=== PATIENT | female | born 1955 | race Caucasian/White ===

== ENCOUNTER → 2016-08-28 | Outpatient (CLI) | payer MEDICARE, OTHER ==
[2016-08-28 12:39] VITALS: BP 205/85; PULSE 109; RESP 16; TEMP 98.3
--- NOTE | 2016-08-28 12:48 | P.PN ---
Subjective This is follow-up visit for this patient with a history of severe and chronic low back pain secondary to lumbar degenerative disc disease, lumbar facet arthropathy, right sacroiliitis, failed back surgery syndrome and lumbar area, we have done interventional pain management injection, right sacroiliac joint steroid injection and diagnostic medial branch block, both procedure did not help the pain, and is currently on pain medications 1- misconduct and 30 mg every 8 hours 2- Neurontin 300 mg 3 times a day 3voltalance pham Patient reported that she had side effects from the Neurontin which is causing severe diarrhea every time she takes, , denies excessive drowsiness or sleepiness, denies suicidal ideation, and reports that the current pain medication is NOT helping To control the pain and improve activity of daily living Physical Examinations : 1-Constitutiona : Cooperative , not in acute distress . 2-HEENT : nech ; supple , no Lymphadenopathy , no Thyromegaly , normal thyroid size . eyes : no ptosis , no icterus, no photophobia . ENT : normal of hearing , normal oropharynx , no Thrush . 3- Respiratory : Chest clear to auscultations Bilaterally , no wheezing , no Rhonchi . 4- Cardiovascular : regular rate and rhythem , S1 , S2 , no S3 , no S4. 5- Gastrointestinal : abdomen soft no tenderness , bowel sounds positive all four quadrents , no organomegally . 6- Genitourinary : Defferred . 7- neurologic : Cranial nerve II to XII intact , no focal neurological deffecit . 8-psychatric : alert , oriented X 3 , appropriate affect , intact judgment and insight . 9-Lymphatic : no Lymphadenopathy . 10- musculoskeltal : exams of the cervical spine = motor strength normal bilateral upper extremities facet loading test cervical area positive. exams of the Lumber spine = motor strength lower extremities ,thigh and legs .5/5 deep tendon reflexes : normal Knee Jerk , normal ankle Jerk . lumber facet Loading Test positive strait leg raising test positive at 30 degree , RT ,LT , Fabere test positive RT and positive LT . Range of motion: Range of motion in flexion of the lumbar spine 30 degrees Range of motion range of motion of extension of the lumbar spine 10 Sever tenderness over the Sacroiliac joint on the Right , Assessment and plan = - Chronic low back pain secondary to lumbar degenerative disc disease , lumbar spondylosis with facet arthropathy without myelopathy , right sacroiliitis and failed back surgery syndrome and lumbar area, she had no benefit from the diagnostic medial branch block lumbar area and she had no benefit from the right sacroiliac joint steroid injection, she had side effects from the Neurontin which is causing diarrhea -chronic and current use of high-risk medication (Opioids). The patient was counseled about risk of opioid use, psychological risk associated with opioids and was orally counseled to not overuse , abuse , divert ,or sell dictations to take medications as prescribed only , and to restore medication in safe location , and patient counseled against driving while using narcotic medications, and also not to use alcohol or any illicit recreational drugs the patient's verbalized understanding that the lack of compliance will result in failure to renew narcotic prescription and possible discharge from the clinic - diagnoses, prognosis, and treatment options including but not limited to physical therapy, surgical interventions, interventional therapies and medication management including narcotics and adjuvant medication were discussed with the patient and all questions answered to the patient's satisfaction. -medication refile =1- MS Contin 30 mg every 8 hours dispense 90 with 1 refill 2-discontinue Neurontin 3-start patient on Lyrica 50 mg every 8 hours dispense 90 with 1 refill, 4-refill Voltaren gel Objective - Vital Signs Vital signs: Vital Signs Temp 98.3 F 08/28/16 12:30 Pulse 109 H 08/28/16 12:30 Resp 16 08/28/16 12:30 BP 205/85 08/28/16 12:30 Pulse Ox 96 08/28/16 12:30 Intake & Output 08/27/16 08/28/16 08/28/16 18:59 06:59 18:59 Weight 118.841 kg
== END | disposition home or self-care (01) ==
LOC: PNWHC3 11:52
PROVIDERS: ATTEND Specialist
DX: M51.36 Other intervertebral disc degeneration, lumbar region (principal); M47.816 Spondylosis without myelopathy or radiculopathy, lumbar region; M46.96 Unspecified inflammatory spondylopathy, lumbar region; M46.1 Sacroiliitis, not elsewhere classified; M96.1 Postlaminectomy syndrome, not elsewhere classified; Z79.891 Long term (current) use of opiate analgesic; K52.1 Toxic gastroenteritis and colitis; T42.6X5A Adverse effect of other antiepileptic and sedative-hypnotic drugs, initial encounter
CPT/HCPCS: 99211

== ENCOUNTER → 2016-10-04 | Outpatient (CLI) | payer MEDICARE, OTHER ==
--- NOTE | 2016-10-04 17:04 | MR ---
EXAMINATION TYPE: MR cervical spine wo con DATE OF EXAM ORDERED: 10/04/2016 1:38 PM HISTORY: M50.20 HNP. TECHNOLOGIST HISTORY AT TIME OF EXAM: Neck, and Rt. Shoulder pain COMPARISON: None. TECHNIQUE: Multiplanar, multiecho imaging of the cervical spine was obtained without contrast on a 1 .5 john magnet. FINDINGS: This examination is compromised by patient motion artifact. Prevertebral soft tissues are normal. There is a mild retrolisthesis of C5 on C6. Vertebral body height and alignment otherwise maintained. There are normal atlantoaxial relationships. There is normal craniocervical junction. Cord signal is normal. At C2-C3, no definite abnormality is seen. At C3-C4, there is bilateral intervertebral foraminal narrowing. There is a mild, diffuse disc displa cement. There is uncovertebral joint disease. The facets are unremarkable. At C4-C5, there is right-sided intervertebral foraminal narrowing due to uncovertebral joint disease. There is a diffuse disc displacement. The facets are unremarkable. At C5-C6, there is disc space loss and hypertrophic spondylosis. There is a mixed spondylitic bar pre sent posteriorly deforming the thecal sac with cord contact but without compression. There is severe intervertebral foraminal narrowing, greater on the right than the left. There is uncovertebral joint disease. The facets are unremarkable. At C6-C7, there is disc space loss. There is hypertrophic spondylosis. There is fatty endplate change . There is bilateral intervertebral foraminal narrowing. There is a mixed spondylitic bar present pos teriorly with cord contact but without compression. There is uncovertebral joint disease. The facets are unremarkable. At C7-T1, no definite abnormality is seen. IMPRESSION: 1. DIFFUSE DEGENERATIVE DISC DISEASE. 2. HYPERTROPHIC SPONDYLOSIS C5-6 AND C6-7. 3. MIXED SPONDYLITIC BAR IS PRESENT AT C5-6 AND C6-7 WITH CORD CONTACT WITHOUT COMPRESSION. 4. MULTILEVEL INTERVERTEBRAL FORAMINAL NARROWING.
== END | disposition home or self-care (01) ==
LOC: RADMRIMAIN 12:11
PROVIDERS: ATTEND Orthopaedic Surgery
DX: M99.71 Connective tissue and disc stenosis of intervertebral foramina of cervical region (principal); M50.30 Other cervical disc degeneration, unspecified cervical region; M47.812 Spondylosis without myelopathy or radiculopathy, cervical region
CPT/HCPCS: 36415; 72141; 80053; 80061; 82043

== ENCOUNTER → 2016-10-04 | Outpatient (CLI) | payer MEDICARE, OTHER ==
[2016-10-04 14:46] LABS: ALT 95 U/L (9-52); AST 47 U/L (14-36); Alkaline Phosphatase 195 U/L (38-126); Anion Gap 10 mmol/L; Blood Urea Nitrogen 19 mg/dL (7-17); Calcium 9.1 mg/dL (8.4-10.2); Carbon Dioxide 28 mmol/L (22-30); Chloride 97 mmol/L (98-107); Cholesterol 201 mg/dL (<200); Glucose 165 mg/dL (74-99); HDL Cholesterol 63 mg/dL (40-60); Non-African American GFR(MDRD) >60 (>60 ml/min/1.73 sqM); Potassium 5.1 mmol/L (3.5-5.1); Sodium 135 mmol/L (137-145); Total Bilirubin 0.5 mg/dL (0.2-1.3); Total Protein 7.2 g/dL (6.3-8.2); Triglycerides 150 mg/dL (<150)
== END | disposition home or self-care (01) ==
LOC: LABWHC1 13:57
PROVIDERS: ATTEND Internal Medicine Endocrinology, Diabetes & Metabolism
DX: E11.65 Type 2 diabetes mellitus with hyperglycemia (principal)
CPT/HCPCS: 36415; 80053; 80061; 82043

== ENCOUNTER → 2016-10-23 | Outpatient (CLI) | payer MEDICARE, OTHER ==
[2016-10-23 13:46] VITALS: BP 193/90; PULSE 78; RESP 20
--- NOTE | 2016-10-23 14:14 | P.PN ---
Progress Note - Text Patient returns for followup for chronic neck and back pain with radiation to right arm and left leg. Patient recently underwent MRI cervical spine, results of which are below. Patient continues on MSContin medications for pain with good relief. Patient denies adverse drug effects from medications. Today, pt denies new-onset weakness, bowel/bladder incontinence, or any other signs or symptoms of cauda equina syndrome. There are no signs of acute intoxication, and no indications of medication diversion or overuse. In addition to above, 13-point review of systems is also negative for chest pain , shortness of breath, changes in vision, changes in hearing, new onset weakness , abdominal pain, diarrhea, extreme fatigue, malaise, fever, skin changes, homicidal or suicidal ideation, or bowel or bladder incontinence. Vital Signs: Reviewed in EMR Gen: WDWN, AAOx3, NAD HEENT: NCAT, EOMI, hearing grossly normal Pulm: resp unlabored Abd: soft, NT, ND Neck: supple, trachea midline ROM in flexion cervical spine: reduced ROM in extension cervical spine: reduced Cervical paravertebral tenderness: + Cervical Facet tenderness: + R side Spurling's: + RUE Upper extremity: decreased major gifts director strength due to pain Neuro: CN II-XII grossly intact, muscle strength lower extremities PRESERVED Imaging: MRI cervical spine demonstrates bilateral intervertebral foraminal narrowing at the C3-C4 level with a mild diffuse disc displacement there is uncovertebral joint disease. At the C4-C5 level there is right-sided intervertebral foraminal narrowing due to onto uncovertebral joint disease there is a diffuse disc displacement. At the C5-C6 level there is disc space loss and hypertrophic spondylosis is a mixed spondylitic bar present posteriorly deforming the thecal sac with cord contact without compression Assessment: 1. lumbar spondylosis without myelopathy 2. cervical spondylosis without myelopathy 3. lumbar PLPS 4. morbid obesity Plan: 1. Explanation: Opioid and psychological risk scores were reviewed. Diagnoses , prognoses, and multiple treatment options including but not limited to physical therapy, interventional therapies, adjuvant medical therapies, narcotic medication therapies, and surgery were discussed with the patient and all questions were answered to the patient's satisfaction. 2. Opioid agreement: Patient has previously signed narcotic agreement, and was orally counseled to not overuse, abuse, divert, or cell medications, and to take them as prescribed by only 1 healthcare provider. The patient was also counseled to store opioid medications in a safe and preferably locked location. Patient was also counseled against driving or operating heavy equipment while using narcotic medications and also to not use alcohol or any illicit or recreational drugs. The patient verbalized understanding that lack of compliance with any of the above and likely result in failure to renew narcotic prescriptions, possible discharge from the clinic, and possible legal ramifications thereafter if indicated. 3. Counseling: The patient was counseled extensively on BODY MASS INDEX, EXERCISE. Specifically, the patient was instructed regarding the importance of weight control and exercise in the context of both chronic pain and overall health. 4. Procedures: R cervical MBB 5. Consultations: None 6. Investigations: None 7. Medications: MSContin 30 mg q8h #90 with one refill; added Zanaflex 8 mg # 90 with two refills 8. Disposition: f/u for procedure as scheduled PQRS measures: 1-Patient's medications are documented in the chart. 2-Tobacco use is negative 3-Patient has had a pneumococcal vaccine. 4-Advanced care planning discussed, patient unable to give. 5-Opioid contract signed with the patient. 6-Pain positive, follow-up visit or procedure scheduled 7-Patient's blood pressure measured and documented, and patient will follow up with the primary care due to hypertension. 8-Patient's weight was measured, and body mass index ABOVE the normal limits, and counseling was done. Patient instructed to follow up with PCP. 9-Patient WAS NOT identified as an unhealthy alcohol user.
== END | disposition home or self-care (01) ==
LOC: PNWHC3 13:20
PROVIDERS: ATTEND Anesthesiology
DX: G89.29 Other chronic pain (principal); M47.816 Spondylosis without myelopathy or radiculopathy, lumbar region; M47.812 Spondylosis without myelopathy or radiculopathy, cervical region; E66.01 Morbid (severe) obesity due to excess calories; M96.1 Postlaminectomy syndrome, not elsewhere classified; Z71.3 Dietary counseling and surveillance; Z79.891 Long term (current) use of opiate analgesic
CPT/HCPCS: 80307 ×2; G0463; 80346; 80364; 99211

== ENCOUNTER 2016-10-25 12:01 | Day surgery (SDC) | payer MEDICARE, OTHER ==
[~2016-10-25 12:01] MED LIST: LACTATED RINGERS 1,000 ML IV SCH
[2016-10-25] MEDS ORDERED: LIDOCAINE 1% 20 ML VIAL (10MG/ML) FOR IV START INTRADERMA ONE (13:22)
[2016-10-25 13:26] VITALS: RESP 20; TEMP 98
[2016-10-25 13:28] LABS: Glucose,Whole Blood 151 mg/dL (75-99)
[2016-10-25] MEDS ORDERED: fentaNYL (PF) 50 MCG/ML 2 ML AMP ONE (13:39)
[2016-10-25] MEDS ORDERED: MIDAZOLAM 2 MG/2 ML VIAL ONE (13:39)
[2016-10-25] MEDS ORDERED: DEXAMETHASONE SOD PHOS (MDV) 100 MG/10 ML VIAL ONE (13:39)
[2016-10-25] MEDS ORDERED: BUPIVACAINE (PF) 0.25% 30 ML VIAL ONE (13:39)
--- NOTE | 2016-10-25 14:12 | P.PCN ---
Date of Procedure: 10/25/16 Surgeon: Fredi Oh Pathology: none sent Condition: stable Disposition: PACU Description of Procedure: PREOPERATIVE DIAGNOSIS: Cervical spondylosis without myelopathy, cervicogenic headache. POSTOPERATIVE DIAGNOSIS: same PROCEDURES: Diagnostic right C3, C4, C5 medial branch with fluoroscopic guidance ANESTHESIA: Local with 1% lidocaine; conscious sedation EBL: Minimal PROCEDURE INDICATION: This is a patient with neck pain and headaches secondary to cervical arthropathy unresponsive to more conservative treatments. No use of blood thinners. PROCEDURE DESCRIPTION / TECHNIQUE: The patient was seen and identified in the preoperative area. Risks, benefits, complications, and alternatives were discussed with the patient (including but not limited to incomplete pain relief , bleeding, infection, nerve damage, and allergies to medications), the patient agreed to proceed with the procedure and signed the consent after all questions were answered. IV was started. Vital signs remained stable throughout the procedure. Patient was taken to the OR and time out was completed. The patient was placed in the prone position on the procedure table. A pillow was placed under the patients chest to increase the cervical interlaminar space. The cervical area was prepped and draped in the usual sterile fashion. Critical pause was taken. Vital signs were closely monitored during the procedure. Conscious sedation was used during the procedure to decrease patients anxiety. Using cross-table lateral fluoroscopy, the centroid of the trapezoid of right C3 , was identified, marked, and localized with 1% lidocaine. Subsequently, a 25 G spinal needle was advanced guided by fluoroscopy to the centroid of the trapezoid of C3. Needle tip position was confirmed at the centroid of the trapezoids of C3 with anteroposterior fluoroscopy. Subsequently, 1 ml of a combination of 10 mg Decadron and 6 ml of preservative-free Bupivacaine 0.5% was injected after negative aspiration for blood and CSF. Needle was then removed intact the same procedure was repeated at the right C4 and C5 levels. COMPLICATIONS: No acute complications. COMMENTS: DISPOSITION / PLANS: The patient was placed in a supine position and transferred to the recovery area in a stable condition for observation and was discharged from the recovery room after meeting discharge criteria. Home discharge instructions given to the patient by the staff. The patient was reexamined prior to discharge. The patient will schedule a follow up cervical MBB in 3-4 weeks. Of note, patient's BP was extremely elevated today (>220 systolic) even before start of procedure. I told patient that she will need to have this SBP < 180 or DBP < 120 in order for us to repeat the MBB.
[2016-10-25] MEDS ORDERED: KETOROLAC 30 MG/ML 1 ML VIAL IVP STA (14:14)
[2016-10-25] MEDS ORDERED: IV FLUID CONTINUATION 1,000 ML IV ONE (14:17)
[2016-10-25 14:31] LABS: Glucose,Whole Blood 177 mg/dL (75-99)
[2016-10-25 15:05] VITALS: BP 172/90; PULSE 80
--- NOTE | 2016-10-25 15:26 | FL ---
Fluoroscopy INDICATION: Pain FINDINGS: Fluoroscopy time: 29 seconds. Images obtained: 3. IMPRESSIONS: 1. Documentation of fluoroscopy.
== END 2016-10-25 15:27 | disposition home or self-care (01) ==
LOC: ORPAIN 12:01
PROVIDERS: ATTEND Anesthesiology
DX: G89.29 Other chronic pain (principal); M47.812 Spondylosis without myelopathy or radiculopathy, cervical region; M46.92 Unspecified inflammatory spondylopathy, cervical region; Z79.891 Long term (current) use of opiate analgesic
CPT/HCPCS: 64490; 64491; 64492; 99152; J2250; J3010; J1885; J1100

== ENCOUNTER 2016-12-18 06:20 | Inpatient (IN) | payer MEDICARE, OTHER ==
[2016-12-18] MEDS ORDERED: ONDANSETRON 4 MG/2 ML VIAL IVP STA ×2 (06:23→09:05)
[2016-12-18] MEDS ORDERED: SODIUM CHLORIDE 0.9% 1,000 ML IV STA ×2 (06:23)
[2016-12-18] MEDS ORDERED: MORPHINE SULFATE 4 MG/ML SYRINGE IVP STA ×2 (06:51→11:51)
[2016-12-18 06:53] LABS: Basophils # (A) 0.1 k/uL (0-0.2); Basophils % (A) 1 %; CH 28.2; CHCM 34.5; Eosinophils # (A) 0.1 k/uL (0-0.7); Eosinophils % (A) 1 %; HCT 47.2 % (34.0-46.0); HDW 2.88; HGB 16.2 gm/dL (11.4-16.0); Luc % (Auto) 1; Lymphocytes # (A) 1.7 k/uL (1.0-4.8); Lymphocytes % (A) 13 %; MCH 28.2 pg (25.0-35.0); MCHC 34.3 g/dL (31.0-37.0); Mean Platelet Volume 7.8; Monocytes # (A) 0.5 k/uL (0-1.0); Monocytes % (A) 4 %; Neutrophils # (A) 11.2 k/uL (1.3-7.7); Neutrophils % (A) 81 %; RBC 5.75 m/uL (3.80-5.40); RDW 13.5 % (11.5-15.5); WBC 13.7 k/uL (3.8-10.6); WBC (Perox) 13.43
[2016-12-18 06:54] LABS: Luc # (Auto) 0.19
--- NOTE | 2016-12-18 06:56 | ED ---
ENT HPI - General Source: patient, EMS, RN notes reviewed Mode of arrival: EMS Limitations: no limitations - History of Present Illness MD complaint: sore throat, other <Dany Torre - Last Filed: 12/18/16 06:56> <José Miguel Coker - Last Filed: 12/18/16 11:46> - General Chief complaint: ENT Stated complaint: Vomiting Blood Time Seen by Provider: 12/18/16 06:20 - History of Present Illness Initial comments: This is a 61-year-old female with a history of having anterior cervical fusion on the left side done 6 days ago who states she had the onset last night around 9 PM of multiple episodes of nausea and vomiting. She came in by EMS due to a sore throat and the feeling that there is a foreign body in his throat also she threw up some blood. She states that the feeling of a foreign body in her throat and the sore throat started after the multiple episodes of nausea vomiting. She denies any fever chills or sweats no abdominal pain. She does have chronic pain in her back which she states it escalated because of nausea vomiting. She has no focal weakness no cough or phlegm production. No reported dysuria. No diarrhea or constipation. (Dany Torre) - Related Data Home Medications Medication Instructions Recorded Confirmed Butalb/Acetaminophen/Caffeine 1 tab PO BID PRN 04/11/14 12/18/16 [Fioricet 50-325-40 mg Tablet] INSULIN LISPRO (humaLOG) [humaLOG See Protocol SQ AC-TID PRN 04/14/14 12/18/16 (formulary)] Budesonide-Formot 160-4.5 Mcg 2 puff INHALATION BID PRN 10/25/15 12/18/16 [Symbicort 160-4.5 Mcg Inhaler] Lisinopril [Zestril] 40 mg PO DAILY 04/04/16 12/18/16 Diazepam [Valium] 10 mg PO BID PRN 05/02/16 12/18/16 Insulin Glargine [Lantus] 20 unit SQ HS 05/02/16 12/18/16 Hydrocodone/Acetaminophen [[place] 1 tab PO DAILY PRN 12/18/16 12/18/16 10-325] tiZANidine [Zanaflex] 4 mg PO BID PRN 12/18/16 12/18/16 Previous Rx's Medication Instructions Recorded Morphine Sulfate [Ms Contin] 30 mg PO Q8HR #90 tab 10/23/16 Allergies Allergy/AdvReac Type Severity Reaction Status Date / Time ibuprofen [From Motrin] AdvReac Abdominal Verified 12/18/16 07:27 Pain and vomiting Review of Systems ROS Other: All systems not noted in ROS Statement are negative. <NichoDany - Last Filed: 12/18/16 06:56> ROS Other: All systems not noted in ROS Statement are negative. <José Miguel Coker - Last Filed: 12/18/16 11:46> ROS Statement: Those systems with pertinent positive or pertinent negative responses have been documented in the HPI. Past Medical History Past Medical History: Asthma, COPD, Diabetes Mellitus, GERD/Reflux, Hyperlipidemia, Hypertension Additional Past Medical History / Comment(s): Chronic back pain, MIGRAINE HEADACHES History of Any Multi-Drug Resistant Organisms: MRSA Date of last positivie culture/infection: 2011 MDRO Source:: UNK Past Surgical History: Appendectomy, Back Surgery, Cholecystectomy, Orthopedic Surgery Additional Past Surgical History / Comment(s): Fusion and kane down back. Left shoulder replacement, right knee replacement, plate in right wrist, left thumb joint repair, right carpal tunnel repair, right shoulder scope, Past Anesthesia/Blood Transfusion Reactions: No Reported Reaction Past Psychological History: Bipolar Smoking Status: Former smoker Past Alcohol Use History: None Reported Additional Past Alcohol Use History / Comment(s): SMOKED 1PPD . STARTED SMOKING AGE 17 AND QUIT 1981. SMOKED FOR APPROX 10 YEARS. Past Drug Use History: None Reported - Past Family History Brother(s) Family Medical History: Cancer Father Family Medical History: Cancer Additional Family Medical History / Comment(s): throat, colon, liver, and brain cancer. Mother Family Medical History: Myocardial Infarction ([place]) Additional Family Medical History / Comment(s): at 54 of [place]. <NichoDany - Last Filed: 12/18/16 06:56> General Exam Limitations: no limitations General appearance: alert, anxious, in distress ENT exam: Present: mucous membranes dry, other (There is posterior pharyngeal erythema with some edema seen with erythema to the uvula) Neck exam: Present: other (There is a healing surgical incision in the left anterior neck laterally consistent with an anterior approach to his cervical fusion) Cardiovascular Exam: Present: normal rhythm, tachycardia GI/Abdominal exam: Present: soft, other (Obese abdomen) Rectal exam: Present: deferred Neurological exam: Present: alert, oriented X3, CN II-XII intact. Absent: motor sensory deficit Psychiatric exam: Present: anxious Skin exam: Present: warm, dry, intact, normal color, other (Surgical changes as noted above no evidence of any infection or discharge or dehiscence). Absent: rash <Dany Torre - Last Filed: 12/18/16 06:56> <José Miguel Coker - Last Filed: 12/18/16 11:46> - General Exam Comments Initial Comments: Is a well-developed obese female who is awake alert oriented 3 (Dany Torre) Course <Dany Torre - Last Filed: 12/18/16 06:56> <José Miguel Coker - Last Filed: 12/18/16 11:46> Vital Signs 12/18/16 12/18/16 12/18/16 06:21 09:17 09:48 Temperature 97.7 F Pulse Rate 116 H 108 H 105 H Respiratory 20 18 20 Rate Blood Pressure 200/116 158/76 138/69 O2 Sat by Pulse 96 92 L 92 L Oximetry 12/18/16 12/18/16 12/18/16 10:16 10:46 11:09 Temperature 97.5 F L Pulse Rate 104 H 100 101 H Respiratory 18 Rate Blood Pressure 135/63 139/71 151/65 O2 Sat by Pulse 92 L 93 L 92 L Oximetry - Reevaluation(s) Reevaluation #1: 12/18/16 06:56 The patient's care will be endorsed to Dr. Massey at our shift change. He will make the final disposition (Dany Torre) Medical Decision Making - Lab Data Result diagrams: 12/18/16 06:40 <Dany Torre - Last Filed: 12/18/16 06:56> - Lab Data Result diagrams: 12/18/16 06:40 12/18/16 06:40 <José Miguel Coker - Last Filed: 12/18/16 11:46> - Medical Decision Making I spoke with the radiologist he did not believe this mass in the hypopharynx was at all related to surgery. (José Miguel Coker) - Lab Data Lab Results 12/18/16 12/18/16 12/18/16 Range/Units 06:40 06:40 06:40 WBC 13.7 H (3.8-10.6) k/uL RBC 5.75 H (3.80-5.40) m/uL Hgb 16.2 H (11.4-16.0) gm/dL Hct 47.2 H (34.0-46.0) % MCV 82.0 (80.0-100.0) fL MCH 28.2 (25.0-35.0) pg MCHC 34.3 (31.0-37.0) g/dL RDW 13.5 (11.5-15.5) % Plt Count 222 (150-450) k/uL Neutrophils % 81 % Lymphocytes % 13 % Monocytes % 4 % Eosinophils % 1 % Basophils % 1 % Neutrophils # 11.2 H (1.3-7.7) k/uL Lymphocytes # 1.7 (1.0-4.8) k/uL Monocytes # 0.5 (0-1.0) k/uL Eosinophils # 0.1 (0-0.7) k/uL Basophils # 0.1 (0-0.2) k/uL PT 10.6 (9.0-12.0) sec INR 1.1 (<1.1) APTT 22.5 (22.0-30.0) sec Sodium 139 (137-145) mmol/L Potassium 4.5 (3.5-5.1) mmol/L Chloride 96 L (98-107) mmol/L Carbon Dioxide 29 (22-30) mmol/L Anion Gap 14 mmol/L BUN 14 (7-17) mg/dL Creatinine 0.94 (0.52-1.04) mg/dL Est GFR (MDRD) Af Amer >60 (>60 ml/min/1.73 sqM) Est GFR (MDRD) Non-Af >60 (>60 ml/min/1.73 sqM) Glucose 298 H (74-99) mg/dL Calcium 9.6 (8.4-10.2) mg/dL Total Bilirubin 0.7 (0.2-1.3) mg/dL AST 22 (14-36) U/L ALT 42 (9-52) U/L Alkaline Phosphatase 215 H (38-126) U/L Total Protein 7.4 (6.3-8.2) g/dL Albumin 4.2 (3.5-5.0) g/dL Amylase 98 (30-110) U/L Lipase 89 (23-300) U/L Urine Color Urine Appearance (Clear) Urine pH (5.0-8.0) Ur Specific [place] (1.001-1.035) Urine Protein (Negative) Urine Glucose (UA) (Negative) Urine Ketones (Negative) Urine Blood (Negative) Urine Nitrite (Negative) Urine Bilirubin (Negative) Urine Urobilinogen (<2.0) mg/dL Ur Leukocyte Esterase (Negative) Urine RBC (0-5) /hpf Urine WBC (0-5) /hpf Ur Squamous Epith Cells (0-4) /hpf Urine Mucus (None) /hpf 12/18/16 Range/Units 07:20 WBC (3.8-10.6) k/uL RBC (3.80-5.40) m/uL Hgb (11.4-16.0) gm/dL Hct (34.0-46.0) % MCV (80.0-100.0) fL MCH (25.0-35.0) pg MCHC (31.0-37.0) g/dL RDW (11.5-15.5) % Plt Count (150-450) k/uL Neutrophils % % Lymphocytes % % Monocytes % % Eosinophils % % Basophils % % Neutrophils # (1.3-7.7) k/uL Lymphocytes # (1.0-4.8) k/uL Monocytes # (0-1.0) k/uL Eosinophils # (0-0.7) k/uL Basophils # (0-0.2) k/uL PT (9.0-12.0) sec INR (<1.1) APTT (22.0-30.0) sec Sodium (137-145) mmol/L Potassium (3.5-5.1) mmol/L Chloride (98-107) mmol/L Carbon Dioxide (22-30) mmol/L Anion Gap mmol/L BUN (7-17) mg/dL Creatinine (0.52-1.04) mg/dL Est GFR (MDRD) Af Amer (>60 ml/min/1.73 sqM) Est GFR (MDRD) Non-Af (>60 ml/min/1.73 sqM) Glucose (74-99) mg/dL Calcium (8.4-10.2) mg/dL Total Bilirubin (0.2-1.3) mg/dL AST (14-36) U/L ALT (9-52) U/L Alkaline Phosphatase (38-126) U/L Total Protein (6.3-8.2) g/dL Albumin (3.5-5.0) g/dL Amylase (30-110) U/L Lipase (23-300) U/L Urine Color Yellow Urine Appearance Clear (Clear) Urine pH 6.5 (5.0-8.0) Ur Specific [place] 1.019 (1.001-1.035) Urine Protein 1+ H (Negative) Urine Glucose (UA) Trace H (Negative) Urine Ketones 1+ H (Negative) Urine Blood Negative (Negative) Urine Nitrite Negative (Negative) Urine Bilirubin Negative (Negative) Urine Urobilinogen 2.0 (<2.0) mg/dL Ur Leukocyte Esterase Negative (Negative) Urine RBC <1 (0-5) /hpf Urine WBC 2 (0-5) /hpf Ur Squamous Epith Cells 5 H (0-4) /hpf Urine Mucus Rare H (None) /hpf Disposition <Dany Torre - Last Filed: 12/18/16 06:56> Time of Disposition: 11:44 <José Miguel Coker - Last Filed: 12/18/16 11:46> Clinical Impression: Mass of hypopharynx, Nausea & vomiting Disposition: ADMITTED IP TO THIS HOSP Referrals: Scarlet Dior MD [Primary Care Provider] - 1-2 days
[2016-12-18 07:03] LABS: INR 1.1 (<1.1); Prothrombin Time 10.6 sec (9.0-12.0)
[2016-12-18 07:05] LABS: ALT 42 U/L (9-52); AST 22 U/L (14-36); Alkaline Phosphatase 215 U/L (38-126); Amylase 98 U/L (30-110); Anion Gap 14 mmol/L; Blood Urea Nitrogen 14 mg/dL (7-17); Calcium 9.6 mg/dL (8.4-10.2); Carbon Dioxide 29 mmol/L (22-30); Chloride 96 mmol/L (98-107); Glucose 298 mg/dL (74-99); Non-African American GFR(MDRD) >60 (>60 ml/min/1.73 sqM); Potassium 4.5 mmol/L (3.5-5.1); Sodium 139 mmol/L (137-145); Total Bilirubin 0.7 mg/dL (0.2-1.3); Total Protein 7.4 g/dL (6.3-8.2)
[2016-12-18 07:11] LABS: Partial Thromboplastin Time 22.5 sec (22.0-30.0)
--- NOTE | 2016-12-18 07:30 | XR ---
EXAMINATION TYPE: XR chest 2V DATE OF EXAM: 12/18/2016 7:10 AM COMPARISON: Prior chest x-ray September 05, 2015. HISTORY: Vomiting and pain. TECHNIQUE: Frontal and lateral views of the chest are obtained. FINDINGS: Diminished inspiration is seen. There is no focal air space opacity, pleural effusion, or p neumothorax seen. The cardiac silhouette size is upper limits of normal. Anterior fusion plate lower cervical spine is partially imaged new from prior. Metallic hardware left shoulder level is partiall y imaged. IMPRESSION: Poor inspiration without suspicious acute pulmonary process.
--- NOTE | 2016-12-18 07:32 | XR ---
EXAMINATION TYPE: XR KUB DATE OF EXAM: 12/18/2016 7:10 AM CLINICAL HISTORY: Pain and vomiting. TECHNIQUE: 2 supine KUB images of the abdomen are obtained COMPARISON: CT abdomen and pelvis April 04, 2016 FINDINGS: Gas is seen in nondistended stomach. Scattered gas is seen in non-distended small bowel lo ops. Gas and fecal material is seen in non-distended colon. Cholecystectomy clips are redemonstrated . Surgical changes lumbosacral junction are again seen. Spurring upper lumbar spine is redemonstrated . IMPRESSION: Overall nonobstructive bowel gas pattern.
--- NOTE | 2016-12-18 07:34 | XR ---
EXAMINATION TYPE: XR soft tissue neck DATE OF EXAM: 12/18/2016 7:10 AM COMPARISON: NONE HISTORY: Recent neck surgery with dysphagia. TECHNIQUE: 2 views of soft tissue neck are acquired. FINDINGS: There is anterior fusion plate C5-C7 levels with high dense disc material. There is abnorm al prevertebral soft tissue swelling at 27 mm, nonspecific finding could reflect edema related to rec ent surgery. Region of epiglottis and vallecula appears within normal limits. No suspicious narrowing of subglottic airway is seen on frontal view. IMPRESSION: Abnormal soft tissue swelling mid to lower cervical levels noted, nonspecific finding af ter recent surgery. Airway appears patent.
[2016-12-18 07:58] LABS: Appearance,Urine Clear (Clear); Bilirubin,Urine Negative (Negative); Glucose,Urine (UA) Trace (Negative); Ketones,Urine 1+ (Negative); Leukocyte Esterase,Urine Negative (Negative); Mucus,Urine Rare /hpf; Nitrite,Urine Negative (Negative); PH, Urine 6.5 (5.0-8.0); Particle Count 4315; Protein,Urine 1+ (Negative); RBC,Urine <1 /hpf (0-5); Specific Gravity,Urine 1.019 (1.001-1.035); Squamous Epithelial Cell,Urine 5 /hpf (0-4); UA Billing (MACRO vs. MICRO) MICRO; WBC,Urine 2 /hpf (0-5)
[2016-12-18] MEDS ORDERED: RX INFO: IV CONTRAST WAS GIVEN 1 EACH MISC MISCELLANE PRN (09:02)
[2016-12-18] MEDS ORDERED: LORazepam 2 MG/ML SYRINGE IV STA (09:05)
[2016-12-18] MEDS ORDERED: HYDROmorphone 1 MG/ML 1 ML SYRINGE IVP STA (09:05)
--- NOTE | 2016-12-18 10:51 | CT ---
EXAMINATION TYPE: CT neck chest w con DATE OF EXAM: 12/18/2016 10:03 AM COMPARISON: Correlation CT cervical spine 05/14/2014 HISTORY: [id number] female with pain and hemoptysis TECHNIQUE: Contiguous axial scanning of the neck and chest performed with IV Contrast, patient inject ed with 100 ml mL of Omnipaque 300. Coronal/sagittal reconstructions reconstructions performed. CT DLP: 1710.10 mGycm Automated exposure control for dose reduction was used. FINDINGS: NECK: Visualized intracranial structures, orbits and globes and mastoid air cells appear clear. There is a polyp or mucosal retention cyst within the right maxillary sinus. Some layering secretions within the posterior nasopharynx. Otherwise, the nasopharynx appears clear. The oropharynx appears clear. However, there is irregular and heterogeneously enhancing soft tissue measuring 2.0 x 1.4 cm in the h ypopharynx extending along the right aryepiglottic fold and mucosal space, effacing the right pirifor m sinus. This extends to the level of the false vocal folds. The vocal fold themselves appear symmetr ic. The tracheal column is clear.. The epiglottis is within normal limits. There is hardware artifact from C5 through C7 ACDF. Thyroid gland, submandibular glands, and parotid glands appear satisfactory. Scattered small cervical lymph nodes are present on both sides of the neck. No enlarged lymph nodes a re identified. CHEST: The heart is normal size without pericardial effusion. Aorta shows conventional arterial vessel branc olvin anatomy and normal caliber. No thoracic lymphadenopathy by CT size criteria. Evaluation of the lungs shows dependent areas of atelectasis. No consolidation or pleural effus ion. There is mild diffuse bronchial wall thickening noted. Visualized upper abdomen show small hiatal hernia and low attenuation of the hepatic parenchyma sugge sting fatty infiltration. There are cholecystectomy clips. Bones: Endplate spondylosis throughout the spine. ACF hardware. Left shoulder replacement. IMPRESSION: 1. A 2 CM IRREGULAR MASS IN THE RIGHT HYPOPHARYNX JUST ABOVE THE LARYNX. SUSPICIOUS FOR CARCINOMA. NO SUSPICIOUS LYMPHADENOPATHY SEEN. 2. MILD DIFFUSE BRONCHIAL WALL THICKENING COULD REPRESENT BRONCHITIS OR CHRONIC ASTHMA. 3. SMALL HIATAL HERNIA AND HEPATIC STEATOSIS.
[2016-12-18] MEDS ORDERED: SODIUM CHLORIDE 0.9% 1,000 ML IV ONE (11:44)
[2016-12-18] MEDS ORDERED: ONDANSETRON 4 MG/2 ML VIAL IVP PRN (11:49)
[2016-12-18] MEDS ORDERED: MORPHINE SULFATE 4 MG/ML SYRINGE IVP PRN (11:51)
[2016-12-18 15:12] VITALS: BMI 42.3
[2016-12-18] MEDS: MORPHINE SULFATE 2 MG/ML SYRINGE IVP PRN ×2 (15:18→20:01)
--- NOTE | 2016-12-18 15:25 | P.GSCN ---
History of Present Illness Consult date: 12/18/16 Reason for Consult: Swelling in throat Requesting physician: Santhosh Nguyen History of present illness: This is a 61-year-old white female who underwent a left cervical disc surgery 6 days ago. She did well after surgery but this last evening started having some vomiting around 7:30 PM. She developed nausea and vomiting and continued to vomit intermittently until 5 in the morning. She was brought to the emergency room at 5 in the morning where she was admitted. She didn't notice a speckling of some blood after the vomiting. Prior to this episode she had no dysphasia. She did have a mild sore throat. Her voice is minimally hoarse. I've been asked to consult regarding her persistent swelling found on CAT scan to rule out malignancy. She denies otherwise any symptoms of dysphagia hemoptysis etc. other than during the episode of severe nausea and vomiting. She has no foreign body sensation in the throat she does not aspirate. She doesn't need to reflux disease. Her cervical disc surgery was done at [facility] 6 days ago. She is been somewhat noncompliant wearing her cervical collar. She is still having some pain between her shoulder blades she states. She does have a history of smoking but quit over 31 years ago. Denies any significant alcohol consumption recently. Review of Systems - Constitutional Denies anorexia - EENT Eyes: denies blurred vision, denies bulging eye, denies discharge, denies pain Ears: bilateral: decreased hearing, deny: ear discharge, earache Ears, nose, mouth and throat: Reports ant. neck pain, Denies bleeding gums, Denies dental pain, Denies nasal congestion, Denies neck fullness/pressure, Denies swelling in mouth - Cardiovascular Denies chest pain, Denies claudication - Respiratory Reports congestion, Denies cough, Denies cough with sputum - Gastrointestinal Denies belching, Denies bloating, Denies BRBPR - Genitourinary Genitourinary: Denies flank pain, Denies hematuria, Denies kidney stones Menstruation: Reports as per HPI - Musculoskeletal Reports neck stiffness - Integumentary Denies acne, Denies boils - Neurological Denies aphasia, Denies ataxia Past Medical History Past Medical History: Asthma, COPD, Diabetes Mellitus, GERD/Reflux, Hyperlipidemia, Hypertension Additional Past Medical History / Comment(s): Chronic back pain, MIGRAINE HEADACHES History of Any Multi-Drug Resistant Organisms: MRSA Year Discovered:: 2011 MDRO Source:: UNK Past Surgical History: Appendectomy, Back Surgery, Cholecystectomy, Orthopedic Surgery Additional Past Surgical History / Comment(s): Fusion and kane down back. Left shoulder replacement, right knee replacement, plate in right wrist, left thumb joint repair, right carpal tunnel repair, right shoulder scope, cervical fusion Past Anesthesia/Blood Transfusion Reactions: No Reported Reaction Past Psychological History: Bipolar Smoking Status: Former smoker Past Alcohol Use History: None Reported Additional Past Alcohol Use History / Comment(s): SMOKED 1PPD . STARTED SMOKING AGE 17 AND QUIT 1981. SMOKED FOR APPROX 10 YEARS. Past Drug Use History: None Reported - Past Family History Brother(s) Family Medical History: Cancer, Myocardial Infarction ([place]) Father Family Medical History: Cancer Additional Family Medical History / Comment(s): throat, colon, liver, and brain cancer. Mother Family Medical History: Myocardial Infarction ([place]) Additional Family Medical History / Comment(s): at 54 of [place]. Medications and Allergies Home Medications Medication Instructions Recorded Confirmed Type Butalb/Acetaminophen/Caffeine 1 tab PO BID PRN 04/11/14 12/18/16 History [Fioricet 50-325-40 mg Tablet] INSULIN LISPRO (humaLOG) [humaLOG See Protocol SQ AC-TID PRN 04/14/14 12/18/16 History (formulary)] Budesonide-Formot 160-4.5 Mcg 2 puff INHALATION BID PRN 10/25/15 12/18/16 History [Symbicort 160-4.5 Mcg Inhaler] Lisinopril [Zestril] 40 mg PO DAILY 04/04/16 12/18/16 History Diazepam [Valium] 10 mg PO BID PRN 05/02/16 12/18/16 History Insulin Glargine [Lantus] 20 unit SQ HS 05/02/16 12/18/16 History Hydrocodone/Acetaminophen [[place] 1 tab PO DAILY PRN 12/18/16 12/18/16 History 10-325] tiZANidine [Zanaflex] 4 mg PO BID PRN 12/18/16 12/18/16 History Allergies Allergy/AdvReac Type Severity Reaction Status Date / Time ibuprofen [From Motrin] AdvReac Abdominal Verified 12/18/16 07:27 Pain and vomiting Surgical - Exam Osteopathic Statement: *. No significant issues noted on an osteopathic structural exam other than those noted in the History and Physical/Consult. Vital Signs Temp Pulse Resp BP Pulse Ox 97.7 F 116 H 20 200/116 96 12/18/16 06:21 12/18/16 06:21 12/18/16 06:21 12/18/16 06:21 12/18/16 06:21 - General well developed, well nourished, obese - Eyes PERRL, normal ocular movement - ENT normal pinna, normal nares - Neck no masses, no bruits - Respiratory normal expansion, normal respiratory effort - Cardiovascular Abnormal Heart Sounds: no systolic murmur, no diastolic murmur - Abdomen Abdomen: non tender, bowel sounds Hernia: no inguinal - Integumentary no rash, no growths - Neurologic normal coordination, normal sensation - Musculoskeletal normal gait - Psychiatric oriented to time, oriented to person, oriented to place, speech is normal Results - Labs 12/18/16 06:40 12/18/16 06:40 Assessment and Plan (1) Acute laryngitis Status: Acute (2) Acute arytenoiditis Narrative/Plan: This patient's significant swelling seen on CAT scan appears to be secondary to her acute arytenoiditis. I do not see any signs of any tumors or masses at this point. The interarytenoid edema was likely is from the intubation and surgery but reflux is strongly suspect. I'm recommending that we utilized full reflux precautions along with omeprazole twice a day. The drainage from her sinuses discolored antibiotics are appropriate. I'll be seeing the patient the office if not improved or it at every 6 month interval. Status: Acute
--- NOTE | 2016-12-18 15:31 | P.OP ---
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 I'm recommending a trial of omeprazole and a recheck in 2-3 weeks. She is to rest with her head elevated. No crunchy foods. No hot foods. I've given her my card and she is to follow- up in my office in 2 weeks after discharge so I can reevaluate her larynx. Operative Findings: Significant interarytenoid edema Description of Procedure: This patient was placed in the upright position and then the NF type GP nasopharyngoscope was inserted into the patient's nose on the left. There is a large scar band on the right and there is evidence of a septal perforation. Septal perforation is relatively large and the septal Band adhesions and synechiae is problematic for airway issues. I did talk to her about the septal perforation and the scar band on the right side of her nose. She tells me that she's had nasal surgery many years in the past in [place]. As we passed by this perforation and right septal band noticing a right septal deviation. The patient had her nasopharynx oropharynx and hypopharynx thoroughly evaluated. There was no pathology of the nasopharynx or oropharynx. There was some interarytenoid pachydermia secondary to reflux disease. There was a small area of the uvula that had a compression necrosis type of injury. There is no signs of any tumors or masses or other pathology.
[2016-12-18 17:04] LABS: Glucose,Whole Blood 281 mg/dL (75-99)
[2016-12-18] MEDS ORDERED: SYMBICORT 160-4.5 MCG INHALER INHALATION PRN (17:09)
[2016-12-18] MEDS: MORPHINE SULFATE ER 30 MG TABLET PO SCH ×2 (17:30→23:51)
[2016-12-18] MEDS: PANTOPRAZOLE 40 MG TABLET PO SCH (17:31)
[2016-12-18] MEDS: INSULIN LISPRO (humaLOG) 300 UNIT/3 ML VIAL SQ SCH ×2 (17:32→21:10)
[2016-12-18] MEDS: DIAZEPAM 5 MG TAB PO PRN ×2 (20:01→23:51)
[2016-12-18 20:16] LABS: Glucose,Whole Blood 276 mg/dL (75-99)
[2016-12-18] MEDS ORDERED: INSULIN GLARGINE 100 UNIT/ML 10 ML VIAL SQ SCH (21:00)
[2016-12-19] MEDS: MORPHINE SULFATE 2 MG/ML SYRINGE IVP PRN ×2 (05:00→11:37)
[2016-12-19 07:28] LABS: Glucose,Whole Blood 205 mg/dL (75-99)
[2016-12-19] MEDS: INSULIN LISPRO (humaLOG) 300 UNIT/3 ML VIAL SQ SCH ×2 (07:49→13:41)
[2016-12-19] MEDS: PANTOPRAZOLE 40 MG TABLET PO SCH (07:51)
[2016-12-19] MEDS: MORPHINE SULFATE ER 30 MG TABLET PO SCH (07:51)
[2016-12-19 08:08] VITALS: BP 159/93; PULSE 86; RESP 18; TEMP 97.9
--- NOTE | 2016-12-19 08:47 | HP ---
DATE OF ADMISSION: 12/18/2016 CHIEF COMPLAINT: Swelling in the throat with hemoptysis. HISTORY OF PRESENT ILLNESS: This is another admission for this 61-year-old white female. She just recently underwent a cervical spine procedure about a week ago . She has had a sore throat ever since and she came in with ( ) she started to cough, spitting up blood. She has never had any history of problems with throat, larynx, esophagus, mouth, etc. REVIEW OF SYSTEMS: She has had no other complaints or problems. She denies any headaches, neurologic problems, chest pain, shortness of breath, heart disease, murmurs, rheumatic fever, orthopnea, heart failure, abdominal pain, food intolerance, indigestion, ulcer disease, esophagitis, hiatal hernia, abdominal pain, jaundice, hepatitis, melena, hematochezia, etc. She has had no urinary complaints and she has had no diabetes. Family history, personal and social histories are unremarkable. She has had 5 pregnancies and 5 children. She does not smoke or drink. She is not allergic to any medication. Her medications include: 1. Valium. 2. Lisinopril. 3. Zanaflex. 4. [place]. 5. Morphine. 6. Fiorinal. Most of her pain problems are related to her back. PHYSICAL EXAMINATION: VITAL SIGNS: Blood pressure 146/72 with a pulse of 87, respirations of 20, and she is afebrile. GENERAL: She appeared to be obese and in no acute distress. SKIN: Skin color is normal. Skin is warm and dry. Lymph nodes not enlarged. Head, ears, eyes, nose, mouth, and throat were normal. NECK: Neck veins not distended. Thyroid is not enlarged. CHEST: Clear. Breath sounds are heard bilaterally. There are no other neck masses. Thyroid is not enlarged. CARDIAC: Normal and demonstrates sinus rhythm with no murmurs or extra sounds. ABDOMEN: Protuberant and soft, nontender and there are no masses. EXTREMITIES: Normal. NEUROLOGICAL: She is intact. IMPRESSION: 1. Throat swelling with blood spitting. 2. Recent cervical spine fusion. 3. History of chronic low back pain. 4. Hypertension. 5. Obesity. PLAN: 1. Bed rest. 2. IV fluids. 3. N.p.o. 4. ENT consult.
[2016-12-19] MEDS ORDERED: LISINOPRIL 20 MG TAB PO SCH (09:00)
[2016-12-19 13:42] LABS: Glucose,Whole Blood 327 mg/dL (75-99)
--- NOTE | 2016-12-19 13:47 | P.DS ---
Providers Date of admission: 12/18/16 11:44 Expected date of discharge: 12/19/16 Attending physician: Santhosh Nguyen Primary care physician: [facility] Course: A 61-year-old female presented on the day of admission to the emergency room with a chief complaint of feeling like she had a sore throat coughing up blood. Patient recently underwent a cervical spine procedure about a week ago she was admitted to the services of the attending. A consultation was requested by ears nose and throat. Patient was found to have persistent swelling on the CAT scan. Does have a history of smoking but quit over 31 years ago. Patient cervical disc surgery was done at [facility] about [address] Adams did see patient on consultation. Recommendations were to utilize full reflex precautions using Prilosec twice a day .Flexible nasopharyngeal laryngoscopy was done on December 18 Interarytenoid edema. Patient tolerated the procedure and was felt to be appropriate to be discharged home. 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 Johanna Meléndez nurse practitioner acting as a scribe for dr nguyen Plan - Discharge Summary New Discharge Prescriptions: Pantoprazole [Protonix] 40 mg PO AC-BID #60 tablet.dr Discharge Medication List Butalb/Acetaminophen/Caffeine [Fioricet 50-325-40 mg Tablet] 1 tab PO BID PRN [History] INSULIN LISPRO (humaLOG) [humaLOG (formulary)] See Protocol SQ AC-TID PRN [History] Budesonide-Formot 160-4.5 Mcg [Symbicort 160-4.5 Mcg Inhaler] 2 puff INHALATION BID PRN 10/25/15 [History] Lisinopril [Zestril] 40 mg PO DAILY 04/04/16 [History] Diazepam [Valium] 10 mg PO BID PRN 05/02/16 [History] Insulin Glargine [Lantus] 20 unit SQ HS 05/02/16 [History] Morphine Sulfate [Ms Contin] 30 mg PO Q8HR #90 tab 10/23/16 [Rx] Hydrocodone/Acetaminophen [[place] 10-325] 1 tab PO DAILY PRN 12/18/16 [History] tiZANidine [Zanaflex] 4 mg PO BID PRN 12/18/16 [History] Pantoprazole [Protonix] 40 mg PO AC-BID #60 tablet. 12/19/16 [Rx] Follow up Appointment(s)/Referral(s): Scarlet Dior MD [Primary Care Provider] - 1-2 days John Adams DO [Doctor of Osteopathic Medicine] - 2 Weeks Activity/Diet/Wound Care/Special Instructions: No hot foods, no crunchy foods, keep head elevated when resting. Discharge Disposition: HOME SELF-CARE
--- NOTE | 2016-12-19 16:02 | PN ---
DATE OF SERVICE: 12/19/2016 CHIEF COMPLAINT: Blood spitting. HISTORY OF PRESENT ILLNESS: This lady is doing well and she has had no further problems. She has not coughed up any more blood. Since this is only due to irritation of the throat, she will be able go home today. PHYSICAL EXAMINATION: CHEST: Clear. CARDIAC: Normal. ABDOMEN: Soft, nontender. IMPRESSION: 1. Blood spitting. 2. Obesity. 3. Hypertension. 4. Status post cervical spine fusion. PLAN: Probably home today. This will be arranged by the nurse practitioner.
== END 2016-12-19 15:30 | disposition home or self-care (01) | DRG 155 ==
LOC: EC 06:20 → SUPCPDRO 06:20 → 5MS5E 11:44
PROVIDERS: ADMIT Family Medicine; ATTEND Family Medicine
PROC: 0CJS8ZZ Inspection of Larynx, Via Natural or Artificial Opening Endoscopic (ICD-10-PCS; principal; 2016-12-18)
DX: J39.2 Other diseases of pharynx (principal); F11.20 Opioid dependence, uncomplicated; I10 Essential (primary) hypertension; E11.9 Type 2 diabetes mellitus without complications; E66.9 Obesity, unspecified; E78.5 Hyperlipidemia, unspecified; G89.29 Other chronic pain; J04.0 Acute laryngitis; J44.9 Chronic obstructive pulmonary disease, unspecified; K21.9 Gastro-esophageal reflux disease without esophagitis; Z79.4 Long term (current) use of insulin; Z79.899 Other long term (current) drug therapy; Z80.8 Family history of malignant neoplasm of other organs or systems; Z82.49 Family history of ischemic heart disease and other diseases of the circulatory system; Z87.891 Personal history of nicotine dependence; Z91.19 Patient's noncompliance with other medical treatment and regimen; Z98.1 Arthrodesis status
CPT/HCPCS: 36415; 70360; 70491; 71020; 71260; 74000; 80053; 81001; 82150; 83036; 83690; 85025; 85610; 85730; 96361; 96374; 96375; 96376; 99285

== ENCOUNTER → 2017-01-29 | Outpatient (CLI) | payer MEDICARE, OTHER ==
[2017-01-29 11:38] VITALS: BP 174/98; PULSE 93; RESP 18; TEMP 97.8
--- NOTE | 2017-01-29 11:55 | P.PN ---
Progress Note - Text Patient returns for followup for chronic neck and back pain with radiation to right arm and left leg, now s/p laminectomy and fusion of the C-spine in November 2016 with improvement in her pain. Patient continues on MSContin and Zanaflex medications for pain with good relief and does not wish to have any more procedures. Patient denies adverse drug effects from medications. Today, pt denies new-onset weakness, bowel/bladder incontinence, or any other signs or symptoms of cauda equina syndrome. There are no signs of acute intoxication, and no indications of medication diversion or overuse. In addition to above, 13-point review of systems is also negative for chest pain , shortness of breath, changes in vision, changes in hearing, new onset weakness , abdominal pain, diarrhea, extreme fatigue, malaise, fever, skin changes, homicidal or suicidal ideation, or bowel or bladder incontinence. Vital Signs: Reviewed in EMR Gen: WDWN, AAOx3, NAD HEENT: NCAT, EOMI, hearing grossly normal Pulm: resp unlabored Abd: soft, NT, ND Neck: supple, trachea midline ROM in flexion cervical spine: reduced ROM in extension cervical spine: reduced Cervical paravertebral tenderness: + Cervical Facet tenderness: + R side Spurling's: + RUE Upper extremity: decreased solvent recoverer strength due to pain Neuro: CN II-XII grossly intact, muscle strength lower extremities PRESERVED Assessment: 1. lumbar spondylosis without myelopathy 2. cervical PLPS 3. lumbar PLPS 4. morbid obesity Plan: 1. Explanation: Opioid and psychological risk scores were reviewed. Diagnoses , prognoses, and multiple treatment options including but not limited to physical therapy, interventional therapies, adjuvant medical therapies, narcotic medication therapies, and surgery were discussed with the patient and all questions were answered to the patient's satisfaction. 2. Opioid agreement: Patient has previously signed narcotic agreement, and was orally counseled to not overuse, abuse, divert, or cell medications, and to take them as prescribed by only 1 healthcare provider. The patient was also counseled to store opioid medications in a safe and preferably locked location. Patient was also counseled against driving or operating heavy equipment while using narcotic medications and also to not use alcohol or any illicit or recreational drugs. The patient verbalized understanding that lack of compliance with any of the above and likely result in failure to renew narcotic prescriptions, possible discharge from the clinic, and possible legal ramifications thereafter if indicated. 3. Counseling: The patient was counseled extensively on BODY MASS INDEX, EXERCISE. Specifically, the patient was instructed regarding the importance of weight control and exercise in the context of both chronic pain and overall health. 4. Procedures: none, patient refuses 5. Consultations: None 6. Investigations: None 7. Medications: MSContin 30 mg q8h #90 with one refill; Zanaflex 4 mg #180 ( two pills three times per day) with two refills 8. Disposition: f/u for re-eval 8 weeks PQRS measures: 1-Patient's medications are documented in the chart. 2-Tobacco use is negative 3-Patient has had a pneumococcal vaccine. 4-Advanced care planning discussed, patient unable to give. 5-Opioid contract signed with the patient. 6-Pain positive, follow-up visit or procedure scheduled 7-Patient's blood pressure measured and documented, and patient will follow up with the primary care due to hypertension. 8-Patient's weight was measured, and body mass index ABOVE the normal limits, and counseling was done. Patient instructed to follow up with PCP. 9-Patient WAS NOT identified as an unhealthy alcohol user.
== END ==
LOC: PNWHC3 11:24
PROVIDERS: ATTEND Anesthesiology
DX: M47.816 Spondylosis without myelopathy or radiculopathy, lumbar region (principal); E66.01 Morbid (severe) obesity due to excess calories; G97.1 Other reaction to spinal and lumbar puncture; G89.29 Other chronic pain; Z79.891 Long term (current) use of opiate analgesic
CPT/HCPCS: 99211

== ENCOUNTER → 2017-02-13 | Outpatient (CLI) | payer MEDICARE, OTHER ==
[2017-02-13 14:04] LABS: EKG EKG PERFORMED
[2017-02-13 14:25] LABS: Blood Urea Nitrogen 23 mg/dL (7-17); Non-African American GFR(MDRD) 55 (>60 ml/min/1.73 sqM); Potassium 4.9 mmol/L (3.5-5.1)
== END | disposition home or self-care (01) ==
LOC: LABPAT 13:18
PROVIDERS: ATTEND Anesthesiology
DX: Z01.810 Encounter for preprocedural cardiovascular examination (principal); Z01.812 Encounter for preprocedural laboratory examination; J39.2 Other diseases of pharynx
CPT/HCPCS: 36415; 82565; 84132; 84520; 93005

== ENCOUNTER 2017-02-14 06:01 | Day surgery (SDC) | payer MEDICARE, OTHER ==
[2017-02-12 10:56] VITALS: BMI 49.4
[~2017-02-14 06:01] MED LIST changes: +ACETAMINOPHEN TAB 500 MG TAB PO ONE; +DEXAMETHASONE SOD PHOSPHATE 10 MG/ML 1 ML VIAL IV ONE; +HYDROmorphone 1 MG/ML 1 ML SYRINGE IVP PRN; +ONDANSETRON 4 MG/2 ML VIAL IVP ONE; +Pre Op ABX Message 1 EACH MISC MISCELLANE ONE
[2017-02-14] MEDS ORDERED: ceFAZolin 2 GM in SODIUM CHLORIDE 0.9% 100 ML IVPB STA (06:09)
[2017-02-14] MEDS: OXYMETAZOLINE 0.05% NASL SPRAY 15 ML NASAL ONE ×2 (06:20→06:30)
[2017-02-14] MEDS ORDERED: OXYMETAZOLINE 0.05% NASL SPRAY 15 ML NASAL ONE (06:25)
[2017-02-14] MEDS ORDERED: LIDOCAINE 1% 20 ML VIAL (10MG/ML) FOR IV START SQ ONE (06:36)
[2017-02-14 06:40] LABS: Glucose,Whole Blood 152 mg/dL (75-99)
[2017-02-14] MEDS ORDERED: PROPOFOL 10 MG/ML 20 ML VIAL IV ONE (07:25)
[2017-02-14] MEDS ORDERED: MIDAZOLAM 2 MG/2 ML VIAL ONE (07:25)
[2017-02-14] MEDS ORDERED: LIDOCAINE 1% INJ 10MG/ML (20 ML MDV) ONE (07:25)
[2017-02-14] MEDS ORDERED: fentaNYL (PF) 50 MCG/ML 2 ML AMP ONE (07:25)
[2017-02-14] MEDS ORDERED: SUCCINYLCHOLINE CHLORIDE VIAL 200 MG/10 ML VIAL IV ONE (07:25)
[2017-02-14] MEDS ORDERED: DEXAMETHASONE SOD PHOS (MDV) 100 MG/10 ML VIAL ONE (07:25)
[2017-02-14] MEDS ORDERED: OXYMETAZOLINE 0.05% NASL SPRAY 15 ML ONE (08:20)
[2017-02-14 08:26] VITALS: TEMP 98.2
--- NOTE | 2017-02-14 08:27 | P.OP ---
Date of Procedure: 02/14/17 Preoperative Diagnosis: Hypopharyngeal mass, cough, dysphagia, nasopharyngeal mass Postoperative Diagnosis: Same Procedure(s) Performed: Triple endoscopy and biopsy, endoscopic nasopharyngeal biopsy Implants: Anesthesia: REBECCA Surgeon: John Adams Estimated Blood Loss (ml): 5 Pathology: other (Right hypopharynx and nasopharynx) Condition: stable Disposition: PACU Indications for Procedure: This patient is a 61-year-old white female who was found have a hypopharyngeal mass on CAT scan. She does have a [id number] history of smoking but quit in 1979. She also had a nasopharyngeal irregularity. Biopsy was recommended. She also complains of some cough and dysphagia. Reflux is problematic for her. Operative Findings: Patient was found to have gastroesophageal reflux disease. A hypopharyngeal enlargement was noted at the level of just above the false cord on the right and a nasopharyngeal lymphoid aggregate that was unusual was also noted. There is evidence of chronic bronchitis with a large amount of secretions from the lungs. Description of Procedure: This patient was taken to the operative room and placed in the supine position. A general inhalation anesthetic was administered to the patient by mask and subsequently intubated with a cuffed endotracheal tube by the department of anesthesia with a functioning IV line in place. The patient was monitored throughout the entire case by the department of anesthesia. Patient is edentulous but a gum guard was placed and a Jako laryngoscope was placed into the patient's mouth with care to avoid any trauma to the lips teeth gums and tongue. Mouth was opened tongue was depressed and the entire Nicola and hypopharynx was evaluated including the base of tongue vallecula epiglottis True and False cords lateral pharynx posterior pharynx post cricoid space subglottic region etc. etc. There was a unusual thickening of the right false cord region and hypopharynx which was biopsied. No other abnormalities were noted. Instrumentation was removed and a bronchoscope was then inserted and all 12 segments of the lungs were evaluated. There was clear evidence of a large amount of white secretions from the lungs evidence of chronic bronchitis there is no evidence of any bronchial lesions. Instrumentation was removed and the esophagoscope was inserted into the right piriform sinus and we went from the upper all the way to the lower esophageal sphincter evaluating the esophagus. The esophagus was evaluated from the upper esophageal sphincter to the lower esophageal sphincter. There is clear evidence of reflux disease but there is no evidence of any other abnormalities. After complete examination of the esophagus from the upper to the lower esophageal sphincter was performed, all instrumentation was removed.
[2017-02-14 08:41] LABS: Glucose,Whole Blood 180 mg/dL (75-99)
[2017-02-14] MEDS ORDERED: HYDROcodone/APAP 5-325MG 1 EACH TAB PO ONE (09:05)
[2017-02-14 09:25] VITALS: RESP 16
[2017-02-14 09:31] VITALS: BP 178/96; PULSE 71
== END 2017-02-14 09:46 | disposition home or self-care (01) ==
LOC: OR 06:01
PROVIDERS: ATTEND Otolaryngology
DX: R13.10 Dysphagia, unspecified (principal); J02.9 Acute pharyngitis, unspecified; J31.2 Chronic pharyngitis; E11.9 Type 2 diabetes mellitus without complications; K21.9 Gastro-esophageal reflux disease without esophagitis; R05 Cough; I10 Essential (primary) hypertension; E78.5 Hyperlipidemia, unspecified; J45.909 Unspecified asthma, uncomplicated; J44.9 Chronic obstructive pulmonary disease, unspecified; G43.909 Migraine, unspecified, not intractable, without status migrainosus; Z87.891 Personal history of nicotine dependence; Z88.6 Allergy status to analgesic agent; Z79.899 Other long term (current) drug therapy; Z79.891 Long term (current) use of opiate analgesic; Z79.51 Long term (current) use of inhaled steroids; Z79.4 Long term (current) use of insulin
CPT/HCPCS: 31622; 31535; 43197; 88305; 83735; 88312; J2250; J0330; J1100 ×2; J0690; J2405; J2001; J3010; J2704

== ENCOUNTER → 2017-04-10 | Outpatient (CLI) | payer MEDICARE, OTHER ==
[2017-04-10 13:26] VITALS: PULSE 69; RESP 16; TEMP 98.3
[2017-04-10 13:31] VITALS: BP 231/102
--- NOTE | 2017-04-10 21:28 | P.CONS ---
History of Present Illness - Reason for Consult Consult date: 04/10/17 - History of Present Illness Follow-up visit for this patient with chronic history of severe low back pain and neck pain, cervical spondylosis and lumbar spondylosis and sacroiliitis, back surgery syndrome and lumbar area, and had diagnostic medial branch block cervical area, and lumbar area and she had no benefit from it, if she continued to use 30 mg every 8 hours, Zanaflex 4 mg 2 tablets every 8 hours , has any side effects from the medication she denies any excessive drowsiness or sleepiness and she reported that, current pain medication helping her to control her pain and she denies side effects from it, Past Medical History Past Medical History: Asthma, COPD, Diabetes Mellitus, GERD/Reflux, Hyperlipidemia, Hypertension, Skin Disorder Additional Past Medical History / Comment(s): Chronic back pain, MIGRAINE HEADACHES. NASOPHARYNGEAL MASS. History of Any Multi-Drug Resistant Organisms: MRSA Year Discovered:: 2011 MDRO Source:: UNK Past Surgical History: Appendectomy, Back Surgery, Cholecystectomy, Orthopedic Surgery Additional Past Surgical History / Comment(s): Fusion and kane down back. Left Shoulder Replacement, Right knee replacement, plate in right wrist, left thumb joint repair, Right carpal tunnel repair, Right shoulder scope, Cervical fusion. LARYNGOSCOPY Past Anesthesia/Blood Transfusion Reactions: No Reported Reaction Past Psychological History: Bipolar Smoking Status: Former smoker Past Alcohol Use History: None Reported Additional Past Alcohol Use History / Comment(s): SMOKED 1PPD . STARTED SMOKING AGE 17 AND QUIT 1981. SMOKED FOR APPROX 10 YEARS. Past Drug Use History: None Reported - Past Family History Brother(s) Family Medical History: Cancer, Myocardial Infarction (NM) Father Family Medical History: Cancer Additional Family Medical History / Comment(s): throat, colon, liver, and brain cancer. Mother Family Medical History: Myocardial Infarction (NM) Additional Family Medical History / Comment(s): at 54 of [place]. Medications and Allergies Home Medications Medication Instructions Recorded Confirmed Type Butalb/Acetaminophen/Caffeine 1 tab PO BID PRN 04/11/14 04/10/17 History [Fioricet 50-325-40 mg Tablet] INSULIN LISPRO (humaLOG) [humaLOG See Protocol SQ AC-TID PRN 04/14/14 04/10/17 History (formulary)] Budesonide-Formot 160-4.5 Mcg 2 puff INHALATION BID PRN 10/25/15 04/10/17 History [Symbicort 160-4.5 Mcg Inhaler] Lisinopril [Zestril] 40 mg PO DAILY 04/04/16 04/10/17 History Diazepam [Valium] 10 mg PO BID PRN 05/02/16 04/10/17 History Insulin Glargine [Lantus] 20 unit SQ HS 05/02/16 04/10/17 History Allergies Allergy/AdvReac Type Severity Reaction Status Date / Time ibuprofen [From Motrin] AdvReac Abdominal Verified 04/10/17 13:09 Pain and vomiting Physical Exam Vitals: Vital Signs Temp Pulse Resp BP Pulse Ox 04/10/17 13:12 98.3 F 69 16 231/102 94 L Intake and Output 04/10/17 04/10/17 04/10/17 06:59 14:59 22:59 Other: Weight 95.254 kg Patient Weight 04/11/17 06:59 Weight 95.254 kg Physical Examinations : 1-Constitutiona : Cooperative , not in acute distress . 2-HEENT : nech ; supple , no Lymphadenopathy , normal thyroid size . eyes : no ptosis , no icterus, no photophobia . ENT : normal of hearing , normal oropharynx , no Thrush . 3- Respiratory : Chest clear to auscultations Bilaterally , no wheezing , no Rhonchi . 4- Cardiovascular : regular rate and rhythem , S1 , S2 , no S3 , no S4. 5- Gastrointestinal : abdomen soft no tenderness , bowel sounds positive all four quadrents , no organomegally . 6- Genitourinary : Defferred . 7- neurologic : Cranial nerve II to XII intact , no focal neurological deffecit . 8-psychatric : alert , oriented X 3 , appropriate affect , intact judgment and insight . 9-Lymphatic : no Lymphadenopathy . 10- musculoskeltal : cervical spine = motor stregnth in the deltoid and biceps, motor stregnth biceps and the wrist extensors (C6) . motor stregnth in the triceps muscle . deep tendon reflexes normal at the biceps , l normal at Brachioradialis normal at the triceps positive cervical facet loading test . , Lumber spine = normal moter stegnth lower extremities ,thigh and legs .5/5 deep tendon reflexes : normal Knee Jerk , normal ankle Jerk . positive lumber facet Loading Test strait leg raising test positive at 30 degree , RT ,LT , Fabere test positive RT and positive LT . Sever tenderness over the Sacroiliac joint on the Right , and Left side Assessment and Plan Plan: Assessment and plan= chronic low back pain secondary to lumbar degenerative disc disease , lumbar spondylosis with lumbar facet arthropathy , failed back surgery syndrome and lumbar area, and sacroiliitis Neck pain secondary to cervical spondylosis. Patient failed interventional pain management chronic and current use of high-risk medication (opioids) Patient denies any side effects of the current pain medication and the current treatment/medication ML and the patient to do activity of daily living , Diagnoses, prognosis, treatment options, including but not limited to physical therapy, medication management, interventional therapies, and surgery, were discussed with the patient All the questions answered Patient signed the narcotic agreement, and he was orally counseled, not to overuse, not to abuse, not to Divert , not tp sell pain medication, and to take it as prescribed only, Patient was counseled not to drive or operate heavy equipment while using narcotic medication, and advised not to use alcohol or any Illicit drugs while using the narcotis, the patient's verbalized understanding that lack of compliance with any of the above instructions and will likely to cause discharge from the pain service, not to renew his narcotic prescriptions Medication managements= patient will be given prescription refills for 1-MS Contin 30 mg every 8 hours dispense 90 with 1 refills 2-Zanaflex 4 mg 2 tablet every 8 hours with one refile Interventional pain management= Refferal = blood pressure significantly elevated with systolic blood pressure more than 200 and after blood pressure more than 100 checked several times, Advised the patient to go to the emergency room, he went her blood and I explained to her. Urgency or the situation that her blood pressure considered hypertension emergency and she has to see her primary care or go to the emergency room, spent to her the risk of stroke, congestive heart failure and kidney failure as a complication of severe hypertension, she understood Follow-up= 2 months , Time with Patient: Less than 30
== END ==
LOC: PNWHC3 12:10
PROVIDERS: ATTEND Specialist
DX: M51.36 Other intervertebral disc degeneration, lumbar region (principal); M47.816 Spondylosis without myelopathy or radiculopathy, lumbar region; M46.86 Other specified inflammatory spondylopathies, lumbar region; M46.1 Sacroiliitis, not elsewhere classified; M47.812 Spondylosis without myelopathy or radiculopathy, cervical region; Z79.891 Long term (current) use of opiate analgesic; Z79.899 Other long term (current) drug therapy; Z87.891 Personal history of nicotine dependence; Z79.4 Long term (current) use of insulin
CPT/HCPCS: 99211

== ENCOUNTER → 2017-06-05 | Outpatient (CLI) | payer MEDICARE, OTHER ==
[2017-06-05 14:07] VITALS: RESP 16; TEMP 98.2
[2017-06-05 14:12] VITALS: BP 246/112; PULSE 72
--- NOTE | 2017-06-05 14:43 | P.PN ---
Subjective Progress Note Date: 06/05/17 This is follow-up visit for this patient with a history of severe and chronic neck pain ,and low back pain secondary to lumbar degenerative disc disease, lumbar facet arthropathy, and cervical spondylosis , failed back surgery syndrome ,, we did interventional pain management injection,, diagnostic medial branch block cervical area and lumbar area , patient had no benefit from the diagnostic medial branch block , currently she is complaining of severe low back pain mainly on the right side and radiated to the right buttock area patient currently on 1-MS Contin 30 mg every 8 hours 2-Zanaflex 4 mg 2 tablets every 8 hours Patient denies any side effects of the medication, denies excessive drowsiness or sleepiness, denies suicidal ideation, and reports that the current pain medication is NOT helping To control the pain and improve activity of daily living . Patient denies any motor or sensory deficit, denies change in bowel movement or urination, patient denies any fever or night sweats and patient here for follow-up visit and medication refill , patient reported that the pain interfering with her quality of life and intensity of the pain is 8/10 increased to 10 over 10 with any activity Objective - Exam Physical Examinations : 1-Constitutiona : Cooperative , not in acute distress . 2-HEENT : nech ; supple , no Lymphadenopathy , normal thyroid size . eyes : no ptosis , no icterus, no photophobia . ENT : normal of hearing , normal oropharynx , no Thrush . 3- Respiratory : Chest clear to auscultations Bilaterally , no wheezing , no Rhonchi . 4- Cardiovascular : regular rate and rhythem , S1 , S2 , no S3 , no S4. 5- Gastrointestinal : abdomen soft no tenderness , bowel sounds positive all four quadrents , no organomegally . 6- Genitourinary : Defferred . 7- neurologic : Cranial nerve II to XII intact , no focal neurological deffecit . 8-psychatric : alert , oriented X 3 , appropriate affect , intact judgment and insight . 9-Lymphatic : no Lymphadenopathy . 10- musculoskeltal : , Lumber spine = normal moter stegnth lower extremities ,thigh and legs .5/5 deep tendon reflexes : normal Knee Jerk , normal ankle Jerk . positive lumber facet Loading Test strait leg raising test positive at 30 degree , RT ,LT , Fabere test positive RT and positive LT . Sever tenderness over the Sacroiliac joint on the Right side Assessment and Plan Plan: Assessment and plan= chronic low back pain secondary to lumbar degenerative disc disease , lumbar spondylosis with lumbar facet arthropathy , failed back surgery syndrome and lumbar area , Right sacroiliitis Patient had no benefit from diagnostic medial branch block lumbar area , currently patient having clinical symptoms or severe sacroiliitis on the right side chronic and current use of high-risk medication (opioids) Patient denies any side effects of the current pain medication and the current treatment/medication ML and the patient to do activity of daily living , Diagnoses, prognosis, treatment options, including but not limited to physical therapy, medication management, interventional therapies, and surgery, were discussed with the patient All the questions answered Patient signed the narcotic agreement, and he was orally counseled, not to overuse, not to abuse, not to Divert , not tp sell pain medication, and to take it as prescribed only, Patient was counseled not to drive or operate heavy equipment while using narcotic medication, and advised not to use alcohol or any Illicit drugs while using the narcotis, the patient's verbalized understanding that lack of compliance with any of the above instructions and will likely to cause discharge from the pain service, not to renew his narcotic prescriptions Medication managements= patient will be given prescription refills for 1-morphine sulfate extended release 30 mg every 8 hours dispense 90 with 1 refill 2-Zanaflex 4 mg 2 tablets every 8 hours dispense 180 with 1 refill , patient could benefit from Voltaren gel 2 g to be applied to the right buttock area 3 times a day Interventional pain management= right sacroiliac joint steroid injections Refferal =none Follow-up= 2 months Next visit we'll do urine tox screen Examination of the vital signs today showed patient had a blood pressure was 246 /112, I explained to the patient that this is extremely dangerous and very high blood pressure she has to go to the emergency room, for treatment of her high blood pressure she reported that she already saw her primary care the last couple of days and has been working on her blood pressure,, patient reported that she will see her primary care today ,
== END ==
LOC: PNWHC3 12:56
PROVIDERS: ATTEND Specialist
DX: M51.36 Other intervertebral disc degeneration, lumbar region (principal); M47.816 Spondylosis without myelopathy or radiculopathy, lumbar region; M46.86 Other specified inflammatory spondylopathies, lumbar region; Z79.891 Long term (current) use of opiate analgesic; Z79.899 Other long term (current) drug therapy
CPT/HCPCS: 99211

== ENCOUNTER 2017-07-04 08:37 | Day surgery (SDC) | payer MEDICARE, OTHER ==
[2017-07-01 16:56] VITALS: BMI 36.6
[~2017-07-04 08:37] MED LIST changes: -ACETAMINOPHEN TAB 500 MG TAB PO ONE; -DEXAMETHASONE SOD PHOSPHATE 10 MG/ML 1 ML VIAL IV ONE; -HYDROmorphone 1 MG/ML 1 ML SYRINGE IVP PRN; -ONDANSETRON 4 MG/2 ML VIAL IVP ONE; -Pre Op ABX Message 1 EACH MISC MISCELLANE ONE
[2017-07-04 09:16] VITALS: RESP 16; TEMP 98.4
[2017-07-04] MEDS ORDERED: LIDOCAINE 1% 20 ML VIAL (10MG/ML) FOR IV START INTRADERMA ONE (09:30)
[2017-07-04 09:31] LABS: Glucose,Whole Blood 141 mg/dL (75-99)
--- NOTE | 2017-07-04 10:00 | P.PCN ---
Date of Procedure: 07/04/17 Procedure(s) Performed: Preoperative diagnoses= 1-Right sacroiliitis. 2-lumbar spondylosis with facet arthropathy without myelopathy 3-. failed Back surgery syndrome lumbar area Postoperative diagnoses= same as preoperative diagnosis. Procedure= Right sacroiliac joint steroid injection under fluoroscopic guidance. Anesthesia= conscious sedation with Versed 2 mg and fentanyl 100 micrograms and local infiltration with lidocaine 1% 4 ml Estimated blood loss=minimal. Procedure indication= the patient had a history of severe chronic low back pain , diagnosed with sacroiliitis and lumbar sacral facet arthropathy unresponsive to conservative treatment. Procedure description= the patient was seen and identified in the preoperative holding area, risks and benefits and alternative of the procedure and possible complications discussed with the patient, and he agreed with the preceding, patient signed the consent, an IV was started, and vital signs were monitored and were stable throughout the procedure, patient was placed in the prone position or table and the lumbosacral area was prepped and draped with a sterile fashion, vital signs were closely monitored during the procedure, the fluoroscopy camera was placed in the contralateral oblique view on the right sacroiliac joint and the lower part of the joint was identified, local infiltration of the skin and subcutaneous tissue with lidocaine 1% 2 mL then a 22-gauge Quincke-type spinal needle advanced slowly under fluoroscopy and placed in the posterior and inferior border of the right sacroiliac joint, placement confirmed with AP and lateral view, and after appropriate needle placement confirmed and after negative aspiration for heme and CSF and there was no paresthesia during the injection, 4 ml of Marcaine 0.5% and 40 mg of Kenalog injected after negative aspiration, the needle removed intact Patient tolerated the procedure well without any complication, The patient returned to supine position after the back was cleaned and a Band- Aid applied, the patient transported to recovery room in stable condition and he was monitored for 30 minutes before he was discharged home and then patient was reexamined before going home and patient was discharged in stable condition and patient will follow up with the pain clinic in a few weeks
[2017-07-04] MEDS ORDERED: IV FLUID CONTINUATION 1,000 ML IV ONE (10:05)
[2017-07-04 10:24] VITALS: BP 168/72; PULSE 81
--- NOTE | 2017-07-04 10:29 | FL ---
Fluoroscopy INDICATION: Pain FINDINGS: Fluoroscopy time: 7 seconds. Images obtained: 1. IMPRESSIONS: 1. Documentation of fluoroscopy.
== END 2017-07-04 10:34 | disposition home or self-care (01) ==
LOC: ORPAIN 08:37
PROVIDERS: ATTEND Specialist
DX: M46.1 Sacroiliitis, not elsewhere classified (principal); M47.816 Spondylosis without myelopathy or radiculopathy, lumbar region; M46.96 Unspecified inflammatory spondylopathy, lumbar region; M96.1 Postlaminectomy syndrome, not elsewhere classified; I10 Essential (primary) hypertension; J44.9 Chronic obstructive pulmonary disease, unspecified; E11.9 Type 2 diabetes mellitus without complications; E66.01 Morbid (severe) obesity due to excess calories; Z68.36 Body mass index [BMI] 36.0-36.9, adult; Z88.6 Allergy status to analgesic agent
CPT/HCPCS: J2250; J3301; J3010; G0260; 27096

== ENCOUNTER 2017-08-21 07:20 | Day surgery (SDC) | payer MEDICARE, OTHER ==
[2017-08-15 10:57] VITALS: BMI 36.6
[2017-08-21] MEDS ORDERED: LACTATED RINGERS 1,000 ML IV ONE (07:42)
[2017-08-21] MEDS ORDERED: LIDOCAINE 1% 20 ML VIAL (10MG/ML) FOR IV START INTRADERMA ONE (07:43)
[2017-08-21 07:50] LABS: Glucose,Whole Blood 146 mg/dL (75-99)
[2017-08-21] MEDS ORDERED: LACTATED RINGERS 1,000 ML IV SCH (08:15)
[2017-08-21] MEDS ORDERED: IV FLUID CONTINUATION 1,000 ML IV ONE (08:25)
[2017-08-21 08:38] LABS: Glucose,Whole Blood 133 mg/dL (75-99)
--- NOTE | 2017-08-21 09:11 | FL ---
Fluoroscopy INDICATION: Pain FINDINGS: Fluoroscopy time: 6 seconds. Images obtained: 2. IMPRESSIONS: 1. Documentation of fluoroscopy.
--- NOTE | 2017-08-21 10:20 | P.PCN ---
Date of Procedure: 08/21/17 Surgeon: Fredi Oh Pathology: none sent Condition: stable Disposition: PACU Description of Procedure: PREOPERATIVE DIAGNOSIS: 1-Bilateral sacroiliitis. 2 Lumbar DDD POSTOPERATIVE DIAGNOSIS:. 1-Bilateral sacroiliitis. 2 Lumbar DDD PROCEDURES: Right Sacroiliac joint steroid injection with fluoroscopic guidance ANESTHESIA: Local with 1% lidocaine; conscious sedation EBL: Minimal. PROCEDURE INDICATIONS: This patient with a history of low back pain secondary to sacroiliitis and lumbar DDD unresponsive to conservative management. No use of blood thinners. PROCEDURE DESCRIPTION: The patient was seen and identified in the preoperative area. Risks, benefits, complications, and alternatives were discussed with the patient (including but not limited to incomplete pain relief, bleeding, infection, nerve damage, and allergies to medications), the patient agreed to proceed with the procedure and signed the consent after all questions were answered. Patient was taken to the OR and time out was completed to verify proper patient , position, laterality of pain, and allergies. Pt was placed in the prone position and a pillow was placed under the abdomen to reduce lumbar lordosis. The lumbosacral area was prepped and draped in the usual sterile fashion. Critical pause was taken. Vital signs were closely monitored during the procedure. The fluoroscopic camera was placed in contralateral oblique view and right sacroiliiac joint lower pole was identified. After local infiltration with 1% lidocaine 2 ml, Subsequently, a 22-gauge 3.5 inch spinal needle was introduced into the posteroinferior aspect of the right sacroiliac joint under direct fluoroscopic visualization. Subsequently, all 4 ml of solution containing total 3 mL of 0.5% preservative-free bupivicaine mixed with 40 mg of Kenalog was injected after negative aspiration for CSF, blood, and air and negative for paresthesia. The entire procedure was repeated on the left side as above. Needle was withdrawn intact. Skin was cleansed, and bandages were applied. COMPLICATIONS: None. COMMENTS: DISPOSITION / PLANS: The patient was placed in a supine position and transferred to the recovery area in a stable condition for observation and was discharged from the recovery room after meeting discharge criteria. Home discharge instructions given to the patient by the staff. The patient was reexamined prior to discharge and had some weakness in her RLE, but was able to carry weight. The patient will schedule a follow up in clinic in 4-6 weeks.
[2017-08-21 23:20] VITALS: BP 162/79; PULSE 99; RESP 16; TEMP 97.9
== END 2017-08-21 09:35 | disposition home or self-care (01) ==
LOC: ORPAIN 07:20
PROVIDERS: ATTEND Anesthesiology
DX: G89.29 Other chronic pain (principal); M46.1 Sacroiliitis, not elsewhere classified; M51.36 Other intervertebral disc degeneration, lumbar region; M47.816 Spondylosis without myelopathy or radiculopathy, lumbar region; M96.1 Postlaminectomy syndrome, not elsewhere classified; J44.9 Chronic obstructive pulmonary disease, unspecified; E11.9 Type 2 diabetes mellitus without complications; E66.01 Morbid (severe) obesity due to excess calories; Z68.36 Body mass index [BMI] 36.0-36.9, adult; Z88.6 Allergy status to analgesic agent; Z98.1 Arthrodesis status
CPT/HCPCS: J2250; J3301; Q9965; J3010; G0260; 27096; 99152

== ENCOUNTER → 2017-09-17 | Outpatient (CLI) | payer MEDICARE, OTHER ==
[2017-09-17 12:29] VITALS: RESP 18; TEMP 98
[2017-09-17 12:34] VITALS: BP 190/111; PULSE 77
--- NOTE | 2017-09-17 12:59 | P.PN ---
Progress Note - Text Progress Note Date: 09/17/17 Patient returns for followup for chronic neck and back pain with radiation to right arm and left leg, now s/p laminectomy and fusion of the C-spine in November 2016 with improvement in her pain. Patient continues on MSContin three times daily but has not been able to get Zanaflex due to insurance issues; patient is requesting Flexeril today. Patient is tearful because she had a in the family recently. Patient has undergone repeat spinal fusion in her neck and her narcotic dose has tripled since she began coming to our clinic in early 2015 , and her pain is still 10/10 today, although she did have a fall last month. Patient denies adverse drug effects from medications. Today, pt denies new- onset weakness, bowel/bladder incontinence, or any other signs or symptoms of cauda equina syndrome. There are no signs of acute intoxication, and no indications of medication diversion or overuse. In addition to above, 13-point review of systems is also negative for chest pain , shortness of breath, changes in vision, changes in hearing, new onset weakness , abdominal pain, diarrhea, extreme fatigue, malaise, fever, skin changes, homicidal or suicidal ideation, or bowel or bladder incontinence. Vital Signs: Reviewed in EMR Gen: WDWN, AAOx3, NAD HEENT: NCAT, EOMI, hearing grossly normal Pulm: resp unlabored Abd: soft, NT, ND, obese Neck: supple, trachea midline ROM in flexion lumbar spine: reduced ROM in extension lumbar spine: reduced Lumbar paravertebral tenderness: + Lumbar facet tenderness: bilateral Neuro: CN II-XII grossly intact, muscle strength lower extremities PRESERVED Assessment: 1. lumbar spondylosis without myelopathy 2. cervical PLPS 3. lumbar PLPS 4. morbid obesity Plan: 1. Explanation: Opioid and psychological risk scores were reviewed. Diagnoses , prognoses, and multiple treatment options including but not limited to physical therapy, interventional therapies, adjuvant medical therapies, narcotic medication therapies, and surgery were discussed with the patient and all questions were answered to the patient's satisfaction. 2. Opioid agreement: Patient has previously signed narcotic agreement, and was orally counseled to not overuse, abuse, divert, or cell medications, and to take them as prescribed by only 1 healthcare provider. The patient was also counseled to store opioid medications in a safe and preferably locked location. Patient was also counseled against driving or operating heavy equipment while using narcotic medications and also to not use alcohol or any illicit or recreational drugs. The patient verbalized understanding that lack of compliance with any of the above and likely result in failure to renew narcotic prescriptions, possible discharge from the clinic, and possible legal ramifications thereafter if indicated. 3. Counseling: The patient was counseled extensively on high BP, BODY MASS INDEX, EXERCISE. Specifically, the patient was instructed regarding the importance of BP control, weight control and exercise in the context of both chronic pain and overall health. 4. Procedures: as scheduled 5. Consultations: physical therapy 6. Investigations: MRI L-spine not done because patient had recent in the family 7. Medications: MSContin 30 mg q12h #60 with one refill; MSContin 15 mg to be used in afternoon #30 with one refill 8. Disposition: f/u for re-eval 8 weeks; will evaluate MRI at next visit PQRS measures: 1-Patient's medications are documented in the chart. 2-Tobacco use is negative 3-Patient has had a pneumococcal vaccine. 4-Advanced care planning discussed, patient unable to give. 5-Opioid contract signed with the patient. 6-Pain positive, follow-up visit or procedure scheduled 7-Patient's blood pressure measured and documented, and patient will follow up with the primary care due to hypertension. 8-Patient's weight was measured, and body mass index ABOVE the normal limits, and counseling was done. Patient instructed to follow up with PCP or go to ER if symptomatic. 9-Patient WAS NOT identified as an unhealthy alcohol user.
== END | disposition home or self-care (01) ==
LOC: PNWHC3 12:03
PROVIDERS: ATTEND Anesthesiology
DX: G89.29 Other chronic pain (principal); M54.2 Cervicalgia; M54.9 Dorsalgia, unspecified; M47.816 Spondylosis without myelopathy or radiculopathy, lumbar region; M96.1 Postlaminectomy syndrome, not elsewhere classified; E66.01 Morbid (severe) obesity due to excess calories; Z98.1 Arthrodesis status; Z79.891 Long term (current) use of opiate analgesic; Z79.899 Other long term (current) drug therapy
CPT/HCPCS: 80307; G0480 ×3; G0463; 80346; 80356; 80364; 99211

== ENCOUNTER → 2017-11-12 | Outpatient (CLI) | payer MEDICARE, OTHER ==
[2017-11-12 12:08] VITALS: BP 174/106; RESP 18
--- NOTE | 2017-11-12 12:43 | P.PN ---
Progress Note - Text Progress Note Date: 11/12/17 Patient returns for followup for chronic neck and back pain with radiation to right arm and left leg, now s/p laminectomy and fusion of the C-spine in November 2016 with improvement in her pain. Patient continues on MSContin three times daily (30 q12 and 15 mg in afternoon). Patient is complaining of severe knee pain today. Patient's pain is still 10/10 today despite reduction in opioids, although she did have a fall last month. Patient denies adverse drug effects from medications. Today, pt denies new-onset weakness, bowel/bladder incontinence, or any other signs or symptoms of cauda equina syndrome. There are no signs of acute intoxication, and no indications of medication diversion or overuse. In addition to above, 13-point review of systems is also negative for chest pain , shortness of breath, changes in vision, changes in hearing, new onset weakness , abdominal pain, diarrhea, extreme fatigue, malaise, fever, skin changes, homicidal or suicidal ideation, or bowel or bladder incontinence. Vital Signs: Reviewed in EMR Gen: WDWN, AAOx3, NAD HEENT: NCAT, EOMI, hearing grossly normal Pulm: resp unlabored Abd: soft, NT, ND, obese Neck: supple, trachea midline ROM in flexion lumbar spine: reduced ROM in extension lumbar spine: reduced Lumbar paravertebral tenderness: + Lumbar facet tenderness: bilateral Neuro: CN II-XII grossly intact, muscle strength lower extremities PRESERVED Assessment: 1. lumbar spondylosis without myelopathy 2. cervical PLPS 3. lumbar PLPS 4. morbid obesity Plan: 1. Explanation: Opioid and psychological risk scores were reviewed. Diagnoses , prognoses, and multiple treatment options including but not limited to physical therapy, interventional therapies, adjuvant medical therapies, narcotic medication therapies, and surgery were discussed with the patient and all questions were answered to the patient's satisfaction. 2. Opioid agreement: Patient has previously signed narcotic agreement, and was orally counseled to not overuse, abuse, divert, or cell medications, and to take them as prescribed by only 1 healthcare provider. The patient was also counseled to store opioid medications in a safe and preferably locked location. Patient was also counseled against driving or operating heavy equipment while using narcotic medications and also to not use alcohol or any illicit or recreational drugs. The patient verbalized understanding that lack of compliance with any of the above and likely result in failure to renew narcotic prescriptions, possible discharge from the clinic, and possible legal ramifications thereafter if indicated. 3. Counseling: The patient was counseled extensively on high BP, BODY MASS INDEX, EXERCISE. Specifically, the patient was instructed regarding the importance of BP control, weight control and exercise in the context of both chronic pain and overall health. 4. Procedures: left knee injection with fluoro vs. ultrasound 5. Consultations: none 6. Investigations: none 7. Medications: MSContin 30 mg q12h #60 with one refill; Flexeril with three refills (discontinue MSContin 15 mg) 8. Disposition: f/u for re-eval 8 weeks and for procedure as scheduled PQRS measures: 1-Patient's medications are documented in the chart. 2-Tobacco use is negative 3-Patient has had a pneumococcal vaccine. 4-Advanced care planning discussed, patient unable to give. 5-Opioid contract signed with the patient. 6-Pain positive, follow-up visit or procedure scheduled 7-Patient's blood pressure measured and documented, and patient will follow up with the primary care due to hypertension. 8-Patient's weight was measured, and body mass index ABOVE the normal limits, and counseling was done. Patient instructed to follow up with PCP or go to ER if symptomatic. 9-Patient WAS NOT identified as an unhealthy alcohol user.
== END | disposition home or self-care (01) ==
LOC: PNWHC3 11:30
PROVIDERS: ATTEND Anesthesiology
DX: M47.816 Spondylosis without myelopathy or radiculopathy, lumbar region (principal); M96.1 Postlaminectomy syndrome, not elsewhere classified; E66.01 Morbid (severe) obesity due to excess calories; Z79.891 Long term (current) use of opiate analgesic
CPT/HCPCS: 99211

== ENCOUNTER → 2017-11-13 | Day surgery (SDC) | payer MEDICARE, OTHER ==
[~2017-11-13] MED LIST changes: +IV FLUID CONTINUATION 1,000 ML IV ONE; +LIDOCAINE 1% 20 ML VIAL (10MG/ML) FOR IV START INTRADERMA ONE; +fentaNYL (PF) 50 MCG/ML 2 ML AMP IV ONE
[2017-11-13 08:03] VITALS: TEMP 98.5
--- NOTE | 2017-11-13 09:04 | P.PCN ---
Date of Procedure: 11/13/17 Procedure(s) Performed: Preoperative diagnoses= 1-left knee arthralgia Postoperative diagnoses= same as preoperative diagnosis. Procedure= left knee joint steroid injection under fluoroscopic guidance. Anesthesia= moderate sedation with Versed 2 mg and fentanyl 100 micrograms and local infiltration with lidocaine 1% 2 ml Estimated blood loss=minimal. Procedure indication= the patient had a history of severe chronic low back pain , diagnosed with sacroiliitis and lumbar sacral facet arthropathy unresponsive to conservative treatment. Procedure description= the patient was seen and identified in the preoperative holding area, risks and benefits and alternative of the procedure and possible complications discussed with the patient, and he agreed with the preceding, patient signed the consent, an IV was started, and vital signs were monitored and were stable throughout the procedure, patient was placed in the supine position or table and the left knee area was prepped and draped with a sterile fashion, vital signs were closely monitored during the procedure, the fluoroscopy camera was placed in the contralateral oblique view on the left joint and the lower part of the joint was identified, local infiltration of the skin and subcutaneous tissue with lidocaine 1% 2 mL then a 22-gauge Quincke- type spinal needle advanced slowly under fluoroscopy and placed in the lateral aspect of the left knee joint, placement confirmed with AP and lateral view, and with injections of isovue 200 ,2 ml , and after appropriate needle placement confirmed and after negative aspiration for heme and CSF and there was no paresthesia during the injection, 4 ml of Marcaine 0.5% and 40 mg of Kenalog injected after negative aspiration, the needle removed, Patient tolerated the procedure well without any complication, The patient returned to supine position after the back was cleaned and a Band- Aid applied, the patient transported to recovery room in stable condition and he was monitored for 30 minutes before he was discharged home and then patient was reexamined before going home and patient was discharged in stable condition and patient will follow up with the pain clinic in a few weeks
--- NOTE | 2017-11-13 09:17 | FL ---
EXAMINATION TYPE: FL guided pain mgmt statistic DATE OF EXAM: 11/13/2017 HISTORY: Pain 5sec fluoro time,1 image scanned
[2017-11-13 09:20] VITALS: RESP 16
[2017-11-13 09:53] VITALS: BP 171/84; PULSE 84
[2017-11-13 10:10] LABS: Glucose,Whole Blood 129 mg/dL (75-99)
== END | disposition home or self-care (01) ==
LOC: ORPAIN 07:38
PROVIDERS: ATTEND Specialist
DX: G89.29 Other chronic pain (principal); M25.562 Pain in left knee; M46.1 Sacroiliitis, not elsewhere classified; M47.816 Spondylosis without myelopathy or radiculopathy, lumbar region; M96.1 Postlaminectomy syndrome, not elsewhere classified; E66.01 Morbid (severe) obesity due to excess calories; Z68.41 Body mass index [BMI] 40.0-44.9, adult; Z79.891 Long term (current) use of opiate analgesic
CPT/HCPCS: 20610; J2250; J3301; J3010; Q9966

== ENCOUNTER 2017-12-12 08:48 | Day surgery (SDC) | payer MEDICARE, OTHER ==
[2017-12-10 09:58] VITALS: BMI 44.3
[2017-12-12] MEDS ORDERED: LACTATED RINGERS 1,000 ML IV SCH (09:00)
[2017-12-12 09:21] VITALS: TEMP 98.3
[2017-12-12] MEDS ORDERED: LIDOCAINE 1% 20 ML VIAL (10MG/ML) FOR IV START INTRADERMA ONE (09:39)
[2017-12-12 09:40] LABS: Glucose,Whole Blood 201 mg/dL (75-99)
--- NOTE | 2017-12-12 10:51 | P.PCN ---
Date of Procedure: 12/12/17 Preoperative Diagnosis: Left knee osteoarthritis Postoperative Diagnosis: Same as above Anesthesia: local, other (Moderate sedation with IV fentanyl and Versed) Surgeon: Bart Sharp Disposition: PACU Description of Procedure: The patient was seen in the preop holding area consent was obtained then she was brought into the procedure room and placed in the supine position. Skin was prepped with DuraPrep on the left knee and draped in a sterile manner. Then I used ultrasound guidance to target the suprapatellar space with 22-gauge 3-1/2 inch spinal needle after localizing the skin with lidocaine 1%. Then I injected 40 mg of Kenalog +4 MLS of Marcaine 0.5%. The patient has poorly controlled hypertension and we had to give 5 mg of IV hydralazine during the procedure. The patient will be seen in a few weeks for follow-up.
[2017-12-12] MEDS ORDERED: LABETALOL 5 MG/ML VIAL MDV IVP STA (10:54)
[2017-12-12] MEDS ORDERED: IV FLUID CONTINUATION 1,000 ML IV ONE (10:57)
[2017-12-12] MEDS: fentaNYL (PF) 50 MCG/ML 20 ML VIAL IVP PRN ×2 (11:02→11:10)
[2017-12-12] MEDS ORDERED: LABETALOL 5 MG/ML VIAL MDV IVP ONE (11:10)
[2017-12-12 11:24] VITALS: BP 149/84; PULSE 110; RESP 18
== END 2017-12-12 11:34 | disposition home or self-care (01) ==
LOC: ORPAIN 08:48
PROVIDERS: ATTEND Anesthesiology
DX: M17.12 Unilateral primary osteoarthritis, left knee (principal); I10 Essential (primary) hypertension; E11.9 Type 2 diabetes mellitus without complications; E66.01 Morbid (severe) obesity due to excess calories; Z68.41 Body mass index [BMI] 40.0-44.9, adult; Z88.6 Allergy status to analgesic agent
CPT/HCPCS: 20611; J2250; J3301; J3010 ×2; 99152

== ENCOUNTER → 2018-01-14 | Outpatient (CLI) | payer MEDICARE, OTHER ==
[2018-01-14 14:15] VITALS: BP 182/92; PULSE 87; RESP 20
--- NOTE | 2018-01-14 14:50 | P.PAINPG ---
Subjective Progress Note Date: 01/14/18 Principal diagnosis: Back pain, leg pain 62-year-old woman with a history of chronic low back pain as well as right leg pain and numbness. She has had this since her first back operation. She is undergone interventional treatments which really haven't afforded her much benefit. She is opiate dependent at this time. She is currently prescribed morphine, Flexeril. She also was prescribed Valium twice daily from her primary care physician. She takes his for leg cramps. She denies bowel or bladder dysfunction. Objective - Vital Signs Vital signs: Vital Signs Temp Pulse 87 01/14/18 14:09 Resp 20 01/14/18 14:09 BP 182/92 01/14/18 14:09 Pulse Ox 97 01/14/18 14:09 Intake & Output 01/13/18 01/14/18 01/14/18 18:59 06:59 18:59 Weight 108.862 kg - Exam General: The patient is alert and oriented. Patient is not sedateded Patient is a question appropriately. Cardiac: Heart is regular in rate and rhythm Respiratory: Clear to auscultation. No audible wheezes. Abdomen: Soft nontender nondistended. Lower extremities: Strength is normal bilaterally. Sensation is normal bilaterally. Reflexes are preserved and symmetric bilaterally. Straight leg raise is negative on the left, positive on the right. Assessment and Plan Assessment: Plan of Care 1. Medications: We'll refill the patient's morphine and Flexeril today. I have counseled her at length about the risks of taking benzodiazepines and opiates. She will discuss this with her primary care physician and find an alternative medication to take to help with her leg cramps. She has signed the [place] start talking form today. I have advised her that she has 2 months to decrease off of her benzodiazepines. If she is unable to accomplish this we will no longer be able to prescribe opioids for her. A urine drug screen was obtained in January of this year and revealed expected results. I have reviewed the patient's MAPS report and it reveals expected results. Patient has signed an opiate agreement as well as opiate consent for treatment in our clinic. They understand the risks and benefits of opiate medications. They are aware of the potential for addiction. 2. Interventions: No interventions are indicated at this time. 3. Referrals: I strongly encouraged the patient to find a food service specialist to work on weight loss. I believe this will help reduce her medications, decrease her pain and improve her quality of life. 4. Testing: None 5. Psychological: Denies significant depression or anxiety. (1) Lumbar radiculopathy Current Visit: Yes Status: Acute Code(s): M54.16 - RADICULOPATHY, LUMBAR REGION SNOMED Code(s): 939421879 PQRS Measure Charge Sheet Measure #130: Documentation of Current Meds in Medical Chart: Patient's medications documented in chart Measure #226: Tobacco Use: Screen & Cessation Intervention: Pt not a tobacco user Measure #111: Pneumonia Vaccination: Pneumococcal vaccine NOT administered or previously given Measure #47: Advance Care Plan: Advance care planning discussed & documented, pt chose/unable to give Measure #412: Opioid Treatment Agreement: Documented signed opioid trtmnt agreemnt min once during opioid trtmnt Measure #408: Opioid Therapy Follow-up Evaluation: Patient had f/u eval minimum every 3 months during opioid therapy Measure #317: Preventitive Care & Scrn High Bld Press & F/U: Pre-hypertensive or hypertensive BP documented, pt will f/u with PCP Measure #128: Body Mass Index (BMI) Screening & Follow-up: BMI documented ABOVE normal parameters - f/u documented Measure #131: Pain Assessment & Follow-up: Pain positive & plan documented Measure #431: Unhealthy Alcohol Use Preventative Care & Scrn: Patient not identified as an unhealthy alcohol user PQRS Narrative: Smoking Status Former smoker Do You Want the Pneumonia Vaccine Up to Date Vaccine AT THIS TIME? Narcotic Agreement Date Signed 09/08/15 Blood Pressure 182/92 Pain Intensity [Right Lower 8 Back] Scale Used Numeric (1 - 10) Hx Alcohol Use (MH) No Home Medications: Ambulatory Orders Butalb/Acetaminophen/Caffeine [Fioricet 50-325-40 mg Tablet] 1 tab PO BID PRN INSULIN LISPRO (humaLOG) [humaLOG] See Protocol SQ AC-TID PRN 04/14/14 Budesonide-Formot 160-4.5 Mcg [Symbicort 160-4.5 Mcg Inhaler] 2 puff INHALATION BID PRN 10/25/15 Lisinopril [Zestril] 40 mg PO HS 04/04/16 Diazepam [Valium] 10 mg PO BID PRN 05/02/16 Insulin Glargine [Lantus] 20 unit SQ HS 05/02/16 Pantoprazole [Protonix] 40 mg PO AC-BID #60 tablet. 12/19/16 Lisinopril-Hctz 20-12.5 mg [Zestoretic 20-12.5] 1 tab PO DAILY 06/05/17 Cyclobenzaprine [Flexeril] 10 mg PO BID #60 tab 11/12/17 Morphine Sulfate ER [Ms Contin] 30 mg PO Q12HR #60 tab 11/12/17 Controlled Substance Measures - Controlled Substance Measures Is patient prescribed a controlled substance at discharge?: Yes When asked, does pt state using other controlled substances?: Yes If prescribed controlled substance>3 days was MAPS reviewed?: Yes If Rx opioid, was Start Talking consent form obtained?: Yes If opioid is for acute pain is fill amount 7 days or less?: Yes Was information provided regarding opioid addiction?: Yes
== END | disposition home or self-care (01) ==
LOC: PNWHC3 13:58
PROVIDERS: ATTEND Pain Medicine Pain Medicine
DX: G89.29 Other chronic pain (principal); M54.16 Radiculopathy, lumbar region; Z79.899 Other long term (current) drug therapy; Z79.4 Long term (current) use of insulin; Z87.891 Personal history of nicotine dependence
CPT/HCPCS: 99211

== ENCOUNTER → 2018-02-11 | Outpatient (CLI) | payer MEDICARE, OTHER ==
[2018-02-11 12:54] VITALS: BP 144/95; PULSE 90; RESP 18
--- NOTE | 2018-02-11 13:32 | P.PAINPG ---
Subjective Progress Note Date: 02/11/18 This is follow-up visit for this patient with a history of severe and chronic low back pain secondary to lumbar failed back surgery syndrome, lumbar facet arthropathy, And left knee pain diagnosed with left knee osteoarthritis , and right sacroiliitis We have done an interventional pain procedure diagnostic medial branch block lumbar area she had no benefit from it, and recently we did left knee steroid injections 2 she reported that the injection helped her left knee significantly , currently she is complaining of severe left shoulder pain increases with any shoulder movement The patient currently on MS Contin 30 mg twice a day and Flexeril 10 mg twice a day Patient denies any side effect of the medication , patient denies any excessive drowsiness or sleepiness, patient denies any suicidal ideation, Patient reported that the current medication is helping to control the pain and improve the activity of daily livings, Patient denies any motor or sensory deficit, denies any change in the bowel movement or urination, patient denies any fever or night sweats. Patient here today for follow-up visit and medication refill Objective - Vital Signs Vital signs: Vital Signs Temp Pulse 90 02/11/18 12:47 Resp 18 02/11/18 12:47 BP 144/95 02/11/18 12:47 Pulse Ox 96 02/11/18 12:47 Intake & Output 02/10/18 02/11/18 02/11/18 18:59 06:59 18:59 Weight 109.769 kg - Exam Physical Examinations : 1-Constitutiona : Cooperative , not in acute distress . 2-HEENT : nech ; supple , no Lymphadenopathy , normal thyroid size . eyes : no ptosis , no icterus , no photophobia . ENT : normal of hearing , normal oropharynx , no Thrush . 3- Respiratory : Chest clear to auscultations Bilaterally , no wheezing , no Rhonchi . 4- Cardiovascular : regular rate and rhythem , S1 , S2 , no S3 , no S4. 5- Gastrointestinal : abdomen soft no tenderness , bowel sounds , no organomegally . 6- Genitourinary : Defferred . 7- neurologic : Cranial nerve II to XII intact , no focal neurological deffecit . 8-psychatric : alert , oriented X 3 , appropriate affect , intact judgment and insight . 9-Lymphatic : no Lymphadenopathy . 10- musculoskeltal : cervical spine = motor stregnth in the deltoid and biceps, motor stregnth biceps and the wrist extensors (C6) . motor stregnth in the triceps muscle . deep tendon reflexes normal at the biceps Right , Left normal at the brachioradia Right , Left Normal at the triceps Right ,Left Limited ability to abduct and adduct left shoulder secondary to pain , Lumber spine = normal moter stegnth lower extremities ,thigh and legs .5/5 deep tendon reflexes : normal Knee Jerk , normal ankle Jerk . lumber facet Loading Test positive strait leg raising test positive at 30 degree Right , positve at 30 degree Left Fabere test positive Right and positive Left Assessment and Plan Plan: Assessment and plan= chronic low back pain secondary to lumbar degenerative disc disease , lumbar spondylosis with lumbar facet arthropathy . Failed back surgery syndrome and lumbar area Left knee osteoarthritis status post left knee steroid injections 2 and the pain improved Left shoulder pain , patient had left shoulder replacement done a few years ago by Dr. Cullen chronic and current use of high-risk medication (opioids) Patient denies any side effects of the current pain medication and the current treatment/medication helping the patient to do activity of daily living , Diagnoses, prognosis, treatment options, including but not limited to physical therapy, medication management, interventional therapies, and surgery, were discussed with the patient All the questions answered The narcotic consent was signed and patient agreed and understood the side effects and complications of opioid treatment. Patient signed the narcotic agreement, and was orally counseled, not to overuse, not to abuse, not to Divert , not tp sell pain medication, and to take it as prescribed only, Patient was counseled not to drive or operate heavy equipment while using narcotic medication, and advised not to use alcohol or any Illicit drugs while using the narcotis, the patient's verbalized understanding that lack of compliance with any of the above instructions, will likely to cause discharge from, the pain service, not to renew his narcotic prescriptions Medication managements= patient will be given prescription refills for MS Contin 30 mg every 12 hours dispense 60 with 1 refill and Flexeril 10 mg twice a day dispense 60 with 1 refill and patient was benefit from Celebrex 100 mg twice a day She will follow-up with Dr. Cullen orthopedic surgeon for evaluation regarding her left shoulder pain , Time with Patient: Less than 30 PQRS Measure Charge Sheet Measure #130: Documentation of Current Meds in Medical Chart: Patient's medications documented in chart Measure #226: Tobacco Use: Screen & Cessation Intervention: Pt not a tobacco user Measure #111: Pneumonia Vaccination: Pneumococcal vaccine NOT administered or previously given Measure #47: Advance Care Plan: Advance care planning discussed & documented, plan or surrogate given Measure #412: Opioid Treatment Agreement: Documented signed opioid trtmnt agreemnt min once during opioid trtmnt Measure #408: Opioid Therapy Follow-up Evaluation: Patient had f/u eval minimum every 3 months during opioid therapy Measure #317: Preventitive Care & Scrn High Bld Press & F/U: Pre-hypertensive or hypertensive BP documented, pt will f/u with PCP Measure #128: Body Mass Index (BMI) Screening & Follow-up: BMI documented ABOVE normal parameters - f/u documented Measure #131: Pain Assessment & Follow-up: Pain positive & plan documented, Follow-up scheduled Measure #431: Unhealthy Alcohol Use Preventative Care & Scrn: Patient not identified as an unhealthy alcohol user PQRS Narrative: Smoking Status Former smoker Do You Want the Pneumonia No Vaccine AT THIS TIME? Narcotic Agreement Date Signed 02/11/18 Blood Pressure 144/95 Pain Intensity [Left Upper 9 Back] Hx Alcohol Use (MH) No Home Medications: Ambulatory Orders Butalb/Acetaminophen/Caffeine [Fioricet 50-325-40 mg Tablet] 1 tab PO BID PRN INSULIN LISPRO (humaLOG) [humaLOG] See Protocol SQ AC-TID PRN 04/14/14 Budesonide-Formot 160-4.5 Mcg [Symbicort 160-4.5 Mcg Inhaler] 2 puff INHALATION BID PRN 10/25/15 Lisinopril [Zestril] 40 mg PO HS 04/04/16 Insulin Glargine [Lantus] 20 unit SQ HS 05/02/16 Pantoprazole [Protonix] 40 mg PO AC-BID #60 tablet. 12/19/16 Lisinopril-Hctz 20-12.5 mg [Zestoretic 20-12.5] 1 tab PO DAILY 06/05/17 Celecoxib [CeleBREX] 100 mg PO BID PRN #60 cap 02/11/18 Cyclobenzaprine [Flexeril] 10 mg PO BID #60 tab 02/11/18 Morphine Sulfate ER [Ms Contin] 30 mg PO Q12HR #60 tab 02/11/18 Morphine Sulfate ER [Ms Contin] 30 mg PO Q12HR 30 Days #60 tab 02/11/18 Controlled Substance Measures - Controlled Substance Measures Is patient prescribed a controlled substance at discharge?: Yes When asked, does pt state using other controlled substances?: Yes If prescribed controlled substance>3 days was MAPS reviewed?: Yes If Rx opioid, was Start Talking consent form obtained?: Yes If opioid is for acute pain is fill amount 7 days or less?: No Was information provided regarding opioid addiction?: Yes
== END | disposition home or self-care (01) ==
LOC: PNWHC3 11:59
PROVIDERS: ATTEND Specialist
DX: G89.29 Other chronic pain (principal); M51.36 Other intervertebral disc degeneration, lumbar region; M47.816 Spondylosis without myelopathy or radiculopathy, lumbar region; M46.96 Unspecified inflammatory spondylopathy, lumbar region; M96.1 Postlaminectomy syndrome, not elsewhere classified; M17.12 Unilateral primary osteoarthritis, left knee; Z87.891 Personal history of nicotine dependence; Z79.84 Long term (current) use of oral hypoglycemic drugs; Z79.899 Other long term (current) drug therapy; Z79.891 Long term (current) use of opiate analgesic; Z79.4 Long term (current) use of insulin
CPT/HCPCS: 99211

== ENCOUNTER 2018-04-02 22:47 | Emergency (ER) | payer MEDICARE, OTHER ==
[2018-04-02] MEDS ORDERED: MORPHINE SULFATE 4 MG/ML SYRINGE IM STA (23:34)
[2018-04-02] MEDS ORDERED: ORPHENADRINE 30 MG/ML 2 ML VIAL IM STA (23:35)
--- NOTE | 2018-04-03 00:22 | XR ---
EXAMINATION TYPE: XR Hip RT and AP Pelvis DATE OF EXAM: 04/03/2018 COMPARISON: NONE HISTORY: Right hip pain TECHNIQUE: A single AP view of the pelvis is obtained. Two views of the right hip are obtained. FINDINGS: The pelvic ring is intact. Proximal right femur and hip joint appear intact. There are rods and screws fusing the posterior lower lumbar spine. IMPRESSION: No acute abnormality of pelvis and right hip. No fracture.
--- NOTE | 2018-04-03 00:31 | XR ---
EXAMINATION TYPE: XR lumbar spine 2 or 3V DATE OF EXAM: 04/03/2018 COMPARISON: 07/27/2017 HISTORY: Back pain TECHNIQUE: 3 views FINDINGS: There is a slight levoscoliosis. There is laminectomy at L5. There is posterior fusion surg ambrose at L5-S1. Sacroiliac joints are intact. There are clips from cholecystectomy. There is no anali leda fracture. IMPRESSION: Previous surgery. No fracture. Spondylotic changes. No change compared to old exam.
--- NOTE | 2018-04-03 00:42 | ED ---
General Adult HPI - General Chief complaint: Back Pain/Injury Stated complaint: low back pain Time Seen by Provider: 04/02/18 23:22 Source: patient, RN notes reviewed Mode of arrival: ambulatory Limitations: no limitations - History of Present Illness Initial comments: 62-year-old female presents to the emergency determine for a chief complaint of right-sided back pain 2 days. Patient states she does have chronic back pain but this is somewhat worse than normal. Patient denies injury. Patient states it is all on the right side and denies any lumbar spine pain. Patient states the pain does radiate to the front of her hip as well. Patient states the pain is worse with movement as well as lying down. Patient denies any fevers or chills at home. Patient denies any saddle anesthesia. Patient denies any bladder or bowel changes. Patient denies any shooting pain down the leg. Patient has chronic numbness in the right lower extremity and states this is unchanged. Patient states she is able to ambulate but it is painful. Patient sees pain management for chronic back pain and currently takes morphine.Patient has no other complaints at this time including shortness of breath, chest pain, abdominal pain, nausea or vomiting, headache, or visual changes. - Related Data Home Medications Medication Instructions Recorded Confirmed Butalb/Acetaminophen/Caffeine 1 tab PO BID PRN 04/11/14 02/11/18 [Fioricet 50-325-40 mg Tablet] INSULIN LISPRO (humaLOG) [humaLOG] See Protocol SQ AC-TID PRN 04/14/14 02/11/18 Budesonide-Formot 160-4.5 Mcg 2 puff INHALATION BID PRN 10/25/15 02/11/18 [Symbicort 160-4.5 Mcg Inhaler] Lisinopril [Zestril] 40 mg PO HS 04/04/16 02/11/18 Insulin Glargine [Lantus] 20 unit SQ HS 05/02/16 02/11/18 Lisinopril-Hctz 20-12.5 mg 1 tab PO DAILY 06/05/17 02/11/18 [Zestoretic 20-12.5] Previous Rx's Medication Instructions Recorded Pantoprazole [Protonix] 40 mg PO AC-BID #60 tablet. 12/19/16 Celecoxib [CeleBREX] 100 mg PO BID PRN #60 cap 02/11/18 Cyclobenzaprine [Flexeril] 10 mg PO BID #60 tab 02/11/18 Morphine Sulfate ER [Ms Contin] 30 mg PO Q12HR #60 tab 02/11/18 Morphine Sulfate ER [Ms Contin] 30 mg PO Q12HR 30 Days #60 tab 02/11/18 Allergies Allergy/AdvReac Type Severity Reaction Status Date / Time ibuprofen [From Motrin] AdvReac Abdominal Verified 04/02/18 23:02 Pain and vomiting Review of Systems ROS Statement: Those systems with pertinent positive or pertinent negative responses have been documented in the HPI. ROS Other: All systems not noted in ROS Statement are negative. Past Medical History Past Medical History: Asthma, COPD, Diabetes Mellitus, GERD/Reflux, Hyperlipidemia, Hypertension, Skin Disorder Additional Past Medical History / Comment(s): Chronic back pain, MIGRAINE HEADACHES. History of Any Multi-Drug Resistant Organisms: MRSA Date of last positivie culture/infection: 2011 MDRO Source:: UNK Past Surgical History: Appendectomy, Back Surgery, Cholecystectomy, Orthopedic Surgery Additional Past Surgical History / Comment(s): Fusion and kane down back. Left Shoulder Replacement, Right knee replacement, plate in right wrist, left thumb joint repair, Right carpal tunnel repair, Right shoulder scope, Cervical fusion. LARYNGOSCOPY. November 2016 Cervical Plate Past Anesthesia/Blood Transfusion Reactions: No Reported Reaction Past Psychological History: Bipolar Smoking Status: Former smoker Past Alcohol Use History: None Reported Past Drug Use History: None Reported - Past Family History Brother(s) Family Medical History: Cancer, Myocardial Infarction ([place]) Father Family Medical History: Cancer Additional Family Medical History / Comment(s): throat, colon, liver, and brain cancer. Mother Family Medical History: Myocardial Infarction ([place]) Additional Family Medical History / Comment(s): at 54 of [place]. General Exam Limitations: no limitations General appearance: alert, in no apparent distress Head exam: Present: atraumatic, normocephalic, normal inspection Eye exam: Present: normal appearance, PERRL, EOMI. Absent: scleral icterus, conjunctival injection, periorbital swelling, periorbital tenderness ENT exam: Present: normal exam, mucous membranes moist Neck exam: Present: normal inspection, full ROM. Absent: tenderness, meningismus, lymphadenopathy Respiratory exam: Present: normal lung sounds bilaterally. Absent: respiratory distress, wheezes, rales, rhonchi, stridor Cardiovascular Exam: Present: regular rate, normal rhythm, normal heart sounds. Absent: systolic murmur, diastolic murmur, rubs, gallop, clicks Extremities exam: Present: full ROM (Full range of motion of the right foot and ankle.), normal capillary refill (Pedal pulse 2+ in the right lower extremity capillary refill less than 2 seconds), other (Sensation intact in the right lower extremity) Back exam: Present: full ROM (Patient is able to stand and ambulate. She has about 45 flexion of the lumbar spine.), paraspinal tenderness (She does have right lower back tenderness around the SI joint. No tenderness to thoracic or lumbar spines.). Absent: CVA tenderness (R), CVA tenderness (L), vertebral tenderness Neurological exam: Present: alert, oriented X3, CN II-XII intact, other (GCS) Psychiatric exam: Present: normal affect, normal mood Course Vital Signs 04/02/18 22:59 Temperature 98.2 F Pulse Rate 94 Respiratory 28 H Rate Blood Pressure 164/111 O2 Sat by Pulse 98 Oximetry Medical Decision Making - Medical Decision Making 71-year-old female presents to the emergency department for chief clean of acute on chronic back pain. Patient states pain is on the right side of the back. Denies bladder or bowel changes saddle anesthesia or radiating pain down the leg. No fevers or chills. Sensation intact in the right lower extremities. Neurovascular intact. Patient does have some limited range of motion of the lumbar spine to about 45 flexion. Patient is able to ambulate as demonstrated in the emergency department. XR lumbar spine xr shows Previous surgery. No fracture. Spondylotic changes. No change compared to old exam. XR of the right hip and pelvis shows no acute abnormality. Patient was given 8 mg of morphine here in the emergency department. This helped somewhat. Patient states she will follow up with pain management tomorrow. She will return if she has any worsening symptoms, saddle anesthesia, or bladder or bowel changes. Disposition Clinical Impression: Right-sided back pain Disposition: HOME SELF-CARE Condition: Good Instructions: Chronic Back Pain (ED) Additional Instructions: Please continue to take morphine at home. Please follow-up with pain management tomorrow. Return to the emergency department if you have any worsening symptoms or difficulty urinating. Is patient prescribed a controlled substance at d/c from ED?: No Referrals: Scarlet Dior MD [Primary Care Provider] - 1-2 days Time of Disposition: 01:29
[2018-04-03] MEDS ORDERED: MORPHINE SULFATE 4 MG/ML SYRINGE IM STA (00:51)
[2018-04-03 01:47] VITALS: BP 160/82; PULSE 91; RESP 18; TEMP 98.6
== END 2018-04-03 01:47 | disposition home or self-care (01) ==
LOC: EC 22:47
DX: M54.5 Low back pain (principal); J44.9 Chronic obstructive pulmonary disease, unspecified; E11.9 Type 2 diabetes mellitus without complications; I10 Essential (primary) hypertension; Z86.14 Personal history of Methicillin resistant Staphylococcus aureus infection; Z87.891 Personal history of nicotine dependence; Z79.4 Long term (current) use of insulin; Z79.899 Other long term (current) drug therapy; Z88.6 Allergy status to analgesic agent; Z98.890 Other specified postprocedural states
CPT/HCPCS: 72100; 73502; 99283; 96372 ×3; J2270 ×2; J2360

== ENCOUNTER 2018-05-08 19:46 | Emergency (ER) | payer MEDICARE, OTHER ==
[2018-05-08 20:14] VITALS: BP 218/107; PULSE 97; RESP 22; TEMP 98.9
[2018-05-08] MEDS ORDERED: CEPHALEXIN 500 MG CAP PO STA (20:43)
--- NOTE | 2018-05-08 20:54 | ED ---
Wound/Laceration HPI - General Chief Complaint: Wound/Laceration Stated Complaint: open wound on foot/diabetic Time Seen by Provider: 05/08/18 20:33 Source: patient, RN notes reviewed Mode of arrival: ambulatory Limitations: no limitations - History of Present Illness Initial Comments: This is a 62-year-old female with history of diabetic neuropathy who presents to the emergency department with chief complaint of foot wounds. Patient states that she baseline does not have feeling in her toes. Patient states her noticed a couple of wounds to the tops of her toes. Told patient to come to the emergency department for evaluation so she would not lose her toes. Patient denies any pain. She denies any specific injuries. She denies fevers or chills, chest pain or shortness of breath, abdominal pain, nausea or vomiting. - Related Data Home Medications Medication Instructions Recorded Confirmed Butalb/Acetaminophen/Caffeine 1 tab PO BID PRN 04/11/14 05/08/18 [Fioricet 50-325-40 mg Tablet] INSULIN LISPRO (humaLOG) [humaLOG] See Protocol SQ AC-TID PRN 04/14/14 05/08/18 Budesonide-Formot 160-4.5 Mcg 2 puff INHALATION RT-BID PRN 10/25/15 05/08/18 [Symbicort 160-4.5 Mcg Inhaler] Lisinopril [Zestril] 40 mg PO HS 04/04/16 05/08/18 Insulin Glargine [Lantus] 20 unit SQ HS 05/02/16 05/08/18 Lisinopril-Hctz 20-12.5 mg 1 tab PO DAILY 06/05/17 05/08/18 [Zestoretic 20-12.5] Previous Rx's Medication Instructions Recorded Pantoprazole [Protonix] 40 mg PO AC-BID #60 tablet. 12/19/16 Celecoxib [CeleBREX] 100 mg PO BID PRN #60 cap 02/11/18 Cyclobenzaprine [Flexeril] 10 mg PO BID #60 tab 02/11/18 Morphine Sulfate ER [Ms Contin] 30 mg PO Q12HR #60 tab 02/11/18 Cephalexin [Keflex] 500 mg PO Q12HR #20 cap 05/08/18 Allergies Allergy/AdvReac Type Severity Reaction Status Date / Time ibuprofen [From Motrin] AdvReac Abdominal Verified 05/08/18 20:29 Pain and vomiting Review of Systems ROS Statement: Those systems with pertinent positive or pertinent negative responses have been documented in the HPI. ROS Other: All systems not noted in ROS Statement are negative. Past Medical History Past Medical History: Asthma, COPD, Diabetes Mellitus, GERD/Reflux, Hyperlipidemia, Hypertension, Skin Disorder Additional Past Medical History / Comment(s): Chronic back pain, MIGRAINE HEADACHES. History of Any Multi-Drug Resistant Organisms: MRSA Date of last positivie culture/infection: 2011 MDRO Source:: UNK Past Surgical History: Appendectomy, Back Surgery, Cholecystectomy, Orthopedic Surgery Additional Past Surgical History / Comment(s): Fusion and kane down back. Left Shoulder Replacement, Right knee replacement, plate in right wrist, left thumb joint repair, Right carpal tunnel repair, Right shoulder scope, Cervical fusion. LARYNGOSCOPY. November 2016 Cervical Plate Past Anesthesia/Blood Transfusion Reactions: No Reported Reaction Past Psychological History: Bipolar Smoking Status: Former smoker Past Alcohol Use History: None Reported Past Drug Use History: None Reported - Past Family History Brother(s) Family Medical History: Cancer, Myocardial Infarction ([place]) Father Family Medical History: Cancer Additional Family Medical History / Comment(s): throat, colon, liver, and brain cancer. Mother Family Medical History: Myocardial Infarction ([place]) Additional Family Medical History / Comment(s): at 54 of [place]. General Exam - General Exam Comments Initial Comments: General: Awake and alert, well-developed; in no apparent distress. HEENT: Head atraumatic, normocephalic. Pupils are equal, round and reactive to light. Extraocular movements intact. Oropharynx moist without erythema or exudate. Neck: Supple. Normal ROM. Cardiovascular: Regular rate and rhythm. No murmurs, rubs or gallops. Chest symmetrical. Pedal pulses are 2+ equal and palpable bilaterally. Respiratory: Lungs clear to auscultation bilaterally. No wheezes, rales or rhonchi. Normal respiratory effort with no use of accessory muscles. Musculoskeletal: Normal ROM bilateral upper and lower extremities. Ambulating normally. Skin: Erythematous superficial abrasion to the right third toe. Small clear fluid-filled blister dorsal fourth toe. Neurological: Alert and oriented x3. CN II-XII grossly intact. Speech is fluent and answers are appropriate. No focal neuro deficits. Psychiatric: Normal mood and affect. No overt signs of depression or anxiety noted. Limitations: no limitations Course Vital Signs 05/08/18 20:09 Temperature 98.9 F Pulse Rate 97 Respiratory 22 Rate Blood Pressure 218/107 O2 Sat by Pulse 98 Oximetry Medical Decision Making - Medical Decision Making This is a 62-year-old female with history of diabetic neuropathy who presents to the emergency department with chief complaint of foot wounds. Patient is a superficial abrasion to the third toe on her right foot and a blister to the fourth toe on her right foot. Denies any fevers. Patient will be started on a course of Keflex. She is to follow-up with her primary care provider. She is in agreement adn voices understanding. She is in no acute distress and will be discharged home at this time. All questions answered. Disposition Clinical Impression: Foot abrasion, non-infected Disposition: HOME SELF-CARE Condition: Good Instructions: Abrasion (ED), Acute Wounds (ED) Additional Instructions: Please take medications as prescribed. Please follow up with primary care provider within 1-2 days. Return to emergency department if symptoms should worsen or any concerns arise. Prescriptions: Cephalexin [Keflex] 500 mg PO Q12HR #20 cap Is patient prescribed a controlled substance at d/c from ED?: No Referrals: Scarlet Dior MD [Primary Care Provider] - 1-2 days Time of Disposition: 20:55
== END 2018-05-08 21:02 | disposition home or self-care (01) ==
LOC: EC 19:46
DX: S90.414A Abrasion, right lesser toe(s), initial encounter (principal); S90.424A Blister (nonthermal), right lesser toe(s), initial encounter; J44.9 Chronic obstructive pulmonary disease, unspecified; I10 Essential (primary) hypertension; E11.40 Type 2 diabetes mellitus with diabetic neuropathy, unspecified; Z87.891 Personal history of nicotine dependence; Z88.6 Allergy status to analgesic agent; Z79.4 Long term (current) use of insulin; Z79.899 Other long term (current) drug therapy; Z86.14 Personal history of Methicillin resistant Staphylococcus aureus infection; X58.XXXA Exposure to other specified factors, initial encounter
CPT/HCPCS: 99282

== ENCOUNTER → 2018-05-22 | Outpatient (CLI) | payer MEDICARE, OTHER ==
[2018-05-22 11:35] VITALS: BP 158/94; PULSE 93; RESP 16
--- NOTE | 2018-05-22 11:57 | P.PN ---
Subjective Progress Note Date: 05/22/18 Principal diagnosis: Failed back surgery syndrome This is a 62-year-old lady with history of lower back pain due to failed back surgery syndrome, morbid obesity, lumbar spondylosis without myelopathy. The patient uses MS Contin 30 mg twice a day and lately she was diagnosed with kidney stones on the right side and she has new right flank pain. Today, pt denies new-onset weakness, bowel/bladder incontinence, or any other signs or symptoms of cauda equina syndrome. There are no signs of acute intoxication, and no indications of medication diversion or overuse. In addition to above, 13-point review of systems is also negative for chest pain , shortness of breath, changes in vision, changes in hearing, new onset weakness , abdominal pain, diarrhea, extreme fatigue, malaise, fever, skin changes, homicidal or suicidal ideation, or bowel or bladder incontinence. Vital Signs: Reviewed in EMR Gen: AAOx3, NAD HEENT: PERRLA,hearing grossly normal Pulm: resp unlabored,CTA Heart:S1,S2, No Mur Neck: supple, trachea midline Neuro exam of the lower extremities: No changes from baseline with symmetrical muscle strength Straight leg raising test: Alonzo's test: Range of motion of the lumbar spine: Facet loading test: Tenderness in the paravertebral musculature: Positive bilaterally Right flank percussionwas painful Neuro: CN II-XII grossly intact, Imaging: Reviewed in EMR/chart Assessment: Failed back surgery syndrome Morbid obesity Lumbar spondylosis without myelopathy New Right kidney stones. patient is scheduled to see a urologist by the end of the month Plan: 1. Explanation: Opioid and psychological risk scores were reviewed. Diagnoses , prognoses, and multiple treatment options including but not limited to physical therapy, interventional therapies, adjuvant medical therapies, narcotic medication therapies, and surgery were discussed with the patient and all questions were answered to the patient's satisfaction. 2. Opioid agreement: Signed with the patient and the patient is warned not to use opioids while driving or before driving and not to combine opioids with benzodiazepines or alcohol. 3. Counseling: The patient was counseled extensively on SMOKING CESSATION, BODY MASS INDEX, EXERCISE. Specifically, the patient was instructed regarding the importance of smoking cessation, obesity, and exercise in the context of both chronic pain and overall health. 4. Procedures: None at this point 5. Consultations: None 6. Investigations: None 7. Medications: MS Contin 30 mg twice a day, Flexeril 10 mg twice a day, I will add [place] 5 mg once a day until the patient sees her urologist for the new kidney stones I will give her only 25 pills with no refills. 8. Disposition: Return to clinic in 2 months 9. Maps were reviewed and were appropriate. Objective - Vital Signs Vital signs: Vital Signs Temp Pulse 93 05/22/18 11:27 Resp 16 05/22/18 11:27 BP 158/94 05/22/18 11:27 Pulse Ox 96 05/22/18 11:27 Intake & Output 05/21/18 05/22/18 05/22/18 18:59 06:59 18:59 Weight 109.769 kg
== END ==
LOC: PNWHC3 11:22
PROVIDERS: ATTEND Anesthesiology
DX: M96.1 Postlaminectomy syndrome, not elsewhere classified (principal); E66.01 Morbid (severe) obesity due to excess calories; M47.816 Spondylosis without myelopathy or radiculopathy, lumbar region; Z79.899 Other long term (current) drug therapy; Z79.891 Long term (current) use of opiate analgesic
CPT/HCPCS: 80307; G0482; G0463; 99211

== ENCOUNTER → 2018-06-17 | Outpatient (CLI) | payer MEDICARE, OTHER ==
--- NOTE | 2018-06-17 14:49 | CT ---
EXAMINATION TYPE: CT abdomen pelvis wo con DATE OF EXAM: 06/17/2018 COMPARISON: 04/04/2016 HISTORY: Right kidney stone CT DLP: 1266.80 mGycm Examination of the solid and hollow viscera is limited given the lack of contrast. FINDINGS: LUNG BASES: No evidence for nodule. No evidence for infiltrate. LIVER/GB: Gallbladder surgically absent. No space-occupying hepatic lesion. PANCREAS: No pancreatic mass identified. No inflammatory process seen. SPLEEN: No evidence for splenomegaly. No intrasplenic lesions seen. ADRENALS: No adrenal nodules identified. No evidence for thickening. KIDNEYS: No evidence for renal mass. No nephrolithiasis. No hydronephrosis. BOWEL: Appendix has a normal appearance. No evidence of bowel obstruction. No inflammatory process. Lymph nodes: No evidence for adenopathy greater than 1 cm. Abdominal aorta: Atheromatous changes seen. No evidence for aneurysm. Genital organs: No significant abnormality. Other: Postoperative changes of the lumbar laminectomy. Degenerative changes noted. IMPRESSION: NO EVIDENCE FOR NEPHROLITHIASIS OR HYDRONEPHROSIS.
== END | disposition home or self-care (01) ==
LOC: RADCTMAIN 14:16
PROVIDERS: ATTEND Urology
DX: N20.0 Calculus of kidney (principal); Z88.6 Allergy status to analgesic agent
CPT/HCPCS: 74176

== ENCOUNTER 2018-07-31 09:39 | Day surgery (SDC) | payer MEDICARE, OTHER ==
[2018-07-30 10:08] VITALS: BMI 41.1
[~2018-07-31 09:39] MED LIST changes: -IV FLUID CONTINUATION 1,000 ML IV ONE; -LACTATED RINGERS 1,000 ML IV SCH; -LIDOCAINE 1% 20 ML VIAL (10MG/ML) FOR IV START INTRADERMA ONE; +SODIUM CHLORIDE 0.9% 500 ML 500 ML IV SCH; -fentaNYL (PF) 50 MCG/ML 2 ML AMP IV ONE
[2018-07-31 11:35] LABS: Glucose,Whole Blood 143 mg/dL (75-99)
[2018-07-31 11:38] VITALS: RESP 16; TEMP 979
[2018-07-31] MEDS ORDERED: LACTATED RINGERS 1,000 ML IV ONE (11:39)
--- NOTE | 2018-07-31 11:57 | P.PCN ---
Date of Procedure: 07/31/18 Procedure(s) Performed: Procedure= Right cluneal nerve steroid injection under fluoroscopy guidance Preoperative diagnosis= 1-right cluneal neuralgia 2-lumbar spondylosis with facet arthropathy Postoperative diagnosis= same as preop diagnoses Complication = none Condition= stable Anesthesia= moderate sedation with intravenous Versed 2 mg , and fentanyl 100 micrograms and local infiltration with lidocaine 1% 5 mL Indication for the procedure= patient complaining of low back pain , diagnosed with right cluneal neuralgia she is here to have right cluneal nerve block Description of the procedure= procedure risk and benefits discussed with the patient, including but not limited, risk of infection and bleeding, and ALLERGIC reaction to the medication and not complete pain relief and patient agreed with the preceding patient taken to the operating room, placed in prone position or standard monitors applied to the patient then after induction of anesthesia back prepped with chlorhexidine 3 times , Then under strict sterile technique, first I did the right sacroiliac joint the which was identified under fluoroscopy guidance been local infiltration of the skin and subcu interstitial with lidocaine 1% then 22-gauge [place]ke Needle advanced slowly under fluoroscopy and placed in the right cluneal nerve area needle placement confirmed with AP and oblique and lateral view and after appropriate needle placement confirmed and after negative aspiration, or heme , then Ropivacaine 0.5% 5mL, and 40 mg of Depo-Medrol , mixed together and injected after negative aspiration patient tolerated the procedure well without complication
--- NOTE | 2018-07-31 12:05 | FL ---
Fluoroscopy INDICATION: Pain FINDINGS: Fluoroscopy time: 23 seconds. Images obtained: 2. IMPRESSIONS: 1. Documentation of fluoroscopy.
[2018-07-31] MEDS ORDERED: IV FLUID CONTINUATION 1,000 ML IV ONE ×2 (12:16)
[2018-07-31 12:20] VITALS: BP 153/88; PULSE 75
== END 2018-07-31 12:38 | disposition home or self-care (01) ==
LOC: ORPAIN 09:39
PROVIDERS: ATTEND Specialist
DX: G58.8 Other specified mononeuropathies (principal); M47.816 Spondylosis without myelopathy or radiculopathy, lumbar region
CPT/HCPCS: 64450; J2250; J1030; J3010

== ENCOUNTER → 2018-09-11 | Outpatient (CLI) | payer MEDICARE, OTHER ==
[2018-09-11 12:23] VITALS: BP 165/92; PULSE 78; RESP 16
--- NOTE | 2018-09-11 13:13 | P.PN ---
Subjective Progress Note Date: 09/11/18 This is follow-up visit for this patient with a history of severe and chronic low back pain secondary to lumbar failed back surgery syndrome, lumbar facet arthropathy, And left knee pain diagnosed with left knee osteoarthritis , and right sacroiliitis We have an interventional pain procedure diagnostic medial branch block lumbar area she had no benefit from it, and we have done a right sacroiliac joint steroid injection she had minimal benefit from it ,and we did left knee steroid injections 2 she reported that the injection helped her left knee pain significantly , Patient continued to have severe low back pain mainly on the right side above the buttock area. And she is diagnosed with right cluneal nerve neuralgia Recently we have none right standard cluneal nerve block she reports she had no benefit from the The patient currently on MS Contin 30 mg twice a day ,and Flexeril 10 mg twice a day Patient denies any side effect of the medication , patient denies any excessive drowsiness or sleepiness, patient denies any suicidal ideation, Patient reported that the current medication is helping to control the pain and improve the activity of daily livings, Patient denies any motor or sensory deficit, denies any change in the bowel movement or urination, patient denies any fever or night sweats. Patient here today for follow-up visit and medication refill Physical Examinations : 1-Constitutiona : Cooperative , not in acute distress . 2-HEENT : nech ; supple , no Lymphadenopathy , normal thyroid size . eyes : no ptosis , no icterus , no photophobia . ENT : normal of hearing , normal oropharynx , no Thrush . 3- Respiratory : Chest clear to auscultations Bilaterally , no wheezing , no Rhonchi . 4- Cardiovascular : regular rate and rhythem , S1 , S2 , no S3 , no S4. 5- Gastrointestinal : abdomen soft no tenderness , bowel sounds , no organomegally . 6- Genitourinary : Defferred . 7- neurologic : Cranial nerve II to XII intact , no focal neurological deffecit . 8-psychatric : alert , oriented X 3 , appropriate affect , intact judgment and insight . 9-Lymphatic : no Lymphadenopathy . 10- musculoskeltal : cervical spine = motor stregnth in the deltoid and biceps, motor stregnth biceps and the wrist extensors (C6) . motor stregnth in the triceps muscle . deep tendon reflexes normal at the biceps Right , Left normal at the brachioradia Right , Left Normal at the triceps Right ,Left Limited ability to abduct and adduct left shoulder secondary to pain , Lumber spine = normal moter stegnth lower extremities ,thigh and legs .5/5 deep tendon reflexes : normal Knee Jerk , normal ankle Jerk . lumber facet Loading Test positive strait leg raising test positive at 30 degree Right , positve at 30 degree Left Fabere test positive Right and positive Left Severe tenderness over the right sacroiliac joint. Severe tenderness over the right-sided iliac crest area Assessment and plan= chronic low back pain secondary to lumbar degenerative disc disease , lumbar spondylosis with lumbar facet arthropathy . Failed back surgery syndrome and lumbar area She had no benefit from diagnostic medial branch block lumbar area Left knee osteoarthritis status post left knee steroid injections 2 and the pain improved Right sacroiliitis, patient had no benefit after the right sacroiliac joint steroid injection. Right side cluneal nerve neuralgia , patient had no benefit from the right side cluneal nerve block chronic and current use of high-risk medication (opioids) Patient denies any side effects of the current pain medication and the current treatment/medication helping the patient to do activity of daily living , Diagnoses, prognosis, treatment options, including but not limited to physical therapy, medication management, interventional therapies, and surgery, were discussed with the patient All the questions answered The narcotic consent was signed and patient agreed and understood the side effects and complications of opioid treatment. Patient signed the narcotic agreement, and was orally counseled, not to overuse, not to abuse, not to Divert , not tp sell pain medication, and to take it as prescribed only, Patient was counseled not to drive or operate heavy equipment while using narcotic medication, and advised not to use alcohol or any Illicit drugs while using the narcotis. understanding that lack of compliance with any of the above instructions, will likely to cause discharge from, the pain service, not to renew his narcotic prescriptions Medication managements= patient will be given prescription refills for MS Contin 30 mg every 12 hours dispense 60 with 1 refill and Flexeril 10 mg twice a day dispense 60 with 1 refill Interventions= none . MAPS reviewed and it was appropriate. Urine drug screen reviewed from previous visit and it showed that patient had high level of morphine, and negative for hydromorphone , ( metabolites of morphine ), which is a very and usually will resolve for this reason we will repeat the urine drug screen, and if we get similar result and have to discuss this result with the labs . , PQRS Measure Charge Sheet Measure #130: Documentation of Current Meds in Medical Chart: Patient's medications documented in chart Measure #226: Tobacco Use: Screen & Cessation Intervention: Pt not a tobacco user Measure #111: Pneumonia Vaccination: Pneumococcal vaccine administered or previously given Measure #47: Advance Care Plan: Advance care planning discussed & documented, plan or surrogate given Measure #412: Opioid Treatment Agreement: Documented signed opioid trtmnt agreemnt min once during opioid trtmnt Measure #408: Opioid Therapy Follow-up Evaluation: Patient had f/u eval minimum every 3 months during opioid therapy Measure #317: Preventitive Care & Scrn High Bld Press & F/U: Pre-hypertensive or hypertensive BP documented, pt will f/u with PCP Measure #128: Body Mass Index (BMI) Screening & Follow-up: BMI documented ABOVE normal parameters - f/u documented Measure #131: Pain Assessment & Follow-up: Pain positive & plan documented, Follow-up scheduled Measure #431: Unhealthy Alcohol Use Preventative Care & Scrn: Patient not identified as an unhealthy alcohol user PQRS Narrative: - Controlled Substance Measures Is patient prescribed a controlled substance at discharge?: Yes When asked, does pt state using other controlled substances?: no If prescribed controlled substance>3 days was MAPS reviewed?: Yes If Rx opioid, was Start Talking consent form obtained?: Yes If opioid is for acute pain is fill amount 7 days or less?: No Was information provided regarding opioid addiction?: Yes Objective - Vital Signs Vital signs: Vital Signs Temp Pulse 78 09/11/18 12:12 Resp 16 09/11/18 12:12 BP 165/92 09/11/18 12:12 Pulse Ox 95 09/11/18 12:12 Intake & Output 09/10/18 09/11/18 09/11/18 18:59 06:59 18:59 Weight 95.254 kg
== END ==
LOC: PNWHC3 11:13
PROVIDERS: ATTEND Specialist
DX: G89.29 Other chronic pain (principal); M51.36 Other intervertebral disc degeneration, lumbar region; M47.816 Spondylosis without myelopathy or radiculopathy, lumbar region; M46.96 Unspecified inflammatory spondylopathy, lumbar region; M96.1 Postlaminectomy syndrome, not elsewhere classified; Z79.891 Long term (current) use of opiate analgesic; Z79.899 Other long term (current) drug therapy
CPT/HCPCS: 80307; G0482; G0463; 99211

== ENCOUNTER → 2018-09-24 | Outpatient (CLI) | payer MEDICARE, OTHER ==
--- NOTE | 2018-09-25 08:21 | MR ---
EXAMINATION TYPE: MR lumbar spine wo/w con DATE OF EXAM: 09/24/2018 COMPARISON: CT abdomen and pelvis June 17, 2018. Prior MRI lumbar spine February 10, 2013. Most recent lumbar spine x-ray April 03, 2018. HISTORY: Low back pain, Prev. Surgery 2005, Gadavist 10ml TECHNIQUE: Multiplanar, multisequence images of the lumbar spine is performed without and with IV contrast, util izing 10 mL intravenous Gadavist FINDINGS: Sagittal images of the lumbar spine show vertebral body heights to remain satisfactory. Los s of normal lumbar lordosis is redemonstrated. Artifact from posterior fusion hardware L5-S1 levels i s again seen. There are bilateral laminectomy defects and spinous process resection at L5 level. Ther e is multilevel disc desiccation with moderate multilevel disc space narrowing and vacuum disc phenom enon. Few small posterior disc herniations are seen in the upper to mid lumbar spine on sagittal imag es effacing anterior thecal sac. The conus medullaris is normal in position and signal ending at T12- L1 disc space level. There are heterogeneous predominantly Modic type II endplate changes with mild t o moderate multilevel anterior spurring throughout the lumbar spine. No suspicious postcontrast enhan cement is seen. Axial images at the T12-L1 level shows mild/moderate broad disc bulge mildly effacing anterior thecal sac with mild facet degenerative changes seen bilaterally. Bilateral neural foramina are patent. Axial images at the L1-L2 level show mild/moderate broad disc bulge effacing anterior thecal sac. The re is mild to moderate facet degenerative changes seen bilaterally. Bilateral neural foramina show mi ld right-sided anterior inferior neural foraminal narrowing. Axial images at L2-L3 level show moderate broad disc bulge with right lateral disc protrusion compone nt. There is mild to moderate facet degenerative changes seen bilaterally. There is effacement of the anterior thecal sac. Left-sided neural foramen is patent. Right-sided neural foramina shows mild to moderate anterior inferior neural foraminal narrowing. Axial images at the L3-L4 level show mild/moderate broad disc bulge mildly effacing anterior thecal s ac with mild facet degenerative changes bilaterally. There is mild left greater than right bilateral anterior inferior neural foraminal narrowing at this level identified. Axial images at the L4-L5 level show artifact from posterior fusion hardware. There is mild/moderate facet degenerative changes bilaterally. There is mild to moderate broad disc bulge minimally effacing anterior thecal sac. There is mild left and moderate to advanced right-sided neural foraminal narrow ing. Encroachment on right L4 nerve is difficult to exclude. Axial images at L5-S1 level show bilateral laminectomy defects and spinous process resection. Artifac t from artificial disc material is also present. Spinal canal is grossly preserved. Left-sided neural foramina is felt patent. Right-sided neural foramina is felt patent seen best on sagittal images. No suspicious incidental retroperitoneal findings are seen. IMPRESSION: Redemonstration of postsurgical change L5-S1 level with stable and satisfactory alignment . Successful posterior decompression noted. Multilevel degenerative changes throughout the lumbar spi ne as detailed above with progression from 2013 MRI noted.
== END | disposition home or self-care (01) ==
LOC: RADMRIMAIN 14:21
PROVIDERS: ATTEND Nurse Practitioner Family
DX: M47.816 Spondylosis without myelopathy or radiculopathy, lumbar region (principal); M54.41 Lumbago with sciatica, right side; E11.65 Type 2 diabetes mellitus with hyperglycemia; Z98.1 Arthrodesis status; Z98.890 Other specified postprocedural states
CPT/HCPCS: 82565; 72158; 36415; A9585

== ENCOUNTER → 2018-11-06 | Outpatient (CLI) | payer MEDICARE, OTHER ==
[2018-11-06 13:24] VITALS: BP 179/101; PULSE 86; RESP 16
--- NOTE | 2018-11-06 14:39 | P.PAINPG ---
Subjective Progress Note Date: 11/06/18 Principal diagnosis: Lumbar spondylosis, lumbar spinal stenosis, lumbar radiculopathy This a pleasant 63-year-old woman with a history of low back pain who is maintained on morphine therapy. She presents today for medication management. She reports that the medications do help control her pain and she is interested in continuing with these. She is aware of the risks and benefits of the medicine. She reports that she does get medications locked away as she has 4 young grandchildren who staff at her house. She is currently suffering from upper respiratory tract infection and attributes this to these children. She denies any bowel or bladder dysfunction. She denies any new neurologic symptoms. Objective - Vital Signs Vital signs: Vital Signs Temp Pulse 86 11/06/18 13:17 Resp 16 11/06/18 13:17 BP 179/101 11/06/18 13:17 Pulse Ox 98 11/06/18 13:17 Intake & Output 11/05/18 11/06/18 11/06/18 18:59 06:59 18:59 Weight 99.79 kg - Exam General: The patient is alert and oriented. Patient is not sedated Patient answers all question appropriately. Cardiac: Heart is regular in rate and rhythm Respiratory: Clear to auscultation. No audible wheezes. She does have some coughing and nasal drainage consistent with her diagnosis of upper respiratory tract infection Abdomen: Soft nontender nondistended. Musculoskeletal: Strength is normal bilaterally. Sensation is normal bilaterally. Straight leg raise is negative bilaterally. Tender to palpation over the lumbar facet joints. Neurological: Reflexes are preserved and symmetric bilaterally. Assessment and Plan (1) Lumbar spinal stenosis Narrative/Plan: I will refill the patient's medications today. I reviewed her urine drug screen. He is positive for morphine. This is consistent with her maps report and her prescription history. Her urine drug screen is negative for hydromorphone however this is a minor metabolite of morphine and not always present. There are no other indications of apparent behavior therefore I do not think the absence of this metabolite is indication of any aberrant behavior. She also is positive for barbiturates however she does take Fioricet which can test positive for this medication. She does not take this medicine every day and therefore she was negative for this on her last urine drug screen. She will follow-up in 2 months. Current Visit: Yes Status: Acute Code(s): M48.061 - SPINAL STENOSIS, LUMBAR REGION WITHOUT NEUROGENIC JUAN A SNOMED Code(s): 05801133 (2) Lumbar spondylosis Current Visit: Yes Status: Acute Code(s): M47.816 - SPONDYLOSIS W/O MYELOPATHY OR RADICULOPATHY, LUMBAR REGION SNOMED Code(s): 653882808 PQRS Measure Charge Sheet Measure #130: Documentation of Current Meds in Medical Chart: Patient's medications documented in chart Measure #226: Tobacco Use: Screen & Cessation Intervention: Pt not a tobacco user Measure #111: Pneumonia Vaccination: Pneumococcal vaccine administered or previously received Measure #47: Advance Care Plan: Advance care planning discussed & documented, plan or surrogate given Measure #412: Opioid Treatment Agreement: Documented signed opioid trtmnt agreemnt min once during opioid trtmnt Measure #408: Opioid Therapy Follow-up Evaluation: Patient had f/u eval minimum every 3 months during opioid therapy Measure #317: Preventitive Care & Scrn High Bld Press & F/U: Pre-hypertensive or hypertensive BP documented, pt will f/u with PCP Measure #128: Body Mass Index (BMI) Screening & Follow-up: BMI documented ABOVE normal parameters - f/u documented Measure #131: Pain Assessment & Follow-up: Pain positive & plan documented Measure #431: Unhealthy Alcohol Use Preventative Care & Scrn: Patient not identified as an unhealthy alcohol user PQRS Narrative: Smoking Status Former smoker Do You Want the Pneumonia No Vaccine AT THIS TIME? Narcotic Agreement Date Signed 02/11/18 Blood Pressure 179/101 Pain Intensity [Bilateral 10 Lower Back] Scale Used Numeric (1 - 10) Hx Alcohol Use (MH) No Home Medications: Ambulatory Orders Butalb/Acetaminophen/Caffeine [Fioricet 50-325-40 mg Tablet] 1 tab PO BID PRN 04/11/14 INSULIN LISPRO (humaLOG) [humaLOG] See Protocol SQ AC-TID PRN 04/14/14 Budesonide-Formot 160-4.5 Mcg [Symbicort 160-4.5 Mcg Inhaler] 2 puff INHALATION RT-BID PRN 10/25/15 Lisinopril [Zestril] 40 mg PO HS 04/04/16 Insulin Glargine [Lantus] 60 unit SQ HS 05/02/16 Pantoprazole [Protonix] 40 mg PO AC-BID #60 tablet. 12/19/16 Lisinopril-Hctz 20-12.5 mg [Zestoretic 20-12.5] 1 tab PO DAILY 06/05/17 Celecoxib [CeleBREX] 100 mg PO BID PRN #60 cap 02/11/18 Cyclobenzaprine [Flexeril] 10 mg PO BID #60 tab 09/11/18 Morphine Sulfate ER [Ms Contin] 30 mg PO Q12H 30 Days #60 tab 09/11/18 Controlled Substance Measures - Controlled Substance Measures Is patient prescribed a controlled substance at discharge?: Yes When asked, does pt state using other controlled substances?: No If prescribed controlled substance>3 days was MAPS reviewed?: Yes
== END ==
LOC: PNWHC3 12:34
PROVIDERS: ATTEND Pain Medicine Pain Medicine
DX: M48.061 Spinal stenosis, lumbar region without neurogenic claudication (principal); M47.26 Other spondylosis with radiculopathy, lumbar region; J06.9 Acute upper respiratory infection, unspecified; Z79.891 Long term (current) use of opiate analgesic; Z87.891 Personal history of nicotine dependence; Z79.1 Long term (current) use of non-steroidal anti-inflammatories (NSAID); Z79.899 Other long term (current) drug therapy
CPT/HCPCS: 99211

== ENCOUNTER 2018-11-19 06:45 | Day surgery (SDC) | payer MEDICARE, OTHER ==
[2018-11-12 13:05] VITALS: BMI 40.2
[2018-11-19] MEDS ORDERED: LIDOCAINE 1% 20 ML VIAL (10MG/ML) FOR IV START INTRADERMA ONE (07:20)
[2018-11-19] MEDS ORDERED: LACTATED RINGERS 1,000 ML IV ONE (07:20)
[2018-11-19 07:39] VITALS: TEMP 97.9
[2018-11-19 07:40] VITALS: RESP 18
[2018-11-19 07:57] LABS: Glucose,Whole Blood 143 mg/dL (75-99)
[2018-11-19] MEDS ORDERED: IV FLUID CONTINUATION 600 ML IV ONE (08:11)
[2018-11-19 08:30] VITALS: BP 166/84; PULSE 89
--- NOTE | 2018-11-19 08:47 | P.PCN ---
Date of Procedure: 11/19/18 Operative Findings: PREOPERATIVE DIAGNOSIS: 1-lumbar radiculopathy POSTOPERATIVE DIAGNOSIS: Lumbar radiculopathy PROCEDURE 1. Lumbar epidural steroid injection under fluoroscopic guidance at the L 3/4 level. 2. Lumbar epidurogram. ANESTHESIA: Local with 1% lidocaine 5 ml EBL: Minimal PROCEDURE INDICATION: The patient with low back pain and radiculitis symptoms unresponsive to conservative treatment. Fluoroscopy was used to optimize visualization of the needle placement and to maximize safety. PROCEDURE DESCRIPTION / TECHNIQUE: The patient was seen and identified in the preoperative area. Risks, benefits, complications including but not limited to infections ,bleeding ,allergic reaction to the medications ,nerve damage and incomplete pain relief , as well as alternatives to the procedure were discussed with the patient. The patient agreed to proceed with the procedure and signed the consent. IV was started, and vital signs were stable. Patient was taken to the OR and time out was completed. The patient was placed in the prone position on procedure table and a pillow was placed under the abdomen to reduce lumbar lordosis. The lumbosacral area was prepped and draped in the usual sterile fashion. Vitals were closely monitored during the procedure. Using anterior-posterior fluoroscopy, the L L 3/4 interlaminar space was identified and the skin over this site was marked and then infiltrated with 1% lidocaine subcutaneously. Subsequently, a 20-gauge Tuohy epidural needle was inserted and advanced toward the epidural space using the ``Loss of resistance technique and guided by AP and lateral fluoroscopy. The correct needle position in the epidural space was verified with the injection of 1 mL of the water soluble contrast dye Omnipaque 180 contrast and observing an excellent epidurogram with the epidural spread of the dye, after negative aspiration for blood and CSF and in the absence of paresthesias. Again after negative aspiration, a 4 ml mixture containing 40 mg of Kenalog and 3 ml of preservative free Normal Saline was injected and a washout of epidurogram was seen. Needle was withdrawn intact, skin was cleansed, and bandages were applied. COMPLICATIONS: None DISPOSITION / PLANS: The patient was placed in a supine position and transferred to the recovery area in a stable condition for observation. There was no evidence of lower extremity motor or sensory deficit after the procedure. Patient was discharged from the recovery room after meeting discharge criteria. Home discharge instructions were given to the patient by the staff. The patient was reexamined prior to discharge. The patient will schedule a follow up in the clinic in 2-4 weeks.
--- NOTE | 2018-11-19 08:48 | FL ---
Fluoroscopy INDICATION: Pain FINDINGS: Fluoroscopy time: 4 seconds. Images obtained: 1. IMPRESSIONS: 1. Documentation of fluoroscopy.
== END 2018-11-19 08:43 | disposition home or self-care (01) ==
LOC: ORPAIN 06:45
PROVIDERS: ATTEND Hospitalist
DX: M54.16 Radiculopathy, lumbar region (principal); E11.9 Type 2 diabetes mellitus without complications
CPT/HCPCS: 62323; J3301; Q9966

== ENCOUNTER → 2018-12-31 | Outpatient (CLI) | payer MEDICARE, OTHER ==
[2018-12-31 12:36] VITALS: BP 166/81; PULSE 91; RESP 16
--- NOTE | 2019-01-01 06:01 | P.PN ---
Subjective Progress Note Date: 12/31/18 This is follow-up visit for this 63 years old Female with a history of severe and chronic low back pain , is diagnosed with lumbar radiculopathy, lumbar facet arthropathy , previously we have done lumbar epidural steroid injection and she'll get good pain relief The patient currently on MS Contin 30 mg twice a day ,and Flexeril 10 mg twice a day Patient denies any side effect of the medication , patient denies any excessive drowsiness or sleepiness, patient denies any suicidal ideation, Patient reported that the current medication is helping to control the pain and improve the activity of daily livings, Patient denies any motor or sensory deficit, denies any change in the bowel movement or urination, patient denies any fever or night sweats. Patient here today for follow-up visit and medication refill Physical Examinations : 1-Constitutiona : Cooperative , not in acute distress . 2-HEENT : nech ; supple , no Lymphadenopathy , normal thyroid size . eyes : no ptosis , no icterus, no photophobia . ENT : normal of hearing , normal oropharynx , no Thrush . 3- Respiratory : Chest clear to auscultations Bilaterally , no wheezing , no Rhonchi . 4- Cardiovascular : regular rate and rhythem , S1 , S2 , no S3 , no S4. 5- Gastrointestinal : abdomen soft no tenderness , bowel sounds , no organomegally . 6- Genitourinary : Defferred . 7- neurologic : Cranial nerve II to XII intact , no focal neurological deffecit . 8-psychatric : alert , oriented X 3 , appropriate affect , intact judgment and insight . 9-Lymphatic : no Lymphadenopathy . 10- musculoskeltal : , Lumber spine = normal moter stegnth lower extremities ,thigh and legs .5/5 deep tendon reflexes : normal Knee Jerk , normal ankle Jerk . lumber facet Loading Test positive strait leg raising test positive at 30 degree Right , positve at 30 degree Left Fabere test positive Right and positive Left Severe tenderness over the sacroiliac joint Assessment and plan= Lumbar Radiculopathy , lumbar spondylosis with lumbar facet arthropathy . chronic and current use of high-risk medication (opioids) Patient denies any side effects of the current pain medication and the current treatment/medication helping the patient to do activity of daily living , Diagnoses, prognosis, treatment options, including but not limited to physical therapy, medication management, interventional therapies, and surgery, were discussed with the patient All the questions answered The narcotic consent was signed and patient agreed and understood the side effects and complications of opioid treatment. Patient signed the narcotic agreement, and was orally counseled, not to overuse, not to abuse, not to Divert , not tp sell pain medication, and to take it as prescribed only, Patient was counseled not to drive or operate heavy equipment while using narcotic medication, and advised not to use alcohol or any Illicit drugs while using the narcotis. understanding that lack of compliance with any of the above instructions, will likely to cause discharge from, the pain service, not to renew his narcotic prescriptions Medication managements= patient will be given prescription refills for MS Contin 30 mg every 12 hours dispense 60 with 1 refill and Flexeril 10 mg twice a day dispense 60 with 1 refill Interventions= none . MAPS reviewed and it was appropriate. Patient could benefit from repeat lumbar epidural steroid injections at L4-L5 or L5-S1 , PQRS Measure Charge Sheet Measure #130: Documentation of Current Meds in Medical Chart: Patient's medications documented in chart Measure #226: Tobacco Use: Screen & Cessation Intervention: Pt not a tobacco user Measure #111: Pneumonia Vaccination: Pneumococcal vaccine administered or previously given Measure #47: Advance Care Plan: Advance care planning discussed & documented, plan or surrogate given Measure #412: Opioid Treatment Agreement: Documented signed opioid trtmnt agreemnt min once during opioid trtmnt Measure #408: Opioid Therapy Follow-up Evaluation: Patient had f/u eval minimum every 3 months during opioid therapy Measure #317: Preventitive Care & Scrn High Bld Press & F/U: Pre-hypertensive or hypertensive BP documented, pt will f/u with PCP Measure #128: Body Mass Index (BMI) Screening & Follow-up: BMI documented ABOVE normal parameters - f/u documented Measure #131: Pain Assessment & Follow-up: Pain positive & plan documented, Follow-up scheduled Measure #431: Unhealthy Alcohol Use Preventative Care & Scrn: Patient not identified as an unhealthy alcohol user PQRS Narrative: - Controlled Substance Measures Is patient prescribed a controlled substance at discharge?: Yes When asked, does pt state using other controlled substances?: no If prescribed controlled substance>3 days was MAPS reviewed?: Yes If Rx opioid, was Start Talking consent form obtained?: Yes If opioid is for acute pain is fill amount 7 days or less?: No Was information provided regarding opioid addiction?: Yes Objective - Vital Signs Vital signs: Vital Signs Temp Pulse 91 12/31/18 12:32 Resp 16 12/31/18 12:32 BP 166/81 12/31/18 12:32 Pulse Ox 94 L 12/31/18 12:32 Intake & Output 12/31/18 12/31/18 01/01/19 06:59 18:59 06:59 Weight 102.058 kg
== END | disposition home or self-care (01) ==
LOC: PNWHC3 12:11
PROVIDERS: ATTEND Specialist
DX: G89.29 Other chronic pain (principal); M47.26 Other spondylosis with radiculopathy, lumbar region; M46.86 Other specified inflammatory spondylopathies, lumbar region; F11.20 Opioid dependence, uncomplicated
CPT/HCPCS: 99211

== ENCOUNTER 2019-01-06 06:33 | Day surgery (SDC) | payer MEDICARE, OTHER ==
[2019-01-02 13:15] VITALS: BMI 40.2
[2019-01-06 07:16] VITALS: RESP 16; TEMP 98.6
[2019-01-06 07:32] LABS: Glucose,Whole Blood 134 mg/dL (75-99)
--- NOTE | 2019-01-06 07:36 | P.PCN ---
Date of Procedure: 01/06/19 Anest[place]: [facility] [place] of Procedure: PREOPERATIVE DIAGNOSIS: lumbar radiculopathy POSTOPERATIVE DIAGNOSIS: Lumbar radiculopathy PROCEDURE 1. Lumbar epidural steroid injection under fluoroscopic guidance at the L4 5 lev el. 2. Lumbar epidurogram. ANESTHESIA: Local with 1% lidocaine 5 ml EBL: Minimal PROCEDURE INDICATION: The patient with low back pain and radiculitis symptoms unresponsive to conservative treatment. Fluoroscopy was used to optimize visualization of the needle placement and to maximize safety. PROCEDURE DESCRIPTION / TECHNIQUE: The patient was seen and identified in the preoperative area. Risks, benefits, complications including but not limited to infections ,bleeding ,allergic reaction to the medications, nerve damage and incomplete pain relief , as well as alternatives to the procedure were discussed with the patient. The patient agreed to proceed with the procedure and signed the consent. IV was started, and vital signs were stable. Patient was taken to the OR and time out was completed. The patient was placed in the prone position on procedure table and a pillow was placed under the abdomen to reduce lumbar lordosis. The lumbosacral area was prepped and draped in the usual sterile fashion. Vitals were closely monitored during the procedure. Using anterior-posterior fluoroscopy, the L 4/5 interlaminar space was identif ied and the skin over this site was marked and then infiltrated with 1% lidocaine subcutaneously. Subsequently, a 20-gauge Tuohy epidural needle was inserted and advanced toward the epidural space using the Loss of resistance technique and guided by AP and lateral fluoroscopy. The correct needle position in the epidural space was verified with the injection of 1 mL of the water soluble contrast dye Omnipaque 180 contrast and observing an excellent epidurogram with the epidural spread of the dye, after negative aspiration for blood and CSF and in the absence of paresthesias. Again after negative aspiration, a 3 ml mixture containing 40mg of depomedrol and 2 ml of preservative free Normal Saline was injected and a washout of epidurogram was seen. Needle was withdrawn intact, skin was cleansed, and bandages were applied. COMPLICATIONS: None DISPOSITION / PLANS: The patient was placed in a supine position and transferred to the recovery area in a stable condition for observation. There was no evidence of lower extremity motor or sensory deficit after the procedure. Patient was discharged from the recovery room after meeting discharge criteria. Home discharge instructions were given to the patient by the staff. The patient was reexamined prior to discharge. The patient will follow up as directed.
[2019-01-06 08:18] VITALS: BP 190/99; PULSE 95
--- NOTE | 2019-01-06 08:43 | FL ---
EXAMINATION TYPE: FL guided pain mgmt statistic DATE OF EXAM: 01/06/2019 HISTORY: Flouroscopy time 2 seconds of fluoroscopy provided. IMPRESSION: 1. Fluoroscopy time.
== END 2019-01-06 08:36 | disposition home or self-care (01) ==
LOC: ORPAIN 06:33
PROVIDERS: ATTEND Hospitalist
DX: G89.29 Other chronic pain (principal); M47.26 Other spondylosis with radiculopathy, lumbar region; E11.9 Type 2 diabetes mellitus without complications; Z79.891 Long term (current) use of opiate analgesic; Z79.899 Other long term (current) drug therapy
CPT/HCPCS: 62323; J1030; Q9966

== ENCOUNTER 2019-01-12 12:30 | Emergency (ER) | payer MEDICARE, OTHER ==
[2019-01-12 12:41] VITALS: RESP 18
[2019-01-12] MEDS ORDERED: DIAZEPAM 5 MG/ML 2 ML INJ IM ONE (13:48)
[2019-01-12] MEDS ORDERED: DEXAMETHASONE SOD PHOSPHATE 10 MG/ML 1 ML VIAL IM STA (13:48)
[2019-01-12] MEDS ORDERED: HYDROmorphone 1 MG/ML 1 ML SYRINGE IM STA (13:48)
--- NOTE | 2019-01-12 13:52 | ED ---
General Adult HPI - General Chief complaint: Back Pain/Injury Stated complaint: Back pain Time Seen by Provider: 01/12/19 13:39 Source: patient, RN notes reviewed, old records reviewed Mode of arrival: wheelchair Limitations: no limitations - History of Present Illness Initial comments: 63-year-old female presenting with right lower back pain. Pain is been present for the past one week. She has chronic back pain but states that this pain is been more severe for the past one week. She denies fever or chills. She reports lower extremity numbness which is unchanged from baseline. She's had previous lumbar laminectomy. She follows with pain management. She is currently on Flexeril and oral morphine at home. She states these of only been helping a little. Denies any trauma but states she had worsening pain with movement which began at the onset of her symptoms. She denies abdominal pain. Denies nausea vomiting. Denies dysuria or hematuria. Denies loss of bowel or bladder function - Related Data Home Medications Medication Instructions Recorded Confirmed Butalb/Acetaminophen/Caffeine 1 tab PO BID PRN 04/11/14 01/12/19 [Fioricet 50-325-40 mg Tablet] INSULIN LISPRO (humaLOG) [humaLOG] See Protocol SQ AC-TID PRN 04/14/14 01/12/19 Budesonide-Formot 160-4.5 Mcg 2 puff INHALATION RT-BID PRN 10/25/15 01/12/19 [Symbicort 160-4.5 Mcg Inhaler] Lisinopril [Zestril] 40 mg PO HS 04/04/16 01/12/19 Insulin Glargine [Lantus] 60 unit SQ HS 05/02/16 01/12/19 Lisinopril-Hctz 20-12.5 mg 1 tab PO DAILY 06/05/17 01/12/19 [Zestoretic 20-12.5] Previous Rx's Medication Instructions Recorded Pantoprazole [Protonix] 40 mg PO AC-BID #60 tablet. 12/19/16 Celecoxib [CeleBREX] 100 mg PO BID PRN #60 cap 02/11/18 Cyclobenzaprine [Flexeril] 10 mg PO BID #60 tab 09/11/18 Morphine Sulfate ER [Ms Contin] 30 mg PO Q12H 30 Days #60 tab 09/11/18 Diazepam [Valium] 10 mg PO HS PRN 3 Days #3 tab 01/12/19 Allergies Allergy/AdvReac Type Severity Reaction Status Date / Time ibuprofen [From Motrin] AdvReac Abdominal Verified 01/12/19 13:48 Pain and vomiting Review of Systems ROS Statement: Those systems with pertinent positive or pertinent negative responses have been documented in the HPI. ROS Other: All systems not noted in ROS Statement are negative. Past Medical History Past Medical History: Asthma, COPD, Diabetes Mellitus, GERD/Reflux, Hyperlipidemia, Hypertension, Skin Disorder Additional Past Medical History / Comment(s): Chronic back pain, MIGRAINE HEADACHES. hx kidney stone History of Any Multi-Drug Resistant Organisms: MRSA Date of last positivie culture/infection: 2011 MDRO Source:: UNK Past Surgical History: Appendectomy, Back Surgery, Cholecystectomy, Joint Replacement, Orthopedic Surgery Additional Past Surgical History / Comment(s): Fusion and kane down back. Left Shoulder Replacement, Right knee replacement, plate in right wrist, left thumb joint repair, Right carpal tunnel repair, Right shoulder scope, Cervical fusion. LARYNGOSCOPY. November 2016 Cervical Plate Past Anesthesia/Blood Transfusion Reactions: No Reported Reaction Past Psychological History: Bipolar Smoking Status: Former smoker Past Alcohol Use History: None Reported Past Drug Use History: None Reported - Past Family History Brother(s) Family Medical History: Cancer, Myocardial Infarction ([place]) Father Family Medical History: Cancer Additional Family Medical History / Comment(s): throat, colon, liver, and brain cancer. Mother Family Medical History: Myocardial Infarction ([place]) Additional Family Medical History / Comment(s): at 54 of [place]. General Exam Limitations: no limitations General appearance: alert, in no apparent distress Head exam: Present: atraumatic, normocephalic Eye exam: Present: normal appearance, PERRL Neck exam: Present: normal inspection. Absent: tenderness, meningismus Respiratory exam: Present: normal lung sounds bilaterally. Absent: respiratory distress, wheezes Cardiovascular Exam: Present: regular rate, normal rhythm GI/Abdominal exam: Present: soft. Absent: distended, tenderness, guarding, rebound Extremities exam: Present: normal inspection, normal capillary refill, other (Distal pulses intact). Absent: pedal edema Back exam: Present: normal inspection, tenderness, paraspinal tenderness, vertebral tenderness (Lumbar) Neurological exam: Present: alert, oriented X3, CN II-XII intact. Absent: motor sensory deficit Psychiatric exam: Present: normal affect, normal mood Skin exam: Present: warm, dry, intact. Absent: cyanosis, diaphoretic Course Vital Signs 01/12/19 12:39 Temperature 98.2 F Pulse Rate 90 Respiratory 18 Rate Blood Pressure 186/100 O2 Sat by Pulse 99 Oximetry Medical Decision Making - Medical Decision Making 63-year-old female with acute on chronic back pain. CT performed, negative for any acute fracture subluxation. Chronic changes with spinal stenosis. Patient given pain control emergency department, does feel somewhat better. Will be prescribed Valium and Motrin. She is currently on morphine. She will follow-up with her pain management doctor. Disposition Clinical Impression: Lumbar spinal stenosis, Chronic, continuous use of opioids, Sacroiliac joint dysfunction of right side Disposition: HOME SELF-CARE Instructions (If sedation given, give patient instructions): Acute Low Back Pain (ED) Prescriptions: Diazepam [Valium] 10 mg PO HS PRN 3 Days #3 tab PRN Reason: Spasms Is patient prescribed a controlled substance at d/c from ED?: No Referrals: Scarlet Dior MD [Primary Care Provider] - 1-2 days
--- NOTE | 2019-01-12 14:40 | CT ---
EXAMINATION TYPE: CT lumbar spine wo con DATE OF EXAM: 01/12/2019 COMPARISON: Prior CT dated 05/14/2014 HISTORY: Low back pain after twisting injury. CT DLP: 1528.4 mGycm Automated exposure control for dose reduction was used. An unenhanced CT of the lumbar spine was performed. Bone and soft tissue window settings are submitt ed as well as coronal and sagittal reconstructions. FINDINGS: There is no significant interval change. Postop changes are noted status post fusion L5-S1 as on prio r exam, there is multilevel spondylosis. Loss of disc height at the intervertebral levels with associ ated vacuum phenomenon present at L4-5, L3-4, L2-3, L1-2, T11-12. Laminectomies are present at L5. L1-L2: Posterior extension endplate disc complex causes mild anterior mass effect on the thecal sac. Circumferential extension endplate disc complex encroaches somewhat on the foramen on the right. No s ignificant stenosis. L2-L3: Circumferential posterior disc bulge causes anterior mass effect on the thecal sac. No signifi cant spinal stenosis. Circumferential extension endplate disc complex results in some foraminal encro achment greater on the right L3-L4: There is some spinal stenosis due to posterior broad-based disc bulge combined with facet arth ropathy and hypertrophic changes of the ligamentum flavum, moderate spinal stenosis. Some left-sided foraminal encroachment due to circumferential extension of endplate disc complex L4-L5: There is a mild to moderate spinal stenosis. Posterior broad-based disc bulge causes anterior mass effect on the thecal sac. Facet arthropathy with hypertrophy of ligamentum flavum causes some po sterior lateral mass effect on the thecal sac. L5-S1: There is some artifact present. No evident spinal stenosis. Suspect some foraminal encroachmen t on the left as on prior exam IMPRESSION: No paraspinal masses are identified. Degenerative disc disease, multilevel facet arthropathy, foramin al encroachment similar to prior exam. There is spinal stenosis suspected greatest at L3-4, L4-5. No acute fracture or subluxation. There is a mild spinal curvature.
[2019-01-12 16:02] VITALS: BP 171/85; PULSE 92
[2019-01-12 16:06] LABS: Appearance,Urine Clear (Clear); Bilirubin,Urine Negative (Negative); Blood,Urine Negative (Negative); Color,Urine Yellow; Glucose,Urine (UA) Negative (Negative); Ketones,Urine Negative (Negative); Leukocyte Esterase,Urine Negative (Negative); Nitrite,Urine Negative (Negative); Protein,Urine Negative (Negative); Specific Gravity,Urine 1.026 (1.001-1.035); Urobilinogen,Urine <2.0 mg/dL (<2.0)
[2019-01-12 16:27] VITALS: TEMP 97.9
== END 2019-01-12 16:26 | disposition home or self-care (01) ==
LOC: EC 12:30
DX: M48.061 Spinal stenosis, lumbar region without neurogenic claudication (principal); F11.90 Opioid use, unspecified, uncomplicated; M53.3 Sacrococcygeal disorders, not elsewhere classified; J44.9 Chronic obstructive pulmonary disease, unspecified; E11.9 Type 2 diabetes mellitus without complications; I10 Essential (primary) hypertension; Z86.14 Personal history of Methicillin resistant Staphylococcus aureus infection; Z87.891 Personal history of nicotine dependence; Z79.4 Long term (current) use of insulin; Z79.899 Other long term (current) drug therapy; Z88.6 Allergy status to analgesic agent; Z96.651 Presence of right artificial knee joint; Z96.612 Presence of left artificial shoulder joint
CPT/HCPCS: 81003; 72131; 99284; 96372 ×3; J1100; J3360; J1170

== ENCOUNTER 2019-01-24 17:44 | Emergency (ER) | payer MEDICARE, OTHER ==
[2019-01-24 17:49] VITALS: RESP 18
[2019-01-24] MEDS ORDERED: MORPHINE SULFATE 4 MG/ML SYRINGE IM STA (18:09)
--- NOTE | 2019-01-24 18:29 | XR ---
EXAMINATION TYPE: XR lumbar spine 2 or 3V DATE OF EXAM: 01/24/2019 COMPARISON: 04/03/2018 HISTORY: Back pain TECHNIQUE: 3 views FINDINGS: There are rods and screws fusing posteriorly the lumbar spine at L5-S1. There is narrowing of L5-S1 disc space. Vertebra have normal alignment. There is spurring of the endplates throughout th e lumbar spine. There is no compression fracture. There is laminectomy of L5. IMPRESSION: Previous surgery. Spondylotic changes. No fracture. No change compared to old exam.
--- NOTE | 2019-01-24 18:37 | ED ---
General Adult HPI - General Chief complaint: Back Pain/Injury Stated complaint: Back pain Time Seen by Provider: 01/24/19 18:00 Source: patient, RN notes reviewed, old records reviewed Mode of arrival: wheelchair Limitations: no limitations - History of Present Illness Initial comments: 63-year-old female patient past history of COPD, type 2 diabetes, hypertension, chronic lumbar back pain presents ED with acute exacerbation of chronic lumbar back pain. Patient reports that her pain is located in her right paralumbar region. Patient states that this has been worsening for approximately 2 months. Patient does have point scheduled with orthopedic surgeon in approximately 2 weeks. Patient states that she is primarily present to ED today for symptom control. States that the pain is located in her right paralumbar region with radiating down her posterior right leg. Patient also reports mild muscle spasms in her right paralumbar region. Denies any new or concerning symptoms. Patient states that she did have a minor fall yesterday. Patient states that while she was walking she slipped and fell on her gluteal region. Patient denies any co mplaints after fall. Denies any worsening pain, denies a loss of bowel or bladder control, saddle anesthesia, paresthesias, lower extremity weakness. Patient denies any trauma to head or neck. Systemic: Pt denies fatigue, fever/chills, rash. Pt denies weakness, night sweats, weight loss. Neuro: Pt denies headache, visual disturbances, syncope or pre-syncope. HEENT: Pt denies ocular discharge or irritation, otalgia, rhinorrhea, pharyngitis or notable lymphadenopathy. Cardiopulmonary: Pt denies chest pain, SOB, heart palpitations, dyspnea on exertion. Abdominal/GI: Pt denies abdominal pain, n/v/d. : Pt denies dysuria, burning w/ urination, frequency/urgency. Denies new onset urinary or bowel incontinence. MSK: Pt denies loss of strength or function in extremities. Neuro: Pt denies new onset weakness, paresthesias. - Related Data Home Medications Medication Instructions Recorded Confirmed Butalb/Acetaminophen/Caffeine 1 tab PO BID PRN 04/11/14 01/12/19 [Fioricet 50-325-40 mg Tablet] INSULIN LISPRO (humaLOG) [humaLOG] See Protocol SQ AC-TID PRN 04/14/14 01/12/19 Budesonide-Formot 160-4.5 Mcg 2 puff INHALATION RT-BID PRN 10/25/15 01/12/19 [Symbicort 160-4.5 Mcg Inhaler] Lisinopril [Zestril] 40 mg PO HS 04/04/16 01/12/19 Insulin Glargine [Lantus] 60 unit SQ HS 05/02/16 01/12/19 Lisinopril-Hctz 20-12.5 mg 1 tab PO DAILY 06/05/17 01/12/19 [Zestoretic 20-12.5] Previous Rx's Medication Instructions Recorded Pantoprazole [Protonix] 40 mg PO AC-BID #60 tablet. 12/19/16 Celecoxib [CeleBREX] 100 mg PO BID PRN #60 cap 02/11/18 Cyclobenzaprine [Flexeril] 10 mg PO BID #60 tab 09/11/18 Morphine Sulfate ER [Ms Contin] 30 mg PO Q12H 30 Days #60 tab 09/11/18 Diazepam [Valium] 10 mg PO HS PRN 3 Days #3 tab 01/12/19 Cyclobenzaprine [Flexeril] 1 - 2 tab PO TID #20 tablet 01/24/19 predniSONE 50 mg PO DAILY #4 tab 01/24/19 Allergies Allergy/AdvReac Type Severity Reaction Status Date / Time ibuprofen [From Motrin] AdvReac Abdominal Verified 01/24/19 17:49 Pain and vomiting Review of Systems ROS Statement: Those systems with pertinent positive or pertinent negative responses have been documented in the HPI. ROS Other: All systems not noted in ROS Statement are negative. Past Medical History Past Medical History: Asthma, COPD, Diabetes Mellitus, GERD/Reflux, Hyperlipidemia, Hypertension, Skin Disorder Additional Past Medical History / Comment(s): Chronic back pain, MIGRAINE HEADACHES. hx kidney stone History of Any Multi-Drug Resistant Organisms: MRSA Date of last positivie culture/infection: 2011 MDRO Source:: UNK Past Surgical History: Appendectomy, Back Surgery, Cholecystectomy, Joint Replacement, Orthopedic Surgery Additional Past Surgical History / Comment(s): Fusion and kane down back. Left Shoulder Replacement, Right knee replacement, plate in right wrist, left thumb joint repair, Right carpal tunnel repair, Right shoulder scope, Cervical fusion. LARYNGOSCOPY. November 2016 Cervical Plate Past Anesthesia/Blood Transfusion Reactions: No Reported Reaction Past Psychological History: Bipolar Smoking Status: Former smoker Past Alcohol Use History: None Reported Past Drug Use History: None Reported - Past Family History Brother(s) Family Medical History: Cancer, Myocardial Infarction ([place]) Father Family Medical History: Cancer Additional Family Medical History / Comment(s): throat, colon, liver, and brain cancer. Mother Family Medical History: Myocardial Infarction ([place]) Additional Family Medical History / Comment(s): at 54 of [place]. General Exam - General Exam Comments Initial Comments: Constitutional: NAD, AOX3, Pt has pleasant affect. HEENT: NC/AT, trachea midline, neck supple, no lymphadenopathy. Posterior pharynx non erythematous, without exudates. External ears appear normal, without discharge. Mucous membranes moist. Eyes PERRLA, EOM intact. There is no scleral icterus. No pallor noted. Cardiopulmonary: RRR, no murmurs, rubs or gallops, no JVD noted. Lungs CTAB in anterior and posterior mayes. No peripheral edema. Abdominal exam: Abdomen soft and non-distended. Abdomen non-tender to palpation in all 4 quadrants. Bowel sounds active in LLQ. No hepatosplenomegaly. No ecchymosis Neuro: CN II-XII grossly intact. No nuchal rigidity. No raccon eyes, no patterson sign, no hemotympanum. No cervical spinal tenderness. MSK: Right straight leg raise positive, straight leg raise negative. No tenderness to palpation midline cervical thoracic lumbar region. It paralumbar region mildly tender to palpation. Distal pulses intact and equal.No posterior calf tenderness bilaterally, homans sign negative bilaterally. Posterior tibialis and radial pulse +2 bilaterally. Sensation intact in upper and lower extremities. Full active ROM in upper and lower extremities, 5/5 stregnth. Limitations: no limitations Course Vital Signs 01/24/19 01/24/19 17:47 19:04 Temperature 98.8 F 97.8 F Pulse Rate 94 68 Respiratory 18 18 Rate Blood Pressure 171/82 162/84 O2 Sat by Pulse 97 99 Oximetry Medical Decision Making - Medical Decision Making 63-year-old female patient past history of COPD, type 2 diabetes, hypertension, chronic lumbar back pain presents ED with acute exacerbation of chronic lumbar back pain. Patient reports that her pain is located in her right paralumbar region. Patient states that this has been worsening for approximately 2 months. Patient does have point scheduled with orthopedic surgeon in approximately 2 weeks. Patient states that she is primarily present to ED today for symptom control. States that the pain is located in her right paralumbar region with radiating down her posterior right leg. Patient also reports mild muscle spasms in her right paralumbar region. Denies any new or concerning symptoms. Patient states that she did have a minor fall yesterday. Patient states that while she was walking she slipped and fell on her gluteal region. Patient denies any complaints after fall. Denies any worsening pain, denies a loss of bowel or bladder control, saddle anesthesia, paresthesias, lower extremity weakness. Patient denies any trauma to head or neck.. Pt VSS afebrle. PHysical exam displayed: Right straight leg raise positive, straight leg raise negative. No tenderness to palpation midline cervical thoracic lumbar region. It paralumbar region mildly tender to palpation. Distal pulses intact and equal.No posterior calf tenderness bilaterally, homans sign negative bilaterally. Posterior tibialis and radial pulse +2 bilaterally. Sensation intact in upper and lower extremities. Full active ROM in upper and lower extremities, 5/5 stregnth. Plain film lumbar spine displayed previous surgery, spinally changes, no fracture, no change compared to old exam. Patient feeling improved after pain medication. Patient was discharged with 4 days of steroids and muscle relaxers. Patient to follow up with primary care provider as well as orthopedic consult in 1-2 days. Patient return to ER if condition worsens. Case discussed with Dr. Torre. Disposition Clinical Impression: Lumbar back pain Disposition: HOME SELF-CARE Condition: Stable Instructions (If sedation given, give patient instructions): Acute Low Back Pain (ED) Additional Instructions: Patient to adhere to previously discussed treatment plan and will take medication(s) as directed. Patient to follow up with PCP in 1-2 days. Patient to return to ED if symptoms do not improve. Take prednisone as directed. Use muscle relaxer as needed for spasms. Follow up with orthopedic consult and primary care provider in 1-2 days. Return to ER condition worsens. Prescriptions: Cyclobenzaprine [Flexeril] 1 - 2 tab PO TID #20 tablet predniSONE 50 mg PO DAILY #4 tab Is patient prescribed a controlled substance at d/c from ED?: No Referrals: Scarlet Dior MD [Primary Care Provider] - 1-2 days Quinton Prieto DO [Doctor of Osteopathic Medicine] - 1-2 days
[2019-01-24 19:05] VITALS: BP 162/84; PULSE 68; TEMP 97.8
== END 2019-01-24 19:06 | disposition home or self-care (01) ==
LOC: EC 17:44
DX: M54.5 Low back pain (principal); J44.9 Chronic obstructive pulmonary disease, unspecified; E11.9 Type 2 diabetes mellitus without complications; I10 Essential (primary) hypertension; Z86.14 Personal history of Methicillin resistant Staphylococcus aureus infection; Z98.890 Other specified postprocedural states; Z96.612 Presence of left artificial shoulder joint; Z96.651 Presence of right artificial knee joint; Z87.891 Personal history of nicotine dependence; Z79.4 Long term (current) use of insulin; Z79.899 Other long term (current) drug therapy; Z88.6 Allergy status to analgesic agent; W19.XXXA Unspecified fall, initial encounter; Y93.01 Activity, walking, marching and hiking
CPT/HCPCS: 99284; 96372; 72100; J2270

== ENCOUNTER 2019-02-15 03:03 | Emergency (ER) | payer MEDICARE, OTHER ==
[2019-02-15] MEDS ORDERED: HYDROcodone/APAP 5-325MG 1 EACH TAB PO STA (03:46)
[2019-02-15] MEDS ORDERED: ONDANSETRON ODT 4 MG TAB PO STA (03:46)
[2019-02-15] MEDS ORDERED: HYDROmorphone 1 MG/ML 1 ML SYRINGE IM STA ×2 (03:51→06:49)
--- NOTE | 2019-02-15 05:10 | CT ---
INDICATION: Abdominal pain TECHNIQUE: CT acquisition is performed through the abdomen and pelvis. Coronal and sagittal reformatted images are provided. No IV contrast is administered. DOSE INFORMATION: DLP 1415.9 mGy-cm. This CT exam was performed using one or more of the following dose reduction techniques: automated exposure control, adjustment of the mA and/or kV according to patient size, and/or use of iterative reconstruction technique. COMPARISON: CT abdomen and pelvis 06/17/18. FINDINGS: The lung bases are clear. The liver is enlarged with low parenchymal density, compatible with steatosis. The gallbladder surgically absent. The spleen, pancreas, and adrenal glands are unremarkable. Both kidneys are similar in size and contour. There is no hydronephrosis or perinephric stranding. There are no radiopaque urinary stones. The urinary bladder and uterus are unremarkable. Mild aortoiliac atherosclerosis is not associated with aneurysm. There is no adenopathy. The appendix is not visualized. There are no obstructive or inflammatory changes of the bowel. There is scattered colonic diverticula without evidence of acute diverticulitis. There has been posterior decompression, posterior hardware fixation, and interbody fusion at L5-S1. There are no acute osseous findings. IMPRESSION: No evidence of acute or inflammatory process.
[2019-02-15 06:26] LABS: Appearance,Urine Clear (Clear); Bilirubin,Urine Negative (Negative); Blood,Urine Negative (Negative); Color,Urine Yellow; Glucose,Urine (UA) Negative (Negative); Ketones,Urine Negative (Negative); Leukocyte Esterase,Urine Negative (Negative); Nitrite,Urine Negative (Negative); Protein,Urine Negative (Negative); Specific Gravity,Urine 1.018 (1.001-1.035); Urobilinogen,Urine <2.0 mg/dL (<2.0)
--- NOTE | 2019-02-15 06:58 | ED ---
Back Pain HPI - General Chief Complaint: Back Pain/Injury Stated Complaint: Back Pain Time Seen by Provider: 02/15/19 03:45 Source: patient Limitations: no limitations - History of Present Illness Complaint: back pain -: days(s) Similar Symptoms Previously: Yes Place: home Radiation: none Severity: severe Quality: aching Consistency: constant Improves With: none Worsens With: movement Associated Symptoms: denies other symptoms - Related Data Home Medications Medication Instructions Recorded Confirmed Butalb/Acetaminophen/Caffeine 1 tab PO BID PRN 04/11/14 01/12/19 [Fioricet 50-325-40 mg Tablet] INSULIN LISPRO (humaLOG) [humaLOG] See Protocol SQ AC-TID PRN 04/14/14 01/12/19 Budesonide-Formot 160-4.5 Mcg 2 puff INHALATION RT-BID PRN 10/25/15 01/12/19 [Symbicort 160-4.5 Mcg Inhaler] Lisinopril [Zestril] 40 mg PO HS 04/04/16 01/12/19 Insulin Glargine [Lantus] 60 unit SQ HS 05/02/16 01/12/19 Lisinopril-Hctz 20-12.5 mg 1 tab PO DAILY 06/05/17 01/12/19 [Zestoretic 20-12.5] Previous Rx's Medication Instructions Recorded Pantoprazole [Protonix] 40 mg PO AC-BID #60 tablet. 12/19/16 Celecoxib [CeleBREX] 100 mg PO BID PRN #60 cap 02/11/18 Cyclobenzaprine [Flexeril] 10 mg PO BID #60 tab 09/11/18 Morphine Sulfate ER [Ms Contin] 30 mg PO Q12H 30 Days #60 tab 09/11/18 Diazepam [Valium] 10 mg PO HS PRN 3 Days #3 tab 01/12/19 Cyclobenzaprine [Flexeril] 1 - 2 tab PO TID #20 tablet 01/24/19 predniSONE 50 mg PO DAILY #4 tab 01/24/19 Allergies Allergy/AdvReac Type Severity Reaction Status Date / Time ibuprofen [From Motrin] AdvReac Abdominal Verified 02/15/19 03:09 Pain and vomiting Review of Systems ROS Statement: Those systems with pertinent positive or pertinent negative responses have been documented in the HPI. ROS Other: All systems not noted in ROS Statement are negative. Constitutional: Denies: fever, chills, weakness Respiratory: Denies: cough, dyspnea Cardiovascular: Denies: chest pain, palpitations, edema Gastrointestinal: Denies: abdominal pain, nausea, vomiting Genitourinary: Denies: dysuria, hematuria Musculoskeletal: Reports: as per HPI, back pain Skin: Denies: rash Neurological: Denies: headache, weakness, numbness Past Medical History Past Medical History: Asthma, COPD, Diabetes Mellitus, GERD/Reflux, Hyperlipidemia, Hypertension, Skin Disorder Additional Past Medical History / Comment(s): Chronic back pain, MIGRAINE HEADACHES. hx kidney stone, History of Any Multi-Drug Resistant Organisms: MRSA Date of last positivie culture/infection: 2011, MDRO Source:: UNK Past Surgical History: Appendectomy, Back Surgery, Cholecystectomy, Joint Replacement, Orthopedic Surgery Additional Past Surgical History / Comment(s): Fusion and kane down back. Left Shoulder Replacement, Right knee replacement, plate in right wrist, left thumb joint repair, Right carpal tunnel repair, Right shoulder scope, Cervical fusion. LARYNGOSCOPY. November 2016 Cervical Plate Past Anesthesia/Blood Transfusion Reactions: No Reported Reaction Past Psychological History: Bipolar Smoking Status: Former smoker Past Alcohol Use History: None Reported Past Drug Use History: None Reported - Past Family History Brother(s) Family Medical History: Cancer, Myocardial Infarction ([place]) Father Family Medical History: Cancer Additional Family Medical History / Comment(s): throat, colon, liver, and brain cancer. Mother Family Medical History: Myocardial Infarction ([place]) Additional Family Medical History / Comment(s): at 54 [place]. General Exam Limitations: no limitations General appearance: alert, in no apparent distress Head exam: Present: atraumatic, normocephalic Eye exam: Present: normal appearance. Absent: scleral icterus, conjunctival injection ENT exam: Present: normal oropharynx Neck exam: Present: normal inspection, full ROM Respiratory exam: Present: normal lung sounds bilaterally. Absent: respiratory distress, wheezes, rales, rhonchi, stridor Cardiovascular Exam: Present: regular rate, normal rhythm, normal heart sounds. Absent: systolic murmur, diastolic murmur, rubs, gallop GI/Abdominal exam: Present: soft. Absent: tenderness, guarding, rebound, rigid, mass, pulsatile mass, hernia Extremities exam: Present: normal inspection, normal capillary refill. Absent: pedal edema, calf tenderness Back exam: Present: normal inspection, paraspinal tenderness. Absent: CVA tenderness (R), CVA tenderness (L) Neurological exam: Present: alert, reflexes normal. Absent: motor sensory deficit Skin exam: Present: warm, dry, intact, normal color. Absent: rash Course Vital Signs 02/15/19 02/15/19 02/15/19 03:07 03:31 05:34 Temperature 98.7 F 98.3 F Pulse Rate 101 H 110 H Respiratory 19 22 Rate Blood Pressure 218/106 240/120 157/97 O2 Sat by Pulse 99 100 Oximetry 02/15/19 07:11 Temperature 98.1 F Pulse Rate 101 H Respiratory 18 Rate Blood Pressure 176/101 O2 Sat by Pulse 93 L Oximetry Medical Decision Making - Medical Decision Making Patient's 63-year-old woman with right lower back pain. She has had good relief with medication. We discussed appropriate further care and follow-up. - Lab Data Lab Results 02/15/19 Range/Units 06:00 Urine Color Yellow Urine Appearance Clear (Clear) Urine pH 5.0 (5.0-8.0) Ur Specific [place] 1.018 (1.001-1.035) Urine Protein Negative (Negative) Urine Glucose (UA) Negative (Negative) Urine Ketones Negative (Negative) Urine Blood Negative (Negative) Urine Nitrite Negative (Negative) Urine Bilirubin Negative (Negative) Urine Urobilinogen <2.0 (<2.0) mg/dL Ur Leukocyte Esterase Negative (Negative) Disposition Clinical Impression: Lumbar back pain Disposition: HOME SELF-CARE Condition: Fair Instructions (If sedation given, give patient instructions): Acute Low Back Pain (ED) Is patient prescribed a controlled substance at d/c from ED?: No Referrals: Scarlet Dior MD [Primary Care Provider] - 1-2 days
[2019-02-15 07:12] VITALS: BP 176/101; PULSE 101; RESP 18; TEMP 98.1
== END 2019-02-15 07:11 | disposition home or self-care (01) ==
LOC: EC 03:03
DX: M54.5 Low back pain (principal); J44.9 Chronic obstructive pulmonary disease, unspecified; E11.9 Type 2 diabetes mellitus without complications; I10 Essential (primary) hypertension; Z87.891 Personal history of nicotine dependence; Z79.4 Long term (current) use of insulin; Z79.899 Other long term (current) drug therapy; Z88.6 Allergy status to analgesic agent; Z86.14 Personal history of Methicillin resistant Staphylococcus aureus infection; Z96.651 Presence of right artificial knee joint; Z96.612 Presence of left artificial shoulder joint
CPT/HCPCS: 81003; 74176; 99284; 96372 ×2; J1170

== ENCOUNTER → 2019-02-25 | Outpatient (CLI) | payer MEDICARE, OTHER ==
[2019-02-25 12:59] VITALS: BP 154/98; PULSE 100; RESP 20
--- NOTE | 2019-02-25 15:07 | P.PAINPG ---
Subjective Progress Note Date: 02/25/19 This is follow-up visit for this 63 years old Female with a history of severe and chronic low back pain , is diagnosed with lumbar radiculopathy, lumbar facet arthropathy , previously we have done lumbar epidural steroid injection and has obtained good pain relief in the past. Today however, she has a new complaint of right low back pain radiating to the right buttocks which began about 5 weeks ago, for which she was evaluated in an emergency room. She underwent a lumbar spine CT at that time which did not show an acute process. Pain is rated as 10 out of 10, she is unable to function with this pain. The patient currently on MS Contin 30 mg twice a day ,and Flexeril 10 mg twice a day Patient denies any side effect of the medication , patient denies any excessive drowsiness or sleepiness, patient denies any suicidal ideation, Patient reported that the current medication is helping to control the pain and improve the activity of daily livings, except it is not controlling her current new pain complaint. Patient denies any motor or sensory deficit, denies any change in the bowel movement or urination, patient denies any fever or night sweats. Physical Examinations : GENERAL: Well appearing, in no acute distress, obese PSYCH: Mood and affect is appropriate. Awake, alert, and oriented SKIN: Skin color, texture, turgor normal, no rashes or lesions HEENT: Normocephalic, atraumatic. EOM intact CV: No pedal edema RESP: Respirations are unlabored, no audible wheezing GI: Abdomen obese MUSCULOSKELETAL: Bilateral upper and lower extremity strength is normal and symmetric. No atrophy or tone abnormalities are noted. Lumbar spine: Straight leg raising in the sitting position is negative for radicular pain. No pain to palpation over the lumbar spine and paraspinous muscles. Negative for pain with facet loading and back extension/rotation. Buttocks: Pain to palpation over the right PSIS, Tiny test positive on right, sacral thrust positive for pain reproduction on right side. Extremities: Peripheral joint ROM is full and pain free without obvious instability or laxity in all four extremities. No edema or skin discolorations noted. Gait: Gait is slow, antalgic NEUR: Bilateral patellar reflexes absent. Loss of sensation is noted to light touch in entire right lower extremity. No clonus Imaging: lumbar spine CT showed degenerative disc disease, multilevel facet arthropathy, foraminal's encroachment similar to prior exams. There is spinal stenosis greatest at L3-4, L4-5. No acute fracture or subluxation. Assessment and plan= Lumbar Radiculopathy , lumbar spondylosis with lumbar facet arthropathy and right sacroiliitis. chronic and current use of high-risk medication (opioids) Patient denies any side effects of the current pain medication and the current treatment/medication helping the patient to do activity of daily living , Diagnoses, prognosis, treatment options, including but not limited to physical therapy, medication management, interventional therapies, and surgery, were discussed with the patient All the questions answered Patient was counseled on importance of diet, exercise and weight loss Allsop The narcotic consent was signed and patient agreed and understood the side effects and complications of opioid treatment. Patient signed the narcotic agreement, and was orally counseled, not to overuse, not to abuse, not to Divert , not tp sell pain medication, and to take it as prescribed only, Patient was counseled not to drive or operate heavy equipment while using narcotic medication, and advised not to use alcohol or any Illicit drugs while using the narcotis. understanding that lack of compliance with any of the above instructions, will likely to cause discharge from, the pain service, not to renew her narcotic prescriptions Medication managements= patient will be given prescription refills for MS Contin 30 mg every 12 hours dispense 60 with 2 refill and Flexeril 10 mg twice a day dispense 60 with 2 refill Interventions= will schedule right SI joint injection MAPS reviewed and it was appropriate. , Objective - Vital Signs Vital signs: Vital Signs Temp Pulse 100 02/25/19 12:54 Resp 20 02/25/19 12:54 BP 154/98 02/25/19 12:54 Pulse Ox 96 02/25/19 12:54 Intake & Output 02/24/19 02/25/19 02/25/19 18:59 06:59 18:59 Weight 109.769 kg PQRS Measure Charge Sheet Measure #130: Documentation of Current Meds in Medical Chart: Patient's me dications documented in chart Measure #226: Tobacco Use: Screen & Cessation Intervention: Pt not a tobacco user Measure #111: Pneumonia Vaccination: Pneumococcal vaccine administered or previously received Measure #47: Advance Care Plan: Advance care planning discussed & documented, pt chose/unable to give Measure #408: Opioid Therapy Follow-up Evaluation: Patient had f/u eval minimum every 3 months during opioid therapy Measure #317: Preventitive Care & Scrn High Bld Press & F/U: Pre-hypertensive or hypertensive BP documented, pt will f/u with PCP Measure #128: Body Mass Index (BMI) Screening & Follow-up: BMI documented ABOVE normal parameters - f/u documented Measure #131: Pain Assessment & Follow-up: Pain positive & plan documented, Follow-up scheduled Measure #431: Unhealthy Alcohol Use Preventative Care & Scrn: Patient not identified as an unhealthy alcohol user PQRS Narrative: Smoking Status Former smoker Narcotic Agreement Date Signed 02/11/18 Blood Pressure 154/98 Pain Intensity [Lower Back] 10 Scale Used Numeric (1 - 10) Hx Alcohol Use (MH) No Home Medications: Ambulatory Orders Butalb/Acetaminophen/Caffeine [Fioricet 50-325-40 mg Tablet] 1 tab PO BID PRN 04/11/14 INSULIN LISPRO (humaLOG) [humaLOG] See Protocol SQ AC-TID PRN 04/14/14 Budesonide-Formot 160-4.5 Mcg [Symbicort 160-4.5 Mcg Inhaler] 2 puff INHALATION RT-BID PRN 10/25/15 Lisinopril [Zestril] 40 mg PO HS 04/04/16 Insulin Glargine [Lantus] 60 unit SQ HS 05/02/16 Pantoprazole [Protonix] 40 mg PO AC-BID #60 tablet. 12/19/16 Lisinopril-Hctz 20-12.5 mg [Zestoretic 20-12.5] 1 tab PO DAILY 06/05/17 Celecoxib [CeleBREX] 100 mg PO BID PRN #60 cap 02/11/18 Diazepam [Valium] 10 mg PO HS PRN 3 Days #3 tab 01/12/19 Cyclobenzaprine [Flexeril] 1 - 2 tab PO TID #20 tablet 01/24/19 Cyclobenzaprine [Flexeril] 10 mg PO BID #60 tab 02/25/19 Morphine Sulfate ER [Ms Contin] 30 mg PO Q12H 30 Days #60 tab 02/25/19 Morphine Sulfate ER [Ms Contin] 30 mg PO Q12H 30 Days #60 tab 02/25/19 Morphine Sulfate ER [Ms Contin] 30 mg PO Q12HR 30 Days #60 tab 02/25/19 Controlled Substance Measures - Controlled Substance Measures Is patient prescribed a controlled substance at discharge?: Yes When asked, does pt state using other controlled substances?: No If prescribed controlled substance>3 days was MAPS reviewed?: Yes If Rx opioid, was Start Talking consent form obtained?: Yes If opioid is for acute pain is fill amount 7 days or less?: No Was information provided regarding opioid addiction?: Yes
== END | disposition home or self-care (01) ==
LOC: PNWHC3 12:27
PROVIDERS: ATTEND Anesthesiology
DX: M47.26 Other spondylosis with radiculopathy, lumbar region (principal); M46.96 Unspecified inflammatory spondylopathy, lumbar region; M46.1 Sacroiliitis, not elsewhere classified; Z87.891 Personal history of nicotine dependence; Z79.891 Long term (current) use of opiate analgesic; Z79.899 Other long term (current) drug therapy; Z79.4 Long term (current) use of insulin
CPT/HCPCS: 99211

== ENCOUNTER → 2019-02-25 | Outpatient (CLI) | payer MEDICARE, OTHER ==
[2019-02-25 19:08] LABS: African American GFR (CKD) 62.3 (60.0-200.0); Albumin/Globulin Ratio 1.9 (1.60-3.17); Anion Gap 7.3 mmol/L (4.00-12.00); BUN/Creat Ratio 22.73 Ratio (12.00-20.00); Calcium 9.2 mg/dL (8.7-10.3); Carbon Dioxide 26.7 mmol/L (21.6-31.8); Globulin 2.1 g/dL (1.6-3.3); LDL Cholesterol,Calculated 103.8 mg/dL (0.0-131.0); Potassium 4.9 mmol/L (3.5-5.5); Total Bilirubin 0.2 mg/dL (0.2-1.2); Total Protein 6.1 g/dL (6.2-8.2); VLDL Calculation 46.2 mg/dL (5.00-40.00)
[2019-02-25 22:17] LABS: Hemoglobin A1C 7.3 % (4.0-6.0)
== END | disposition home or self-care (01) ==
LOC: LABWHC1 11:59
PROVIDERS: ATTEND Internal Medicine Endocrinology, Diabetes & Metabolism
DX: E11.65 Type 2 diabetes mellitus with hyperglycemia (principal)
CPT/HCPCS: 36415; 80053; 80061; 82043; 82570; 83036; 84443

== ENCOUNTER → 2019-05-14 | Outpatient (CLI) | payer MEDICARE, OTHER ==
[2019-05-14 13:59] VITALS: RESP 16
[2019-05-14 15:11] VITALS: BP 166/99; PULSE 84
--- NOTE | 2019-05-14 15:36 | P.PAINPG ---
Subjective Progress Note Date: 05/14/19 This is a 63-year-old female with severe low back pain, status post spinal fusion surgery. She has had lumbar epidurals with good relief in the past. Since her last visit she did have a SI joint fusion done at outside institution, and is having some postoperative pain however she is now 23 days after surgery. She did receive some opiates from the surgical team. She does state that the surgery may have helped her SI joint pain. Today she is asking for us to have prescribed the morphine 30 minutes 3 times a day in addition to the [place] for breakthrough pain. However this request was denied. He denies any side effects from the medications, she has urine drug screen from earlier this year which was congruent. Objective - Vital Signs Vital signs: Vital Signs Temp Pulse 84 05/14/19 15:09 Resp 16 05/14/19 15:09 BP 166/99 05/14/19 15:09 Pulse Ox 96 05/14/19 15:09 Intake & Output 05/13/19 05/14/19 05/14/19 18:59 06:59 18:59 Weight 99.79 kg - Exam Vital Signs: Reviewed in EMR GENERAL: Well appearing, obese in no acute distress, PSYCH: Mood and affect is appropriate. Awake, alert, and oriented SKIN: Skin color, texture, turgor normal, no rashes or lesions HEENT: Normocephalic, atraumatic. EOM intact CV: No pedal edema RESP: Respirations are unlabored, no audible wheezing GI: Abdomen non-distended MUSCULOSKELETAL: Bilateral upper and lower extremity strength is normal and symmetric. No atrophy or tone abnormalities are noted. Lumbar spine: She does have tenderness to palpation in the lumbar paraspinals, and limited motion of her low back Buttocks: Positive pain to palpation over PSIS Extremities: Peripheral joint ROM is full and pain free without obvious instability or laxity in all four extremities. No edema or skin discolorations noted. Gait: Gait is anantalgic NEUR: No loss of sensation is noted. Cranial nerves are grossly intact. Assessment and Plan Assessment: Assessment: 1. Lumbar spondylosis 2. SI joint dysfunction status post surgery 3. Chronic opiate use 4. Morbid obesity Plan: 1. Explanation: Opioid and psychological risk scores were reviewed. Diagnoses, prognoses, and multiple treatment options including but not limited to physical therapy, interventional therapies, adjuvant medical therapies, narcotic medication therapies, and surgery were discussed with the patient and all questions were answered to the patient's satisfaction. 2. Opioid agreement: In place 3. Counseling: The patient was counseled extensively on BODY MASS INDEX, EXERCISE. Specifically, the patient was instructed regarding the importance of weight control, and exercise in the context of both chronic pain and overall health. 4. Procedures: At this time she recently had surgery earlier this month 5. Consultations: None 6. Investigations: Reviewed 7. Medications: She was looking for a increase in her opiate dosing, however I do not agree with this. She was told that if she obtains prescriptions from other clinics she will be discharged from the clinic. I did refill her morphine 30 twice a day that we have previously written for, and her Flexeril. Given that she has had surgery, would consider dose reductions in the future 8. Disposition: 8 weeks for medication check , PQRS Measure Charge Sheet Measure #226: Tobacco Use: Screen & Cessation Intervention: Pt not a tobacco user Measure #111: Pneumonia Vaccination: Pneumococcal vaccine administered or previously received Measure #47: Advance Care Plan: Advance care planning discussed & documented, pt chose/unable to give Measure #131: Pain Assessment & Follow-up: Pain positive & plan documented, Follow-up scheduled Measure #431: Unhealthy Alcohol Use Preventative Care & Scrn: Patient not identified as an unhealthy alcohol user PQRS Narrative: Smoking Status Former smoker Narcotic Agreement Date Signed 02/11/18 Blood Pressure 166/99 Pain Intensity [Lower Back] 7 Scale Used Numeric (1 - 10) Hx Alcohol Use (MH) No Home Medications: Ambulatory Orders Butalb/Acetaminophen/Caffeine [Fioricet 50-325-40 mg Tablet] 1 tab PO BID PRN 04/11/14 INSULIN LISPRO (humaLOG) [humaLOG] See Protocol SQ AC-TID PRN 04/14/14 Budesonide-Formot 160-4.5 Mcg [Symbicort 160-4.5 Mcg Inhaler] 2 puff INHALATION RT-BID PRN 10/25/15 Lisinopril [Zestril] 40 mg PO HS 04/04/16 Insulin Glargine [Lantus] 80 unit SQ HS 05/02/16 Pantoprazole [Protonix] 40 mg PO AC-BID #60 tablet. 12/19/16 Cyclobenzaprine [Flexeril] 10 mg PO BID #60 tab 02/25/19 Morphine Sulfate ER [Ms Contin] 30 mg PO Q12HR 30 Days #60 tab 02/25/19 HYDROcodone/APAP 5-325MG [[place] 5-325] 1 tab PO Q6HR PRN 05/13/19 Controlled Substance Measures - Controlled Substance Measures Is patient prescribed a controlled substance at discharge?: Yes When asked, does pt state using other controlled substances?: No If prescribed controlled substance>3 days was MAPS reviewed?: Yes If Rx opioid, was Start Talking consent form obtained?: Yes
== END | disposition home or self-care (01) ==
LOC: PNWHC3 12:45
PROVIDERS: ATTEND Student in an Organized Health Care Education/Training Program
DX: M47.816 Spondylosis without myelopathy or radiculopathy, lumbar region (principal); M53.3 Sacrococcygeal disorders, not elsewhere classified; F11.90 Opioid use, unspecified, uncomplicated; E66.01 Morbid (severe) obesity due to excess calories; G89.18 Other acute postprocedural pain; Z68.41 Body mass index [BMI] 40.0-44.9, adult; Z87.891 Personal history of nicotine dependence; Z98.1 Arthrodesis status; Z79.4 Long term (current) use of insulin; Z79.899 Other long term (current) drug therapy
CPT/HCPCS: 99211

== ENCOUNTER → 2019-07-09 | Outpatient (CLI) | payer MEDICARE, OTHER ==
[2019-07-09 12:42] VITALS: BP 189/78; PULSE 86; RESP 18
--- NOTE | 2019-07-09 13:01 | P.PAINPG ---
Subjective Progress Note Date: 07/09/19 This is Follow up visit for this 63-year-old female with severe low back pain, status post Right SI joint fusion done at outside [facility] , patient also she had lumbar fusion surgery done a few years ago she continued to have severe low back pain, and she continued to use MS Contin 30 mg twice a day and Flexeril 10 mg twice a day she denies any side effects of the medication, she denies any excessive drowsiness or sleepiness and she put the current medication is helping her to improve her pain and improve quality of life, she denies any swingset the radiation she denies any motor or sensory deficits she denies any fever or night sweats, intensity of the pain 6/10 increased to 10 over 10 with any activity Objective - Vital Signs Vital signs: Vital Signs Temp Pulse 86 07/09/19 12:20 Resp 18 07/09/19 12:20 BP 189/78 07/09/19 12:20 Pulse Ox 98 07/09/19 12:20 Intake & Output 07/08/19 07/09/19 07/09/19 18:59 06:59 18:59 Weight 114.305 kg - Exam Physical Examinations : -Constitutiona : Cooperative , not in acute distress . -HEENT : nech : supple , no Lymphadenopathy , normal thyroid size . : eyes : no ptosis , no icterus, no photophobia . - neurologic : Cranial nerve II to XII intact , no focal neurological deffecit . -psychatric : alert , oriented X 3 , appropriate affect , intact judgment and insight . -Lymphatic : no Lymphadenopathy . - musculoskeltal : Lumber spine moter stegnth lower extremities ,thigh and legs 5/5 Right side , 5/5 Left side deep tendon reflexes : normal Knee Jerk , normal ankle Jerk lumber facet Loading Test =positive Right , Range of motion of the lumbar spine Flexion 30 degrees, extension 10 degrees strait leg raising test = positive at 30 degree on the right side Fabere test= positive Right , and positive LT . Sever tenderness over the Sacroiliac joint on the Right , and negative on Left sides Gaenslen test= positive right ,and negative left . Seated flexion test= positive right ,and negative Left . 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 and lumbar , sacroiliitis status post right side sacroiliac joint effusion chronic and current use of high-risk medication (opioids) Patient denies any side effects of the current pain medication and the current treatment/medication helping the patient to do activity of daily living , Diagnoses, prognosis, treatment options, including but not limited to physical therapy, medication management, interventional therapies, and surgery, were discussed with the patient All the questions answered The narcotic consent was signed and patient agreed and understood the side effects and complications of opioid treatment. Patient signed the narcotic agreement, and was orally counseled, not to overuse, not to abuse, not to Divert , not tp sell pain medication, and to take it as prescribed only, Patient was counseled not to drive or operate heavy equipment while using narcotic medication, and advised not to use alcohol or any Illicit drugs while using the narcotis. understanding that lack of compliance with any of the above instructions, will likely to cause discharge from, the pain service, not to renew his narcotic prescriptions MAPS Reviwed and it was apropriate . Medication managements= patient will be given prescription refills for MS Contin 30 mg twice a day dispense 60 with 1 refill and Flexeril 10 mg twice a day dispense 60 with 1 refill She will follow up in the pain clinic in 2 months note= blood pressure is significantly elevated I explained to the patient that she has to follow-up with her primary care JACOB to manage her blood pressure and she reported that she had Her primary care yesterday and she will call and she will follow up with the primary care JACOB , Time with Patient: Less than 30 PQRS Measure Charge Sheet Measure #130: Documentation of Current Meds in Medical Chart: Patient's medications documented in chart Measure #226: Tobacco Use: Screen & Cessation Intervention: Pt not a tobacco user Measure #111: Pneumonia Vaccination: Pneumococcal vaccine administered or previously received Measure #47: Advance Care Plan: Advance care planning discussed & documented, pt chose/unable to give Measure #412: Opioid Treatment Agreement: Documented signed opioid trtmnt agr eemnt min once during opioid trtmnt Measure #408: Opioid Therapy Follow-up Evaluation: Patient had f/u eval minimum every 3 months during opioid therapy Measure #317: Preventitive Care & Scrn High Bld Press & F/U: Pre-hypertensive or hypertensive BP documented, pt will f/u with PCP Measure #128: Body Mass Index (BMI) Screening & Follow-up: BMI documented ABOVE normal parameters - f/u documented Measure #131: Pain Assessment & Follow-up: Pain positive & plan documented, Follow-up scheduled Measure #431: Unhealthy Alcohol Use Preventative Care & Scrn: Patient not identified as an unhealthy alcohol user PQRS Narrative: Smoking Status Former smoker Narcotic Agreement Date Signed 05/14/19 Blood Pressure 189/78 Pain Intensity [Right Lower 10 Back] Scale Used Numeric (1 - 10) Hx Alcohol Use (MH) No Home Medications: Ambulatory Orders Butalb/Acetaminophen/Caffeine [Fioricet 50-325-40 mg Tablet] 1 tab PO BID PRN 04/11/14 INSULIN LISPRO (humaLOG) [humaLOG] See Protocol SQ AC-TID PRN 04/14/14 Budesonide-Formot 160-4.5 Mcg [Symbicort 160-4.5 Mcg Inhaler] 2 puff INHALATION RT-BID PRN 10/25/15 Lisinopril [Zestril] 40 mg PO HS 04/04/16 Insulin Glargine [Lantus] 80 unit SQ HS 05/02/16 Pantoprazole [Protonix] 40 mg PO AC-BID #60 tablet. 12/19/16 Cyclobenzaprine [Flexeril] 10 mg PO BID #60 tab 07/09/19 Morphine Sulfate ER [Ms Contin] 30 mg PO Q12H 30 Days #60 tab 07/09/19 Morphine Sulfate ER [Ms Contin] 30 mg PO Q12HR 30 Days #60 tab 07/09/19 Controlled Substance Measures - Controlled Substance Measures Is patient prescribed a controlled substance at discharge?: Yes When asked, does pt state using other controlled substances?: No If prescribed controlled substance>3 days was MAPS reviewed?: Yes If Rx opioid, was Start Talking consent form obtained?: Yes If opioid is for acute pain is fill amount 7 days or less?: No Was information provided regarding opioid addiction?: Yes
== END | disposition home or self-care (01) ==
LOC: PNWHC3 11:41
PROVIDERS: ATTEND Specialist
DX: G89.29 Other chronic pain (principal); M96.1 Postlaminectomy syndrome, not elsewhere classified; M46.1 Sacroiliitis, not elsewhere classified; Z98.890 Other specified postprocedural states; Z87.891 Personal history of nicotine dependence; Z79.4 Long term (current) use of insulin; Z79.51 Long term (current) use of inhaled steroids; Z79.891 Long term (current) use of opiate analgesic; Z79.899 Other long term (current) drug therapy
CPT/HCPCS: 99211

== ENCOUNTER 2019-08-13 11:33 | Emergency (ER) | payer MEDICARE, OTHER ==
[2019-08-13 12:09] VITALS: BP 216/106; PULSE 82; RESP 19; TEMP 98.4
--- NOTE | 2019-08-13 13:07 | XR ---
Right hand HISTORY: Proximal thumb pain, history of trauma 3 views of the right hand Postop changes are noted to the diaphyseal aspect of the right ulna. Some remodeling present at the r adiocarpal joint. There is some sclerosis, marginal spurring at the carpometacarpal joint of the firs t digit, metacarpophalangeal and interphalangeal joints of the first digit, distal interphalangeal amarilys int of the second digit. Bone mineralization and alignment are maintained. Lateral view not optimally positioned. Question soft tissue swelling. IMPRESSION: Osteoarthritis in postop changes.
[2019-08-13] MEDS ORDERED: HYDROcodone/APAP 5-325MG 1 EACH TAB PO STA (13:09)
[2019-08-13] MEDS ORDERED: traMADol 50 MG STARTER PACK 3 TAB BTL PO STA (13:20)
--- NOTE | 2019-08-13 13:20 | ED ---
General Adult HPI - General Chief complaint: Extremity Injury, Upper Stated complaint: Thumb Injury Time Seen by Provider: 08/13/19 12:58 Source: patient Mode of arrival: ambulatory Limitations: no limitations - History of Present Illness Initial comments: Dictation was produced using [employer] dictation software. please excuse any grammatical, word or spelling errors. Chief Complaint: 63-year-old female presents with right hand pain. History of Present Illness: 63-year-old female she presents today with right hand.. She struck her hand while playing with her grandson. She reports hitting the lateral part of her right hand on the wall. States that since that she's been having pain. Patient localizes the pain to just over the right metacarpal. Patient states is tender to touch. The ROS documented in this emergency department record has been reviewed and confirmed by me. Those systems with pertinent positive or negative responses have been documented in the HPI. All other systems are other negative and/or noncontributory. PHYSICAL EXAM: General Impression: Alert and oriented x3, not in acute distress HEENT: Normocephalic atraumatic, extra-ocular movements intact, pupils equal and reactive to light bilaterally, mucous membranes moist. Cardiovascular: Heart regular rate and rhythm, S1&S2 audible, no murmurs, rubs or gallops Chest: Lungs clear to auscultation bilaterally, no rhonchi, no wheeze, no rales Abdomen: Bowel sounds present, abdomen soft, non-tender, non-distended, no organomegaly Musculoskeletal: Pulses present and equal in all extremities, no peripheral edema Right hand: No pain of the scaphoid tubercle, no pain at the base of the thumb with axial loading, no snuffbox tenderness or tenderness to palpation over the right MCP Motor: no focal deficits noted Neurological: CN II-XII grossly intact, no focal motor or sensory deficits noted Skin: Intact with no visualized rashes Psych: Normal affect and mood ED course: 63-year-old female presents with ankle presentation consistent with hand contusion. On arrival are within acceptable limits. Patient given by mouth analgesia. X-rays are unremarkable. No concerns for scaphoid injury given mechanism of injury and physical examination. Patient placed in Nilo wrap for comfort. Patient given starter pack tramadol. She is advised to ice the area. Patient clear for discharge. - Related Data Home Medications Medication Instructions Recorded Confirmed Butalb/Acetaminophen/Caffeine 1 tab PO BID PRN 04/11/14 07/09/19 [Fioricet 50-325-40 mg Tablet] INSULIN LISPRO (humaLOG) [humaLOG] See Protocol SQ AC-TID PRN 04/14/14 07/09/19 Budesonide-Formot 160-4.5 Mcg 2 puff INHALATION RT-BID PRN 10/25/15 07/09/19 [Symbicort 160-4.5 Mcg Inhaler] Lisinopril [Zestril] 40 mg PO HS 04/04/16 07/09/19 Insulin Glargine [Lantus] 80 unit SQ HS 05/02/16 07/09/19 Previous Rx's Medication Instructions Recorded Pantoprazole [Protonix] 40 mg PO AC-BID #60 tablet. 12/19/16 Cyclobenzaprine [Flexeril] 10 mg PO BID #60 tab 07/09/19 Morphine Sulfate ER [Ms Contin] 30 mg PO Q12H 30 Days #60 tab 07/09/19 Morphine Sulfate ER [Ms Contin] 30 mg PO Q12HR 30 Days #60 tab 07/09/19 Allergies Allergy/AdvReac Type Severity Reaction Status Date / Time ibuprofen [From Motrin] AdvReac Abdominal Verified 07/09/19 12:20 Pain and vomiting Review of Systems ROS Statement: Those systems with pertinent positive or pertinent negative responses have been documented in the HPI. ROS Other: All systems not noted in ROS Statement are negative. Past Medical History Past Medical History: Asthma, COPD, Diabetes Mellitus, GERD/Reflux, Hyperlipidemia, Hypertension Additional Past Medical History / Comment(s): Chronic back pain, MIGRAINE HEADACHES. hx kidney stone, patient had back surgerysept 2018 at [facility] History of Any Multi-Drug Resistant Organisms: MRSA Date of last positivie culture/infection: 2011, MDRO Source:: UNK Past Surgical History: Appendectomy, Back Surgery, Cholecystectomy, Joint Replacement, Orthopedic Surgery Additional Past Surgical History / Comment(s): Fusion and kane down back. Left Shoulder Replacement, Right knee replacement, plate in right wrist, left thumb joint repair, Right carpal tunnel repair, Right shoulder scope, Cervical fusion. LARYNGOSCOPY. November 2016 Cervical Plate, Lower Back surgery 04/21/19 at [facility]. Past Anesthesia/Blood Transfusion Reactions: No Reported Reaction Past Psychological History: Bipolar Smoking Status: Former smoker Past Alcohol Use History: None Reported Past Drug Use History: None Reported - Past Family History Brother(s) Family Medical History: Cancer, Myocardial Infarction ([place]) Father Family Medical History: Cancer Additional Family Medical History / Comment(s): throat, colon, liver, and brain cancer. Mother Family Medical History: Myocardial Infarction ([place]) Additional Family Medical History / Comment(s): at 54 of [place]. General Exam Limitations: no limitations Course Vital Signs 08/13/19 12:06 Temperature 98.4 F Pulse Rate 82 Respiratory 19 Rate Blood Pressure 216/106 O2 Sat by Pulse 97 Oximetry Disposition Clinical Impression: Hand contusion Disposition: HOME SELF-CARE Condition: Good Instructions (If sedation given, give patient instructions): Tramadol (By mouth) Is patient prescribed a controlled substance at d/c from ED?: No Referrals: Scarlet Dior MD [Primary Care Provider] - 1-2 days Time of Disposition: 13:20
== END 2019-08-13 13:38 | disposition home or self-care (01) ==
LOC: EC 11:33
DX: S60.221A Contusion of right hand, initial encounter (principal); J44.9 Chronic obstructive pulmonary disease, unspecified; E11.9 Type 2 diabetes mellitus without complications; I10 Essential (primary) hypertension; Z79.4 Long term (current) use of insulin; Z79.899 Other long term (current) drug therapy; Z88.6 Allergy status to analgesic agent; Z87.891 Personal history of nicotine dependence; Z96.651 Presence of right artificial knee joint; Z96.612 Presence of left artificial shoulder joint; Z98.1 Arthrodesis status; W22.01XA Walked into wall, initial encounter
CPT/HCPCS: 99283

== ENCOUNTER → 2019-09-03 | Outpatient (CLI) | payer MEDICARE, OTHER ==
[2019-09-03 12:02] VITALS: BP 197/105; PULSE 81; RESP 18
--- NOTE | 2019-09-03 12:54 | P.PAINPG ---
Subjective Progress Note Date: 09/03/19 This is follow-up visit for this 63 year old Female with a history of severe and chronic low back pain , is diagnosed with lumbar radiculopathy, lumbar facet arthropathy, right SI joint dysfunction. She has had right SI joint fusion done in April 2019. Her current pain is located in the right side of her low back rated as 9/10, with chronic numbness and tingling to right foot since her first back surgery in 1998. Pain has been present for more than 20 years. Pain is worse with bending, lifting, positioning and better with medications and TENS unit. The patient currently on MS Contin 30 mg twice a day ,and Flexeril 10 mg twice a day Patient denies any side effect of the medication , patient denies any excessive drowsiness or sleepiness, patient denies any suicidal ideation, Patient reported that the current medication is helping to control the pain and improve the activity of daily living Review of systems is negative for chest pain, shortness of breath, new onset weakness, numbness/tingling, abdominal pain, malaise, fever, night sweats, chills, homicidal or suicidal ideation, or bowel or bladder incontinence. Physical Examinations : Vitals: Reviewed in EMR, of note patient's blood pressure is high GENERAL: Well appearing, in no acute distress, morbidly obese PSYCH: Mood and affect is appropriate. Awake, alert, and oriented SKIN: Skin color, texture, turgor normal, no rashes or lesions HEENT: Normocephalic, atraumatic. EOM intact CV: No pedal edema RESP: Respirations are unlabored, no audible wheezing GI: Abdomen obese MUSCULOSKELETAL: Bilateral lower extremity strength is normal and symmetric. No atrophy or tone abnormalities are noted. Lumbar spine: Straight leg raising in the sitting position is negative for radicular pain. No pain to palpation over the lumbar spine and paraspinous muscles. Buttocks: Pain to palpation over the right PSIS, SI joint fusion scars are visible and well-healed Extremities: Peripheral joint ROM is full and pain free without obvious instability or laxity in all four extremities. No edema or skin discolorations noted. Gait: Gait is slow, antalgic NEUR: Bilateral patellar reflexes absent. Loss of sensation is noted to light touch in right lateral thigh and lateral calf. No clonus Imaging: lumbar spine CT showed degenerative disc disease, multilevel facet arthropathy, foraminal's encroachment similar to prior exams. There is spinal stenosis greatest at L3-4, L4-5. No acute fracture or subluxation. Assessment and plan= Lumbar Radiculopathy , lumbar spondylosis with lumbar facet arthropathy and right sacroiliitis status post right SI joint fusion. Failed back surgery syndrome. chronic and current use of high-risk medication (opioids) Patient denies any side effects of the current pain medication and the current treatment/medication helping the patient to do activity of daily living , Diagnoses, prognosis, treatment options, including but not limited to physical therapy, medication management, interventional therapies, and surgery, were discussed with the patient All the questions answered Patient was counseled on importance of diet, exercise and weight loss. The narcotic consent has been signed and patient agreed and understood the side effects and complications of opioid treatment Patient was counseled not to drive or operate heavy equipment while using narcotic medication, and advised not to use alcohol or any Illicit drugs while using the narcotics. understanding that lack of compliance with any of the above instructions, will likely to cause discharge from, the pain service, not to renew her narcotic prescriptions Medication managements= patient will be given prescription refills for MS Contin 30 mg every 12 hours dispense 60 with 2 refill and Flexeril 10 mg twice a day dispense 60 with 2 refill Interventions= none at this time MAPS reviewed and it was appropriate. Urine drug screen sent today Of note, her blood pressure was high today in clinic, she was instructed to follow up with her primary care physician regarding this. Follow-up: In 2 months for medication management PQRS Measure Charge Sheet Measure #130: Documentation of Current Meds in Medical Chart: Patient's medications documented in chart Measure #226: Tobacco Use: Screen & Cessation Intervention: Pt not a tobacco use r Measure #111: Pneumonia Vaccination: Pneumococcal vaccine administered or previously received Measure #47: Advance Care Plan: Advance care planning discussed & documented, pt chose/unable to give Measure #408: Opioid Therapy Follow-up Evaluation: Patient had f/u eval minimum every 3 months during opioid therapy Measure #317: Preventitive Care & Scrn High Bld Press & F/U: Pre-hypertensive or hypertensive BP documented, pt will f/u with PCP Measure #128: Body Mass Index (BMI) Screening & Follow-up: BMI documented ABOVE normal parameters - f/u documented Measure #131: Pain Assessment & Follow-up: Pain positive & plan documented, Follow-up scheduled Measure #431: Unhealthy Alcohol Use Preventative Care & Scrn: Patient not identified as an unhealthy alcohol user Objective - Vital Signs Vital signs: Intake & Output 09/02/19 09/03/19 09/03/19 18:59 06:59 18:59 Weight 106.594 kg PQRS Measure Charge Sheet PQRS Narrative: Smoking Status Former smoker Narcotic Agreement Date Signed 05/14/19 Scale Used Numeric (1 - 10) Hx Alcohol Use (MH) No Home Medications: Ambulatory Orders Butalb/Acetaminophen/Caffeine [Fioricet 50-325-40 mg Tablet] 1 tab PO BID PRN 04/11/14 INSULIN LISPRO (humaLOG) [humaLOG] See Protocol SQ AC-TID PRN 04/14/14 Budesonide-Formot 160-4.5 Mcg [Symbicort 160-4.5 Mcg Inhaler] 2 puff INHALATION RT-BID PRN 10/25/15 Lisinopril [Zestril] 40 mg PO HS 04/04/16 Insulin Glargine [Lantus] 80 unit SQ HS 05/02/16 Pantoprazole [Protonix] 40 mg PO AC-BID #60 tablet. 12/19/16 Cyclobenzaprine [Flexeril] 10 mg PO BID #60 tab 07/09/19 Morphine Sulfate ER [Ms Contin] 30 mg PO Q12HR 30 Days #60 tab 07/09/19 Controlled Substance Measures - Controlled Substance Measures Is patient prescribed a controlled substance at discharge?: Yes When asked, does pt state using other controlled substances?: No If prescribed controlled substance>3 days was MAPS reviewed?: Yes If Rx opioid, was Start Talking consent form obtained?: Yes If opioid is for acute pain is fill amount 7 days or less?: No Was information provided regarding opioid addiction?: Yes
== END | disposition home or self-care (01) ==
LOC: PNWHC3 11:37
PROVIDERS: ATTEND Anesthesiology
DX: M47.26 Other spondylosis with radiculopathy, lumbar region (principal); M46.96 Unspecified inflammatory spondylopathy, lumbar region; M46.1 Sacroiliitis, not elsewhere classified; M96.1 Postlaminectomy syndrome, not elsewhere classified; Z98.1 Arthrodesis status; Z79.891 Long term (current) use of opiate analgesic; Z87.891 Personal history of nicotine dependence; Z79.4 Long term (current) use of insulin; Z79.51 Long term (current) use of inhaled steroids; Z79.899 Other long term (current) drug therapy
CPT/HCPCS: 80307; G0482; G0463; 99211

== ENCOUNTER → 2019-10-29 | Outpatient (CLI) | payer MEDICARE, OTHER ==
[2019-10-29 12:47] VITALS: BP 177/94; PULSE 89; RESP 16
--- NOTE | 2019-10-29 19:11 | P.PAINPG ---
Subjective Progress Note Date: 10/29/19 This is Follow up visit for this 64-year-old female with severe low back pain, status post bilateral SI joint fusion done at outside [facility] , patient also she had lumbar fusion surgery done a few years ago she continued to have severe low back pain, and she continued to use MS Contin 30 mg twice a day and Flexeril 10 mg twice a day she denies any side effects of the medication, she denies any excessive drowsiness or sleepiness and she put the current medication is helping her to improve her pain and improve quality of life, she denies any suicidal the ideations ,she denies any motor or sensory deficits she denies any fever or night sweats, intensity of the pain 4/10 with the pain me dications ,increased to 8/ 10 with any activity Objective - Vital Signs Vital signs: Vital Signs Temp Pulse 89 10/29/19 12:41 Resp 16 10/29/19 12:41 BP 177/94 10/29/19 12:41 Pulse Ox Intake & Output 10/29/19 10/29/19 10/30/19 06:59 18:59 06:59 Weight 117.934 kg - Exam Physical Examinations : -Constitutiona : Cooperative , not in acute distress . -HEENT : nech : supple , no Lymphadenopathy , normal thyroid size . : eyes : no ptosis , no icterus, no photophobia . - neurologic : Cranial nerve II to XII intact , no focal neurological deffecit . -psychatric : alert , oriented X 3 , appropriate affect , intact judgment and insight . -Lymphatic : no Lymphadenopathy . - musculoskeltal : Lumber spine moter stegnth lower extremities ,thigh and legs 5/5 Right side , 5/5 Left side deep tendon reflexes : normal Knee Jerk , normal ankle Jerk lumber facet Loading Test =positive Right , positive Left . Sever tenderness over the Sacroiliac joint on the Right , and Left sides Gaenslen test= positive right ,and positive left . Seated flexion test= positive right ,and positive Left Imaging: lumbar spine CT showed degenerative disc disease, multilevel facet arthropathy, foraminal's encroachment similar to prior exams. There is spinal stenosis greatest at L3-4, L4-5. No acute fracture or subluxation. Assessment and Plan Plan: Assessment and plan= Lumbar Radiculopathy , lumbar spondylosis with lumbar facet arthropathy and right sacroiliitis status post right SI joint fusion. Failed back surgery syndrome. chronic and current use of high-risk medication (opioids) Patient denies any side effects of the current pain medication and the current treatment/medication helping the patient to do activity of daily living , Diagnoses, prognosis, treatment options, including but not limited to physical therapy, medication management, interventional therapies, and surgery, were discussed with the patient All the questions answered Patient was counseled on importance of diet, exercise and weight loss. The narcotic consent has been signed and patient agreed and understood the side effects and complications of opioid treatment Patient was counseled not to drive or operate heavy equipment while using narcotic medication, and advised not to use alcohol or any Illicit drugs while using the narcotics. understanding that lack of compliance with any of the above instructions, will likely to cause discharge from, the pain service, not to renew her narcotic prescriptions Medication managements= patient will be given prescription refills for MS Contin 30 mg every 12 hours dispense 60 with 2 refill and Flexeril 10 mg daily a day dispense 30 with 2 refill (Decreased Flexeril to 10 mg daily when necessary, as patient had less frequent muscle spasms ) Interventions= none at this time MAPS reviewed and it was appropriate. . Follow-up: In 2 months for medication management Time with Patient: Less than 30 PQRS Measure Charge Sheet Measure #130: Documentation of Current Meds in Medical Chart: Patient's medications documented in chart Measure #226: Tobacco Use: Screen & Cessation Intervention: Pt not a tobacco user Measure #111: Pneumonia Vaccination: Pneumococcal vaccine NOT administered or previously given Measure #47: Advance Care Plan: Advance care planning discussed & documented, pt chose/unable to give Measure #412: Opioid Treatment Agreement: Documented signed opioid trtmnt agreemnt min once during opioid trtmnt Measure #408: Opioid Therapy Follow-up Evaluation: Patient had f/u eval minimum every 3 months during opioid therapy Measure #317: Preventitive Care & Scrn High Bld Press & F/U: Pre-hypertensive or hypertensive BP documented, pt will f/u with PCP Measure #128: Body Mass Index (BMI) Screening & Follow-up: BMI documented ABOVE normal parameters - f/u documented Measure #131: Pain Assessment & Follow-up: Pain positive & plan documented, Follow-up scheduled Measure #431: Unhealthy Alcohol Use Preventative Care & Scrn: Patient not identified as an unhealthy alcohol user PQRS Narrative: Smoking Status Former smoker Narcotic Agreement Date Signed 05/14/19 Blood Pressure 177/94 Pain Intensity [Bilateral 9 Lower Back] Scale Used Numeric (1 - 10) Hx Alcohol Use (MH) No Home Medications: Ambulatory Orders Butalb/Acetaminophen/Caffeine [Fioricet 50-325-40 mg Tablet] 1 tab PO BID PRN 04/11/14 INSULIN LISPRO (humaLOG) [humaLOG] See Protocol SQ AC-TID PRN 04/14/14 Budesonide-Formot 160-4.5 Mcg [Symbicort 160-4.5 Mcg Inhaler] 2 puff INHALATION RT-BID PRN 10/25/15 Lisinopril [Zestril] 40 mg PO HS 04/04/16 Insulin Glargine [Lantus] 80 unit SQ HS 05/02/16 Pantoprazole [Protonix] 40 mg PO AC-BID #60 tablet. 12/19/16 Cyclobenzaprine [Flexeril] 10 mg PO BID #60 tab 07/09/19 Morphine Sulfate ER [Ms Contin] 30 mg PO Q12HR 30 Days #60 tab 07/09/19 Controlled Substance Measures - Controlled Substance Measures Is patient prescribed a controlled substance at discharge?: Yes
== END | disposition home or self-care (01) ==
LOC: PNWHC3 11:41
PROVIDERS: ATTEND Specialist
DX: M47.26 Other spondylosis with radiculopathy, lumbar region (principal); M46.1 Sacroiliitis, not elsewhere classified; M96.1 Postlaminectomy syndrome, not elsewhere classified; Z87.891 Personal history of nicotine dependence; Z79.899 Other long term (current) drug therapy
CPT/HCPCS: 99211

== ENCOUNTER → 2020-01-04 | Outpatient (CLI) | payer MEDICARE, OTHER ==
--- NOTE | 2020-01-04 13:42 | P.PAINPG ---
Subjective Progress Note Date: 01/04/20 THIS ENCOUNTER WAS PERFORMED A TELEMEDICINE VISIT VIA TWO-WAY AUDIO TO MINIMIZE RISK AND TRANSMISSION OF COVID-19. This is a follow up visit for this 64-year-old female with severe low back pain, status post bilateral SI joint fusion done at outside [facility] , patient also she had lumbar fusion surgery done a few years ago she continued to have severe low back pain, and she continued to use MS Contin 30 mg twice a day and Flexeril 10 mg once a day she denies any side effects of the medication, she denies any excessive drowsiness or sleepiness and she states that the current medication is helping her to improve her pain and improve quality of life, she denies any suicidal the ideation ,she denies any motor or sensory deficits she denies any fever or night sweats, intensity of the pain 7/10 with the pain medications ,increased to 9/ 10 with weather change. Pain located in right low back, described as sharp, stabbing, worse with walking, twisting, standing; better with medications, TENS unit. Patient is walking for exercise. Review of systems is negative for chest pain, shortness of breath, new onset weakness, numbness/tingling, abdominal pain, malaise, fever, night sweats, chills, homicidal or suicidal ideation, or bowel or bladder incontinence. Objective Physical exam unable to be performed due to audio only tele-visit Imaging: lumbar spine CT showed degenerative disc disease, multilevel facet arthropathy, foraminal's encroachment similar to prior exams. There is spinal stenosis greatest at L3-4, L4-5. No acute fracture or subluxation. Assessment and Plan Assessment and plan= Lumbar Radiculopathy , lumbar spondylosis with lumbar facet arthropathy and right sacroiliitis status post right SI joint fusion. Failed back surgery syndrome. chronic and current use of high-risk medication (opioids) Patient denies any side effects of the current pain medication and the current treatment/medication helping the patient to do activity of daily living , The narcotic consent has been signed and is on file Medication management= patient will be given prescription refills for MS Contin 30 mg every 12 hours dispense 60 with 1 refill and Flexeril 10 mg daily a day dispense 30 with 1 refill. Patient was instructed to take Tylenol upto 3 grams per day. Interventions= none at this time MAPS reviewed and it was appropriate. . Follow-up: In 2 months for medication management PQRS Measure Charge Sheet PQRS Narrative: Smoking Status Former smoker Narcotic Agreement Date Signed 05/14/19 Pain Intensity [Lower Back] 10 Scale Used Numeric (1 - 10) Hx Alcohol Use (MH) No Home Medications: Ambulatory Orders Butalb/Acetaminophen/Caffeine [Fioricet 50-325-40 mg Tablet] 1 tab PO BID PRN 04/11/14 INSULIN LISPRO (humaLOG) [humaLOG] See Protocol SQ AC-TID PRN 04/14/14 Budesonide-Formot 160-4.5 Mcg [Symbicort 160-4.5 Mcg Inhaler] 2 puff INHALATION RT-BID PRN 10/25/15 Lisinopril [Zestril] 40 mg PO HS 04/04/16 Insulin Glargine [Lantus] 80 unit SQ HS 05/02/16 Pantoprazole [Protonix] 40 mg PO AC-BID #60 tablet. 12/19/16 Cyclobenzaprine [Flexeril] 10 mg PO BID #60 tab 07/09/19 Morphine Sulfate ER [Ms Contin] 30 mg PO Q12HR 30 Days #60 tab 07/09/19 Controlled Substance Measures - Controlled Substance Measures Is patient prescribed a controlled substance at discharge?: Yes When asked, does pt state using other controlled substances?: No If prescribed controlled substance>3 days was MAPS reviewed?: Yes If Rx opioid, was Start Talking consent form obtained?: Yes If opioid is for acute pain is fill amount 7 days or less?: No Was information provided regarding opioid addiction?: Yes
== END ==
LOC: PNWHC3 07:45
PROVIDERS: ATTEND Anesthesiology
DX: Z53.9 Procedure and treatment not carried out, unspecified reason (principal)

== ENCOUNTER → 2020-02-24 | Outpatient (CLI) | payer MEDICARE, OTHER ==
--- NOTE | 2020-02-25 12:18 | P.PAINPG ---
Subjective Progress Note Date: 02/24/20 This is Follow up visit for this 64-year-old female with severe low back pain, status post bilateral SI joint fusion done at outside [facility] , patient also she had lumbar fusion surgery done a few years ago she continued to have severe low back pain, and she continued to use MS Contin 30 mg twice a day and Flexeril 10 mg twice a day she denies any side effects of the medication, she denies any excessive drowsiness or sleepiness and she put the current medication is helping her to improve her pain and improve quality of life, she denies any suicidal the ideations ,she denies any motor or sensory deficits she denies any fever or night sweats, intensity of the pain 4/10 with the pain me dications ,increased to 8/ 10 with any activity Objective - Vital Signs Vital signs: Vital Signs Temp Pulse 99 02/24/20 14:35 Resp 16 02/24/20 14:35 BP 164/98 02/24/20 14:35 Pulse Ox 95 02/24/20 14:35 - Exam -Constitutiona : Cooperative , not in acute distress . -HEENT : nech : supple , no Lymphadenopathy , normal thyroid size . : eyes : no ptosis , no icterus, no photophobia . - neurologic : Cranial nerve II to XII intact , no focal neurological deffecit . -psychatric : alert , oriented X 3 , appropriate affect , intact judgment and insight . -Lymphatic : no Lymphadenopathy . - musculoskeltal : Lumber spine moter stegnth lower extremities ,thigh and legs 5/5 Right side , 5/5 Left side deep tendon reflexes : normal Knee Jerk , normal ankle Jerk lumber facet Loading Test =positive Right , positive Left . Sever tenderness over the Sacroiliac joint on the Right , Gaenslen test= positive right . Seated flexion test= positive right , Assessment and Plan Plan: right sacroiliitis status post right SI joint fusion. Failed back surgery syndrome. chronic and current use of high-risk medication (opioids) Patient denies any side effects of the current pain medication and the current treatment/medication helping the patient to do activity of daily living , Diagnoses, prognosis, treatment options, including but not limited to physical therapy, medication management, interventional therapies, and surgery, were discussed with the patient All the questions answered Patient was counseled on importance of diet, exercise and weight loss. The narcotic consent has been signed and patient agreed and understood the side effects and complications of opioid treatment Patient was counseled not to drive or operate heavy equipment while using narcotic medication, and advised not to use alcohol or any Illicit drugs while using the narcotics. understanding that lack of compliance with any of the above instructions, will likely to cause discharge from, the pain service, not to renew her narcotic prescriptions Medication managements= patient will be given prescription refills for MS Contin 30 mg every 12 hours dispense 60 with 1 refill MAPS reviewed and it was appropriate. . Urine drug screen ordered today Follow-up: In 2 months for medication management Interventions= patient could benefit from right-sided sacroiliac joint steroid injections under fluoroscopy guidance Time with Patient: Less than 30 PQRS Measure Charge Sheet Measure #130: Documentation of Current Meds in Medical Chart: Patient's medications documented in chart Measure #226: Tobacco Use: Screen & Cessation Intervention: Pt not a tobacco user Measure #111: Pneumonia Vaccination: Pneumococcal vaccine administered or previously received Measure #47: Advance Care Plan: Advance care planning discussed & documented, pt chose/unable to give Measure #412: Opioid Treatment Agreement: Documented signed opioid trtmnt agreemnt min once during opioid trtmnt Measure #408: Opioid Therapy Follow-up Evaluation: Patient had f/u eval minimum every 3 months during opioid therapy Measure #317: Preventitive Care & Scrn High Bld Press & F/U: Pre-hypertensive or hypertensive BP documented, pt will f/u with PCP Measure #128: Body Mass Index (BMI) Screening & Follow-up: BMI documented ABOVE normal parameters - f/u documented Measure #131: Pain Assessment & Follow-up: Pain positive & plan documented, Follow-up scheduled Measure #431: Unhealthy Alcohol Use Preventative Care & Scrn: Patient not identified as an unhealthy alcohol user PQRS Narrative: Smoking Status Former smoker Narcotic Agreement Date Signed 02/24/20 Blood Pressure 164/98 Pain Intensity [Right Lower 9 Back] Scale Used Numeric (1 - 10) Hx Alcohol Use (MH) No Home Medications: Ambulatory Orders Butalb/Acetaminophen/Caffeine [Fioricet 50-325-40 mg Tablet] 1 tab PO BID PRN 04/11/14 INSULIN LISPRO (humaLOG) [humaLOG] See Protocol SQ AC-TID PRN 04/14/14 Budesonide-Formot 160-4.5 Mcg [Symbicort 160-4.5 Mcg Inhaler] 2 puff INHALATION RT-BID PRN 10/25/15 Lisinopril [Zestril] 40 mg PO HS 04/04/16 Insulin Glargine [Lantus] 80 unit SQ HS 05/02/16 Pantoprazole [Protonix] 40 mg PO AC-BID #60 tablet. 12/19/16 Cyclobenzaprine [Flexeril] 10 mg PO BID #60 tab 01/04/20 Morphine Sulfate ER [Ms Contin] 30 mg PO Q12HR 30 Days #60 tab 02/09/20 Acetaminophen [Tylenol Extra Strength] 1,000 mg PO Q2H PRN 02/23/20 Lidocaine 5% Patch [Lidoderm 5% Patch] 1 patch TOPICAL DAILY 02/24/20 Controlled Substance Measures - Controlled Substance Measures Is patient prescribed a controlled substance at discharge?: Yes When asked, does pt state using other controlled substances?: No If prescribed controlled substance>3 days was MAPS reviewed?: Yes If Rx opioid, was Start Talking consent form obtained?: Yes If opioid is for acute pain is fill amount 7 days or less?: No Was information provided regarding opioid addiction?: Yes
[2020-02-26 09:30] VITALS: BP 164/98; PULSE 99; RESP 16
== END | disposition home or self-care (01) ==
LOC: PNWHC3 12:52
PROVIDERS: ATTEND Specialist
DX: M96.1 Postlaminectomy syndrome, not elsewhere classified (principal); M46.1 Sacroiliitis, not elsewhere classified; Z98.1 Arthrodesis status; F11.90 Opioid use, unspecified, uncomplicated; Z87.891 Personal history of nicotine dependence; Z79.899 Other long term (current) drug therapy; Z79.4 Long term (current) use of insulin; Z79.51 Long term (current) use of inhaled steroids
CPT/HCPCS: 80307; G0482; G0463; 99211

== ENCOUNTER → 2020-03-15 | Day surgery (SDC) | payer MEDICARE, OTHER ==
[2020-03-11 12:15] VITALS: BMI 36.6
[~2020-03-15] MED LIST changes: +LACTATED RINGERS 1,000 ML IV SCH; +LIDOCAINE 1% (10MG/ML) FOR IV START INTRADERMA ONE; -SODIUM CHLORIDE 0.9% 500 ML 500 ML IV SCH
[2020-03-15 06:35] VITALS: BP 248/190; PULSE 91; RESP 16; TEMP 96.4
[2020-03-15 06:39] LABS: Glucose,Whole Blood 230 mg/dL (75-99)
--- NOTE | 2020-03-15 07:30 | P.PN ---
Progress Note - Text Progress Note Date: 03/15/20 Patient was scheduled to undergo right SI joint injection, however in preop, her blood sugar was 2 30 mg/dL and blood pressure was 220/98 mmHg. I cancelled her procedure today. I will make arrangements for her to see her primary care physician today. She is already scheduled to see her picc nurse next week. We will plan on rescheduling her procedure once her blood pressure and blood sugar are better controlled.
[2020-03-15 07:46] LABS: Albumin 3.9 g/dL (3.5-5.0); Calcium 9.3 mg/dL (8.4-10.2); Potassium 4.3 mmol/L (3.5-5.1); Total Bilirubin 0.5 mg/dL (0.2-1.3)
[2020-03-15 14:31] LABS: Urine Creatinine 138.4 mg/dL
[2020-03-15 15:22] LABS: Hemoglobin A1C 9.1 % (4.0-6.0)
== END ==
LOC: ORPAIN 06:15
PROVIDERS: ATTEND Anesthesiology
DX: M46.1 Sacroiliitis, not elsewhere classified (principal); Z53.09 Procedure and treatment not carried out because of other contraindication; R03.0 Elevated blood-pressure reading, without diagnosis of hypertension
CPT/HCPCS: 80053; 80061; 82043; 82570; 83036; 84443

== ENCOUNTER → 2020-04-20 | Outpatient (CLI) | payer MEDICARE, OTHER ==
[2020-04-20 14:05] VITALS: BP 157/85; PULSE 91; RESP 18; TEMP 98.2
--- NOTE | 2020-04-21 14:50 | P.PN ---
Subjective Progress Note Date: 04/20/20 This is Follow up visit for this 64-year-old female with severe low back pain, status post bilateral SI joint fusion done at outside [facility] , patient also she had lumbar fusion surgery done a few years ago she continued to have severe low back pain, and she continued to use MS Contin 30 mg twice a day and Flexeril 10 mg twice a day she denies any side effects of the medication, she denies any excessive drowsiness or sleepiness and she put the current medication is helping her to improve her pain and improve quality of life, she denies any suicidal the ideations ,she denies any motor or sensory deficits she denies any fever or night sweats, intensity of the pain 4/10 with the pain medications ,increased to 8/ 10 with any activity Physical examination -Constitutiona : Cooperative , not in acute distress . -HEENT : nech : supple , no Lymphadenopathy , normal thyroid size . : eyes : no ptosis , no icterus, no photophobia . - neurologic : Cranial nerve II to XII intact , no focal neurological deffecit . -psychatric : alert , oriented X 3 , appropriate affect , intact judgment and insight . -Lymphatic : no Lymphadenopathy . - musculoskeltal : Lumber spine moter stegnth lower extremities ,thigh and legs 5/5 Right side , 5/5 Left side deep tendon reflexes : normal Knee Jerk , normal ankle Jerk lumber facet Loading Test =positive Right , positive Left . Sever tenderness over the Sacroiliac joint on the Right , Gaenslen test= positive right . Seated flexion test= positive right , Assessment and plan= right sacroiliitis status post right SI joint fusion. Failed back surgery syndrome. chronic and current use of high-risk medication (opioids) Patient denies any side effects of the current pain medication and the current treatment/medication helping the patient to do activity of daily living , Diagnoses, prognosis, treatment options, including but not limited to physical therapy, medication management, interventional therapies, and surgery, were discussed with the patient All the questions answered Patient was counseled on importance of diet, exercise and weight loss. The narcotic consent has been signed and patient agreed and understood the side effects and complications of opioid treatment Patient was counseled not to drive or operate heavy equipment while using narcotic medication, and advised not to use alcohol or any Illicit drugs while using the narcotics. understanding that lack of compliance with any of the above instructions, will likely to cause discharge from, the pain service, not to renew her narcotic prescriptions Medication managements= patient will be given prescription refills for MS Contin 30 mg every 12 hours dispense 60 with 1 refill MAPS reviewed and it was appropriate. . Follow-up: In 2 months for medication management Time with Patient: Less than 30 PQRS Measure Charge Sheet Measure #130: Documentation of Current Meds in Medical Chart: Patient's medications documented in chart Measure #226: Tobacco Use: Screen & Cessation Intervention: Pt not a tobacco user Measure #111: Pneumonia Vaccination: Pneumococcal vaccine administered or previously received Measure #47: Advance Care Plan: Advance care planning discussed & documented, pt chose/unable to give Measure #412: Opioid Treatment Agreement: Documented signed opioid trtmnt agreemnt min once during opioid trtmnt Measure #408: Opioid Therapy Follow-up Evaluation: Patient had f/u eval minimum every 3 months during opioid therapy Measure #317: Preventitive Care & Scrn High Bld Press & F/U: Pre-hypertensive or hypertensive BP documented, pt will f/u with PCP Measure #128: Body Mass Index (BMI) Screening & Follow-up: BMI documented ABOVE normal parameters - f/u documented Measure #131: Pain Assessment & Follow-up: Pain positive & plan documented, Follow-up scheduled Measure #431: Unhealthy Alcohol Use Preventative Care & Scrn: Patient not identified as an unhealthy alcohol user PQRS Narrative: - Controlled Substance Measures Is patient prescribed a controlled substance at discharge?: Yes When asked, does pt state using other controlled substances?: No If prescribed controlled substance>3 days was MAPS reviewed?: Yes If Rx opioid, was Start Talking consent form obtained?: Yes If opioid is for acute pain is fill amount 7 days or less?: No Was information provided regarding opioid addiction?: Yes Objective - Vital Signs Vital signs: Vital Signs Temp 98.2 F 04/20/20 13:50 Pulse 91 04/20/20 13:50 Resp 18 04/20/20 13:50 BP 157/85 04/20/20 13:50 Pulse Ox 96 04/20/20 13:50
== END | disposition home or self-care (01) ==
LOC: PNWHC3 13:10
PROVIDERS: ATTEND Specialist
DX: M46.1 Sacroiliitis, not elsewhere classified (principal); Z98.1 Arthrodesis status
CPT/HCPCS: 99211

== ENCOUNTER 2020-05-26 23:46 | Emergency (ER) | payer MEDICARE, OTHER ==
[2020-05-26 23:55] VITALS: BP 198/116; PULSE 96; RESP 20; TEMP 98.1
[2020-05-27] MEDS ORDERED: ACET/COD 300 MG/30 MG STARTER PACK 6 TAB BTL PO STA (00:08)
[2020-05-27] MEDS ORDERED: AMOXIC-POT CLAV 875MG STARTER PACK 2 TAB BTL PO STA (00:09)
--- NOTE | 2020-05-27 00:14 | ED ---
ENT HPI - General Chief complaint: ENT Stated complaint: ENT Time Seen by Provider: 05/26/20 23:57 Source: patient Mode of arrival: wheelchair Limitations: no limitations - History of Present Illness Initial comments: 64yo female with hx of DM and HTN presenting to the ER today for cc of right ear pain, patient states this morning ear pain started--increasing all day. Patient states its stabbing pain, no drainage, denies swelling of external ear or redness. Patient denies experiencing before. Patient denies fevers, chset pain, sob, nausea, vomiting, neck stiffness or pain. Patient has no additional complaints. UPon arrival patient holding ear. - Related Data Home Medications Medication Instructions Recorded Confirmed Butalb/Acetaminophen/Caffeine 1 tab PO BID PRN 04/11/14 04/20/20 [Fioricet 50-325-40 mg Tablet] INSULIN LISPRO (humaLOG) [humaLOG] See Protocol SQ AC-TID PRN 04/14/14 04/20/20 Budesonide-Formot 160-4.5 Mcg 2 puff INHALATION RT-BID PRN 10/25/15 04/20/20 [Symbicort 160-4.5 Mcg Inhaler] lisinopriL [Zestril] 40 mg PO HS 04/04/16 04/20/20 Insulin Glargine [Lantus] 80 unit SQ HS 05/02/16 04/20/20 Acetaminophen [Tylenol Extra 1,000 mg PO Q2H PRN 02/23/20 04/20/20 Strength] Previous Rx's Medication Instructions Recorded Pantoprazole [Protonix] 40 mg PO AC-BID #60 tablet. 12/19/16 Cyclobenzaprine [Flexeril] 10 mg PO BID #60 tab 04/20/20 Morphine Sulfate ER [Ms Contin] 30 mg PO Q12H 30 Days #60 tab 04/20/20 Morphine Sulfate ER [Ms Contin] 30 mg PO Q12HR 30 Days #60 tab 04/20/20 Amoxicillin/Potassium Clav 1 tab PO Q12HR 7 Days #14 tab 05/27/20 [Augmentin 875-125 Tablet] Ofloxacin 0.3% Otic Soln [Floxin 10 drops RIGHT EAR BID 7 Days #3 ml 05/27/20 0.3% Otic Soln] Allergies Allergy/AdvReac Type Severity Reaction Status Date / Time ibuprofen [From Motrin] AdvReac Abdominal Verified 05/26/20 23:55 Pain and vomiting Review of Systems ROS Statement: Those systems with pertinent positive or pertinent negative responses have been documented in the HPI. ROS Other: All systems not noted in ROS Statement are negative. Past Medical History Past Medical History: Asthma, COPD, Diabetes Mellitus, GERD/Reflux, Hyperlipidemia, Hypertension, Musculoskeletal Disorder Additional Past Medical History / Comment(s): Chronic back pain, MIGRAINE HEADACHES. hx kidney stone, patient had back surgery 04/21/2019 at [facility]. Ongoing back pain, NT Rt lower leg. History of Any Multi-Drug Resistant Organisms: MRSA Date of last positivie culture/infection: 2011, MDRO Source:: UNK Past Surgical History: Appendectomy, Back Surgery, Cholecystectomy, Joint Replacement, Orthopedic Surgery Additional Past Surgical History / Comment(s): Fusion and kane down back. Left Shoulder Replacement, Right knee replacement, plate in right wrist, left thumb joint repair, Right carpal tunnel repair, Right shoulder scope, Cervical fusion. LARYNGOSCOPY. November 2016 Cervical Plate, Lower Back surgery 04/21/19 at [facility]. PAIN CLINIC PROCEDURES Past Anesthesia/Blood Transfusion Reactions: No Reported Reaction Past Psychological History: Bipolar Smoking Status: Former smoker Past Alcohol Use History: None Reported Past Drug Use History: None Reported - Past Family History Brother(s) Family Medical History: Cancer, Myocardial Infarction ([place]) Father Family Medical History: Cancer Additional Family Medical History / Comment(s): throat, colon, liver, and brain cancer. Mother Family Medical History: Myocardial Infarction ([place]) Additional Family Medical History / Comment(s): at 54 of [place]. General Exam - General Exam Comments Initial Comments: General: The patient is awake and alert Eye: Pupils are equal, round and reactive to light, extra-ocular movements are intact. No nystagmus. There is normal conjunctiva bilaterally. No signs of icterus. Ears, nose, mouth and throat: There are moist mucous membranes and no oral lesions. TM erythematous with effusion, no perforation or drainage. There is some very mild redness of distal EAC. No swelling of EAC. There is no pain to palpation of tragus or pulling of auricle. No mastoid tenderness. Neck: The neck is supple, there is no tenderness or JVD. No nuchal rigidity Cardiovascular: There is a regular rate and rhythm. No murmur, rub or gallop is appreciated. Respiratory: Lungs are clear to auscultation, respirations are non-labored, breath sounds are equal. No wheezes, stridor, rales, or rhonchi. Musculoskeletal: Normal ROM, no tenderness. Strength 5/5. Sensation intact. Radial pulses equal bilaterally 2+. Neurological: A&O x 3. CN II-XII intact grossly, There are no obvious motor or sensory deficits. Coordination appears grossly intact. Speech is normal. Skin: Skin is warm and dry and no rashes or lesions are noted. Psychiatric: Cooperative, tearful Limitations: no limitations Course Vital Signs 05/26/20 23:51 Temperature 98.1 F Pulse Rate 96 Respiratory 20 Rate Blood Pressure 198/116 O2 Sat by Pulse 96 Oximetry Medical Decision Making - Medical Decision Making PE concerning for otitis media, no mastoiditis. Patient EAC is mildly erythematous near TM. Will add ofloxacin but have less suspicion for an externa. Patient is to f/u with pcp in 2 days immediately return for worsening pain. pat ient agreeable to care plan and discharge. Disposition Clinical Impression: Otitis media, Right ear pain Disposition: HOME SELF-CARE Condition: Good Instructions (If sedation given, give patient instructions): Ear Infection (ED) Additional Instructions: Please use medication as discussed. Please follow-up with family doctor in the next 2 days, return for increasing pain or fevers/ear swelling externally or drainage. Please return to emergency room if the symptoms increase or worsen or for any other concerns. Prescriptions: Amoxicillin/Potassium Clav [Augmentin 875-125 Tablet] 1 tab PO Q12HR 7 Days #14 tab Ofloxacin 0.3% Otic Soln [Floxin 0.3% Otic Soln] 10 drops RIGHT EAR BID 7 Days #3 ml Is patient prescribed a controlled substance at d/c from ED?: No Referrals: Scarlet Dior MD [Primary Care Provider] - 1-2 days Time of Disposition: 00:14
[2020-05-27] MEDS ORDERED: OFLOXACIN 0.3% OPHTH DROPS 5 ML BOTTLE RIGHT EAR SCH (00:15)
== END 2020-05-27 00:35 | disposition home or self-care (01) ==
LOC: EC 23:46
DX: H65.91 Unspecified nonsuppurative otitis media, right ear (principal); I10 Essential (primary) hypertension; J44.9 Chronic obstructive pulmonary disease, unspecified; E11.9 Type 2 diabetes mellitus without complications; G89.29 Other chronic pain; M54.9 Dorsalgia, unspecified; Z79.4 Long term (current) use of insulin; Z79.899 Other long term (current) drug therapy; Z88.6 Allergy status to analgesic agent; Z96.612 Presence of left artificial shoulder joint; Z96.651 Presence of right artificial knee joint; Z87.891 Personal history of nicotine dependence; Z87.442 Personal history of urinary calculi
CPT/HCPCS: 99282

== ENCOUNTER → 2020-06-15 | Outpatient (CLI) | payer MEDICARE, OTHER ==
[2020-06-15 12:15] LABS: Basophils # (A) 0.1 k/uL (0-0.2); Basophils % (A) 1 %; Eosinophils # (A) 0.2 k/uL (0-0.7); Eosinophils % (A) 3 %; HCT 46.1 % (34.0-46.0); HGB 15.1 gm/dL (11.4-16.0); Lymphocytes # (A) 1.7 k/uL (1.0-4.8); Lymphocytes % (A) 26 %; MCH 28.3 pg (25.0-35.0); MCHC 32.8 g/dL (31.0-37.0); MCV 86.4 fL (80.0-100.0); Mean Platelet Volume 8.1; Monocytes # (A) 0.3 k/uL (0-1.0); Monocytes % (A) 5 %; Neutrophils % (A) 63 %; Platelet Count 180 k/uL (150-450); RBC 5.34 m/uL (3.80-5.40); RDW 13.5 % (11.5-15.5); WBC 6.3 k/uL (3.8-10.6)
[2020-06-15 20:35] LABS: African American GFR (CKD) 61.9 (60.0-200.0); Albumin 4.1 g/dL (3.80-4.90); Albumin/Globulin Ratio 1.41 (1.60-3.17); BUN/Creat Ratio 14.55 Ratio (12.00-20.00); Calcium 9.4 mg/dL (8.7-10.3); Chol/HDL Ratio 4.95; Globulin 2.9 g/dL (1.6-3.3); LDL Cholesterol,Calculated 123.4 mg/dL (0.0-131.0); Non-African American GFR(CKD) 53.4 (60.0-200.0); Potassium 4.8 mmol/L (3.5-5.5); Total Bilirubin 0.3 mg/dL (0.2-1.2); VLDL Calculation 46.6 mg/dL (5.00-40.00)
[2020-06-15 21:06] LABS: Hemoglobin A1C 9.3 % (4.0-6.0)
[2020-06-15 21:25] LABS: Urine Creatinine 122.1 mg/dL
== END | disposition home or self-care (01) ==
LOC: LABWHC1 11:33
PROVIDERS: ATTEND Internal Medicine Endocrinology, Diabetes & Metabolism
DX: J44.9 Chronic obstructive pulmonary disease, unspecified (principal); I10 Essential (primary) hypertension; E11.65 Type 2 diabetes mellitus with hyperglycemia
CPT/HCPCS: 36415; 80053; 80061; 82043; 82306; 82570; 83036; 84436; 84443; 85025

== ENCOUNTER → 2020-06-15 | Outpatient (CLI) | payer MEDICARE, OTHER ==
[2020-06-15 11:01] VITALS: BP 172/99; PULSE 93; RESP 20; TEMP 98.4
--- NOTE | 2020-06-15 12:02 | P.PAINPG ---
Subjective Progress Note Date: 06/15/20 That is a 64-year-old female presents today for follow-up medication refill secondary to her chronic back pain. She reports she's doing OK. She has had injections in the past was to offer benefit. She has high blood pressure and diabetes sugars have been out of control so she is having difficulty getting injections. She reports that the pain medication does help. She denies any side effects. She denies any new symptoms today. Her VAS is 6 out of 10. Blood pressures are today she is frustrated with the way that the hospital handles COVID precautions. She does not like to walk very far. Objective - Vital Signs Vital signs: Vital Signs Temp 98.4 F 06/15/20 10:56 Pulse 93 06/15/20 10:56 Resp 20 06/15/20 10:56 BP 172/99 06/15/20 10:56 Pulse Ox 97 06/15/20 10:56 - Exam General: Awake and alert oriented 3 no distress, obese Respiratory exam: No audible wheezing no accessory muscle usage Cardiovascular exam: regular rate, palpable bilateral pulses, no lower extremity edema Abdominal exam: No distention nontender to palpation Cervical spine: Normal alignment, Spurling's negative, facet loading negative, Splash Line Operator strength is 5/5, peng negative Lumbar spine: Loss of lumbar lordosis, normal alignment, tender to palpation over bilateral paraspinal muscles, facet loading is positive bilaterally. Straight leg raise is negative. Limited range of motion due to pain with flexion, extension and side bending. Sacroiliac joints: Nontender to palpation, ELIZA is negative, Gaenselon negative Neuro exam: Normal sensation in bilateral upper extremities, deep tendon reflexes are 2+ bilateral upper extremities. Normal sensation in bilateral lower extremities. Deep tendon reflexes are 2+ in lower extremities Psych exam: Cooperative, appropriate mood Assessment and Plan Assessment: #1 lumbar spondylosis without myelopathy #2 sacroiliitis #3 lumbar radiculopathy #4 obesity #5 chronic opioid dependence Plan: We'll continue the current medications after checking her maps and urine drug screens. Continue to monitor the patient closely. We discussed diet and e xercise as a means of improving overall health. PQRS Measure Charge Sheet Measure #130: Documentation of Current Meds in Medical Chart: Patient's medications documented in chart Measure #226: Tobacco Use: Screen & Cessation Intervention: Pt screened for tobacco use AND intervention given Measure #111: Pneumonia Vaccination: Pneumococcal vaccine administered or previously received Measure #47: Advance Care Plan: Advance care planning discussed & documented, plan or surrogate given Measure #412: Opioid Treatment Agreement: Documented signed opioid trtmnt agreemnt min once during opioid trtmnt Measure #408: Opioid Therapy Follow-up Evaluation: Patient had f/u eval minimum every 3 months during opioid therapy Measure #317: Preventitive Care & Scrn High Bld Press & F/U: Pre-hypertensive or hypertensive BP documented, pt will f/u with PCP Measure #128: Body Mass Index (BMI) Screening & Follow-up: BMI documented ABOVE normal parameters - f/u documented Measure #131: Pain Assessment & Follow-up: Pain positive & plan documented Measure #431: Unhealthy Alcohol Use Preventative Care & Scrn: Patient not identified as an unhealthy alcohol user PQRS Narrative: Smoking Status Former smoker Narcotic Agreement Date Signed 02/24/20 Blood Pressure 172/99 Pain Intensity [Right Back] 9 Scale Used Numeric (1 - 10) Hx Alcohol Use (MH) No Home Medications: Ambulatory Orders Butalb/Acetaminophen/Caffeine [Fioricet 50-325-40 mg Tablet] 1 tab PO BID PRN 04/11/14 INSULIN LISPRO (humaLOG) [humaLOG] See Protocol SQ AC-TID PRN 04/14/14 Budesonide-Formot 160-4.5 Mcg [Symbicort 160-4.5 Mcg Inhaler] 2 puff INHALATION RT-BID PRN 10/25/15 lisinopriL [Zestril] 40 mg PO HS 04/04/16 Insulin Glargine [Lantus] 80 unit SQ HS 05/02/16 Pantoprazole [Protonix] 40 mg PO AC-BID #60 tablet. 12/19/16 Acetaminophen [Tylenol Extra Strength] 1,000 mg PO Q2H PRN 02/23/20 Cyclobenzaprine [Flexeril] 10 mg PO BID #60 tab 06/15/20 Morphine Sulfate ER [Ms Contin] 30 mg PO BID 30 Days #60 tab 06/15/20 Morphine Sulfate ER [Ms Contin] 30 mg PO Q12H 30 Days #60 tab 06/15/20 Controlled Substance Measures - Controlled Substance Measures Is patient prescribed a controlled substance at discharge?: Yes When asked, does pt state using other controlled substances?: No If prescribed controlled substance>3 days was MAPS reviewed?: Yes If Rx opioid, was Start Talking consent form obtained?: Yes If opioid is for acute pain is fill amount 7 days or less?: No Was information provided regarding opioid addiction?: Yes
== END | disposition home or self-care (01) ==
LOC: PNWHC3 10:34
PROVIDERS: ATTEND Hospitalist
DX: M47.26 Other spondylosis with radiculopathy, lumbar region (principal); F11.20 Opioid dependence, uncomplicated; Z79.899 Other long term (current) drug therapy; Z79.4 Long term (current) use of insulin
CPT/HCPCS: 99211

== ENCOUNTER → 2020-08-10 | Outpatient (CLI) | payer MEDICARE, OTHER ==
[2020-08-10 08:18] VITALS: BP 179/103; PULSE 74; RESP 18; TEMP 98.1
--- NOTE | 2020-08-11 16:43 | P.PN ---
Subjective Progress Note Date: 08/10/20 This is Follow up visit for this 64-year-old female with severe low back pain, status post bilateral SI joint fusion done at outside [facility] , patient also she had lumbar fusion surgery done a few years ago, she continued to have severe low back pain, and she continued to use MS Contin 30 mg twice a day and Flexeril 10 mg twice a day she denies any side effects of the medication, she denies any excessive drowsiness or sleepiness and she put the current medication is helping her to improve her pain and improve quality of life, she denies any suicidal the ideations ,she denies any motor or sensory deficits she denies any fever or night sweats, intensity of the pain 4/10 with the pain medications ,increased to 8/ 10 with any activity Objective - Vital Signs Vital signs: Vital Signs Temp 98.1 F 08/10/20 08:10 Pulse 74 08/10/20 08:10 Resp 18 08/10/20 08:10 BP 179/103 08/10/20 08:10 Pulse Ox 95 08/10/20 08:10 Intake & Output 08/09/20 08/10/20 08/10/20 18:59 06:59 18:59 Weight 102.058 kg - Exam -Constitutiona : Cooperative , not in acute distress . -HEENT : nech : supple , no Lymphadenopathy , normal thyroid size . : eyes : no ptosis , no icterus, no photophobia . - neurologic : Cranial nerve II to XII intact , no focal neurological deffecit . -psychatric : alert , oriented X 3 , appropriate affect , intact judgment and insight . -Lymphatic : no Lymphadenopathy . - musculoskeltal : Lumber spine moter stegnth lower extremities ,thigh and legs 5/5 Right side , 5/5 Left side deep tendon reflexes : normal Knee Jerk , normal ankle Jerk lumber facet Loading Test =positive Right , positive Left . Sever tenderness over the Sacroiliac joint on the Right , Gaenslen test= positive bilaterally. Seated flexion test= positive bilateral , Assessment and Plan Plan: Assessment and plan= I last sacroiliitis status post right SI joint fusion. Failed back surgery syndrome lumbar area. chronic and current use of high-risk medication (opioids) Patient denies any side effects of the current pain medication and the current treatment/medication helping the patient to do activity of daily living , Diagnoses, prognosis, treatment options, including but not limited to physical therapy, medication management, interventional therapies, and surgery, were discussed with the patient All the questions answered Patient was counseled on importance of diet, exercise and weight loss. The narcotic consent has been signed and patient agreed and understood the side effects and complications of opioid treatment Patient was counseled not to drive or operate heavy equipment while using narcotic medication, and advised not to use alcohol or any Illicit drugs while using the narcotics. understanding that lack of compliance with any of the above instructions, will likely to cause discharge from, the pain service, not to renew her narcotic prescriptions Medication managements= patient will be given prescription refills for MS Contin 30 mg every 12 hours dispense 60 with 1 refill, Flexeril 10 mg bid dispense 60 with 1 refill MAPS reviewed and it was appropriate. . Follow-up: In 2 months for medication management Urine drug screen done in February 2020 Time with Patient: Less than 30 PQRS Measure Charge Sheet Measure #130: Documentation of Current Meds in Medical Chart: Patient's medications documented in chart Measure #226: Tobacco Use: Screen & Cessation Intervention: Pt not a tobacco user Measure #111: Pneumonia Vaccination: Pneumococcal vaccine administered or previously received Measure #47: Advance Care Plan: Advance care planning discussed & documented, pt chose/unable to give Measure #412: Opioid Treatment Agreement: Documented signed opioid trtmnt agreemnt min once during opioid trtmnt Measure #408: Opioid Therapy Follow-up Evaluation: Patient had f/u eval minimum every 3 months during opioid therapy Measure #317: Preventitive Care & Scrn High Bld Press & F/U: Pre-hypertensive or hypertensive BP documented, pt will f/u with PCP Measure #128: Body Mass Index (BMI) Screening & Follow-up: BMI documented ABOVE normal parameters - f/u documented Measure #131: Pain Assessment & Follow-up: Pain positive & plan documented, Follow-up scheduled Measure #431: Unhealthy Alcohol Use Preventative Care & Scrn: Patient not identified as an unhealthy alcohol user PQRS Narrative: Time with Patient: Less than 30
== END | disposition home or self-care (01) ==
LOC: PNWHC3 07:19
PROVIDERS: ATTEND Specialist
DX: M96.1 Postlaminectomy syndrome, not elsewhere classified (principal); Z98.1 Arthrodesis status; Z79.891 Long term (current) use of opiate analgesic; Z79.899 Other long term (current) drug therapy
CPT/HCPCS: 99211

== ENCOUNTER → 2020-10-05 | Outpatient (CLI) | payer MEDICARE, OTHER ==
[2020-10-05 08:14] VITALS: BP 205/116; PULSE 87; RESP 18; TEMP 98.2
--- NOTE | 2020-10-05 08:38 | P.PN ---
Subjective Progress Note Date: 10/05/20 This is Follow up visit for this 65-year-old female with severe low back pain, status post bilateral SI joint fusion done at outside [facility] , patient also she had lumbar fusion surgery done a few years ago, she continued to have severe low back pain, and she continued to use MS Contin 30 mg twice a day and Flexeril 10 mg twice a day she denies any side effects of the medication, she denies any excessive drowsiness or sleepiness and she put the current medication is helping her to improve her pain and improve quality of life, she denies any suicidal the ideations ,she denies any motor or sensory deficits she denies any fever or night sweats, intensity of the pain 4/10 with the pain medications ,increased to 8/ 10 with any activity, she is here today for medication refill During the evaluation showed the patient had significantly elevated blood pressure is 205/160 - Exam -Constitutiona : Cooperative , not in acute distress . -HEENT : nech : supple , no Lymphadenopathy , normal thyroid size . : eyes : no ptosis , no icterus, no photophobia . - neurologic : Cranial nerve II to XII intact , no focal neurological deffecit . -psychatric : alert , oriented X 3 , appropriate affect , intact judgment and insight . -Lymphatic : no Lymphadenopathy . - musculoskeltal : Lumber spine moter stegnth lower extremities ,thigh and legs 5/5 Right side , 5/5 Left side deep tendon reflexes : normal Knee Jerk , normal ankle Jerk lumber facet Loading Test =positive Right , positive Left . Sever tenderness over the Sacroiliac joint on the Right , Gaenslen test= positive bilaterally. Seated flexion test= positive bilateral , Assessment and plan= sacroiliitis status post right SI joint fusion. Failed back surgery syndrome lumbar area. Hypertension emergency patient discussed with the patient the need to see her primary care today JACOB and she has to treat her blood pressure immediately Patient will see her primary care today after she leaves the offic (also di scussed the importance of eating the blood pressure with her and he is aware that she needs to go to Her primary care today ) chronic and current use of high-risk medication (opioids) Patient denies any side effects of the current pain medication and the current treatment/medication helping the patient to do activity of daily living , Diagnoses, prognosis, treatment options, including but not limited to physical therapy, medication management, interventional therapies, and surgery, were discussed with the patient All the questions answered Patient was counseled on importance of diet, exercise and weight loss. The narcotic consent has been signed and patient agreed and understood the side effects and complications of opioid treatment Patient was counseled not to drive or operate heavy equipment while using narcotic medication, and advised not to use alcohol or any Illicit drugs while using the narcotics. understanding that lack of compliance with any of the above instructions, will likely to cause discharge from, the pain service, not to renew her narcotic prescriptions Medication managements= patient will be given prescription refills for MS Contin 30 mg every 12 hours dispense 60 with 1 refill, Flexeril 10 mg bid dispense 60 with 1 refill MAPS reviewed and it was appropriate. . Follow-up: In 2 months for medication management Urine drug screen will be done next visit Time with Patient: Less than 30 PQRS Measure Charge Sheet Measure #130: Documentation of Current Meds in Medical Chart: Patient's medications documented in chart Measure #226: Tobacco Use: Screen & Cessation Intervention: Pt not a tobacco user Measure #111: Pneumonia Vaccination: Pneumococcal vaccine administered or previously received Measure #47: Advance Care Plan: Advance care planning discussed & documented, pt chose/unable to give Measure #412: Opioid Treatment Agreement: Documented signed opioid trtmnt agreemnt min once during opioid trtmnt Measure #408: Opioid Therapy Follow-up Evaluation: Patient had f/u eval minimum every 3 months during opioid therapy Measure #317: Preventitive Care & Scrn High Bld Press & F/U: Pre-hypertensive or hypertensive BP documented, pt will f/u with PCP Measure #128: Body Mass Index (BMI) Screening & Follow-up: BMI documented ABOVE normal parameters - f/u documented Measure #131: Pain Assessment & Follow-up: Pain positive & plan documented, Follow-up scheduled Measure #431: Unhealthy Alcohol Use Preventative Care & Scrn: Patient not identified as an unhealthy alcohol user PQRS Narrative: Time with Patient: Less than 30 Objective - Vital Signs Vital signs: Vital Signs Temp 98.2 F 10/05/20 07:51 Pulse 87 10/05/20 07:51 Resp 18 10/05/20 07:51 BP 205/116 10/05/20 07:51 Pulse Ox 98 10/05/20 07:51
== END | disposition home or self-care (01) ==
LOC: PNWHC3 07:41
PROVIDERS: ATTEND Specialist
DX: M46.1 Sacroiliitis, not elsewhere classified (principal); M96.1 Postlaminectomy syndrome, not elsewhere classified; Z79.899 Other long term (current) drug therapy
CPT/HCPCS: 99211

== ENCOUNTER → 2020-10-05 | Outpatient (CLI) | payer MEDICARE, OTHER ==
[2020-10-05 20:01] LABS: African American GFR (CKD) 42.2 (60.0-200.0); Albumin 4.3 g/dL (3.80-4.90); Albumin/Globulin Ratio 1.65 (1.60-3.17); Anion Gap 8.9 mmol/L (4.00-12.00); Calcium 9.1 mg/dL (8.7-10.3); Carbon Dioxide 26.1 mmol/L (21.6-31.8); Chol/HDL Ratio 3.91; Globulin 2.6 g/dL (1.6-3.3); LDL Cholesterol,Calculated 117.8 mg/dL (0.0-131.0); Non-African American GFR(CKD) 36.4 (60.0-200.0); Potassium 5.7 mmol/L (3.5-5.5); Total Bilirubin 0.2 mg/dL (0.3-1.2); Total Protein 6.9 g/dL (6.2-8.2); VLDL Calculation 36.2 mg/dL (5.00-40.00)
[2020-10-05 22:14] LABS: Hemoglobin A1C 8.9 % (4.0-6.0)
== END | disposition home or self-care (01) ==
LOC: LABWHC1 08:45
PROVIDERS: ATTEND Internal Medicine Endocrinology, Diabetes & Metabolism
DX: E11.65 Type 2 diabetes mellitus with hyperglycemia (principal)
CPT/HCPCS: 36415; 80053; 80061; 83036; 84443

== ENCOUNTER → 2020-11-30 | Outpatient (CLI) | payer MEDICARE, OTHER ==
[2020-11-30 08:12] VITALS: BP 206/105; PULSE 81; RESP 18; TEMP 98.3
--- NOTE | 2020-11-30 08:15 | P.PN ---
Subjective Progress Note Date: 11/30/20 This is Follow up visit for this 65-year-old female with severe low back pain, status post bilateral sacroiliac joint fusion, done at [facility] , patient also she had lumbar fusion surgery done a few years ago, she continued to have severe low back pain, and she continued to use MS Contin 30 mg twice a day and Flexeril 10 mg twice a day ,she denies any side effects of the medication, she denies any excessive drowsiness or sleepiness ,and she reportes that the current medication is helping her to improve her pain and improve quality of life, she denies any suicidal the ideations ,she denies any motor or sensory deficits ,she denies any fever or night sweats, intensity of the pain 4/10 with the pain medications ,increased to 8/ 10 with any activity, she is here today for medication refill During the evaluation showed the patient had significantly elevated blood pressure is 205/105 (she reported that she is using her blood pressure medication as prescribed by her primary care, and she will see her primary care JACOB ) - Exam -Constitutiona : Cooperative , not in acute distress . -HEENT : nech : supple , no Lymphadenopathy , normal thyroid size . : eyes : no ptosis , no icterus, no photophobia . - neurologic : Cranial nerve II to XII intact , no focal neurological deffecit . -psychatric : alert , oriented X 3 , appropriate affect , intact judgment and insight . -Lymphatic : no Lymphadenopathy . - musculoskeltal : Lumber spine moter stegnth lower extremities ,thigh and legs 5/5 Right side , 5/5 Left side deep tendon reflexes : normal Knee Jerk , normal ankle Jerk lumber facet Loading Test =positive Right , positive Left . Sever tenderness over the Sacroiliac joint on the Right , Gaenslen test= positive bilaterally. Seated flexion test= positive bilateral , Assessment and plan= sacroiliitis status post right SI joint fusion. Failed back surgery syndrome lumbar area. Hypertension emergency patient discussed with the patient the need to see her primary care today JACOB and she has to treat her blood pressure immediately Patient will see her primary care today after she leaves the offic (also discussed the importance of eating the blood pressure with her and he is aware that she needs to go to Her primary care today ) chronic and current use of high-risk medication (opioids) Patient denies any side effects of the current pain medication and the current treatment/medication helping the patient to do activity of daily living , Diagnoses, prognosis, treatment options, including but not limited to physical therapy, medication management, interventional therapies, and surgery, were discussed with the patient All the questions answered Patient was counseled on importance of diet, exercise and weight loss. The narcotic consent has been signed and patient agreed and understood the side effects and complications of opioid treatment Patient was counseled not to drive or operate heavy equipment while using narcotic medication, and advised not to use alcohol or any Illicit drugs while using the narcotics. understanding that lack of compliance with any of the above instructions, will likely to cause discharge from, the pain service, not to renew her narcotic prescriptions Medication managements= patient will be given prescription refills for MS Contin 30 mg every 12 hours dispense 60 with 1 refill, Flexeril 10 mg bid dispense 60 with 1 refill MAPS reviewed and it was appropriate. . Follow-up: In 2 months for medication management Urine drug screen done today Time with Patient: Less than 30 PQRS Measure Charge Sheet Measure #130: Documentation of Current Meds in Medical Chart: Patient's medications documented in chart Measure #226: Tobacco Use: Screen & Cessation Intervention: Pt not a tobacco user Measure #111: Pneumonia Vaccination: Pneumococcal vaccine administered or previously received Measure #47: Advance Care Plan: Advance care planning discussed & documented, pt chose/unable to give Measure #412: Opioid Treatment Agreement: Documented signed opioid trtmnt agreemnt min once during opioid trtmnt Measure #408: Opioid Therapy Follow-up Evaluation: Patient had f/u eval minimum every 3 months during opioid therapy Measure #317: Preventitive Care & Scrn High Bld Press & F/U: Pre-hypertensive or hypertensive BP documented, pt will f/u with PCP Measure #128: Body Mass Index (BMI) Screening & Follow-up: BMI documented ABOVE normal parameters - f/u documented Measure #131: Pain Assessment & Follow-up: Pain positive & plan documented, Follow-up scheduled Measure #431: Unhealthy Alcohol Use Preventative Care & Scrn: Patient not identified as an unhealthy alcohol user PQRS Narrative:
== END ==
LOC: PNWHC3 07:15
PROVIDERS: ATTEND Specialist
DX: M96.1 Postlaminectomy syndrome, not elsewhere classified (principal); M46.1 Sacroiliitis, not elsewhere classified; Z79.891 Long term (current) use of opiate analgesic; I16.1 Hypertensive emergency
CPT/HCPCS: 80307; G0482; G0463; 99212

== ENCOUNTER → 2021-01-25 | Outpatient (CLI) | payer MEDICARE, OTHER ==
[2021-01-25 08:13] VITALS: BP 191/77; PULSE 73; RESP 18; TEMP 98
--- NOTE | 2021-01-25 08:23 | P.PN ---
Subjective Progress Note Date: 01/25/21 This is Follow up visit for this 65-year-old female with severe low back pain, status post bilateral sacroiliac joint fusion, done at [facility] , patient also she had lumbar fusion surgery done a few years ago, she continued to have severe low back pain, and she continued to use MS Contin 30 mg twice a day and Flexeril 10 mg twice a day ,she denies any side effects of the medication, she denies any excessive drowsiness or sleepiness ,and she reportes that the current medication is helping her to improve her pain and improve quality of life, she denies any suicidal the ideations ,she denies any motor or sensory deficits ,she denies any fever or night sweats, intensity of the pain 4/10 with the pain medications ,increased to 8/ 10 with any activity, she is here today for medication refill, patient complaining of increased muscle spasm in the lumbar area itches increased usually at nighttime During the evaluation showed the patient had significantly elevated blood pressure is 190/77 (she reported that she is using her blood pressure medication as prescribed by her primary care, and she will see her primary care JACOB ) - Exam -Constitutiona : Cooperative , not in acute distress . -HEENT : nech : supple , no Lymphadenopathy , normal thyroid size . : eyes : no ptosis , no icterus, no photophobia . - neurologic : Cranial nerve II to XII intact , no focal neurological deffecit . -psychatric : alert , oriented X 3 , appropriate affect , intact judgment and insight . -Lymphatic : no Lymphadenopathy . - musculoskeltal : Lumber spine moter stegnth lower extremities ,thigh and legs 5/5 Right side , 5/5 Left side deep tendon reflexes : normal Knee Jerk , normal ankle Jerk lumber facet Loading Test =positive Right , positive Left . Sever tenderness over the Sacroiliac joint on the Right , Gaenslen test= positive bilaterally. Seated flexion test= positive bilateral , Assessment and plan= sacroiliitis status post right SI joint fusion. Failed back surgery syndrome lumbar area. Hypertension emergency patient discussed with the patient the need to see her primary care today JACOB and she has to treat her blood pressure immediately Patient will see her primary care today after she leaves the offic (also discussed the importance of eating the blood pressure with her and he is aware that she needs to go to Her primary care today ) chronic and current use of high-risk medication (opioids) Patient denies any side effects of the current pain medication and the current treatment/medication helping the patient to do activity of daily living , Diagnoses, prognosis, treatment options, including but not limited to physical therapy, medication management, interventional therapies, and surgery, were discussed with the patient All the questions answered Patient was counseled on importance of diet, exercise and weight loss. The narcotic consent has been signed and patient agreed and understood the side effects and complications of opioid treatment Patient was counseled not to drive or operate heavy equipment while using narcotic medication, and advised not to use alcohol or any Illicit drugs while using the narcotics. understanding that lack of compliance with any of the above instructions, will likely to cause discharge from, the pain service, not to renew her narcotic prescriptions Medication managements= patient will be given prescription refills for MS Contin 30 mg every 12 hours dispense 60 with 1 refill, Flexeril 10 mg bid dispense 90 with 1 refill (Flexeril 1 tablet every morning and 2 tablets daily at bedtime ) MAPS reviewed and it was appropriate. . Follow-up: In 2 months for medication management Urine drug screen reviewed and it was op Patient instructed to go and see her primary care regarding her hypertension Time with Patient: Less than 30 PQRS Measure Charge Sheet Measure #130: Documentation of Current Meds in Medical Chart: Patient's medications documented in chart Measure #226: Tobacco Use: Screen & Cessation Intervention: Pt not a tobacco user Measure #111: Pneumonia Vaccination: Pneumococcal vaccine administered or previously received Measure #47: Advance Care Plan: Advance care planning discussed & documented, pt chose/unable to give Measure #412: Opioid Treatment Agreement: Documented signed opioid trtmnt agreemnt min once during opioid trtmnt Measure #408: Opioid Therapy Follow-up Evaluation: Patient had f/u eval minimum every 3 months during opioid therapy Measure #317: Preventitive Care & Scrn High Bld Press & F/U: Pre-hypertensive or hypertensive BP documented, pt will f/u with PCP Measure #128: Body Mass Index (BMI) Screening & Follow-up: BMI documented ABOVE normal parameters - f/u documented Measure #131: Pain Assessment & Follow-up: Pain positive & plan documented, Follow-up scheduled Measure #431: Unhealthy Alcohol Use Preventative Care & Scrn: Patient not identified as an unhealthy alcohol user PQRS Narrative: Objective - Vital Signs Vital signs: Vital Signs Temp 98.0 F 01/25/21 08:08 Pulse 73 01/25/21 08:08 Resp 18 01/25/21 08:08 BP 191/77 01/25/21 08:08 Pulse Ox 95 01/25/21 08:08
== END ==
LOC: PNWHC3 07:19
PROVIDERS: ATTEND Specialist
DX: M46.1 Sacroiliitis, not elsewhere classified (principal); M96.1 Postlaminectomy syndrome, not elsewhere classified; Z79.891 Long term (current) use of opiate analgesic; I10 Essential (primary) hypertension; Z88.6 Allergy status to analgesic agent; Z87.891 Personal history of nicotine dependence
CPT/HCPCS: 99211

== ENCOUNTER 2021-03-21 15:32 | Emergency (ER) | payer MEDICARE, OTHER ==
[2021-03-21 16:04] VITALS: RESP 18
[2021-03-21] MEDS ORDERED: HYDROcodone/APAP 5-325MG 1 EACH TAB PO STA (16:14)
--- NOTE | 2021-03-21 16:17 | ED ---
Neck Injury/Pain HPI - General Chief Complaint: Neck Pain/Injury Stated Complaint: shoulder/neck pain Time Seen by Provider: 03/21/21 16:05 Mode of arrival: wheelchair Limitations: no limitations - History of Present Illness Initial Comments: 65-year-old female with history of chronic back pain, cervical fusion about 1 decade ago is presenting to the emergency department with a chief complaint of neck pain. Patient reports this started about 3 days ago after she woke up in the morning. States the pain is mostly located in the right side of the neck and is radiating down the trapezius to the right shoulder and a little bit down the arm. States she is feeling paresthesias in her right extremity but denies any associated weakness of the hand. Denies complete numbness. Denies any changes in the skin or temperature of the arm. Denies any trauma to the neck. Denies any neck stiffness fevers or chills. States she has not seen a processing specialist in quite sometime. - Related Data Home Medications Medication Instructions Recorded Confirmed Butalb/Acetaminophen/Caffeine 1 tab PO BID PRN 04/11/14 03/20/21 [Fioricet 50-325-40 mg Tablet] INSULIN LISPRO (humaLOG) [humaLOG] See Protocol SQ AC-TID PRN 04/14/14 03/20/21 Budesonide-Formot 160-4.5 Mcg 2 puff INHALATION RT-BID PRN 10/25/15 03/20/21 [Symbicort 160-4.5 Mcg Inhaler] lisinopriL [Zestril] 40 mg PO HS 04/04/16 03/20/21 Insulin Glargine [Lantus] 80 unit SQ HS 05/02/16 03/20/21 Acetaminophen [Tylenol Extra 1,000 mg PO DIRECTED PRN 02/23/20 03/20/21 Strength] Previous Rx's Medication Instructions Recorded Pantoprazole [Protonix] 40 mg PO AC-BID #60 tablet. 12/19/16 Cyclobenzaprine [Flexeril] 10 mg PO TID #90 tab 01/25/21 Morphine Sulfate ER [Ms Contin] 30 mg PO Q12HR 30 Days #60 tab 01/25/21 Allergies Allergy/AdvReac Type Severity Reaction Status Date / Time gabapentin AdvReac Confusion Verified 03/21/21 16:04 ibuprofen [From Motrin] AdvReac Abdominal Verified 03/21/21 16:04 Pain and vomiting pregabalin [From Lyrica] AdvReac Confusion Verified 03/21/21 16:04 Review of Systems ROS Statement: Those systems with pertinent positive or pertinent negative responses have been documented in the HPI. ROS Other: All systems not noted in ROS Statement are negative. Past Medical History Past Medical History: Asthma, COPD, Diabetes Mellitus, GERD/Reflux, Hyperlipidemia, Hypertension, Musculoskeletal Disorder Additional Past Medical History / Comment(s): Migraine headaches. hx kidney stone, Chronic back pain, NT BLE. History of Any Multi-Drug Resistant Organisms: MRSA Date of last positivie culture/infection: 2011 MDRO Source:: UNK Past Surgical History: Appendectomy, Back Surgery, Cholecystectomy, Joint Replacement, Orthopedic Surgery Additional Past Surgical History / Comment(s): Fusion w/ kane; also back surgery 04/21/2019. Left Shoulder Replacement, Right knee replacement, plate in right wrist, left thumb joint repair, Right CTR, Right shoulder arthroscopy. micheal cataracts, LARYNGOSCOPY, November 2016 Cervical Plate, PAIN CLINIC PROCEDURES Past Anesthesia/Blood Transfusion Reactions: No Reported Reaction Past Psychological History: No Psychological Hx Reported Smoking Status: Former smoker - Past Family History Brother(s) Family Medical History: Cancer, Myocardial Infarction ([place]) Father Family Medical History: Cancer Additional Family Medical History / Comment(s): throat, colon, liver, and brain cancer. Mother Family Medical History: Myocardial Infarction ([place]) Additional Family Medical History / Comment(s): at 54 of [place]. General Exam Limitations: no limitations General appearance: alert, in no apparent distress, obese Head exam: Present: atraumatic, normocephalic, normal inspection Eye exam: Present: normal appearance, PERRL, EOMI Pupils: Present: normal accommodation ENT exam: Present: normal exam, normal oropharynx, mucous membranes moist Neck exam: Present: normal inspection, full ROM (Slight limited range of motion with interpretation). Absent: tenderness (Right paraspinal cervical tenderness. Tenderness along the right trapezius to the right shoulder), lymphadenopathy Respiratory exam: Present: normal lung sounds bilaterally. Absent: respiratory distress, wheezes, rales, rhonchi, stridor Cardiovascular Exam: Present: regular rate, normal rhythm, normal heart sounds Extremities exam: Present: normal inspection, tenderness (Tenderness along the right trapezius), normal capillary refill, other (Sensation intact in the right upper extremity. Palpable ulnar and radial pulse of the laterally.). Absent: full ROM (Laboratory range of motion and right shoulder due to pain), pedal edema, joint swelling, calf tenderness Back exam: Present: normal inspection, full ROM. Absent: tenderness Neurological exam: Present: alert, oriented X3 Psychiatric exam: Present: normal affect, normal mood Skin exam: Present: warm, dry, intact, normal color Course Vital Signs 03/21/21 15:59 Temperature 98 F Pulse Rate 75 Respiratory 18 Rate Blood Pressure 159/87 O2 Sat by Pulse 98 Oximetry Medical Decision Making - Medical Decision Making 65-year-old female with history of chronic back pain, cervical fusion about 1 decade ago is presenting to the emergency department with a chief complaint of neck pain. On physical examination, right paraspinal cervical tenderness also extends to the trapezius area and the right shoulder. She is otherwise neurovascularly intact in her right upper extremity. CT of the cervical spine reveals chronic changes but nothing acute. No concern for meningitis at this time. She has no neck stiffness and is still able to rotate the neck in all directions. Patient was given analgesia. Patient likely experienced a cervical radiculopathy. No other focal neural deficits. She will follow-up with a spine surgeon. Return parameters were thoroughly discussed patient was ascending agreeable. Case discussed with Dr. Fay. Disposition Clinical Impression: Cervical radiculopathy Disposition: HOME SELF-CARE Condition: Stable Instructions (If sedation given, give patient instructions): Cervical Sprain (ED) Additional Instructions: Follow with an engagement specialist. Return to emergency department if symptoms worsen. Is patient prescribed a controlled substance at d/c from ED?: No Referrals: Scarlet Dior MD [Primary Care Provider] - 1-2 days Abel Rodriguez DO [Doctor of Osteopathic Medicine] - 1-2 days Time of Disposition: 17:47
[2021-03-21] MEDS ORDERED: HYDROmorphone 1 MG/ML 1 ML SYRINGE IM STA (17:27)
--- NOTE | 2021-03-21 17:31 | CT ---
EXAMINATION TYPE: CT cervical spine wo con DATE OF EXAM: 03/21/2021 COMPARISON: December 18, 2016 HISTORY: Right sided neck and shoulder pain x [address] DLP: 954.3 mGycm Automated exposure control for dose reduction was used. Images obtained from the skull base to T1 vertebra with no contrast. The cervical vertebra have normal alignment. There is anterior fusion surgery from C5 to C7. The post erior elements are intact. There is multilevel hypertrophic facet arthropathy. Prevertebral soft tiss ues appear intact. There is no compression fracture. IMPRESSION: Multilevel anterior fusion surgery. No fracture seen. Mild facet arthropathy. No adverse change salas red to old exam.
[2021-03-21 18:28] VITALS: BP 185/98; PULSE 84; TEMP 98.3
[2021-03-21] MEDS ORDERED: ACET/COD 300 MG/30 MG STARTER PACK 6 TAB BTL PO STA (18:47)
== END 2021-03-21 18:51 | disposition home or self-care (01) ==
LOC: EC 15:32
DX: M54.12 Radiculopathy, cervical region (principal); J45.909 Unspecified asthma, uncomplicated; E11.9 Type 2 diabetes mellitus without complications; K21.9 Gastro-esophageal reflux disease without esophagitis; E78.5 Hyperlipidemia, unspecified; I10 Essential (primary) hypertension; Z87.442 Personal history of urinary calculi; Z90.49 Acquired absence of other specified parts of digestive tract; Z90.89 Acquired absence of other organs; Z87.891 Personal history of nicotine dependence
CPT/HCPCS: 72125; 99284; 96372; J1170

== ENCOUNTER → 2021-03-22 | Outpatient (CLI) | payer MEDICARE, OTHER ==
[2021-03-22 07:55] VITALS: BP 193/101; PULSE 84; RESP 18
--- NOTE | 2021-03-22 08:01 | P.PAINPG ---
Subjective Progress Note Date: 03/22/21 This is Follow up visit for this 65-year-old female with severe low back pain, status post bilateral sacroiliac joint fusion, done at [facility] , patient also she had lumbar fusion surgery done a few years ago, she continued to have severe low back pain, and she continued to use MS Contin 30 mg twice a day and Flexeril 10 mg twice a day. Most recently she reported to the ER with Significant right shoulder and neck pain. She also feels numbness and tingling in her right hand. It is significant and she is quite tearful. Currently greater than [address] spine did not show anything new or emergent. - Exam -Constitutiona : Cooperative , not in acute distress . -HEENT : nech : supple , no Lymphadenopathy , normal thyroid size . : eyes : no ptosis , no icterus, no aashish tophobia . - neurologic : Cranial nerve II to XII intact , no focal neurological deffecit . -psychatric : alert , oriented X 3 , appropriate affect , intact judgment and insight . -Lymphatic : no Lymphadenopathy . - musculoskeltal : Lumber spine moter stegnth lower extremities ,thigh and legs 5/5 Right side , 5/5 Left side deep tendon reflexes : normal Knee Jerk , normal ankle Jerk lumber facet Loading Test =positive Right , positive Left . Sever tenderness over the Sacroiliac joint on the Right , Gaenslen test= positive bilaterally. Seated flexion test= positive bilateral , Cervical spine: Significant tenderness over C6-C7 on right side with radiation into the hand, decreased strength in right upper extremity, tough to evaluate as patient has arm stuck in flexion at 90 degrees due to the pain. NO peng sign. Assessment and plan= sacroiliitis status post right SI joint fusion. Failed back surgery syndrome lumbar area. Hypertension emergency patient discussed with the patient the need to see her primary care today JACOB and she has to treat her blood pressure immediately Patient will see her primary care today after she leaves the offic (also discussed the importance of eating the blood pressure with her and he is aware that she needs to go to Her primary care today ) chronic and current use of high-risk medication (opioids) Patient denies any side effects of the current pain medication and the current treatment/medication helping the patient to do activity of daily living , Diagnoses, prognosis, treatment options, including but not limited to physical therapy, medication management, interventional therapies, and surgery, were discussed with the patient All the questions answered Patient was counseled on importance of diet, exercise and weight loss. The narcotic consent has been signed and patient agreed and understood the side effects and complications of opioid treatment Patient was counseled not to drive or operate heavy equipment while using narcotic medication, and advised not to use alcohol or any Illicit drugs while using the narcotics. understanding that lack of compliance with any of the above instructions, will likely to cause discharge from, the pain service, not to renew her narcotic prescriptions Medication managements= patient will be given prescription refills for MS Contin 30 mg every 12 hours dispense 60 with 1 refill, Flexeril 10 mg bid dispense 90 with 1 refill (Flexeril 1 tablet every morning and 2 tablets daily at bedtime ). I also added MS IR 15 mg QD prn due to her new pain, said this will be a short term prescription and only for her new pain.. Also gave referral to Dr Abbott as patient has hx of cervical fusion and she'd like a surgeon to evaluate. Schedule for R cervical paraspinal, rhomboid, lat dorsi TP injections. Advised patient to go to the ER if her pain is so significant to the point where she is unable to function. MAPS reviewed and it was appropriate. . Follow-up: In 2 months for medication management I have spent 34 minutes on review of the records, review of the imaging available, [id number] interaction with the patient, medication management, follow-up care coordination and record creation. Objective - Vital Signs Vital signs: Intake & Output 03/20/21 03/21/21 03/21/21 18:59 06:59 18:59 Weight 99.79 kg PQRS Measure Charge Sheet PQRS Narrative: Smoking Status Former smoker Narcotic Agreement Date Signed 02/24/20 Pain Intensity [Lower Back] 7 Hx Alcohol Use (MH) No Home Medications: Ambulatory Orders Butalb/Acetaminophen/Caffeine [Fioricet 50-325-40 mg Tablet] 1 tab PO BID PRN 04/11/14 INSULIN LISPRO (humaLOG) [humaLOG] See Protocol SQ AC-TID PRN 04/14/14 Budesonide-Formot 160-4.5 Mcg [Symbicort 160-4.5 Mcg Inhaler] 2 puff INHALATION RT-BID PRN 10/25/15 lisinopriL [Zestril] 40 mg PO HS 04/04/16 Insulin Glargine [Lantus] 80 unit SQ HS 05/02/16 Pantoprazole [Protonix] 40 mg PO AC-BID #60 tablet. 12/19/16 Acetaminophen [Tylenol Extra Strength] 1,000 mg PO DIRECTED PRN 02/23/20 Cyclobenzaprine [Flexeril] 10 mg PO TID #90 tab 03/22/21 Morphine Sulfate ER [Ms Contin] 30 mg PO Q12HR 30 Days #60 tab 03/22/21 Morphine Sulfate ER [Ms Contin] 30 mg PO Q12HR 30 Days #60 tab 03/22/21 Morphine Sulfate Ir [MSIR] 15 mg PO DAILY PRN 30 Days #30 tab 03/22/21 Controlled Substance Measures - Controlled Substance Measures Is patient prescribed a controlled substance at discharge?: Yes When asked, does pt state using other controlled substances?: No If prescribed controlled substance>3 days was MAPS reviewed?: Yes If Rx opioid, was Start Talking consent form obtained?: Yes If opioid is for acute pain is fill amount 7 days or less?: No Was information provided regarding opioid addiction?: No
== END ==
LOC: PNWHC3 07:30
PROVIDERS: ATTEND Anesthesiology
DX: M46.1 Sacroiliitis, not elsewhere classified (principal); M96.1 Postlaminectomy syndrome, not elsewhere classified; I16.1 Hypertensive emergency; Z79.891 Long term (current) use of opiate analgesic; F17.200 Nicotine dependence, unspecified, uncomplicated; Z88.6 Allergy status to analgesic agent; Z88.8 Allergy status to other drugs, medicaments and biological substances
CPT/HCPCS: 99211

== ENCOUNTER → 2021-05-17 | Outpatient (CLI) | payer MEDICARE, OTHER ==
[2021-05-17 07:50] VITALS: BP 190/119; PULSE 85; RESP 20; TEMP 97.9
--- NOTE | 2021-05-17 16:16 | P.PAINPG ---
Subjective Progress Note Date: 05/17/21 Principal diagnosis: neck pain, and lumbar back pain Ms. Valentino is a 65 -year-old pleasant female came to the [facility] pain clinic for follow-up visit for prescription refill. patient had a history of SI joint fusion, and lumbar back surgery. Patient has ongoing pain for many years. current pain medications helping her to tolerable level of pain so that she can able to perform her activities of daily living. She was given Klonopin by her primary care physician for the procedure 1 time. In November 2020. Since then she had no benzodiazepines as per patient. Patient describes pain is aching, throbbing, constant type of pain. Pain is radiating to lower extremity. Patient rated pain levels are 7-8out of 10 in severity. With the help of medications pain levels are5-out of 10 in severity. Activities making pain worse. Medications, resting helping in relieving patient's pain. Patient pain some days better than others. Overall activities decreased secondary to pain. Because of the pain sometimes patient is feeling lack of sleep, interest, and energy. Denied any bowel or bladder problems at this time. denied any side effects with the medications. Patient denied any suicidal ideas/homicidal ideas at this time. Patient denied any red flag symptoms related to pain. Objective - Vital Signs Vital signs: Vital Signs Temp 97.9 F 05/17/21 07:43 Pulse 85 05/17/21 07:43 Resp 20 05/17/21 07:43 BP 190/119 05/17/21 07:43 Pulse Ox 98 05/17/21 07:43 - Exam General: Well-developed, well-nourished, no acute distress HEENT: Normocephalic, and atraumatic Neck: Supple, no neck swelling Psychiatric: Appropriate mood, and affect PROCESS COACH: No focal neurological deficits Musculoskeletal: Upper extremity: Normal strength, and range of motion. Sensation grossly intact Lower extremity: Normal strength, and decreased range of motion secondary to pain Lumbar spine: Paravertebral tenderness: positive, healed lumbar scar Lumbar facet load test : positive Sacroiliac joint tenderness: Positive Cervical spine: Paravertebral tenderness: Positive Cervical spine facet nigel: Positive Cervical spine Spurling test: not done secondary to pain Assessment and Plan Assessment: lumbar postlaminectomy syndrome Lumbar spondylosis without myelopathy Cervical spondylosis without myelopathy Myofascial pain syndrome, and chronic pain syndrome Opiate dependent Plan: 1 Opioid, and psychological risk tools, and scores were reviewed. Diagnoses, prognosis, and multiple treatment options including but not limited to physical therapy, interventional therapy, adjunct medication therapy, narcotic medication, and surgical options were discussed with the patient. And all questions were answered to the patient's satisfaction. #2 Opioid agreement: Patient was thoroughly discussed regarding the medication side effects, complications associated with narcotic use. Patient recommended do not drive while on narcotic medications, any other sedative medications, and illicit drugs including marijuana. Patient clearly understood. #3 Patient was counseled on importance of regular exercise. Including renny chi, aerobic exercises as tolerated. Which helps for chronic pain, and overall well- being. Patient also counseled regarding importance of weight control rolling chronic pain, and overall other health issues. By altering diet habits, minimizing sugar intake, and processed foods helps in minimizing Inflammation. Also discussed with the patient regarding intermittent fasting. #4 consultation: neurosurgeon #5 investigations: MAPS , urine drug test- reviewed #6 interventional procedures:refused #7 medications #1MS Contin 30 mg by mouth every 12 hours dispense 60 with no refill #2 morphine sulfate immediate release 15 mg by mouth daily as needed dispense 15 with no refill #3 naloxone 4 mg intranasal for respiratory depression as needed dispense #2. Discussed with the patient how to use by family member if needed. #4 discontinue Flexeril not noticed any benefit Medication side effects, complications, long-term consequences discussed with the patient. Patient recommended to contact the pain clinic if noticed any issues with given medications. #8 morphine milligrams equivalents dose ( MME) per day: 67.5 #9 TENS unit's, and percussion massage device #10 disposition scheduled to follow up with pain clinic in 4 weeks duration Time with Patient: Greater than 30 PQRS Measure Charge Sheet Measure #130: Documentation of Current Meds in Medical Chart: Patient's medications documented in chart Measure #226: Tobacco Use: Screen & Cessation Intervention: Pt not a tobacco user Measure #111: Pneumonia Vaccination: Pneumococcal vaccine NOT administered or previously given Measure #47: Advance Care Plan: Advance care planning discussed & documented, plan or surrogate given Measure #412: Opioid Treatment Agreement: Documented signed opioid trtmnt agreemnt min once during opioid trtmnt Measure #408: Opioid Therapy Follow-up Evaluation: Patient had f/u eval minimum every 3 months during opioid therapy Measure #317: Preventitive Care & Scrn High Bld Press & F/U: Pre-hypertensive or hypertensive BP documented, pt will f/u with PCP Measure #128: Body Mass Index (BMI) Screening & Follow-up: BMI documented ABOVE normal parameters - f/u documented Measure #131: Pain Assessment & Follow-up: Pain positive & plan documented Measure #431: Unhealthy Alcohol Use Preventative Care & Scrn: Patient not identified as an unhealthy alcohol user Mode of Arrival: Ambulatory - Pain Location Lower Back Pharmacological Interventions: Medication, PRN Medication PQRS Narrative: Smoking Status Former smoker Narcotic Agreement Date Signed 02/24/20 Blood Pressure 190/119 Pain Intensity [Lower Back] 6 Scale Used Numeric (1 - 10) Hx Alcohol Use (MH) No Home Medications: Ambulatory Orders Butalb/Acetaminophen/Caffeine [Fioricet 50-325-40 mg Tablet] 1 tab PO BID PRN 04/11/14 INSULIN LISPRO (humaLOG) [humaLOG] See Protocol SQ AC-TID PRN 04/14/14 Budesonide-Formot 160-4.5 Mcg [Symbicort 160-4.5 Mcg Inhaler] 2 puff INHALATION RT-BID PRN 10/25/15 lisinopriL [Zestril] 40 mg PO HS 04/04/16 Insulin Glargine [Lantus Vial] 80 unit SQ HS 05/02/16 Pantoprazole [Protonix] 40 mg PO AC-BID #60 tablet. 12/19/16 Acetaminophen [Tylenol Extra Strength] 1,000 mg PO Q8H PRN 02/23/20 Cyclobenzaprine [Flexeril] 10 mg PO TID #90 tab 03/22/21 Morphine Sulfate ER [Ms Contin] 30 mg PO Q12HR 30 Days #60 tab 05/05/21 Controlled Substance Measures - Controlled Substance Measures Is patient prescribed a controlled substance at discharge?: Yes When asked, does pt state using other controlled substances?: Yes If prescribed controlled substance>3 days was MAPS reviewed?: Yes If Rx opioid, was Start Talking consent form obtained?: Yes If opioid is for acute pain is fill amount 7 days or less?: No Was information provided regarding opioid addiction?: Yes
== END ==
LOC: PNWHC3 07:27
DX: M96.1 Postlaminectomy syndrome, not elsewhere classified (principal); M47.816 Spondylosis without myelopathy or radiculopathy, lumbar region; M47.812 Spondylosis without myelopathy or radiculopathy, cervical region; M79.18 Myalgia, other site; G89.4 Chronic pain syndrome; F11.20 Opioid dependence, uncomplicated; Z87.891 Personal history of nicotine dependence; Z88.6 Allergy status to analgesic agent; Z88.8 Allergy status to other drugs, medicaments and biological substances
CPT/HCPCS: 99212

== ENCOUNTER → 2021-06-14 | Outpatient (CLI) | payer MEDICARE, OTHER ==
[2021-06-14 08:00] VITALS: BP 192/105; PULSE 76; RESP 18; TEMP 98.1
--- NOTE | 2021-06-14 15:03 | P.PN ---
Subjective Progress Note Date: 06/14/21 Steffanie is a 65-year-old female presenting to clinic today for follow-up for medication refill. She is currently prescribed MS Contin extended release 30 mg every 12 hours. Last visit she was also given morphine sulfate 15 mg 1 tab every 2 days as needed for breakthrough pain. At this visit she reports that her MS Contin is doing well but she still having issues with break through pain didn't really care for the morphine. We discussed a Ten Sleep 10 mg once a day for breakthrough pain she was agreeable with that. She reports her pain increases with driving and changes in the weather. Her pain is reduced with her medications and rest. She rates her low back pain as of 8 out of 10 at its worse with her medications to 5 or 6. She reports no adverse effects or complications with her medications. Her medications allow her to continue with her daily activities with reduction in pain. She reports no bowel or bladder dysfunction, saddle anesthesia, or any other red flag symptoms. Objective - Vital Signs Vital signs: Vital Signs Temp 98.1 F 06/14/21 07:53 Pulse 76 06/14/21 07:53 Resp 18 06/14/21 07:53 BP 192/105 06/14/21 07:53 Pulse Ox 96 06/14/21 07:53 Intake & Output 06/13/21 06/14/21 06/14/21 18:59 06:59 18:59 Weight 108.862 kg - Exam Physical Examinations : -Constitutiona : Cooperative , not in acute distress . -HEENT : nech : supple , no Lymphadenopathy , normal thyroid size . : eyes : no ptosis , no icterus, no photophobia . - neurologic : Cranial nerve II to XII intact , no focal neurological deffecit . -psychatric : alert , oriented X 3 , appropriate affect , intact judgment and insight . -Lymphatic : no Lymphadenopathy . - musculoskeltal : Lumber spine moter stegnth lower extremities ,thigh and legs 5/5 Right side , 5/5 Left side deep tendon reflexes : normal Knee Jerk , normal ankle Jerk lumber facet Loading Test =positive Right , positive Left Range of motion of the lumbar spine Flexion 30 degrees, extension 10 degrees strait leg raising test = positive at degree Fabere test= positive Right , and positive LT . Sever tenderness over the Sacroiliac joint on the Right , and Left sides Gaenslen test= positive right ,and positive left . Seated flexion test= positive right ,and positive Left . Distraction test= positive bilaterally Sacroiliac compression test= positive bilaterally Assessment and Plan Assessment: Assessment: lumbar postlaminectomy syndrome Lumbar spondylosis without myelopathy Cervical spondylosis without myelopathy Myofascial pain syndrome, and chronic pain syndrome Opiate dependent Plan: 1 Opioid, and psychological risk tools, and scores were reviewed. Diagnoses, prognosis, and multiple treatment options including but not limited to physical therapy, interventional therapy, adjunct medication therapy, narcotic medicatio n, and surgical options were discussed with the patient. And all questions were answered to the patient's satisfaction. #2 Opioid agreement: Patient was thoroughly discussed regarding the medication side effects, complications associated with narcotic use. Patient recommended do not drive while on narcotic medications, any other sedative medications, and illicit drugs including marijuana. Patient clearly understood. #3 Patient was counseled on importance of regular exercise. Including renny chi, aerobic exercises as tolerated. Which helps for chronic pain, and overall well- being. Patient also counseled regarding importance of weight control rolling chronic pain, and overall other health issues. By altering diet habits, minimizing sugar intake, and processed foods helps in minimizing Inflammation. Also discussed with the patient regarding intermittent fasting. #4 consultation: neurosurgeon #5 investigations: MAPS , urine drug test- reviewed #6 interventional procedures:refused #7 medications #1MS Contin 30 mg by mouth every 12 hours dispense 60 with no refill #2 morphine sulfate immediate release 15 mg by mouth daily as needed dispense 15 with no refill #3 naloxone 4 mg intranasal for respiratory depression as needed dispense #2. Discussed with the patient how to use by family member if needed. #4 discontinue Flexeril not noticed any benefit Medication side effects, complications, long-term consequences discussed with the patient. Patient recommended to contact the pain clinic if noticed any issues with given medications. #8 morphine milligrams equivalents dose ( MME) per day: 67.5 #9 TENS unit's, and percussion massage device #10 disposition scheduled to follow up with pain clinic in 8 weeks duration - PQRS measures = - Patient's medications are documented in the chart. -Tobacco use is negative -Patient's has not received pneumococcal vaccine. -Advanced care planning discussed, patient not eligible. -Opiate contract signed. -Pain positive and follow-up visit/procedure is scheduled. -Patient's blood pressure measured and documented in the record ,and patient will follow up with the primary care. -Patient's weight was measured and body mass index [ ] above the,within the normal limits and counseling was done. and patient instructed to follow-up with the primary care physician. -Patient was not identified as an unhealthy alcohol user Time with Patient: Less than 30
== END ==
LOC: PNWHC3 07:31
PROVIDERS: ATTEND Student in an Organized Health Care Education/Training Program
DX: M47.816 Spondylosis without myelopathy or radiculopathy, lumbar region (principal); M47.812 Spondylosis without myelopathy or radiculopathy, cervical region; M96.1 Postlaminectomy syndrome, not elsewhere classified; M79.18 Myalgia, other site; G89.4 Chronic pain syndrome; F11.20 Opioid dependence, uncomplicated; Z88.6 Allergy status to analgesic agent; Z88.8 Allergy status to other drugs, medicaments and biological substances; Z87.891 Personal history of nicotine dependence
CPT/HCPCS: 99211

== ENCOUNTER → 2021-08-09 | Outpatient (CLI) | payer MEDICARE, OTHER ==
--- NOTE | 2021-08-09 08:57 | P.PN ---
Subjective Progress Note Date: 08/09/21 This is Follow up visit for this 65-year-old female with severe low back pain, status post bilateral sacroiliac joint fusion, done at [facility] , patient also she had lumbar fusion surgery done a few years ago, she continued to have severe low back pain, and she continued to use MS Contin 30 mg twice a day and Flexeril 10 mg twice a day ,she denies any side effects of the medication, she denies any excessive drowsiness or sleepiness ,and she reportes that the current medication is helping her to improve her pain and improve quality of life, she denies any suicidal the ideations ,she denies any motor or sensory deficits ,she denies any fever or night sweats, intensity of the pain 4/10 with the pain medications ,increased to 8/ 10 with any activity, she is here today for medication refill, patient complaining of increased muscle spasm in the lumbar area itches increased usually at nighttime During the evaluation showed the patient had significantly elevated blood pressure is 190/77 (she reported that she is using her blood pressure medication as prescribed by her primary care, and she will see her primary care JACOB ) - Exam -Constitutiona : Cooperative , not in acute distress . -HEENT : nech : supple , no Lymphadenopathy , normal thyroid size . : eyes : no ptosis , no icterus, no photophobia . - neurologic : Cranial nerve II to XII intact , no focal neurological deffecit . -psychatric : alert , oriented X 3 , appropriate affect , intact judgment and insight . -Lymphatic : no Lymphadenopathy . - musculoskeltal : Lumber spine moter stegnth lower extremities ,thigh and legs 5/5 Right side , 5/5 Left side deep tendon reflexes : normal Knee Jerk , normal ankle Jerk lumber facet Loading Test =positive Right , positive Left . Sever tenderness over the Sacroiliac joint on the Right , Gaenslen test= positive bilaterally. Seated flexion test= positive bilateral , Assessment and plan= sacroiliitis status post right SI joint fusion. Failed back surgery syndrome lumbar area. Hypertension emergency patient discussed with the patient the need to see her primary care today JACOB and she has to treat her blood pressure immediately Patient will see her primary care today after she leaves the offic (also discussed the importance of eating the blood pressure with her and he is aware that she needs to go to Her primary care today ) chronic and current use of high-risk medication (opioids) Patient denies any side effects of the current pain medication and the current treatment/medication helping the patient to do activity of daily living , Diagnoses, prognosis, treatment options, including but not limited to physical therapy, medication management, interventional therapies, and surgery, were discussed with the patient All the questions answered Patient was counseled on importance of diet, exercise and weight loss. The narcotic consent has been signed and patient agreed and understood the side effects and complications of opioid treatment Patient was counseled not to drive or operate heavy equipment while using narcotic medication, and advised not to use alcohol or any Illicit drugs while using the narcotics. understanding that lack of compliance with any of the above instructions, will likely to cause discharge from, the pain service, not to renew her narcotic prescriptions Medication managements= patient will be given prescription refills for MS Contin 30 mg every 12 hours dispense 60 with 1 refill, and [place] 10/325 daily when necessary dispense 30 with one refill MAPS reviewed and it was appropriate. . Follow-up: In 2 months for medication management Patient instructed to go and see her primary care regarding her hypertension Time with Patient: Less than 30 PQRS Measure Charge Sheet Measure #130: Documentation of Current Meds in Medical Chart: Patient's medications documented in chart Measure #226: Tobacco Use: Screen & Cessation Intervention: Pt not a tobacco user Measure #111: Pneumonia Vaccination: Pneumococcal vaccine administered or previously received Measure #47: Advance Care Plan: Advance care planning discussed & documented, pt chose/unable to give Measure #412: Opioid Treatment Agreement: Documented signed opioid trtmnt agreemnt min once during opioid trtmnt Measure #408: Opioid Therapy Follow-up Evaluation: Patient had f/u eval minimum every 3 months during opioid therapy Measure #317: Preventitive Care & Scrn High Bld Press & F/U: Pre-hypertensive or hypertensive BP documented, pt will f/u with PCP Measure #128: Body Mass Index (BMI) Screening & Follow-up: BMI documented ABOVE normal parameters - f/u documented Measure #131: Pain Assessment & Follow-up: Pain positive & plan documented, Follow-up scheduled Measure #431: Unhealthy Alcohol Use Preventative Care & Scrn: Patient not identified as an unhealthy alcohol user Patient did hypertensive for long time and she is on antihypertensive medication patient instructed that her blood pressure is significantly high (Pretension emergency and she has to follow with her primary care to manage her blood pressure appropriately
[2021-08-09 09:07] VITALS: BP 241/115; PULSE 90; RESP 18; TEMP 98.1
== END ==
LOC: PNWHC3 08:30
PROVIDERS: ATTEND Specialist
DX: M46.1 Sacroiliitis, not elsewhere classified (principal); M96.1 Postlaminectomy syndrome, not elsewhere classified; I10 Essential (primary) hypertension; Z79.891 Long term (current) use of opiate analgesic; Z98.1 Arthrodesis status; Z88.6 Allergy status to analgesic agent; Z87.891 Personal history of nicotine dependence
CPT/HCPCS: 99211

== ENCOUNTER → 2021-11-29 | Outpatient (CLI) | payer MEDICARE, OTHER ==
--- NOTE | 2021-11-29 10:38 | P.PN ---
Subjective Progress Note Date: 11/29/21 Principal diagnosis: A 66 yr old female with a history of severe and chronic low back pain secondary to lumbar degenerative disc diseases and lumbar spondylosis with facet arthropathy presents today for medication refills. Pain level is 9 out of 10 in intensity, constant, achy, sore, sharp in the right aspect of her lumbar spine which shooting pain down the right lower extremity greater than left. Pain is provoked by cold weather, ice, climbing stairs and walking. Pain is alleviated with medications, topical patches which burned her skin, physical therapy integrated with massage one year ago which was ineffective, home stretching regimen, sitting in a reclined position and rest. Patient is currently on Morphine Sulfate and [place]. Patient denies any side effects of the medication(s), denies excessive drowsiness or sleepiness, denies suicidal ideation and reports that the current pain medication is helping to control the pain and improve activities of daily living. Patient denies any motor or sensory deficits. Patient denies any fever or night sweats, denies any change in the bowel movements or urination. Physical Examination: -Constitutional: Cooperative. Not in acute distress . -HEENT: Neck is supple. No lymphadenopathy. No thyromegaly. Normal thyroid size. Eyes: No ptosis , no icterus, no photophobia. ENT: No auditory deficits. Normal oropharynx. No Thrush. - Respiratory: Chest clear to auscultations bilaterally. No wheezing. No rhonchi. - Cardiovascular: Regular rate and rhythm. S1 / S2 , no S3 , no S4. - Gastrointestinal: Abdomen soft no tenderness. Bowel sounds positive in all four quadrants. No organomegaly. - Genitourinary: Deferred. - Neurologic: Cranial nerve II to XII intact. No focal neurological deficits. - Psychatric: Alert & oriented x 3. Matching mood & appropriate affect. Judgment and insight intact. - Lymphatic: No Lymphadenopathy. - Musculoskeletal: Cervical spine: Muscle bulk/ tone/ strength in the bilateral upper extremities normal. Facet loading test cervical area positive. Lumbar spine: Motor bulk/ tone/ strength lower extremities , thigh and legs : 5/5 Deep tendon reflexes : Normal Knee Jerk. Normal Ankle Jerk . Vertebral body tenderness to palpation over L4, L5 Lumbar Facet Loading Test positive Straight Leg Raise: positive at 30 degrees right side/ left side Gaenslen's Test positive Sacral spine : Severe tenderness over the Sacroiliac joint: right side / left side Range of motion: Flexion of the lumbar spine <60 degrees Range of motion: Extension of the lumbar spine <20 degrees Gaenslen's Test positive Tiny test: positive right side / left side Assessment and plan: Chronic low back pain secondary to lumbar degenerative disc disease , lumbar spondylosis with facet arthropathy without myelopathy Chronic and current use of high-risk medication (Opioids). The patient was counseled about risk of opioid use, psychological risk associated with opioids and was orally counseled to not overuse , divert or sell medications. Pt is to store medication in a safe location. The patient is counseled against driving while using narcotic medications and also not to use alcohol or any illicit recreational drugs. Patient verbalized understanding that the lack of compliance will result in failure to renew narcotic prescription(s) as well as possible discharge from the clinic Diagnoses, prognosis and treatment options including but not limited to physical therapy, surgical interventions, interventional therapies and medication management including narcotics and adjuvant medication were discussed. All patient questions answered MAPS reviewed and it was appropriate. Urine for UDS collected today, 11/29/21. Prescription refill for [place] w 1 refill, MS w 1 refill. I have spent 31 minutes on patient care today. Dr Dougherty was available by phone for the evaluation of this patient. The time was used to review the medical records including relevant urine studies and Prescription history (MAPs), review of the available imaging, evaluation and examination of the patient, coordination of care with the medical staff and if applicable referring physicians, as well as creation of the medical record PQRS Measure Charge Sheet PQRS Narrative: Smoking Status Former smoker Narcotic Agreement Date Signed 05/17/21 Hx Alcohol Use (MH) No Home Medications: Ambulatory Orders Butalb/Acetaminophen/Caffeine [Fioricet 50-325-40 mg Tablet] 1 tab PO TID PRN 04/11/14 INSULIN LISPRO (humaLOG) [humaLOG] See Protocol SQ AC-TID PRN 04/14/14 Budesonide-Formot 160-4.5 Mcg [Symbicort 160-4.5 Mcg Inhaler] 2 puff INHALATION RT-BID PRN 10/25/15 lisinopriL [Zestril] 40 mg PO HS 04/04/16 Insulin Glargine [Lantus Vial] 80 unit SQ HS 05/02/16 Pantoprazole [Protonix] 40 mg PO AC-BID #60 tablet. 12/19/16 HYDROcodone/APAP 10-325MG [[place] 10-325] 1 tab PO Q12HR PRN 30 Days #60 tab 11/29/21 HYDROcodone/APAP 10-325MG [[place] 10-325] 1 tab PO Q12HR PRN 30 Days #60 tab 11/29/21 Morphine Sulfate ER [Ms Contin] 30 mg PO Q12H 30 Days #60 tab 11/29/21 Morphine Sulfate ER [Ms Contin] 30 mg PO Q12HR 30 Days #60 tab 11/29/21
[2021-11-29 10:43] VITALS: BP 194/110; PULSE 74; RESP 16; TEMP 98.4
== END ==
LOC: PNWHC3 09:40
PROVIDERS: ATTEND Specialist
DX: M51.36 Other intervertebral disc degeneration, lumbar region (principal); M47.816 Spondylosis without myelopathy or radiculopathy, lumbar region; G89.29 Other chronic pain; Z79.891 Long term (current) use of opiate analgesic; Z87.891 Personal history of nicotine dependence; Z88.6 Allergy status to analgesic agent; Z88.8 Allergy status to other drugs, medicaments and biological substances
CPT/HCPCS: 80307; G0482; G0463; 99212

== ENCOUNTER → 2021-12-27 | Outpatient (CLI) | payer MEDICARE, OTHER ==
--- NOTE | 2021-12-28 09:45 | MM ---
Reason for exam: clinical finding. Last mammogram was performed 5 years and 7 months ago. History: Patient is postmenopausal. Family history of breast cancer in aunt at age 57. Indicated problem(s): lump or thickening in the right breast. Physical Findings: A clinical breast exam by your physician is recommended on an annual basis and results should be correlated with mammographic findings. MG 3D Diag Mammo W/Cad JULIET Bilateral CC and MLO view(s) were taken. Prior study comparison: May 30, 2016, bilateral MG 3d work up w/cad JULIET. May 16, 2016, bilateral MG 3d screening mammo w/cad. The breast tissue is heterogeneously dense. This may lower the sensitivity of mammography. Spiculated mass 12 o'clock right breast measuring 2.4 x 2.0cm, 3.6cm from nipple. Results were given to the patient verbally at the time of the exam. ASSESSMENT: Highly suggestive of malignancy, BI-RAD 5 RECOMMENDATION: Ultrasound and ultrasound core biopsy of the right breast. Manage patient on a clinical basis. Called Dr. Dior's office with mammographic findings and has scheduled an appointment for the patient for 12/29/21 at 4:[address] Salgado. Biopsy scheduled for 01/02/22 at 12:45. PRELIMINARY REPORT CALLED AND FAXED TO DR. SALGADO ON 12/28/21.
--- NOTE | 2021-12-28 09:47 | USB ---
Reason for exam: additional evaluation requested from abnormal screening. History: Patient is postmenopausal. Family history of breast cancer in aunt at age 57. Physical Findings: A clinical breast exam by your physician is recommended on an annual basis and results should be correlated with mammographic findings. US Breast Limited RT Technologist: Sonal Mohamud Right limited breast ultrasound including focal area of concern, retroareolar and axilla demonstrates a 2.0 x 2.4 x 2.0cm irregular, spiculated, solid, vascular lesion at 3 o'clock, 3cm from nipple, biopsy recommended and a lymph node at the axilla, cortex 4.5mm, biopsy recommended. Results were given to the patient verbally at the time of the exam. ASSESSMENT: Highly suggestive of malignancy, BI-RAD 5 RECOMMENDATION: Ultrasound core biopsy of the right breast. (x 2) Manage patient on a clinical basis. Called Dr. Dior's office with mammographic findings and has scheduled an appointment for the patient for 12/29/21 at 4:[address] Salgado. Biopsy scheduled for 01/02/22 at 12:45. PRELIMINARY REPORT CALLED AND FAXED TO DR. SALGADO ON 12/28/21.
== END | disposition home or self-care (01) ==
LOC: RADMAMWWP 07:46
PROVIDERS: ATTEND Family Medicine
DX: N64.89 Other specified disorders of breast (principal); Z78.0 Asymptomatic menopausal state; Z80.3 Family history of malignant neoplasm of breast
CPT/HCPCS: 77066; 76642; G0279; 77062

== ENCOUNTER → 2021-12-29 | Outpatient (CLI) | payer MEDICARE, OTHER ==
[2021-12-29 15:49] VITALS: BP 235/103; PULSE 83; RESP 18; TEMP 98
--- NOTE | 2021-12-29 16:07 | P.GSHP ---
History of Present Illness H&P Date: 12/29/21 Chief Complaint: abnormal right breast mammogram and ultrasound Steffanie is a 66 year old white female seen in consultation for Dr. Yoli Dior regarding an abnormality in her right breast. She had a bilateral mammogram on 12-27-21 which showed a lesion at the 12 oclock position. She had an ultrasound which confirmed this it was 2.4 cm in size. The patient noted a mass in her right breast several weeks ago which led to the mammogram and the ultrasound. The spot has not changed in size and it is not painful. He has never had any surgery on her breast. She is not complaining of any trauma or infection in the breast. Caffeine:none nictoine: none; stopped 40 years ago chocolate: occasional Family history: father: colon, throat lung, and spread to his brain Hormonal history: Menarche: 10 , breast fed: no, age at first : 19 menopause: D&C at 43 and no period since BCP: none hormones: none Surgical history: right knee right wrist 2 left shoulder apppy gallbladder 4 surgeries on her back SSI screws placed left hand Medical History: back pain diabetes asthma HTN anxiety/depression Social History: nicotine: none alcohol: none drugs: none - Constitutional Constitutional: Denies chills, Denies fever - EENT Eyes: denies blurred vision, denies pain Ears: deny: decreased hearing, tinnitus Ears, nose, mouth and throat: Reports headache, Denies sore throat - Breasts Breasts: bilateral: as per HPI - Cardiovascular Cardiovascular: Denies chest pain, Denies shortness of breath - Respiratory Respiratory: Denies cough, Denies 7 - Gastrointestinal Gastrointestinal: Denies abdominal pain, Denies diarrhea, Denies nausea, Denies vomiting - Genitourinary (Female) Genitourinary: Denies dysuria, Denies hematuria - Menstruation Menstruation: Reports postmenopausal - Musculoskeletal Musculoskeletal: Reports as per HPI - Integumentary Integumentary: Denies pruritus, Denies rash - Neurological Neurological: Reports numbness, Reports weakness - Psychiatric Psychiatric: Denies anxiety, Denies depression - Endocrine Endocrine: Denies fatigue, Denies weight change - Hematologic/Lymphatic Comment: none - Allergic/Immunologic Allergic/Immunologic: Reports as per HPI Past Medical History Past Medical History: Asthma, COPD, Diabetes Mellitus, GERD/Reflux, Hyperlipidemia, Hypertension, Musculoskeletal Disorder Additional Past Medical History / Comment(s): Migraine headaches. Hx kidney stone. Chronic back pain, numbness and tingling bilateral lower extremities. History of Any Multi-Drug Resistant Organisms: MRSA Date of last positivie culture/infection: 2011 MDRO Source:: UNK Past Surgical History: Appendectomy, Back Surgery, Cholecystectomy, Joint Replacement, Orthopedic Surgery Additional Past Surgical History / Comment(s): Fusion w/ kane also back surgery 04/21/2019. Left Shoulder Replacement, Right knee replacement, plate in right wrist, left thumb joint repair, Right CTR, Right shoulder arthroscopy. micheal cataracts, LARYNGOSCOPY, November 2016 Cervical Plate, PAIN CLINIC PROCEDURES. Past Anesthesia/Blood Transfusion Reactions: No Reported Reaction Past Psychological History: No Psychological Hx Reported Smoking Status: Former smoker Past Alcohol Use History: None Reported Additional Past Alcohol Use History / Comment(s): SMOKED 1PPD, STARTED SMOKING AGE 17, AND QUIT IN 1981. Past Drug Use History: None Reported - Past Family History Brother(s) Family Medical History: Cancer, Myocardial Infarction ([place]) Father Family Medical History: Cancer Additional Family Medical History / Comment(s): throat, colon, liver, and brain cancer. Mother Family Medical History: Myocardial Infarction ([place]) Additional Family Medical History / Comment(s): at 54 of [place]. Medications and Allergies Home Medications Medication Instructions Recorded Confirmed Type Butalb/Acetaminophen/Caffeine 1 tab PO TID PRN 04/11/14 12/29/21 History [Fioricet 50-325-40 mg Tablet] INSULIN LISPRO (humaLOG) [humaLOG] See Protocol SQ AC-TID PRN 04/14/14 12/29/21 History Budesonide-Formot 160-4.5 Mcg 2 puff INHALATION RT-BID PRN 10/25/15 12/29/21 History [Symbicort 160-4.5 Mcg Inhaler] lisinopriL [Zestril] 40 mg PO HS 04/04/16 12/29/21 History Insulin Glargine [Lantus Vial] 80 unit SQ HS 05/02/16 12/29/21 History Pantoprazole [Protonix] 40 mg PO AC-BID #60 tablet. 12/19/16 12/29/21 Rx HYDROcodone/APAP 10-325MG [[place] 1 tab PO Q12HR PRN 30 Days #60 tab 11/29/21 12/29/21 Rx 10-325] Morphine Sulfate ER [Ms Contin] 30 mg PO Q12HR 30 Days #60 tab 11/29/21 12/29/21 Rx Allergies Allergy/AdvReac Type Severity Reaction Status Date / Time gabapentin AdvReac Confusion Verified 12/29/21 15:42 ibuprofen [From Motrin] AdvReac Abdominal Verified 12/29/21 15:42 Pain and vomiting pregabalin [From Lyrica] AdvReac Confusion Verified 12/29/21 15:42 Surgical - Exam Vital Signs Temp Pulse Resp BP Pulse Ox 98.0 F 83 18 235/103 93 L 12/29/21 15:46 12/29/21 15:46 12/29/21 15:46 12/29/21 15:46 12/29/21 15:46 BMI: 43 - General no distress - Eyes normal ocular movement - Neck trachea midline - Respiratory normal respiratory effort, clear to auscultation - Cardiovascular Heart Sounds: normal: S1, S2 - Abdomen Abdomen: soft - Integumentary normal turgor - Neurologic no disoriented, no combative - Musculoskeletal normal gait - Psychiatric oriented to time, oriented to person, oriented to place, speech is normal, memory intact Breast Exam: ? size inspection: Bilateral grade 3 ptosis Palpation: Right breast: Multiple positional exam approximately 2-1/2 cm mass at the 12 o'clock position with nipple inversion, no other dominant masses or nodules of concern Right axilla: No adenopathy of concern Left breast: Multiple positional exam fibrocystic changes no dominant masses or nodules of concern Left axilla: No adenopathy of concern This Fungal infection under both breasts and both axillas Results Mammogram and ultrasound personally reviewed Assessment and Plan Assessment: Impression: back pain diabetes asthma HTN anxiety/depression Abnormal right breast mammogram and ultrasound Mass right breast Fibrocystic breast changes Probable fungal infection under both breasts and axilla Plan: Right breast ultrasound-guided core biopsy Nystatin 2 areas of fungal infection under breast and axilla was Follow-up after ultrasound-guided core biopsy Cc: Dr. Chanda Dior
== END ==
LOC: WWCWWP 15:04
PROVIDERS: ATTEND Surgery
DX: R92.8 Other abnormal and inconclusive findings on diagnostic imaging of breast (principal); N60.11 Diffuse cystic mastopathy of right breast; I10 Essential (primary) hypertension; F41.9 Anxiety disorder, unspecified; F32.A Depression, unspecified; E11.9 Type 2 diabetes mellitus without complications; N63.15 Unspecified lump in the right breast, overlapping quadrants; M54.50 Low back pain, unspecified; J44.9 Chronic obstructive pulmonary disease, unspecified; E78.5 Hyperlipidemia, unspecified; Z87.891 Personal history of nicotine dependence; Z79.4 Long term (current) use of insulin; K21.9 Gastro-esophageal reflux disease without esophagitis; Z88.6 Allergy status to analgesic agent; Z88.8 Allergy status to other drugs, medicaments and biological substances

== ENCOUNTER → 2022-01-22 | Outpatient (CLI) | payer MEDICARE, OTHER ==
[2022-01-22 08:21] VITALS: BP 180/111; PULSE 86; RESP 18; TEMP 98.1
--- NOTE | 2022-01-22 09:00 | P.PN ---
Subjective Progress Note Date: 01/22/22 Principal diagnosis: Invasive ductal carcinoma right breast Steffanie is a 66-year-old white female status post ultrasound-guided core biopsy of the left breast and a lymph node in the left axilla on 01-02-22. Pathology revealed invasive ductal carcinoma and microscopic disease in the lymph node. The lesion is ER/VA positive and HER-2 negative. It is grade 2. The patient tolerated the procedure without difficulty. Objective - Vital Signs Vital signs: Vital Signs Temp 98.1 F 01/22/22 08:18 Pulse 86 01/22/22 08:18 Resp 18 01/22/22 08:18 BP 180/111 01/22/22 08:18 Pulse Ox FiO2 Intake & Output 01/21/22 01/22/22 01/22/22 18:59 06:59 18:59 Weight 109.769 kg - Constitutional General appearance: Present: cooperative - EENT Eyes: Present: EOMI ENT: Present: hearing grossly normal - Neck Neck: Present: normal ROM - Respiratory Respiratory: bilateral: CTA - Cardiovascular Heart sounds: normal: S1, S2 - Integumentary Integumentary: Present: normal turgor - Musculoskeletal Musculoskeletal: Present: gait normal - Psychiatric Psychiatric: Present: A&O x's 3, appropriate affect, intact judgment & insight - Additional findings Additional findings: Biopsy site right breast clean and dry Bra size 38 B/C Assessment and Plan Assessment: Impression: Stage Ib/IIA invasive ductal carcinoma right breast Plan: Presentation of case at tumor board Possible neoadjuvant therapy Patient to follow up after tumor board I have discussed with the patient the stage of her tumor, as well as treatment options. At this time her case is going to be presented at tumor board and final recommendation will follow. The patient would prefer to have a mastectomy if she could avoid radiation therapy as [place]. She understands that if the axillary nodes are well she still may be recommended to have radiation therapy. She will be seen again after follow-up with medical oncology and presentation at tumor board. Time spent approximately 45 minutes. Cc: Dr. Chanda Taylor
== END ==
LOC: WWCWWP 07:51
PROVIDERS: ATTEND Surgery
DX: C50.911 Malignant neoplasm of unspecified site of right female breast (principal); Z17.0 Estrogen receptor positive status [ER+]; Z88.6 Allergy status to analgesic agent; Z88.8 Allergy status to other drugs, medicaments and biological substances; Z87.891 Personal history of nicotine dependence

== ENCOUNTER → 2022-01-24 | Outpatient (CLI) | payer MEDICARE, OTHER ==
--- NOTE | 2022-01-24 11:02 | P.PAINPG ---
PQRS Measure Charge Sheet Comment: A 66 yr old female with a history of severe and chronic low back pain secondary to lumbar degenerative disc diseases and lumbar spondylosis with facet arthropathy presents today for medication refills. Pain level is currently at 7 out of 10 in intensity, sharp, stinging in the right lower aspect of her lumbar spine. She has been having this pain for the last 20 years. Pain is provoked with bending. Pain is alleviated with medications, injections (left knee injection), heat, physical therapy years ago, chiropractic treatments which were discontinued due to no improvement, reclining and rest. Interventional pain procedures completed include L knee intraarticular injection Patient is currently on [place] , [place] ER 30mg BID Patient denies any side effects of the medication(s), denies excessive drowsiness or sleepiness, denies suicidal ideation and reports that the current pain medication is helping to control the pain and improve activities of daily living. Patient denies any motor or sensory deficits. Patient denies any fever or night sweats, denies any change in the bowel movements or urination. Physical Examination: -Constitutional: Cooperative. Not in acute distress . -HEENT: Neck is supple. No lymphadenopathy. No thyromegaly. Normal thyroid size. Eyes: No ptosis , no icterus, no photophobia. ENT: No auditory deficits. Normal oropharynx. No Thrush. - Respiratory: Chest clear to auscultations bilaterally. No wheezing. No r honchi. - Cardiovascular: Regular rate and rhythm. S1 / S2 , no S3 , no S4. - Gastrointestinal: Abdomen soft no tenderness. Bowel sounds positive in all four quadrants. No organomegaly. - Genitourinary: Deferred. - Neurologic: Cranial nerve II to XII intact. No focal neurological deficits. - Psychatric: Alert & oriented x 3. Matching mood & appropriate affect. Judgment and insight intact. - Lymphatic: No Lymphadenopathy. - Musculoskeletal: Cervical spine: Muscle bulk/ tone/ strength in the bilateral upper extremities normal Vertebral body tenderness to palpation over Facet loading test positive Thoracic spine Muscle bulk / tone/ strength in the bilateral paraspinal muscles normal Vertebral body tender to palpation over Facet loading test positive Lumbar spine: Motor bulk/ tone/ strength lower extremities , thigh and legs : 5/5 Deep tendon reflexes : Normal Knee Jerk. Normal Ankle Jerk . Vertebral body tenderness to palpation over L3, L4, L5 Lumbar Facet Loading Test positive Straight Leg Raise: positive at 30 degrees right side/ left side Gaenslen's Test positive Sacral spine : Severe tenderness over the Sacroiliac joint: right side / left side Range of motion: Flexion of the lumbar spine <60 degrees Range of motion: Extension of the lumbar spine <20 degrees Gaenslen's Test positive Alonzo's Test positive Tiny test: positive right side / left side Thigh Thrust Test Sacral Thrust Test Assessment and plan: Chronic low back pain secondary to lumbar degenerative disc disease , lumbar spondylosis with facet arthropathy without myelopathy Chronic and current use of high-risk medication (Opioids). The patient was counseled about risk of opioid use, psychological risk associated with opioids and was orally counseled to not overuse , divert or sell medications. Pt is to store medication in a safe location. The patient is counseled against driving while using narcotic medications and also not to use alcohol or any illicit recreational drugs. Patient verbalized understanding that the lack of compliance will result in failure to renew narcotic prescription(s) as well as possible discharge from the clinic Diagnoses, prognosis and treatment options including but not limited to physical therapy, surgical interventions, interventional therapies and medication management including narcotics and adjuvant medication were discussed. All patient questions answered MAPS reviewed and it was appropriate. UDS from reviewed and consistent. Prescription refill for [place] 10/325mg #60, [place] ER 30mg #60 w 1 refill I have spent 31 minutes on patient care today. Dr Dougherty was available by phone for the evaluation of this patient. The time was used to review the medical records including relevant urine studies and Prescription history (MAPs), review of the available imaging, evaluation and examination of the patient, coordination of care with the medical staff and if applicable referring physicians, as well as creation of the medical record PQRS Narrative: Smoking Status Former smoker Narcotic Agreement Date Signed 05/17/21 Hx Alcohol Use (MH) No Home Medications: Ambulatory Orders Butalb/Acetaminophen/Caffeine [Fioricet 50-325-40 mg Tablet] 1 tab PO TID PRN 04/11/14 INSULIN LISPRO (humaLOG) [humaLOG] See Protocol SQ AC-TID PRN 04/14/14 Budesonide-Formot 160-4.5 Mcg [Symbicort 160-4.5 Mcg Inhaler] 2 puff INHALATION RT-BID PRN 10/25/15 lisinopriL [Zestril] 40 mg PO HS 04/04/16 Insulin Glargine [Lantus Vial] 80 unit SQ HS 05/02/16 Pantoprazole [Protonix] 40 mg PO AC-BID #60 tablet. 12/19/16 HYDROcodone/APAP 10-325MG [[place] 10-325] 1 tab PO Q12HR PRN 30 Days #60 tab 01/24/22 HYDROcodone/APAP 10-325MG [[place] 10-325] 1 tab PO Q12HR PRN 30 Days #60 tab 01/24/22 Morphine Sulfate ER [Ms Contin] 30 mg PO Q12H 30 Days #60 tab 01/24/22 Morphine Sulfate ER [Ms Contin] 30 mg PO Q12HR 30 Days #60 tab 01/24/22 Controlled Substance Measures - Controlled Substance Measures Is patient prescribed a controlled substance at discharge?: Yes When asked, does pt state using other controlled substances?: Yes If prescribed controlled substance>3 days was MAPS reviewed?: Yes If Rx opioid, was Start Talking consent form obtained?: Yes If opioid is for acute pain is fill amount 7 days or less?: Yes Was information provided regarding opioid addiction?: Yes
[2022-01-24 12:00] VITALS: BP 200/114; PULSE 79; RESP 18; TEMP 97.8
== END ==
LOC: PNWHC3 09:06
PROVIDERS: ATTEND Specialist
DX: M51.36 Other intervertebral disc degeneration, lumbar region (principal); M47.816 Spondylosis without myelopathy or radiculopathy, lumbar region; G89.29 Other chronic pain; Z79.891 Long term (current) use of opiate analgesic; Z87.891 Personal history of nicotine dependence; Z88.6 Allergy status to analgesic agent; Z88.8 Allergy status to other drugs, medicaments and biological substances
CPT/HCPCS: 99211

== ENCOUNTER 2022-02-06 06:48 | Observation (INO) | payer MEDICARE, OTHER ==
--- NOTE | 2022-02-01 13:46 | P.PN ---
Subjective Progress Note Date: 02/01/22 Principal diagnosis: stage IA right breast cancer Steffanie is a 66 year old white female seen in consultation for Dr. Yoli Dior regarding an abnormality in her right breast. She had a bilateral mammogram on 12-27-21 which showed a lesion at the 12 oclock position. She had an ultrasound which confirmed this it was 2.4 cm in size. The patient noted a mass in her right breast several weeks ago which led to the mammogram and the ultrasound. The spot has not changed in size and it is not painful. He has never had any surgery on her breast. She is not complaining of any trauma or infection in the breast. The patient underwent an ultrasound-guided [place] [address]. Pathology revealed an invasive moderately differentiated ductal carcinoma grade 2 ER/LA positive HER-2/omid negative of the right breast. The lymph node revealed micro-mid metastatic disease. [place] [id number]. Recommendations from tumor board were proceeding to surgery, patient to have needle local positive lymph node as well as sentinel node biopsy. Caffeine:none nicotine: none; stopped 40 years ago chocolate: occasional Family history: father: colon, throat lung, and spread to his brain Hormonal history: Menarche: 10 , breast fed: no, age at first : 19 menopause: D&C at 43 and no period since BCP: none hormones: none Surgical history: right knee right wrist 2 left shoulder apppy gallbladder 4 surgeries on her back SSI screws placed left hand Medical History: back pain diabetes asthma HTN anxiety/depression Social History: nicotine: none alcohol: none drugs: none - Constitutional Constitutional: Denies chills, Denies fever - EENT Eyes: denies blurred vision, denies pain Ears: deny: decreased hearing, tinnitus Ears, nose, mouth and throat: Reports headache, Denies sore throat - Breasts Breasts: bilateral: as per HPI - Cardiovascular Cardiovascular: Denies chest pain, Denies shortness of breath - Respiratory Respiratory: Denies cough - Gastrointestinal Gastrointestinal: Denies abdominal pain, Denies diarrhea, Denies nausea, Denies vomiting - Genitourinary (Female) Genitourinary: Denies dysuria, Denies hematuria - Menstruation Menstruation: Reports postmenopausal - Musculoskeletal Musculoskeletal: Reports as per HPI - Integumentary Integumentary: Denies pruritus, Denies rash - Neurological Neurological: Reports numbness, Reports weakness - Psychiatric Psychiatric: Denies anxiety, Denies depression - Endocrine Endocrine: Denies fatigue, Denies weight change - Hematologic/Lymphatic Comment: none - Allergic/Immunologic Allergic/Immunologic: Reports as per HPI Past Medical History Past Medical History: Asthma, COPD, Diabetes Mellitus, GERD/Reflux, Hyperlipidemia, Hypertension, Musculoskeletal Disorder Additional Past Medical History / Comment(s): Migraine headaches. Hx kidney stone. Chronic back pain, numbness and tingling bilateral lower extremities. History of Any Multi-Drug Resistant Organisms: MRSA Date of last positivie culture/infection: 2011 MDRO Source:: UNK Past Surgical History: Appendectomy, Back Surgery, Cholecystectomy, Joint Replacement, Orthopedic Surgery Additional Past Surgical History / Comment(s): Fusion w/ kane also back surgery 04/21/2019. Left Shoulder Replacement, Right knee replacement, plate in right wrist, left thumb joint repair, Right CTR, Right shoulder arthroscopy. micheal cataracts, LARYNGOSCOPY, November 2016 Cervical Plate, PAIN CLINIC PROCEDURES. Past Anesthesia/Blood Transfusion Reactions: No Reported Reaction Past Psychological History: No Psychological Hx Reported Smoking Status: Former smoker Past Alcohol Use History: None Reported Additional Past Alcohol Use History / Comment(s): SMOKED 1PPD, STARTED SMOKING AGE 17, AND QUIT IN 1981. Past Drug Use History: None Reported Objective - Exam BMI: 43 - Constitutional General appearance: Present: cooperative - EENT Eyes: Present: EOMI ENT: Present: hearing grossly normal - Neck Neck: Present: normal ROM - Respiratory Respiratory: bilateral: CTA - Cardiovascular Heart sounds: normal: S1, S2 - Musculoskeletal Musculoskeletal: Present: gait normal - Psychiatric Psychiatric: Present: A&O x's 3, appropriate affect, intact judgment & insight - Additional findings Additional findings: Breast examination: Inspection: Bilateral grade 3 ptosis Palpation: Right breast: Multi-positional exam approximately 2-1/2 cm mass at 12 o'clock position with nipple inversion no other dominant masses or nodules of concern Right axilla: No adenopathy of concern Left breast: Multi-positional exam fibrocystic changes no dominant masses or notches of concern Left axilla no adenopathy of concern Assessment and Plan Assessment: Impression: Stage IB/IIA invasive ductal right breast cancer Plan: Right mastectomy, needle localization of positive preoperative lymph node, sentinel node injection, sentinel node biopsy, possible axillary node dissection Risks and benefits of surgical procedure were discussed with the patient. Options of lumpectomy versus mastectomy were discussed with the patient. The patient was given the option of seeing a plastic surgeon for immediate reconstruction. The patient did not want to have a lumpectomy nor did she want reconstruction. Risks include but are not limited to bleeding, infection, reaction to the anesthetic. Secondary surgery in the axilla risk include but are not limited to bleeding, infection, reaction to the anesthetic, additionally swelling of the arm. And decreased sensation to the upper arm. Additionally there is the possibility of injury to the thoracodorsal and long thoracic nerves. The patient understands and wishes to proceed with the surgery. CC: Dr. Chanda Dior
[2022-02-02 14:38] VITALS: BMI 44.2
[~2022-02-06 06:48] MED LIST changes: +DEXAMETHASONE SOD PHOSPHATE 4 MG/ML 1 ML VIAL IV ONE; +HEPARIN SODIUM,PORCINE/PF 5,000 UNIT/0.5 ML SYRINGE SQ PRN; -LIDOCAINE 1% (10MG/ML) FOR IV START INTRADERMA ONE; +LIDOCAINE 1% (10MG/ML) FOR IV START INTRADERMA PRN; +ONDANSETRON 4 MG/2 ML VIAL IVP ONE; +Pre Op ABX Message 1 EACH MISC MISCELLANE ONE
[2022-02-06] MEDS ORDERED: METOCLOPRAMIDE 5 MG/ML 2 ML VIAL IVP PRN (07:00)
[2022-02-06] MEDS ORDERED: ALPRAZolam 0.5 MG TAB ONE (07:24)
[2022-02-06] MEDS ORDERED: ALPRAZolam 0.5 MG TAB PO ONE (07:24)
[2022-02-06 07:28] LABS: Glucose,Whole Blood 172 mg/dL (70-110)
[2022-02-06 07:36] LABS: Basophils # (A) 0.1 k/uL (0-0.2); Basophils % (A) 1 %; Eosinophils # (A) 0.3 k/uL (0-0.7); Eosinophils % (A) 4 %; HCT 40.2 % (34.0-46.0); Lymphocytes % (A) 32 %; MCH 27.9 pg (25.0-35.0); MCHC 32.4 g/dL (31.0-37.0); MCV 85.9 fL (80.0-100.0); Mean Platelet Volume 8.1; Monocytes # (A) 0.3 k/uL (0-1.0); Monocytes % (A) 6 %; Neutrophils # (A) 3.4 k/uL (1.3-7.7); Neutrophils % (A) 55 %; Platelet Count 140 k/uL (150-450); RBC 4.68 m/uL (3.80-5.40); RDW 13.7 % (11.5-15.5); WBC 6.2 k/uL (3.8-10.6)
[2022-02-06] MEDS ORDERED: LIDOCAINE 1% INJ 10MG/ML (20 ML MDV) SQ ONE (08:26)
--- NOTE | 2022-02-06 08:35 | P.NAPBC ---
NAPBC Queries - NAPBC Queries Was patient's case review presented at [facility] tumor board? If no, comment.: Yes Was patient's pathology reviewed at [facility]? If no, comment.: Yes Was breast conservation surgery offered? If no, comment.: Yes Was sentinel node biopsy offered? If no, comment.: Yes Was diagnosis confirmed by percutaneous core biopsy? If no, comment.: Yes Is patient mastectomy patient?: Yes Was a preop referral to reconstructive surgeon offered?: Yes Clinical Stage: stage IA [id number]-
--- NOTE | 2022-02-06 10:33 | NM ---
EXAMINATION TYPE: NM sentinel node injection DATE OF EXAM: 02/06/2022 COMPARISON: NONE HISTORY: Breast cancer TECHNIQUE AND FINDINGS: The procedure of sentinel lymph node injection was explained to the patient. The benefits, alternatives, and risks were discussed. An informed consent was then obtained. Overlying skin is cleaned with sterile alcohol. Following this, 519 uCi [id number] Tilmanocept was inject ed in the upper outer aspect of the right nipple intradermally. The patient tolerated the procedure well without any immediate complication. The patient was kept in the radiology department for short stay after the procedure and then taken to surgery for surgical p rocedure what is presumed intraoperative gamma probe will be used for sentinel lymph node detection. IMPRESSION: Right breast radiotracer injection for sentinel node localization as above.
[2022-02-06] MEDS ORDERED: LIDOCAINE 2% INJ 20 MG/ML (2 ML VIAL) ONE (11:37)
[2022-02-06] MEDS ORDERED: MIDAZOLAM 2 MG/2 ML VIAL ONE (11:37)
[2022-02-06] MEDS ORDERED: PROPOFOL 10 MG/ML 20 ML VIAL IV ONE (11:37)
[2022-02-06] MEDS ORDERED: LIDOCAINE 4% LTA KIT (4 ML) TOPICAL ONE (11:37)
[2022-02-06] MEDS ORDERED: ROCURONIUM 10 MG/ML (5 ML VIAL) IV ONE (11:37)
[2022-02-06] MEDS ORDERED: KETAMINE 10 MG/ML 20 ML VIAL ONE (11:37)
[2022-02-06] MEDS ORDERED: fentaNYL (PF) 50 MCG/ML 2 ML AMP ONE (11:37)
[2022-02-06] MEDS ORDERED: SUCCINYLCHOLINE CHLORIDE 100 MG/5 ML SYR IV ONE (11:37)
[2022-02-06] MEDS ORDERED: LABETALOL 5 MG/ML VIAL MDV ONE (11:37)
[2022-02-06] MEDS ORDERED: SODIUM CHLORIDE 0.9% 50 ML with ceFAZolin 2,000 MG IV ONE ×2 (11:42)
[2022-02-06] MEDS ORDERED: METHYLENE BLUE 10 MG/ML (10 ML VIAL) INJ ONE (12:34)
[2022-02-06] MEDS ORDERED: LACTATED RINGERS 1,000 ML IV ONE (13:55)
[2022-02-06] MEDS ORDERED: ONDANSETRON 4 MG/2 ML VIAL IVP PRN (14:07)
[2022-02-06] MEDS ORDERED: NALOXONE 0.4 MG/ML 1 ML VIAL IV PRN (14:07)
--- NOTE | 2022-02-06 14:07 | P.OP ---
Date of Procedure: 02/06/22 Preoperative Diagnosis: Right breast invasive ductal carcinoma with microscopic disease in a lymph node which was biopsied Postoperative Diagnosis: Same Procedure(s) Performed: Right mastectomy, right methylene blue injection for sentinel node, right sent inel node biopsy Anesthesia: REBECCA Surgeon: Stacie Salgado Estimated Blood Loss (ml): 30 IV fluids (ml): 700 Pathology: other (Breast tissue, axillary lymph node) Condition: stable Disposition: same day Indications for Procedure: Right breast invasive ductal carcinoma Operative Findings: tumor Inferior 6 o'clock position right breast Description of Procedure: The patient is a 66-year-old white female diagnosed with a right breast invasive ductal carcinoma. She had a lymph node biopsy which revealed microscopic disease. After discussion at tumor board recommendation was for surgery prior to any neoadjuvant treatment. The patient wished mastectomy to be performed. The patient was initially taken to the radiology suite for loc alization of the lymph node which had been biopsied was performed. Additionally radioactive tracer was placed. The patient was then brought to the operative suite. Following induction of anesthesia the [place] counter was used to interrogate the axilla. Minimal radioactivity was identified and therefore 10 mL of water strength methylene blue was injected in the periareolar region and the breast was massaged. Following this the patient was prepped and draped in a sterile fashion. Superior and inferior skin flaps were developed. These were developed down to the chest wall being careful to maintain hemostasis using the electrocautery device as well as the Harmonic scalpel. The breast was then dissected from medial to lateral off the chest wall. Any vessels were identified and cauterize d using the Harmonic scalpel. This was dissected to the region of the axilla. In the axilla several vessels were identified which were clamped and suture ligated. The breast was removed from the chest wall. Using the Cate counter interrogation was performed of the axilla and the lymph node which had been localized was the radioactive lymph node. 10 second count was 1252, 10 second count of the background axilla was 37. The lymph node was sent to radiology and the clip was present in the node. Thus it was determined that the lymph node which was biopsied because the sentinel node. No other blue or radioactive lymph nodes were identified. The wound was well irrigated. A #10 GALLITO drain was placed. The subcutaneous tissues were closed using 3-0 Vicryl suture. This is followed by closure of the skin with 4-0 Monocryl. Lucrecia were placed. The drain was secured using a nylon suture. All instrument and sponge counts were correct at the end of the case. The patient tolerated the procedure in stable condition.
[2022-02-06] MEDS ORDERED: DEXTROSE 5%-0.45% NACL 1,000 ML IV SCH (14:15)
[2022-02-06] MEDS: HYDROmorphone 0.5 MG/0.5 ML SYRINGE IVP PRN ×4 (14:39→15:06)
[2022-02-06] MEDS: fentaNYL (PF) 50 MCG/ML 2 ML AMP IV ONE ×2 (15:24→15:34)
[2022-02-06] MEDS ORDERED: HYDROmorphone 0.5 MG/0.5 ML SYRINGE IVP ONE ×2 (15:50→16:35)
[2022-02-06] MEDS: HYDROmorphone 1 MG/ML 1 ML SYRINGE IVP PRN ×2 (18:15→21:26)
[2022-02-06] MEDS: HEPARIN SODIUM,PORCINE/PF 5,000 UNIT/0.5 ML SYRINGE SQ SCH ×2 (19:34→23:46)
[2022-02-06] MEDS: HYDROcodone/APAP 5-325MG 1 EACH TAB PO PRN ×2 (19:41→23:45)
[2022-02-06] MEDS ORDERED: lisinopriL 20 MG TAB PO SCH (21:15)
[2022-02-06] MEDS ORDERED: INSULIN DETEMIR (LEVEMIR) 100 UNIT/ML SYR SQ SCH (21:30)
[2022-02-06 21:40] LABS: Glucose,Whole Blood 311 mg/dL (70-110)
[2022-02-07] MEDS: HYDROmorphone 1 MG/ML 1 ML SYRINGE IVP PRN ×2 (01:33→09:05)
[2022-02-07] MEDS: HYDROcodone/APAP 5-325MG 1 EACH TAB PO PRN ×2 (04:26→08:13)
[2022-02-07 07:42] LABS: Glucose,Whole Blood 149 mg/dL (70-110)
[2022-02-07] MEDS: HEPARIN SODIUM,PORCINE/PF 5,000 UNIT/0.5 ML SYRINGE SQ SCH (08:03)
[2022-02-07 08:14] LABS: Basophils # (A) 0.1 k/uL (0-0.2); Basophils % (A) 1 %; Eosinophils # (A) 0.3 k/uL (0-0.7); Eosinophils % (A) 3 %; HCT 40.6 % (34.0-46.0); HGB 12.9 gm/dL (11.4-16.0); Lymphocytes # (A) 2.4 k/uL (1.0-4.8); Lymphocytes % (A) 28 %; MCHC 31.8 g/dL (31.0-37.0); MCV 88.1 fL (80.0-100.0); Mean Platelet Volume 8.7; Monocytes # (A) 0.4 k/uL (0-1.0); Monocytes % (A) 4 %; Neutrophils # (A) 5.5 k/uL (1.3-7.7); Neutrophils % (A) 63 %; Platelet Count 149 k/uL (150-450); RBC 4.61 m/uL (3.80-5.40); WBC 8.8 k/uL (3.8-10.6)
[2022-02-07] MEDS: INSULIN ASPART (NovoLOG) 100 UNIT/ML VIAL SQ SCH ×2 (08:24→11:23)
[2022-02-07 09:26] VITALS: BP 164/70; PULSE 74; RESP 18; TEMP 97.8
--- NOTE | 2022-02-07 10:42 | P.PN ---
Subjective Progress Note Date: 02/07/22 Principal diagnosis: Postop day #1 right mastectomy with sentinel node biopsy Steffanie is a 66-year-old white female postop day #1 right mastectomy with sentinel node biopsy. She is doing well at this time. Hemoglobin 12.9, white count 8.8. GALLITO output 40 mL serosanguineous. She did have some pain which is controlled at this time. Objective - Vital Signs Vital signs: Vital Signs Temp 97.8 F 02/07/22 09:00 Pulse 74 02/07/22 09:00 Resp 18 02/07/22 09:00 BP 164/70 02/07/22 09:00 Pulse Ox 97 02/07/22 04:30 FiO2 Intake & Output 02/06/22 02/07/22 02/07/22 18:59 06:59 18:59 Intake Total 1150 Output Total 30 40 Balance 1120 -40 Weight 122.8 kg Intake: IV 1150 Output: Drainage 40 Right Chest 40 Estimated Blood Loss 30 Other: # Voids 0 - Constitutional General appearance: Present: cooperative - EENT Eyes: Present: EOMI ENT: Present: hearing grossly normal - Neck Neck: Present: normal ROM - Respiratory Respiratory: bilateral: CTA - Cardiovascular Heart sounds: normal: S1, S2 - Integumentary Integumentary Comment(s): Incision clean and dry right chest wall - Psychiatric Psychiatric: Present: A&O x's 3, appropriate affect, intact judgment & insight - Labs CBC & Chem 7: 02/07/22 07:55 Labs: Abnormal Lab Results - Last 24 Hours (Table) 02/06/22 02/07/22 02/07/22 Range/Units 21:38 07:41 07:55 Plt Count 149 L (150-450) k/uL POC Glucose (mg/dL) 311 H 149 H (70-110) mg/dL Assessment and Plan Assessment: Impression: Stage IB/IIA invasive ductal right breast cancer/ postop day #1 right mastectomy and sentinel node biopsy Plan: Teach patient drain care Discharge home if okay with medicine Follow-up Dr. Pillai 1 week Drain and record GALLITO output twice a day and as needed
--- NOTE | 2022-02-07 10:44 | P.DS ---
Providers Date of admission: 02/07/22 03:26 Attending physician: Stacie Salgado Consults: 02/06/22 14:11 Consult Physician Routine Consulting Provider: Curly Mcgrath Consult Reason/Comments: medical managment Do you want consulting provider notified?: Yes Primary care physician: [facility] Course: Patient underwent a right breast mastectomy and sentinel node biopsy on 02-06-22. She is postoperative day #1. She is doing well at this time. She initially had some difficulty with pain management but this seems to have been resolved. At home she takes morphine twice a day for back pain, and she will use this instead of any prescription for muscle pain medicine at home. Plan - Discharge Summary Discharge Rx Participant: Yes New Discharge Prescriptions: No Action Butalb/Acetaminophen/Caffeine [Fioricet 50-325-40 mg Tablet] 1 tab PO TID PRN PRN Reason: Headache INSULIN LISPRO (humaLOG) [humaLOG] See Protocol SQ AC-TID PRN PRN Reason: Blood Sugar - High Budesonide-Formot 160-4.5 Mcg [Symbicort 160-4.5 Mcg Inhaler] 2 puff INHALATION RT-BID PRN PRN Reason: Shortness Of Breath lisinopriL [Zestril] 40 mg PO HS Insulin Glargine [Lantus Vial] 80 unit SQ HS Pantoprazole [Protonix] 40 mg PO AC-BID #60 tablet. Morphine Sulfate ER [Ms Contin] 30 mg PO Q12H 30 Days #60 tab HYDROcodone/APAP 10-325MG [[place] 10-325] 1 tab PO Q12HR PRN 30 Days #60 tab PRN Reason: Pain Discharge Medication List Butalb/Acetaminophen/Caffeine [Fioricet 50-325-40 mg Tablet] 1 tab PO TID PRN 04/11/14 [History] INSULIN LISPRO (humaLOG) [humaLOG] See Protocol SQ AC-TID PRN 04/14/14 [History] Budesonide-Formot 160-4.5 Mcg [Symbicort 160-4.5 Mcg Inhaler] 2 puff INHALATION RT-BID PRN 10/25/15 [History] lisinopriL [Zestril] 40 mg PO HS 04/04/16 [History] Insulin Glargine [Lantus Vial] 80 unit SQ HS 05/02/16 [History] Pantoprazole [Protonix] 40 mg PO AC-BID #60 tablet. 12/19/16 [Rx] HYDROcodone/APAP 10-325MG [[place] 10-325] 1 tab PO Q12HR PRN 30 Days #60 tab 01/24/22 [Rx] Morphine Sulfate ER [Ms Contin] 30 mg PO Q12H 30 Days #60 tab 01/24/22 [Rx] Follow up Appointment(s)/Referral(s): Stacie Salgado MD [STAFF PHYSICIAN] - 02/16/22 8:20 am Activity/Diet/Wound Care/Special Instructions: Teach patient drain care, drainage and recorded twice a day and this needed May shower after 48 hours Keep chest wrap on at all times unless showering Use incentive spirometer every hour while awake Discharge Disposition: HOME SELF-CARE
[2022-02-07 11:17] LABS: Glucose,Whole Blood 242 mg/dL (70-110)
--- NOTE | 2022-02-07 17:48 | P.CONS ---
History of Present Illness - Reason for Consult Consult date: 02/07/22 Medical management Requesting physician: Stacie Salgado - Chief Complaint Right mastectomy - History of Present Illness This is a pleasant 66-year-old patient was chronic stable medical conditions include COPD, diabetes, GERD, hypertension, hyperlipidemia, kidney stones, chronic low back pain, numbness and tingling bilateral lower extremities, chronic pain. Patient underwent right mastectomy with sentinel node biopsy yesterday. Has a drain in place. Chest for dressing. Pain at the operative site. No nausea vomiting. Did ambulate to the bathroom. Oral intake fair. Review of systems: GEN.: Tired EYES: None HEENT: None NECK: None RESPIRATORY: None CARDIOVASCULAR: None GASTROINTESTINAL: None GENITOURINARY: None MUSCULOSKELETAL: Some joint pains LYMPHATICS: None HEMATOLOGICAL: None PSYCHIATRY: None NEUROLOGICAL: Some neuropathy Past medical history to include: COPD, diabetes, GERD, hypertension, hyperlipidemia, kidney stones, chronic back pain, numbness and tingling in the both lower extremity, right breast cancer Social history: Patient smoked a pack a day from 82 and stopped in 1981. No alcohol. . Family history: Cancer of the throat: Liver and brain. Physical examination: VITAL SIGNS: 97.8, 74, 18, 164.70, 97% room air GENERAL: BMI 49.5, sitting it is a bit elevated, bit tired. CHEST wall: Dressing across the chest with GALLITO drain EYES: Pupils equal. Conjunctiva normal. HEENT: External appearance of nose and ears normal, oral cavity grossly normal. NECK: JVD not raised; masses not palpable. HEART: Heart sounds distant; no edema. LUNGS: Respiratory rate normal; distant breath sounds. ABDOMEN: Soft, nontender, liver spleen not palpable, no masses palpable. PSYCH: Alert and oriented x3; mood and affect normal. MUSCULOSKELETAL:No Clubbing/cyanosis;muscles-grossly intact NEUROLOGICAL: Cranial nerves grossly intact; no facial asymmetry, power and sensation grossly intact. LYMPHATICS: No lymph nodes palpable in the axilla and neck INVESTIGATIONS, reviewed in the clinical context: White count 8.8 hemoglobin 12.9 platelets 149 Accu-Cheks noted Assessment and plan: -Right mastectomy with sentinel biopsy. Pain control. Dressing. Drain in place. Follow with Dr. Omalley fall -Morbid obesity BMI 49.5. Weight loss measures -Diabetes mellitus type 2 Insulin Lantus 80 units subcu daily at bedtime. Sliding scale insulin -COPD in a previous smoker Symbicort 160/4.52 puffs twice a day -Chronic pain syndrome MS Contin 30 mg every 12 [place] 10 one tablet every 12 when necessary -GERD Protonix 40 mg twice a day -Essential hypertension Zestril 40 mg daily at bedtime Home medications resumed. Diabetic diet with following Accu-Chek. Wound care per Dr. Lyssa patel. Patient to follow-up with her family doctor point discharge. Care was discussed questions answered. Thank you Past Medical History Past Medical History: Asthma, Cancer, COPD, Diabetes Mellitus, GERD/Reflux, Hyperlipidemia, Hypertension, Musculoskeletal Disorder Additional Past Medical History / Comment(s): Migraine headaches. Hx kidney stone. Chronic back pain, numbness and tingling bilateral lower extremities. RECENT RT BREAST CANCER DX History of Any Multi-Drug Resistant Organisms: MRSA Year Discovered:: 2011 MDRO Source:: UNK Past Surgical History: Appendectomy, Back Surgery, Breast Surgery, Cholecystectomy, Joint Replacement, Orthopedic Surgery Additional Past Surgical History / Comment(s): Fusion w/ kane also back surgery 04/21/2019. Left Shoulder Replacement, Right knee replacement, plate in right wrist, left thumb joint repair, Right CTR, Right shoulder arthroscopy. micheal cataracts, LARYNGOSCOPY, November 2016 Cervical Plate, PAIN CLINIC PROCEDURES, right masectomy Past Anesthesia/Blood Transfusion Reactions: No Reported Reaction Past Psychological History: No Psychological Hx Reported Smoking Status: Former smoker Past Alcohol Use History: None Reported Additional Past Alcohol Use History / Comment(s): SMOKED 1PPD, STARTED SMOKING AGE 17, AND QUIT IN 1981. Past Drug Use History: None Reported - Past Family History Brother(s) Family Medical History: Cancer, Myocardial Infarction ([place]) Father Family Medical History: Cancer Additional Family Medical History / Comment(s): throat, colon, liver, and brain cancer. Mother Family Medical History: Myocardial Infarction ([place]) Additional Family Medical History / Comment(s): at 54 of [place]. Medications and Allergies Home Medications Medication Instructions Recorded Confirmed Type Butalb/Acetaminophen/Caffeine 1 tab PO TID PRN 04/11/14 02/02/22 History [Fioricet 50-325-40 mg Tablet] INSULIN LISPRO (humaLOG) [humaLOG] See Protocol SQ AC-TID PRN 04/14/14 02/02/22 History Budesonide-Formot 160-4.5 Mcg 2 puff INHALATION RT-BID PRN 10/25/15 02/02/22 History [Symbicort 160-4.5 Mcg Inhaler] lisinopriL [Zestril] 40 mg PO HS 04/04/16 02/02/22 History Insulin Glargine [Lantus Vial] 80 unit SQ HS 05/02/16 02/02/22 History Pantoprazole [Protonix] 40 mg PO AC-BID #60 tablet. 12/19/16 02/02/22 Rx HYDROcodone/APAP 10-325MG [[place] 1 tab PO Q12HR PRN 30 Days #60 tab 01/24/22 02/02/22 Rx 10-325] Morphine Sulfate ER [Ms Contin] 30 mg PO Q12H 30 Days #60 tab 01/24/22 02/02/22 Rx Allergies Allergy/AdvReac Type Severity Reaction Status Date / Time gabapentin AdvReac Confusion Verified 02/06/22 07:13 ibuprofen [From Motrin] AdvReac Abdominal Verified 02/06/22 07:13 Pain and vomiting pregabalin [From Lyrica] AdvReac Confusion Verified 02/06/22 07:13 Physical Exam Vitals: Vital Signs Temp Pulse Pulse Resp BP Pulse Ox 02/07/22 09:00 97.8 F 74 18 164/70 02/07/22 05:03 171/72 02/07/22 04:30 98.0 F 72 19 193/81 97 02/06/22 23:51 97.8 F 80 18 156/65 96 02/06/22 20:00 98.2 F 83 18 175/71 96 02/06/22 18:39 98.2 F 79 17 157/72 96 02/06/22 17:15 77 16 160/77 96 02/06/22 16:55 76 16 163/72 97 02/06/22 16:30 80 17 200/88 97 02/06/22 16:15 66 16 162/68 98 02/06/22 15:45 82 16 165/70 97 02/06/22 15:30 70 16 175/75 97 02/06/22 15:15 78 18 168/72 96 02/06/22 15:00 71 18 166/71 96 02/06/22 14:45 72 18 166/71 98 02/06/22 14:30 69 18 171/74 98 02/06/22 14:22 97.1 F L 69 18 188/86 98 Intake and Output 02/06/22 02/07/22 02/07/22 22:59 06:59 14:59 Intake Total 100 Output Total 40 Balance 60 Intake: IV 100 Output: Drainage 40 Right Chest 40 Other: # Voids 3 0 Weight 122.8 kg Results CBC & Chem 7: 02/07/22 07:55 Labs: Abnormal Lab Results - Last 24 Hours (Table) 02/06/22 02/07/22 02/07/22 Range/Units 21:38 07:41 07:55 Plt Count 149 L (150-450) k/uL POC Glucose (mg/dL) 311 H 149 H (70-110) mg/dL
== END 2022-02-07 11:37 | disposition home or self-care (01) ==
LOC: OR 06:48 → 4FBP 14:22 → OR 02-07 03:26
PROVIDERS: ADMIT Surgery; ATTEND Surgery
DX: C50.211 Malignant neoplasm of upper-inner quadrant of right female breast (principal); J44.9 Chronic obstructive pulmonary disease, unspecified; E11.9 Type 2 diabetes mellitus without complications; K21.9 Gastro-esophageal reflux disease without esophagitis; I10 Essential (primary) hypertension; E78.5 Hyperlipidemia, unspecified; Z87.442 Personal history of urinary calculi; Z68.42 Body mass index [BMI] 45.0-49.9, adult; R20.0 Anesthesia of skin; R20.2 Paresthesia of skin; Z87.891 Personal history of nicotine dependence; Z80.0 Family history of malignant neoplasm of digestive organs; Z80.8 Family history of malignant neoplasm of other organs or systems; Z90.49 Acquired absence of other specified parts of digestive tract; Z98.890 Other specified postprocedural states; F41.9 Anxiety disorder, unspecified; F32.A Depression, unspecified; G43.909 Migraine, unspecified, not intractable, without status migrainosus; Z86.14 Personal history of Methicillin resistant Staphylococcus aureus infection; Z96.612 Presence of left artificial shoulder joint; Z96.651 Presence of right artificial knee joint; Z98.42 Cataract extraction status, left eye; Z98.41 Cataract extraction status, right eye; Z79.4 Long term (current) use of insulin; Z79.891 Long term (current) use of opiate analgesic; Z17.0 Estrogen receptor positive status [ER+]; Z79.51 Long term (current) use of inhaled steroids; Z79.899 Other long term (current) drug therapy; Z88.8 Allergy status to other drugs, medicaments and biological substances; Z91.041 Radiographic dye allergy status; E66.01 Morbid (severe) obesity due to excess calories; G89.4 Chronic pain syndrome; Z82.49 Family history of ischemic heart disease and other diseases of the circulatory system
CPT/HCPCS: 85025 ×2; 83036; 76098; 19285; 38792; 19303; 38525; G0378; A9520; J2250; J1100; J2405; J0690; J2001 ×2; Q9968; J3010; J1170 ×3; J0330; J2704; J1644 ×2

== ENCOUNTER → 2022-02-16 | Outpatient (CLI) | payer MEDICARE, OTHER ==
[2022-02-16 09:42] VITALS: BP 194/117; PULSE 91; RESP 18; TEMP 98.1
--- NOTE | 2022-02-16 09:55 | P.PN ---
Progress Note - Text Progress Note Date: 02/16/22 Steffanie is a 66 year old white female seen in consultation for Dr. Yoli Dior regarding an abnormality in her right breast. She had a bilateral mammogram on 12-27-21 which showed a lesion at the 12 oclock position. She had an ultrasound which confirmed this it was 2.4 cm in size. The patient noted a mass in her right breast several weeks ago which led to the mammogram and the ultrasound. The spot had not changed in size and it was not painful. She has never had any surgery on her breast. She was not complaining of any trauma or infection in the breast. She had a core biopsy positive for invasive ductal cancer. On 02-06-22 she underwent a right mastectomy and SNB. Pathology revealed invasive ductal carcinoma grade 2 with focal high-grade DCIS. The nipple was involved by high-grade DCIS and focal features suggestive of a focus of Paget's disease. All margins were negative for in situ or invasive cancer. The sentinel node which had been previously sampled to show micrometastatic disease. No additional lymph nodes were identified at surgery of suspicion were removed. The patient was seen by Dr. Yancey preprocedure and will have hormone therapy. They will make a decision regarding radiation therapy. Physical Exam: Lungs clear Heart regular rate and rhythm Incision clean and dry GALLITO output minimal last 2 days/ serous in nature Impression: Patient doing well postoperative. Follow-up with medical oncology Follow-up with radiation oncology Plan: Removed GALLITO drain Remove oriana follow up in 4 months Follow up sooner if any questions or concerns We note the patient has a positive micrometastatic deposit in her lymph node and she is following with medical and radiation oncology at this time, we have not recommended further surgical intervention at this time Dr. Yoli Dior
== END ==
LOC: WWCWWP 08:17
PROVIDERS: ATTEND Surgery
DX: C50.211 Malignant neoplasm of upper-inner quadrant of right female breast (principal); Z90.11 Acquired absence of right breast and nipple; Z88.6 Allergy status to analgesic agent; Z88.8 Allergy status to other drugs, medicaments and biological substances; Z87.891 Personal history of nicotine dependence

== ENCOUNTER → 2022-03-01 | Outpatient (CLI) | payer MEDICARE, OTHER ==
[2022-03-01 10:17] VITALS: BP 209/114; PULSE 88; RESP 20; TEMP 97.9
--- NOTE | 2022-03-01 10:33 | P.PN ---
Progress Note - Text Progress Note Date: 03/01/22 Steffanie is a 66 year old white female status post right mastectomy and SNB on 02-06-22. Her pathology showed a micrometastatic deposit in the node. Invasive ductal carcinoma 3 by 3 cm in size, DCIS, and LCIS. all margins negative. She did develop a seroma postprocedure. Otherwise she is doing well. Examination: Lungs: Clear Heart: Regular rate and rhythm Incision: Clean and dry, seroma present Aspiration of seroma: Area of concern was prepped using alcohol. Foreign 20 mL of fluid were removed. The fluid was serosanguineous in nature. The seroma resolved. An 18-gauge needle on a 60 mL syringe was used to aspirate the seroma. Patient is going to follow up with medical oncology today. She will most likely not require any radiation therapy at this time. She will follow up here in 2 weeks to reevaluate the seroma. CC: Dr. Russell
== END ==
LOC: WWCWWP 09:28
PROVIDERS: ATTEND Surgery
DX: C50.211 Malignant neoplasm of upper-inner quadrant of right female breast (principal); L76.34 Postprocedural seroma of skin and subcutaneous tissue following other procedure; Z90.11 Acquired absence of right breast and nipple; Z88.6 Allergy status to analgesic agent; Z88.8 Allergy status to other drugs, medicaments and biological substances; Z87.891 Personal history of nicotine dependence

== ENCOUNTER → 2022-03-15 | Outpatient (CLI) | payer MEDICARE, OTHER ==
[2022-03-15 16:11] VITALS: BP 207/117; PULSE 84; RESP 18; TEMP 98
--- NOTE | 2022-03-15 16:23 | P.PN ---
Progress Note - Text Progress Note Date: 03/15/22 Steffanie is a 66 year old white female status post right mastectomy and SNB on 02-06-22. Her pathology showed a micrometastatic deposit in the node. Invasive ductal carcinoma 3 by 3 cm in size, DCIS, and LCIS. all margins negative. She did develop a seroma postprocedure. Otherwise she is doing well. Examination: Lungs: Clear Heart: Regular rate and rhythm Incision: Clean and dry, seroma present Aspiration of seroma: Area of concern was prepped using alcohol. 90 mL of fluid were removed. The fluid was serosanguineous in nature. The seroma resolved. An 18-gauge needle on a 60 mL syringe was used to aspirate the seroma. Patient is going to follow up with medical oncology today. She was seen by radiation oncology and they are going to give her radiation therapy. She is not recommended to have any chemotherapy. She follows with medical oncology after this. She will follow up here in 2 weeks to reevaluate the seroma. note from radiation oncology 03-01-22 patient will have radiation therapy starting next week follow up in three weeks CC: Dr. Russell
== END ==
LOC: WWCWWP 15:56
PROVIDERS: ATTEND Surgery
DX: L76.34 Postprocedural seroma of skin and subcutaneous tissue following other procedure (principal); C50.211 Malignant neoplasm of upper-inner quadrant of right female breast; Z90.11 Acquired absence of right breast and nipple; Z88.6 Allergy status to analgesic agent; Z88.8 Allergy status to other drugs, medicaments and biological substances; Z87.891 Personal history of nicotine dependence

== ENCOUNTER → 2022-03-21 | Outpatient (CLI) | payer MEDICARE, OTHER ==
[2022-03-21 10:36] VITALS: BP 223/104; PULSE 76; RESP 18; TEMP 98.1
--- NOTE | 2022-03-21 13:34 | P.PAINPG ---
PQRS Measure Charge Sheet Comment: A 66 yr old female with a history of severe and chronic low back pain secondary to lumbar degenerative disc diseases and lumbar spondylosis with facet arthropathy presents today for medication refills. Pain level is 6/10 in intensity, constant, sharp/ stabbing in character, . Pain is dull/ achy/ sharp/ shooting towards . Pain is provoked by bending/ standing for periods of 10 min or more, or lifting. Pain is alleviated with PT in 2020 for 3 weeks, she "thinks" massage was integrated with PT, heat, medications, [place] patches, repositioning and rest. 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 Patient is currently on MS 30mg #60, [place] 10/325mg #60 Patient denies any side effects of the medication(s), denies excessive drowsiness or sleepiness, denies suicidal ideation and reports that the current pain medication is helping to control the pain and improve activities of daily living. Patient denies any motor or sensory deficits. Patient denies any fever or night sweats, denies any change in the bowel movements or urination. Physical Examination: -Constitutional: Cooperative. Not in acute distress . - Neurologic: Cranial nerve II to XII intact. No focal neurological deficits. - Psychatric: Alert & oriented x 3. Matching mood & appropriate affect. Judgment and insight intact. - Musculoskeletal: Cervical spine: Muscle bulk/ tone/ strength in the bilateral upper extremities normal Vertebral body tenderness to palpation over Spurling test positive Distraction test positive Facet loading test positive Thoracic spine Muscle bulk / tone/ strength in the bilateral paraspinal muscles normal Vertebral body tender to palpation over Facet loading test positive Lumbar spine: Motor bulk/ tone/ strength lower extremities , thigh and legs : 5/5 Deep tendon reflexes : Normal Knee Jerk. Normal Ankle Jerk . Vertebral body tenderness to palpation over L3, L4, L5 Lumbar Facet Loading Test positive Straight Leg Raise: positive at 30 degrees right side/ left side Gaenslen's Test positive Sacral spine : Severe tenderness over the Sacroiliac joint: right side / left side Range of motion: Flexion of the lumbar spine <60 degrees Range of motion: Extension of the lumbar spine <20 degrees Gaenslen's Test positive Alonzo's Test positive Tiny test: positive right side / left side Thigh Thrust Test Sacral Thrust Test Assessment and plan: Chronic low back pain secondary to lumbar degenerative disc disease , lumbar spondylosis with facet arthropathy without myelopathy Chronic and current use of high-risk medication (Opioids). The patient was counseled about risk of opioid use, psychological risk associated with opioids and was orally counseled to not overuse , divert or sell medications. Pt is to store medication in a safe location. The patient is counseled against driving while using narcotic medications and also not to use alcohol or any illicit recreational drugs. Patient verbalized understanding that the lack of compliance will result in failure to renew narcotic prescription(s) as well as possible discharge from the clinic Diagnoses, prognosis and treatment options including but not limited to physical therapy, surgical interventions, interventional therapies and medication management including narcotics and adjuvant medication were discussed. All patient questions answered MAPS reviewed and it was appropriate. Prescription refill for Morphine Sulfate 30mg #60, [place] 10/325mg #60 w 1 refill I have spent less than 30 minutes on patient care today. Dr Dougherty was available by phone for the evaluation of this patient. The time was used to review the medical records including relevant urine studies and Prescription history (MAPs), review of the available imaging, evaluation and examination of the patient, coordination of care with the medical staff and if applicable referring physicians, as well as creation of the medical record PQRS Narrative: Smoking Status Former smoker Narcotic Agreement Date Signed 05/17/21 Hx Alcohol Use (MH) No Home Medications: Ambulatory Orders Butalb/Acetaminophen/Caffeine [Fioricet 50-325-40 mg Tablet] 1 tab PO TID PRN 04/11/14 INSULIN LISPRO (humaLOG) [humaLOG] See Protocol SQ AC-TID PRN 04/14/14 Budesonide-Formot 160-4.5 Mcg [Symbicort 160-4.5 Mcg Inhaler] 2 puff INHALATION RT-BID PRN 10/25/15 lisinopriL [Zestril] 40 mg PO HS 04/04/16 Insulin Glargine [Lantus Vial] 80 unit SQ HS 05/02/16 Pantoprazole [Protonix] 40 mg PO AC-BID #60 tablet. 12/19/16 HYDROcodone/APAP 10-325MG [[place] 10-325] 1 tab PO Q12HR PRN 30 Days #60 tab 03/21/22 HYDROcodone/APAP 10-325MG [[place] 10-325] 1 tab PO Q12HR PRN 30 Days #60 tab 03/21/22 Morphine Sulfate ER [Ms Contin] 30 mg PO Q12H 30 Days #60 tab 03/21/22 Morphine Sulfate ER [Ms Contin] 30 mg PO Q12H 30 Days #60 tab 03/21/22 Controlled Substance Measures - Controlled Substance Measures Is patient prescribed a controlled substance at discharge?: Yes When asked, does pt state using other controlled substances?: No If prescribed controlled substance>3 days was MAPS reviewed?: Yes If Rx opioid, was Start Talking consent form obtained?: Yes Was information provided regarding opioid addiction?: Yes
== END ==
LOC: PNWHC3 09:09
PROVIDERS: ATTEND Specialist
DX: M51.36 Other intervertebral disc degeneration, lumbar region (principal); M47.816 Spondylosis without myelopathy or radiculopathy, lumbar region; G89.29 Other chronic pain; Z79.891 Long term (current) use of opiate analgesic; Z87.891 Personal history of nicotine dependence; Z88.6 Allergy status to analgesic agent; Z88.8 Allergy status to other drugs, medicaments and biological substances
CPT/HCPCS: 99211

== ENCOUNTER → 2022-05-16 | Outpatient (CLI) | payer MEDICARE, OTHER ==
[2022-05-16 10:30] VITALS: BP 205/95; PULSE 81; RESP 18; TEMP 98.2
--- NOTE | 2022-05-16 14:53 | P.PAINPG ---
PQRS Measure Charge Sheet Comment: A 66 yr old female with a history of severe and chronic low back pain secondary to lumbar degenerative disc diseases and lumbar spondylosis with facet arthropathy without myelopathy presents today for medication refills. Pain level is currently at 8/10 in intensity, constant, localized in R lower back, sharp in character w shooting tingling towards RLE. Pain is provoked by activity, lifting/ bending. Pain is alleviated with PT years ago, massages by , heat, repositioning and rest. Pt has elevated BP readings greater than 180 systolic and 95 diastolic w 3 readings on alternating extremities. Pt states she took her BP meds this morning. Urged pt to follow w ER to manage BP. Dangers of elevated BP discussed and pt acknowledged understanding. Interventional pain procedures completed include FOZIA L4-5 in 2019 Patient is currently on [place], Morphine Patient denies any side effects of the medication(s), denies excessive drowsiness or sleepiness, denies suicidal ideation and reports that the current pain medication is helping to control the pain and improve activities of daily living. Patient denies any motor or sensory deficits. Patient denies any fever or night sweats, denies any change in the bowel movements or urination. Physical Examination: -Constitutional: Cooperative. Not in acute distress . - Neurologic: Cranial nerve II to XII intact. No focal neurological deficits. - Psychatric: Alert & oriented x 3. Matching mood & appropriate affect. Judgment and insight intact. - Musculoskeletal: Cervical spine: Muscle bulk/ tone/ strength in the bilateral upper extremities normal Vertebral body tenderness to palpation over Spurling test positive Distraction test positive Facet loading test positive Thoracic spine Muscle bulk / tone/ strength in the bilateral paraspinal muscles normal Vertebral body tender to palpation over Facet loading test positive Lumbar spine: Motor bulk/ tone/ strength lower extremities , thigh and legs : 5/5 Deep tendon reflexes : Normal Knee Jerk. Normal Ankle Jerk . Vertebral body tenderness to palpation over L4 Lumbar Facet Loading Test positive Straight Leg Raise: positive at 30 degrees right side/ left side Gaenslen's Test positive Sacral spine : Severe tenderness over the Sacroiliac joint: right side / left side Range of motion: Flexion of the lumbar spine <60 degrees Range of motion: Extension of the lumbar spine <20 degrees Gaenslen's Test positive Alonzo's Test positive Tiny test: positive right side / left side Thigh Thrust Test Sacral Thrust Test Assessment and plan: Chronic low back pain secondary to lumbar degenerative disc disease , lumbar spondylosis with facet arthropathy without myelopathy Recommendation of FOZIA L4-L5. May need a series of injections, up to 3 within a 6 mo period, for optimal pain relief. Risks, benefits of procedure discussed and pt verbalized understanding. Denies anticoagulant use and admits to medical history of diabetes. Protocol for discontinuation/ continuation of medications erika procedure discussed. Pt agreed to go to ER to follow up with physicians for hypertensive urgency. She also stated she has a follow up appt setup w her PCP "in a few days." Chronic and current use of high-risk medication (Opioids). The patient was counseled about risk of opioid use, psychological risk associated with opioids and was orally counseled to not overuse , divert or sell medications. Pt is to store medication in a safe location. The patient is counseled against driving while using narcotic medications and also not to use alcohol or any illicit recreational drugs. Patient verbalized understanding that the lack of compliance will result in failure to renew narcotic prescription(s) as well as possible discharge from the clinic Diagnoses, prognosis and treatment options including but not limited to physical therapy, surgical interventions, interventional therapies and medication management including narcotics and adjuvant medication were discussed. All patient questions answered MAPS reviewed and it was appropriate. Prescription refill for [place] 10/325mg #60, MS ER 30mg #60 w 1 RF I have spent less than 30 minutes on patient care today. Dr Dougherty was availab le by phone for the evaluation of this patient. The time was used to review the medical records including relevant urine studies and Prescription history (MAPs), review of the available imaging, evaluation and examination of the patient, coordination of care with the medical staff and if applicable referring physicians, as well as creation of the medical record - Pain Location Right Lower Back Non-Pharmacological Interventions: Heat, Inactivity, Massage, Position/Reposition, Sitting Pharmacological Interventions: Scheduled Medication PQRS Narrative: Smoking Status Former smoker Narcotic Agreement Date Signed 05/17/21 Hx Alcohol Use (MH) No Home Medications: Ambulatory Orders Butalb/Acetaminophen/Caffeine [Fioricet 50-325-40 mg Tablet] 1 tab PO TID PRN 04/11/14 INSULIN LISPRO (humaLOG) [humaLOG] See Protocol SQ AC-TID PRN 08/27/14 Budesonide-Formot 160-4.5 Mcg [Symbicort 160-4.5 Mcg Inhaler] 2 puff INHALATION RT-BID PRN 10/25/15 lisinopriL [Zestril] 40 mg PO HS 04/04/16 Insulin Glargine [Lantus Vial] 80 unit SQ HS 05/02/16 Pantoprazole [Protonix] 40 mg PO AC-BID #60 tablet. 12/19/16 HYDROcodone/APAP 10-325MG [[place] 10-325] 1 tab PO Q12HR PRN 30 Days #60 tab 05/16/22 HYDROcodone/APAP 10-325MG [[place] 10-325] 1 tab PO Q12HR PRN 30 Days #60 tab 05/16/22 Morphine Sulfate ER [Ms Contin] 30 mg PO Q12H 30 Days #60 tab 05/16/22 Morphine Sulfate ER [Ms Contin] 30 mg PO Q12H 30 Days #60 tab 05/16/22 Controlled Substance Measures - Controlled Substance Measures Is patient prescribed a controlled substance at discharge?: Yes When asked, does pt state using other controlled substances?: No If prescribed controlled substance>3 days was MAPS reviewed?: Yes If Rx opioid, was Start Talking consent form obtained?: Yes Was information provided regarding opioid addiction?: Yes
== END ==
LOC: PNWHC3 09:31
PROVIDERS: ATTEND Specialist
DX: M51.36 Other intervertebral disc degeneration, lumbar region (principal); M54.50 Low back pain, unspecified; G89.29 Other chronic pain; M47.816 Spondylosis without myelopathy or radiculopathy, lumbar region; E11.9 Type 2 diabetes mellitus without complications; Z87.891 Personal history of nicotine dependence; Z79.4 Long term (current) use of insulin
CPT/HCPCS: 99211

== ENCOUNTER → 2022-07-11 | Outpatient (CLI) | payer MEDICARE, OTHER ==
[2022-07-11 10:16] VITALS: BP 187/90; PULSE 77; RESP 18; TEMP 98.1
--- NOTE | 2022-07-11 12:40 | P.PN ---
Subjective Progress Note Date: 07/11/22 this is follow up visit for this 66 yr old female with a history of severe and chronic low back pain, secondary to lumbar degenerative disc diseases, and lumbar spondylosis with facet arthropathy without myelopathy, presents today for medication refills. Pain level is currently at 8/10 in intensity, constant, localized in R lower back, sharp in character w shooting tingling towards the Right buttock. Pain is provoked by activity, lifting/ bending. Pain is alleviated with PT years ago, massages by , heat, repositioning and rest. Pt has elevated BP readings greater than 180 systolic and 95 diastolic w 3 readings on alternating extremities. Pt states that she is following up with her primary care physician regarding her blood pressure issue. Dangers of elevated BP discussed and pt acknowledged understanding. Interventional pain procedures completed include FOZIA L4-5 in 2019 Patient is currently on [place], Morphine Patient denies any side effects of the medication(s), denies excessive drowsiness or sleepiness, denies suicidal ideation and reports that the current pain medication is helping to control the pain and improve activities of daily living. Patient denies any motor or sensory deficits. Patient denies any fever or night sweats, denies any change in the bowel movements or urination. Physical Examination: -Constitutional: Cooperative. Not in acute distress . - Neurologic: Cranial nerve II to XII intact. No focal neurological deficits. - Psychatric: Alert & oriented x 3. Matching mood & appropriate affect. Judgment and insight intact. - Musculoskeletal: Cervical spine: Muscle bulk/ tone/ strength in the bilateral upper extremities normal Vertebral body tenderness to palpation over Spurling test positive Distraction test positive Facet loading test positive Thoracic spine Muscle bulk / tone/ strength in the bilateral paraspinal muscles normal Vertebral body tender to palpation over Facet loading test positive Lumbar spine: Motor bulk/ tone/ strength lower extremities , thigh and legs : 5/5 Deep tendon reflexes : Normal Knee Jerk. Normal Ankle Jerk . Vertebral body tenderness to palpation over L4 Lumbar Facet Loading Test positive Straight Leg Raise: positive at 30 degrees right side/ left side Gaenslen's Test positive Sacral spine : Severe tenderness over the Sacroiliac joint: right side / left side Range of motion: Flexion of the lumbar spine <60 degrees Range of motion: Extension of the lumbar spine <20 degrees Gaenslen's Test positive Alonzo's Test positive . Tiny test: positive right side / left side Thigh Thrust Test Sacral Thrust Test Assessment and plan: Chronic low back pain secondary to lumbar degenerative disc disease , lumbar spondylosis with facet arthropathy without myelopathy Right sacroiliitis she could Benefit from a right sacroiliac joint steroid injection with fluoroscopy guidance. Pt agreed to go to ER to follow up with physicians for hypertensive urgency. She also stated she has a follow up appt setup w her PCP "in a few days." Chronic and current use of high-risk medication (Opioids). The patient was counseled about risk of opioid use, psychological risk associated with opioids and was orally counseled to not overuse , divert or sell medications. Pt is to store medication in a safe location. The patient is counseled against driving while using narcotic medications and also not to use alcohol or any illicit recreational drugs. Patient verbalized understanding that the lack of compliance will result in failure to renew narcotic prescription(s) as well as possible discharge from the clinic Diagnoses, prognosis and treatment options including but not limited to physical therapy, surgical interventions, interventional therapies and medication management including narcotics and adjuvant medication were d iscussed. All patient questions answered MAPS reviewed and it was appropriate. Urine drug screen checked and it was appropriate Prescription refill for [place] 10/325mg #60, MS ER 30mg #60 w 1 RF Section given prescription for Narcan - Pain Location Right Lower Back Non-Pharmacological Interventions: Heat, Inactivity, Massage, Position/Reposition, Sitting Pharmacological Interventions: Scheduled Medication PQRS Narrative: Smoking Status Former smoker Narcotic Agreement Date Signed 05/17/21 Hx Alcohol Use (MH) No Home Medications: Ambulatory Orders Butalb/Acetaminophen/Caffeine [Fioricet 50-325-40 mg Tablet] 1 tab PO TID PRN 04/11/14 INSULIN LISPRO (humaLOG) [humaLOG] See Protocol SQ AC-TID PRN 04/14/14 Budesonide-Formot 160-4.5 Mcg [Symbicort 160-4.5 Mcg Inhaler] 2 puff INHALATION RT-BID PRN 10/25/15 lisinopriL [Zestril] 40 mg PO HS 04/04/16 Insulin Glargine [Lantus Vial] 80 unit SQ HS 05/02/16 Pantoprazole [Protonix] 40 mg PO AC-BID #60 tablet. 12/19/16 HYDROcodone/APAP 10-325MG [[place] 10-325] 1 tab PO Q12HR PRN 30 Days #60 tab 05/16/22 HYDROcodone/APAP 10-325MG [[place] 10-325] 1 tab PO Q12HR PRN 30 Days #60 tab 05/16/22 Morphine Sulfate ER [Ms Contin] 30 mg PO Q12H 30 Days #60 tab 05/16/22 Morphine Sulfate ER [Ms Contin] 30 mg PO Q12H 30 Days #60 tab 05/16/22 Controlled Substance Measures - Controlled Substance Measures Is patient prescribed a controlled substance at discharge?: Yes When asked, does pt state using other controlled substances?: No If prescribed controlled substance>3 days was MAPS reviewed?: Yes If Rx opioid, was Start Talking consent form obtained?: Yes Was information provided regarding opioid addiction?: Yes Objective - Vital Signs Vital signs: Vital Signs Temp 98.1 F 07/11/22 09:27 Pulse 77 07/11/22 09:27 Resp 18 07/11/22 09:27 BP 187/90 07/11/22 09:27 Pulse Ox 98 07/11/22 09:27 FiO2 Intake & Output 07/10/22 07/11/22 07/11/22 18:59 06:59 18:59 Weight 108.862 kg
== END | disposition home or self-care (01) ==
LOC: PNWHC3 08:58
PROVIDERS: ATTEND Specialist
DX: M51.36 Other intervertebral disc degeneration, lumbar region (principal); M46.96 Unspecified inflammatory spondylopathy, lumbar region; M47.896 Other spondylosis, lumbar region
CPT/HCPCS: 80307; G0482; G0463; 99212

== ENCOUNTER → 2022-09-05 | Outpatient (CLI) | payer MEDICARE, OTHER ==
[2022-09-05 13:13] VITALS: BP 177/85; PULSE 86; RESP 18; TEMP 98.3
--- NOTE | 2022-09-05 15:08 | P.PAINPG ---
PQRS Measure Charge Sheet Comment: A 67 yr old female with a history of severe and chronic low back pain secondary to lumbar DDD and spondylosis with facet arthropathy without myelopathy presents today for medication refills. Pain level is provoked at 8 /10 in intensity, constant, localized in the lumbar spine, sharp, stabbing in character w shooting towards the R hip. Pain is provoked by ice. Pain is alleviated with heat, medications, repositioning and rest. Chiropractors refused treatment due to hardware placement. Interventional pain procedures completed include R SI injection (2019), LESI (2019) Patient is currently on [place], MS IR Patient denies any side effects of the medication(s), denies excessive drowsiness or sleepiness, denies suicidal ideation and reports that the current pain medication is helping to control the pain and improve activities of daily living. Patient denies any motor or sensory deficits. Patient denies any fever or night sweats, denies any change in the bowel movements or urination. Physical Examination: -Constitutional: Cooperative. Not in acute distress . - Neurologic: Cranial nerve II to XII intact. No focal neurological deficits. - Psychatric: Alert & oriented x 3. Matching mood & appropriate affect. Judgment and insight intact. - Musculoskeletal: Cervical spine: Muscle bulk/ tone/ strength in the bilateral upper extremities normal Vertebral body tenderness to palpation over Spurling test positive Distraction test positive Facet loading test positive Thoracic spine Muscle bulk / tone/ strength in the bilateral paraspinal muscles normal Vertebral body tender to palpation over Facet loading test positive Lumbar spine: Motor bulk/ tone/ strength lower extremities , thigh and legs : 5/5 Deep tendon reflexes : Normal Knee Jerk. Normal Ankle Jerk . Vertebral body tenderness to palpation over Lumbar Facet Loading Test positive Straight Leg Raise: positive at 30 degrees right side/ left side Gaenslen's Test positive Sacral spine : Severe tenderness over the Sacroiliac joint: right side / left side Range of motion: Flexion of the lumbar spine <60 degrees Range of motion: Extension of the lumbar spine <20 degrees Gaenslen's Test positive R Tiny test: positive right side / left side R mild Thigh Thrust Test R Sacral Thrust Test Assessment and plan: Chronic low back pain secondary to lumbar degenerative disc disease, spondylosis with facet arthropathy without myelopathy Recommendation of R SI injection. May need a series, up to every 3 mo, for optimal pain relief. Risks, benefits of procedure discussed and pt verbalized understanding. Denies anticoagulant use or medical history of diabetes. Chronic and current use of high-risk medication (Opioids). The patient was counseled about risk of opioid use, psychological risk associated with opioids and was orally counseled to not overuse , divert or sell medications. Pt is to store medication in a safe location. The patient is counseled against driving while using narcotic medications and also not to use alcohol or any illicit recreational drugs. Patient verbalized understanding that the lack of compliance will result in failure to renew narcotic prescription(s) as well as possible discharge from the clinic Diagnoses, prognosis and treatment options including but not limited to physical therapy, surgical interventions, interventional therapies and medication management including narcotics and adjuvant medication were discussed. All patient questions answered UDS from 07/11/22 reviewed and consistent. MAPS reviewed and it was appropriate. Prescription refill for [place] 10/325mg #60, MS ER 30mg #60 w 1 RF. I have spent less than 30 minutes on patient care today. Dr Dougherty was available by phone for the evaluation of this patient. The time was used to review the medical records including relevant urine studies and Prescription history (MAPs), review of the available imaging, evaluation and examination of the patient, coordination of care with the medical staff and if applicable referring physicians, as well as creation of the medical record PQRS Narrative: Smoking Status Former smoker Narcotic Agreement Date Signed 05/17/21 Hx Alcohol Use (MH) No Home Medications: Ambulatory Orders Butalb/Acetaminophen/Caffeine [Fioricet 50-325-40 mg Tablet] 1 tab PO TID PRN 04/11/14 INSULIN LISPRO (humaLOG) [humaLOG] See Protocol SQ AC-TID PRN 04/14/14 Budesonide-Formot 160-4.5 Mcg [Symbicort 160-4.5 Mcg Inhaler] 2 puff INHALATION RT-BID PRN 10/25/15 lisinopriL [Zestril] 40 mg PO HS 04/04/16 Insulin Glargine [Lantus Vial] 80 unit SQ HS 05/02/16 Pantoprazole [Protonix] 40 mg PO AC-BID #60 tablet. 12/19/16 Naloxone HCl [Narcan] 4 mg NASAL ONCE PRN #2 each 07/11/22 HYDROcodone/APAP 10-325MG [[place] 10-325] 1 tab PO Q12HR PRN 30 Days #60 tab 09/05/22 HYDROcodone/APAP 10-325MG [[place] 10-325] 1 tab PO Q12HR PRN 30 Days #60 tab 09/05/22 Morphine Sulfate ER [Ms Contin] 30 mg PO Q12H 30 Days #60 tab 09/05/22 Morphine Sulfate ER [Ms Contin] 30 mg PO Q12H 30 Days #60 tab 09/05/22 Controlled Substance Measures - Controlled Substance Measures Is patient prescribed a controlled substance at discharge?: Yes When asked, does pt state using other controlled substances?: No If prescribed controlled substance>3 days was MAPS reviewed?: Yes If Rx opioid, was Start Talking consent form obtained?: Yes Was information provided regarding opioid addiction?: Yes
== END ==
LOC: PNWHC3 10:16
PROVIDERS: ATTEND Specialist
DX: M47.816 Spondylosis without myelopathy or radiculopathy, lumbar region (principal); M51.36 Other intervertebral disc degeneration, lumbar region; Z79.891 Long term (current) use of opiate analgesic; Z88.8 Allergy status to other drugs, medicaments and biological substances; Z88.6 Allergy status to analgesic agent; Z87.891 Personal history of nicotine dependence
CPT/HCPCS: 99211

== ENCOUNTER → 2022-10-31 | Outpatient (CLI) | payer MEDICARE, OTHER ==
[2022-10-31 11:19] VITALS: BP 206/109; PULSE 84; RESP 18; TEMP 97.8
--- NOTE | 2022-10-31 15:11 | P.PAINPG ---
PQRS Measure Charge Sheet Comment: A 67 yr old female with a history of severe and chronic LBP secondary to lumbar DDD and spondylosis with facet arthropathy without myelopathy presents today for medication refills. Pain level is provoked at 7 /10 in intensity, constant, localized in the R lumbar spine, sharp in character w/o shooting pain. Pain is provoked by bending, lifting, sitting for periods of 15 min or more. Pain is alleviated with medications, injections, PT years ago, heat, repositioning and rest. Interventional pain procedures completed include R SI injection Patient is currently on [place] ER 30mg #60, [place] 10/325mg #60 Patient denies any side effects of the medication(s), denies excessive drowsiness or sleepiness, denies suicidal ideation and reports that the current pain medication is helping to control the pain and improve activities of daily living. Patient denies any motor or sensory deficits. Patient denies any fever or night sweats, denies any change in the bowel movements or urination. Physical Examination: -Constitutional: Cooperative. Not in acute distress . - Neurologic: Cranial nerve II to XII intact. No focal neurological deficits. - Psychatric: Alert & oriented x 3. Matching mood & appropriate affect. Judgment and insight intact. - Musculoskeletal: Cervical spine: Muscle bulk/ tone/ strength in the bilateral upper extremities normal Vertebral body tenderness to palpation over Spurling test positive Distraction test positive Facet loading test positive TTP Thoracic spine Muscle bulk / tone/ strength in the bilateral paraspinal muscles normal Vertebral body tender to palpation over Facet loading test positive TTP Lumbar spine: Motor bulk/ tone/ strength lower extremities , thigh and legs : 5/5 Deep tendon reflexes : Normal Knee Jerk. Normal Ankle Jerk . Vertebral body tenderness to palpation over Lumbar Facet Loading Test positive Straight Leg Raise: positive at 30 degrees right side/ left side Gaenslen's Test positive Sacral spine : Severe tenderness over the Sacroiliac joint: right side / left side Range of motion: Flexion of the lumbar spine <60 degrees Range of motion: Extension of the lumbar spine <20 degrees Gaenslen's Test positive right side / left side Tiny test: positive right side / left side Thigh Thrust Test positive right side / left side Sacral Thrust Test positive right side / left side Assessment and plan: Chronic LBP secondary to lumbar DDD, spondylosis with facet arthropathy without myelopathy Recommendation of R SI injection. May need a series of injections for optimal pain relief. Risks, benefits of procedure discussed and pt verbalized understanding. Admits to anticoagulant use or medical history of diabetes. Protocol for discontinuation/ continuation of medications erika procedure discussed. All questions answered. Chronic and current use of high-risk medication (Opioids). The patient was counseled about risk of opioid use, psychological risk associated with opioids and was orally counseled to not overuse , divert or sell medications. Pt is to store medication in a safe location. The patient is counseled against driving while using narcotic medications and also not to use alcohol or any illicit recreational drugs. Patient verbalized understanding that the lack of compliance will result in failure to renew narcotic prescription(s) as well as possible discharge from the clinic Diagnoses, prognosis and treatment options including but not limited to physical therapy, surgical interventions, interventional therapies and medication management including narcotics and adjuvant medication were discussed. All patient questions answered MAPS reviewed and it was appropriate. UDS from Jun 2022 reviewed and consistent. Prescription refill for MS ER 30mg #60, [place] 10/325mg #60 w 1 RF I have spent less than 30 minutes on patient care today. Dr Dougherty was available by phone for the evaluation of this patient. The time was used to review the medical records including relevant urine studies and Prescription history (MAPs), review of the available imaging, evaluation and examination of the patient, coordination of care with the medical staff and if applicable referring physicians, as well as creation of the medical record PQRS Narrative: Smoking Status Former smoker Narcotic Agreement Date Signed 07/11/22 Hx Alcohol Use (MH) No Home Medications: Ambulatory Orders Butalb/Acetaminophen/Caffeine [Fioricet 50-325-40 mg Tablet] 1 tab PO TID PRN 04/11/14 INSULIN LISPRO (humaLOG) [humaLOG] See Protocol SQ AC-TID PRN 04/14/14 Budesonide-Formot 160-4.5 Mcg [Symbicort 160-4.5 Mcg Inhaler] 2 puff INHALATION RT-BID PRN 10/25/15 lisinopriL [Zestril] 40 mg PO HS 04/04/16 Insulin Glargine [Lantus Vial] 80 unit SQ HS 05/02/16 Pantoprazole [Protonix] 40 mg PO AC-BID #60 tablet. 12/19/16 Naloxone HCl [Narcan] 4 mg NASAL ONCE PRN #2 each 07/11/22 HYDROcodone/APAP 10-325MG [[place] 10-325] 1 tab PO Q12HR PRN 30 Days #60 tab 10/31/22 HYDROcodone/APAP 10-325MG [[place] 10-325] 1 tab PO Q12HR PRN 30 Days #60 tab 10/31/22 Morphine Sulfate ER [Ms Contin] 30 mg PO Q12H 30 Days #60 tab 10/31/22 Morphine Sulfate ER [Ms Contin] 30 mg PO Q12H 30 Days #60 tab 10/31/22 Controlled Substance Measures - Controlled Substance Measures Is patient prescribed a controlled substance at discharge?: Yes
== END ==
LOC: PNWHC3 10:08
PROVIDERS: ATTEND Specialist
DX: M51.36 Other intervertebral disc degeneration, lumbar region (principal); M47.816 Spondylosis without myelopathy or radiculopathy, lumbar region; G89.29 Other chronic pain; Z79.891 Long term (current) use of opiate analgesic; Z88.6 Allergy status to analgesic agent; Z88.8 Allergy status to other drugs, medicaments and biological substances; Z87.891 Personal history of nicotine dependence
CPT/HCPCS: 99211

== ENCOUNTER → 2022-12-26 | Outpatient (CLI) | payer MEDICARE, OTHER ==
[2022-12-26 12:12] VITALS: BP 181/97; PULSE 79; RESP 18; TEMP 98
--- NOTE | 2022-12-26 14:31 | P.PAINPG ---
PQRS Measure Charge Sheet Comment: A 67 yr old female with a history of severe and chronic LBP secondary to lumbar DDD and spondylosis with facet arthropathy without myelopathy presents today for medication refills. Pain level is provoked at 9 /10 in intensity, constant, localized in the R lumbar spine, sharp in character w shooting to hips, buttocks and LEs. Pain is provoked by bending, lifting, standing for periods of 15 min or more. Pain is alleviated with medications, injections, PT years ago, heat, repositioning and rest. Interventional pain procedures completed include R SI injection Patient is currently on MS ER 30mg #60, [place] 10/325mg #60 Patient denies any side effects of the medication(s), denies excessive drowsiness or sleepiness, denies suicidal ideation and reports that the current pain medication is helping to control the pain and improve activities of daily living. Patient denies any motor or sensory deficits. Patient denies any fever or night sweats, denies any change in the bowel movements or urination. Physical Examination: -Constitutional: Cooperative. Not in acute distress . - Neurologic: Cranial nerve II to XII intact. No focal neurological deficits. - Psychatric: Alert & oriented x 3. Matching mood & appropriate affect. Judgment and insight intact. - Musculoskeletal: Cervical spine: Muscle bulk/ tone/ strength in the bilateral upper extremities normal Vertebral body tenderness to palpation over Spurling test positive Distraction test positive Facet loading test positive TTP Thoracic spine Muscle bulk / tone/ strength in the bilateral paraspinal muscles normal Vertebral body tender to palpation over Facet loading test positive TTP Lumbar spine: Motor bulk/ tone/ strength lower extremities , thigh and legs : 5/5 Deep tendon reflexes : Normal Knee Jerk. Normal Ankle Jerk . Vertebral body tenderness to palpation over Lumbar Facet Loading Test positive Straight Leg Raise: positive at 30 degrees right side/ left side Gaenslen's Test positive Sacral spine : Severe tenderness over the Sacroiliac joint: right side / left side Range of motion: Flexion of the lumbar spine <60 degrees Range of motion: Extension of the lumbar spine <20 degrees Gaenslen's Test positive right side / left side Tiny test: positive right side / left side Thigh Thrust Test positive right side / left side Sacral Thrust Test positive right side / left side Assessment and plan: Chronic LBP secondary to lumbar DDD, spondylosis with facet arthropathy without myelopathy Chronic and current use of high-risk medication (Opioids). The patient was counseled about risk of opioid use, psychological risk associated with opioids and was orally counseled to not overuse , divert or sell medications. Pt is to store medication in a safe location. The patient is counseled against driving while using narcotic medications and also not to use alcohol or any illicit recreational drugs. Patient verbalized understanding that the lack of compliance will result in failure to renew narcotic prescription(s) as well as possible discharge from the clinic Diagnoses, prognosis and treatment options including but not limited to physical therapy, surgical interventions, interventional therapies and medication management including narcotics and adjuvant medication were discussed. All patient questions answered MAPS reviewed and it was appropriate. UDS from Jun 2022 reviewed and consistent. UDS collected today 12/26/22. Prescription refill for MS ER 30mg #60, [place] 10/325mg #60 w 1 RF I have spent less than 30 minutes on patient care today. Dr Dougherty was available by phone for the evaluation of this patient. The time was used to review the medical records including relevant urine studies and Prescription history (MAPs), review of the available imaging, evaluation and examination of the patient, coordination of care with the medical staff and if applicable referring physicians, as well as creation of the medical record PQRS Narrative: Smoking Status Former smoker Narcotic Agreement Date Signed 07/11/22 Hx Alcohol Use (MH) No Home Medications: Ambulatory Orders Butalb/Acetaminophen/Caffeine [Fioricet 50-325-40 mg Tablet] 1 tab PO TID PRN 04/11/14 INSULIN LISPRO (humaLOG) [humaLOG] See Protocol SQ AC-TID PRN 04/14/14 Budesonide-Formot 160-4.5 Mcg [Symbicort 160-4.5 Mcg Inhaler] 2 puff INHALATION RT-BID PRN 10/25/15 lisinopriL [Zestril] 40 mg PO HS 04/04/16 Insulin Glargine [Lantus Vial] 80 unit SQ HS 05/02/16 Pantoprazole [Protonix] 40 mg PO AC-BID #60 tablet. 12/19/16 Naloxone HCl [Narcan] 4 mg NASAL ONCE PRN #2 each 07/11/22 HYDROcodone/APAP 10-325MG [[place] 10-325] 1 tab PO Q12HR PRN 30 Days #60 tab HYDROcodone/APAP 10-325MG [[place] 10-325] 1 tab PO Q12HR PRN 30 Days #60 tab 10/31/22 Morphine Sulfate ER [Ms Contin] 30 mg PO Q12H 30 Days #60 tab 10/31/22 Morphine Sulfate ER [Ms Contin] 30 mg PO Q12H 30 Days #60 tab 10/31/22 Controlled Substance Measures - Controlled Substance Measures Is patient prescribed a controlled substance at discharge?: Yes When asked, does pt state using other controlled substances?: No If prescribed controlled substance>3 days was MAPS reviewed?: Yes
== END ==
LOC: PNWHC3 09:51
PROVIDERS: ATTEND Specialist
DX: M47.816 Spondylosis without myelopathy or radiculopathy, lumbar region (principal); M51.36 Other intervertebral disc degeneration, lumbar region; Z88.8 Allergy status to other drugs, medicaments and biological substances; Z88.1 Allergy status to other antibiotic agents; Z87.891 Personal history of nicotine dependence
CPT/HCPCS: 80307; G0482; G0463; 99212

== ENCOUNTER → 2022-12-26 | Outpatient (CLI) | payer MEDICARE, OTHER ==
--- NOTE | 2022-12-26 11:33 | MM ---
Reason for Exam: Additional evaluation requested from prior study. Last screening mammogram was performed 12 month(s) ago. Patient History: Menarche at age 11. First Full-Term at age 18. Postmenopausal. Breast cancer, right, age 66. 02/06/2022, Mastectomy on the Right side. 02/06/2022, Malignant US breast localization RT on the right side. 01/02/2022, Malignant US biopsy breast VAD RT on the right side. 01/02/2022, Malignant US biopsy breast add'l VAD RT on the right side. Maternal aunt had breast cancer, age 57. Prior Study Comparison: 05/16/2016 Bilateral Screening Mammogram, [facility]. 05/30/2016 Bilateral Diagnostic Mammogram, [facility]. 12/27/2021 Bilateral Diagnostic Mammogram, [facility]. 01/02/2022 Right MG diagnostic mammo RT wo CAD, [facility]. Tissue Density: Left: The breast tissue is heterogeneously dense. This may lower the sensitivity of mammography. Findings: Analyzed By CAD. Stable benign-appearing round calcifications within left breast. No new suspicious mass within the left breast. No suspicious group of microcalcifications within the left breast. Overall Assessment: Benign, BI-RAD 2 Management: Diagnostic Mammogram of the left breast in 1 year. A clinical breast exam by your physician is recommended on an annual basis and results should be correlated with mammographic findings. This exam should not preclude additional follow-up of suspicious palpable abnormalities. Results were given to the patient verbally at the time of exam. Electronically signed and approved by: Godfrey Gutierrez D.O.
--- NOTE | 2022-12-26 12:15 | XR ---
EXAMINATION TYPE: XR spine complete AP and Lat DATE OF EXAM: 12/26/2022 COMPARISON: 12/18/2016 HISTORY: Pain TECHNIQUE: 2 views cervical, thoracic, and lumbar spine FINDINGS: Anterior cervical fusion is evident at C5-C7. This was present previously. The prevertebral space appears normal. Posterior spinal lamellar line is intact. Vertebral body alignment appears nor mal. Thoracic spine: Spondylosis is present. There is diffuse degenerative disc changes through the dressi ng spine. Lumbar spine: There are 5 lumbar-type vertebral bodies. There is fixation L5-S1 through the right sac roiliac joint. Degenerative disc changes are present within the lumbar spine. Some retrolisthesis of L3 on L4 is present. Spondylosis is present. IMPRESSION: 1. Stable anterior cervical fusion 2. Thoracic and lumbar spondylosis. 3. Retrolisthesis of L3 posterior on L4. 5. Degenerative disc changes throughout the axial skeleton
== END | disposition home or self-care (01) ==
LOC: RADMAMWWP 10:54
PROVIDERS: ATTEND Radiology Radiation Oncology
DX: C77.3 Secondary and unspecified malignant neoplasm of axilla and upper limb lymph nodes (principal); C50.211 Malignant neoplasm of upper-inner quadrant of right female breast; M54.12 Radiculopathy, cervical region; M47.815 Spondylosis without myelopathy or radiculopathy, thoracolumbar region; M43.16 Spondylolisthesis, lumbar region; Z78.0 Asymptomatic menopausal state; Z79.811 Long term (current) use of aromatase inhibitors; Z80.3 Family history of malignant neoplasm of breast
CPT/HCPCS: 72082; 77065; G0279; 77061

== ENCOUNTER → 2023-01-01 | Outpatient (CLI) | payer MEDICARE, OTHER ==
--- NOTE | 2023-01-02 09:04 | CT ---
EXAMINATION TYPE: CT brain wo/w con DATE OF EXAM: 01/01/2023 COMPARISON: 05/14/2014 HISTORY: HEADACHES CT DLP: 1991.0 mGycm Automated exposure control for dose reduction was used. CONTRAST: CT scan of the head is performed without and with IV Contrast, patient injected with 100 mL of Isovue 300. FINDINGS: There is no abnormal enhancing mass or midline shift identified. The ventricles and sulci are consis tent with mild degenerative change. No acute hemorrhage. The globes are intact and changes of chronic sinusitis noted. Craniocervical junction maintained. Salima la turcica has a normal appearance. Calvarium intact. Nasal septal deviation. IMPRESSION: Mild degenerative change with no enhancing mass or mass effect.
== END | disposition home or self-care (01) ==
LOC: RADCTMAIN 13:50
PROVIDERS: ATTEND Family Medicine
DX: G93.89 Other specified disorders of brain (principal); R51.9 Headache, unspecified
CPT/HCPCS: 82565; 84520; 70470; 36415; Q9967

== ENCOUNTER → 2023-02-20 | Outpatient (CLI) | payer MEDICARE, OTHER ==
[2023-02-20 11:59] VITALS: BP 161/88; PULSE 83; RESP 18; TEMP 98.1
--- NOTE | 2023-02-20 14:32 | P.PAINPG ---
PQRS Measure Charge Sheet Comment: A 67 yr old female with a history of severe and chronic LBP secondary to lumbar DDD and spondylosis with facet arthropathy without myelopathy presents today for medication refills. Pain level is provoked at 8 /10 in intensity, constant, localized in the R lumbar spine, sharp in character w shooting to hips, buttocks and LEs. Pain is provoked by bending, lifting, standing for periods of 15 min or more. Pain is alleviated with medications, injections, PT years ago, heat, repositioning and rest. Interventional pain procedures completed include R SI injection Patient is currently on MS ER 30mg #60, [place] 10/325mg #60 Patient denies any side effects of the medication(s), denies excessive drowsiness or sleepiness, denies suicidal ideation and reports that the current pain medication is helping to control the pain and improve activities of daily living. Patient denies any motor or sensory deficits. Patient denies any fever or night sweats, denies any change in the bowel movements or urination. Physical Examination: -Constitutional: Cooperative. Not in acute distress . - Neurologic: Cranial nerve II to XII intact. No focal neurological deficits. - Psychatric: Alert & oriented x 3. Matching mood & appropriate affect. Judgment and insight intact. - Musculoskeletal: Cervical spine: Muscle bulk/ tone/ strength in the bilateral upper extremities normal Vertebral body tenderness to palpation over Spurling test positive Distraction test positive Facet loading test positive TTP Thoracic spine Muscle bulk / tone/ strength in the bilateral paraspinal muscles normal Vertebral body tender to palpation over Facet loading test positive TTP Lumbar spine: Motor bulk/ tone/ strength lower extremities , thigh and legs : 5/5 Deep tendon reflexes : Normal Knee Jerk. Normal Ankle Jerk . Vertebral body tenderness to palpation over Lumbar Facet Loading Test positive Straight Leg Raise: positive at 30 degrees right side/ left side Gaenslen's Test positive Sacral spine : Severe tenderness over the Sacroiliac joint: right side / left side Range of motion: Flexion of the lumbar spine <60 degrees Range of motion: Extension of the lumbar spine <20 degrees Gaenslen's Test positive right side / left side Tiny test: positive right side / left side Thigh Thrust Test positive right side / left side Sacral Thrust Test positive right side / left side Assessment and plan: Chronic LBP secondary to lumbar DDD, spondylosis with facet arthropathy without myelopathy Chronic and current use of high-risk medication (Opioids). The patient was counseled about risk of opioid use, psychological risk associated with opioids and was orally counseled to not overuse , divert or sell medications. Pt is to store medication in a safe location. The patient is counseled against driving while using narcotic medications and also not to use alcohol or any illicit recreational drugs. Patient verbalized understanding that the lack of compliance will result in failure to renew narcotic prescription(s) as well as possible discharge from the clinic Diagnoses, prognosis and treatment options including but not limited to physical therapy, surgical interventions, interventional therapies and medication management including narcotics and adjuvant medication were discussed. All patient questions answered MAPS reviewed and it was appropriate. UDS from 12/26/22 reviewed and inconsistent (Negative [place]). Recheck UDS today 02/20/23. Prescription refill for MS ER 30mg #60, [place] 10/325mg #60 w 1 RF I have spent less than 30 minutes on patient care today. Dr Dougherty was available by phone for the evaluation of this patient. The time was used to review the medical records including relevant urine studies and Prescription history (MAPs), review of the available imaging, evaluation and examination of the patient, coordination of care with the medical staff and if applicable referring physicians, as well as creation of the medical record PQRS Narrative: Smoking Status Former smoker Narcotic Agreement Date Signed 07/11/22 Hx Alcohol Use (MH) No Home Medications: Ambulatory Orders Butalb/Acetaminophen/Caffeine [Fioricet 50-325-40 mg Tablet] 1 tab PO TID PRN 04/11/14 INSULIN LISPRO (humaLOG) [humaLOG] See Protocol SQ AC-TID PRN 04/14/14 Budesonide-Formot 160-4.5 Mcg [Symbicort 160-4.5 Mcg Inhaler] 2 puff INHALATION RT-BID PRN 10/25/15 lisinopriL [Zestril] 40 mg PO HS 04/04/16 Insulin Glargine [Lantus Vial] 80 unit SQ HS 05/02/16 Pantoprazole [Protonix] 40 mg PO AC-BID #60 tablet. 12/19/16 Naloxone HCl [Narcan] 4 mg NASAL ONCE PRN #2 each 07/11/22 HYDROcodone/APAP 10-325MG [[place] 10-325] 1 tab PO BID PRN 30 Days #60 tab 02/20/23 HYDROcodone/APAP 10-325MG [[place] 10-325] 1 tab PO BID PRN 30 Days #60 tab 02/20/23 HYDROcodone/APAP 10-325MG [[place] 10-325] 1 tab PO Q12HR PRN 30 Days #60 tab 02/20/23 HYDROcodone/APAP 10-325MG [[place] 10-325] 1 tab PO Q12HR PRN 30 Days #60 tab 02/20/23 Morphine Sulfate ER [Ms Contin] 30 mg PO BID 30 Days #60 tab 02/20/23 Morphine Sulfate ER [Ms Contin] 30 mg PO Q12H 30 Days #60 tab 02/20/23 Morphine Sulfate ER [Ms Contin] 30 mg PO Q12H 30 Days #60 tab 02/20/23 Morphine Sulfate ER [Ms Contin] 30 mg PO Q12HR 30 Days #60 tab 02/20/23 Controlled Substance Measures - Controlled Substance Measures Is patient prescribed a controlled substance at discharge?: Yes
== END ==
LOC: PNWHC3 10:13
PROVIDERS: ATTEND Specialist
DX: M51.36 Other intervertebral disc degeneration, lumbar region (principal); M47.816 Spondylosis without myelopathy or radiculopathy, lumbar region; G89.29 Other chronic pain; Z79.891 Long term (current) use of opiate analgesic; M53.3 Sacrococcygeal disorders, not elsewhere classified; Z88.6 Allergy status to analgesic agent; Z88.8 Allergy status to other drugs, medicaments and biological substances; Z87.891 Personal history of nicotine dependence
CPT/HCPCS: 99212

== ENCOUNTER → 2023-02-25 | Outpatient (CLI) | payer MEDICARE, OTHER ==
--- NOTE | 2023-02-25 14:56 | BD ---
EXAMINATION TYPE: Axial Bone Density DATE OF EXAM: 02/25/2023 CLINICAL HISTORY: 67 years old Female. ICD-10 CODE: C50.811 BREAST CA Height: 62in Weight: 260lb FRAX RISK QUESTIONS: History of Fracture in Adulthood: yes Secondary Osteoporosis: 3. Menopause before 45: unknown RISK FACTORS HISTORY OF: Surgery to Spine/Hip(right/left)/Wrist (right/left): yes, lumbar and cervical surgery, rt wrist surge ry When: 2000 Active: yes Postmenopausal woman: yes Take estrogen and/or progesterone medications: hormone keyon How long: about 1 year Poor Health: fair MEDICATIONS: Additional Medications: diabetic meds, bp meds, cholesterol med, morphine, vitamin d Additional History: Br Ca 2021, Rt wrist fx, cervical and lumbar surgery EXAM MEASUREMENTS: Bone mineral densitometry was performed using the Pidefarma System. Bone mineral density about the R hip (g/cm2): 1.107 Bone mineral density about the L hip (g/cm2): 1.150 T Score values are as follows: -----R Neck: -0.7 -----L Neck: -0.2 -----R Total: 0.8 -----L Total: 1.1 Z Score values are as follows: -----R Neck: 0.1 -----L Neck: 0.6 -----R Total: 1.2 -----L Total: 1.6 First dexa at [facility] FRAX%s: The graph provided illustrates a 10.6% chance for a major osteoporotic fx and a 0.6% chance f or the hips probability for fx in 10 years time. IMPRESSION: Normal (Values between +1 and -1 indicate normal bone mass). Consider repeating this study in 5 year s or sooner if there is some new clinical indication. NOTE: T-SCORE=SD OF THE YOUNG ADULT MEAN.
== END | disposition home or self-care (01) ==
LOC: RADBDWWP 12:28
PROVIDERS: ATTEND Internal Medicine Hematology & Oncology
DX: C50.811 Malignant neoplasm of overlapping sites of right female breast (principal); Z71.3 Dietary counseling and surveillance; E11.9 Type 2 diabetes mellitus without complications; Z78.0 Asymptomatic menopausal state
CPT/HCPCS: 77080

== ENCOUNTER → 2023-04-17 | Outpatient (CLI) | payer MEDICARE, OTHER ==
[2023-04-17 12:13] VITALS: BP 190/82; PULSE 75; RESP 16; TEMP 97.8
== END ==
LOC: PNWHC3 10:27
PROVIDERS: ATTEND Specialist
DX: M54.50 Low back pain, unspecified (principal); M51.36 Other intervertebral disc degeneration, lumbar region; Z88.8 Allergy status to other drugs, medicaments and biological substances; Z87.891 Personal history of nicotine dependence
CPT/HCPCS: 99211

== ENCOUNTER → 2023-06-12 | Outpatient (CLI) | payer MEDICARE, OTHER ==
[2023-06-12 13:30] VITALS: BP 215/109; PULSE 80; RESP 16; TEMP 98.1
--- NOTE | 2023-06-12 16:01 | P.PAINPG ---
PQRS Measure Charge Sheet Comment: A 67 yr old female with a history of severe and chronic LBP secondary to lumbar DDD and spondylosis with facet arthropathy without myelopathy presents today for medication refills. Pain level is provoked at 7 /10 in intensity, constant, localized in the R lumbar spine, sharp in character w shooting to the buttocks and RLE. Pain is provoked by bending, lifting, standing for periods of 15 min or more. Pain is alleviated with medications, injections, PT years ago, heat, repositioning and rest. She admits she is no longer taking [place]. Interventional pain procedures completed include R SI injection Patient is currently on MS ER 30mg #60, [place] 10/325mg #60, [place]yl Patient denies any side effects of the medication(s), denies excessive drowsiness or sleepiness, denies suicidal ideation and reports that the current pain medication is helping to control the pain and improve activities of daily living. Patient denies any motor or sensory deficits. Patient denies any fever or night sweats, denies any change in the bowel movements or urination. Physical Examination: -Constitutional: Cooperative. Not in acute distress . - Neurologic: Cranial nerve II to XII intact. No focal neurological deficits. - Psychatric: Alert & oriented x 3. Matching mood & appropriate affect. Judgment and insight intact. - Musculoskeletal: Cervical spine: Muscle bulk/ tone/ strength in the bilateral upper extremities normal Vertebral body tenderness to palpation over Spurling test positive Distraction test positive Facet loading test positive TTP Thoracic spine Muscle bulk / tone/ strength in the bilateral paraspinal muscles normal Vertebral body tender to palpation over Facet loading test positive TTP Lumbar spine: Motor bulk/ tone/ strength lower extremities , thigh and legs : 5/5 Deep tendon reflexes : Normal Knee Jerk. Normal Ankle Jerk . Vertebral body tenderness to palpation over Lumbar Facet Loading Test positive Straight Leg Raise: positive at 30 degrees right side/ left side Gaenslen's Test positive Sacral spine : Severe tenderness over the Sacroiliac joint: right side / left side Range of motion: Flexion of the lumbar spine <60 degrees Range of motion: Extension of the lumbar spine <20 degrees Gaenslen's Test positive right side / left side Tiny test: positive right side / left side Thigh Thrust Test positive right side / left side Sacral Thrust Test positive right side / left side Assessment and plan: Chronic LBP secondary to lumbar DDD, spondylosis with facet arthropathy w ithout myelopathy Chronic and current use of high-risk medication (Opioids). The patient was counseled about risk of opioid use, psychological risk associated with opioids and was orally counseled to not overuse , divert or sell medications. Pt is to store medication in a safe location. The patient is counseled against driving while using narcotic medications and also not to use alcohol or any illicit recreational drugs. Patient verbalized understanding that the lack of compliance will result in failure to renew narcotic prescription(s) as well as possible discharge from the clinic Diagnoses, prognosis and treatment options including but not limited to physical therapy, surgical interventions, interventional therapies and me dication management including narcotics and adjuvant medication were discussed. All patient questions answered MAPS reviewed and it was appropriate. UDS from December 2022 and Feb 2023 also negative for [place], +Morphine metabolites. Will recheck at next visit Prescription refill for MS ER 30mg #60 w 1 RF. Discontinue [place] 10/325mg #60 I have spent less than 30 minutes on patient care today. Dr Dougherty was available by phone for the evaluation of this patient. The time was used to review the medical records including relevant urine studies and Prescription history (MAPs), review of the available imaging, evaluation and examination of the patient, coordination of care with the medical staff and if applicable referring physicians, as well as creation of the medical record PQRS Narrative: Smoking Status Former smoker Narcotic Agreement Date Signed 07/11/22 Hx Alcohol Use (MH) No Home Medications: Ambulatory Orders Butalb/Acetaminophen/Caffeine [Fioricet 50-325-40 mg Tablet] 1 tab PO TID PRN 04/11/14 INSULIN LISPRO (humaLOG) [humaLOG] See Protocol SQ AC-TID PRN 04/14/14 Budesonide-Formot 160-4.5 Mcg [Symbicort 160-4.5 Mcg Inhaler] 2 puff INHALATION RT-BID PRN 10/25/15 lisinopriL [Zestril] 40 mg PO HS 04/04/16 Insulin Glargine [Lantus Vial] 80 unit SQ HS 05/02/16 Pantoprazole [Protonix] 40 mg PO AC-BID #60 tablet. 12/19/16 Naloxone HCl [Narcan] 4 mg NASAL ONCE PRN #2 each 07/11/22 HYDROcodone/APAP 10-325MG [[place] 10-325] 1 tab PO BID PRN 30 Days #60 tab 02/20/23 HYDROcodone/APAP 10-325MG [[place] 10-325] 1 tab PO BID PRN 30 Days #60 tab 02/20/23 Morphine Sulfate ER [Ms Contin] 30 mg PO BID 30 Days #60 tab 02/20/23 Morphine Sulfate ER [Ms Contin] 30 mg PO Q12HR 30 Days #60 tab 02/20/23 HYDROcodone/APAP 10-325MG [[place] 10-325] 1 tab PO BID PRN 30 Days #60 tab 03/04/23 Morphine Sulfate ER [Ms Contin] 30 mg PO Q12H 30 Days #60 tab 06/12/23 Morphine Sulfate ER [Ms Contin] 30 mg PO Q12H 30 Days #60 tab 06/12/23 Controlled Substance Measures - Controlled Substance Measures Is patient prescribed a controlled substance at discharge?: Yes When asked, does pt state using other controlled substances?: No If prescribed controlled substance>3 days was MAPS reviewed?: Yes If Rx opioid, was Start Talking consent form obtained?: Yes Was information provided regarding opioid addiction?: Yes
== END ==
LOC: PNWHC3 10:15
PROVIDERS: ATTEND Specialist
DX: M51.36 Other intervertebral disc degeneration, lumbar region (principal); M47.816 Spondylosis without myelopathy or radiculopathy, lumbar region; G89.29 Other chronic pain; Z87.891 Personal history of nicotine dependence; Z79.891 Long term (current) use of opiate analgesic; Z88.8 Allergy status to other drugs, medicaments and biological substances; Z88.6 Allergy status to analgesic agent
CPT/HCPCS: 99211

== ENCOUNTER → 2023-08-07 | Outpatient (CLI) | payer MEDICARE, OTHER ==
[2023-08-07 10:46] VITALS: BP 227/78; PULSE 82; RESP 16; TEMP 97.6
--- NOTE | 2023-08-07 14:10 | P.PAINPG ---
PQRS Measure Charge Sheet Comment: A 67 yr old female with a history of severe and chronic LBP secondary to lumbar DDD and spondylosis with facet arthropathy without myelopathy presents today for medication refills. Pain level is provoked at 7 /10 in intensity, constant, localized in the R lumbar spine, predominantly axial, sharp in character w occasional shooting to the buttocks and RLE. Pain is provoked by bending, lifting, standing for periods of 15 min or more. Pain is alleviated with medications, injections, PT years ago, heat, repositioning and rest. Pt has a BP of 227/108 Pt states it always runs high. She denies BELLO, vision changes, GONSALO or chest tightness. Discussed dangers of elevated BP and urged pt to go to ER for Hypertensive Urgency. Pt acknowledged understanding. Offered for pt to have wheelchair and be transported down but pt refused. She is here w her who is driving. Interventional pain procedures completed include R SI injection Patient is currently on MS ER 30mg #60, [place] 10/325mg #60, Tyl Patient denies any side effects of the medication(s), denies excessive drowsiness or sleepiness, denies suicidal ideation and reports that the current pain medication is helping to control the pain and improve activities of daily living. Patient denies any motor or sensory deficits. Patient denies any fever or night sweats, denies any change in the bowel movements or urination. Physical Examination: -Constitutional: Cooperative. Not in acute distress . - Neurologic: Cranial nerve II to XII intact. No focal neurological deficits. - Psychatric: Alert & oriented x 3. Matching mood & appropriate affect. Judgment and insight intact. - Musculoskeletal: Cervical spine: Muscle bulk/ tone/ strength in the bilateral upper extremities normal Vertebral body tenderness to palpation over Spurling test positive Distraction test positive Facet loading test positive TTP Thoracic spine Muscle bulk / tone/ strength in the bilateral paraspinal muscles normal Vertebral body tender to palpation over Facet loading test positive TTP Lumbar spine: Motor bulk/ tone/ strength lower extremities , thigh and legs : 5/5 Deep tendon reflexes : Normal Knee Jerk. Normal Ankle Jerk . Vertebral body tenderness to palpation over Lumbar Facet Loading Test positive Straight Leg Raise: positive at 30 degrees right side/ left side Gaenslen's Test positive Sacral spine : Severe tenderness over the Sacroiliac joint: right side / left side Range of motion: Flexion of the lumbar spine <60 degrees Range of motion: Extension of the lumbar spine <20 degrees Gaenslen's Test positive right side / left side Tiny test: positive right side / left side Thigh Thrust Test positive right side / left side Sacral Thrust Test positive right side / left side Assessment and plan: Chronic LBP secondary to lumbar DDD, spondylosis with facet arthropathy without myelopathy Pt aware of dangers of elevated BP and acknowledges she will go to ER on her own without ambulatory assistance. Chronic and current use of high-risk medication (Opioids). The patient was counseled about risk of opioid use, psychological risk associated with opioids and was orally counseled to not overuse , divert or sell medications. Pt is to store medication in a safe location. The patient is counseled against driving while using narcotic medications and also not to use alcohol or any illicit recreational drugs. Patient verbalized understanding that the lack of compliance will result in failure to renew narcotic prescription(s) as well as possible discharge from the clinic Diagnoses, prognosis and treatment options including but not limited to physical therapy, surgical interventions, interventional therapies and medication management including narcotics and adjuvant medication were discussed. All patient questions answered MAPS reviewed and it was appropriate. Prescription refill for MS ER 30mg #60 w 1 RF. I have spent less than 30 minutes on patient care today. Dr Dougherty was available by phone for the evaluation of this patient. The time was used to review the medical records including relevant urine studies and Prescription history (MAPs), review of the available imaging, evaluation and examination of the patient, coordination of care with the medical staff and if applicable referring physicians, as well as creation of the medical record PQRS Narrative: Smoking Status Former smoker Narcotic Agreement Date Signed 06/12/23 Hx Alcohol Use (MH) No Home Medications: Ambulatory Orders Butalb/Acetaminophen/Caffeine [Fioricet 50-325-40 mg Tablet] 1 tab PO TID PRN 04/11/14 INSULIN LISPRO (humaLOG) [humaLOG] See Protocol SQ AC-TID PRN 04/14/14 Budesonide-Formot 160-4.5 Mcg [Symbicort 160-4.5 Mcg Inhaler] 2 puff INHALATION RT-BID PRN 10/25/15 lisinopriL [Zestril] 40 mg PO HS 04/04/16 Insulin Glargine [Lantus Vial] 80 unit SQ HS 05/02/16 Pantoprazole [Protonix] 40 mg PO AC-BID #60 tablet. 12/19/16 Naloxone HCl [Narcan] 4 mg NASAL ONCE PRN #2 each 07/11/22 Morphine Sulfate ER [Ms Contin] 30 mg PO Q12H 30 Days #60 tab 06/12/23 Morphine Sulfate ER [Ms Contin] 30 mg PO Q12H 30 Days #60 tab 06/12/23 Morphine Sulfate ER [Ms Contin] 30 mg PO BID 30 Days #60 tab 08/07/23 Morphine Sulfate ER [Ms Contin] 30 mg PO Q12HR 30 Days #60 tab 08/07/23 Controlled Substance Measures - Controlled Substance Measures Is patient prescribed a controlled substance at discharge?: Yes When asked, does pt state using other controlled substances?: No If prescribed controlled substance>3 days was MAPS reviewed?: Yes
== END ==
LOC: PNWHC3 10:19
PROVIDERS: ATTEND Specialist
DX: M51.36 Other intervertebral disc degeneration, lumbar region (principal); M47.816 Spondylosis without myelopathy or radiculopathy, lumbar region; G89.29 Other chronic pain; Z79.891 Long term (current) use of opiate analgesic; Z87.891 Personal history of nicotine dependence; Z88.8 Allergy status to other drugs, medicaments and biological substances; Z88.6 Allergy status to analgesic agent
CPT/HCPCS: 99211

== ENCOUNTER → 2023-10-02 | Outpatient (CLI) | payer MEDICARE, OTHER ==
[2023-10-03 07:12] LABS: Serum Amphetamine Negative; Serum Barbiturates Negative; Serum Benzodiazepine Negative; Serum Cocaine Negative; Serum Methadone Negative; Serum Opiates Positive; Serum Phencyclidine Negative; Serum Propoxyphene Negative; Serum THC (Cannabis) Negative
== END | disposition home or self-care (01) ==
LOC: LABWHC1 11:44
PROVIDERS: ATTEND Physician Assistant Medical
DX: Z02.83 Encounter for blood-alcohol and blood-drug test (principal)
CPT/HCPCS: 36415; 80307

== ENCOUNTER → 2023-10-02 | Outpatient (CLI) | payer MEDICARE, OTHER ==
[2023-10-02 11:44] VITALS: BP 137/72; PULSE 99; RESP 15; TEMP 98.5
--- NOTE | 2023-10-02 14:29 | P.PAINPG ---
Objective - Vital Signs Vital signs: Intake & Output 10/01/23 10/02/23 10/02/23 18:59 06:59 18:59 Weight 130.635 kg PQRS Measure Charge Sheet Comment: A 68 yr old female with a history of severe and chronic LBP secondary to lumbar DDD and spondylosis with facet arthropathy without myelopathy presents today for medication refills. Pain level is provoked at 7 /10 in intensity, constant, localized in the R lumbar spine, predominantly axial, throbbing in character w occasional shooting to the R buttocks. Pain is provoked by bending, lifting, standing for periods of 15 min or more. Pain is alleviated with medications, injections, PT years ago, heat, repositioning and rest. Interventional pain procedures completed include R SI injection Patient is currently on MS ER 30mg #60, [place] 10/325mg #60, Tyl Patient denies any side effects of the medication(s), denies excessive drowsiness or sleepiness, denies suicidal ideation and reports that the current pain medication is helping to control the pain and improve activities of daily living. Patient denies any motor or sensory deficits. Patient denies any fever or night sweats, denies any change in the bowel movements or urination. Physical Examination: -Constitutional: Cooperative. Not in acute distress . - Neurologic: Cranial nerve II to XII intact. No focal neurological deficits. - Psychatric: Alert & oriented x 3. Matching mood & appropriate affect. Judgment and insight intact. - Musculoskeletal: Cervical spine: Muscle bulk/ tone/ strength in the bilateral upper extremities normal Vertebral body tenderness to palpation over Spurling test positive Distraction test positive Facet loading test positive TTP Thoracic spine Muscle bulk / tone/ strength in the bilateral paraspinal muscles normal Vertebral body tender to palpation over Facet loading test positive TTP Lumbar spine: Motor bulk/ tone/ strength lower extremities , thigh and legs : 5/5 Deep tendon reflexes : Normal Knee Jerk. Normal Ankle Jerk . Vertebral body tenderness to palpation over Lumbar Facet Loading Test positive Straight Leg Raise: positive at 30 degrees right side/ left side Gaenslen's Test positive Sacral spine : Severe tenderness over the Sacroiliac joint: right side / left side Range of motion: Flexion of the lumbar spine <60 degrees Range of motion: Extension of the lumbar spine <20 degrees Gaenslen's Test positive right side / left side Tiny test: positive right side / left side Thigh Thrust Test positive right side / left side Sacral Thrust Test positive right side / left side Assessment and plan: Chronic LBP secondary to lumbar DDD, spondylosis with facet arthropathy without myelopathy Chronic and current use of high-risk medication (Opioids). The patient was counseled about risk of opioid use, psychological risk associated with opioids and was orally counseled to not overuse , divert or sell medications. Pt is to store medication in a safe location. The patient is counseled against driving while using narcotic medications and also not to use alcohol or any illicit recreational drugs. Patient verbalized understanding that the lack of compliance will result in failure to renew narcotic prescription(s) as well as possible discharge from the clinic Diagnoses, prognosis and treatment options including but not limited to physical therapy, surgical interventions, interventional therapies and medication management including narcotics and adjuvant medication were discussed. All patient questions answered MAPS reviewed and it was appropriate. Prescription refill for MS ER 30mg #60 w 1 RF. I have spent less than 30 minutes on patient care today. Dr Dougherty was available by phone for the evaluation of this patient. The time was used to review the medical records including relevant urine studies and Prescription history (MAPs), review of the available imaging, evaluation and examination of the patient, coordination of care with the medical staff and if applicable referring physicians, as well as creation of the medical record PQRS Narrative: Smoking Status Former smoker Narcotic Agreement Date Signed 06/12/23 Hx Alcohol Use (MH) No Home Medications: Ambulatory Orders Butalb/Acetaminophen/Caffeine [Fioricet 50-325-40 mg Tablet] 1 tab PO TID PRN 04/11/14 INSULIN LISPRO (humaLOG) [humaLOG] See Protocol SQ AC-TID PRN 04/14/14 Budesonide-Formot 160-4.5 Mcg [Symbicort 160-4.5 Mcg Inhaler] 2 puff INHALATION RT-BID PRN 10/25/15 lisinopriL [Zestril] 40 mg PO HS 04/04/16 Insulin Glargine [Lantus Vial] 80 unit SQ HS 05/02/16 Pantoprazole [Protonix] 40 mg PO AC-BID #60 tablet. 12/19/16 Naloxone HCl [Narcan] 4 mg NASAL ONCE PRN #2 each 07/11/22 Morphine Sulfate ER [Ms Contin] 30 mg PO Q12H 30 Days #60 tab 10/02/23 Morphine Sulfate ER [Ms Contin] 30 mg PO Q12H 30 Days #60 tab 10/02/23 Controlled Substance Measures - Controlled Substance Measures Is patient prescribed a controlled substance at discharge?: Yes When asked, does pt state using other controlled substances?: No If prescribed controlled substance>3 days was MAPS reviewed?: Yes
== END ==
LOC: PNWHC3 10:28
PROVIDERS: ATTEND Specialist
DX: M51.36 Other intervertebral disc degeneration, lumbar region (principal); M47.816 Spondylosis without myelopathy or radiculopathy, lumbar region; G89.29 Other chronic pain; Z79.891 Long term (current) use of opiate analgesic; Z87.891 Personal history of nicotine dependence; Z88.6 Allergy status to analgesic agent; Z88.8 Allergy status to other drugs, medicaments and biological substances
CPT/HCPCS: 99211

== ENCOUNTER → 2023-11-27 | Outpatient (CLI) | payer MEDICARE, OTHER ==
[2023-11-27 10:54] VITALS: BP 141/88; PULSE 115; RESP 16; TEMP 97.1
--- NOTE | 2023-11-27 13:48 | P.PAINPG ---
PQRS Measure Charge Sheet Comment: A 68 yr old female with a history of severe and chronic LBP secondary to lumbar DDD and spondylosis with facet arthropathy without myelopathy presents today for medication refills. Pain level is provoked at 8 /10 in intensity, constant, localized in the R lumbar spine, predominantly axial, sharp in character w occasional shooting to the RLE. Pain is provoked by bending, lifting, standing for periods of 15 min or more. Pain is alleviated with medications, injections, PT years ago, heat, repositioning and rest. Interventional pain procedures completed include R SI injection Patient is currently on MS ER 30mg #60, [place] 10/325mg #60, Tyl Patient denies any side effects of the medication(s), denies excessive drowsiness or sleepiness, denies suicidal ideation and reports that the current pain medication is helping to control the pain and improve activities of daily living. Patient denies any motor or sensory deficits. Patient denies any fever or night sweats, denies any change in the bowel movements or urination. Physical Examination: -Constitutional: Cooperative. Not in acute distress . - Neurologic: Cranial nerve II to XII intact. No focal neurological deficits. - Psychatric: Alert & oriented x 3. Matching mood & appropriate affect. Judgment and insight intact. - Musculoskeletal: Cervical spine: Muscle bulk/ tone/ strength in the bilateral upper extremities normal Vertebral body tenderness to palpation over Spurling test positive Distraction test positive Facet loading test positive TTP Thoracic spine Muscle bulk / tone/ strength in the bilateral paraspinal muscles normal Vertebral body tender to palpation over Facet loading test positive TTP Lumbar spine: Motor bulk/ tone/ strength lower extremities , thigh and legs : 5/5 Deep tendon reflexes : Normal Knee Jerk. Normal Ankle Jerk . Vertebral body tenderness to palpation over Lumbar Facet Loading Test positive Straight Leg Raise: positive at 30 degrees right side/ left side Gaenslen's Test positive Sacral spine : Severe tenderness over the Sacroiliac joint: right side / left side Range of motion: Flexion of the lumbar spine <60 degrees Range of motion: Extension of the lumbar spine <20 degrees Gaenslen's Test positive right side / left side Tiny test: positive right side / left side Thigh Thrust Test positive right side / left side Sacral Thrust Test positive right side / left side Assessment and plan: Chronic LBP secondary to lumbar DDD, spondylosis with facet arthropathy without myelopathy Chronic and current use of high-risk medication (Opioids). The patient was counseled about risk of opioid use, psychological risk associated with opioids and was orally counseled to not overuse , divert or sell medications. Pt is to store medication in a safe location. The patient is counseled against driving while using narcotic medications and also not to use alcohol or any illicit recreational drugs. Patient verbalized understanding that the lack of compliance will result in failure to renew narcotic prescription(s) as well as possible discharge from the clinic Diagnoses, prognosis and treatment options including but not limited to physical therapy, surgical interventions, interventional therapies and medication management including narcotics and adjuvant medication were discussed. All patient questions answered MAPS reviewed and it was appropriate. Blood tox screen from 10/02/23 reviewed and +Opiates (MS ER) Prescription refill for MS ER 30mg #60 w 1 RF. I have spent less than 30 minutes on patient care today. Dr Dougherty was available by phone for the evaluation of this patient. The time was used to review the medical records including relevant urine studies and Prescription history (MAPs), review of the available imaging, evaluation and examination of the patient, coordination of care with the medical staff and if applicable referring physicians, as well as creation of the medical record PQRS Narrative: Smoking Status Former smoker Narcotic Agreement Date Signed 06/12/23 Hx Alcohol Use (MH) No Home Medications: Ambulatory Orders Butalb/Acetaminophen/Caffeine [Fioricet 50-325-40 mg Tablet] 1 tab PO TID PRN 04/11/14 INSULIN LISPRO (humaLOG) [humaLOG] See Protocol SQ AC-TID PRN 04/14/14 Budesonide-Formot 160-4.5 Mcg [Symbicort 160-4.5 Mcg Inhaler] 2 puff INHALATION RT-BID PRN 10/25/15 lisinopriL [Zestril] 40 mg PO HS 04/04/16 Insulin Glargine [Lantus Vial] 80 unit SQ HS 05/02/16 Pantoprazole [Protonix] 40 mg PO AC-BID #60 tablet. 12/19/16 Naloxone HCl [Narcan] 4 mg NASAL ONCE PRN #2 each 07/11/22 Morphine Sulfate ER [Ms Contin] 30 mg PO Q12H 30 Days #60 tab 11/27/23 Morphine Sulfate ER [Ms Contin] 30 mg PO Q12H 30 Days #60 tab 11/27/23 Controlled Substance Measures - Controlled Substance Measures Is patient prescribed a controlled substance at discharge?: Yes When asked, does pt state using other controlled substances?: Yes If prescribed controlled substance>3 days was MAPS reviewed?: Yes
== END ==
LOC: PNWHC3 10:25
PROVIDERS: ATTEND Specialist
DX: M41.9 Scoliosis, unspecified (principal); Z88.1 Allergy status to other antibiotic agents; Z88.8 Allergy status to other drugs, medicaments and biological substances; Z87.891 Personal history of nicotine dependence
CPT/HCPCS: 99211

== ENCOUNTER → 2024-01-22 | Outpatient (CLI) | payer MEDICARE, OTHER ==
[2024-01-22 11:59] VITALS: BP 165/85; PULSE 54; RESP 16
--- NOTE | 2024-01-22 15:18 | P.PAINPG ---
PQRS Measure Charge Sheet Comment: A 68 yr old female with a history of severe and chronic LBP secondary to lumbar DDD and spondylosis with facet arthropathy without myelopathy presents today for medication refills. Pain level is provoked at 7 /10 in intensity, constant, localized in the R lower lumbar spine, predominantly axial, sharp in character w occasional shooting to the back of the R knee. Pain is provoked by bending, lifting, standing for periods of 15 min or more. Pain is alleviated with medications, injections, PT years ago, heat, repositioning and rest. 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 She will follow up w her orthopedic surgeon. Interventional pain procedures completed include R SI injection Patient is currently on MS ER 30mg #60, [place] 10/325mg #60, Tyl Patient denies any side effects of the medication(s), denies excessive drowsiness or sleepiness, denies suicidal ideation and reports that the current pain medication is helping to control the pain and improve activities of daily living. Patient denies any motor or sensory deficits. Patient denies any fever or night sweats, denies any change in the bowel movements or urination. Physical Examination: -Constitutional: Cooperative. Not in acute distress . - Neurologic: Cranial nerve II to XII intact. No focal neurological deficits. - Psychatric: Alert & oriented x 3. Matching mood & appropriate affect. Judgment and insight intact. - Musculoskeletal: Cervical spine: Muscle bulk/ tone/ strength in the bilateral upper extremities normal Vertebral body tenderness to palpation over Spurling test positive Distraction test positive Facet loading test positive TTP Thoracic spine Muscle bulk / tone/ strength in the bilateral paraspinal muscles normal Vertebral body tender to palpation over Facet loading test positive TTP Lumbar spine: Motor bulk/ tone/ strength lower extremities , thigh and legs : 5/5 Deep tendon reflexes : Normal Knee Jerk. Normal Ankle Jerk . Vertebral body tenderness to palpation over Lumbar Facet Loading Test positive Straight Leg Raise: positive at 30 degrees right side/ left side Gaenslen's Test positive Sacral spine : Severe tenderness over the Sacroiliac joint: right side / left side Range of motion: Flexion of the lumbar spine <60 degrees Range of motion: Extension of the lumbar spine <20 degrees Gaenslen's Test positive right side / left side Tiny test: positive right side / left side Thigh Thrust Test positive right side / left side Sacral Thrust Test positive right side / left side Assessment and plan: Chronic LBP secondary to lumbar DDD, spondylosis with facet arthropathy without myelopathy Chronic and current use of high-risk medication (Opioids). The patient was counseled about risk of opioid use, psychological risk associated with opioids and was orally counseled to not overuse , divert or sell medications. Pt is to store medication in a safe location. The patient is counseled against driving while using narcotic medications and also not to use alcohol or any illicit recreational drugs. Patient verbalized understanding that the lack of compliance will result in failure to renew narcotic prescription(s) as well as possible discharge from the clinic Diagnoses, prognosis and treatment options including but not limited to physical therapy, surgical interventions, interventional therapies and medication management including narcotics and adjuvant medication were discussed. All patient questions answered MAPS reviewed and it was appropriate. Blood tox screen from 10/02/23 reviewed and +Opiates (MS ER) Prescription refill for MS ER 30mg #60 w 1 RF. I have spent less than 30 minutes on patient care today. Dr Dougherty was available by phone for the evaluation of this patient. The time was used to review the medical records including relevant urine studies and Prescription history (MAPs), review of the available imaging, evaluation and examination of the patient, coordination of care with the medical staff and if applicable referring physicians, as well as creation of the medical record PQRS Narrative: Smoking Status Former smoker Narcotic Agreement Date Signed 06/12/23 Hx Alcohol Use (MH) No Home Medications: Ambulatory Orders Butalb/Acetaminophen/Caffeine [Fioricet 50-325-40 mg Tablet] 1 tab PO TID PRN 04/11/14 INSULIN LISPRO (humaLOG) [humaLOG] See Protocol SQ AC-TID PRN 04/14/14 Budesonide-Formot 160-4.5 Mcg [Symbicort 160-4.5 Mcg Inhaler] 2 puff INHALATION RT-BID PRN 10/25/15 lisinopriL [Zestril] 40 mg PO HS 04/04/16 Insulin Glargine [Lantus Vial] 80 unit SQ HS 05/02/16 Pantoprazole [Protonix] 40 mg PO AC-BID #60 tablet. 12/19/16 Naloxone HCl [Narcan] 4 mg NASAL ONCE PRN #2 each 07/11/22 Morphine Sulfate ER [Ms Contin] 30 mg PO Q12H 30 Days #60 tab 01/22/24 Morphine Sulfate ER [Ms Contin] 30 mg PO Q12H 30 Days #60 tab 01/22/24 Controlled Substance Measures - Controlled Substance Measures Is patient prescribed a controlled substance at discharge?: Yes When asked, does pt state using other controlled substances?: Yes If prescribed controlled substance>3 days was MAPS reviewed?: Yes
== END ==
LOC: PNWHC3 10:37
PROVIDERS: ATTEND Specialist
DX: M51.36 Other intervertebral disc degeneration, lumbar region (principal); M47.816 Spondylosis without myelopathy or radiculopathy, lumbar region; Z79.891 Long term (current) use of opiate analgesic; Z87.891 Personal history of nicotine dependence; Z88.8 Allergy status to other drugs, medicaments and biological substances; Z88.6 Allergy status to analgesic agent
CPT/HCPCS: 99211

== ENCOUNTER 2024-03-09 11:55 | Observation (INO) | payer MEDICARE, OTHER ==
--- NOTE | 2024-03-09 12:34 | ED ---
Lower Extremity Injury HPI - General Chief Complaint: Extremity Injury, Lower Stated Complaint: R knee pain Time Seen by Provider: 03/09/24 12:33 Source: patient, RN notes reviewed Mode of arrival: wheelchair Limitations: physical limitation - History of Present Illness Initial Comments: 68-year-old female presenting to the ER with a chief complaint of right knee pain. Patient has a total right knee arthroplasty around 20 years ago by a physician who is now retired. She states for approximately 2-3 weeks she has been experiencing extreme pain in her right knee. She denies any injuries or traumas. She states she typically takes morphine for chronic back pain and morphine has not been touching her pain. She states it is extremely painful to bear weight or ambulate. She states she has been having falls due to the pain. She denies any injuries with those falls. She denies any fevers, chills, history of gout. No other complaints. - Related Data Home Medications Medication Instructions Recorded Confirmed Butalb/Acetaminophen/Caffeine 1 tab PO BID PRN 04/11/14 03/09/24 [Fioricet 50-325-40 mg Tablet] lisinopriL [Zestril] 40 mg PO DAILY 04/04/16 03/09/24 Albuterol Sulfate [Albuterol 2 puff PO RT-Q6H PRN 03/09/24 03/09/24 Sulfate Hfa] Atorvastatin [Lipitor] 10 mg PO DAILY 03/09/24 03/09/24 Insulin Glargine,Hum.rec.anlog 80 units SQ HS 03/09/24 03/09/24 [Lantus Solostar Pen] Insulin Lispro [humaLOG Kwikpen] See Protocol SQ AC-TID 03/09/24 03/09/24 Omeprazole [PriLOSEC] 20 mg PO DAILY 03/09/24 03/09/24 hydroCHLOROthiazide [Hydrodiuril] 25 mg PO DAILY 03/09/24 03/09/24 Previous Rx's Medication Instructions Recorded Morphine Sulfate ER [Ms Contin] 30 mg PO Q12H 30 Days #60 tab 01/22/24 Allergies Allergy/AdvReac Type Severity Reaction Status Date / Time gabapentin AdvReac Confusion Verified 03/09/24 15:39 ibuprofen [From Motrin] AdvReac Abdominal Verified 03/09/24 15:39 Pain and vomiting pregabalin [From Lyrica] AdvReac Confusion Verified 03/09/24 15:39 Review of Systems ROS Statement: Those systems with pertinent positive or pertinent negative responses have been documented in the HPI. ROS Other: All systems not noted in ROS Statement are negative. Past Medical History Past Medical History: Asthma, Cancer, COPD, Diabetes Mellitus, GERD/Reflux, Hyperlipidemia, Hypertension, Musculoskeletal Disorder Additional Past Medical History / Comment(s): Migraine headaches. Hx kidney stone. Chronic back pain, numbness and tingling bilateral lower extremities. RECENT RT BREAST CANCER DX History of Any Multi-Drug Resistant Organisms: MRSA Date of last positivie culture/infection: 2011 MDRO Source:: UNK Past Surgical History: Appendectomy, Back Surgery, Breast Surgery, Cholecystectomy, Joint Replacement, Orthopedic Surgery Additional Past Surgical History / Comment(s): Fusion w/ kane also back surgery 04/21/2019. Left Shoulder Replacement, Right knee replacement, plate in right wrist, left thumb joint repair, Right CTR, Right shoulder arthroscopy. micheal cataracts, LARYNGOSCOPY, November 2016 Cervical Plate, PAIN CLINIC PROCEDURES, right masectomy Past Anesthesia/Blood Transfusion Reactions: No Reported Reaction Past Psychological History: No Psychological Hx Reported Smoking Status: Former smoker Past Alcohol Use History: None Reported Past Drug Use History: None Reported - Past Family History Brother(s) Family Medical History: Cancer, Myocardial Infarction ([place]) Father Family Medical History: Cancer Additional Family Medical History / Comment(s): throat, colon, liver, and brain cancer. Mother Family Medical History: Myocardial Infarction ([place]) Additional Family Medical History / Comment(s): at 54 of [place]. General Exam Limitations: physical limitation General appearance: alert, in no apparent distress Respiratory exam: Present: normal lung sounds bilaterally. Absent: respiratory distress, wheezes, rales, rhonchi, stridor Cardiovascular Exam: Present: regular rate, normal rhythm, normal heart sounds. Absent: systolic murmur, diastolic murmur, rubs, gallop, clicks Extremities exam: Present: other (Right knee with a vertical well-healed surgical incision. Knee is warm to touch and has erythema. Patient has limited range of motion due to pain. 2+ right dorsalis pedis pulse. Sensation intact. No drainageOr wounds) Skin exam: Present: warm, dry, intact, normal color. Absent: rash Course Vital Signs 03/09/24 03/09/24 12:05 14:02 Temperature 98.1 F 98.1 F Pulse Rate 94 84 Respiratory 18 20 Rate Blood Pressure 147/76 137/84 O2 Sat by Pulse 97 97 Oximetry - Reevaluation(s) Reevaluation #1: 03/09/24 15:42 Case discussed with [facility], , accepts admission. Medical Decision Making - Medical Decision Making Was pt. sent in by a medical professional or institution (, PA, METAL LOADER, urgent care, hospital, or care home...) When possible be specific @ -[No] Did you speak to anyone other than the patient for history (EMS, parent, family, police, friend...)? What history was obtained from this source @ -[No] Did you review nursing and triage notes (agree or disagree)? Why? @ -[I reviewed and agree with nursing and triage notes] Were old charts reviewed (outside hosp., previous admission, EMS record, old EKG, old radiological studies, urgent care reports/EKG's, care home records)? Report findings @ -[No old charts were reviewed] Differential Diagnosis (chest pain, altered mental status, abdominal pain women, abdominal pain men, vaginal bleeding, weakness, fever, dyspnea, syncope, headache, dizziness, GI bleed, back pain, seizure, CVA, palpatations, mental health, musculoskeletal)? @ -[Differential Musculoskeletal: Muscular strain, contusion, ligament sprain, fracture, arthritis, septic arthritis, bursitis, cellulitis, muscle spasm, nerve compression, DVT, arterial occlusion, herpes zoster, electrolyte abnormality, tumor.... This is not meant to be in all inclusive list EKG interpreted by me (3pts min.). @ -None X-rays interpreted by me (1pt min.). @ -Right knee x-ray interpreted by me remarkable for region of sclerotic and lucent appearance of indeterminate age in the distal femoral metaphysis at its attachment to the femoral component of the knee arthroplasty. CT interpreted by me (1pt min.). @ -[None done] U/S interpreted by me (1pt. min.). @ -[None done] What testing was considered but not performed or refused? (CT, X-rays, U/S, labs)? Why? @ -[None] What meds were considered but not given or refused? Why? @ -[None] Did you discuss the management of the patient with other professionals (professionals i.e. Dr., PA, METAL LOADER, lab, RT, psych nurse, case management social worker, lead software development engineer, teacher, physics technical officer, returned case inspector)? Give summary @ -[Yes, case discussed with [facility], Dr. Jean, who accepts admission. ] Was smoking cessation discussed for >3mins.? @ -[No] Was critical care preformed (if so, how long)? @ -[No] Were there social determinants of health that impacted care today? How? (Homelessness, low income, unemployed, alcoholism, drug addiction, transportation, low edu. Level, literacy, decrease access to med. care, senior care, rehab)? @ -[No] Was there de-escalation of care discussed even if they declined (Discuss DNR or withdrawal of care, Hospice)? DNR status @ -[No] What co-morbidities impacted this encounter? (DM, HTN, Smoking, COPD, CAD, Cancer, CVA, ARF, Chemo, Hep., AIDS, mental health diagnosis, sleep apnea, morbid obesity)? @ -Hypertension, diabetes, obese Was patient admitted / discharged? Hospital course, mention meds given and route, prescriptions, significant lab abnormalities, going to OR and other pertinent info. @ -Admitted. 68-year-old female presenting to the ER with a chief complaint of right knee pain. Patient underwent a right knee arthroplasty about 20 years ago. History and physical exam completed. Vitals stable. Patient is tearful upon exam due to pain. No signs of acute respiratory distress. Right lower extremity neurovascularly intact. There is a well-healed vertical surgical incision.Through is mild surrounding erythema and warmth to touch. Patient is limited range of motion due to pain. Due to physical exam finding the patient is will be obtained to rule out infection or gout.Laboratory studies remarkable for with blood cell count 7.3, lactic 2.1, CRP 1.3. Right knee x-ray showing a foci of sclerotic and lucid appearance of the indeterminate clinical significance in the distal femoral metaphysis that is attached at the femoral component of the knee arthroplasty. Patient received IV fluids and 2 mg of IV Dilaudid with no improvement of pain. Upon reevaluation, patient resting comfortably in exam room in no signs of acute distress. Admission considered due to intractable pain. I discussed this case with [facility], Dr. Jean, who accepts admission. Ortho on consult. Patient agreeable for admission. Patient in stable condition for further care and treatment. Case discussed with the attending, Dr. Torre. Undiagnosed new problem with uncertain prognosis? @ -[No] Drug Therapy requiring intensive monitoring for toxicity (Heparin, Nitro, Insulin, Cardizem)? @ -[No] Were any procedures done? @ -[No] Diagnosis/symptom? @ -Intractable pain/knee pain Acute, or Chronic, or Acute on Chronic? @ -Acute Uncomplicated (without systemic symptoms) or Complicated (systemic symptoms)? @ -Uncomplicated Side effects of treatment? @ -[No] Exacerbation, Progression, or Severe Exacerbation? @ -[No] Poses a threat to life or bodily function? How? (Chest pain, USA, PA, pneumonia, PE, COPD, DKA, ARF, appy, cholecystitis, CVA, Diverticulitis, Homicidal, Suicidal, threat to staff... and all critical care pts) @ -No - Lab Data Result diagrams: 03/09/24 12:45 03/09/24 12:45 Lab Results 03/09/24 03/09/24 03/09/24 Range/Units 12:45 12:45 12:45 WBC 7.3 (3.8-10.6) k/uL RBC 5.13 (3.80-5.40) m/uL Hgb 14.2 (11.4-16.0) gm/dL Hct 42.3 (34.0-46.0) % MCV 82.4 (80.0-100.0) fL MCH 27.6 (25.0-35.0) pg MCHC 33.5 (31.0-37.0) g/dL RDW 13.7 (11.5-15.5) % Plt Count 228 (150-450) k/uL MPV 7.9 Neutrophils % 71 % Lymphocytes % 21 % Monocytes % 4 % Eosinophils % 2 % Basophils % 1 % Neutrophils # 5.2 (1.3-7.7) k/uL Lymphocytes # 1.5 (1.0-4.8) k/uL Monocytes # 0.3 (0-1.0) k/uL Eosinophils # 0.2 (0-0.7) k/uL Basophils # 0.0 (0-0.2) k/uL Sodium 132 L (137-145) mmol/L Potassium 5.1 (3.5-5.1) mmol/L Chloride 101 (98-107) mmol/L Carbon Dioxide 22 (22-30) mmol/L Anion Gap 9 mmol/L BUN 28 H (7-17) mg/dL Creatinine 0.92 (0.52-1.04) mg/dL Est GFR (CKD-EPI)AfAm 75 (>60 ml/min/1.73 sqM) Est GFR (CKD-EPI)NonAf 65 (>60 ml/min/1.73 sqM) Glucose 304 H (74-99) mg/dL Lactic Ac Sepsis Rflx Plasma Lactic Acid Vernon 2.1 H* (0.7-2.0) mmol/L Uric Acid 6.2 (3.7-7.4) mg/dL Calcium 9.4 (8.4-10.2) mg/dL Total Bilirubin 0.8 (0.2-1.3) mg/dL AST 42 H (14-36) U/L ALT 34 (4-34) U/L Alkaline Phosphatase 483 H (38-126) U/L C-Reactive Protein 1.3 H (<1.0) mg/dL Total Protein 7.3 (6.3-8.2) g/dL Albumin 4.0 (3.5-5.0) g/dL 03/09/24 Range/Units 13:11 WBC (3.8-10.6) k/uL RBC (3.80-5.40) m/uL Hgb (11.4-16.0) gm/dL Hct (34.0-46.0) % MCV (80.0-100.0) fL MCH (25.0-35.0) pg MCHC (31.0-37.0) g/dL RDW (11.5-15.5) % Plt Count (150-450) k/uL MPV Neutrophils % % Lymphocytes % % Monocytes % % Eosinophils % % Basophils % % Neutrophils # (1.3-7.7) k/uL Lymphocytes # (1.0-4.8) k/uL Monocytes # (0-1.0) k/uL Eosinophils # (0-0.7) k/uL Basophils # (0-0.2) k/uL Sodium (137-145) mmol/L Potassium (3.5-5.1) mmol/L Chloride (98-107) mmol/L Carbon Dioxide (22-30) mmol/L Anion Gap mmol/L BUN (7-17) mg/dL Creatinine (0.52-1.04) mg/dL Est GFR (CKD-EPI)AfAm (>60 ml/min/1.73 sqM) Est GFR (CKD-EPI)NonAf (>60 ml/min/1.73 sqM) Glucose (74-99) mg/dL Lactic Ac Sepsis Rflx Y Plasma Lactic Acid Vernon (0.7-2.0) mmol/L Uric Acid (3.7-7.4) mg/dL Calcium (8.4-10.2) mg/dL Total Bilirubin (0.2-1.3) mg/dL AST (14-36) U/L ALT (4-34) U/L Alkaline Phosphatase (38-126) U/L C-Reactive Protein (<1.0) mg/dL Total Protein (6.3-8.2) g/dL Albumin (3.5-5.0) g/dL - Radiology Data Radiology results: report reviewed, image reviewed Disposition Clinical Impression: Intractable pain, Knee pain Disposition: ADMITTED IP TO THIS [facility] Condition: Stable Referrals: Scarlet Dior MD [Primary Care Provider] - 1-2 days Time of Disposition: 15:43
[2024-03-09] MEDS: HYDROmorphone 1 MG/ML 1 ML SYRINGE IVP STA ×2 (12:47→14:01)
[2024-03-09 12:56] LABS: Basophils % (A) 1 %; Eosinophils # (A) 0.2 k/uL (0-0.7); Eosinophils % (A) 2 %; HCT 42.3 % (34.0-46.0); HGB 14.2 gm/dL (11.4-16.0); Lymphocytes # (A) 1.5 k/uL (1.0-4.8); Lymphocytes % (A) 21 %; MCH 27.6 pg (25.0-35.0); MCHC 33.5 g/dL (31.0-37.0); MCV 82.4 fL (80.0-100.0); Mean Platelet Volume 7.9; Monocytes # (A) 0.3 k/uL (0-1.0); Monocytes % (A) 4 %; Neutrophils # (A) 5.2 k/uL (1.3-7.7); Neutrophils % (A) 71 %; Platelet Count 228 k/uL (150-450); RBC 5.13 m/uL (3.80-5.40); RDW 13.7 % (11.5-15.5); WBC 7.3 k/uL (3.8-10.6)
[2024-03-09 13:05] LABS: ALT 34 U/L (4-34); African American GFR (CKD) 75 (>60 ml/min/1.73 sqM); Anion Gap 9 mmol/L; Blood Urea Nitrogen 28 mg/dL (7-17); Calcium 9.4 mg/dL (8.4-10.2); Carbon Dioxide 22 mmol/L (22-30); Chloride 101 mmol/L (98-107); Glucose 304 mg/dL (74-99); Non-African American GFR(CKD) 65 (>60 ml/min/1.73 sqM); Sodium 132 mmol/L (137-145); Total Bilirubin 0.8 mg/dL (0.2-1.3); Total Protein 7.3 g/dL (6.3-8.2); Uric Acid 6.2 mg/dL (3.7-7.4)
[2024-03-09 13:07] LABS: AST 42 U/L (14-36); Alkaline Phosphatase 483 U/L (38-126); Potassium 5.1 mmol/L (3.5-5.1)
[2024-03-09] MEDS: SODIUM CHLORIDE 0.9% 1,000 ML IV STA (13:23)
[2024-03-09 13:41] LABS: C Reactive Protein 1.3 mg/dL (<1.0)
--- NOTE | 2024-03-09 14:22 | XR ---
EXAMINATION TYPE: XR knee complete RT DATE OF EXAM: 03/09/2024 1:21 PM CLINICAL INDICATION:Female, 68 years old with history of pain and warmth; PHH COMPARISON: None. TECHNIQUE: XR knee complete RT; examined in Frontal, tunnel, lateral and oblique projections. FINDINGS: On the lateral view at the distal femoral metaphysis at the attachment site of the femora l component of the knee arthroplasty - there are foci of sclerotic and lucent appearance of indeterm inate clinical significance. No fracture or dislocation,, soft tissue swelling, or joint effusion is noted. : The hardware is in tact and well-positioned. The articulation is normally aligned. IMPRESSION: 1. Foci of sclerotic and lucent appearance of indeterminate clinical significance in the distal femor al metaphysis at its attachment to the femoral component of the knee arthroplasty
[2024-03-09] MEDS ORDERED: ONDANSETRON 4 MG/2 ML VIAL IVP PRN (15:26)
[2024-03-09] MEDS ORDERED: NALOXONE 0.4 MG/ML 1 ML VIAL IV PRN (15:26)
[2024-03-09] MEDS: HYDROmorphone 1 MG/ML 1 ML SYRINGE IVP PRN (16:04)
[2024-03-09] MEDS ORDERED: BUTALB/APAP/CAFF 50-325-40MG TAB PO PRN (20:45)
[2024-03-09] MEDS ORDERED: ALBUTEROL HFA INHALER INHALATION PRN (20:45)
[2024-03-09] MEDS ORDERED: ACETAMINOPHEN TAB 325 MG TAB PO PRN (20:46)
[2024-03-09] MEDS ORDERED: DEXTROSE 50% SYRINGE 50 ML IVP PRN ×2 (20:47)
[2024-03-09 20:50] LABS: Glucose,Whole Blood 271 mg/dL (70-110)
[2024-03-09] MEDS: MORPHINE SULFATE 2 MG/ML SYRINGE IVP PRN (21:05)
[2024-03-09] MEDS: INSULIN ASPART (NovoLOG) 100 UNIT/ML VIAL SQ SCH (21:06)
[2024-03-09] MEDS: INSULIN DETEMIR (LEVEMIR) 100 UNIT/ML SYR SQ SCH (21:28)
[2024-03-09] MEDS: SODIUM CHLORIDE 0.9% 1,000 ML IV SCH (21:42)
[2024-03-10 05:46] LABS: Glucose,Whole Blood 200 mg/dL (70-110)
--- NOTE | 2024-03-10 08:36 | P.CNOR ---
History of Present Illness - [facility] Consult date: 03/10/24 Consult reason: joint pain (Right knee pain) History of present illness: The patient is a 68 y/o female with a past medical history including diabetes, COPD, hypertension, breast cancer, and GERD, who presented to the ER at [facility] for complaints of severe knee pain. She had a previous right total knee arthroplasty almost 20 years ago by a local surgeon that has retired, she is unable to give the name of the physician. No previous issues with the knee until the last 2 weeks when she started having pain without a fall or injury. She denies fever, chills or feeling ill. She was seen in the ER at [place] and given pain medication and sent home. The patient normally takes morphine twice daily at home for low back pain but that is not touching the knee pain now. Orthopedics was consulted for further evaluation and care for the right knee. Review of Systems Constitutional: Denies chills, Denies fatigue, Denies fever Cardiovascular: Denies chest pain, Denies shortness of breath Respiratory: Denies cough Gastrointestinal: Denies diarrhea, Denies nausea, Denies vomiting Musculoskeletal: right: knee pain, knee stiffness, knee swelling Past Medical History Past Medical History: Asthma, Cancer, COPD, Diabetes Mellitus, GERD/Reflux, Hyperlipidemia, Hypertension, Musculoskeletal Disorder Additional Past Medical History / Comment(s): Migraine headaches. Hx kidney stone. Chronic back pain, numbness and tingling bilateral lower extremities. Right Breast cancer History of Any Multi-Drug Resistant Organisms: None Reported, MRSA Year Discovered:: 2011 MDRO Source:: UNK Past Surgical History: Appendectomy, Back Surgery, Breast Surgery, Cholecystectomy, Joint Replacement, Orthopedic Surgery Additional Past Surgical History / Comment(s): Fusion w/ kane also back surgery 04/21/2019. Left Shoulder Replacement, Right knee replacement, plate in right wrist, left thumb joint repair, Right CTR, Right shoulder arthroscopy. micheal cataracts, LARYNGOSCOPY, November 2016 Cervical Plate, PAIN CLINIC PROCEDURES, right masectomy Past Anesthesia/Blood Transfusion Reactions: No Reported Reaction Past Psychological History: No Psychological Hx Reported Smoking Status: Former smoker Past Alcohol Use History: None Reported Additional Past Alcohol Use History / Comment(s): SMOKED 1PPD, STARTED SMOKING AGE 17, AND QUIT IN 1981. Past Drug Use History: None Reported - Past Family History Brother(s) Family Medical History: Cancer, Myocardial Infarction ([place]) Father Family Medical History: Cancer Additional Family Medical History / Comment(s): throat, colon, liver, and brain cancer. Mother Family Medical History: Myocardial Infarction ([place]) Additional Family Medical History / Comment(s): at 54 of [place]. Medications and Allergies Home Medications Medication Instructions Recorded Confirmed Type Butalb/Acetaminophen/Caffeine 1 tab PO BID PRN 04/11/14 03/09/24 History [Fioricet 50-325-40 mg Tablet] lisinopriL [Zestril] 40 mg PO DAILY 04/04/16 03/09/24 History Morphine Sulfate ER [Ms Contin] 30 mg PO Q12H 30 Days #60 tab 01/22/24 03/09/24 Rx Albuterol Sulfate [Albuterol 2 puff PO RT-Q6H PRN 03/09/24 03/09/24 History Sulfate Hfa] Atorvastatin [Lipitor] 10 mg PO DAILY 03/09/24 03/09/24 History Insulin Glargine,Hum.rec.anlog 80 units SQ HS 03/09/24 03/09/24 History [Lantus Solostar Pen] Insulin Lispro [humaLOG Kwikpen] See Protocol SQ AC-TID 03/09/24 03/09/24 History Omeprazole [PriLOSEC] 20 mg PO DAILY 03/09/24 03/09/24 History hydroCHLOROthiazide [Hydrodiuril] 25 mg PO DAILY 03/09/24 03/09/24 History Allergies Allergy/AdvReac Type Severity Reaction Status Date / Time gabapentin AdvReac Confusion Verified 03/09/24 15:39 ibuprofen [From Motrin] AdvReac Abdominal Verified 03/09/24 15:39 Pain and vomiting pregabalin [From Lyrica] AdvReac Confusion Verified 03/09/24 15:39 Physical Examination The patient is a 68 y/o female in no acute distress. She is alert and oriented x3. Exam of the right knee reveales a well-healed incision to the anterior knee. There is a moderate effusion and slight warmth to touch but no erythema. She has pain with active and passive range of motion. On palpation, there is pain to the medial femoral condyle area. Calf is soft and nontender. Neurological and circulatory status is intact. Results X-ray of the right knee reveals no acute fracture but possible lucency to the femoral component. - Labs Labs: Abnormal Lab Results - Last 24 Hours (Table) 03/09/24 03/09/24 03/09/24 Range/Units 12:45 12:45 20:47 Sodium 132 L (137-145) mmol/L BUN 28 H (7-17) mg/dL Glucose 304 H (74-99) mg/dL POC Glucose (mg/dL) 271 H (70-110) mg/dL Plasma Lactic Acid Vernon 2.1 H* (0.7-2.0) mmol/L AST 42 H (14-36) U/L Alkaline Phosphatase 483 H (38-126) U/L C-Reactive Protein 1.3 H (<1.0) mg/dL 03/10/24 Range/Units 05:45 Sodium (137-145) mmol/L BUN (7-17) mg/dL Glucose (74-99) mg/dL POC Glucose (mg/dL) 200 H (70-110) mg/dL Plasma Lactic Acid Vernon (0.7-2.0) mmol/L AST (14-36) U/L Alkaline Phosphatase (38-126) U/L C-Reactive Protein (<1.0) mg/dL H & H 03/09/24 Range/Units 12:45 Hgb 14.2 (11.4-16.0) gm/dL Hct 42.3 (34.0-46.0) % Result Diagrams: 03/09/24 12:45 03/10/24 04:08 Assessment and Plan (1) History of right knee joint replacement Current Visit: Yes Status: Acute Code(s): Z96.651 - PRESENCE OF RIGHT ARTIFICIAL KNEE JOINT SNOMED Code(s): 990363175 (2) Knee pain Current Visit: Yes Status: Acute Code(s): M25.569 - PAIN IN UNSPECIFIED KNEE SNOMED Code(s): 9715333009 Plan: The clinical and x-ray findings were discussed with the patient. The case was discussed with Dr. Keene and Dr. Saucedo. Dr. Saucedo recommends aspiration of the knee to rule out infection due to the atraumatic knee pain. CRP was slightly elevated, D-dimer and ESR were ordered as well. Recommendations pending aspiration and further imaging of the right knee. Pain control per internal medicine or pain management if needed.
[2024-03-10 08:51] LABS: BUN/Creat Ratio 23.45 Ratio (12.00-20.00); Blood Urea Nitrogen 25.8 mg/dL (9.0-27.0); Calcium 8.6 mg/dL (8.7-10.3); Carbon Dioxide 24.4 mmol/L (21.6-31.8); Chloride 99 mmol/L (96-109); Glucose 204 mg/dL (70-110); Potassium 4.6 mmol/L (3.5-5.5); Sodium 133 mmol/L (135-145)
--- NOTE | 2024-03-10 10:20 | P.PN ---
Progress Note - Text I agree with prior consultation note by Amanda Miller NP. I also saw and examined the patient is morning. Briefly the patient is a very pleasant 68-year-old female with multiple medical problems including a BMI 43.9, poorly controlled diabetes with an elevated hemoglobin A1c of 11 and chronic pain and morphine. She had a right total knee replacement done close to 20 years ago. She is unaware of any perioperative complications particularly infection or drainage. She was doing relatively well until 2 weeks ago when she developed s evere atraumatic right knee pain. She ultimately presented to the emergency department. His morning at the time of my evaluation she is in moderate distress secondary to pain in her knee. She has a well-healed incision. There is a moderate effusion and slight warmth to touch but no erythema. She has pain with any attempts at passive range of motion. On review of her workup she has an elevated CRP and her hemoglobin A1c is 11.1. Her x-rays show a cementless right total knee replacement with possible loosening of the femoral implant but no obvious fractures. Her knee was aspirated this morning and 10 mL's of bloody fluid was aspirated. There was no obvious purulence. This was put into tubes and sent for a cell count with differential, cultures, and crystal analysis to rule out erika prosthetic joint infection or gout as the source of her pain. Based on the aspirate it does not appear to be infected (no purulence and blood) but rather supports aseptic loosening or fracture. In addition to evaluation of the synovial fluid I would also like to obtain a computed tomography scan of the knee without contrast to rule out occult periprosthetic fracture and a triple phase bone scan to rule out loosening of the implant. If the patient's knee is infected based on MSIS criteria she will need a 2-stage revision with removal of her existing knee replacement and placement of an antibiotic articulating spacer. If the knee is not infected she is a poor candidate for elective revision at this time and would need glycemic control and medical optimization prior to revision surgery. If the knee is not infected and the imaging supports loosening or fracture I recommend protected weightbearing with a brace and crutches or a walker and discharge to follow-up with me in the office. If the knee is infected we will plan on placement of antibiotic spacer at this hospitalization. I will defer pain control to the primary service given the patient's multiple medical issues and history of chronic pain on a morphine. Further recommendations are pending results of the knee aspiration and imaging. PROCEDURE: Verbal consent for right knee aspiration was obtained. The skin over the superolateral patella was prepped with ChloraPrep. Using sterile technique an 18-gauge needle was inserted into the suprapatellar pouch and 10 mL's of bloody fluid was aspirated. The needle was withdrawn and a Band-Aid was applied. The fluid was then transferred to a red and green top Vacutainer tube. The patient tolerated this well.
[2024-03-10] MEDS: ATORVASTATIN 10 MG TAB PO SCH (10:44)
[2024-03-10] MEDS: PANTOPRAZOLE 40 MG TABLET PO SCH (10:44)
[2024-03-10] MEDS: lisinopriL 20 MG TAB PO SCH (10:44)
[2024-03-10 11:11] LABS: Glucose,Whole Blood 219 mg/dL (70-110)
--- NOTE | 2024-03-10 12:23 | CT ---
EXAMINATION TYPE: CT knee RT wo con CT DLP: 286.6 mGycm, Automated exposure control for dose reduction was used. DATE OF EXAM: 03/10/2024 12:02 PM COMPARISON: Right knee radiographs 03/09/2024 CLINICAL INDICATION:Female, 68 years old with history of rule out occult periprosthetic fracture; PHH , Severe knee pain TECHNIQUE: Axial images were obtained of the right knee without the use of IV contrast. Additional c oronal and sagittal reformatted images and soft tissue and bone window were obtained for review. 3-D reconstruction was created on a separate workstation. FINDINGS: Postsurgical changes from total right knee arthroplasty. This creates streak artifact which significantly limits evaluation. Hardware appears intact with appropriate alignment. No periprosthet ic lucency identified to suggest loosening. There is sclerosis involving the distal femoral diaphysis and proximal tibial diaphysis of unknown significance. No gross evidence of acute fracture. No dislo cation. No significant soft tissue swelling or joint effusion is identified. No focal muscular atroph y or edema is identified. IMPRESSION: Post surgical changes right total knee arthroplasty. Hardware appears intact with appropriate alignme nt. Surrounding streak artifact from prosthesis limits evaluation. No gross evidence of acute fractur e.
--- NOTE | 2024-03-10 12:35 | P.HPIM ---
History of Present Illness H&P Date: 03/10/24 History of present illness; patient 68-year-old lady with past medical history significant for diabetes mellitus, hyperlipidemia, hypertension who the ER because of right knee pain. Patient stated that she has a history of right knee arthroplasty about 20 years ago. Patient was all right 2 weeks ago and started noticing that she was having increasing pain in her right knee. Pain was brought about by exertion and was relieved by pain. Patient with a hard time ambulating. Patient unable to bear weight on her right knee. Because of this knee pain, patient had come to the ER Initial lab work done in the ER showed WBC 7.3, hemoglobin 14.2, platelet count 228, sodium 132, potassium 5.1, BUN 28, creatinine 0.92, glucose 304, lactate 2.1, uric acid 6.2: Calcium 9.4, AST 42, alk phos 483, CRP 1.3 X-ray of the knee done showed foci of sclerotic and lucent appearance of intermediate clinical significance in the distal femoral metaphysis at its attachment to the femoral component of the knee arthroplasty Patient admitted to internal medicine service REVIEW OF SYSTEMS: CONSTITUTIONAL: No fever, no malaise, no fatigue. HEENT: No recent visual problems or hearing problems. Denied any sore throat. CARDIOVASCULAR: No chest pain, orthopnea, PND, no palpitations, no syncope. PULMONARY: No shortness of breath, no cough, no hemoptysis. GASTROINTESTINAL: No diarrhea, no nausea, no vomiting, no abdominal pain. NEUROLOGICAL: No headaches, no weakness, no numbness. HEMATOLOGICAL: Denies any bleeding or petechiae. GENITOURINARY: Denies any burning micturition, frequency, or urgency. MUSCULOSKELETAL/RHEUMATOLOGICAL: As mentioned above ENDOCRINE: Denies any polyuria or polydipsia. The rest of the 14-point review of systems is negative. PHYSICAL EXAMINATION: GENERAL: The patient is alert and oriented x3, not in any acute distress. Well developed, well nourished. HEENT: Pupils are round and equally reacting to light. EOMI. No scleral icterus. No conjunctival pallor. Normocephalic, atraumatic. No pharyngeal erythema. No thyromegaly. CARDIOVASCULAR: S1 and S2 present. No murmurs, rubs, or gallops. PULMONARY: Chest is clear to auscultation, no wheezing or crackles. ABDOMEN: Soft, nontender, nondistended, normoactive bowel sounds. No palpable organomegaly. MUSCULOSKELETAL: No joint swelling or deformity. EXTREMITIES: No cyanosis, clubbing, or pedal edema. NEUROLOGICAL: Gross neurological examination did not reveal any focal deficits. SKIN: No rashes. Assessment and plan Right knee pain Diabetes mellitus hypertension hyperlipidemia Monitor vital signs Monitor CBC Monitor CMP Ordered IV pain medication order CT scan of the right knee Ordered CRP and ESR Consulted PT and OT Consulted orthopedics Labs and medication were reviewed.. Continue same treatment. Continue with symptomatic treatment. Resume home medication. Monitor labs and vitals. DVT and GI prophylaxis. Further recommendations as per clinical course of the patient Dictation was produced using [employer] dictation software. please excuse any grammatical, word or spelling errors. Past Medical History Past Medical History: Asthma, Cancer, COPD, Diabetes Mellitus, GERD/Reflux, Hyperlipidemia, Hypertension, Musculoskeletal Disorder Additional Past Medical History / Comment(s): Migraine headaches. Hx kidney stone. Chronic back pain, numbness and tingling bilateral lower extremities. Right Breast cancer History of Any Multi-Drug Resistant Organisms: None Reported, MRSA Date of last positivie culture/infection: 2011 MDRO Source:: UNK Past Surgical History: Appendectomy, Back Surgery, Breast Surgery, Cholecystect connor, Joint Replacement, Orthopedic Surgery Additional Past Surgical History / Comment(s): Fusion w/ kane also back surgery 04/21/2019. Left Shoulder Replacement, Right knee replacement, plate in right wrist, left thumb joint repair, Right CTR, Right shoulder arthroscopy. micheal c ataracts, LARYNGOSCOPY, November 2016 Cervical Plate, PAIN CLINIC PROCEDURES, right masectomy Past Anesthesia/Blood Transfusion Reactions: No Reported Reaction Past Psychological History: No Psychological Hx Reported Smoking Status: Former smoker Past Alcohol Use History: None Reported Additional Past Alcohol Use History / Comment(s): SMOKED 1PPD, STARTED SMOKING AGE 17, AND QUIT IN 1981. Past Drug Use History: None Reported - Past Family History Brother(s) Family Medical History: Cancer, Myocardial Infarction ([place]) Father Family Medical History: Cancer Additional Family Medical History / Comment(s): throat, colon, liver, and brain cancer. Mother Family Medical History: Myocardial Infarction ([place]) Additional Family Medical History / Comment(s): at 54 of [place]. Medications and Allergies Home Medications Medication Instructions Recorded Confirmed Type Butalb/Acetaminophen/Caffeine 1 tab PO BID PRN 04/11/14 03/09/24 History [Fioricet 50-325-40 mg Tablet] lisinopriL [Zestril] 40 mg PO DAILY 04/04/16 03/09/24 History Morphine Sulfate ER [Ms Contin] 30 mg PO Q12H 30 Days #60 tab 01/22/24 03/09/24 Rx Albuterol Sulfate [Albuterol 2 puff PO RT-Q6H PRN 03/09/24 03/09/24 History Sulfate Hfa] Atorvastatin [Lipitor] 10 mg PO DAILY 03/09/24 03/09/24 History Insulin Glargine,Hum.rec.anlog 80 units SQ HS 03/09/24 03/09/24 History [Lantus Solostar Pen] Insulin Lispro [humaLOG Kwikpen] See Protocol SQ AC-TID 03/09/24 03/09/24 History Omeprazole [PriLOSEC] 20 mg PO DAILY 03/09/24 03/09/24 History hydroCHLOROthiazide [Hydrodiuril] 25 mg PO DAILY 03/09/24 03/09/24 History Allergies Allergy/AdvReac Type Severity Reaction Status Date / Time gabapentin AdvReac Confusion Verified 03/09/24 15:39 ibuprofen [From Motrin] AdvReac Abdominal Verified 03/09/24 15:39 Pain and vomiting pregabalin [From Lyrica] AdvReac Confusion Verified 03/09/24 15:39 Physical Exam Vitals: Vital Signs Temp Pulse Pulse Resp BP BP BP 03/10/24 07:52 67 16 03/10/24 07:29 98.1 F 67 16 103/58 03/10/24 00:56 98 F 77 17 113/63 03/09/24 19:48 97.7 F 83 20 137/82 03/09/24 18:48 97.7 F 83 17 170/80 03/09/24 16:00 85 16 144/83 03/09/24 14:02 98.1 F 84 20 137/84 03/09/24 12:05 98.1 F 94 18 147/76 Pulse Ox 03/10/24 07:52 03/10/24 07:29 97 03/10/24 00:56 99 03/09/24 19:48 96 03/09/24 18:48 95 03/09/24 16:00 98 03/09/24 14:02 97 03/09/24 12:05 97 Intake and Output 03/09/24 03/10/24 03/10/24 22:59 06:59 14:59 Other: # Voids 1 7 Weight 108.862 kg Results CBC & Chem 7: 03/09/24 12:45 03/10/24 04:08 Labs: Abnormal Lab Results - Last 24 Hours (Table) 03/09/24 03/09/24 03/09/24 Range/Units 12:45 12:45 20:47 Sodium 132 L (137-145) mmol/L BUN 28 H (7-17) mg/dL Est GFR (CKD-EPI) (>=60) BUN/Creatinine Ratio (12.00-20.00) Ratio Glucose 304 H (74-99) mg/dL POC Glucose (mg/dL) 271 H (70-110) mg/dL Hemoglobin A1c (<=6.0) % Plasma Lactic Acid Vernon 2.1 H* (0.7-2.0) mmol/L Calcium (8.7-10.3) mg/dL AST 42 H (14-36) U/L Alkaline Phosphatase 483 H (38-126) U/L C-Reactive Protein 1.3 H (<1.0) mg/dL 03/10/24 03/10/24 03/10/24 Range/Units 04:08 04:08 05:45 Sodium 133 L (137-145) mmol/L BUN (7-17) mg/dL Est GFR (CKD-EPI) 55 L (>=60) BUN/Creatinine Ratio 23.45 H (12.00-20.00) Ratio Glucose 204 H (74-99) mg/dL POC Glucose (mg/dL) 200 H (70-110) mg/dL Hemoglobin A1c 11.1 H (<=6.0) % Plasma Lactic Acid Vernon (0.7-2.0) mmol/L Calcium 8.6 L (8.7-10.3) mg/dL AST (14-36) U/L Alkaline Phosphatase (38-126) U/L C-Reactive Protein (<1.0) mg/dL Thrombosis Risk Factor Assmnt - Choose All That Apply Any of the Below Risk Factors Present?: Yes Each Factor Represents 1 point: Obesity (BMI >25) Each Risk Factor Represents 2 Points: Age 61-74 years Thrombosis Risk Factor Assessment Total Risk Factor Score: 3 Thrombosis Risk Factor Assessment Level: Moderate Risk
[2024-03-10 15:08] LABS: Appearance,BF Bloody; Nucleated Cells, Body Fluid 60 /uL; RBC, Body Fluid 883000 /uL
[2024-03-10 15:15] LABS: Mononuclear WBC,Body Fluid 72 %; Polynuclear WBC,Body Fluid 28 %; Total Cells Counted,Body Fluid 100
[2024-03-10 16:29] LABS: Glucose,Whole Blood 333 mg/dL (70-110)
[2024-03-10 20:36] LABS: Glucose,Whole Blood 249 mg/dL (70-110)
[2024-03-10 21:36] LABS: Synovial Fld Crystals None Seen (None Seen)
--- NOTE | 2024-03-10 22:13 | P.CONS ---
History of Present Illness - Reason for Consult Consult date: 03/10/24 Right knee pain questionably infection Requesting physician: Barrett Jean - Chief Complaint Right knee pain x 2 weeks - History of Present Illness Patient is a 68-year-old female with a past medical history significant for diabetes mellitus reflux hypertension hyperlipidemia COPD cancer asthma presenting to the hospital for evaluation of right knee pain patient did have history of right knee replacement 20 years ago about 2 weeks ago patient noticed to having some aching to the right knee area without any history of any trauma or fall that has progressed to get worse to the point that she was unable to put any weight on it with the excruciating pain almost 10 out of 10 without any radiation patient has significant swelling or redness however did have warmt h to the medial aspect of the knee area with the symptoms the patient has been evaluated on presentation to the hospital patient was afebrile and no fever have been recorded subsequently patient was not tachycardic hypotensive or hypoxic patient did have a white count of 7.3 creatinine has been normal AST mildly elevated patient did have a x-ray of the knee foci of sclerotic and lucent appearance of indeterminate clinical significance in the distal femoral metaphysis patient also have a knee CT postsurgical changes right total knee arthroplasty hardware appears intact with appropriate alignment no gross evidence of any fracture patient did have aspiration of the knee completed by orthopedics infectious was consulted concerning for possible infection/septic arthritis Review of Systems Positive point and negatives has been mentioned in the HPI, complete review of systems was performed and all other systems are negative Past Medical History Past Medical History: Asthma, Cancer, COPD, Diabetes Mellitus, GERD/Reflux, Hyp erlipidemia, Hypertension, Musculoskeletal Disorder Additional Past Medical History / Comment(s): Migraine headaches. Hx kidney stone. Chronic back pain, numbness and tingling bilateral lower extremities. Right Breast cancer History of Any Multi-Drug Resistant Organisms: None Reported, MRSA Year Discovered:: 2011 MDRO Source:: UNK Past Surgical History: Appendectomy, Back Surgery, Breast Surgery, Cholecystectomy, Joint Replacement, Orthopedic Surgery Additional Past Surgical History / Comment(s): Fusion w/ kane also back surgery 04/21/2019. Left Shoulder Replacement, Right knee replacement, plate in right wrist, left thumb joint repair, Right CTR, Right shoulder arthroscopy. micheal cataracts, LARYNGOSCOPY, November 2016 Cervical Plate, PAIN CLINIC PROCEDURES, right masectomy Past Anesthesia/Blood Transfusion Reactions: No Reported Reaction Past Psychological History: No Psychological Hx Reported Smoking Status: Former smoker Past Alcohol Use History: None Reported Additional Past Alcohol Use History / Comment(s): SMOKED 1PPD, STARTED SMOKING AGE 17, AND QUIT IN 1981. Past Drug Use History: None Reported - Past Family History Brother(s) Family Medical History: Cancer, Myocardial Infarction ([place]) Father Family Medical History: Cancer Additional Family Medical History / Comment(s): throat, colon, liver, and brain cancer. Mother Family Medical History: Myocardial Infarction ([place]) Additional Family Medical History / Comment(s): at 54 of [place]. Medications and Allergies Home Medications Medication Instructions Recorded Confirmed Type Butalb/Acetaminophen/Caffeine 1 tab PO BID PRN 04/11/14 03/09/24 History [Fioricet 50-325-40 mg Tablet] lisinopriL [Zestril] 40 mg PO DAILY 04/04/16 03/09/24 History Morphine Sulfate ER [Ms Contin] 30 mg PO Q12H 30 Days #60 tab 01/22/24 03/09/24 Rx Albuterol Sulfate [Albuterol 2 puff PO RT-Q6H PRN 03/09/24 03/09/24 History Sulfate Hfa] Atorvastatin [Lipitor] 10 mg PO DAILY 03/09/24 03/09/24 History Insulin Glargine,Hum.rec.anlog 80 units SQ HS 03/09/24 03/09/24 History [Lantus Solostar Pen] Insulin Lispro [humaLOG Kwikpen] See Protocol SQ AC-TID 03/09/24 03/09/24 History Omeprazole [PriLOSEC] 20 mg PO DAILY 03/09/24 03/09/24 History hydroCHLOROthiazide [Hydrodiuril] 25 mg PO DAILY 03/09/24 03/09/24 History Allergies Allergy/AdvReac Type Severity Reaction Status Date / Time gabapentin AdvReac Confusion Verified 03/09/24 15:39 ibuprofen [From Motrin] AdvReac Abdominal Verified 03/09/24 15:39 Pain and vomiting pregabalin [From Lyrica] AdvReac Confusion Verified 03/09/24 15:39 Physical Exam Vitals: Vital Signs Temp Pulse Pulse Resp BP BP BP 03/10/24 13:32 98.7 F 83 16 131/71 03/10/24 10:45 105 H 143/83 03/10/24 07:52 67 16 03/10/24 07:29 98.1 F 67 16 103/58 03/10/24 00:56 98 F 77 17 113/63 03/09/24 19:48 97.7 F 83 20 137/82 03/09/24 18:48 97.7 F 83 17 170/80 03/09/24 16:00 85 16 144/83 Pulse Ox 03/10/24 13:32 96 03/10/24 10:45 03/10/24 07:52 03/10/24 07:29 97 03/10/24 00:56 99 03/09/24 19:48 96 03/09/24 18:48 95 03/09/24 16:00 98 Intake and Output 03/10/24 03/10/24 03/10/24 06:59 14:59 22:59 Other: # Voids 7 GENERAL DESCRIPTION: Elderly female lying in bed, no distress. No tachypnea or accessory muscle of respiration use. HEENT: Shows Pallor , no scleral icterus. Oral mucous membrane is dry. No pharyngeal erythema or thrush NECK: Trachea central, no thyromegaly. LUNGS: Unlabored breathing. Clear to auscultation anteriorly. No wheeze or crackle. HEART: S1, S2, regular rate and rhythm. No loud murmur ABDOMEN: Soft, no tenderness , guarding or rigidity, no organomegaly EXTREMITIES: Right knee minimal swelling slightly warm no significant redness open wound or any drainage SKIN: No rash, no masses palpable. NEUROLOGICAL: The patient is awake, alert, oriented x3, mood and affect normal. Results CBC & Chem 7: 03/09/24 12:45 03/10/24 04:08 Labs: Abnormal Lab Results - Last 24 Hours (Table) 03/09/24 03/10/24 03/10/24 Range/Units 20:47 04:08 04:08 D-Dimer (<0.60) mg/L FEU Sodium 133 L (135-145) mmol/L Est GFR (CKD-EPI) 55 L (>=60) BUN/Creatinine Ratio 23.45 H (12.00-20.00) Ratio Glucose 204 H (70-110) mg/dL POC Glucose (mg/dL) 271 H (70-110) mg/dL Hemoglobin A1c 11.1 H (<=6.0) % Calcium 8.6 L (8.7-10.3) mg/dL 03/10/24 03/10/24 03/10/24 Range/Units 05:45 09:33 11:10 D-Dimer 2.25 H (<0.60) mg/L FEU Sodium (135-145) mmol/L Est GFR (CKD-EPI) (>=60) BUN/Creatinine Ratio (12.00-20.00) Ratio Glucose (70-110) mg/dL POC Glucose (mg/dL) 200 H 219 H (70-110) mg/dL Hemoglobin A1c (<=6.0) % Calcium (8.7-10.3) mg/dL Assessment and Plan (1) Knee pain Current Visit: Yes Status: Acute Code(s): M25.569 - PAIN IN UNSPECIFIED KNEE SNOMED Code(s): 7255782949 Plan: 1patient presented to hospital with intractable right knee pain and this patient who did have a history of right knee arthroplasty 20 years ago now with worsening pain questionably hardware failure however CAT scan did not show any misalignment patient is clinically behaving as infection with no fever or elevated white count and no significant redness. 2await the fluid analysis obtained by orthopedics. 3with low clinical suspicion for septic arthritis infection we will hold on adding any systemic antibiotic therapy at this point We will follow on clinical condition and cultures to further adjust medication if needed Thank you for this consultation we will follow the patient along with you Dictation was produced using [employer] dictation software. please excuse any grammatical, word or spelling errors. Time with Patient: Greater than 30
[2024-03-10] MEDS: HYDROcodone/APAP 5-325MG 1 EACH TAB PO PRN (23:24)
[2024-03-11 05:58] LABS: Glucose,Whole Blood 155 mg/dL (70-110)
[2024-03-11 11:12] LABS: Glucose,Whole Blood 237 mg/dL (70-110)
--- NOTE | 2024-03-11 13:06 | P.PN ---
Subjective Progress Note Date: 03/11/24 patient 68-year-old lady with past medical history significant for diabetes mellitus, hyperlipidemia, hypertension who the ER because of right knee pain. Patient stated that she has a history of right knee arthroplasty about 20 years ago. Patient was all right 2 weeks ago and started noticing that she was having increasing pain in her right knee. Pain was brought about by exertion and was relieved by pain. Patient with a hard time ambulating. Patient unable to bear weight on her right knee. Because of this knee pain, patient had come to the ER Initial lab work done in the ER showed WBC 7.3, hemoglobin 14.2, platelet count 228, sodium 132, potassium 5.1, BUN 28, creatinine 0.92, glucose 304, lactate 2.1, uric acid 6.2: Calcium 9.4, AST 42, alk phos 483, CRP 1.3 X-ray of the knee done showed foci of sclerotic and lucent appearance of intermediate clinical significance in the distal femoral metaphysis at its attachment to the femoral component of the knee arthroplasty Patient admitted to internal medicine service 03/11. Patient seen and examined. Still complaining of right knee pain. States she wants the pain to go away. Unable to ambulate because of it. REVIEW OF SYSTEMS: CONSTITUTIONAL: No fever, no malaise,. CARDIOVASCULAR: No chest pain, no palpitations, no syncope. PULMONARY: No shortness of breath, no cough, GASTROINTESTINAL: No diarrhea, no nausea, no vomiting, no abdominal pain. NEUROLOGICAL: No headaches, no weakness, PHYSICAL EXAMINATION: GENERAL: The patient is alert and oriented x3, not in any acute distress. Well developed, well nourished. HEENT: Pupils are round and equally reacting to light. EOMI. No scleral icterus. No conjunctival pallor. Normocephalic, atraumatic. No pharyngeal erythema. No thyromegaly. CARDIOVASCULAR: S1 and S2 present. No murmurs, rubs, or gallops. PULMONARY: Chest is clear to auscultation, no wheezing or crackles. ABDOMEN: Soft, nontender, nondistended, normoactive bowel sounds. No palpable organomegaly. MUSCULOSKELETAL: No joint swelling or deformity. EXTREMITIES: No cyanosis, clubbing, or pedal edema. NEUROLOGICAL: Gross neurological examination did not reveal any focal deficits. SKIN: No rashes. Assessment and plan Right knee pain Diabetes mellitus hypertension hyperlipidemia Monitor vital signs Monitor CBC Monitor CMP Continue IV pain medication CT scan of the right knee does not show any fractures Bone scan ordered Monitor blood sugar levels, continue current insulin regimen ID following PT and OT following Orthopedic following Labs and medication were reviewed.. Continue same treatment. Continue with symptomatic treatment. Resume home medication. Monitor labs and vitals. DVT a nd GI prophylaxis. Further recommendations as per clinical course of the patient Dictation was produced using [employer] dictation software. please excuse any grammatical, word or spelling errors. Objective - Vital Signs Vital signs: Vital Signs Temp 97.7 F 03/11/24 06:51 Pulse 64 03/11/24 06:51 Resp 17 03/11/24 09:42 BP 120/69 03/11/24 06:51 Pulse Ox 96 03/11/24 06:51 FiO2 Intake & Output 03/10/24 03/11/24 03/11/24 18:59 06:59 18:59 Intake Total 600 540 Balance 600 540 Intake: Intake, IV Titration 600 Amount Sodium Chloride 0.9% 1, 600 000 ml @ 50 mls/hr IV . Q20H [facility] Rx#:[id number] Oral 540 Other: Voiding Method Toilet # Voids 3 7 1 # Bowel Movements 1 - Labs CBC & Chem 7: 03/09/24 12:45 03/10/24 04:08 Labs: Abnormal Lab Results - Last 24 Hours (Table) 03/10/24 03/10/24 03/10/24 Range/Units 09:33 09:33 11:10 ESR 53 H (0-30) mm/Hr D-Dimer 2.25 H (<0.60) mg/L FEU POC Glucose (mg/dL) 219 H (70-110) mg/dL 03/10/24 03/10/24 03/11/24 Range/Units 16:27 20:35 05:56 ESR (0-30) mm/Hr D-Dimer (<0.60) mg/L FEU POC Glucose (mg/dL) 333 H 249 H 155 H (70-110) mg/dL Microbiology - Last 24 Hours (Table) 03/10/24 10:00 Gram Stain - Preliminary Knee - Right
[2024-03-11 16:00] VITALS: BMI 43.9
[2024-03-11 16:14] LABS: Glucose,Whole Blood 263 mg/dL (70-110)
[2024-03-11 20:29] LABS: Glucose,Whole Blood 243 mg/dL (70-110)
[2024-03-12 06:23] LABS: Glucose,Whole Blood 98 mg/dL (70-110)
--- NOTE | 2024-03-12 09:14 | P.PN ---
Subjective Progress Note Date: 03/12/24 No acute events overnight. She continues to have pain in her right knee. Objective - Vital Signs Vital signs: Vital Signs Temp 97.6 F 03/12/24 06:55 Pulse 71 03/12/24 06:55 Resp 20 03/12/24 06:55 BP 119/72 03/12/24 06:55 Pulse Ox 95 03/12/24 06:55 FiO2 Intake & Output 03/11/24 03/12/24 03/12/24 18:59 06:59 18:59 Intake Total 10 Balance 10 Weight 108.862 kg Intake: IV 10 Invasive Line 1 10 Other: Voiding Method Toilet Toilet # Voids 3 3 # Bowel Movements 1 - Exam Patient is resting in bed eating breakfast. This morning at time of exam she has mild distress secondary the pain in her right knee. They are awake, alert and able to answer questions. - Labs CBC & Chem 7: 03/09/24 12:45 03/10/24 04:08 Labs: Abnormal Lab Results - Last 24 Hours (Table) 03/11/24 03/11/24 03/11/24 Range/Units 11:11 16:12 20:26 POC Glucose (mg/dL) 237 H 263 H 243 H (70-110) mg/dL Microbiology - Last 24 Hours (Table) 03/10/24 10:00 Gram Stain - Preliminary Knee - Right Body Fluid Culture - Preliminary Assessment and Plan Plan: Low suspicion for infection at this time. Recommend toe-touch weightbearing, hinged knee brace, and a walker. Bone scan report pending. At this time with elevated hemoglobin A1c she would be a poor surgical candidate. Recommend tight glycemic control. Decision for revision will be made at a later date. Can be discharged from an orthopedic standpoint when medically cleared. Pain control per primary. Follow-up in office after discharge.
[2024-03-12 11:21] LABS: Glucose,Whole Blood 156 mg/dL (70-110)
--- NOTE | 2024-03-12 12:13 | P.PN ---
Subjective Progress Note Date: 03/12/24 patient 68-year-old lady with past medical history significant for diabetes mellitus, hyperlipidemia, hypertension who the ER because of right knee pain. Patient stated that she has a history of right knee arthroplasty about 20 years ago. Patient was all right 2 weeks ago and started noticing that she was having increasing pain in her right knee. Pain was brought about by exertion and was relieved by pain. Patient with a hard time ambulating. Patient unable to bear weight on her right knee. Because of this knee pain, patient had come to the ER Initial lab work done in the ER showed WBC 7.3, hemoglobin 14.2, platelet count 228, sodium 132, potassium 5.1, BUN 28, creatinine 0.92, glucose 304, lactate 2.1, uric acid 6.2: Calcium 9.4, AST 42, alk phos 483, CRP 1.3 X-ray of the knee done showed foci of sclerotic and lucent appearance of intermediate clinical significance in the distal femoral metaphysis at its attachment to the femoral component of the knee arthroplasty Patient admitted to internal medicine service 03/11. Patient seen and examined. Still complaining of right knee pain. States she wants the pain to go away. Unable to ambulate because of it. 03/12. Patient seen and examined. States right knee pain has improved. REVIEW OF SYSTEMS: CONSTITUTIONAL: No fever, no malaise,. CARDIOVASCULAR: No chest pain, no palpitations, no syncope. PULMONARY: No shortness of breath, no cough, GASTROINTESTINAL: No diarrhea, no nausea, no vomiting, no abdominal pain. NEUROLOGICAL: No headaches, no weakness, PHYSICAL EXAMINATION: GENERAL: The patient is alert and oriented x3, not in any acute distress. Well developed, well nourished. HEENT: Pupils are round and equally reacting to light. EOMI. No scleral icterus. No conjunctival pallor. Normocephalic, atraumatic. No pharyngeal erythema. No thyromegaly. CARDIOVASCULAR: S1 and S2 present. No murmurs, rubs, or gallops. PULMONARY: Chest is clear to auscultation, no wheezing or crackles. ABDOMEN: Soft, nontender, nondistended, normoactive bowel sounds. No palpable organomegaly. MUSCULOSKELETAL: No joint swelling or deformity. EXTREMITIES: No cyanosis, clubbing, or pedal edema. NEUROLOGICAL: Gross neurological examination did not reveal any focal deficits. SKIN: No rashes. Assessment and plan Right knee pain Diabetes mellitus hypertension hyperlipidemia Monitor vital signs Monitor CBC Monitor CMP Continue IV pain medication CT scan of the right knee does not show any fractures Bone scan ordered Monitor blood sugar levels, continue current insulin regimen ID following PT and OT following Orthopedic following Labs and medication were reviewed.. Continue same treatment. Continue with symptomatic treatment. Resume home medication. Monitor labs and vitals. DVT and GI prophylaxis. Further recommendations as per clinical course of the patient Dictation was produced using [employer] dictation software. please excuse any grammatical, word or spelling errors. Objective - Vital Signs Vital signs: Vital Signs Temp 97.6 F 03/12/24 06:55 Pulse 71 03/12/24 06:55 Resp 20 03/12/24 06:55 BP 119/72 03/12/24 06:55 Pulse Ox 95 03/12/24 06:55 FiO2 Intake & Output 03/11/24 03/12/24 03/12/24 18:59 06:59 18:59 Intake Total 10 180 Balance 10 180 Weight 108.862 kg Intake: IV 10 Invasive Line 1 10 Oral 180 Other: Voiding Method Toilet Toilet # Voids 3 3 # Bowel Movements 1 - Labs CBC & Chem 7: 03/09/24 12:45 03/10/24 04:08 Labs: Abnormal Lab Results - Last 24 Hours (Table) 03/11/24 03/11/24 03/12/24 Range/Units 16:12 20:26 11:17 POC Glucose (mg/dL) 263 H 243 H 156 H (70-110) mg/dL Microbiology - Last 24 Hours (Table) 03/10/24 10:00 Gram Stain - Preliminary Knee - Right Body Fluid Culture - Preliminary
--- NOTE | 2024-03-12 12:13 | NM ---
EXAMINATION TYPE: NM bone 3 phase DATE OF EXAM: 03/11/2024 COMPARISON: Recent right knee radiographs and recent right knee CT CLINICAL INDICATION: Female, 68 years old with history of rule out loosening of right total knee. P ain and warmth in right knee. Bilateral knee arthroplasty 20 years ago. Triple phase bone scintigraphy was performed following the injection of 26 mCi Tc 99m MDP. Immediate images, blood pool and 5.5 hours post injection images acquired. FINDINGS: There is abnormal uptake in the right proximal tibial plateau and small focus medial right femoral me taphysis on blood flow, blood pool and delayed images. Questionably small intermediate degree of upta ke around the left tibial component laterally and medial and lateral aspects of the left knee bone ar ound the femoral component in the metaphysis. IMPRESSION: Positive three-phase bone scan, right knee tibial metaphysis greater than left knee Given the history of pain and warmth, infection more so than loosening should be considered. Correlat e clinically
--- NOTE | 2024-03-12 13:18 | P.PN ---
Subjective Lab and imaging data reviewed, including triple phase bone scan and radiologists report. Her knee aspirate has shown no signs of infection (low cell count and %PMNs and no growth on culture) which is most useful in diagnosing and infected total joint. Her Bone scan shows signal in the tibia which I think is mostly due to loosening, not infection. 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 I have a low index of suspicion for infection. The patient is ok to discharge from an orthopaedic standpoint when her culture finalize. I have no plans for surgery at this time as she is a poor surgical until her A1c decreases below 8. She can follow-up as an outpatient. Objective - Vital Signs Vital signs: Vital Signs Temp 97.6 F 03/12/24 06:55 Pulse 71 03/12/24 06:55 Resp 20 03/12/24 06:55 BP 119/72 03/12/24 06:55 Pulse Ox 95 03/12/24 06:55 FiO2 Intake & Output 03/11/24 03/12/24 03/12/24 18:59 06:59 18:59 Intake Total 10 180 Balance 10 180 Weight 108.862 kg Intake: IV 10 Invasive Line 1 10 Oral 180 Other: Voiding Method Toilet Toilet # Voids 3 3 # Bowel Movements 1 - Labs CBC & Chem 7: 03/09/24 12:45 03/10/24 04:08 Labs: Abnormal Lab Results - Last 24 Hours (Table) 03/11/24 03/11/24 03/12/24 Range/Units 16:12 20:26 11:17 POC Glucose (mg/dL) 263 H 243 H 156 H (70-110) mg/dL Microbiology - Last 24 Hours (Table) 03/10/24 10:00 Gram Stain - Preliminary Knee - Right Body Fluid Culture - Preliminary
--- NOTE | 2024-03-12 16:14 | P.PN ---
Subjective Progress Note Date: 03/11/24 Principal diagnosis: Right knee pain and question of infection Patient is a 68-year-old female with a past medical history significant for diabetes mellitus reflux hypertension hyperlipidemia COPD cancer asthma presenting to the hospital for evaluation of right knee pain patient did have history of right knee replacement 20 years ago ID consult concern for possible infection. On today's evaluation that is 03/11/2024, Patient is afebrile patient is currently on room air and denies having any shortness of breath, the patient denies any chest pain or cough, the patient denies any nausea vomiting did not have any abdominal pain and no diarrhea pain to the right is currently controlled with the pain medication. No new labs were obtained today patient did have a right knee synovial fluid was bloody on the 60 WBC Objective - Vital Signs Vital signs: Vital Signs Temp 97.7 F 03/11/24 06:51 Pulse 64 03/11/24 06:51 Resp 17 03/11/24 09:42 BP 120/69 03/11/24 06:51 Pulse Ox 96 03/11/24 06:51 FiO2 Intake & Output 03/10/24 03/11/24 03/11/24 18:59 06:59 18:59 Intake Total 600 540 Balance 600 540 Intake: Intake, IV Titration 600 Amount Sodium Chloride 0.9% 1, 600 000 ml @ 50 mls/hr IV . Q20H FOR[facility]LY [facility], 1928–1983 Rx#:[id number] Oral 540 Other: Voiding Method Toilet # Voids 3 7 1 # Bowel Movements 1 - Exam GENERAL DESCRIPTION: An elderly male lying in bed in no distress RESPIRATORY SYSTEM: Unlabored breathing , decreased breath sounds at bases HEART: S1 S2 regular rate and rhythm , ABDOMEN: Soft , no tenderness EXTREMITIES: Right knee with some swelling no redness - Labs CBC & Chem 7: 03/09/24 12:45 03/10/24 04:08 Labs: Abnormal Lab Results - Last 24 Hours (Table) 03/10/24 03/10/24 03/10/24 Range/Units 09:33 16:27 20:35 ESR 53 H (0-30) mm/Hr POC Glucose (mg/dL) 333 H 249 H (70-110) mg/dL 03/11/24 03/11/24 Range/Units 05:56 11:11 ESR (0-30) mm/Hr POC Glucose (mg/dL) 155 H 237 H (70-110) mg/dL Microbiology - Last 24 Hours (Table) 03/10/24 10:00 Gram Stain - Preliminary Knee - Right Assessment and Plan (1) Knee pain Current Visit: Yes Status: Acute Code(s): M25.569 - PAIN IN UNSPECIFIED KNEE SNOMED Code(s): 2782415822 Plan: 1patient presented to hospital with intractable right knee pain and this patient who did have a history of right knee arthroplasty 20 years ago now with worsening pain questionably hardware failure however CAT scan did not show any misalignment patient is clinically behaving as infection with no fever or elev ated white count and no significant redness. 2right knee synovial fluid was mostly bloody only 60 WBC not compatible with septic arthritis will monitor the patient closely off antibiotic therapy Dictation was produced using [employer] dictation software. please excuse any grammatical, word or spelling errors.
--- NOTE | 2024-03-12 16:14 | P.PN ---
Subjective Progress Note Date: 03/12/24 Principal diagnosis: Right knee pain and question of infection Patient is a 68-year-old female with a past medical history significant for diabetes mellitus reflux hypertension hyperlipidemia COPD cancer asthma presenting to the hospital for evaluation of right knee pain patient did have history of right knee replacement 20 years ago ID consult concern for possible infection. On today's evaluation that is 03/12/2024, patient has been afebrile, patient is breathing comfortably and is currently on room air, patient denies having any significant cough no chest pain shortness of breath, patient denies nausea vomiting or diarrhea and no abdominal pain, patient still complaining of pain to the right knee with movement. No new labs were obtained today cultures so far negative Objective - Vital Signs Vital signs: Vital Signs Temp 97.7 F 03/12/24 13:55 Pulse 74 03/12/24 13:55 Resp 18 03/12/24 13:55 BP 113/71 03/12/24 13:55 Pulse Ox 94 L 03/12/24 13:55 FiO2 Intake & Output 03/11/24 03/12/24 03/12/24 18:59 06:59 18:59 Intake Total 10 180 Balance 10 180 Weight 108.862 kg Intake: IV 10 Invasive Line 1 10 Oral 180 Other: Voiding Method Toilet Toilet # Voids 3 3 # Bowel Movements 1 - Exam GENERAL DESCRIPTION: An elderly male lying in bed in no distress RESPIRATORY SYSTEM: Unlabored breathing , decreased breath sounds at bases HEART: S1 S2 regular rate and rhythm , ABDOMEN: Soft , no tenderness EXTREMITIES: Right knee with some swelling no redness - Labs CBC & Chem 7: 03/09/24 12:45 03/10/24 04:08 Labs: Abnormal Lab Results - Last 24 Hours (Table) 03/11/24 03/11/24 03/12/24 Range/Units 16:12 20:26 11:17 POC Glucose (mg/dL) 263 H 243 H 156 H (70-110) mg/dL Microbiology - Last 24 Hours (Table) 03/10/24 10:00 Gram Stain - Preliminary Knee - Right Body Fluid Culture - Preliminary Assessment and Plan (1) Knee pain Current Visit: Yes Status: Acute Code(s): M25.569 - PAIN IN UNSPECIFIED KNEE SNOMED Code(s): 0945059239 Plan: 1patient presented to hospital with intractable right knee pain and this patient who did have a history of right knee arthroplasty 20 years ago now with worsening pain questionably hardware failure however CAT scan did not show any misalignment patient is clinically behaving as infection with no fever or elevated white count and no significant redness. 2right knee synovial fluid was mostly bloody only 60 WBC and culture has been negative so far with low clinical suspicion for septic arthritis recommending no antibiotic at this point Dictation was produced using [employer] dictation software. please excuse any grammatical, word or spelling errors. Time with Patient: Less than 30
[2024-03-12 17:01] LABS: Glucose,Whole Blood 249 mg/dL (70-110)
[2024-03-12 21:18] LABS: Glucose,Whole Blood 196 mg/dL (70-110)
[2024-03-13 05:39] LABS: Glucose,Whole Blood 155 mg/dL (70-110)
[2024-03-13 08:06] VITALS: RESP 20
[2024-03-13] MEDS: CAPSAICIN 0.025% CREAM 60 GM TUBE TOPICAL SCH (09:05)
[2024-03-13 11:18] LABS: Glucose,Whole Blood 205 mg/dL (70-110)
[2024-03-13] MEDS ORDERED: HYDROcodone/APAP 10-325MG 1 EACH TAB PO PRN (14:29)
[2024-03-13 14:53] VITALS: BP 144/79; PULSE 74; TEMP 97.5
--- NOTE | 2024-03-13 14:55 | P.CON ---
Consult Note - . Consult date: 03/13/24 Assessment/Plan:: this is a 68-year-old lady with a history of right knee pain which started about a week ago with no precipitating events. The patient had a total knee replacement on the right side more than 20 years ago. Her pain is mostly on the medial side of her right knee joint. She had joint aspiration with no indications for infection in the joint however the bone scan showed increased uptake around the right knee and the differential includes infection and loosening of hardware however the computed tomography scan of the right knee showed normal alignment. Dr. Saucedo thinks that there is some loosening of the hardware and the patient may need surgery in the future however he would like her hemoglobin A1c to get better. The patient will see her orthopedic surgeon in 6 weeks from now . By physical exam the patient is alert oriented 3 in no apparent distress. There is significant tenderness over the medial aspect of the right knee. The patient is not able to bend her knee joint on the right side due to pain. Recommendations: The patient is ruled out for infection in the right knee joint however she might have hardware loosening and she might need surgery in the near future. Meanwhile the patient is to continue her regular morphine 30 mg twice a day and I will add to it [place] 10 mg every 6 hours when necessary pain the patient can be on this for couple of weeks and she will see us in the pain clinic 2 weeks from now. She is to follow-up with her family physician for a better control of her diabetes and then with her orthopedic surgeon 6 weeks from now. I thank you for the consultation
--- NOTE | 2024-03-13 19:36 | P.DS ---
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 Patient stated that she has a history of right knee arthroplasty about 20 years ago. Patient was all right 2 weeks ago and started noticing that she was having increasing pain in her right knee. Patient was admitted to the hospital She was evaluated by infectious disease and orthopedic team. Right knee aspirate showing no infection Right knee CT showing postsurgical changes of the right total knee arthroplasty Nuclear bone scan showing positive right knee tibial metaphysis more than left side and the recommend to rule out infection ID team recommended no antibiotic, patient with no fever or leukocytosis, on examination there is no erythema or warmth. Orthopedic team cleared the patient for discharge with recommendation for toe- touch weightbearing, hinged knee brace and a walker, patient informed that she agrees and she told me she having all at home and she wants to go home and she refused to go to rehab. Benefits are explained for the patient extensively she is adamant to go home with home health care ordered. However patient declined from care with director case. Patient was taking morphine 30 mg twice daily at home. We are she was taking oral morphine instead she was taking [place] 5 mg plus IV Dilaudid and IV morphine 2 mg and she received doses yesterday and today off IV Dilaudid/morphine. Patient first discharged on her home dose of morphine 30 mg plus [place] 5-325 mg every 6 hours x 5 days, I explained the benefits risk and alternative for these narcotics including but not limited to the risk of respiratory depression and/or she verbalized understanding and acceptance. She understands we will prescribe 5 days and she will follow-up with her PCP and pain physician upon discharge for further prescription. Patient reports visible blood discharge home. However prior to leaving patient voiced her concerns that comparable to control her pain therefore pain consult was requested who currently saw the patient. After pain medicine team saw the patient I got a call from the bedside nurse that they cleared her for discharge on her home dose of morphine plus [place] 10- 325 mg instead of the 5-325 mg, so prescription is provided for her upon my order. (decision for pain medications upon discharge was made by me based upon pt information , her request , showing understanding of the risks with the intention for close outpatient follow up, also upon recommendations of pain medicine service who saw the pt today with) Patient was satisfied with this treatment plan as per bedside nurse Patient was cleared for discharge by all consultants including pain medicine, orthopedic team and team. No need for antibiotics upon discharge per ID team Problems and management plan were discussed with the patient and he verbalized understanding and acceptance Patient was found stable and can be discharged home in guarded prognosis however he needs follow-up as an outpatient. Patient was instructed to follow up with PCP within one week and patient agrees Patient was instructed to follow-up with orthopedics with Dr. Saucedo in 1 week after discharge and she agrees. Patient understands that she needs to control her hemoglobin A1c for future for surgical procedure as currently uncontrolled. Patient currently wants to continue with her long-acting insulin 8 units and insulin sliding scale, she wants to follow-up with Dr. Armas, however contact information for Dr. Hoffman maintenance technician 3rd shift is provided for the patient with recommendation for outpatient follow-up and she agrees Physical exam Gen: patient is a AAOx3, no distress CVS: S1-S2, RRR, no murmur Lungs: B/L CTA, no wheezing Abdomen: soft, no distention, no tenderness, positive bowel sounds -Extremity: no leg edema or induration. left knee showing no swelling , no warmth , no redness ,mild tenderness. Time spent more than 35 minutes Patient Condition at Discharge: Stable Plan - Discharge Summary Discharge Rx Participant: No New Discharge Prescriptions: New Acetaminophen Tab [Tylenol] 325 mg PO Q6HR PRN tab PRN Reason: Fever And/ Or Pain Capsaicin Cream [Trixaicin Cream] 1 applic TOPICAL TID 7 Days #1 each HYDROcodone/APAP 10-325MG [[place] 10-325] 1 each PO Q6HR PRN 5 Days #30 tab PRN Reason: Pain Continue Butalb/Acetaminophen/Caffeine [Fioricet 50-325-40 mg Tablet] 1 tab PO BID PRN PRN Reason: Migraine Headache lisinopriL [Zestril] 40 mg PO DAILY hydroCHLOROthiazide [Hydrodiuril] 25 mg PO DAILY Atorvastatin [Lipitor] 10 mg PO DAILY Albuterol Sulfate [Albuterol Sulfate Hfa] 2 puff PO RT-Q6H PRN PRN Reason: Shortness Of Breath Insulin Glargine,Hum.rec.anlog [Lantus Solostar Pen] 80 units SQ HS Morphine Sulfate ER [Ms Contin] 30 mg PO Q12H 3 Days #6 tab Omeprazole [PriLOSEC] 20 mg PO DAILY Insulin Lispro [humaLOG Kwikpen] See Protocol SQ AC-TID Discharge Medication List Butalb/Acetaminophen/Caffeine [Fioricet 50-325-40 mg Tablet] 1 tab PO BID PRN 04/11/14 [History] lisinopriL [Zestril] 40 mg PO DAILY 04/04/16 [History] Albuterol Sulfate [Albuterol Sulfate Hfa] 2 puff PO RT-Q6H PRN 03/09/24 [History] Atorvastatin [Lipitor] 10 mg PO DAILY 03/09/24 [History] Insulin Glargine,Hum.rec.anlog [Lantus Solostar Pen] 80 units SQ HS 03/09/24 [History] Insulin Lispro [humaLOG Kwikpen] See Protocol SQ AC-TID 03/09/24 [History] Omeprazole [PriLOSEC] 20 mg PO DAILY 03/09/24 [History] hydroCHLOROthiazide [Hydrodiuril] 25 mg PO DAILY 03/09/24 [History] Acetaminophen Tab [Tylenol] 325 mg PO Q6HR PRN tab 03/13/24 [Rx] Capsaicin Cream [Trixaicin Cream] 1 applic TOPICAL TID 7 Days #1 each 03/13/24 [Rx] HYDROcodone/APAP 10-325MG [[place] 10-325] 1 each PO Q6HR PRN 5 Days #30 tab 03/13/24 [Rx] Morphine Sulfate ER [Ms Contin] 30 mg PO Q12H 3 Days #6 tab 03/13/24 [Rx] Follow up Appointment(s)/Referral(s): eLo Baez MD [REFERRING] - 2 Weeks (maintenance technician 3rd shift for better glycemic control. goal HbA1c is < 8.0) Scarlet Dior MD [Primary Care Provider] - 1-2 days Clary Rowe MD [STAFF PHYSICIAN] - 1 Week Colin Saucedo MD [Medical Doctor] - 03/17/24 2:40 pm Patient Instructions/Handouts: Knee Pain (GEN) Activity/Diet/Wound Care/Special Instructions: heart healthy diet activity is restricted till you see your doctor we recommend toe-touch weightbearing, hinged knee brace, and a walker. Discharge Disposition: HOME WITH HOME HEALTH SERVICES
== END 2024-03-13 16:30 | disposition home health service (06) ==
LOC: EC 11:55 → 4SSUR 14:36
PROVIDERS: ADMIT Internal Medicine; ATTEND Internal Medicine
DX: M00.9 Pyogenic arthritis, unspecified (principal); E11.65 Type 2 diabetes mellitus with hyperglycemia; E66.9 Obesity, unspecified; E78.5 Hyperlipidemia, unspecified; M54.50 Low back pain, unspecified; G89.29 Other chronic pain; I10 Essential (primary) hypertension; J44.89 Other specified chronic obstructive pulmonary disease; R29.6 Repeated falls; Z68.41 Body mass index [BMI] 40.0-44.9, adult; Z79.4 Long term (current) use of insulin; Z79.899 Other long term (current) drug therapy; Z80.8 Family history of malignant neoplasm of other organs or systems; Z82.49 Family history of ischemic heart disease and other diseases of the circulatory system; Z85.3 Personal history of malignant neoplasm of breast; Z87.442 Personal history of urinary calculi; Z87.891 Personal history of nicotine dependence; Z96.612 Presence of left artificial shoulder joint; Z96.651 Presence of right artificial knee joint; M25.561 Pain in right knee
CPT/HCPCS: 96361 ×2; 96366 ×5; 96365; 99285; 36415; 97530; 97162; 97166; 85379; 89060; 80053; 80048; 85652; 89050; 83605; 84550; 85025; 86140; 87070; 87205; 83036; 73562; 73700; 78315; G0378 ×5; A9503; J2270 ×4; J1170 ×5

== ENCOUNTER 2024-03-28 16:49 | Emergency (ER) | payer MEDICARE, OTHER ==
[2024-03-28] MEDS ORDERED: HYDROmorphone 1 MG/ML 1 ML SYRINGE ONE ×2 (17:37→19:55)
--- NOTE | 2024-04-28 10:06 | XR ---
TEX REAVES : 1955 EXAM: Three-view view of the right knee DATE: 03/28/2024 19:53 INDICATION: Patient age: Reason for study: Pain COMPARISON: None, please note PACS downtime occurred during the radiologist interpretation of these i mages with limited priors/reports. TECHNIQUE: 3 views of the knee. knee/s were examined in frontal, lateral, and oblique projections. FINDINGS: Right knee arthroplasty with hardware in place. No evidence for loosening or fracture. A fa zack is present. No evidence of any acute osseous pathology, soft tissue swelling, or joint effusion is noted. IMPRESSION: Post surgical changes without evidence of fracture. Hardware is intact.
== END 2024-03-28 20:00 | disposition home or self-care (01) ==
LOC: EC 16:49
DX: M25.561 Pain in right knee (principal)
CPT/HCPCS: 73562; 99283; 96372 ×2; J1170

== ENCOUNTER → 2024-04-15 | Outpatient (CLI) | payer MEDICARE, OTHER ==
[2024-04-15 10:49] VITALS: BP 144/80; PULSE 81; RESP 19
--- NOTE | 2024-04-15 14:04 | P.PAINPG ---
PQRS Measure Charge Sheet Comment: A 68 yr old female with a history of severe and chronic LBP > 1 yr secondary to radiculopathy, spondylosis and facet arthropathy without myelopathy presents today for medication refills. Pain level is provoked at 9 /10 in intensity, constant, localized in the R lower lumbar spine, predominantly axial, sharp in character w occasional shooting to the back of the R knee. Pain is provoked by bending, lifting, standing for periods of 15 min or more. Pain is alleviated with medications, injections, compression on R knee, PT years ago, heat, repositioning and rest. 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 Pt states her surgeon told her she can not have R knee surgery because her a1c is too high at this time. Interventional pain procedures completed include R SI injection Patient is currently on MS ER 30mg #60, Tovey 10/325mg #60, Tyl Patient denies any side effects of the medication(s), denies excessive drowsiness or sleepiness, denies suicidal ideation and reports that the current pain medication is helping to control the pain and improve activities of daily living. Patient denies any motor or sensory deficits. Patient denies any fever or night sweats, denies any change in the bowel movements or urination. Physical Examination: -Constitutional: Cooperative. Not in acute distress . - Neurologic: Cranial nerve II to XII intact. No focal neurological deficits. - Psychatric: Alert & oriented x 3. Matching mood & appropriate affect. Judgment and insight intact. - Musculoskeletal: Cervical spine: Muscle bulk/ tone/ strength in the bilateral upper extremities normal Vertebral body tenderness to palpation over Spurling test positive Distraction test positive Facet loading test positive TTP Thoracic spine Muscle bulk / tone/ strength in the bilateral paraspinal muscles normal Vertebral body tender to palpation over Facet loading test positive TTP Lumbar spine: Motor bulk/ tone/ strength lower extremities , thigh and legs : 5/5 Deep tendon reflexes : Normal Knee Jerk. Normal Ankle Jerk . Vertebral body tenderness to palpation over Lumbar Facet Loading Test positive Straight Leg Raise: positive at 30 degrees right side/ left side Gaenslen's Test positive Sacral spine : Severe tenderness over the Sacroiliac joint: right side / left side Range of motion: Flexion of the lumbar spine <60 degrees Range of motion: Extension of the lumbar spine <20 degrees Gaenslen's Test positive right side / left side Tiny test: positive right side / left side Thigh Thrust Test positive right side / left side Sacral Thrust Test positive right side / left side Assessment and plan: Chronic LBP secondary to radiculopathy, spondylosis with facet arthropathy without myelopathy Chronic and current use of high-risk medication (Opioids). The patient was counseled about risk of opioid use, psychological risk associated with opioids and was orally counseled to not overuse , divert or sell medications. Pt is to store medication in a safe location. The patient is counseled against driving while using narcotic medications and also not to use alcohol or any illicit recreational drugs. Patient verbalized understanding that the lack of compliance will result in failure to renew narcotic prescription(s) as well as possible discharge from the clinic Diagnoses, prognosis and treatment options including but not limited to physical therapy, surgical interventions, interventional therapies and medication management including narcotics and adjuvant medication were discussed. All patient questions answered MAPS reviewed and it was appropriate. Blood tox screen from 10/02/23 reviewed and +Opiates (MS ER). Will check UDS at next visit. Prescription refill for MS ER 30mg #60 w 1 RF. Add Tovey 10/325mg #60 w 1 RF. Opiate/ narcotic agreement signed 04/15/24. I have spent less than 30 minutes on patient care today. Dr Dougherty was available by phone for the evaluation of this patient. The time was used to review the medical records including relevant urine studies and Prescription history (MAPs), review of the available imaging, evaluation and examination of the patient, coordination of care with the medical staff and if applicable referring physicians, as well as creation of the medical record - Pain Location Right Knee Non-Pharmacological Interventions: Meditation, Sitting Pharmacological Interventions: Medication PQRS Narrative: Smoking Status Former smoker Narcotic Agreement Date Signed 06/12/23 Hx Alcohol Use (MH) No Home Medications: Ambulatory Orders Butalb/Acetaminophen/Caffeine [Fioricet 50-325-40 mg Tablet] 1 tab PO BID PRN 04/11/14 lisinopriL [Zestril] 40 mg PO DAILY 04/04/16 Albuterol Sulfate [Albuterol Sulfate Hfa] 2 puff PO RT-Q6H PRN 03/09/24 Atorvastatin [Lipitor] 10 mg PO DAILY 03/09/24 Insulin Glargine,Hum.rec.anlog [Lantus Solostar Pen] 80 units SQ HS 03/09/24 Insulin Lispro [humaLOG Kwikpen] See Protocol SQ AC-TID 03/09/24 Omeprazole [PriLOSEC] 20 mg PO DAILY 03/09/24 hydroCHLOROthiazide [Hydrodiuril] 25 mg PO DAILY 03/09/24 Acetaminophen Tab [Tylenol] 325 mg PO Q6HR PRN tab 03/13/24 Capsaicin Cream [Trixaicin Cream] 1 applic TOPICAL TID 7 Days #1 each 03/13/24 HYDROcodone/APAP 10-325MG [Tovey 10-325] 1 each PO BID PRN 30 Days #60 tab 04/15/24 HYDROcodone/APAP 10-325MG [Tovey 10-325] 1 tab PO BID PRN 30 Days #60 tab 03/20 04/11 Morphine Sulfate ER [Ms Contin] 30 mg PO BID 30 Days #60 tab 04/15/24 Morphine Sulfate ER [Ms Contin] 30 mg PO Q12H 30 Days #60 tab 04/15/24 Controlled Substance Measures - Controlled Substance Measures Is patient prescribed a controlled substance at discharge?: Yes When asked, does pt state using other controlled substances?: Yes If prescribed controlled substance>3 days was MAPS reviewed?: Yes If Rx opioid, was Start Talking consent form obtained?: Yes Was information provided regarding opioid addiction?: Yes
== END ==
LOC: PNWHC3 10:13
PROVIDERS: ATTEND Specialist
DX: M47.26 Other spondylosis with radiculopathy, lumbar region (principal); Z79.891 Long term (current) use of opiate analgesic; Z87.891 Personal history of nicotine dependence; Z88.8 Allergy status to other drugs, medicaments and biological substances; Z88.6 Allergy status to analgesic agent
CPT/HCPCS: 99211

== ENCOUNTER 2024-05-02 16:51 | Emergency (ER) | payer MEDICARE, OTHER ==
[2024-05-02 16:59] VITALS: TEMP 98
--- NOTE | 2024-05-02 17:07 | ED ---
General Adult HPI - General Chief complaint: Nausea/Vomiting/Diarrhea Stated complaint: weakness Time Seen by Provider: 05/02/24 17:06 Source: patient, RN notes reviewed Mode of arrival: wheelchair Limitations: no limitations - History of Present Illness Initial comments: 68-year-old female presents emergency department chief complaint of worsening right knee pain. Patient states that she had a x-ray of the right knee completed a few months ago where she was informed that there is malfunction of the joint replacement and is scheduled to have a prosthetic replaced however her surgeon recommends that her A1c be decreased before this. Patient has been experiencing severe pain of the right knee with range of motion and ambulation. Denies recent falls or injury. Patient was prescribed outpatient analgesics, morphine 30 mg BID, but has not taken this since and was informed by her pharmacy this medication is out of stock. - Related Data Home Medications Medication Instructions Recorded Confirmed Butalb/Acetaminophen/Caffeine 1 tab PO BID PRN 04/11/14 03/09/24 [Fioricet 50-325-40 mg Tablet] lisinopriL [Zestril] 40 mg PO DAILY 04/04/16 03/09/24 Albuterol Sulfate [Albuterol 2 puff PO RT-Q6H PRN 03/09/24 03/09/24 Sulfate Hfa] Atorvastatin [Lipitor] 10 mg PO DAILY 03/09/24 03/09/24 Insulin Glargine,Hum.rec.anlog 80 units SQ HS 03/09/24 03/09/24 [Lantus Solostar Pen] Insulin Lispro [humaLOG Kwikpen] See Protocol SQ AC-TID 03/09/24 03/09/24 Omeprazole [PriLOSEC] 20 mg PO DAILY 03/09/24 03/09/24 hydroCHLOROthiazide [Hydrodiuril] 25 mg PO DAILY 03/09/24 03/09/24 Previous Rx's Medication Instructions Recorded Acetaminophen Tab [Tylenol] 325 mg PO Q6HR PRN tab 03/13/24 Capsaicin Cream [Trixaicin Cream] 1 applic TOPICAL TID 7 Days #1 each 03/13/24 HYDROcodone/APAP 10-325MG [Eleanor 1 each PO BID PRN 30 Days #60 tab 04/15/24 10-325] HYDROcodone/APAP 10-325MG [Eleanor 1 tab PO BID PRN 30 Days #60 tab 04/15/24 10-325] Morphine Sulfate ER [Ms Contin] 30 mg PO BID 30 Days #60 tab 04/15/24 Morphine Sulfate ER [Ms Contin] 30 mg PO Q12H 30 Days #60 tab 04/15/24 Allergies Allergy/AdvReac Type Severity Reaction Status Date / Time gabapentin AdvReac Confusion Verified 03/09/24 15:39 ibuprofen [From Motrin] AdvReac Abdominal Verified 03/09/24 15:39 Pain and vomiting pregabalin [From Lyrica] AdvReac Confusion Verified 03/09/24 15:39 Review of Systems ROS Statement: Those systems with pertinent positive or pertinent negative responses have been documented in the HPI. ROS Other: All systems not noted in ROS Statement are negative. Past Medical History Past Medical History: Asthma, Cancer, COPD, Diabetes Mellitus, GERD/Reflux, Hyperlipidemia, Hypertension, Musculoskeletal Disorder Additional Past Medical History / Comment(s): Migraine headaches. Hx kidney stone. Chronic back pain, numbness and tingling bilateral lower extremities. Right Breast cancer History of Any Multi-Drug Resistant Organisms: None Reported, MRSA Date of last positivie culture/infection: 2011 MDRO Source:: UNK Past Surgical History: Appendectomy, Back Surgery, Breast Surgery, Cholecystectomy, Joint Replacement, Orthopedic Surgery Additional Past Surgical History / Comment(s): Fusion w/ kane also back surgery 04/21/2019. Left Shoulder Replacement, Right knee replacement, plate in right wrist, left thumb joint repair, Right CTR, Right shoulder arthroscopy. micheal cataracts, LARYNGOSCOPY, November 2016 Cervical Plate, PAIN CLINIC PROCEDURES, right masectomy Past Anesthesia/Blood Transfusion Reactions: No Reported Reaction Past Psychological History: No Psychological Hx Reported Smoking Status: Former smoker Past Alcohol Use History: None Reported Past Drug Use History: None Reported - Past Family History Brother(s) Family Medical History: Cancer, Myocardial Infarction ([place]) Father Family Medical History: Cancer Additional Family Medical History / Comment(s): throat, colon, liver, and brain cancer. Mother Family Medical History: Myocardial Infarction ([place]) Additional Family Medical History / Comment(s): at 54 of [place]. General Exam Limitations: no limitations General appearance: alert, in no apparent distress Eye exam: Present: normal appearance, PERRL, EOMI. Absent: scleral icterus, conjunctival injection, periorbital swelling ENT exam: Present: normal exam, mucous membranes moist Neck exam: Present: normal inspection. Absent: tenderness, meningismus, lymphadenopathy Respiratory exam: Present: normal lung sounds bilaterally. Absent: respiratory distress, wheezes, rales, rhonchi, stridor Cardiovascular Exam: Present: regular rate, normal rhythm, normal heart sounds. Absent: systolic murmur, diastolic murmur, rubs, gallop, clicks GI/Abdominal exam: Present: soft, normal bowel sounds. Absent: distended, tenderness, guarding, rebound, rigid Right Knee exam: Present: tenderness, swelling Neurovascular tendon exam: Present: no vascular compromise. Absent: pulse deficit, abnormal cap refill Back exam: Present: normal inspection Neurological exam: Present: alert, oriented X3, CN II-XII intact Skin exam: Present: warm, dry, intact, normal color. Absent: rash Course Vital Signs 05/02/24 05/02/24 05/02/24 16:57 18:15 20:50 Temperature 98 F Pulse Rate 86 80 79 Respiratory 16 20 20 Rate Blood Pressure 143/60 164/90 132/82 O2 Sat by Pulse 95 100 95 Oximetry Medical Decision Making - Medical Decision Making Was pt. sent in by a medical professional or institution (, PA, DRUM PULLER, urgent care, hospital, or intermediate...) When possible be specific @ -No Did you speak to anyone other than the patient for history (EMS, parent, family, police, friend...)? What history was obtained from this source @ -No Did you review nursing and triage notes (agree or disagree)? Why? @ -I reviewed and agree with nursing and triage notes Were old charts reviewed (outside hosp., previous admission, EMS record, old EKG, old radiological studies, urgent care reports/EKG's, intermediate records)? Report findings @ -No old charts were reviewed Differential Diagnosis (chest pain, altered mental status, abdominal pain women, abdominal pain men, vaginal bleeding, weakness, fever, dyspnea, syncope, headache, dizziness, GI bleed, back pain, seizure, CVA, palpatations, mental health, musculoskeletal)? @ -Differential Musculoskeletal Muscular strain, contusion, ligament sprain, fracture, arthritis, septic arthritis, bursitis, cellulitis, muscle spasm, nerve compression, DVT, arterial occlusion, herpes zoster, electrolyte abnormality, tumor.... This is not meant to be in all inclusive list EKG interpreted by me (3pts min.). @ -None X-rays interpreted by me (1pt min.). @ -X-ray of the right knee no periprosthetic fracture identified, unable to exclude lucencies of both the distal femur and proximal tibia with concern for underlying infection and osseous metastatic disease CT interpreted by me (1pt min.). @ -None done U/S interpreted by me (1pt. min.). @ -None done What testing was considered but not performed or refused? (CT, X-rays, U/S, labs)? Why? @ -None What meds were considered but not given or refused? Why? @ -None Did you discuss the management of the patient with other professionals (professionals i.e. , PA, DRUM PULLER, lab, RT, psych nurse, group social worker, supervisor assembly room, teacher, chief lending officer, shoe caser)? Give summary @ -Spoke with the on-call material specialist, Dr. Victor, in regard to the patient's x-ray findings. It is recommended that patient follow-up outpatient with their office on Saturday for further evaluation. Was smoking cessation discussed for >3mins.? @ -No Was critical care preformed (if so, how long)? @ -No Were there social determinants of health that impacted care today? How? (Yan elessness, low income, unemployed, alcoholism, drug addiction, transportation, low edu. Level, literacy, decrease access to med. care, fpc, rehab)? @ -No Was there de-escalation of care discussed even if they declined (Discuss DNR or withdrawal of care, Hospice)? DNR status @ -No What co-morbidities impacted this encounter? (DM, HTN, Smoking, COPD, CAD, Cancer, CVA, ARF, Chemo, Hep., AIDS, mental health diagnosis, sleep apnea, morbid obesity)? @ -None Was patient admitted / discharged? Hospital course, mention meds given and route, prescriptions, significant lab abnormalities, going to OR and other pertinent info. @ -Discharge. 68-year-old female with right knee pain. On examination patient is resting comfortably. Patient has a knee brace in place and this was removed which reveals a mildly edematous right knee that reveals pain with range of motion. Neurovascularly intact. Patient arrived with pain medication. X-ray remarkable for no periprosthetic fracture identified however unable to exclude possible infection or osseous disease. Discussion with material specialist recommend patient follows up outpatient for further evaluation. CBC unremarkable, CMP hyponatremia 131 chloride 88, mild transaminitis with a alk phos of 720, AST 53 ALT 36, and lactic acid mildly bumped at 2.1. Patient is provided with IV fluid bolus and additional pain medication before discharge. All questions answered at bedside and strict return. Discussed with patient she is verbalized understanding. Case discussed with Dr. Koo Undiagnosed new problem with uncertain prognosis? @ -No Drug Therapy requiring intensive monitoring for toxicity (Heparin, Nitro, Insuli n, Cardizem)? @ -No Were any procedures done? @ -No Diagnosis/symptom? @ -Knee pain Acute, or Chronic, or Acute on Chronic? @ -Acute on chronic Uncomplicated (without systemic symptoms) or Complicated (systemic symptoms)? @ -Uncomplicated Side effects of treatment? @ -No Exacerbation, Progression, or Severe Exacerbation? @ -No Poses a threat to life or bodily function? How? (Chest pain, [place], [place], pneumonia, PE, COPD, DKA, ARF, appy, cholecystitis, CVA, Diverticulitis, Homicidal, Suicidal, threat to staff... and all critical care pts) @ -No - Lab Data Result diagrams: 05/02/24 18:00 05/02/24 18:00 Lab Results 05/02/24 05/02/24 05/02/24 Range/Units 18:00 18:00 18:00 WBC 6.9 (3.8-10.6) k/uL RBC 4.81 (3.80-5.40) m/uL Hgb 13.1 (11.4-16.0) gm/dL Hct 39.5 (34.0-46.0) % MCV 82.2 (80.0-100.0) fL MCH 27.1 (25.0-35.0) pg MCHC 33.0 (31.0-37.0) g/dL RDW 14.4 (11.5-15.5) % Plt Count 174 (150-450) k/uL MPV 7.8 Neutrophils % 69 % Lymphocytes % 23 % Monocytes % 5 % Eosinophils % 1 % Basophils % 1 % Neutrophils # 4.7 (1.3-7.7) k/uL Lymphocytes # 1.6 (1.0-4.8) k/uL Monocytes # 0.3 (0-1.0) k/uL Eosinophils # 0.1 (0-0.7) k/uL Basophils # 0.0 (0-0.2) k/uL Sodium 131 L (137-145) mmol/L Potassium 4.8 (3.5-5.1) mmol/L Chloride 88 L (98-107) mmol/L Carbon Dioxide 25 (22-30) mmol/L Anion Gap 18 mmol/L BUN 33 H (7-17) mg/dL Creatinine 0.94 (0.52-1.04) mg/dL Est GFR (CKD-EPI)AfAm 73 (>60 ml/min/1.73 sqM) Est GFR (CKD-EPI)NonAf 63 (>60 ml/min/1.73 sqM) Glucose 287 H (74-99) mg/dL POC Glucose (mg/dL) (70-110) mg/dL POC Glu Framing Mill Operator Helper ID Lactic Ac Sepsis Rflx Plasma Lactic Acid Vernon 2.1 H* (0.7-2.0) mmol/L Calcium 9.1 (8.4-10.2) mg/dL Total Bilirubin 0.9 (0.2-1.3) mg/dL AST 53 H (14-36) U/L ALT 36 H (4-34) U/L Alkaline Phosphatase 720 H (38-126) U/L C-Reactive Protein 4.0 H (<1.0) mg/dL Total Protein 6.8 (6.3-8.2) g/dL Albumin 3.8 (3.5-5.0) g/dL Lipase 59 (23-300) U/L 05/02/24 05/02/24 Range/Units 18:32 18:56 WBC (3.8-10.6) k/uL RBC (3.80-5.40) m/uL Hgb (11.4-16.0) gm/dL Hct (34.0-46.0) % MCV (80.0-100.0) fL MCH (25.0-35.0) pg MCHC (31.0-37.0) g/dL RDW (11.5-15.5) % Plt Count (150-450) k/uL MPV Neutrophils % % Lymphocytes % % Monocytes % % Eosinophils % % Basophils % % Neutrophils # (1.3-7.7) k/uL Lymphocytes # (1.0-4.8) k/uL Monocytes # (0-1.0) k/uL Eosinophils # (0-0.7) k/uL Basophils # (0-0.2) k/uL Sodium (137-145) mmol/L Potassium (3.5-5.1) mmol/L Chloride (98-107) mmol/L Carbon Dioxide (22-30) mmol/L Anion Gap mmol/L BUN (7-17) mg/dL Creatinine (0.52-1.04) mg/dL Est GFR (CKD-EPI)AfAm (>60 ml/min/1.73 sqM) Est GFR (CKD-EPI)NonAf (>60 ml/min/1.73 sqM) Glucose (74-99) mg/dL POC Glucose (mg/dL) 247 H (70-110) mg/dL POC Glu Framing Mill Operator Helper ID Vagts, Suzin Lactic Ac Sepsis Rflx Y Plasma Lactic Acid Vernon (0.7-2.0) mmol/L Calcium (8.4-10.2) mg/dL Total Bilirubin (0.2-1.3) mg/dL AST (14-36) U/L ALT (4-34) U/L Alkaline Phosphatase (38-126) U/L C-Reactive Protein (<1.0) mg/dL Total Protein (6.3-8.2) g/dL Albumin (3.5-5.0) g/dL Lipase (23-300) U/L Disposition Clinical Impression: Right knee pain Disposition: HOME SELF-CARE Condition: Good Instructions (If sedation given, give patient instructions): Knee Pain (ED) Additional Instructions: Return the emergency department for any new or worsening symptoms. Continue to medication as needed. Recommend that you call your material specialist on Saturday to schedule appointment for further evaluation. Is patient prescribed a controlled substance at d/c from ED?: No Referrals: Scarlet Dior MD [Primary Care Provider] - 1-2 days Time of Disposition: 19:21
[2024-05-02] MEDS: ONDANSETRON 4 MG/2 ML VIAL IVP STA (17:59)
[2024-05-02] MEDS: HYDROmorphone 1 MG/ML 1 ML SYRINGE IVP STA ×3 (18:00→20:21)
[2024-05-02] MEDS: SODIUM CHLORIDE 0.9% 1,000 ML IV STA (18:04)
[2024-05-02 18:24] LABS: Basophils % (A) 1 %; Eosinophils # (A) 0.1 k/uL (0-0.7); Eosinophils % (A) 1 %; HCT 39.5 % (34.0-46.0); HGB 13.1 gm/dL (11.4-16.0); Lymphocytes # (A) 1.6 k/uL (1.0-4.8); Lymphocytes % (A) 23 %; MCH 27.1 pg (25.0-35.0); MCV 82.2 fL (80.0-100.0); Mean Platelet Volume 7.8; Monocytes # (A) 0.3 k/uL (0-1.0); Monocytes % (A) 5 %; Neutrophils # (A) 4.7 k/uL (1.3-7.7); Neutrophils % (A) 69 %; Platelet Count 174 k/uL (150-450); RBC 4.81 m/uL (3.80-5.40); RDW 14.4 % (11.5-15.5); WBC 6.9 k/uL (3.8-10.6)
[2024-05-02 18:34] LABS: Glucose,Whole Blood 247 mg/dL (70-110)
--- NOTE | 2024-05-02 18:36 | XR ---
EXAMINATION TYPE: XR knee complete RT DATE OF EXAM: 05/02/2024 COMPARISON: 03/28/2024 HISTORY: 68-year-old female medial pain and swelling TECHNIQUE: 3 views FINDINGS: Trace knee joint effusion is unchanged. Extensor mechanism appears intact. Mild anterior so ft tissue swelling. Prominent periarticular osteopenia. Distal femoral and proximal tibial components of the prosthesis appear well seated. No periprosthetic fracture seen. Unchanged 7 mm ossific densit y along the peripheral aspect of the medial joint space. Possible subtle permeative lucency along the distal femur and proximal tibia. IMPRESSION: 1. No periprosthetic fracture identified. Patient status post right total knee arthroplasty. 2. Unable to exclude patchy permeative lucencies both distal femur and proximal tibia. Differential c onsiderations include underlying infection and osseous metastatic disease. Further specialized work u p may be needed. [facility], , 05/02/2024 6:33 PM
[2024-05-02 18:38] VITALS: RESP 20
[2024-05-02 18:38] LABS: ALT 36 U/L (4-34); AST 53 U/L (14-36); African American GFR (CKD) 73 (>60 ml/min/1.73 sqM); Albumin 3.8 g/dL (3.5-5.0); Alkaline Phosphatase 720 U/L (38-126); Blood Urea Nitrogen 33 mg/dL (7-17); Calcium 9.1 mg/dL (8.4-10.2); Carbon Dioxide 25 mmol/L (22-30); Chloride 88 mmol/L (98-107); Glucose 287 mg/dL (74-99); Lipase 59 U/L (23-300); Non-African American GFR(CKD) 63 (>60 ml/min/1.73 sqM); Total Bilirubin 0.9 mg/dL (0.2-1.3); Total Protein 6.8 g/dL (6.3-8.2)
[2024-05-02 19:03] LABS: Anion Gap 18 mmol/L; Potassium 4.8 mmol/L (3.5-5.1); Sodium 131 mmol/L (137-145)
[2024-05-02] MEDS: ACET/COD 300 MG/30 MG STARTER PACK 6 TAB BTL PO STA (20:28)
[2024-05-02 21:15] VITALS: BP 132/82; PULSE 79
== END 2024-05-02 20:50 | disposition home or self-care (01) ==
LOC: EC 16:51
CPT/HCPCS: 36415; 80053; 83605; 83690; 85025; 86140; 96361; 96374; 96375; 96376; 99283

== ENCOUNTER 2024-08-18 12:53 | Inpatient (IN) | payer MEDICARE, OTHER ==
--- NOTE | 2024-08-18 14:02 | ED ---
Extremity Problem HPI - General Source: patient, RN notes reviewed Mode of arrival: wheelchair Limitations: physical limitation <Jose AntonioGwen - Last Filed: 08/18/24 13:59> - General Source: patient, admittance attendant, RN notes reviewed, old records reviewed Limitations: physical limitation - History of Present Illness MD Complaint: extremity pain, extremity swelling, joint swelling, joint pain -: days(s) Location: right, knee History of Same: Yes -: Yes arthralgia Radiation: none Severity scale (1-10): 6 Quality: sharp Consistency: constant Improves with: nothing Worsens with: nothing Associated Symptoms: denies other symptoms <José Miguel Perez - Last Filed: 08/24/24 23:03> - General Chief complaint: Extremity Problem,Nontraumatic Stated complaint: Right knee pain Time Seen by Provider: 08/18/24 14:00 - History of Present Illness Initial comments: Quick [id number] female presenting to the ER for chief complaint of right lower extremity pain x 3 months. States she was seen in [place] on Saturday where they told her they suspected bone mets. States she had an oncology appointment today with Dr. Yancey but was told he was out of town. She then states she was told to come to the ER for admission to see oncology. Denies acute falls or injury. (Gwen Brady) This is a 69 female to the ER for evaluation of severe right lower extremity pain severe right knee pain (José Miguel Perez) - Related Data Home Medications Medication Instructions Recorded Confirmed Butalb/Acetaminophen/Caffeine 1 tab PO BID PRN 04/11/14 08/18/24 [Fioricet 50-325-40 mg Tablet] lisinopriL [Zestril] 40 mg PO DAILY 04/04/16 08/18/24 Albuterol Sulfate [Albuterol 2 puff INHALATION RT-QID PRN 03/09/24 08/18/24 Sulfate Hfa] Atorvastatin [Lipitor] 10 mg PO DAILY 03/09/24 08/18/24 Insulin Glargine,Hum.rec.anlog 60 units SQ HS 03/09/24 08/18/24 [Lantus Solostar Pen] Insulin Lispro [humaLOG Kwikpen] See Protocol SQ TID-W/MEALS 03/09/24 08/18/24 Baclofen [Lioresal] 20 mg PO BID 08/18/24 08/18/24 Budesonide-Formot 160-4.5 Mcg 2 puff INHALATION RT-BID PRN 08/18/24 08/18/24 [Symbicort 160-4.5 Mcg Inhaler] HYDROcodone/APAP 10-325MG [[place] 1 tab PO BID 08/18/24 08/18/24 10-325] Morphine Sulfate ER [Ms Contin] 30 mg PO BID 08/18/24 08/18/24 amLODIPine [Norvasc] 10 mg PO DAILY 08/18/24 08/18/24 Allergies Allergy/AdvReac Type Severity Reaction Status Date / Time gabapentin AdvReac Confusion Verified 08/18/24 18:42 ibuprofen [From Motrin] AdvReac Abdominal Verified 08/18/24 18:42 Pain and vomiting pregabalin [From Lyrica] AdvReac Confusion Verified 08/18/24 18:42 Review of Systems ROS Other: All systems not noted in ROS Statement are negative. <Gwen Brady - Last Filed: 08/18/24 13:59> ROS Other: All systems not noted in ROS Statement are negative. <José Miguel Perez - Last Filed: 08/24/24 23:03> ROS Statement: Those systems with pertinent positive or pertinent negative responses have been documented in the HPI. Past Medical History Past Medical History: Asthma, Cancer, COPD, Diabetes Mellitus, GERD/Reflux, Hyperlipidemia, Hypertension, Musculoskeletal Disorder Additional Past Medical History / Comment(s): Migraine headaches. Hx kidney stone. Chronic back pain, numbness and tingling bilateral lower extremities. Right Breast cancer History of Any Multi-Drug Resistant Organisms: None Reported, MRSA Date of last positivie culture/infection: 2011 MDRO Source:: UNK Past Surgical History: Appendectomy, Back Surgery, Breast Surgery, Cholecystectomy, Joint Replacement, Orthopedic Surgery Additional Past Surgical History / Comment(s): Fusion w/ kane also back surgery 04/21/2019. Left Shoulder Replacement, Right knee replacement, plate in right wrist, left thumb joint repair, Right CTR, Right shoulder arthroscopy. micheal cataracts, LARYNGOSCOPY, November 2016 Cervical Plate, PAIN CLINIC PROCEDURES, right masectomy Past Anesthesia/Blood Transfusion Reactions: No Reported Reaction Past Psychological History: No Psychological Hx Reported Smoking Status: Former smoker Past Alcohol Use History: None Reported Past Drug Use History: None Reported - Past Family History Brother(s) Family Medical History: Cancer, Myocardial Infarction ([place]) Father Family Medical History: Cancer Additional Family Medical History / Comment(s): throat, colon, liver, and brain cancer. Mother Family Medical History: Myocardial Infarction ([place]) Additional Family Medical History / Comment(s): at 54 of [place]. <Gwen Brady - Last Filed: 08/18/24 13:59> General Exam Limitations: physical limitation <Gwen Brady - Last Filed: 08/18/24 13:59> General appearance: alert, in no apparent distress Head exam: Present: atraumatic, normocephalic, normal inspection Eye exam: Present: normal appearance, PERRL, EOMI. Absent: scleral icterus, conjunctival injection, periorbital swelling ENT exam: Present: normal exam, mucous membranes moist Neck exam: Present: normal inspection. Absent: tenderness, meningismus, lymphadenopathy Respiratory exam: Present: normal lung sounds bilaterally. Absent: respiratory distress, wheezes, rales, rhonchi, stridor Cardiovascular Exam: Present: regular rate, normal rhythm, normal heart sounds. Absent: systolic murmur, diastolic murmur, rubs, gallop, clicks GI/Abdominal exam: Present: soft, normal bowel sounds. Absent: distended, tenderness, guarding, rebound, rigid Extremities exam: Present: normal inspection, full ROM, normal capillary refill. Absent: tenderness, pedal edema, joint swelling, calf tenderness Back exam: Present: normal inspection Neurological exam: Present: alert, oriented X3, CN II-XII intact Psychiatric exam: Present: normal affect, normal mood Skin exam: Present: warm, dry, intact, normal color. Absent: rash <José Miguel Perez - Last Filed: 08/24/24 23:03> - General Exam Comments Initial Comments: Visual Physical Exam Vital signs reviewed General: Well-appearing, nontoxic, no acute distress. Head: Normocephalic, atraumatic Eyes: PERRLA, EOMI ENT: Airway patent Chest: Nonlabored breathing Skin: No visual rash, normal skin tone Neuro: Alert and oriented 3 Musculoskeletal: No gross abnormalities (Gwen Brady) Course <José Miguel Perez - Last Filed: 08/24/24 23:03> Vital Signs 08/18/24 08/18/24 08/18/24 13:06 19:12 23:31 Temperature 97.8 F Pulse Rate 99 84 85 Respiratory 20 18 18 Rate Blood Pressure 174/97 173/68 175/68 O2 Sat by Pulse 98 97 98 Oximetry - Reevaluation(s) Reevaluation #1: 08/18/24 19:02 Medical records reviewed (José Miguel Perez) Reevaluation #2: 08/18/24 19:02 Patient symptoms unchanged (José Miguel Perez) Reevaluation #3: 08/18/24 19:02 Patient informed of results and questions answered (José Miguel Perez) Reevaluation #4: Was pt. sent in by a medical professional or institution (, JENNIFER, MANAGING DIRECTOR, urgent care, hospital, or long term...) When possible be specific @ -no Did you speak to anyone other than the patient for history (EMS, parent, family, police, friend...)? What history was obtained from this source @ -no Did you review nursing and triage notes (agree or disagree)? Why? @ -agree Are old charts reviewed (outside hosp., previous admission, EMS record, old EKG, old radiological studies, urgent care reports/EKG's, long term records)? Report findings @ -yes Differential Diagnosis (chest pain, altered mental status, abdominal pain women, abdominal pain men, vaginal bleeding, weakness, fever, dyspnea, syncope, headache, dizziness, GI bleed, back pain, seizure, CVA, palpatations, mental health, musculoskeletal)? @ -prior EKG interpreted by me (3pts min.). @ -no X-rays interpreted by me (1pt min.). @ -yes negative for acute disease CT interpreted by me (1pt min.). @ -no U/S interpreted by me (1pt. min.). @ -yes negative for acute disease What testing was considered but not performed or refused? (CT, X-rays, U/S, labs)? Why? @ -none What meds were considered but not given or refused? Why? @ -none Did you discuss the management of the patient with other professionals (professionals i.e. , JENNIFER, MANAGING DIRECTOR, lab, RT, psych nurse, health care social worker, sliver lap tender, teacher, armoured corps officer, shoe caser)? Give summary @ -no Was smoking cessation discussed for >3mins.? @ -no Was critical care preformed (if so, how long)? @ -no Were there social determinants of health that impacted care today? How? (Homelessness, low income, unemployed, alcoholism, drug addiction, transportation, low edu. Level, literacy, decrease access to med. care, longterm, rehab)? @ -none Was there de-escalation of care discussed even if they declined (Discuss DNR or withdrawal of care, Hospice)? DNR status @ -no What co-morbidities impacted this encounter? (DM, HTN, Smoking, COPD, CAD, Cancer, CVA, ARF, Chemo, Hep., AIDS, mental health diagnosis, sleep apnea, morbid obesity)? @ -none Was patient admitted / discharged? Hospital course, mention meds given and route, prescriptions, significant lab abnormalities, going to OR and other pertinent info. @ - 69 female to the ER for evaluation patient presents today for evaluation of severe pain right knee pain with right knee replacement chronic knee pain with injury after initially replacement and patient with revision knee replacement Admitted Undiagnosed new problem with uncertain prognosis? @ -no Drug Therapy requiring intensive monitoring for toxicity (Heparin, Nitro, Insulin, Cardizem)? @ -no Were any procedures done? @ -no Diagnosis/symptom? @ -Severe knee pain Acute, or Chronic, or Acute on Chronic? @ -Acute Uncomplicated (without systemic symptoms) or Complicated (systemic symptoms)? @ -Complicated Side effects of treatment? @ -no Exacerbation, Progression, or Severe Exacerbation? @ -exacerbation Poses a threat to life or bodily function? How? (Chest pain, [place], [place], pneumonia, PE, COPD, DKA, ARF, appy, cholecystitis, CVA, Diverticulitis, Homicidal, Suicidal, threat to staff... and all critical care pts) @ -no (José Miguel Perez) Medical Decision Making <Gwen Brady - Last Filed: 08/18/24 13:59> - Lab Data Result diagrams: 08/24/24 05:51 08/23/24 05:28 - Radiology Data Radiology results: report reviewed (Ultrasound right leg negative for DVT x-ray right knee negative for traumatic injury), image reviewed <José Miguel Perez - Last Filed: 08/24/24 23:03> - Medical Decision Making I completed the quick note portion of this chart signed Gwen Brady PA-C (Gwen Brady) 69 female to the ER for evaluation patient presents today for evaluation of severe pain right knee pain with right knee replacement chronic knee pain with injury after initially replacement and patient with revision knee replacement (José Miguel Perez) - Lab Data Lab Results 08/18/24 08/18/24 08/18/24 Range/Units 17:42 17:42 17:42 WBC 3.8 (3.8-10.6) k/uL RBC 3.33 L (3.80-5.40) m/uL Hgb 9.2 L (11.4-16.0) gm/dL Hct 26.7 L (34.0-46.0) % MCV 80.1 (80.0-100.0) fL MCH 27.7 (25.0-35.0) pg MCHC 34.6 (31.0-37.0) g/dL RDW 17.5 H (11.5-15.5) % Plt Count 86 L (150-450) k/uL MPV 9.1 Neutrophils % (Manual) 66 % Lymphocytes % (Manual) 27 % Monocytes % (Manual) 2 % Eosinophils % (Manual) 2 % Metamyelocytes % 4 % Myelocytes % 1 % Neutrophils # (Manual) 2.51 (1.3-7.7) k/uL Lymphocytes # (Manual) 1.03 (1.0-4.8) k/uL Monocytes # (Manual) 0.08 (0-1.0) k/uL Eosinophils # (Manual) 0.08 (0-0.7) k/uL Metamyelocytes # (Man) 0.15 H (0) k/uL Myelocytes # (Manual) 0.04 H (0) k/uL Nucleated RBCs 12 H (0-0) /100 WBC Manual Slide Review Performed Polychromasia Present Hypochromasia Slight Poikilocytosis Moderate Anisocytosis Slight Microcytosis Slight PT 10.7 (10.0-12.5) sec INR 1.0 (<1.2) APTT 18.2 L (22.0-30.0) sec D-Dimer 5.29 H (<0.60) mg/L FEU Sodium 134 L (137-145) mmol/L Potassium 4.3 (3.5-5.1) mmol/L Chloride 96 L (98-107) mmol/L Carbon Dioxide 27 (22-30) mmol/L Anion Gap 11 mmol/L BUN 17 (7-17) mg/dL Creatinine 0.76 (0.52-1.04) mg/dL Est GFR (CKD-EPI)AfAm >90 (>60 ml/min/1.73 sqM) Est GFR (CKD-EPI)NonAf 81 (>60 ml/min/1.73 sqM) Glucose 180 H (74-99) mg/dL Lactic Ac Sepsis Rflx Plasma Lactic Acid Vernon (0.7-2.0) mmol/L Calcium 9.0 (8.4-10.2) mg/dL Phosphorus 3.8 (2.5-4.5) mg/dL Magnesium 2.0 (1.6-2.3) mg/dL Iron (50-170) UG/DL TIBC (228-460) UG/DL % Saturation (12.00-45.00) Transferrin (204.0-354.0) mg/dL Ferritin (10.0-291.0) ng/mL Total Bilirubin 1.3 (0.2-1.3) mg/dL AST 42 H (14-36) U/L ALT 17 (4-34) U/L Alkaline Phosphatase 957 H (38-126) U/L Creatine Kinase 51 (30-135) U/L Troponin I (0.000-0.034) ng/mL NT-Pro-B Natriuret Pep 544 pg/mL Total Protein 6.7 (6.3-8.2) g/dL Albumin 3.8 (3.5-5.0) g/dL Vitamin B12 (200.0-944.0) pg/mL Folate (4.40-31.00) ng/mL 08/18/24 08/18/24 08/18/24 Range/Units 17:42 17:42 17:42 WBC (3.8-10.6) k/uL RBC (3.80-5.40) m/uL Hgb (11.4-16.0) gm/dL Hct (34.0-46.0) % MCV (80.0-100.0) fL MCH (25.0-35.0) pg MCHC (31.0-37.0) g/dL RDW (11.5-15.5) % Plt Count (150-450) k/uL MPV Neutrophils % (Manual) % Lymphocytes % (Manual) % Monocytes % (Manual) % Eosinophils % (Manual) % Metamyelocytes % % Myelocytes % % Neutrophils # (Manual) (1.3-7.7) k/uL Lymphocytes # (Manual) (1.0-4.8) k/uL Monocytes # (Manual) (0-1.0) k/uL Eosinophils # (Manual) (0-0.7) k/uL Metamyelocytes # (Man) (0) k/uL Myelocytes # (Manual) (0) k/uL Nucleated RBCs (0-0) /100 WBC Manual Slide Review Polychromasia Hypochromasia Poikilocytosis Anisocytosis Microcytosis PT (10.0-12.5) sec INR (<1.2) APTT (22.0-30.0) sec D-Dimer (<0.60) mg/L FEU Sodium (137-145) mmol/L Potassium (3.5-5.1) mmol/L Chloride (98-107) mmol/L Carbon Dioxide (22-30) mmol/L Anion Gap mmol/L BUN (7-17) mg/dL Creatinine (0.52-1.04) mg/dL Est GFR (CKD-EPI)AfAm (>60 ml/min/1.73 sqM) Est GFR (CKD-EPI)NonAf (>60 ml/min/1.73 sqM) Glucose (74-99) mg/dL Lactic Ac Sepsis Rflx Plasma Lactic Acid Vernon 2.3 H* (0.7-2.0) mmol/L Calcium (8.4-10.2) mg/dL Phosphorus (2.5-4.5) mg/dL Magnesium (1.6-2.3) mg/dL Iron 131 (50-170) UG/DL TIBC 360 (228-460) UG/DL % Saturation 36.39 (12.00-45.00) Transferrin 257.0 (204.0-354.0) mg/dL Ferritin 1375.0 H (10.0-291.0) ng/mL Total Bilirubin (0.2-1.3) mg/dL AST (14-36) U/L ALT (4-34) U/L Alkaline Phosphatase (38-126) U/L Creatine Kinase (30-135) U/L Troponin I <0.012 (0.000-0.034) ng/mL NT-Pro-B Natriuret Pep pg/mL Total Protein (6.3-8.2) g/dL Albumin (3.5-5.0) g/dL Vitamin B12 533.0 (200.0-944.0) pg/mL Folate (4.40-31.00) ng/mL 08/18/24 08/18/24 Range/Units 17:42 18:31 WBC (3.8-10.6) k/uL RBC (3.80-5.40) m/uL Hgb (11.4-16.0) gm/dL Hct (34.0-46.0) % MCV (80.0-100.0) fL MCH (25.0-35.0) pg MCHC (31.0-37.0) g/dL RDW (11.5-15.5) % Plt Count (150-450) k/uL MPV Neutrophils % (Manual) % Lymphocytes % (Manual) % Monocytes % (Manual) % Eosinophils % (Manual) % Metamyelocytes % % Myelocytes % % Neutrophils # (Manual) (1.3-7.7) k/uL Lymphocytes # (Manual) (1.0-4.8) k/uL Monocytes # (Manual) (0-1.0) k/uL Eosinophils # (Manual) (0-0.7) k/uL Metamyelocytes # (Man) (0) k/uL Myelocytes # (Manual) (0) k/uL Nucleated RBCs (0-0) /100 WBC Manual Slide Review Polychromasia Hypochromasia Poikilocytosis Anisocytosis Microcytosis PT (10.0-12.5) sec INR (<1.2) APTT (22.0-30.0) sec D-Dimer (<0.60) mg/L FEU Sodium (137-145) mmol/L Potassium (3.5-5.1) mmol/L Chloride (98-107) mmol/L Carbon Dioxide (22-30) mmol/L Anion Gap mmol/L BUN (7-17) mg/dL Creatinine (0.52-1.04) mg/dL Est GFR (CKD-EPI)AfAm (>60 ml/min/1.73 sqM) Est GFR (CKD-EPI)NonAf (>60 ml/min/1.73 sqM) Glucose (74-99) mg/dL Lactic Ac Sepsis Rflx Y Plasma Lactic Acid [place] (0.7-2.0) mmol/L Calcium (8.4-10.2) mg/dL Phosphorus (2.5-4.5) mg/dL Magnesium (1.6-2.3) mg/dL Iron (50-170) UG/DL TIBC (228-460) UG/DL % Saturation (12.00-45.00) Transferrin (204.0-354.0) mg/dL Ferritin (10.0-291.0) ng/mL Total Bilirubin (0.2-1.3) mg/dL AST (14-36) U/L ALT (4-34) U/L Alkaline Phosphatase (38-126) U/L Creatine Kinase (30-135) U/L Troponin I (0.000-0.034) ng/mL NT-Pro-B Natriuret Pep pg/mL Total Protein (6.3-8.2) g/dL Albumin (3.5-5.0) g/dL Vitamin B12 (200.0-944.0) pg/mL Folate 4.70 (4.40-31.00) ng/mL Disposition <Gwen Brady - Last Filed: 08/18/24 13:59> Is patient prescribed a controlled substance at d/c from ED?: No Time of Disposition: 19:00 <José Miguel Perez - Last Filed: 08/24/24 23:03> Clinical Impression: Right knee pain, Chronic pain, Debility, Weakness, Failure of outpatient treatment, Intractable pain, Knee pain Disposition: ADMITTED IP TO THIS [facility] Condition: Fair
--- NOTE | 2024-08-18 15:13 | XR ---
EXAMINATION TYPE: XR tibia fibula RT DATE OF EXAM: 08/18/2024 2:39 PM COMPARISON: None CLINICAL INDICATION: Female, 69 years old with history of RLE pain; PHH, pain TECHNIQUE: XR tibia fibula RT; examined in AP and lateral projections. FINDINGS: Post knee arthroplasty changes appear intact. A fabella is present. No evidence of any acut e osseous pathology, joint dislocation. There may be mild soft tissue swelling throughout the leg. Ac hilles calcaneal enthesophyte formation. IMPRESSION: 1. No evidence of acute fracture. 2. Total knee arthroplasty changes without evidence for hardware failure. 3. Mild diffuse soft tissue swelling suggested. [facility], , 08/18/2024 3:11 PM
--- NOTE | 2024-08-18 15:19 | XR ---
EXAMINATION TYPE: XR femur RT DATE OF EXAM: 08/18/2024 2:39 PM COMPARISON: None CLINICAL INDICATION: Female, 69 years old with history of RLE pain; PHH, pain TECHNIQUE: XR femur RT examined in Frontal and lateral projections. FINDINGS: No evidence of acute osseous pathology, joint dislocation, or soft tissue swelling. Mild o steophyte formations of the superior acetabulum. Mild joint space narrowing. IMPRESSION: 1. No acute osseous pathology. 2. Mild degeneration changes of the hip. [facility], , 08/18/2024 3:17 PM
--- NOTE | 2024-08-18 17:23 | US ---
EXAMINATION TYPE: US venous doppler duplex LE RT DATE OF EXAM: 08/18/2024 4:49 PM COMPARISON: NONE CLINICAL INDICATION: Female, 69 years old with history of pain; knee pain, Pain TECHNIQUE: The lower extremity deep venous system is examined utilizing real time linear array sonog lucian with graded compression, color doppler sonography, and spectral doppler. SIDE PERFORMED: Right FINDINGS: VESSELS IMAGED: Common Femoral Vein Deep Femoral Vein Greater Saphenous Vein * Femoral Vein Popliteal Vein Small Saphenous Vein * Proximal Calf Veins (* superficial vessels) Right Leg: Negative for DVT, Color Doppler imaging shows patency of the vessels. Spectral waveforms are within normal limits. IMPRESSION: No evidence for DVT within the right lower extremity imaged from the groin to the upper calf. [facility], , 08/18/2024 5:20 PM
[2024-08-18 17:53] LABS: Anisocytosis Slight; HCT 26.7 % (34.0-46.0); HGB 9.2 gm/dL (11.4-16.0); Hypochromasia Slight; MCH 27.7 pg (25.0-35.0); MCHC 34.6 g/dL (31.0-37.0); MCV 80.1 fL (80.0-100.0); Mean Platelet Volume 9.1; Microcytosis Slight; Poikilocytosis Moderate; RBC 3.33 m/uL (3.80-5.40); RDW 17.5 % (11.5-15.5)
[2024-08-18 18:06] LABS: ALT 17 U/L (4-34); AST 42 U/L (14-36); African American GFR (CKD) >90 (>60 ml/min/1.73 sqM); Albumin 3.8 g/dL (3.5-5.0); Anion Gap 11 mmol/L; Blood Urea Nitrogen 17 mg/dL (7-17); Carbon Dioxide 27 mmol/L (22-30); Chloride 96 mmol/L (98-107); Creatine Kinase 51 U/L (30-135); Glucose 180 mg/dL (74-99); Non-African American GFR(CKD) 81 (>60 ml/min/1.73 sqM); Phosphorus 3.8 mg/dL (2.5-4.5); Potassium 4.3 mmol/L (3.5-5.1); Sodium 134 mmol/L (137-145); Total Bilirubin 1.3 mg/dL (0.2-1.3); Total Protein 6.7 g/dL (6.3-8.2)
[2024-08-18 18:13] LABS: Alkaline Phosphatase 957 U/L (38-126); NT-Pro-B-Type Natriuretic Pept 544 pg/mL
[2024-08-18 18:21] LABS: Prothrombin Time 10.7 sec (10.0-12.5)
[2024-08-18 18:23] LABS: Partial Thromboplastin Time 18.2 sec (22.0-30.0)
[2024-08-18 18:54] LABS: Platelet Count 86 k/uL (150-450)
[2024-08-18] MEDS ORDERED: NALOXONE 0.4 MG/ML 1 ML VIAL IV PRN (18:55)
[2024-08-18 19:04] LABS: Metamyelocytes % 4 %; Myelocytes # (M) 0.04 k/uL (0); Myelocytes % 1 %; Neutrophils % (M) 66 %; Nucleated Red Blood Cells 12 /100 WBC (0-0); Total Cells Counted 200
[2024-08-18 19:06] LABS: Eosinophils # (M) 0.08 k/uL (0-0.7); Lymphocytes # (M) 1.03 k/uL (1.0-4.8); Metamyelocytes # (M) 0.15 k/uL (0); Monocytes # (M) 0.08 k/uL (0-1.0); Neutrophils # (M) 2.51 k/uL (1.3-7.7); WBC 3.8 k/uL (3.8-10.6)
[2024-08-18 19:11] LABS: Polychromasia Present
[2024-08-18] MEDS: SODIUM CHLORIDE 0.9% 1,000 ML IV STA (19:29)
--- NOTE | 2024-08-18 19:37 | CT ---
EXAMINATION TYPE: CT knee RT wo con DATE OF EXAM: 08/18/2024 7:19 PM COMPARISON: Radiograph 05/02/[address] 03/10/2024 CLINICAL INDICATION: Female, 69 years old with history of pain, right knee pain x 5 months, TECHNIQUE: Contiguous axial scanning of the right knee without IV contrast. Coronal and sagittal christiano nstructions performed. CT DLP: 232 mGycm, Automated exposure control for dose reduction was used. FINDINGS: Redemonstrated patchy sclerosis and lucency about both distal femoral and proximal tibial components. Areas of periprosthetic scalloping anteriorly and posteriorly about the femoral component seems larg audra unchanged. Trace knee joint effusion. Mild periosteal soft tissue swelling distal femoral metaphy sis and proximal tibia. In addition, there appears to be interval development of a periprosthetic fra cture anterior aspect of the tibial component without significant displacement. IMPRESSION: 1. UNUSUAL PATCHY SCLEROSIS AND LUCENCY ABOUT BOTH DISTAL FEMORAL AND PROXIMAL TIBIAL COMPONENTS, SIM ILAR COMPARED TO 03/10/2024. AREAS OF PERIPROSTHETIC OSSEOUS SCALLOPING/EROSION BOTH ANTERIORLY AND PO STERIORLY AT THE FEMORAL COMPONENT IS SIMILAR TO PRIOR STUDY WELL. THE EXACT ETIOLOGY IS UNCLEAR. UNCLEAR IF THIS REPRESENTS SEQUELA OF CHRONIC INFECTION OR UNDERLYING OSSEOUS METASTATIC DISEASE. NO CLARK LOOSENING IS IDENTIFIED. 2. INTERVAL DEVELOPMENT OF A NONDISPLACED PERIPROSTHETIC FRACTURE ALONG THE ANTERIOR ASPECT OF THE TI BIAL TRAY COMPONENT. Consider sampling the bone if any surgery is planned. [facility], , 08/18/2024 7:34 PM
[2024-08-18] MEDS: HYDROmorphone 1 MG/ML 1 ML SYRINGE IVP STA (19:42)
[2024-08-18] MEDS: KETOROLAC 15 MG/ML 1 ML VIAL IVP STA (19:43)
[2024-08-18] MEDS: SODIUM CHLORIDE 0.9% 1,000 ML IV SCH (19:49)
--- NOTE | 2024-08-18 20:19 | CT ---
EXAMINATION TYPE: CT chest angio for PE DATE OF EXAM: 08/18/2024 7:59 PM COMPARISON: 12/18/2016. CLINICAL INDICATION: Female, 69 years old with shortness of breath, history of elevated dimer, High d nany, denies chest pain TECHNIQUE: Contiguous axial scanning of the chest performed with IV Contrast, patient injected with 1 00 mL of Isovue 300. Coronal and sagittal MIP reconstructions performed. CT DLP: 527.3 mGycm, Automated exposure control for dose reduction was used. FINDINGS: A large 10.7 x 8.4 cm right breast reconstruction and implant versus postmastectomy seroma. Clinicall y correlate. Prominent subpleural patchy density and reticular change anterior right midlung underlyi ng the right mastectomy likely post radiation therapy change. Some nodular subpleural areas of density are present at the anterior apex measuring 1.0 cm and should be reassessed at follow-up. Heart borderline enlarged without pericardial effusion. Mild aortic valve calcifications. Aorta normal caliber with conventional arch vessel branching anatomy. Prominent bilateral hilar lymph nodes measuring up to 1.4 cm. Low right paratracheal lymph node measu ring 1.8 cm. No axillary lymphadenopathy is seen. Mildly enlarged caliber main right and left pulmonary arteries measuring up to 2.7 cm suggesting unde rlying pulmonary arterial hypertension. There is breathing motion artifact limiting assessment for pulmonary emboli. No large central or loba r branch pulmonary embolus is seen. Many of the segmental and more distal arterial branches are very limited in assessment. A 5 mm left mid lung pulmonary nodule appears to have been present previously. A couple subpleural pulmonary nodules posteromedial right lower lobe measuring 6 mm and 3 mm not black rly seen previously. No consolidation or pleural effusion. Spleen is enlarged. Cholecystectomy clips. New diffuse sclerosis throughout the bony structures. Some mild paravertebral soft tissue thickening opposite the T9 level, axial image 89 may reflect extraosseous soft tissue. IMPRESSION: 1. NEW DIFFUSE OSTEOSCLEROSIS THROUGHOUT THE BONY STRUCTURES. CORRELATE FOR DIFFUSE OSSEOUS METASTATI C DISEASE. SOME MILD PARAVERTEBRAL SOFT TISSUE THICKENING AT THE T9 LEVEL PROBABLY REPRESENTS EXTRAOS SEOUS SOFT TISSUE EXTENSION. NO DISCRETE FRACTURE IS CLEARLY IDENTIFIED HERE. 2. IN LIGHT OF THESE FINDINGS, CORRELATE FOR PATHOLOGIC PERIPROSTHETIC FRACTURE OF THE PROXIMAL TIBIA ON THE CT OF THE RIGHT KNEE. 3. BREATHING MOTION ARTIFACT LIMITING ASSESSMENT FOR PULMONARY EMBOLUS. NO LARGE CENTRAL OR LOBAR BRA NCH EMBOLUS. NO DEFINITE EMBOLUS ELSEWHERE IN THE LUNGS. 4. MEDIASTINAL AND HILAR NODES MEASURING UP TO 1.8 CM AND A COUPLE PULMONARY NODULES MEASURING UP TO 1 CM NOT SEEN PREVIOUSLY IN 2017. BOTH GRANULOMATOUS DISEASE/SARCOIDOSIS AND METASTATIC DISEASE ARE I N THE DIFFERENTIAL. 5. STATUS POST RIGHT MASTECTOMY. THERE IS EITHER A RECONSTRUCTION PROSTHESIS VERSUS LARGE POSTOPERATI VE SEROMA AT THE MASTECTOMY SITE. CLINICALLY CORRELATE. UNDERLYING PLEURAL PARENCHYMAL THICKENING LIK RIGOBERTO RELATING TO POSTRADIATION THERAPY CHANGE. 6. NEW SPLENOMEGALY. CLINICALLY CORRELATE. [facility], , 08/18/2024 8:17 PM
[2024-08-19] MEDS: HYDROmorphone 1 MG/ML 1 ML SYRINGE IVP PRN (00:23)
[2024-08-19 06:20] LABS: ALT 15 U/L (4-34); AST 34 U/L (14-36); African American GFR (CKD) 83 (>60 ml/min/1.73 sqM); Albumin 3.3 g/dL (3.5-5.0); Anion Gap 7 mmol/L; Blood Urea Nitrogen 19 mg/dL (7-17); Calcium 8.8 mg/dL (8.4-10.2); Carbon Dioxide 28 mmol/L (22-30); Chloride 100 mmol/L (98-107); Glucose 175 mg/dL (74-99); Magnesium 2.1 mg/dL (1.6-2.3); Non-African American GFR(CKD) 72 (>60 ml/min/1.73 sqM); Phosphorus 3.6 mg/dL (2.5-4.5); Potassium 3.9 mmol/L (3.5-5.1); Sodium 135 mmol/L (137-145); Total Bilirubin 0.8 mg/dL (0.2-1.3)
[2024-08-19 06:45] LABS: Alkaline Phosphatase 846 U/L (38-126)
[2024-08-19 07:21] LABS: Glucose,Whole Blood 179 mg/dL (70-110)
[2024-08-19 07:53] LABS: Anisocytosis Slight; HCT 23.5 % (34.0-46.0); Hypochromasia Slight; MCH 27.4 pg (25.0-35.0); MCHC 33.9 g/dL (31.0-37.0); MCV 80.8 fL (80.0-100.0); Mean Platelet Volume 10.2; Microcytosis Slight; Poikilocytosis Moderate; RBC 2.91 m/uL (3.80-5.40)
[2024-08-19 07:56] LABS: Platelet Count 72 k/uL (150-450)
[2024-08-19 08:48] LABS: Band Neutrophils % 3 %; Basophils # (M) 0.03 k/uL (0-0.2); Eosinophils # (M) 0.03 k/uL (0-0.7); Metamyelocytes # (M) 0.07 k/uL (0); Metamyelocytes % 2 %; Monocytes # (M) 0.17 k/uL (0-1.0); Myelocytes # (M) 0.03 k/uL (0); Myelocytes % 1 %; Neutrophils % (M) 66 %; Nucleated Red Blood Cells 4 /100 WBC (0-0); Total Cells Counted 200
[2024-08-19 08:49] LABS: Lymphocytes # (M) 0.76 k/uL (1.0-4.8); WBC 3.3 k/uL (3.8-10.6)
[2024-08-19 08:50] LABS: Polychromasia Present; Tear Drop Cells Present
[2024-08-19] MEDS: HYDROmorphone 0.5 MG/0.5 ML SYRINGE IVP STA (09:22)
--- NOTE | 2024-08-19 10:17 | P.CNOR ---
History of Present Illness - [facility] Consult date: 08/19/24 History of present illness: The patient is a very pleasant 69-year-old female with a medical history significant of breast cancer diagnosed 2 years ago and chronic pain who is been on oral morphine for over 20 years who is well known to me. The patient had a right total knee replacement done over 20 years ago. This past February she was a dmitted to this facility with intractable right knee pain and I saw her. At that time she had an extensive workup including an aspiration of the knee which was negative for infection, computed tomography scan, and bone scan. The most likely cause of her pain and imaging findings at that time was determined to be aseptic loosening of the tibial component and wear from her conventional polyethylene. Unfortunately the patient had extremely poor control of her diabetes at that time with an A1c of over 11. We discussed that she could not have an aseptic revision at that time due to her exceedingly high risk of infection or wound healing complication due to her diabetes. My recommendation was to use a splint, protect her weightbearing and have her primary care doctor work on blood sugar control to lower her A1c. The patient has not followed up with me since. She has been readmitted with intractable pain in her right knee. Past Medical History Past Medical History: Asthma, Cancer, COPD, Diabetes Mellitus, GERD/Reflux, Hyperlipidemia, Hypertension, Musculoskeletal Disorder Additional Past Medical History / Comment(s): Migraine headaches. Hx kidney stone. Chronic back pain, numbness and tingling bilateral lower extremities. Right Breast cancer History of Any Multi-Drug Resistant Organisms: None Reported, MRSA Year Discovered:: 2011 MDRO Source:: UNK Past Surgical History: Appendectomy, Back Surgery, Breast Surgery, Cholecystectomy, Joint Replacement, Orthopedic Surgery Additional Past Surgical History / Comment(s): Fusion w/ kane also back surgery 04/21/2019. Left Shoulder Replacement, Right knee replacement, plate in right wrist, left thumb joint repair, Right CTR, Right shoulder arthroscopy. micheal cataracts, LARYNGOSCOPY, November 2016 Cervical Plate, PAIN CLINIC PROCEDURES, right masectomy Past Anesthesia/Blood Transfusion Reactions: No Reported Reaction Past Psychological History: No Psychological Hx Reported Smoking Status: Former smoker Past Alcohol Use History: None Reported Additional Past Alcohol Use History / Comment(s): SMOKED 1PPD, STARTED SMOKING AGE 17, AND QUIT IN 1981. Past Drug Use History: None Reported - Past Family History Brother(s) Family Medical History: Cancer, Myocardial Infarction ([place]) Father Family Medical History: Cancer Additional Family Medical History / Comment(s): throat, colon, liver, and brain cancer. Mother Family Medical History: Myocardial Infarction ([place]) Additional Family Medical History / Comment(s): at 54 of [place]. Medications and Allergies Home Medications Medication Instructions Recorded Confirmed Type Butalb/Acetaminophen/Caffeine 1 tab PO BID PRN 04/11/14 08/18/24 History [Fioricet 50-325-40 mg Tablet] lisinopriL [Zestril] 40 mg PO DAILY 04/04/16 08/18/24 History Albuterol Sulfate [Albuterol 2 puff INHALATION RT-QID PRN 03/09/24 08/18/24 History Sulfate Hfa] Atorvastatin [Lipitor] 10 mg PO DAILY 03/09/24 08/18/24 History Insulin Glargine,Hum.rec.anlog 60 units SQ HS 03/09/24 08/18/24 History [Lantus Solostar Pen] Insulin Lispro [humaLOG Kwikpen] See Protocol SQ TID-W/MEALS 03/09/24 08/18/24 History Baclofen [Lioresal] 20 mg PO BID 08/18/24 08/18/24 History Budesonide-Formot 160-4.5 Mcg 2 puff INHALATION RT-BID PRN 08/18/24 08/18/24 History [Symbicort 160-4.5 Mcg Inhaler] HYDROcodone/APAP 10-325MG [[place] 1 tab PO BID 08/18/24 08/18/24 History 10-325] Morphine Sulfate ER [Ms Contin] 30 mg PO BID 08/18/24 08/18/24 History amLODIPine [Norvasc] 10 mg PO DAILY 08/18/24 08/18/24 History Allergies Allergy/AdvReac Type Severity Reaction Status Date / Time gabapentin AdvReac Confusion Verified 08/18/24 18:42 ibuprofen [From Motrin] AdvReac Abdominal Verified 08/18/24 18:42 Pain and vomiting pregabalin [From Lyrica] AdvReac Confusion Verified 08/18/24 18:42 Physical Examination the patient is resting in her bed. She is alert and able to answer questions. A focused exam of the right lower extremity was conducted. On inspection there is a well-healed anterior incision. There is no erythema or warmth. There is a moderate effusion. The patient is able to perform a straight leg raise. She has exquisite pain out of proportion even with light touch of the skin over the knee. Due to her guarding exam of the knee is limited. Distally her foot appears well perfused. She has a palpable dorsalis pedis pulse. There is lichenification of the skin over all of her toes. Results x-rays and computed tomography scan of the right knee were reviewed.there are multiple areas of lysis in both the femur and tibia. The tibial component appears loose. There is fragmentation of the tibial tuberosity. - Labs Labs: Abnormal Lab Results - Last 24 Hours (Table) 08/18/24 08/18/24 08/18/24 Range/Units 17:42 17:42 17:42 WBC (3.8-10.6) k/uL RBC 3.33 L (3.80-5.40) m/uL Hgb 9.2 L (11.4-16.0) gm/dL Hct 26.7 L (34.0-46.0) % RDW 17.5 H (11.5-15.5) % Plt Count 86 L (150-450) k/uL Lymphocytes # (Manual) (1.0-4.8) k/uL Metamyelocytes # (Man) 0.15 H (0) k/uL Myelocytes # (Manual) 0.04 H (0) k/uL Nucleated RBCs 12 H (0-0) /100 WBC APTT 18.2 L (22.0-30.0) sec D-Dimer 5.29 H (<0.60) mg/L FEU Sodium 134 L (137-145) mmol/L Chloride 96 L (98-107) mmol/L BUN (7-17) mg/dL Glucose 180 H (74-99) mg/dL POC Glucose (mg/dL) (70-110) mg/dL Plasma Lactic Acid Vernon (0.7-2.0) mmol/L AST 42 H (14-36) U/L Alkaline Phosphatase 957 H (38-126) U/L Total Protein (6.3-8.2) g/dL Albumin (3.5-5.0) g/dL 08/18/24 08/19/2408/19/25 Range/Units 17:42 05:15 05:15 WBC 3.3 L (3.8-10.6) k/uL RBC 2.91 L (3.80-5.40) m/uL Hgb 8.0 L (11.4-16.0) gm/dL Hct 23.5 L (34.0-46.0) % RDW 18.0 H (11.5-15.5) % Plt Count 72 L (150-450) k/uL Lymphocytes # (Manual) 0.76 L (1.0-4.8) k/uL Metamyelocytes # (Man) 0.07 H (0) k/uL Myelocytes # (Manual) 0.03 H (0) k/uL Nucleated RBCs 4 H (0-0) /100 WBC APTT (22.0-30.0) sec D-Dimer (<0.60) mg/L FEU Sodium 135 L (137-145) mmol/L Chloride (98-107) mmol/L BUN 19 H (7-17) mg/dL Glucose 175 H (74-99) mg/dL POC Glucose (mg/dL) (70-110) mg/dL Plasma Lactic Acid Vernon 2.3 H* (0.7-2.0) mmol/L AST (14-36) U/L Alkaline Phosphatase 846 H (38-126) U/L Total Protein 6.0 L (6.3-8.2) g/dL Albumin 3.3 L (3.5-5.0) g/dL 08/19/24 Range/Units 07:14 WBC (3.8-10.6) k/uL RBC (3.80-5.40) m/uL Hgb (11.4-16.0) gm/dL Hct (34.0-46.0) % RDW (11.5-15.5) % Plt Count (150-450) k/uL Lymphocytes # (Manual) (1.0-4.8) k/uL Metamyelocytes # (Man) (0) k/uL Myelocytes # (Manual) (0) k/uL Nucleated RBCs (0-0) /100 WBC APTT (22.0-30.0) sec D-Dimer (<0.60) mg/L FEU Sodium (137-145) mmol/L Chloride (98-107) mmol/L BUN (7-17) mg/dL Glucose (74-99) mg/dL POC Glucose (mg/dL) 179 H (70-110) mg/dL Plasma Lactic Acid Vernon (0.7-2.0) mmol/L AST (14-36) U/L Alkaline Phosphatase (38-126) U/L Total Protein (6.3-8.2) g/dL Albumin (3.5-5.0) g/dL H & H 08/18/24 08/19/24 Range/Units 17:42 05:15 Hgb 9.2 L 8.0 L (11.4-16.0) gm/dL Hct 26.7 L 23.5 L (34.0-46.0) % Coagulation 08/18/24 Range/Units 17:42 INR 1.0 (<1.2) Result Diagrams: 08/19/24 05:15 08/19/24 05:15 Assessment and Plan Assessment: Painful right total knee replacement etiology likely aseptic loosening and wear History of breast cancer, possible metastatic disease Chronic pain and oral morphine for 20 years Poorly controlled diabetes Obesity Plan: I reviewed the patient's current hospital workup as well as the patient's workup from this past February. The patient has had an extensive workup of the knee this past February including x-rays, computed tomography scan, bone scan, and an aspir ation. At that time the MOST LIKELY diagnosis was aseptic loosening and bone loss from polyethylene wear. Due to her elevated A1c (11.1) it was determined she was unsafe to have any type of revision surgery at that time. My recommendation was protected weightbearing, use of a brace, and diabetes control and revisiting the possibility of revision surgery once her A1c was lowered. It was explained to her at that time that her risk of infection or wound healing due to her A1c of 11 was prohibitive for having revision surgery. The patient has not followed up with me in the office since February. Her CT scan has progressively worsened. While I think the most likely cause of her findings on CT are due to aseptic loosening and poly-wear I think it is possible that it could represent metastatic disease given her history of breast cancer. Oncology has been consulted. I reaspirated her right knee to rule out chronic periprosthetic joint infection as this could also explain her symptoms and x-ray findings. Fluid was sent for cell count with differential and cultures. Lab work was also obtained. I also ordered an A1c to assess her diabetes control. I have no plans for revision surgery at this hospitalization. If it is determined by oncology that she doesn't have metastatic cancer and her A1c is improved I would discuss revision surgery as an outpatient. In the interim I'll defer pain control to the primary service and her pain specialist. I would recommend toe-touch weightbearing with a brace and a walker. I will continue to follow and make recommendations as her workup continues. I spent a great deal of time explaining this to the patient and she seems to understand. Procedure: Verbal consent for right knee aspiration was obtained. The skin over the superolateral pole of the patella was prepped both with alcohol and ChloraPrep. Using sterile technique an 18-gauge needle was inserted into the suprapatellar pouch and 12 mL's of clear blood-tinged fluid was aspirated. There was no purulence. The needle was withdrawn. The fluid was placed in a purple top Vacutainer tube and the remaining fluid and a syringe was. Both were labeled and sent to lab. A Band-Aid was applied. The patient tolerated this well. Time with Patient: Greater than 30
[2024-08-19 12:12] LABS: Glucose,Whole Blood 283 mg/dL (70-110)
[2024-08-19] MEDS ORDERED: SYMBICORT 160-4.5 MCG INHALER INHALATION PRN (12:55)
[2024-08-19] MEDS ORDERED: DEXTROSE 50% SYRINGE 50 ML IVP PRN ×2 (12:56)
[2024-08-19 13:10] LABS: Appearance,Urine Cloudy (Clear); Bacteria,Urine Rare /hpf; Bilirubin,Urine Negative (Negative); Blood,Urine Negative (Negative); Color,Urine Yellow; Glucose,Urine (UA) 3+ (Negative); Ketones,Urine Negative (Negative); Leukocyte Esterase,Urine Negative (Negative); Mucus,Urine Few /hpf; Nitrite,Urine Negative (Negative); PH, Urine 5.5 (5.0-8.0); Protein,Urine Trace (Negative); RBC,Urine <1 /hpf (0-5); Squamous Epithelial Cell,Urine 5 /hpf (0-4); WBC,Urine 3 /hpf (0-5)
[2024-08-19] MEDS: lisinopriL 20 MG TAB PO SCH (13:57)
[2024-08-19] MEDS: amLODIPine 10 MG TAB PO SCH (13:57)
[2024-08-19 14:01] LABS: Appearance,BF Bloody; Color,BF Red; Nucleated Cells, Body Fluid 11 /uL; RBC, Body Fluid 65700 /uL
[2024-08-19] MEDS: HYDROcodone/APAP 10-325MG 1 EACH TAB PO PRN (14:09)
[2024-08-19 17:13] LABS: Glucose,Whole Blood 203 mg/dL (70-110)
[2024-08-19] MEDS: INSULIN ASPART (NovoLOG) 100 UNIT/ML VIAL SQ SCH (17:42)
[2024-08-19 19:59] LABS: Glucose,Whole Blood 201 mg/dL (70-110)
[2024-08-19] MEDS: BACLOFEN 10 MG TAB PO SCH (20:48)
[2024-08-19] MEDS: INSULIN DETEMIR (LEVEMIR) 100 UNIT/ML SYR SQ SCH (20:48)
[2024-08-19] MEDS: MORPHINE SULFATE ER 30 MG TABLET PO SCH (20:51)
--- NOTE | 2024-08-19 22:07 | P.HPIM ---
History of Present Illness This is a pleasant 69 years old female with past medical history of multiple medical problems as below Presents with right knee pain since February. She felt on June and hurt her right knee and it looks like there was some fracture as per patient but it was treated medically. Since then it has been having severe pain in the right knee, she cannot walk because of her severe pain, she stated that her pain is similar since last June and that is why she came to the hospital. Other than that she denies any other specific complaints as below She denies smoking alcohol or illicit drugs. On review with the records Patient was admitted in this facility 03/09/2024- 03/13/2024. At that time she has been evaluated by Dr. Saucedo at [facility]. She had also severe knee pain and she had CT of the knee and bone scan both reviewed by orthopedic team. And occult fracture and joint infection has been ruled out, orthopedic team had no plans for surgery at that time as she has postsurgical candidate until her hemoglobin A1c controlled below 8. At that time her hemoglobin A1c was 11.1. I saw the patient at that time I talked to her about better control of diabetes so she can have more surgical intervention. Patient was referred to her PCP Dr. Armas as well as I referred her to radio artist Dr. Hoffman. As there is no radio artist in-house in this facility During this admission her sugar still on the high side 179, 283, 203 and 201. We are going to recheck hemoglobin A1c tomorrow. [facility] has been referred to this facility. She is hemodynamically stable She is afebrile. - Labs reviewed showing pancytopenia with WBC dropped to 3.3, hemoglobin 8.0 and platelet count 72. - D-dimer was elevated 5.2, she had CTA of the chest showing negative for pulmonary embolism for limited study because of the motion artifact. Also she had diffuse osteosclerosis of the bony structures suspicious for diffuse metastatic disease She has mediastinal and hilar lymphadenopathy with pulmonary nodules up to 1 cm while lymph node enlargement was up to 1.8 cm with differential diagnosis including s sarcoidosis, bronchiectasis or metastatic disease Also patient is s/p right mastectomy with breast bed showing either reconstructive prostheses or implants versus seroma - She also has CT of the knee showing sclerosis and lucency around both the distal femoral and proximal tibial bones. Nondisplaced periprosthetic tibial fracture. Review of Systems Review of systems CONSTITUTIONAL: No fever, no malaise, no fatigue. HEENT: No recent visual problems or hearing problems. Denied any sore throat. CARDIOVASCULAR: No orthopnea, PND, no palpitations, no syncope. PULMONARY: No shortness of breath, no cough, no hemoptysis. GASTROINTESTINAL: No diarrhea, no nausea, no vomiting, no abdominal pain. Normoactive bowel sounds. NEUROLOGICAL: No headaches, no weakness, no numbness. HEMATOLOGICAL: Denies any bleeding or petechiae. GENITOURINARY: Denies any burning micturition, frequency, or urgency. -MUSCULOSKELETAL/RHEUMATOLOGICAL: as above ENDOCRINE: Denies any polyuria or polydipsia. Past Medical History Past Medical History: Asthma, Cancer, COPD, Diabetes Mellitus, GERD/Reflux, Hyperlipidemia, Hypertension, Musculoskeletal Disorder Additional Past Medical History / Comment(s): Migraine headaches. Hx kidney stone. Chronic back pain, numbness and tingling bilateral lower extremities. Right Breast cancer History of Any Multi-Drug Resistant Organisms: None Reported, MRSA Date of last positivie culture/infection: 2011 MDRO Source:: UNK Past Surgical History: Appendectomy, Back Surgery, Breast Surgery, Cholecystectomy, Joint Replacement, Orthopedic Surgery Additional Past Surgical History / Comment(s): Fusion w/ kane also back surgery 04/21/2019. Left Shoulder Replacement, Right knee replacement, plate in right wrist, left thumb joint repair, Right CTR, Right shoulder arthroscopy. micheal cataracts, LARYNGOSCOPY, November 2016 Cervical Plate, PAIN CLINIC PROCEDURES, right masectomy Past Anesthesia/Blood Transfusion Reactions: No Reported Reaction Past Psychological History: No Psychological Hx Reported Smoking Status: Former smoker Past Alcohol Use History: None Reported Additional Past Alcohol Use History / Comment(s): SMOKED 1PPD, STARTED SMOKING AGE 17, AND QUIT IN 1981. Past Drug Use History: None Reported - Past Family History Brother(s) Family Medical History: Cancer, Myocardial Infarction ([place]) Father Family Medical History: Cancer Additional Family Medical History / Comment(s): throat, colon, liver, and brain cancer. Mother Family Medical History: Myocardial Infarction ([place]) Additional Family Medical History / Comment(s): at 54 of [place]. Medications and Allergies Home Medications Medication Instructions Recorded Confirmed Type Butalb/Acetaminophen/Caffeine 1 tab PO BID PRN 04/11/14 08/18/24 History [Fioricet 50-325-40 mg Tablet] lisinopriL [Zestril] 40 mg PO DAILY 04/04/16 08/18/24 History Albuterol Sulfate [Albuterol 2 puff INHALATION RT-QID PRN 03/09/24 08/18/24 History Sulfate Hfa] Atorvastatin [Lipitor] 10 mg PO DAILY 03/09/24 08/18/24 History Insulin Glargine,Hum.rec.anlog 60 units SQ HS 03/09/24 08/18/24 History [Lantus Solostar Pen] Insulin Lispro [humaLOG Kwikpen] See Protocol SQ TID-W/MEALS 03/09/24 08/18/24 History Baclofen [Lioresal] 20 mg PO BID 08/18/24 08/18/24 History Budesonide-Formot 160-4.5 Mcg 2 puff INHALATION RT-BID PRN 08/18/24 08/18/24 History [Symbicort 160-4.5 Mcg Inhaler] HYDROcodone/APAP 10-325MG [[place] 1 tab PO BID 08/18/24 08/18/24 History 10-325] Morphine Sulfate ER [Ms Contin] 30 mg PO BID 08/18/24 08/18/24 History amLODIPine [Norvasc] 10 mg PO DAILY 08/18/24 08/18/24 History Allergies Allergy/AdvReac Type Severity Reaction Status Date / Time gabapentin AdvReac Confusion Verified 08/18/24 18:42 ibuprofen [From Motrin] AdvReac Abdominal Verified 08/18/24 18:42 Pain and vomiting pregabalin [From Lyrica] AdvReac Confusion Verified 08/18/24 18:42 Physical Exam Vitals: Vital Signs Temp Pulse Pulse Resp BP BP Pulse Ox 08/19/24 07:14 98.4 F 82 14 158/80 97 08/19/24 01:24 98.4 F 83 16 189/90 97 08/18/24 23:31 85 18 175/68 98 08/18/24 19:12 84 18 173/68 97 08/18/24 13:06 97.8 F 99 20 174/97 98 Intake and Output 08/18/24 08/19/24 08/19/24 22:59 06:59 14:59 Intake Total 590 Balance 590 Intake: Oral 590 Other: # Voids 1 Weight 101.151 kg -GENERAL: The patient is alert and oriented x3, not in any acute distress. Well developed, well nourished. Obese HEENT: Pupils are round and equally reacting to light. EOMI. No scleral icterus. No conjunctival pallor. Normocephalic, atraumatic. No pharyngeal erythema. No thyromegaly. CARDIOVASCULAR: S1 and S2 present. No murmurs, rubs, or gallops. PULMONARY: Chest is clear to auscultation, no wheezing , no crackles. ABDOMEN: Soft, nontender, nondistended, normoactive bowel sounds. No palpable organomegaly. MUSCULOSKELETAL: No joint swelling or deformity. -EXTREMITIES: No cyanosis, clubbing, or pedal edema. Right knee tenderness especially on the medial side, no discoloration or swelling or warmth NEUROLOGICAL: Gross neurological examination did not reveal any focal deficits. SKIN: No rashes. no petechiae. Results CBC & Chem 7: 08/19/24 05:15 08/19/24 05:15 Labs: Abnormal Lab Results - Last 24 Hours (Table) 08/18/24 08/18/24 08/18/24 Range/Units 17:42 17:42 17:42 WBC (3.8-10.6) k/uL RBC 3.33 L (3.80-5.40) m/uL Hgb 9.2 L (11.4-16.0) gm/dL Hct 26.7 L (34.0-46.0) % RDW 17.5 H (11.5-15.5) % Plt Count 86 L (150-450) k/uL Lymphocytes # (Manual) (1.0-4.8) k/uL Metamyelocytes # (Man) 0.15 H (0) k/uL Myelocytes # (Manual) 0.04 H (0) k/uL Nucleated RBCs 12 H (0-0) /100 WBC APTT 18.2 L (22.0-30.0) sec D-Dimer 5.29 H (<0.60) mg/L FEU Sodium 134 L (137-145) mmol/L Chloride 96 L (98-107) mmol/L BUN (7-17) mg/dL Glucose 180 H (74-99) mg/dL POC Glucose (mg/dL) (70-110) mg/dL Plasma Lactic Acid Vernon (0.7-2.0) mmol/L AST 42 H (14-36) U/L Alkaline Phosphatase 957 H (38-126) U/L Total Protein (6.3-8.2) g/dL Albumin (3.5-5.0) g/dL 08/18/24 08/19/24 08/19/24 Range/Units 17:42 05:15 05:15 WBC 3.3 L (3.8-10.6) k/uL RBC 2.91 L (3.80-5.40) m/uL Hgb 8.0 L (11.4-16.0) gm/dL Hct 23.5 L (34.0-46.0) % RDW 18.0 H (11.5-15.5) % Plt Count 72 L (150-450) k/uL Lymphocytes # (Manual) 0.76 L (1.0-4.8) k/uL Metamyelocytes # (Man) 0.07 H (0) k/uL Myelocytes # (Manual) 0.03 H (0) k/uL Nucleated RBCs 4 H (0-0) /100 WBC APTT (22.0-30.0) sec D-Dimer (<0.60) mg/L FEU Sodium 135 L (137-145) mmol/L Chloride (98-107) mmol/L BUN 19 H (7-17) mg/dL Glucose 175 H (74-99) mg/dL POC Glucose (mg/dL) (70-110) mg/dL Plasma Lactic Acid Vernon 2.3 H* (0.7-2.0) mmol/L AST (14-36) U/L Alkaline Phosphatase 846 H (38-126) U/L Total Protein 6.0 L (6.3-8.2) g/dL Albumin 3.3 L (3.5-5.0) g/dL 08/19/24 08/19/24 Range/Units 07:14 12:10 WBC (3.8-10.6) k/uL RBC (3.80-5.40) m/uL Hgb (11.4-16.0) gm/dL Hct (34.0-46.0) % RDW (11.5-15.5) % Plt Count (150-450) k/uL Lymphocytes # (Manual) (1.0-4.8) k/uL Metamyelocytes # (Man) (0) k/uL Myelocytes # (Manual) (0) k/uL Nucleated RBCs (0-0) /100 WBC APTT (22.0-30.0) sec D-Dimer (<0.60) mg/L FEU Sodium (137-145) mmol/L Chloride (98-107) mmol/L BUN (7-17) mg/dL Glucose (74-99) mg/dL POC Glucose (mg/dL) 179 H 283 H (70-110) mg/dL Plasma Lactic Acid Vernon (0.7-2.0) mmol/L AST (14-36) U/L Alkaline Phosphatase (38-126) U/L Total Protein (6.3-8.2) g/dL Albumin (3.5-5.0) g/dL Thrombosis Risk Factor Assmnt - Choose All That Apply Any of the Below Risk Factors Present?: Yes Each Factor Represents 1 point: Obesity (BMI >25) Other Risk Factors: Yes Each Risk Factor Represents 2 Points: Age 61-74 years Other congenital or acquired thrombophilia - If yes, enter type in comment: No Thrombosis Risk Factor Assessment Total Risk Factor Score: 3 Thrombosis Risk Factor Assessment Level: Moderate Risk Assessment and Plan Assessment: - Severe right knee pain. CT of the knee showing both sclerosis and lucency around both the distal femoral and proximal tibial bones. Nondisplaced erika prosthetic tibial fracture. - Elevated D-dimer with CT of the chest showing diffuse osteosclerosis of the bony structures suspicious for diffuse metastatic disease She has mediastinal and hilar lymphadenopathy with pulmonary nodules up to 1 cm while lymph node enlargement was up to 1.8 cm with differential diagnosis including s sarcoidosis, bronchiectasis or metastatic disease - History of breast cancer [address] of the chest showing right mastectomy with breast bed showing either reconstructive prostheses or implants versus seroma - New onset pancytopenia with splenomegaly - Diabetes mellitus, uncontrolled with history of elevated hemoglobin A1c and hyperglycemia, repeat hemoglobin A1c is pending - hypertension - hyperlipidemia - Obesity with BMI of 40.8 - Chronic low back pain on morphine twice daily at home - Noncompliance with follow-up Plan: Orthopedic team already evaluated the patient Hematology/oncology team consulted Hemoglobin A1c already ordered by orthopedic team. We will check vitamin B12 and TSH Continue with IV hydration Pain management consult Will do anemia workup, will check iron studies, B12, folate, occult blood in the stool Continue with her insulin and both Levemir and insulin sliding scale Labs and medication were reviewed.. Continue same treatment. Continue with symptomatic treatment. Resume home medication. Monitor labs and vitals. DVT and GI prophylaxis. Further recommendations as per clinical course of the patient DVT prophylaxis: Subcutaneous heparin GI Prophylaxis: Pepcid PT/OT: Pending Prognosis is guarded
[2024-08-19] MEDS: HEPARIN SODIUM,PORCINE 5,000 UNIT/ML 1 ML VIAL SQ SCH (22:43)
[2024-08-20 07:32] LABS: Glucose,Whole Blood 84 mg/dL (70-110)
[2024-08-20] MEDS: FAMOTIDINE 20 MG/2 ML VIAL IV SCH (08:18)
[2024-08-20] MEDS: ATORVASTATIN 10 MG TAB PO SCH (08:19)
--- NOTE | 2024-08-20 08:20 | P.PN ---
Progress Note - Text Progress Note Date: 08/20/24 There is no sign of acute periprosthetic joint infection on her aspiration from yesterday. On review of all of her imaging and given her recent history of breast cancer, I would recommend that the patient follow-up with an Orthopaedic Oncologist at [facility] or [place] for further management as an outpatient. In the interim, she should be toe-touch weight bearing on her operative extremity. I will sign off at this time, but please call with any questions.
--- NOTE | 2024-08-20 11:59 | P.PAINPG ---
Objective - Vital Signs Vital signs: Vital Signs Temp 98.1 F 08/20/24 07:29 Pulse 75 08/20/24 07:29 Resp 16 08/20/24 07:29 BP 143/80 08/20/24 07:29 Pulse Ox 98 08/20/24 07:29 FiO2 Intake & Output 08/19/24 08/20/24 08/20/24 18:59 06:59 18:59 Intake Total 480 1920 Balance 480 1920 Intake: Oral 480 1920 Other: # Voids 4 2 - Labs CBC & Chem 7: 08/19/24 05:15 08/19/24 05:15 Labs: Abnormal Lab Results - Last 24 Hours (Table) 08/19/24 08/19/24 08/19/24 Range/Units 05:14 05:15 12:01 POC Glucose (mg/dL) (70-110) mg/dL Hemoglobin A1c 8.0 H (<=6.0) % C-Reactive Protein 3.3 H (<1.0) mg/dL Urine Appearance Cloudy H (Clear) Ur Specific [place] 1.050 H (1.001-1.035) Urine Protein Trace H (Negative) Urine Glucose (UA) 3+ H (Negative) Ur Squamous Epith Cells 5 H (0-4) /hpf Urine Bacteria Rare H (None) /hpf Urine Mucus Few H (None) /hpf 08/19/24 08/19/24 08/19/24 Range/Units 12:10 17:11 19:58 POC Glucose (mg/dL) 283 H 203 H 201 H (70-110) mg/dL Hemoglobin A1c (<=6.0) % C-Reactive Protein (<1.0) mg/dL Urine Appearance (Clear) Ur Specific [place] (1.001-1.035) Urine Protein (Negative) Urine Glucose (UA) (Negative) Ur Squamous Epith Cells (0-4) /hpf Urine Bacteria (None) /hpf Urine Mucus (None) /hpf PQRS Measure Charge Sheet Comment: A 68 yr old INPATIENT female with a history of severe and chronic R knee pain and LBP > 1 yr secondary to radiculopathy, spondylosis and facet arthropathy without myelopathy presents today for evaluation. Pain level is provoked at 9 /10 in intensity, constant, localized in the R knee, achy in character without shooting pain. Pain is provoked by weight bearing. R knee joint aspiration performed 1 day ago. Pain is alleviated with medications, injections, compression on R knee, PT years ago, heat, repositioning and rest. 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 Interventional pain procedures completed include R SI injection Patient is currently on MS ER 30mg #60, Goodrich 10/325mg #60, Tyl Patient denies any side effects of the medication(s), denies excessive drowsiness or sleepiness, denies suicidal ideation and reports that the current pain medication is helping to control the pain and improve activities of daily living. Patient denies any motor or sensory deficits. Patient denies any fever or night sweats, denies any change in the bowel movements or urination. Physical Examination: +Diffuse R knee TTP -Constitutional: Cooperative. Not in acute distress . - Neurologic: Cranial nerve II to XII intact. No focal neurological deficits. - Psychatric: Alert & oriented x 3. Matching mood & appropriate affect. Judgment and insight intact. - Musculoskeletal: Cervical spine: Muscle bulk/ tone/ strength in the bilateral upper extremities normal Vertebral body tenderness to palpation over [place]ling test positive Distraction test positive Facet loading test positive TTP Thoracic spine Muscle bulk / tone/ strength in the bilateral paraspinal muscles normal Vertebral body tender to palpation over Facet loading test positive TTP Lumbar spine: Motor bulk/ tone/ strength lower extremities , thigh and legs : 5/5 Deep tendon reflexes : Normal Knee Jerk. Normal Ankle Jerk . Vertebral body tenderness to palpation over Lumbar Facet Loading Test positive Straight Leg Raise: positive at 30 degrees right side/ left side Gaenslen's Test positive Sacral spine : Severe tenderness over the Sacroiliac joint: right side / left side Range of motion: Flexion of the lumbar spine <60 degrees Range of motion: Extension of the lumbar spine <20 degrees Gaenslen's Test positive right side / left side Tiny test: positive right side / left side Thigh Thrust Test positive right side / left side Sacral Thrust Test positive right side / left side Assessment and plan: Chronic LBP secondary to radiculopathy, spondylosis with facet arthropathy without myelopathy, R knee DJD Recommendation of R intra articular knee injection. Risks, benefits of procedure discussed and pt verbalized understanding. Will hold Heparin 1 day prior to procedure. All questions answered. Chronic and current use of high-risk medication (Opioids). The patient was counseled about risk of opioid use, psychological risk associated with opioids and was orally counseled to not overuse , divert or sell medications. Pt is to store medication in a safe location. The patient is counseled against driving while using narcotic medications and also not to use alcohol or any illicit recreational drugs. Patient verbalized understanding that the lack of compliance will result in failure to renew narcotic prescription(s) as well as possible discharge from the clinic Diagnoses, prognosis and treatment options including but not limited to physical therapy, surgical interventions, interventional therapies and medication management including narcotics and adjuvant medication were discussed. All patient questions answered MAPS reviewed and it was appropriate. Blood tox screen from 10/02/23 reviewed and +Opiates (MS ER). Ample supply of MS ER 30mg #60 w 1 RF. Add Goodrich 10/325mg #60 w 1 RF. Opiate/ narcotic agreement renewed 04/15/24. I have spent less than 30 minutes on patient care today. Dr Dougherty was available by phone for the evaluation of this patient. The time was used to review the medical records including relevant urine studies and Prescription history (MAPs), review of the available imaging, evaluation and examination of the patient, coordination of care with the medical staff and if applicable referring physicians, as well as creation of the medical record - Pain Location Right Knee Non-Pharmacological Interventions: Darkened Room, Distraction Pharmacological Interventions: Discuss Pain Med Options PQRS Narrative: Smoking Status Former smoker Narcotic Agreement Date Signed 06/12/23 Blood Pressure [Left Arm] 143/80 Blood Pressure 175/68 Pain Intensity [Right Knee] 10 Pain Intensity 10 Pain Scale Used Non Verbal Pain Indicator Scale Used Numeric (1 - 10) Hx Alcohol Use (MH) No Home Medications: Ambulatory Orders Butalb/Acetaminophen/Caffeine [Fioricet 50-325-40 mg Tablet] 1 tab PO BID PRN 04/11/14 lisinopriL [Zestril] 40 mg PO DAILY 04/04/16 Albuterol Sulfate [Albuterol Sulfate Hfa] 2 puff INHALATION RT-QID PRN 03/09/24 Atorvastatin [Lipitor] 10 mg PO DAILY 03/09/24 Insulin Glargine,Hum.rec.anlog [Lantus Solostar Pen] 60 units SQ HS 03/09/24 Insulin Lispro [humaLOG Kwikpen] See Protocol SQ TID-W/MEALS 03/09/24 Baclofen [Lioresal] 20 mg PO BID 08/18/24 Budesonide-Formot 160-4.5 Mcg [Symbicort 160-4.5 Mcg Inhaler] 2 puff INHALATION RT-BID PRN 08/18/24 HYDROcodone/APAP 10-325MG [[place] 10-325] 1 tab PO BID 08/18/24 Morphine Sulfate ER [Ms Contin] 30 mg PO BID 08/18/24 amLODIPine [Norvasc] 10 mg PO DAILY 08/18/24 Controlled Substance Measures - Controlled Substance Measures Is patient prescribed a controlled substance at discharge?: No
[2024-08-20 12:24] LABS: % Iron Saturation 36.39 (12.00-45.00)
[2024-08-20 12:26] LABS: Synovial Fld Crystals None Seen (None Seen)
[2024-08-20 12:29] LABS: Glucose,Whole Blood 153 mg/dL (70-110)
[2024-08-20] MEDS: ANASTROZOLE 1 MG TAB PO SCH (12:42)
--- NOTE | 2024-08-20 13:11 | P.CONS ---
History of Present Illness - Reason for Consult Consult date: 08/20/24 pancytopenia, possible metastatic disease Requesting physician: Ferdinand E Sheet - Chief Complaint rt knee pain - History of Present Illness Mrs. Valentino is a female pt of Dr. Yancey who had an abnormal right breast screening mammogram in Dec, 2021. At that time she had right nipple retraction, present for a few months. Additional breast imaging revealed 2.0 x 2.4 x 2.0 cm mass at 3:00 in the right breast and an abnormal right axilla node. 01/02/2022 core biopsies of the right breast mass and right axilla were positive for G2, IDC, ER/MT+ (91%,71%), HER2/CHRIS negative by FISH (2+ by IHC). 02/06/2022 she had right mastectomy and sentinel nodes biopsy, final pathology revealed grade 2, IDC, 3 cm, 1/ node was positive for micromets. She had a OncotypeDx RS 21, unclear significance of adjuvant chemo benefit. She did complete radiation. She was recommended to start anastrozole, which she did initially. She ran out of Rx, did not refill in Jun 2022, was last seen in ofc 12/2022 and stated she was going to resume. Not seen in ofc since. When seen today she does not remember last time she took anastrazole but it has been a long time Pt currently admitted for pain in the rt knee, progressive recently, persistent since February, she is following with Orthopedics. She fell in Jun and since then her pain has worsened. Hem/Onc has been consulted for pancytopenia, new onset and concerns for metastatic disease because of bone imaging abnormalities. Pt states when she was sick earlier this year she lost some weight but, that is stabilized. She reports early saiety, having to eat small, more frequent meals, if she eats too much at once she will vomit. She denies fevers, chills, chest pain, difficulty swallowing, abdominal pain, cramping, distention, acute changes in bowel or bladder habits. She was not aware of any changes in her blood. 05/02/24 CBC showed a WBC of 6.9, hemoglobin 13.1, hematocrit 39.5, platelets 173,000. Her alk phos was elevated at 720, CRP was 4. On admission WBC 3.3, hemoglobin 8, hematocrit 23.5, platelets 72,000. Review of Systems 10 point ROS is neg except as stated in HPI Past Medical History Past Medical History: Asthma, Cancer, COPD, Diabetes Mellitus, GERD/Reflux, Hyperlipidemia, Hypertension, Musculoskeletal Disorder Additional Past Medical History / Comment(s): Migraine headaches. Hx kidney stone. Chronic back pain, numbness and tingling bilateral lower extremities. Right Breast cancer History of Any Multi-Drug Resistant Organisms: None Reported, MRSA Year Discovered:: 2011 MDRO Source:: UNK Past Surgical History: Appendectomy, Back Surgery, Breast Surgery, Cholecystectomy, Joint Replacement, Orthopedic Surgery Additional Past Surgical History / Comment(s): Fusion w/ kane also back surgery 04/21/2019. Left Shoulder Replacement, Right knee replacement, plate in right wrist, left thumb joint repair, Right CTR, Right shoulder arthroscopy. micheal cataracts, LARYNGOSCOPY, November 2016 Cervical Plate, PAIN CLINIC PROCEDURES, right masectomy Past Anesthesia/Blood Transfusion Reactions: No Reported Reaction Past Psychological History: No Psychological Hx Reported Smoking Status: Former smoker Past Alcohol Use History: None Reported Additional Past Alcohol Use History / Comment(s): SMOKED 1PPD, STARTED SMOKING AGE 17, AND QUIT IN 1981. Past Drug Use History: None Reported - Past Family History Brother(s) Family Medical History: Cancer, Myocardial Infarction (ID) Father Family Medical History: Cancer Additional Family Medical History / Comment(s): throat, colon, liver, and brain cancer. Mother Family Medical History: Myocardial Infarction (ID) Additional Family Medical History / Comment(s): at 54 of ID. Medications and Allergies Home Medications Medication Instructions Recorded Confirmed Type Butalb/Acetaminophen/Caffeine 1 tab PO BID PRN 04/11/14 08/18/24 History [Fioricet 50-325-40 mg Tablet] lisinopriL [Zestril] 40 mg PO DAILY 04/04/16 08/18/24 History Albuterol Sulfate [Albuterol 2 puff INHALATION RT-QID PRN 03/09/24 08/18/24 History Sulfate Hfa] Atorvastatin [Lipitor] 10 mg PO DAILY 03/09/24 08/18/24 History Insulin Glargine,Hum.rec.anlog 60 units SQ HS 03/09/24 08/18/24 History [Lantus Solostar Pen] Insulin Lispro [humaLOG Kwikpen] See Protocol SQ TID-W/MEALS 03/09/24 08/18/24 H istory Baclofen [Lioresal] 20 mg PO BID 08/18/24 08/18/24 History Budesonide-Formot 160-4.5 Mcg 2 puff INHALATION RT-BID PRN 08/18/24 08/18/24 History [Symbicort 160-4.5 Mcg Inhaler] HYDROcodone/APAP 10-325MG [[place] 1 tab PO BID 08/18/24 08/18/24 History 10-325] Morphine Sulfate ER [Ms Contin] 30 mg PO BID 08/18/24 08/18/24 History amLODIPine [Norvasc] 10 mg PO DAILY 08/18/24 08/18/24 History Allergies Allergy/AdvReac Type Severity Reaction Status Date / Time gabapentin AdvReac Confusion Verified 08/18/24 18:42 ibuprofen [From Motrin] AdvReac Abdominal Verified 08/18/24 18:42 Pain and vomiting pregabalin [From Lyrica] AdvReac Confusion Verified 08/18/24 18:42 Physical Exam Vitals: Vital Signs Temp Pulse Resp BP Pulse Ox 08/20/24 07:29 98.1 F 75 16 143/80 98 08/20/24 01:01 98.5 F 83 16 119/70 97 08/19/24 20:00 98.2 F 80 16 149/68 96 08/19/24 13:50 98.2 F 83 16 159/98 97 Intake and Output 08/19/24 08/20/24 08/20/24 22:59 06:59 14:59 Intake Total 600 1800 Balance 600 1800 Intake: Oral 600 1800 Other: # Voids 4 2 - Constitutional General appearance: cooperative, mild distress (emotional), obese - EENT Eyes: anicteric sclerae, EOMI ENT: hearing grossly normal, normal oropharynx - Neck Neck: no lymphadenopathy - Respiratory Respiratory: bilateral: CTA - Cardiovascular Rhythm: regular Heart sounds: normal: S1, S2 Abnormal Heart Sounds: systolic murmur leg Peripheral Edema: right: Trace, left: None dorsalis pedis Peripheral Pulses: left: Normal - Gastrointestinal General gastrointestinal: no absent bowel sounds, no decreased bowel sounds, no distended, no hepatomegaly, no hyperactive bowel sounds, normal bowel sounds, no organomegaly, no rigid, no scaphoid, soft, no splenomegaly, no tenderness, no umbilical hernia, no ventral hernia - Integumentary Integumentary: normal - Neurologic Neurologic: CNII-XII intact - Psychiatric Psychiatric: A&O x's 3, appropriate affect, intact judgment & insight Results CBC & Chem 7: 08/19/24 05:15 08/19/24 05:15 Labs: Abnormal Lab Results - Last 24 Hours (Table) 08/19/24 08/19/24 08/19/24 Range/Units 05:14 05:15 12:01 POC Glucose (mg/dL) (70-110) mg/dL Hemoglobin A1c 8.0 H (<=6.0) % C-Reactive Protein 3.3 H (<1.0) mg/dL Urine Appearance Cloudy H (Clear) Ur Specific [place] 1.050 H (1.001-1.035) Urine Protein Trace H (Negative) Urine Glucose (UA) 3+ H (Negative) Ur Squamous Epith Cells 5 H (0-4) /hpf Urine Bacteria Rare H (None) /hpf Urine Mucus Few H (None) /hpf 08/19/24 08/19/24 08/19/24 Range/Units 12:10 17:11 19:58 POC Glucose (mg/dL) 283 H 203 H 201 H (70-110) mg/dL Hemoglobin A1c (<=6.0) % C-Reactive Protein (<1.0) mg/dL Urine Appearance (Clear) Ur Specific [place] (1.001-1.035) Urine Protein (Negative) Urine Glucose (UA) (Negative) Ur Squamous Epith Cells (0-4) /hpf Urine Bacteria (None) /hpf Urine Mucus (None) /hpf CT scan - chest: report reviewed Venous US: report reviewed Assessment and Plan (1) Right knee pain Current Visit: Yes Status: Acute Priority: High Code(s): M25.561 - PAIN IN RIGHT KNEE SNOMED Code(s): 8873311557 (2) Pancytopenia Current Visit: Yes Status: Acute Priority: High Code(s): D61.818 - OTHER PANCYTOPENIA SNOMED Code(s): 508771726 (3) Breast cancer Current Visit: Yes Status: Acute Priority: High Code(s): C50.919 - MALIGNANT NEOPLASM OF UNSP SITE OF UNSPECIFIED FEMALE BREAST SNOMED Code(s): 603653737 Plan: Rt knee pain -Been worsening since February. Patient had a nuclear medicine bone scan 03/12/2024, the impression reports right knee tibial metaphysis greater than left knee and given the history, infection felt more so than loosening of the hardware. Pt being followed by Orthopedics. Chronic back pain -Pt has chronic back pain, follows with pain mgmt. She reports that her med ications have not been sent in to her pharmacy. Hx ER/MT positive, Her neg breast cancer, diagnosed 2019 -Patient had surgery, Oncotype score was 21, unclear if any significant benefit from receiving adjuvant chemotherapy so, pt was recommended radiation adn AI. Patient completed radiation therapy. She has taken AI erratically over the last 4 years. -Nothing abnormal felt on the right chest wall, no LAD bilateral axilla. -Tumor markers ordered -NM bone scan, CT AP ordered Pancytopenia -New onset. CBC in Apr was normal -Pancytopenia workup ordered. As of note, patient did NOT receive any chemotherapy. DDx include primary bone marrow disorder, metastatic breast cancer infiltrating the bone marrow, chronic inflammation, infection. Work up ordered, will f/u, further recs to follow. -Transfuse for hemoglobin less than 7 or if symptomatic. Transfuse for platele ts less than 10,000 or if patient is symptomatic. Currently she is okay for DVT prophylaxis. WBC/ANC not normal but adequate at this time.
[2024-08-20] MEDS: IOPAMIDOL CONTRAST (ORAL USE) VIAL PO PRN (15:00)
[2024-08-20 15:56] LABS: Reticulocyte % 4.19 % (0.10-1.80)
[2024-08-20 16:11] LABS: Protein, Total 5.5 g/dL (6.2-8.2)
[2024-08-20 17:19] LABS: Glucose,Whole Blood 218 mg/dL (70-110)
--- NOTE | 2024-08-20 17:27 | CT ---
EXAMINATION TYPE: CT abdomen pelvis w con DATE OF EXAM: 08/20/2024 5:07 PM COMPARISON: CT abdomen pelvis most recent from 02/15/2019. CLINICAL INDICATION: Female, 69 years old with history of Hx breast cancer, LAD in the chest; TECHNIQUE: Axial CT abdomen pelvis w con;Sagittal and coronal reformats were created on a separate w orkstation. Contrast used: mL of , (none if empty) Oral contrast used: (none if empty) CT DLP: mGycm, Automated exposure control for dose reduction was used. FINDINGS: LOWER CHEST: Partially visualized right breast implant. ABDOMEN LIVER: Nodular contour to liver. The right lobe hypertrophy. GALLBLADDER AND BILE DUCTS: The gallbladder is surgically absent. PANCREAS: Unremarkable. SPLEEN: Unremarkable. ADRENAL GLANDS: Unremarkable. KIDNEYS AND URETERS: No evidence of hydronephrosis or renal calculus. The ureters are unremarkable. PELVIS BLADDER: No evidence for wall thickening or mass given limitations of exam. REPRODUCTIVE: Unremarkable. ABDOMEN & PELVIS STOMACH AND BOWEL: Second portion duodenal diverticulum. Scattered diverticula are noted throughout t he colon. No evidence of bowel obstruction. PERITONEUM/RETROPERITONEUM: No evidence of pneumoperitoneum or free fluid. VASCULATURE: Mild atherosclerotic calcifications are present throughout the abdominal aorta and its b ranches. No evidence of aortic aneurysm. MUSCULOSKELETAL: Diffuse scattered sclerotic lesions throughout the osseous structures involving near ly every osseous structure. Fixation hardware L5-S1 appears intact. Right sacroiliac joint fixation h ardware appears intact. Subacute fracture of left rib 11 there is incomplete osseous fusion. LYMPH NODES: No gross evidence for lymphadenopathy. No greater than 1.0 cm in short axis lymph nodes identified. There are lymph nodes in the retroperitoneum measuring less than. The bowel includes righ t of the IVC near its bifurcation/right common iliac measuring 8 mm in short axis series 3 image 45. SOFT TISSUE/ABDOMINAL WALL: Unremarkable IMPRESSION: 1. Diffuse osseous metastatic disease. No greater than 1.0 cm short axis lymph nodes suggests intra- abdominal metastatic disease. 2. Subacute fracture of left rib 11. Incomplete osseous fusion at this fracture site. 3. Nodular contour to liver correlate for cirrhosis. 4. Cholecystectomy changes. [facility], , 08/20/2024 5:25 PM
[2024-08-20] MEDS: ONDANSETRON 4 MG/2 ML VIAL IVP PRN (17:53)
[2024-08-20] MEDS: INSULIN ASPART (NovoLOG) 100 UNIT/ML VIAL SQ SCH (17:53)
[2024-08-20 20:44] LABS: Glucose,Whole Blood 254 mg/dL (70-110)
[2024-08-20] MEDS ORDERED: INSULIN DETEMIR (LEVEMIR) 100 UNIT/ML SYR SQ SCH (21:00)
[2024-08-20] MEDS: INSULIN DETEMIR (LEVEMIR) 100 UNIT/ML SYR SQ SCH (21:20)
[2024-08-20 22:06] LABS: Rheumatoid Factor, Qnt <15 IU/mL (0-15)
--- NOTE | 2024-08-20 22:09 | P.PN ---
Subjective This is a pleasant 69 years old female with past medical history of multiple medical problems as below Presents with right knee pain since February. She felt on June and hurt her right knee and it looks like there was some fracture as per patient but it was treated medically. Since then it has been having severe pain in the right knee, she cannot walk because of her severe pain, she stated that her pain is similar since last June and that is why she came to the hospital. Other than that she denies any other specific complaints as below She denies smoking alcohol or illicit drugs. On review with the records Patient was admitted in this facility 03/09/2024- 03/13/2024. At that time she has been evaluated by Dr. Saucedo at [facility] . She had also severe knee pain and she had CT of the knee and bone scan both reviewed by orthopedic team. And occult fracture and joint infection has been ruled out, orthopedic team had no plans for surgery at that time as she has postsurgical candidate until her hemoglobin A1c controlled below 8. At that time her hemoglobin A1c was 11.1. I saw the patient at that time I talked to her about better control of diabetes so she can have more surgical intervention. Patient was referred to her PCP Dr. Armas as well as I referred her to occ ther Dr. Hoffman. As there is no occ ther in-house in this facility During this admission her sugar still on the high side 179, 283, 203 and 201. We are going to recheck hemoglobin A1c tomorrow. This time she went to [facility] she has been referred to this facility. She is hemodynamically stable She is afebrile. - Labs reviewed showing pancytopenia with WBC dropped to 3.3, hemoglobin 8.0 and platelet count 72. - D-dimer was elevated 5.2, she had CTA of the chest showing negative for pulmonary embolism for limited study because of the motion artifact. Also she had diffuse osteosclerosis of the bony structures suspicious for diffuse metastatic disease She has mediastinal and hilar lymphadenopathy with pulmonary nodules up to 1 cm while lymph node enlargement was up to 1.8 cm with differential diagnosis including s sarcoidosis, bronchiectasis or metastatic disease Also patient is s/p right mastectomy with breast bed showing either reconstructive prostheses or implants versus seroma - She also has CT of the knee showing sclerosis and lucency around both the distal femoral and proximal tibial bones. Nondisplaced periprosthetic tibial fracture. 1/ Patient is still complaining from severe pain in her right knee area with limitation movement, pain management consult was obtained today and her pain medicine was updated Patient glucose still somewhat uncontrolled. We lowered her Levemir 60 units down to 40 units from tomorrow and increase her NovoLog with meals up to 7 units 3 times daily AC. Hemoglobin A1c already ordered by orthopedic team came back 8% which is improved from 6 months ago at 11.1% She is afebrile Today she is telling me after she has been discharged on February she did not follow-up with orthopedic team but she wants to see her oncologist Dr. Yancey, at that time she continued to be monitored. Also she denies history of implants in her right breast area Because there is suspicion of right breast seroma we will going to consult surgery team Orthopedic team follow-up with the patient today and recommended that patient follow-up with oncologist orthopedic at [facility] or [facility] on outpatient basis Oncology team evaluation is done, patient was started on anastrozole and further workup for pancytopenia is ordered. As well as bone scan TSH is pending Objective - Vital Signs Vital signs: Vital Signs Temp 97.8 F 08/20/24 12:24 Pulse 77 08/20/24 12:24 Resp 16 08/20/24 12:24 BP 145/80 08/20/24 12:24 Pulse Ox 97 08/20/24 12:24 FiO2 Intake & Output 08/19/24 08/20/24 08/20/24 18:59 06:59 18:59 Intake Total 480 1920 Balance 480 1920 Intake: Oral 480 1920 Other: # Voids 4 2 - Exam GENERAL: The patient is alert and oriented x3, not in any acute distress. Well developed, well nourished. Obese HEENT: Pupils are round and equally reacting to light. EOMI. No scleral icterus. No conjunctival pallor. Normocephalic, atraumatic. No pharyngeal erythema. No thyromegaly. CARDIOVASCULAR: S1 and S2 present. No murmurs, rubs, or gallops. PULMONARY: Chest is clear to auscultation, no wheezing , no crackles. ABDOMEN: Soft, nontender, nondistended, normoactive bowel sounds. No palpable organomegaly. MUSCULOSKELETAL: No joint swelling or deformity. -EXTREMITIES: No cyanosis, clubbing, or pedal edema. Severe pain and tenderness on the medial aspect of the right knee with limitation of movement NEUROLOGICAL: Gross neurological examination did not reveal any focal deficits. SKIN: No rashes. no petechiae. - Labs CBC & Chem 7: 08/19/24 05:15 08/19/24 05:15 Labs: Abnormal Lab Results - Last 24 Hours (Table) 08/18/24 08/19/24 08/19/24 Range/Units 17:42 05:14 05:15 ESR 48 H (0-30) mm/Hr POC Glucose (mg/dL) (70-110) mg/dL Hemoglobin A1c 8.0 H (<=6.0) % Ferritin 1375.0 H (10.0-291.0) ng/mL Urine Appearance (Clear) Ur Specific [place] (1.001-1.035) Urine Protein (Negative) Urine Glucose (UA) (Negative) Ur Squamous Epith Cells (0-4) /hpf Urine Bacteria (None) /hpf Urine Mucus (None) /hpf 08/19/24 08/19/24 08/19/24 Range/Units 12:01 17:11 19:58 ESR (0-30) mm/Hr POC Glucose (mg/dL) 203 H 201 H (70-110) mg/dL Hemoglobin A1c (<=6.0) % Ferritin (10.0-291.0) ng/mL Urine Appearance Cloudy H (Clear) Ur Specific [place] 1.050 H (1.001-1.035) Urine Protein Trace H (Negative) Urine Glucose (UA) 3+ H (Negative) Ur Squamous Epith Cells 5 H (0-4) /hpf Urine Bacteria Rare H (None) /hpf Urine Mucus Few H (None) /hpf 08/20/24 Range/Units 12:26 ESR (0-30) mm/Hr POC Glucose (mg/dL) 153 H (70-110) mg/dL Hemoglobin A1c (<=6.0) % Ferritin (10.0-291.0) ng/mL Urine Appearance (Clear) Ur Specific [place] (1.001-1.035) Urine Protein (Negative) Urine Glucose (UA) (Negative) Ur Squamous Epith Cells (0-4) /hpf Urine Bacteria (None) /hpf Urine Mucus (None) /hpf Assessment and Plan Assessment: - Severe right knee pain. CT of the knee showing both sclerosis and lucency around both the distal femoral and proximal tibial bones. Nondisplaced periprosthetic tibial fracture. - Elevated D-dimer with CT of the chest showing diffuse osteosclerosis of the bony structures suspicious for diffuse metastatic disease She has mediastinal and hilar lymphadenopathy with pulmonary nodules up to 1 cm while lymph node enlargement was up to 1.8 cm with differential diagnosis including s sarcoidosis, bronchiectasis or metastatic disease - History of breast cancer [address] of the chest showing right mastectomy with breast bed showing either reconstructive prostheses or implants versus seroma - New onset pancytopenia with splenomegaly - Diabetes mellitus, uncontrolled with history of elevated hemoglobin A1c and hyperglycemia, repeat hemoglobin A1c is pending - hypertension - hyperlipidemia - Obesity with BMI of 40.8 - Chronic low back pain on morphine twice daily at home - Noncompliance with follow-up Plan: Orthopedic team already evaluated the patient, they signed off the case and they recommended patient follow-up with oncologist orthopedic service at [facility] as an outpatient basis Hematology/oncology team consulted, patient was started on anastrozole, further workup for pancytopenia, bone and bone scan which is pending We will check vitamin B12 and TSH Continue with IV hydration Pain management consult Will do anemia workup, will check iron studies, B12, folate, occult blood in the stool Continue with her insulin and both Levemir and insulin sliding scale Labs and medication were reviewed.. Continue same treatment. Continue with symptomatic treatment. Resume home medication. Monitor labs and vitals. DVT and GI prophylaxis. Further recommendations as per clinical course of the patient DVT prophylaxis: Subcutaneous heparin GI Prophylaxis: Pepcid PT/OT: Pending Prognosis is guarded
[2024-08-21 07:44] LABS: Glucose,Whole Blood 123 mg/dL (70-110)
[2024-08-21 09:40] LABS: ALT 13 U/L (8-44); AST 39 U/L (13-35); Albumin 3.1 g/dL (3.8-4.9); Albumin/Globulin Ratio 1.29 Ratio (1.60-3.17); Alkaline Phosphatase 755 U/L (41-126); BUN/Creat Ratio 17.25 Ratio (12.00-20.00); Bilirubin, Conjugated 0.28 mg/dL (0.20-0.40); Bilirubin,Unconjugated 0.22 mg/dL (0.20-1.00); Blood Urea Nitrogen 13.8 mg/dL (9.0-27.0); Calcium 8.6 mg/dL (8.7-10.3); Carbon Dioxide 23.9 mmol/L (21.6-31.8); Chloride 100 mmol/L (96-109); Globulin 2.4 g/dL (1.6-3.3); Glucose 120 mg/dL (70-110); Potassium 4.3 mmol/L (3.5-5.5); Sodium 136 mmol/L (135-145); Total Bilirubin 0.5 mg/dL (0.3-1.2); Total Protein 5.5 g/dL (6.2-8.2)
[2024-08-21 10:57] LABS: Basophils # (M) 0.12 X 10*3/uL (0.00-0.10); Eosinophils # (M) 0.03 X 10*3/uL (0.04-0.35); HCT 22.7 % (37.2-46.3); HGB 7.1 g/dL (12.0-15.0); Lymphocytes # (M) 1.11 X 10*3/uL (0.90-5.00); MCH 26.4 pg (27.0-32.0); MCHC 31.3 g/dL (32.0-37.0); MCV 84.4 FL (80.0-97.0); Metamyelocytes % 3 % (0-0); Microcytosis (M) 2+ (None Seen); Monocytes # (M) 0.18 X 10*3/uL (0.20-1.00); NRBC Per 100 WBC 0.32 X 10*3/uL (0.00-0.01); Neutrophils # (M) 1.54 X 10*3/uL (1.80-7.70); Neutrophils % (M) 50 %; Nucleated Red Blood Cells 19 /100 WBCS; Platelet Count 63 X 10*3/uL (140-440); RBC 2.69 X 10*6/uL (4.10-5.20); RDW 17.3 % (11.5-14.5); WBC 3.07 X 10*3/uL (4.50-10.00)
--- NOTE | 2024-08-21 11:56 | P.PN ---
Subjective This is a pleasant 69 years old female with past medical history of multiple medical problems as below Presents with right knee pain since February. She felt on June and hurt her right knee and it looks like there was some fracture as per patient but it was treated medically. Since then it has been having severe pain in the right knee, she cannot walk because of her severe pain, she stated that her pain is similar since last June and that is why she came to the hospital. Other than that she denies any other specific complaints as below She denies smoking alcohol or illicit drugs. On review with the records Patient was admitted in this facility 03/09/2024- 03/13/2024. At that time she has been evaluated by Dr. Saucedo at [facility] . She had also severe knee pain and she had CT of the knee and bone scan both reviewed by orthopedic team. And occult fracture and joint infection has been ruled out, orthopedic team had no plans for surgery at that time as she has postsurgical candidate until her hemoglobin A1c controlled below 8. At that time her hemoglobin A1c was 11.1. I saw the patient at that time I talked to her about better control of diabetes so she can have more surgical intervention. Patient was referred to her PCP Dr. Armas as well as I referred her to appian bpm developer Dr. Hoffman. As there is no appian bpm developer in-house in this facility During this admission her sugar still on the high side 179, 283, 203 and 201. We are going to recheck hemoglobin A1c tomorrow. This time she went to [facility] she has been referred to this facility. She is hemodynamically stable She is afebrile. - Labs reviewed showing pancytopenia with WBC dropped to 3.3, hemoglobin 8.0 and platelet count 72. - D-dimer was elevated 5.2, she had CTA of the chest showing negative for pulmonary embolism for limited study because of the motion artifact. Also she had diffuse osteosclerosis of the bony structures suspicious for diffuse metastatic disease She has mediastinal and hilar lymphadenopathy with pulmonary nodules up to 1 cm while lymph node enlargement was up to 1.8 cm with differential diagnosis including s sarcoidosis, bronchiectasis or metastatic disease Also patient is s/p right mastectomy with breast bed showing either reconstructive prostheses or implants versus seroma - She also has CT of the knee showing sclerosis and lucency around both the distal femoral and proximal tibial bones. Nondisplaced periprosthetic tibial fracture. 08/20 Patient is still complaining from severe pain in her right knee area with limitation movement, pain management consult was obtained today and her pain medicine was updated Patient glucose still somewhat uncontrolled. We lowered her Levemir 60 units down to 40 units from tomorrow and increase her NovoLog with meals up to 7 units 3 times daily AC. Hemoglobin A1c already ordered by orthopedic team came back 8% which is improved from 6 months ago at 11.1% She is afebrile Today she is telling me after she has been discharged on February she did not follow-up with orthopedic team but she wants to see her oncologist Dr. Yancey, at that time she continued to be monitored. Also she denies history of implants in her right breast area Because there is suspicion of right breast seroma we will going to consult surgery team Orthopedic team follow-up with the patient today and recommended that patient follow-up with oncologist orthopedic at [facility] or [facility] on outpatient basis Oncology team evaluation is done, patient was started on anastrozole and further workup for pancytopenia is ordered. As well as bone scan TSH is pending 08/21 Patient still complains from severe knee pain, however as per staff patient was able to walk that evening she declined to participate in physical therapy Pain service consult they did not recommend knee injection because of her prosthesis Patient had CT of the abdomen today showing extensive osseous metastatic disease, also there is subacute fracture of the left rib 11. Incomplete osseous fusion at the fracture site. Nodular density of the liver correlate for cirrhosis She tolerates diet well, sugars better controlled today Bone scan ordered today is pending Pancytopenia is worsening. WBC 3.3 down to 3.0, hemoglobin 8.0 down to 7.1 and platelet count 72 down to 63 Because of this I will discontinue subcutaneous heparin Will continue close monitoring of hemoglobin and transfuse if is less than 7. Hematology team already on the case Active Medications Generic Name Dose Route Start Last Admin Trade Name Freq PRN Reason Stop Dose Admin Acetaminophen/Butalbital/Caffeine 1 each 08/19/24 12:55 Butalb/Apap/Caff 50-325-40mg Tab PO BID PRN Migraine Headache Hydrocodone Bitart/Acetaminophen 1 each 08/19/24 12:55 08/20/24 15:03 Hydrocodone/Apap 10-325mg 1 Each Tab PO 1 each BID PRN Administration Pain Albuterol Sulfate 2.5 mg 08/19/24 12:55 Albuterol Nebulized 2.5 Mg/3 Ml INHALATION RT-QID PRN Shortness Of Breath Amlodipine Besylate 10 mg 08/19/24 13:00 08/21/24 08:56 Amlodipine 10 Mg Tab PO 10 mg DAILY JOCELYNE Administration Anastrozole 1 mg 08/20/24 12:00 08/21/24 08:57 Anastrozole 1 Mg Tab PO 1 mg DAILY JOCELYNE Administration Atorvastatin Calcium 10 mg 08/20/24 09:00 08/21/24 08:57 Atorvastatin 10 Mg Tab PO 10 mg DAILY JOCELYNE Administration Baclofen 20 mg 08/19/24 21:00 08/21/24 08:57 Baclofen 10 Mg Tab PO 20 mg BID JOCELYNE Administration Budesonide/Formoterol Fumarate 2 puff 08/19/24 12:55 Symbicort 160-4.5 Mcg Inhaler INHALATION RT-BID PRN Shortness Of Breath Dextrose/Water 25 ml 08/19/24 12:56 Dextrose 50% Syringe 50 Ml IVP PER PROTOCOL PRN Hypoglycemia Protocol Dextrose/Water 50 ml 08/19/24 12:56 Dextrose 50% Syringe 50 Ml IVP PER PROTOCOL PRN Hypoglycemia Protocol Famotidine 20 mg 08/20/24 09:00 08/21/24 08:58 Famotidine 20 Mg/2 Ml Vial IV 20 mg Q12HR JOCELYNE Administration Hydromorphone HCl 1 mg 08/18/24 18:55 08/21/24 06:09 Hydromorphone 1 Mg/Ml 1 Ml Syringe IVP 1 mg Q3HR PRN Administration Severe Pain (Scale 7 to 10) Sodium Chloride 1,000 mls @ 75 mls/hr 08/18/24 19:00 08/21/24 03:28 Saline 0.9% IV 75 mls/hr .[id number] JOCELYNE Administration Insulin Aspart 0 unit 08/19/24 17:30 08/21/24 08:38 Insulin Aspart (Novolog) 100 Unit/Ml Vial SQ Not Given ACHS [facility] Protocol Insulin Aspart 7 unit 08/21/24 17:30 Insulin Aspart (Novolog) 100 Unit/Ml Vial SQ AC-SUPPER [facility] Insulin Detemir 40 unit 08/21/24 21:00 Insulin Detemir (Levemir) 100 Unit/Ml Syr SQ HS [facility] Lisinopril 40 mg 08/19/24 13:00 08/21/24 08:57 Lisinopril 20 Mg Tab PO 40 mg DAILY [facility] Administration Morphine Sulfate 30 mg 08/19/24 21:00 08/21/24 08:56 Morphine Sulfate Er 30 Mg Tablet PO 30 mg BID [facility] Administration Protocol Naloxone HCl 0.2 mg 08/18/24 18:55 Naloxone 0.4 Mg/Ml 1 Ml Vial IV Q2M PRN Opioid Reversal Ondansetron HCl 4 mg 08/18/24 18:55 08/21/24 06:12 Ondansetron 4 Mg/2 Ml Vial IVP 4 mg Q8HR PRN Administration Nausea And Vomiting Objective - Vital Signs Vital signs: Vital Signs Temp 98.6 F 08/21/24 07:30 Pulse 76 08/21/24 07:30 Resp 15 08/21/24 07:30 BP 115/65 08/21/24 07:30 Pulse Ox 94 L 08/21/24 07:30 FiO2 Intake & Output 08/20/24 08/21/24 08/21/24 18:59 06:59 18:59 Intake Total 1989 1050 Output Total 700 Balance 1989 350 Intake: Intake, IV Titration 750 Amount Sodium Chloride 0.9% 1, 750 000 ml @ 75 mls/hr IV . [id number] [facility] Rx#:[id number] Oral 1240 1050 Output: Urine 700 Other: Voiding Method Bedside Commode # Voids 3 - Exam GENERAL: The patient is alert and oriented x3, not in any acute distress. Well developed, well nourished. Obese HEENT: Pupils are round and equally reacting to light. EOMI. No scleral icterus. No conjunctival pallor. Normocephalic, atraumatic. No pharyngeal erythema. No thyromegaly. CARDIOVASCULAR: S1 and S2 present. No murmurs, rubs, or gallops. PULMONARY: Chest is clear to auscultation, no wheezing , no crackles. ABDOMEN: Soft, nontender, nondistended, normoactive bowel sounds. No palpable organomegaly. MUSCULOSKELETAL: No joint swelling or deformity. -EXTREMITIES: No cyanosis, clubbing, or pedal edema. Severe pain and tenderness on the medial aspect of the right knee with limitation of movement NEUROLOGICAL: Gross neurological examination did not reveal any focal deficits. SKIN: No rashes. no petechiae. - Labs CBC & Chem 7: 08/21/24 03:25 08/21/24 03:25 Labs: Abnormal Lab Results - Last 24 Hours (Table) 08/18/24 08/19/24 08/20/24 Range/Units 17:42 05:15 09:43 WBC (4.50-10.00) X 10*3/uL RBC (4.10-5.20) X 10*6/uL Hgb (12.0-15.0) g/dL Hct (37.2-46.3) % MCH (27.0-32.0) pg MCHC (32.0-37.0) g/dL RDW (11.5-14.5) % Plt Count (140-440) X 10*3/uL Neutrophils # (Manual) (1.80-7.70) X 10*3/uL Monocytes # (Manual) (0.20-1.00) X 10*3/uL Eosinophils # (Manual) (0.04-0.35) X 10*3/uL Basophils # (Manual) (0.00-0.10) X 10*3/uL NRBC/100 WBC Diff (0.00-0.01) X 10*3/uL Microcytosis (manual) (None Seen) ESR 48 H (0-30) mm/Hr Retic Count (0.10-1.80) % Anion Gap (4.00-12.00) mmol/L Glucose (70-110) mg/dL POC Glucose (mg/dL) (70-110) mg/dL Calcium (8.7-10.3) mg/dL Ferritin 1375.0 H (10.0-291.0) ng/mL AST (13-35) U/L Alkaline Phosphatase (41-126) U/L C-Reactive Protein (0.00-0.80) mg/dL Total Protein (6.2-8.2) g/dL Total Protein (PEP) (6.2-8.2) g/dL Albumin (3.8-4.9) g/dL Albumin/Globulin Ratio (1.60-3.17) Ratio CA 15-3 Antigen 178.0 H (0.0-32.3) U/mL CA 27-29 (<38.6) U/mL 01/02/25 01/02/25 01/02/25 Range/Units 09:49 09:49 09:49 WBC (4.50-10.00) X 10*3/uL RBC (4.10-5.20) X 10*6/uL Hgb (12.0-15.0) g/dL Hct (37.2-46.3) % MCH (27.0-32.0) pg MCHC (32.0-37.0) g/dL RDW (11.5-14.5) % Plt Count (140-440) X 10*3/uL Neutrophils # (Manual) (1.80-7.70) X 10*3/uL Monocytes # (Manual) (0.20-1.00) X 10*3/uL Eosinophils # (Manual) (0.04-0.35) X 10*3/uL Basophils # (Manual) (0.00-0.10) X 10*3/uL NRBC/100 WBC Diff (0.00-0.01) X 10*3/uL Microcytosis (manual) (None Seen) ESR 37 H (0-30) mm/Hr Retic Count 4.19 H (0.10-1.80) % Anion Gap (4.00-12.00) mmol/L Glucose (70-110) mg/dL POC Glucose (mg/dL) (70-110) mg/dL Calcium (8.7-10.3) mg/dL Ferritin (10.0-291.0) ng/mL AST (13-35) U/L Alkaline Phosphatase (41-126) U/L C-Reactive Protein (0.00-0.80) mg/dL Total Protein (6.2-8.2) g/dL Total Protein (PEP) 5.5 L (6.2-8.2) g/dL Albumin (3.8-4.9) g/dL Albumin/Globulin Ratio (1.60-3.17) Ratio CA 15-3 Antigen (0.0-32.3) U/mL CA 27-29 (<38.6) U/mL 08/20/24 08/20/24 08/20/24 Range/Units 09:49 10:00 12:26 WBC (4.50-10.00) X 10*3/uL RBC (4.10-5.20) X 10*6/uL Hgb (12.0-15.0) g/dL Hct (37.2-46.3) % MCH (27.0-32.0) pg MCHC (32.0-37.0) g/dL RDW (11.5-14.5) % Plt Count (140-440) X 10*3/uL Neutrophils # (Manual) (1.80-7.70) X 10*3/uL Monocytes # (Manual) (0.20-1.00) X 10*3/uL Eosinophils # (Manual) (0.04-0.35) X 10*3/uL Basophils # (Manual) (0.00-0.10) X 10*3/uL NRBC/100 WBC Diff (0.00-0.01) X 10*3/uL Microcytosis (manual) (None Seen) ESR (0-30) mm/Hr Retic Count (0.10-1.80) % Anion Gap (4.00-12.00) mmol/L Glucose (70-110) mg/dL POC Glucose (mg/dL) 153 H (70-110) mg/dL Calcium (8.7-10.3) mg/dL Ferritin (10.0-291.0) ng/mL AST (13-35) U/L Alkaline Phosphatase (41-126) U/L C-Reactive Protein 2.20 H (0.00-0.80) mg/dL Total Protein (6.2-8.2) g/dL Total Protein (PEP) (6.2-8.2) g/dL Albumin (3.8-4.9) g/dL Albumin/Globulin Ratio (1.60-3.17) Ratio CA 15-3 Antigen (0.0-32.3) U/mL CA 27-29 285.0 H (<38.6) U/mL 08/20/24 08/20/24 08/21/24 Range/Units 17:15 20:43 03:25 WBC 3.07 L (4.50-10.00) X 10*3/uL RBC 2.69 L (4.10-5.20) X 10*6/uL Hgb 7.1 L (12.0-15.0) g/dL Hct 22.7 L (37.2-46.3) % MCH 26.4 L (27.0-32.0) pg MCHC 31.3 L (32.0-37.0) g/dL RDW 17.3 H (11.5-14.5) % Plt Count 63 L (140-440) X 10*3/uL Neutrophils # (Manual) 1.54 L (1.80-7.70) X 10*3/uL Monocytes # (Manual) 0.18 L (0.20-1.00) X 10*3/uL Eosinophils # (Manual) 0.03 L (0.04-0.35) X 10*3/uL Basophils # (Manual) 0.12 H (0.00-0.10) X 10*3/uL NRBC/100 WBC Diff 0.32 H (0.00-0.01) X 10*3/uL Microcytosis (manual) 2+ A (None Seen) ESR (0-30) mm/Hr Retic Count (0.10-1.80) % Anion Gap (4.00-12.00) mmol/L Glucose (70-110) mg/dL POC Glucose (mg/dL) 218 H 254 H (70-110) mg/dL Calcium (8.7-10.3) mg/dL Ferritin (10.0-291.0) ng/mL AST (13-35) U/L Alkaline Phosphatase (41-126) U/L C-Reactive Protein (0.00-0.80) mg/dL Total Protein (6.2-8.2) g/dL Total Protein (PEP) (6.2-8.2) g/dL Albumin (3.8-4.9) g/dL Albumin/Globulin Ratio (1.60-3.17) Ratio CA 15-3 Antigen (0.0-32.3) U/mL CA 27-29 (<38.6) U/mL 08/21/24 08/21/24 Range/Units 03:25 07:33 WBC (4.50-10.00) X 10*3/uL RBC (4.10-5.20) X 10*6/uL Hgb (12.0-15.0) g/dL Hct (37.2-46.3) % MCH (27.0-32.0) pg MCHC (32.0-37.0) g/dL RDW (11.5-14.5) % Plt Count (140-440) X 10*3/uL Neutrophils # (Manual) (1.80-7.70) X 10*3/uL Monocytes # (Manual) (0.20-1.00) X 10*3/uL Eosinophils # (Manual) (0.04-0.35) X 10*3/uL Basophils # (Manual) (0.00-0.10) X 10*3/uL NRBC/100 WBC Diff (0.00-0.01) X 10*3/uL Microcytosis (manual) (None Seen) ESR (0-30) mm/Hr Retic Count (0.10-1.80) % Anion Gap 12.10 H (4.00-12.00) mmol/L Glucose 120 H (70-110) mg/dL POC Glucose (mg/dL) 123 H (70-110) mg/dL Calcium 8.6 L (8.7-10.3) mg/dL Ferritin (10.0-291.0) ng/mL AST 39 H (13-35) U/L Alkaline Phosphatase 755 H (41-126) U/L C-Reactive Protein (0.00-0.80) mg/dL Total Protein 5.5 L (6.2-8.2) g/dL Total Protein (PEP) (6.2-8.2) g/dL Albumin 3.1 L (3.8-4.9) g/dL Albumin/Globulin Ratio 1.29 L (1.60-3.17) Ratio CA 15-3 Antigen (0.0-32.3) U/mL CA 27-29 (<38.6) U/mL Assessment and Plan Assessment: - Severe right knee pain. CT of the knee showing both sclerosis and lucency around both the distal femoral and proximal tibial bones. Nondisplaced periprosthetic tibial fracture. - Elevated D-dimer with CT of the chest showing diffuse osteosclerosis of the [place] structures suspicious for diffuse metastatic disease She has mediastinal and hilar lymphadenopathy with pulmonary nodules up to 1 cm while lymph node enlargement was up to 1.8 cm with differential diagnosis including s sarcoidosis, bronchiectasis or metastatic disease - History of breast cancer [address] of the chest showing right mastectomy with breast bed showing either reconstructive prostheses or implants versus seroma - CT of the abdomen today showing extensive osseous metastatic disease, also there is subacute fracture of the left rib 11. Incomplete osseous fusion at the fracture site. Nodular density of the liver correlate for cirrhosis - New onset pancytopenia with splenomegaly - Diabetes mellitus, uncontrolled with history of elevated hemoglobin A1c and hyperglycemia, repeat hemoglobin A1c is pending - hypertension - hyperlipidemia - Obesity with BMI of 40.8 - Chronic low back pain on morphine twice daily at home - Noncompliance with follow-up Plan: Orthopedic team already evaluated the patient, they signed off the case and they recommended patient follow-up with oncologist orthopedic service at [facility] as an outpatient basis Hematology/oncology team consulted, patient was started on anastrozole, further workup for pancytopenia, bone and bone scan which is pending Anemia workup Transfuse if hemoglobin less than 7 Follow-up bone scan We will check vitamin B12 and TSH Continue with IV hydration Pain management consult Will do anemia workup, will check iron studies, B12, folate, occult blood in the stool Continue with her insulin and both Levemir and insulin sliding scale Labs and medication were reviewed.. Continue same treatment. Continue with symptomatic treatment. Resume home medication. Monitor labs and vitals. DVT and GI prophylaxis. Further recommendations as per clinical course of the patient DVT prophylaxis: Discontinue subcutaneous heparin, continue with mechanical GI Prophylaxis: Protonix PT/OT: Pending Prognosis is guarded
[2024-08-21 12:24] LABS: Glucose,Whole Blood 153 mg/dL (70-110)
[2024-08-21] MEDS: LORazepam 2 MG/ML INJ IV STA (12:40)
--- NOTE | 2024-08-21 13:06 | P.GSCN ---
History of Present Illness Consult date: 08/21/24 History of present illness: CHIEF COMPLAINT: Leg pain Reason for consult: possible right breast seroma HISTORY OF PRESENT ILLNESS: This is a 69-year-old female who presented to the hospital with complaints of right leg pain. Patient seen by orthopedic service and they are recommending she follows up with orthopedic oncologist. Patient has a known history of breast cancer in 2021 status post a right mastectomy with Dr. Rosas Vale. She is followed by oncology service. She had a CTA of the chest that reported status post right mastectomy. There is either a christiano nstruction prosthesis versus a large postoperative seroma at the mastectomy site. Patient denies any pain at that surgical site. She denies any redness, swelling or drainage at that surgical site. Patient did complete radiation treatment. She has been afebrile. Her main complaint is her right knee pain. PAST MEDICAL HISTORY: See below PAST SURGICAL HISTORY: See below MEDICATIONS: See below ALLERGIES: See below SOCIAL HISTORY: No illicit drug use. REVIEW OF SYSTEMS: CONSTITUTIONAL: Denies fever or chills. HEENT: Denies blurred vision, vision changes, or eye pain. Denies hemoptysis CARDIOVASCULAR: Denies chest pain or pressure. RESPIRATORY: No shortness of breath. GASTROINTESTINAL: See HPI for pertinent findings HEMATOLOGIC: Denies bleeding disorders. GENITOURINARY: Denies any blood in urine or increased urinary frequency. SKIN: Denies pruitis. Denies rash. PHYSICAL EXAM: VITAL SIGNS: Reviewed GENERAL: Well-developed in no acute distress. Chest: Right mastectomy surgical scar is healed. There is no erythema. No drainage. Nontender. No swelling. The tissue is soft. There may be some fluctuance noted. ABDOMEN: Soft. Nondistended. Nontender NEUROLOGIC: Alert and oriented. Cranial nerves II through XII grossly intact. LABORATORY DATA: WBC 3.07 Hgb 7.1 platelets 63 Sodium 136 potassium 4.3 creatinine 0.8 IMAGING: CT scan abdomen pelvis diffuse osseous metastatic disease. No greater than 1.0 cm short axis lymph nodes suggest intra-abdominal metastatic disease. Subacute fracture of the left rib 11. Nodular contour liver correlate for cirrhosis. Cholecystectomy changes. Chest CTA status post right mastectomy. There is either reconstruction prosthesis versus large postoperative seroma at the mastectomy site. Underlying pleural-parenchymal thickening likely related to postradiation therapy change. ASSESSMENT: 1. Breast cancer status post right mastectomy. CT scanning findings report possible reconstruction prosthesis versus a large postoperative seroma at mastectomy site. PLAN: -Further recommendations forthcoming per surgeon after CTA of chest is reviewed. Physician Register Of Deeds note has been reviewed by physician. Signing provider agrees with the documented findings, assessment, and plan of care. Past Medical History Past Medical History: Asthma, Cancer, COPD, Diabetes Mellitus, GERD/Reflux, Hyperlipidemia, Hypertension, Musculoskeletal Disorder Additional Past Medical History / Comment(s): Migraine headaches. Hx kidney stone. Chronic back pain, numbness and tingling bilateral lower extremities. Right Breast cancer History of Any Multi-Drug Resistant Organisms: None Reported, MRSA Year Discovered:: 2011 MDRO Source:: UNK Past Surgical History: Appendectomy, Back Surgery, Breast Surgery, Cholecystectomy, Joint Replacement, Orthopedic Surgery Additional Past Surgical History / Comment(s): Fusion w/ kane also back surgery 04/21/2019. Left Shoulder Replacement, Right knee replacement, plate in right wrist, left thumb joint repair, Right CTR, Right shoulder arthroscopy. micheal cataracts, LARYNGOSCOPY, November 2016 Cervical Plate, PAIN CLINIC PROCEDURES, right masectomy Past Anesthesia/Blood Transfusion Reactions: No Reported Reaction Past Psychological History: No Psychological Hx Reported Smoking Status: Former smoker Past Alcohol Use History: None Reported Additional Past Alcohol Use History / Comment(s): SMOKED 1PPD, STARTED SMOKING AGE 17, AND QUIT IN 1981. Past Drug Use History: None Reported - Past Family History Brother(s) Family Medical History: Cancer, Myocardial Infarction ([place]) Father Family Medical History: Cancer Additional Family Medical History / Comment(s): throat, colon, liver, and brain cancer. Mother Family Medical History: Myocardial Infarction ([place]) Additional Family Medical History / Comment(s): at 54 of [place]. Medications and Allergies Home Medications Medication Instructions Recorded Confirmed Type Butalb/Acetaminophen/Caffeine 1 tab PO BID PRN 04/11/14 08/18/24 History [Fioricet 50-325-40 mg Tablet] lisinopriL [Zestril] 40 mg PO DAILY 04/04/16 08/18/24 History Albuterol Sulfate [Albuterol 2 puff INHALATION RT-QID PRN 03/09/24 08/18/24 History Sulfate Hfa] Atorvastatin [Lipitor] 10 mg PO DAILY 03/09/24 08/18/24 History Insulin Glargine,Hum.rec.anlog 60 units SQ HS 03/09/24 08/18/24 History [Lantus Solostar Pen] Insulin Lispro [humaLOG Kwikpen] See Protocol SQ TID-W/MEALS 03/09/24 08/18/24 History Baclofen [Lioresal] 20 mg PO BID 08/18/24 08/18/24 History Budesonide-Formot 160-4.5 Mcg 2 puff INHALATION RT-BID PRN 08/18/24 08/18/24 History [Symbicort 160-4.5 Mcg Inhaler] HYDROcodone/APAP 10-325MG [[place] 1 tab PO BID 08/18/24 08/18/24 History 10-325] Morphine Sulfate ER [Ms Contin] 30 mg PO BID 08/18/24 08/18/24 History amLODIPine [Norvasc] 10 mg PO DAILY 08/18/24 08/18/24 History Allergies Allergy/AdvReac Type Severity Reaction Status Date / Time gabapentin AdvReac Confusion Verified 08/18/24 18:42 ibuprofen [From Motrin] AdvReac Abdominal Verified 08/18/24 18:42 Pain and vomiting pregabalin [From Lyrica] AdvReac Confusion Verified 08/18/24 18:42 Surgical - Exam Vital Signs Temp Pulse Resp BP Pulse Ox 97.8 F 99 20 174/97 98 08/18/24 13:06 08/18/24 13:06 08/18/24 13:06 08/18/24 13:06 08/18/24 13:06 Results - Labs 08/21/24 03:25 08/21/24 03:25 Abnormal Lab Results - Last 24 Hours (Table) 08/18/24 08/19/24 08/20/24 Range/Units 17:42 05:15 09:43 WBC (4.50-10.00) X 10*3/uL RBC (4.10-5.20) X 10*6/uL Hgb (12.0-15.0) g/dL Hct (37.2-46.3) % MCH (27.0-32.0) pg MCHC (32.0-37.0) g/dL RDW (11.5-14.5) % Plt Count (140-440) X 10*3/uL Neutrophils # (Manual) (1.80-7.70) X 10*3/uL Monocytes # (Manual) (0.20-1.00) X 10*3/uL Eosinophils # (Manual) (0.04-0.35) X 10*3/uL Basophils # (Manual) (0.00-0.10) X 10*3/uL NRBC/100 WBC Diff (0.00-0.01) X 10*3/uL Microcytosis (manual) (None Seen) ESR 48 H (0-30) mm/Hr Retic Count (0.10-1.80) % Anion Gap (4.00-12.00) mmol/L Glucose (70-110) mg/dL POC Glucose (mg/dL) (70-110) mg/dL Calcium (8.7-10.3) mg/dL Ferritin 1375.0 H (10.0-291.0) ng/mL AST (13-35) U/L Alkaline Phosphatase (41-126) U/L C-Reactive Protein (0.00-0.80) mg/dL Total Protein (6.2-8.2) g/dL Total Protein (PEP) (6.2-8.2) g/dL Albumin (3.8-4.9) g/dL Albumin/Globulin Ratio (1.60-3.17) Ratio CA 15-3 Antigen 178.0 H (0.0-32.3) U/mL CA 27-29 (<38.6) U/mL 08/20/24 08/20/24 08/20/24 Range/Units 09:49 09:49 09:49 WBC (4.50-10.00) X 10*3/uL RBC (4.10-5.20) X 10*6/uL Hgb (12.0-15.0) g/dL Hct (37.2-46.3) % MCH (27.0-32.0) pg MCHC (32.0-37.0) g/dL RDW (11.5-14.5) % Plt Count (140-440) X 10*3/uL Neutrophils # (Manual) (1.80-7.70) X 10*3/uL Monocytes # (Manual) (0.20-1.00) X 10*3/uL Eosinophils # (Manual) (0.04-0.35) X 10*3/uL Basophils # (Manual) (0.00-0.10) X 10*3/uL NRBC/100 WBC Diff (0.00-0.01) X 10*3/uL Microcytosis (manual) (None Seen) ESR 37 H (0-30) mm/Hr Retic Count 4.19 H (0.10-1.80) % Anion Gap (4.00-12.00) mmol/L Glucose (70-110) mg/dL POC Glucose (mg/dL) (70-110) mg/dL Calcium (8.7-10.3) mg/dL Ferritin (10.0-291.0) ng/mL AST (13-35) U/L Alkaline Phosphatase (41-126) U/L C-Reactive Protein (0.00-0.80) mg/dL Total Protein (6.2-8.2) g/dL Total Protein (PEP) 5.5 L (6.2-8.2) g/dL Albumin (3.8-4.9) g/dL Albumin/Globulin Ratio (1.60-3.17) Ratio CA 15-3 Antigen (0.0-32.3) U/mL CA 27-29 (<38.6) U/mL 08/20/24 08/20/24 08/20/24 Range/Units 09:49 10:00 12:26 WBC (4.50-10.00) X 10*3/uL RBC (4.10-5.20) X 10*6/uL Hgb (12.0-15.0) g/dL Hct (37.2-46.3) % MCH (27.0-32.0) pg MCHC (32.0-37.0) g/dL RDW (11.5-14.5) % Plt Count (140-440) X 10*3/uL Neutrophils # (Manual) (1.80-7.70) X 10*3/uL Monocytes # (Manual) (0.20-1.00) X 10*3/uL Eosinophils # (Manual) (0.04-0.35) X 10*3/uL Basophils # (Manual) (0.00-0.10) X 10*3/uL NRBC/100 WBC Diff (0.00-0.01) X 10*3/uL Microcytosis (manual) (None Seen) ESR (0-30) mm/Hr Retic Count (0.10-1.80) % Anion Gap (4.00-12.00) mmol/L Glucose (70-110) mg/dL POC Glucose (mg/dL) 153 H (70-110) mg/dL Calcium (8.7-10.3) mg/dL Ferritin (10.0-291.0) ng/mL AST (13-35) U/L Alkaline Phosphatase (41-126) U/L C-Reactive Protein 2.20 H (0.00-0.80) mg/dL Total Protein (6.2-8.2) g/dL Total Protein (PEP) (6.2-8.2) g/dL Albumin (3.8-4.9) g/dL Albumin/Globulin Ratio (1.60-3.17) Ratio CA 15-3 Antigen (0.0-32.3) U/mL CA 27-29 285.0 H (<38.6) U/mL 08/20/24 08/20/24 08/21/24 Range/Units 17:15 20:43 03:25 WBC 3.07 L (4.50-10.00) X 10*3/uL RBC 2.69 L (4.10-5.20) X 10*6/uL Hgb 7.1 L (12.0-15.0) g/dL Hct 22.7 L (37.2-46.3) % MCH 26.4 L (27.0-32.0) pg MCHC 31.3 L (32.0-37.0) g/dL RDW 17.3 H (11.5-14.5) % Plt Count 63 L (140-440) X 10*3/uL Neutrophils # (Manual) 1.54 L (1.80-7.70) X 10*3/uL Monocytes # (Manual) 0.18 L (0.20-1.00) X 10*3/uL Eosinophils # (Manual) 0.03 L (0.04-0.35) X 10*3/uL Basophils # (Manual) 0.12 H (0.00-0.10) X 10*3/uL NRBC/100 WBC Diff 0.32 H (0.00-0.01) X 10*3/uL Microcytosis (manual) 2+ A (None Seen) ESR (0-30) mm/Hr Retic Count (0.10-1.80) % Anion Gap (4.00-12.00) mmol/L Glucose (70-110) mg/dL POC Glucose (mg/dL) 218 H 254 H (70-110) mg/dL Calcium (8.7-10.3) mg/dL Ferritin (10.0-291.0) ng/mL AST (13-35) U/L Alkaline Phosphatase (41-126) U/L C-Reactive Protein (0.00-0.80) mg/dL Total Protein (6.2-8.2) g/dL Total Protein (PEP) (6.2-8.2) g/dL Albumin (3.8-4.9) g/dL Albumin/Globulin Ratio (1.60-3.17) Ratio CA 15-3 Antigen (0.0-32.3) U/mL CA 27-29 (<38.6) U/mL 08/21/24 08/21/24 Range/Units 03:25 07:33 WBC (4.50-10.00) X 10*3/uL RBC (4.10-5.20) X 10*6/uL Hgb (12.0-15.0) g/dL Hct (37.2-46.3) % MCH (27.0-32.0) pg MCHC (32.0-37.0) g/dL RDW (11.5-14.5) % Plt Count (140-440) X 10*3/uL Neutrophils # (Manual) (1.80-7.70) X 10*3/uL Monocytes # (Manual) (0.20-1.00) X 10*3/uL Eosinophils # (Manual) (0.04-0.35) X 10*3/uL Basophils # (Manual) (0.00-0.10) X 10*3/uL NRBC/100 WBC Diff (0.00-0.01) X 10*3/uL Microcytosis (manual) (None Seen) ESR (0-30) mm/Hr Retic Count (0.10-1.80) % Anion Gap 12.10 H (4.00-12.00) mmol/L Glucose 120 H (70-110) mg/dL POC Glucose (mg/dL) 123 H (70-110) mg/dL Calcium 8.6 L (8.7-10.3) mg/dL Ferritin (10.0-291.0) ng/mL AST 39 H (13-35) U/L Alkaline Phosphatase 755 H (41-126) U/L C-Reactive Protein (0.00-0.80) mg/dL Total Protein 5.5 L (6.2-8.2) g/dL Total Protein (PEP) (6.2-8.2) g/dL Albumin 3.1 L (3.8-4.9) g/dL Albumin/Globulin Ratio 1.29 L (1.60-3.17) Ratio CA 15-3 Antigen (0.0-32.3) U/mL CA 27-29 (<38.6) U/mL Diabetes panel 08/21/24 Range/Units 03:25 Sodium 136 (135-145) mmol/L Potassium 4.3 (3.5-5.5) mmol/L Chloride 100 (96-109) mmol/L Carbon Dioxide 23.9 (21.6-31.8) mmol/L BUN 13.8 (9.0-27.0) mg/dL Creatinine 0.8 (0.6-1.5) mg/dL Glucose 120 H (70-110) mg/dL Calcium 8.6 L (8.7-10.3) mg/dL AST 39 H (13-35) U/L ALT 13 (8-44) U/L Alkaline Phosphatase 755 H (41-126) U/L Total Protein 5.5 L (6.2-8.2) g/dL Albumin 3.1 L (3.8-4.9) g/dL Thyroid panel 08/21/24 Range/Units 03:25 TSH 5.320 (0.350-5.500) UIU/ML Calcium panel 08/21/24 Range/Units 03:25 Calcium 8.6 L (8.7-10.3) mg/dL Albumin 3.1 L (3.8-4.9) g/dL Pituitary panel 08/21/24 Range/Units 03:25 Sodium 136 (135-145) mmol/L Potassium 4.3 (3.5-5.5) mmol/L Chloride 100 (96-109) mmol/L Carbon Dioxide 23.9 (21.6-31.8) mmol/L BUN 13.8 (9.0-27.0) mg/dL Creatinine 0.8 (0.6-1.5) mg/dL Glucose 120 H (70-110) mg/dL Calcium 8.6 L (8.7-10.3) mg/dL TSH 5.320 (0.350-5.500) UIU/ML Adrenal panel 08/21/24 Range/Units 03:25 Sodium 136 (135-145) mmol/L Potassium 4.3 (3.5-5.5) mmol/L Chloride 100 (96-109) mmol/L Carbon Dioxide 23.9 (21.6-31.8) mmol/L BUN 13.8 (9.0-27.0) mg/dL Creatinine 0.8 (0.6-1.5) mg/dL Glucose 120 H (70-110) mg/dL Calcium 8.6 L (8.7-10.3) mg/dL Total Bilirubin 0.5 (0.3-1.2) mg/dL AST 39 H (13-35) U/L ALT 13 (8-44) U/L Alkaline Phosphatase 755 H (41-126) U/L Total Protein 5.5 L (6.2-8.2) g/dL Albumin 3.1 L (3.8-4.9) g/dL
[2024-08-21 14:21] LABS: Free Kappa Lt Chain Qnt, Serum 6.48 mg/dL (0.33-1.94); Free Lambda Lt Chain Qnt, Seru 4.39 mg/dL (0.57-2.63)
--- NOTE | 2024-08-21 14:21 | NM ---
INDICATION: Patient age:Female; 69 years old; Reason for study: abn bone findings on CTA chest, Hx breast cancer; [facility]. COMPARISON: CT abdomen and pelvis 08/20/2024, CTA chest 08/18/2024. TECHNIQUE: Intravenous administration of 26.3 mCi of Technetium 99m-hydroxydiphosphonate followed by multiple scintigraphic images of the appendicular and axial skeleton. FINDINGS: Uptake identified throughout the axial skeleton and appendicular skeleton. This is most prominent wit hin the sternum pelvis and spine. There is increased uptake within the bilateral shoulder, sternoclavicular, and sacroiliac joints con sistent with degenerative changes. Photopenic area within the right knee an left shoulder due to arth roplasty change. No other photopenic areas or areas of increased activity are identified. Physiologic radiotracer activity is demonstrated in bladder. IMPRESSION: Diffuse uptake identified within the axial and appendicular skeleton corresponding to CT findings. Ra ises concern for metastasis versus other etiologies. [facility], , 08/21/2024 2:19 PM
[2024-08-21 17:13] LABS: Glucose,Whole Blood 225 mg/dL (70-110)
[2024-08-21] MEDS: INSULIN ASPART (NovoLOG) 100 UNIT/ML VIAL SQ SCH (17:55)
--- NOTE | 2024-08-21 18:47 | P.PN ---
Subjective Progress Note Date: 08/21/24 No acute events. Reporting persisting pain in right knee but pain meds are helping manage her pain. Today, WBC 3.0, ANC 1.54, hgb 7.1, plt 63,000 Objective - Vital Signs Vital signs: Vital Signs Temp 98.7 F 08/21/24 12:07 Pulse 69 08/21/24 12:07 Resp 16 08/21/24 12:07 BP 128/77 08/21/24 12:07 Pulse Ox 96 08/21/24 12:07 FiO2 Intake & Output 08/20/24 08/21/24 08/21/24 18:59 06:59 18:59 Intake Total 1989 1050 Output Total 700 Balance 1989 350 Intake: Intake, IV Titration 750 Amount Sodium Chloride 0.9% 1, 750 000 ml @ 75 mls/hr IV . [id number] JOCELYNE Rx#:[id number] Oral 1240 1050 Output: Urine 700 Other: Voiding Method Bedside Commode # Voids 3 - Constitutional General appearance: Present: no acute distress - EENT Eyes: Present: anicteric sclerae, EOMI ENT: Present: hearing grossly normal - Respiratory Details: breathing is even and unlabored - Cardiovascular Details: skin warm and dry - Integumentary Integumentary: Present: pale. Absent: cyanotic - Psychiatric Psychiatric: Present: A&O x's 3 - Labs CBC & Chem 7: 08/21/24 03:25 08/21/24 03:25 Labs: Abnormal Lab Results - Last 24 Hours (Table) 08/20/24 08/20/24 08/20/24 Range/Units 09:43 09:49 09:49 WBC (4.50-10.00) X 10*3/uL RBC (4.10-5.20) X 10*6/uL Hgb (12.0-15.0) g/dL Hct (37.2-46.3) % MCH (27.0-32.0) pg MCHC (32.0-37.0) g/dL RDW (11.5-14.5) % Plt Count (140-440) X 10*3/uL Neutrophils # (Manual) (1.80-7.70) X 10*3/uL Monocytes # (Manual) (0.20-1.00) X 10*3/uL Eosinophils # (Manual) (0.04-0.35) X 10*3/uL Basophils # (Manual) (0.00-0.10) X 10*3/uL NRBC/100 WBC Diff (0.00-0.01) X 10*3/uL Microcytosis (manual) (None Seen) ESR (0-30) mm/Hr Retic Count 4.19 H (0.10-1.80) % Anion Gap (4.00-12.00) mmol/L Glucose (70-110) mg/dL POC Glucose (mg/dL) (70-110) mg/dL Calcium (8.7-10.3) mg/dL AST (13-35) U/L Alkaline Phosphatase (41-126) U/L C-Reactive Protein (0.00-0.80) mg/dL Total Protein (6.2-8.2) g/dL Total Protein (PEP) 5.5 L (6.2-8.2) g/dL Albumin (3.8-4.9) g/dL Albumin/Globulin Ratio (1.60-3.17) Ratio CA 15-3 Antigen 178.0 H (0.0-32.3) U/mL CA 27-29 (<38.6) U/mL Free [place] LC, Quant 6.48 H (0.33-1.94) mg/dL Free Lambda LC, Quant 4.39 H (0.57-2.63) mg/dL 08/20/24 08/20/24 08/20/24 Range/Units 09:49 09:49 10:00 WBC (4.50-10.00) X 10*3/uL RBC (4.10-5.20) X 10*6/uL Hgb (12.0-15.0) g/dL Hct (37.2-46.3) % MCH (27.0-32.0) pg MCHC (32.0-37.0) g/dL RDW (11.5-14.5) % Plt Count (140-440) X 10*3/uL Neutrophils # (Manual) (1.80-7.70) X 10*3/uL Monocytes # (Manual) (0.20-1.00) X 10*3/uL Eosinophils # (Manual) (0.04-0.35) X 10*3/uL Basophils # (Manual) (0.00-0.10) X 10*3/uL NRBC/100 WBC Diff (0.00-0.01) X 10*3/uL Microcytosis (manual) (None Seen) ESR 37 H (0-30) mm/Hr Retic Count (0.10-1.80) % Anion Gap (4.00-12.00) mmol/L Glucose (70-110) mg/dL POC Glucose (mg/dL) (70-110) mg/dL Calcium (8.7-10.3) mg/dL AST (13-35) U/L Alkaline Phosphatase (41-126) U/L C-Reactive Protein 2.20 H (0.00-0.80) mg/dL Total Protein (6.2-8.2) g/dL Total Protein (PEP) (6.2-8.2) g/dL Albumin (3.8-4.9) g/dL Albumin/Globulin Ratio (1.60-3.17) Ratio CA 15-3 Antigen (0.0-32.3) U/mL CA 27-29 285.0 H (<38.6) U/mL Free [place] LC, Quant (0.33-1.94) mg/dL Free Lambda LC, Quant (0.57-2.63) mg/dL 08/20/24 08/20/24 08/21/24 Range/Units 17:15 20:43 03:25 WBC 3.07 L (4.50-10.00) X 10*3/uL RBC 2.69 L (4.10-5.20) X 10*6/uL Hgb 7.1 L (12.0-15.0) g/dL Hct 22.7 L (37.2-46.3) % MCH 26.4 L (27.0-32.0) pg MCHC 31.3 L (32.0-37.0) g/dL RDW 17.3 H (11.5-14.5) % Plt Count 63 L (140-440) X 10*3/uL Neutrophils # (Manual) 1.54 L (1.80-7.70) X 10*3/uL Monocytes # (Manual) 0.18 L (0.20-1.00) X 10*3/uL Eosinophils # (Manual) 0.03 L (0.04-0.35) X 10*3/uL Basophils # (Manual) 0.12 H (0.00-0.10) X 10*3/uL NRBC/100 WBC Diff 0.32 H (0.00-0.01) X 10*3/uL Microcytosis (manual) 2+ A (None Seen) ESR (0-30) mm/Hr Retic Count (0.10-1.80) % Anion Gap (4.00-12.00) mmol/L Glucose (70-110) mg/dL POC Glucose (mg/dL) 218 H 254 H (70-110) mg/dL Calcium (8.7-10.3) mg/dL AST (13-35) U/L Alkaline Phosphatase (41-126) U/L C-Reactive Protein (0.00-0.80) mg/dL Total Protein (6.2-8.2) g/dL Total Protein (PEP) (6.2-8.2) g/dL Albumin (3.8-4.9) g/dL Albumin/Globulin Ratio (1.60-3.17) Ratio CA 15-3 Antigen (0.0-32.3) U/mL CA 27-29 (<38.6) U/mL Free [place] LC, Quant (0.33-1.94) mg/dL Free Lambda LC, Quant (0.57-2.63) mg/dL 08/21/24 08/21/24 08/21/24 Range/Units 03:25 07:33 12:09 WBC (4.50-10.00) X 10*3/uL RBC (4.10-5.20) X 10*6/uL Hgb (12.0-15.0) g/dL Hct (37.2-46.3) % MCH (27.0-32.0) pg MCHC (32.0-37.0) g/dL RDW (11.5-14.5) % Plt Count (140-440) X 10*3/uL Neutrophils # (Manual) (1.80-7.70) X 10*3/uL Monocytes # (Manual) (0.20-1.00) X 10*3/uL Eosinophils # (Manual) (0.04-0.35) X 10*3/uL Basophils # (Manual) (0.00-0.10) X 10*3/uL NRBC/100 WBC Diff (0.00-0.01) X 10*3/uL Microcytosis (manual) (None Seen) ESR (0-30) mm/Hr Retic Count (0.10-1.80) % Anion Gap 12.10 H (4.00-12.00) mmol/L Glucose 120 H (70-110) mg/dL POC Glucose (mg/dL) 123 H 153 H (70-110) mg/dL Calcium 8.6 L (8.7-10.3) mg/dL AST 39 H (13-35) U/L Alkaline Phosphatase 755 H (41-126) U/L C-Reactive Protein (0.00-0.80) mg/dL Total Protein 5.5 L (6.2-8.2) g/dL Total Protein (PEP) (6.2-8.2) g/dL Albumin 3.1 L (3.8-4.9) g/dL Albumin/Globulin Ratio 1.29 L (1.60-3.17) Ratio CA 15-3 Antigen (0.0-32.3) U/mL CA 27-29 (<38.6) U/mL Free [place] LC, Quant (0.33-1.94) mg/dL Free Lambda LC, Quant (0.57-2.63) mg/dL - Imaging and Cardiology CT scan - abdomen: report reviewed CT scan - chest: report reviewed CT scan - pelvis: report reviewed Assessment and Plan (1) Pancytopenia Current Visit: Yes Status: Acute Priority: High Code(s): D61.818 - OTHER PANCYTOPENIA SNOMED Code(s): 865524415 (2) Right knee pain Current Visit: Yes Status: Acute Priority: High Code(s): M25.561 - PAIN IN RIGHT KNEE SNOMED Code(s): 3266147697 (3) Breast cancer Current Visit: Yes Status: Acute Priority: High Code(s): C50.919 - MALIGNANT NEOPLASM OF UNSP SITE OF UNSPECIFIED FEMALE BREAST SNOMED Code(s): 697028444 (4) Chronic pain Current Visit: Yes Status: Acute Priority: Medium Code(s): G89.29 - OTHER CHRONIC PAIN SNOMED Code(s): 25479126 Plan: Rt knee pain -Been worsening since February. Patient had a nuclear medicine bone scan 03/12/2024, the impression reports right knee tibial metaphysis greater than left knee and given the history, infection felt more so than loosening of the hardware. -CT right knee showing anterior tibial fracture -Orthopedics following, due to blood counts, no surgical intervention planned at this time Chronic back pain -Pt has chronic back pain, follows with pain mgmt. She reports that her medications have not been sent in to her pharmacy -Pain management consulted Hx ER/WY positive, HER2 neg breast cancer, diagnosed 2019 -Patient had surgery, Oncotype score was 21, unclear if any significant benefit from receiving adjuvant chemotherapy so, pt was recommended radiation and AI. Patient completed radiation therapy. She has taken AI periodically over the last 4 years. -CT chest showing 10.7 x 8.4 cm possible postmasectomy seroma, diffuse osteosclerosis throughout bony structures, mild paravetebral soft tissue thickening at the T9 level, and mediastinal and hilar nodes measuring up to 1.8cm and couple pulm nodules measuring up to 1cm. On exam nothing abnormal felt on the right chest wall, no skin changes noted to right breast and no LAD bilateral axilla. -Tumor markers are elevated, but at this level they are non-specific -NM bone scan showing diffuse uptake identified within the axial and appendicular skeleton. -CT abdomen pelvis with contrast revealed diffuse osseous metastatic disease. No greater than 1 cm lymph nodes noted to suggest intra-abdominal metastatic disease. Subacute fracture of the left 11th rib. Nodular contour to liver, possible cirrhosis. General surgery has been consulted for right breast findings noted on CTA chest. Will discuss case with them, if surgeon feels findings are suspicious for possible malignancy will obtain breast core biopsy. If not we will place pulmonology consult for evaluation for bronch/biopsy Above findings and plan discussed with patient, she was agreeable to the same Pancytopenia -New onset. CBC in Sept was normal -Pancytopenia workup ordered. As of note, patient did NOT receive any chemotherapy. DDx include primary bone marrow disorder, metastatic breast cancer infiltrating the bone marrow, chronic inflammation, infection. -Pancytopenia work up ordered -Iron studies consistent with anemia of inflammation. No Vit B12 or folate def. noted. RF/HANNAH negative. ESR elevated at 48. Paraproteinemia labs still pending. Further recs pending completion of workup -Transfuse for hemoglobin less than 7 or if symptomatic. Transfuse for platelets less than 10,000 or if patient is symptomatic. WBC/ANC not normal but adequate at this time
[2024-08-21] MEDS: PANTOPRAZOLE 40 MG/10 ML VIAL IVP SCH (20:01)
[2024-08-21 20:19] LABS: Glucose,Whole Blood 171 mg/dL (70-110)
[2024-08-21] MEDS: INSULIN DETEMIR (LEVEMIR) 100 UNIT/ML SYR SQ SCH (20:32)
[2024-08-22 07:14] LABS: Glucose,Whole Blood 104 mg/dL (70-110)
[2024-08-22 09:57] LABS: HCT 21.6 % (37.2-46.3); Immature Platelet Fraction 4.3 % (1.1-6.1); MCH 26.3 pg (27.0-32.0); MCHC 31.5 g/dL (32.0-37.0); MCV 83.4 FL (80.0-97.0); Mean Platelet Volume 11.1 FL (9.5-12.2); Platelet Count 54 X 10*3/uL (140-440); RBC 2.59 X 10*6/uL (4.10-5.20); RDW 17.5 % (11.5-14.5); WBC 2.93 X 10*3/uL (4.50-10.00)
[2024-08-22 11:17] LABS: HGB 6.8 g/dL (12.0-15.0)
[2024-08-22 11:18] LABS: Basophils # (M) 0.06 X 10*3/uL (0.00-0.10); Eosinophils # (M) 0.09 X 10*3/uL (0.04-0.35); Lymphocytes # (M) 0.91 X 10*3/uL (0.90-5.00); Metamyelocytes % 2 % (0-0); Microcytosis (M) 2+ (None Seen); Monocytes # (M) 0.09 X 10*3/uL (0.20-1.00); Myelocytes % 5 % (0-0); Neutrophils # (M) 1.58 X 10*3/uL (1.80-7.70); Neutrophils % (M) 54 %; Nucleated Red Blood Cells 14 /100 WBCS
--- NOTE | 2024-08-22 12:25 | P.CON ---
Consult Note - . Consult date: 08/22/24 Assessment/Plan:: Mrs. Valentino is a female patient who had an abnormal right breast screening mammogram in Dec, 2021. At that time she had right nipple retraction, present for a few months. She had right mastectomy and sentinel nodes biopsy, final pathology revealed grade 2, IDC, 3 cm, 1/ node was positive for micromets. She did complete radiation. Pt currently admitted for pain in the rt knee, progressive recently, persistent since February, she is following with Orthopedics. She fell in Jun and since then her pain has worsened. She had a CT Chest performed which showed a large seroma at her previous mastectomy site with no suspicious masses noted. ROS Statement: Those systems with pertinent positive or pertinent negative responses have been documented in the HPI. Past Medical History Past Medical History: Asthma, Cancer, COPD, Diabetes Mellitus, GERD/Reflux, Hyperlipidemia, Hypertension, Musculoskeletal Disorder Additional Past Medical History / Comment(s): Migraine headaches. Hx kidney stone. Chronic back pain, numbness and tingling bilateral lower extremities. Right Breast cancer History of Any Multi-Drug Resistant Organisms: None Reported, MRSA Date of last positivie culture/infection: 2011 MDRO Source:: UNK Past Surgical History: Appendectomy, Back Surgery, Breast Surgery, Cholecystectomy, Joint Replacement, Orthopedic Surgery Additional Past Surgical History / Comment(s): Fusion w/ kane also back surgery 04/21/2019. Left Shoulder Replacement, Right knee replacement, plate in right wrist, left thumb joint repair, Right CTR, Right shoulder arthroscopy. micheal cataracts, LARYNGOSCOPY, November 2016 Cervical Plate, PAIN CLINIC PROCEDURES, right masectomy Past Anesthesia/Blood Transfusion Reactions: No Reported Reaction Past Psychological History: No Psychological Hx Reported Smoking Status: Former smoker Past Alcohol Use History: None Reported Past Drug Use History: None Reported - Past Family History Brother(s) Family Medical History: Cancer, Myocardial Infarction ([place]) Father Family Medical History: Cancer Additional Family Medical History / Comment(s): throat, colon, liver, and brain cancer. Mother Family Medical History: Myocardial Infarction ([place]) Additional Family Medical History / Comment(s): at 54 of [place]. General Exam General appearance: alert, in no apparent distress Head exam: Present: atraumatic, normocephalic, normal inspection Eye exam: Present: normal appearance, PERRL, EOMI. Absent: scleral icterus, conjunctival injection, periorbital swelling ENT exam: Present: normal exam, mucous membranes moist Neck exam: Present: normal inspection. Absent: tenderness, meningismus, lymphadenopathy Respiratory exam: Present: normal lung sounds bilaterally. Absent: respiratory distress, wheezes, rales, rhonchi, stridor Cardiovascular Exam: Present: regular rate, normal rhythm, normal heart sounds. Absent: systolic murmur, diastolic murmur, rubs, gallop, clicks GI/Abdominal exam: Present: soft, normal bowel sounds. Absent: distended, tenderness, guarding, rebound, rigid Extremities exam: Present: normal inspection, full ROM, normal capillary refill. Absent: tenderness, pedal edema, joint swelling, calf tenderness Back exam: Present: normal inspection Neurological exam: Present: alert, oriented X3, CN II-XII intact Psychiatric exam: Present: normal affect, normal mood Skin exam: Present: warm, dry, intact, normal color. Absent: rash 69 year old female with history of Mastectomy for Breast Cancer. CT Thorax performed which showed a large seroma at previous mastectomy site -No role for breast biopsy based on imaging. Discussed at length with Momo from Oncology -I did recommend a Bronch by Pulmonology and possible LN Biopsy -Ortho recs regarding knee pain -No acute surgical intervention planned Surendra Mason DO [facility] [phone]
[2024-08-22 12:37] LABS: Glucose,Whole Blood 144 mg/dL (70-110)
--- NOTE | 2024-08-22 13:25 | P.CNPUL ---
History of Present Illness Consult date: 08/22/24 Requesting physician: Momo Mckeon Reason for consult: abnormal CXR/CT Chief complaint: Right knee pain History of present illness: This is a 69-year-old female patient with a known history of diabetes mellitus, hypertension, hyperlipidemia, obstructive pulmonary disease, former smoker. She also has a history of breast cancer status post right mastectomy. She presented here back on 08/18/2024 with concern with right knee pain. CT scan of the knee did reveal changes possibly sequela of chronic infection or underlying osseous metastatic disease. Metastatic disease. No greater than 1.0 cm lymph nodes suggest intra-abdominal metastatic disease. Subacute fracture of left rib 11. CT scan of the chest reveals new diffuse ostial sclerotic throughout the bony structures. Correlate for diffuse osseous metastatic disease. No large central or lobar branch embolus. Mediastinal and hilar lymph nodes measuring up to 1.8 cm in a couple pulmonary nodules measuring up to 1 cm. She is seen today August 22, 2024 in consultation based on the CT angiogram findings with mediastinal lymph nodes. Currently awake and alert and resting fairly comfortable in bed. She is still complaining of a lot of right knee pain. She denies any shortness of breath, cough or congestion. No hemoptysis. Maintaining good O2 saturations in the 90s on room air. She is afebrile. Hemodynamically stable. White count 2.9. Hemoglobin 6.8. Platelets 54,000. Odium 136. Potassium 4.3. Bicarb 24. BUN 14. Creatinine 0.8. Is continued on her albuterol and Symbicort. Receiving Dilaudid and morphine for pain control. Normal saline at 75 cc/h. Review of Systems REVIEW OF SYSTEMS: CONSTITUTIONAL: Denies any recent significant weight loss or weight gain. EYES: Denies change in vision. EARS, NOSE, MOUTH, THROAT: Denies headaches, denies sore throat. CARDIOVASCULAR: Denies chest pain, palpitations or syncopal episodes. RESPIRATORY: Denies shortness of breath, cough, congestion or hemoptysis. GASTROINTESTINAL: Denies change in appetite, denies abdominal pain GENITOURINARY: Denies hematuria, denies infections. MUSKULOSKELETAL: Positive for right knee pain. INTEGUMENTARY: Denies rash, denies eczema. NEUROLOGICAL: Denies recent memory loss, no recent seizure activity. PSYCHIATRIC: Denies anxiety, denies depression. HEMATOLOGIC/LYMPHATIC: Denies anemia, denies enlarged lymph nodes. Past Medical History Past Medical History: Asthma, Cancer, COPD, Diabetes Mellitus, GERD/Reflux, Hyperlipidemia, Hypertension, Musculoskeletal Disorder Additional Past Medical History / Comment(s): Migraine headaches. Hx kidney stone. Chronic back pain, numbness and tingling bilateral lower extremities. Right Breast cancer History of Any Multi-Drug Resistant Organisms: None Reported, MRSA Date of last positivie culture/infection: 2011 MDRO Source:: UNK Past Surgical History: Appendectomy, Back Surgery, Breast Surgery, Cholecystectomy, Joint Replacement, Orthopedic Surgery Additional Past Surgical History / Comment(s): Fusion w/ kane also back surgery 04/21/2019. Left Shoulder Replacement, Right knee replacement, plate in right wrist, left thumb joint repair, Right CTR, Right shoulder arthroscopy. micheal cataracts, LARYNGOSCOPY, November 2016 Cervical Plate, PAIN CLINIC PROCEDURES, right masectomy Past Anesthesia/Blood Transfusion Reactions: No Reported Reaction Past Psychological History: No Psychological Hx Reported Smoking Status: Former smoker Past Alcohol Use History: None Reported Additional Past Alcohol Use History / Comment(s): SMOKED 1PPD, STARTED SMOKING AGE 17, AND QUIT IN 1981. Past Drug Use History: None Reported - Past Family History Brother(s) Family Medical History: Cancer, Myocardial Infarction ([place]) Father Family Medical History: Cancer Additional Family Medical History / Comment(s): throat, colon, liver, and brain cancer. Mother Family Medical History: Myocardial Infarction ([place]) Additional Family Medical History / Comment(s): at 54 of [place]. Medications and Allergies Home Medications Medication Instructions Recorded Confirmed Type Butalb/Acetaminophen/Caffeine 1 tab PO BID PRN 04/11/14 08/18/24 History [Fioricet 50-325-40 mg Tablet] lisinopriL [Zestril] 40 mg PO DAILY 04/04/16 08/18/24 History Albuterol Sulfate [Albuterol 2 puff INHALATION RT-QID PRN 03/09/24 08/18/24 Hi story Sulfate Hfa] Atorvastatin [Lipitor] 10 mg PO DAILY 03/09/24 08/18/24 History Insulin Glargine,Hum.rec.anlog 60 units SQ HS 03/09/24 08/18/24 History [Lantus Solostar Pen] Insulin Lispro [humaLOG Kwikpen] See Protocol SQ TID-W/MEALS 03/09/24 08/18/24 History Baclofen [Lioresal] 20 mg PO BID 08/18/24 08/18/24 History Budesonide-Formot 160-4.5 Mcg 2 puff INHALATION RT-BID PRN 08/18/24 08/18/24 History [Symbicort 160-4.5 Mcg Inhaler] HYDROcodone/APAP 10-325MG [[place] 1 tab PO BID 08/18/24 08/18/24 History 10-325] Morphine Sulfate ER [Ms Contin] 30 mg PO BID 08/18/24 08/18/24 History amLODIPine [Norvasc] 10 mg PO DAILY 08/18/24 08/18/24 History Allergies Allergy/AdvReac Type Severity Reaction Status Date / Time gabapentin AdvReac Confusion Verified 08/18/24 18:42 ibuprofen [From Motrin] AdvReac Abdominal Verified 08/18/24 18:42 Pain and vomiting pregabalin [From Lyrica] AdvReac Confusion Verified 08/18/24 18:42 Physical Exam Vitals: Vital Signs Temp Pulse Pulse Resp BP BP Pulse Ox 08/22/24 13:00 98.2 F 74 18 137/78 94 L 08/22/24 12:59 98.2 F 75 20 144/82 94 L 08/22/24 12:50 98.1 F 81 18 143/74 95 08/22/24 07:25 97.8 F 74 18 135/76 94 L 08/22/24 01:59 98.2 F 78 16 149/83 96 08/21/24 19:37 98.3 F 77 16 166/79 96 Intake and Output 08/21/24 08/22/24 08/22/24 22:59 06:59 14:59 Intake Total 900 0 Balance 900 0 Intake: Intake, IV Titration 900 Amount Sodium Chloride 0.9% 1, 900 000 ml @ 75 mls/hr IV . [id number] [facility] Rx#:[id number] Blood Product 0 Unit 0 Other: Voiding Method Bedside Commode Bedside Commode # Voids 4 3 GENERAL EXAM: Alert,-year-old female, on room air, fairly comfortable in no apparent distress. HEAD: Normocephalic. EYES: Normal reaction of pupils, equal size. NOSE: Clear with pink turbinates. THROAT: No erythema or exudates. NECK: No masses, no JVD. CHEST: No chest wall deformity. LUNGS: Equal air entry with no crackles, wheeze, rhonchi or dullness. CVS: S1 and S2 normal with no audible murmur, regular rhythm. ABDOMEN: No hepatosplenomegaly, normal bowel sounds, no guarding or rigidity. SPINE: No scoliosis or deformity SKIN: No rashes CENTRAL NERVOUS SYSTEM: No focal deficits, tone is normal in all 4 extremities. EXTREMITIES: There is no peripheral edema. No clubbing, no cyanosis. Peripheral pulses are intact. Results - Laboratory Findings CBC and BMP: 08/22/24 03:21 08/21/24 03:25 PT/INR, D-dimer PT 10.7 sec (10.0-12.5) 08/18/24 17:42 INR 1.0 (<1.2) 08/18/24 17:42 D-Dimer 5.29 mg/L FEU (<0.60) H 08/18/24 17:42 Abnormal lab findings: Abnormal Labs 08/18/24 08/18/24 08/18/24 17:42 17:42 17:42 WBC RBC 3.33 L Hgb 9.2 L Hct 26.7 L MCH MCHC RDW 17.5 H Plt Count 86 L Neutrophils # (Manual) Lymphocytes # (Manual) Monocytes # (Manual) Eosinophils # (Manual) Basophils # (Manual) Metamyelocytes # (Man) 0.15 H Myelocytes # (Manual) 0.04 H Nucleated RBCs 12 H NRBC/100 WBC Diff Microcytosis (manual) ESR Retic Count APTT 18.2 L D-Dimer 5.29 H Sodium 134 L Chloride 96 L Anion Gap BUN Glucose 180 H POC Glucose (mg/dL) Hemoglobin A1c Plasma Lactic Acid [place] Calcium Ferritin AST 42 H Alkaline Phosphatase 957 H C-Reactive Protein Total Protein Total Protein (PEP) Albumin Albumin/Globulin Ratio CA 15-3 Antigen CA 27-29 Urine Appearance Ur Specific [place] Urine Protein Urine Glucose (UA) Ur Squamous Epith Cells Urine Bacteria Urine Mucus Free [place] LC, Quant Free Lambda LC, Quant Crossmatch 08/18/24 08/18/24 08/19/24 17:42 17:42 05:14 WBC RBC Hgb Hct MCH MCHC RDW Plt Count Neutrophils # (Manual) Lymphocytes # (Manual) Monocytes # (Manual) Eosinophils # (Manual) Basophils # (Manual) Metamyelocytes # (Man) Myelocytes # (Manual) Nucleated RBCs NRBC/100 WBC Diff Microcytosis (manual) ESR Retic Count APTT D-Dimer Sodium Chloride Anion Gap BUN Glucose POC Glucose (mg/dL) Hemoglobin A1c 8.0 H Plasma Lactic Acid [place] 2.3 H* Calcium Ferritin 1375.0 H AST Alkaline Phosphatase C-Reactive Protein Total Protein Total Protein (PEP) Albumin Albumin/Globulin Ratio CA 15-3 Antigen CA 27-29 Urine Appearance Ur Specific [place] Urine Protein Urine Glucose (UA) Ur Squamous Epith Cells Urine Bacteria Urine Mucus Free [place] LC, Quant Free Lambda LC, Quant Crossmatch 08/19/24 08/19/24 08/19/24 05:15 05:15 05:15 WBC 3.3 L RBC 2.91 L Hgb 8.0 L Hct 23.5 L MCH MCHC RDW 18.0 H Plt Count 72 L Neutrophils # (Manual) Lymphocytes # (Manual) 0.76 L Monocytes # (Manual) Eosinophils # (Manual) Basophils # (Manual) Metamyelocytes # (Man) 0.07 H Myelocytes # (Manual) 0.03 H Nucleated RBCs 4 H NRBC/100 WBC Diff Microcytosis (manual) ESR Retic Count APTT D-Dimer Sodium 135 L Chloride Anion Gap BUN 19 H Glucose 175 H POC Glucose (mg/dL) Hemoglobin A1c Plasma Lactic Acid [place] Calcium Ferritin AST Alkaline Phosphatase 846 H C-Reactive Protein 3.3 H Total Protein 6.0 L Total Protein (PEP) Albumin 3.3 L Albumin/Globulin Ratio CA 15-3 Antigen CA 27-29 Urine Appearance Ur Specific [place] Urine Protein Urine Glucose (UA) Ur Squamous Epith Cells Urine Bacteria Urine Mucus Free [place] LC, Quant Free Lambda LC, Quant Crossmatch 08/19/24 08/19/24 08/19/24 05:15 07:14 12:01 WBC RBC Hgb Hct MCH MCHC RDW Plt Count Neutrophils # (Manual) Lymphocytes # (Manual) Monocytes # (Manual) Eosinophils # (Manual) Basophils # (Manual) Metamyelocytes # (Man) Myelocytes # (Manual) Nucleated RBCs NRBC/100 WBC Diff Microcytosis (manual) ESR 48 H Retic Count APTT D-Dimer Sodium Chloride Anion Gap BUN Glucose POC Glucose (mg/dL) 179 H Hemoglobin A1c Plasma Lactic Acid [place] Calcium Ferritin AST Alkaline Phosphatase C-Reactive Protein Total Protein Total Protein (PEP) Albumin Albumin/Globulin Ratio CA 15-3 Antigen CA 27-29 Urine Appearance Cloudy H Ur Specific [place] 1.050 H Urine Protein Trace H Urine Glucose (UA) 3+ H Ur Squamous Epith Cells 5 H Urine Bacteria Rare H Urine Mucus Few H Free [place] LC, Quant Free Lambda LC, Quant Crossmatch 08/19/24 08/19/24 08/19/24 12:10 17:11 19:58 WBC RBC Hgb Hct MCH MCHC RDW Plt Count Neutrophils # (Manual) Lymphocytes # (Manual) Monocytes # (Manual) Eosinophils # (Manual) Basophils # (Manual) Metamyelocytes # (Man) Myelocytes # (Manual) Nucleated RBCs NRBC/100 WBC Diff Microcytosis (manual) ESR Retic Count APTT D-Dimer Sodium Chloride Anion Gap BUN Glucose POC Glucose (mg/dL) 283 H 203 H 201 H Hemoglobin A1c Plasma Lactic Acid [place] Calcium Ferritin AST Alkaline Phosphatase C-Reactive Protein Total Protein Total Protein (PEP) Albumin Albumin/Globulin Ratio CA 15-3 Antigen CA 27-29 Urine Appearance Ur Specific [place] Urine Protein Urine Glucose (UA) Ur Squamous Epith Cells Urine Bacteria Urine Mucus Free [place] LC, Quant Free Lambda LC, Quant Crossmatch 08/20/24 08/20/24 08/20/24 09:43 09:49 09:49 WBC RBC Hgb Hct MCH MCHC RDW Plt Count Neutrophils # (Manual) Lymphocytes # (Manual) Monocytes # (Manual) Eosinophils # (Manual) Basophils # (Manual) Metamyelocytes # (Man) Myelocytes # (Manual) Nucleated RBCs NRBC/100 WBC Diff Microcytosis (manual) ESR Retic Count 4.19 H APTT D-Dimer Sodium Chloride Anion Gap BUN Glucose POC Glucose (mg/dL) Hemoglobin A1c Plasma Lactic Acid [place] Calcium Ferritin AST Alkaline Phosphatase C-Reactive Protein Total Protein Total Protein (PEP) 5.5 L Albumin Albumin/Globulin Ratio CA 15-3 Antigen 178.0 H CA 27-29 Urine Appearance Ur Specific [place] Urine Protein Urine Glucose (UA) Ur Squamous Epith Cells Urine Bacteria Urine Mucus Free [place] LC, Quant 6.48 H Free Lambda LC, Quant 4.39 H Crossmatch 08/20/24 08/20/24 08/20/24 09:49 09:49 10:00 WBC RBC Hgb Hct MCH MCHC RDW Plt Count Neutrophils # (Manual) Lymphocytes # (Manual) Monocytes # (Manual) Eosinophils # (Manual) Basophils # (Manual) Metamyelocytes # (Man) Myelocytes # (Manual) Nucleated RBCs NRBC/100 WBC Diff Microcytosis (manual) ESR 37 H Retic Count APTT D-Dimer Sodium Chloride Anion Gap BUN Glucose POC Glucose (mg/dL) Hemoglobin A1c Plasma Lactic Acid [place] Calcium Ferritin AST Alkaline Phosphatase C-Reactive Protein 2.20 H Total Protein Total Protein (PEP) Albumin Albumin/Globulin Ratio CA 15-3 Antigen CA 27-29 285.0 H Urine Appearance Ur Specific [place] Urine Protein Urine Glucose (UA) Ur Squamous Epith Cells Urine Bacteria Urine Mucus Free [place] LC, Quant Free Lambda LC, Quant Crossmatch 08/20/24 08/20/24 08/20/24 12:26 17:15 20:43 WBC RBC Hgb Hct MCH MCHC RDW Plt Count Neutrophils # (Manual) Lymphocytes # (Manual) Monocytes # (Manual) Eosinophils # (Manual) Basophils # (Manual) Metamyelocytes # (Man) Myelocytes # (Manual) Nucleated RBCs NRBC/100 WBC Diff Microcytosis (manual) ESR Retic Count APTT D-Dimer Sodium Chloride Anion Gap BUN Glucose POC Glucose (mg/dL) 153 H 218 H 254 H Hemoglobin A1c Plasma Lactic Acid [place] Calcium Ferritin AST Alkaline Phosphatase C-Reactive Protein Total Protein Total Protein (PEP) Albumin Albumin/Globulin Ratio CA 15-3 Antigen CA 27-29 Urine Appearance Ur Specific [place] Urine Protein Urine Glucose (UA) Ur Squamous Epith Cells Urine Bacteria Urine Mucus Free [place] LC, Quant Free Lambda LC, Quant Crossmatch 08/21/24 08/21/24 08/21/24 03:25 03:25 07:33 WBC 3.07 L RBC 2.69 L Hgb 7.1 L Hct 22.7 L MCH 26.4 L MCHC 31.3 L RDW 17.3 H Plt Count 63 L Neutrophils # (Manual) 1.54 L Lymphocytes # (Manual) Monocytes # (Manual) 0.18 L Eosinophils # (Manual) 0.03 L Basophils # (Manual) 0.12 H Metamyelocytes # (Man) Myelocytes # (Manual) Nucleated RBCs NRBC/100 WBC Diff 0.32 H Microcytosis (manual) 2+ A ESR Retic Count APTT D-Dimer Sodium Chloride Anion Gap 12.10 H BUN Glucose 120 H POC Glucose (mg/dL) 123 H Hemoglobin A1c Plasma Lactic Acid [place] Calcium 8.6 L Ferritin AST 39 H Alkaline Phosphatase 755 H C-Reactive Protein Total Protein 5.5 L Total Protein (PEP) Albumin 3.1 L Albumin/Globulin Ratio 1.29 L CA 15-3 Antigen CA 27-29 Urine Appearance Ur Specific [place] Urine Protein Urine Glucose (UA) Ur Squamous Epith Cells Urine Bacteria Urine Mucus Free [place] LC, Quant Free Lambda LC, Quant Crossmatch 08/21/24 08/21/24 08/21/24 12:09 17:11 20:12 WBC RBC Hgb Hct MCH MCHC RDW Plt Count Neutrophils # (Manual) Lymphocytes # (Manual) Monocytes # (Manual) Eosinophils # (Manual) Basophils # (Manual) Metamyelocytes # (Man) Myelocytes # (Manual) Nucleated RBCs NRBC/100 WBC Diff Microcytosis (manual) ESR Retic Count APTT D-Dimer Sodium Chloride Anion Gap BUN Glucose POC Glucose (mg/dL) 153 H 225 H 171 H Hemoglobin A1c Plasma Lactic Acid [place] Calcium Ferritin AST Alkaline Phosphatase C-Reactive Protein Total Protein Total Protein (PEP) Albumin Albumin/Globulin Ratio CA 15-3 Antigen CA 27-29 Urine Appearance Ur Specific [place] Urine Protein Urine Glucose (UA) Ur Squamous Epith Cells Urine Bacteria Urine Mucus Free [place] LC, Quant Free [place]ambda LC, Quant Crossmatch 08/22/24 08/22/24 08/22/24 03:21 10:53 12:34 WBC 2.93 L RBC 2.59 L Hgb 6.8 A* Hct 21.6 L MCH 26.3 L MCHC 31.5 L RDW 17.5 H Plt Count 54 L Neutrophils # (Manual) 1.58 L Lymphocytes # (Manual) Monocytes # (Manual) 0.09 L Eosinophils # (Manual) Basophils # (Manual) Metamyelocytes # (Man) Myelocytes # (Manual) Nucleated RBCs NRBC/100 WBC Diff 0.30 H Microcytosis (manual) 2+ A ESR Retic Count APTT D-Dimer Sodium Chloride Anion Gap BUN Glucose POC Glucose (mg/dL) 144 H Hemoglobin A1c Plasma Lactic Acid [place] Calcium Ferritin AST Alkaline Phosphatase C-Reactive Protein Total Protein Total Protein (PEP) Albumin Albumin/Globulin Ratio CA 15-3 Antigen CA 27-29 Urine Appearance Ur Specific [place] Urine Protein Urine Glucose (UA) Ur Squamous Epith Cells Urine Bacteria Urine Mucus Free [place] LC, Quant Free [place]ambda LC, Quant Crossmatch See Detail - Diagnostic Findings Chest x-ray: image reviewed CT scan - chest: image reviewed Assessment and Plan Assessment: Acute right knee pain suspect secondary to metastatic disease Breast cancer diagnosed in 2019, status post right mastectomy and radiation. CT findings are showing possible recurrence in the right breast Mediastinal lymphadenopathy with small pulmonary nodules Pancytopenia with no history of chemotherapy Chronic back pain Chronic obstructive pulmonary disease Former smoker Obesity Diabetes mellitus Hyperlipidemia Hypertension Plan: The patient was seen and evaluated All imaging, labs and medications reviewed Surgery consulted for possible breast biopsy Will await their recommendations May require biopsies of the mediastinal and hilar lymph nodes Assure adequate pain control Currently stable and on room air Receiving 1 unit of packed red blood cells for hemoglobin 6.8 We will continue to follow and make further recommendations based on her clin ical status I have personally seen and examined the patient, performed the documentation and the assessment and plan as written. Number of minutes spent on the visit: 20 Dictation was produced using [employer] dictation software. Please excuse any grammatical, word or spelling errors. This patient was seen in coordination with the pulmonary/critical care physician, Dr. Mulligan. He did spend greater than 50% of the time evaluating, examining and developing the plan of care. He agrees to the above HPI, physical exam, assessment and plan of care as dictated by the nurse practitioner.
[2024-08-22] MEDS: PROCHLORPERAZINE 5 MG TAB PO PRN (13:29)
[2024-08-22 17:10] LABS: Glucose,Whole Blood 178 mg/dL (70-110)
[2024-08-22] MEDS: ONDANSETRON 4 MG/2 ML VIAL IVP PRN (17:27)
[2024-08-22 19:52] LABS: Glucose,Whole Blood 172 mg/dL (70-110)
--- NOTE | 2024-08-22 21:34 | P.PN ---
Subjective Progress Note Date: 08/22/24 Patient evaluated today sitting up in the chair. Her main complaint today is severe pain to her right knee. There is right anterior tibial knee fracture with a prior prosthesis. Oncology recommending no surgical intervention at this time secondary to patient's underlying conditions and the pancytopenia. Hemoglobin today was 6.8 and patient will receive 1 unit of packed red blood cells. Patient does report chronic back pain however states that the knee pain is what is bothering her the most. Of note patient underwent a bone scan which reveals diffuse uptake identified within the axial and appendicular skeleton corresponding to CT findings. There is a concern for metastasis versus other etiologies. The abdominal pelvis CT reveals subacute fracture of the left from T11 with incomplete osseous fusion at this fracture site. A nodular contour to the liver correlate for cirrhosis. There is diffuse osseous metastatic disease involving nearly every osseous structure per the CT report. There are no greater than 1.0 cm short axis lymph nodes suggesting intra-abdominal metastatic disease. Surgery following and felt that there was no need for a breast biopsy at this time and felt that the CT thorax revealed a large seroma at the previous mastectomy site. Pulmonary was consulted for possible bronchoscopy and LN biopsy. Did discuss with the patient that orthopedic had recommended follow-up with orthopedic oncology which would need to be done at a tertiary care facility and at this time patient is extremely anxious about this and states that she does not want to be that far from her family as they have no reliable transportation at this time. Patient has declined to get up with physical therapy at this time states that she has family support who can assist as needed however there is concern that she is currently nonweightbearing secondary to the pain and this would impact her discharge planning. Review of Systems Constitutional: Denied any fatigue denied any fever. Cardio vascular: denied any chest pain, palpitations Gastrointestinal: denied any nausea, vomiting, diarrhea Pulmonary: Denied any shortness of breath cough Neurologic denied any new focal deficits reports right knee pain All inpatient medications were reviewed and appropriate changes in these medications as dictated in the interval history and assessment and plan. PHYSICAL EXAMINATION: GENERAL: The patient is alert and oriented x3, not in any acute distress. Well developed, well nourished. HEENT: Pupils are round and equally reacting to light. EOMI. No scleral icterus. No conjunctival pallor. Normocephalic, atraumatic. No pharyngeal erythema. No thyromegaly. CARDIOVASCULAR: S1 and S2 present. No murmurs, rubs, or gallops. PULMONARY: Chest is clear to auscultation, no wheezing or crackles. ABDOMEN: Soft, nontender, nondistended, normoactive bowel sounds. No palpable organomegaly. MUSCULOSKELETAL: No joint swelling or deformity. EXTREMITIES: No cyanosis, clubbing, or pedal edema. NEUROLOGICAL: Gross neurological examination did not reveal any focal deficits. SKIN: No rashes. Assessment and plan Acute right knee pain with an anterior tib knee fracture orthopedics recommended follow-up with an orthopedic oncologist. Patient does have a prior right knee arthroplasty with prosthetic noted on imaging this could be due to metastatic disease unable to officially rule it out Breast cancer diagnosed in 2020 with right mastectomy and radiation CT findings show a seroma versus reoccurrence of cancer in the right breast. General surgery felt this was more likely a seroma and no need for biopsy at this time Mediastinal lymphadenopathy with small pulmonary nodules pancytopenia no history of chemotherapy in the past Chronic back pain with CT and bone scan suggesting diffuse metastatic osseous disease Chronic obstructive pulmonary disease with no acute exacerbation Obesity Diabetes mellitus type 2 Hypertension Hyperlipidemia GI prophylaxis DVT prophylaxis Full code Patient is currently receiving 1 unit of packed red blood cells today and will repeat hemoglobin tomorrow no signs of active bleeding at this time Oncology following regarding the pancytopenia and concern for metastatic/osseous bone disease Orthopedics recommending to follow-up with an orthopedic oncologist on discharge and patient is hesitant about this because she would need to travel for tertiary care Continue pain management for the right knee pain PT OT consulted and patient did refuse to work with them however need to confirm weightbearing status with orthopedics No plans for surgical intervention for the right anterior tibia fracture at this time Pulmonary was consulted and pending further recommendations regarding mediastinal and hilar lymph nodes which may require biopsy Repeat blood work in the morning The impression and plan of care has been dictated by Nurse Loni Dobson ctitioner as directed. Dr. Joesph MD I have performed a history and physical examination and medical decision making of this patient, discussed the same with the dictator, and agree with the dictat ors assessment and plan as written, documented as a scribe. Based on total visit time, I have performed more than 50% of this visit. Objective - Vital Signs Vital signs: Vital Signs Temp 97.9 F 08/22/24 15:15 Pulse 74 08/22/24 15:15 Resp 16 08/22/24 15:15 BP 174/84 08/22/24 15:15 Pulse Ox 96 08/22/24 15:15 FiO2 Intake & Output 08/21/24 08/22/24 08/22/24 18:59 06:59 18:59 Intake Total 900 310 Balance 900 310 Intake: Intake, IV Titration 900 Amount Sodium Chloride 0.9% 1, 900 000 ml @ 75 mls/hr IV . [id number] [facility] Rx#:[id number] Blood Product 310 Rc Irr As1 Unit 310 [id number] Other: Voiding Method Bedside Commode Bedside Commode # Voids 4 3 - Labs CBC & Chem 7: 08/22/24 03:21 08/21/24 03:25 Labs: Abnormal Lab Results - Last 24 Hours (Table) 08/21/24 08/21/24 08/22/24 Range/Units 17:11 20:12 03:21 WBC 2.93 L (4.50-10.00) X 10*3/uL RBC 2.59 L (4.10-5.20) X 10*6/uL Hgb 6.8 A* (12.0-15.0) g/dL Hct 21.6 L (37.2-46.3) % MCH 26.3 L (27.0-32.0) pg MCHC 31.5 L (32.0-37.0) g/dL RDW 17.5 H (11.5-14.5) % Plt Count 54 L (140-440) X 10*3/uL Neutrophils # (Manual) 1.58 L (1.80-7.70) X 10*3/uL Monocytes # (Manual) 0.09 L (0.20-1.00) X 10*3/uL NRBC/100 WBC Diff 0.30 H (0.00-0.01) X 10*3/uL Microcytosis (manual) 2+ A (None Seen) POC Glucose (mg/dL) 225 H 171 H (70-110) mg/dL Crossmatch 08/22/24 08/22/24 Range/Units 10:53 12:34 WBC (4.50-10.00) X 10*3/uL RBC (4.10-5.20) X 10*6/uL Hgb (12.0-15.0) g/dL Hct (37.2-46.3) % MCH (27.0-32.0) pg MCHC (32.0-37.0) g/dL RDW (11.5-14.5) % Plt Count (140-440) X 10*3/uL Neutrophils # (Manual) (1.80-7.70) X 10*3/uL Monocytes # (Manual) (0.20-1.00) X 10*3/uL NRBC/100 WBC Diff (0.00-0.01) X 10*3/uL Microcytosis (manual) (None Seen) POC Glucose (mg/dL) 144 H (70-110) mg/dL Crossmatch See Detail Assessment and Plan Time with Patient: Greater than 30
[2024-08-23 07:28] LABS: Glucose,Whole Blood 102 mg/dL (70-110)
--- NOTE | 2024-08-23 08:01 | P.PN ---
Subjective Progress Note Date: 08/23/24 Principal diagnosis: Abnormal CT scan. This is a 69-year-old female patient with a known history of diabetes mellitus, hypertension, hyperlipidemia, obstructive pulmonary disease, former smoker. She also has a history of breast cancer status post right mastectomy. She presented here back on 08/18/2024 with concern with right knee pain. CT scan of the knee did reveal changes possibly sequela of chronic infection or underlying osseous metastatic disease. Metastatic disease. No greater than 1.0 cm lymph nodes suggest intra-abdominal metastatic disease. Subacute fracture of left rib 11. CT scan of the chest reveals new diffuse ostial sclerotic throughout the bony structures. Correlate for diffuse osseous metastatic disease. No large central or lobar branch embolus. Mediastinal and hilar lymph nodes measuring up to 1.8 cm in a couple pulmonary nodules measuring up to 1 cm. She is seen today August 22, 2024 in consultation based on the CT angiogram findings with mediastinal lymph nodes. Currently awake and alert and resting fairly comfortable in bed. She is still complaining of a lot of right knee pain. She denies any shortness of breath, cough or congestion. No hemoptysis. Maintaining good O2 saturations in the 90s on room air. She is afebrile. H emodynamically stable. White count 2.9. Hemoglobin 6.8. Platelets 54,000. Odium 136. Potassium 4.3. Bicarb 24. BUN 14. Creatinine 0.8. Is continued on her albuterol and Symbicort. Receiving Dilaudid and morphine for pain control. Normal saline at 75 cc/h. Progress note dated August 23, 2024. 69-year-old female seen yesterday in consultation. Please see the consultation above. The patient has a history of diabetes mellitus, hypertension, hyperlipidemia, obstructive lung disease, previous tobacco use, and previous history of breast cancer, status postmastectomy. The patient was admitted with right knee pain. We are asked to see the patient for possible biopsy, based on an abnormal CT scan which shows largest mediastinal lymph nodes. The patient was seen by surgery yesterday, and there is no plans for them doing a biopsy. They recommended that pulmonary consider doing bronchoscopy, and biopsy. The patient is not having any respiratory issues at this time. She is currently on room air. She is getting saline at 75 cc an hour. She does continue with right knee pain. Current labs, include a glucose of 102. Objective - Vital Signs Vital signs: Vital Signs Temp 98.6 F 08/23/24 02:00 Pulse 77 08/23/24 02:00 Resp 16 08/23/24 02:00 BP 122/56 08/23/24 02:00 Pulse Ox 92 L 08/23/24 02:00 FiO2 Intake & Output 08/22/24 08/23/24 08/23/24 18:59 06:59 18:59 Intake Total 850 1415 Balance 850 1415 Intake: Intake, IV Titration 825 Amount Sodium Chloride 0.9% 1, 825 000 ml @ 75 mls/hr IV . [id number] [facility] Rx#:[id number] Oral 540 590 Blood Product 310 Rc Irr As1 Unit 310 [id number] Other: Voiding Method Bedside Commode Bedside Commode # Voids 2 3 - Exam No acute distress, oriented 3. HEENT examination is grossly unremarkable. Mucous membranes are moist. No oral lesions. Neck supple. Full range of motion. No adenopathy thyromegaly or neck vein distention. Cardiovascular examination reveals regular rhythm rate. S1-S2 normal. No S3 or S4. No discernible murmur noted. Lungs reveal clear breath sounds. Breath sounds are equal bilaterally. No adventitious lung sounds including wheezes rhonchi or crackles. Abdomen soft bowel sounds are heard. No masses or tenderness. Extremities are intact. No cyanosis clubbing or edema. Skin is without rash or lesion. Neurologic examination is brief but nonfocal. - Labs CBC & Chem 7: 08/22/24 03:21 08/21/24 03:25 Labs: Abnormal Lab Results - Last 24 Hours (Table) 08/22/24 08/22/24 08/22/24 Range/Units 03:21 10:53 12:34 WBC 2.93 L (4.50-10.00) X 10*3/uL RBC 2.59 L (4.10-5.20) X 10*6/uL Hgb 6.8 A* (12.0-15.0) g/dL Hct 21.6 L (37.2-46.3) % MCH 26.3 L (27.0-32.0) pg MCHC 31.5 L (32.0-37.0) g/dL RDW 17.5 H (11.5-14.5) % Plt Count 54 L (140-440) X 10*3/uL Neutrophils # (Manual) 1.58 L (1.80-7.70) X 10*3/uL Monocytes # (Manual) 0.09 L (0.20-1.00) X 10*3/uL NRBC/100 WBC Diff 0.30 H (0.00-0.01) X 10*3/uL Microcytosis (manual) 2+ A (None Seen) POC Glucose (mg/dL) 144 H (70-110) mg/dL Crossmatch See Detail 08/22/24 08/22/24 Range/Units 17:08 19:51 WBC (4.50-10.00) X 10*3/uL RBC (4.10-5.20) X 10*6/uL Hgb (12.0-15.0) g/dL Hct (37.2-46.3) % MCH (27.0-32.0) pg MCHC (32.0-37.0) g/dL RDW (11.5-14.5) % Plt Count (140-440) X 10*3/uL Neutrophils # (Manual) (1.80-7.70) X 10*3/uL Monocytes # (Manual) (0.20-1.00) X 10*3/uL NRBC/100 WBC Diff (0.00-0.01) X 10*3/uL Microcytosis (manual) (None Seen) POC Glucose (mg/dL) 178 H 172 H (70-110) mg/dL Crossmatch Assessment and Plan Assessment: Acute right knee pain suspect secondary to metastatic disease. Breast cancer diagnosed in 2019, status post right mastectomy and radiation. CT findings are showing possible recurrence in the right breast. Mediastinal lymphadenopathy with small pulmonary nodules. Pancytopenia with no history of chemotherapy. Chronic back pain. Chronic obstructive pulmonary disease. Former smoker. Obesity. Diabetes mellitus. Hyperlipidemia. Hypertension. Plan: Plan dated August 23, 2024. The patient is seen today in room 530. The patient continues with significant right knee pain. She does have pain medications ordered, and just has to ask the nurses for them. Surgery saw the patient, and have no plans to do a biopsy. Oncology is requesting that pulmonary consider robotic bronchoscopy, and sampling of the thoracic adenopathy. I will leave that up to my partner, who starts the service tomorrow. From the pulmonary standpoint, she is currently stable. She is on room air. She is not having any respiratory distress or d ifficulty. She is getting saline at 75 cc an hour. Prognosis is guarded. Time with Patient: Less than 30
[2024-08-23 10:52] LABS: Blood Urea Nitrogen 12.4 mg/dL (9.0-27.0); Calcium 8.5 mg/dL (8.7-10.3); Carbon Dioxide 24.5 mmol/L (21.6-31.8); Chloride 104 mmol/L (96-109); Glucose 139 mg/dL (70-110); Magnesium 1.9 mg/dL (1.5-2.4); Potassium 3.9 mmol/L (3.5-5.5); Sodium 138 mmol/L (135-145)
[2024-08-23 11:35] LABS: Eosinophils # (M) 0.07 X 10*3/uL (0.04-0.35); HCT 25.2 % (37.2-46.3); HGB 7.6 g/dL (12.0-15.0); Lymphocytes # (M) 1.11 X 10*3/uL (0.90-5.00); MCH 25.7 pg (27.0-32.0); MCHC 30.2 g/dL (32.0-37.0); MCV 85.1 FL (80.0-97.0); Mean Platelet Volume 10.7 FL (9.5-12.2); Metamyelocytes % 3 % (0-0); Monocytes # (M) 0.07 X 10*3/uL (0.20-1.00); Myelocytes % 2 % (0-0); NRBC Per 100 WBC 0.33 X 10*3/uL (0.00-0.01); Neutrophils # (M) 1.94 X 10*3/uL (1.80-7.70); Neutrophils % (M) 56 %; Platelet Count 55 X 10*3/uL (140-440); RBC 2.96 X 10*6/uL (4.10-5.20); RBC Morphology Normal (Normal); RDW 17.4 % (11.5-14.5); WBC 3.47 X 10*3/uL (4.50-10.00)
[2024-08-23 12:16] LABS: Glucose,Whole Blood 126 mg/dL (70-110)
[2024-08-23] MEDS: HYDROcodone/APAP 10-325MG 1 EACH TAB PO PRN (13:57)
--- NOTE | 2024-08-23 16:09 | P.PN ---
Subjective Progress Note Date: 08/23/24 Patient evaluated today sitting up in the chair. Her main complaint today is severe pain to her right knee. There is right anterior tibial knee fracture with a prior prosthesis. Oncology recommending no surgical intervention at this time secondary to patient's underlying conditions and the pancytopenia. Hemoglobin today was 6.8 and patient will receive 1 unit of packed red blood cells. Patient does report chronic back pain however states that the knee pain is what is bothering her the most. Of note patient underwent a bone scan which reveals diffuse uptake identified within the axial and appendicular skeleton corresponding to CT findings. There is a concern for metastasis versus other etiologies. The abdominal pelvis CT reveals subacute fracture of the left from T11 with incomplete osseous fusion at this fracture site. A nodular contour to the liver correlate for cirrhosis. There is diffuse osseous metastatic disease involving nearly every osseous structure per the CT report. There are no greater than 1.0 cm short axis lymph nodes suggesting intra-abdominal metastatic disease. Surgery following and felt that there was no need for a breast biopsy at this time and felt that the CT thorax revealed a large seroma at the previous mastectomy site. Pulmonary was consulted for possible bronchoscopy and LN biopsy. Did discuss with the patient that orthopedic had recommended follow-up with orthopedic oncology which would need to be done at a tertiary care facility and at this time patient is extremely anxious about this and states that she does not want to be that far from her family as they have no reliable transportation at this time. Patient has declined to get up with physical therapy at this time states that she has family support who can assist as needed however there is concern that she is currently nonweightbearing secondary to the pain and this would impact her discharge planning. 08/23/2024 Patient is evaluated in follow-up on the medical floor. Patient is pending vision from pulmonary to undergo bronchoscopy with biopsy per oncology recommendations. Clinically unable to determine whether there is bony metastasis or not in the spine based on imaging reports. Pending follow-up by orthopedics regarding the right knee fracture and further recommendations for surgical intervention is at this time patient is currently nonweightbearing and continues to have excruciating pain requiring IV and oral pain medications. Blood work today reveals a white blood cell count of 3.47, hemoglobin of 7.6, platelet count of 55. Electrolytes and renal function remained stable. Review of Systems Constitutional: Denied any fatigue denied any fever. Cardio vascular: denied any chest pain, palpitations Gastrointestinal: denied any nausea, vomiting, diarrhea Pulmonary: Denied any shortness of breath cough Neurologic denied any new focal deficits reports right knee pain All inpatient medications were reviewed and appropriate changes in these medications as dictated in the interval history and assessment and plan. PHYSICAL EXAMINATION: GENERAL: The patient is alert and oriented x3, not in any acute distress. Well developed, well nourished. HEENT: Pupils are round and equally reacting to light. EOMI. No scleral icterus. No conjunctival pallor. Normocephalic, atraumatic. No pharyngeal erythema. No thyromegaly. CARDIOVASCULAR: S1 and S2 present. No murmurs, rubs, or gallops. PULMONARY: Chest is clear to auscultation, no wheezing or crackles. ABDOMEN: Soft, nontender, nondistended, normoactive bowel sounds. No palpable organomegaly. MUSCULOSKELETAL: No joint swelling or deformity. EXTREMITIES: No cyanosis, clubbing, or pedal edema. NEUROLOGICAL: Gross neurological examination did not reveal any focal deficits. SKIN: No rashes. Assessment and plan Acute right knee pain with an anterior tib knee fracture orthopedics recommended follow-up with an orthopedic oncologist. Patient does have a prior right knee arthroplasty with prosthetic noted on imaging this could be due to metastatic disease unable to officially rule it out. Also possibility underlying infection. Breast cancer diagnosed in 2020 with right mastectomy and radiation CT findings show a seroma versus reoccurrence of cancer in the right breast. General surgery felt this was more likely a seroma and no need for biopsy at this time Mediastinal lymphadenopathy with small pulmonary nodules pancytopenia no history of chemotherapy in the past Chronic back pain with CT and bone scan suggesting diffuse metastatic osseous disease although unable to clinically diagnose Chronic obstructive pulmonary disease with no acute exacerbation Obesity Diabetes mellitus type 2 Hypertension Hyperlipidemia GI prophylaxis DVT prophylaxis Full code Patient is status post 1 unit of packed red blood cells no signs of active bleeding.Hemoglobin 7.6 today Oncology following regarding the pancytopenia and concern for metastatic/osseous bone disease recommending bronchoscopy and biopsy and pulmonary following. Orthopedics recommending to follow-up with an orthopedic oncologist on discharge and patient is hesitant about this because she would need to travel for tertiary care. They have signed off with no plans for surgical intervention of the right knee at this time. Continue pain management for the right knee pain PT OT consulted and patient did refuse to work with them she is currently toe touch weightbearing. Pulmonary was consulted and pending further recommendations regarding mediastinal and hilar lymph nodes which may require biopsy Repeat blood work in the morning The impression and plan of care has been dictated by Claire Kay, Nurse Practitioner as directed. Dr. Joeshp MD I have performed a history and physical examination and medical decision making of this patient, discussed the same with the dictator, and agree with the dictators assessment and plan as written, documented as a scribe. Based on total visit time, I have performed more than 50% of this visit. Objective - Vital Signs Vital signs: Vital Signs Temp 97.8 F 08/23/24 12:24 Pulse 75 08/23/24 12:24 Resp 16 08/23/24 12:24 BP 136/73 08/23/24 12:24 Pulse Ox 96 08/23/24 12:24 FiO2 Intake & Output 08/22/24 08/23/24 08/23/24 18:59 06:59 18:59 Intake Total 850 1415 Balance 850 1415 Intake: Intake, IV Titration 825 Amount Sodium Chloride 0.9% 1, 825 000 ml @ 75 mls/hr IV . [id number] [facility] Rx#:[id number] Oral 540 590 Blood Product 310 Rc Irr As1 Unit 310 [id number] Other: Voiding Method Bedside Commode Bedside Commode Bedside Commode # Voids 2 3 - Labs CBC & Chem 7: 08/23/24 05:34 08/23/24 05:28 Labs: Abnormal Lab Results - Last 24 Hours (Table) 08/22/24 08/22/24 08/23/24 Range/Units 17:08 19:51 05:28 WBC (4.50-10.00) X 10*3/uL RBC (4.10-5.20) X 10*6/uL Hgb (12.0-15.0) g/dL Hct (37.2-46.3) % MCH (27.0-32.0) pg MCHC (32.0-37.0) g/dL RDW (11.5-14.5) % Plt Count (140-440) X 10*3/uL Monocytes # (Manual) (0.20-1.00) X 10*3/uL NRBC/100 WBC Diff (0.00-0.01) X 10*3/uL Glucose 139 H (70-110) mg/dL POC Glucose (mg/dL) 178 H 172 H (70-110) mg/dL Calcium 8.5 L (8.7-10.3) mg/dL 08/23/24 08/23/24 Range/Units 05:34 12:14 WBC 3.47 L (4.50-10.00) X 10*3/uL RBC 2.96 L (4.10-5.20) X 10*6/uL Hgb 7.6 L (12.0-15.0) g/dL Hct 25.2 L (37.2-46.3) % MCH 25.7 L (27.0-32.0) pg MCHC 30.2 L (32.0-37.0) g/dL RDW 17.4 H (11.5-14.5) % Plt Count 55 L (140-440) X 10*3/uL Monocytes # (Manual) 0.07 L (0.20-1.00) X 10*3/uL NRBC/100 WBC Diff 0.33 H (0.00-0.01) X 10*3/uL Glucose (70-110) mg/dL POC Glucose (mg/dL) 126 H (70-110) mg/dL Calcium (8.7-10.3) mg/dL Assessment and Plan Time with Patient: Less than 30
[2024-08-23 17:08] LABS: Glucose,Whole Blood 193 mg/dL (70-110)
[2024-08-23 20:03] LABS: Glucose,Whole Blood 156 mg/dL (70-110)
--- NOTE | 2024-08-24 00:35 | P.PN ---
Progress Note - Text Progress Note Date: 08/23/24 Patient seen and examined. No acute events overnight. Patient continues to complain of severe knee pain General Exam General appearance: alert, in no apparent distress Head exam: Present: atraumatic, normocephalic, normal inspection Eye exam: Present: normal appearance, PERRL, EOMI. Absent: scleral icterus, conjunctival injection, periorbital swelling ENT exam: Present: normal exam, mucous membranes moist Neck exam: Present: normal inspection. Absent: tenderness, meningismus, lymphadenopathy Respiratory exam: Present: normal lung sounds bilaterally. Absent: respiratory distress, wheezes, rales, rhonchi, stridor Cardiovascular Exam: Present: regular rate, normal rhythm, normal heart sounds. Absent: systolic murmur, diastolic murmur, rubs, gallop, clicks GI/Abdominal exam: Present: soft, normal bowel sounds. Absent: distended, tenderness, guarding, rebound, rigid Extremities exam: Present: normal inspection, full ROM, normal capillary refill. Absent: tenderness, pedal edema, joint swelling, calf tenderness Back exam: Present: normal inspection Neurological exam: Present: alert, oriented X3, CN II-XII intact Psychiatric exam: Present: normal affect, normal mood Skin exam: Present: warm, dry, intact, normal color. Absent: rash 69 year old female with history of Mastectomy for Breast Cancer. CT Thorax performed which showed a large seroma at previous mastectomy site -No role for breast biopsy based on imaging. Discussed with Oncology -Plan for Pulmonology to performed bronchoscopy to biopsy nodes -Ortho recs regarding knee pain -No acute surgical intervention planned Surendra Mason DO [facility] [phone]
[2024-08-24 07:32] LABS: Glucose,Whole Blood 126 mg/dL (70-110)
[2024-08-24 10:08] LABS: Basophils # (M) 0.07 X 10*3/uL (0.00-0.10); Eosinophils # (M) 0 X 10*3/uL (0.04-0.35); HGB 8.3 g/dL (12.0-15.0); Immature Platelet Fraction 4.6 % (1.1-6.1); Lymphocytes # (M) 1.12 X 10*3/uL (0.90-5.00); MCH 26.8 pg (27.0-32.0); MCHC 31.9 g/dL (32.0-37.0); MCV 83.9 FL (80.0-97.0); Mean Platelet Volume 10.9 FL (9.5-12.2); Microcytosis (M) 2+ (None Seen); Monocytes # (M) 0.15 X 10*3/uL (0.20-1.00); Myelocytes % 6 % (0-0); NRBC Per 100 WBC 0.38 X 10*3/uL (0.00-0.01); Neutrophils # (M) 2.12 X 10*3/uL (1.80-7.70); Neutrophils % (M) 57 %; Nucleated Red Blood Cells 21 /100 WBCS; Platelet Count 56 X 10*3/uL (140-440); Promyelocytes # (M) 0.04 k/uL (0); Promyelocytes % 1 %; RDW 17.5 % (11.5-14.5); WBC 3.72 X 10*3/uL (4.50-10.00)
[2024-08-24 12:04] LABS: Glucose,Whole Blood 196 mg/dL (70-110)
[2024-08-24 17:07] LABS: Glucose,Whole Blood 169 mg/dL (70-110)
--- NOTE | 2024-08-24 18:42 | P.PN ---
Subjective Progress Note Date: 08/24/[address] scan. This is a 69-year-old female patient with a known history of diabetes mellitus, hypertension, hyperlipidemia, obstructive pulmonary disease, former smoker. She also has a history of breast cancer status post right mastectomy. She presented here back on 08/18/2024 with concern with right knee pain. CT scan of the knee did reveal changes possibly sequela of chronic infection or underlying osseous metastatic disease. Metastatic disease. No greater than 1.0 cm lymph nodes suggest intra-abdominal metastatic disease. Subacute fracture of left rib 11. CT scan of the chest reveals new diffuse ostial sclerotic throughout the bony structures. Correlate for diffuse osseous metastatic disease. No large central or lobar branch embolus. Mediastinal and hilar lymph nodes measuring up to 1.8 cm in a couple pulmonary nodules measuring up to 1 cm. She is seen today August 22, 2024 in consultation based on the CT angiogram findings with mediastinal lymph nodes. Currently awake and alert and resting fairly comfortable in bed. She is still complaining of a lot of right knee pain. She denies any shortness of breath, cough or congestion. No hemoptysis. Maintaining good O2 saturations in the 90s on room air. She is afebrile. Hemodynamically stable. White count 2.9. Hemoglobin 6.8. Platelets 54,000. Odium 136. Potassium 4.3. Bicarb 24. BUN 14. Creatinine 0.8. Is continued on her albuterol and Symbicort. Receiving Dilaudid and morphine for pain control. Normal saline at 75 cc/h. Progress note dated August 23, 2024. 69-year-old female seen yesterday in consultation. Please see the consultation above. The patient has a history of diabetes mellitus, hypertension, hyperlipidemia, obstructive lung disease, previous tobacco use, and previous history of breast cancer, status postmastectomy. The patient was admitted with right knee pain. We are asked to see the patient for possible biopsy, based on an abnormal CT scan which shows largest mediastinal lymph nodes. The patient was seen by surgery yesterday, and there is no plans for them doing a biopsy. They recommended that pulmonary consider doing bronchoscopy, and biopsy. The patient is not having any respiratory issues at this time. She is currently 08/24/2024, patient is being seen for a follow-up. Will consult on the patient regarding abnormal mediastinal lymph nodes and some pulmonary nodules which raise suspicion for metastatic disease involving the lungs. I reviewed the CT of the chest which was done on 08/18/2024. The CAT scan shows diffuse osteosclerosis throughout the bony structures consistent with diffuse osseous metastatic disease along with some mild paravertebral soft tissue thickening at the level of T9 probably representing extraosseous soft tissue extension. In terms of the mediastinum, there are some limited enlarged lymph nodes largest being around 1.8 cm in size in the right hilum and paratracheal area. There are also some scattered subcentimeter nodular subpleural densities in the right apex measuring 1 cm in size. There is also a 10 x 8.4 cm right breast reconstruction/postmastectomy seroma. Also radiation changes involving the right breast. Clinically, the patient has no respiratory distress. Her pulse ox 93% on room air oxygen. She is on Symbicort. She is on Ventolin nebulized treatments as needed. She remains on Arimidex. She is still complaining of knee pain. She is known to have diabetes mellitus type 2, hypertension, hyperlipidemia, COPD and the patient is a former smoker. She also has breast cancer with a previous right mastectomy. CAT scan of the knee did reveal sequelae of infection versus osseous metastatic disease. Objective - Vital Signs Vital signs: Vital Signs Temp 98.1 F 08/24/24 11:59 Pulse 78 08/24/24 11:59 Resp 18 08/24/24 11:59 BP 153/80 08/24/24 11:59 Pulse Ox 93 L 08/24/24 11:59 FiO2 Intake & Output 08/23/24 08/24/24 08/24/24 18:59 06:59 18:59 Intake Total 480 2210 Output Total 750 Balance 480 1460 Intake: Intake, IV Titration 900 Amount Sodium Chloride 0.9% 1, 900 000 ml @ 75 mls/hr IV . [id number] JOCELYNE Rx#:[id number] Oral 480 1310 Output: Urine 750 Other: Voiding Method Bedside Commode Bedside Commode Bedside Commode # Voids 2 3 # Bowel Movements 1 - Exam No acute distress, oriented 3. HEENT examination is grossly unremarkable. Mucous membranes are moist. No oral lesions. Neck supple. Full range of motion. No adenopathy thyromegaly or neck vein distention. Cardiovascular examination reveals regular rhythm rate. S1-S2 normal. No S3 or S4. No discernible murmur noted. Lungs reveal clear breath sounds. Breath sounds are equal bilaterally. No adventitious lung sounds including wheezes rhonchi or crackles. Abdomen soft bowel sounds are heard. No masses or tenderness. Extremities are intact. No cyanosis clubbing or edema. Skin is without rash or lesion. Neurologic examination is brief but nonfocal. - Labs CBC & Chem 7: 08/24/24 05:51 08/23/24 05:28 Labs: Abnormal Lab Results - Last 24 Hours (Table) 08/23/24 08/23/24 08/24/24 Range/Units 17:06 20:01 05:51 WBC 3.72 L (4.50-10.00) X 10*3/uL RBC 3.10 L (4.10-5.20) X 10*6/uL Hgb 8.3 L (12.0-15.0) g/dL Hct 26.0 L (37.2-46.3) % MCH 26.8 L (27.0-32.0) pg MCHC 31.9 L (32.0-37.0) g/dL RDW 17.5 H (11.5-14.5) % Plt Count 56 L (140-440) X 10*3/uL Monocytes # (Manual) 0.15 L (0.20-1.00) X 10*3/uL Eosinophils # (Manual) 0 L (0.04-0.35) X 10*3/uL NRBC/100 WBC Diff 0.38 H (0.00-0.01) X 10*3/uL Microcytosis (manual) 2+ A (None Seen) POC Glucose (mg/dL) 193 H 156 H (70-110) mg/dL 08/24/24 08/24/24 Range/Units 07:30 12:02 WBC (4.50-10.00) X 10*3/uL RBC (4.10-5.20) X 10*6/uL Hgb (12.0-15.0) g/dL Hct (37.2-46.3) % MCH (27.0-32.0) pg MCHC (32.0-37.0) g/dL RDW (11.5-14.5) % Plt Count (140-440) X 10*3/uL Monocytes # (Manual) (0.20-1.00) X 10*3/uL Eosinophils # (Manual) (0.04-0.35) X 10*3/uL NRBC/100 WBC Diff (0.00-0.01) X 10*3/uL Microcytosis (manual) (None Seen) POC Glucose (mg/dL) 126 H 196 H (70-110) mg/dL Assessment and Plan Plan: Acute right knee pain suspect secondary to metastatic disease. Breast cancer diagnosed in 2019, status post right mastectomy and radiation. CT findings are showing possible recurrence in the right breast. Mediastinal lymphadenopathy with small pulmonary nodules involving the right apex measuring up to 1 cm in size along with subpleural nodularities. Pancytopenia with no history of chemotherapy. Chronic back pain. Chronic obstructive pulmonary disease. Former smoker. Obesity. Diabetes mellitus. Hyperlipidemia. Hypertension. Plan: Reviewed the CAT scan of the chest. Mediastinal lymph nodes are nonspecific, likely nonmalignant. The same is also for the right apical pulmonary nodule in the subpleural nodularities. Recommended outpatient PET scan. EBUS with mediastinal lymph node sampling if there is increased metabolic activity within the mediastinal lymph nodes. Respiratory status is stable. Continue Symbicort. Patient is currently on room air oxygen. Oncology follow-up.
--- NOTE | 2024-08-24 19:01 | P.PN ---
Subjective Progress Note Date: 08/24/24 No acute events. Reporting persisting pain in right knee but pain meds are helping manage her pain. Today, WBC 3.7, hgb 8.3, plt 56,000 Objective - Vital Signs Vital signs: Vital Signs Temp 98.7 F 08/24/24 07:31 Pulse 81 08/24/24 07:31 Resp 20 08/24/24 07:31 BP 163/81 08/24/24 07:31 Pulse Ox 95 08/24/24 07:31 FiO2 Intake & Output 08/23/24 08/24/24 08/24/24 18:59 06:59 18:59 Intake Total 480 2210 Output Total 750 Balance 480 1460 Intake: Intake, IV Titration 900 Amount Sodium Chloride 0.9% 1, 900 000 ml @ 75 mls/hr IV . [id number] JOCELYNE Rx#:[id number] Oral 480 1310 Output: Urine 750 Other: Voiding Method Bedside Commode Bedside Commode Bedside Commode # Voids 2 3 # Bowel Movements 1 - Constitutional General appearance: Present: no acute distress - EENT Eyes: Present: EOMI ENT: Present: hearing grossly normal - Respiratory Details: breathing is even and unlabored - Cardiovascular Details: skin warm and dry - Integumentary Integumentary: Absent: cyanotic - Psychiatric Psychiatric: Present: A&O x's 3 - Labs CBC & Chem 7: 08/24/24 05:51 08/23/24 05:28 Labs: Abnormal Lab Results - Last 24 Hours (Table) 08/23/24 08/23/24 08/23/24 Range/Units 12:14 17:06 20:01 WBC (4.50-10.00) X 10*3/uL RBC (4.10-5.20) X 10*6/uL Hgb (12.0-15.0) g/dL Hct (37.2-46.3) % MCH (27.0-32.0) pg MCHC (32.0-37.0) g/dL RDW (11.5-14.5) % Plt Count (140-440) X 10*3/uL Monocytes # (Manual) (0.20-1.00) X 10*3/uL Eosinophils # (Manual) (0.04-0.35) X 10*3/uL NRBC/100 WBC Diff (0.00-0.01) X 10*3/uL Microcytosis (manual) (None Seen) POC Glucose (mg/dL) 126 H 193 H 156 H (70-110) mg/dL 08/24/24 08/24/24 Range/Units 05:51 07:30 WBC 3.72 L (4.50-10.00) X 10*3/uL RBC 3.10 L (4.10-5.20) X 10*6/uL Hgb 8.3 L (12.0-15.0) g/dL Hct 26.0 L (37.2-46.3) % MCH 26.8 L (27.0-32.0) pg MCHC 31.9 L (32.0-37.0) g/dL RDW 17.5 H (11.5-14.5) % Plt Count 56 L (140-440) X 10*3/uL Monocytes # (Manual) 0.15 L (0.20-1.00) X 10*3/uL Eosinophils # (Manual) 0 L (0.04-0.35) X 10*3/uL NRBC/100 WBC Diff 0.38 H (0.00-0.01) X 10*3/uL Microcytosis (manual) 2+ A (None Seen) POC Glucose (mg/dL) 126 H (70-110) mg/dL Assessment and Plan (1) Pancytopenia Current Visit: Yes Status: Acute Priority: High Code(s): D61.818 - OTHER PANCYTOPENIA SNOMED Code(s): 696726058 (2) Right knee pain Current Visit: Yes Status: Acute Priority: High Code(s): M25.561 - PAIN IN RIGHT KNEE SNOMED Code(s): 0964536809 (3) Breast cancer Current Visit: Yes Status: Acute Priority: High Code(s): C50.919 - MALIGNANT NEOPLASM OF UNSP SITE OF UNSPECIFIED FEMALE BREAST SNOMED Code(s): 511773017 (4) Chronic pain Current Visit: Yes Status: Acute Priority: Medium Code(s): G89.29 - OTHER CHRONIC PAIN SNOMED Code(s): 80445664 Plan: Rt knee pain -Been worsening since February. Patient had a nuclear medicine bone scan 03/12/2024, the impression reports right knee tibial metaphysis greater than left knee and given the history, infection felt more so than loosening of the hardware. -CT right knee showing anterior tibial fracture -Orthopedics following, no surgical intervention planned at this time Chronic back pain -Pt has chronic back pain, follows with pain mgmt. She reports that her m edications have not been sent in to her pharmacy -Pain management consulted Hx ER/OR positive, HER2 neg breast cancer, diagnosed 2019 -Patient had surgery, Oncotype score was 21, unclear if any significant benefit from receiving adjuvant chemotherapy so, pt was recommended radiation and AI. Patient completed radiation therapy. She has taken AI periodically over the last 4 years. -CT chest showing 10.7 x 8.4 cm possible postmasectomy seroma, diffuse osteosclerosis throughout bony structures, mild paravetebral soft tissue thickening at the T9 level, and mediastinal and hilar nodes measuring up to 1.8cm and couple pulm nodules measuring up to 1cm. On exam nothing abnormal felt on the right chest wall, no skin changes noted to right breast and no LAD bilateral axilla. -Tumor markers are elevated, but at this level they are non-specific -NM bone scan showing diffuse uptake identified within the axial and appendicular skeleton. -CT abdomen pelvis with contrast revealed diffuse osseous metastatic disease. No greater than 1 cm lymph nodes noted to suggest intra-abdominal metastatic disease. Subacute fracture of the left 11th rib. Nodular contour to liver, p ossible cirrhosis. General surgery has been consulted for right breast findings noted on CTA chest. Case was discussed with surgery team, mass of right breast thought to be consistent with seroma. -Consult placed to pulmonology for evaluation for bronch/biopsy of mediastinal/hilar LAD Above findings and plan discussed with patient, she was agreeable to the same Pancytopenia -New onset. CBC in Sept was normal -Pancytopenia workup ordered. As of note, patient did NOT receive any chemotherapy. DDx include primary bone marrow disorder, metastatic breast cancer infiltrating the bone marrow, chronic inflammation, infection. -Pancytopenia work up ordered -Iron studies consistent with anemia of inflammation. No Vit B12 or folate def. noted. RF/HANNAH negative. ESR elevated at 48. K/L LCs elevated, but normal ratio at 1.47. SPEP and immunofixation pending. Further recs pending completion of wo rkup -Transfuse for hemoglobin less than 7 or if symptomatic. Transfuse for platelets less than 10,000 or if patient is symptomatic. WBC/ANC not normal but adequate at this time
[2024-08-24 20:15] LABS: Glucose,Whole Blood 158 mg/dL (70-110)
[2024-08-24] MEDS: HYDROcodone/APAP 10-325MG 1 EACH TAB PO PRN (20:21)
--- NOTE | 2024-08-24 22:41 | P.PN ---
Subjective Progress Note Date: 08/24/24 Patient evaluated today sitting up in the chair. Her main complaint today is severe pain to her right knee. There is right anterior tibial knee fracture with a prior prosthesis. Oncology recommending no surgical intervention at this time secondary to patient's underlying conditions and the pancytopenia. Hemoglobin today was 6.8 and patient will receive 1 unit of packed red blood cells. Patient does report chronic back pain however states that the knee pain is what is bothering her the most. Of note patient underwent a bone scan which reveals diffuse uptake identified within the axial and appendicular skeleton corresponding to CT findings. There is a concern for metastasis versus other etiologies. The abdominal pelvis CT reveals subacute fracture of the left from T11 with incomplete osseous fusion at this fracture site. A nodular contour to the liver correlate for cirrhosis. There is diffuse osseous metastatic disease involving nearly every osseous structure per the CT report. There are no greater than 1.0 cm short axis lymph nodes suggesting intra-abdominal metastatic disease. Surgery following and felt that there was no need for a breast biopsy at this time and felt that the CT thorax revealed a large seroma at the previous mastectomy site. Pulmonary was consulted for possible bronchoscopy and LN biopsy. Did discuss with the patient that orthopedic had recommended follow-up with orthopedic oncology which would need to be done at a tertiary care facility and at this time patient is extremely anxious about this and states that she does not want to be that far from her family as they have no reliable transportation at this time. Patient has declined to get up with physical therapy at this time states that she has family support who can assist as needed however there is concern that she is currently nonweightbearing secondary to the pain and this would impact her discharge planning. 08/23/2024 Patient is evaluated in follow-up on the medical floor. Patient is pending vision from pulmonary to undergo bronchoscopy with biopsy per oncology recommendations. Clinically unable to determine whether there is bony metastasis or not in the spine based on imaging reports. Pending follow-up by orthopedics regarding the right knee fracture and further recommendations for surgical intervention is at this time patient is currently nonweightbearing and continues to have excruciating pain requiring IV and oral pain medications. Blood work today reveals a white blood cell count of 3.47, hemoglobin of 7.6, platelet count of 55. Electrolytes and renal function remained stable. 08/24/2024 Patient is seen in follow-up today with multiple consultations following. Awaiting input and recommendations from pulmonary for possible bronchoscopy with biopsy. Oncology following and would like biopsy to determine treatment plan moving forward. Patient was seen and evaluated by orthopedics recommending conservative management with no plans of surgery at this time and PT/OT therapy evaluation. Patient continues to have significant pain although does have episodes of nausea with 1 episode of vomiting today post Dilaudid. Will attempt to adjust pain medications and limit narcotic use. Continue with antinausea medication and supportive care. Review of Systems Constitutional: Denied any fatigue denied any fever. Cardio vascular: denied any chest pain, palpitations Gastrointestinal: Reports occasional nausea, reports 1 episode of vomiting after receiving Dilaudid, diarrhea Pulmonary: Denied any shortness of breath cough Neurologic denied any new focal deficits, reports right knee pain All inpatient medications were reviewed and appropriate changes in these medications as dictated in the interval history and assessment and plan. PHYSICAL EXAMINATION: GENERAL: The patient is alert and oriented x3, not in any acute distress. Well developed, elderly appearing, morbidly obese HEENT: Pupils are round and equally reacting to light. EOMI. No scleral icterus. No conjunctival pallor. Normocephalic, atraumatic. No pharyngeal erythema. No thyromegaly. CARDIOVASCULAR: S1 and S2 muffled PULMONARY: Diminished breath sounds bilaterally otherwise chest is clear to auscultation, no wheezing or crackles. ABDOMEN: Soft, obese, nontender, nondistended, normoactive bowel sounds. No palpable organomegaly. MUSCULOSKELETAL: No joint swelling or deformity. EXTREMITIES: No cyanosis, clubbing, or pedal edema. NEUROLOGICAL: Gross neurological examination did not reveal any focal deficits. SKIN: No rashes. Assessment and plan Acute right knee pain with an anterior tib knee fracture orthopedics recommended follow-up with an orthopedic oncologist. Patient does have a prior right knee arthroplasty with prosthetic noted on imaging this could be due to metastatic disease unable to officially rule it out. Also possibility underlying infection. Breast cancer diagnosed in 2019 with right mastectomy and radiation CT findings show a seroma versus reoccurrence of cancer in the right breast. General surgery felt this was more likely a seroma and no need for biopsy at this time Mediastinal lymphadenopathy with small pulmonary nodules pancytopenia no history of chemotherapy in the past Chronic back pain with CT and bone scan suggesting diffuse metastatic osseous disease although unable to clinically diagnose Chronic obstructive pulmonary disease with no acute exacerbation Morbid obesity with a BMI of 40.8 Diabetes mellitus type 2 Hypertension Hyperlipidemia GI prophylaxis DVT prophylaxis Full code Plan: Patient is status post 1 unit of packed red blood cells no signs of active bleeding. Hemoglobin above 7 today Oncology following regarding the pancytopenia and concern for metastatic/osseous bone disease recommending bronchoscopy and biopsy and pulmonary following. Pulmonary has evaluated the patient with no plans of bronchoscopy or biopsy in the outpatient PET scan and follow-up outpatient. Patient is on room air and in no respiratory distress. Orthopedics recommending to follow-up with an orthopedic oncologist on discharge and patient is hesitant about this because she would need to travel for tertiary care. They have signed off with no plans for surgical intervention of the right knee at this time. Continue pain management for the right knee pain PT OT consulted and patient did refuse to work with them she is currently toe touch weightbearing. Pulmonary was consulted as mentioned previously and evaluated CT scan with no immediate plans of bronchoscopy and recommends outpatient PET scan regarding mediastinal and hilar lymph nodes Repeat blood work in the morning Will discuss further with oncology regarding discharge planning possibly in the next 24 hours The impression and plan of care has been dictated by Sonal Romero, Nurse Practitioner as directed. Dr. Joesph MD I have performed a history and physical examination and medical decision making of this patient, discussed the same with the dictator, and agree with the dictators assessment and plan as written, documented as a scribe. Based on total visit time, I have performed more than 50% of this visit. Objective - Vital Signs Vital signs: Vital Signs Temp 98.7 F 08/24/24 07:31 Pulse 81 08/24/24 07:31 Resp 20 08/24/24 07:31 BP 163/81 08/24/24 07:31 Pulse Ox 95 08/24/24 07:31 FiO2 Intake & Output 08/23/24 08/24/24 08/24/24 18:59 06:59 18:59 Intake Total 480 2210 Output Total 750 Balance 480 1460 Intake: Intake, IV Titration 900 Amount Sodium Chloride 0.9% 1, 900 000 ml @ 75 mls/hr IV . [id number] JOCELYNE Rx#:[id number] Oral 480 1310 Output: Urine 750 Other: Voiding Method Bedside Commode Bedside Commode # Voids 2 3 # Bowel Movements 1 - Labs CBC & Chem 7: 08/24/24 05:51 08/23/24 05:28 Labs: Abnormal Lab Results - Last 24 Hours (Table) 08/23/24 08/23/24 08/23/24 Range/Units 05:28 05:34 12:14 WBC 3.47 L (4.50-10.00) X 10*3/uL RBC 2.96 L (4.10-5.20) X 10*6/uL Hgb 7.6 L (12.0-15.0) g/dL Hct 25.2 L (37.2-46.3) % MCH 25.7 L (27.0-32.0) pg MCHC 30.2 L (32.0-37.0) g/dL RDW 17.4 H (11.5-14.5) % Plt Count 55 L (140-440) X 10*3/uL Monocytes # (Manual) 0.07 L (0.20-1.00) X 10*3/uL NRBC/100 WBC Diff 0.33 H (0.00-0.01) X 10*3/uL Glucose 139 H (70-110) mg/dL POC Glucose (mg/dL) 126 H (70-110) mg/dL Calcium 8.5 L (8.7-10.3) mg/dL 08/23/24 08/23/24 08/24/24 Range/Units 17:06 20:01 07:30 WBC (4.50-10.00) X 10*3/uL RBC (4.10-5.20) X 10*6/uL Hgb (12.0-15.0) g/dL Hct (37.2-46.3) % MCH (27.0-32.0) pg MCHC (32.0-37.0) g/dL RDW (11.5-14.5) % Plt Count (140-440) X 10*3/uL Monocytes # (Manual) (0.20-1.00) X 10*3/uL NRBC/100 WBC Diff (0.00-0.01) X 10*3/uL Glucose (70-110) mg/dL POC Glucose (mg/dL) 193 H 156 H 126 H (70-110) mg/dL Calcium (8.7-10.3) mg/dL
[2024-08-24] MEDS ORDERED: HYDROmorphone 0.5 MG/0.5 ML SYRINGE IVP PRN (22:46)
[2024-08-25 07:22] LABS: Glucose,Whole Blood 88 mg/dL (70-110)
--- NOTE | 2024-08-25 07:30 | P.PN ---
Progress Note - Text Progress Note Date: 08/24/24 Patient seen and examined. No acute events overnight. Patient continues to complain of severe knee pain General Exam General appearance: alert, in no apparent distress Head exam: Present: atraumatic, normocephalic, normal inspection Eye exam: Present: normal appearance, PERRL, EOMI. Absent: scleral icterus, conjunctival injection, periorbital swelling ENT exam: Present: normal exam, mucous membranes moist Neck exam: Present: normal inspection. Absent: tenderness, meningismus, lymphadenopathy Respiratory exam: Present: normal lung sounds bilaterally. Absent: respiratory distress, wheezes, rales, rhonchi, stridor Cardiovascular Exam: Present: regular rate, normal rhythm, normal heart sounds. Absent: systolic murmur, diastolic murmur, rubs, gallop, clicks GI/Abdominal exam: Present: soft, normal bowel sounds. Absent: distended, tenderness, guarding, rebound, rigid Extremities exam: Present: normal inspection, full ROM, normal capillary refill. Absent: tenderness, pedal edema, joint swelling, calf tenderness Back exam: Present: normal inspection Neurological exam: Present: alert, oriented X3, CN II-XII intact Psychiatric exam: Present: normal affect, normal mood Skin exam: Present: warm, dry, intact, normal color. Absent: rash 69 year old female with history of Mastectomy for Breast Cancer. CT Thorax performed which showed a large seroma at previous mastectomy site -No role for breast biopsy based on imaging. Discussed with Oncology -Pulmonology recs outpatient PET -Ortho recs regarding knee pain -No acute surgical intervention planned Surendra Mason DO [facility] [phone]
[2024-08-25 07:55] LABS: Anisocytosis Slight; HCT 23.4 % (34.0-46.0); HGB 7.8 gm/dL (11.4-16.0); Hypochromasia Slight; MCH 27.6 pg (25.0-35.0); MCHC 33.2 g/dL (31.0-37.0); MCV 83.2 fL (80.0-100.0); Mean Platelet Volume 11.1; Poikilocytosis Moderate; RBC 2.81 m/uL (3.80-5.40); RDW 18.4 % (11.5-15.5)
[2024-08-25 08:01] LABS: Platelet Count 61 k/uL (150-450)
[2024-08-25 08:33] LABS: African American GFR (CKD) >90 (>60 ml/min/1.73 sqM); Anion Gap 7 mmol/L; Blood Urea Nitrogen 11 mg/dL (7-17); Calcium 8.5 mg/dL (8.4-10.2); Carbon Dioxide 23 mmol/L (22-30); Chloride 105 mmol/L (98-107); Glucose 75 mg/dL (74-99); Magnesium 1.9 mg/dL (1.6-2.3); Non-African American GFR(CKD) 82 (>60 ml/min/1.73 sqM); Potassium 4.1 mmol/L (3.5-5.1); Sodium 135 mmol/L (137-145)
[2024-08-25 08:39] LABS: Albumin 2.85 g/dL (3.80-4.90); Gamma Globulin 0.97 g/dL (0.70-1.50)
[2024-08-25 12:06] LABS: Glucose,Whole Blood 177 mg/dL (70-110)
[2024-08-25 12:19] LABS: Band Neutrophils % 3 %; Metamyelocytes % 3 %; Myelocytes # (M) 0.03 k/uL (0); Myelocytes % 1 %; Neutrophils % (M) 62 %; Nucleated Red Blood Cells 6 /100 WBC (0-0); Total Cells Counted 200
[2024-08-25 12:20] LABS: Eosinophils # (M) 0.06 k/uL (0-0.7); Monocytes # (M) 0.16 k/uL (0-1.0); WBC 3.2 k/uL (3.8-10.6)
[2024-08-25 12:21] LABS: Polychromasia Present
--- NOTE | 2024-08-25 12:28 | P.PN ---
Subjective Progress Note Date: 08/25/24 Patient evaluated today sitting up in the chair. Her main complaint today is severe pain to her right knee. There is right anterior tibial knee fracture with a prior prosthesis. Oncology recommending no surgical intervention at this time secondary to patient's underlying conditions and the pancytopenia. Hemoglobin today was 6.8 and patient will receive 1 unit of packed red blood cells. Patient does report chronic back pain however states that the knee pain is what is bothering her the most. Of note patient underwent a bone scan which reveals diffuse uptake identified within the axial and appendicular skeleton corresponding to CT findings. There is a concern for metastasis versus other etiologies. The abdominal pelvis CT reveals subacute fracture of the left from T11 with incomplete osseous fusion at this fracture site. A nodular contour to the liver correlate for cirrhosis. There is diffuse osseous metastatic disease involving nearly every osseous structure per the CT report. There are no greater than 1.0 cm short axis lymph nodes suggesting intra-abdominal metastatic disease. Surgery following and felt that there was no need for a breast biopsy at this time and felt that the CT thorax revealed a large seroma at the previous mastectomy site. Pulmonary was consulted for possible bronchoscopy and LN biopsy. Did discuss with the patient that orthopedic had recommended follow-up with orthopedic oncology which would need to be done at a tertiary care facility and at this time patient is extremely anxious about this and states that she does not want to be that far from her family as they have no reliable transportation at this time. Patient has declined to get up with physical therapy at this time states that she has family support who can assist as needed however there is concern that she is currently nonweightbearing secondary to the pain and this would impact her discharge planning. 08/23/2024 Patient is evaluated in follow-up on the medical floor. Patient is pending vision from pulmonary to undergo bronchoscopy with biopsy per oncology recommendations. Clinically unable to determine whether there is bony metastasis or not in the spine based on imaging reports. Pending follow-up by orthopedics regarding the right knee fracture and further recommendations for surgical intervention is at this time patient is currently nonweightbearing and continues to have excruciating pain requiring IV and oral pain medications. Blood work today reveals a white blood cell count of 3.47, hemoglobin of 7.6, platelet count of 55. Electrolytes and renal function remained stable. 08/24/2024 Patient is seen in follow-up today with multiple consultations following. Awaiting input and recommendations from pulmonary for possible bronchoscopy with biopsy. Oncology following and would like biopsy to determine treatment plan moving forward. Patient was seen and evaluated by orthopedics recommending conservative management with no plans of surgery at this time and PT/OT therapy evaluation. Patient continues to have significant pain although does have episodes of nausea with 1 episode of vomiting today post Dilaudid. Will attempt to adjust pain medications and limit narcotic use. Continue with antinausea medication and supportive care. 08/25/2024 Patient is seen in follow-up today initially scheduled for discharge as pulmonary did evaluate the patient with no plans of bronchoscopy at this time recommending outpatient PET scan. Orthopedics has evaluated with no plans of surgical intervention recommending continued PT/OT therapy. Patient per nursing staff is often toe touching on that lower extremity although having significant pain. Patient is concerned she will not be able to manage at home and will ask for repeat reevaluation from PT/OT therapy as patient may benefit from ECF for strength and mobility prior to further follow-up with oncology. Patient is afebrile with no reports of chest pain or shortness of breath. Patient also reports she follows with pain management outpatient and has been evaluated by them reporting her pain is not controlled. Will discontinue Dilaudid and adjust other medications accordingly. Patient reports she follows with Dr. Cross in the outpatient setting with a pain contract although has difficulty making it to his appointments as well. Review of Systems: Constitutional: Denied any fatigue denied any fever. Cardio vascular: denied any chest pain, palpitations Gastrointestinal: Reports occasional nausea, reports 1 episode of vomiting after receiving Dilaudid, diarrhea Pulmonary: Denied any shortness of breath cough Neurologic denied any new focal deficits, reports right knee pain All inpatient medications were reviewed and appropriate changes in these medications as dictated in the interval history and assessment and plan. PHYSICAL EXAMINATION: GENERAL: The patient is alert and oriented x3, not in any acute distress. Well developed, elderly appearing, morbidly obese HEENT: Pupils are round and equally reacting to light. EOMI. No scleral icterus. No conjunctival pallor. Normocephalic, atraumatic. No pharyngeal erythema. No thyromegaly. CARDIOVASCULAR: S1 and S2 muffled PULMONARY: Diminished breath sounds bilaterally otherwise chest is clear to auscultation, no wheezing or crackles. ABDOMEN: Soft, obese, nontender, nondistended, normoactive bowel sounds. No palpable organomegaly. MUSCULOSKELETAL: No joint swelling or deformity. EXTREMITIES: No cyanosis, clubbing, or pedal edema. NEUROLOGICAL: Gross neurological examination did not reveal any focal deficits. SKIN: No rashes. Assessment: Acute right knee pain with an anterior tib knee fracture orthopedics recommended follow-up with an orthopedic oncologist. Patient does have a prior right knee arthroplasty with prosthetic noted on imaging this could be due to metastatic disease unable to officially rule it out. Also possibility underlying infection. Breast cancer diagnosed in 2019 with right mastectomy and radiation CT findings show a seroma versus reoccurrence of cancer in the right breast. General surgery felt this was more likely a seroma and no need for biopsy at this time Mediastinal lymphadenopathy with small pulmonary nodules pancytopenia no history of chemotherapy in the past Chronic back pain with CT and bone scan suggesting diffuse metastatic osseous disease although unable to clinically diagnose Chronic obstructive pulmonary disease with no acute exacerbation Generalized weakness with gait dysfunction Morbid obesity with a BMI of 40.8 Diabetes mellitus type 2 Hypertension Hyperlipidemia GI prophylaxis DVT prophylaxis Full code Plan: Patient is status post 1 unit of packed red blood cells no signs of active bleeding. Hemoglobin remains above 7 today Oncology following regarding the pancytopenia and concern for metastatic/osseous bone disease recommending bronchoscopy and biopsy and pulmonary following. Pulmonary has evaluated the patient with no plans of bronchoscopy or biopsy in the outpatient PET scan and follow-up outpatient. Patient is on room air and in no respiratory distress. Orthopedics recommending to follow-up with an orthopedic oncologist on discharge and patient is hesitant about this because she would need to travel for tertiary care. They have signed off with no plans for surgical intervention of the right knee at this time. Continue pain management for the right knee pain PT OT consulted and patient did refuse to work with them she is currently toe touch weightbearing. Patient is having extreme pain and difficulty with ambulation and is now agreeable to possible ECF. Social work consulted and will need updated PT/OT therapy notes as patient may benefit from continued strength and mobility at ECF prior to returning home. Patient will require insurance authorization after updated PT/OT therapy notes are available. Pulmonary following as mentioned previously and evaluated CT scan with no immediate plans of bronchoscopy and recommends outpatient PET scan regarding mediastinal and hilar lymph nodes Possible discharge planning in the next 24 to 48 hours to ECF. The impression and plan of care has been dictated by Sonal Heather, Nurse Practitioner as directed. Dr. Joesph MD I have performed a history and physical examination and medical decision making of this patient, discussed the same with the dictator, and agree with the dictators assessment and plan as written, documented as a scribe. Based on total visit time, I have performed more than 50% of this visit. Objective - Vital Signs Vital signs: Vital Signs Temp 98.7 F 08/25/24 07:18 Pulse 92 08/25/24 07:18 Resp 16 08/25/24 07:18 BP 171/81 08/25/24 07:18 Pulse Ox 93 L 08/25/24 07:18 FiO2 Intake & Output 08/24/24 08/25/24 08/25/24 18:59 06:59 18:59 Intake Total 540 Output Total 500 Balance 40 Intake: Oral 540 Output: Urine 500 Other: Voiding Method Bedside Commode Bedside Commode # Voids 2 1 # Bowel Movements 1 - Labs CBC & Chem 7: 08/25/24 06:39 08/25/24 06:39 Labs: Abnormal Lab Results - Last 24 Hours (Table) 08/20/24 08/24/24 08/24/24 Range/Units 09:49 05:51 12:02 WBC 3.72 L (4.50-10.00) X 10*3/uL RBC 3.10 L (4.10-5.20) X 10*6/uL Hgb 8.3 L (12.0-15.0) g/dL Hct 26.0 L (37.2-46.3) % MCH 26.8 L (27.0-32.0) pg MCHC 31.9 L (32.0-37.0) g/dL RDW 17.5 H (11.5-14.5) % Plt Count 56 L (140-440) X 10*3/uL Monocytes # (Manual) 0.15 L (0.20-1.00) X 10*3/uL Eosinophils # (Manual) 0 L (0.04-0.35) X 10*3/uL NRBC/100 WBC Diff 0.38 H (0.00-0.01) X 10*3/uL Microcytosis (manual) 2+ A (None Seen) Sodium (137-145) mmol/L POC Glucose (mg/dL) 196 H (70-110) mg/dL Albumin (PEP) 2.85 L (3.80-4.90) g/dL Iwprz-0-Pfyxqpdsn 0.47 L (0.60-1.00) g/dL 08/24/24 08/24/24 08/25/24 Range/Units 17:06 20:14 06:39 WBC 3.4 L (4.50-10.00) X 10*3/uL RBC 2.81 L (4.10-5.20) X 10*6/uL Hgb 7.8 L (12.0-15.0) g/dL Hct 23.4 L (37.2-46.3) % MCH (27.0-32.0) pg MCHC (32.0-37.0) g/dL RDW 18.4 H (11.5-14.5) % Plt Count 61 L (140-440) X 10*3/uL Monocytes # (Manual) (0.20-1.00) X 10*3/uL Eosinophils # (Manual) (0.04-0.35) X 10*3/uL NRBC/100 WBC Diff (0.00-0.01) X 10*3/uL Microcytosis (manual) (None Seen) Sodium (137-145) mmol/L POC Glucose (mg/dL) 169 H 158 H (70-110) mg/dL Albumin (PEP) (3.80-4.90) g/dL Ixwjp-6-Unyuhptai (0.60-1.00) g/dL 08/25/24 Range/Units 06:39 WBC (4.50-10.00) X 10*3/uL RBC (4.10-5.20) X 10*6/uL Hgb (12.0-15.0) g/dL Hct (37.2-46.3) % MCH (27.0-32.0) pg MCHC (32.0-37.0) g/dL RDW (11.5-14.5) % Plt Count (140-440) X 10*3/uL Monocytes # (Manual) (0.20-1.00) X 10*3/uL Eosinophils # (Manual) (0.04-0.35) X 10*3/uL NRBC/100 WBC Diff (0.00-0.01) X 10*3/uL Microcytosis (manual) (None Seen) Sodium 135 L (137-145) mmol/L POC Glucose (mg/dL) (70-110) mg/dL Albumin (PEP) (3.80-4.90) g/dL Dqlyn-8-Bnezgkugq (0.60-1.00) g/dL Microbiology - Last 24 Hours (Table) 08/23/24 17:34 Blood Culture - Preliminary Blood
[2024-08-25 13:21] VITALS: BMI 40.8
--- NOTE | 2024-08-25 14:19 | P.PN ---
Subjective Progress Note Date: 08/25/24 SURGICAL PROGRESS NOTE CHIEF COMPLAINT: Leg pain HISTORY OF PRESENT ILLNESS: Patient continues to complain of knee pain. She reports that they are adjusting her pain medication. They are also working on her being discharged to rehab possibly tomorrow. Patient denies any breast pain. Denies any swelling or drainage at the right mastectomy site. Afebrile. WBC 3.2 Hgb 7.8 platelets 61 PHYSICAL EXAM: VITAL SIGNS: Reviewed. GENERAL: Well-developed in no acute distress. Breast:Right mastectomy surgical scar is healed. There is no erythema. No drainage. Nontender. No swelling. The tissue is soft. ABDOMEN: Soft. Nondistended. Nontender. NEUROLOGIC: Alert and oriented. Cranial nerves II through XII grossly intact. ASSESSMENT/Plan: 69 year old female with history of Mastectomy for Breast Cancer. CT Thorax performed which showed a large seroma at previous mastectomy site -No role for breast biopsy based on imaging. Surgeon discussed with Oncology -Pulmonology recs outpatient PET -Ortho recs regarding knee pain -No acute surgical intervention planned -Surgical service will sign off. Please call with any questions or concerns. Physician Linux Network Engineer note has been reviewed by physician. Signing provider agrees with the documented findings, assessment, and plan of care. Objective - Vital Signs Vital signs: Vital Signs Temp 98.3 F 08/25/24 12:00 Pulse 87 08/25/24 12:00 Resp 16 08/25/24 12:00 BP 125/74 08/25/24 12:00 Pulse Ox 96 08/25/24 12:00 FiO2 Intake & Output 08/24/24 08/25/24 08/25/24 18:59 06:59 18:59 Intake Total 540 Output Total 500 Balance 40 Weight 101.151 kg Intake: Oral 540 Output: Urine 500 Other: Voiding Method Bedside Commode Bedside Commode Bedside Commode # Voids 2 1 # Bowel Movements 1 - Labs CBC & Chem 7: 08/25/24 06:39 08/25/24 06:39 Labs: Abnormal Lab Results - Last 24 Hours (Table) 08/20/24 08/24/24 08/24/24 Range/Units 09:49 17:06 20:14 WBC (3.8-10.6) k/uL RBC (3.80-5.40) m/uL Hgb (11.4-16.0) gm/dL Hct (34.0-46.0) % RDW (11.5-15.5) % Plt Count (150-450) k/uL Lymphocytes # (Manual) (1.0-4.8) k/uL Metamyelocytes # (Man) (0) k/uL Myelocytes # (Manual) (0) k/uL Nucleated RBCs (0-0) /100 WBC Sodium (137-145) mmol/L POC Glucose (mg/dL) 169 H 158 H (70-110) mg/dL Albumin (PEP) 2.85 L (3.80-4.90) g/dL Pmxuu-6-Cuvwheydb 0.47 L (0.60-1.00) g/dL 08/25/24 08/25/24 08/25/24 Range/Units 06:39 06:39 12:04 WBC 3.2 L (3.8-10.6) k/uL RBC 2.81 L (3.80-5.40) m/uL Hgb 7.8 L (11.4-16.0) gm/dL Hct 23.4 L (34.0-46.0) % RDW 18.4 H (11.5-15.5) % Plt Count 61 L (150-450) k/uL Lymphocytes # (Manual) 0.80 L (1.0-4.8) k/uL Metamyelocytes # (Man) 0.10 H (0) k/uL Myelocytes # (Manual) 0.03 H (0) k/uL Nucleated RBCs 6 H (0-0) /100 WBC Sodium 135 L (137-145) mmol/L POC Glucose (mg/dL) 177 H (70-110) mg/dL Albumin (PEP) (3.80-4.90) g/dL Kelrn-1-Duosdxgga (0.60-1.00) g/dL Microbiology - Last 24 Hours (Table) 08/23/24 17:34 Blood Culture - Preliminary Blood
[2024-08-25 17:15] LABS: Glucose,Whole Blood 182 mg/dL (70-110)
--- NOTE | 2024-08-25 19:18 | P.PN ---
Subjective Progress Note Date: 08/25/24 No acute events. Reporting persisting pain in right knee but pain meds are helping manage her pain. Today, WBC 3.4, hgb 7.8, plt 61,000 Objective - Vital Signs Vital signs: Vital Signs Temp 98.3 F 08/25/24 12:00 Pulse 87 08/25/24 12:00 Resp 16 08/25/24 12:00 BP 125/74 08/25/24 12:00 Pulse Ox 96 08/25/24 12:00 FiO2 Intake & Output 08/24/24 08/25/24 08/25/24 18:59 06:59 18:59 Intake Total 540 Output Total 500 Balance 40 Intake: Oral 540 Output: Urine 500 Other: Voiding Method Bedside Commode Bedside Commode Bedside Commode # Voids 2 1 # Bowel Movements 1 - Constitutional General appearance: Present: no acute distress, obese - EENT Eyes: Present: anicteric sclerae, EOMI ENT: Present: hearing grossly normal - Respiratory Details: breathing is even and unlabored - Cardiovascular Details: skin warm and dry - Integumentary Integumentary: Absent: cyanotic - Musculoskeletal Musculoskeletal: Present: generalized weakness - Psychiatric Psychiatric: Present: A&O x's 3 - Labs CBC & Chem 7: 08/25/24 06:39 08/25/24 06:39 Labs: Abnormal Lab Results - Last 24 Hours (Table) 08/20/24 08/24/24 08/24/24 Range/Units 09:49 17:06 20:14 WBC (3.8-10.6) k/uL RBC (3.80-5.40) m/uL Hgb (11.4-16.0) gm/dL Hct (34.0-46.0) % RDW (11.5-15.5) % Plt Count (150-450) k/uL Lymphocytes # (Manual) (1.0-4.8) k/uL Metamyelocytes # (Man) (0) k/uL Myelocytes # (Manual) (0) k/uL Nucleated RBCs (0-0) /100 WBC Sodium (137-145) mmol/L POC Glucose (mg/dL) 169 H 158 H (70-110) mg/dL Albumin (PEP) 2.85 L (3.80-4.90) g/dL Gbcyd-6-Shzevbend 0.47 L (0.60-1.00) g/dL 08/25/24 08/25/24 08/25/24 Range/Units 06:39 06:39 12:04 WBC 3.2 L (3.8-10.6) k/uL RBC 2.81 L (3.80-5.40) m/uL Hgb 7.8 L (11.4-16.0) gm/dL Hct 23.4 L (34.0-46.0) % RDW 18.4 H (11.5-15.5) % Plt Count 61 L (150-450) k/uL Lymphocytes # (Manual) 0.80 L (1.0-4.8) k/uL Metamyelocytes # (Man) 0.10 H (0) k/uL Myelocytes # (Manual) 0.03 H (0) k/uL Nucleated RBCs 6 H (0-0) /100 WBC Sodium 135 L (137-145) mmol/L POC Glucose (mg/dL) 177 H (70-110) mg/dL Albumin (PEP) (3.80-4.90) g/dL Ihoxn-3-Ssbaupvds (0.60-1.00) g/dL Microbiology - Last 24 Hours (Table) 08/23/24 17:34 Blood Culture - Preliminary Blood Assessment and Plan (1) Pancytopenia Current Visit: Yes Status: Acute Priority: High Code(s): D61.818 - OTHER PANCYTOPENIA SNOMED Code(s): 877669703 (2) Right knee pain Current Visit: Yes Status: Acute Priority: High Code(s): M25.561 - PAIN IN RIGHT KNEE SNOMED Code(s): 8112971169 (3) Breast cancer Current Visit: Yes Status: Acute Priority: High Code(s): C50.919 - MALIGNANT NEOPLASM OF UNSP SITE OF UNSPECIFIED FEMALE BREAST SNOMED Code(s): 128287814 (4) Chronic pain Current Visit: Yes Status: Acute Priority: Medium Code(s): G89.29 - OTHER CHRONIC PAIN SNOMED Code(s): 79459989 Plan: Rt knee pain -Been worsening since February. Patient had a nuclear medicine bone scan 03/12/2024, the impression reports right knee tibial metaphysis greater than left knee and given the history, infection felt more so than loosening of the hardware. -CT right knee showing anterior tibial fracture -Orthopedics following, no surgical intervention planned at this time -Patient having difficulty ambulating, will need rehab upon discharge. Case management working on placement Chronic back pain -Pt has chronic back pain, follows with pain mgmt. -Pain management following Hx ER/NH positive, HER2 neg breast cancer, diagnosed 2019 -Patient had surgery, Oncotype score was 21, unclear if any significant benefit from receiving adjuvant chemotherapy so, pt was recommended radiation and AI. Patient completed radiation therapy. She has taken AI periodically over the last 4 years. -CT chest showing 10.7 x 8.4 cm possible postmasectomy seroma, diffuse osteosclerosis throughout bony structures, mild paravetebral soft tissue thickening at the T9 level, and mediastinal and hilar nodes measuring up to 1.8cm and couple pulm nodules measuring up to 1cm. On exam nothing abnormal felt on the right chest wall, no skin changes noted to right breast and no LAD bilateral axilla. -Tumor markers are elevated, but at this level they are non-specific -NM bone scan showing diffuse uptake identified within the axial and appendicular skeleton. -CT abdomen pelvis with contrast revealed diffuse osseous metastatic disease. No greater than 1 cm lymph nodes noted to suggest intra-abdominal metastatic d isease. Subacute fracture of the left 11th rib. Nodular contour to liver, possible cirrhosis. General surgery has been consulted for right breast findings noted on CTA chest. Case was discussed with surgery team, mass of right breast thought to be consistent with seroma. -Consult placed to pulmonology for evaluation for bronch/biopsy of mediastinal/hilar LAD. Pulm recommending outpt PET CT -Will place referral to IR at [facility] for biopsy of T9 paravertebral soft tissue mass -Clinic f/u upon d/c from rehab Above findings and plan discussed with patient, she was agreeable to the same Oncological care will be on hold until discharged from SNF Pancytopenia -New onset. CBC in Apr was normal -Pancytopenia workup ordered. As of note, patient did NOT receive any chemotherapy. DDx include primary bone marrow disorder, metastatic breast cancer infiltrating the bone marrow, chronic inflammation, infection. -Pancytopenia work up ordered -Iron studies consistent with anemia of inflammation. No Vit B12 or folate def. noted. RF/HANNAH negative. ESR elevated at 48. K/L LCs elevated, but normal ratio at 1.47. SPEP showing M spike, 0.21, immunofixation pending. Findings consistent with MGUS. Will plan to continue to monitor in outpt setting -Noted cytopenias likely from tumor infiltration and reactive to acute inflammation. -Transfuse for hemoglobin less than 7 or if symptomatic. Transfuse for platelets less than 10,000 or if patient is symptomatic. WBC/ANC not normal but adequate at this time
[2024-08-25 19:58] LABS: Glucose,Whole Blood 165 mg/dL (70-110)
[2024-08-26] MEDS: SODIUM CHLORIDE 0.9% 1,000 ML IV SCH (05:40)
[2024-08-26 07:16] LABS: Glucose,Whole Blood 74 mg/dL (70-110)
[2024-08-26 12:20] LABS: Glucose,Whole Blood 162 mg/dL (70-110)
[2024-08-26] MEDS: MORPHINE SULFATE ER 30 MG TABLET PO PRN (16:05)
[2024-08-26 17:09] LABS: Glucose,Whole Blood 137 mg/dL (70-110)
[2024-08-26 20:35] LABS: Glucose,Whole Blood 168 mg/dL (70-110)
[2024-08-27 03:24] LABS: Glucose,Whole Blood 134 mg/dL (70-110)
--- NOTE | 2024-08-27 06:05 | P.PN ---
Subjective Progress Note Date: 08/26/24 Patient evaluated today sitting up in the chair. Her main complaint today is severe pain to her right knee. There is right anterior tibial knee fracture with a prior prosthesis. Oncology recommending no surgical intervention at this time secondary to patient's underlying conditions and the pancytopenia. Hemoglobin today was 6.8 and patient will receive 1 unit of packed red blood cells. Patient does report chronic back pain however states that the knee pain is what is bothering her the most. Of note patient underwent a bone scan which reveals diffuse uptake identified within the axial and appendicular skeleton corresponding to CT findings. There is a concern for metastasis versus other etiologies. The abdominal pelvis CT reveals subacute fracture of the left from T11 with incomplete osseous fusion at this fracture site. A nodular contour to the liver correlate for cirrhosis. There is diffuse osseous metastatic disease involving nearly every osseous structure per the CT report. There are no greater than 1.0 cm short axis lymph nodes suggesting intra-abdominal metastatic disease. Surgery following and felt that there was no need for a breast biopsy at this time and felt that the CT thorax revealed a large seroma at the previous mastectomy site. Pulmonary was consulted for possible bronchoscopy and LN biopsy. Did discuss with the patient that orthopedic had recommended follow-up with orthopedic oncology which would need to be done at a tertiary care facility and at this time patient is extremely anxious about this and states that she does not want to be that far from her family as they have no reliable transportation at this time. Patient has declined to get up with physical therapy at this time states that she has family support who can assist as needed however there is concern that she is currently nonweightbearing secondary to the pain and this would impact her discharge planning. 08/23/2024 Patient is evaluated in follow-up on the medical floor. Patient is pending vision from pulmonary to undergo bronchoscopy with biopsy per oncology recommendations. Clinically unable to determine whether there is bony metastasis or not in the spine based on imaging reports. Pending follow-up by orthopedics regarding the right knee fracture and further recommendations for surgical intervention is at this time patient is currently nonweightbearing and continues to have excruciating pain requiring IV and oral pain medications. Blood work today reveals a white blood cell count of 3.47, hemoglobin of 7.6, platelet count of 55. Electrolytes and renal function remained stable. 08/24/2024 Patient is seen in follow-up today with multiple consultations following. Awaiting input and recommendations from pulmonary for possible bronchoscopy with biopsy. Oncology following and would like biopsy to determine treatment plan moving forward. Patient was seen and evaluated by orthopedics recommending conservative management with no plans of surgery at this time and PT/OT therapy evaluation. Patient continues to have significant pain although does have episodes of nausea with 1 episode of vomiting today post Dilaudid. Will attempt to adjust pain medications and limit narcotic use. Continue with antinausea medication and supportive care. 08/25/2024 Patient is seen in follow-up today initially scheduled for discharge as pulmonary did evaluate the patient with no plans of bronchoscopy at this time recommending outpatient PET scan. Orthopedics has evaluated with no plans of surgical intervention recommending continued PT/OT therapy. Patient per nursing staff is often toe touching on that lower extremity although having significant pain. Patient is concerned she will not be able to manage at home and will ask for repeat reevaluation from PT/OT therapy as patient may benefit from ECF for strength and mobility prior to further follow-up with oncology. Patient is afebrile with no reports of chest pain or shortness of breath. Patient also reports she follows with pain management outpatient and has been evaluated by them reporting her pain is not controlled. Will discontinue Dilaudid and adjust other medications accordingly. Patient reports she follows with Dr. Cross in the outpatient setting with a pain contract although has difficulty making it to his appointments as well. 08/26/2024 Patient is seen in follow-up today continues to report significant pain and patient is on oral morphine along with [place] and continues to report 9/10 pain on the pain scale. Patient is afebrile and denies chest pain or shortness of breath. Case management/social work is following awaiting updated therapy notes and insurance authorization. [employer] is reviewing and patient will also require insurance authorization which remains pending. Patient has been instructed to increase activity as tolerated and sit up in the chair more frequently. Review of Systems: Constitutional: Denied any fatigue denied any fever. Cardio vascular: denied any chest pain, palpitations Gastrointestinal: No reports of nausea or vomiting, reports having bowel movements with no diarrhea Pulmonary: Denied any shortness of breath cough Neurologic reports continued ongoing pain and generalized weakness, reports right knee pain All inpatient medications were reviewed and appropriate changes in these medications as dictated in the interval history and assessment and plan. PHYSICAL EXAMINATION: GENERAL: The patient is alert and oriented x3, not in any acute distress. Well developed, elderly appearing, morbidly obese HEENT: Pupils are round and equally reacting to light. EOMI. No scleral icterus. No conjunctival pallor. Normocephalic, atraumatic. No pharyngeal erythema. No thyromegaly. CARDIOVASCULAR: S1 and S2 muffled PULMONARY: Diminished breath sounds bilaterally otherwise chest is clear to auscultation, no wheezing or crackles. ABDOMEN: Soft, obese, nontender, nondistended, normoactive bowel sounds. No palpable organomegaly. MUSCULOSKELETAL: No joint swelling or deformity. EXTREMITIES: No cyanosis, clubbing, or pedal edema. NEUROLOGICAL: Gross neurological examination did not reveal any focal deficits. Diffusely weak SKIN: No rashes. Assessment: Acute right knee pain with an anterior tib knee fracture orthopedics recommended follow-up with an orthopedic oncologist. Patient does have a prior right knee arthroplasty with prosthetic noted on imaging this could be due to metastatic disease unable to officially rule it out. Also possibility underlying infection. Breast cancer diagnosed in 2019 with right mastectomy and radiation CT findings show a seroma versus reoccurrence of cancer in the right breast. General surgery felt this was more likely a seroma and no need for biopsy at this time Mediastinal lymphadenopathy with small pulmonary nodules, pulmonary following recommending outpatient PET scan pancytopenia no history of chemotherapy in the past Chronic back pain with CT and bone scan suggesting diffuse metastatic osseous disease although unable to clinically diagnose Chronic obstructive pulmonary disease with no acute exacerbation Generalized weakness with gait dysfunction Morbid obesity with a BMI of 40.8 Diabetes mellitus type 2 Hypertension Hyperlipidemia GI prophylaxis DVT prophylaxis Full code Plan: Patient is status post 1 unit of packed red blood cells no signs of active bleeding. Hemoglobin remains above 7 and will follow-up on repeat labs Oncology following regarding the pancytopenia and concern for metastatic/osseous bone disease recommending bronchoscopy and biopsy and pulmonary following. Pulmonary has evaluated the patient with no plans of bronchoscopy or biopsy in the outpatient PET scan and follow-up outpatient. Patient is on room air and in no respiratory distress. Orthopedics recommending to follow-up with an orthopedic oncologist on discharge and patient is hesitant about this because she would need to travel for tertiary care. They have signed off with no plans for surgical intervention of the right knee at this time. Continue pain management for the right knee pain PT OT consulted for evaluation as patient is quite weak and fearful of going home. she is currently toe touch weightbearing. Patient is having extreme pain and difficulty with ambulation and is now agreeable to possible ECF. Social work following and has submitted for insurance authorization. Patient was accepted at [facility] pending authorization. May benefit from continued strength and mobility at ECF prior to returning home. Pulmonary following as mentioned previously and evaluated CT scan with no immediate plans of bronchoscopy and recommends outpatient PET scan regarding mediastinal and hilar lymph nodes Possible discharge planning in the next 24 to 48 hours to ECF. The impression and plan of care has been dictated by Sonal Romero, Nurse Practitioner as directed. Dr. Joesph MD I have performed a history and physical examination and medical decision making of this patient, discussed the same with the dictator, and agree with the dictators assessment and plan as written, documented as a scribe. Based on total visit time, I have performed more than 50% of this visit. Objective - Vital Signs Vital signs: Vital Signs Temp 97.9 F 08/26/24 11:46 Pulse 73 08/26/24 11:46 Resp 16 08/26/24 11:46 BP 131/62 08/26/24 11:46 Pulse Ox 94 L 08/26/24 11:46 FiO2 Intake & Output 08/25/24 08/26/24 08/26/24 18:59 06:59 18:59 Intake Total 240 Balance 240 Weight 101.151 kg Intake: Oral 240 Other: Voiding Method Bedside Commode Bedside Commode Bedside Commode # Voids 0 1 # Bowel Movements 1 1 - Labs CBC & Chem 7: 08/25/24 06:39 08/25/24 06:39 Labs: Abnormal Lab Results - Last 24 Hours (Table) 08/25/24 08/25/24 08/26/24 Range/Units 17:14 19:52 12:18 POC Glucose (mg/dL) 182 H 165 H 162 H (70-110) mg/dL Microbiology - Last 24 Hours (Table) 08/23/24 17:34 Blood Culture - Preliminary Blood
[2024-08-27 07:17] LABS: Glucose,Whole Blood 86 mg/dL (70-110)
[2024-08-27 09:39] LABS: Blood Urea Nitrogen 11.9 mg/dL (9.0-27.0); Calcium 8.7 mg/dL (8.7-10.3); Carbon Dioxide 26.4 mmol/L (21.6-31.8); Chloride 101 mmol/L (96-109); Glucose 93 mg/dL (70-110); Potassium 4.2 mmol/L (3.5-5.5); Sodium 137 mmol/L (135-145)
[2024-08-27 10:50] LABS: Anisocytosis (M) 2+ (None Seen); Basophils # (M) 0.03 X 10*3/uL (0.00-0.10); Eosinophils # (M) 0 X 10*3/uL (0.04-0.35); HCT 26.7 % (37.2-46.3); HGB 8.3 g/dL (12.0-15.0); Immature Platelet Fraction 4.4 % (1.1-6.1); MCH 26.1 pg (27.0-32.0); MCHC 31.1 g/dL (32.0-37.0); Mean Platelet Volume 11.1 FL (9.5-12.2); Monocytes # (M) 0.16 X 10*3/uL (0.20-1.00); Myelocytes % 1 % (0-0); NRBC Per 100 WBC 0.28 X 10*3/uL (0.00-0.01); Neutrophils # (M) 2.06 X 10*3/uL (1.80-7.70); Neutrophils % (M) 64 %; Nucleated Red Blood Cells 16 /100 WBCS; Platelet Count 60 X 10*3/uL (140-440); Promyelocytes # (M) 0.03 k/uL (0); Promyelocytes % 1 %; RBC 3.18 X 10*6/uL (4.10-5.20); RDW 17.8 % (11.5-14.5); WBC 3.22 X 10*3/uL (4.50-10.00)
[2024-08-27 12:40] LABS: Glucose,Whole Blood 79 mg/dL (70-110)
--- NOTE | 2024-08-27 15:33 | P.PN ---
Subjective Progress Note Date: 08/27/24 No acute events. Reporting persisting pain in right knee but pain meds are helping manage her pain. Today, WBC 3.4, hgb 7.8, plt 61,000 Objective - Vital Signs Vital signs: Vital Signs Temp 98.2 F 08/27/24 07:48 Pulse 75 08/27/24 07:48 Resp 17 08/27/24 07:48 BP 145/79 08/27/24 07:48 Pulse Ox 94 L 08/27/24 07:48 FiO2 Intake & Output 08/26/24 08/27/24 08/27/24 18:59 06:59 18:59 Intake Total 540 120 Output Total 300 Balance 240 120 Intake: Oral 540 120 Output: Urine 300 Other: Voiding Method Bedside Commode Bedside Commode Bedside Commode - Labs CBC & Chem 7: 08/27/24 06:18 08/27/24 06:18 Labs: Abnormal Lab Results - Last 24 Hours (Table) 08/26/24 08/26/24 08/26/24 Range/Units 12:18 17:06 20:34 WBC (4.50-10.00) X 10*3/uL RBC (4.10-5.20) X 10*6/uL Hgb (12.0-15.0) g/dL Hct (37.2-46.3) % MCH (27.0-32.0) pg MCHC (32.0-37.0) g/dL RDW (11.5-14.5) % Plt Count (140-440) X 10*3/uL Monocytes # (Manual) (0.20-1.00) X 10*3/uL Eosinophils # (Manual) (0.04-0.35) X 10*3/uL NRBC/100 WBC Diff (0.00-0.01) X 10*3/uL Anisocytosis (manual) (None Seen) POC Glucose (mg/dL) 162 H 137 H 168 H (70-110) mg/dL 08/27/24 08/27/24 Range/Units 03:22 06:18 WBC 3.22 L (4.50-10.00) X 10*3/uL RBC 3.18 L (4.10-5.20) X 10*6/uL Hgb 8.3 L (12.0-15.0) g/dL Hct 26.7 L (37.2-46.3) % MCH 26.1 L (27.0-32.0) pg MCHC 31.1 L (32.0-37.0) g/dL RDW 17.8 H (11.5-14.5) % Plt Count 60 L (140-440) X 10*3/uL Monocytes # (Manual) 0.16 L (0.20-1.00) X 10*3/uL Eosinophils # (Manual) 0 L (0.04-0.35) X 10*3/uL NRBC/100 WBC Diff 0.28 H (0.00-0.01) X 10*3/uL Anisocytosis (manual) 2+ A (None Seen) POC Glucose (mg/dL) 134 H (70-110) mg/dL Microbiology - Last 24 Hours (Table) 08/23/24 17:34 Blood Culture - Preliminary Blood Assessment and Plan (1) Pancytopenia Current Visit: Yes Status: Acute Priority: High Code(s): D61.818 - OTHER PANCYTOPENIA SNOMED Code(s): 642825418 (2) Right knee pain Current Visit: Yes Status: Acute Priority: High Code(s): M25.561 - PAIN IN RIGHT KNEE SNOMED Code(s): 1096168871 (3) Breast cancer Current Visit: Yes Status: Acute Priority: High Code(s): C50.919 - MALIGNANT NEOPLASM OF UNSP SITE OF UNSPECIFIED FEMALE BREAST SNOMED Code(s): 753425977 (4) Chronic pain Current Visit: Yes Status: Acute Priority: Medium Code(s): G89.29 - OTHER CHRONIC PAIN SNOMED Code(s): 37670395 Plan: Rt knee pain, tibial fracture -Been worsening since February. Patient had a nuclear medicine bone scan 03/12/2024, the impression reports right knee tibial metaphysis greater than left knee and given the history, infection felt more so than loosening of the hardware. -CT right knee showing anterior tibial fracture, concern for pathological fx -Orthopedics following, no surgical intervention planned at this time -Patient having difficulty ambulating, will need rehab upon discharge -Discussed case with rad onc, Dr. Jordan. Consult placed. Plan for palliative RT, simulation scheduled for tomorrow. Hopefully this will help reduce RLE pain so she can better participate in rehab. Admitting team updated on POC, rehab will be on hold until RT completed -Spoke with ortho, if pt can tolerate, recommend hinged knee brace Hx ER/AL positive, HER2 neg breast cancer, diagnosed 2019 -Patient had surgery, Oncotype score was 21, unclear if any significant benefit from receiving adjuvant chemotherapy so, pt was recommended radiation and AI. Patient completed radiation therapy. She has taken AI periodically over the last 4 years. -CT chest showing 10.7 x 8.4 cm possible postmasectomy seroma, diffuse osteosclerosis throughout bony structures, mild paravetebral soft tissue thickening at the T9 level, and mediastinal and hilar nodes measuring up to 1.8cm and couple pulm nodules measuring up to 1cm. On exam nothing abnormal felt on the right chest wall, no skin changes noted to right breast and no LAD bilate ral axilla. -Tumor markers are elevated, but at this level they are non-specific -NM bone scan showing diffuse uptake identified within the axial and appendicular skeleton. -CT abdomen pelvis with contrast revealed diffuse osseous metastatic disease. No greater than 1 cm lymph nodes noted to suggest intra-abdominal metastatic disease. Subacute fracture of the left 11th rib. Nodular contour to liver, possible cirrhosis. General surgery has been consulted for right breast findings noted on CTA chest. Case was discussed with surgery team, mass of right breast thought to be consistent with seroma. -Consult placed to pulmonology for evaluation for bronch/biopsy of mediastinal/hilar LAD. Pulm recommending outpt PET CT -Will place referral to IR at [facility] for biopsy of T9 paravertebral soft tissue mass -Clinic f/u upon d/c from rehab Above findings, concerns for recurrence of breast cancer and plan of care discussed with patient, she was agreeable to the same Oncological treatment will be on hold until discharged from SNF. Will plan to continue anastrozole daily Pancytopenia -New onset. CBC in Apr was normal -Pancytopenia workup ordered. As of note, patient did NOT receive any chemotherapy. DDx include primary bone marrow disorder, metastatic breast cancer infiltrating the bone marrow, chronic inflammation, infection. -Pancytopenia work up ordered -Iron studies consistent with anemia of inflammation. No Vit B12 or folate def. noted. RF/HANNAH negative. ESR elevated at 48. K/L LCs elevated, but normal ratio at 1.47. SPEP showing M spike, 0.21, immunofixation negative. Findings consistent with MGUS. Will plan to continue to monitor in outpt setting -Noted cytopenias likely from tumor infiltration and reactive to acute inflammation. -Transfuse for hemoglobin less than 7 or if symptomatic. Transfuse for platelets less than 10,000 or if patient is symptomatic. WBC/ANC not normal but adequate at this time Attests: I have seen and examined pt, performed H&P, developed impression and plan of care. Discussed with dictator. Agree with documentation, dictated as a scribe.
[2024-08-27 16:59] LABS: Glucose,Whole Blood 115 mg/dL (70-110)
[2024-08-27 20:50] LABS: Glucose,Whole Blood 165 mg/dL (70-110)
[2024-08-28] MEDS: guaiFENesin-DM 100-10MG/5ML 10 ML CUP PO PRN (05:35)
--- NOTE | 2024-08-28 06:28 | P.PN ---
Subjective Progress Note Date: 08/27/24 Patient evaluated today sitting up in the chair. Her main complaint today is severe pain to her right knee. There is right anterior tibial knee fracture with a prior prosthesis. Oncology recommending no surgical intervention at this time secondary to patient's underlying conditions and the pancytopenia. Hemoglobin today was 6.8 and patient will receive 1 unit of packed red blood cells. Patient does report chronic back pain however states that the knee pain is what is bothering her the most. Of note patient underwent a bone scan which reveals diffuse uptake identified within the axial and appendicular skeleton corresponding to CT findings. There is a concern for metastasis versus other etiologies. The abdominal pelvis CT reveals subacute fracture of the left from T11 with incomplete osseous fusion at this fracture site. A nodular contour to the liver correlate for cirrhosis. There is diffuse osseous metastatic disease involving nearly every osseous structure per the CT report. There are no greater than 1.0 cm short axis lymph nodes suggesting intra-abdominal metastatic disease. Surgery following and felt that there was no need for a breast biopsy at this time and felt that the CT thorax revealed a large seroma at the previous mastectomy site. Pulmonary was consulted for possible bronchoscopy and LN biopsy. Did discuss with the patient that orthopedic had recommended follow-up with orthopedic oncology which would need to be done at a tertiary care facility and at this time patient is extremely anxious about this and states that she does not want to be that far from her family as they have no reliable transportation at this time. Patient has declined to get up with physical therapy at this time states that she has family support who can assist as needed however there is concern that she is currently nonweightbearing secondary to the pain and this would impact her discharge planning. 08/23/2024 Patient is evaluated in follow-up on the medical floor. Patient is pending vision from pulmonary to undergo bronchoscopy with biopsy per oncology recommendations. Clinically unable to determine whether there is bony metastasis or not in the spine based on imaging reports. Pending follow-up by orthopedics regarding the right knee fracture and further recommendations for surgical intervention is at this time patient is currently nonweightbearing and continues to have excruciating pain requiring IV and oral pain medications. Blood work today reveals a white blood cell count of 3.47, hemoglobin of 7.6, platelet count of 55. Electrolytes and renal function remained stable. 08/24/2024 Patient is seen in follow-up today with multiple consultations following. Awaiting input and recommendations from pulmonary for possible bronchoscopy with biopsy. Oncology following and would like biopsy to determine treatment plan moving forward. Patient was seen and evaluated by orthopedics recommending conservative management with no plans of surgery at this time and PT/OT therapy evaluation. Patient continues to have significant pain although does have episodes of nausea with 1 episode of vomiting today post Dilaudid. Will attempt to adjust pain medications and limit narcotic use. Continue with antinausea medication and supportive care. 08/25/2024 Patient is seen in follow-up today initially scheduled for discharge as pulmonary did evaluate the patient with no plans of bronchoscopy at this time recommending outpatient PET scan. Orthopedics has evaluated with no plans of surgical intervention recommending continued PT/OT therapy. Patient per nursing staff is often toe touching on that lower extremity although having significant pain. Patient is concerned she will not be able to manage at home and will ask for repeat reevaluation from PT/OT therapy as patient may benefit from ECF for strength and mobility prior to further follow-up with oncology. Patient is afebrile with no reports of chest pain or shortness of breath. Patient also reports she follows with pain management outpatient and has been evaluated by them reporting her pain is not controlled. Will discontinue Dilaudid and adjust other medications accordingly. Patient reports she follows with Dr. Cross in the outpatient setting with a pain contract although has difficulty making it to his appointments as well. 08/26/2024 Patient is seen in follow-up today continues to report significant pain and patient is on oral morphine along with [place] and continues to report 9/10 pain on the pain scale. Patient is afebrile and denies chest pain or shortness of breath. Case management/social work is following awaiting updated therapy notes and insurance authorization. [facility] is reviewing and patient will also require insurance authorization which remains pending. Patient has been instructed to increase activity as tolerated and sit up in the chair more frequently. 08/27/2024 Patient is seen in follow-up today continues to report significant pain. Consult was placed to radiation oncology to discuss possible palliative radiation. Per nursing radiation oncology would like to initiate tomorrow and keep the patient hospitalized and continue treatments next week and then possibly discharge to ECF after Saturday or . Will discuss further with consultations regarding treatment plan. Continue current regimen for now and continuing to wait for insurance authorization. Plan is for [facility] [place] on discharge Review of Systems: Constitutional: Denied any fatigue denied any fever. Cardio vascular: denied any chest pain, palpitations Gastrointestinal: No reports of nausea or vomiting, reports having bowel movements with no diarrhea Pulmonary: Denied any shortness of breath cough Neurologic reports continued ongoing pain and generalized weakness, reports right knee pain All inpatient medications were reviewed and appropriate changes in these medic ations as dictated in the interval history and assessment and plan. PHYSICAL EXAMINATION: GENERAL: The patient is alert and oriented x3, not in any acute distress. Well developed, elderly appearing, morbidly obese HEENT: Pupils are round and equally reacting to light. EOMI. No scleral icterus. No conjunctival pallor. Normocephalic, atraumatic. No pharyngeal erythema. No thyromegaly. CARDIOVASCULAR: S1 and S2 muffled PULMONARY: Diminished breath sounds bilaterally otherwise chest is clear to auscultation, no wheezing or crackles. ABDOMEN: Soft, obese, nontender, nondistended, normoactive bowel sounds. No palpable organomegaly. MUSCULOSKELETAL: No joint swelling or deformity. EXTREMITIES: No cyanosis, clubbing, or pedal edema. NEUROLOGICAL: Gross neurological examination did not reveal any focal deficits. Diffusely weak SKIN: No rashes. Assessment: Acute right knee pain with an anterior tib knee fracture orthopedics recommended follow-up with an orthopedic oncologist. Patient does have a prior right knee arthroplasty with prosthetic noted on imaging this could be due to metastatic disease unable to officially rule it out. Also possibility underlying infection. Breast cancer diagnosed in 2020 with right mastectomy and radiation CT findings show a seroma versus reoccurrence of cancer in the right breast. General surgery felt this was more likely a seroma and no need for biopsy at this time Mediastinal lymphadenopathy with small pulmonary nodules, pulmonary following recommending outpatient PET scan pancytopenia no history of chemotherapy in the past Chronic back pain with CT and bone scan suggesting diffuse metastatic osseous disease although unable to clinically diagnose Chronic obstructive pulmonary disease with no acute exacerbation Generalized weakness with gait dysfunction Morbid obesity with a BMI of 40.8 Diabetes mellitus type 2 Hypertension Hyperlipidemia GI prophylaxis DVT prophylaxis Full code Plan: Patient is status post 1 unit of packed red blood cells no signs of active bleeding. Hemoglobin remains above 7 and will follow-up on repeat labs Oncology following regarding the pancytopenia and concern for metastatic/osseous bone disease recommending bronchoscopy and biopsy and pulmonary following. Pulmonary has evaluated the patient with no plans of bronchoscopy or biopsy in the outpatient PET scan and follow-up outpatient. Patient is on room air and in no respiratory distress. Orthopedics recommending to follow-up with an orthopedic oncologist on discharge and patient is hesitant about this because she would need to travel for tertiary care. They have signed off with no plans for surgical intervention of the right knee at this time. Radiation oncology was consulted to discuss possible palliative radiation. Per Dr. Jordan plan is tentatively for radiation tomorrow, staying hospitalized and resuming radiation treatments for early next week and then discharging to ECF. Awaiting oncology update and recommendations Continue pain management for the right knee pain PT OT consulted for evaluation as patient is quite weak and fearful of going home. she is currently toe touch weightbearing. Patient is having extreme pain and difficulty with ambulation and is now agreeable to possible ECF. Social work following and has submitted for insurance authorization. Patient was accepted at [facility] pending authorization. May benefit from continued strength and mobility at F prior to returning home. Possible discharge planning in the next 24 to 48 hours to ECF As there is discussion ongoing about possible radiation treatment and/or chemotherapy The impression and plan of care has been dictated by Sonal Romero, Nurse Practitioner as directed. Dr. Joesph MD I have performed a history and physical examination and medical decision making of this patient, discussed the same with the dictator, and agree with the dictators assessment and plan as written, documented as a scribe. Based on total visit time, I have performed more than 50% of this visit. Objective - Vital Signs Vital signs: Vital Signs Temp 99.1 F 08/28/24 01:58 Pulse 83 08/28/24 01:58 Resp 16 08/28/24 01:58 BP 140/77 08/28/24 01:58 Pulse Ox 91 L 08/28/24 01:58 FiO2 Intake & Output 08/27/24 08/27/24 08/28/24 06:59 18:59 06:59 Intake Total 540 1440 480 Output Total 300 400 Balance 240 1440 80 Intake: Oral 540 1440 480 Output: Urine 300 400 Other: Voiding Method Bedside Commode Bedside Commode Bedside Commode # Voids 2 - Labs CBC & Chem 7: 08/27/24 06:18 08/27/24 06:18 Labs: Abnormal Lab Results - Last 24 Hours (Table) 08/24/24 08/27/24 08/27/24 Range/Units 05:51 06:18 16:57 WBC 3.22 L (4.50-10.00) X 10*3/uL RBC 3.18 L (4.10-5.20) X 10*6/uL Hgb 8.3 L (12.0-15.0) g/dL Hct 26.7 L (37.2-46.3) % MCH 26.1 L (27.0-32.0) pg MCHC 31.1 L (32.0-37.0) g/dL RDW 17.8 H (11.5-14.5) % Plt Count 60 L (140-440) X 10*3/uL Monocytes # (Manual) 0.16 L (0.20-1.00) X 10*3/uL Eosinophils # (Manual) 0 L (0.04-0.35) X 10*3/uL Promyelocytes # (Man) 0.04 H 0.03 H (0) k/uL NRBC/100 WBC Diff 0.28 H (0.00-0.01) X 10*3/uL Anisocytosis (manual) 2+ A (None Seen) POC Glucose (mg/dL) 115 H (70-110) mg/dL 08/27/24 Range/Units 20:49 WBC (4.50-10.00) X 10*3/uL RBC (4.10-5.20) X 10*6/uL Hgb (12.0-15.0) g/dL Hct (37.2-46.3) % MCH (27.0-32.0) pg MCHC (32.0-37.0) g/dL RDW (11.5-14.5) % Plt Count (140-440) X 10*3/uL Monocytes # (Manual) (0.20-1.00) X 10*3/uL Eosinophils # (Manual) (0.04-0.35) X 10*3/uL Promyelocytes # (Man) (0) k/uL NRBC/100 WBC Diff (0.00-0.01) X 10*3/uL Anisocytosis (manual) (None Seen) POC Glucose (mg/dL) 165 H (70-110) mg/dL
[2024-08-28 07:37] LABS: Glucose,Whole Blood 88 mg/dL (70-110)
--- NOTE | 2024-08-28 09:24 | P.CONS ---
History of Present Illness - Reason for Consult Consult date: 08/27/24 Right knee fracture Requesting physician: Arik Mendez - Chief Complaint "My knee hurts" - History of Present Illness Ms. Valentino is a 69-year-old with a history of [id number] invasive ductal carcinoma, status post mastectomy with adjuvant radiation therapy (03/2022, Dr. Gutiérrez) who presents with intractable right knee pain. As above, she presented with localized breast cancer in 2021 and received surgery with adjuvant radiation therapy. She was also recommended endocrine th erapy. She presented to the on 08/18/2024 with right knee pain. Plain films of the femur/tibia/fibula were unremarkable. Knee CT on 08/18/2024 demonstrated a nondisplaced periprosthetic fracture along the anterior tibial tray (she has history of knee replacement). CTA chest demonstrated new diffuse osseous metastatic lesions with mediastinal and hilar adenopathy. Bone scan on 08/21/2024 demonstrated diffuse uptake in the bones. She was also found to be pancytopenic, due to presumed marrow infiltration. Biopsy has not been completed. She is planned for discharge to rehabilitation. She has been seen by orthopedic surgery with no plans for intervention. Today, she notes 9/10 pain in the right knee. She has not ambulated in some time. Review of Systems as per HPI Past Medical History Past Medical History: Asthma, Cancer, COPD, Diabetes Mellitus, GERD/Reflux, Hyperlipidemia, Hypertension, Musculoskeletal Disorder Additional Past Medical History / Comment(s): Migraine headaches. Hx kidney stone. Chronic back pain, numbness and tingling bilateral lower extremities. Right Breast cancer History of Any Multi-Drug Resistant Organisms: None Reported, MRSA Year Discovered:: 2011 MDRO Source:: UNK Past Surgical History: Appendectomy, Back Surgery, Breast Surgery, Cholecystectomy, Joint Replacement, Orthopedic Surgery Additional Past Surgical History / Comment(s): Fusion w/ kane also back surgery 04/21/2019. Left Shoulder Replacement, Right knee replacement, plate in right wrist, left thumb joint repair, Right CTR, Right shoulder arthroscopy. micheal cataracts, LARYNGOSCOPY, November 2016 Cervical Plate, PAIN CLINIC PROCEDURES, right masectomy Past Anesthesia/Blood Transfusion Reactions: No Reported Reaction Past Psychological History: No Psychological Hx Reported Smoking Status: Former smoker Past Alcohol Use History: None Reported Additional Past Alcohol Use History / Comment(s): SMOKED 1PPD, STARTED SMOKING AGE 17, AND QUIT IN 1981. Past Drug Use History: None Reported - Past Family History Brother(s) Family Medical History: Cancer, Myocardial Infarction (ME) Father Family Medical History: Cancer Additional Family Medical History / Comment(s): throat, colon, liver, and brain cancer. Mother Family Medical History: Myocardial Infarction (ME) Additional Family Medical History / Comment(s): at 54 of [place]. Medications and Allergies Home Medications Medication Instructions Recorded Confirmed Type Butalb/Acetaminophen/Caffeine 1 tab PO BID PRN 04/11/14 08/18/24 History [Fioricet 50-325-40 mg Tablet] lisinopriL [Zestril] 40 mg PO DAILY 04/04/16 08/18/24 History Albuterol Sulfate [Albuterol 2 puff INHALATION RT-QID PRN 03/09/24 08/18/24 History Sulfate Hfa] Atorvastatin [Lipitor] 10 mg PO DAILY 03/09/24 08/18/24 History Insulin Glargine,Hum.rec.anlog 60 units SQ HS 03/09/24 08/18/24 History [Lantus Solostar Pen] Insulin Lispro [humaLOG Kwikpen] See Protocol SQ TID-W/MEALS 03/09/24 08/18/24 History Baclofen [Lioresal] 20 mg PO BID 08/18/24 08/18/24 History Budesonide-Formot 160-4.5 Mcg 2 puff INHALATION RT-BID PRN 08/18/24 08/18/24 History [Symbicort 160-4.5 Mcg Inhaler] HYDROcodone/APAP 10-325MG [[place] 1 tab PO BID 08/18/24 08/18/24 History 10-325] Morphine Sulfate ER [Ms Contin] 30 mg PO BID 08/18/24 08/18/24 History amLODIPine [Norvasc] 10 mg PO DAILY 08/18/24 08/18/24 History Allergies Allergy/AdvReac Type Severity Reaction Status Date / Time gabapentin AdvReac Confusion Verified 08/18/24 18:42 ibuprofen [From Motrin] AdvReac Abdominal Verified 08/18/24 18:42 Pain and vomiting pregabalin [From Lyrica] AdvReac Confusion Verified 08/18/24 18:42 Physical Exam Vitals: Vital Signs Temp Pulse Resp BP Pulse Ox 08/28/24 07:45 98.7 F 96 18 148/81 96 08/28/24 01:58 99.1 F 83 16 140/77 91 L 08/27/24 20:00 98.6 F 79 14 147/81 93 L 08/27/24 14:00 98 F 74 18 150/83 94 L Intake and Output 08/27/24 08/28/24 08/28/24 22:59 06:59 14:59 Intake Total 1320 480 Output Total 400 Balance 1320 80 Intake: Oral 1320 480 Output: Urine 400 Other: Voiding Method Bedside Commode # Voids 2 - Constitutional General appearance: no acute distress - Respiratory Respiratory: negative: prolonged expiration, prolonged inspiration - Musculoskeletal pain localizes to proximal tibia on right Results CBC & Chem 7: 08/27/24 06:18 08/27/24 06:18 Labs: Abnormal Lab Results - Last 24 Hours (Table) 08/24/24 08/27/24 08/27/24 Range/Units 05:51 06:18 16:57 WBC 3.22 L (4.50-10.00) X 10*3/uL RBC 3.18 L (4.10-5.20) X 10*6/uL Hgb 8.3 L (12.0-15.0) g/dL Hct 26.7 L (37.2-46.3) % MCH 26.1 L (27.0-32.0) pg MCHC 31.1 L (32.0-37.0) g/dL RDW 17.8 H (11.5-14.5) % Plt Count 60 L (140-440) X 10*3/uL Monocytes # (Manual) 0.16 L (0.20-1.00) X 10*3/uL Eosinophils # (Manual) 0 L (0.04-0.35) X 10*3/uL Promyelocytes # (Man) 0.04 H 0.03 H (0) k/uL NRBC/100 WBC Diff 0.28 H (0.00-0.01) X 10*3/uL Anisocytosis (manual) 2+ A (None Seen) POC Glucose (mg/dL) 115 H (70-110) mg/dL 08/27/24 Range/Units 20:49 WBC (4.50-10.00) X 10*3/uL RBC (4.10-5.20) X 10*6/uL Hgb (12.0-15.0) g/dL Hct (37.2-46.3) % MCH (27.0-32.0) pg MCHC (32.0-37.0) g/dL RDW (11.5-14.5) % Plt Count (140-440) X 10*3/uL Monocytes # (Manual) (0.20-1.00) X 10*3/uL Eosinophils # (Manual) (0.04-0.35) X 10*3/uL Promyelocytes # (Man) (0) k/uL NRBC/100 WBC Diff (0.00-0.01) X 10*3/uL Anisocytosis (manual) (None Seen) POC Glucose (mg/dL) 165 H (70-110) mg/dL Assessment and Plan Assessment: Ms. Valentino is a 69-year-old with a history of [id number] invasive ductal carcinoma, status post mastectomy with adjuvant radiation therapy (03/2022, Dr. Gutiérrez) who presents with intractable right knee pain. Plan: The patient presents with a nondisplaced tibial fracture with suspicion for metastatic recurrence of her breast cancer. I discussed her case with Dr. Harpreet Landaverde (orthopedic oncology). I do not recommend palliative radiation to the knee, as this could potentially hamper healing of the joint. I recommend obtaining tissue and starting systemic therapy, as the joint may heal with conservative measures. I would recommend a knee brace. I discussed with medical oncology. Aleks Jordan MD Radiation Oncology Time with Patient: Greater than 30
[2024-08-28 12:34] LABS: Glucose,Whole Blood 116 mg/dL (70-110)
--- NOTE | 2024-08-28 14:55 | P.PN ---
Subjective Progress Note Date: 08/28/24 Patient evaluated today sitting up in the chair. Her main complaint today is severe pain to her right knee. There is right anterior tibial knee fracture with a prior prosthesis. Oncology recommending no surgical intervention at this time secondary to patient's underlying conditions and the pancytopenia. Hemoglobin today was 6.8 and patient will receive 1 unit of packed red blood cells. Patient does report chronic back pain however states that the knee pain is what is bothering her the most. Of note patient underwent a bone scan which reveals diffuse uptake identified within the axial and appendicular skeleton corresponding to CT findings. There is a concern for metastasis versus other etiologies. The abdominal pelvis CT reveals subacute fracture of the left from T11 with incomplete osseous fusion at this fracture site. A nodular contour to the liver correlate for cirrhosis. There is diffuse osseous metastatic disease involving nearly every osseous structure per the CT report. There are no greater than 1.0 cm short axis lymph nodes suggesting intra-abdominal metastatic disease. Surgery following and felt that there was no need for a breast biopsy at this time and felt that the CT thorax revealed a large seroma at the previous mastectomy site. Pulmonary was consulted for possible bronchoscopy and LN biopsy. Did discuss with the patient that orthopedic had recommended follow-up with orthopedic oncology which would need to be done at a tertiary care facility and at this time patient is extremely anxious about this and states that she does not want to be that far from her family as they have no reliable transportation at this time. Patient has declined to get up with physical therapy at this time states that she has family support who can assist as needed however there is concern that she is currently nonweightbearing secondary to the pain and this would impact her discharge planning. 08/23/2024 Patient is evaluated in follow-up on the medical floor. Patient is pending vision from pulmonary to undergo bronchoscopy with biopsy per oncology recommendations. Clinically unable to determine whether there is bony metastasis or not in the spine based on imaging reports. Pending follow-up by orthopedics regarding the right knee fracture and further recommendations for surgical intervention is at this time patient is currently nonweightbearing and continues to have excruciating pain requiring IV and oral pain medications. Blood work today reveals a white blood cell count of 3.47, hemoglobin of 7.6, platelet count of 55. Electrolytes and renal function remained stable. 08/24/2024 Patient is seen in follow-up today with multiple consultations following. Awaiting input and recommendations from pulmonary for possible bronchoscopy with biopsy. Oncology following and would like biopsy to determine treatment plan moving forward. Patient was seen and evaluated by orthopedics recommending conservative management with no plans of surgery at this time and PT/OT therapy evaluation. Patient continues to have significant pain although does have episodes of nausea with 1 episode of vomiting today post Dilaudid. Will attempt to adjust pain medications and limit narcotic use. Continue with antinausea medication and supportive care. 08/25/2024 Patient is seen in follow-up today initially scheduled for discharge as pulmonary did evaluate the patient with no plans of bronchoscopy at this time recommending outpatient PET scan. Orthopedics has evaluated with no plans of surgical intervention recommending continued PT/OT therapy. Patient per nursing staff is often toe touching on that lower extremity although having significant pain. Patient is concerned she will not be able to manage at home and will ask for repeat reevaluation from PT/OT therapy as patient may benefit from ECF for strength and mobility prior to further follow-up with oncology. Patient is afebrile with no reports of chest pain or shortness of breath. Patient also reports she follows with pain management outpatient and has been evaluated by them reporting her pain is not controlled. Will discontinue Dilaudid and adjust other medications accordingly. Patient reports she follows with Dr. Cross in the outpatient setting with a pain contract although has difficulty making it to his appointments as well. 08/26/2024 Patient is seen in follow-up today continues to report significant pain and patient is on oral morphine along with [place] and continues to report 9/10 pain on the pain scale. Patient is afebrile and denies chest pain or shortness of breath. Case management/social work is following awaiting updated therapy notes and insurance authorization. [facility] License Buddy is reviewing and patient will also require insurance authorization which remains pending. Patient has been instructed to increase activity as tolerated and sit up in the chair more frequently. 08/27/2024 Patient is seen in follow-up today continues to report significant pain. Consult was placed to radiation oncology to discuss possible palliative radiation. Per nursing radiation oncology would like to initiate tomorrow and keep the patient hospitalized and continue treatments next week and then possibly discharge to ECF after Saturday or . Will discuss further with consultations regarding treatment plan. Continue current regimen for now and continuing to wait for insurance authorization. Plan is for [facility] on discharge 08/28/2024 Patient follow-up today reports continued significant pain although is reporting rib pain and left-sided pain and increased cough with congestion although nothing coming up. Cepheid testing was ordered and patient is positive for influenza A. Will initiate Tamiflu and patient will likely need to be moved from oncology unit. Patient continues to report pain but is having some improvements in knee pain although continues to be extremely weak. Social work is following and awaiting for insurance authorization to [facility]. Will have to discuss with liaison as well as social work regarding protocol for discharge planning with the patient that is positive for influenza A. Patient does have a low-grade temp at this time. Review of Systems: Constitutional: Reports of bodyaches and feeling fatigued Cardio vascular: denied any chest pain, palpitations Gastrointestinal: No reports of nausea or vomiting, reports having bowel movemen ts with no diarrhea Pulmonary: Denies shortness of breath although is having a persistent cough with minimal phlegm production Neurologic reports continued ongoing pain and generalized weakness, reports right knee pain All inpatient medications were reviewed and appropriate changes in these medicat ions as dictated in the interval history and assessment and plan. PHYSICAL EXAMINATION: GENERAL: The patient is alert and oriented x3, having frequent cough and rib pain on exam. Well developed, elderly appearing, morbidly obese HEENT: Pupils are round and equally reacting to light. EOMI. No scleral icterus. No conjunctival pallor. Normocephalic, atraumatic. No pharyngeal erythema. No thyromegaly. CARDIOVASCULAR: S1 and S2 muffled PULMONARY: Diminished breath sounds bilaterally otherwise chest is clear to auscultation, no wheezing or crackles. ABDOMEN: Soft, obese, nontender, nondistended, normoactive bowel sounds. No palpable organomegaly. MUSCULOSKELETAL: No joint swelling or deformity. EXTREMITIES: No cyanosis, clubbing, or pedal edema. NEUROLOGICAL: Gross neurological examination did not reveal any focal deficits. Diffusely weak SKIN: No rashes. Assessment: Acute right knee pain with an anterior tib knee fracture orthopedics recommended follow-up with an orthopedic oncologist. Patient does have a prior right knee arthroplasty with prosthetic noted on imaging this could be due to metastatic disease unable to officially rule it out. Also possibility underlying infection. Cough, onset 08/27/2024 secondary to diffuse fluid in the is full in the day acute influenza A Breast cancer diagnosed in 2019 with right mastectomy and radiation CT findings show a seroma versus reoccurrence of cancer in the right breast. General surgery felt this was more likely a seroma and no need for biopsy at this time Mediastinal lymphadenopathy with small pulmonary nodules, pulmonary following recommending outpatient PET scan pancytopenia no history of chemotherapy in the past Chronic back pain with CT and bone scan suggesting diffuse metastatic osseous disease although unable to clinically diagnose Chronic obstructive pulmonary disease with no acute exacerbation Generalized weakness with gait dysfunction Morbid obesity with a BMI of 40.8 Diabetes mellitus type 2 Hypertension Hyperlipidemia GI prophylaxis DVT prophylaxis Full code Plan: Patient has been seen and evaluated by oncology, radiation oncology, pulmonary as well as orthopedics and plan is for patient to be fitted for a hinged knee brace and go to rehab for continued strength and mobility. Patient will hold al l oncological care and outpatient follow-up once discharged from [facility]. Patient will need outpatient PET scan as well as possible biopsy which will be arranged in the outpatient setting once discharged from [facility]. Patient having cough with some congestion and low-grade temp since early last night and was Cepheid tested including COVID, influenza, RSV and was positive for influenza A. Will initiate Tamiflu for 5-day course Continue with Tessalon Perles and Robitussin as needed Patient has been accepted at [facility] pending insurance authorization at this time which remains pending with social work following Patient has been encouraged to increase activity as tolerated with restrictions of the right lower extremity and sit up in the chair more often The impression and plan of care has been dictated by Sonal Romero, Nurse Practitioner as directed. Dr. Joesph MD I have performed a history and physical examination and medical decision making of this patient, discussed the same with the dictator, and agree with the dictators assessment and plan as written, documented as a scribe. Based on total visit time, I have performed more than 50% of this visit. Objective - Vital Signs Vital signs: Vital Signs Temp 99.1 F 08/28/24 12:49 Pulse 106 H 08/28/24 12:49 Resp 20 08/28/24 12:49 BP 181/83 08/28/24 12:49 Pulse Ox 95 08/28/24 12:49 FiO2 Intake & Output 08/27/24 08/28/24 08/28/24 18:59 06:59 18:59 Intake Total 1440 480 Output Total 400 Balance 1440 80 Intake: Oral 1440 480 Output: Urine 400 Other: Voiding Method Bedside Commode Bedside Commode Diaper Incontinent # Voids 2 - Labs CBC & Chem 7: 08/27/24 06:18 08/27/24 06:18 Labs: Abnormal Lab Results - Last 24 Hours (Table) 08/27/24 08/27/24 08/28/24 Range/Units 16:57 20:49 12:10 POC Glucose (mg/dL) 115 H 165 H 116 H (70-110) mg/dL Influenza Type A (PCR) (Not Detectd) 08/28/24 Range/Units 13:10 POC Glucose (mg/dL) (70-110) mg/dL Influenza Type A (PCR) Detected A (Not Detectd)
--- NOTE | 2024-08-28 15:08 | P.PN ---
Subjective Progress Note Date: 08/28/24 Patient reporting having 2 episodes of n/v this morning and malaise. Will obtain COVID/influenza testing. Reporting persisting pain in right knee but pain meds are helping manage her pain. WBC 3.4, hgb 7.8, plt 61,000 Objective - Vital Signs Vital signs: Vital Signs Temp 99.1 F 08/28/24 12:49 Pulse 106 H 08/28/24 12:49 Resp 20 08/28/24 12:49 BP 181/83 08/28/24 12:49 Pulse Ox 95 08/28/24 12:49 FiO2 Intake & Output 08/27/24 08/28/24 08/28/24 18:59 06:59 18:59 Intake Total 1440 480 Output Total 400 Balance 1440 80 Intake: Oral 1440 480 Output: Urine 400 Other: Voiding Method Bedside Commode Bedside Commode Diaper Incontinent # Voids 2 - Constitutional General appearance: Present: no acute distress, obese - EENT Eyes: Present: EOMI ENT: Present: hearing grossly normal - Respiratory Details: breathing is even and unlabored - Cardiovascular Details: skin warm and dry - Gastrointestinal General gastrointestinal: Present: soft. Absent: tenderness - Integumentary Integumentary: Absent: cyanotic - Psychiatric Psychiatric: Present: A&O x's 3 - Labs CBC & Chem 7: 08/27/24 06:18 08/27/24 06:18 Labs: Abnormal Lab Results - Last 24 Hours (Table) 08/27/24 08/27/24 08/28/24 Range/Units 16:57 20:49 12:10 POC Glucose (mg/dL) 115 H 165 H 116 H (70-110) mg/dL Influenza Type A (PCR) (Not Detectd) 08/28/24 Range/Units 13:10 POC Glucose (mg/dL) (70-110) mg/dL Influenza Type A (PCR) Detected A (Not Detectd) Assessment and Plan (1) Pancytopenia Current Visit: Yes Status: Acute Priority: High Code(s): D61.818 - OTHER PANCYTOPENIA SNOMED Code(s): 559462760 (2) Right knee pain Current Visit: Yes Status: Acute Priority: High Code(s): M25.561 - PAIN IN RIGHT KNEE SNOMED Code(s): 0456755471 (3) Breast cancer Current Visit: Yes Status: Acute Priority: High Code(s): C50.919 - MALIGNANT NEOPLASM OF UNSP SITE OF UNSPECIFIED FEMALE BREAST SNOMED Code(s): 692060399 (4) Chronic pain Current Visit: Yes Status: Acute Priority: Medium Code(s): G89.29 - OTHER CHRONIC PAIN SNOMED Code(s): 20617685 Plan: Rt knee pain, tibial fracture -Been worsening since February. Patient had a nuclear medicine bone scan 03/12/2024, the impression reports right knee tibial metaphysis greater than left knee and given the history, infection felt more so than loosening of the hardware. -CT right knee showing anterior tibial fracture, concern for pathological fx -Orthopedics following, no surgical intervention planned at this time -Patient having difficulty ambulating, plan for rehab upon discharge -Discussed case with rad onc, Dr. Jordan. Plan was for palliative RT, however after further review of case with ortho onc, recommending no RT at this time, and for patient to be non-weight bearing. -Spoke with ortho, if pt can tolerate, recommend hinged knee brace Hx ER/ME positive, HER2 neg breast cancer, diagnosed 2019 -Patient had surgery, Oncotype score was 21, unclear if any significant benefit from receiving adjuvant chemotherapy so, pt was recommended radiation and AI. Patient completed radiation therapy. She has taken AI periodically over the last 4 years. -CT chest showing 10.7 x 8.4 cm possible postmasectomy seroma, diffuse osteosclerosis throughout bony structures, mild paravetebral soft tissue thickening at the T9 level, and mediastinal and hilar nodes measuring up to 1.8cm and couple pulm nodules measuring up to 1cm. On exam nothing abnormal felt on the right chest wall, no skin changes noted to right breast and no LAD bilateral axilla. -Tumor markers are elevated, but at this level they are non-specific -NM bone scan showing diffuse uptake identified within the axial and appendicular skeleton. -CT abdomen pelvis with contrast revealed diffuse osseous metastatic disease. No greater than 1 cm lymph nodes noted to suggest intra-abdominal metastatic disease. Subacute fracture of the left 11th rib. Nodular contour to liver, possible cirrhosis. General surgery has been consulted for right breast findings noted on CTA chest. Case was discussed with surgery team, mass of right breast thought to be consistent with seroma. -Consult placed to pulmonology for evaluation for bronch/biopsy of mediastinal/hilar LAD. Pulm recommending outpt PET CT -Will place referral to IR at [facility] for biopsy of T9 paravertebral soft tissue mass -Clinic f/u upon d/c from rehab Above findings, concerns for recurrence of breast cancer and plan of care discussed with patient, she was agreeable to the same Oncological treatment will be on hold until discharged from SNF. Will plan to continue anastrozole daily Pancytopenia -New onset. CBC in Apr was normal -Pancytopenia workup ordered. As of note, patient did NOT receive any chemotherapy. DDx include primary bone marrow disorder, metastatic breast cancer infiltrating the bone marrow, chronic inflammation, infection. -Pancytopenia work up ordered -Iron studies consistent with anemia of inflammation. No Vit B12 or folate def. noted. RF/HANNAH negative. ESR elevated at 48. K/L LCs elevated, but normal ratio at 1.47. SPEP showing M spike, 0.21, immunofixation negative. 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 Will plan to continue to monitor in outpt setting -Noted cytopenias likely from tumor infiltration and reactive to acute inflammation. -Transfuse for hemoglobin less than 7 or if symptomatic. Transfuse for platelets less than 10,000 or if patient is symptomatic. WBC/ANC not normal but adequate at this time
--- NOTE | 2024-08-28 15:30 | P.PN ---
Progress Note - Text Progress Note Date: 08/28/24 I was contacted yesterday by Dr. Harpreet Landaverde MD and orthopedic oncologist at [facility]. He was contacted by oncology at this facility regarding a possible transfer. He reviewed the imaging. He stated he has no plans for operative intervention from an orthopedic oncology standpoint. He recommended treating her breast cancer. I agree with this. I would recommend a hinged knee brace and a prescription was already placed on the chart. The patient is in the process of being fitted for a brace by [facility]. I saw the patient this afternoon. She said her knee for pain feels better. She is able to perform a straight leg raise. I have no plans for operative intervention at this time. I will sign off.
[2024-08-28] MEDS: OSELTAMIVIR 75 MG CAP PO SCH (16:43)
[2024-08-28] MEDS: BENZONATATE 100 MG CAP PO PRN (16:43)
[2024-08-28 17:13] LABS: Glucose,Whole Blood 124 mg/dL (70-110)
[2024-08-28 21:12] LABS: Glucose,Whole Blood 149 mg/dL (70-110)
[2024-08-28] MEDS ORDERED: ACETAMINOPHEN TAB 325 MG TAB PO PRN (22:01)
[2024-08-29 06:37] LABS: Glucose,Whole Blood 116 mg/dL (70-110)
[2024-08-29] MEDS: ALBUTEROL NEBULIZED 2.5 MG/3 ML INHALATION PRN (09:30)
[2024-08-29 10:01] LABS: Basophils # (M) 0.07 X 10*3/uL (0.00-0.10); Eosinophils # (M) 0.02 X 10*3/uL (0.04-0.35); HCT 23.4 % (37.2-46.3); Lymphocytes # (M) 0.36 X 10*3/uL (0.90-5.00); MCHC 29.9 g/dL (32.0-37.0); Metamyelocytes % 4 % (0-0); Monocytes # (M) 0.09 X 10*3/uL (0.20-1.00); Myelocytes % 3 % (0-0); NRBC Per 100 WBC 0.27 X 10*3/uL (0.00-0.01); Neutrophils # (M) 1.56 X 10*3/uL (1.80-7.70); Neutrophils % (M) 69 %; Nucleated Red Blood Cells 13 /100 WBCS; Platelet Count 53 X 10*3/uL (140-440); RBC 2.69 X 10*6/uL (4.10-5.20); WBC 2.26 X 10*3/uL (4.50-10.00)
[2024-08-29 10:16] LABS: BUN/Creat Ratio 18.71 Ratio (12.00-20.00); Blood Urea Nitrogen 13.1 mg/dL (9.0-27.0); Calcium 8.2 mg/dL (8.7-10.3); Carbon Dioxide 29.3 mmol/L (21.6-31.8); Chloride 93 mmol/L (96-109); Glucose 133 mg/dL (70-110); Magnesium 1.8 mg/dL (1.5-2.4); Potassium 4.3 mmol/L (3.5-5.5); Sodium 132 mmol/L (135-145)
--- NOTE | 2024-08-29 11:03 | XR ---
EXAMINATION TYPE: XR chest 2V DATE OF EXAM: 08/29/2024 10:59 AM COMPARISON: 12/18/2016 CLINICAL INDICATION: Female, 69 years old with history of hypoxia, TECHNIQUE: XR chest 2V view(s) obtained. FINDINGS: The heart size is normal. The pulmonary vasculature is mildly prominent. Right perihilar and lower lobe infiltrates are present. Correlate for atelectasis or pneumonia. Pulmo nary edema could be considered.. IMPRESSION: 1. Right perihilar extending into the right lower lobe infiltrate. Correlate for atelectasis or pneum onia. Atypical pulmonary edema could be considered. Follow-up recommended [facility], , 08/29/2024 11:01 AM
[2024-08-29 11:45] LABS: Glucose,Whole Blood 170 mg/dL (70-110)
[2024-08-29 16:56] LABS: Glucose,Whole Blood 179 mg/dL (70-110)
--- NOTE | 2024-08-29 21:10 | P.PN ---
Subjective Progress Note Date: 08/29/24 Patient evaluated today sitting up in the chair. Her main complaint today is severe pain to her right knee. There is right anterior tibial knee fracture with a prior prosthesis. Oncology recommending no surgical intervention at this time secondary to patient's underlying conditions and the pancytopenia. Hemoglobin today was 6.8 and patient will receive 1 unit of packed red blood cells. Patient does report chronic back pain however states that the knee pain is what is bothering her the most. Of note patient underwent a bone scan which reveals diffuse uptake identified within the axial and appendicular skeleton corresponding to CT findings. There is a concern for metastasis versus other etiologies. The abdominal pelvis CT reveals subacute fracture of the left from T11 with incomplete osseous fusion at this fracture site. A nodular contour to the liver correlate for cirrhosis. There is diffuse osseous metastatic disease involving nearly every osseous structure per the CT report. There are no greater than 1.0 cm short axis lymph nodes suggesting intra-abdominal metastatic disease. Surgery following and felt that there was no need for a breast biopsy at this time and felt that the CT thorax revealed a large seroma at the previous mastectomy site. Pulmonary was consulted for possible bronchoscopy and LN biopsy. Did discuss with the patient that orthopedic had recommended follow-up with orthopedic oncology which would need to be done at a tertiary care facility and at this time patient is extremely anxious about this and states that she does not want to be that far from her family as they have no reliable transportation at this time. Patient has declined to get up with physical therapy at this time states that she has family support who can assist as needed however there is concern that she is currently nonweightbearing secondary to the pain and this would impact her discharge planning. 08/23/2024 Patient is evaluated in follow-up on the medical floor. Patient is pending vision from pulmonary to undergo bronchoscopy with biopsy per oncology recommendations. Clinically unable to determine whether there is bony metastasis or not in the spine based on imaging reports. Pending follow-up by orthopedics regarding the right knee fracture and further recommendations for surgical intervention is at this time patient is currently nonweightbearing and continues to have excruciating pain requiring IV and oral pain medications. Blood work today reveals a white blood cell count of 3.47, hemoglobin of 7.6, platelet count of 55. Electrolytes and renal function remained stable. 08/24/2024 Patient is seen in follow-up today with multiple consultations following. Awaiting input and recommendations from pulmonary for possible bronchoscopy with biopsy. Oncology following and would like biopsy to determine treatment plan moving forward. Patient was seen and evaluated by orthopedics recommending conservative management with no plans of surgery at this time and PT/OT therapy evaluation. Patient continues to have significant pain although does have episodes of nausea with 1 episode of vomiting today post Dilaudid. Will attempt to adjust pain medications and limit narcotic use. Continue with antinausea medication and supportive care. 08/25/2024 Patient is seen in follow-up today initially scheduled for discharge as pulmonary did evaluate the patient with no plans of bronchoscopy at this time recommending outpatient PET scan. Orthopedics has evaluated with no plans of surgical intervention recommending continued PT/OT therapy. Patient per nursing staff is often toe touching on that lower extremity although having significant pain. Patient is concerned she will not be able to manage at home and will ask for repeat reevaluation from PT/OT therapy as patient may benefit from ECF for strength and mobility prior to further follow-up with oncology. Patient is afebrile with no reports of chest pain or shortness of breath. Patient also reports she follows with pain management outpatient and has been evaluated by them reporting her pain is not controlled. Will discontinue Dilaudid and adjust other medications accordingly. Patient reports she follows with Dr. Cross in the outpatient setting with a pain contract although has difficulty making it to his appointments as well. 08/26/2024 Patient is seen in follow-up today continues to report significant pain and patient is on oral morphine along with [place] and continues to report 9/10 pain on the pain scale. Patient is afebrile and denies chest pain or shortness of breath. Case management/social work is following awaiting updated therapy notes and insurance authorization. [facility] is reviewing and patient will also require insurance authorization which remains pending. Patient has been instructed to increase activity as tolerated and sit up in the chair more frequently. 08/27/2024 Patient is seen in follow-up today continues to report significant pain. Consult was placed to radiation oncology to discuss possible palliative radiation. Per nursing radiation oncology would like to initiate tomorrow and keep the patient hospitalized and continue treatments next week and then possibly discharge to ECF after Saturday or . Will discuss further with consultations regarding treatment plan. Continue current regimen for now and continuing to wait for insurance authorization. Plan is for [facility] [place] on discharge 08/28/2024 Patient follow-up today reports continued significant pain although is reporting rib pain and left-sided pain and increased cough with congestion although nothing coming up. Cepheid testing was ordered and patient is positive for influenza A. Will initiate Tamiflu and patient will likely need to be moved from oncology unit. Patient continues to report pain but is having some improvements in knee pain although continues to be extremely weak. Social work is following and awaiting for insurance authorization to [facility]. Will have to di scuss with liaison as well as social work regarding protocol for discharge planning with the patient that is positive for influenza A. Patient does have a low-grade temp at this time. 08/29/2024 Patient evaluated in follow-up no significant complaints. Some cough. Chest x- ray reveals a right perihilar extending into the right lower lobe infiltrate. Correlate for atelectasis or pneumonia. Atypical pulmonary edema could be considered. Labs today reveal a white blood cell count of 2.26, hemoglobin 7.0, platelet count 53, sodium 132, BUN 13, creatinine 0.7. Magnesium 1.8. Review of Systems: Constitutional: Reports of bodyaches and feeling fatigued Cardio vascular: denied any chest pain, palpitations Gastrointestinal: No reports of nausea or vomiting, reports having bowel movements with no diarrhea Pulmonary: Denies shortness of breath although is having a persistent cough with minimal phlegm production Neurologic reports continued ongoing pain and generalized weakness, reports ri ght knee pain All inpatient medications were reviewed and appropriate changes in these medications as dictated in the interval history and assessment and plan. PHYSICAL EXAMINATION: GENERAL: The patient is alert and oriented x3, having frequent cough and rib pain on exam. Well developed, elderly appearing, morbidly obese HEENT: Pupils are round and equally reacting to light. EOMI. No scleral icterus. No conjunctival pallor. Normocephalic, atraumatic. No pharyngeal erythema. No thyromegaly. CARDIOVASCULAR: S1 and S2 muffled PULMONARY: Diminished breath sounds bilaterally otherwise chest is clear to auscultation, no wheezing or crackles. ABDOMEN: Soft, obese, nontender, nondistended, normoactive bowel sounds. No palpable organomegaly. MUSCULOSKELETAL: No joint swelling or deformity. EXTREMITIES: No cyanosis, clubbing, or pedal edema. NEUROLOGICAL: Gross neurological examination did not reveal any focal deficits. Diffusely weak SKIN: No rashes. Assessment: Acute right knee pain with an anterior tib knee fracture orthopedics recommended follow-up with an orthopedic oncologist. Patient does have a prior right knee arthroplasty with prosthetic noted on imaging this could be due to metastatic disease unable to officially rule it out. Also possibility underlying infection. Cough, onset 08/27/2024 secondary to diffuse fluid in the is full in the day acute influenza A Breast cancer diagnosed in 2019 with right mastectomy and radiation CT findings show a seroma versus reoccurrence of cancer in the right breast. General surgery felt this was more likely a seroma and no need for biopsy at this time Mediastinal lymphadenopathy with small pulmonary nodules, pulmonary following recommending outpatient PET scan pancytopenia no history of chemotherapy in the past Chronic back pain with CT and bone scan suggesting diffuse metastatic osseous disease although unable to clinically diagnose Chronic obstructive pulmonary disease with no acute exacerbation Generalized weakness with gait dysfunction Morbid obesity with a BMI of 40.8 Diabetes mellitus type 2 Hypertension Hyperlipidemia GI prophylaxis DVT prophylaxis Full code Plan: Patient has been seen and evaluated by oncology, radiation oncology, pulmonary as well as orthopedics and plan is for patient to be fitted for a hinged knee brace and go to rehab for continued strength and mobility. Patient will hold all oncological care and outpatient follow-up once discharged from [facility]. Patient will need outpatient PET scan as well as possible biopsy which will be arranged in the outpatient setting once discharged from [facility]. Patient having cough with some congestion and low-grade temp since early last night and was Cepheid tested including COVID, influenza, RSV and was positive for influenza A. Will initiate Tamiflu for 5-day course Patient needs 2 more doses of Tamiflu before she is able to discharge to rehab. Tomorrow is Saturday so discharge will remain planned for Thursday 08/31. Continue with Tessalon Perles and Robitussin as needed Patient has been accepted at [facility] pending insurance authorization at this time which remains pending with social work following Patient has been encouraged to increase activity as tolerated with restrictions of the right lower extremity and sit up in the chair more often Incentive spirometer ordered encourage patient to use 10 x an hour while awake Monitor electrolytes and renal function The impression and plan of care has been dictated by Nurse Loni Dobsoner as directed. Dr. Joesph MD I have performed a history and physical examination and medical decision making of this patient, discussed the same with the dictator, and agree with the dictat ors assessment and plan as written, documented as a scribe. Based on total visit time, I have performed more than 50% of this visit. Objective - Vital Signs Vital signs: Vital Signs Temp 98.4 F 08/29/24 07:15 Pulse 86 08/29/24 09:40 Resp 15 08/29/24 07:15 BP 155/80 08/29/24 07:15 Pulse Ox 93 L 08/29/24 09:44 FiO2 Intake & Output 08/28/24 08/29/24 08/29/24 18:59 06:59 18:59 Intake Total 540 650 Balance 540 650 Intake: Oral 540 650 Other: Voiding Method Diaper Incontinent # Voids 2 1 # Bowel Movements 1 1 - Labs CBC & Chem 7: 08/29/24 04:24 08/29/24 04:24 Labs: Abnormal Lab Results - Last 24 Hours (Table) 08/28/24 08/28/24 08/28/24 Range/Units 13:10 17:11 21:10 WBC (4.50-10.00) X 10*3/uL RBC (4.10-5.20) X 10*6/uL Hgb (12.0-15.0) g/dL Hct (37.2-46.3) % MCH (27.0-32.0) pg MCHC (32.0-37.0) g/dL RDW (11.5-14.5) % Plt Count (140-440) X 10*3/uL Neutrophils # (Manual) (1.80-7.70) X 10*3/uL Lymphocytes # (Manual) (0.90-5.00) X 10*3/uL Monocytes # (Manual) (0.20-1.00) X 10*3/uL Eosinophils # (Manual) (0.04-0.35) X 10*3/uL NRBC/100 WBC Diff (0.00-0.01) X 10*3/uL Sodium (135-145) mmol/L Chloride (96-109) mmol/L Glucose (70-110) mg/dL POC Glucose (mg/dL) 124 H 149 H (70-110) mg/dL Calcium (8.7-10.3) mg/dL Influenza Type A (PCR) Detected A (Not Detectd) 08/29/24 08/29/24 08/29/24 Range/Units 04:24 04:24 06:36 WBC 2.26 L (4.50-10.00) X 10*3/uL RBC 2.69 L (4.10-5.20) X 10*6/uL Hgb 7.0 L (12.0-15.0) g/dL Hct 23.4 L (37.2-46.3) % MCH 26.0 L (27.0-32.0) pg MCHC 29.9 L (32.0-37.0) g/dL RDW 18.0 H (11.5-14.5) % Plt Count 53 L (140-440) X 10*3/uL Neutrophils # (Manual) 1.56 L (1.80-7.70) X 10*3/uL Lymphocytes # (Manual) 0.36 L (0.90-5.00) X 10*3/uL Monocytes # (Manual) 0.09 L (0.20-1.00) X 10*3/uL Eosinophils # (Manual) 0.02 L (0.04-0.35) X 10*3/uL NRBC/100 WBC Diff 0.27 H (0.00-0.01) X 10*3/uL Sodium 132 L (135-145) mmol/L Chloride 93 L (96-109) mmol/L Glucose 133 H (70-110) mg/dL POC Glucose (mg/dL) 116 H (70-110) mg/dL Calcium 8.2 L (8.7-10.3) mg/dL Influenza Type A (PCR) (Not Detectd) 08/29/24 Range/Units 11:43 WBC (4.50-10.00) X 10*3/uL RBC (4.10-5.20) X 10*6/uL Hgb (12.0-15.0) g/dL Hct (37.2-46.3) % MCH (27.0-32.0) pg MCHC (32.0-37.0) g/dL RDW (11.5-14.5) % Plt Count (140-440) X 10*3/uL Neutrophils # (Manual) (1.80-7.70) X 10*3/uL Lymphocytes # (Manual) (0.90-5.00) X 10*3/uL Monocytes # (Manual) (0.20-1.00) X 10*3/uL Eosinophils # (Manual) (0.04-0.35) X 10*3/uL NRBC/100 WBC Diff (0.00-0.01) X 10*3/uL Sodium (135-145) mmol/L Chloride (96-109) mmol/L Glucose (70-110) mg/dL POC Glucose (mg/dL) 170 H (70-110) mg/dL Calcium (8.7-10.3) mg/dL Influenza Type A (PCR) (Not Detectd) Microbiology - Last 24 Hours (Table) 08/23/24 17:34 Blood Culture - Final Blood Assessment and Plan Time with Patient: Less than 30
[2024-08-29 21:24] LABS: Glucose,Whole Blood 119 mg/dL (70-110)
[2024-08-29] MEDS: BUTALB/APAP/CAFF 50-325-40MG TAB PO PRN (23:29)
[2024-08-30 03:28] LABS: African American GFR (CKD) >90 (>60 ml/min/1.73 sqM); Anion Gap 5 mmol/L; Blood Urea Nitrogen 15 mg/dL (7-17); Calcium 8.2 mg/dL (8.4-10.2); Carbon Dioxide 28 mmol/L (22-30); Chloride 103 mmol/L (98-107); Glucose 107 mg/dL (74-99); Non-African American GFR(CKD) >90 (>60 ml/min/1.73 sqM); Sodium 136 mmol/L (137-145)
[2024-08-30 03:47] LABS: Potassium 5.1 mmol/L (3.5-5.1)
[2024-08-30 04:09] LABS: Anisocytosis Slight; Basophils % (A) 1 %; Eosinophils # (A) 0.1 k/uL (0-0.7); Eosinophils % (A) 2 %; HCT 23.3 % (34.0-46.0); HGB 7.7 gm/dL (11.4-16.0); Hypochromasia Slight; Lymphocytes # (A) 0.7 k/uL (1.0-4.8); Lymphocytes % (A) 25 %; MCH 27.5 pg (25.0-35.0); MCHC 33.2 g/dL (31.0-37.0); MCV 82.8 fL (80.0-100.0); Mean Platelet Volume 9.2; Monocytes # (A) 0.2 k/uL (0-1.0); Monocytes % (A) 9 %; Neutrophils # (A) 1.6 k/uL (1.3-7.7); Neutrophils % (A) 60 %; Poikilocytosis Slight; RBC 2.82 m/uL (3.80-5.40); RDW 18.3 % (11.5-15.5); WBC 2.6 k/uL (3.8-10.6)
[2024-08-30 04:11] LABS: Platelet Count 68 k/uL (150-450)
[2024-08-30 06:22] LABS: Glucose,Whole Blood 70 mg/dL (70-110)
[2024-08-30 06:49] LABS: Glucose,Whole Blood 93 mg/dL (70-110)
[2024-08-30] MEDS: PANTOPRAZOLE 40 MG TABLET PO SCH (07:37)
[2024-08-30 11:19] LABS: Glucose,Whole Blood 82 mg/dL (70-110)
--- NOTE | 2024-08-30 14:04 | P.PN ---
Subjective Progress Note Date: 08/30/24 Patient evaluated today sitting up in the chair. Her main complaint today is severe pain to her right knee. There is right anterior tibial knee fracture with a prior prosthesis. Oncology recommending no surgical intervention at this time secondary to patient's underlying conditions and the pancytopenia. Hemoglobin today was 6.8 and patient will receive 1 unit of packed red blood cells. Patient does report chronic back pain however states that the knee pain is what is bothering her the most. Of note patient underwent a bone scan which reveals diffuse uptake identified within the axial and appendicular skeleton corresponding to CT findings. There is a concern for metastasis versus other etiologies. The abdominal pelvis CT reveals subacute fracture of the left from T11 with incomplete osseous fusion at this fracture site. A nodular contour to the liver correlate for cirrhosis. There is diffuse osseous metastatic disease involving nearly every osseous structure per the CT report. There are no greater than 1.0 cm short axis lymph nodes suggesting intra-abdominal metastatic disease. Surgery following and felt that there was no need for a breast biopsy at this time and felt that the CT thorax revealed a large seroma at the previous mastectomy site. Pulmonary was consulted for possible bronchoscopy and LN biopsy. Did discuss with the patient that orthopedic had recommended follow-up with orthopedic oncology which would need to be done at a tertiary care facility and at this time patient is extremely anxious about this and states that she does not want to be that far from her family as they have no reliable transportation at this time. Patient has declined to get up with physical therapy at this time states that she has family support who can assist as needed however there is concern that she is currently nonweightbearing secondary to the pain and this would impact her discharge planning. 08/23/2024 Patient is evaluated in follow-up on the medical floor. Patient is pending vision from pulmonary to undergo bronchoscopy with biopsy per oncology recommendations. Clinically unable to determine whether there is bony metastasis or not in the spine based on imaging reports. Pending follow-up by orthopedics regarding the right knee fracture and further recommendations for surgical intervention is at this time patient is currently nonweightbearing and continues to have excruciating pain requiring IV and oral pain medications. Blood work today reveals a white blood cell count of 3.47, hemoglobin of 7.6, platelet count of 55. Electrolytes and renal function remained stable. 08/24/2024 Patient is seen in follow-up today with multiple consultations following. Awaiting input and recommendations from pulmonary for possible bronchoscopy with biopsy. Oncology following and would like biopsy to determine treatment plan moving forward. Patient was seen and evaluated by orthopedics recommending conservative management with no plans of surgery at this time and PT/OT therapy evaluation. Patient continues to have significant pain although does have episodes of nausea with 1 episode of vomiting today post Dilaudid. Will attempt to adjust pain medications and limit narcotic use. Continue with antinausea medication and supportive care. 08/25/2024 Patient is seen in follow-up today initially scheduled for discharge as pulmonary did evaluate the patient with no plans of bronchoscopy at this time recommending outpatient PET scan. Orthopedics has evaluated with no plans of surgical intervention recommending continued PT/OT therapy. Patient per nursing staff is often toe touching on that lower extremity although having significant pain. Patient is concerned she will not be able to manage at home and will ask for repeat reevaluation from PT/OT therapy as patient may benefit from ECF for strength and mobility prior to further follow-up with oncology. Patient is afebrile with no reports of chest pain or shortness of breath. Patient also reports she follows with pain management outpatient and has been evaluated by them reporting her pain is not controlled. Will discontinue Dilaudid and adjust other medications accordingly. Patient reports she follows with Dr. Cross in the outpatient setting with a pain contract although has difficulty making it to his appointments as well. 08/26/2024 Patient is seen in follow-up today continues to report significant pain and patient is on oral morphine along with [place] and continues to report 9/10 pain on the pain scale. Patient is afebrile and denies chest pain or shortness of breath. Case management/social work is following awaiting updated therapy notes and insurance authorization. [facility] [employer] is reviewing and patient will also require insurance authorization which remains pending. Patient has been instructed to increase activity as tolerated and sit up in the chair more frequently. 08/27/2024 Patient is seen in follow-up today continues to report significant pain. Consult was placed to radiation oncology to discuss possible palliative radiation. Per nursing radiation oncology would like to initiate tomorrow and keep the patient hospitalized and continue treatments next week and then possibly discharge to ECF after Saturday or . Will discuss further with consultations regarding treatment plan. Continue current regimen for now and continuing to wait for insurance authorization. Plan is for [facility] on discharge 08/28/2024 Patient follow-up today reports continued significant pain although is reporting rib pain and left-sided pain and increased cough with congestion although nothing coming up. Cepheid testing was ordered and patient is positive for influenza A. Will initiate Tamiflu and patient will likely need to be moved from oncology unit. Patient continues to report pain but is having some improvements in knee pain although continues to be extremely weak. Social work is following and awaiting for insurance authorization to [facility]. Will have to di scuss with liaison as well as social work regarding protocol for discharge planning with the patient that is positive for influenza A. Patient does have a low-grade temp at this time. 08/29/2024 Patient evaluated in follow-up no significant complaints. Some cough. Chest x- ray reveals a right perihilar extending into the right lower lobe infiltrate. Correlate for atelectasis or pneumonia. Atypical pulmonary edema could be considered. Labs today reveal a white blood cell count of 2.26, hemoglobin 7.0, platelet count 53, sodium 132, BUN 13, creatinine 0.7. Magnesium 1.8. 08/30/2024 Patient eval today in follow-up on the medical floor. Still reporting some cough and congestion. Patient continues on a course of Tamiflu has received 2 days so far. Labs today reveal a white blood cell count of 2.6, hemoglobin 7.7, platelet count of 68, sodium of 136, BUN of 12 creatinine of 0.68. Oxygen saturations have significantly improved she is currently 96% on 2 L of nasal cannula. States pain to the right knee is controlled at this time. Continues on a combination of scheduled MS Contin and, [place] 10 as well as as needed MS Contin. Review of Systems: Constitutional: Reports of bodyaches and feeling fatigued Cardio vascular: denied any chest pain, palpitations Gastrointestinal: No reports of nausea or vomiting, reports having bowel movements with no diarrhea Pulmonary: Denies shortness of breath although is having a persistent cough with minimal phlegm production Neurologic reports continued ongoing pain and generalized weakness, reports right knee pain All inpatient medications were reviewed and appropriate changes in these medications as dictated in the interval history and assessment and plan. PHYSICAL EXAMINATION: GENERAL: The patient is alert and oriented x3, having frequent cough and rib pain on exam. Well developed, elderly appearing, morbidly obese HEENT: Pupils are round and equally reacting to light. EOMI. No scleral icterus. No conjunctival pallor. Normocephalic, atraumatic. No pharyngeal erythema. No thyromegaly. CARDIOVASCULAR: S1 and S2 muffled PULMONARY: Diminished breath sounds bilaterally otherwise chest is clear to auscultation, no wheezing or crackles. ABDOMEN: Soft, obese, nontender, nondistended, normoactive bowel sounds. No palpable organomegaly. MUSCULOSKELETAL: No joint swelling or deformity. EXTREMITIES: No cyanosis, clubbing, or pedal edema. NEUROLOGICAL: Gross neurological examination did not reveal any focal deficits. Diffusely weak SKIN: No rashes. Assessment: Acute right knee pain with an anterior tib knee fracture orthopedics recommended follow-up with an orthopedic oncologist. Patient does have a prior right knee arthroplasty with prosthetic noted on imaging this could be due to metastatic disease unable to officially rule it out. Also possibility underlying infection. Cough, onset 08/27/2024 acute influenza A Breast cancer diagnosed in 2019 with right mastectomy and radiation CT findings show a seroma versus reoccurrence of cancer in the right breast. General surgery felt this was more likely a seroma and no need for biopsy at this time Mediastinal lymphadenopathy with small pulmonary nodules, pulmonary following recommending outpatient PET scan pancytopenia no history of chemotherapy in the past Chronic back pain with CT and bone scan suggesting diffuse metastatic osseous disease although unable to clinically diagnose Chronic obstructive pulmonary disease with no acute exacerbation Generalized weakness with gait dysfunction Morbid obesity with a BMI of 40.8 Diabetes mellitus type 2 Hypertension Hyperlipidemia GI prophylaxis DVT prophylaxis Full code Plan: Patient has been seen and evaluated by oncology, radiation oncology, pulmonary as well as orthopedics and plan is for patient to be fitted for a hinged knee brace and go to rehab for continued strength and mobility. Patient will hold all oncological care and outpatient follow-up once discharged from [facility]. Patient will need outpatient PET scan as well as possible biopsy which will be arranged in the outpatient setting once discharged from [facility]. Patient having cough with some congestion and low-grade temp since early last night and was Cepheid tested including COVID, influenza, RSV and was positive for influenza A. Will initiate Tamiflu for 5-day course Patient needs 2 more doses of Tamiflu before she is able to discharge to rehab. Tomorrow is Saturday so discharge will remain planned for Thursday 08/31. Continue with Tessalon Perles and Robitussin as needed Patient has been accepted at [facility] pending insurance authorization at this time which remains pending with social work following Patient has been encouraged to increase activity as tolerated with restrictions of the right lower extremity and sit up in the chair more often Incentive spirometer ordered encourage patient to use 10 x an hour while awake Monitor electrolytes and renal function The impression and plan of care has been dictated by Claire Kay, Nurse Practitioner as directed. Dr. Joesph MD I have performed a history and physical examination and medical decision making of this patient, discussed the same with the dictator, and agree with the dictators assessment and plan as written, documented as a scribe. Based on total visit time, I have performed more than 50% of this visit. Objective - Vital Signs Vital signs: Vital Signs Temp 98.6 F 08/30/24 08:03 Pulse 82 08/30/24 09:06 Resp 16 08/30/24 08:03 BP 170/84 08/30/24 08:03 Pulse Ox 96 08/30/24 08:03 FiO2 Intake & Output 08/29/24 08/30/24 08/30/24 18:59 06:59 18:59 Other: Voiding Method Bedside Commode # Voids 3 1 # Bowel Movements 0 1 - Labs CBC & Chem 7: 08/30/24 02:58 08/30/24 02:58 Labs: Abnormal Lab Results - Last 24 Hours (Table) 08/29/24 08/29/24 08/30/24 Range/Units 16:55 21:22 02:58 WBC 2.6 L (3.8-10.6) k/uL RBC 2.82 L (3.80-5.40) m/uL Hgb 7.7 L (11.4-16.0) gm/dL Hct 23.3 L (34.0-46.0) % RDW 18.3 H (11.5-15.5) % Plt Count 68 L (150-450) k/uL Lymphocytes # 0.7 L (1.0-4.8) k/uL Sodium (137-145) mmol/L Glucose (74-99) mg/dL POC Glucose (mg/dL) 179 H 119 H (70-110) mg/dL Calcium (8.4-10.2) mg/dL 08/30/24 Range/Units 02:58 WBC (3.8-10.6) k/uL RBC (3.80-5.40) m/uL Hgb (11.4-16.0) gm/dL Hct (34.0-46.0) % RDW (11.5-15.5) % Plt Count (150-450) k/uL Lymphocytes # (1.0-4.8) k/uL Sodium 136 L (137-145) mmol/L Glucose 107 H (74-99) mg/dL POC Glucose (mg/dL) (70-110) mg/dL Calcium 8.2 L (8.4-10.2) mg/dL Assessment and Plan Time with Patient: Less than 30
[2024-08-30 16:27] LABS: Glucose,Whole Blood 99 mg/dL (70-110)
[2024-08-30 20:47] LABS: Glucose,Whole Blood 111 mg/dL (70-110)
[2024-08-31 06:19] LABS: Glucose,Whole Blood 59 mg/dL (70-110)
[2024-08-31] MEDS: PROCHLORPERAZINE 5 MG TAB PO PRN (06:29)
[2024-08-31 06:37] LABS: Glucose,Whole Blood 65 mg/dL (70-110)
[2024-08-31 06:50] LABS: Glucose,Whole Blood 72 mg/dL (70-110)
--- NOTE | 2024-08-31 09:58 | P.DS ---
Providers Date of admission: 08/18/24 18:58 Attending physician: Ann Hicks Consults: 08/18/24 18:55 Consult Physician Routine Consulting Provider: Colin Saucedo Consult Reason/Comments: known Do you want consulting provider notified?: Yes 08/19/24 22:04 Consult Physician Routine Consulting Provider: Kelly Cordova Consult Reason/Comments: Pancytopenia with SM, possible metastatic disease, history of breast cancer Do you want consulting provider notified?: Yes, Notify in am 08/21/24 20:59 Consult Physician Routine Consulting Provider: Dany Mulligan Consult Reason/Comments: mediastinal/hilar LAD, and pulm nodules, eval for biopsy Do you want consulting provider notified?: Yes 08/27/24 11:05 Consult Physician Routine Consulting Provider: Aleks Jordan Consult Reason/Comments: right tibial fx, r/o pathological fx, eval for palliative RT Do you want consulting provider notified?: Yes Primary care physician: [facility] Hospital Course: Final Diagnosis Acute right knee pain with an anterior tib knee fracture orthopedics recommended follow-up with an orthopedic oncologist. Patient does have a prior right knee arthroplasty with prosthetic noted on imaging this could be due to metastatic disease unable to officially rule it out. Also possibility underlying infection. Cough, onset 08/27/2024 acute influenza A Breast cancer diagnosed in 2019 with right mastectomy and radiation CT findings show a seroma versus reoccurrence of cancer in the right breast. General surgery felt this was more likely a seroma and no need for biopsy at this time Mediastinal lymphadenopathy with small pulmonary nodules, pulmonary following recommending outpatient PET scan pancytopenia no history of chemotherapy in the past Chronic back pain with CT and bone scan suggesting diffuse metastatic osseous disease although unable to clinically diagnose Chronic obstructive pulmonary disease with no acute exacerbation Generalized weakness with gait dysfunction Morbid obesity with a BMI of 40.8 Diabetes mellitus type 2 Hypertension Hyperlipidemia Discharge Disposition Patient stable for discharge to subacute rehab. Patient will follow-up with oncology and radiation oncology on an outpatient basis. Appointment has been set up for Dr. Yancey. Patient will continue with the hinged knee brace and will discharge to subacute rehabilitation for continued strength and mobility. Will need an outpatient PET scan and possible biopsy but this will be arranged on an outpatient setting once she is discharged from [facility]. Patient has completed day 4 out of 5 of Tamiflu and will continue with 2 more doses tomorrow on September 01. Patient is encouraged to continue incentive spirometer 10 times an hour while awake. Repeat Blood work in 2 to 3 days. Hospital Course This is a pleasant 69-year-old female medical history significant for chronic back pain, COPD, obesity, diabetes mellitus type 2, hypertension, hyperlipidemia. Patient presents to the hospital with complaints of right knee pain that has been ongoing since February. Patient does have a prior prosthetic however states that she fell in August and hurt her right knee. There is a n oted fracture to be found on imaging however she has been treated medically for this. Patient initial blood work reveals pancytopenia with a white blood cell count of 3.3 hemoglobin 8.0 and platelet count of 72. Had an elevated D-dimer at 5.2 CT angiography the chest was negative for pulmonary embolism Limited study because of motion artifact. There is diffuse osteosclerosis of the bony structures suspicious for diffuse metastatic disease. There is mediastinal and hilar lymphadenopathy and pulmonary nodules up to 1 cm while lymph node enlargement was up to 1.8 cm a differential diagnosis of sarcoidosis bronchiectasis or metastatic disease. Patient is status post right mastectomy with breast bed showing either reconstructed prosthesis or implants versus seroma. Patient also day CT of the knee done showing sclerosis and lucency around both the distal femoral and proximal tibial bones a nondisplaced periprosthetic tibial fracture. Patient was evaluated by multiple consultations this admission including orthopedics, oncology, radiation oncology, pulmonology. The plan will be for patient to be started on Arimidex and a hinged knee brace was provided patient will be discharged to subacute rehab for continued strengthening and mobility. When she is discharged from [facility] patient will follow-up with oncology and will be scheduled for an outpatient PET scan and further recommendations. Patient was advised by orthopedics to follow-up with an orthopedic oncologist on discharge. Hospital stay was complicated by patient developing a cough was found to be positive for influenza A by PCR on August 28 and was started on Tamiflu. He required oxygen via nasal cannula but has currently been weaned to room air. She is having some coughing was given supportive care with Robitussin and [place]. Recent blood work reveals a cell count of 10.6, hemoglobin 7.7, platelet count of 68, sodium of 136, BUN of 15 creatinine of 0.68 blood glucose in the 100s. Patient is not having any chest pain. Her right knee pain and back pain is now controlled with oral pain medications. She is cleared for discharge to subacute rehab with the above- mentioned recommendations. Please see medication reconciliation for a list of current medications. Thank you for allowing us to participate in the care of this patient. The impression and plan of care has been dictated by Claire Kay Nurse Practitioner as directed. Dr. Joesph MD I have performed a history and physical examination and medical decision making of this patient, discussed the same with the dictator, and agree with the dictators assessment and plan as written, documented as a scribe. Based on total visit time, I have performed more than 50% of this visit. Patient Condition at Discharge: Fair Plan - Discharge Summary New Discharge Prescriptions: New Morphine Sulfate ER [Ms Contin] 30 mg PO DAILY PRN #2 tab PRN Reason: Severe Pain (Scale 7 To 10) Pantoprazole [Protonix] 40 mg PO AC-BID #0 tab guaiFENesin-DM 100-10MG/5ML [Robitussin DM] 5 ml PO Q6HR PRN ml PRN Reason: Cough Benzonatate [Tessalon Perles] 100 mg PO TID PRN cap PRN Reason: Cough Anastrozole [Arimidex] 1 mg PO DAILY tab Butalb/APAP/Caff 50-325-40Mg [Fioricet 50-325-40] 1 each PO BID PRN #4 tab PRN Reason: Migraine Headache INSULIN ASPART (NovoLOG) [NovoLOG (formulary)] 0 unit SQ ACHS each Oseltamivir [Tamiflu] 75 mg PO Q12HR 1 Days #2 cap Continue Butalb/Acetaminophen/Caffeine [Fioricet 50-325-40 mg Tablet] 1 tab PO BID PRN PRN Reason: Migraine Headache lisinopriL [Zestril] 40 mg PO DAILY Atorvastatin [Lipitor] 10 mg PO DAILY Albuterol Sulfate [Albuterol Sulfate Hfa] 2 puff INHALATION RT-QID PRN PRN Reason: Shortness Of Breath amLODIPine [Norvasc] 10 mg PO DAILY Baclofen [Lioresal] 20 mg PO BID Insulin Lispro [humaLOG Kwikpen] See Protocol SQ TID-W/MEALS Budesonide-Formot 160-4.5 Mcg [Symbicort 160-4.5 Mcg Inhaler] 2 puff INHALATION RT-BID PRN PRN Reason: Shortness Of Breath Changed Morphine Sulfate ER [Ms Contin] 30 mg PO BID #4 tab HYDROcodone/APAP 10-325MG [Farber 10-325] 1 tab PO Q6H #4 tab Insulin Glargine,Hum.rec.anlog [Lantus Solostar Pen] 30 units SQ HS #0 Discharge Medication List Butalb/Acetaminophen/Caffeine [Fioricet 50-325-40 mg Tablet] 1 tab PO BID PRN 04/11/14 [History] lisinopriL [Zestril] 40 mg PO DAILY 04/04/16 [History] Albuterol Sulfate [Albuterol Sulfate Hfa] 2 puff INHALATION RT-QID PRN 03/09/24 [History] Atorvastatin [Lipitor] 10 mg PO DAILY 03/09/24 [History] Insulin Lispro [humaLOG Kwikpen] See Protocol SQ TID-W/MEALS 03/09/24 [History] Baclofen [Lioresal] 20 mg PO BID 08/18/24 [History] Budesonide-Formot 160-4.5 Mcg [Symbicort 160-4.5 Mcg Inhaler] 2 puff INHALATION RT-BID PRN 08/18/24 [History] amLODIPine [Norvasc] 10 mg PO DAILY 08/18/24 [History] Anastrozole [Arimidex] 1 mg PO DAILY tab 08/31/24 [Rx] Benzonatate [Tessalon Perles] 100 mg PO TID PRN cap 08/31/24 [Rx] Butalb/APAP/Caff 50-325-40Mg [Fioricet 50-325-40] 1 each PO BID PRN #4 tab 08/31/24 [Rx] HYDROcodone/APAP 10-325MG [Farber 10-325] 1 tab PO Q6H #4 tab 08/31/24 [Rx] INSULIN ASPART (NovoLOG) [NovoLOG (formulary)] 0 unit SQ ACHS each 08/31/24 [Rx] Insulin Glargine,Hum.rec.anlog [Lantus Solostar Pen] 30 units SQ HS #0 08/31/24 [Rx] Morphine Sulfate ER [Ms Contin] 30 mg PO BID #4 tab 01/13/25 [Rx] Morphine Sulfate ER [Ms Contin] 30 mg PO DAILY PRN #2 tab 08/31/24 [Rx] Oseltamivir [Tamiflu] 75 mg PO Q12HR 1 Days #2 cap 08/31/24 [Rx] Pantoprazole [Protonix] 40 mg PO AC-BID #0 tab 08/31/24 [Rx] guaiFENesin-DM 100-10MG/5ML [Robitussin DM] 5 ml PO Q6HR PRN ml 08/31/24 [Rx] Follow up Appointment(s)/Referral(s): Scarlet Dior MD [Primary Care Provider] - 1-2 days Antonio Yancey MD [STAFF PHYSICIAN] - 10/05/24 3:00 pm Colin Saucedo MD [Medical Doctor] - 2 Weeks Ambulatory/Diagnostic Orders: Basic Metabolic Panel [LAB.AMB] Time Frame: 3 Days, Location: None Selected Complete Blood Count w/diff [LAB.AMB] Location: None Selected Magnesium [LAB.AMB] Location: None Selected Activity/Diet/Wound Care/Special Instructions: Patient to continue with hinged knee brace on discharge We recommend you follow-up with an Orthopaedic Oncologist at [facility] or [place] for further management as an outpatient Dr Harpreet Landaverde is an orthopedic oncologist at [place]; he has reviewed imaging and currently no plans with operative intervention of the right knee. Patient can follow up on DC. This is per the orthopedics notes. Discharge Disposition: TRANSFER TO SNF/ECF
[2024-08-31 11:04] LABS: Glucose,Whole Blood 103 mg/dL (70-110)
[2024-08-31] MEDS: DOCUSATE 100 MG CAP PO SCH (11:31)
--- NOTE | 2024-08-31 13:25 | P.PN ---
Subjective Progress Note Date: 08/31/24 This is a 69-year-old female patient with a known history of diabetes mellitus, hypertension, hyperlipidemia, obstructive pulmonary disease, former smoker. She also has a history of breast cancer status post right mastectomy. She presented here back on 08/18/2024 with concern with right knee pain. CT scan of the knee did reveal changes possibly sequela of chronic infection or underlying osseous metastatic disease. Metastatic disease. No greater than 1.0 cm lymph nodes suggest intra-abdominal metastatic disease. Subacute fracture of left rib 11. CT scan of the chest reveals new diffuse ostial sclerotic throughout the bony structures. Correlate for diffuse osseous metastatic disease. No large central or lobar branch embolus. Mediastinal and hilar lymph nodes measuring up to 1.8 cm in a couple pulmonary nodules measuring up to 1 cm. She is seen today August 22, 2024 in consultation based on the CT angiogram findings with mediastinal lymph nodes. Currently awake and alert and resting fairly comfortable in bed. She is still complaining of a lot of right knee pain. She denies any shortness of breath, cough or congestion. No hemoptysis. Maintaining good O2 saturations in the 90s on room air. She is afebrile. Hemodynamically stable. White count 2.9. Hemoglobin 6.8. Platelets 54,000. Odium 136. Potassium 4.3. Bicarb 24. BUN 14. Creatinine 0.8. Is continued on her albuterol and Symbicort. Receiving Dilaudid and morphine for pain control. Normal saline at 75 cc/h. Progress note dated August 23, 2024. 69-year-old female seen yesterday in consultation. Please see the consultation above. The patient has a history of diabetes mellitus, hypertension, hyperlipid emia, obstructive lung disease, previous tobacco use, and previous history of breast cancer, status postmastectomy. The patient was admitted with right knee pain. We are asked to see the patient for possible biopsy, based on an abnormal CT scan which shows largest mediastinal lymph nodes. The patient was seen by surgery yesterday, and there is no plans for them doing a biopsy. They recommended that pulmonary consider doing bronchoscopy, and biopsy. The patient is not having any respiratory issues at this time. She is currently 08/24/2024, patient is being seen for a follow-up. Will consult on the patient regarding abnormal mediastinal lymph nodes and some pulmonary nodules which raise suspicion for metastatic disease involving the lungs. I reviewed the CT of the chest which was done on 08/18/2024. The CAT scan shows diffuse osteosclerosis throughout the bony structures consistent with diffuse osseous metastatic disease along with some mild paravertebral soft tissue thickening at the level of T9 probably representing extraosseous soft tissue extension. In terms of the mediastinum, there are some limited enlarged lymph nodes largest being around 1.8 cm in size in the right hilum and paratracheal area. There are also some scattered subcentimeter nodular subpleural densities in the right apex measuring 1 cm in size. There is also a 10 x 8.4 cm right breast reconstructio n/postmastectomy seroma. Also radiation changes involving the right breast. Clinically, the patient has no respiratory distress. Her pulse ox 93% on room air oxygen. She is on Symbicort. She is on Ventolin nebulized treatments as needed. She remains on Arimidex. She is still complaining of knee pain. She is known to have diabetes mellitus type 2, hypertension, hyperlipidemia, COPD and the patient is a former smoker. She also has breast cancer with a previous right mastectomy. CAT scan of the knee did reveal sequelae of infection versus osseous metastatic disease. The patient is seen today August 31, 2024 in follow-up on the regular medical floor. She is currently resting comfortably in bed. Awake and alert in no acute distress. Maintaining good O2 saturations in the 90s on room air. Denies any worsening shortness of breath, cough or congestion. She has been afebrile. Glucose 103. She is continued on albuterol, Symbicort, Tamiflu. Objective - Vital Signs Vital signs: Vital Signs Temp 97.9 F 08/31/24 07:15 Pulse 81 08/31/24 08:08 Resp 15 08/31/24 08:08 BP 189/82 08/31/24 07:15 Pulse Ox 94 L 08/31/24 07:15 FiO2 Intake & Output 08/30/24 08/31/24 08/31/24 18:59 06:59 18:59 Intake Total 2300 2937 Balance 2300 2937 Intake: Oral 2300 2937 Other: Voiding Method Bedside Commode Bedside Commode # Voids 4 2 - Exam A 69-year-old female patient, on room air, no acute distress. HEENT examination is grossly unremarkable. Mucous membranes are moist. No oral lesions. Neck supple. Full range of motion. No adenopathy thyromegaly or neck vein distention. Cardiovascular examination reveals regular rhythm rate. S1-S2 normal. No S3 or S4. No discernible murmur noted. Lungs reveal clear breath sounds. Breath sounds are equal bilaterally. No adventitious lung sounds including wheezes rhonchi or crackles. Abdomen soft bowel sounds are heard. No masses or tenderness. Extremities are intact. No cyanosis clubbing or edema. Skin is without rash or lesion. Neurologic examination is brief but nonfocal. - Labs CBC & Chem 7: 08/30/24 02:58 08/30/24 02:58 Labs: Abnormal Lab Results - Last 24 Hours (Table) 08/30/24 08/31/24 08/31/24 Range/Units 20:45 06:18 06:36 POC Glucose (mg/dL) 111 H 59 L 65 L (70-110) mg/dL Assessment and Plan Assessment: Acute right knee pain suspect secondary to metastatic disease Breast cancer diagnosed in 2019, status post right mastectomy and radiation. CT findings are showing possible recurrence in the right breast Mediastinal lymphadenopathy with small pulmonary nodules involving the right apex measuring up to 1 cm in size along with subpleural nodularities Pancytopenia with no history of chemotherapy Chronic back pain Chronic obstructive pulmonary disease Former smoker Obesity Diabetes mellitus Hyperlipidemia Hypertension Plan: The patient was seen and evaluated Labs and medications reviewed Currently stable and on room air Plan is for [facility] at discharge I have personally seen and examined the patient, performed the documentation and the assessment and plan as written. Number of minutes spent on the visit: 10 Dictation was produced using [employer] dictation software. Please excuse any g rammatical, word or spelling errors.
[2024-08-31 13:31] VITALS: BP 170/79; PULSE 79; RESP 17; TEMP 98.6
--- NOTE | 2024-08-31 15:35 | P.PN ---
Subjective Progress Note Date: 08/31/24 Objective - Vital Signs Vital signs: Vital Signs Temp 98.6 F 08/31/24 13:30 Pulse 79 08/31/24 13:30 Resp 17 08/31/24 13:30 BP 170/79 08/31/24 13:30 Pulse Ox 97 08/31/24 13:30 FiO2 Intake & Output 08/30/24 08/31/24 08/31/24 18:59 06:59 18:59 Intake Total 2300 2937 Balance 2300 2937 Intake: Oral 2300 2937 Other: Voiding Method Bedside Commode Bedside Commode # Voids 4 2 - Labs CBC & Chem 7: 08/30/24 02:58 08/30/24 02:58 Labs: Abnormal Lab Results - Last 24 Hours (Table) 08/30/24 08/31/24 08/31/24 Range/Units 20:45 06:18 06:36 POC Glucose (mg/dL) 111 H 59 L 65 L (70-110) mg/dL Assessment and Plan (1) Right knee pain Current Visit: Yes Status: Acute Priority: High Code(s): M25.561 - PAIN IN RIGHT KNEE SNOMED Code(s): 7360188198 (2) Pancytopenia Current Visit: Yes Status: Acute Priority: High Code(s): D61.818 - OTHER PANCYTOPENIA SNOMED Code(s): 797185478 (3) Breast cancer Current Visit: Yes Status: Acute Priority: High Code(s): C50.919 - MALIGNANT NEOPLASM OF UNSP SITE OF UNSPECIFIED FEMALE BREAST SNOMED Code(s): 950639179 Plan: Rt knee pain -Been worsening since February. Patient had a nuclear medicine bone scan 03/12/2024, the impression reports right knee tibial metaphysis greater than left knee and given the history, infection felt more so than loosening of the hardware. Pt being followed by Orthopedics. -She has been evaluated by Rad Onc. Recommend getting tissue biopsy then starting systemic therapy, as the joint may heal with conservative measures. -Pt has knee brace at this time Chronic back pain -Pt has chronic back pain, follows with pain mgmt. Hx ER/WI positive, Her neg breast cancer, diagnosed 2019 -Patient had surgery, Oncotype score was 21, unclear if any significant benefit from receiving adjuvant chemotherapy so, pt was recommended radiation and AI. Patient completed radiation therapy. She has taken AI erratically over the last 4 years. -Tumor markers slightly elevated but, not specific to conclude pt has recurrence -NM bone scan reported diffuse uptake identified within the axial and a ppendicular skeleton. -CT AP reported diffuse osseous metastatic disease. No greater than 1 cm lymph nodes noted to suggest intra-abdominal metastatic disease. Subacute fracture of the left 11th rib. Nodular contour to liver, possible cirrhosis. -Surgery and Pulmonary have evaluated pt-breast findings not suspicious for malignancy, no bx planed. Mediastinal/hilar LAD not specific, Pulm recommending outpt PET CT before considering biopsy. -Will refer to IR at [facility] for biopsy of T9 paravertebral soft tissue mass, once out of rehab -Pt has now been diagnosed with influenza A-which is going to further prolong completion of work up. -Cont anastrazole daily for now -F/U with Medical Oncologist after recovery from acute illness and biopsy Pancytopenia -New onset. CBC in Sept was normal -Pancytopenia workup ordered. As of note, patient did NOT receive any chemotherapy. DDx include primary bone marrow disorder, metastatic breast cancer infiltrating the bone marrow, chronic inflammation, infection. No MGUS, iron studies most consistent with inflammation. -Transfuse for hemoglobin less than 7 or if symptomatic. Transfuse for platelets less than 10,000 or if patient is symptomatic. Plt adequate for DVT prophylaxis. WBC/ANC not normal but, adequate at this time.
== END 2024-08-31 17:06 | DRG 543 ==
LOC: EC 12:53 → 5NMEDONC 18:57 → OBSVTOIN 18:58 → 5NMEDONC 23:10 → 4SSUR 08-28 17:01
PROVIDERS: ADMIT Hospitalist; ATTEND Hospitalist
PROC: 0S9C3ZX Drainage of Right Knee Joint, Percutaneous Approach, Diagnostic (ICD-10-PCS; principal; 2024-08-19)
DX: C79.51 Secondary malignant neoplasm of bone (principal); C79.89 Secondary malignant neoplasm of other specified sites; D61.818 Other pancytopenia; Z68.41 Body mass index [BMI] 40.0-44.9, adult; M96.843 Postprocedural seroma of a musculoskeletal structure following other procedure; S22.32XA Fracture of one rib, left side, initial encounter for closed fracture; M97.11XA Periprosthetic fracture around internal prosthetic right knee joint, initial encounter; J44.89 Other specified chronic obstructive pulmonary disease; E11.65 Type 2 diabetes mellitus with hyperglycemia; E66.01 Morbid (severe) obesity due to excess calories; Z79.4 Long term (current) use of insulin; J10.1 Influenza due to other identified influenza virus with other respiratory manifestations; I10 Essential (primary) hypertension; E78.5 Hyperlipidemia, unspecified; G89.29 Other chronic pain; Z91.199 Patient's noncompliance with other medical treatment and regimen due to unspecified reason; R79.89 Other specified abnormal findings of blood chemistry; R59.0 Localized enlarged lymph nodes; M47.26 Other spondylosis with radiculopathy, lumbar region; K21.9 Gastro-esophageal reflux disease without esophagitis; Z85.3 Personal history of malignant neoplasm of breast; Z87.891 Personal history of nicotine dependence; Z90.11 Acquired absence of right breast and nipple; Z86.69 Personal history of other diseases of the nervous system and sense organs; Z96.612 Presence of left artificial shoulder joint; Z88.6 Allergy status to analgesic agent; Z88.8 Allergy status to other drugs, medicaments and biological substances; Z79.51 Long term (current) use of inhaled steroids; Z79.899 Other long term (current) drug therapy; Z82.49 Family history of ischemic heart disease and other diseases of the circulatory system; Z80.8 Family history of malignant neoplasm of other organs or systems
CPT/HCPCS: 36415; 71046; 71275; 74177; 78306; 80048; 80053; 80076; 81001; 82550; 82607; 82728; 82746; 83036; 83540; 83550; 83605; 83735; 83880; 83883; 83921; 84100; 84145; 84165; 84443; 84484; 85025; 85045; 85379; 85610; 85652; 85730; 86038; 86140; 86300; 86334; 86431; 86850; 86900; 86901; 86920; 87040; 87070; 87205; 87636; 89050; 89060; 93005; 94640; 94760; 96374; 96375; 99285

== ENCOUNTER 2024-09-06 17:38 | Emergency (ER) | payer MEDICARE, OTHER ==
--- NOTE | 2024-09-06 18:02 | ED ---
General Adult HPI - General Chief complaint: Extremity Injury, Upper Stated complaint: lt shoulder injury Time Seen by Provider: 09/06/24 17:40 Source: patient, EMS Mode of arrival: EMS - History of Present Illness Initial comments: Dictation was produced using [employer] dictation software. please excuse any grammatical, word or spelling errors. Chief Complaint: 69-year-old female with left shoulder pain History of Present Illness: Patient 61-year-old female from the correction. Patient was repositioning herself in bed when all of a sudden she states she felt a pop in her left shoulder. Patient has history of shoulder surgery to the left shoulder. Denies any other complaints. Denies any numbness tingling paresthesias to the arms or legs. The ROS documented in this emergency department record has been reviewed and confirmed by me. Those systems with pertinent positive or negative responses have been documented in the HPI. All other systems are other negative and/or noncontributory. - Related Data Home Medications Medication Instructions Recorded Confirmed Butalb/Acetaminophen/Caffeine 1 tab PO BID PRN 04/11/14 08/18/24 [Fioricet 50-325-40 mg Tablet] lisinopriL [Zestril] 40 mg PO DAILY 04/04/16 08/18/24 Albuterol Sulfate [Albuterol 2 puff INHALATION RT-QID PRN 03/09/24 08/18/24 Sulfate Hfa] Atorvastatin [Lipitor] 10 mg PO DAILY 03/09/24 08/18/24 Baclofen [Lioresal] 20 mg PO BID 08/18/24 08/18/24 Budesonide-Formot 160-4.5 Mcg 2 puff INHALATION RT-BID PRN 08/18/24 08/18/24 [Symbicort 160-4.5 Mcg Inhaler] amLODIPine [Norvasc] 10 mg PO DAILY 08/18/24 08/18/24 Previous Rx's Medication Instructions Recorded Anastrozole [Arimidex] 1 mg PO DAILY tab 08/31/24 Benzonatate [Tessalon Perles] 100 mg PO TID PRN cap 08/31/24 Butalb/APAP/Caff 50-325-40Mg 1 each PO BID PRN #4 tab 08/31/24 [Fioricet 50-325-40] HYDROcodone/APAP 10-325MG [Snow 1 tab PO Q6H #4 tab 08/31/24 10-325] INSULIN ASPART (NovoLOG) [NovoLOG 0 unit SQ ACHS each 08/31/24 (formulary)] Insulin Glargine,Hum.rec.anlog 30 units SQ HS #0 08/31/24 [Lantus Solostar Pen] Morphine Sulfate ER [Ms Contin] 30 mg PO BID #4 tab 08/31/24 Morphine Sulfate ER [Ms Contin] 30 mg PO DAILY PRN #2 tab 08/31/24 Oseltamivir [Tamiflu] 75 mg PO Q12HR 1 Days #2 cap 08/31/24 Pantoprazole [Protonix] 40 mg PO AC-BID #0 tab 08/31/24 guaiFENesin-DM 100-10MG/5ML 5 ml PO Q6HR PRN ml 08/31/24 [Robitussin DM] Allergies Allergy/AdvReac Type Severity Reaction Status Date / Time gabapentin AdvReac Confusion Verified 08/18/24 18:42 ibuprofen [From Motrin] AdvReac Abdominal Verified 08/18/24 18:42 Pain and vomiting pregabalin [From Lyrica] AdvReac Confusion Verified 08/18/24 18:42 Review of Systems ROS Statement: Those systems with pertinent positive or pertinent negative responses have been documented in the HPI. ROS Other: All systems not noted in ROS Statement are negative. Past Medical History Past Medical History: Asthma, Cancer, COPD, Diabetes Mellitus, GERD/Reflux, Hyperlipidemia, Hypertension, Musculoskeletal Disorder Additional Past Medical History / Comment(s): Migraine headaches. Hx kidney stone. Chronic back pain, numbness and tingling bilateral lower extremities. Right Breast cancer History of Any Multi-Drug Resistant Organisms: None Reported, MRSA Date of last positivie culture/infection: 2011 MDRO Source:: UNK Past Surgical History: Appendectomy, Back Surgery, Breast Surgery, Cholecystectomy, Joint Replacement, Orthopedic Surgery Additional Past Surgical History / Comment(s): Fusion w/ kane also back surgery 04/21/2019. Left Shoulder Replacement, Right knee replacement, plate in right wrist, left thumb joint repair, Right CTR, Right shoulder arthroscopy. micheal cataracts, LARYNGOSCOPY, November 2016 Cervical Plate, PAIN CLINIC PROCEDURES, right masectomy Past Anesthesia/Blood Transfusion Reactions: No Reported Reaction Past Psychological History: No Psychological Hx Reported Smoking Status: Former smoker Past Alcohol Use History: None Reported Additional Past Alcohol Use History / Comment(s): SMOKED 1PPD, STARTED SMOKING AGE 17, AND QUIT IN 1981. Past Drug Use History: None Reported - Past Family History Brother(s) Family Medical History: Cancer, Myocardial Infarction (NM) Father Family Medical History: Cancer Additional Family Medical History / Comment(s): throat, colon, liver, and brain cancer. Mother Family Medical History: Myocardial Infarction (NM) Additional Family Medical History / Comment(s): at 54 of [place]. General Exam - General Exam Comments Initial Comments: PHYSICAL EXAM: General Impression: Alert and oriented x3, acute distress secondary to pain HEENT: Normocephalic atraumatic, extra-ocular mn aovements intact, pupils equal and reactive to light bilaterally, mucous membranes moist. Cardiovascular: Heart regular rate and rhythm Chest: Able to complete full sentences, no retractions, no tachypnea Abdomen: abdomen soft, non-tender, non-distended, no organomegaly Musculoskeletal: Pulses present and equal in all extremities, no peripheral edema Left shoulder: Palpatory tenderness to the left shoulder, no obvious deformities Motor: no focal deficits noted Neurological: CN II-XII grossly intact, no focal motor or sensory deficits noted Skin: Intact with no visualized rashes Psych: Normal affect and mood Course Vital Signs 09/06/24 09/06/24 17:44 18:10 Pulse Rate 80 83 Respiratory 18 94 H Rate Blood Pressure 141/61 141/64 O2 Sat by Pulse 94 L 94 L Oximetry Medical Decision Making - Medical Decision Making Was pt. sent in by a medical professional or institution (, PA, EXCAVATOR OPERATOR, urgent care, hospital, or correction...) When possible be specific @ -No Did you speak to anyone other than the patient for history (EMS, parent, family, police, friend...)? What history was obtained from this source @ -No Did you review nursing and triage notes (agree or disagree)? Why? @ -I reviewed and agree with nursing and triage notes Were old charts reviewed (outside hosp., previous admission, EMS record, old EKG, old radiological studies, urgent care reports/EKG's, correction records)? Report findings @ -No old charts were reviewed Differential Diagnosis (chest pain, altered mental status, abdominal pain women, abdominal pain men, vaginal bleeding, musculoskeletal, weakness, fever, dyspnea, syncope, headache, dizziness, GI bleed, back pain, seizure, CVA, palpatations, mental health)? @ -Shoulder dislocation, shoulder strain, AC separation EKG interpreted by me (3pts min.). @ -None done X-rays interpreted by me (1pt min.). @ -Left shoulder x-ray shows no acute processes CT interpreted by me (1pt min.). @ -None done U/S interpreted by me (1pt. min.). @ -None done What testing was considered but not performed or refused? (CT, X-rays, U/S, labs)? Why? @ -None What meds were considered but not given or refused? Why? @ -None Was smoking cessation discussed for >3mins.? @ -No Were there social determinants of health that impacted care today? How? (Homelessness, low income, unemployed, alcoholism, drug addiction, transportation, low edu. Level, literacy, decrease access to med. care, usp, rehab)? @ -No Was there de-escalation of care discussed even if they declined (Discuss DNR or withdrawal of care, Hospice)? DNR status @ -No What co-morbidities impacted this encounter? (DM, HTN, Smoking, COPD, CAD, Cancer, CVA, ARF, Chemo, Hep., AIDS, mental health diagnosis, sleep apnea, morbid obesity)? @ -None Was patient admitted / discharged? Hospital course, mention meds given and route, prescriptions, significant lab abnormalities, going to OR and other pertinent info. @ -69-year-old female presents to the emergency department clinical pres entation consistent with left shoulder strain. She has previous history of left shoulder surgery. Vital signs stable. X-ray is unremarkable. Patient given analgesics with improvement of symptoms. Advised follow-up with orthopedic surgeon. Did you discuss the management of the patient with other professionals (professionals i.e. , PA, EXCAVATOR OPERATOR, lab, RT, psych nurse, social media director, prosthetic assistant, teacher, aeronautical engineering officer, case management coordinator)? Give summary @ -No Was critical care preformed (if so, how long)? @ -No Undiagnosed new problem with uncertain prognosis? @ -No Drug Therapy requiring intensive monitoring for toxicity (Heparin, Nitro, Insulin, Cardizem)? @ -No Were any procedures done? @ -No Diagnosis/symptom? Acute, or Chronic, or Acute on Chronic? Uncomplicated (without systemic symptoms) or Complicated (systemic symptoms)? @ -Shoulder strain Side effects of treatment? @ -No Exacerbation, Progression, or Severe Exacerbation? @ -No Poses a threat to life or bodily function? How? (Chest pain, [place], [place], pneumonia, PE, COPD, DKA, ARF, appy, cholecystitis, CVA, Diverticulitis, Homicidal, Suicidal, threat to staff... and all critical care pts) @ -yes Disposition Clinical Impression: Shoulder strain Disposition: HOME SELF-CARE Condition: Fair Instructions (If sedation given, give patient instructions): Shoulder Pain (ED) Is patient prescribed a controlled substance at d/c from ED?: No Referrals: None,Stated [Primary Care Provider] - 1-2 days Time of Disposition: 19:25
[2024-09-06] MEDS: HYDROmorphone 1 MG/ML 1 ML SYRINGE IM STA ×2 (18:11→20:07)
--- NOTE | 2024-09-06 19:08 | XR ---
EXAMINATION TYPE: XR shoulder complete LT DATE OF EXAM: 09/06/2024 6:40 PM COMPARISON: 03/24/2010 CLINICAL INDICATION: Female, 69 years old with history of pain; PHH, pain TECHNIQUE: XR shoulder complete LT; examined in AP, internally rotated and scapular Y projections. FINDINGS: A reverse left shoulder arthroplasty appears intact. No evidence for fracture. No evidence or dislocation. Degeneration changes of the common clavicular joint with osteophyte formation. The re maining portions of the visualized chest are unremarkable. IMPRESSION: Reverse shoulder arthroplasty appears intact. [facility], , 09/06/2024 7:06 PM
[2024-09-07 00:16] VITALS: BP 142/76; PULSE 80; RESP 18; TEMP 98.4
== END 2024-09-06 21:00 | disposition home or self-care (01) ==
LOC: EC 17:38
DX: S46.912A Strain of unspecified muscle, fascia and tendon at shoulder and upper arm level, left arm, initial encounter (principal); Z87.891 Personal history of nicotine dependence; Z88.8 Allergy status to other drugs, medicaments and biological substances; Z88.6 Allergy status to analgesic agent; X50.0XXA Overexertion from strenuous movement or load, initial encounter
CPT/HCPCS: 73030; 99283; 96372 ×2; J1171

== ENCOUNTER → 2024-09-09 | Outpatient (CLI) | payer MEDICARE, OTHER ==
[2024-09-10 13:48] LABS: Serum Amphetamine Negative; Serum Barbiturates Positive; Serum Benzodiazepine Negative; Serum Cocaine Negative; Serum Methadone Negative; Serum Opiates Positive; Serum Phencyclidine Negative; Serum Propoxyphene Negative; Serum THC (Cannabis) Negative
== END | disposition home or self-care (01) ==
LOC: LABWHC1 10:36
PROVIDERS: ATTEND Specialist
DX: Z02.83 Encounter for blood-alcohol and blood-drug test (principal)
CPT/HCPCS: 36415; 80307

== ENCOUNTER → 2024-09-09 | Outpatient (CLI) | payer MEDICARE, OTHER ==
[2024-09-09 10:25] VITALS: BP 177/77; PULSE 85; RESP 16; TEMP 97.3
--- NOTE | 2024-09-09 16:39 | P.PAINPG ---
PQRS Measure Charge Sheet Comment: A 69 yr old wheelchair bound female w caregiver at side with a history of severe and chronic R knee pain and LBP > 1 yr secondary to radiculopathy, spondylosis and facet arthropathy without myelopathy presents today for medication refills. Pain level is provoked at 9 /10 in intensity, constant, localized in the R knee, achy in character without shooting pain. Pain is provoked by weight bearing. R knee joint aspiration performed 1 day ago. Pain is alleviated with medications, injections, compression on R knee, PT years ago, heat, repositioning and rest. 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 Interventional pain procedures completed include R SI injection Patient is currently on MS ER 30mg #60, Tyl Patient denies any side effects of the medication(s), denies excessive drowsiness or sleepiness, denies suicidal ideation and reports that the current pain medication is helping to control the pain and improve activities of daily living. Patient denies any motor or sensory deficits. Patient denies any fever or night sweats, denies any change in the bowel movements or urination. Physical Examination: +Diffuse R knee TTP -Constitutional: Cooperative. Not in acute distress . - Neurologic: Cranial nerve II to XII intact. No focal neurological deficits. - Psychatric: Alert & oriented x 3. Matching mood & appropriate affect. Judgment and insight intact. - Musculoskeletal: Cervical spine: Muscle bulk/ tone/ strength in the bilateral upper extremities normal Vertebral body tenderness to palpation over Spurling test positive Distraction test positive Facet loading test positive TTP Thoracic spine Muscle bulk / tone/ strength in the bilateral paraspinal muscles normal Vertebral body tender to palpation over Facet loading test positive TTP Lumbar spine: Motor bulk/ tone/ strength lower extremities , thigh and legs : 5/5 Deep tendon reflexes : Normal Knee Jerk. Normal Ankle Jerk . Vertebral body tenderness to palpation over Lumbar Facet Loading Test positive Straight Leg Raise: positive at 30 degrees right side/ left side Gaenslen's Test positive Sacral spine : Severe tenderness over the Sacroiliac joint: right side / left side Range of motion: Flexion of the lumbar spine <60 degrees Range of motion: Extension of the lumbar spine <20 degrees Gaenslen's Test positive right side / left side Itny test: positive right side / left side Thigh Thrust Test positive right side / left side Sacral Thrust Test positive right side / left side Assessment and plan: Chronic LBP secondary to radiculopathy, spondylosis with facet arthropathy without myelopathy, R knee DJD Recommendation of R intra articular knee injection. Risks, benefits of procedure discussed and pt verbalized understanding. Will hold Heparin 1 day prior to procedure. All questions answered. Chronic and current use of high-risk medication (Opioids). The patient was counseled about risk of opioid use, psychological risk associated with opioids and was orally counseled to not overuse , divert or sell medications. Pt is to store medication in a safe location. The patient is counseled against driving while using narcotic medications and also not to use alcohol or any illicit recreational drugs. Patient verbalized understanding that the lack of compliance will result in failure to renew narcotic prescription(s) as well as possible discharge from the clinic Diagnoses, prognosis and treatment options including but not limited to physical therapy, surgical interventions, interventional therapies and medication management including narcotics and adjuvant medication were discussed. All patient questions answered MAPS reviewed and it was appropriate. Blood tox screen from 10/02/23 reviewed and +Opiates (MS ER). Refill MS ER 30mg #60 w 1 RF. Opiate/ narcotic agreement renewed 09/09/24. I have spent less than 30 minutes on patient care today. Dr Dougherty was available by phone for the evaluation of this patient. The time was used to review the medical records including relevant urine studies and Prescription history (MAPs), review of the available imaging, evaluation and examination of the patient, coordination of care with the medical staff and if applicable referring physicians, as well as creation of the medical record PQRS Narrative: Smoking Status Former smoker Narcotic Agreement Date Signed 06/12/23 Hx Alcohol Use (MH) No Home Medications: Ambulatory Orders Butalb/Acetaminophen/Caffeine [Fioricet 50-325-40 mg Tablet] 1 tab PO BID PRN 04/11/14 lisinopriL [Zestril] 40 mg PO DAILY 04/04/16 Albuterol Sulfate [Albuterol Sulfate Hfa] 2 puff INHALATION RT-QID PRN 03/09/24 Atorvastatin [Lipitor] 10 mg PO DAILY 03/09/24 Baclofen [Lioresal] 20 mg PO BID 08/18/24 Budesonide-Formot 160-4.5 Mcg [Symbicort 160-4.5 Mcg Inhaler] 2 puff INHALATION RT-BID PRN 08/18/24 amLODIPine [Norvasc] 10 mg PO DAILY 08/18/24 Anastrozole [Arimidex] 1 mg PO DAILY tab 08/31/24 Benzonatate [Tessalon Perles] 100 mg PO TID PRN cap 08/31/24 Butalb/APAP/Caff 50-325-40Mg [Fioricet 50-325-40] 1 each PO BID PRN #4 tab 08/31/24 HYDROcodone/APAP 10-325MG [[place] 10-325] 1 tab PO Q6H #4 tab 08/31/24 INSULIN ASPART (NovoLOG) [NovoLOG (formulary)] 0 unit SQ ACHS each 08/31/24 Insulin Glargine,Hum.rec.anlog [Lantus Solostar Pen] 30 units SQ HS #0 08/31/24 Morphine Sulfate ER [Ms Contin] 30 mg PO BID #4 tab 08/31/24 Morphine Sulfate ER [Ms Contin] 30 mg PO DAILY PRN #2 tab 08/31/24 Oseltamivir [Tamiflu] 75 mg PO Q12HR 1 Days #2 cap 08/31/24 Pantoprazole [Protonix] 40 mg PO AC-BID #0 tab 08/31/24 guaiFENesin-DM 100-10MG/5ML [Robitussin DM] 5 ml PO Q6HR PRN ml 08/31/24 Controlled Substance Measures - Controlled Substance Measures Is patient prescribed a controlled substance at discharge?: Yes When asked, does pt state using other controlled substances?: Yes If prescribed controlled substance>3 days was MAPS reviewed?: Yes If Rx opioid, was Start Talking consent form obtained?: Yes Was information provided regarding opioid addiction?: Yes
== END ==
LOC: PNWHC3 09:40
PROVIDERS: ATTEND Specialist
DX: M54.50 Low back pain, unspecified (principal); G89.29 Other chronic pain; M54.16 Radiculopathy, lumbar region; M47.816 Spondylosis without myelopathy or radiculopathy, lumbar region; F17.210 Nicotine dependence, cigarettes, uncomplicated; Z79.899 Other long term (current) drug therapy; Z88.9 Allergy status to unspecified drugs, medicaments and biological substances; Z88.6 Allergy status to analgesic agent
CPT/HCPCS: 99211

== ENCOUNTER 2024-10-24 00:22 | Inpatient (IN) | payer MEDICARE, OTHER ==
[2024-10-24] MEDS: HEPARIN SOD,PORK IN 0.45% NACL 25,000 UNIT in 0.45% NACL 1 250ML.BAG IV SCH (01:38)
[2024-10-24] MEDS: HYDROmorphone 1 MG/ML 1 ML SYRINGE IVP STA (01:38)
[2024-10-24] MEDS: DILTIAZEM 125 MG in SODIUM CHLORIDE 0.9% 100 ML IV SCH (01:46)
[2024-10-24] MEDS: DILTIAZEM DRIP BOLUS FROM BAG 1 MG SOLN IV ONE (01:48)
--- NOTE | 2024-10-24 03:23 | ED ---
SOB HPI - General Chief Complaint: Shortness of Breath Stated Complaint: SOB Time Seen by Provider: 10/24/24 00:30 Source: EMS Mode of arrival: EMS - History of Present Illness Initial Comments: 9-year-old female who presents to the emergency department as a transfer from [facility]. Patient went into the emergency department with complaint of shortness of breath for 2 days. No chest pain. Feels like someone is sitting on her chest. No palpitations, diaphoresis, fever, cough. No history of irregular heart rhythms or heart disease. She does have a history of hype rtension and takes lisinopril. History of high cholesterol and takes rosuvastatin. Patient is a insulin-dependent diabetic and has chronic right leg pain. Patient does admit to asthma and takes Symbicort. Does not use a nebulizer. Patient was seen at their facility and found to have new onset A-fib with a rapid rate of 120. She was started on a Cardizem drip. CT demonstrates signs of congestive heart failure with possible pneumonia. She was started on Rocephin and Zithromax. She was given 60 mg of Lasix and a Berrios was initiated. She had to be transferred as they do not have cardiology coverage at [facility]. Patient arrives on a Cardizem and heparin drip. Patient arrives and is complaining of pain. States that she missed a dose of her home pain medication. - Related Data Home Medications Medication Instructions Recorded Confirmed Butalb/Acetaminophen/Caffeine 1 tab PO BID PRN 04/11/14 09/09/24 [Fioricet 50-325-40 mg Tablet] lisinopriL [Zestril] 40 mg PO DAILY 04/04/16 09/09/24 Albuterol Sulfate [Albuterol 2 puff INHALATION RT-QID PRN 03/09/24 09/09/24 Sulfate Hfa] Atorvastatin [Lipitor] 10 mg PO DAILY 03/09/24 09/09/24 Baclofen [Lioresal] 20 mg PO BID 08/18/24 09/09/24 Budesonide-Formot 160-4.5 Mcg 2 puff INHALATION RT-BID PRN 08/18/24 09/09/24 [Symbicort 160-4.5 Mcg Inhaler] amLODIPine [Norvasc] 10 mg PO DAILY 08/18/24 09/09/24 Previous Rx's Medication Instructions Recorded Anastrozole [Arimidex] 1 mg PO DAILY tab 08/31/24 Benzonatate [Tessalon Perles] 100 mg PO TID PRN cap 08/31/24 Butalb/APAP/Caff 50-325-40Mg 1 each PO BID PRN #4 tab 08/31/24 [Fioricet 50-325-40] HYDROcodone/APAP 10-325MG [[place] 1 tab PO Q6H #4 tab 08/31/24 10-325] INSULIN ASPART (NovoLOG) [NovoLOG 0 unit SQ ACHS each 08/31/24 (formulary)] Insulin Glargine,Hum.rec.anlog 30 units SQ HS #0 08/31/24 [Lantus Solostar Pen] Oseltamivir [Tamiflu] 75 mg PO Q12HR 1 Days #2 cap 08/31/24 Pantoprazole [Protonix] 40 mg PO AC-BID #0 tab 08/31/24 guaiFENesin-DM 100-10MG/5ML 5 ml PO Q6HR PRN ml 08/31/24 [Robitussin DM] Morphine Sulfate ER [Ms Contin] 30 mg PO BID PRN 30 Days #60 tab 09/09/24 Morphine Sulfate ER [Ms Contin] 30 mg PO BID PRN 30 Days #60 tab 09/09/24 Allergies Allergy/AdvReac Type Severity Reaction Status Date / Time gabapentin AdvReac Confusion Verified 08/18/24 18:42 ibuprofen [From Motrin] AdvReac Abdominal Verified 08/18/24 18:42 Pain and vomiting pregabalin [From Lyrica] AdvReac Confusion Verified 08/18/24 18:42 Review of Systems ROS Statement: Those systems with pertinent positive or pertinent negative responses have been documented in the HPI. ROS Other: All systems not noted in ROS Statement are negative. Past Medical History Past Medical History: Asthma, Cancer, COPD, Diabetes Mellitus, GERD/Reflux, Hyperlipidemia, Hypertension, Musculoskeletal Disorder Additional Past Medical History / Comment(s): Migraine headaches. Hx kidney stone. Chronic back pain, numbness and tingling bilateral lower extremities. Right Breast cancer History of Any Multi-Drug Resistant Organisms: None Reported, MRSA Date of last positivie culture/infection: 2011 MDRO Source:: UNK Past Surgical History: Appendectomy, Back Surgery, Breast Surgery, Cholecystect connor, Joint Replacement, Orthopedic Surgery Additional Past Surgical History / Comment(s): Fusion w/ kane also back surgery 04/21/2019. Left Shoulder Replacement, Right knee replacement, plate in right wrist, left thumb joint repair, Right CTR, Right shoulder arthroscopy. micheal cataracts, LARYNGOSCOPY, November 2016 Cervical Plate, PAIN CLINIC PROCEDURES, right masectomy Past Anesthesia/Blood Transfusion Reactions: No Reported Reaction Past Psychological History: No Psychological Hx Reported Smoking Status: Former smoker - Past Family History Brother(s) Family Medical History: Cancer, Myocardial Infarction ([place]) Father Family Medical History: Cancer Additional Family Medical History / Comment(s): throat, colon, liver, and brain cancer. Mother Family Medical History: Myocardial Infarction ([place]) Additional Family Medical History / Comment(s): at 54 of [place]. Course Vital Signs 10/24/24 10/24/24 00:28 02:56 Temperature 97.7 F Pulse Rate 121 H 95 Respiratory 20 18 Rate Blood Pressure 146/85 130/70 O2 Sat by Pulse 98 100 Oximetry Medical Decision Making - Medical Decision Making Was pt. sent in by a medical professional or institution (, PA, HOT PACKER, urgent care, hospital, or halfway...) When possible be specific @ -[No] Did you speak to anyone other than the patient for history (EMS, parent, family, police, friend...)? What history was obtained from this source @ -[No] Did you review nursing and triage notes (agree or disagree)? Why? @ -[I reviewed and agree with nursing and triage notes] Were old charts reviewed (outside hosp., previous admission, EMS record, old EKG, old radiological studies, urgent care reports/EKG's, halfway records)? Report findings @ -[No old charts were reviewed] Differential Diagnosis (chest pain, altered mental status, abdominal pain women, abdominal pain men, vaginal bleeding, weakness, fever, dyspnea, syncope, headache, dizziness, GI bleed, back pain, seizure, CVA, palpatations, mental health, musculoskeletal)? @ -[not applicable] EKG interpreted by me (3pts min.). @ -yes, demonstrates A-fib with a rate of 89. QRS 96. QTc of 425. No acute ST segment elevations or depressions X-rays interpreted by me (1pt min.). @ -[None done] CT interpreted by me (1pt min.). @ -[None done] U/S interpreted by me (1pt. min.). @ -[None done] What testing was considered but not performed or refused? (CT, X-rays, U/S, labs)? Why? @ -[None] What meds were considered but not given or refused? Why? @ -[None] Did you discuss the management of the patient with other professionals (professionals i.e. , PA, HOT PACKER, lab, RT, psych nurse, social services counselor, contracting officer, teacher, bank operations officer, rehabilitation caseworker)? Give summary @ -[No] Was smoking cessation discussed for >3mins.? @ -[No] Was critical care preformed (if so, how long)? @ -[No] Were there social determinants of health that impacted care today? How? (Homelessness, low income, unemployed, alcoholism, drug addiction, transportation, low edu. Level, literacy, decrease access to med. care, retirement, re hab)? @ -[No] Was there de-escalation of care discussed even if they declined (Discuss DNR or withdrawal of care, Hospice)? DNR status @ -[No] What co-morbidities impacted this encounter? (DM, HTN, Smoking, COPD, CAD, Cancer, CVA, ARF, Chemo, Hep., AIDS, mental health diagnosis, sleep apnea, morbid obesity)? @ -[None] Was patient admitted / discharged? Hospital course, mention meds given and ro reginald, prescriptions, significant lab abnormalities, going to OR and other pertinent info. @ -[hospital course] Undiagnosed new problem with uncertain prognosis? @ -[No] Drug Therapy requiring intensive monitoring for toxicity (Heparin, Nitro, Insulin, Cardizem)? @ -[No] Were any procedures done? @ -[No] Diagnosis/symptom? @ -[default] Acute, or Chronic, or Acute on Chronic? @ -[default] Uncomplicated (without systemic symptoms) or Complicated (systemic symptoms)? @ -[default] Side effects of treatment? @ -[No] Exacerbation, Progression, or Severe Exacerbation? @ -[No] Poses a threat to life or bodily function? How? (Chest pain, [place], [place], pneumonia, PE, COPD, DKA, ARF, appy, cholecystitis, CVA, Diverticulitis, Homicidal, Suicidal, threat to staff... and all critical care pts) @ -[No] Disposition Clinical Impression: New onset a-fib, Pneumonia, CHF (congestive heart failure) Disposition: ADMITTED IP TO THIS HOSP Condition: Stable Is patient prescribed a controlled substance at d/c from ED?: No Time of Disposition: 03:38 Decision to Admit Reason: Admit from EC Decision Date: 10/24/24 Decision Time: 03:38
[2024-10-24] MEDS ORDERED: NALOXONE 0.4 MG/ML 1 ML VIAL IV PRN (03:42)
[2024-10-24] MEDS ORDERED: PNEUMONIA PROTOCOL UTILIZED 1 EACH MISC PO PRN (03:48)
[2024-10-24] MEDS: MORPHINE SULFATE 4 MG/ML SYRINGE IVP PRN (04:44)
[2024-10-24] MEDS ORDERED: DEXTROSE 50% SYRINGE 50 ML IVP PRN ×2 (09:18)
[2024-10-24] MEDS: HEPARIN SODIUM 1,000 UN/ML (10ML VL) IV PRN (09:19)
--- NOTE | 2024-10-24 10:12 | XR ---
EXAMINATION TYPE: XR chest 1V portable DATE OF EXAM: 10/24/2024 COMPARISON: 08/29/2024 CLINICAL INDICATION: Female, 69 years old with history of SOB; TECHNIQUE: Single frontal view of the chest is obtained. FINDINGS: There is marked pulmonary vascular congestion and mild pulmonary edema There are small bilateral pleu ral effusions. There is no pneumothorax. There is cervical fusion and a reverse left shoulder prosthesis. IMPRESSION: Moderate to marked acute cardiopulmonary disease, likely CHF. [facility], , 10/24/2024 10:09 AM
[2024-10-24 12:10] LABS: ALT 20 U/L (4-34); AST 46 U/L (14-36); African American GFR (CKD) 77 (>60 ml/min/1.73 sqM); Albumin 3.4 g/dL (3.5-5.0); Alkaline Phosphatase 698 U/L (38-126); Anion Gap 14 mmol/L; Blood Urea Nitrogen 15 mg/dL (7-17); C Reactive Protein 0.9 mg/dL (<1.0); Carbon Dioxide 26 mmol/L (22-30); Chloride 97 mmol/L (98-107); Glucose 223 mg/dL (74-99); Non-African American GFR(CKD) 67 (>60 ml/min/1.73 sqM); Sodium 137 mmol/L (137-145); Total Bilirubin 0.7 mg/dL (0.2-1.3); Total Protein 6.6 g/dL (6.3-8.2)
[2024-10-24] MEDS: INSULIN LISPRO (HumaLOG) 100 UNIT/ML 10 mL VL SQ SCH (12:43)
--- NOTE | 2024-10-24 13:41 | P.HPIM ---
History of Present Illness H&P Date: 10/24/24 History of present illness; patient 69-year-old lady with past medical history significant for hypertension, hyperlipidemia, asthma who presented to the ER as a transfer from [facility] for new onset A-fib with RVR. Patient initially presented to [facility] for shortness of breath and chest pressure for last 2 days. Patient stated that she felt as if someone was sitting on her chest, this feeling was intermittent, nonradiating, no aggravating relieving factor associate with this chest pain. Patient also complaining of shortness of breath at time. Patient denies any palpitations. There was no complaint of orthopnea or PND there was no complaint of fever or chills. Patient any nausea or vomiting. Patient was worked up in the ER, was found to be in A-fib with RVR and started on Cardizem drip. Patient also has CT chest done that showed possible CHF with pneumonia. Patient was transferred to [facility] for cardiology evaluation REVIEW OF SYSTEMS: CONSTITUTIONAL: No fever, no malaise, no fatigue. HEENT: No recent visual problems or hearing problems. Denied any sore throat. CARDIOVASCULAR: As mentioned above PULMONARY: As mentioned above GASTROINTESTINAL: No diarrhea, no nausea, no vomiting, no abdominal pain. NEUROLOGICAL: No headaches, no weakness, no numbness. HEMATOLOGICAL: Denies any bleeding or petechiae. GENITOURINARY: Denies any burning micturition, frequency, or urgency. MUSCULOSKELETAL/RHEUMATOLOGICAL: Denies any joint pain, swelling, or any muscle pain. ENDOCRINE: Denies any polyuria or polydipsia. The rest of the 14-point review of systems is negative. PHYSICAL EXAMINATION: GENERAL: The patient is alert and oriented x3, not in any acute distress. Well developed, well nourished. HEENT: Pupils are round and equally reacting to light. EOMI. No scleral icterus. No conjunctival pallor. Normocephalic, atraumatic. No pharyngeal erythema. No thyromegaly. CARDIOVASCULAR: S1 and S2 present. No murmurs, rubs, or gallops. Irregular in rate and rhythm PULMONARY: Chest is clear to auscultation, no wheezing or crackles. ABDOMEN: Soft, nontender, nondistended, normoactive bowel sounds. No palpable organomegaly. MUSCULOSKELETAL: No joint swelling or deformity. EXTREMITIES: No cyanosis, clubbing, or pedal edema. NEUROLOGICAL: Gross neurological examination did not reveal any focal deficits. SKIN: No rashes. Assessment and plan A-fib with RVR Bacterial pneumonia Hypothyroidism Hypertension Asthma Monitor vital signs Monitor CBC Monitor CMP Continue telemetry monitoring Serial troponin Ordered HbA1c level Ordered 2D echo Ordered IV Cardizem drip Ordered IV heparin drip Ordered IV Rocephin azithromycin Cardiology consulted Pulmonology consulted Labs and medication were reviewed.. Continue same treatment. Continue with symptomatic treatment. Resume home medication. Monitor labs and vitals. DVT and GI prophylaxis. Further recommendations as per clinical course of the patient Dictation was produced using Divvyshot dictation software. please excuse any grammatical, word or spelling errors. Past Medical History Past Medical History: Asthma, Cancer, COPD, Diabetes Mellitus, GERD/Reflux, Hyperlipidemia, Hypertension, Musculoskeletal Disorder Additional Past Medical History / Comment(s): Migraine headaches. Hx kidney stone. Chronic back pain, numbness and tingling bilateral lower extremities. Right Breast cancer History of Any Multi-Drug Resistant Organisms: None Reported, MRSA Date of last positivie culture/infection: 2011 MDRO Source:: UNK Past Surgical History: Appendectomy, Back Surgery, Breast Surgery, Cholecystectomy, Joint Replacement, Orthopedic Surgery Additional Past Surgical History / Comment(s): Fusion w/ kane also back surgery 04/21/2019. Left Shoulder Replacement, Right knee replacement, plate in right wrist, left thumb joint repair, Right CTR, Right shoulder arthroscopy. micheal cataracts, LARYNGOSCOPY, November 2016 Cervical Plate, PAIN CLINIC PROCEDURES, right masectomy Past Anesthesia/Blood Transfusion Reactions: No Reported Reaction Past Psychological History: No Psychological Hx Reported Smoking Status: Former smoker - Past Family History Brother(s) Family Medical History: Cancer, Myocardial Infarction ([place]) Father Family Medical History: Cancer Additional Family Medical History / Comment(s): throat, colon, liver, and brain cancer. Mother Family Medical History: Myocardial Infarction ([place]) Additional Family Medical History / Comment(s): at 54 of [place]. Medications and Allergies Home Medications Medication Instructions Recorded Confirmed Type Butalb/Acetaminophen/Caffeine 1 tab PO BID PRN 04/11/14 10/24/24 History [Fioricet 50-325-40 mg Tablet] lisinopriL [Zestril] 40 mg PO DAILY 04/04/16 10/24/24 History Albuterol Sulfate [Albuterol 2 puff INHALATION RT-QID PRN 03/09/24 10/24/24 History Sulfate Hfa] Atorvastatin [Lipitor] 10 mg PO DAILY 03/09/24 10/24/24 History Baclofen [Lioresal] 20 mg PO BID 08/18/24 10/24/24 History amLODIPine [Norvasc] 10 mg PO DAILY 08/18/24 10/24/24 History Anastrozole [Arimidex] 1 mg PO DAILY tab 08/31/24 10/24/24 Rx Benzonatate [Tessalon Perles] 100 mg PO TID PRN cap 08/31/24 10/24/24 Rx Insulin Glargine,Hum.rec.anlog 30 units SQ HS #0 08/31/24 10/24/24 Rx [Lantus Solostar Pen] Pantoprazole [Protonix] 40 mg PO AC-BID #0 tab 08/31/24 10/24/24 Rx guaiFENesin-DM 100-10MG/5ML 5 ml PO Q6HR PRN ml 08/31/24 10/24/24 Rx [Robitussin DM] Albuterol Nebulized [Ventolin 2.5 mg INHALATION RT-QID 10/24/24 10/24/24 History Nebulized] Docusate [Colace] 100 mg PO DAILY 10/24/24 10/24/24 History Fluticasone Propion/Salmeterol 1 puff INHALATION RT-BID 10/24/24 10/24/24 History [Fluticasone-Salmeterol 250-50] Insulin Lispro [humaLOG Kwikpen] See Protocol SQ ACHS 10/24/24 10/24/24 History Morphine Sulfate ER [Ms Contin] 30 mg PO BID 10/24/24 10/24/24 History Morphine Sulfate Ir [MSIR] 15 mg PO Q4-6H PRN 10/24/24 10/24/24 History Ondansetron Odt [Zofran Odt] 4 mg PO BID PRN 10/24/24 10/24/24 History Allergies Allergy/AdvReac Type Severity Reaction Status Date / Time gabapentin AdvReac Confusion Verified 10/24/24 10:09 ibuprofen [From Motrin] AdvReac Abdominal Verified 10/24/24 10:09 Pain and vomiting pregabalin [From Lyrica] AdvReac Confusion Verified 10/24/24 10:09 Physical Exam Vitals: Vital Signs Temp Pulse Resp BP Pulse Ox 10/24/24 07:24 90 18 136/92 99 10/24/24 06:47 93 16 146/87 100 10/24/24 02:56 95 18 130/70 100 10/24/24 00:28 97.7 F 121 H 20 146/85 98 Intake and Output 10/23/24 10/24/24 10/24/24 22:59 06:59 14:59 Output Total 1950 Balance -1950 Output: Urine 1950 Other: Weight 90.718 kg Results CBC & Chem 7: 10/24/24 09:39 Labs: Abnormal Lab Results - Last 24 Hours (Table) 10/24/24 Range/Units 07:30 APTT 38.2 H (22.0-30.0) sec
--- NOTE | 2024-10-24 14:58 | P.CRDCN ---
History of Present Illness Consult date: 10/24/24 History of present illness: HISTORY OF PRESENTING ILLNESS: 69-year-old female with past medical history of hypertension, dyslipidemia, asthma. She was transferred from [facility] because of new onset atrial fibrillation with RVR. She initially presented because of substernal chest pressure and increased worsening shortness of breath with minimal exertion for last 2 days. She denies any lightheadedness dizziness or syncopal episode. She also has history of breast cancer, mediastinal lymphadenopathy, COPD, morbid obesity, type 2 diabetes, hypertension dyslipidemia. On admission she was found to be in A-fib with RVR and was started on Cardizem drip. Her troponins x 2 were negative, HbA1c was 6.2 BUN 15, creatinine 0.8 Chest x-ray shows mild pulm congestion with signs of possible pneumonia in the right lower lung. BP 130/70, heart rate 95 bpm. EKG shows atrial fibrillation with mild IVCD, heart rate 89 bpm. REVIEW OF SYSTEMS: 14 point review of system is negative except what is mentioned above in HPI. PHYSICAL EXAMINATION: Neck: Brisk carotid upstroke, no jugular venous distention. Lungs: Mild crackles or rhonchi audible Heart: Irregularly irregular pulse, S1-S2 audible, no significant murmurs Abdomen: Soft nontender, positive bowel sounds. Extremities: No edema, intact distal pulses. Neuro: Alert, oritented, no focal deficits. Detailed neuro exam was not performed. ASSESSMENT: # Atrial fibrillation with RVR, newly diagnosed on current admission # Complicated pneumonia # Breast cancer diagnosed in 2020 with right mastectomy # Mediastinal lymphadenopathy # Chronic comorbidities: COPD, type 2 diabetes, hypertension, dyslipidemia PLAN: Obtain NT-proBNP lipid and TSH Obtain echocardiogram Start metoprolol 50 mg twice daily Start Eliquis. Discontinue heparin drip. Magnesium sulfate 2 g Continue to monitor telemetry electrolytes Infectious workup Elgin Mcfadden MD, FACC, RPVI Thank you for allowing [facility] to participate in this patient's care. Feel free to reach out in case of any followup questions. Past Medical History Past Medical History: Asthma, Cancer, COPD, Diabetes Mellitus, GERD/Reflux, Hyperlipidemia, Hypertension, Musculoskeletal Disorder Additional Past Medical History / Comment(s): Migraine headaches. Hx kidney stone. Chronic back pain, numbness and tingling bilateral lower extremities. Right Breast cancer History of Any Multi-Drug Resistant Organisms: None Reported, MRSA Date of last positivie culture/infection: 2011 MDRO Source:: UNK Past Surgical History: Appendectomy, Back Surgery, Breast Surgery, Ch olecystectomy, Joint Replacement, Orthopedic Surgery Additional Past Surgical History / Comment(s): Fusion w/ kane also back surgery 04/21/2019. Left Shoulder Replacement, Right knee replacement, plate in right wrist, left thumb joint repair, Right CTR, Right shoulder arthroscopy. micheal cataracts, LARYNGOSCOPY, November 2016 Cervical Plate, PAIN CLINIC PROCEDURES, right masectomy Past Anesthesia/Blood Transfusion Reactions: No Reported Reaction Past Psychological History: No Psychological Hx Reported Smoking Status: Former smoker - Past Family History Brother(s) Family Medical History: Cancer, Myocardial Infarction ([place]) Father Family Medical History: Cancer Additional Family Medical History / Comment(s): throat, colon, liver, and brain cancer. Mother Family Medical History: Myocardial Infarction ([place]) Additional Family Medical History / Comment(s): at 54 of [place]. Medications and Allergies Home Medications Medication Instructions Recorded Confirmed Type Butalb/Acetaminophen/Caffeine 1 tab PO BID PRN 04/11/14 10/24/24 History [Fioricet 50-325-40 mg Tablet] lisinopriL [Zestril] 40 mg PO DAILY 04/04/16 10/24/24 History Albuterol Sulfate [Albuterol 2 puff INHALATION RT-QID PRN 03/09/24 10/24/24 History Sulfate Hfa] Atorvastatin [Lipitor] 10 mg PO DAILY 03/09/24 10/24/24 History Baclofen [Lioresal] 20 mg PO BID 08/18/24 10/24/24 History amLODIPine [Norvasc] 10 mg PO DAILY 08/18/24 10/24/24 History Anastrozole [Arimidex] 1 mg PO DAILY tab 08/31/24 10/24/24 Rx Benzonatate [Tessalon Perles] 100 mg PO TID PRN cap 08/31/24 10/24/24 Rx Insulin Glargine,Hum.rec.anlog 30 units SQ HS #0 08/31/24 10/24/24 Rx [Lantus Solostar Pen] Pantoprazole [Protonix] 40 mg PO AC-BID #0 tab 08/31/24 10/24/24 Rx guaiFENesin-DM 100-10MG/5ML 5 ml PO Q6HR PRN ml 08/31/24 10/24/24 Rx [Robitussin DM] Albuterol Nebulized [Ventolin 2.5 mg INHALATION RT-QID 10/24/24 10/24/24 History Nebulized] Docusate [Colace] 100 mg PO DAILY 10/24/24 10/24/24 History Fluticasone Propion/Salmeterol 1 puff INHALATION RT-BID 10/24/24 10/24/24 History [Fluticasone-Salmeterol 250-50] Insulin Lispro [humaLOG Kwikpen] See Protocol SQ ACHS 10/24/24 10/24/24 History Morphine Sulfate ER [Ms Contin] 30 mg PO BID 10/24/24 10/24/24 History Morphine Sulfate Ir [MSIR] 15 mg PO Q4-6H PRN 10/24/24 10/24/24 History Ondansetron Odt [Zofran Odt] 4 mg PO BID PRN 10/24/24 10/24/24 History Allergies Allergy/AdvReac Type Severity Reaction Status Date / Time gabapentin AdvReac Confusion Verified 10/24/24 10:09 ibuprofen [From Motrin] AdvReac Abdominal Verified 10/24/24 10:09 Pain and vomiting pregabalin [From Lyrica] AdvReac Confusion Verified 10/24/24 10:09 Physical Exam Vitals: Vital Signs Temp Pulse Resp BP Pulse Ox 10/24/24 12:35 97 18 154/79 100 10/24/24 07:24 90 18 136/92 99 10/24/24 06:47 93 16 146/87 100 10/24/24 02:56 95 18 130/70 100 10/24/24 00:28 97.7 F 121 H 20 146/85 98 Intake and Output 10/23/24 10/24/24 10/24/24 22:59 06:59 14:59 Intake Total 77 Output Total 1950 Balance -1949 77 Intake: Intake, IV Titration 77 Amount Heparin Sod,Pork in 0.45% 77 NaCl 25,000 unit In 0.45 % NaCl 1 250ml.bag @ 11. 023 UNITS/KG/HR 10 mls/hr IV .Q24H PENDING S[facility] TO [facility] Rx#: [id number] Output: Urine 1950 Other: Weight 90.718 kg Results 10/24/24 09:39 Cardiac Enzymes 10/24/24 10/24/24 10/24/24 Range/Units 07:30 09:39 09:39 AST 46 H (14-36) U/L Troponin I <0.012 <0.012 (0.000-0.034) ng/mL Coagulation 10/24/24 Range/Units 07:30 APTT 38.2 H (22.0-30.0) sec Comprehensive Metabolic Panel 10/24/24 Range/Units 09:39 Sodium 137 (137-145) mmol/L Potassium 4.0 (3.5-5.1) mmol/L Chloride 97 L (98-107) mmol/L Carbon Dioxide 26 (22-30) mmol/L BUN 15 (7-17) mg/dL Creatinine 0.89 (0.52-1.04) mg/dL Glucose 223 H (74-99) mg/dL Calcium 9.0 (8.4-10.2) mg/dL AST 46 H (14-36) U/L ALT 20 (4-34) U/L Alkaline Phosphatase 698 H (38-126) U/L Total Protein 6.6 (6.3-8.2) g/dL Albumin 3.4 L (3.5-5.0) g/dL Current Medications Generic Name Dose Route Start Last Admin Trade Name Freq PRN Reason Stop Dose Admin Apixaban 5 mg 10/24/24 21:00 Apixaban 5 Mg Tab PO BID [facility]ENDING [facility] Protocol Azithromycin 500 mg 10/25/24 09:00 Azithromycin 500 Mg Tab PO 10/26/24 09:01 DAILY JOCELYNE Protocol Dextrose/Water 25 ml 10/24/24 09:18 Dextrose 50% Syringe 50 Ml IVP PER PROTOCOL PRN Hypoglycemia Protocol Dextrose/Water 50 ml 10/24/24 09:18 Dextrose 50% Syringe 50 Ml IVP PER PROTOCOL PRN Hypoglycemia Protocol Diltiazem HCl 125 mg/ Sodium 125 mls @ 5 mls/hr 10/24/24 01:15 10/24/24 01:46 Chloride IV 5 mg/hr .Q24H JOCELYNE 5 mls/hr Administration 5 MG/HR Ceftriaxone Sodium 2 gm/ 50 mls @ 100 mls/hr 10/25/24 09:00 Sodium Chloride IVPB 10/28/24 09:29 Q24HR PENDING S[facility] Protocol Magnesium Sulfate/Dextrose 1 100 mls @ 100 mls/hr 10/24/24 15:00 gm/ IV Solution IVPB 10/24/24 16:59 Q1H PENDING SALE TO [facility] Insulin Human Lispro 0 unit 10/24/24 12:30 10/24/24 12:43 Insulin Lispro (Humalog) 100 Unit/Ml 10 Ml Vl SQ 1 unit ACHS PENDING SALE [facility] Administration Protocol Metoprolol Tartrate 50 mg 10/24/24 21:00 Metoprolol Tartrate 25 Mg Tab PO BID PENDING S[facility] Miscellaneous Information 1 each 10/24/24 03:48 Pneumonia Protocol Utilized 1 Each Misc PO ONCE PRN Per Protocol Morphine Sulfate 4 mg 10/24/24 03:47 10/24/24 12:42 Morphine Sulfate 4 Mg/Ml Syringe IVP 4 mg Q4HR PRN Administration Pain Naloxone HCl 0.2 mg 10/24/24 03:42 Naloxone 0.4 Mg/Ml 1 Ml Vial IV Q2M PRN Opioid Reversal Intake and Output 10/23/24 10/24/24 10/24/24 22:59 06:59 14:59 Intake Total 77 Output Total 1950 Balance -1950 77 Intake: Intake, IV Titration 77 Amount Heparin Sod,Pork in 0.45% 77 NaCl 25,000 unit In 0.45 % NaCl 1 250ml.bag @ 11. 023 UNITS/KG/HR 10 mls/hr IV .Q24H PEND[facility] Rx#: [id number] Output: Urine 1950 Other: Weight 90.718 kg 10/24/24 09:39
--- NOTE | 2024-10-24 15:20 | P.CNPUL ---
History of Present Illness Consult date: 10/24/24 Requesting physician: Darwin Orona Reason for consult: chest pain Chief complaint: Chest pain, shortness of breath History of present illness: This is a 69-year-old female with a known history of diabetes mellitus, hypertension, hyperlipidemia, mild bronchial asthma who presented to [facility] with chest pressure and shortness of breath for 2 days. She was transferred here for further evaluation after being found to be in atrial fibrillation with rapid ventricular response. Chest x-ray reveals pulmonary vascular congestion and mild pulmonary edema with small bilateral effusions. Sodium 137. Potassium 4.0. Bicarb 26. BUN 15. Creatinine 0.89. Glucose 223. Troponins negative x 2. She is seen in consultation in the emergency department. She is currently sitting up on a stretcher. Awake and alert in no acute distress. Maintaining good O2 saturations up to 99% on room air. She remains in atrial fibrillation with a controlled ventricular response. She is currently on a Cardizem drip at 5 mg/h. Heparin drip per weight-based protocol. Review of Systems REVIEW OF SYSTEMS: CONSTITUTIONAL: Denies any recent significant weight loss or weight gain. EYES: Denies change in vision. EARS, NOSE, MOUTH, THROAT: Denies headaches, denies sore throat. CARDIOVASCULAR: Positive for chest pain, palpitations no syncopal episodes. RESPIRATORY: Positive for shortness of breath, cough, congestion or hemoptysis. GASTROINTESTINAL: Denies change in appetite, denies abdominal pain GENITOURINARY: Denies hematuria, denies infections. MUSKULOSKELETAL: Denies pain, denies swelling. INTEGUMENTARY: Denies rash, denies eczema. NEUROLOGICAL: Denies recent memory loss, no recent seizure activity. PSYCHIATRIC: Denies anxiety, denies depression. HEMATOLOGIC/LYMPHATIC: Denies anemia, denies enlarged lymph nodes. Past Medical History Past Medical History: Asthma, Cancer, COPD, Diabetes Mellitus, GERD/Reflux, Hyperlipidemia, Hypertension, Musculoskeletal Disorder Additional Past Medical History / Comment(s): Migraine headaches. Hx kidney stone. Chronic back pain, numbness and tingling bilateral lower extremities. Right Breast cancer History of Any Multi-Drug Resistant Organisms: None Reported, MRSA Date of last positivie culture/infection: 2011 MDRO Source:: UNK Past Surgical History: Appendectomy, Back Surgery, Breast Surgery, Cholecystectomy, Joint Replacement, Orthopedic Surgery Additional Past Surgical History / Comment(s): Fusion w/ kane also back surgery 04/21/2019. Left Shoulder Replacement, Right knee replacement, plate in right wrist, left thumb joint repair, Right CTR, Right shoulder arthroscopy. micheal cataracts, LARYNGOSCOPY, November 2016 Cervical Plate, PAIN CLINIC PROCEDURES, right masectomy Past Anesthesia/Blood Transfusion Reactions: No Reported Reaction Past Psychological History: No Psychological Hx Reported Smoking Status: Former smoker - Past Family History Brother(s) Family Medical History: Cancer, Myocardial Infarction ([place]) Father Family Medical History: Cancer Additional Family Medical History / Comment(s): throat, colon, liver, and brain cancer. Mother Family Medical History: Myocardial Infarction ([place]) Additional Family Medical History / Comment(s): at 54 of [place]. Medications and Allergies Home Medications Medication Instructions Recorded Confirmed Type Butalb/Acetaminophen/Caffeine 1 tab PO BID PRN 04/11/14 10/24/24 History [Fioricet 50-325-40 mg Tablet] lisinopriL [Zestril] 40 mg PO DAILY 04/04/16 10/24/24 History Albuterol Sulfate [Albuterol 2 puff INHALATION RT-QID PRN 03/09/24 10/24/24 History Sulfate Hfa] Atorvastatin [Lipitor] 10 mg PO DAILY 03/09/24 10/24/24 History Baclofen [Lioresal] 20 mg PO BID 08/18/24 10/24/24 History amLODIPine [Norvasc] 10 mg PO DAILY 08/18/24 10/24/24 History Anastrozole [Arimidex] 1 mg PO DAILY tab 08/31/24 10/24/24 Rx Benzonatate [Tessalon Perles] 100 mg PO TID PRN cap 08/31/24 10/24/24 Rx Insulin Glargine,Hum.rec.anlog 30 units SQ HS #0 08/31/24 10/24/24 Rx [Lantus Solostar Pen] Pantoprazole [Protonix] 40 mg PO AC-BID #0 tab 08/31/24 10/24/24 Rx guaiFENesin-DM 100-10MG/5ML 5 ml PO Q6HR PRN ml 08/31/24 10/24/24 Rx [Robitussin DM] Albuterol Nebulized [Ventolin 2.5 mg INHALATION RT-QID 10/24/24 10/24/24 History Nebulized] Docusate [Colace] 100 mg PO DAILY 10/24/24 10/24/24 History Fluticasone Propion/Salmeterol 1 puff INHALATION RT-BID 10/24/24 10/24/24 History [Fluticasone-Salmeterol 250-50] Insulin Lispro [humaLOG Kwikpen] See Protocol SQ ACHS 10/24/24 10/24/24 History Morphine Sulfate ER [Ms Contin] 30 mg PO BID 10/24/24 10/24/24 History Morphine Sulfate Ir [MSIR] 15 mg PO Q4-6H PRN 10/24/24 10/24/24 History Ondansetron Odt [Zofran Odt] 4 mg PO BID PRN 10/24/24 10/24/24 History Allergies Allergy/AdvReac Type Severity Reaction Status Date / Time gabapentin AdvReac Confusion Verified 10/24/24 10:09 ibuprofen [From Motrin] AdvReac Abdominal Verified 10/24/24 10:09 Pain and vomiting pregabalin [From Lyrica] AdvReac Confusion Verified 10/24/24 10:09 Physical Exam Vitals: Vital Signs Temp Pulse Resp BP Pulse Ox 10/24/24 12:35 97 18 154/79 100 10/24/24 07:24 90 18 136/92 99 10/24/24 06:47 93 16 146/87 100 10/24/24 02:56 95 18 130/70 100 10/24/24 00:28 97.7 F 121 H 20 146/85 98 Intake and Output 10/24/24 10/24/24 10/24/24 06:59 14:59 22:59 Intake Total 77 Output Total 1950 Balance -1950 77 Intake: Intake, IV Titration 77 Amount Heparin Sod,Pork in 0.45% 77 NaCl 25,000 unit In 0.45 % NaCl 1 250ml.bag @ 11. 023 UNITS/KG/HR 10 mls/hr IV .Q24H [facility] Rx#: [id number] Output: Urine 1950 Other: Weight 90.718 kg GENERAL EXAM: Alert, pleasant 69-year-old female, on room air, fairly, comfortable in no apparent distress. HEAD: Normocephalic. EYES: Normal reaction of pupils, equal size. NOSE: Clear with pink turbinates. THROAT: No erythema or exudates. NECK: No masses, no JVD. CHEST: No chest wall deformity. LUNGS: Equal air entry with crackles in the bilateral bases. CVS: S1 and S2 normal with no audible murmur, irregular rhythm. ABDOMEN: No hepatosplenomegaly, normal bowel sounds, no guarding or rigidity. SPINE: No scoliosis or deformity SKIN: No rashes CENTRAL NERVOUS SYSTEM: No focal deficits, tone is normal in all 4 extremities. EXTREMITIES: There is no peripheral edema. No clubbing, no cyanosis. Marta pheral pulses are intact. Results - Laboratory Findings CBC and BMP: 10/24/24 09:39 Abnormal lab findings: Abnormal Labs 10/24/24 10/24/24 10/24/24 07:30 09:39 09:39 ESR APTT 38.2 H Chloride 97 L Glucose 223 H Hemoglobin A1c 6.2 H AST 46 H Alkaline Phosphatase 698 H Albumin 3.4 L 10/24/24 09:39 ESR 47 H APTT Chloride Glucose Hemoglobin A1c AST Alkaline Phosphatase Albumin - Diagnostic Findings Chest x-ray: image reviewed Assessment and Plan Assessment: Chest pressure and shortness of breath secondary to atrial fibrillation with a rapid ventricular response Atrial fibrillation with a rapid ventricular response Mild intermittent chronic bronchial asthma Diabetes mellitus, type II Hypertension Hyperlipidemia Chronic back pain Breast cancer status post right mastectomy Former smoker Gastroesophageal reflux disease Plan: The patient was seen and evaluated Chest x-ray, EKG, labs and medications reviewed Heart rate better controlled Currently on Cardizem drip Continued on a heparin drip Add Symbicort and albuterol Check a procalcitonin Continue antibiotics for now Echocardiogram pending proBNP level pending May benefit from diuretics We will continue to follow and make further recommendations based on her clinical status I have personally seen and examined the patient, performed the documentation and the assessment and plan as written. Number of minutes spent on the visit: 20 Dictation was produced using Trusightation software. Please excuse any grammatical, word or spelling errors.
[2024-10-24] MEDS: MAGNESIUM SULFATE-D5W PMX 1 GM in DEXTROSE/WATER 1 100ML.BAG IVPB SCH (15:43)
[2024-10-24 17:01] LABS: Glucose,Whole Blood 142 mg/dL (70-110)
[2024-10-24 17:59] LABS: NT-Pro-B-Type Natriuretic Pept 2490 pg/mL
[2024-10-24 20:12] LABS: Glucose,Whole Blood 179 mg/dL (70-110)
[2024-10-24] MEDS: APIXABAN 5 MG TAB PO SCH (20:23)
[2024-10-24] MEDS: METOPROLOL TARTRATE 50 MG TAB PO SCH (20:23)
--- NOTE | 2024-10-25 06:34 | CA ---
Transthoracic Echo Report Name: Steffanie Valentino Age: 69 Gender: F : 1955 Exam Date: 10/24/2024 14:58 Exam Location: [place] [facility] Ht (in): 62 Wt (lb): 200 Ordering Physician: Barrett Jean MD Attending/Referring Phys: Spooler Operator Automatic Baylee Nelson RDCS Procedure CPT: Indications: SHORTNESS OF BREATH Cardiac Hx: Technical Quality: Fair Contrast 1: Total Dose (mL): Contrast 2: Total Dose (mL): MEASUREMENTS (Male / Female) Normal Values 2D ECHO LV Diastolic Diameter PLAX 4.5 cm 4.2 - 5.9 / 3.9 - 5.3 cm LV Systolic Diameter PLAX 2.7 cm IVS Diastolic Thickness 1.2 cm 0.6 - 1.0 / 0.6 - 0.9 cm LVPW Diastolic Thickness 1.2 cm 0.6 - 1.0 / 0.6 - 0.9 cm LV Relative Wall Thickness 0.5 RV Internal Dim ED PLAX 2.9 cm LVOT Diameter 1.7 cm LA Volume 74.9 cm??? 18 - 58 / 22 - 52 cm??? LA Volume Index 36.8 cm???/m??? 16 - 28 cm???/m??? M-MODE Aortic Root Diameter MM 2.7 cm LA Systolic Diameter MM 6.1 cm LA Ao Ratio MM 2.3 AV Cusp Separation MM 1.6 cm DOPPLER AV Peak Velocity 240.0 cm/s AV Peak Gradient 23.0 mmHg AV Mean Velocity 165.5 cm/s AV Mean Gradient 12.2 mmHg AV Velocity Time Integral 45.0 cm AI Peak Velocity 331.6 cm/s AI Peak Gradient 44.0 mmHg AI Pressure Half Time 349.5 ms LVOT Peak Velocity 107.4 cm/s LVOT Peak Gradient 4.6 mmHg LVOT Velocity Time Integral 22.5 cm LVOT Stroke Volume 51.6 cm??? LVOT Stroke Volume Index 27.0 ml/m??? LVOT Cardiac Index 2156.2 cm???/min???m??? AV Area Cont Eq vti 1.1 cm??? AV Area Cont Eq pk 1.0 cm??? MV Area PHT 4.3 cm??? Mitral E Point Velocity 107.6 cm/s Mitral A Point Velocity 1.0 cm/s Mitral E to A Ratio 111.9 MV Deceleration Time 176.7 ms TR Peak Velocity 276.6 cm/s TR Peak Gradient 30.6 mmHg Right Ventricular Systolic Press 35.1 mmHg FINDINGS Left Ventricle Mildly increased left ventricular wall thickness. Left ventricular cavity size normal. Normal left ventricular systolic function with no obvious regional wall motion abnormalities. Left ventricular ejection fraction is estimated at 55-60 %. Right Ventricle Normal right ventricular size and function. Mild pulmonary hypertension. Right Atrium Normal right atrial size. Left Atrium Moderate increased left atrial volume. Mitral Valve Structurally normal mitral valve. Mitral valve thickened. Mild mitral annular calcification. Moderate mitral regurgitation. Aortic Valve Trileaflet aortic valve. No aortic stenosis. Mild aortic regurgitation. Tricuspid Valve Structurally normal tricuspid valve. Mild tricuspid regurgitation. Pulmonic Valve Structurally normal pulmonic valve. Trace pulmonic regurgitation. Pericardium No pericardial effusion. Aorta Normal size aortic root and proximal ascending aorta. CONCLUSIONS Left ventricular ejection fraction is estimated at 55-60 % Tachycardic rhythm No obvious regional wall motion abnormality Normal RV size and function, mild pulmonary hypertension with RVSP of 35 mmHg Moderate left atrial dilatation Moderate mitral regurgitation, mildly thickened mitral leaflets with mitral annular calcification Mild TR, normal RV size. Mild pulm hypertension RVSP 35 mmHg Previewed by: Dr Elgin Mcfadden (Electronically Signed) Final Date: 25 October 2024 06:33
[2024-10-25 07:25] LABS: Chol/HDL Ratio 2.53 Ratio
[2024-10-25 07:26] LABS: LDL Cholesterol,Calculated 46.8 mg/dL (0.0-131.0)
[2024-10-25] MEDS ORDERED: AZITHROMYCIN 500 MG TAB PO SCH (09:00)
[2024-10-25 09:24] LABS: Anisocytosis Slight; Basophils % (A) 1 %; Eosinophils # (A) 0.1 k/uL (0-0.7); Eosinophils % (A) 2 %; Hypochromasia Marked; Lymphocytes % (A) 26 %; MCH 27.9 pg (25.0-35.0); MCHC 30.1 g/dL (31.0-37.0); Mean Platelet Volume 8.7; Monocytes # (A) 0.2 k/uL (0-1.0); Monocytes % (A) 6 %; Neutrophils # (A) 2.4 k/uL (1.3-7.7); Neutrophils % (A) 64 %; Poikilocytosis Slight; RBC 3.23 m/uL (3.80-5.40); RDW 17.9 % (11.5-15.5); WBC 3.7 k/uL (3.8-10.6)
[2024-10-25 09:39] LABS: ALT 19 U/L (4-34); AST 38 U/L (14-36); African American GFR (CKD) 79 (>60 ml/min/1.73 sqM); Albumin 3.3 g/dL (3.5-5.0); Alkaline Phosphatase 640 U/L (38-126); Anion Gap 8 mmol/L; Blood Urea Nitrogen 17 mg/dL (7-17); Calcium 9.1 mg/dL (8.4-10.2); Carbon Dioxide 30 mmol/L (22-30); Chloride 98 mmol/L (98-107); Glucose 108 mg/dL (74-99); Non-African American GFR(CKD) 68 (>60 ml/min/1.73 sqM); Potassium 4.1 mmol/L (3.5-5.1); Sodium 136 mmol/L (137-145); Total Bilirubin 0.8 mg/dL (0.2-1.3); Total Protein 6.5 g/dL (6.3-8.2)
[2024-10-25 09:43] LABS: MCV 92.7 fL (80.0-100.0)
[2024-10-25 09:44] LABS: Platelet Count 122 k/uL (150-450)
[2024-10-25 09:52] LABS: Glucose,Whole Blood 114 mg/dL (70-110)
[2024-10-25] MEDS: FUROSEMIDE 10 MG/ML 2 ML VIAL IV SCH (10:42)
[2024-10-25 12:47] LABS: Glucose,Whole Blood 194 mg/dL (70-110)
--- NOTE | 2024-10-25 13:47 | P.PN ---
Subjective Progress Note Date: 10/25/24 patient 69-year-old lady with past medical history significant for hypertension, hyperlipidemia, asthma who presented to the ER as a transfer from [facility] for new onset A-fib with RVR. Patient initially presented to [facility] for shortness of breath and chest pressure for last 2 days. Patient stated that she felt as if someone was sitting on her chest, this feeling was intermittent, nonradiating, no aggravating relieving factor associate with this chest pain. Patient also complaining of shortness of breath at time. Patient denies any palpitations. There was no complaint of orthopnea or PND there was no complaint of fever or chills. Patient any nausea or vomiting. Patient was worked up in the ER, was found to be in A-fib with RVR and started on Cardizem drip. Patient also has CT chest done that showed possible CHF with pneumonia. Patient was transferred to [facility] for cardiology evaluation 10/25. Patient seen and examined.Blood work done this morning showed WBC 3.7, hemoglobin 9, platelet count 122, sodium 136 potassium 4.1, BUN 17, creatinine 0.88. 2D echo done showed LVEF of 55 to 60%, no regional wall motion of normality, normal RV size and function, mild pulmonary hypertension with RVSP of 35. Denies any chest pain. Denies any shortness of breath at rest. REVIEW OF SYSTEMS: CONSTITUTIONAL: No fever, no malaise,. CARDIOVASCULAR: No chest pain, no palpitations, no syncope. PULMONARY: Mentioned above GASTROINTESTINAL: No diarrhea, no nausea, no vomiting, no abdominal pain. NEUROLOGICAL: No headaches, no weakness, PHYSICAL EXAMINATION: GENERAL: The patient is alert and oriented x3, not in any acute distress. Well developed, well nourished. HEENT: Pupils are round and equally reacting to light. EOMI. No scleral icterus. No conjunctival pallor. Normocephalic, atraumatic. No pharyngeal erythema. No thyromegaly. CARDIOVASCULAR: S1 and S2 present. No murmurs, rubs, or gallops. Irregular in rate and rhythm PULMONARY: Chest is clear to auscultation, no wheezing or crackles. ABDOMEN: Soft, nontender, nondistended, normoactive bowel sounds. No palpable organomegaly. MUSCULOSKELETAL: No joint swelling or deformity. EXTREMITIES: No cyanosis, clubbing, or pedal edema. NEUROLOGICAL: Gross neurological examination did not reveal any focal deficits. SKIN: No rashes. Assessment and plan A-fib with RVR Acute hypoxic respiratory failure Bacterial pneumonia ruled out Hypothyroidism Hypertension Mild intermittent chronic bronchial asthma Monitor vital signs Monitor CBC Monitor CMP Continue telemetry monitoring Serial troponin 2D echo done showed LVEF of 55 to 60%, no regional wall motion of normality, normal RV size and function, mild pulmonary hypertension with RVSP of 35 Continue Eliquis, metoprolol Antibiotics were discontinued as Pro-[place] was normal Strict I's and O's, daily weights, continue IV Lasix 20 mg every 12 Cardiology following Pulmonology following Labs and medication were reviewed.. Continue same treatment. Continue with symptomatic treatment. Resume home medication. Monitor labs and vitals. DVT and GI prophylaxis. Further recommendations as per clinical course of the patient Dictation was produced using [email or web address] dictation software. please excuse any grammatical, word or spelling errors. Objective - Vital Signs Vital signs: Vital Signs Temp 98.2 F 10/25/24 06:04 Pulse 89 10/25/24 07:41 Resp 15 10/25/24 08:27 BP 136/87 10/25/24 06:04 Pulse Ox 99 10/25/24 07:41 FiO2 Intake & Output 10/24/24 10/25/24 10/25/24 17:59 06:59 18:59 Intake Total Output Total Balance Intake: Intake, IV Titration Amount Diltiazem 125 mg In Sodium Chloride 0.9% 100 ml @ 5 MG/HR 5 mls/hr IV .Q24H [facility] Rx#:[id number] Heparin Sod,Pork in 0.45% NaCl 25,000 unit In 0.45 % NaCl 1 250ml.bag @ 11. 023 UNITS/KG/HR 10 mls/hr IV .Q24H [facility] Rx#: [id number] Output: Urine - Labs CBC & Chem 7: 10/25/24 09:08 10/25/24 09:08 Labs: Abnormal Lab Results - Last 24 Hours (Table) 10/24/24 10/24/24 10/24/24 Range/Units 09:39 09:39 09:39 WBC (3.8-10.6) k/uL RBC (3.80-5.40) m/uL Hgb (11.4-16.0) gm/dL Hct (34.0-46.0) % MCHC (31.0-37.0) g/dL RDW (11.5-15.5) % Plt Count (150-450) k/uL ESR 47 H (0-30) mm/Hr Sodium (137-145) mmol/L Chloride 97 L (98-107) mmol/L Glucose 223 H (74-99) mg/dL POC Glucose (mg/dL) (70-110) mg/dL Hemoglobin A1c 6.2 H (<=6.0) % AST 46 H (14-36) U/L Alkaline Phosphatase 698 H (38-126) U/L Albumin 3.4 L (3.5-5.0) g/dL 10/24/24 10/24/24 10/25/24 Range/Units 17:00 20:10 09:08 WBC (3.8-10.6) k/uL RBC (3.80-5.40) m/uL Hgb (11.4-16.0) gm/dL Hct (34.0-46.0) % MCHC (31.0-37.0) g/dL RDW (11.5-15.5) % Plt Count (150-450) k/uL ESR (0-30) mm/Hr Sodium 136 L (137-145) mmol/L Chloride (98-107) mmol/L Glucose 108 H (74-99) mg/dL POC Glucose (mg/dL) 142 H 179 H (70-110) mg/dL Hemoglobin A1c (<=6.0) % AST 38 H (14-36) U/L Alkaline Phosphatase 640 H (38-126) U/L Albumin 3.3 L (3.5-5.0) g/dL 10/25/24 10/25/24 Range/Units 09:08 09:50 WBC 3.7 L (3.8-10.6) k/uL RBC 3.23 L (3.80-5.40) m/uL Hgb 9.0 L (11.4-16.0) gm/dL Hct 30.0 L (34.0-46.0) % MCHC 30.1 L (31.0-37.0) g/dL RDW 17.9 H (11.5-15.5) % Plt Count 122 L D (150-450) k/uL ESR (0-30) mm/Hr Sodium (137-145) mmol/L Chloride (98-107) mmol/L Glucose (74-99) mg/dL POC Glucose (mg/dL) 114 H (70-110) mg/dL Hemoglobin A1c (<=6.0) % AST (14-36) U/L Alkaline Phosphatase (38-126) U/L Albumin (3.5-5.0) g/dL
--- NOTE | 2024-10-25 14:37 | P.PN ---
Subjective Progress Note Date: 10/25/24 This is a 69-year-old female with a known history of diabetes mellitus, hypertension, hyperlipidemia, mild bronchial asthma who presented to [facility] with chest pressure and shortness of breath for 2 days. She was transferred here for further evaluation after being found to be in atrial fibrillation with rapid ventricular response. Chest x-ray reveals pulmonary vascular congestion and mild pulmonary edema with small bilateral effusions. Sodium 137. Potassium 4.0. Bicarb 26. BUN 15. Creatinine 0.89. Glucose 223. Troponins negative x 2. She is seen in consultation in the emergency de partment. She is currently sitting up on a stretcher. Awake and alert in no acute distress. Maintaining good O2 saturations up to 99% on room air. She remains in atrial fibrillation with a controlled ventricular response. She is currently on a Cardizem drip at 5 mg/h. Heparin drip per weight-based protocol. The patient is seen today October 25, 2024 in follow-up in the emergency department. She is currently sitting up on a stretcher. Awake and alert in no acute distress. Maintaining good O2 saturations in the 90s on 4 L/min per nasal cannula. She remains in atrial fibrillation. She is on a Cardizem drip at 5 mg/h. She had been transition to [facility]. Chest x-ray shows no acute pulmonary process. Procalcitonin was negative at 0.35. White count 3.7. Hemoglobin 9.0. Platelets 122. Sodium 136. Potassium 4.1. Bicarb 30. BUN 17. Creatinine 0.88. Glucose 108. Objective - Vital Signs Vital signs: Vital Signs Temp 98.2 F 10/25/24 06:04 Pulse 87 10/25/24 12:59 Resp 20 10/25/24 10:48 BP 141/81 10/25/24 10:48 Pulse Ox 99 10/25/24 10:48 FiO2 Intake & Output 10/24/24 10/25/24 10/25/24 17:59 06:59 18:59 Intake Total 48.917 Output Total Balance 48.917 Intake: Intake, IV Titration 48.917 Amount Diltiazem 125 mg In 48.917 Sodium Chloride 0.9% 100 ml @ 5 MG/HR 5 mls/hr IV .Q24H [facility] Rx#:[id number] Heparin Sod,Pork in 0.45% NaCl 25,000 unit In 0.45 % NaCl 1 250ml.bag @ 11. 023 UNITS/KG/HR 10 mls/hr IV .Q24H [facility] Rx#: [id number] Output: Urine - Exam GENERAL EXAM: Alert, 69-year-old female, on 4 L nasal cannula, comfortable in no apparent distress. HEAD: Normocephalic. EYES: Normal reaction of pupils, equal size. NOSE: Clear with pink turbinates. THROAT: No erythema or exudates. NECK: No masses, no JVD. CHEST: No chest wall deformity. LUNGS: Equal air entry with no crackles, wheeze, rhonchi or dullness. CVS: S1 and S2 normal with no audible murmur, irregular rhythm. ABDOMEN: No hepatosplenomegaly, normal bowel sounds, no guarding or rigidity. SPINE: No scoliosis or deformity SKIN: No rashes CENTRAL NERVOUS SYSTEM: No focal deficits, tone is normal in all 4 extremities. EXTREMITIES: There is no peripheral edema. No clubbing, no cyanosis. Peripheral pulses are intact. - Labs CBC & Chem 7: 10/25/24 09:08 10/25/24 09:08 Labs: Abnormal Lab Results - Last 24 Hours (Table) 10/24/24 10/24/24 10/24/24 Range/Units 09:39 09:39 17:00 WBC (3.8-10.6) k/uL RBC (3.80-5.40) m/uL Hgb (11.4-16.0) gm/dL Hct (34.0-46.0) % MCHC (31.0-37.0) g/dL RDW (11.5-15.5) % Plt Count (150-450) k/uL ESR 47 H (0-30) mm/Hr Sodium (137-145) mmol/L Glucose (74-99) mg/dL POC Glucose (mg/dL) 142 H (70-110) mg/dL Hemoglobin A1c 6.2 H (<=6.0) % AST (14-36) U/L Alkaline Phosphatase (38-126) U/L Albumin (3.5-5.0) g/dL 10/24/24 10/25/24 10/25/24 Range/Units 20:10 09:08 09:08 WBC (3.8-10.6) k/uL RBC (3.80-5.40) m/uL Hgb (11.4-16.0) gm/dL Hct (34.0-46.0) % MCHC (31.0-37.0) g/dL RDW (11.5-15.5) % Plt Count (150-450) k/uL ESR (0-30) mm/Hr Sodium 136 L (137-145) mmol/L Glucose 108 H (74-99) mg/dL POC Glucose (mg/dL) 179 H (70-110) mg/dL Hemoglobin A1c 6.1 H (<=6.0) % AST 38 H (14-36) U/L Alkaline Phosphatase 640 H (38-126) U/L Albumin 3.3 L (3.5-5.0) g/dL 10/25/24 10/25/24 10/25/24 Range/Units 09:08 09:50 12:45 WBC 3.7 L (3.8-10.6) k/uL RBC 3.23 L (3.80-5.40) m/uL Hgb 9.0 L (11.4-16.0) gm/dL Hct 30.0 L (34.0-46.0) % MCHC 30.1 L (31.0-37.0) g/dL RDW 17.9 H (11.5-15.5) % Plt Count 122 L D (150-450) k/uL ESR (0-30) mm/Hr Sodium (137-145) mmol/L Glucose (74-99) mg/dL POC Glucose (mg/dL) 114 H 194 H (70-110) mg/dL Hemoglobin A1c (<=6.0) % AST (14-36) U/L Alkaline Phosphatase (38-126) U/L Albumin (3.5-5.0) g/dL Assessment and Plan Assessment: Chest pressure and shortness of breath secondary to atrial fibrillation with a rapid ventricular response Atrial fibrillation with a rapid ventricular response Mild intermittent chronic bronchial asthma Diabetes mellitus, type II Hypertension Hyperlipidemia Chronic back pain Breast cancer status post right mastectomy Former smoker Gastroesophageal reflux disease Plan: The patient was seen and evaluated Labs and medications reviewed Echocardiogram reviewed Heart rate better controlled Currently on Cardizem drip Transitioned 2 to Eliquis Add Symbicort and albuterol Procalcitonin negative Antibiotics discontinued Titrate down/off the FiO2 as tolerated We will continue to follow I have personally seen and examined the patient, performed the documentation and the assessment and plan as written. Number of minutes spent on the visit: 10 Dictation was produced using [employer] dictation software. Please excuse any grammatical, word or spelling errors.
[2024-10-25 17:23] LABS: Glucose,Whole Blood 174 mg/dL (70-110)
--- NOTE | 2024-10-25 20:50 | P.PN ---
Subjective Progress Note Date: 10/25/24 HISTORY OF PRESENTING ILLNESS: 69-year-old female with past medical history of hypertension, dyslipidemia, asthma. She was transferred from [facility] because of new onset atrial fibrillation with RVR. She initially presented because of substernal chest pressure and increased worsening shortness of breath with minimal exertion for last 2 days. She denies any lightheadedness dizziness or syncopal episode. She also has history of breast cancer, mediastinal lymphadenopathy, COPD, morbid obesity, type 2 diabetes, hypertension dyslipidemia. On admission she was found to be in A-fib with RVR and was started on Cardizem drip. Her troponins x 2 were negative, HbA1c was 6.2 BUN 15, creatinine 0.8 Chest x-ray shows mild pulm congestion with signs of possible pneumonia in the right lower lung. BP 130/70, heart rate 95 bpm. EKG shows atrial fibrillation with mild IVCD, heart rate 89 bpm. Progress note Patient continues to be in atrial fibrillation however having rates are controlled, blood pressure is controlled No new cardiovascular symptoms. PHYSICAL EXAMINATION: Neck: Brisk carotid upstroke, no jugular venous distention. Lungs: Mild crackles or rhonchi audible Heart: Irregularly irregular pulse, S1-S2 audible, no significant murmurs Abdomen: Soft nontender, positive bowel sounds. Extremities: No edema, intact distal pulses. Neuro: Alert, oritented, no focal deficits. Detailed neuro exam was not performed. ASSESSMENT: # Atrial fibrillation with RVR, newly diagnosed on current admission # Complicated pneumonia # Breast cancer diagnosed in 2020 with right mastectomy # Mediastinal lymphadenopathy # Chronic comorbidities: COPD, type 2 diabetes, hypertension, dyslipidemia Cardiac testing TSH is normal, HbA1c 6.1, LDL 46, NT-proBNP 2490 PLAN: Obtain echocardiogram Continue metoprolol 50 mg daily, Eliquis 5 mg twice daily Continue to monitor telemetry electrolytes Infectious workup Recommend rhythm control evaluation on outpatient basis with possible cardioversion if needed. If echo shows cardiomyopathy, consider adding antiarrhythmics Objective - Vital Signs Vital signs: Vital Signs Temp 98.2 F 10/25/24 06:04 Pulse 96 10/25/24 20:42 Resp 18 10/25/24 20:42 BP 132/69 10/25/24 20:42 Pulse Ox 100 10/25/24 20:42 FiO2 Intake & Output 10/25/24 10/25/24 10/26/24 06:59 18:59 06:59 Intake Total 48.917 Output Total 1000 Balance -951.083 Intake: Intake, IV Titration 48.917 Amount Diltiazem 125 mg In 48.917 Sodium Chloride 0.9% 100 ml @ 5 MG/HR 5 mls/hr IV .Q24H [facility] Rx#:[id number] Output: Urine 1000 - Labs CBC & Chem 7: 10/25/24 09:08 10/25/24 09:08 Labs: Abnormal Lab Results - Last 24 Hours (Table) 10/24/24 10/25/24 10/25/24 Range/Units 20:10 09:08 09:08 WBC (3.8-10.6) k/uL RBC (3.80-5.40) m/uL Hgb (11.4-16.0) gm/dL Hct (34.0-46.0) % MCHC (31.0-37.0) g/dL RDW (11.5-15.5) % Plt Count (150-450) k/uL Sodium 136 L (137-145) mmol/L Glucose 108 H (74-99) mg/dL POC Glucose (mg/dL) 179 H (70-110) mg/dL Hemoglobin A1c 6.1 H (<=6.0) % AST 38 H (14-36) U/L Alkaline Phosphatase 640 H (38-126) U/L Albumin 3.3 L (3.5-5.0) g/dL 10/25/24 10/25/24 10/25/24 Range/Units 09:08 09:50 12:45 WBC 3.7 L (3.8-10.6) k/uL RBC 3.23 L (3.80-5.40) m/uL Hgb 9.0 L (11.4-16.0) gm/dL Hct 30.0 L (34.0-46.0) % MCHC 30.1 L (31.0-37.0) g/dL RDW 17.9 H (11.5-15.5) % Plt Count 122 L D (150-450) k/uL Sodium (137-145) mmol/L Glucose (74-99) mg/dL POC Glucose (mg/dL) 114 H 194 H (70-110) mg/dL Hemoglobin A1c (<=6.0) % AST (14-36) U/L Alkaline Phosphatase (38-126) U/L Albumin (3.5-5.0) g/dL 10/25/24 Range/Units 17:22 WBC (3.8-10.6) k/uL RBC (3.80-5.40) m/uL Hgb (11.4-16.0) gm/dL Hct (34.0-46.0) % MCHC (31.0-37.0) g/dL RDW (11.5-15.5) % Plt Count (150-450) k/uL Sodium (137-145) mmol/L Glucose (74-99) mg/dL POC Glucose (mg/dL) 174 H (70-110) mg/dL Hemoglobin A1c (<=6.0) % AST (14-36) U/L Alkaline Phosphatase (38-126) U/L Albumin (3.5-5.0) g/dL
[2024-10-25] MEDS: SYMBICORT 160-4.5 MCG INHALER INHALATION SCH (21:11)
[2024-10-25] MEDS: ALBUTEROL NEBULIZED 2.5 MG/3 ML INHALATION SCH (21:11)
[2024-10-25 21:58] LABS: Glucose,Whole Blood 141 mg/dL (70-110)
[2024-10-26 05:58] LABS: Glucose,Whole Blood 123 mg/dL (70-110)
[2024-10-26] MEDS: METOPROLOL TARTRATE 50 MG TAB PO SCH (09:35)
[2024-10-26] MEDS ORDERED: ALBUTEROL NEBULIZED 2.5 MG/3 ML INHALATION PRN (10:45)
[2024-10-26 11:39] LABS: Glucose,Whole Blood 151 mg/dL (70-110)
--- NOTE | 2024-10-26 12:41 | P.PN ---
Subjective Progress Note Date: 10/26/24 HISTORY OF PRESENTING ILLNESS: 69-year-old female with past medical history of hypertension, dyslipidemia, asthma. She was transferred from [facility] because of new onset atrial fibrillation with RVR. She initially presented because of substernal chest pressure and increased worsening shortness of breath with minimal exertion for last 2 days. She denies any lightheadedness dizziness or syncopal episode. She also has history of breast cancer, mediastinal lymphadenopathy, COPD, morbid obesity, type 2 diabetes, hypertension dyslipidemia. On admission she was found to be in A-fib with RVR and was started on Cardizem drip. Her troponins x 2 were negative, HbA1c was 6.2 BUN 15, creatinine 0.8 Chest x-ray shows mild pulm congestion with signs of possible pneumonia in the right lower lung. BP 130/70, heart rate 95 bpm. EKG shows atrial fibrillation with mild IVCD, heart rate 89 bpm. Progress note Patient continues to be in atrial fibrillation however having rates are controlled, blood pressure is controlled No new cardiovascular symptoms. 10/26 Patient seen and examined. Patient does not feel that she is back to her baseline. She is hoping to go home tomorrow. Blood pressure readings remain elevated and some of her home medications have not been resumed. Blood pressure 154/77, heart rate 93, pulse ox 100% on 4 L nasal cannula. No repeat blood work today. Echocardiogram reveals EF 55 to 60%, tachycardic rhythm, RVSP 35 mmHg, moderate mitral regurgitation, mild TR, mild pulmonary hypertension with RVSP 35 mmHg. PHYSICAL EXAMINATION: Neck: Brisk carotid upstroke, no jugular venous distention. Lungs: Mild crackles or rhonchi audible Heart: Irregularly irregular pulse, S1-S2 audible, no significant murmurs Abdomen: Soft nontender, positive bowel sounds. Extremities: No edema, intact distal pulses. Neuro: Alert, oritented, no focal deficits. Detailed neuro exam was not performed. ASSESSMENT: # Atrial fibrillation with RVR, newly diagnosed on current admission # Complicated pneumonia # Breast cancer diagnosed in 2019 with right mastectomy # Mediastinal lymphadenopathy # Chronic comorbidities: COPD, type 2 diabetes, hypertension, dyslipidemia Cardiac testing TSH is normal, HbA1c 6.1, LDL 46, NT-proBNP 2490 PLAN: Continue metoprolol tartrate 50 mg increase frequency to 3 times daily, continue Eliquis 5 mg twice daily Add in lisinopril from home list at reduced strength of 10 mg daily continue to monitor telemetry electrolytes Infectious workup Wean off oxygen Recommend rhythm control evaluation on outpatient basis with possible cardioversion if needed. Nurse practitioner note has been reviewed, I agree with documented findings and plan of care. Patient was seen and examined. Objective - Vital Signs Vital signs: Vital Signs Temp 97.7 F 10/26/24 05:21 Pulse 91 10/26/24 05:21 Resp 18 10/26/24 05:21 BP 151/86 10/26/24 05:21 Pulse Ox 100 10/26/24 05:21 FiO2 Intake & Output 10/25/24 10/26/24 10/26/24 18:59 06:59 18:59 Intake Total 48.917 Output Total 1000 900 Balance -951.083 -900 Weight 55.5 kg Intake: Intake, IV Titration 48.917 Amount Diltiazem 125 mg In 48.917 Sodium Chloride 0.9% 100 ml @ 5 MG/HR 5 mls/hr IV .Q24H [facility] Rx#:[id number] Output: Urine 1000 900 Other: Voiding Method Indwelling Catheter - Labs CBC & Chem 7: 10/25/24 09:08 10/25/24 09:08 Labs: Abnormal Lab Results - Last 24 Hours (Table) 10/25/24 10/25/24 10/25/24 Range/Units 09:08 09:08 09:08 WBC 3.7 L (3.8-10.6) k/uL RBC 3.23 L (3.80-5.40) m/uL Hgb 9.0 L (11.4-16.0) gm/dL Hct 30.0 L (34.0-46.0) % MCHC 30.1 L (31.0-37.0) g/dL RDW 17.9 H (11.5-15.5) % Plt Count 122 L D (150-450) k/uL Sodium 136 L (137-145) mmol/L Glucose 108 H (74-99) mg/dL POC Glucose (mg/dL) (70-110) mg/dL Hemoglobin A1c 6.1 H (<=6.0) % AST 38 H (14-36) U/L Alkaline Phosphatase 640 H (38-126) U/L Albumin 3.3 L (3.5-5.0) g/dL 10/25/24 10/25/24 10/25/24 Range/Units 09:50 12:45 17:22 WBC (3.8-10.6) k/uL RBC (3.80-5.40) m/uL Hgb (11.4-16.0) gm/dL Hct (34.0-46.0) % MCHC (31.0-37.0) g/dL RDW (11.5-15.5) % Plt Count (150-450) k/uL Sodium (137-145) mmol/L Glucose (74-99) mg/dL POC Glucose (mg/dL) 114 H 194 H 174 H (70-110) mg/dL Hemoglobin A1c (<=6.0) % AST (14-36) U/L Alkaline Phosphatase (38-126) U/L Albumin (3.5-5.0) g/dL 10/25/24 10/26/24 Range/Units 21:56 05:56 WBC (3.8-10.6) k/uL RBC (3.80-5.40) m/uL Hgb (11.4-16.0) gm/dL Hct (34.0-46.0) % MCHC (31.0-37.0) g/dL RDW (11.5-15.5) % Plt Count (150-450) k/uL Sodium (137-145) mmol/L Glucose (74-99) mg/dL POC Glucose (mg/dL) 141 H 123 H (70-110) mg/dL Hemoglobin A1c (<=6.0) % AST (14-36) U/L Alkaline Phosphatase (38-126) U/L Albumin (3.5-5.0) g/dL
--- NOTE | 2024-10-26 13:11 | P.PN ---
Subjective Progress Note Date: 10/26/24 patient 69-year-old lady with past medical history significant for hypertension, hyperlipidemia, asthma who presented to the ER as a transfer from [facility] for new onset A-fib with RVR. Patient initially presented to [facility] for shortness of breath and chest pressure for last 2 days. Patient stated that she felt as if someone was sitting on her chest, this feeling was intermittent, nonradiating, no aggravating relieving factor associate with this chest pain. Patient also complaining of shortness of breath at time. Patient denies any palpitations. There was no complaint of orthopnea or PND there was no complaint of fever or chills. Patient any nausea or vomiting. Patient was worked up in the ER, was found to be in A-fib with RVR and started on Cardizem drip. Patient also has CT chest done that showed possible CHF with pneumonia. Patient was transferred to [facility] for cardiology evaluation 10/25. Patient seen and examined.Blood work done this morning showed WBC 3.7, hemoglobin 9, platelet count 122, sodium 136 potassium 4.1, BUN 17, creatinine 0.88. 2D echo done showed LVEF of 55 to 60%, no regional wall motion of normality, normal RV size and function, mild pulmonary hypertension with RVSP of 35. Denies any chest pain. Denies any shortness of breath at rest. 10/26. Patient seen and examined. Vital signs stable, temperature 97.7, heart rate 91, respiration 18, blood pressure 151/86, currently on 2 L of oxygen. States she feels much better. Denies any shortness of breath at rest. Denies any chest pain. REVIEW OF SYSTEMS: CONSTITUTIONAL: No fever, no malaise,. CARDIOVASCULAR: No chest pain, no palpitations, no syncope. PULMONARY: Mentioned above GASTROINTESTINAL: No diarrhea, no nausea, no vomiting, no abdominal pain. NEUROLOGICAL: No headaches, no weakness, PHYSICAL EXAMINATION: GENERAL: The patient is alert and oriented x3, not in any acute distress. Well developed, well nourished. HEENT: Pupils are round and equally reacting to light. EOMI. No scleral icterus. No conjunctival pallor. Normocephalic, atraumatic. No pharyngeal erythema. No thyromegaly. CARDIOVASCULAR: S1 and S2 present. No murmurs, rubs, or gallops. Irregular in rate and rhythm PULMONARY: Chest is clear to auscultation, no wheezing or crackles. ABDOMEN: Soft, nontender, nondistended, normoactive bowel sounds. No palpable organomegaly. MUSCULOSKELETAL: No joint swelling or deformity. EXTREMITIES: No cyanosis, clubbing, or pedal edema. NEUROLOGICAL: Gross neurological examination did not reveal any focal deficits. SKIN: No rashes. Assessment and plan A-fib with RVR Acute hypoxic respiratory failure Bacterial pneumonia ruled out Hypothyroidism Hypertension Mild intermittent chronic bronchial asthma Monitor vital signs Monitor CBC Monitor CMP Continue telemetry monitoring Serial troponin 2D echo done showed LVEF of 55 to 60%, no regional wall motion of normality, normal RV size and function, mild pulmonary hypertension with RVSP of 35 Continue Eliquis, metoprolol frequency increased to 50 mg 3 times daily Strict I's and O's, daily weights, continue IV Lasix 20 mg every 12 Cardiology following Pulmonology following Labs and medication were reviewed.. Continue same treatment. Continue with symptomatic treatment. Resume home medication. Monitor labs and vitals. DVT and GI prophylaxis. Further recommendations as per clinical course of the patient Dictation was produced using [employer] dictation software. please excuse any grammatical, word or spelling errors. Objective - Vital Signs Vital signs: Vital Signs Temp 97.7 F 10/26/24 05:21 Pulse 86 10/26/24 08:52 Resp 18 10/26/24 05:21 BP 151/86 10/26/24 05:21 Pulse Ox 98 10/26/24 08:43 FiO2 Intake & Output 10/25/24 10/26/24 10/26/24 18:59 06:59 18:59 Intake Total 48.917 240 Output Total 1000 900 Balance -951.083 -900 240 Weight 55.5 kg Intake: Intake, IV Titration 48.917 Amount Diltiazem 125 mg In 48.917 Sodium Chloride 0.9% 100 ml @ 5 MG/HR 5 mls/hr IV .Q24H [facility] Rx#:[id number] Oral 240 Output: Urine 1000 900 Other: Voiding Method Indwelling Catheter # Bowel Movements 1 - Labs CBC & Chem 7: 10/25/24 09:08 10/25/24 09:08 Labs: Abnormal Lab Results - Last 24 Hours (Table) 10/25/24 10/25/2425 Range/Units 09:08 12:45 17:22 POC Glucose (mg/dL) 194 H 174 H (70-110) mg/dL Hemoglobin A1c 6.1 H (<=6.0) % 10/25/24 10/26/24 Range/Units 21:56 05:56 POC Glucose (mg/dL) 141 H 123 H (70-110) mg/dL Hemoglobin A1c (<=6.0) %
--- NOTE | 2024-10-26 15:21 | P.PN ---
Subjective Progress Note Date: 10/26/24 On today's evaluation of 10/26/2024, the patient is being seen for a follow-up. The patient is currently on 2 L of oxygen by nasal cannula. She feels less short of breath compared to yesterday. She remains atrial fibrillation. Rate is under better control and the patient was given metoprolol 50 mg p.o. 3 times daily and she is on anticoagulation with Eliquis. She remains on IV Lasix 20 mg every 12 hours. Rest of the medications remain unchanged. She remains on lisinopril 10 mg p.o. daily. She remains on Lipitor. In terms of oxygenation, the patient is on 2 L of O2 nasal cannula. She remains in negative fluid balance of 1.8 L over the past 24 hours. No new labs are available from today. Renal function from yesterday was within normal limits. The white cell count is at 3.7 with a hemoglobin of 9.0. Chest x-ray from the time of admission showed CHF with increased pulm vascular markings and pulmonary edema and small bilateral pleural effusions. Echocardiogram from 10/24/2024 showed a preserved LV function with an ejection fraction of 55 to 60%. There is normal RV size and function and right ventricular systolic pressure was estimated to be 35. She has moderate degree of mitral regurgitation. Objective - Vital Signs Vital signs: Vital Signs Temp 97.9 F 10/26/24 08:10 Pulse 90 10/26/24 12:09 Resp 18 10/26/24 08:10 BP 154/77 10/26/24 08:10 Pulse Ox 98 10/26/24 08:43 FiO2 Intake & Output 10/25/24 10/26/24 10/26/24 18:59 06:59 18:59 Intake Total 48.917 240 Output Total 1000 900 Balance -951.083 -900 240 Weight 55.5 kg Intake: Intake, IV Titration 48.917 Amount Diltiazem 125 mg In 48.917 Sodium Chloride 0.9% 100 ml @ 5 MG/HR 5 mls/hr IV .Q24H [facility] Rx#:[id number] Oral 240 Output: Urine 1000 900 Other: Voiding Method Indwelling Catheter Indwelling Catheter # Bowel Movements 1 - Exam GENERAL EXAM: Alert, 69-year-old female, on 2 L nasal cannula, comfortable in no apparent distress. HEAD: Normocephalic. EYES: Normal reaction of pupils, equal size. NOSE: Clear with pink turbinates. THROAT: No erythema or exudates. NECK: No masses, no JVD. CHEST: No chest wall deformity. LUNGS: Equal air entry with no crackles, wheeze, rhonchi or dullness. CVS: S1 and S2 normal with no audible murmur, irregular rhythm. ABDOMEN: No hepatosplenomegaly, normal bowel sounds, no guarding or rigidity. SPINE: No scoliosis or deformity SKIN: No rashes CENTRAL NERVOUS SYSTEM: No focal deficits, tone is normal in all 4 extremities. EXTREMITIES: There is no peripheral edema. No clubbing, no cyanosis. Peripheral pulses are intact. 2 - Labs CBC & Chem 7: 10/25/24 09:08 10/25/24 09:08 Labs: Abnormal Lab Results - Last 24 Hours (Table) 10/25/24 10/25/24 10/25/24 Range/Units 09:08 12:45 17:22 POC Glucose (mg/dL) 194 H 174 H (70-110) mg/dL Hemoglobin A1c 6.1 H (<=6.0) % 10/25/24 10/26/24 10/26/24 Range/Units 21:56 05:56 11:37 POC Glucose (mg/dL) 141 H 123 H 151 H (70-110) mg/dL Hemoglobin A1c (<=6.0) % Assessment and Plan Plan: Acute hypoxic respiratory failure, currently on 2 L of oxygen nasal cannula CHF with chronic heart failure and secondary edema, improving Chest pressure and shortness of breath secondary to atrial fibrillation with a rapid ventricular response, recovered Atrial fibrillation with a rapid ventricular response, still in atrial fibrillation with a controlled rate Mild intermittent chronic bronchial asthma Diabetes mellitus, type II Hypertension Hyperlipidemia Chronic back pain Breast cancer status post right mastectomy Former smoker Gastroesophageal reflux disease Plan: Wean down FiO2 as tolerated currently on 2 L of O2 nasal cannula Echocardiogram reviewed, preserved LV function with moderate MR Heart rate better controlled and the patient is on metoprolol 50 mg p.o. 3 times daily and off the Cardizem drip Anticoagulation with Eliquis Continue Symbicort and albuterol Procalcitonin negative Antibiotics discontinued Titrate down/off the FiO2 as tolerated We will continue to follow Time with Patient: Greater than 30
[2024-10-26 16:43] LABS: Glucose,Whole Blood 175 mg/dL (70-110)
[2024-10-26] MEDS: lisinopriL 10 MG TAB PO SCH (16:45)
[2024-10-26] MEDS: PANTOPRAZOLE 40 MG TABLET PO SCH (16:49)
[2024-10-26] MEDS: MORPHINE SULFATE IR 15 MG TABLET PO PRN (17:34)
[2024-10-26 20:04] LABS: Glucose,Whole Blood 174 mg/dL (70-110)
[2024-10-26] MEDS: MORPHINE SULFATE ER 30 MG TABLET PO SCH (20:16)
[2024-10-26] MEDS: BACLOFEN 10 MG TAB PO SCH (20:16)
[2024-10-27 06:05] LABS: Glucose,Whole Blood 180 mg/dL (70-110)
[2024-10-27 06:47] LABS: Anisocytosis Slight; Basophils % (A) 1 %; Eosinophils # (A) 0.1 k/uL (0-0.7); Eosinophils % (A) 2 %; HCT 28.1 % (34.0-46.0); HGB 8.5 gm/dL (11.4-16.0); Hypochromasia Marked; Lymphocytes # (A) 0.9 k/uL (1.0-4.8); Lymphocytes % (A) 26 %; MCH 27.2 pg (25.0-35.0); MCHC 30.1 g/dL (31.0-37.0); MCV 90.5 fL (80.0-100.0); Mean Platelet Volume 8.3; Monocytes # (A) 0.3 k/uL (0-1.0); Monocytes % (A) 8 %; Neutrophils # (A) 2.2 k/uL (1.3-7.7); Neutrophils % (A) 63 %; Platelet Count 109 k/uL (150-450); RBC 3.11 m/uL (3.80-5.40); RDW 17.9 % (11.5-15.5); WBC 3.5 k/uL (3.8-10.6)
[2024-10-27 07:09] LABS: ALT 18 U/L (4-34); AST 32 U/L (14-36); African American GFR (CKD) 67 (>60 ml/min/1.73 sqM); Albumin 3.2 g/dL (3.5-5.0); Alkaline Phosphatase 597 U/L (38-126); Anion Gap 5 mmol/L; Blood Urea Nitrogen 25 mg/dL (7-17); Calcium 8.5 mg/dL (8.4-10.2); Carbon Dioxide 33 mmol/L (22-30); Chloride 94 mmol/L (98-107); Glucose 148 mg/dL (74-99); Non-African American GFR(CKD) 58 (>60 ml/min/1.73 sqM); Potassium 3.9 mmol/L (3.5-5.1); Sodium 132 mmol/L (137-145); Total Bilirubin 0.5 mg/dL (0.2-1.3); Total Protein 6.3 g/dL (6.3-8.2)
[2024-10-27] MEDS: DOCUSATE 100 MG CAP PO SCH (08:39)
[2024-10-27] MEDS: ATORVASTATIN 10 MG TAB PO SCH (08:40)
[2024-10-27] MEDS: ANASTROZOLE 1 MG TAB PO SCH (08:40)
[2024-10-27] MEDS ORDERED: lisinopriL 20 MG TAB PO SCH (09:00)
[2024-10-27 09:36] LABS: Glucose,Whole Blood 154 mg/dL (70-110)
[2024-10-27 11:29] LABS: Glucose,Whole Blood 226 mg/dL (70-110)
--- NOTE | 2024-10-27 12:40 | P.PN ---
Subjective Progress Note Date: 10/27/24 HISTORY OF PRESENTING ILLNESS: 69-year-old female with past medical history of hypertension, dyslipidemia, asthma. She was transferred from [facility] because of new onset atrial fibrillation with RVR. She initially presented because of substernal chest pressure and increased worsening shortness of breath with minimal exertion for last 2 days. She denies any lightheadedness dizziness or syncopal episode. She also has history of breast cancer, mediastinal lymphadenopathy, COPD, morbid obesity, type 2 diabetes, hypertension dyslipidemia. On admission she was found to be in A-fib with RVR and was started on Cardizem drip. Her troponins x 2 were negative, HbA1c was 6.2 BUN 15, creatinine 0.8 Chest x-ray shows mild pulm congestion with signs of possible pneumonia in the right lower lung. BP 130/70, heart rate 95 bpm. EKG shows atrial fibrillation with mild IVCD, heart rate 89 bpm. Progress note Patient continues to be in atrial fibrillation however having rates are controlled, blood pressure is controlled No new cardiovascular symptoms. 10/26 Patient seen and examined. Patient does not feel that she is back to her baseline. She is hoping to go home tomorrow. Blood pressure readings remain elevated and some of her home medications have not been resumed. Blood pressure 154/77, heart rate 93, pulse ox 100% on 4 L nasal cannula. No repeat blood work today. Echocardiogram reveals EF 55 to 60%, tachycardic rhythm, RVSP 35 mmHg, moderate mitral regurgitation, mild TR, mild pulmonary hypertension with RVSP 35 mmHg. 10/27 Yesterday we added and lisinopril at a lower dose at 10 mg which is one of her home medications. Blood pressure readings remain elevated. We also asked for patient be weaned off oxygen. She is not requiring oxygen at this time. Blood pressure 150/74, heart rate 100, pulse ox 96% on room air. Repeat blood work reveals hemoglobin 8.5, potassium 3.9, BUN 25 creatinine 1. PHYSICAL EXAMINATION: Neck: Brisk carotid upstroke, no jugular venous distention. Lungs: Mild crackles or rhonchi audible Heart: Irregularly irregular pulse, S1-S2 audible, systolic ejection murmur. Abdomen: Soft nontender, positive bowel sounds. Extremities: No edema, intact distal pulses. Neuro: Alert, oritented, no focal deficits. Detailed neuro exam was not performed. ASSESSMENT: # New onset paroxysmal atrial fibrillation with RVR, currently rate controlled # Complicated pneumonia # Breast cancer diagnosed in 2020 with right mastectomy # Mediastinal lymphadenopathy # Chronic comorbidities: COPD, type 2 diabetes, hypertension, dyslipidemia Cardiac testing TSH is normal, HbA1c 6.1, LDL 46, NT-proBNP 2490 PLAN: Continue metoprolol tartrate 50 mg increase frequency to 3 times daily, continue Eliquis 5 mg twice daily Increase lisinopril to 20 mg daily No further cardiac workup at this time. Patient may follow-up in the office with Dr. Mcfadden in 1 week. Patient is cleared for discharge from cardiology perspective. Nurse practitioner note has been reviewed, I agree with documented findings and plan of care. Patient was seen and examined. Objective - Vital Signs Vital signs: Vital Signs Temp 98.1 F 10/27/24 04:18 Pulse 98 10/27/24 04:18 Resp 17 10/27/24 04:18 BP 150/74 10/27/24 04:18 Pulse Ox 96 10/27/24 04:18 FiO2 Intake & Output 10/26/24 10/27/24 10/27/24 18:59 06:59 18:59 Intake Total 480 240 Output Total 1300 Balance -820 240 Weight 56 kg Intake: Oral 480 240 Output: Urine 1300 Uretheral (Berrios) 700 Other: Voiding Method Indwelling Catheter # Voids 1 # Bowel Movements 1 - Labs CBC & Chem 7: 10/27/24 06:01 10/27/24 06:01 Labs: Abnormal Lab Results - Last 24 Hours (Table) 10/26/24 10/26/24 10/26/24 Range/Units 11:37 16:42 19:51 WBC (3.8-10.6) k/uL RBC (3.80-5.40) m/uL Hgb (11.4-16.0) gm/dL Hct (34.0-46.0) % MCHC (31.0-37.0) g/dL RDW (11.5-15.5) % Plt Count (150-450) k/uL Lymphocytes # (1.0-4.8) k/uL Sodium (137-145) mmol/L Chloride (98-107) mmol/L Carbon Dioxide (22-30) mmol/L BUN (7-17) mg/dL Glucose (74-99) mg/dL POC Glucose (mg/dL) 151 H 175 H 174 H (70-110) mg/dL Alkaline Phosphatase (38-126) U/L Albumin (3.5-5.0) g/dL 10/27/24 10/27/24 10/27/24 Range/Units 05:51 06:01 06:01 WBC 3.5 L (3.8-10.6) k/uL RBC 3.11 L (3.80-5.40) m/uL Hgb 8.5 L (11.4-16.0) gm/dL Hct 28.1 L (34.0-46.0) % MCHC 30.1 L (31.0-37.0) g/dL RDW 17.9 H (11.5-15.5) % Plt Count 109 L (150-450) k/uL Lymphocytes # 0.9 L (1.0-4.8) k/uL Sodium 132 L (137-145) mmol/L Chloride 94 L (98-107) mmol/L Carbon Dioxide 33 H (22-30) mmol/L BUN 25 H (7-17) mg/dL Glucose 148 H (74-99) mg/dL POC Glucose (mg/dL) 180 H (70-110) mg/dL Alkaline Phosphatase 597 H (38-126) U/L Albumin 3.2 L (3.5-5.0) g/dL
[2024-10-27] MEDS: lisinopriL 10 MG TAB PO ONE (13:07)
--- NOTE | 2024-10-27 13:10 | P.PN ---
Subjective Progress Note Date: 10/27/24 patient 69-year-old lady with past medical history significant for hypertension, hyperlipidemia, asthma who presented to the ER as a transfer from [facility] for new onset A-fib with RVR. Patient initially presented to [facility] for shortness of breath and chest pressure for last 2 days. Patient stated that she felt as if someone was sitting on her chest, this feeling was intermittent, nonradiating, no aggravating relieving factor associate with this chest pain. Patient also complaining of shortness of breath at time. Patient denies any palpitations. There was no complaint of orthopnea or PND there was no complaint of fever or chills. Patient any nausea or vomiting. Patient was worked up in the ER, was found to be in A-fib with RVR and started on Cardizem drip. Patient also has CT chest done that showed possible CHF with pneumonia. Patient was transferred to [facility] for cardiology evaluation 10/25. Patient seen and examined.Blood work done this morning showed WBC 3.7, hemoglobin 9, platelet count 122, sodium 136 potassium 4.1, BUN 17, creatinine 0.88. 2D echo done showed LVEF of 55 to 60%, no regional wall motion of normality, normal RV size and function, mild pulmonary hypertension with RVSP of 35. Denies any chest pain. Denies any shortness of breath at rest. 10/26. Patient seen and examined. Vital signs stable, temperature 97.7, heart rate 91, respiration 18, blood pressure 151/86, currently on 2 L of oxygen. States she feels much better. Denies any shortness of breath at rest. Denies any chest pain. 10/27. Patient seen and examined. Currently weaned off the oxygen. Denies any shortness of breath at rest. Cardiology adjusted patient cardiac medications. Possible discharge in next 24 hours REVIEW OF SYSTEMS: CONSTITUTIONAL: No fever, no malaise,. CARDIOVASCULAR: No chest pain, no palpitations, no syncope. PULMONARY: Mentioned above GASTROINTESTINAL: No diarrhea, no nausea, no vomiting, no abdominal pain. NEUROLOGICAL: No headaches, no weakness, PHYSICAL EXAMINATION: GENERAL: The patient is alert and oriented x3, not in any acute distress. Well developed, well nourished. HEENT: Pupils are round and equally reacting to light. EOMI. No scleral icterus. No conjunctival pallor. Normocephalic, atraumatic. No pharyngeal erythema. No thyromegaly. CARDIOVASCULAR: S1 and S2 present. No murmurs, rubs, or gallops. Irregular in rate and rhythm PULMONARY: Chest is clear to auscultation, no wheezing or crackles. ABDOMEN: Soft, nontender, nondistended, normoactive bowel sounds. No palpable organomegaly. MUSCULOSKELETAL: No joint swelling or deformity. EXTREMITIES: No cyanosis, clubbing, or pedal edema. NEUROLOGICAL: Gross neurological examination did not reveal any focal deficits. SKIN: No rashes. Assessment and plan A-fib with RVR Acute hypoxic respiratory failure Bacterial pneumonia ruled out Hypothyroidism Hypertension Mild intermittent chronic bronchial asthma Monitor vital signs Monitor CBC Monitor CMP Continue telemetry monitoring Serial troponin 2D echo done showed LVEF of 55 to 60%, no regional wall motion of normality, normal RV size and function, mild pulmonary hypertension with RVSP of 35 Continue Eliquis, metoprolol 50 mg 3 times daily Strict I's and O's, daily weights, continue IV Lasix 20 mg every 12 Cardiology following Pulmonology following Labs and medication were reviewed.. Continue same treatment. Continue with symptomatic treatment. Resume home medication. Monitor labs and vitals. DVT and GI prophylaxis. Further recommendations as per clinical course of the patient Dictation was produced using [employer] dictation software. please excuse any grammatical, word or spelling errors. Objective - Vital Signs Vital signs: Vital Signs Temp 98.1 F 10/27/24 04:18 Pulse 95 10/27/24 09:34 Resp 18 10/27/24 09:34 BP 150/74 10/27/24 04:18 Pulse Ox 95 10/27/24 09:19 FiO2 Intake & Output 10/26/24 10/27/24 10/27/24 18:59 06:59 18:59 Intake Total 480 240 Output Total 1300 Balance -820 240 Weight 56 kg Intake: Oral 480 240 Output: Urine 1300 Uretheral (Berrios) 700 Other: Voiding Method Indwelling Catheter # Voids 1 # Bowel Movements 1 - Labs CBC & Chem 7: 10/27/24 06:01 10/27/24 06:01 Labs: Abnormal Lab Results - Last 24 Hours (Table) 10/24/24 10/26/24 10/26/24 Range/Units 12:34 11:37 16:42 WBC (3.8-10.6) k/uL RBC (3.80-5.40) m/uL Hgb (11.4-16.0) gm/dL Hct (34.0-46.0) % MCHC (31.0-37.0) g/dL RDW (11.5-15.5) % Plt Count (150-450) k/uL Lymphocytes # (1.0-4.8) k/uL Sodium (137-145) mmol/L Chloride (98-107) mmol/L Carbon Dioxide (22-30) mmol/L BUN (7-17) mg/dL Glucose (74-99) mg/dL POC Glucose (mg/dL) 154 H 151 H 175 H (70-110) mg/dL Alkaline Phosphatase (38-126) U/L Albumin (3.5-5.0) g/dL 10/26/24 10/27/24 10/27/24 Range/Units 19:51 05:51 06:01 WBC 3.5 L (3.8-10.6) k/uL RBC 3.11 L (3.80-5.40) m/uL Hgb 8.5 L (11.4-16.0) gm/dL Hct 28.1 L (34.0-46.0) % MCHC 30.1 L (31.0-37.0) g/dL RDW 17.9 H (11.5-15.5) % Plt Count 109 L (150-450) k/uL Lymphocytes # 0.9 L (1.0-4.8) k/uL Sodium (137-145) mmol/L Chloride (98-107) mmol/L Carbon Dioxide (22-30) mmol/L BUN (7-17) mg/dL Glucose (74-99) mg/dL POC Glucose (mg/dL) 174 H 180 H (70-110) mg/dL Alkaline Phosphatase (38-126) U/L Albumin (3.5-5.0) g/dL 10/27/24 Range/Units 06:01 WBC (3.8-10.6) k/uL RBC (3.80-5.40) m/uL Hgb (11.4-16.0) gm/dL Hct (34.0-46.0) % MCHC (31.0-37.0) g/dL RDW (11.5-15.5) % Plt Count (150-450) k/uL Lymphocytes # (1.0-4.8) k/uL Sodium 132 L (137-145) mmol/L Chloride 94 L (98-107) mmol/L Carbon Dioxide 33 H (22-30) mmol/L BUN 25 H (7-17) mg/dL Glucose 148 H (74-99) mg/dL POC Glucose (mg/dL) (70-110) mg/dL Alkaline Phosphatase 597 H (38-126) U/L Albumin 3.2 L (3.5-5.0) g/dL
--- NOTE | 2024-10-27 14:11 | CDI ---
Documentation Clarification Form Date: 10/27/2024 01:34:15 PM From: Jessica Samayoa RN, CCDS Phone: [phone] Admit Date: 10/24/2024 03:42:00 AM Patient Name: Steffanie Valentino Visit Number: [id number] Discharge Date: ATTENTION: The Clinical Documentation Specialists (CDI) and [facility] Coding Staff appreciate your assistance in clarifying documentation. Please respond to the clarification below the line at the bottom and electronically sign. The CDI & [facility] Coding staff will review the response and follow-up if needed. Please note: Queries are made part of the Legal Health Record. If you have any questions, please contact the author of this message via ITS. Doctor. Barrett Jean Your patient has in your H/P Ct chest don that showed possible CHF. Additional information regarding the [type, acuity] of CHF is requested. History/Risk Factors: Asthma, Cancer, COPD, Diabetes Mellitus, Hyperlipidemia, Hypertension Clinical Indicators: 69-year-old female present as transfer for shortness of breath. 10/24 CXR: CXR: There is marked pulmonary vascular congestion and mild pulmonary edema There are small bilateral pleural effusions. There is no pneumothorax. 10/24 VS: 146/85 121 20 97.7 98% BNP: 2490 Echocardiogram Results: EF 55 to 60%, tachycardic rhythm, RVSP 35 mmHg, moderate mitral regurgitation, mild TR, mild pulmonary hypertension with RVSP 35 mmHg. 10/24 ED Clinical impression: New onset a-fib, Pneumonia, CHF (congestive heart failure) Treatment: Juice Mixer /Telemetry Lasix 20 MG IV Q 12, Lipitor, Lioresal 20 MG PO BID, Lopressor 50MG PO TID Strict I's and O's, daily weights In your professional opinion, can you please clarify the [acuity and type] of CHF if known? [ x] Acute Diastolic Heart Failure (preserved EF) [ ] Chronic Diastolic Heart Failure (preserved EF) [ ] Acute on Chronic Diastolic Heart Failure (preserved EF) [ ] Other, please specify [ ] Unable to determine (Template Last Revised: September 2020) MTDD
--- NOTE | 2024-10-27 16:27 | P.PN ---
Subjective Progress Note Date: 10/27/24 On today's evaluation of 10/26/2024, the patient is being seen for a follow-up. The patient is currently on 2 L of oxygen by nasal cannula. She feels less short of breath compared to yesterday. She remains atrial fibrillation. Rate is under better control and the patient was given metoprolol 50 mg p.o. 3 times daily and she is on anticoagulation with Eliquis. She remains on IV Lasix 20 mg every 12 hours. Rest of the medications remain unchanged. She remains on lisinopril 10 mg p.o. daily. She remains on Lipitor. In terms of oxygenation, the patient is on 2 L of O2 nasal cannula. She remains in negative fluid balance of 1.8 L over the past 24 hours. No new labs are available from today. Renal function from yesterday was within normal limits. The white cell count is at 3.7 with a hemoglobin of 9.0. Chest x-ray from the time of admission showed CHF with increased pulm vascular markings and pulmonary edema and small bilateral pleural effusions. Echocardiogram from 10/24/2024 showed a preserved LV function with an ejection fraction of 55 to 60%. There is normal RV size and function and right ventricular systolic pressure was estimated to be 35. She has moderate degree of mitral regurgitation. On today's evaluation of 10/27/2024, the patient is doing well. Less short of breath. Resting comfortably in bed. She is currently on room air oxygen. Remains in atrial fibrillation with a controlled rate. She is currently on metoprolol 50 mg p.o. 3 times daily and the patient continues to be on Lasix 20 mg IV every 12 hours. Producing adequate amount of urine output. She remains on anticoagulation with Eliquis. She reports improvement in respiratory status. Fluid balance is -820 cc over the past 24 hours. The white cell count of 3.5, hemoglobin is at 8.5 and a platelet count of 109. BUN is 25 with a creatinine of 1 and sodium levels at 132 and a potassium level is 3.9. No other significant events overnight. She is doing well. Objective - Vital Signs Vital signs: Vital Signs Temp 97.9 F 10/27/24 08:00 Pulse 95 10/27/24 09:34 Resp 18 10/27/24 09:34 BP 115/78 10/27/24 08:00 Pulse Ox 95 10/27/24 09:19 FiO2 Intake & Output 10/26/24 10/27/24 10/27/24 18:59 06:59 18:59 Intake Total 480 360 Output Total 1300 Balance -820 360 Weight 56 kg Intake: Oral 480 360 Output: Urine 1300 Uretheral (Berrios) 700 Other: Voiding Method Indwelling Catheter # Voids 1 # Bowel Movements 1 - Exam GENERAL EXAM: Alert, 69-year-old female, on room air oxygen, comfortable in no apparent distress. HEAD: Normocephalic. EYES: Normal reaction of pupils, equal size. NOSE: Clear with pink turbinates. THROAT: No erythema or exudates. NECK: No masses, no JVD. CHEST: No chest wall deformity. LUNGS: Equal air entry with no crackles, wheeze, rhonchi or dullness. CVS: S1 and S2 normal with no audible murmur, irregular rhythm. ABDOMEN: No hepatosplenomegaly, normal bowel sounds, no guarding or rigidity. SPINE: No scoliosis or deformity SKIN: No rashes CENTRAL NERVOUS SYSTEM: No focal deficits, tone is normal in all 4 extremities. EXTREMITIES: There is no peripheral edema. No clubbing, no cyanosis. Peripheral pulses are intact. 2 - Labs CBC & Chem 7: 10/27/24 06:01 10/27/24 06:01 Labs: Abnormal Lab Results - Last 24 Hours (Table) 10/24/24 10/26/24 10/26/24 Range/Units 12:34 11:37 16:42 WBC (3.8-10.6) k/uL RBC (3.80-5.40) m/uL Hgb (11.4-16.0) gm/dL Hct (34.0-46.0) % MCHC (31.0-37.0) g/dL RDW (11.5-15.5) % Plt Count (150-450) k/uL Lymphocytes # (1.0-4.8) k/uL Sodium (137-145) mmol/L Chloride (98-107) mmol/L Carbon Dioxide (22-30) mmol/L BUN (7-17) mg/dL Glucose (74-99) mg/dL POC Glucose (mg/dL) 154 H 151 H 175 H (70-110) mg/dL Alkaline Phosphatase (38-126) U/L Albumin (3.5-5.0) g/dL 10/26/24 10/27/24 10/27/24 Range/Units 19:51 05:51 06:01 WBC 3.5 L (3.8-10.6) k/uL RBC 3.11 L (3.80-5.40) m/uL Hgb 8.5 L (11.4-16.0) gm/dL Hct 28.1 L (34.0-46.0) % MCHC 30.1 L (31.0-37.0) g/dL RDW 17.9 H (11.5-15.5) % Plt Count 109 L (150-450) k/uL Lymphocytes # 0.9 L (1.0-4.8) k/uL Sodium (137-145) mmol/L Chloride (98-107) mmol/L Carbon Dioxide (22-30) mmol/L BUN (7-17) mg/dL Glucose (74-99) mg/dL POC Glucose (mg/dL) 174 H 180 H (70-110) mg/dL Alkaline Phosphatase (38-126) U/L Albumin (3.5-5.0) g/dL 10/27/24 Range/Units 06:01 WBC (3.8-10.6) k/uL RBC (3.80-5.40) m/uL Hgb (11.4-16.0) gm/dL Hct (34.0-46.0) % MCHC (31.0-37.0) g/dL RDW (11.5-15.5) % Plt Count (150-450) k/uL Lymphocytes # (1.0-4.8) k/uL Sodium 132 L (137-145) mmol/L Chloride 94 L (98-107) mmol/L Carbon Dioxide 33 H (22-30) mmol/L BUN 25 H (7-17) mg/dL Glucose 148 H (74-99) mg/dL POC Glucose (mg/dL) (70-110) mg/dL Alkaline Phosphatase 597 H (38-126) U/L Albumin 3.2 L (3.5-5.0) g/dL Assessment and Plan Plan: Acute hypoxic respiratory failure, currently on room air oxygen CHF with chronic heart failure and secondary edema, improving, remains on IV Lasix. Echocardiogram showed a preserved LV function with moderate degree of mitral regurgitation Chest pressure and shortness of breath secondary to atrial fibrillation with a rapid ventricular response, recovered Atrial fibrillation with a rapid ventricular response, still in atrial fibrillation with a controlled rate, the patient is currently on metoprolol anticoagulation with Eliquis Mild intermittent chronic bronchial asthma Diabetes mellitus, type II Hypertension Hyperlipidemia Chronic back pain Breast cancer status post right mastectomy Former smoker Gastroesophageal reflux disease Plan: Patient is currently on room air oxygen Echocardiogram reviewed, preserved LV function with moderate MR Heart rate better controlled and the patient is on metoprolol 50 mg p.o. 3 times daily and off the Cardizem drip Anticoagulation with Eliquis Continue Symbicort and albuterol Continue IV Lasix for another 24 hours Procalcitonin negative Antibiotics discontinued We will continue to follow Time with Patient: Greater than 30
[2024-10-27 16:32] LABS: Glucose,Whole Blood 229 mg/dL (70-110)
[2024-10-27 20:08] LABS: Glucose,Whole Blood 195 mg/dL (70-110)
[2024-10-28] MEDS: ONDANSETRON 4 MG/2 ML VIAL IVP PRN (05:01)
[2024-10-28 06:24] LABS: Glucose,Whole Blood 181 mg/dL (70-110)
[2024-10-28] MEDS: lisinopriL 20 MG TAB PO SCH (08:32)
[2024-10-28] MEDS: FUROSEMIDE 20 MG TAB PO SCH (08:33)
[2024-10-28] MEDS: METOPROLOL TARTRATE 50 MG TAB PO SCH (08:33)
[2024-10-28 10:29] VITALS: TEMP 98.2
[2024-10-28 11:59] LABS: Glucose,Whole Blood 146 mg/dL (70-110)
--- NOTE | 2024-10-28 12:29 | P.DS ---
Providers Date of admission: 10/24/24 03:42 Expected date of discharge: 10/28/24 Attending physician: Darwin Orona MD Consults: 10/24/24 03:42 Consult Physician Urgent Consulting Provider: [facility] Consult Reason/Comments: new onset afib Do you want consulting provider notified?: Yes 10/24/24 03:48 Consult Physician Routine Consulting Provider: Dany Mulligan Consult Reason/Comments: CAP Do you want consulting provider notified?: Yes Primary care physician: [facility] Hospital Course: Discharge diagnoses; A-fib with RVR Acute hypoxic respiratory failure Acute exacerbation of heart failure with preserved EF Bacterial pneumonia ruled out Hypothyroidism Hypertension Mild intermittent chronic bronchial asthma Hospital course; patient 69-year-old lady with past medical history significant for hypertension, hyperlipidemia, asthma who presented to the ER as a transfer from [facility] for new onset A-fib with RVR. Patient initially presented to [facility] for shortness of breath and chest pressure for last 2 days. Patient stated that she felt as if someone was sitting on her chest, this feeling was intermittent, nonradiating, no aggravating relieving factor associate with this chest pain. Patient also complaining of shortness of breath at time. Patient denies any palpitations. There was no complaint of orthopnea or PND there was no complaint of fever or chills. Patient any nausea or vomiting. Patient was worked up in the ER, was found to be in A-fib with RVR and started on Cardizem drip. Patient also has CT chest done that showed possible CHF with pneumonia. Patient was transferred to [facility] for cardiology evaluation 10/25. Patient seen and examined.Blood work done this morning showed WBC 3.7, hemoglobin 9, platelet count 122, sodium 136 potassium 4.1, BUN 17, creatinine 0.88. 2D echo done showed LVEF of 55 to 60%, no regional wall motion of normality, normal RV size and function, mild pulmonary hypertension with RVSP of 35. Denies any chest pain. Denies any shortness of breath at rest. 10/26. Patient seen and examined. Vital signs stable, temperature 97.7, heart rate 91, respiration 18, blood pressure 151/86, currently on 2 L of oxygen. States she feels much better. Denies any shortness of breath at rest. Denies any chest pain. 10/27. Patient seen and examined. Currently weaned off the oxygen. Denies any shortness of breath at rest. Cardiology adjusted patient cardiac medications. Possible discharge in next 24 hours 10/28. Patient seen examined. Currently doing much better. Lasix has been switched to oral continue twice a day. Currently on Eliquis and Lopressor. Cardiology cleared the patient for discharge PHYSICAL EXAMINATION: GENERAL: The patient is alert and oriented x3, not in any acute distress. Well developed, well nourished. HEENT: Pupils are round and equally reacting to light. EOMI. No scleral icterus. No conjunctival pallor. Normocephalic, atraumatic. No pharyngeal erythema. No thyromegaly. CARDIOVASCULAR: S1 and S2 present. No murmurs, rubs, or gallops. PULMONARY: Chest is clear to auscultation, no wheezing or crackles. ABDOMEN: Soft, nontender, nondistended, normoactive bowel sounds. No palpable organomegaly. MUSCULOSKELETAL: No joint swelling or deformity. EXTREMITIES: No cyanosis, clubbing, or pedal edema. NEUROLOGICAL: Gross neurological examination did not reveal any focal deficits. SKIN: No rashes. Dictation was produced using IPX dictation software. please excuse any grammatical, word or spelling errors. Patient Condition at Discharge: Stable Plan - Discharge Summary Discharge Rx Participant: No New Discharge Prescriptions: New Apixaban [Eliquis] 5 mg PO BID 30 Days #60 tab Furosemide [Lasix] 20 mg PO BID@0900,1600 30 Days #60 tab Metoprolol Tartrate [Lopressor] 100 mg PO BID 30 Days #120 tab lisinopriL [Zestril] 20 mg PO DAILY 30 Days #30 tab Continue Butalb/Acetaminophen/Caffeine [Fioricet 50-325-40 mg Tablet] 1 tab PO BID PRN PRN Reason: Migraine Headache Atorvastatin [Lipitor] 10 mg PO DAILY Albuterol Sulfate [Albuterol Sulfate Hfa] 2 puff INHALATION RT-QID PRN PRN Reason: Shortness Of Breath Baclofen [Lioresal] 20 mg PO BID Pantoprazole [Protonix] 40 mg PO AC-BID #0 tab guaiFENesin-DM 100-10MG/5ML [Robitussin DM] 5 ml PO Q6HR PRN ml PRN Reason: Cough Benzonatate [Tessalon Perles] 100 mg PO TID PRN cap PRN Reason: Cough Albuterol Nebulized [Ventolin Nebulized] 2.5 mg INHALATION RT-QID Fluticasone Propion/Salmeterol [Fluticasone-Salmeterol 250-50] 1 puff INHALATION RT-BID Ondansetron Odt [Zofran ODT] 4 mg PO BID PRN PRN Reason: Nausea Insulin Lispro [humaLOG Kwikpen] See Protocol SQ ACHS Anastrozole [Arimidex] 1 mg PO DAILY tab Insulin Glargine,Hum.rec.anlog [Lantus Solostar Pen] 30 units SQ HS #0 Docusate [Colace] 100 mg PO DAILY Morphine Sulfate Ir [MSIR] 15 mg PO Q4-6H PRN PRN Reason: Breakthrough Pain Morphine Sulfate ER [Ms Contin] 30 mg PO BID Discontinued lisinopriL [Zestril] 40 mg PO DAILY amLODIPine [Norvasc] 10 mg PO DAILY Discharge Medication List Butalb/Acetaminophen/Caffeine [Fioricet 50-325-40 mg Tablet] 1 tab PO BID PRN 04/11/14 [History] Albuterol Sulfate [Albuterol Sulfate Hfa] 2 puff INHALATION RT-QID PRN 03/09/24 [History] Atorvastatin [Lipitor] 10 mg PO DAILY 03/09/24 [History] Baclofen [Lioresal] 20 mg PO BID 08/18/24 [History] Anastrozole [Arimidex] 1 mg PO DAILY tab 08/31/24 [Rx] Benzonatate [Tessalon Perles] 100 mg PO TID PRN cap 08/31/24 [Rx] Insulin Glargine,Hum.rec.anlog [Lantus Solostar Pen] 30 units SQ HS #0 08/31/24 [Rx] Pantoprazole [Protonix] 40 mg PO AC-BID #0 tab 08/31/24 [Rx] guaiFENesin-DM 100-10MG/5ML [Robitussin DM] 5 ml PO Q6HR PRN ml 08/31/24 [Rx] Albuterol Nebulized [Ventolin Nebulized] 2.5 mg INHALATION RT-QID 10/24/24 [History] Docusate [Colace] 100 mg PO DAILY 10/24/24 [History] Fluticasone Propion/Salmeterol [Fluticasone-Salmeterol 250-50] 1 puff INHALATION RT-BID 10/24/24 [History] Insulin Lispro [humaLOG Kwikpen] See Protocol SQ ACHS 10/24/24 [History] Morphine Sulfate ER [Ms Contin] 30 mg PO BID 10/24/24 [History] Morphine Sulfate Ir [MSIR] 15 mg PO Q4-6H PRN 10/24/24 [History] Ondansetron Odt [Zofran ODT] 4 mg PO BID PRN 10/24/24 [History] Apixaban [Eliquis] 5 mg PO BID 30 Days #60 tab 10/28/24 [Rx] Furosemide [Lasix] 20 mg PO BID@0900,1600 30 Days #60 tab 10/28/24 [Rx] Metoprolol Tartrate [Lopressor] 100 mg PO BID 30 Days #120 tab 10/28/24 [Rx] lisinopriL [Zestril] 20 mg PO DAILY 30 Days #30 tab 10/28/24 [Rx] Follow up Appointment(s)/Referral(s): Scarlet Dior MD [Primary Care Provider] - 1-2 days Elgin Mcfadden MD [Medical Doctor] - 1 Week Discharge Disposition: HOME SELF-CARE
--- NOTE | 2024-10-28 13:14 | P.PN ---
Subjective Progress Note Date: 10/28/24 HISTORY OF PRESENTING ILLNESS: 69-year-old female with past medical history of hypertension, dyslipidemia, asthma. She was transferred from [facility] because of new onset atrial fibrillation with RVR. She initially presented because of substernal chest pressure and increased worsening shortness of breath with minimal exertion for last 2 days. She denies any lightheadedness dizziness or syncopal episode. She also has history of breast cancer, mediastinal lymphadenopathy, COPD, morbid obesity, type 2 diabetes, hypertension dyslipidemia. On admission she was found to be in A-fib with RVR and was started on Cardizem drip. Her troponins x 2 were negative, HbA1c was 6.2 BUN 15, creatinine 0.8 Chest x-ray shows mild pulm congestion with signs of possible pneumonia in the right lower lung. BP 130/70, heart rate 95 bpm. EKG shows atrial fibrillation with mild IVCD, heart rate 89 bpm. Progress note Patient continues to be in atrial fibrillation however having rates are controlled, blood pressure is controlled No new cardiovascular symptoms. 10/26 Patient seen and examined. Patient does not feel that she is back to her baseline. She is hoping to go home tomorrow. Blood pressure readings remain elevated and some of her home medications have not been resumed. Blood pressure 154/77, heart rate 93, pulse ox 100% on 4 L nasal cannula. No repeat blood work today. Echocardiogram reveals EF 55 to 60%, tachycardic rhythm, RVSP 35 mmHg, moderate mitral regurgitation, mild TR, mild pulmonary hypertension with RVSP 35 mmHg. 10/27 Yesterday we added and lisinopril at a lower dose at 10 mg which is one of her home medications. Blood pressure readings remain elevated. We also asked for patient be weaned off oxygen. She is not requiring oxygen at this time. Blood pressure 150/74, heart rate 100, pulse ox 96% on room air. Repeat blood work reveals hemoglobin 8.5, potassium 3.9, BUN 25 creatinine 1. 10/28 Patient seen and examined. Yesterday we increased lisinopril for better blood pressure control. Today blood pressure is 115/54, heart rate 102, pulse ox 97% on room air. Patient denies chest pain no shortness of breath no palpitations. Patient has been maintained on IV Lasix 20 mg every 12 hours. PHYSICAL EXAMINATION: Neck: Brisk carotid upstroke, no jugular venous distention. Lungs: Mild crackles or rhonchi audible Heart: Irregularly irregular pulse, S1-S2 audible, systolic ejection murmur. Abdomen: Soft nontender, positive bowel sounds. Extremities: No edema, intact distal pulses. Neuro: Alert, oritented, no focal deficits. Detailed neuro exam was not perf ormed. ASSESSMENT: # New onset paroxysmal atrial fibrillation with RVR, currently rate controlled # Complicated pneumonia # Breast cancer diagnosed in 2020 with right mastectomy # Mediastinal lymphadenopathy # Chronic comorbidities: COPD, type 2 diabetes, hypertension, dyslipidemia Cardiac testing TSH is normal, HbA1c 6.1, LDL 46, NT-proBNP 2490 PLAN: Continue Eliquis 5 mg twice daily Continue lisinopril to 20 mg daily Transition IV Lasix to oral 20 mg twice daily Increase Lopressor to 100 mg twice daily No further cardiac workup at this time. Patient may follow-up in the office with Dr. Mcfadden in 1 week. Patient is cleared for discharge from cardiology perspective. Nurse practitioner note has been reviewed, I agree with documented findings and plan of care. Patient was seen and examined. Objective - Vital Signs Vital signs: Vital Signs Temp 97.6 F 10/28/24 04:00 Pulse 94 10/28/24 04:00 Resp 19 10/28/24 04:00 BP 111/62 10/28/24 04:00 Pulse Ox 96 10/28/24 04:00 FiO2 Intake & Output 10/27/24 10/28/24 10/28/24 18:59 06:59 18:59 Intake Total 1320 20 Output Total 400 Balance 1320 -380 Weight 68.5 kg Intake: IV 20 Invasive Line 3 20 Oral 1320 Output: Urine 400 Other: Voiding Method Toilet # Voids 1 - Labs CBC & Chem 7: 10/27/24 06:01 10/27/24 06:01 Labs: Abnormal Lab Results - Last 24 Hours (Table) 10/24/24 10/27/24 10/27/24 Range/Units 12:34 11:27 16:30 POC Glucose (mg/dL) 154 H 226 H 229 H (70-110) mg/dL 10/27/24 10/28/24 Range/Units 19:56 06:23 POC Glucose (mg/dL) 195 H 181 H (70-110) mg/dL
[2024-10-28] MEDS: ONDANSETRON ODT 4 MG TAB PO STA (16:42)
[2024-10-28 16:49] VITALS: BP 138/67; PULSE 107; RESP 18
--- NOTE | 2024-10-28 17:10 | P.PN ---
Subjective Progress Note Date: 10/28/24 On today's evaluation of 10/26/2024, the patient is being seen for a follow-up. The patient is currently on 2 L of oxygen by nasal cannula. She feels less short of breath compared to yesterday. She remains atrial fibrillation. Rate is under better control and the patient was given metoprolol 50 mg p.o. 3 times daily and she is on anticoagulation with Eliquis. She remains on IV Lasix 20 mg every 12 hours. Rest of the medications remain unchanged. She remains on lisinopril 10 mg p.o. daily. She remains on Lipitor. In terms of oxygenation, the patient is on 2 L of O2 nasal cannula. She remains in negative fluid balance of 1.8 L over the past 24 hours. No new labs are available from today. Renal function from yesterday was within normal limits. The white cell count is at 3.7 with a hemoglobin of 9.0. Chest x-ray from the time of admission showed CHF with increased pulm vascular markings and pulmonary edema and small bilateral pleural effusions. Echocardiogram from 10/24/2024 showed a preserved LV function with an ejection fraction of 55 to 60%. There is normal RV size and function and right ventricular systolic pressure was estimated to be 35. She has moderate degree of mitral regurgitation. On today's evaluation of 10/27/2024, the patient is doing well. Less short of breath. Resting comfortably in bed. She is currently on room air oxygen. Remains in atrial fibrillation with a controlled rate. She is currently on metoprolol 50 mg p.o. 3 times daily and the patient continues to be on Lasix 20 mg IV every 12 hours. Producing adequate amount of urine output. She remains on anticoagulation with Eliquis. She reports improvement in respiratory status. Fluid balance is -820 cc over the past 24 hours. The white cell count of 3.5, hemoglobin is at 8.5 and a platelet count of 109. BUN is 25 with a creatinine of 1 and sodium levels at 132 and a potassium level is 3.9. No other significant events overnight. She is doing well. On 10/28/2024, the patient is being seen for a follow-up. The patient is currently on room air oxygen. Denies having any significant shortness of breath. No chest pain. No cough or sputum production. No chest tightness or wheezing. Remains on Lasix 20 mg p.o. twice a day. Remains on anticoagulation with Eliquis. She remains in atrial fibrillation with a controlled rate and the patient is currently on metoprolol 100 mg p.o. twice a day and anticoagulation with Eliquis. Blood work was reviewed. No follow-up blood work from today. Yesterday's labs were all stable. Objective - Vital Signs Vital signs: Vital Signs Temp 98.2 F 10/28/24 08:20 Pulse 106 H 10/28/24 08:20 Resp 16 10/28/24 08:20 BP 119/57 10/28/24 08:20 Pulse Ox 93 L 10/28/24 08:20 FiO2 Intake & Output 10/27/24 10/28/24 10/28/24 18:59 06:59 18:59 Intake Total 1320 20 Output Total 400 200 Balance 1320 -380 -200 Weight 68.5 kg Intake: IV 20 Invasive Line 3 20 Oral 1320 Output: Urine 400 200 Other: Voiding Method Toilet Toilet # Voids 1 - Exam GENERAL EXAM: Alert, 69-year-old female, on room air oxygen, comfortable in no apparent distress. HEAD: Normocephalic. EYES: Normal reaction of pupils, equal size. NOSE: Clear with pink turbinates. THROAT: No erythema or exudates. NECK: No masses, no JVD. CHEST: No chest wall deformity. LUNGS: Equal air entry with no crackles, wheeze, rhonchi or dullness. CVS: S1 and S2 normal with no audible murmur, irregular rhythm. ABDOMEN: No hepatosplenomegaly, normal bowel sounds, no guarding or rigidity. SPINE: No scoliosis or deformity SKIN: No rashes CENTRAL NERVOUS SYSTEM: No focal deficits, tone is normal in all 4 extremities. EXTREMITIES: There is no peripheral edema. No clubbing, no cyanosis. Periphera l pulses are intact. 2 - Labs CBC & Chem 7: 10/27/24 06:01 10/27/24 06:01 Labs: Abnormal Lab Results - Last 24 Hours (Table) 10/27/24 10/27/24 10/27/24 Range/Units 11:27 16:30 19:56 POC Glucose (mg/dL) 226 H 229 H 195 H (70-110) mg/dL 10/28/24 Range/Units 06:23 POC Glucose (mg/dL) 181 H (70-110) mg/dL Assessment and Plan Plan: Acute hypoxic respiratory failure, currently on room air oxygen CHF with chronic heart failure and secondary edema, improving, remains on diuretics and the patient has been switched to oral Lasix. Echocardiogram showed a preserved LV function with moderate degree of mitral regurgitation Chest pressure and shortness of breath secondary to atrial fibrillation with a rapid ventricular response, recovered Atrial fibrillation with a rapid ventricular response, still in atrial fibrillation with a controlled rate, the patient is currently on metoprolol anticoagulation with Eliquis Mild intermittent chronic bronchial asthma Diabetes mellitus, type II Hypertension Hyperlipidemia Chronic back pain Breast cancer status post right mastectomy Former smoker Gastroesophageal reflux disease Plan: Patient is currently on room air oxygen Echocardiogram reviewed, preserved LV function with moderate MR Heart rate better controlled and the patient is on metoprolol 100 mg p.o. twice a day Anticoagulation with Eliquis Continue Symbicort and albuterol Oral Lasix Procalcitonin negative Antibiotics discontinued Will continue to follow. Possible discharge today or within the next 24 hours.
== END 2024-10-28 17:45 | disposition home or self-care (01) | DRG 308 ==
LOC: EC 00:22 → 3SCARD 03:42
PROVIDERS: ADMIT Internal Medicine; ATTEND Internal Medicine
DX: I48.0 Paroxysmal atrial fibrillation (principal); J15.9 Unspecified bacterial pneumonia; J96.01 Acute respiratory failure with hypoxia; I27.20 Pulmonary hypertension, unspecified; I11.0 Hypertensive heart disease with heart failure; I27.29 Other secondary pulmonary hypertension; J44.0 Chronic obstructive pulmonary disease with (acute) lower respiratory infection; E11.9 Type 2 diabetes mellitus without complications; E03.9 Hypothyroidism, unspecified; I50.9 Heart failure, unspecified; Z79.4 Long term (current) use of insulin; E78.00 Pure hypercholesterolemia, unspecified; G89.29 Other chronic pain; Z87.891 Personal history of nicotine dependence; M54.9 Dorsalgia, unspecified; K21.9 Gastro-esophageal reflux disease without esophagitis; Z79.01 Long term (current) use of anticoagulants; Z79.51 Long term (current) use of inhaled steroids; Z79.899 Other long term (current) drug therapy; Z79.811 Long term (current) use of aromatase inhibitors; Z82.49 Family history of ischemic heart disease and other diseases of the circulatory system; J45.20 Mild intermittent asthma, uncomplicated; R59.0 Localized enlarged lymph nodes; Z87.442 Personal history of urinary calculi; Z90.11 Acquired absence of right breast and nipple; Z96.612 Presence of left artificial shoulder joint; Z96.651 Presence of right artificial knee joint; Z98.1 Arthrodesis status; Z85.3 Personal history of malignant neoplasm of breast; Z88.8 Allergy status to other drugs, medicaments and biological substances
CPT/HCPCS: 71045; 80053; 80061; 83036; 83880; 84145; 84443; 84484; 85025; 85652; 85730; 86140; 93005; 93306; 94640; 94760; 96365; 96366; 96367; 96368; 96375; 96376; 99285

== ENCOUNTER 2024-11-26 23:31 | Inpatient (IN) | payer MEDICARE, OTHER ==
[2024-11-27] MEDS: HYDROmorphone 0.5 MG/0.5 ML SYRINGE IVP STA (00:23)
[2024-11-27] MEDS: DILTIAZEM DRIP BOLUS FROM BAG 1 MG SOLN IV ONE (00:36)
[2024-11-27] MEDS: DILTIAZEM 125 MG in SODIUM CHLORIDE 0.9% 100 ML IV SCH (00:40)
[2024-11-27 01:08] LABS: Basophils # (A) 0.01 10*3/uL (0.00-0.10); Basophils % (A) 0.3 %; Eosinophils # (A) 0.02 10*3/uL (0.04-0.35); Eosinophils % (A) 0.5 %; HCT 27.3 % (37.2-46.3); HGB 8.6 g/dL (12.0-15.0); Lymphocytes # (A) 0.72 10*3/uL (0.90-5.00); Lymphocytes % (A) 18.2 %; MCHC 31.5 g/dL (32.0-37.0); MCV 88.9 fL (80.0-97.0); Mean Platelet Volume 9.4 fL (9.5-12.2); Monocytes # (A) 0.25 10*3/uL (0.20-1.00); Monocytes % (A) 6.3 %; Neutrophils # (A) 2.89 10*3/uL (1.80-7.70); Neutrophils % (A) 73.2 %; Platelet Count 128 10*3/uL (140-440); RBC 3.07 10*6/uL (4.10-5.20); WBC 3.95 10*3/uL (4.50-10.00)
[2024-11-27 01:30] LABS: ALT 13 U/L (4-34); AST 27 U/L (14-36); African American GFR (CKD) 63 (>60 ml/min/1.73 sqM); Albumin 3.4 g/dL (3.5-5.0); Alkaline Phosphatase 521 U/L (38-126); Anion Gap 8 mmol/L; Blood Urea Nitrogen 34 mg/dL (7-17); Calcium 9.2 mg/dL (8.4-10.2); Carbon Dioxide 29 mmol/L (22-30); Chloride 99 mmol/L (98-107); Glucose 128 mg/dL (74-99); Magnesium 1.9 mg/dL (1.6-2.3); Non-African American GFR(CKD) 54 (>60 ml/min/1.73 sqM); Potassium 4.1 mmol/L (3.5-5.1); Sodium 136 mmol/L (137-145); Total Bilirubin 1.1 mg/dL (0.2-1.3); Total Protein 6.7 g/dL (6.3-8.2)
[2024-11-27] MEDS: MORPHINE SULFATE IR 15 MG TABLET PO PRN (03:30)
[2024-11-27] MEDS ORDERED: NITROGLYCERIN SL TABS 0.4 MG TAB SUBLINGUAL PRN (05:48)
--- NOTE | 2024-11-27 07:13 | ED ---
Chest Pain HPI - General Chief Complaint: Arrhythmia/Palpitations Stated Complaint: AFib RvR Time Seen by Provider: 11/26/24 23:48 Source: patient, EMS Mode of arrival: EMS Limitations: no limitations - History of Present Illness Initial Comments: This patient is a 69-year-old woman arriving as a transfer from [facility]. The patient had gone to the hospital there with complaint of having chest pain and shortness of breath that had come on approximately 24 hours prior. The patient on arrival was noted to be tachycardic and dyspneic. The workup revealed that the patient was having atrial fibrillation with rapid ventricular rate. The patient was started on Cardizem and transferred here for further cardiology evaluation. The patient had chest x-ray that was suggestive of CHF exacerbation. The patient had labs including chemistry that revealed glucose of 210. BUN 36, creatinine 1.1. Remainder of the chemistries unremarkable. BNP was 328. Initial troponin was negative. Patient received Cardizem bolus and drip. She received morphine 2 mg x 2. She received dose of Lasix. She had Nitropaste 2 inch applied to the chest wall. On arrival, patient states that the chest pain has improved somewhat but she is having flareup of her chronic pains for which she takes morphine extended release 30 mg twice per day with as needed doses as needed MD Complaint: chest pain Onset/Timin -: days(s) Onset: during rest Pain Location: substernal Pain Radiation: none Severity: moderate Quality: aching, heaviness Improves With: nothing Worsens With: nothing Anginal Symptoms: dyspnea Other Symptoms: palpitations Treatments Prior to Arrival: aspirin, nitroglycerin, oxygen, other - Related Data Home Medications Medication Instructions Recorded Confirmed Butalb/Acetaminophen/Caffeine 1 tab PO BID PRN 04/11/14 11/27/24 [Fioricet 50-325-40 mg Tablet] Albuterol Sulfate [Albuterol 2 puff INHALATION RT-QID PRN 03/09/24 11/27/24 Sulfate Hfa] Atorvastatin [Lipitor] 10 mg PO DAILY 03/09/24 11/27/24 Baclofen [Lioresal] 20 mg PO BID 08/18/24 11/27/24 Albuterol Nebulized [Ventolin 2.5 mg INHALATION RT-QID 10/24/24 11/27/24 Nebulized] Docusate [Colace] 100 mg PO DAILY 10/24/24 11/27/24 Fluticasone Propion/Salmeterol 1 puff INHALATION RT-BID 10/24/24 11/27/24 [Fluticasone-Salmeterol 250-50] Insulin Lispro [humaLOG Kwikpen] See Protocol SQ ACHS 10/24/24 11/27/24 Morphine Sulfate ER [Ms Contin] 30 mg PO BID 10/24/24 11/27/24 Morphine Sulfate Ir [MSIR] 15 mg PO Q4-6H PRN 10/24/24 11/27/24 Ondansetron Odt [Zofran ODT] 4 mg PO BID PRN 10/24/24 11/27/24 Previous Rx's Medication Instructions Recorded Anastrozole [Arimidex] 1 mg PO DAILY tab 08/31/24 Insulin Glargine,Hum.rec.anlog 30 units SQ HS #0 08/31/24 [Lantus Solostar Pen] Pantoprazole [Protonix] 40 mg PO AC-BID #0 tab 08/31/24 Apixaban [Eliquis] 5 mg PO BID 30 Days #60 tab 10/28/24 Furosemide [Lasix] 20 mg PO BID@0900,1600 30 Days #60 10/28/24 tab Metoprolol Tartrate [Lopressor] 100 mg PO BID 30 Days #120 tab 10/28/24 lisinopriL [Zestril] 20 mg PO DAILY 30 Days #30 tab 10/28/24 Allergies Allergy/AdvReac Type Severity Reaction Status Date / Time gabapentin AdvReac Confusion Verified 11/27/24 08:51 ibuprofen [From Motrin] AdvReac Abdominal Verified 11/27/24 08:51 Pain and vomiting pregabalin [From Lyrica] AdvReac Confusion Verified 11/27/24 08:51 Review of Systems ROS Statement: Those systems with pertinent positive or pertinent negative responses have been documented in the HPI. ROS Other: All systems not noted in ROS Statement are negative. Constitutional: Denies: fever, chills, weakness Respiratory: Reports: dyspnea. Denies: cough Cardiovascular: Reports: chest pain, palpitations, orthopnea. Denies: edema, syncope Gastrointestinal: Denies: abdominal pain, nausea, vomiting, diarrhea Genitourinary: Denies: dysuria, hematuria Musculoskeletal: Denies: back pain Skin: Denies: rash Neurological: Denies: headache, weakness EKG Findings - EKG Results: EKG: normal axis, normal QRS EKG shows: tachycardia (Rate approximately 115 bpm), atrial fibrillation - Blocks, Moroni, Hypertrophy, ST Abn: Repolarization changes or abnormalities: nonspecific abnormality, ST segment, and/or T wave Past Medical History Past Medical History: Asthma, Cancer, COPD, Diabetes Mellitus, GERD/Reflux, Hyperlipidemia, Hypertension, Musculoskeletal Disorder Additional Past Medical History / Comment(s): Migraine headaches. Hx kidney stone. Chronic back pain, numbness and tingling bilateral lower extremities. Right Breast cancer History of Any Multi-Drug Resistant Organisms: None Reported, MRSA Date of last positivie culture/infection: 2011 MDRO Source:: UNK Past Surgical History: Appendectomy, Back Surgery, Breast Surgery, Cholecystectomy, Joint Replacement, Orthopedic Surgery Additional Past Surgical History / Comment(s): Fusion w/ kane also back surgery 04/21/2019. Left Shoulder Replacement, Right knee replacement, plate in right wrist, left thumb joint repair, Right CTR, Right shoulder arthroscopy. micheal cataracts, LARYNGOSCOPY, November 2016 Cervical Plate, PAIN CLINIC PROCEDURES, right masectomy Past Anesthesia/Blood Transfusion Reactions: No Reported Reaction Past Psychological History: No Psychological Hx Reported Smoking Status: Former smoker - Past Family History Brother(s) Family Medical History: Cancer, Myocardial Infarction ([place]) Father Family Medical History: Cancer Additional Family Medical History / Comment(s): throat, colon, liver, and brain cancer. Mother Family Medical History: Myocardial Infarction ([place]) Additional Family Medical History / Comment(s): at 54 of [place]. General Exam Limitations: no limitations General appearance: alert, in no apparent distress Head exam: Present: atraumatic, normocephalic Eye exam: Present: normal appearance ENT exam: Present: normal oropharynx Neck exam: Present: normal inspection, full ROM Respiratory exam: Present: rales ( Bilateral bases). Absent: wheezes, rhonchi, stridor, chest wall tenderness, accessory muscle use Cardiovascular Exam: Present: tachycardia, irregular rhythm. Absent: systolic murmur, diastolic murmur, rubs, gallop GI/Abdominal exam: Present: soft. Absent: distended, tenderness, guarding, rebound, rigid, mass Extremities exam: Present: normal inspection, normal capillary refill. Absent: pedal edema, calf tenderness Back exam: Present: normal inspection. Absent: CVA tenderness (R), CVA tenderness (L), vertebral tenderness Neurological exam: Present: alert Skin exam: Present: warm, dry, intact, normal color. Absent: rash Course Vital Signs 11/26/24 11/26/24 11/26/24 23:40 23:51 23:55 Temperature 97.6 F Pulse Rate 109 H 105 H Pulse Rate [ Spanish Literature Professor ] Respiratory 20 Rate Blood Pressure 132/105 146/95 O2 Sat by Pulse 100 Oximetry 11/27/24 11/27/24 11/27/24 02:20 06:00 07:29 Temperature 97.8 F Pulse Rate 107 H 90 100 Pulse Rate [ Spanish Literature Professor ] Respiratory 20 20 22 Rate Blood Pressure 144/85 152/88 145/96 O2 Sat by Pulse 99 98 99 Oximetry 11/27/24 11/27/24 11/27/24 07:44 07:55 09:57 Temperature Pulse Rate 115 H 112 H 89 Pulse Rate [ Spanish Literature Professor ] Respiratory 24 Rate Blood Pressure 138/91 O2 Sat by Pulse 95 Oximetry 11/27/24 11/27/24 11/27/24 11:00 11:08 14:57 Temperature Pulse Rate 85 81 87 Pulse Rate [ Spanish Literature Professor ] Respiratory 20 Rate Blood Pressure 140/90 O2 Sat by Pulse 98 Oximetry 11/27/24 11/27/24 11/27/24 18:11 19:36 19:39 Temperature Pulse Rate 69 82 90 Pulse Rate [ Spanish Literature Professor ] Respiratory 16 18 Rate Blood Pressure 135/75 135/73 O2 Sat by Pulse 100 100 Oximetry 11/27/24 11/27/24 11/28/24 19:49 22:49 02:38 Temperature Pulse Rate 83 71 70 Pulse Rate [ Spanish Literature Professor ] Respiratory 16 16 Rate Blood Pressure 135/73 135/73 O2 Sat by Pulse 97 100 Oximetry 11/28/24 11/28/24 11/28/24 05:26 07:47 07:58 Temperature Pulse Rate 74 80 85 Pulse Rate [ Spanish Literature Professor ] Respiratory 16 Rate Blood Pressure 135/73 O2 Sat by Pulse 100 Oximetry 11/28/24 11/28/24 11/28/24 08:20 08:22 10:38 Temperature 98.6 F Pulse Rate 104 H 90 Pulse Rate [ 94 Spanish Literature Professor ] Respiratory 18 18 Rate Blood Pressure 133/83 O2 Sat by Pulse 100 99 Oximetry 11/28/24 11/28/24 11/28/24 11:21 11:36 12:17 Temperature 97.0 F L Pulse Rate 86 80 101 H Pulse Rate [ Spanish Literature Professor ] Respiratory 18 Rate Blood Pressure 124/81 O2 Sat by Pulse 99 Oximetry 11/28/24 14:09 Temperature 97.6 F Pulse Rate 71 Pulse Rate [ Spanish Literature Professor ] Respiratory 20 Rate Blood Pressure 137/81 O2 Sat by Pulse 100 Oximetry Chest Pain MDM - [facility] Patient is 69-year-old woman who arrives as transfer from [facility]. Patient having A-fib with RVR. She is taking oral anticoagulant. The patient is continued on Cardizem. Admitted to have further cardiology consultation. Was pt. sent in by a medical professional or institution (, PA, EQUIPMENT INSTALLATION PROFESSIONAL, urgent care, hospital, or skilled nursing...) When possible be specific @ -[Yes the patient arrives here as transfer from outside hospital Did you speak to anyone other than the patient for history (EMS, parent, family, police, friend...)? What history was obtained from this source @ -[No] Did you review nursing and triage notes (agree or disagree)? Why? @ -[I reviewed and agree with nursing and triage notes] Were old charts reviewed (outside hosp., previous admission, EMS record, old EKG, old radiological studies, urgent care reports/EKG's, skilled nursing records)? Report findings @ -[The transfer charts were reviewed] Differential Diagnosis (chest pain, altered mental status, abdominal pain women, abdominal pain men, vaginal bleeding, weakness, fever, dyspnea, syncope, headache, dizziness, GI bleed, back pain, seizure, CVA, palpatations, mental health, musculoskeletal)? @ -[Differential Dyspnea: Coronary syndrome, arrhythmia, tamponade, asthma, COPD, pulmonary embolism, pneumonia, pneumothorax, pulmonary effusion, anaphylaxis, diabetic ketoacidosis, flailed chest, pulmonary contusion, diaphragmatic rupture, anemia, neuromuscular, this is not meant to be an all-inclusive list. EKG interpreted by me (3pts min.). @ -[As above] X-rays interpreted by me (1pt min.). @ -[None done] CT interpreted by me (1pt min.). @ -[None done] U/S interpreted by me (1pt. min.). @ -[None done] What testing was considered but not performed or refused? (CT, X-rays, U/S, labs)? Why? @ -[None] What meds were considered but not given or refused? Why? @ -[None] Did you discuss the management of the patient with other professionals (professionals i.e. , PA, EQUIPMENT INSTALLATION PROFESSIONAL, lab, RT, psych nurse, psychiatric social worker supervisor, sales operations coordinator, teacher, postal sorting officer, caseworker)? Give summary @ -[Case discussed with admitting physician and treatment recommendations are incorporated Was smoking cessation discussed for >3mins.? @ -[No] Was critical care preformed (if so, how long)? @ -[Yes, 35 minutes Were there social determinants of health that impacted care today? How? (Homelessness, low income, unemployed, alcoholism, drug addiction, transportation, low edu. Level, literacy, decrease access to med. care, [facility], rehab)? @ -[No] Was there de-escalation of care discussed even if they declined (Discuss DNR or withdrawal of care, Hospice)? DNR status @ -[No] What co-morbidities impacted this encounter? (DM, HTN, Smoking, COPD, CAD, Cancer, CVA, ARF, Chemo, Hep., AIDS, mental health diagnosis, sleep apnea, morbid obesity)? @ -[Hypertension, diabetes, COPD, breast cancer Was patient admitted / discharged? Hospital course, mention meds given and route, prescriptions, significant lab abnormalities, going to OR and other pertinent info. @ -[The patient is admitted to have further care as well as consultations. Undiagnosed new problem with uncertain prognosis? @ -[No] Drug Therapy requiring intensive monitoring for toxicity (Heparin, Nitro, Insulin, Cardizem)? @ -[IV Cardizem Were any procedures done? @ -[No] Diagnosis/symptom? @ -[Atrial fibrillation with rapid ventricular rate Anemia Acute, or Chronic, or Acute on Chronic? @ -[Acute Uncomplicated (without systemic symptoms) or Complicated (systemic symptoms)? @ -[Uncomplicated Side effects of treatment? @ -[No] Exacerbation, Progression, or Severe Exacerbation? @ -[No] Poses a threat to life or bodily function? How? (Chest pain, [place], [place], pneumonia, PE, COPD, DKA, ARF, appy, cholecystitis, CVA, Diverticulitis, Homicidal, Suicidal, threat to staff... and all critical care pts) @ -[Yes All treatments are based on ideal body weight as in ED triage Disposition Clinical Impression: Chronic pain, Atrial fibrillation with rapid ventricular response, Chest pain Disposition: ADMITTED IP TO THIS HOSP Condition: Good Is patient prescribed a controlled substance at d/c from ED?: No
[2024-11-27] MEDS: SODIUM CHLORIDE 0.9% 1,000 ML IV SCH (07:34)
[2024-11-27] MEDS: ALBUTEROL NEBULIZED 2.5 MG/3 ML INHALATION SCH (07:43)
[2024-11-27] MEDS: SYMBICORT 80-4.5 MCG INHALER INHALATION SCH (07:43)
[2024-11-27] MEDS: MORPHINE SULFATE ER 30 MG TABLET PO SCH (08:03)
[2024-11-27] MEDS: METOPROLOL TARTRATE 50 MG TAB PO SCH (08:04)
[2024-11-27] MEDS: BACLOFEN 10 MG TAB PO SCH (08:04)
[2024-11-27] MEDS: PANTOPRAZOLE 40 MG TABLET PO SCH (08:04)
[2024-11-27] MEDS: lisinopriL 20 MG TAB PO SCH (08:05)
[2024-11-27] MEDS: APIXABAN 5 MG TAB PO SCH (08:05)
[2024-11-27] MEDS: ATORVASTATIN 10 MG TAB PO SCH ×2 (08:05→08:57)
[2024-11-27] MEDS: FUROSEMIDE 20 MG TAB PO SCH (08:05)
[2024-11-27] MEDS: DOCUSATE 100 MG CAP PO SCH (08:05)
[2024-11-27] MEDS: FUROSEMIDE 10 MG/ML 4 ML VIAL IV SCH (08:57)
[2024-11-27] MEDS ORDERED: BUTALB/APAP/CAFF 50-325-40MG TAB PO PRN (09:00)
[2024-11-27] MEDS: ATORVASTATIN 40 MG TAB PO SCH (09:15)
[2024-11-27 09:39] LABS: African American GFR (CKD) 50 (>60 ml/min/1.73 sqM); Anion Gap 6 mmol/L; Blood Urea Nitrogen 32 mg/dL (7-17); Calcium 8.9 mg/dL (8.4-10.2); Carbon Dioxide 33 mmol/L (22-30); Chloride 96 mmol/L (98-107); Glucose 196 mg/dL (74-99); Non-African American GFR(CKD) 44 (>60 ml/min/1.73 sqM); Potassium 4.2 mmol/L (3.5-5.1); Sodium 135 mmol/L (137-145)
[2024-11-27 09:47] LABS: NT-Pro-B-Type Natriuretic Pept 4300 pg/mL
[2024-11-27] MEDS: ANASTROZOLE 1 MG TAB PO SCH (10:46)
--- NOTE | 2024-11-27 11:09 | XR ---
EXAMINATION TYPE: XR chest 2V DATE OF EXAM: 11/27/2024 10:54 AM COMPARISON: 325 CLINICAL INDICATION: Female, 69 years old with history of SOB, TECHNIQUE: XR chest 2V view(s) obtained. FINDINGS: The heart size is prominent. The pulmonary vasculature is normal. Bibasilar infiltrates are present greater on the left. Correlate for pneumonia. Atelectasis could be considered. Pulmonary edema could be considered in the proper clinical setting. IMPRESSION: 1. Bibasilar infiltrates left greater than right. Correlate for atelectasis than pneumonia and atypic al pulmonary edema. Follow-up recommended [facility], , 11/27/2024 11:06 AM
[2024-11-27] MEDS: MORPHINE SULFATE 2 MG/ML SYRINGE IVP STA (11:42)
[2024-11-27 12:44] LABS: Glucose,Whole Blood 237 mg/dL (70-110)
--- NOTE | 2024-11-27 13:33 | P.CRDCN ---
History of Present Illness Consult date: 11/27/24 Reason for Consult (text): afib w rvr History of present illness: This is a 69-year-old female previously seen by Dr. Gonzalez and has not f ollowed up since 2019 with past medical history of hypertension, hyperlipidemia, diabetes, recently diagnosed with atrial fibrillation, COPD, breast cancer, mediastinal lymphadenopathy. We have been asked to evaluate the patient for atrial fibrillation with RVR. Patient states she initially presented to [facility] due to sharp pain in the right upper chest worse with deep breathing. She denies any cough or wheezing. No fevers. She states she sometimes has palpitations and that her heart feels like it is pounding out of her chest. She states she has been taking all of her medications as directed however, she has had episodes of vomiting. She then takes an antiemetic and then retakes her medications. She complains of feeling very weak. She has difficulty walking to the bathroom. No chest wall tenderness. No lower extremity edema. No PND. She states she quit smoking many years ago. Blood pressure 145/96, heart rate 90, pulse ox 90% on 3 L nasal cannula. Patient has been started on Cardizem drip 5 mg/h and is seen today in the emergency center waiting for a bed on the cardiac stepdown unit. Patient has a recent hospitalization in October and was seen by cardiology at that time for new onset of atrial fibrillation and was started on Eliquis. -EKG: Atrial fibrillation with ventricular rate of 115 bpm. -Chest x-ray: Bibasilar infiltrates left greater than right correlate for atelectasis versus pneumonia versus atypical pulmonary edema. -Laboratory studies: WBC 3.9, hemoglobin 8.6, sodium 135, potassium 4.2, BUN 32 creatinine 1.27. Troponin negative x 3. Alkaline phosphatase 521. proBNP 4300. -Home cardiac medications: Eliquis 5 mg twice daily, atorvastatin 10 mg daily, Lasix 20 mg twice daily, lisinopril 20 mg daily, Lopressor 100 mg twice daily. -Echocardiogram performed 10/24/2024 revealed EF of 55 to 60%, RVSP 35 mmHg, moderate mitral regurgitation, mild TR. Review Of Systems: At the time of my exam: CONSTITUTIONAL: Denies fever or chills. HEENT: Denies blurred vision, vision changes, or eye pain. Denies hemoptysis CARDIOVASCULAR: Reports chest pain. Denies orthopnea. Denies PND. Denies palpitations RESPIRATORY: Denies shortness of breath. GASTROINTESTINAL: Denies abdominal pain. Denies nausea or vomiting. HEMATOLOGIC: Denies bleeding disorders. GENITOURINARY: Denies any blood in urine. SKIN: Denies puritis. Denies rash. Physical examination: Gen: This is 69-year-old female in no acute distress VS: reviewed HEENT: Head is atraumatic, normocephalic. Pupils equal, round. Sclerae is anicteric. NECK: Supple. No JVD. LUNGS: Clear to auscultation. No wheezes or rhonchi. No intercostal retractions. HEART: Irregular rate and rhythm. No murmur. ABDOMEN: Soft No tenderness. EXTREMITIES: Bilateral lower extremity edema right greater than left. No calf tenderness. NEUROLOGICAL: Patient is awake, alert and oriented x3. Assessment: Atypical chest pain, acute coronary syndrome ruled out Acute on chronic diastolic heart failure Paroxysmal atrial fibrillation with RVR Pancytopenia Hypertension Hyperlipidemia Diabetes mellitus type 2 COPD Breast cancer history Mediastinal lymphadenopathy Plan: Resume patient's home cardiac medications Start patient on IV Lasix 40 mg every 12 hours Monitor JOSE, daily weights, electrolytes and renal function No need to repeat echocardiogram as this was done in October Further recommendations to follow based upon clinical course At the time of discharge, patient will follow-up with Dr. Mcfadden in the office for further cardiac evaluation. Thank you kindly for this consultation. Nurse practitioner note has been reviewed, I agree with documented findings and plan of care. Patient was seen and examined. Past Medical History Past Medical History: Asthma, Cancer, COPD, Diabetes Mellitus, GERD/Reflux, Hyperlipidemia, Hypertension, Musculoskeletal Disorder Additional Past Medical History / Comment(s): Migraine headaches. Hx kidney stone. Chronic back pain, numbness and tingling bilateral lower extremities. Right Breast cancer History of Any Multi-Drug Resistant Organisms: None Reported, MRSA Date of last positivie culture/infection: 2011 MDRO Source:: UNK Past Surgical History: Appendectomy, Back Surgery, Breast Surgery, Cholecystectomy, Joint Replacement, Orthopedic Surgery Additional Past Surgical History / Comment(s): Fusion w/ kane also back surgery 04/21/2019. Left Shoulder Replacement, Right knee replacement, plate in right wrist, left thumb joint repair, Right CTR, Right shoulder arthroscopy. micheal cataracts, LARYNGOSCOPY, November 2016 Cervical Plate, PAIN CLINIC PROCEDURES, right masectomy Past Anesthesia/Blood Transfusion Reactions: No Reported Reaction Past Psychological History: No Psychological Hx Reported Smoking Status: Former smoker - Past Family History Brother(s) Family Medical History: Cancer, Myocardial Infarction ([place]) Father Family Medical History: Cancer Additional Family Medical History / Comment(s): throat, colon, liver, and brain cancer. Mother Family Medical History: Myocardial Infarction ([place]) Additional Family Medical History / Comment(s): at 54 of [place]. Medications and Allergies Home Medications Medication Instructions Recorded Confirmed Type Butalb/Acetaminophen/Caffeine 1 tab PO BID PRN 04/11/14 11/27/24 History [Fioricet 50-325-40 mg Tablet] Albuterol Sulfate [Albuterol 2 puff INHALATION RT-QID PRN 03/09/24 11/27/24 History Sulfate Hfa] Atorvastatin [Lipitor] 10 mg PO DAILY 03/09/24 11/27/24 History Baclofen [Lioresal] 20 mg PO BID 08/18/24 11/27/24 History Anastrozole [Arimidex] 1 mg PO DAILY tab 08/31/24 11/27/24 Rx Insulin Glargine,Hum.rec.anlog 30 units SQ HS #0 08/31/24 11/27/24 Rx [Lantus Solostar Pen] Pantoprazole [Protonix] 40 mg PO AC-BID #0 tab 08/31/24 11/27/24 Rx Albuterol Nebulized [Ventolin 2.5 mg INHALATION RT-QID 10/24/24 11/27/24 History Nebulized] Docusate [Colace] 100 mg PO DAILY 10/24/24 11/27/24 History Fluticasone Propion/Salmeterol 1 puff INHALATION RT-BID 10/24/24 11/27/24 History [Fluticasone-Salmeterol 250-50] Insulin Lispro [humaLOG Kwikpen] See Protocol SQ ACHS 10/24/24 11/27/24 History Morphine Sulfate ER [Ms Contin] 30 mg PO BID 10/24/24 11/27/24 History Morphine Sulfate Ir [MSIR] 15 mg PO Q4-6H PRN 10/24/24 11/27/24 History Ondansetron Odt [Zofran ODT] 4 mg PO BID PRN 10/24/24 11/27/24 History Apixaban [Eliquis] 5 mg PO BID 30 Days #60 tab 10/28/24 11/27/24 Rx Furosemide [Lasix] 20 mg PO BID@0900,1600 30 Days #60 10/28/24 11/27/24 Rx tab Metoprolol Tartrate [Lopressor] 100 mg PO BID 30 Days #120 tab 10/28/24 11/27/24 Rx lisinopriL [Zestril] 20 mg PO DAILY 30 Days #30 tab 10/28/24 11/27/24 Rx Allergies Allergy/AdvReac Type Severity Reaction Status Date / Time gabapentin AdvReac Confusion Verified 11/27/24 08:51 ibuprofen [From Motrin] AdvReac Abdominal Verified 11/27/24 08:51 Pain and vomiting pregabalin [From Lyrica] AdvReac Confusion Verified 11/27/24 08:51 Physical Exam Vitals: Vital Signs Temp Pulse Resp BP Pulse Ox 11/27/24 07:44 115 H 11/27/24 07:29 97.8 F 100 22 145/96 99 11/27/24 06:00 90 20 152/88 98 11/27/24 02:20 107 H 20 144/85 99 11/26/24 23:55 105 H 146/95 11/26/24 23:51 109 H 20 132/105 100 11/26/24 23:40 97.6 F Intake and Output 11/26/24 11/27/24 11/27/24 22:59 06:59 14:59 Other: Weight 86.183 kg Results 11/27/24 00:45 11/27/24 09:03 Cardiac Enzymes 11/27/24 11/27/24 11/27/24 Range/Units 00:45 00:45 07:07 AST 27 (14-36) U/L Troponin I <0.012 <0.012 (0.000-0.034) ng/mL CBC 11/27/24 Range/Units 00:45 WBC 3.95 L (4.50-10.00) 10*3/uL RBC 3.07 L (4.10-5.20) 10*6/uL Hgb 8.6 L (12.0-15.0) g/dL Hct 27.3 L (37.2-46.3) % Plt Count 128 L (140-440) 10*3/uL Comprehensive Metabolic Panel 11/27/24 Range/Units 00:45 Sodium 136 L (137-145) mmol/L Potassium 4.1 (3.5-5.1) mmol/L Chloride 99 (98-107) mmol/L Carbon Dioxide 29 (22-30) mmol/L BUN 34 H (7-17) mg/dL Creatinine 1.06 H (0.52-1.04) mg/dL Glucose 128 H (74-99) mg/dL Calcium 9.2 (8.4-10.2) mg/dL AST 27 (14-36) U/L ALT 13 (4-34) U/L Alkaline Phosphatase 521 H (38-126) U/L Total Protein 6.7 (6.3-8.2) g/dL Albumin 3.4 L (3.5-5.0) g/dL Current Medications Generic Name Dose Route Start Last Admin Trade Name Freq PRN Reason Stop Dose Admin Acetaminophen/Butalbital/Caffeine 1 each 11/27/24 09:00 Butalb/Apap/Caff 50-325-40mg Tab PO BID PRN Migraine Headache Albuterol Sulfate 2.5 mg 11/27/24 08:00 11/27/24 07:43 Albuterol Nebulized 2.5 Mg/3 Ml INHALATION 2.5 mg RT-QID JOCELYNE Administration Anastrozole 1 mg 11/27/24 09:00 Anastrozole 1 Mg Tab PO DAILY JOCELYNE Apixaban 5 mg 11/27/24 09:00 11/27/24 08:05 Apixaban 5 Mg Tab PO 5 mg BID JOCELYNE Administration Protocol Atorvastatin Calcium 10 mg 11/27/24 09:00 11/27/24 08:05 Atorvastatin 10 Mg Tab PO 10 mg DAILY JOCELYNE Administration Baclofen 20 mg 11/27/24 09:00 11/27/24 08:04 Baclofen 10 Mg Tab PO 20 mg BID JOCELYNE Administration Budesonide/Formoterol Fumarate 2 puff 11/27/24 08:00 11/27/24 07:43 Symbicort 80-4.5 Mcg Inhaler INHALATION 2 puff RT-BID JOCELYNE Administration Docusate Sodium 100 mg 11/27/24 09:00 11/27/24 08:05 Docusate 100 Mg Cap PO Not Given DAILY JOCELYNE Furosemide 20 mg 11/27/24 09:00 11/27/24 08:05 Furosemide 20 Mg Tab PO 20 mg BID@0900,1600 JOCELYNE Administration Diltiazem HCl 125 mg/ Sodium 125 mls @ 5 mls/hr 11/27/24 00:30 11/27/24 00:40 Chloride IV 5 mg/hr .Q24H JOCELYNE 5 mls/hr Administration 5 MG/HR Sodium Chloride 1,000 mls @ 20 mls/hr 11/27/24 06:00 11/27/24 07:34 Saline 0.9% IV Not Given .Q24H JOCELYNE Lisinopril 20 mg 11/27/24 09:00 11/27/24 08:05 Lisinopril 20 Mg Tab PO 20 mg DAILY JOCELYNE Administration Metoprolol Tartrate 100 mg 11/27/24 09:00 11/27/24 08:04 Metoprolol Tartrate 50 Mg Tab PO 100 mg BID JOCELYNE Administration Morphine Sulfate 30 mg 11/27/24 09:00 11/27/24 08:03 Morphine Sulfate Er 30 Mg Tablet PO 30 mg BID [facility] Administration Protocol Morphine Sulfate 15 mg 11/27/24 03:01 11/27/24 03:30 Morphine Sulfate Ir 15 Mg Tablet PO 15 mg Q6H PRN Administration Breakthrough Pain Nitroglycerin 0.4 mg 11/27/24 05:48 Nitroglycerin Sl Tabs 0.4 Mg Tab SUBLINGUAL Q5M PRN Chest Pain Ondansetron HCl 4 mg 11/27/24 05:51 Ondansetron Odt 4 Mg Tab PO BID PRN Nausea Pantoprazole Sodium 40 mg 11/27/24 07:30 11/27/24 08:04 Pantoprazole 40 Mg Tablet PO 40 mg AC-BID [facility] Administration Intake and Output 11/26/24 11/27/24 11/27/24 22:59 06:59 14:59 Other: Weight 86.183 kg 11/27/24 00:45 11/27/24 00:45
[2024-11-27] MEDS: INSULIN LISPRO (HumaLOG) 100 UNIT/ML 10 mL VL SQ SCH (14:02)
--- NOTE | 2024-11-27 15:30 | P.HPIM ---
History of Present Illness H&P Date: 11/27/24 This is a 69-year-old female with medical history significant for asthma COPD, diabetes mellitus, hypertension, hyperlipidemia, acid reflux, migraine, right breast cancer with prior mastectomy. Patient also has history of atrial fibrillation and is anticoagulated with eliquis on an outpatient basis. Patient is also a former smoker. Presented to the hospital for a 2-day history of chest pain and shortness of breath. States that she began vomiting Saturday overnight denies having any diarrhea and denies any fever or chills. She was having some burning like sensation after the vomiting and then developed a right sided chest pain with radiation into the shoulder. She initially presented to [facility] troponin levels were negative there. Patient received Nitropaste morphine was brought down to the [facility] for further cardiac evaluation. Her proBNP is elevated at 4300 her troponin levels here have been negative x 3. Chest x-ray reveals pulmonary vascular congestion. Sinat does state she missed multiple doses of her blood thinner because of the vomiting and GI upset. She is also complaining of worsening lower extremity edema. Patient states the right leg is always weaker than the left due a knee injury. On presentation patient was in atrial fibrillation with RVR and started on IV cardizem. She is also started on IV lasix. Patient takes oral morphine scheduled for chronic pain however has required multiple doses of IV morphine for the right shoulder pain. At this time rating it 5/10. Feels sharp in nature. Cardiology to evaluate the patient. REVIEW OF SYSTEMS: CONSTITUTIONAL: No fever, no malaise, no fatigue. HEENT: No recent visual problems or hearing problems. Denied any sore throat. CARDIOVASCULAR: Reports right sided chest pain, orthopnea, PND, no palpitations, no syncope. PULMONARY: Reports shortness of breath worse with inspiration, no cough, no hemoptysis. GASTROINTESTINAL: No diarrhea, no nausea, no vomiting, no abdominal pain. NEUROLOGICAL: No headaches, no weakness, no numbness. HEMATOLOGICAL: Denies any bleeding or petechiae. GENITOURINARY: Denies any burning micturition, frequency, or urgency. MUSCULOSKELETAL/RHEUMATOLOGICAL: Denies any joint pain, swelling, or any muscle pain. ENDOCRINE: Denies any polyuria or polydipsia. The rest of the 14-point review of systems is negative. PHYSICAL EXAMINATION: GENERAL: The patient is alert and oriented x3, not in any acute distress. Well developed, well nourished. HEENT: Pupils are round and equally reacting to light. EOMI. No scleral icterus. No conjunctival pallor. Normocephalic, atraumatic. No pharyngeal erythema. No thyromegaly. CARDIOVASCULAR: S1 and S2 present. No murmurs, rubs, or gallops. PULMONARY: Chest is clear to auscultation, no wheezing or crackles. Diminished ABDOMEN: Soft, nontender, nondistended, normoactive bowel sounds. No palpable organomegaly. Poon catheter in place MUSCULOSKELETAL: No joint swelling or deformity. EXTREMITIES: No cyanosis, clubbing, has mild peripheral edema NEUROLOGICAL: Gross neurological examination did not reveal any focal deficits. Generalized weakness SKIN: No rashes. Assessment and plan Chest pain atypical rule out acute coronary syndrome Acute congestive heart failure diastolic dysfunction Atrial fibrillation with rapid ventricular rate recently diagnosed in October History of paroxysmal atrial fibrillation anticoag with Eliquis Asthma/COPD with no acute exacerbation Normocytic anemia Diabetes mellitus type 2 Hypertension Hyperlipidemia Gastroesophageal reflux disease History of breast cancer with right mastectomy maintained on on Arimidex Former smoker Obesity Plan Continue IV Cardizem at this time patient remains in rapid ventricular rate IV lasix 40 mg [id number] and strict intake and output monitoring Continue indwelling poon catheter Eliquis has been resumed Check a D-dimer as patient continues to report shortness of breath worse with inspiration Protonix twice daily resume Continue Zofran as needed Check procalcitonin level PT/OT consultation The impression and plan of care has been dictated by Claire Kay, Nurse Practitioner as directed. Dr. Joesph MD I have performed a history and physical examination and medical decision making of this patient, discussed the same with the dictator, and agree with the dictators assessment and plan as written, documented as a scribe. Based on total visit time, I have performed more than 50% of this visit. Past Medical History Past Medical History: Asthma, Cancer, COPD, Diabetes Mellitus, GERD/Reflux, Hyperlipidemia, Hypertension, Musculoskeletal Disorder Additional Past Medical History / Comment(s): Migraine headaches. Hx kidney stone. Chronic back pain, numbness and tingling bilateral lower extremities. Right Breast cancer History of Any Multi-Drug Resistant Organisms: None Reported, MRSA Date of last positivie culture/infection: 2011 MDRO Source:: UNK Past Surgical History: Appendectomy, Back Surgery, Breast Surgery, Cholecystectomy, Joint Replacement, Orthopedic Surgery Additional Past Surgical History / Comment(s): Fusion w/ kane also back surgery 04/21/2019. Left Shoulder Replacement, Right knee replacement, plate in right wrist, left thumb joint repair, Right CTR, Right shoulder arthroscopy. micheal cataracts, LARYNGOSCOPY, November 2016 Cervical Plate, PAIN CLINIC PROCEDURES, right masectomy Past Anesthesia/Blood Transfusion Reactions: No Reported Reaction Past Psychological History: No Psychological Hx Reported Smoking Status: Former smoker - Past Family History Brother(s) Family Medical History: Cancer, Myocardial Infarction ([place]) Father Family Medical History: Cancer Additional Family Medical History / Comment(s): throat, colon, liver, and brain cancer. Mother Family Medical History: Myocardial Infarction ([place]) Additional Family Medical History / Comment(s): at 54 of [place]. Medications and Allergies Home Medications Medication Instructions Recorded Confirmed Type Butalb/Acetaminophen/Caffeine 1 tab PO BID PRN 04/11/14 11/27/24 History [Fioricet 50-325-40 mg Tablet] Albuterol Sulfate [Albuterol 2 puff INHALATION RT-QID PRN 03/09/24 11/27/24 History Sulfate Hfa] Atorvastatin [Lipitor] 10 mg PO DAILY 03/09/24 11/27/24 History Baclofen [Lioresal] 20 mg PO BID 08/18/24 11/27/24 History Anastrozole [Arimidex] 1 mg PO DAILY tab 08/31/24 11/27/24 Rx Insulin Glargine,Hum.rec.anlog 30 units SQ HS #0 08/31/24 11/27/24 Rx [Lantus Solostar Pen] Pantoprazole [Protonix] 40 mg PO AC-BID #0 tab 08/31/24 11/27/24 Rx Albuterol Nebulized [Ventolin 2.5 mg INHALATION RT-QID 10/24/24 11/27/24 History Nebulized] Docusate [Colace] 100 mg PO DAILY 10/24/24 11/27/24 History Fluticasone Propion/Salmeterol 1 puff INHALATION RT-BID 10/24/24 11/27/24 History [Fluticasone-Salmeterol 250-50] Insulin Lispro [humaLOG Kwikpen] See Protocol SQ ACHS 10/24/24 11/27/24 History Morphine Sulfate ER [Ms Contin] 30 mg PO BID 10/24/24 11/27/24 History Morphine Sulfate Ir [MSIR] 15 mg PO Q4-6H PRN 10/24/24 11/27/24 History Ondansetron Odt [Zofran ODT] 4 mg PO BID PRN 10/24/24 11/27/24 History Apixaban [Eliquis] 5 mg PO BID 30 Days #60 tab 10/28/24 11/27/24 Rx Furosemide [Lasix] 20 mg PO BID@0900,1600 30 Days #60 10/28/24 11/27/24 Rx tab Metoprolol Tartrate [Lopressor] 100 mg PO BID 30 Days #120 tab 10/28/24 11/27/24 Rx lisinopriL [Zestril] 20 mg PO DAILY 30 Days #30 tab 10/28/24 11/27/24 Rx Allergies Allergy/AdvReac Type Severity Reaction Status Date / Time gabapentin AdvReac Confusion Verified 11/27/24 08:51 ibuprofen [From Motrin] AdvReac Abdominal Verified 11/27/24 08:51 Pain and vomiting pregabalin [From Lyrica] AdvReac Confusion Verified 11/27/24 08:51 Physical Exam Vitals: Vital Signs Temp Pulse Resp BP Pulse Ox 11/27/24 14:57 87 20 140/90 98 11/27/24 11:08 81 11/27/24 11:00 85 11/27/24 09:57 89 24 138/91 95 11/27/24 07:55 112 H 11/27/24 07:44 115 H 11/27/24 07:29 97.8 F 100 22 145/96 99 11/27/24 06:00 90 20 152/88 98 11/27/24 02:20 107 H 20 144/85 99 11/26/24 23:55 105 H 146/95 11/26/24 23:51 109 H 20 132/105 100 11/26/24 23:40 97.6 F Intake and Output 11/27/24 11/27/24 11/27/24 06:59 14:59 22:59 Output Total 1000 Balance -1000 Output: Urine 1000 Other: Weight 86.183 kg Results CBC & Chem 7: 11/27/24 00:45 11/27/24 09:03 Labs: Abnormal Lab Results - Last 24 Hours (Table) 11/27/24 11/27/24 11/27/24 Range/Units 00:45 00:45 09:03 WBC 3.95 L (4.50-10.00) 10*3/uL RBC 3.07 L (4.10-5.20) 10*6/uL Hgb 8.6 L (12.0-15.0) g/dL Hct 27.3 L (37.2-46.3) % MCHC 31.5 L (32.0-37.0) g/dL Plt Count 128 L (140-440) 10*3/uL MPV 9.4 L (9.5-12.2) fL Immature Gran # 0.06 H (0.00-0.04) 10*3/uL Lymphocytes # 0.72 L (0.90-5.00) 10*3/uL Eosinophils # 0.02 L (0.04-0.35) 10*3/uL D-Dimer (<0.60) mg/L FEU Sodium 136 L 135 L (137-145) mmol/L Chloride 96 L (98-107) mmol/L Carbon Dioxide 33 H (22-30) mmol/L BUN 34 H 32 H (7-17) mg/dL Creatinine 1.06 H 1.27 H (0.52-1.04) mg/dL Glucose 128 H 196 H (74-99) mg/dL POC Glucose (mg/dL) (70-110) mg/dL Alkaline Phosphatase 521 H (38-126) U/L Albumin 3.4 L (3.5-5.0) g/dL 11/27/24 11/27/24 Range/Units 12:43 12:59 WBC (4.50-10.00) 10*3/uL RBC (4.10-5.20) 10*6/uL Hgb (12.0-15.0) g/dL Hct (37.2-46.3) % MCHC (32.0-37.0) g/dL Plt Count (140-440) 10*3/uL MPV (9.5-12.2) fL Immature Gran # (0.00-0.04) 10*3/uL Lymphocytes # (0.90-5.00) 10*3/uL Eosinophils # (0.04-0.35) 10*3/uL D-Dimer 4.97 H (<0.60) mg/L FEU Sodium (137-145) mmol/L Chloride (98-107) mmol/L Carbon Dioxide (22-30) mmol/L BUN (7-17) mg/dL Creatinine (0.52-1.04) mg/dL Glucose (74-99) mg/dL POC Glucose (mg/dL) 237 H (70-110) mg/dL Alkaline Phosphatase (38-126) U/L Albumin (3.5-5.0) g/dL Assessment and Plan Time with Patient: Greater than 30
--- NOTE | 2024-11-27 16:11 | CT ---
EXAMINATION TYPE: CT chest angio for PE CT DLP: 563.3 mGycm, Automated exposure control for dose reduction was used. DATE OF EXAM: 11/27/2024 3:59 PM COMPARISON: Chest radiograph 11/27/2024, CTA chest 08/18/2024, outside institution CTA chest 10/23/2024 CLINICAL INDICATION:Female, 69 years old with history of Elevated DDimer chest pain; Elevated D-dimer . History of breast cancer. TECHNIQUE/CONTRAST: CTA scan of the thorax is performed with IV Contrast, patient injected with 80 ml mL of Isovue 370, p ulmonary embolism protocol. MIP images are created and reviewed. FINDINGS: Pulmonary Artery: There is no evidence for a filling defect within the pulmonary vasculature to sugge st acute pulmonary embolism. The pulmonary artery is of normal size. Lungs/Pleura: Moderate left and small to moderate right pleural effusion with associated atelectasis. There is partial atelectasis of the lingula with near complete atelectasis of the left lower lobe. T he right pleural effusion is decreased from prior CT. Linear regions of atelectasis within the right upper lobe. No pneumothorax. No focal consolidation. No suspicious pulmonary mass. Airway: Large airways are patent. Heart: Cardiomegaly is demonstrated. No significant coronary artery calcifications. Vasculature: No evidence of aortic aneurysm. Minimal atherosclerotic calcification of the aorta and i ts branches. Mediastinum: No pathologically enlarged mediastinal or hilar lymph nodes identified. Musculoskeletal: No acute osseous abnormalities. Postsurgical changes from left shoulder arthroplasty . Diffuse worsening mixed sclerotic/lytic lesion appearance from prior CT. Multilevel degenerative di sc disease. Grade 1 anterolisthesis of T2 on T3. Anterior cervical fusion hardware. Grade I anterolis thesis of T10 on T11. Soft Tissues: Redemonstration of a 10.9 x 3.3 cm postmastectomy seroma versus breast reconstruction i mplants. Anasarca involving the abdominal soft tissues. Lower neck: No significant findings. Upper Abdomen: Gallbladder is surgically absent. Trace perihepatic ascites. IMPRESSION: 1. No evidence of pulmonary embolism. 2. Progression of diffuse osseous metastasis from prior CT 08/18/2024. 3. Moderate left and small to moderate right pleural effusions with associated atelectasis. [facility], , 11/27/2024 4:09 PM
[2024-11-27 16:55] LABS: Glucose,Whole Blood 176 mg/dL (70-110)
[2024-11-27 20:29] LABS: Glucose,Whole Blood 156 mg/dL (70-110)
[2024-11-27] MEDS: INSULIN GLARGINE (LANTUS) 100 UNIT/ML SYR SQ SCH (21:09)
[2024-11-28 07:21] LABS: Basophils # (A) 0.01 10*3/uL (0.00-0.10); Basophils % (A) 0.3 %; Eosinophils # (A) 0.07 10*3/uL (0.04-0.35); Eosinophils % (A) 1.9 %; HCT 27.2 % (37.2-46.3); HGB 8.2 g/dL (12.0-15.0); Lymphocytes # (A) 1.02 10*3/uL (0.90-5.00); Lymphocytes % (A) 27.4 %; MCHC 30.1 g/dL (32.0-37.0); MCV 92.8 fL (80.0-97.0); Mean Platelet Volume 10.8 fL (9.5-12.2); Monocytes # (A) 0.32 10*3/uL (0.20-1.00); Monocytes % (A) 8.6 %; Neutrophils # (A) 2.28 10*3/uL (1.80-7.70); Neutrophils % (A) 61.3 %; Platelet Count 132 10*3/uL (140-440); RBC 2.93 10*6/uL (4.10-5.20); RDW 17.2 % (11.5-14.5); WBC 3.72 10*3/uL (4.50-10.00)
[2024-11-28 08:08] LABS: Glucose,Whole Blood 82 mg/dL (70-110)
[2024-11-28 08:11] LABS: African American GFR (CKD) 58 (>60 ml/min/1.73 sqM); Anion Gap 6 mmol/L; Blood Urea Nitrogen 30 mg/dL (7-17); Calcium 8.9 mg/dL (8.4-10.2); Carbon Dioxide 34 mmol/L (22-30); Chloride 95 mmol/L (98-107); Glucose 64 mg/dL (74-99); Non-African American GFR(CKD) 51 (>60 ml/min/1.73 sqM); Potassium 4.1 mmol/L (3.5-5.1); Sodium 135 mmol/L (137-145)
[2024-11-28] MEDS: ONDANSETRON ODT 4 MG TAB PO PRN (08:23)
[2024-11-28 12:21] LABS: Glucose,Whole Blood 234 mg/dL (70-110)
--- NOTE | 2024-11-28 12:44 | P.PN ---
Subjective HISTORY OF PRESENT ILLNESS: This is a 69-year-old female previously seen by Dr. Gonzalez and has not followed up since 2019 with past medical history of hypertension, hyperlipidemia, diabetes, recently diagnosed with atrial fibrillation, COPD, breast cancer, mediastinal lymphadenopathy. We have been asked to evaluate the patient for atrial fibrillation with RVR. Patient states she initially presented to [facility] due to sharp pain in the right upper chest worse with deep breathing. She denies any cough or wheezing. No fevers. She states she sometimes has palpitations and that her heart feels like it is pounding out of her chest. She states she has been taking all of her medications as directed however, she has had episodes of vomiting. She then takes an antiemetic and then retakes her medications. She complains of feeling very weak. She has difficulty walking to the bathroom. No chest wall tenderness. No lower extremity edema. No PND. She states she quit smoking many years ago. Blood pressure 145/96, heart rate 90, pulse ox 90% on 3 L nasal cannula. Patient has been started on Cardizem drip 5 mg/h and is seen today in the emergency center waiting for a bed on the cardiac stepdown unit. Patient has a recent hospitalization in October and was seen by cardiology at that time for new onset of atrial fibrillation and was started on Eliquis. -EKG: Atrial fibrillation with ventricular rate of 115 bpm. -Chest x-ray: Bibasilar infiltrates left greater than right correlate for atelectasis versus pneumonia versus atypical pulmonary edema. -Laboratory studies: WBC 3.9, hemoglobin 8.6, sodium 135, potassium 4.2, BUN 32 creatinine 1.27. Troponin negative x 3. Alkaline phosphatase 521. proBNP 4300. -Home cardiac medications: Eliquis 5 mg twice daily, atorvastatin 10 mg daily, Lasix 20 mg twice daily, lisinopril 20 mg daily, Lopressor 100 mg twice daily. -Echocardiogram performed 10/24/2024 revealed EF of 55 to 60%, RVSP 35 mmHg, moderate mitral regurgitation, mild TR. 11/28/2024 Patient examined this morning in the emergency room. Patient currently denies chest pain or pressure. She reports improvement in her shortness of breath. She is complaining of pain in the right shoulder that is worse with deep inspiration. Bedside telemetry reveals atrial fibrillation with controlled ventricular rate. She remains on IV Lasix 40 mg every 12 hours. BUN 30. Creatinine 1.12. PHYSICAL EXAM: VITAL SIGNS: Reviewed. GENERAL: Well-developed in no acute distress. NECK: Supple. No JVD or thyromegaly LUNGS: Respirations even and unlabored. Lungs diminished at the bases HEART: Irregular rate and rhythm. S1 and S2 heard. EXTREMITIES: Normal range of motion. No clubbing or cyanosis. Peripheral pulses intact. 1+ lower extremity edema ASSESSMENT: Atypical chest pain, acute coronary syndrome ruled out Acute on chronic heart failure with preserved EF, 55 to 60% Paroxysmal atrial fibrillation with RVR Pancytopenia Hypertension Hyperlipidemia Diabetes mellitus type 2 COPD Breast cancer history Mediastinal lymphadenopathy PLAN: No need to repeat echocardiogram as this was performed in October 2024 Continue current cardiac medications including Eliquis, Lipitor, lisinopril, metoprolol Continue IV Lasix 40 mg every 12 hours Daily weights, accurate intake and output, and monitoring of kidney function Further recommendations pending patient course Nurse practitioner note has been reviewed by physician. Signing provider agrees with the documented findings, assessment, and plan of care documented by OLDER WORKER SPECIALIST as a scribe. Objective - Vital Signs Vital signs: Vital Signs Temp 97.0 F L 11/28/24 12:17 Pulse 101 H 11/28/24 12:17 Resp 18 11/28/24 12:17 BP 124/81 11/28/24 12:17 Pulse Ox 99 11/28/24 12:17 FiO2 Intake & Output 11/27/24 11/28/24 11/28/24 18:59 06:59 18:59 Output Total 1000 1100 450 Balance -1000 -1100 -450 Weight 86.183 kg Output: Urine 1000 1100 450 - Labs CBC & Chem 7: 11/28/24 06:44 11/28/24 06:44 Labs: Abnormal Lab Results - Last 24 Hours (Table) 11/27/24 11/27/24 11/27/24 Range/Units 12:43 12:59 16:52 WBC (4.50-10.00) 10*3/uL RBC (4.10-5.20) 10*6/uL Hgb (12.0-15.0) g/dL Hct (37.2-46.3) % MCHC (32.0-37.0) g/dL Plt Count (140-440) 10*3/uL D-Dimer 4.97 H (<0.60) mg/L FEU Sodium (137-145) mmol/L Chloride (98-107) mmol/L Carbon Dioxide (22-30) mmol/L BUN (7-17) mg/dL Creatinine (0.52-1.04) mg/dL Glucose (74-99) mg/dL POC Glucose (mg/dL) 237 H 176 H (70-110) mg/dL 11/27/24 11/28/24 11/28/24 Range/Units 20:27 06:44 06:44 WBC 3.72 L (4.50-10.00) 10*3/uL RBC 2.93 L (4.10-5.20) 10*6/uL Hgb 8.2 L (12.0-15.0) g/dL Hct 27.2 L (37.2-46.3) % MCHC 30.1 L (32.0-37.0) g/dL Plt Count 132 L (140-440) 10*3/uL D-Dimer (<0.60) mg/L FEU Sodium 135 L (137-145) mmol/L Chloride 95 L (98-107) mmol/L Carbon Dioxide 34 H (22-30) mmol/L BUN 30 H (7-17) mg/dL Creatinine 1.12 H (0.52-1.04) mg/dL Glucose 64 L (74-99) mg/dL POC Glucose (mg/dL) 156 H (70-110) mg/dL 11/28/24 Range/Units 12:19 WBC (4.50-10.00) 10*3/uL RBC (4.10-5.20) 10*6/uL Hgb (12.0-15.0) g/dL Hct (37.2-46.3) % MCHC (32.0-37.0) g/dL Plt Count (140-440) 10*3/uL D-Dimer (<0.60) mg/L FEU Sodium (137-145) mmol/L Chloride (98-107) mmol/L Carbon Dioxide (22-30) mmol/L BUN (7-17) mg/dL Creatinine (0.52-1.04) mg/dL Glucose (74-99) mg/dL POC Glucose (mg/dL) 234 H (70-110) mg/dL
[2024-11-28 13:46] LABS: LDL Cholesterol,Calculated 43.3 mg/dL (0.0-131.0)
[2024-11-28 16:23] LABS: Glucose,Whole Blood 130 mg/dL (70-110)
[2024-11-28 20:14] LABS: Glucose,Whole Blood 212 mg/dL (70-110)
[2024-11-29] MEDS: ONDANSETRON 4 MG/2 ML VIAL IVP PRN (01:07)
--- NOTE | 2024-11-29 05:28 | P.PN ---
Subjective Progress Note Date: 11/28/24 This is a 69-year-old female with medical history significant for asthma COPD, diabetes mellitus, hypertension, hyperlipidemia, acid reflux, migraine, right breast cancer with prior mastectomy. Patient also has history of atrial fibrillation and is anticoagulated with eliquis on an outpatient basis. Patient is also a former smoker. Presented to the hospital for a 2-day history of chest pain and shortness of breath. States that she began vomiting Saturday overnight denies having any diarrhea and denies any fever or chills. She was having some burning like sensation after the vomiting and then developed a right sided chest pain with radiation into the shoulder. She initially presented to [facility] troponin levels were negative there. Patient received Nitropaste morphine was brought down to the [facility] for further cardiac evaluation. Her proBNP is elevated at 4300 her troponin levels here have been negative x 3. Chest x-ray reveals pulmonary vascular congestion. Paitent does state she missed multiple doses of her blood thinner because of the vomiting and GI upset. She is also complaining of worsening lower extremity edema. Patient states the right leg is always weaker than the left due a knee injury. On presentation patient was in atrial fibrillation with RVR and started on IV cardizem. She is also started on IV lasix. Patient takes oral morphine scheduled for chronic pain however has required multiple doses of IV morphine for the right shoulder pain. At this time rating it 5/10. Feels sharp in nature. Cardiology to evaluate the patient. 11/28/2024 Patient evaluated in follow up remains in the ER pending bed on the medical floor. Feels significantly improved as compared to yesterday. The sharp pain in the right side of the chest is now intermittent however still presents with deep inspiration. Patient ahd CTA completed for elevated d dimer which was negative for PE did reveal progression of osseus metastatic disease for imaging in july of 2024. Patient states she had a bone biopsy done a week ago has an appt with Dr Yancey on Saturday at 4 pm. Oncology will be consulted. Cardiology following. Patient remains on IV lasix 40 mg Q12 hour. Sodium level 135, BUN 30, creatinine 1.12. Procalcitonin level 0.24. REVIEW OF SYSTEMS: CONSTITUTIONAL: No fever, no malaise, no fatigue. HEENT: No recent visual problems or hearing problems. Denied any sore throat. CARDIOVASCULAR: Reports right sided chest pain, orthopnea, PND, no palpitations, no syncope. PULMONARY: Reports shortness of breath worse with inspiration, no cough, no hemoptysis. GASTROINTESTINAL: No diarrhea, no nausea, no vomiting, no abdominal pain. NEUROLOGICAL: No headaches, no weakness, no numbness. Weakness worse in the right due to old knee injury. PHYSICAL EXAMINATION: GENERAL: The patient is alert and oriented x3, not in any acute distress. Well developed, well nourished. HEENT: Pupils are round and equally reacting to light. EOMI. No scleral icterus. No conjunctival pallor. Normocephalic, atraumatic. No pharyngeal erythema. No thyromegaly. CARDIOVASCULAR: S1 and S2 present. No murmurs, rubs, or gallops. PULMONARY: Chest is clear to auscultation, no wheezing or crackles. Diminished ABDOMEN: Soft, nontender, nondistended, normoactive bowel sounds. No palpable organomegaly. Poon catheter in place MUSCULOSKELETAL: No joint swelling or deformity. EXTREMITIES: No cyanosis, clubbing, has mild peripheral edema NEUROLOGICAL: Gross neurological examination did not reveal any focal deficits. Generalized weakness SKIN: No rashes. Assessment and plan Chest pain atypical rule out acute coronary syndrome Acute congestive heart failure diastolic dysfunction Atrial fibrillation with rapid ventricular rate recently diagnosed in October History of paroxysmal atrial fibrillation anticoag with Eliquis Asthma/COPD with no acute exacerbation Normocytic anemia Diabetes mellitus type 2 Hypertension Hyperlipidemia Gastroesophageal reflux disease History of breast cancer with right mastectomy maintained on on Arimidex Former smoker Obesity Plan IV cardizem off; rate controlled IV lasix 40 mg [id number] and strict intake and output monitoring Continue indwelling poon catheter Eliquis has been resumed Oncology has been consulted Continue oral morphine Protonix twice daily resume Continue Zofran as needed PT/OT consultation The impression and plan of care has been dictated by Claire Kay, Nurse Practitioner as directed. Dr. Joesph MD I have performed a history and physical examination and medical decision making of this patient, discussed the same with the dictator, and agree with the dictators assessment and plan as written, documented as a scribe. Based on total visit time, I have performed more than 50% of this visit. Objective - Vital Signs Vital signs: Vital Signs Temp 97.6 F 11/29/24 04:00 Pulse 103 H 11/29/24 04:00 Resp 20 11/29/24 04:00 BP 159/98 11/29/24 04:00 Pulse Ox 93 L 11/29/24 04:00 FiO2 Intake & Output 11/28/24 11/28/24 11/29/24 06:59 18:59 06:59 Output Total 1100 1320 1000 Balance -1100 -1320 -1000 Weight 107 kg Output: Urine 1100 1320 1000 Other: Voiding Method Indwelling Catheter Indwelling Catheter - Labs CBC & Chem 7: 11/28/24 06:44 11/28/24 06:44 Labs: Abnormal Lab Results - Last 24 Hours (Table) 11/28/24 11/28/24 11/28/24 Range/Units 06:44 06:44 12:19 WBC 3.72 L (4.50-10.00) 10*3/uL RBC 2.93 L (4.10-5.20) 10*6/uL Hgb 8.2 L (12.0-15.0) g/dL Hct 27.2 L (37.2-46.3) % MCHC 30.1 L (32.0-37.0) g/dL Plt Count 132 L (140-440) 10*3/uL Sodium 135 L (137-145) mmol/L Chloride 95 L (98-107) mmol/L Carbon Dioxide 34 H (22-30) mmol/L BUN 30 H (7-17) mg/dL Creatinine 1.12 H (0.52-1.04) mg/dL Glucose 64 L (74-99) mg/dL POC Glucose (mg/dL) 234 H (70-110) mg/dL 11/28/24 11/28/24 Range/Units 16:22 20:12 WBC (4.50-10.00) 10*3/uL RBC (4.10-5.20) 10*6/uL Hgb (12.0-15.0) g/dL Hct (37.2-46.3) % MCHC (32.0-37.0) g/dL Plt Count (140-440) 10*3/uL Sodium (137-145) mmol/L Chloride (98-107) mmol/L Carbon Dioxide (22-30) mmol/L BUN (7-17) mg/dL Creatinine (0.52-1.04) mg/dL Glucose (74-99) mg/dL POC Glucose (mg/dL) 130 H 212 H (70-110) mg/dL Assessment and Plan Time with Patient: Less than 30
[2024-11-29 06:14] LABS: Glucose,Whole Blood 135 mg/dL (70-110)
[2024-11-29 07:23] LABS: Basophils # (A) 0.02 10*3/uL (0.00-0.10); Basophils % (A) 0.5 %; Eosinophils # (A) 0.03 10*3/uL (0.04-0.35); Eosinophils % (A) 0.8 %; HCT 28.4 % (37.2-46.3); HGB 8.6 g/dL (12.0-15.0); Lymphocytes # (A) 0.99 10*3/uL (0.90-5.00); Lymphocytes % (A) 24.8 %; MCH 27.9 pg (27.0-32.0); MCHC 30.3 g/dL (32.0-37.0); MCV 92.2 fL (80.0-97.0); Mean Platelet Volume 10.6 fL (9.5-12.2); Monocytes # (A) 0.29 10*3/uL (0.20-1.00); Monocytes % (A) 7.3 %; Neutrophils # (A) 2.63 10*3/uL (1.80-7.70); Neutrophils % (A) 65.8 %; Platelet Count 134 10*3/uL (140-440); RBC 3.08 10*6/uL (4.10-5.20); RDW 16.7 % (11.5-14.5); WBC 3.99 10*3/uL (4.50-10.00)
[2024-11-29 07:50] LABS: African American GFR (CKD) 54 (>60 ml/min/1.73 sqM); Anion Gap 4 mmol/L; Blood Urea Nitrogen 28 mg/dL (7-17); Calcium 8.9 mg/dL (8.4-10.2); Carbon Dioxide 37 mmol/L (22-30); Chloride 94 mmol/L (98-107); Glucose 111 mg/dL (74-99); Non-African American GFR(CKD) 47 (>60 ml/min/1.73 sqM); Potassium 4.2 mmol/L (3.5-5.1); Sodium 135 mmol/L (137-145)
[2024-11-29 11:40] LABS: Glucose,Whole Blood 156 mg/dL (70-110)
--- NOTE | 2024-11-29 12:41 | P.PN ---
Subjective HISTORY OF PRESENT ILLNESS: This is a 69-year-old female previously seen by Dr. Gonzalez and has not followed up since 2019 with past medical history of hypertension, hyperlipidemia, diabetes, recently diagnosed with atrial fibrillation, COPD, breast cancer, mediastinal lymphadenopathy. We have been asked to evaluate the patient for atrial fibrillation with RVR. Patient states she initially presented to [facility] due to sharp pain in the right upper chest worse with deep breathing. She denies any cough or wheezing. No fevers. She states she sometimes has palpitations and that her heart feels like it is pounding out of her chest. She states she has been taking all of her medications as directed however, she has had episodes of vomiting. She then takes an antiemetic and then retakes her medications. She complains of feeling very weak. She has difficulty walking to the bathroom. No chest wall tenderness. No lower extremity edema. No PND. She states she quit smoking many years ago. Blood pressure 145/96, heart rate 90, pulse ox 90% on 3 L nasal cannula. Patient has been started on Cardizem drip 5 mg/h and is seen today in the emergency center waiting for a bed on the cardiac stepdown unit. Patient has a recent hospitalization in October and was seen by cardiology at that time for new onset of atrial fibrillation and was started on Eliquis. -EKG: Atrial fibrillation with ventricular rate of 115 bpm. -Chest x-ray: Bibasilar infiltrates left greater than right correlate for atelectasis versus pneumonia versus atypical pulmonary edema. -Laboratory studies: WBC 3.9, hemoglobin 8.6, sodium 135, potassium 4.2, BUN 32 creatinine 1.27. Troponin negative x 3. Alkaline phosphatase 521. proBNP 4300. -Home cardiac medications: Eliquis 5 mg twice daily, atorvastatin 10 mg daily, Lasix 20 mg twice daily, lisinopril 20 mg daily, Lopressor 100 mg twice daily. -Echocardiogram performed 10/24/2024 revealed EF of 55 to 60%, RVSP 35 mmHg, moderate mitral regurgitation, mild TR. 11/28/2024 Patient examined this morning in the emergency room. Patient currently denies chest pain or pressure. She reports improvement in her shortness of breath. She is complaining of pain in the right shoulder that is worse with deep inspiration. Bedside telemetry reveals atrial fibrillation with controlled ventricular rate. She remains on IV Lasix 40 mg every 12 hours. BUN 30. Creatinine 1.12. 11/29/2024 Patient examined this morning to bedside. Patient reports improvement in her shortness of breath. She denies any chest pain or pressure. She remains on IV Lasix 40 mg every 12 hours. BUN 28. Creatinine 1.20. Telemetry reveals atrial fibrillation with heart rate in the 90s. PHYSICAL EXAM: VITAL SIGNS: Reviewed. GENERAL: Well-developed in no acute distress. NECK: Supple. No JVD or thyromegaly LUNGS: Respirations even and unlabored. Lungs diminished at the bases HEART: Irregular rate and rhythm. S1 and S2 heard. EXTREMITIES: Normal range of motion. No clubbing or cyanosis. Peripheral pulses intact. 1+ lower extremity edema ASSESSMENT: Atypical chest pain, acute coronary syndrome ruled out Acute on chronic heart failure with preserved EF, 55 to 60% Paroxysmal atrial fibrillation with RVR, currently rate controlled Pancytopenia Hypertension Hyperlipidemia Diabetes mellitus type 2 COPD Breast cancer history Mediastinal lymphadenopathy PLAN: No need to repeat echocardiogram as this was performed in October 2024 Continue current cardiac medications including Eliquis, Lipitor, lisinopril, metoprolol Continue IV Lasix 40 mg every 12 hours. Possible transition to oral Lasix tomorrow. Daily weights, accurate intake and output, and monitoring of kidney function Continue telemetry monitoring Further recommendations pending patient course Nurse practitioner note has been reviewed by physician. Signing provider agrees with the documented findings, assessment, and plan of care documented by YARN DRY ROOM WORKER as a scribe. Objective - Vital Signs Vital signs: Vital Signs Temp 97.5 F L 11/29/24 08:40 Pulse 101 H 11/29/24 12:16 Resp 16 11/29/24 12:16 BP 127/78 11/29/24 08:40 Pulse Ox 96 11/29/24 09:04 FiO2 Intake & Output 11/28/24 11/29/24 11/29/24 18:59 06:59 18:59 Output Total 1320 2800 300 Balance -1320 -2800 -300 Weight 107 kg 104.5 kg Output: Urine 1320 2800 300 Uretheral (Berrios) 900 Other: Voiding Method Indwelling Catheter Indwelling Catheter # Voids 2 - Labs CBC & Chem 7: 11/29/24 06:50 11/29/24 06:50 Labs: Abnormal Lab Results - Last 24 Hours (Table) 11/28/24 11/28/24 11/29/24 Range/Units 16:22 20:12 06:12 WBC (4.50-10.00) 10*3/uL RBC (4.10-5.20) 10*6/uL Hgb (12.0-15.0) g/dL Hct (37.2-46.3) % MCHC (32.0-37.0) g/dL Plt Count (140-440) 10*3/uL Eosinophils # (0.04-0.35) 10*3/uL Sodium (137-145) mmol/L Chloride (98-107) mmol/L Carbon Dioxide (22-30) mmol/L BUN (7-17) mg/dL Creatinine (0.52-1.04) mg/dL Glucose (74-99) mg/dL POC Glucose (mg/dL) 130 H 212 H 135 H (70-110) mg/dL 11/29/24 11/29/24 11/29/24 Range/Units 06:50 06:50 11:38 WBC 3.99 L (4.50-10.00) 10*3/uL RBC 3.08 L (4.10-5.20) 10*6/uL Hgb 8.6 L (12.0-15.0) g/dL Hct 28.4 L (37.2-46.3) % MCHC 30.3 L (32.0-37.0) g/dL Plt Count 134 L (140-440) 10*3/uL Eosinophils # 0.03 L (0.04-0.35) 10*3/uL Sodium 135 L (137-145) mmol/L Chloride 94 L (98-107) mmol/L Carbon Dioxide 37 H (22-30) mmol/L BUN 28 H (7-17) mg/dL Creatinine 1.20 H (0.52-1.04) mg/dL Glucose 111 H (74-99) mg/dL POC Glucose (mg/dL) 156 H (70-110) mg/dL
[2024-11-29] MEDS: PROCHLORPERAZINE INJ 10 MG/2 ML VIAL IVP STA (13:14)
[2024-11-29] MEDS: MORPHINE SULFATE 2 MG/ML SYRINGE IVP STA (16:02)
[2024-11-29 16:12] LABS: Glucose,Whole Blood 137 mg/dL (70-110)
--- NOTE | 2024-11-29 16:59 | XR ---
EXAMINATION TYPE: XR knee limited RT DATE OF EXAM: 11/29/2024 4:46 PM COMPARISON: Previous radiograph 08/18/2024. CLINICAL INDICATION: Female, 69 years old with history of Knee pain/ fall; PHH, pain TECHNIQUE: XR knee limited RT views submitted.. FINDINGS: No acute fracture or dislocation. Radiocarpal plasty with appropriate alignment of tibial a nd femoral components. No periprosthetic loosening. Diffuse subcutaneous edema. Heterogeneous appeara nce of the osseous structures. IMPRESSION: No acute osseous abnormality. [facility], , 11/29/2024 4:56 PM
--- NOTE | 2024-11-29 17:38 | P.CONS ---
History of Present Illness - Reason for Consult Consult date: 11/29/24 breast cancer Requesting physician: Ashley Pink - Chief Complaint SOB/CP - History of Present Illness Mrs. Valentino is a female pt of Dr. Yancey who had an abnormal right breast screening mammogram in Dec, 2021. At that time she had right nipple retraction, present for a few months. Additional breast imaging revealed 2.0 x 2.4 x 2.0 cm mass at 3:00 in the right breast and an abnormal right axilla node. 01/02/2022 core biopsies of the right breast mass and right axilla were positive for G2, IDC, ER/NJ+ (91%,71%), HER2/CHRIS negative by FISH (2+ by IHC). 02/06/2022 she had right mastectomy and sentinel nodes biopsy, final pathology revealed grade 2, IDC, 3 cm, 1/1 node was positive for micromets. She had a OncotypeDx RS 21, unclear significance of adjuvant chemo benefit. She did complete radiation. She was recommended to start anastrozole, which she did initially. She ran out of Rx, did not refill in Jun 2022, was last seen in [facility] 12/2022 and stated she was going to resume. She was not seen in the office since then, and did not remember last time she took anastrazole but it has been a long time. Patient was then seen on consult in 2024 for concern of progression of breast cancer. CT chest/abdomen/pelvis in 08/2024,she also had a bone scan in July/2024 which diffuse osseous mets,with soft tissue lesion at T9,borderline mediastinal nodes and couple small lung nodule up to 1 cm. She reestablished care in clinic with Dr. Yancey on 10/05/24. It was discussed with patient the clinical and radiographic picture are highly suspicious for recurrent metastatic breast cancer. She was recommended referral to ortho/oncologist but she declined. I also recommended a biopsy of T9, which she was agreeable to. She had canceled scheduled biopsies due to hospitalization and then not feeling well, but did end up having a bone biopsy on 11/19/24 at [facility], biopsy is still pending. Patient was also instructed to continue on anastrazole, but today she states she is unsure if she has been taking it. It was felt her pancytopenia is likely secondary to diffuse bone mets. Patient presented emergency room for shortness of breath and chest pain. She was found to be in A-fib with RVR and started on Cardizem. Patient was transferred to [facility] for cardiac evaluation. Upon admit D-dimer elevated at 4.97, CTA chest negative for PE. Progression of diffuse osseous metastasis from prior CT on 08/18/2024. Moderate left and small to moderate right pleural effusions with associated atelectasis. Labs reviewed, WBC 3.99, hemoglobin 8.6, platelets 134,000. Creatinine 1.20, GFR 47. ALP elevated at 521. Calcium 8.9. At today's visit patient is reporting persisting right knee and right shoulder pain. Also reporting intermittent nausea vomiting over the last couple weeks. Review of Systems 10 point ROS is negative except as stated in the HPI Past Medical History Past Medical History: Asthma, Cancer, COPD, Diabetes Mellitus, GERD/Reflux, Hyperlipidemia, Hypertension, Musculoskeletal Disorder Additional Past Medical History / Comment(s): Migraine headaches. Hx kidney stone. Chronic back pain, numbness and tingling bilateral lower extremities. Right Breast cancer History of Any Multi-Drug Resistant Organisms: None Reported, MRSA Year Discovered:: 2011 MDRO Source:: UNK Past Surgical History: Appendectomy, Back Surgery, Breast Surgery, Ch olecystectomy, Joint Replacement, Orthopedic Surgery Additional Past Surgical History / Comment(s): Fusion w/ kane also back surgery 04/21/2019. Left Shoulder Replacement, Right knee replacement, plate in right wrist, left thumb joint repair, Right CTR, Right shoulder arthroscopy. micheal cataracts, LARYNGOSCOPY, November 2016 Cervical Plate, PAIN CLINIC PROCEDURES, right masectomy Past Anesthesia/Blood Transfusion Reactions: No Reported Reaction Past Psychological History: No Psychological Hx Reported Smoking Status: Former smoker Past Alcohol Use History: None Reported Additional Past Alcohol Use History / Comment(s): SMOKED 1PPD, STARTED SMOKING AGE 17, AND QUIT IN 1981. Past Drug Use History: None Reported - Past Family History Brother(s) Family Medical History: Cancer, Myocardial Infarction (NH) Father Family Medical History: Cancer Additional Family Medical History / Comment(s): throat, colon, liver, and brain cancer. Mother Family Medical History: Myocardial Infarction (NH) Additional Family Medical History / Comment(s): at 54 of NH. Medications and Allergies Home Medications Medication Instructions Recorded Confirmed Type Butalb/Acetaminophen/Caffeine 1 tab PO BID PRN 04/11/14 11/27/24 History [Fioricet 50-325-40 mg Tablet] Albuterol Sulfate [Albuterol 2 puff INHALATION RT-QID PRN 03/09/24 11/27/24 History Sulfate Hfa] Atorvastatin [Lipitor] 10 mg PO DAILY 03/09/24 11/27/24 History Baclofen [Lioresal] 20 mg PO BID 08/18/24 11/27/24 History Anastrozole [Arimidex] 1 mg PO DAILY tab 08/31/24 11/27/24 Rx Insulin Glargine,Hum.rec.anlog 30 units SQ HS #0 08/31/24 11/27/24 Rx [Lantus Solostar Pen] Pantoprazole [Protonix] 40 mg PO AC-BID #0 tab 08/31/24 11/27/24 Rx Albuterol Nebulized [Ventolin 2.5 mg INHALATION RT-QID 10/24/24 11/27/24 History Nebulized] Docusate [Colace] 100 mg PO DAILY 10/24/24 11/27/24 History Fluticasone Propion/Salmeterol 1 puff INHALATION RT-BID 10/24/24 11/27/24 History [Fluticasone-Salmeterol 250-50] Insulin Lispro [humaLOG Kwikpen] See Protocol SQ ACHS 10/24/24 11/27/24 History Morphine Sulfate ER [Ms Contin] 30 mg PO BID 10/24/24 11/27/24 History Morphine Sulfate Ir [MSIR] 15 mg PO Q4-6H PRN 10/24/24 11/27/24 History Ondansetron Odt [Zofran ODT] 4 mg PO BID PRN 10/24/24 11/27/24 History Apixaban [Eliquis] 5 mg PO BID 30 Days #60 tab 10/28/24 11/27/24 Rx Furosemide [Lasix] 20 mg PO BID@0900,1600 30 Days #60 10/28/24 11/27/24 Rx tab Metoprolol Tartrate [Lopressor] 100 mg PO BID 30 Days #120 tab 10/28/24 11/27/24 Rx lisinopriL [Zestril] 20 mg PO DAILY 30 Days #30 tab 10/28/24 11/27/24 Rx Allergies Allergy/AdvReac Type Severity Reaction Status Date / Time gabapentin AdvReac Confusion Verified 11/27/24 08:51 ibuprofen [From Motrin] AdvReac Abdominal Verified 11/27/24 08:51 Pain and vomiting pregabalin [From Lyrica] AdvReac Confusion Verified 11/27/24 08:51 Physical Exam Vitals: Vital Signs Temp Pulse Pulse Resp BP BP Pulse Ox 11/29/24 09:17 110 H 18 11/29/24 09:04 109 H 18 96 11/29/24 04:00 97.6 F 103 H 20 159/98 93 L 11/29/24 01:03 119 H 20 11/29/24 00:00 97.7 F 119 H 20 119/61 91 L 11/28/24 20:00 97.8 F 106 H 20 126/68 92 L 11/28/24 15:54 85 11/28/24 15:46 84 11/28/24 14:28 97.7 F 82 20 141/70 97 11/28/24 14:09 97.6 F 71 20 137/81 100 11/28/24 12:17 97.0 F L 101 H 18 124/81 99 11/28/24 11:36 80 11/28/24 11:21 86 11/28/24 10:38 90 18 99 Intake and Output 11/28/24 11/29/24 11/29/24 22:59 06:59 14:59 Output Total 100 2800 Balance -100 -2800 Output: Urine 100 2800 Uretheral (Berrios) 900 Other: Voiding Method Indwelling Catheter Indwelling Catheter Weight 104.5 kg - Constitutional General appearance: mild distress - EENT Eyes: anicteric sclerae, EOMI ENT: hearing grossly normal - Respiratory breathing is even and unlabored - Cardiovascular skin warm and dry - Gastrointestinal General gastrointestinal: soft, no tenderness - Musculoskeletal Musculoskeletal: generalized weakness - Psychiatric Psychiatric: A&O x's 3 Results CBC & Chem 7: 11/29/24 06:50 11/29/24 06:50 Labs: Abnormal Lab Results - Last 24 Hours (Table) 11/28/24 11/28/24 11/28/24 Range/Units 12:19 16:22 20:12 WBC (4.50-10.00) 10*3/uL RBC (4.10-5.20) 10*6/uL Hgb (12.0-15.0) g/dL Hct (37.2-46.3) % MCHC (32.0-37.0) g/dL Plt Count (140-440) 10*3/uL Eosinophils # (0.04-0.35) 10*3/uL Sodium (137-145) mmol/L Chloride (98-107) mmol/L Carbon Dioxide (22-30) mmol/L BUN (7-17) mg/dL Creatinine (0.52-1.04) mg/dL Glucose (74-99) mg/dL POC Glucose (mg/dL) 234 H 130 H 212 H (70-110) mg/dL 11/29/24 11/29/24 11/29/24 Range/Units 06:12 06:50 06:50 WBC 3.99 L (4.50-10.00) 10*3/uL RBC 3.08 L (4.10-5.20) 10*6/uL Hgb 8.6 L (12.0-15.0) g/dL Hct 28.4 L (37.2-46.3) % MCHC 30.3 L (32.0-37.0) g/dL Plt Count 134 L (140-440) 10*3/uL Eosinophils # 0.03 L (0.04-0.35) 10*3/uL Sodium 135 L (137-145) mmol/L Chloride 94 L (98-107) mmol/L Carbon Dioxide 37 H (22-30) mmol/L BUN 28 H (7-17) mg/dL Creatinine 1.20 H (0.52-1.04) mg/dL Glucose 111 H (74-99) mg/dL POC Glucose (mg/dL) 135 H (70-110) mg/dL Chest x-ray: report reviewed CT scan - chest: report reviewed Assessment and Plan (1) Atrial fibrillation with rapid ventricular response Current Visit: Yes Status: Acute Code(s): I48.91 - UNSPECIFIED ATRIAL FIBRILLATION SNOMED Code(s): 453956543550390 (2) Chest pain Current Visit: Yes Status: Acute Code(s): R07.9 - CHEST PAIN, UNSPECIFIED SNOMED Code(s): 01455180 (3) Breast cancer Current Visit: No Status: Acute Priority: High Code(s): C50.919 - MALIGNANT NEOPLASM OF UNSP SITE OF UNSPECIFIED FEMALE BREAST SNOMED Code(s): 343013664 Plan: A-fib with RVR: -Currently on lopressor. Anticoagulated with Eliquis -Defer management to cardiology team Hx ER/NJ positive, Her neg breast cancer, diagnosed 2019 -Patient had surgery, Oncotype score was 21, unclear if any significant benefit from receiving adjuvant chemotherapy so, pt was recommended radiation and AI. Patient completed radiation therapy. She has taken AI erratically over the last 4 years. -NM bone scan reported diffuse uptake identified within the axial and appendic ular skeleton. -CT AP reported diffuse osseous metastatic disease. No greater than 1 cm lymph nodes noted to suggest intra-abdominal metastatic disease. Subacute fracture of the left 11th rib. Nodular contour to liver, possible cirrhosis. -Outpt care has been delayed due to multiple cancellations. Patient did have bone biopsy at [facility] on 11/19, path still pending -Cont anastrazole daily for now -Continue morphine ER and IR for pain control. Zofran and compazine ordered -F/U with Dr Yancey scheduled on 11/30/24 Pancytopenia -CBC in Apr was normal, pancytopenia noted during admission in 08/2024 -Pancytopenia workup ordered during previous admit. No MGUS noted, iron studies were most consistent with inflammation. Jayess her pancytopenia is likely secondary to diffuse bone mets. -Continue to monitor CBC -Transfuse for hemoglobin less than 7 or if symptomatic. Plts near normal. WBC mildly decreased but stable
[2024-11-29 20:40] LABS: Glucose,Whole Blood 154 mg/dL (70-110)
[2024-11-29] MEDS: RASBURICASE 6 MG in SODIUM CHLORIDE 0.9% 46 ML IV ONE (21:26)
--- NOTE | 2024-11-29 22:08 | P.PN ---
Subjective Progress Note Date: 11/29/24 This is a 69-year-old female with medical history significant for asthma COPD, diabetes mellitus, hypertension, hyperlipidemia, acid reflux, migraine, right breast cancer with prior mastectomy. Patient also has history of atrial fibrillation and is anticoagulated with eliquis on an outpatient basis. Patient is also a former smoker. Presented to the hospital for a 2-day history of chest pain and shortness of breath. States that she began vomiting Saturday overnight denies having any diarrhea and denies any fever or chills. She was having some burning like sensation after the vomiting and then developed a right sided chest pain with radiation into the shoulder. She initially presented to [facility] troponin levels were negative there. Patient received Nitropaste morphine was brought down to the [facility] for further cardiac evaluation. Her proBNP is elevated at 4300 her troponin levels here have been negative x 3. Chest x-ray reveals pulmonary vascular congestion. Paitent does state she missed multiple doses of her blood thinner because of the vomiting and GI upset. She is also complaining of worsening lower extremity edema. Patient states the right leg is always weaker than the left due a knee injury. On presentation patient was in atrial fibrillation with RVR and started on IV cardizem. She is also started on IV lasix. Patient takes oral morphine scheduled for chronic pain however has required multiple doses of IV morphine for the right shoulder pain. At this time rating it 5/10. Feels sharp in nature. Cardiology to evaluate the patient. 11/28/2024 Patient evaluated in follow up remains in the ER pending bed on the medical floor. Feels significantly improved as compared to yesterday. The sharp pain in the right side of the chest is now intermittent however still presents with deep inspiration. Patient ahd CTA completed for elevated d dimer which was negative for PE did reveal progression of osseus metastatic disease for imaging in july of 2024. Patient states she had a bone biopsy done a week ago has an appt with Dr Yancey on Saturday at 4 pm. Oncology will be consulted. Cardiology following. Patient remains on IV lasix 40 mg Q12 hour. Sodium level 135, BUN 30, creatinine 1.12. Procalcitonin level 0.24. 11/29/2024 Patient evaluated in follow-up on the medical floor. Patient continues to report significant improvement since admission. Patient is not having any further reports of chest discomfort at this time only with deep inspiration. She is reporting some pain in her right shoulder blade states that it is uncontrolled with her current regimen of oral morphine. Will give an additional one-time dose of IV morphine. Patient has been having nausea and dry heaving today. Compazine has been added in addition to Zofran. She is currently pending evaluation by oncology. Will transition patient to oral Lasix. REVIEW OF SYSTEMS: CONSTITUTIONAL: No fever, no malaise, no fatigue. HEENT: No recent visual problems or hearing problems. Denied any sore throat. CARDIOVASCULAR: Reports right sided chest pain, orthopnea, PND, no palpitations, no syncope. PULMONARY: Reports shortness of breath worse with inspiration, no cough, no hemoptysis. GASTROINTESTINAL: No diarrhea, no nausea, no vomiting, no abdominal pain. NEUROLOGICAL: No headaches, no weakness, no numbness. Weakness worse in the right due to old knee injury. PHYSICAL EXAMINATION: GENERAL: The patient is alert and oriented x3, not in any acute distress. Well developed, well nourished. HEENT: Pupils are round and equally reacting to light. EOMI. No scleral icterus. No conjunctival pallor. Normocephalic, atraumatic. No pharyngeal erythema. No thyromegaly. CARDIOVASCULAR: S1 and S2 present. No murmurs, rubs, or gallops. PULMONARY: Chest is clear to auscultation, no wheezing or crackles. Diminished ABDOMEN: Soft, nontender, nondistended, normoactive bowel sounds. No palpable organomegaly. Poon catheter in place MUSCULOSKELETAL: No joint swelling or deformity. EXTREMITIES: No cyanosis, clubbing, has mild peripheral edema NEUROLOGICAL: Gross neurological examination did not reveal any focal deficits. Generalized weakness SKIN: No rashes. Assessment and plan Chest pain atypical rule out acute coronary syndrome Acute congestive heart failure diastolic dysfunction Atrial fibrillation with rapid ventricular rate recently diagnosed in October History of paroxysmal atrial fibrillation anticoag with Eliquis Asthma/COPD with no acute exacerbation Normocytic anemia Diabetes mellitus type 2 Hypertension Hyperlipidemia Gastroesophageal reflux disease History of breast cancer with right mastectomy maintained on on Arimidex Former smoker Obesity Plan IV cardizem off; rate controlled Transition to oral Lasix and continue strict intake and output monitoring Continue indwelling poon catheter Eliquis has been resumed Oncology has been consulted Continue oral morphine Protonix twice daily resume Continue Zofran as needed, add Compazine as needed PT/OT consultation The impression and plan of care has been dictated by Claire Kay, Nurse Practitioner as directed. Dr. Joesph MD I have performed a history and physical examination and medical decision making of this patient, discussed the same with the dictator, and agree with the d ictators assessment and plan as written, documented as a scribe. Based on total visit time, I have performed more than 50% of this visit. Objective - Vital Signs Vital signs: Vital Signs Temp 97.9 F 11/29/24 20:00 Pulse 95 11/29/24 20:00 Resp 20 11/29/24 20:00 BP 163/94 11/29/24 20:00 Pulse Ox 95 11/29/24 20:00 FiO2 Intake & Output 11/29/24 11/29/24 11/30/24 06:59 18:59 06:59 Output Total 2800 1100 Balance -2800 -1100 Weight 104.5 kg Output: Urine 2800 1100 Uretheral (Poon) 900 Other: Voiding Method Indwelling Catheter Indwelling Catheter Toilet Bedside Commode Bedpan # Voids 2 1 - Labs CBC & Chem 7: 11/29/24 06:50 11/29/24 06:50 Labs: Abnormal Lab Results - Last 24 Hours (Table) 11/29/24 11/29/24 11/29/24 Range/Units 06:12 06:50 06:50 WBC 3.99 L (4.50-10.00) 10*3/uL RBC 3.08 L (4.10-5.20) 10*6/uL Hgb 8.6 L (12.0-15.0) g/dL Hct 28.4 L (37.2-46.3) % MCHC 30.3 L (32.0-37.0) g/dL Plt Count 134 L (140-440) 10*3/uL Eosinophils # 0.03 L (0.04-0.35) 10*3/uL Sodium 135 L (137-145) mmol/L Chloride 94 L (98-107) mmol/L Carbon Dioxide 37 H (22-30) mmol/L BUN 28 H (7-17) mg/dL Creatinine 1.20 H (0.52-1.04) mg/dL Glucose 111 H (74-99) mg/dL POC Glucose (mg/dL) 135 H (70-110) mg/dL Uric Acid (3.7-7.4) mg/dL 11/29/24 11/29/24 11/29/24 Range/Units 06:50 11:38 16:11 WBC (4.50-10.00) 10*3/uL RBC (4.10-5.20) 10*6/uL Hgb (12.0-15.0) g/dL Hct (37.2-46.3) % MCHC (32.0-37.0) g/dL Plt Count (140-440) 10*3/uL Eosinophils # (0.04-0.35) 10*3/uL Sodium (137-145) mmol/L Chloride (98-107) mmol/L Carbon Dioxide (22-30) mmol/L BUN (7-17) mg/dL Creatinine (0.52-1.04) mg/dL Glucose (74-99) mg/dL POC Glucose (mg/dL) 156 H 137 H (70-110) mg/dL Uric Acid 13.7 H (3.7-7.4) mg/dL 11/29/24 Range/Units 20:39 WBC (4.50-10.00) 10*3/uL RBC (4.10-5.20) 10*6/uL Hgb (12.0-15.0) g/dL Hct (37.2-46.3) % MCHC (32.0-37.0) g/dL Plt Count (140-440) 10*3/uL Eosinophils # (0.04-0.35) 10*3/uL Sodium (137-145) mmol/L Chloride (98-107) mmol/L Carbon Dioxide (22-30) mmol/L BUN (7-17) mg/dL Creatinine (0.52-1.04) mg/dL Glucose (74-99) mg/dL POC Glucose (mg/dL) 154 H (70-110) mg/dL Uric Acid (3.7-7.4) mg/dL Assessment and Plan Time with Patient: Less than 30
[2024-11-29] MEDS: KETOROLAC 15 MG/ML 1 ML VIAL IVP STA (22:26)
[2024-11-30 05:57] LABS: Glucose,Whole Blood 97 mg/dL (70-110)
[2024-11-30 06:39] LABS: Basophils # (A) 0.01 10*3/uL (0.00-0.10); Basophils % (A) 0.2 %; Eosinophils # (A) 0.03 10*3/uL (0.04-0.35); Eosinophils % (A) 0.7 %; HCT 29.8 % (37.2-46.3); HGB 9.2 g/dL (12.0-15.0); Lymphocytes # (A) 0.95 10*3/uL (0.90-5.00); Lymphocytes % (A) 20.9 %; MCH 28.2 pg (27.0-32.0); MCHC 30.9 g/dL (32.0-37.0); MCV 91.4 fL (80.0-97.0); Monocytes # (A) 0.33 10*3/uL (0.20-1.00); Monocytes % (A) 7.3 %; Neutrophils % (A) 70.2 %; Platelet Count 136 10*3/uL (140-440); RBC 3.26 10*6/uL (4.10-5.20); RDW 16.7 % (11.5-14.5); WBC 4.55 10*3/uL (4.50-10.00)
[2024-11-30 07:06] LABS: African American GFR (CKD) 52 (>60 ml/min/1.73 sqM); Anion Gap 4 mmol/L; Blood Urea Nitrogen 26 mg/dL (7-17); Carbon Dioxide 38 mmol/L (22-30); Chloride 92 mmol/L (98-107); Glucose 91 mg/dL (74-99); Non-African American GFR(CKD) 45 (>60 ml/min/1.73 sqM); Phosphorus 4.5 mg/dL (2.5-4.5); Sodium 134 mmol/L (137-145)
[2024-11-30] MEDS: FUROSEMIDE 40 MG TAB PO SCH (08:51)
[2024-11-30 11:32] LABS: Glucose,Whole Blood 190 mg/dL (70-110)
[2024-11-30 11:58] LABS: Appearance,Urine Clear (Clear); Bacteria,Urine Rare /hpf; Bilirubin,Urine Negative (Negative); Blood,Urine Moderate (Negative); Color,Urine Yellow; Glucose,Urine (UA) Negative (Negative); Hyaline Casts,Urine 1 /lpf (0-2); Ketones,Urine Negative (Negative); Leukocyte Esterase,Urine Negative (Negative); Mucus,Urine Rare /hpf; Nitrite,Urine Negative (Negative); PH, Urine 5.5 (5.0-8.0); Protein,Urine Negative (Negative); RBC,Urine 25 /hpf (0-5); Squamous Epithelial Cell,Urine 3 /hpf (0-4); Urobilinogen,Urine <2.0 mg/dL (<2.0); WBC,Urine 4 /hpf (0-5)
--- NOTE | 2024-11-30 12:10 | P.NPCON ---
History of Present Illness - Reason for Consult acute renal failure - History of Present Illness Patient is a 69-year-old female with history of breast cancer, type 2 diabetes, COPD, hypertension and A-fib. She is admitted to the hospital with complaints of chest pain and shortness of breath. Patient did have vomiting as well. Patient was noted to be in A-fib with RVR and was maintained on Cardizem drip. Heart rate is now controlled with metoprolol. No previous history of kidney diseases Serum creatinine was 1.0 on admission and increased to 1.23 today. Patient states she has been avoiding. Received Toradol yesterday. Maintained on loop diuretics which she takes at home. No hypotension documented. Past Medical History Past Medical History: Asthma, Cancer, COPD, Diabetes Mellitus, GERD/Reflux, Hyperlipidemia, Hypertension, Musculoskeletal Disorder Additional Past Medical History / Comment(s): Migraine headaches. Hx kidney stone. Chronic back pain, numbness and tingling bilateral lower extremities. Right Breast cancer History of Any Multi-Drug Resistant Organisms: None Reported, MRSA Date of last positivie culture/infection: 2011 MDRO Source:: UNK Past Surgical History: Appendectomy, Back Surgery, Breast Surgery, C holecystectomy, Joint Replacement, Orthopedic Surgery Additional Past Surgical History / Comment(s): Fusion w/ kane also back surgery 04/21/2019. Left Shoulder Replacement, Right knee replacement, plate in right wrist, left thumb joint repair, Right CTR, Right shoulder arthroscopy. michael cataracts, LARYNGOSCOPY, November 2016 Cervical Plate, PAIN CLINIC PROCEDURES, right masectomy Past Anesthesia/Blood Transfusion Reactions: No Reported Reaction Past Psychological History: No Psychological Hx Reported Smoking Status: Former smoker Past Alcohol Use History: None Reported Additional Past Alcohol Use History / Comment(s): SMOKED 1PPD, STARTED SMOKING A GE 17, AND QUIT IN 1981. Past Drug Use History: None Reported - Past Family History Brother(s) Family Medical History: Cancer, Myocardial Infarction ([place]) Father Family Medical History: Cancer Additional Family Medical History / Comment(s): throat, colon, liver, and brain cancer. Mother Family Medical History: Myocardial Infarction ([place]) Additional Family Medical History / Comment(s): at 54 of [place]. Medications and Allergies Home Medications Medication Instructions Recorded Confirmed Type Butalb/Acetaminophen/Caffeine 1 tab PO BID PRN 04/11/14 11/27/24 History [Fioricet 50-325-40 mg Tablet] Albuterol Sulfate [Albuterol 2 puff INHALATION RT-QID PRN 03/09/24 11/27/24 History Sulfate Hfa] Atorvastatin [Lipitor] 10 mg PO DAILY 03/09/24 11/27/24 History Baclofen [Lioresal] 20 mg PO BID 08/18/24 11/27/24 History Anastrozole [Arimidex] 1 mg PO DAILY tab 08/31/24 11/27/24 Rx Insulin Glargine,Hum.rec.anlog 30 units SQ HS #0 08/31/24 11/27/24 Rx [Lantus Solostar Pen] Pantoprazole [Protonix] 40 mg PO AC-BID #0 tab 08/31/24 11/27/24 Rx Albuterol Nebulized [Ventolin 2.5 mg INHALATION RT-QID 10/24/24 11/27/24 History Nebulized] Docusate [Colace] 100 mg PO DAILY 10/24/24 11/27/24 History Fluticasone Propion/Salmeterol 1 puff INHALATION RT-BID 10/24/24 11/27/24 History [Fluticasone-Salmeterol 250-50] Insulin Lispro [humaLOG Kwikpen] See Protocol SQ ACHS 10/24/24 11/27/24 History Morphine Sulfate ER [Ms Contin] 30 mg PO BID 10/24/24 11/27/24 History Morphine Sulfate Ir [MSIR] 15 mg PO Q4-6H PRN 10/24/24 11/27/24 History Ondansetron Odt [Zofran ODT] 4 mg PO BID PRN 10/24/24 11/27/24 History Apixaban [Eliquis] 5 mg PO BID 30 Days #60 tab 10/28/24 11/27/24 Rx Furosemide [Lasix] 20 mg PO BID@0900,1600 30 Days #60 10/28/24 11/27/24 Rx tab Metoprolol Tartrate [Lopressor] 100 mg PO BID 30 Days #120 tab 10/28/24 11/27/24 Rx lisinopriL [Zestril] 20 mg PO DAILY 30 Days #30 tab 10/28/24 11/27/24 Rx Allergies Allergy/AdvReac Type Severity Reaction Status Date / Time gabapentin AdvReac Confusion Verified 11/27/24 08:51 ibuprofen [From Motrin] AdvReac Abdominal Verified 11/27/24 08:51 Pain and vomiting pregabalin [From Lyrica] AdvReac Confusion Verified 11/27/24 08:51 Physical Exam Vitals: Vital Signs Temp Pulse Pulse Resp BP Pulse Ox 11/30/24 11:33 97.9 F 111 H 16 143/79 100 11/30/24 09:28 96 11/30/24 09:18 100 96 11/30/24 08:38 97.8 F 97 14 127/81 96 11/30/24 04:09 97.6 F 87 18 149/88 98 11/30/24 01:08 106 H 11/29/24 23:22 106 H 20 128/68 94 L 11/29/24 20:00 97.9 F 95 20 163/94 95 11/29/24 16:10 98.3 F 92 18 154/75 94 L 11/29/24 15:46 100 18 11/29/24 15:40 103 H 18 11/29/24 12:16 101 H 16 11/29/24 12:08 110 H 18 Intake and Output 11/29/24 11/30/24 11/30/24 22:59 06:59 14:59 Intake Total 300 240 Output Total 500 400 350 Balance -500 -100 -110 Intake: Intake, IV Titration 300 Amount Rasburicase 6 mg In 100 Sodium Chloride 0.9% 46 ml @ 100 mls/hr IV ONCE ONE Rx#:[id number] Sodium Chloride 0.9% 1, 200 000 ml @ 20 mls/hr IV . Q24H [facility] Rx#:[id number] Oral 240 Output: Urine 500 400 350 Other: Voiding Method Toilet Toilet Bedside Commode Bedside Commode Bedpan Bedpan # Voids 1 3 Weight 104.5 kg Examination of the heart S1 and S2 Examination of the lungs bilateral breath sounds are heard Abdomen is soft nontender Examination of lower extremities shows edema 1+ bilaterally NIGHT STOCKER exam grossly intact Results - Lab Results Most recent lab results Calcium 9.0 mg/dL (8.4-10.2) 11/30/24 05:39 Phosphorus 4.5 mg/dL (2.5-4.5) 11/30/24 05:39 Magnesium 1.9 mg/dL (1.6-2.3) 11/27/24 00:45 11/30/24 05:39 11/30/24 05:39 Assessment and Plan Assessment: 1. Acute kidney injury multifactorial including hemodynamic instability with A- fib with RVR as well as NSAIDs. Rule out urine retention. UA shows moderate blood, no protein. Check ultrasound if renal function does not improve 2. A-fib with RVR now with controlled ventricular response 3. History of metastatic breast cancer status right postmastectomy and maintained on Arimidex 4. Anemia rule out iron deficiency 5. Volume overload, diuretics have been switched to oral Plan: May continue with current dose of Lasix Avoid NSAIDs Repeat labs in a.m. Check bladder scan rule out urine retention May continue with BENJAMIN inhibitor Avoid hypotension Thank you for the consultation. We will continue to follow the patient with you during her hospitalization.
--- NOTE | 2024-11-30 13:30 | P.PN ---
Subjective HISTORY OF PRESENT ILLNESS: This is a 69-year-old female previously seen by Dr. Gonzalez and has not followed up since 2019 with past medical history of hypertension, hyperlipidemia, diabetes, recently diagnosed with atrial fibrillation, COPD, breast cancer, mediastinal lymphadenopathy. We have been asked to evaluate the patient for atrial fibrillation with RVR. Patient states she initially presented to [facility] due to sharp pain in the right upper chest worse with deep breathing. She denies any cough or wheezing. No fevers. She states she sometimes has palpitations and that her heart feels like it is pounding out of her chest. She states she has been taking all of her medications as directed however, she has had episodes of vomiting. She then takes an antiemetic and then retakes her medications. She complains of feeling very weak. She has difficulty walking to the bathroom. No chest wall tenderness. No lower extremity edema. No PND. She states she quit smoking many years ago. Blood pressure 145/96, heart rate 90, pulse ox 90% on 3 L nasal cannula. Patient has been started on Cardizem drip 5 mg/h and is seen today in the emergency center waiting for a bed on the cardiac stepdown unit. Patient has a recent hospitalization in October and was seen by cardiology at that time for new onset of atrial fibrillation and was started on Eliquis. -EKG: Atrial fibrillation with ventricular rate of 115 bpm. -Chest x-ray: Bibasilar infiltrates left greater than right correlate for atelectasis versus pneumonia versus atypical pulmonary edema. -Laboratory studies: WBC 3.9, hemoglobin 8.6, sodium 135, potassium 4.2, BUN 32 creatinine 1.27. Troponin negative x 3. Alkaline phosphatase 521. proBNP 4300. -Home cardiac medications: Eliquis 5 mg twice daily, atorvastatin 10 mg daily, Lasix 20 mg twice daily, lisinopril 20 mg daily, Lopressor 100 mg twice daily. -Echocardiogram performed 10/24/2024 revealed EF of 55 to 60%, RVSP 35 mmHg, moderate mitral regurgitation, mild TR. 11/28/2024 Patient examined this morning in the emergency room. Patient currently denies chest pain or pressure. She reports improvement in her shortness of breath. She is complaining of pain in the right shoulder that is worse with deep inspiration. Bedside telemetry reveals atrial fibrillation with controlled ventricular rate. She remains on IV Lasix 40 mg every 12 hours. BUN 30. Creatinine 1.12. 11/29/2024 Patient examined this morning to bedside. Patient reports improvement in her shortness of breath. She denies any chest pain or pressure. She remains on IV Lasix 40 mg every 12 hours. BUN 28. Creatinine 1.20. Telemetry reveals atrial fibrillation with heart rate in the 90s. 11/30/2024 Patient examined this morning at the bedside. Patient currently denies chest pain or pressure. She denies shortness of breath. She reports chest pain with deep inspiration. She also reports discomfort to her right knee. BUN 26. Creatinine 1.23. Patient has been transition to oral Lasix per internal medicine. PHYSICAL EXAM: VITAL SIGNS: Reviewed. GENERAL: Well-developed in no acute distress. NECK: Supple. No JVD or thyromegaly LUNGS: Respirations even and unlabored. Lungs diminished at the bases HEART: Irregular rate and rhythm. S1 and S2 heard. EXTREMITIES: Normal range of motion. No clubbing or cyanosis. Peripheral pulses intact. 1+ lower extremity edema. Nilo wrap noted to right lower extremi ty. ASSESSMENT: Atypical chest pain, acute coronary syndrome ruled out Acute on chronic heart failure with preserved EF, 55 to 60% Paroxysmal atrial fibrillation with RVR, currently rate controlled Pancytopenia Hypertension Hyperlipidemia Diabetes mellitus type 2 COPD Breast cancer history Mediastinal lymphadenopathy PLAN: No need to repeat echocardiogram as this was performed in October 2024 Continue current cardiac medications including Eliquis, Lipitor, lisinopril, metoprolol, and Lasix Daily weights, accurate intake and output, and monitoring of kidney function Continue telemetry monitoring Patient is currently stable from a cardiac perspective We will sign off. Please reconsult if needed. Nurse practitioner note has been reviewed by physician. Signing provider agrees with the documented findings, assessment, and plan of care documented by [employer] ADMINISTRATOR as a scribe. Objective - Vital Signs Vital signs: Vital Signs Temp 97.8 F 11/30/24 08:38 Pulse 96 11/30/24 09:28 Resp 14 11/30/24 08:38 BP 127/81 11/30/24 08:38 Pulse Ox 96 11/30/24 09:18 FiO2 Intake & Output 11/29/24 11/30/24 11/30/24 18:59 06:59 18:59 Intake Total 300 240 Output Total 1100 400 100 Balance -1100 -100 140 Weight 104.5 kg Intake: Intake, IV Titration 300 Amount Rasburicase 6 mg In 100 Sodium Chloride 0.9% 46 ml @ 100 mls/hr IV ONCE ONE Rx#:[id number] Sodium Chloride 0.9% 1, 200 000 ml @ 20 mls/hr IV . Q24H [facility] Rx#:[id number] Oral 240 Output: Urine 1100 400 100 Other: Voiding Method Indwelling Catheter Toilet Bedside Commode Bedpan # Voids 2 3 - Labs CBC & Chem 7: 11/30/24 05:39 11/30/24 05:39 Labs: Abnormal Lab Results - Last 24 Hours (Table) 11/29/24 11/29/24 11/29/24 Range/Units 06:50 11:38 16:11 RBC (4.10-5.20) 10*6/uL Hgb (12.0-15.0) g/dL Hct (37.2-46.3) % MCHC (32.0-37.0) g/dL Plt Count (140-440) 10*3/uL Eosinophils # (0.04-0.35) 10*3/uL Sodium (137-145) mmol/L Chloride (98-107) mmol/L Carbon Dioxide (22-30) mmol/L BUN (7-17) mg/dL Creatinine (0.52-1.04) mg/dL POC Glucose (mg/dL) 156 H 137 H (70-110) mg/dL Uric Acid 13.7 H (3.7-7.4) mg/dL 11/29/24 11/30/24 11/30/24 Range/Units 20:39 05:39 05:39 RBC 3.26 L (4.10-5.20) 10*6/uL Hgb 9.2 L (12.0-15.0) g/dL Hct 29.8 L (37.2-46.3) % MCHC 30.9 L (32.0-37.0) g/dL Plt Count 136 L (140-440) 10*3/uL Eosinophils # 0.03 L (0.04-0.35) 10*3/uL Sodium 134 L (137-145) mmol/L Chloride 92 L (98-107) mmol/L Carbon Dioxide 38 H (22-30) mmol/L BUN 26 H (7-17) mg/dL Creatinine 1.23 H (0.52-1.04) mg/dL POC Glucose (mg/dL) 154 H (70-110) mg/dL Uric Acid (3.7-7.4) mg/dL
[2024-11-30 16:32] LABS: Glucose,Whole Blood 188 mg/dL (70-110)
[2024-11-30] MEDS: PROCHLORPERAZINE INJ 10 MG/2 ML VIAL IVP PRN (19:58)
--- NOTE | 2024-11-30 20:01 | P.PN ---
Subjective Progress Note Date: 11/30/24 Principal diagnosis: Chest pain, atrial fibrillation. History of breast cancer In follow-up today patient is reporting nausea and vomiting, happens when she moves, feels it in her stomach, she denies dizziness, chest pain, shortness of breath, headache or vision changes. She was supposed to see Dr. Yancey in the office today for her bone marrow biopsy results. Objective - Vital Signs Vital signs: Vital Signs Temp 97.9 F 11/30/24 11:33 Pulse 88 11/30/24 13:05 Resp 16 11/30/24 11:33 BP 143/79 11/30/24 11:33 Pulse Ox 100 11/30/24 11:33 FiO2 Intake & Output 11/29/24 11/30/24 11/30/24 18:59 06:59 18:59 Intake Total 300 240 Output Total 1100 400 350 Balance -1100 -100 -110 Weight 104.5 kg Intake: Intake, IV Titration 300 Amount Rasburicase 6 mg In 100 Sodium Chloride 0.9% 46 ml @ 100 mls/hr IV ONCE ONE Rx#:[id number] Sodium Chloride 0.9% 1, 200 000 ml @ 20 mls/hr IV . Q24H [facility] Rx#:[id number] Oral 240 Output: Urine 1100 400 350 Other: Voiding Method Indwelling Catheter Toilet Bedside Commode Bedpan # Voids 2 3 - Constitutional General appearance: Present: average body habitus, cooperative, no acute distress - EENT Eyes: Present: anicteric sclerae, EOMI ENT: Present: hearing grossly normal - Respiratory Details: resp unlabored at rest - Integumentary Integumentary: Present: normal - Neurologic Neurologic: Present: CNII-XII intact - Musculoskeletal Musculoskeletal: Present: generalized weakness - Psychiatric Psychiatric: Present: A&O x's 3, appropriate affect, intact judgment & insight - Labs CBC & Chem 7: 11/30/24 05:39 11/30/24 05:39 Labs: Abnormal Lab Results - Last 24 Hours (Table) 11/29/24 11/29/24 11/29/24 Range/Units 06:50 16:11 20:39 RBC (4.10-5.20) 10*6/uL Hgb (12.0-15.0) g/dL Hct (37.2-46.3) % MCHC (32.0-37.0) g/dL Plt Count (140-440) 10*3/uL Eosinophils # (0.04-0.35) 10*3/uL Sodium (137-145) mmol/L Chloride (98-107) mmol/L Carbon Dioxide (22-30) mmol/L BUN (7-17) mg/dL Creatinine (0.52-1.04) mg/dL POC Glucose (mg/dL) 137 H 154 H (70-110) mg/dL Uric Acid 13.7 H (3.7-7.4) mg/dL Urine Blood (Negative) Urine RBC (0-5) /hpf Urine Bacteria (None) /hpf Urine Mucus (None) /hpf 11/30/24 11/30/24 11/30/24 Range/Units 05:39 05:39 11:31 RBC 3.26 L (4.10-5.20) 10*6/uL Hgb 9.2 L (12.0-15.0) g/dL Hct 29.8 L (37.2-46.3) % MCHC 30.9 L (32.0-37.0) g/dL Plt Count 136 L (140-440) 10*3/uL Eosinophils # 0.03 L (0.04-0.35) 10*3/uL Sodium 134 L (137-145) mmol/L Chloride 92 L (98-107) mmol/L Carbon Dioxide 38 H (22-30) mmol/L BUN 26 H (7-17) mg/dL Creatinine 1.23 H (0.52-1.04) mg/dL POC Glucose (mg/dL) 190 H (70-110) mg/dL Uric Acid (3.7-7.4) mg/dL Urine Blood (Negative) Urine RBC (0-5) /hpf Urine Bacteria (None) /hpf Urine Mucus (None) /hpf 11/30/24 Range/Units 11:35 RBC (4.10-5.20) 10*6/uL Hgb (12.0-15.0) g/dL Hct (37.2-46.3) % MCHC (32.0-37.0) g/dL Plt Count (140-440) 10*3/uL Eosinophils # (0.04-0.35) 10*3/uL Sodium (137-145) mmol/L Chloride (98-107) mmol/L Carbon Dioxide (22-30) mmol/L BUN (7-17) mg/dL Creatinine (0.52-1.04) mg/dL POC Glucose (mg/dL) (70-110) mg/dL Uric Acid (3.7-7.4) mg/dL Urine Blood Moderate H (Negative) Urine RBC 25 H (0-5) /hpf Urine Bacteria Rare H (None) /hpf Urine Mucus Rare H (None) /hpf Assessment and Plan (1) Vomiting Current Visit: Yes Status: Acute Code(s): R11.10 - VOMITING, UNSPECIFIED SNOMED Code(s): 931780898 (2) Breast cancer Current Visit: No Status: Acute Priority: High Code(s): C50.919 - MALIGNANT NEOPLASM OF UNSP SITE OF UNSPECIFIED FEMALE BREAST SNOMED Code(s): 261875209 (3) Pancytopenia Current Visit: Yes Status: Acute Priority: High Code(s): D61.818 - OTHER PANCYTOPENIA SNOMED Code(s): 453010718 Plan: A-fib with RVR -Anticoagulated with Eliquis -Cardiology has seen the patient, defer management of the same. Hx ER/CO positive, Her neg breast cancer, diagnosed 2019 -Patient had surgery, Oncotype score was 21, unclear if any significant benefit from receiving adjuvant chemotherapy so, pt was recommended radiation and AI. Patient completed radiation therapy. She has has not taken aromatase inhibitor consistently over the last 4 years. -NM bone scan reported diffuse uptake identified within the axial and appendicular skeleton. -CT AP reported diffuse osseous metastatic disease. No greater than 1 cm lymph nodes noted to suggest intra-abdominal metastatic disease. Subacute fracture of the left 11th rib. Nodular contour to liver, possible cirrhosis. -Outpt care has been delayed due to multiple cancellations. Patient did have bone biopsy at [facility] on 11/19, path is being sent to the office. Pending review. Will discuss the results with the patient -Cont anastrazole daily for now -Continue morphine ER and IR for pain control. -Zofran and compazine ordered for persistent vomiting. MRI of the brain ordered to assess vomiting without nausea Pancytopenia -CBC in Sept was normal, pancytopenia noted during admission in 08/2024 -Pancytopenia workup ordered during previous admit. No MGUS noted, iron studies were most consistent with inflammation. [facility] pancytopenia concerning for marrow infiltration with metastatic disease from breast cancer. Pending review of bone marrow biopsy -Continue to monitor CBC -WBCs normal, platelets slightly low at 136,000. Hemoglobin 9.2. No transfusions today.Transfuse for hemoglobin less than 7 or if symptomatic. Doctor attests: I performed a history and physical examination of this patient, developed impression and plan of care. Discussed with dictator. I agree with dictators note, documented as a scribe.
[2024-11-30 20:20] LABS: Glucose,Whole Blood 196 mg/dL (70-110)
--- NOTE | 2024-11-30 22:22 | P.PN ---
Subjective Progress Note Date: 11/30/24 This is a 69-year-old female with medical history significant for asthma COPD, diabetes mellitus, hypertension, hyperlipidemia, acid reflux, migraine, right breast cancer with prior mastectomy. Patient also has history of atrial fibrillation and is anticoagulated with eliquis on an outpatient basis. Patient is also a former smoker. Presented to the hospital for a 2-day history of chest pain and shortness of breath. States that she began vomiting Saturday overnight denies having any diarrhea and denies any fever or chills. She was having some burning like sensation after the vomiting and then developed a right sided chest pain with radiation into the shoulder. She initially presented to [facility] troponin levels were negative there. Patient received Nitropaste morphine was brought down to the [facility] for further cardiac evaluation. Her proBNP is elevated at 4300 her troponin levels here have been negative x 3. Chest x-ray reveals pulmonary vascular congestion. Paitent does state she missed multiple doses of her blood thinner because of the vomiting and GI upset. She is also complaining of worsening lower extremity edema. Patient states the right leg is always weaker than the left due a knee injury. On presentation patient was in atrial fibrillation with RVR and started on IV cardizem. She is also started on IV lasix. Patient takes oral morphine scheduled for chronic pain however has required multiple doses of IV morphine for the right shoulder pain. At this time rating it 5/10. Feels sharp in nature. Cardiology to evaluate the patient. 11/28/2024 Patient evaluated in follow up remains in the ER pending bed on the medical floor. Feels significantly improved as compared to yesterday. The sharp pain in the right side of the chest is now intermittent however still presents with deep inspiration. Patient ahd CTA completed for elevated d dimer which was negative for PE did reveal progression of osseus metastatic disease for imaging in july of 2024. Patient states she had a bone biopsy done a week ago has an appt with Dr Yancey on Saturday at 4 pm. Oncology will be consulted. Cardiology following. Patient remains on IV lasix 40 mg Q12 hour. Sodium level 135, BUN 30, creatinine 1.12. Procalcitonin level 0.24. 11/29/2024 Patient evaluated in follow-up on the medical floor. Patient continues to report significant improvement since admission. Patient is not having any further reports of chest discomfort at this time only with deep inspiration. She is reporting some pain in her right shoulder blade states that it is uncontrolled with her current regimen of oral morphine. Will give an additional one-time dose of IV morphine. Patient has been having nausea and dry heaving today. Compazine has been added in addition to Zofran. She is currently pending evaluation by oncology. Will transition patient to oral Lasix. 11/30/2024 Patient seen today in follow-up in the medical floor. Patient continues to report episodes of emesis and using IV Zofran and IV Compazine alternating for this. She is tolerating regular diet though. Her bowels are moving. Patient does continue to report some right shoulder discomfort worse with deep jeremy athing. She is currently pending bone marrow biopsy report. Urinalysis is unremarkable. Patient's white blood cell count today is 4.55 hemoglobin 9.2, platelet count of 136. Her sodium level today is 134, BUN of 26 creatinine of 1.23. She is urinating adequately and indwelling Berrios catheter was removed over 24 hours ago. Patient did fall yesterday afternoon after receiving a 10 mg dose of IV Compazine when she got up to the bathroom she felt dizzy. She states that she fell on her right knee and was having pain x-ray was completed which reveals no acute changes. Patient states that she feels her knee was swollen and bruised however there is no obvious bruising noted on examination and no significant swelling noted. She has an Nilo wrap in place which she states does help the pain. Will continue to monitor and she may need orthopedic evaluation. Noted the patient does have a prior right total knee arthroplasty. REVIEW OF SYSTEMS: CONSTITUTIONAL: No fever, no malaise, no fatigue. HEENT: No recent visual problems or hearing problems. Denied any sore throat. CARDIOVASCULAR: Reports right sided chest pain, orthopnea, PND, no palpitations, no syncope. PULMONARY: Reports shortness of breath worse with inspiration, no cough, no hemoptysis. GASTROINTESTINAL: No diarrhea, no nausea, reports vomiting no abdominal pain. NEUROLOGICAL: No headaches, no weakness, no numbness. Weakness worse in the right due to old knee injury. PHYSICAL EXAMINATION: GENERAL: The patient is alert and oriented x3, not in any acute distress. Well developed, well nourished. HEENT: Pupils are round and equally reacting to light. EOMI. No scleral icterus. No conjunctival pallor. Normocephalic, atraumatic. No pharyngeal erythema. No thyromegaly. CARDIOVASCULAR: S1 and S2 present. No murmurs, rubs, or gallops. PULMONARY: Chest is clear to auscultation, no wheezing or crackles. Diminished ABDOMEN: Soft, nontender, nondistended, normoactive bowel sounds. No palpable organomegaly. MUSCULOSKELETAL: No joint swelling or deformity. EXTREMITIES: No cyanosis, clubbing, has mild peripheral edema NEUROLOGICAL: Gross neurological examination did not reveal any focal deficits. Generalized weakness SKIN: No rashes. Assessment and plan Chest pain atypical ruled out acute coronary syndrome chest pain is pleuritic in nature could be due to osseous metastatic disease Acute congestive heart failure diastolic dysfunction Atrial fibrillation with rapid ventricular rate recently diagnosed in October, currently rate controlled Fall with pain to the right knee x-ray negative for any acute fracture History of paroxysmal atrial fibrillation anticoag with Eliquis Asthma/COPD with no acute exacerbation Pancytopenia bone marrow biopsy currently pending reports Diabetes mellitus type 2 Hypertension Hyperlipidemia Gastroesophageal reflux disease History of breast cancer with right mastectomy maintained on on Arimidex Former smoker Obesity Plan IV cardizem off; rate controlled Transition to oral Lasix and continue strict intake and output monitoring Nephrology consultation Eliquis has been resumed Oncology has been consulted and awaiting bone marrow biopsy report Continue oral morphine twice daily scheduled as well as breakthrough immediate release morphine every 6 hours Protonix twice daily resume Continue Zofran as needed, add Compazine as needed PT/OT consultation The impression and plan of care has been dictated by Claire Kay, Nurse Practitioner as directed. Dr. Joesph MD I have performed a history and physical examination and medical decision making of this patient, discussed the same with the dictator, and agree with the dictators assessment and plan as written, documented as a scribe. Based on total visit time, I have performed more than 50% of this visit. Objective - Vital Signs Vital signs: Vital Signs Temp 97.9 F 11/30/24 19:49 Pulse 86 11/30/24 20:30 Resp 16 11/30/24 19:49 BP 155/78 11/30/24 19:49 Pulse Ox 97 11/30/24 19:49 FiO2 Intake & Output 11/30/24 11/30/24 12/01/24 06:59 18:59 06:59 Intake Total 300 240 10 Output Total 400 1425 Balance -100 -1185 10 Weight 104.5 kg Intake: IV 10 Invasive Line 1 10 Intake, IV Titration 300 Amount Rasburicase 6 mg In 100 Sodium Chloride 0.9% 46 ml @ 100 mls/hr IV ONCE ONE Rx#:[id number] Sodium Chloride 0.9% 1, 200 000 ml @ 20 mls/hr IV . Q24H [facility] Rx#:[id number] Oral 240 Output: Urine 400 1425 Other: Voiding Method Toilet Toilet Toilet Bedside Commode Bedside Commode Bedside Commode Bedpan Bedpan # Voids 3 - Labs CBC & Chem 7: 11/30/24 05:39 11/30/24 05:39 Labs: Abnormal Lab Results - Last 24 Hours (Table) 11/30/24 11/30/24 11/30/24 Range/Units 05:39 05:39 11:31 RBC 3.26 L (4.10-5.20) 10*6/uL Hgb 9.2 L (12.0-15.0) g/dL Hct 29.8 L (37.2-46.3) % MCHC 30.9 L (32.0-37.0) g/dL Plt Count 136 L (140-440) 10*3/uL Eosinophils # 0.03 L (0.04-0.35) 10*3/uL Sodium 134 L (137-145) mmol/L Chloride 92 L (98-107) mmol/L Carbon Dioxide 38 H (22-30) mmol/L BUN 26 H (7-17) mg/dL Creatinine 1.23 H (0.52-1.04) mg/dL POC Glucose (mg/dL) 190 H (70-110) mg/dL Urine Blood (Negative) Urine RBC (0-5) /hpf Urine Bacteria (None) /hpf Urine Mucus (None) /hpf 11/30/24 11/30/24 11/30/24 Range/Units 11:35 16:30 20:19 RBC (4.10-5.20) 10*6/uL Hgb (12.0-15.0) g/dL Hct (37.2-46.3) % MCHC (32.0-37.0) g/dL Plt Count (140-440) 10*3/uL Eosinophils # (0.04-0.35) 10*3/uL Sodium (137-145) mmol/L Chloride (98-107) mmol/L Carbon Dioxide (22-30) mmol/L BUN (7-17) mg/dL Creatinine (0.52-1.04) mg/dL POC Glucose (mg/dL) 188 H 196 H (70-110) mg/dL Urine Blood Moderate H (Negative) Urine RBC 25 H (0-5) /hpf Urine Bacteria Rare H (None) /hpf Urine Mucus Rare H (None) /hpf Assessment and Plan Time with Patient: Less than 30
[2024-11-30] MEDS: KETOROLAC 15 MG/ML 1 ML VIAL IVP PRN (23:29)
[2024-12-01] MEDS: HYDROmorphone 0.5 MG/0.5 ML SYRINGE IVP PRN (04:47)
[2024-12-01 06:20] LABS: Glucose,Whole Blood 121 mg/dL (70-110)
[2024-12-01 06:34] LABS: Glucose,Whole Blood 129 mg/dL (70-110)
[2024-12-01 11:08] LABS: African American GFR (CKD) 58 (>60 ml/min/1.73 sqM); Anion Gap 4 mmol/L; Blood Urea Nitrogen 25 mg/dL (7-17); Calcium 8.6 mg/dL (8.4-10.2); Carbon Dioxide 38 mmol/L (22-30); Chloride 92 mmol/L (98-107); Glucose 174 mg/dL (74-99); Non-African American GFR(CKD) 51 (>60 ml/min/1.73 sqM); Potassium 3.9 mmol/L (3.5-5.1); Sodium 134 mmol/L (137-145)
--- NOTE | 2024-12-01 11:51 | P.PN ---
Subjective Patient is seen for follow-up for acute kidney injury. Currently being diuresed Renal function has improved with creatinine down to 1.1. Complaining of nausea. Objective - Vital Signs Vital signs: Vital Signs Temp 98.3 F 12/01/24 08:00 Pulse 88 12/01/24 09:25 Resp 16 12/01/24 08:00 BP 152/76 12/01/24 08:00 Pulse Ox 94 L 12/01/24 09:13 FiO2 Intake & Output 11/30/24 12/01/24 12/01/24 18:59 06:59 18:59 Intake Total 240 10 118 Output Total 1425 Balance -1185 10 118 Weight 107.107 kg Intake: IV 10 Invasive Line 1 10 Oral 240 118 Output: Urine 1425 Other: Voiding Method Toilet Bedpan Bedside Commode External Catheter # Voids 1 - Exam Patient is awake, comfortable, no acute distress Alert oriented x 3 Examination of the heart S1 and S2 Examination of the lungs bilateral breath sounds are heard Abdomen is soft nontender Examination of lower extremities shows edema 1+ bilaterally [employer] exam grossly intact - Labs CBC & Chem 7: 11/30/24 05:39 12/01/24 10:26 Labs: Abnormal Lab Results - Last 24 Hours (Table) 11/30/24 11/30/24 11/30/24 Range/Units 11:35 16:30 20:19 Sodium (137-145) mmol/L Chloride (98-107) mmol/L Carbon Dioxide (22-30) mmol/L BUN (7-17) mg/dL Creatinine (0.52-1.04) mg/dL Glucose (74-99) mg/dL POC Glucose (mg/dL) 188 H 196 H (70-110) mg/dL Urine Blood Moderate H (Negative) Urine RBC 25 H (0-5) /hpf Urine Bacteria Rare H (None) /hpf Urine Mucus Rare H (None) /hpf 12/01/24 12/01/24 12/01/24 Range/Units 06:19 06:32 10:26 Sodium 134 L (137-145) mmol/L Chloride 92 L (98-107) mmol/L Carbon Dioxide 38 H (22-30) mmol/L BUN 25 H (7-17) mg/dL Creatinine 1.12 H (0.52-1.04) mg/dL Glucose 174 H (74-99) mg/dL POC Glucose (mg/dL) 121 H 129 H (70-110) mg/dL Urine Blood (Negative) Urine RBC (0-5) /hpf Urine Bacteria (None) /hpf Urine Mucus (None) /hpf Assessment and Plan Assessment: 1. Acute kidney injury multifactorial including hemodynamic instability with A- fib with RVR as well as NSAIDs. Rule out urine retention. UA shows moderate blood, no protein. Check ultrasound if renal function does not improve 2. A-fib with RVR now with controlled ventricular response 3. History of metastatic breast cancer status right postmastectomy and maintained on Arimidex 4. Anemia rule out iron deficiency 5. Volume overload, diuretics have been switched to oral Plan: May continue with current dose of Lasix Avoid NSAIDs due to volume overload and significant edema Repeat labs in a.m. May continue with BENJAMIN inhibitor
[2024-12-01 12:08] LABS: Glucose,Whole Blood 167 mg/dL (70-110)
--- NOTE | 2024-12-01 13:03 | P.PN ---
Subjective Progress Note Date: 12/01/24 Principal diagnosis: Chest pain, atrial fibrillation. History of breast cancer In follow-up today patient cont to report nausea and vomiting with any movement. Her knee is really bothering her. Objective - Vital Signs Vital signs: Vital Signs Temp 98.3 F 12/01/24 08:00 Pulse 84 12/01/24 12:18 Resp 16 12/01/24 12:17 BP 140/83 12/01/24 12:17 Pulse Ox 96 12/01/24 12:17 FiO2 Intake & Output 11/30/24 12/01/24 12/01/24 18:59 06:59 18:59 Intake Total 240 10 118 Output Total 1425 Balance -1185 10 118 Weight 107.107 kg Intake: IV 10 Invasive Line 1 10 Oral 240 118 Output: Urine 1425 Other: Voiding Method Toilet Bedpan Bedside Commode External Catheter # Voids 1 - Constitutional General appearance: Present: cooperative, mild distress, obese - EENT Eyes: Present: anicteric sclerae, EOMI ENT: Present: hearing grossly normal - Respiratory Details: resp unlabored at rest - Cardiovascular Details: skin warm, well perfused - Neurologic Neurologic: Present: CNII-XII intact - Musculoskeletal Musculoskeletal: Present: generalized weakness - Psychiatric Psychiatric: Present: A&O x's 3, appropriate affect, intact judgment & insight - Labs CBC & Chem 7: 11/30/24 05:39 12/01/24 10:26 Labs: Abnormal Lab Results - Last 24 Hours (Table) 11/30/24 11/30/24 12/01/24 Range/Units 16:30 20:19 06:19 Sodium (137-145) mmol/L Chloride (98-107) mmol/L Carbon Dioxide (22-30) mmol/L BUN (7-17) mg/dL Creatinine (0.52-1.04) mg/dL Glucose (74-99) mg/dL POC Glucose (mg/dL) 188 H 196 H 121 H (70-110) mg/dL 12/01/24 12/01/24 12/01/24 Range/Units 06:32 10:26 11:57 Sodium 134 L (137-145) mmol/L Chloride 92 L (98-107) mmol/L Carbon Dioxide 38 H (22-30) mmol/L BUN 25 H (7-17) mg/dL Creatinine 1.12 H (0.52-1.04) mg/dL Glucose 174 H (74-99) mg/dL POC Glucose (mg/dL) 129 H 167 H (70-110) mg/dL Assessment and Plan (1) Vomiting Current Visit: Yes Status: Acute Code(s): R11.10 - VOMITING, UNSPECIFIED S NOMED Code(s): 220413086 (2) Breast cancer Current Visit: No Status: Acute Priority: High Code(s): C50.919 - MALIGNANT NEOPLASM OF UNSP SITE OF UNSPECIFIED FEMALE BREAST SNOMED Code(s): 640953420 (3) Pancytopenia Current Visit: Yes Status: Acute Priority: High Code(s): D61.818 - OTHER PANCYTOPENIA SNOMED Code(s): 806922782 Plan: A-fib with RVR -Anticoagulated with Eliquis -Cardiology has seen the patient, defer management of the same. Hx ER/ME positive, Her neg breast cancer, diagnosed 2019 -Patient had surgery, Oncotype score was 21, unclear if any significant benefit from receiving adjuvant chemotherapy so, pt was recommended radiation and AI. Patient completed radiation therapy. She has has not taken aromatase inhibitor consistently over the last 4 years. -August 18, 2024, CT of the right knee reporting unusual pattern she is sclerosis and lucency about both distal femoral and proximal tibial components, similar to 03/10/2024 imaging. Areas of periprosthetic osseous scalloping/erosion both anteriorly and posteriorly at the femoral component is similar to prior study as well, etiology unclear. Sequela of chronic infection versus underlying osseous metastatic disease. There was an interval development of a nondisplaced periprosthetic fracture along the anterior aspect of the tibia. Nuclear medicine bone scan 08/21/2024 did show diffuse uptake within the appendicular skeleton corresponding to CT findings. Shoulder x-ray 09/06/2024, reversed left shoulder arthroplasty appeared intact. No dislocation. Degenerative changes. Knee x-ray 11/29/2024 reporting no acute fracture or dislocation. No periprosthetic loosening. Diffuse subcutaneous edema. CT AP reported diffuse osseous metastatic disease. No greater than 1 cm lymph nodes noted to suggest intra-abdominal metastatic disease. Subacute fracture of the left 11th rib. Nodular contour to liver, possible cirrhosis. -Outpt care has been delayed due to multiple cancellations. Patient did have bone biopsy at [facility] on 11/19, that was unfortunately positive for met breast carcinoma. Discussed findings with pt and on the phone. These findings represent stage IV disease, not curable but, non-chemo treatment options available. Will plan for a f/u with Dr. Yancey to review options as well as molecular testing results and to develop a plan of care. -Cont anastrazole daily for now Pain, related to malignancy -Discussed case with PharmD. PAUL dilaudid, continue morphine ER, MS IR freq increased. -Increased medications for prevention of narcotic induced constipation as pt has not had a BM since admit -Radiation Oncology consulted Intractable V with movement -Pending MRI of the brain -May have to consider EGD -Zofran modified to give TID and PRN. Compazine ordered PRN to alternate with zofran Pancytopenia -CBC in Apr was normal, pancytopenia noted during admission in 08/2024 -Pancytopenia workup ordered during previous admit. No MGUS noted, iron studies were most consistent with inflammation. [place] pancytopenia concerning for marrow infiltration with metastatic disease from breast cancer. Not a bone marrow biopsy, just bone biopsy, it was positive for metastatic breast carcinoma -CBC will cont to be monitored. No transfusions have been needed this hospital stay so far Doctor attests: I performed a history and physical examination of this patient, developed impression and plan of care. Discussed with dictator. I agree with dictators note, documented as a scribe.
--- NOTE | 2024-12-01 14:12 | P.PN ---
Subjective Progress Note Date: 12/01/24 This is a 69-year-old female with medical history significant for asthma COPD, diabetes mellitus, hypertension, hyperlipidemia, acid reflux, migraine, right breast cancer with prior mastectomy. Patient also has history of atrial fibrillation and is anticoagulated with eliquis on an outpatient basis. Patient is also a former smoker. Presented to the hospital for a 2-day history of chest pain and shortness of breath. States that she began vomiting Saturday overnight denies having any diarrhea and denies any fever or chills. She was having some burning like sensation after the vomiting and then developed a right sided chest pain with radiation into the shoulder. She initially presented to [facility] troponin levels were negative there. Patient received Nitropaste morphine was brought down to the [facility] for further cardiac evaluation. Her proBNP is elevated at 4300 her troponin levels here have been negative x 3. Chest x-ray reveals pulmonary vascular congestion. Paitent does state she missed multiple doses of her blood thinner because of the vomiting and GI upset. She is also complaining of worsening lower extremity edema. Patient states the right leg is always weaker than the left due a knee injury. On presentation patient was in atrial fibrillation with RVR and started on IV cardizem. She is also started on IV lasix. Patient takes oral morphine scheduled for chronic pain however has required multiple doses of IV morphine for the right shoulder pain. At this time rating it 5/10. Feels sharp in nature. Cardiology to evaluate the patient. 11/28/2024 Patient evaluated in follow up remains in the ER pending bed on the medical floor. Feels significantly improved as compared to yesterday. The sharp pain in the right side of the chest is now intermittent however still presents with deep inspiration. Patient ahd CTA completed for elevated d dimer which was negative for PE did reveal progression of osseus metastatic disease for imaging in july of 2024. Patient states she had a bone biopsy done a week ago has an appt with Dr Yancey on Saturday at 4 pm. Oncology will be consulted. Cardiology following. Patient remains on IV lasix 40 mg Q12 hour. Sodium level 135, BUN 30, creatinine 1.12. Procalcitonin level 0.24. 11/29/2024 Patient evaluated in follow-up on the medical floor. Patient continues to report significant improvement since admission. Patient is not having any further reports of chest discomfort at this time only with deep inspiration. She is reporting some pain in her right shoulder blade states that it is uncontrolled with her current regimen of oral morphine. Will give an additional one-time dose of IV morphine. Patient has been having nausea and dry heaving today. Compazine has been added in addition to Zofran. She is currently pending evaluation by oncology. Will transition patient to oral Lasix. 11/30/2024 Patient seen today in follow-up in the medical floor. Patient continues to report episodes of emesis and using IV Zofran and IV Compazine alternating for this. She is tolerating regular diet though. Her bowels are moving. Patient does continue to report some right shoulder discomfort worse with deep jeremy athing. She is currently pending bone marrow biopsy report. Urinalysis is unremarkable. Patient's white blood cell count today is 4.55 hemoglobin 9.2, platelet count of 136. Her sodium level today is 134, BUN of 26 creatinine of 1.23. She is urinating adequately and indwelling Berrios catheter was removed over 24 hours ago. Patient did fall yesterday afternoon after receiving a 10 mg dose of IV Compazine when she got up to the bathroom she felt dizzy. She states that she fell on her right knee and was having pain x-ray was completed which reveals no acute changes. Patient states that she feels her knee was swollen and bruised however there is no obvious bruising noted on examination and no significant swelling noted. She has an Nilo wrap in place which she states does help the pain. Will continue to monitor and she may need orthopedic evaluation. Noted the patient does have a prior right total knee arthroplasty. 12/01/2024 Patient is evaluated in follow-up in the medical floor. She continues to report nausea not having any further episodes of emesis and tolerating regular diet. Remains on antiemetic and patient will be going for a brain MRI today. Sodium level today stable at 134 BUN of 25 creatinine 1.12. Patient on oral Lasix 40 mg twice daily. REVIEW OF SYSTEMS: CONSTITUTIONAL: No fever, no malaise, no fatigue. HEENT: No recent visual problems or hearing problems. Denied any sore throat. CARDIOVASCULAR: Reports right sided chest pain, orthopnea, PND, no palpitations, no syncope. PULMONARY: Reports shortness of breath worse with inspiration, no cough, no hemoptysis. GASTROINTESTINAL: No diarrhea, no nausea, reports vomiting no abdominal pain. NEUROLOGICAL: No headaches, no weakness, no numbness. Weakness worse in the right due to old knee injury. PHYSICAL EXAMINATION: GENERAL: The patient is alert and oriented x3, not in any acute distress. Well developed, well nourished. HEENT: Pupils are round and equally reacting to light. EOMI. No scleral icterus. No conjunctival pallor. Normocephalic, atraumatic. No pharyngeal erythema. No thyromegaly. CARDIOVASCULAR: S1 and S2 present. No murmurs, rubs, or gallops. PULMONARY: Chest is clear to auscultation, no wheezing or crackles. Diminished ABDOMEN: Soft, nontender, nondistended, normoactive bowel sounds. No palpable organomegaly. MUSCULOSKELETAL: No joint swelling or deformity. EXTREMITIES: No cyanosis, clubbing, has mild peripheral edema NEUROLOGICAL: Gross neurological examination did not reveal any focal deficits. Generalized weakness SKIN: No rashes. Assessment and plan Chest pain atypical ruled out acute coronary syndrome chest pain is pleuritic in nature could be due to osseous metastatic disease Acute congestive heart failure diastolic dysfunction Atrial fibrillation with rapid ventricular rate recently diagnosed in October, currently rate controlled Fall with pain to the right knee x-ray negative for any acute fracture History of paroxysmal atrial fibrillation anticoag with Eliquis Asthma/COPD with no acute exacerbation Pancytopenia bone marrow biopsy currently pending reports Diabetes mellitus type 2 Hypertension Hyperlipidemia Gastroesophageal reflux disease History of breast cancer with right mastectomy maintained on on Arimidex Former smoker Obesity Plan IV cardizem off; rate controlled Transition to oral Lasix and continue strict intake and output monitoring Nephrology consultation Eliquis has been resumed Oncology has been consulted and awaiting bone marrow biopsy report Continue oral morphine twice daily scheduled as well as breakthrough immediate release morphine every 6 hours Protonix twice daily resume Continue Zofran as needed, add Compazine as needed PT/OT consultation The impression and plan of care has been dictated by Claire Kay, Nurse Practitioner as directed. Dr. Joesph MD I have performed a history and physical examination and medical decision making of this patient, discussed the same with the dictator, and agree with the dictators assessment and plan as written, documented as a scribe. Based on total visit time, I have performed more than 50% of this visit. Objective - Vital Signs Vital signs: Vital Signs Temp 98.3 F 12/01/24 08:00 Pulse 95 12/01/24 13:44 Resp 16 12/01/24 13:44 BP 140/83 12/01/24 12:17 Pulse Ox 96 12/01/24 12:17 FiO2 Intake & Output 11/30/24 12/01/24 12/01/24 18:59 06:59 18:59 Intake Total 240 10 118 Output Total 1425 Balance -1185 10 118 Weight 107.107 kg Intake: IV 10 Invasive Line 1 10 Oral 240 118 Output: Urine 1425 Other: Voiding Method Toilet Bedpan Bedpan Bedside Commode External Catheter External Catheter # Voids 1 - Labs CBC & Chem 7: 11/30/24 05:39 12/01/24 10:26 Labs: Abnormal Lab Results - Last 24 Hours (Table) 11/30/24 11/30/24 12/01/24 Range/Units 16:30 20:19 06:19 Sodium (137-145) mmol/L Chloride (98-107) mmol/L Carbon Dioxide (22-30) mmol/L BUN (7-17) mg/dL Creatinine (0.52-1.04) mg/dL Glucose (74-99) mg/dL POC Glucose (mg/dL) 188 H 196 H 121 H (70-110) mg/dL 12/01/24 12/01/24 12/01/24 Range/Units 06:32 10:26 11:57 Sodium 134 L (137-145) mmol/L Chloride 92 L (98-107) mmol/L Carbon Dioxide 38 H (22-30) mmol/L BUN 25 H (7-17) mg/dL Creatinine 1.12 H (0.52-1.04) mg/dL Glucose 174 H (74-99) mg/dL POC Glucose (mg/dL) 129 H 167 H (70-110) mg/dL Assessment and Plan Time with Patient: Less than 30
[2024-12-01 16:45] LABS: Glucose,Whole Blood 145 mg/dL (70-110)
[2024-12-01] MEDS: SENNOSIDES-DOCUSATE SODIUM 1 EACH TAB PO SCH (16:59)
[2024-12-01] MEDS: ONDANSETRON ODT 4 MG TAB PO SCH (16:59)
[2024-12-01] MEDS: MORPHINE SULFATE IR 15 MG TABLET PO PRN (18:50)
[2024-12-01 20:07] LABS: Glucose,Whole Blood 190 mg/dL (70-110)
[2024-12-01] MEDS: ONDANSETRON 4 MG/2 ML VIAL IVP PRN (20:46)
[2024-12-02 06:13] LABS: Glucose,Whole Blood 86 mg/dL (70-110)
[2024-12-02 07:13] LABS: African American GFR (CKD) 61 (>60 ml/min/1.73 sqM); Anion Gap 1 mmol/L; Blood Urea Nitrogen 22 mg/dL (7-17); Carbon Dioxide 40 mmol/L (22-30); Chloride 92 mmol/L (98-107); Glucose 76 mg/dL (74-99); Non-African American GFR(CKD) 53 (>60 ml/min/1.73 sqM); Potassium 3.8 mmol/L (3.5-5.1); Sodium 133 mmol/L (137-145)
--- NOTE | 2024-12-02 10:58 | MR ---
INDICATION: Patient age:Female; 69 years old; Reason for study: vomiting and dizziness; PHH. COMPARISON: CT brain 01/01/2023, 02/18/2014, CT brain C-spine 05/14/2014, MRI brain 02/09/2010, MRA and MR V brain 02/09/2010. TECHNIQUE: Multi planar, multi sequence imaging was performed through the brain. The patient was then given 10 cc of Gadobutrol intravenously and multi planar, T1 fat-saturation images were obtained. FINDINGS: The elizabeth-white junctions, ventricular system, basal cisterns appear unremarkable. Age-appropriate dif fuse mild cerebral volume loss. Diffusion-weighted imaging shows no evidence of restricted diffusion to suggest acute/subacute infarct. Intracranial arterial flow voids are maintained. Midline structure s show no abnormality. Regions of T2 hyperintense signal within the right frontal lobe and right ante rior temporal lobe with effacement of the peripheral sulci. This is consistent with vasogenic edema. No focal enhancing intra-axial lesions. There is adjacent abnormal enhancing dural thickening (series 701, image 77). Measures up to 1.3 cm in thickness along a gross length of 3 cm. Diffuse dural enhan cement identified. Few patchy foci of high T2/FLAIR signal intensity are seen within the supratentori al subcortical white matter. No midline shift. The susceptibility weighted images demonstrate foci of blooming artifact within this region of dural thickening consistent with hemosiderin deposition. Small focal regions of enhancement are identified within the calvarium which may represent metastasis . The globes are unremarkable. Right maxillary sinus 2.6 cm T2 hyperintense mucous retention cyst. Th e remaining paranasal sinuses are clear. IMPRESSION: 1. No evidence of acute/subacute infarct. 2. There are 2 focal regions of vasogenic edema within the right frontal lobe and right anterior tem poral lobe with adjacent abnormal enhancing focal dural thickening. This is on background diffuse dur al enhancement. Findings are highly concerning for dural metastasis in the setting of known osseous m etastasis. 3. Few small scattered enhancing osseous lesions within the calvarium concerning for possible metast asis. 4. Nonspecific mild white matter changes without enhancement, likely related to small vessel ischemi c disease. [facility], , 12/02/2024 10:55 AM
[2024-12-02] MEDS: DEXAMETHASONE SOD PHOSPHATE 4 MG/ML 1 ML VIAL IVP STA (11:46)
[2024-12-02 11:55] LABS: Glucose,Whole Blood 156 mg/dL (70-110)
--- NOTE | 2024-12-02 14:45 | P.PN ---
Subjective Progress Note Date: 12/02/24 This is a 69-year-old female with medical history significant for asthma COPD, diabetes mellitus, hypertension, hyperlipidemia, acid reflux, migraine, right breast cancer with prior mastectomy. Patient also has history of atrial fibrillation and is anticoagulated with eliquis on an outpatient basis. Patient is also a former smoker. Presented to the hospital for a 2-day history of chest pain and shortness of breath. States that she began vomiting Saturday overnight denies having any diarrhea and denies any fever or chills. She was having some burning like sensation after the vomiting and then developed a right sided chest pain with radiation into the shoulder. She initially presented to [facility] troponin levels were negative there. Patient received Nitropaste morphine was brought down to the [facility] for further cardiac evaluation. Her proBNP is elevated at 4300 her troponin levels here have been negative x 3. Chest x-ray reveals pulmonary vascular congestion. Paitent does state she missed multiple doses of her blood thinner because of the vomiting and GI upset. She is also complaining of worsening lower extremity edema. Patient states the right leg is always weaker than the left due a knee injury. On presentation patient was in atrial fibrillation with RVR and started on IV cardizem. She is also started on IV lasix. Patient takes oral morphine scheduled for chronic pain however has required multiple doses of IV morphine for the right shoulder pain. At this time rating it 5/10. Feels sharp in nature. Cardiology to evaluate the patient. 11/28/2024 Patient evaluated in follow up remains in the ER pending bed on the medical floor. Feels significantly improved as compared to yesterday. The sharp pain in the right side of the chest is now intermittent however still presents with deep inspiration. Patient ahd CTA completed for elevated d dimer which was negative for PE did reveal progression of osseus metastatic disease for imaging in july of 2024. Patient states she had a bone biopsy done a week ago has an appt with Dr Yancey on Saturday at 4 pm. Oncology will be consulted. Cardiology following. Patient remains on IV lasix 40 mg Q12 hour. Sodium level 135, BUN 30, creatinine 1.12. Procalcitonin level 0.24. 11/29/2024 Patient evaluated in follow-up on the medical floor. Patient continues to report significant improvement since admission. Patient is not having any further reports of chest discomfort at this time only with deep inspiration. She is reporting some pain in her right shoulder blade states that it is uncontrolled with her current regimen of oral morphine. Will give an additional one-time dose of IV morphine. Patient has been having nausea and dry heaving today. Compazine has been added in addition to Zofran. She is currently pending evaluation by oncology. Will transition patient to oral Lasix. 11/30/2024 Patient seen today in follow-up in the medical floor. Patient continues to report episodes of emesis and using IV Zofran and IV Compazine alternating for this. She is tolerating regular diet though. Her bowels are moving. Patient does continue to report some right shoulder discomfort worse with deep jeremy athing. She is currently pending bone marrow biopsy report. Urinalysis is unremarkable. Patient's white blood cell count today is 4.55 hemoglobin 9.2, platelet count of 136. Her sodium level today is 134, BUN of 26 creatinine of 1.23. She is urinating adequately and indwelling Berrios catheter was removed over 24 hours ago. Patient did fall yesterday afternoon after receiving a 10 mg dose of IV Compazine when she got up to the bathroom she felt dizzy. She states that she fell on her right knee and was having pain x-ray was completed which reveals no acute changes. Patient states that she feels her knee was swollen and bruised however there is no obvious bruising noted on examination and no significant swelling noted. She has an Nilo wrap in place which she states does help the pain. Will continue to monitor and she may need orthopedic evaluation. Noted the patient does have a prior right total knee arthroplasty. 12/01/2024 Patient is evaluated in follow-up in the medical floor. She continues to report nausea not having any further episodes of emesis and tolerating regular diet. Remains on antiemetic and patient will be going for a brain MRI today. Sodium level today stable at 134 BUN of 25 creatinine 1.12. Patient on oral Lasix 40 mg twice daily. 12/02/2024 Evaluated in follow-up on the medical floor. She continues to report significant pain to her right scapular area and worse with deep inspiration. This could be due to the bony metastatic disease. She also complains of right knee pain post fall has an Nilo wrap bandage in place however pain is not improving and we will ask orthopedic to evaluate this knee as she has had a total knee replacement done in the past on the right side. Brain MRI was completed today and was positive for 2 areas of vasogenic edema within the right foot normal enhancing focal dural thickening. This is on background diffuse dural enhancement. Findings are highly concerning for dural metastasis in the setting of known osseous metastasis. There are few small scattered enhancing osseous lesions within the calvarium concerning for possible metastasis. Nonspecific mild white matter changes without enhancement likely related to small vessel ischemic disease. Labs today reveal a sodium level of 133, potassium 3.8, BUN of 22 creatinine of 1.08. REVIEW OF SYSTEMS: CONSTITUTIONAL: No fever, no malaise, no fatigue. HEENT: No recent visual problems or hearing problems. Denied any sore throat. CARDIOVASCULAR: Reports right sided chest pain, orthopnea, PND, no palpitations, no syncope. PULMONARY: Reports shortness of breath worse with inspiration, no cough, no hemoptysis. GASTROINTESTINAL: No diarrhea, no nausea, reports vomiting no abdominal pain. NEUROLOGICAL: No headaches, no weakness, no numbness. Weakness worse in the right due to old knee injury. Reports right knee pain PHYSICAL EXAMINATION: GENERAL: The patient is alert and oriented x3, not in any acute distress. Well developed, well nourished. Obese HEENT: Pupils are round and equally reacting to light. EOMI. No scleral icterus. No conjunctival pallor. Normocephalic, atraumatic. No pharyngeal erythema. No thyromegaly. CARDIOVASCULAR: S1 and S2 present. No murmurs, rubs, or gallops. PULMONARY: Chest is clear to auscultation, no wheezing or crackles. Diminished ABDOMEN: Soft, nontender, nondistended, normoactive bowel sounds. No palpable organomegaly. MUSCULOSKELETAL: No joint swelling or deformity. EXTREMITIES: No cyanosis, clubbing, has mild peripheral edema NEUROLOGICAL: Gross neurological examination did not reveal any focal deficits. Generalized weakness SKIN: No rashes. Assessment and plan Chest pain atypical ruled out acute coronary syndrome chest pain is pleuritic in nature could be due to osseous metastatic disease Acute congestive heart failure diastolic dysfunction Atrial fibrillation with rapid ventricular rate recently diagnosed in October, currently rate controlled Fall with pain to the right knee x-ray negative for any acute fracture Vasogenic edema with concern for brain metastatic disease found on brain MRI History of paroxysmal atrial fibrillation anticoag with Eliquis Asthma/COPD with no acute exacerbation Pancytopenia bone marrow biopsy currently pending reports Diabetes mellitus type 2 Hypertension Hyperlipidemia Gastroesophageal reflux disease History of breast cancer with right mastectomy maintained on on Arimidex Former smoker Obesity Plan IV cardizem off; rate controlled Transition to oral Lasix and continue strict intake and output monitoring Nephrology consultation Eliquis has been resumed Oncology has been consulted and awaiting bone marrow biopsy report Patient has been started on IV Decadron Continue oral morphine twice daily scheduled as well as breakthrough immediate release morphine every 6 hours Pain management has been consulted Protonix twice daily resume Continue Zofran as needed, add Compazine as needed PT/OT consultation The impression and plan of care has been dictated by Claire Kay, Nurse Practitioner as directed. Dr. Joesph MD I have performed a history and physical examination and medical decision making of this patient, discussed the same with the dictator, and agree with the dictators assessment and plan as written, documented as a scribe. Based on total visit time, I have performed more than 50% of this visit. Objective - Vital Signs Vital signs: Vital Signs Temp 97.9 F 12/02/24 08:43 Pulse 96 12/02/24 12:30 Resp 16 12/02/24 11:51 BP 129/75 12/02/24 11:51 Pulse Ox 96 12/02/24 11:51 FiO2 Intake & Output 12/01/24 12/02/24 12/02/24 18:59 06:59 18:59 Intake Total 476 240 Output Total 1050 800 Balance -574 -800 240 Weight 107 kg Intake: Oral 476 240 Output: Urine 1050 800 Other: Voiding Method Bedpan Bedpan Bedpan External Catheter External Catheter External Catheter - Labs CBC & Chem 7: 11/30/24 05:39 12/02/24 05:35 Labs: Abnormal Lab Results - Last 24 Hours (Table) 12/01/24 12/01/24 12/02/24 Range/Units 16:42 20:06 05:35 Sodium 133 L (137-145) mmol/L Chloride 92 L (98-107) mmol/L Carbon Dioxide 40 H (22-30) mmol/L BUN 22 H (7-17) mg/dL Creatinine 1.08 H (0.52-1.04) mg/dL POC Glucose (mg/dL) 145 H 190 H (70-110) mg/dL 12/02/24 Range/Units 11:53 Sodium (137-145) mmol/L Chloride (98-107) mmol/L Carbon Dioxide (22-30) mmol/L BUN (7-17) mg/dL Creatinine (0.52-1.04) mg/dL POC Glucose (mg/dL) 156 H (70-110) mg/dL Assessment and Plan Time with Patient: Less than 30
[2024-12-02] MEDS: MORPHINE SULFATE IR 15 MG TABLET PO PRN (15:09)
--- NOTE | 2024-12-02 15:16 | P.CNOR ---
History of Present Illness - [facility] Consult date: 12/02/24 History of present illness: The patient is a 69-year-old female with multiple medical problems who was transferred to our facility from [facility] on 11/27/2024. The patient is presently being treated for metastatic breast cancer and multiple other medical issues. I have seen the patient in the past in regards to her right knee. Briefly the patient has a remote history of total knee replacement done by an outside surgeon who has since retired. The patient has had increasing right knee pain over the last year. At prior hospitalizations infection has been ruled out with aspiration and she was diagnosed with a stable periprosthetic pathologic tibia fracture. I recommended nonsurgical treatment due to the patient's poor overall state of health and metastatic cancer. At this hospitalization the patient again fell and has had increased pain in her right knee. At the time of my evaluation the patient is confused and somewhat drowsy but is complaining of pain in her right leg. Past Medical History Past Medical History: Asthma, Cancer, COPD, Diabetes Mellitus, GERD/Reflux, Hyp erlipidemia, Hypertension, Musculoskeletal Disorder Additional Past Medical History / Comment(s): Migraine headaches. Hx kidney stone. Chronic back pain, numbness and tingling bilateral lower extremities. Right Breast cancer History of Any Multi-Drug Resistant Organisms: None Reported, MRSA Year Discovered:: 2011 MDRO Source:: UNK Past Surgical History: Appendectomy, Back Surgery, Breast Surgery, Cholecystectomy, Joint Replacement, Orthopedic Surgery Additional Past Surgical History / Comment(s): Fusion w/ kane also back surgery 04/21/2019. Left Shoulder Replacement, Right knee replacement, plate in right wrist, left thumb joint repair, Right CTR, Right shoulder arthroscopy. micheal cataracts, LARYNGOSCOPY, November 2016 Cervical Plate, PAIN CLINIC PROCEDURES, right masectomy Past Anesthesia/Blood Transfusion Reactions: No Reported Reaction Past Psychological History: No Psychological Hx Reported Smoking Status: Former smoker Past Alcohol Use History: None Reported Additional Past Alcohol Use History / Comment(s): SMOKED 1PPD, STARTED SMOKING AGE 17, AND QUIT IN 1981. Past Drug Use History: None Reported - Past Family History Brother(s) Family Medical History: Cancer, Myocardial Infarction ([place]) Father Family Medical History: Cancer Additional Family Medical History / Comment(s): throat, colon, liver, and brain cancer. Mother Family Medical History: Myocardial Infarction ([place]) Additional Family Medical History / Comment(s): at 54 of [place]. Medications and Allergies Home Medications Medication Instructions Recorded Confirmed Type Butalb/Acetaminophen/Caffeine 1 tab PO BID PRN 04/11/14 11/27/24 History [Fioricet 50-325-40 mg Tablet] Albuterol Sulfate [Albuterol 2 puff INHALATION RT-QID PRN 03/09/24 11/27/24 History Sulfate Hfa] Atorvastatin [Lipitor] 10 mg PO DAILY 03/09/24 11/27/24 History Baclofen [Lioresal] 20 mg PO BID 08/18/24 11/27/24 History Anastrozole [Arimidex] 1 mg PO DAILY tab 08/31/24 11/27/24 Rx Insulin Glargine,Hum.rec.anlog 30 units SQ HS #0 08/31/24 11/27/24 Rx [Lantus Solostar Pen] Pantoprazole [Protonix] 40 mg PO AC-BID #0 tab 08/31/24 11/27/24 Rx Albuterol Nebulized [Ventolin 2.5 mg INHALATION RT-QID 10/24/24 11/27/24 History Nebulized] Docusate [Colace] 100 mg PO DAILY 10/24/24 11/27/24 History Fluticasone Propion/Salmeterol 1 puff INHALATION RT-BID 10/24/24 11/27/24 History [Fluticasone-Salmeterol 250-50] Insulin Lispro [humaLOG Kwikpen] See Protocol SQ ACHS 10/24/24 11/27/24 History Morphine Sulfate ER [Ms Contin] 30 mg PO BID 10/24/24 11/27/24 History Morphine Sulfate Ir [MSIR] 15 mg PO Q4-6H PRN 10/24/24 11/27/24 History Ondansetron Odt [Zofran ODT] 4 mg PO BID PRN 10/24/24 11/27/24 History Apixaban [Eliquis] 5 mg PO BID 30 Days #60 tab 10/28/24 11/27/24 Rx Furosemide [Lasix] 20 mg PO BID@0900,1600 30 Days #60 10/28/24 11/27/24 Rx tab Metoprolol Tartrate [Lopressor] 100 mg PO BID 30 Days #120 tab 10/28/24 11/27/24 Rx lisinopriL [Zestril] 20 mg PO DAILY 30 Days #30 tab 10/28/24 11/27/24 Rx Allergies Allergy/AdvReac Type Severity Reaction Status Date / Time gabapentin AdvReac Confusion Verified 11/27/24 08:51 ibuprofen [From Motrin] AdvReac Abdominal Verified 11/27/24 08:51 Pain and vomiting pregabalin [From Lyrica] AdvReac Confusion Verified 11/27/24 08:51 Physical Examination The patient is resting comfortably in bed. Upon entering the room she is drowsy but will open her eyes and respond to questions. She is in moderate distress secondary to pain. A focused exam of the right lower extremity was conducted. On inspection there is a well-healed anterior incision over the knee from prior total knee replacement. There is diffuse swelling and ecchymosis over the anterior tibia. Her thigh and calf are soft. She is able to actively plantarflex and dorsiflex her ankle and her toes. Results X-rays of the patient's right knee show a cementless total knee replacement and a minimally displaced pathologic proximal tibia fracture. Both the femur and proximal tibia have a mottled appearance consistent with metastatic cancer. - Labs Labs: Abnormal Lab Results - Last 24 Hours (Table) 12/01/24 12/01/24 12/02/24 Range/Units 16:42 20:06 05:35 Sodium 133 L (137-145) mmol/L Chloride 92 L (98-107) mmol/L Carbon Dioxide 40 H (22-30) mmol/L BUN 22 H (7-17) mg/dL Creatinine 1.08 H (0.52-1.04) mg/dL POC Glucose (mg/dL) 145 H 190 H (70-110) mg/dL 12/02/24 Range/Units 11:53 Sodium (137-145) mmol/L Chloride (98-107) mmol/L Carbon Dioxide (22-30) mmol/L BUN (7-17) mg/dL Creatinine (0.52-1.04) mg/dL POC Glucose (mg/dL) 156 H (70-110) mg/dL H & H 11/27/24 11/28/24 11/29/24 Range/Units 00:45 06:44 06:50 Hgb 8.6 L 8.2 L 8.6 L (12.0-15.0) g/dL Hct 27.3 L 27.2 L 28.4 L (37.2-46.3) % 11/30/24 Range/Units 05:39 Hgb 9.2 L (12.0-15.0) g/dL Hct 29.8 L (37.2-46.3) % Result Diagrams: 11/30/24 05:39 12/02/24 05:35 Assessment and Plan Assessment: Pathologic proximal periprosthetic tibia fracture Plan: The patient has a known history of metastatic breast cancer and a previously diagnosed pathologic periprosthetic proximal tibia fracture diagnosed at prior hospitalizations. Infection in her knee has been ruled out by aspiration. Her x-rays taken at this hospitalization show minimal displacement but there has been interval change in her x-rays with her most recent x-rays showing mottled appearance of the tibia and distal femur concerning for metastatic breast cancer. Her implants appear stable and there does not appear to be any grossly displaced fractures. Given her poor overall state of health and minimal displacement I would recommend protected weightbearing of the right leg in a brace. I also ordered x-rays of the entire tibia. We will place a written prescription on her chart for a hinged knee brace that should be worn when up but can be taken off for hygiene and when resting. We discussed that she is not a surgical candidate at this time and will likely need pain control per the primary service. She briefly mentioned she understands that she has advanced, metastatic breast cancer.
--- NOTE | 2024-12-02 15:43 | XR ---
EXAMINATION TYPE: XR tibia fibula RT DATE OF EXAM: 12/02/2024 3:34 PM INDICATION: Patient age:Female; 69 years old; Reason for study: pain, pathologic tibia fracture; PHH. pain COMPARISON: Nuclear medicine bone scan 08/21/2024, CT right knee 08/18/2024, right tibia/fibular radiog raph 08/18/2024, right femur radiograph 08/18/2024, right knee radiographs 11/29/2024, 05/02/2024, 2023 TECHNIQUE: The right tibia/fibula was examined in AP and lateral projections. FINDINGS: Postsurgical changes from right knee arthroplasty. Hardware appears intact with appropriate alignment. Diffuse subcutaneous edema of the right lower extremity redemonstrated. No acute fracture or dislocation. Previously seen periprosthetic fracture involving the tibial plateau is not well vis ualized on today's exam. There is again heterogenous permeative lucent appearance of the proximal tib ia. IMPRESSION: 1. No evidence of acute fracture or dislocation. Previously seen periprosthetic fracture involving t he tibial plateau is not well visualized on today's exam. 2. Heterogenous permeative lucent appearance of the proximal tibia again. This is again nonspecific with etiologies including sequelae of chronic infection versus osseous metastasis versus other etiolo gies. 3. Post surgical changes from right knee arthroplasty. Hardware appears intact. [facility], , 12/02/2024 3:40 PM
--- NOTE | 2024-12-02 16:26 | P.PAINPG ---
Objective - Vital Signs Vital signs: Vital Signs Temp 97.9 F 12/02/24 08:43 Pulse 111 H 12/02/24 15:12 Resp 16 12/02/24 15:12 BP 157/92 12/02/24 15:12 Pulse Ox 96 12/02/24 15:12 FiO2 Intake & Output 12/01/24 12/02/24 12/02/24 18:59 06:59 18:59 Intake Total 476 480 Output Total 1050 800 850 Balance -574 -800 -370 Weight 107 kg Intake: Oral 476 480 Output: Urine 1050 800 850 Other: Voiding Method Bedpan Bedpan Bedpan External Catheter External Catheter External Catheter - Labs CBC & Chem 7: 11/30/24 05:39 12/02/24 05:35 Labs: Abnormal Lab Results - Last 24 Hours (Table) 12/01/24 12/01/24 12/02/24 Range/Units 16:42 20:06 05:35 Sodium 133 L (137-145) mmol/L Chloride 92 L (98-107) mmol/L Carbon Dioxide 40 H (22-30) mmol/L BUN 22 H (7-17) mg/dL Creatinine 1.08 H (0.52-1.04) mg/dL POC Glucose (mg/dL) 145 H 190 H (70-110) mg/dL 12/02/24 Range/Units 11:53 Sodium (137-145) mmol/L Chloride (98-107) mmol/L Carbon Dioxide (22-30) mmol/L BUN (7-17) mg/dL Creatinine (0.52-1.04) mg/dL POC Glucose (mg/dL) 156 H (70-110) mg/dL PQRS Measure Charge Sheet Comment: HISTORY OF PRESENT ILLNESS: A 69 yr old inpatient female as a referral from Dr Pink presents today w severe and chronic generalized bone pain for evaluation. Pt states pain level is provoked at 10 /10 in intensity, constant, located mostly in the lumbar spine and R knee, throbbing in character without shooting pain. Pain is provoked by any movement. Pt prefers to stay still not to provoke pain. Dilaudid IV was discontinued and replaced with MS 15mg IVP which was insufficient to treat pain, so MS was increased to 30mg PO q4h prn. Toradol was discontinued due to possible renal issues. Pain is alleviated by medications (MS 30mg PO q4h prn, Baclofen 20mg BID), repositioning and rest. Alkaline phosphatase is elevated, and may be suggestive of bony metastasis. Pt states she has daily nausea and vomiting, and had not had a bowel movement since her transfer here 11/27/24 but she also refused Milk of Magnesia until it was provided to her in a chocolate shake. Pt became agreeable to take milk of magnesia in orange juice. PMH: OA, Asthma, Breast CA, COPD, IDDM II, GERD, Hyperlipidemia, HTN, Nephrolithiasis PSH: Appendectomy, Lumbar Fusion w Terry (2019), Cervical Plate (2017), R Masectomy, Cholecystectomy, L Shoulder Replacement, R Shoulder Arthroscopy, R Knee Replacement, R Wrist Surgery w Plate, L Thumb Repair, Laryngoscopy, BL Cataract Extractions SH: Former tobacco user, No ETOH use, No illicit drug use FH: Mo- [place]. Fa- CA. Bro- CA, [place]. All: See list Meds: See list REVIEW OF ORGAN SYSTEMS: CONSTITUTIONAL: No fevers or chills. No recent weight loss. NEUROLOGICAL: + numbness and tingling along the distal extremities. No seizure disorders or headaches. MUSCULOSKELETAL: + pain PSYCHIATRIC: Denies current depression or suicidal though ts. Physical Examinations : Constitutional : Cooperative , not in acute distress . Neurologic : Cranial nerve II to XII intact. No focal neurological deficits. Psychiatric : alert & oriented x 3. Matching mood & appropriate affect. Judgment & insight intact. Musculoskeletal : Cervical Spine Motor strength in the deltoid and biceps: Normal right side. Normal Left side Motor strength biceps and the wrist extensors: Normal right side . Normal left side Motor strength in the triceps muscle: Normal right side. Normal left side Deep tendon reflexes: Normal at the biceps. Normal at Brachioradialis. Normal at triceps Vertebral body tenderness to deep palpation over Cervical facet loading test: positive bilaterally Spurling test: positive bilaterally Neck distraction test: positive bilaterally Trena sign: positive bilaterally Lumbar spine +R knee incisional scar intact Motor strength lower extremities ,thigh and legs 5/5 Right side , 5/5 Left side Deep tendon reflexes : Normal Knee Jerk. Normal Ankle Jerk Vertebral body tenderness over Delaney Test positive Lumbar facet Loading Test: positive Right / positive Left Range of motion of the lumbar spine Flexion 30 degrees, extension 10 degrees Straight Leg Raise test: Left/ Right positive at degrees Tiny test: positive right / positive left. Severe tenderness over the Sacroiliac joint on the Right / Left sides Gaenslen test: positive bilaterally Seated flexion test: positive bilaterally. Sacral spine : Severe tenderness over the Sacroiliac joint: right side / left side Range of motion: Flexion of the lumbar spine <60 degrees Range of motion: Extension of the lumbar spine <20 degrees Gaenslen's Test positive Tiny test: positive right side / left side Thigh Thrust Test Sacral Thrust Test Imaging: X ray R tib/ fib from 12/02/24 reviewed Assessment/ Plan : R knee post surgical changes, possible osseous mets vs other etiologies Recommendation of medication management. Continue MS 30mg PO q4h prn. Add L idoderm 4% daily on AA. No NSAIDs or VANEGAS-2I due to possible kidney injury. Pt is agreeable to take the ordered milk of magnesia w orange juice. All questions answered. I have spent greater than 30 minutes on patient care today. Dr Dougherty was available by phone for the evaluation of this patient. The time was used to review the medical records including relevant urine studies and Prescription his tory (MAPs), review of the available imaging, evaluation and examination of the patient, coordination of care with the medical staff and if applicable referring physicians, as well as creation of the medical record - Pain Location Right Knee Non-Pharmacological Interventions: Darkened Room, Position/Reposition, Relaxation Technique Pharmacological Interventions: Discuss Pain Med Options PQRS Narrative: Smoking Status Former smoker Narcotic Agreement Date Signed 09/09/24 Blood Pressure [Left Arm] 157/92 Blood Pressure 137/81 Pain Intensity [Right Knee] 10 Pain Intensity [None] 0 Pain Intensity 10 Pain Scale Used Numeric (1 - 10) Scale Used see mar Hx Alcohol Use (MH) No Home Medications: Ambulatory Orders Butalb/Acetaminophen/Caffeine [Fioricet 50-325-40 mg Tablet] 1 tab PO BID PRN 04/11/14 Albuterol Sulfate [Albuterol Sulfate Hfa] 2 puff INHALATION RT-QID PRN 03/09/24 Atorvastatin [Lipitor] 10 mg PO DAILY 03/09/24 Baclofen [Lioresal] 20 mg PO BID 08/18/24 Anastrozole [Arimidex] 1 mg PO DAILY tab 01/13/25 Insulin Glargine,Hum.rec.anlog [Lantus Solostar Pen] 30 units SQ HS #0 08/31/24 Pantoprazole [Protonix] 40 mg PO AC-BID #0 tab 08/31/24 Albuterol Nebulized [Ventolin Nebulized] 2.5 mg INHALATION RT-QID 10/24/24 Docusate [Colace] 100 mg PO DAILY 10/24/24 Fluticasone Propion/Salmeterol [Fluticasone-Salmeterol 250-50] 1 puff INHALATION RT-BID 10/24/24 Insulin Lispro [humaLOG Kwikpen] See Protocol SQ ACHS 10/24/24 Morphine Sulfate ER [Ms Contin] 30 mg PO BID 10/24/24 Morphine Sulfate Ir [MSIR] 15 mg PO Q4-6H PRN 10/24/24 Ondansetron Odt [Zofran ODT] 4 mg PO BID PRN 10/24/24 Apixaban [Eliquis] 5 mg PO BID 30 Days #60 tab 10/28/24 Furosemide [Lasix] 20 mg PO BID@0900,1600 30 Days #60 tab 10/28/24 Metoprolol Tartrate [Lopressor] 100 mg PO BID 30 Days #120 tab 10/28/24 lisinopriL [Zestril] 20 mg PO DAILY 30 Days #30 tab 10/28/24 Controlled Substance Measures - Controlled Substance Measures Is patient prescribed a controlled substance at discharge?: No
--- NOTE | 2024-12-02 16:45 | P.PN ---
Subjective Progress Note Date: 12/02/24 Principal diagnosis: Chest pain, atrial fibrillation. History of breast cancer In follow-up today patient still having nausea and vomiting with any movement, knee pain is at a 10, she is very uncomfortable, wants to go home but knows she can't without nausea and pain controlled. She had her MRI of the brain this AM. Objective - Vital Signs Vital signs: Vital Signs Temp 97.9 F 12/02/24 08:43 Pulse 96 12/02/24 12:30 Resp 16 12/02/24 11:51 BP 129/75 12/02/24 11:51 Pulse Ox 96 12/02/24 11:51 FiO2 Intake & Output 12/01/24 12/02/24 12/02/24 18:59 06:59 18:59 Intake Total 476 240 Output Total 1050 800 Balance -574 -800 240 Weight 107 kg Intake: Oral 476 240 Output: Urine 1050 800 Other: Voiding Method Bedpan Bedpan Bedpan External Catheter External Catheter External Catheter - Constitutional General appearance: Present: cooperative, mild distress, obese - EENT Eyes: Present: anicteric sclerae, EOMI ENT: Present: hearing grossly normal, normal oropharynx - Respiratory Respiratory: bilateral: diminished - Cardiovascular Rhythm: regular Heart sounds: normal: S1, S2 - Peripheral edema leg Peripheral Edema: bilateral: Trace - Integumentary Integumentary: Present: normal - Neurologic Neurologic: Present: CNII-XII intact (grossly) - Musculoskeletal Musculoskeletal: Present: generalized weakness, strength equal bilaterally - Psychiatric Psychiatric: Present: A&O x's 3, appropriate affect, intact judgment & insight - Labs CBC & Chem 7: 11/30/24 05:39 12/02/24 05:35 Labs: Abnormal Lab Results - Last 24 Hours (Table) 12/01/24 12/01/24 12/02/24 Range/Units 16:42 20:06 05:35 Sodium 133 L (137-145) mmol/L Chloride 92 L (98-107) mmol/L Carbon Dioxide 40 H (22-30) mmol/L BUN 22 H (7-17) mg/dL Creatinine 1.08 H (0.52-1.04) mg/dL POC Glucose (mg/dL) 145 H 190 H (70-110) mg/dL 04/16/25 Range/Units 11:53 Sodium (137-145) mmol/L Chloride (98-107) mmol/L Carbon Dioxide (22-30) mmol/L BUN (7-17) mg/dL Creatinine (0.52-1.04) mg/dL POC Glucose (mg/dL) 156 H (70-110) mg/dL - Imaging and Cardiology MRI - head: report reviewed Assessment and Plan (1) Vomiting Current Visit: Yes Status: Acute Code(s): R11.10 - VOMITING, UNSPECIFIED SNOMED Code(s): 411142291 (2) Breast cancer Current Visit: No Status: Acute Priority: High Code(s): C50.919 - MALIGNANT NEOPLASM OF UNSP SITE OF UNSPECIFIED FEMALE BREAST SNOMED Code(s): 608634696 (3) Pancytopenia Current Visit: Yes Status: Acute Priority: High Code(s): D61.818 - OTHER PANCYTOPENIA SNOMED Code(s): 210491082 Plan: A-fib with RVR -Anticoagulated with Eliquis -Cardiology has seen the patient, defer management of the same. 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 Patient completed radiation therapy. She has has not taken aromatase inhibitor consistently over the last 4 years. -August 18, 2024, CT of the right knee reporting unusual pattern she is sclerosis and lucency about both distal femoral and proximal tibial components, similar to 03/10/2024 imaging. Areas of periprosthetic osseous scalloping/erosion both anteriorly and posteriorly at the femoral component is similar to prior study as well, etiology unclear. Sequela of chronic infection versus underlying osseous metastatic disease. There was an interval development of a nondisplaced periprosthetic fracture along the anterior aspect of the tibia. Nuclear medicine bone scan 08/21/2024 did show diffuse uptake within the appendicular skeleton corresponding to CT findings. Shoulder x-ray 09/06/2024, reversed left shoulder arthroplasty appeared intact. No dislocation. Degenerative changes. Knee x-ray 11/29/2024 reporting no acute fracture or dislocation. No periprosthetic loosening. Diffuse subcutaneous edema. -CT AP reported diffuse osseous metastatic disease. No greater than 1 cm lymph nodes noted to suggest intra-abdominal metastatic disease. Subacute fracture of the left 11th rib. Nodular contour to liver, possible cirrhosis. -Outpt care has been delayed due to multiple cancellations. Patient did have bone biopsy at [facility] on 11/19, that was unfortunately positive for met breast carcinoma. Pt and aware. These findings represent stage IV disease, not curable but, chemo and non-chemo treatment options available. Will plan for a f/u with Dr. Yancey to review options, order molecular testing, and to develop a plan of care. Intractable V with movement -MRI of the brain completed, reporting age-appropriate diffuse mild cerebral volume loss. No evidence of restricted diffusion to suggest acute/subacute infarct. Intracranial arterial flow voids are maintained. Midline structures show no abnormality. There is a T2 hyperintense signal within the right frontal lobe and right anterior temporal lobe with effacement of the peripheral sulcus I. This is consistent with vasogenic edema. No focal enhancing intra-axial lesions. There is adjacent abnormal enhancing dural thickening measures up to 1.3 cm in thickness along a gross length of 3 cm. Diffuse dural enhancement identified. Few patchy foci of high T2 FLAIR signal intensity seen within the supratentorial subcortical white matter. No midline shift. The susceptibility weighted images demonstrate foci of blooming artifact within this region of dural thickening consistent with hemosiderin deposition. Small focal regions of enhancement are identified within the calvarium. -Steroids initiated. Pt on PPI -Case discussed with Radiation Oncology, they will see pt soon-for both brain mets and painful bone mets -Zofran and Compazine ordered PRN-will see if steroids help with symptoms-Cont anastrazole daily for now Pain, related to malignancy -Knee and shoulder pain-2/2 mets -Steroids have been started for brain mets, may help with bone met pain -MS IR done increased and freq adjusted -Radiation Oncology consulted. May be able to offer some radiation to help with pain in the knee and shoulder -Added medications for treatment of narcotic induced constipation as pt has not had a BM since admit. Cont meds for prevention Pancytopenia -CBC in Sept was normal, pancytopenia noted during admission in 08/2024 -Pancytopenia workup ordered during previous admit. No MGUS noted, iron studies were most consistent with inflammation. [place] pancytopenia concerning for marrow infiltration with metastatic disease from breast cancer. Bone biopsy, positive for metastatic breast carcinoma. -WBC normal on last check, mild anemia and thrombocytopenia. No acute interventions needed -CBC will cont to be monitored. No transfusions have been needed this hospital stay so far
[2024-12-02 16:53] LABS: Glucose,Whole Blood 206 mg/dL (70-110)
[2024-12-02] MEDS: LIDOCAINE 4% PATCH TOPICAL SCH (17:26)
[2024-12-02] MEDS: MAGNESIUM HYDROXIDE 2,400 MG/30 ML CUP PO PRN (17:26)
[2024-12-02] MEDS: DEXAMETHASONE SOD PHOSPHATE 4 MG/ML 1 ML VIAL IVP SCH (17:26)
[2024-12-02 20:21] LABS: Glucose,Whole Blood 216 mg/dL (70-110)
--- NOTE | 2024-12-02 22:57 | P.PN ---
Subjective Patient is seen for follow-up for acute kidney injury. Currently being diuresed Renal function has improved with creatinine down to 1.0. Objective - Vital Signs Vital signs: Vital Signs Temp 97.9 F 12/02/24 08:43 Pulse 84 12/02/24 20:21 Resp 16 12/02/24 15:12 BP 157/92 12/02/24 15:12 Pulse Ox 96 12/02/24 15:12 FiO2 Intake & Output 12/02/24 12/02/24 12/03/24 06:59 18:59 06:59 Intake Total 840 Output Total 800 850 Balance -800 -10 Weight 107 kg Intake: Oral 840 Output: Urine 800 850 Other: Voiding Method Bedpan Bedpan External Catheter External Catheter - Exam Patient is awake, comfortable, no acute distress Alert oriented x 3 Examination of the heart S1 and S2 Examination of the lungs bilateral breath sounds are heard Abdomen is soft nontender Examination of lower extremities shows edema 1+ bilaterally 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 exam grossly intact - Labs CBC & Chem 7: 11/30/24 05:39 12/02/24 05:35 Labs: Abnormal Lab Results - Last 24 Hours (Table) 12/02/24 12/02/24 12/02/24 Range/Units 05:35 11:53 16:51 Sodium 133 L (137-145) mmol/L Chloride 92 L (98-107) mmol/L Carbon Dioxide 40 H (22-30) mmol/L BUN 22 H (7-17) mg/dL Creatinine 1.08 H (0.52-1.04) mg/dL POC Glucose (mg/dL) 156 H 206 H (70-110) mg/dL 12/02/24 Range/Units 20:14 Sodium (137-145) mmol/L Chloride (98-107) mmol/L Carbon Dioxide (22-30) mmol/L BUN (7-17) mg/dL Creatinine (0.52-1.04) mg/dL POC Glucose (mg/dL) 216 H (70-110) mg/dL Assessment and Plan Assessment: 1. Acute kidney injury multifactorial including hemodynamic instability with A- fib with RVR as well as NSAIDs. UA shows moderate blood, no protein. 3. History of metastatic breast cancer status right postmastectomy and maintain ed on Arimidex 4. Anemia rule out iron deficiency 5. Volume overload, diuretics have been switched to oral Plan: May continue with current dose of Lasix Avoid NSAIDs due to volume overload and significant edema Repeat labs in a.m. May continue with BENJAMIN inhibitor
[2024-12-02] MEDS: PROCHLORPERAZINE 10 MG TAB PO PRN (23:57)
[2024-12-03 06:26] LABS: Glucose,Whole Blood 142 mg/dL (70-110)
[2024-12-03 06:56] LABS: Basophils # (A) 0.01 10*3/uL (0.00-0.10); Basophils % (A) 0.2 %; HCT 27.4 % (37.2-46.3); HGB 8.3 g/dL (12.0-15.0); Immature Platelet Fraction 3.9 % (1.1-6.1); Lymphocytes # (A) 0.72 10*3/uL (0.90-5.00); Lymphocytes % (A) 15.5 %; MCH 27.7 pg (27.0-32.0); MCHC 30.3 g/dL (32.0-37.0); MCV 91.3 fL (80.0-97.0); Mean Platelet Volume 10.2 fL (9.5-12.2); Monocytes # (A) 0.25 10*3/uL (0.20-1.00); Monocytes % (A) 5.4 %; Neutrophils # (A) 3.61 10*3/uL (1.80-7.70); Neutrophils % (A) 77.4 %; Platelet Count 132 10*3/uL (140-440); RDW 15.9 % (11.5-14.5); WBC 4.66 10*3/uL (4.50-10.00)
[2024-12-03 07:09] LABS: African American GFR (CKD) 61 (>60 ml/min/1.73 sqM); Anion Gap 3 mmol/L; Blood Urea Nitrogen 23 mg/dL (7-17); Calcium 9.2 mg/dL (8.4-10.2); Carbon Dioxide 39 mmol/L (22-30); Chloride 92 mmol/L (98-107); Glucose 122 mg/dL (74-99); Non-African American GFR(CKD) 53 (>60 ml/min/1.73 sqM); Potassium 4.4 mmol/L (3.5-5.1); Sodium 134 mmol/L (137-145)
[2024-12-03 11:53] LABS: Glucose,Whole Blood 154 mg/dL (70-110)
[2024-12-03] MEDS: ONDANSETRON 4 MG/2 ML VIAL IVP SCH (12:19)
--- NOTE | 2024-12-03 12:26 | P.PN ---
Subjective Patient is seen for follow-up for acute kidney injury. Currently being diuresed Renal function has improved with creatinine staying around 1.0. Objective - Vital Signs Vital signs: Vital Signs Temp 98.1 F 12/03/24 08:03 Pulse 85 12/03/24 11:25 Resp 16 12/03/24 08:03 BP 138/75 12/03/24 08:03 Pulse Ox 93 L 12/03/24 08:03 FiO2 Intake & Output 12/02/24 12/03/24 12/03/24 18:59 06:59 18:59 Intake Total 840 240 118 Output Total 850 400 72 Balance -10 -160 46 Weight 105 kg Intake: Oral 840 240 118 Output: Urine 850 400 Post Void Residual 72 Other: Voiding Method Bedpan Bedpan Bedside Commode External Catheter External Catheter External Catheter # Voids 2 1 - Exam Patient is awake, comfortable, no acute distress Alert oriented x 3 Examination of the heart S1 and S2 Examination of the lungs bilateral breath sounds are heard Abdomen is soft nontender Examination of lower extremities shows edema 1+ bilaterally 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 grossly intact - Labs CBC & Chem 7: 12/03/24 06:05 12/03/24 06:05 Labs: Abnormal Lab Results - Last 24 Hours (Table) 12/02/24 12/02/24 12/03/24 Range/Units 16:51 20:14 06:05 RBC 3.00 L (4.10-5.20) 10*6/uL Hgb 8.3 L (12.0-15.0) g/dL Hct 27.4 L (37.2-46.3) % MCHC 30.3 L (32.0-37.0) g/dL Plt Count 132 L (140-440) 10*3/uL Immature Gran # 0.07 H (0.00-0.04) 10*3/uL Lymphocytes # 0.72 L (0.90-5.00) 10*3/uL Eosinophils # 0.00 L (0.04-0.35) 10*3/uL Sodium (137-145) mmol/L Chloride (98-107) mmol/L Carbon Dioxide (22-30) mmol/L BUN (7-17) mg/dL Creatinine (0.52-1.04) mg/dL Glucose (74-99) mg/dL POC Glucose (mg/dL) 206 H 216 H (70-110) mg/dL 12/03/24 12/03/24 12/03/24 Range/Units 06:05 06:25 11:52 RBC (4.10-5.20) 10*6/uL Hgb (12.0-15.0) g/dL Hct (37.2-46.3) % MCHC (32.0-37.0) g/dL Plt Count (140-440) 10*3/uL Immature Gran # (0.00-0.04) 10*3/uL Lymphocytes # (0.90-5.00) 10*3/uL Eosinophils # (0.04-0.35) 10*3/uL Sodium 134 L (137-145) mmol/L Chloride 92 L (98-107) mmol/L Carbon Dioxide 39 H (22-30) mmol/L BUN 23 H (7-17) mg/dL Creatinine 1.08 H (0.52-1.04) mg/dL Glucose 122 H (74-99) mg/dL POC Glucose (mg/dL) 142 H 154 H (70-110) mg/dL Assessment and Plan Assessment: 1. Acute kidney injury multifactorial including hemodynamic instability with A- fib with RVR as well as NSAIDs. UA shows moderate blood, no protein. 3. History of metastatic breast cancer status right postmastectomy and maintained on Arimidex 4. Anemia rule out iron deficiency 5. Volume overload, diuretics have been switched to oral Plan: Increase Lasix dose Avoid NSAIDs due to volume overload and significant edema Repeat labs in a.m. May continue with BENJAMIN inhibitor
--- NOTE | 2024-12-03 14:40 | P.PN ---
Subjective Progress Note Date: 12/03/24 Principal diagnosis: Chest pain, atrial fibrillation. History of breast cancer In follow-up today patient still having nausea and vomiting/dry heaves with any movement, knee and shoulder pain persist but do not seem as severe as yesterday with the change in pain med dose and frequency. Objective - Vital Signs Vital signs: Vital Signs Temp 98.1 F 12/03/24 08:03 Pulse 98 12/03/24 08:03 Resp 16 12/03/24 08:03 BP 138/75 12/03/24 08:03 Pulse Ox 93 L 12/03/24 08:03 FiO2 Intake & Output 12/02/24 12/03/24 12/03/24 18:59 06:59 18:59 Intake Total 840 240 118 Output Total 850 400 72 Balance -10 -160 46 Weight 105 kg Intake: Oral 840 240 118 Output: Urine 850 400 Post Void Residual 72 Other: Voiding Method Bedpan Bedpan Bedside Commode External Catheter External Catheter External Catheter # Voids 2 1 - Constitutional General appearance: Present: cooperative, mild distress, obese - EENT Eyes: Present: anicteric sclerae, EOMI ENT: Present: hearing grossly normal - Respiratory Respiratory: bilateral: CTA - Cardiovascular Rhythm: regular - Peripheral edema leg Peripheral Edema: bilateral: Trace - Gastrointestinal General gastrointestinal: Present: soft - Integumentary Integumentary: Present: normal - Neurologic Neurologic: Present: CNII-XII intact - Musculoskeletal Musculoskeletal: Present: generalized weakness - Psychiatric Psychiatric: Present: A&O x's 3, appropriate affect, intact judgment & insight - Labs CBC & Chem 7: 12/03/24 06:05 12/03/24 06:05 Labs: Abnormal Lab Results - Last 24 Hours (Table) 12/02/24 12/02/24 12/02/24 Range/Units 11:53 16:51 20:14 RBC (4.10-5.20) 10*6/uL Hgb (12.0-15.0) g/dL Hct (37.2-46.3) % MCHC (32.0-37.0) g/dL Plt Count (140-440) 10*3/uL Immature Gran # (0.00-0.04) 10*3/uL Lymphocytes # (0.90-5.00) 10*3/uL Eosinophils # (0.04-0.35) 10*3/uL Sodium (137-145) mmol/L Chloride (98-107) mmol/L Carbon Dioxide (22-30) mmol/L BUN (7-17) mg/dL Creatinine (0.52-1.04) mg/dL Glucose (74-99) mg/dL POC Glucose (mg/dL) 156 H 206 H 216 H (70-110) mg/dL 12/03/24 12/03/24 12/03/24 Range/Units 06:05 06:05 06:25 RBC 3.00 L (4.10-5.20) 10*6/uL Hgb 8.3 L (12.0-15.0) g/dL Hct 27.4 L (37.2-46.3) % MCHC 30.3 L (32.0-37.0) g/dL Plt Count 132 L (140-440) 10*3/uL Immature Gran # 0.07 H (0.00-0.04) 10*3/uL Lymphocytes # 0.72 L (0.90-5.00) 10*3/uL Eosinophils # 0.00 L (0.04-0.35) 10*3/uL Sodium 134 L (137-145) mmol/L Chloride 92 L (98-107) mmol/L Carbon Dioxide 39 H (22-30) mmol/L BUN 23 H (7-17) mg/dL Creatinine 1.08 H (0.52-1.04) mg/dL Glucose 122 H (74-99) mg/dL POC Glucose (mg/dL) 142 H (70-110) mg/dL Assessment and Plan (1) Vomiting Current Visit: Yes Status: Acute Code(s): R11.10 - VOMITING, UNSPECIFIED SNOMED Code(s): 590600556 (2) Breast cancer Current Visit: No Status: Acute Priority: High Code(s): C50.919 - MALIGNANT NEOPLASM OF UNSP SITE OF UNSPECIFIED FEMALE BREAST SNOMED Code(s): 180476679 (3) Pancytopenia Current Visit: Yes Status: Acute Priority: High Code(s): D61.818 - OTHER PANCYTOPENIA SNOMED Code(s): 774919778 Plan: A-fib with RVR -Anticoagulated with Eliquis -Cardiology has seen the patient, defer management of the same. Hx ER/DE positive, Her neg breast cancer, diagnosed 2019 -Patient had surgery, Oncotype score was 21, unclear if any significant benefit from receiving adjuvant chemotherapy so, pt was recommended radiation and AI. Patient completed radiation therapy. She has has not taken aromatase inhibitor consistently over the last 4 years. -August 18, 2024, CT of the right knee reporting unusual pattern she is sclerosis and lucency about both distal femoral and proximal tibial components, similar to 03/10/2024 imaging. Areas of periprosthetic osseous scalloping/erosion both anteriorly and posteriorly at the femoral component is similar to prior study as well, etiology unclear. Sequela of chronic infection versus underlying osseous metastatic disease. There was an interval development of a nondisplaced periprosthetic fracture along the anterior aspect of the tibia. Nuclear medicine bone scan 08/21/2024 did show diffuse uptake within the appendicular skeleton corresponding to CT findings. Shoulder x-ray 09/06/2024, reversed left shoulder arthroplasty appeared intact. No dislocation. Degenerative changes. Knee x-ray 11/29/2024 reporting no acute fracture or dislocation. No periprosthetic loosening. Diffuse subcutaneous edema. -CT AP reported diffuse osseous metastatic disease. No greater than 1 cm lymph nodes noted to suggest intra-abdominal metastatic disease. Subacute fracture of the left 11th rib. Nodular contour to liver, possible cirrhosis. -Outpt care has been delayed due to multiple cancellations. Patient did have bone biopsy at [facility] on 11/19, that was unfortunately positive for met breast carcinoma. Pt and aware. These findings represent stage IV disease, not curable but, chemo and non-chemo treatment options available. Will plan for a f/u with Dr. Yancey to review options, order molecular testing, and to develop a plan of care. Intractable V with movement, 2/2 brain mets -MRI of the brain completed, reporting age-appropriate diffuse mild cerebral volume loss. No evidence of restricted diffusion to suggest acute/subacute infarct. Intracranial arterial flow voids are maintained. Midline structures show no abnormality. There is a T2 hyperintense signal within the right frontal lobe and right anterior temporal lobe with effacement of the peripheral sulcus I. This is consistent with vasogenic edema. No focal enhancing intra-axial lesions. There is adjacent abnormal enhancing dural thickening measures up to 1.3 cm in thickness along a gross length of 3 cm. Diffuse dural enhancement identified. Few patchy foci of high T2 FLAIR signal intensity seen within the supratentorial subcortical white matter. No midline shift. The susceptibility weighted images demonstrate foci of blooming artifact within this region of dural thickening consistent with hemosiderin deposition. Small focal regions of enhancement are identified within the calvarium. -Dural enancement concern for leptomeningeal spread. Pending Rad Onc review. May have to order a LP with CSF evaluation -Steroids initiated, not much improvement in N,V/dry heaves. Will try dose modification to 6mg dex, same frequency, every 6 hours. Pt on PPI, steroid induced gastritis prevention -Case discussed with Radiation Oncology yesterday, they will see pt soon-for both brain mets and painful bone mets -Zofran ordered every 6 hours, Compazine ordered PRN, added scopolamine -Reviewed Orthopedic notes, no plans for surgical intervention so, zometa ordered for bone mets. Pain, related to malignancy -Knee and shoulder pain-2/2 mets -Steroids have been started for brain mets, not really helping with bone met pain -MS IR done increased and freq adjusted, maybe a little better pain control -No orthopedic procedures planned, zometa ordered for bone mets -Radiation Oncology consulted. May be able to offer some radiation to help with pain in the knee and shoulder -Added medications for treatment of narcotic induced constipation as pt has not had a BM since admit. Cont meds for prevention Pancytopenia -CBC in Apr was normal, pancytopenia noted during admission in 08/2024 -Pancytopenia workup ordered during previous admit. No MGUS noted, iron studies were most consistent with inflammation. -WBC normal on last check, mild anemia and thrombocytopenia. No acute interventions needed -CBC will cont to be monitored PRN. No transfusions have been needed this hospital stay so far
[2024-12-03] MEDS: DEXAMETHASONE SOD PHOSPHATE 10 MG/ML 1 ML VIAL IVP SCH (15:52)
[2024-12-03] MEDS: FUROSEMIDE 20 MG TAB PO SCH (15:52)
[2024-12-03] MEDS: SCOPOLAMINE 1 MG/72 HR PATCH TRANSDERM SCH (15:52)
[2024-12-03] MEDS: ZOLEDRONIC ACID 4 MG in SODIUM CHLORIDE 0.9% 100 ML IV ONE (15:52)
--- NOTE | 2024-12-03 16:06 | P.PN ---
Subjective Progress Note Date: 12/03/24 This is a 69-year-old female with medical history significant for asthma COPD, diabetes mellitus, hypertension, hyperlipidemia, acid reflux, migraine, right breast cancer with prior mastectomy. Patient also has history of atrial fibrillation and is anticoagulated with eliquis on an outpatient basis. Patient is also a former smoker. Presented to the hospital for a 2-day history of chest pain and shortness of breath. States that she began vomiting Saturday overnight denies having any diarrhea and denies any fever or chills. She was having some burning like sensation after the vomiting and then developed a right sided chest pain with radiation into the shoulder. She initially presented to [facility] troponin levels were negative there. Patient received Nitropaste morphine was brought down to the [facility] for further cardiac evaluation. Her proBNP is elevated at 4300 her troponin levels here have been negative x 3. Chest x-ray reveals pulmonary vascular congestion. Paitent does state she missed multiple doses of her blood thinner because of the vomiting and GI upset. She is also complaining of worsening lower extremity edema. Patient states the right leg is always weaker than the left due a knee injury. On presentation patient was in atrial fibrillation with RVR and started on IV cardizem. She is also started on IV lasix. Patient takes oral morphine scheduled for chronic pain however has required multiple doses of IV morphine for the right shoulder pain. At this time rating it 5/10. Feels sharp in nature. Cardiology to evaluate the patient. 11/28/2024 Patient evaluated in follow up remains in the ER pending bed on the medical floor. Feels significantly improved as compared to yesterday. The sharp pain in the right side of the chest is now intermittent however still presents with deep inspiration. Patient ahd CTA completed for elevated d dimer which was negative for PE did reveal progression of osseus metastatic disease for imaging in july of 2024. Patient states she had a bone biopsy done a week ago has an appt with Dr Yancey on Saturday at 4 pm. Oncology will be consulted. Cardiology following. Patient remains on IV lasix 40 mg Q12 hour. Sodium level 135, BUN 30, creatinine 1.12. Procalcitonin level 0.24. 11/29/2024 Patient evaluated in follow-up on the medical floor. Patient continues to report significant improvement since admission. Patient is not having any further reports of chest discomfort at this time only with deep inspiration. She is reporting some pain in her right shoulder blade states that it is uncontrolled with her current regimen of oral morphine. Will give an additional one-time dose of IV morphine. Patient has been having nausea and dry heaving today. Compazine has been added in addition to Zofran. She is currently pending evaluation by oncology. Will transition patient to oral Lasix. 11/30/2024 Patient seen today in follow-up in the medical floor. Patient continues to report episodes of emesis and using IV Zofran and IV Compazine alternating for this. She is tolerating regular diet though. Her bowels are moving. Patient does continue to report some right shoulder discomfort worse with deep jeremy athing. She is currently pending bone marrow biopsy report. Urinalysis is unremarkable. Patient's white blood cell count today is 4.55 hemoglobin 9.2, platelet count of 136. Her sodium level today is 134, BUN of 26 creatinine of 1.23. She is urinating adequately and indwelling Berrios catheter was removed over 24 hours ago. Patient did fall yesterday afternoon after receiving a 10 mg dose of IV Compazine when she got up to the bathroom she felt dizzy. She states that she fell on her right knee and was having pain x-ray was completed which reveals no acute changes. Patient states that she feels her knee was swollen and bruised however there is no obvious bruising noted on examination and no significant swelling noted. She has an Nilo wrap in place which she states does help the pain. Will continue to monitor and she may need orthopedic evaluation. Noted the patient does have a prior right total knee arthroplasty. 12/01/2024 Patient is evaluated in follow-up in the medical floor. She continues to report nausea not having any further episodes of emesis and tolerating regular diet. Remains on antiemetic and patient will be going for a brain MRI today. Sodium level today stable at 134 BUN of 25 creatinine 1.12. Patient on oral Lasix 40 mg twice daily. 12/02/2024 Evaluated in follow-up on the medical floor. She continues to report significant pain to her right scapular area and worse with deep inspiration. This could be due to the bony metastatic disease. She also complains of right knee pain post fall has an Nilo wrap bandage in place however pain is not improving and we will ask orthopedic to evaluate this knee as she has had a total knee replacement done in the past on the right side. Brain MRI was completed today and was positive for 2 areas of vasogenic edema within the right foot normal enhancing focal dural thickening. This is on background diffuse dural enhancement. Findings are highly concerning for dural metastasis in the setting of known osseous metastasis. There are few small scattered enhancing osseous lesions within the calvarium concerning for possible metastasis. Nonspecific mild white matter changes without enhancement likely related to small vessel ischemic disease. Labs today reveal a sodium level of 133, potassium 3.8, BUN of 22 creatinine of 1.08. 12/03/2024 Patient is evaluated today in follow up. Continues to report significant pain to the right knee/leg. Additionally having pain in the right sided scapular region. Brain MRI reviewed by oncology and awaiting input from radiation oncologist at this time. Patient remains on IV decadron. Patient continues with significant nausea and vomiting. White blood cell count 4.66, hgb 8.3. Sodium 134, potassium 4.4., BUN 23, creatinine 1.08. REVIEW OF SYSTEMS: CONSTITUTIONAL: No fever, no malaise, no fatigue. HEENT: No recent visual problems or hearing problems. Denied any sore throat. CARDIOVASCULAR: Reports right sided chest pain, orthopnea, PND, no palpitations, no syncope. PULMONARY: Reports shortness of breath worse with inspiration, no cough, no hemoptysis. GASTROINTESTINAL: No diarrhea, no nausea, reports vomiting no abdominal pain. NEUROLOGICAL: No headaches, no weakness, no numbness. Weakness worse in the right due to old knee injury. Reports right knee pain PHYSICAL EXAMINATION: GENERAL: The patient is alert and oriented x3, not in any acute distress. Well developed, well nourished. Obese HEENT: Pupils are round and equally reacting to light. EOMI. No scleral icterus. No conjunctival pallor. Normocephalic, atraumatic. No pharyngeal erythema. No thyromegaly. CARDIOVASCULAR: S1 and S2 present. No murmurs, rubs, or gallops. PULMONARY: Chest is clear to auscultation, no wheezing or crackles. Diminished ABDOMEN: Soft, nontender, nondistended, normoactive bowel sounds. No palpable organomegaly. MUSCULOSKELETAL: No joint swelling or deformity. EXTREMITIES: No cyanosis, clubbing, has mild peripheral edema NEUROLOGICAL: Gross neurological examination did not reveal any focal deficits. Generalized weakness SKIN: No rashes. Assessment and plan Chest pain atypical ruled out acute coronary syndrome chest pain is pleuritic in nature could be due to osseous metastatic disease Acute congestive heart failure diastolic dysfunction Atrial fibrillation with rapid ventricular rate recently diagnosed in October, currently rate controlled Fall with pain to the right knee Periprosthetic pathological knee fracture with concern for bony metastasis of the proximal tibia. Vasogenic edema with concern for brain metastatic disease History of paroxysmal atrial fibrillation anticoag with Eliquis Asthma/COPD with no acute exacerbation Pancytopenia bone marrow biopsy currently pending reports Diabetes mellitus type 2 Hypertension Hyperlipidemia Gastroesophageal reflux disease History of breast cancer with right mastectomy maintained on on Arimidex Former smoker Obesity Plan IV cardizem off; rate controlled Transition to oral Lasix and continue strict intake and output monitoring Nephrology consultation Eliquis has been resumed Oncology has been consulted and awaiting bone marrow biopsy report Patient has been started on IV Decadron Continue oral morphine twice daily scheduled as well as breakthrough immediate release morphine every 6 hours Pain management has been consulted Protonix twice daily resume Continue Zofran and compazine Oncology recommending hinged knee brace for the right knee for protected weight bearing. Pending input from radiation oncology. PT/OT consultation The impression and plan of care has been dictated by Claire Kay, Nurse Practitioner as directed. Dr. Joesph MD I have performed a history and physical examination and medical decision making of this patient, discussed the same with the dictator, and agree with the dictators assessment and plan as written, documented as a scribe. Based on total visit time, I have performed more than 50% of this visit. Objective - Vital Signs Vital signs: Vital Signs Temp 97.8 F 12/03/24 12:43 Pulse 94 12/03/24 16:00 Resp 18 12/03/24 12:43 BP 147/66 12/03/24 16:00 Pulse Ox 96 12/03/24 16:00 FiO2 Intake & Output 12/02/24 12/03/24 12/03/24 18:59 06:59 18:59 Intake Total 840 240 118 Output Total 850 400 72 Balance -10 -160 46 Weight 105 kg Intake: Oral 840 240 118 Output: Urine 850 400 Post Void Residual 72 Other: Voiding Method Bedpan Bedpan Bedside Commode External Catheter External Catheter External Catheter # Voids 2 1 - Labs CBC & Chem 7: 04/17/25 06:05 12/03/24 06:05 Labs: Abnormal Lab Results - Last 24 Hours (Table) 12/02/24 12/02/24 12/03/24 Range/Units 16:51 20:14 06:05 RBC 3.00 L (4.10-5.20) 10*6/uL Hgb 8.3 L (12.0-15.0) g/dL Hct 27.4 L (37.2-46.3) % MCHC 30.3 L (32.0-37.0) g/dL Plt Count 132 L (140-440) 10*3/uL Immature Gran # 0.07 H (0.00-0.04) 10*3/uL Lymphocytes # 0.72 L (0.90-5.00) 10*3/uL Eosinophils # 0.00 L (0.04-0.35) 10*3/uL Sodium (137-145) mmol/L Chloride (98-107) mmol/L Carbon Dioxide (22-30) mmol/L BUN (7-17) mg/dL Creatinine (0.52-1.04) mg/dL Glucose (74-99) mg/dL POC Glucose (mg/dL) 206 H 216 H (70-110) mg/dL 12/03/24 12/03/24 12/03/24 Range/Units 06:05 06:25 11:52 RBC (4.10-5.20) 10*6/uL Hgb (12.0-15.0) g/dL Hct (37.2-46.3) % MCHC (32.0-37.0) g/dL Plt Count (140-440) 10*3/uL Immature Gran # (0.00-0.04) 10*3/uL Lymphocytes # (0.90-5.00) 10*3/uL Eosinophils # (0.04-0.35) 10*3/uL Sodium 134 L (137-145) mmol/L Chloride 92 L (98-107) mmol/L Carbon Dioxide 39 H (22-30) mmol/L BUN 23 H (7-17) mg/dL Creatinine 1.08 H (0.52-1.04) mg/dL Glucose 122 H (74-99) mg/dL POC Glucose (mg/dL) 142 H 154 H (70-110) mg/dL Assessment and Plan Time with Patient: Greater than 30
[2024-12-03 16:35] LABS: Glucose,Whole Blood 175 mg/dL (70-110)
--- NOTE | 2024-12-03 17:13 | P.CONS ---
History of Present Illness - Reason for Consult Consult date: 12/03/24 - Chief Complaint Pain - History of Present Illness Mrs. Aguilera is a 69 years old female with a history of breast cancer, she was diagnosed in December 2021 with a right breast cancer S/P right mastectomy , pathology came with invasive ductal carcinoma grade 2 and positive lymph nodes then she received adjuvant chemotherapy and radiation and followed by anastrozole. Earlier this year she developed metastasis disease to the bone , she presented with pain in the right knee S/P knee replacement . She continues with systemic therapy. She was admitted to the hospital recently due to episodes of shaking left leg and vomiting , as well as severe pain in the right knee and right shoulder. MRI of the brain revealed 2 focal regions of vasogenic edema within the right frontal lobe and right anterior temporal lobe with adjacent abnormal enhancing focal dural thickening , these findings are concerning of dural metastasis at the patient has a history of breast cancer The patient noticed improvement after dexamethasone started, she is on a high dose of morphine to control her pain, the patient has difficulty ambulating and she is still complaining of pain even at rest Review of Systems Constitutional: Reports as per HPI Ears, nose, mouth and throat: Reports as per HPI Cardiovascular: Reports as per HPI Respiratory: Reports as per HPI Gastrointestinal: Reports as per HPI Genitourinary: Reports as per HPI Musculoskeletal: Reports leg numbness/tingling, Reports low back pain, Reports neck pain Musculoskeletal: right: knee stiffness, knee swelling, shoulder pain, shoulder stiffness, shoulder swelling Integumentary: Reports as per HPI Neurological: Reports tingling, Reports weakness Psychiatric: Reports as per HPI Endocrine: Reports as per HPI Hematologic/Lymphatic: Reports as per HPI Allergic/Immunologic: Reports as per HPI Past Medical History Past Medical History: Asthma, Cancer, COPD, Diabetes Mellitus, GERD/Reflux, Hyperlipidemia, Hypertension, Musculoskeletal Disorder Additional Past Medical History / Comment(s): Migraine headaches. Hx kidney stone. Chronic back pain, numbness and tingling bilateral lower extremities. Right Breast cancer History of Any Multi-Drug Resistant Organisms: None Reported, MRSA Year Discovered:: 2011 MDRO Source:: UNK Past Surgical History: Appendectomy, Back Surgery, Breast Surgery, Cholecystectomy, Joint Replacement, Orthopedic Surgery Additional Past Surgical History / Comment(s): Fusion w/ kane also back surgery 04/21/2019. Left Shoulder Replacement, Right knee replacement, plate in right wrist, left thumb joint repair, Right CTR, Right shoulder arthroscopy. micheal cataracts, LARYNGOSCOPY, November 2016 Cervical Plate, PAIN CLINIC PROCEDURES, right masectomy Past Anesthesia/Blood Transfusion Reactions: No Reported Reaction Past Psychological History: No Psychological Hx Reported Smoking Status: Former smoker Past Alcohol Use History: None Reported Additional Past Alcohol Use History / Comment(s): SMOKED 1PPD, STARTED SMOKING AGE 17, AND QUIT IN 1981. Past Drug Use History: None Reported - Past Family History Brother(s) Family Medical History: Cancer, Myocardial Infarction ([place]) Father Family Medical History: Cancer Additional Family Medical History / Comment(s): throat, colon, liver, and brain cancer. Mother Family Medical History: Myocardial Infarction ([place]) Additional Family Medical History / Comment(s): at 54 of [place]. Medications and Allergies Home Medications Medication Instructions Recorded Confirmed Type Butalb/Acetaminophen/Caffeine 1 tab PO BID PRN 04/11/14 11/27/24 History [Fioricet 50-325-40 mg Tablet] Albuterol Sulfate [Albuterol 2 puff INHALATION RT-QID PRN 03/09/24 11/27/24 History Sulfate Hfa] Atorvastatin [Lipitor] 10 mg PO DAILY 03/09/24 11/27/24 History Baclofen [Lioresal] 20 mg PO BID 08/18/24 11/27/24 History Anastrozole [Arimidex] 1 mg PO DAILY tab 08/31/24 11/27/24 Rx Insulin Glargine,Hum.rec.anlog 30 units SQ HS #0 08/31/24 11/27/24 Rx [Lantus Solostar Pen] Pantoprazole [Protonix] 40 mg PO AC-BID #0 tab 08/31/24 11/27/24 Rx Albuterol Nebulized [Ventolin 2.5 mg INHALATION RT-QID 10/24/24 11/27/24 History Nebulized] Docusate [Colace] 100 mg PO DAILY 10/24/24 11/27/24 History Fluticasone Propion/Salmeterol 1 puff INHALATION RT-BID 10/24/24 11/27/24 History [Fluticasone-Salmeterol 250-50] Insulin Lispro [humaLOG Kwikpen] See Protocol SQ ACHS 10/24/24 11/27/24 History Morphine Sulfate ER [Ms Contin] 30 mg PO BID 10/24/24 11/27/24 History Morphine Sulfate Ir [MSIR] 15 mg PO Q4-6H PRN 10/24/24 11/27/24 History Ondansetron Odt [Zofran ODT] 4 mg PO BID PRN 10/24/24 11/27/24 History Apixaban [Eliquis] 5 mg PO BID 30 Days #60 tab 10/28/24 11/27/24 Rx Furosemide [Lasix] 20 mg PO BID@0900,1600 30 Days #60 10/28/24 11/27/24 Rx tab Metoprolol Tartrate [Lopressor] 100 mg PO BID 30 Days #120 tab 10/28/24 11/27/24 Rx lisinopriL [Zestril] 20 mg PO DAILY 30 Days #30 tab 10/28/24 11/27/24 Rx Allergies Allergy/AdvReac Type Severity Reaction Status Date / Time gabapentin AdvReac Confusion Verified 11/27/24 08:51 ibuprofen [From Motrin] AdvReac Abdominal Verified 11/27/24 08:51 Pain and vomiting pregabalin [From Lyrica] AdvReac Confusion Verified 11/27/24 08:51 Physical Exam Vitals: Vital Signs Temp Pulse Pulse Resp BP Pulse Ox 12/03/24 16:00 94 147/66 96 12/03/24 15:39 86 12/03/24 15:26 83 12/03/24 12:43 97.8 F 93 18 143/86 93 L 12/03/24 11:25 85 12/03/24 11:14 83 12/03/24 08:03 98.1 F 98 16 138/75 93 L 12/03/24 08:02 85 12/03/24 07:48 82 12/03/24 04:40 111 H 16 149/93 97 12/03/24 00:00 109 H 16 147/79 95 12/02/24 21:30 98.1 F 118 H 16 148/98 94 L 12/02/24 20:21 84 12/02/24 20:11 80 Intake and Output 12/03/24 12/03/24 12/03/24 06:59 14:59 22:59 Intake Total 240 118 Output Total 400 72 Balance -160 46 Intake: Oral 240 118 Output: Urine 400 Post Void Residual 72 Other: Voiding Method Bedpan Bedside Commode External Catheter External Catheter # Voids 2 1 Weight 105 kg - Constitutional General appearance: obese - EENT Eyes: PERRLA - Neck Neck: no lymphadenopathy - Cardiovascular Rhythm: regular - Gastrointestinal General gastrointestinal: no organomegaly, soft, no tenderness - Neurologic Neurologic: CNII-XII intact - Musculoskeletal Musculoskeletal: generalized weakness - Psychiatric Psychiatric: A&O x's 3 Results CBC & Chem 7: 12/03/24 06:05 12/03/24 06:05 Labs: Abnormal Lab Results - Last 24 Hours (Table) 12/02/24 12/02/24 12/03/24 Range/Units 16:51 20:14 06:05 RBC 3.00 L (4.10-5.20) 10*6/uL Hgb 8.3 L (12.0-15.0) g/dL Hct 27.4 L (37.2-46.3) % MCHC 30.3 L (32.0-37.0) g/dL Plt Count 132 L (140-440) 10*3/uL Immature Gran # 0.07 H (0.00-0.04) 10*3/uL Lymphocytes # 0.72 L (0.90-5.00) 10*3/uL Eosinophils # 0.00 L (0.04-0.35) 10*3/uL Sodium (137-145) mmol/L Chloride (98-107) mmol/L Carbon Dioxide (22-30) mmol/L BUN (7-17) mg/dL Creatinine (0.52-1.04) mg/dL Glucose (74-99) mg/dL POC Glucose (mg/dL) 206 H 216 H (70-110) mg/dL 12/03/24 12/03/24 12/03/24 Range/Units 06:05 06:25 11:52 RBC (4.10-5.20) 10*6/uL Hgb (12.0-15.0) g/dL Hct (37.2-46.3) % MCHC (32.0-37.0) g/dL Plt Count (140-440) 10*3/uL Immature Gran # (0.00-0.04) 10*3/uL Lymphocytes # (0.90-5.00) 10*3/uL Eosinophils # (0.04-0.35) 10*3/uL Sodium 134 L (137-145) mmol/L Chloride 92 L (98-107) mmol/L Carbon Dioxide 39 H (22-30) mmol/L BUN 23 H (7-17) mg/dL Creatinine 1.08 H (0.52-1.04) mg/dL Glucose 122 H (74-99) mg/dL POC Glucose (mg/dL) 142 H 154 H (70-110) mg/dL 12/03/24 Range/Units 16:33 RBC (4.10-5.20) 10*6/uL Hgb (12.0-15.0) g/dL Hct (37.2-46.3) % MCHC (32.0-37.0) g/dL Plt Count (140-440) 10*3/uL Immature Gran # (0.00-0.04) 10*3/uL Lymphocytes # (0.90-5.00) 10*3/uL Eosinophils # (0.04-0.35) 10*3/uL Sodium (137-145) mmol/L Chloride (98-107) mmol/L Carbon Dioxide (22-30) mmol/L BUN (7-17) mg/dL Creatinine (0.52-1.04) mg/dL Glucose (74-99) mg/dL POC Glucose (mg/dL) 175 H (70-110) mg/dL Assessment and Plan Assessment: Stage IV breast cancer with brain and bone metastasis disease, causing severe pain in the right knee and right shoulder with a neurological symptoms related to new focal brain lesions with vasogenic edema in the right frontal lobe and right temporal lobe (1) Breast cancer Current Visit: No Status: Acute Priority: High Code(s): C50.919 - MALIGNANT NEOPLASM OF UNSP SITE OF UNSPECIFIED FEMALE BREAST SNOMED Code(s): 257903348 (2) Intractable pain Current Visit: No Status: Acute Code(s): R52 - PAIN, UNSPECIFIED SNOMED Code(s): 68952267 (3) Right knee pain Current Visit: No Status: Acute Priority: High Code(s): M25.561 - PAIN IN RIGHT KNEE SNOMED Code(s): 7380713054 Plan: - Images reviewed and discussed with the patient the patient : We can offer palliative radiotherapy to the right knee and right shoulder to control her pain I have discussed with the patient about the rationale the technique and the potential side effects of radiotherapy we are planning to deliver 5 treatments to each side for pain control. - the patient is neuro symptomatic she is having vomiting , shaking of the left leg, and tingling in both hands and arms, these symptoms are related to the lesions in the right temporal and right frontal lobes , stereotactic radiosurgery is recommneded to target these lesions and help the patient to control her symptoms ,we recommend to continue dexamethasone before and after the treatment to reduce the vasogenic edema in the brain . - We are planning to start her radiotherapy by tomorrow starting with palliative radiotherapy to the right knee and right shoulder to control her pain and eventually having treatment to the brain metastasis disease using stereotactic radiosurgery.
[2024-12-03 20:16] LABS: Glucose,Whole Blood 236 mg/dL (70-110)
[2024-12-04 05:55] LABS: Glucose,Whole Blood 280 mg/dL (70-110)
[2024-12-04] MEDS: ALPRAZolam 0.25 MG TAB PO ONE (08:26)
[2024-12-04 08:37] VITALS: BMI 42.3
[2024-12-04 11:20] LABS: Glucose,Whole Blood 286 mg/dL (70-110)
[2024-12-04] MEDS: MORPHINE SULFATE 2 MG/ML SYRINGE IVP STA ×2 (12:52→23:19)
[2024-12-04] MEDS ORDERED: NALOXONE 0.4 MG/ML 1 ML VIAL IVP PRN (15:20)
[2024-12-04 18:06] LABS: Glucose,Whole Blood 202 mg/dL (70-110)
--- NOTE | 2024-12-04 19:14 | P.PN ---
Subjective Progress Note Date: 12/04/24 At todays visit, pt reporting persisting right knee and right shoulder pain. Pain meds have been adjusted. Plans to start RT today Objective - Vital Signs Vital signs: Vital Signs Temp 98.5 F 12/04/24 11:50 Pulse 88 12/04/24 11:50 Resp 17 12/04/24 11:50 BP 152/87 12/04/24 11:50 Pulse Ox 98 12/04/24 11:50 FiO2 Intake & Output 12/03/24 12/04/24 12/04/24 18:59 06:59 18:59 Intake Total 118 120 Output Total 972 800 Balance -854 -800 120 Weight 105 kg 105 kg Intake: Oral 118 120 Output: Urine 900 800 Post Void Residual 72 Other: Voiding Method Bedside Commode Bedside Commode Bedside Commode External Catheter External Catheter External Catheter # Voids 1 - Constitutional General appearance: Present: no acute distress, obese - EENT Eyes: Present: anicteric sclerae, EOMI ENT: Present: hearing grossly normal - Respiratory Details: breathing is even and unlabored - Cardiovascular Details: skin warm and dry - Integumentary Integumentary: Absent: cyanotic - Musculoskeletal Musculoskeletal: Present: generalized weakness - Psychiatric Psychiatric: Present: A&O x's 3 - Labs CBC & Chem 7: 12/03/24 06:05 12/03/24 06:05 Labs: Abnormal Lab Results - Last 24 Hours (Table) 12/03/24 12/03/24 12/04/24 Range/Units 16:33 20:13 05:53 POC Glucose (mg/dL) 175 H 236 H 280 H (70-110) mg/dL 12/04/24 Range/Units 11:17 POC Glucose (mg/dL) 286 H (70-110) mg/dL Assessment and Plan (1) Atrial fibrillation with rapid ventricular response Current Visit: Yes Status: Acute Code(s): I48.91 - UNSPECIFIED ATRIAL FIBRILLATION SNOMED Code(s): 238407729463260 (2) Chest pain Current Visit: Yes Status: Acute Code(s): R07.9 - CHEST PAIN, UNSPECIFIED SNOMED Code(s): 11971613 (3) Breast cancer Current Visit: No Status: Acute Priority: High Code(s): C50.919 - MALIGNANT NEOPLASM OF UNSP SITE OF UNSPECIFIED FEMALE BREAST SNOMED Code(s): 079215548 Plan: A-fib with RVR -Anticoagulated with Eliquis -Cardiology has seen the patient, defer management of the same. Hx ER/ID positive, Her neg breast cancer, diagnosed 2019 -Patient had surgery, Oncotype score was 21, unclear if any significant benefit from receiving adjuvant chemotherapy so, pt was recommended radiation and AI. Patient completed radiation therapy. She has has not taken aromatase inhibitor consistently over the last 4 years. -August 18, 2024, CT of the right knee reporting unusual pattern she is sclerosis and lucency about both distal femoral and proximal tibial components, similar to 03/10/2024 imaging. Areas of periprosthetic osseous scalloping/erosion both anteriorly and posteriorly at the femoral component is similar to prior study as well, etiology unclear. Sequela of chronic infection versus underlying osseous metastatic disease. There was an interval development of a nondisplaced periprosthetic fracture along the anterior aspect of the tibia. Nuclear medicine bone scan 08/21/2024 did show diffuse uptake within the appendicular skeleton corresponding to CT findings. Shoulder x-ray 09/06/2024, reversed left shoulder arthroplasty appeared intact. No dislocation. Degenerative changes. Knee x-ray 11/29/2024 reporting no acute fracture or dislocation. No periprosthetic loosening. Diffuse subcutaneous edema. -CT AP reported diffuse osseous metastatic disease. No greater than 1 cm lymph nodes noted to suggest intra-abdominal metastatic disease. Subacute fracture of the left 11th rib. Nodular contour to liver, possible cirrhosis. -Outpt care has been delayed due to multiple cancellations. Patient did have bone biopsy at [facility] on 11/19, that was unfortunately positive for met breast carcinoma. Pt and aware. These findings represent stage IV disease, not curable but, chemo and non-chemo treatment options available. Will plan for a f/u with Dr. Yancey to review options, order molecular testing, and to develop a plan of care. Intractable V with movement, 2/2 brain mets -MRI of the brain completed, reporting age-appropriate diffuse mild cerebral volume loss. No evidence of restricted diffusion to suggest acute/subacute infarct. Intracranial arterial flow voids are maintained. Midline structures show no abnormality. There is a T2 hyperintense signal within the right frontal lobe and right anterior temporal lobe with effacement of the peripheral sulcus I. This is consistent with vasogenic edema. No focal enhancing intra-axial lesions. There is adjacent abnormal enhancing dural thickening measures up to 1.3 cm in thickness along a gross length of 3 cm. Diffuse dural enhancement identified. Few patchy foci of high T2 FLAIR signal intensity seen within the supratentorial subcortical white matter. No midline shift. The susceptibility weighted images demonstrate foci of blooming artifact within this region of dural thickening consistent with hemosiderin deposition. Small focal regions of enhancement are identified within the calvarium. -Dural enancement concern for leptomeningeal spread. Pending Rad Onc review. May have to order a LP with CSF evaluation -Steroids initiated, not much improvement in N,V/dry heaves. Will try dose modification to 6mg dex, same frequency, every 6 hours. Pt on PPI, steroid induced gastritis prevention -Case discussed with Radiation Oncology, plan for palliative radiotherapy to the right knee and right shoulder to control her pain and eventually having treatment to the brain metastasis disease using stereotactic radiosurgery -Zofran ordered every 6 hours, Compazine ordered PRN, added scopolamine -Reviewed Orthopedic notes, no plans for surgical intervention so, zometa ordered for bone mets. Pain, related to malignancy -Knee and shoulder pain-2/2 mets -Steroids have been started for brain mets, not really helping with bone met pain -MS IR done increased and freq adjusted -No orthopedic procedures planned, zometa ordered for bone mets -Radiation Oncology consulted. Plan to start RT today -Added medications for treatment of narcotic induced constipation as pt has not had a BM since admit. Cont meds for prevention Pancytopenia -CBC in Apr was normal, pancytopenia noted during admission in 08/2024 -Pancytopenia workup ordered during previous admit. No MGUS noted, iron studies were most consistent with inflammation. -WBC normal on last check, mild anemia and thrombocytopenia. No acute interventions needed -CBC will cont to be monitored PRN. No transfusions have been needed this hospital stay so far Doctor attests: I performed a history and physical examination of this patient, developed impression and plan of care. Discussed with dictator. I agree with dictators note, documented as a scribe.
[2024-12-04 20:00] LABS: Glucose,Whole Blood 326 mg/dL (70-110)
--- NOTE | 2024-12-04 23:25 | P.PN ---
Subjective Progress Note Date: 12/04/24 This is a 69-year-old female with medical history significant for asthma COPD, diabetes mellitus, hypertension, hyperlipidemia, acid reflux, migraine, right breast cancer with prior mastectomy. Patient also has history of atrial fibrillation and is anticoagulated with eliquis on an outpatient basis. Patient is also a former smoker. Presented to the hospital for a 2-day history of chest pain and shortness of breath. States that she began vomiting Saturday overnight denies having any diarrhea and denies any fever or chills. She was having some burning like sensation after the vomiting and then developed a right sided chest pain with radiation into the shoulder. She initially presented to [facility] troponin levels were negative there. Patient received Nitropaste morphine was brought down to the [facility] for further cardiac evaluation. Her proBNP is elevated at 4300 her troponin levels here have been negative x 3. Chest x-ray reveals pulmonary vascular congestion. Paitent does state she missed multiple doses of her blood thinner because of the vomiting and GI upset. She is also complaining of worsening lower extremity edema. Patient states the right leg is always weaker than the left due a knee injury. On presentation patient was in atrial fibrillation with RVR and started on IV cardizem. She is also started on IV lasix. Patient takes oral morphine scheduled for chronic pain however has required multiple doses of IV morphine for the right shoulder pain. At this time rating it 5/10. Feels sharp in nature. Cardiology to evaluate the patient. 11/28/2024 Patient evaluated in follow up remains in the ER pending bed on the medical floor. Feels significantly improved as compared to yesterday. The sharp pain in the right side of the chest is now intermittent however still presents with deep inspiration. Patient ahd CTA completed for elevated d dimer which was negative for PE did reveal progression of osseus metastatic disease for imaging in july of 2024. Patient states she had a bone biopsy done a week ago has an appt with Dr Yancey on Saturday at 4 pm. Oncology will be consulted. Cardiology following. Patient remains on IV lasix 40 mg Q12 hour. Sodium level 135, BUN 30, creatinine 1.12. Procalcitonin level 0.24. 11/29/2024 Patient evaluated in follow-up on the medical floor. Patient continues to report significant improvement since admission. Patient is not having any further reports of chest discomfort at this time only with deep inspiration. She is reporting some pain in her right shoulder blade states that it is uncontrolled with her current regimen of oral morphine. Will give an additional one-time dose of IV morphine. Patient has been having nausea and dry heaving today. Compazine has been added in addition to Zofran. She is currently pending evaluation by oncology. Will transition patient to oral Lasix. 11/30/2024 Patient seen today in follow-up in the medical floor. Patient continues to report episodes of emesis and using IV Zofran and IV Compazine alternating for this. She is tolerating regular diet though. Her bowels are moving. Patient does continue to report some right shoulder discomfort worse with deep jeremy athing. She is currently pending bone marrow biopsy report. Urinalysis is unremarkable. Patient's white blood cell count today is 4.55 hemoglobin 9.2, platelet count of 136. Her sodium level today is 134, BUN of 26 creatinine of 1.23. She is urinating adequately and indwelling Berrios catheter was removed over 24 hours ago. Patient did fall yesterday afternoon after receiving a 10 mg dose of IV Compazine when she got up to the bathroom she felt dizzy. She states that she fell on her right knee and was having pain x-ray was completed which reveals no acute changes. Patient states that she feels her knee was swollen and bruised however there is no obvious bruising noted on examination and no significant swelling noted. She has an Nilo wrap in place which she states does help the pain. Will continue to monitor and she may need orthopedic evaluation. Noted the patient does have a prior right total knee arthroplasty. 12/01/2024 Patient is evaluated in follow-up in the medical floor. She continues to report nausea not having any further episodes of emesis and tolerating regular diet. Remains on antiemetic and patient will be going for a brain MRI today. Sodium level today stable at 134 BUN of 25 creatinine 1.12. Patient on oral Lasix 40 mg twice daily. 12/02/2024 Evaluated in follow-up on the medical floor. She continues to report significant pain to her right scapular area and worse with deep inspiration. This could be due to the bony metastatic disease. She also complains of right knee pain post fall has an Nilo wrap bandage in place however pain is not improving and we will ask orthopedic to evaluate this knee as she has had a total knee replacement done in the past on the right side. Brain MRI was completed today and was positive for 2 areas of vasogenic edema within the right foot normal enhancing focal dural thickening. This is on background diffuse dural enhancement. Findings are highly concerning for dural metastasis in the setting of known osseous metastasis. There are few small scattered enhancing osseous lesions within the calvarium concerning for possible metastasis. Nonspecific mild white matter changes without enhancement likely related to small vessel ischemic disease. Labs today reveal a sodium level of 133, potassium 3.8, BUN of 22 creatinine of 1.08. 12/03/2024 Patient is evaluated today in follow up. Continues to report significant pain to the right knee/leg. Additionally having pain in the right sided scapular region. Brain MRI reviewed by oncology and awaiting input from radiation oncologist at this time. Patient remains on IV decadron. Patient continues with significant nausea and vomiting. White blood cell count 4.66, hgb 8.3. Sodium 134, potassium 4.4., BUN 23, creatinine 1.08. 12/04/2024 Patient evaluated today in follow up resting in bed. Continues to report 10/10 pain to the right leg and right scapula. She cannot take a deep breath due to the pain. Remains on high dose IV decadron. Remains nauseas. Rad onc has recommended palliative radiation to the right leg and right shoulder. REVIEW OF SYSTEMS: CONSTITUTIONAL: No fever, no malaise, no fatigue. HEENT: No recent visual problems or hearing problems. Denied any sore throat. CARDIOVASCULAR: Reports right sided chest pain, orthopnea, PND, no palpitations, no syncope. PULMONARY: Reports shortness of breath worse with inspiration, no cough, no hemoptysis. GASTROINTESTINAL: No diarrhea, no nausea, reports vomiting no abdominal pain. NEUROLOGICAL: No headaches, no weakness, no numbness. Weakness worse in the right due to old knee injury. Reports right knee pain PHYSICAL EXAMINATION: GENERAL: The patient is alert and oriented x3, not in any acute distress. Well developed, well nourished. Obese HEENT: Pupils are round and equally reacting to light. EOMI. No scleral icterus. No conjunctival pallor. Normocephalic, atraumatic. No pharyngeal erythema. No thyromegaly. CARDIOVASCULAR: S1 and S2 present. No murmurs, rubs, or gallops. PULMONARY: Chest is clear to auscultation, no wheezing or crackles. Diminished ABDOMEN: Soft, nontender, nondistended, normoactive bowel sounds. No palpable organomegaly. MUSCULOSKELETAL: No joint swelling or deformity. EXTREMITIES: No cyanosis, clubbing, has mild peripheral edema NEUROLOGICAL: Gross neurological examination did not reveal any focal deficits. Generalized weakness SKIN: No rashes. Assessment and plan Chest pain atypical ruled out acute coronary syndrome chest pain is pleuritic in nature could be due to osseous metastatic disease Periprosthetic pathological knee fracture with concern for bony metastasis of the proximal tibia. Fall in the hospital with increased pain to the right knee Vasogenic edema with concern for dural metastatic disease Metastatic breast cancer with right mastectomy maintained on on Arimidex Acute congestive heart failure diastolic dysfunction Atrial fibrillation with rapid ventricular rate recently diagnosed in October, currently rate controlled History of paroxysmal atrial fibrillation anticoag with Eliquis Asthma/COPD with no acute exacerbation Pancytopenia bone marrow biopsy currently pending reports Diabetes mellitus type 2 Hypertension Hyperlipidemia Gastroesophageal reflux disease Former smoker Obesity Plan IV cardizem off; rate controlled Transition to oral Lasix and continue strict intake and output monitoring Nephrology consultation Eliquis has been resumed Oncology has been consulted and awaiting bone marrow biopsy report Patient has been started on IV Decadron with concern for dural involvement. Patient with persistent nausea vomiting. Continue oral morphine twice daily scheduled as well as breakthrough immediate release morphine every 6 hours Pain management has been consulted Protonix twice daily resume Continue Zofran and compazine Oncology recommending hinged knee brace for the right knee for protected weight bearing. Radiation oncology recommending palliative radiation to the right shoulder and leg which has been started. PT/OT consultation The impression and plan of care has been dictated by Claire Kay, Nurse Practitioner as directed. Dr. Joesph MD I have performed a history and physical examination and medical decision making of this patient, discussed the same with the dictator, and agree with the dictators assessment and plan as written, documented as a scribe. Based on total visit time, I have performed more than 50% of this visit. Objective - Vital Signs Vital signs: Vital Signs Temp 98.2 F 12/04/24 19:53 Pulse 86 12/04/24 20:47 Resp 16 12/04/24 19:53 BP 136/91 12/04/24 19:53 Pulse Ox 98 12/04/24 19:53 FiO2 Intake & Output 12/04/24 12/04/24 12/05/24 06:59 18:59 06:59 Intake Total 360 240 Output Total 800 400 100 Balance -800 -40 140 Weight 105 kg 105 kg Intake: Oral 360 240 Output: Urine 800 400 100 Other: Voiding Method Bedside Commode Bedside Commode External Catheter External Catheter # Voids 1 - Labs CBC & Chem 7: 12/03/24 06:05 12/03/24 06:05 Labs: Abnormal Lab Results - Last 24 Hours (Table) 12/04/24 12/04/24 12/04/24 Range/Units 05:53 11:17 18:05 POC Glucose (mg/dL) 280 H 286 H 202 H (70-110) mg/dL 12/04/24 Range/Units 19:59 POC Glucose (mg/dL) 326 H (70-110) mg/dL Assessment and Plan Time with Patient: Less than 30
[2024-12-05 06:00] LABS: Glucose,Whole Blood 286 mg/dL (70-110)
[2024-12-05 06:25] LABS: Basophils # (A) 0.01 10*3/uL (0.00-0.10); Basophils % (A) 0.2 %; HCT 26.5 % (37.2-46.3); HGB 8.1 g/dL (12.0-15.0); Lymphocytes % (A) 9.3 %; MCH 28.1 pg (27.0-32.0); MCHC 30.6 g/dL (32.0-37.0); Mean Platelet Volume 10.7 fL (9.5-12.2); Monocytes # (A) 0.24 10*3/uL (0.20-1.00); Monocytes % (A) 4.5 %; Neutrophils # (A) 4.35 10*3/uL (1.80-7.70); Neutrophils % (A) 81.1 %; Platelet Count 128 10*3/uL (140-440); RBC 2.88 10*6/uL (4.10-5.20); RDW 16.3 % (11.5-14.5); WBC 5.36 10*3/uL (4.50-10.00)
[2024-12-05] MEDS: INSULIN GLARGINE (LANTUS) 100 UNIT/ML SYR SQ SCH ×2 (06:42→20:59)
[2024-12-05 06:58] LABS: African American GFR (CKD) 51 (>60 ml/min/1.73 sqM); Anion Gap 8 mmol/L; Blood Urea Nitrogen 36 mg/dL (7-17); Calcium 7.6 mg/dL (8.4-10.2); Carbon Dioxide 36 mmol/L (22-30); Chloride 88 mmol/L (98-107); Glucose 246 mg/dL (74-99); Non-African American GFR(CKD) 44 (>60 ml/min/1.73 sqM); Potassium 4.3 mmol/L (3.5-5.1); Sodium 132 mmol/L (137-145)
--- NOTE | 2024-12-05 09:59 | P.PN ---
Subjective Patient is seen in follow-up for acute kidney injury. Renal function fairly stable. On oral Lasix. Nonoliguric. Denies chest pain or shortness of breath. Vital signs are stable. General: No acute distress. HEENT: Head exam is unremarkable. On room air. LUNGS: No audible rhonchi or wheezes. HEART: Rate and Rhythm are regular. ABDOMEN: Nontender. EXTREMITITES: Trace edema. Objective - Vital Signs Vital signs: Vital Signs Temp 97.9 F 12/05/24 08:00 Pulse 80 12/05/24 09:12 Resp 20 12/05/24 08:00 BP 154/102 12/05/24 08:00 Pulse Ox 98 12/05/24 08:00 FiO2 Intake & Output 12/04/24 12/05/24 12/05/24 18:59 06:59 18:59 Intake Total 360 240 120 Output Total 400 1300 Balance -40 -1060 120 Weight 105 kg 105.5 kg Intake: Oral 360 240 120 Output: Urine 400 1300 Other: Voiding Method Bedside Commode Bedside Commode Bedside Commode External Catheter External Catheter External Catheter # Voids 1 - Labs CBC & Chem 7: 12/05/24 05:46 12/05/24 05:46 Labs: Abnormal Lab Results - Last 24 Hours (Table) 12/04/24 12/04/24 12/04/24 Range/Units 11:17 18:05 19:59 RBC (4.10-5.20) 10*6/uL Hgb (12.0-15.0) g/dL Hct (37.2-46.3) % MCHC (32.0-37.0) g/dL Plt Count (140-440) 10*3/uL Immature Gran # (0.00-0.04) 10*3/uL Lymphocytes # (0.90-5.00) 10*3/uL Eosinophils # (0.04-0.35) 10*3/uL Sodium (137-145) mmol/L Chloride (98-107) mmol/L Carbon Dioxide (22-30) mmol/L BUN (7-17) mg/dL Creatinine (0.52-1.04) mg/dL Glucose (74-99) mg/dL POC Glucose (mg/dL) 286 H 202 H 326 H (70-110) mg/dL Calcium (8.4-10.2) mg/dL 12/05/24 12/05/24 12/05/24 Range/Units 05:46 05:46 05:58 RBC 2.88 L (4.10-5.20) 10*6/uL Hgb 8.1 L (12.0-15.0) g/dL Hct 26.5 L (37.2-46.3) % MCHC 30.6 L (32.0-37.0) g/dL Plt Count 128 L (140-440) 10*3/uL Immature Gran # 0.26 H (0.00-0.04) 10*3/uL Lymphocytes # 0.50 L (0.90-5.00) 10*3/uL Eosinophils # 0.00 L (0.04-0.35) 10*3/uL Sodium 132 L (137-145) mmol/L Chloride 88 L (98-107) mmol/L Carbon Dioxide 36 H (22-30) mmol/L BUN 36 H (7-17) mg/dL Creatinine 1.25 H (0.52-1.04) mg/dL Glucose 246 H (74-99) mg/dL POC Glucose (mg/dL) 286 H (70-110) mg/dL Calcium 7.6 L (8.4-10.2) mg/dL Assessment and Plan Plan: Assessment: 1. Acute kidney injury secondary to hemodynamic ATN and NSAIDs. No proteinuria on UA. Renal function fairly stable with creatinine 1.25 today. 2. Metastatic breast cancer status post right mastectomy. Started radiation therapy December 04, 2024. Also on Arimidex. 3. Volume overload. On oral Lasix. 4. Anemia. Rule out iron deficiency. 5. Benign hypertension. Plan: Maintain Lasix. Avoid nephrotoxins. Check iron studies. Repeat labs in the morning. Check chest x-ray.
--- NOTE | 2024-12-05 11:24 | XR ---
EXAMINATION TYPE: XR chest 1V DATE OF EXAM: 12/05/2024 COMPARISON: 10/24/2024 CLINICAL INDICATION: Female, 69 years old with history of sob; TECHNIQUE: Single frontal view of the chest is obtained. FINDINGS: Small right there is mild but decreased pulmonary vascular congestion compared to the prior study. The small right pleural effusion has resolved. There is persistent small to moderate left ple ural effusion. No pneumothorax. There is a reverse left shoulder prosthesis. IMPRESSION: No acute cardiopulmonary disease likely CHF which has improved compared to the prior study as describ ed above. [facility], , 12/05/2024 11:22 AM
[2024-12-05 12:09] LABS: Glucose,Whole Blood 302 mg/dL (70-110)
[2024-12-05 13:14] LABS: % Iron Saturation 27.27 (12.00-45.00)
--- NOTE | 2024-12-05 14:42 | P.PN ---
Subjective Progress Note Date: 12/05/24 Interval History: This is a 69-year-old female with medical history significant for asthma COPD, diabetes mellitus, hypertension, hyperlipidemia, acid reflux, migraine, right breast cancer with prior mastectomy. Patient also has history of atrial fibrillation and is anticoagulated with eliquis on an outpatient basis. Patient is also a former smoker. Presented to the hospital for a 2-day history of chest pain and shortness of breath. States that she began vomiting Saturday overnight denies having any diarrhea and denies any fever or chills. She was having some burning like sensation after the vomiting and then developed a right sided chest pain with radiation into the shoulder. She initially presented to [facility] troponin levels were negative there. Patient received Nitropaste morphine was brought down to the [facility] for further cardiac evaluation. Her proBNP is elevated at 4300 her troponin levels here have been negative x 3. Chest x-ray reveals pulmonary vascular congestion. Paitent does state she missed multiple doses of her blood thinner because of the vomiting and GI upset. She is also complaining of worsening lower extremity edema. Patient states the right leg is always weaker than the left due a knee injury. On presentation patient was in atrial fibrillation with RVR and started on IV cardizem. She is also started on IV lasix. Patient takes oral morphine scheduled for chronic pain however has required multiple doses of IV morphine for the right shoulder pain. At this time rating it 5/10. Feels sharp in nature. Cardiology to evaluate the patient. 11/28/2024 Patient evaluated in follow up remains in the ER pending bed on the medical floor. Feels significantly improved as compared to yesterday. The sharp pain in the right side of the chest is now intermittent however still presents with deep inspiration. Patient ahd CTA completed for elevated d dimer which was negative for PE did reveal progression of osseus metastatic disease for imaging in july of 2024. Patient states she had a bone biopsy done a week ago has an appt with Dr Yancey on Saturday at 4 pm. Oncology will be consulted. Cardiology following. Patient remains on IV lasix 40 mg Q12 hour. Sodium level 135, BUN 30, creatinine 1.12. Procalcitonin level 0.24. 11/29/2024 Patient evaluated in follow-up on the medical floor. Patient continues to report significant improvement since admission. Patient is not having any further reports of chest discomfort at this time only with deep inspiration. She is reporting some pain in her right shoulder blade states that it is uncontrolled with her current regimen of oral morphine. Will give an additional one-time dose of IV morphine. Patient has been having nausea and dry heaving today. Compazine has been added in addition to Zofran. She is currently pending evaluation by oncology. Will transition patient to oral Lasix. 11/30/2024 Patient seen today in follow-up in the medical floor. Patient continues to report episodes of emesis and using IV Zofran and IV Compazine alternating for this. She is tolerating regular diet though. Her bowels are moving. Patient does continue to report some right shoulder discomfort worse with deep breathing. She is currently pending bone marrow biopsy report. Urinalysis is unremarkable. Patient's white blood cell count today is 4.55 hemoglobin 9.2, platelet count of 136. Her sodium level today is 134, BUN of 26 creatinine of 1.23. She is urinating adequately and indwelling Berrios catheter was removed over 24 hours ago. Patient did fall yesterday afternoon after receiving a 10 mg dose of IV Compazine when she got up to the bathroom she felt dizzy. She states that she fell on her right knee and was having pain x-ray was completed which reveals no acute changes. Patient states that she feels her knee was swollen and bruised however there is no obvious bruising noted on examination and no significant swelling noted. She has an Nilo wrap in place which she states does help the pain. Will continue to monitor and she may need orthopedic evaluation. Noted the patient does have a prior right total knee arthroplasty. 12/01/2024 Patient is evaluated in follow-up in the medical floor. She continues to report nausea not having any further episodes of emesis and tolerating regular diet. Remains on antiemetic and patient will be going for a brain MRI today. Sodium level today stable at 134 BUN of 25 creatinine 1.12. Patient on oral Lasix 40 mg twice daily. 12/02/2024 Evaluated in follow-up on the medical floor. She continues to report significant pain to her right scapular area and worse with deep inspiration. This could be due to the bony metastatic disease. She also complains of right knee pain post fall has an Nilo wrap bandage in place however pain is not improving and we will ask orthopedic to evaluate this knee as she has had a total knee replacement done in the past on the right side. Brain MRI was completed today and was positive for 2 areas of vasogenic edema within the right foot normal enhancing focal dural thickening. This is on background diffuse dural enhancement. Findings are highly concerning for dural metastasis in the setting of known osseous metastasis. There are few small scattered enhancing osseous lesions within the calvarium concerning for possible metastasis. Nonspecific mild white matter changes without enhancement likely related to small vessel ischemic disease. Labs today reveal a sodium level of 133, pot assium 3.8, BUN of 22 creatinine of 1.08. 12/03/2024 Patient is evaluated today in follow up. Continues to report significant pain to the right knee/leg. Additionally having pain in the right sided scapular region. Brain MRI reviewed by oncology and awaiting input from radiation oncologist at this time. Patient remains on IV decadron. Patient continues with significant nausea and vomiting. White blood cell count 4.66, hgb 8.3. Sodium 134, potassium 4.4., BUN 23, creatinine 1.08. 12/04/2024 Patient evaluated today in follow up resting in bed. Continues to report 10/10 pain to the right leg and right scapula. She cannot take a deep breath due to the pain. Remains on high dose IV decadron. Remains nauseas. Rad onc has recommended palliative radiation to the right leg and right shoulder. 12/05/2024 Patient was seen and examined today. Afebrile, heart rate 89, respiratory rate 20, blood pressure 139/85, saturating 95% on room air. Sitting comfortably in bed. Pain is controlled. On baclofen, MS Contin and MS IR. Underwent radiation yesterday. Oncology, radiation oncology on board and following, on IV Decadron. Nephrology following for acute kidney injury, recommended to maintain Lasix, patient fluid overloaded. WBCs 5.3, hemoglobin 8.1, platelet 128. BUN 36 creatinine 1.25. Bone marrow biopsy pending. Iron studies showed high iron, normal iron, TIBC. Assessment and plan: Chest pain atypical ruled out acute coronary syndrome chest pain is pleuritic in nature could be due to osseous metastatic disease Periprosthetic pathological knee fracture with concern for bony metastasis of the proximal tibia. Fall in the hospital with increased pain to the right knee Vasogenic edema with concern for dural metastatic disease Metastatic breast cancer with right mastectomy maintained on on Arimidex Acute congestive heart failure diastolic dysfunction Atrial fibrillation with rapid ventricular rate recently diagnosed in October, currently rate controlled History of paroxysmal atrial fibrillation anticoag with Eliquis Asthma/COPD with no acute exacerbation Pancytopenia bone marrow biopsy currently pending reports Diabetes mellitus type 2 Hypertension Hyperlipidemia Gastroesophageal reflux disease Former smoker Obesity Plan IV cardizem off; rate controlled Transition to oral Lasix and continue strict intake and output monitoring Nephrology consultation--on p.o. Lasix now Eliquis has been resumed Oncology has been consulted and awaiting bone marrow biopsy report Patient has been started on IV Decadron with concern for dural involvement. Patient with persistent nausea vomiting. Continue oral morphine twice daily scheduled as well as breakthrough immediate release morphine every 6 hours Pain management has been consulted Protonix twice daily resume Continue Zofran and compazine Orthopedic consulted. Oncology recommending hinged knee brace for the right knee for protected weight bearing. Radiation oncology recommending palliative radiation to the right shoulder and leg which has been started. PT/OT consultation DVT prophylaxis: Eliquis Monitor vital signs and labs Labs and medication were reviewed. Continue same treatment. Further recommendations as per clinical course of the patient PHYSICAL EXAMINATION: GENERAL: The patient is A&O x3, NAD HEENT: EOMI, Sclerae anicteric, Moist Mucous membranes Neck: Supple, Non tender, No JVD PULMONARY: Equal breath souds B/L, No wheezing, No crackles. CARDIOVASCULAR: S1, S2 present. No murmurs, rubs, or gallops. ABDOMEN: Soft, nontender, nondistended, normoactive bowel sounds. No guarding or rebound tenderness. MUSCULOSKELETAL: No edema, No cyanosis. No clubbing. Normal ROM. Intact peripheral pulses. NEUROLOGICAL: CN 2-12 grossly intact. No FND Skin: No Rash REVIEW OF SYSTEMS: CONSTITUTIONAL: No fever or chills. CARDIOVASCULAR: No chest pain, palpitations or syncope. PULMONARY: No shortness of breath, no cough, sore throat. GASTROINTESTINAL: No nausea, vomiting, diarrhea, abdominal pain. : No Dysuria, urgency, frequency. Extremities: No edema. NEUROLOGICAL: No headaches, no weakness, or numbness Dictation was produced using [employer] software. please excuse any grammatical, word or spelling errors. Objective - Vital Signs Vital signs: Vital Signs Temp 98.2 F 04/19/25 12:00 Pulse 89 12/05/24 12:00 Resp 20 12/05/24 12:00 BP 139/85 12/05/24 12:00 Pulse Ox 95 12/05/24 12:00 FiO2 Intake & Output 12/04/24 12/05/24 12/05/24 18:59 06:59 18:59 Intake Total 360 240 120 Output Total 400 1300 Balance -40 -1060 120 Weight 105 kg 105.5 kg Intake: Oral 360 240 120 Output: Urine 400 1300 Other: Voiding Method Bedside Commode Bedside Commode Bedside Commode External Catheter External Catheter External Catheter # Voids 1 - Labs CBC & Chem 7: 12/05/24 05:46 12/05/24 05:46 Labs: Abnormal Lab Results - Last 24 Hours (Table) 12/04/24 12/04/24 12/05/24 Range/Units 18:05 19:59 05:46 RBC 2.88 L (4.10-5.20) 10*6/uL Hgb 8.1 L (12.0-15.0) g/dL Hct 26.5 L (37.2-46.3) % MCHC 30.6 L (32.0-37.0) g/dL Plt Count 128 L (140-440) 10*3/uL Immature Gran # 0.26 H (0.00-0.04) 10*3/uL Lymphocytes # 0.50 L (0.90-5.00) 10*3/uL Eosinophils # 0.00 L (0.04-0.35) 10*3/uL Sodium (137-145) mmol/L Chloride (98-107) mmol/L Carbon Dioxide (22-30) mmol/L BUN (7-17) mg/dL Creatinine (0.52-1.04) mg/dL Glucose (74-99) mg/dL POC Glucose (mg/dL) 202 H 326 H (70-110) mg/dL Calcium (8.4-10.2) mg/dL Ferritin (10.0-291.0) ng/mL 12/05/24 12/05/24 12/05/24 Range/Units 05:46 05:46 05:58 RBC (4.10-5.20) 10*6/uL Hgb (12.0-15.0) g/dL Hct (37.2-46.3) % MCHC (32.0-37.0) g/dL Plt Count (140-440) 10*3/uL Immature Gran # (0.00-0.04) 10*3/uL Lymphocytes # (0.90-5.00) 10*3/uL Eosinophils # (0.04-0.35) 10*3/uL Sodium 132 L (137-145) mmol/L Chloride 88 L (98-107) mmol/L Carbon Dioxide 36 H (22-30) mmol/L BUN 36 H (7-17) mg/dL Creatinine 1.25 H (0.52-1.04) mg/dL Glucose 246 H (74-99) mg/dL POC Glucose (mg/dL) 286 H (70-110) mg/dL Calcium 7.6 L (8.4-10.2) mg/dL Ferritin 861.0 H (10.0-291.0) ng/mL 12/05/24 Range/Units 11:58 RBC (4.10-5.20) 10*6/uL Hgb (12.0-15.0) g/dL Hct (37.2-46.3) % MCHC (32.0-37.0) g/dL Plt Count (140-440) 10*3/uL Immature Gran # (0.00-0.04) 10*3/uL Lymphocytes # (0.90-5.00) 10*3/uL Eosinophils # (0.04-0.35) 10*3/uL Sodium (137-145) mmol/L Chloride (98-107) mmol/L Carbon Dioxide (22-30) mmol/L BUN (7-17) mg/dL Creatinine (0.52-1.04) mg/dL Glucose (74-99) mg/dL POC Glucose (mg/dL) 302 H (70-110) mg/dL Calcium (8.4-10.2) mg/dL Ferritin (10.0-291.0) ng/mL
[2024-12-05 16:59] LABS: Glucose,Whole Blood 263 mg/dL (70-110)
[2024-12-05 20:01] LABS: Glucose,Whole Blood 294 mg/dL (70-110)
[2024-12-05] MEDS: MORPHINE SULFATE 2 MG/ML SYRINGE IVP PRN (23:05)
[2024-12-06 06:07] LABS: Glucose,Whole Blood 339 mg/dL (70-110)
[2024-12-06 07:41] LABS: Basophils # (A) 0.01 10*3/uL (0.00-0.10); Basophils % (A) 0.2 %; HCT 25.9 % (37.2-46.3); Lymphocytes # (A) 0.49 10*3/uL (0.90-5.00); Lymphocytes % (A) 10.4 %; MCH 28.2 pg (27.0-32.0); MCHC 30.9 g/dL (32.0-37.0); MCV 91.2 fL (80.0-97.0); Mean Platelet Volume 10.9 fL (9.5-12.2); Monocytes # (A) 0.22 10*3/uL (0.20-1.00); Monocytes % (A) 4.7 %; Neutrophils # (A) 3.79 10*3/uL (1.80-7.70); Neutrophils % (A) 80.5 %; Platelet Count 119 10*3/uL (140-440); RBC 2.84 10*6/uL (4.10-5.20); WBC 4.71 10*3/uL (4.50-10.00)
[2024-12-06 08:02] LABS: African American GFR (CKD) 52 (>60 ml/min/1.73 sqM); Anion Gap 5 mmol/L; Blood Urea Nitrogen 37 mg/dL (7-17); Calcium 6.9 mg/dL (8.4-10.2); Carbon Dioxide 37 mmol/L (22-30); Chloride 89 mmol/L (98-107); Glucose 329 mg/dL (74-99); Non-African American GFR(CKD) 45 (>60 ml/min/1.73 sqM); Potassium 4.4 mmol/L (3.5-5.1); Sodium 131 mmol/L (137-145)
[2024-12-06] MEDS: MORPHINE SULFATE ER 30 MG TABLET PO SCH (08:14)
--- NOTE | 2024-12-06 10:57 | P.PN ---
Subjective Patient is seen in follow-up for acute kidney injury. Renal function fairly stable. On oral Lasix. Nonoliguric. Denies chest pain or shortness of breath. Vital signs are stable. General: No acute distress. HEENT: Head exam is unremarkable. On room air. LUNGS: No audible rhonchi or wheezes. HEART: Rate and Rhythm are regular. ABDOMEN: Nontender. EXTREMITITES: Trace edema. Objective - Vital Signs Vital signs: Vital Signs Temp 98.7 F 12/06/24 07:55 Pulse 91 12/06/24 09:13 Resp 17 12/06/24 07:55 BP 119/75 12/06/24 07:55 Pulse Ox 96 12/06/24 07:55 FiO2 Intake & Output 12/05/24 12/06/24 12/06/24 18:59 06:59 18:59 Intake Total 960 500 410 Output Total 1450 1250 800 Balance -490 -750 -390 Weight 104.5 kg Intake: IV 10 Invasive Line 3 10 Oral 960 500 400 Output: Urine 1450 1250 800 Other: Voiding Method Bedside Commode Bedside Commode Bedside Commode External Catheter External Catheter External Catheter - Labs CBC & Chem 7: 12/06/24 06:28 12/06/24 06:28 Labs: Abnormal Lab Results - Last 24 Hours (Table) 12/05/24 12/05/24 12/05/24 Range/Units 05:46 11:58 16:40 RBC (4.10-5.20) 10*6/uL Hgb (12.0-15.0) g/dL Hct (37.2-46.3) % MCHC (32.0-37.0) g/dL Plt Count (140-440) 10*3/uL Immature Gran # (0.00-0.04) 10*3/uL Lymphocytes # (0.90-5.00) 10*3/uL Eosinophils # (0.04-0.35) 10*3/uL Sodium (137-145) mmol/L Chloride (98-107) mmol/L Carbon Dioxide (22-30) mmol/L BUN (7-17) mg/dL Creatinine (0.52-1.04) mg/dL Glucose (74-99) mg/dL POC Glucose (mg/dL) 302 H 263 H (70-110) mg/dL Calcium (8.4-10.2) mg/dL Ferritin 861.0 H (10.0-291.0) ng/mL 12/05/24 12/06/24 12/06/24 Range/Units 19:59 06:05 06:28 RBC (4.10-5.20) 10*6/uL Hgb (12.0-15.0) g/dL Hct (37.2-46.3) % MCHC (32.0-37.0) g/dL Plt Count (140-440) 10*3/uL Immature Gran # (0.00-0.04) 10*3/uL Lymphocytes # (0.90-5.00) 10*3/uL Eosinophils # (0.04-0.35) 10*3/uL Sodium 131 L (137-145) mmol/L Chloride 89 L (98-107) mmol/L Carbon Dioxide 37 H (22-30) mmol/L BUN 37 H (7-17) mg/dL Creatinine 1.24 H (0.52-1.04) mg/dL Glucose 329 H (74-99) mg/dL POC Glucose (mg/dL) 294 H 339 H (70-110) mg/dL Calcium 6.9 L (8.4-10.2) mg/dL Ferritin (10.0-291.0) ng/mL 12/06/24 Range/Units 06:28 RBC 2.84 L (4.10-5.20) 10*6/uL Hgb 8.0 L (12.0-15.0) g/dL Hct 25.9 L (37.2-46.3) % MCHC 30.9 L (32.0-37.0) g/dL Plt Count 119 L (140-440) 10*3/uL Immature Gran # 0.20 H (0.00-0.04) 10*3/uL Lymphocytes # 0.49 L (0.90-5.00) 10*3/uL Eosinophils # 0.00 L (0.04-0.35) 10*3/uL Sodium (137-145) mmol/L Chloride (98-107) mmol/L Carbon Dioxide (22-30) mmol/L BUN (7-17) mg/dL Creatinine (0.52-1.04) mg/dL Glucose (74-99) mg/dL POC Glucose (mg/dL) (70-110) mg/dL Calcium (8.4-10.2) mg/dL Ferritin (10.0-291.0) ng/mL Assessment and Plan Plan: Assessment: 1. Acute kidney injury secondary to hemodynamic ATN and NSAIDs. No proteinuria on UA. Renal function fairly stable with creatinine 1.24 today. 2. Metastatic breast cancer status post right mastectomy. Started radiation therapy December 04, 2024. Also on Arimidex. 3. Volume overload. On oral Lasix. 4. Anemia. Iron replete. 5. Benign hypertension. 6. Hyponatremia, hypervolemic. Also component of hypertonicity from hyperglyce paula. Plan: Maintain Lasix. Avoid nephrotoxins. Repeat labs in the morning. Blood glucose control.
[2024-12-06 11:43] LABS: Glucose,Whole Blood 274 mg/dL (70-110)
--- NOTE | 2024-12-06 13:49 | P.PN ---
Subjective Interval History: This is a 69-year-old female with medical history significant for asthma COPD, diabetes mellitus, hypertension, hyperlipidemia, acid reflux, migraine, right breast cancer with prior mastectomy. Patient also has history of atrial fi brillation and is anticoagulated with eliquis on an outpatient basis. Patient is also a former smoker. Presented to the hospital for a 2-day history of chest pain and shortness of breath. States that she began vomiting Saturday overnight denies having any diarrhea and denies any fever or chills. She was having some burning like sensation after the vomiting and then developed a right sided chest pain with radiation into the shoulder. She initially presented to [facility] troponin levels were negative there. Patient received Nitropaste morphine was brought down to the [facility] for further cardiac evaluation. Her proBNP is elevated at 4300 her troponin levels here have been negative x 3. Chest x-ray reveals pulmonary vascular congestion. Paitent does state she missed multiple doses of her blood thinner because of the vomiting and GI upset. She is also complaining of worsening lower extremity edema. Patient states the right leg is always weaker than the left due a knee injury. On presentation patient was in atrial fibrillation with RVR and started on IV cardizem. She is also started on IV lasix. Patient takes oral morphine scheduled for chronic pain however has required multiple doses of IV morphine for the right shoulder pain. At this time rating it 5/10. Feels sharp in nature. Cardiology to evaluate the patient. 11/28/2024 Patient evaluated in follow up remains in the ER pending bed on the medical floor. Feels significantly improved as compared to yesterday. The sharp pain in the right side of the chest is now intermittent however still presents with deep inspiration. Patient ahd CTA completed for elevated d dimer which was negative for PE did reveal progression of osseus metastatic disease for imaging in july of 2024. Patient states she had a bone biopsy done a week ago has an appt with Dr Yancey on Saturday at 4 pm. Oncology will be consulted. Cardiology following. Patient remains on IV lasix 40 mg Q12 hour. Sodium level 135, BUN 30, creatinine 1.12. Procalcitonin level 0.24. 11/29/2024 Patient evaluated in follow-up on the medical floor. Patient continues to report significant improvement since admission. Patient is not having any f urther reports of chest discomfort at this time only with deep inspiration. She is reporting some pain in her right shoulder blade states that it is uncontrolled with her current regimen of oral morphine. Will give an additional one-time dose of IV morphine. Patient has been having nausea and dry heaving today. Compazine has been added in addition to Zofran. She is currently pending evaluation by oncology. Will transition patient to oral Lasix. 11/30/2024 Patient seen today in follow-up in the medical floor. Patient continues to report episodes of emesis and using IV Zofran and IV Compazine alternating for this. She is tolerating regular diet though. Her bowels are moving. Patient does continue to report some right shoulder discomfort worse with deep breathing. She is currently pending bone marrow biopsy report. Urinalysis is unremarkable. Patient's white blood cell count today is 4.55 hemoglobin 9.2, platelet count of 136. Her sodium level today is 134, BUN of 26 creatinine of 1.23. She is urinating adequately and indwelling Berrios catheter was removed over 24 hours ago. Patient did fall yesterday afternoon after receiving a 10 mg dose of IV Compazine when she got up to the bathroom she felt dizzy. She states that she fell on her right knee and was having pain x-ray was completed which reveals no acute changes. Patient states that she feels her knee was swollen and bruised however there is no obvious bruising noted on examination and no significant swelling noted. She has an Nilo wrap in place which she states does help the pain. Will continue to monitor and she may need orthopedic evaluation. Noted the patient does have a prior right total knee arthroplasty. 12/01/2024 Patient is evaluated in follow-up in the medical floor. She continues to report nausea not having any further episodes of emesis and tolerating regular diet. Remains on antiemetic and patient will be going for a brain MRI today. Sodium level today stable at 134 BUN of 25 creatinine 1.12. Patient on oral Lasix 40 mg twice daily. 12/02/2024 Evaluated in follow-up on the medical floor. She continues to report significant pain to her right scapular area and worse with deep inspiration. This could be due to the bony metastatic disease. She also complains of right knee pain post fall has an Nilo wrap bandage in place however pain is not improving and we will ask orthopedic to evaluate this knee as she has had a total knee replacement done in the past on the right side. Brain MRI was completed today and was positive for 2 areas of vasogenic edema within the right foot normal enhancing focal dural thickening. This is on background diffuse dural enhancement. Findings are highly concerning for dural metastasis in the setting of known osseous metastasis. There are few small scattered enhancing osseous lesions within the calvarium concerning for possible metastasis. Nonspecific mild white matter changes without enhancement likely related to small vessel ischemic disease. Labs today reveal a sodium level of 133, potassium 3.8, BUN of 22 creatinine of 1.08. 12/03/2024 Patient is evaluated today in follow up. Continues to report significant pain to the right knee/leg. Additionally having pain in the right sided scapular region. Brain MRI reviewed by oncology and awaiting input from radiation oncologist at this time. Patient remains on IV decadron. Patient continues with significant nausea and vomiting. White blood cell count 4.66, hgb 8.3. Sodium 134, potassium 4.4., BUN 23, creatinine 1.08. 12/04/2024 Patient evaluated today in follow up resting in bed. Continues to report 10/10 pain to the right leg and right scapula. She cannot take a deep breath due to the pain. Remains on high dose IV decadron. Remains nauseas. Rad onc has recommended palliative radiation to the right leg and right shoulder. 12/05/2024 Patient was seen and examined today. Afebrile, heart rate 89, respiratory rate 20, blood pressure 139/85, saturating 95% on room air. Sitting comfortably in bed. Pain is controlled. On baclofen, MS Contin and MS IR. Underwent r adiation yesterday. Oncology, radiation oncology on board and following, on IV Decadron. Nephrology following for acute kidney injury, recommended to maintain Lasix, patient fluid overloaded. WBCs 5.3, hemoglobin 8.1, platelet 128. BUN 36 creatinine 1.25. Bone marrow biopsy pending. Iron studies showed high iron, normal iron, TIBC. 12/06/24-- Patient was seen and examined today. Patient is afebrile, heart rate 88, respiratory rate 17, blood pressure 124/77, saturating 95% on room air. WBCs 4.7 hemoglobin 8.0, platelet 119. Sodium 131 potassium 4.4 CO2 37 BUN 37 creatinine 1.24. Calcium 6.9. Magnesium 2.0. Pain was uncontrolled overnight, required IV morphine. Remains on Lasix per nephrology. Assessment and plan: Chest pain atypical ruled out acute coronary syndrome chest pain is pleuritic in nature could be due to osseous metastatic disease Periprosthetic pathological knee fracture with concern for bony metastasis of the proximal tibia. Fall in the hospital with increased pain to the right knee Vasogenic edema with concern for dural metastatic disease Metastatic breast cancer with right mastectomy maintained on on Arimidex Acute congestive heart failure diastolic dysfunction Atrial fibrillation with rapid ventricular rate recently diagnosed in October, currently rate controlled History of paroxysmal atrial fibrillation anticoag with Eliquis Asthma/COPD with no acute exacerbation Pancytopenia bone marrow biopsy currently pending reports Diabetes mellitus type 2 Hypertension Hyperlipidemia Gastroesophageal reflux disease Former smoker Obesity Plan IV cardizem off; rate controlled Transition to oral Lasix and continue strict intake and output monitoring Nephrology consultation--on p.o. Lasix now Eliquis has been resumed Oncology has been consulted and awaiting bone marrow biopsy report Patient has been started on IV Decadron with concern for dural involvement. Patient with persistent nausea vomiting. Continue oral morphine twice daily scheduled as well as breakthrough immediate release morphine every 6 hours Pain management has been consulted Protonix twice daily resume Continue Zofran and compazine Orthopedic consulted. Oncology recommending hinged knee brace for the right knee for protected weight bearing. Radiation oncology recommending palliative radiation to the right shoulder and leg which has been started. PT/OT consultation DVT prophylaxis: Eliquis Monitor vital signs and labs Labs and medication were reviewed. Continue same treatment. Further recommendations as per clinical course of the patient PHYSICAL EXAMINATION: GENERAL: The patient is A&O x3, NAD HEENT: EOMI, Sclerae anicteric, Moist Mucous membranes Neck: Supple, Non tender, No JVD PULMONARY: Equal breath souds B/L, No wheezing, No crackles. CARDIOVASCULAR: S1, S2 present. No murmurs, rubs, or gallops. ABDOMEN: Soft, nontender, nondistended, normoactive bowel sounds. No guarding or rebound tenderness. MUSCULOSKELETAL: No edema, No cyanosis. No clubbing. Normal ROM. Intact peripheral pulses. NEUROLOGICAL: CN 2-12 grossly intact. No FND Skin: No Rash REVIEW OF SYSTEMS: CONSTITUTIONAL: No fever or chills. CARDIOVASCULAR: No chest pain, palpitations or syncope. PULMONARY: No shortness of breath, no cough, sore throat. GASTROINTESTINAL: No nausea, vomiting, diarrhea, abdominal pain. : No Dysuria, urgency, frequency. Extremities: No edema. NEUROLOGICAL: No headaches, no weakness, or numbness Dictation was produced using [employer] dictation software. please excuse any grammatical, word or spelling errors. Objective - Vital Signs Vital signs: Vital Signs Temp 98.6 F 12/06/24 11:23 Pulse 88 12/06/24 13:03 Resp 17 12/06/24 11:23 BP 124/77 12/06/24 11:23 Pulse Ox 95 12/06/24 11:23 FiO2 Intake & Output 12/05/24 12/06/24 12/06/24 18:59 06:59 18:59 Intake Total 960 500 410 Output Total 1450 1250 800 Balance -490 -750 -390 Weight 104.5 kg Intake: IV 10 Invasive Line 3 10 Oral 960 500 400 Output: Urine 1450 1250 800 Other: Voiding Method Bedside Commode Bedside Commode Bedside Commode External Catheter External Catheter External Catheter - Labs CBC & Chem 7: 12/06/24 06:28 12/06/24 06:28 Labs: Abnormal Lab Results - Last 24 Hours (Table) 12/05/24 12/05/24 12/06/24 Range/Units 16:40 19:59 06:05 RBC (4.10-5.20) 10*6/uL Hgb (12.0-15.0) g/dL Hct (37.2-46.3) % MCHC (32.0-37.0) g/dL Plt Count (140-440) 10*3/uL Immature Gran # (0.00-0.04) 10*3/uL Lymphocytes # (0.90-5.00) 10*3/uL Eosinophils # (0.04-0.35) 10*3/uL Sodium (137-145) mmol/L Chloride (98-107) mmol/L Carbon Dioxide (22-30) mmol/L BUN (7-17) mg/dL Creatinine (0.52-1.04) mg/dL Glucose (74-99) mg/dL POC Glucose (mg/dL) 263 H 294 H 339 H (70-110) mg/dL Calcium (8.4-10.2) mg/dL 12/06/24 12/06/24 12/06/24 Range/Units 06:28 06:28 11:27 RBC 2.84 L (4.10-5.20) 10*6/uL Hgb 8.0 L (12.0-15.0) g/dL Hct 25.9 L (37.2-46.3) % MCHC 30.9 L (32.0-37.0) g/dL Plt Count 119 L (140-440) 10*3/uL Immature Gran # 0.20 H (0.00-0.04) 10*3/uL Lymphocytes # 0.49 L (0.90-5.00) 10*3/uL Eosinophils # 0.00 L (0.04-0.35) 10*3/uL Sodium 131 L (137-145) mmol/L Chloride 89 L (98-107) mmol/L Carbon Dioxide 37 H (22-30) mmol/L BUN 37 H (7-17) mg/dL Creatinine 1.24 H (0.52-1.04) mg/dL Glucose 329 H (74-99) mg/dL POC Glucose (mg/dL) 274 H (70-110) mg/dL Calcium 6.9 L (8.4-10.2) mg/dL
[2024-12-06 17:07] LABS: Glucose,Whole Blood 268 mg/dL (70-110)
[2024-12-06 20:02] LABS: Glucose,Whole Blood 388 mg/dL (70-110)
[2024-12-07 06:08] LABS: Glucose,Whole Blood 318 mg/dL (70-110)
[2024-12-07 07:09] LABS: African American GFR (CKD) 63 (>60 ml/min/1.73 sqM); Blood Urea Nitrogen 36 mg/dL (7-17); Calcium 6.5 mg/dL (8.4-10.2); Chloride 88 mmol/L (98-107); Glucose 268 mg/dL (74-99); Non-African American GFR(CKD) 54 (>60 ml/min/1.73 sqM); Potassium 4.1 mmol/L (3.5-5.1); Sodium 133 mmol/L (137-145)
[2024-12-07 07:17] LABS: Anion Gap 8 mmol/L
[2024-12-07 07:21] LABS: Carbon Dioxide 37 mmol/L (22-30)
[2024-12-07 07:37] LABS: Basophils # (A) 0.01 10*3/uL (0.00-0.10); Basophils % (A) 0.2 %; HCT 26.8 % (37.2-46.3); HGB 8.4 g/dL (12.0-15.0); Lymphocytes # (A) 0.56 10*3/uL (0.90-5.00); Lymphocytes % (A) 10.2 %; MCH 28.3 pg (27.0-32.0); MCHC 31.3 g/dL (32.0-37.0); MCV 90.2 fL (80.0-97.0); Mean Platelet Volume 10.7 fL (9.5-12.2); Monocytes # (A) 0.36 10*3/uL (0.20-1.00); Monocytes % (A) 6.6 %; Neutrophils # (A) 4.29 10*3/uL (1.80-7.70); Neutrophils % (A) 78.4 %; Platelet Count 119 10*3/uL (140-440); RBC 2.97 10*6/uL (4.10-5.20); RDW 16.2 % (11.5-14.5); WBC 5.47 10*3/uL (4.50-10.00)
--- NOTE | 2024-12-07 10:27 | P.PN ---
Subjective Patient is seen in follow-up for acute kidney injury. Renal function better. On oral Lasix. Nonoliguric. Denies chest pain or shortness of breath. Vital signs are stable. General: No acute distress. HEENT: Head exam is unremarkable. On room air. LUNGS: No audible rhonchi or wheezes. HEART: Rate and Rhythm are regular. ABDOMEN: Nontender. EXTREMITITES: Trace edema. Objective - Vital Signs Vital signs: Vital Signs Temp 98 F 12/07/24 08:58 Pulse 99 12/07/24 09:45 Resp 17 12/07/24 08:58 BP 121/63 12/07/24 08:58 Pulse Ox 94 L 12/07/24 08:58 FiO2 Intake & Output 12/06/24 12/07/24 12/07/24 18:59 06:59 18:59 Intake Total 1140 10 Output Total 1350 1500 550 Balance -210 -1500 -540 Weight 103.5 kg Intake: IV 20 10 Invasive Line 3 20 10 Oral 1120 Output: Urine 1350 1500 550 Other: Voiding Method Bedside Commode Bedside Commode Bedside Commode External Catheter External Catheter External Catheter # Voids 1 - Labs CBC & Chem 7: 12/07/24 05:57 12/07/24 05:57 Labs: Abnormal Lab Results - Last 24 Hours (Table) 12/06/24 12/06/24 12/06/24 Range/Units 11:27 16:50 20:00 RBC (4.10-5.20) 10*6/uL Hgb (12.0-15.0) g/dL Hct (37.2-46.3) % MCHC (32.0-37.0) g/dL Plt Count (140-440) 10*3/uL Immature Gran # (0.00-0.04) 10*3/uL Lymphocytes # (0.90-5.00) 10*3/uL Eosinophils # (0.04-0.35) 10*3/uL Sodium (137-145) mmol/L Chloride (98-107) mmol/L Carbon Dioxide (22-30) mmol/L BUN (7-17) mg/dL Creatinine (0.52-1.04) mg/dL Glucose (74-99) mg/dL POC Glucose (mg/dL) 274 H 268 H 388 H (70-110) mg/dL Calcium (8.4-10.2) mg/dL 12/07/24 12/07/24 12/07/24 Range/Units 05:57 05:57 06:07 RBC 2.97 L (4.10-5.20) 10*6/uL Hgb 8.4 L (12.0-15.0) g/dL Hct 26.8 L (37.2-46.3) % MCHC 31.3 L (32.0-37.0) g/dL Plt Count 119 L (140-440) 10*3/uL Immature Gran # 0.25 H (0.00-0.04) 10*3/uL Lymphocytes # 0.56 L (0.90-5.00) 10*3/uL Eosinophils # 0.00 L (0.04-0.35) 10*3/uL Sodium 133 L (137-145) mmol/L Chloride 88 L (98-107) mmol/L Carbon Dioxide 37 H (22-30) mmol/L BUN 36 H (7-17) mg/dL Creatinine 1.06 H (0.52-1.04) mg/dL Glucose 268 H (74-99) mg/dL POC Glucose (mg/dL) 318 H (70-110) mg/dL Calcium 6.5 L (8.4-10.2) mg/dL Assessment and Plan Plan: Assessment: 1. Acute kidney injury secondary to hemodynamic ATN and NSAIDs. No proteinuria on UA. Renal function better. Creatinine 1.06. 2. Metastatic breast cancer status post right mastectomy. Started radiation therapy December 04, 2024. Also on Arimidex. 3. Volume overload. On oral Lasix. 4. Anemia. Iron replete. 5. Benign hypertension. 6. Hyponatremia, hypervolemic. Also component of hypertonicity from hyperglycemia. Better. Plan: Maintain Lasix. Avoid nephrotoxins. Repeat labs in the morning. Blood glucose control.
[2024-12-07] MEDS: CALCIUM GLUCONATE IN NACL 1 GM in SALINE 1 100ML.BAG IVPB ONE (11:51)
[2024-12-07] MEDS: INSULIN LISPRO (HumaLOG) 100 UNIT/ML 10 mL VL SQ SCH (11:59)
[2024-12-07 12:12] LABS: Glucose,Whole Blood 366 mg/dL (70-110)
[2024-12-07] MEDS ORDERED: polyethylene glycoL 3350 17 GM POWD.PACK PO PRN (13:20)
--- NOTE | 2024-12-07 16:42 | P.PN ---
Subjective Progress Note Date: 12/07/24 At todays visit, pt reporting persisting right knee and right shoulder pain, but states pain is better today with addition of IV pain meds. Still experiencing constipation, regimen has been adjusted. She has started RT Objective - Vital Signs Vital signs: Vital Signs Temp 97.8 F 12/07/24 15:47 Pulse 92 12/07/24 15:47 Resp 18 12/07/24 15:47 BP 133/79 12/07/24 15:47 Pulse Ox 97 12/07/24 15:47 FiO2 Intake & Output 12/06/24 12/07/24 12/07/24 18:59 06:59 18:59 Intake Total 1140 620 Output Total 1350 1500 550 Balance -210 -1500 70 Weight 103.5 kg Intake: IV 20 20 Invasive Line 3 20 20 Oral 1120 600 Output: Urine 1350 1500 550 Other: Voiding Method Bedside Commode Bedside Commode Bedside Commode External Catheter External Catheter External Catheter # Voids 1 - Constitutional General appearance: Present: no acute distress, obese - EENT Eyes: Present: anicteric sclerae, EOMI ENT: Present: hearing grossly normal - Respiratory Details: breathing is even and unlabored - Cardiovascular Details: skin warm and dry - Integumentary Integumentary: Absent: cyanotic - Musculoskeletal Musculoskeletal: Present: generalized weakness - Psychiatric Psychiatric: Present: A&O x's 3 - Labs CBC & Chem 7: 12/07/24 05:57 12/07/24 05:57 Labs: Abnormal Lab Results - Last 24 Hours (Table) 12/06/24 12/06/24 12/07/24 Range/Units 16:50 20:00 05:57 RBC 2.97 L (4.10-5.20) 10*6/uL Hgb 8.4 L (12.0-15.0) g/dL Hct 26.8 L (37.2-46.3) % MCHC 31.3 L (32.0-37.0) g/dL Plt Count 119 L (140-440) 10*3/uL Immature Gran # 0.25 H (0.00-0.04) 10*3/uL Lymphocytes # 0.56 L (0.90-5.00) 10*3/uL Eosinophils # 0.00 L (0.04-0.35) 10*3/uL Sodium (137-145) mmol/L Chloride (98-107) mmol/L Carbon Dioxide (22-30) mmol/L BUN (7-17) mg/dL Creatinine (0.52-1.04) mg/dL Glucose (74-99) mg/dL POC Glucose (mg/dL) 268 H 388 H (70-110) mg/dL Calcium (8.4-10.2) mg/dL 12/07/24 12/07/24 12/07/24 Range/Units 05:57 06:07 11:57 RBC (4.10-5.20) 10*6/uL Hgb (12.0-15.0) g/dL Hct (37.2-46.3) % MCHC (32.0-37.0) g/dL Plt Count (140-440) 10*3/uL Immature Gran # (0.00-0.04) 10*3/uL Lymphocytes # (0.90-5.00) 10*3/uL Eosinophils # (0.04-0.35) 10*3/uL Sodium 133 L (137-145) mmol/L Chloride 88 L (98-107) mmol/L Carbon Dioxide 37 H (22-30) mmol/L BUN 36 H (7-17) mg/dL Creatinine 1.06 H (0.52-1.04) mg/dL Glucose 268 H (74-99) mg/dL POC Glucose (mg/dL) 318 H 366 H (70-110) mg/dL Calcium 6.5 L (8.4-10.2) mg/dL Assessment and Plan (1) Atrial fibrillation with rapid ventricular response Current Visit: Yes Status: Acute Code(s): I48.91 - UNSPECIFIED ATRIAL FI BRILLATION SNOMED Code(s): 573548396278214 (2) Chest pain Current Visit: Yes Status: Acute Code(s): R07.9 - CHEST PAIN, UNSPECIFIED SNOMED Code(s): 98694614 (3) Breast cancer Current Visit: No Status: Acute Priority: High Code(s): C50.919 - MALIGNANT NEOPLASM OF UNSP SITE OF UNSPECIFIED FEMALE BREAST SNOMED Code(s): 949645698 Plan: A-fib with RVR -Anticoagulated with Eliquis -Cardiology has seen the patient, defer management of the same. Hx ER/KS positive, Her neg breast cancer, diagnosed 2019 -Patient had surgery, Oncotype score was 21, unclear if any significant benefit from receiving adjuvant chemotherapy so, pt was recommended radiation and AI. Patient completed radiation therapy. She has has not taken aromatase inhibitor consistently over the last 4 years. -August 18, 2024, CT of the right knee reporting unusual pattern she is sclerosis and lucency about both distal femoral and proximal tibial components, similar to 03/10/2024 imaging. Areas of periprosthetic osseous scalloping/erosion both anteriorly and posteriorly at the femoral component is similar to prior study as well, etiology unclear. Sequela of chronic infection versus underlying osseous metastatic disease. There was an interval development of a nondisplaced periprosthetic fracture along the anterior aspect of the tibia. Nuclear medicine bone scan 08/21/2024 did show diffuse uptake within the appendicular skeleton corresponding to CT findings. Shoulder x-ray 09/06/2024, reversed left shoulder arthroplasty appeared intact. No dislocation. Degenerative changes. Knee x-ray 11/29/2024 reporting no acute fracture or dislocation. No periprosthetic loosening. Diffuse subcutaneous edema. -CT AP reported diffuse osseous metastatic disease. No greater than 1 cm lymph nodes noted to suggest intra-abdominal metastatic disease. Subacute fracture of the left 11th rib. Nodular contour to liver, possible cirrhosis. -Outpt care has been delayed due to multiple cancellations. Patient did have bone biopsy at [facility] on 11/19, that was unfortunately positive for met breast carcinoma. Pt and aware. These findings represent stage IV disease, not curable but, chemo and non-chemo treatment options available. Will plan for a f/u with Dr. Yancey to review options, order molecular testing, and to develop a plan of care. Intractable vomiting with movement, 2/2 brain mets -MRI of the brain completed, reporting age-appropriate diffuse mild cerebral volume loss. No evidence of restricted diffusion to suggest acute/subacute infarct. Intracranial arterial flow voids are maintained. Midline structures show no abnormality. There is a T2 hyperintense signal within the right frontal lobe and right anterior temporal lobe with effacement of the peripheral sulcus I. This is consistent with vasogenic edema. No focal enhancing intra-axial lesions. There is adjacent abnormal enhancing dural thickening measures up to 1.3 cm in thickness along a gross length of 3 cm. Diffuse dural enhancement identified. Few patchy foci of high T2 FLAIR signal intensity seen within the supratentorial subcortical white matter. No midline shift. The susceptibility weighted images demonstrate foci of blooming artifact within this region of dural thickening consistent with hemosiderin deposition. Small focal regions of enhancement are identified within the calvarium. -Dural enhancement concern for possible leptomeningeal spread. -Continues dexamethasone and anti-emetic regimen. Reporting vomiting/dry heaves has resolved, having intermittent nausea but this has also improved. -Case discussed with Radiation Oncology, plan for palliative radiotherapy to the right knee and right shoulder to control her pain and eventually having treatment to the brain metastasis disease using stereotactic radiosurgery Pain, related to malignancy -Knee and shoulder pain-2/2 mets -Steroids have been started for brain mets -MS IR done increased and freq adjusted. Has been needing IVP pain meds to help manage pain. Will see what pt is requiring over the next 24 hours and make adjustments to PO regimen -No orthopedic procedures planned, zometa ordered for bone mets -Radiation Oncology consulted. RT has been started -Added medications for treatment of narcotic induced constipation as pt has not had a BM since admit. Cont meds for prevention Pancytopenia -CBC in Apr was normal, pancytopenia noted during admission in 08/2024 -Pancytopenia workup ordered during previous admit. No MGUS noted, iron studies were most consistent with inflammation. -WBC normal on last check, mild anemia and thrombocytopenia. No acute interventions needed -CBC will cont to be monitored PRN. No transfusions have been needed this hospital stay so far Doctor attests: I performed a history and physical examination of this patient, developed impression and plan of care. Discussed with dictator. I agree with dictators note, documented as a scribe.
[2024-12-07 16:53] LABS: Glucose,Whole Blood 255 mg/dL (70-110)
[2024-12-07] MEDS: polyethylene glycoL 3350 17 GM POWD.PACK PO SCH (17:14)
[2024-12-07 19:51] LABS: Glucose,Whole Blood 299 mg/dL (70-110)
[2024-12-07] MEDS: SENNOSIDES-DOCUSATE SODIUM 1 EACH TAB PO SCH (21:43)
--- NOTE | 2024-12-07 21:47 | P.PN ---
Subjective Progress Note Date: 12/07/24 This is a 69-year-old female with medical history significant for asthma COPD, diabetes mellitus, hypertension, hyperlipidemia, acid reflux, migraine, right breast cancer with prior mastectomy. Patient also has history of atrial fibrillation and is anticoagulated with eliquis on an outpatient basis. Patient is also a former smoker. Presented to the hospital for a 2-day history of chest pain and shortness of breath. States that she began vomiting Saturday overnight denies having any diarrhea and denies any fever or chills. She was having some burning like sensation after the vomiting and then developed a right sided chest pain with radiation into the shoulder. She initially presented to [facility] troponin levels were negative there. Patient received Nitropaste morphine was brought down to the [facility] for further cardiac evaluation. Her proBNP is elevated at 4300 her troponin levels here have been negative x 3. Chest x-ray reveals pulmonary vascular congestion. Paitent does state she missed multiple doses of her blood thinner because of the vomiting and GI upset. She is also complaining of worsening lower extremity edema. Patient states the right leg is always weaker than the left due a knee injury. On presentation patient was in atrial fibrillation with RVR and started on IV cardizem. She is also started on IV lasix. Patient takes oral morphine scheduled for chronic pain however has required multiple doses of IV morphine for the right shoulder pain. At this time rating it 5/10. Feels sharp in nature. Cardiology to evaluate the patient. 11/28/2024 Patient evaluated in follow up remains in the ER pending bed on the medical floor. Feels significantly improved as compared to yesterday. The sharp pain in the right side of the chest is now intermittent however still presents with deep inspiration. Patient ahd CTA completed for elevated d dimer which was negative for PE did reveal progression of osseus metastatic disease for imaging in july of 2024. Patient states she had a bone biopsy done a week ago has an appt with Dr Yancey on Saturday at 4 pm. Oncology will be consulted. Cardiology following. Patient remains on IV lasix 40 mg Q12 hour. Sodium level 135, BUN 30, creatinine 1.12. Procalcitonin level 0.24. 11/29/2024 Patient evaluated in follow-up on the medical floor. Patient continues to report significant improvement since admission. Patient is not having any further reports of chest discomfort at this time only with deep inspiration. She is reporting some pain in her right shoulder blade states that it is uncontrolled with her current regimen of oral morphine. Will give an additional one-time dose of IV morphine. Patient has been having nausea and dry heaving today. Compazine has been added in addition to Zofran. She is currently pending evaluation by oncology. Will transition patient to oral Lasix. 11/30/2024 Patient seen today in follow-up in the medical floor. Patient continues to report episodes of emesis and using IV Zofran and IV Compazine alternating for this. She is tolerating regular diet though. Her bowels are moving. Patient does continue to report some right shoulder discomfort worse with deep jeremy athing. She is currently pending bone marrow biopsy report. Urinalysis is unremarkable. Patient's white blood cell count today is 4.55 hemoglobin 9.2, platelet count of 136. Her sodium level today is 134, BUN of 26 creatinine of 1.23. She is urinating adequately and indwelling Berrios catheter was removed over 24 hours ago. Patient did fall yesterday afternoon after receiving a 10 mg dose of IV Compazine when she got up to the bathroom she felt dizzy. She states that she fell on her right knee and was having pain x-ray was completed which reveals no acute changes. Patient states that she feels her knee was swollen and bruised however there is no obvious bruising noted on examination and no significant swelling noted. She has an Nilo wrap in place which she states does help the pain. Will continue to monitor and she may need orthopedic evaluation. Noted the patient does have a prior right total knee arthroplasty. 12/01/2024 Patient is evaluated in follow-up in the medical floor. She continues to report nausea not having any further episodes of emesis and tolerating regular diet. Remains on antiemetic and patient will be going for a brain MRI today. Sodium level today stable at 134 BUN of 25 creatinine 1.12. Patient on oral Lasix 40 mg twice daily. 12/02/2024 Evaluated in follow-up on the medical floor. She continues to report significant pain to her right scapular area and worse with deep inspiration. This could be due to the bony metastatic disease. She also complains of right knee pain post fall has an Nilo wrap bandage in place however pain is not improving and we will ask orthopedic to evaluate this knee as she has had a total knee replacement done in the past on the right side. Brain MRI was completed today and was positive for 2 areas of vasogenic edema within the right foot normal enhancing focal dural thickening. This is on background diffuse dural enhancement. Findings are highly concerning for dural metastasis in the setting of known osseous metastasis. There are few small scattered enhancing osseous lesions within the calvarium concerning for possible metastasis. Nonspecific mild white matter changes without enhancement likely related to small vessel ischemic disease. Labs today reveal a sodium level of 133, potassium 3.8, BUN of 22 creatinine of 1.08. 12/03/2024 Patient is evaluated today in follow up. Continues to report significant pain to the right knee/leg. Additionally having pain in the right sided scapular region. Brain MRI reviewed by oncology and awaiting input from radiation oncologist at this time. Patient remains on IV decadron. Patient continues with significant nausea and vomiting. White blood cell count 4.66, hgb 8.3. Sodium 134, potassium 4.4., BUN 23, creatinine 1.08. 12/04/2024 Patient evaluated today in follow up resting in bed. Continues to report 10/10 pain to the right leg and right scapula. She cannot take a deep breath due to the pain. Remains on high dose IV decadron. Remains nauseas. Rad onc has recommended palliative radiation to the right leg and right shoulder. 12/05/2024 Patient was seen and examined today. Afebrile, heart rate 89, respiratory rate 20, blood pressure 139/85, saturating 95% on room air. Sitting comfortably in bed. Pain is controlled. On baclofen, MS Contin and MS IR. Underwent radiation yesterday. Oncology, radiation oncology on board and following, on IV Decadron. Nephrology following for acute kidney injury, recommended to maintain Lasix, patient fluid overloaded. WBCs 5.3, hemoglobin 8.1, platelet 128. BUN 36 creatinine 1.25. Bone marrow biopsy pending. Iron studies showed high iron, normal iron, TIBC. 12/06/24-- Patient was seen and examined today. Patient is afebrile, heart rate 88, respiratory rate 17, blood pressure 124/77, saturating 95% on room air. WBCs 4.7 hemoglobin 8.0, platelet 119. Sodium 131 potassium 4.4 CO2 37 BUN 37 creatinine 1.24. Calcium 6.9. Magnesium 2.0. Pain was uncontrolled overnight, required IV morphine. Remains on Lasix per nephrology. 12/07/2024 Patient is evaluated today in follow up. States the pain is currently a 5/10. Plans for 5 total rounds of radiation this admission. Currently has had 1. Awaiting the hinged knee brace. Sodium 133, BUN 36, creatinine 1.06. REVIEW OF SYSTEMS: CONSTITUTIONAL: No fever, no malaise, no fatigue. HEENT: No recent visual problems or hearing problems. Denied any sore throat. CARDIOVASCULAR: Reports right sided chest pain, orthopnea, PND, no palpitations, no syncope. PULMONARY: Reports shortness of breath worse with inspiration, no cough, no hemo ptysis. GASTROINTESTINAL: No diarrhea, no nausea, reports vomiting no abdominal pain. NEUROLOGICAL: No headaches, no weakness, no numbness. Weakness worse in the right due to old knee injury. Reports right knee pain PHYSICAL EXAMINATION: GENERAL: The patient is alert and oriented x3, not in any acute distress. Well developed, well nourished. Obese HEENT: Pupils are round and equally reacting to light. EOMI. No scleral icterus. No conjunctival pallor. Normocephalic, atraumatic. No pharyngeal erythema. No thyromegaly. CARDIOVASCULAR: S1 and S2 present. No murmurs, rubs, or gallops. PULMONARY: Chest is clear to auscultation, no wheezing or crackles. Diminished ABDOMEN: Soft, nontender, nondistended, normoactive bowel sounds. No palpable organomegaly. MUSCULOSKELETAL: No joint swelling or deformity. EXTREMITIES: No cyanosis, clubbing, has mild peripheral edema NEUROLOGICAL: Gross neurological examination did not reveal any focal deficits. Generalized weakness SKIN: No rashes. Assessment and plan Chest pain atypical ruled out acute coronary syndrome chest pain is pleuritic in nature could be due to osseous metastatic disease Periprosthetic pathological knee fracture with concern for bony metastasis of the proximal tibia. Fall in the hospital with increased pain to the right knee Vasogenic edema with concern for dural metastatic disease Metastatic breast cancer with right mastectomy maintained on on Arimidex Acute congestive heart failure diastolic dysfunction Atrial fibrillation with rapid ventricular rate recently diagnosed in October, currently rate controlled History of paroxysmal atrial fibrillation anticoag with Eliquis Asthma/COPD with no acute exacerbation Pancytopenia bone marrow biopsy currently pending reports Diabetes mellitus type 2 Hypertension Hyperlipidemia Gastroesophageal reflux disease Former smoker Obesity Plan IV cardizem off; rate controlled Transition to oral Lasix and continue strict intake and output monitoring Nephrology consultation [place] has been resumed Oncology has been consulted and awaiting bone marrow biopsy report Patient has been started on IV Decadron with concern for dural involvement. Patient has gone 2 days now without vomiting. Continue oral morphine twice daily scheduled as well as breakthrough immediate release morphine every 6 hours Protonix twice daily Continue Zofran and compazine Oncology recommending hinged knee brace for the right knee for protected weight bearing. Radiation oncology recommending palliative radiation to the right shoulder and leg which has been started. PT/OT consultation The impression and plan of care has been dictated by Claire Kay, Nurse Practitioner as directed. Dr. Joesph MD I have performed a history and physical examination and medical decision making of this patient, discussed the same with the dictator, and agree with the dictators assessment and plan as written, documented as a scribe. Based on total visit time, I have performed more than 50% of this visit. Objective - Vital Signs Vital signs: Vital Signs Temp 97.8 F 12/07/24 15:47 Pulse 92 12/07/24 15:47 Resp 18 12/07/24 15:47 BP 133/79 12/07/24 15:47 Pulse Ox 97 12/07/24 15:47 FiO2 Intake & Output 12/07/24 12/07/24 12/08/24 06:59 18:59 06:59 Intake Total 1500 Output Total 1500 1050 Balance -1500 450 Weight 103.5 kg Intake: IV 30 Invasive Line 3 20 Invasive Line 4 10 Oral 1470 Output: Urine 1500 1050 Other: Voiding Method Bedside Commode Bedside Commode External Catheter External Catheter # Voids 1 - Labs CBC & Chem 7: 12/07/24 05:57 12/07/24 05:57 Labs: Abnormal Lab Results - Last 24 Hours (Table) 12/07/24 12/07/24 12/07/24 Range/Units 05:57 05:57 06:07 RBC 2.97 L (4.10-5.20) 10*6/uL Hgb 8.4 L (12.0-15.0) g/dL Hct 26.8 L (37.2-46.3) % MCHC 31.3 L (32.0-37.0) g/dL Plt Count 119 L (140-440) 10*3/uL Immature Gran # 0.25 H (0.00-0.04) 10*3/uL Lymphocytes # 0.56 L (0.90-5.00) 10*3/uL Eosinophils # 0.00 L (0.04-0.35) 10*3/uL Sodium 133 L (137-145) mmol/L Chloride 88 L (98-107) mmol/L Carbon Dioxide 37 H (22-30) mmol/L BUN 36 H (7-17) mg/dL Creatinine 1.06 H (0.52-1.04) mg/dL Glucose 268 H (74-99) mg/dL POC Glucose (mg/dL) 318 H (70-110) mg/dL Calcium 6.5 L (8.4-10.2) mg/dL 12/07/24 12/07/24 12/07/24 Range/Units 11:57 16:50 19:48 RBC (4.10-5.20) 10*6/uL Hgb (12.0-15.0) g/dL Hct (37.2-46.3) % MCHC (32.0-37.0) g/dL Plt Count (140-440) 10*3/uL Immature Gran # (0.00-0.04) 10*3/uL Lymphocytes # (0.90-5.00) 10*3/uL Eosinophils # (0.04-0.35) 10*3/uL Sodium (137-145) mmol/L Chloride (98-107) mmol/L Carbon Dioxide (22-30) mmol/L BUN (7-17) mg/dL Creatinine (0.52-1.04) mg/dL Glucose (74-99) mg/dL POC Glucose (mg/dL) 366 H 255 H 299 H (70-110) mg/dL Calcium (8.4-10.2) mg/dL Assessment and Plan Time with Patient: Less than 30
[2024-12-07] MEDS: INSULIN GLARGINE (LANTUS) 100 UNIT/ML SYR SQ SCH (21:50)
[2024-12-08 06:17] LABS: Glucose,Whole Blood 205 mg/dL (70-110)
[2024-12-08 08:26] LABS: African American GFR (CKD) 61 (>60 ml/min/1.73 sqM); Albumin 3.5 g/dL (3.5-5.0); Anion Gap 11 mmol/L; Blood Urea Nitrogen 38 mg/dL (7-17); Calcium 6.7 mg/dL (8.4-10.2); Carbon Dioxide 37 mmol/L (22-30); Chloride 87 mmol/L (98-107); Glucose 257 mg/dL (74-99); Magnesium 2.2 mg/dL (1.6-2.3); Non-African American GFR(CKD) 53 (>60 ml/min/1.73 sqM); Potassium 4.4 mmol/L (3.5-5.1); Sodium 135 mmol/L (137-145)
--- NOTE | 2024-12-08 10:58 | P.PN ---
Subjective Patient is seen in follow-up for acute kidney injury. Renal function stable. On oral Lasix. Nonoliguric. Denies chest pain or shortness of breath. Vital signs are stable. General: No acute distress. HEENT: Head exam is unremarkable. On room air. LUNGS: No audible rhonchi or wheezes. HEART: Rate and Rhythm are regular. ABDOMEN: Nontender. EXTREMITITES: Trace edema. Objective - Vital Signs Vital signs: Vital Signs Temp 97.8 F 12/08/24 07:50 Pulse 96 12/08/24 08:48 Resp 18 12/08/24 07:50 BP 112/74 12/08/24 07:50 Pulse Ox 96 12/08/24 07:50 FiO2 Intake & Output 12/07/24 12/08/24 12/08/24 18:59 06:59 18:59 Intake Total 1500 40 118 Output Total 1050 800 Balance 450 -760 118 Weight 99.5 kg Intake: IV 30 40 Invasive Line 3 20 20 Invasive Line 4 10 20 Oral 1470 118 Output: Urine 1050 800 Other: Voiding Method Bedside Commode Bedside Commode Bedside Commode External Catheter External Catheter External Catheter - Labs CBC & Chem 7: 12/07/24 05:57 12/08/24 07:35 Labs: Abnormal Lab Results - Last 24 Hours (Table) 12/07/24 12/07/24 12/07/24 Range/Units 11:57 16:50 19:48 Sodium (137-145) mmol/L Chloride (98-107) mmol/L Carbon Dioxide (22-30) mmol/L BUN (7-17) mg/dL Creatinine (0.52-1.04) mg/dL Glucose (74-99) mg/dL POC Glucose (mg/dL) 366 H 255 H 299 H (70-110) mg/dL Calcium (8.4-10.2) mg/dL 12/08/24 12/08/24 Range/Units 06:16 07:35 Sodium 135 L (137-145) mmol/L Chloride 87 L (98-107) mmol/L Carbon Dioxide 37 H (22-30) mmol/L BUN 38 H (7-17) mg/dL Creatinine 1.09 H (0.52-1.04) mg/dL Glucose 257 H (74-99) mg/dL POC Glucose (mg/dL) 205 H (70-110) mg/dL Calcium 6.7 L (8.4-10.2) mg/dL Assessment and Plan Plan: Assessment: 1. Acute kidney injury secondary to hemodynamic ATN and NSAIDs. No proteinuria on UA. Renal function stable. Creatinine 1.06. 2. Metastatic breast cancer status post right mastectomy. Started radiation therapy December 04, 2024. Also on Arimidex. 3. Volume overload. On oral Lasix. 4. Anemia. Iron replete. 5. Benign hypertension. 6. Hyponatremia, hypervolemic. Also component of hypertonicity from hyperglycemia. Better. Plan: Maintain Lasix. Avoid nephrotoxins. Repeat labs in the morning. Blood glucose control. Check vitamin D level. Add Tums.
[2024-12-08 11:58] LABS: Glucose,Whole Blood 381 mg/dL (70-110)
[2024-12-08] MEDS: LACTULOSE 20 GM/30 ML CUP PO PRN (14:00)
--- NOTE | 2024-12-08 15:31 | P.PN ---
Subjective Progress Note Date: 12/08/24 This is a 69-year-old female with medical history significant for asthma COPD, diabetes mellitus, hypertension, hyperlipidemia, acid reflux, migraine, right breast cancer with prior mastectomy. Patient also has history of atrial fibrillation and is anticoagulated with eliquis on an outpatient basis. Patient is also a former smoker. Presented to the hospital for a 2-day history of chest pain and shortness of breath. States that she began vomiting Saturday overnight denies having any diarrhea and denies any fever or chills. She was having some burning like sensation after the vomiting and then developed a right sided chest pain with radiation into the shoulder. She initially presented to [facility] troponin levels were negative there. Patient received Nitropaste morphine was brought down to the [facility] for further cardiac evaluation. Her proBNP is elevated at 4300 her troponin levels here have been negative x 3. Chest x-ray reveals pulmonary vascular congestion. Paitent does state she missed multiple doses of her blood thinner because of the vomiting and GI upset. She is also complaining of worsening lower extremity edema. Patient states the right leg is always weaker than the left due a knee injury. On presentation patient was in atrial fibrillation with RVR and started on IV cardizem. She is also started on IV lasix. Patient takes oral morphine scheduled for chronic pain however has required multiple doses of IV morphine for the right shoulder pain. At this time rating it 5/10. Feels sharp in nature. Cardiology to evaluate the patient. 11/28/2024 Patient evaluated in follow up remains in the ER pending bed on the medical floor. Feels significantly improved as compared to yesterday. The sharp pain in the right side of the chest is now intermittent however still presents with deep inspiration. Patient ahd CTA completed for elevated d dimer which was negative for PE did reveal progression of osseus metastatic disease for imaging in july of 2024. Patient states she had a bone biopsy done a week ago has an appt with Dr Yancey on Saturday at 4 pm. Oncology will be consulted. Cardiology following. Patient remains on IV lasix 40 mg Q12 hour. Sodium level 135, BUN 30, creatinine 1.12. Procalcitonin level 0.24. 11/29/2024 Patient evaluated in follow-up on the medical floor. Patient continues to report significant improvement since admission. Patient is not having any further reports of chest discomfort at this time only with deep inspiration. She is reporting some pain in her right shoulder blade states that it is uncontrolled with her current regimen of oral morphine. Will give an additional one-time dose of IV morphine. Patient has been having nausea and dry heaving today. Compazine has been added in addition to Zofran. She is currently pending evaluation by oncology. Will transition patient to oral Lasix. 11/30/2024 Patient seen today in follow-up in the medical floor. Patient continues to report episodes of emesis and using IV Zofran and IV Compazine alternating for this. She is tolerating regular diet though. Her bowels are moving. Patient does continue to report some right shoulder discomfort worse with deep jeremy athing. She is currently pending bone marrow biopsy report. Urinalysis is unremarkable. Patient's white blood cell count today is 4.55 hemoglobin 9.2, platelet count of 136. Her sodium level today is 134, BUN of 26 creatinine of 1.23. She is urinating adequately and indwelling Berrios catheter was removed over 24 hours ago. Patient did fall yesterday afternoon after receiving a 10 mg dose of IV Compazine when she got up to the bathroom she felt dizzy. She states that she fell on her right knee and was having pain x-ray was completed which reveals no acute changes. Patient states that she feels her knee was swollen and bruised however there is no obvious bruising noted on examination and no significant swelling noted. She has an Nilo wrap in place which she states does help the pain. Will continue to monitor and she may need orthopedic evaluation. Noted the patient does have a prior right total knee arthroplasty. 12/01/2024 Patient is evaluated in follow-up in the medical floor. She continues to report nausea not having any further episodes of emesis and tolerating regular diet. Remains on antiemetic and patient will be going for a brain MRI today. Sodium level today stable at 134 BUN of 25 creatinine 1.12. Patient on oral Lasix 40 mg twice daily. 12/02/2024 Evaluated in follow-up on the medical floor. She continues to report significant pain to her right scapular area and worse with deep inspiration. This could be due to the bony metastatic disease. She also complains of right knee pain post fall has an Nilo wrap bandage in place however pain is not improving and we will ask orthopedic to evaluate this knee as she has had a total knee replacement done in the past on the right side. Brain MRI was completed today and was positive for 2 areas of vasogenic edema within the right foot normal enhancing focal dural thickening. This is on background diffuse dural enhancement. Findings are highly concerning for dural metastasis in the setting of known osseous metastasis. There are few small scattered enhancing osseous lesions within the calvarium concerning for possible metastasis. Nonspecific mild white matter changes without enhancement likely related to small vessel ischemic disease. Labs today reveal a sodium level of 133, potassium 3.8, BUN of 22 creatinine of 1.08. 12/03/2024 Patient is evaluated today in follow up. Continues to report significant pain to the right knee/leg. Additionally having pain in the right sided scapular region. Brain MRI reviewed by oncology and awaiting input from radiation oncologist at this time. Patient remains on IV decadron. Patient continues with significant nausea and vomiting. White blood cell count 4.66, hgb 8.3. Sodium 134, potassium 4.4., BUN 23, creatinine 1.08. 12/04/2024 Patient evaluated today in follow up resting in bed. Continues to report 10/10 pain to the right leg and right scapula. She cannot take a deep breath due to the pain. Remains on high dose IV decadron. Remains nauseas. Rad onc has recommended palliative radiation to the right leg and right shoulder. 12/05/2024 Patient was seen and examined today. Afebrile, heart rate 89, respiratory rate 20, blood pressure 139/85, saturating 95% on room air. Sitting comfortably in bed. Pain is controlled. On baclofen, MS Contin and MS IR. Underwent radiation yesterday. Oncology, radiation oncology on board and following, on IV Decadron. Nephrology following for acute kidney injury, recommended to maintain Lasix, patient fluid overloaded. WBCs 5.3, hemoglobin 8.1, platelet 128. BUN 36 creatinine 1.25. Bone marrow biopsy pending. Iron studies showed high iron, normal iron, TIBC. 12/06/24-- Patient was seen and examined today. Patient is afebrile, heart rate 88, respiratory rate 17, blood pressure 124/77, saturating 95% on room air. WBCs 4.7 hemoglobin 8.0, platelet 119. Sodium 131 potassium 4.4 CO2 37 BUN 37 creatinine 1.24. Calcium 6.9. Magnesium 2.0. Pain was uncontrolled overnight, required IV morphine. Remains on Lasix per nephrology. 12/07/2024 Patient is evaluated today in follow up. States the pain is currently a 5/10. Plans for 5 total rounds of radiation this admission. Currently has had 1. Awaiting the hinged knee brace. Sodium 133, BUN 36, creatinine 1.06. 12/08/2024 Patient remains that she has not had a bowel movement since this hospital stay. Her abdomen is soft and nontender and she has normal active bowel sounds. She has not had any nausea vomiting for the last 3 days and she will be tapered off the IV Decadron to an oral Decadron taper. She has completed radiation therapy to the shoulder and knee this hospital stay with plans for the stereotactic brain RT on an outpatient basis. This was discussed with oncology. From their standpoint she can be cleared for discharge. Patient is apprehensive regarding her discharge secondary to her pain and nausea. She does have the soft knee brace as well as a hinged knee brace for ambulation at the bedside. Sodium leve l of 135, BUN of 38 creatinine 1.09. Her blood glucose is in the 250s. Vitamin D 25-hydroxy is low at 10.0 REVIEW OF SYSTEMS: CONSTITUTIONAL: No fever, no malaise, no fatigue. HEENT: No recent visual problems or hearing problems. Denied any sore throat. CARDIOVASCULAR: Reports right sided chest pain, orthopnea, PND, no palpitations, no syncope. PULMONARY: Reports shortness of breath worse with inspiration, no cough, no hemoptysis. GASTROINTESTINAL: No diarrhea, no nausea, reports vomiting no abdominal pain. NEUROLOGICAL: No headaches, no weakness, no numbness. Weakness worse in the ri ght due to old knee injury. Reports right knee pain PHYSICAL EXAMINATION: GENERAL: The patient is alert and oriented x3, not in any acute distress. Well developed, well nourished. Obese HEENT: Pupils are round and equally reacting to light. EOMI. No scleral icterus. No conjunctival pallor. Normocephalic, atraumatic. No pharyngeal erythema. No thyromegaly. CARDIOVASCULAR: S1 and S2 present. No murmurs, rubs, or gallops. PULMONARY: Chest is clear to auscultation, no wheezing or crackles. Diminished ABDOMEN: Soft, nontender, nondistended, normoactive bowel sounds. No palpable organomegaly. MUSCULOSKELETAL: No joint swelling or deformity. EXTREMITIES: No cyanosis, clubbing, has mild peripheral edema NEUROLOGICAL: Gross neurological examination did not reveal any focal deficits. Generalized weakness SKIN: No rashes. Assessment and plan Chest pain atypical ruled out acute coronary syndrome chest pain is pleuritic in nature could be due to osseous metastatic disease Periprosthetic pathological knee fracture with concern for bony metastasis of the proximal tibia. Fall in the hospital with increased pain to the right knee Vasogenic edema with concern for dural metastatic disease Metastatic breast cancer with right mastectomy maintained on on Arimidex Acute congestive heart failure diastolic dysfunction Atrial fibrillation with rapid ventricular rate recently diagnosed in October, currently rate controlled History of paroxysmal atrial fibrillation anticoag with Eliquis Vitamin D deficiency Asthma/COPD with no acute exacerbation Pancytopenia bone marrow biopsy currently pending reports Diabetes mellitus type 2 Hypertension Hyperlipidemia Gastroesophageal reflux disease Former smoker Obesity Plan IV cardizem off; rate controlled Transition to oral Lasix and continue strict intake and output monitoring Nephrology consultation Eliquis has been resumed Oncology has been consulted and awaiting bone marrow biopsy report Patient has been started on IV Decadron with concern for dural involvement. Patient has gone 3 days now without vomiting. Patient will transition to oral Decadron Continue oral morphine twice daily scheduled as well as breakthrough immediate release morphine every 6 hours Protonix twice daily Continue Zofran and compazine Oncology recommending hinged knee brace for the right knee for protected weight bearing. Radiation oncology recommending palliative radiation to the right shoulder and leg which has been completed with plans for stereotactic brain radiation on outpatient basis. PT/OT consultation Home with home care on discharge patient be discharged home in the next 24 hours The impression and plan of care has been dictated by Claire Kay Nurse Practitioner as directed. Dr. Joesph MD I have performed a history and physical examination and medical decision making of this patient, discussed the same with the dictator, and agree with the dictators assessment and plan as written, documented as a scribe. Based on total visit time, I have performed more than 50% of this visit. Objective - Vital Signs Vital signs: Vital Signs Temp 97.8 F 12/08/24 07:50 Pulse 96 12/08/24 08:48 Resp 18 12/08/24 07:50 BP 112/74 12/08/24 07:50 Pulse Ox 96 12/08/24 07:50 FiO2 Intake & Output 12/07/24 12/08/24 12/08/24 18:59 06:59 18:59 Intake Total 1500 40 118 Output Total 1050 800 Balance 450 -760 118 Weight 99.5 kg Intake: IV 30 40 Invasive Line 3 20 20 Invasive Line 4 10 20 Oral 1470 118 Output: Urine 1050 800 Other: Voiding Method Bedside Commode Bedside Commode Bedside Commode External Catheter External Catheter External Catheter - Labs CBC & Chem 7: 12/07/24 05:57 12/08/24 07:35 Labs: Abnormal Lab Results - Last 24 Hours (Table) 12/07/24 12/07/24 12/07/24 Range/Units 11:57 16:50 19:48 Sodium (137-145) mmol/L Chloride (98-107) mmol/L Carbon Dioxide (22-30) mmol/L BUN (7-17) mg/dL Creatinine (0.52-1.04) mg/dL Glucose (74-99) mg/dL POC Glucose (mg/dL) 366 H 255 H 299 H (70-110) mg/dL Calcium (8.4-10.2) mg/dL 12/08/24 12/08/24 Range/Units 06:16 07:35 Sodium 135 L (137-145) mmol/L Chloride 87 L (98-107) mmol/L Carbon Dioxide 37 H (22-30) mmol/L BUN 38 H (7-17) mg/dL Creatinine 1.09 H (0.52-1.04) mg/dL Glucose 257 H (74-99) mg/dL POC Glucose (mg/dL) 205 H (70-110) mg/dL Calcium 6.7 L (8.4-10.2) mg/dL Assessment and Plan Time with Patient: Less than 30
[2024-12-08 16:13] LABS: Glucose,Whole Blood 345 mg/dL (70-110)
[2024-12-08] MEDS: DEXAMETHASONE SOD PHOSPHATE 4 MG/ML 1 ML VIAL IVP SCH (16:16)
[2024-12-08] MEDS: CHOLECALCIFEROL 25 MCG (1000 IU) TABLET PO SCH (16:16)
[2024-12-08] MEDS: ERGOCALCIFEROL 1,250 MCG (50,000 IU) CAPSULE PO SCH (16:16)
--- NOTE | 2024-12-08 18:49 | P.PN ---
Subjective Progress Note Date: 12/08/24 At todays visit, pt reporting persisting right knee and right shoulder pain. However, she has not been using morphine IR overnight for 16 hrs. She reports sleeping well overnight. Pain management/meds have been difficult to manage. Vomiting/dry heaves have resolved, still having intermittent nausea. Pt has not had a BM since admit, bowel regimen adjusted. Pt declined use of suppository. RT of right knee and shoulder complete Objective - Vital Signs Vital signs: Vital Signs Temp 97.8 F 12/08/24 07:50 Pulse 100 12/08/24 15:36 Resp 18 12/08/24 15:33 BP 118/73 12/08/24 15:33 Pulse Ox 95 12/08/24 15:33 FiO2 Intake & Output 12/07/24 12/08/24 12/08/24 18:59 06:59 18:59 Intake Total 1500 40 256 Output Total 1050 800 550 Balance 450 -760 -294 Weight 99.5 kg Intake: IV 30 40 20 Invasive Line 3 20 20 10 Invasive Line 4 10 20 10 Oral 1470 236 Output: Urine 1050 800 550 Other: Voiding Method Bedside Commode Bedside Commode Bedside Commode External Catheter External Catheter External Catheter - Constitutional General appearance: Present: obese - EENT Eyes: Present: anicteric sclerae, EOMI ENT: Present: hearing grossly normal - Respiratory Details: breathing is even and unlabored - Cardiovascular Details: skin warm and dry - Gastrointestinal General gastrointestinal: Present: soft - Integumentary Integumentary: Absent: cyanotic, jaundiced - Musculoskeletal Musculoskeletal: Present: generalized weakness - Psychiatric Psychiatric: Present: A&O x's 3 - Labs CBC & Chem 7: 12/07/24 05:57 12/08/24 07:35 Labs: Abnormal Lab Results - Last 24 Hours (Table) 12/07/24 12/08/24 12/08/24 Range/Units 19:48 06:16 07:35 Sodium 135 L (137-145) mmol/L Chloride 87 L (98-107) mmol/L Carbon Dioxide 37 H (22-30) mmol/L BUN 38 H (7-17) mg/dL Creatinine 1.09 H (0.52-1.04) mg/dL Glucose 257 H (74-99) mg/dL POC Glucose (mg/dL) 299 H 205 H (70-110) mg/dL Calcium 6.7 L (8.4-10.2) mg/dL Vitamin D 25-Hydroxy (30.0-100.0) ng/mL 12/08/24 12/08/24 12/08/24 Range/Units 07:37 11:57 16:12 Sodium (137-145) mmol/L Chloride (98-107) mmol/L Carbon Dioxide (22-30) mmol/L BUN (7-17) mg/dL Creatinine (0.52-1.04) mg/dL Glucose (74-99) mg/dL POC Glucose (mg/dL) 381 H 345 H (70-110) mg/dL Calcium (8.4-10.2) mg/dL Vitamin D 25-Hydroxy 10.0 L (30.0-100.0) ng/mL Assessment and Plan (1) Atrial fibrillation with rapid ventricular response Current Visit: Yes Status: Acute Code(s): I48.91 - UNSPECIFIED ATRIAL FIBRILLATION SNOMED Code(s): 065182819307383 (2) Chest pain Current Visit: Yes Status: Acute Code(s): R07.9 - CHEST PAIN, UNSPECIFIED SNOMED Code(s): 90922477 (3) Breast cancer Current Visit: No Status: Acute Priority: High Code(s): C50.919 - MALIGNANT NEOPLASM OF UNSP SITE OF UNSPECIFIED FEMALE BREAST SNOMED Code(s): 315719798 Plan: A-fib with RVR -Anticoagulated with Eliquis -Cardiology has seen the patient, defer management of the same. Hx ER/AR positive, Her neg breast cancer, diagnosed 2019 -Patient had surgery, Oncotype score was 21, unclear if any significant benefit from receiving adjuvant chemotherapy so, pt was recommended radiation and AI. Patient completed radiation therapy. She has has not taken aromatase inhibitor consistently over the last 4 years. -August 18, 2024, CT of the right knee reporting unusual pattern she is sclerosis and lucency about both distal femoral and proximal tibial components, similar to 03/10/2024 imaging. Areas of periprosthetic osseous scalloping/erosion both anteriorly and posteriorly at the femoral component is similar to prior study as well, etiology unclear. Sequela of chronic infection versus underlying osseous metastatic disease. There was an interval development of a nondisplaced periprosthetic fracture along the anterior aspect of the tibia. Nuclear medicine bone scan 08/21/2024 did show diffuse uptake within the appendicular skeleton corresponding to CT findings. Shoulder x-ray 09/06/2024, reversed left shoulder arthroplasty appeared intact. No dislocation. D egenerative changes. Knee x-ray 11/29/2024 reporting no acute fracture or dislocation. No periprosthetic loosening. Diffuse subcutaneous edema. -CT AP reported diffuse osseous metastatic disease. No greater than 1 cm lymph nodes noted to suggest intra-abdominal metastatic disease. Subacute fracture of the left 11th rib. Nodular contour to liver, possible cirrhosis. -Outpt care has been delayed due to multiple cancellations. Patient did have bone biopsy at [facility] on 11/19, that was unfortunately positive for met breast carcinoma. Pt and aware. These findings represent stage IV disease, not curable but, chemo and non-chemo treatment options available. F/u with Dr. Yancey scheduled on 12/15 to review options, order molecular testing, and to develop a plan of care. Intractable vomiting with movement, 2/2 brain mets -MRI of the brain completed, reporting age-appropriate diffuse mild cerebral volume loss. No evidence of restricted diffusion to suggest acute/subacute infarct. Intracranial arterial flow voids are maintained. Midline structures show no abnormality. There is a T2 hyperintense signal within the right frontal lobe and right anterior temporal lobe with effacement of the peripheral sulcus I. This is consistent with vasogenic edema. No focal enhancing intra-axial lesions. There is adjacent abnormal enhancing dural thickening measures up to 1.3 cm in thickness along a gross length of 3 cm. Diffuse dural enhancement identified. Few patchy foci of high T2 FLAIR signal intensity seen within the supratentorial subcortical white matter. No midline shift. The susceptibility weighted images demonstrate foci of blooming artifact within this region of dural thickening consistent with hemosiderin deposition. Small focal regions of enhancement are identified within the calvarium. -Dural enhancement concern for possible leptomeningeal spread. -Continues dexamethasone and anti-emetic regimen. Reporting vomiting/dry heaves has resolved, having intermittent nausea but this has also improved. Dexamethasone adjusted, will plan to taper in outpt setting -Case discussed with Radiation Oncology, plan for palliative radiotherapy to the right knee and right shoulder to control her pain and outpt treatment to the brain metastasis disease using stereotactic radiosurgery Pain, related to malignancy -Knee and shoulder pain-2/2 mets -Steroids have been started for brain mets -MS IR done increased and freq adjusted. Has been needing IVP pain meds to help manage pain. Will see what pt is requiring over the next 24 hours and make adjustments to PO regimen -No orthopedic procedures planned, zometa ordered for bone mets -Radiation Oncology consulted. RT comleted to right knee and right shoulder -Added medications for treatment of narcotic induced constipation as pt has not had a BM since admit. Cont meds for prevention Pancytopenia -CBC in Apr was normal, pancytopenia noted during admission in 08/2024 -Pancytopenia workup ordered during previous admit. No MGUS noted, iron studies were most consistent with inflammation. -WBC normal on last check, mild anemia and thrombocytopenia. No acute interventions needed -CBC will cont to be monitored PRN. No transfusions have been needed this hospital stay so far Case discussed with admitting team and rad onc today. Pt cleared for discharge from hem/onc standpoint. Pain meds and dex sent to patients pharmacy from clinic EMR
[2024-12-08 20:22] LABS: Glucose,Whole Blood 185 mg/dL (70-110)
[2024-12-08] MEDS: CALCIUM CARBONATE 500 MG CHEWABLE PO SCH (21:42)
[2024-12-08 22:24] LABS: Glucose,Whole Blood 169 mg/dL (70-110)
[2024-12-08] MEDS: ONDANSETRON 4 MG/2 ML VIAL IVP PRN (23:25)
[2024-12-09 06:24] LABS: Glucose,Whole Blood 150 mg/dL (70-110)
[2024-12-09 07:09] LABS: African American GFR (CKD) 76 (>60 ml/min/1.73 sqM); Anion Gap 7 mmol/L; Blood Urea Nitrogen 40 mg/dL (7-17); Carbon Dioxide 37 mmol/L (22-30); Chloride 88 mmol/L (98-107); Glucose 136 mg/dL (74-99); Non-African American GFR(CKD) 66 (>60 ml/min/1.73 sqM); Potassium 4.3 mmol/L (3.5-5.1); Sodium 132 mmol/L (137-145)
[2024-12-09 08:19] VITALS: RESP 16
--- NOTE | 2024-12-09 10:10 | P.PN ---
Subjective Patient is seen in follow-up for acute kidney injury. Renal function better. On oral Lasix. Nonoliguric. Denies chest pain or shortness of breath. Vital signs are stable. General: No acute distress. HEENT: Head exam is unremarkable. On room air. LUNGS: No audible rhonchi or wheezes. HEART: Rate and Rhythm are regular. ABDOMEN: Nontender. EXTREMITITES: Trace edema. Objective - Vital Signs Vital signs: Vital Signs Temp 97.5 F L 12/09/24 08:00 Pulse 96 12/09/24 09:22 Resp 16 12/09/24 08:00 BP 118/61 12/09/24 08:00 Pulse Ox 100 12/09/24 08:00 FiO2 Intake & Output 12/08/24 12/09/24 12/09/24 18:59 06:59 18:59 Intake Total 246 800 500 Output Total 550 3 Balance -304 797 500 Weight 100 kg Intake: IV 10 20 20 Invasive Line 3 10 Invasive Line 4 10 20 10 Oral 236 780 480 Output: Urine 550 Stool 3 Other: Voiding Method Bedside Commode Bedside Commode External Catheter External Catheter External Catheter # Voids 1 1 # Bowel Movements 1 - Labs CBC & Chem 7: 12/07/24 05:57 12/09/24 05:42 Labs: Abnormal Lab Results - Last 24 Hours (Table) 12/08/24 12/08/24 12/08/24 Range/Units 07:37 11:57 16:12 Sodium (137-145) mmol/L Chloride (98-107) mmol/L Carbon Dioxide (22-30) mmol/L BUN (7-17) mg/dL Glucose (74-99) mg/dL POC Glucose (mg/dL) 381 H 345 H (70-110) mg/dL Calcium (8.4-10.2) mg/dL Vitamin D 25-Hydroxy 10.0 L (30.0-100.0) ng/mL 12/08/24 12/08/24 12/09/24 Range/Units 20:21 22:22 05:42 Sodium 132 L (137-145) mmol/L Chloride 88 L (98-107) mmol/L Carbon Dioxide 37 H (22-30) mmol/L BUN 40 H (7-17) mg/dL Glucose 136 H (74-99) mg/dL POC Glucose (mg/dL) 185 H 169 H (70-110) mg/dL Calcium 7.0 L (8.4-10.2) mg/dL Vitamin D 25-Hydroxy (30.0-100.0) ng/mL 12/09/24 Range/Units 06:23 Sodium (137-145) mmol/L Chloride (98-107) mmol/L Carbon Dioxide (22-30) mmol/L BUN (7-17) mg/dL Glucose (74-99) mg/dL POC Glucose (mg/dL) 150 H (70-110) mg/dL Calcium (8.4-10.2) mg/dL Vitamin D 25-Hydroxy (30.0-100.0) ng/mL Assessment and Plan Plan: Assessment: 1. Acute kidney injury secondary to hemodynamic ATN and NSAIDs. No proteinuria on UA. Renal function stable. Creatinine 0.9. 2. Metastatic breast cancer status post right mastectomy. Started radiation therapy December 04, 2024. Also on Arimidex. 3. Volume overload. On oral Lasix. 4. Anemia. Iron replete. 5. Benign hypertension. 6. Hyponatremia, hypervolemic. Also component of hypertonicity from hyp erglycemia. Fairly stable. 7. Hypocalcemia. Vitamin D insufficiency noted. Continue vitamin D lerma pplementation. Also on Tums. Plan: Maintain Lasix. Add fluid restriction. Avoid nephrotoxins. Repeat labs in the morning. Blood glucose control.
[2024-12-09 11:23] VITALS: TEMP 98
[2024-12-09 11:26] LABS: Glucose,Whole Blood 260 mg/dL (70-110)
[2024-12-09 11:44] VITALS: BP 109/66
[2024-12-09 13:15] VITALS: PULSE 98
--- NOTE | 2024-12-09 18:27 | P.PN ---
Subjective Progress Note Date: 12/09/24 At todays visit, pt reporting persisting right knee and right shoulder pain. However, better controlled on current regimen. Pt had large BM today. PT asked to reevaluate pt prior to discharge Objective - Vital Signs Vital signs: Vital Signs Temp 98.0 F 12/09/24 11:43 Pulse 113 H 12/09/24 11:43 Resp 16 12/09/24 11:43 BP 109/66 12/09/24 11:43 Pulse Ox 99 12/09/24 11:43 FiO2 Intake & Output 12/08/24 12/09/24 12/09/24 18:59 06:59 18:59 Intake Total 246 800 500 Output Total 550 3 Balance -304 797 500 Weight 100 kg Intake: IV 10 20 20 Invasive Line 3 10 Invasive Line 4 10 20 10 Oral 236 780 480 Output: Urine 550 Stool 3 Other: Voiding Method Bedside Commode Bedside Commode External Catheter External Catheter External Catheter # Voids 1 1 # Bowel Movements 1 - Labs CBC & Chem 7: 12/07/24 05:57 12/09/24 05:42 Labs: Abnormal Lab Results - Last 24 Hours (Table) 12/08/24 12/08/24 12/08/24 Range/Units 07:37 16:12 20:21 Sodium (137-145) mmol/L Chloride (98-107) mmol/L Carbon Dioxide (22-30) mmol/L BUN (7-17) mg/dL Glucose (74-99) mg/dL POC Glucose (mg/dL) 345 H 185 H (70-110) mg/dL Calcium (8.4-10.2) mg/dL Vitamin D 25-Hydroxy 10.0 L (30.0-100.0) ng/mL 12/08/24 12/09/24 12/09/24 Range/Units 22:22 05:42 06:23 Sodium 132 L (137-145) mmol/L Chloride 88 L (98-107) mmol/L Carbon Dioxide 37 H (22-30) mmol/L BUN 40 H (7-17) mg/dL Glucose 136 H (74-99) mg/dL POC Glucose (mg/dL) 169 H 150 H (70-110) mg/dL Calcium 7.0 L (8.4-10.2) mg/dL Vitamin D 25-Hydroxy (30.0-100.0) ng/mL 12/09/24 Range/Units 11:25 Sodium (137-145) mmol/L Chloride (98-107) mmol/L Carbon Dioxide (22-30) mmol/L BUN (7-17) mg/dL Glucose (74-99) mg/dL POC Glucose (mg/dL) 260 H (70-110) mg/dL Calcium (8.4-10.2) mg/dL Vitamin D 25-Hydroxy (30.0-100.0) ng/mL Assessment and Plan (1) Atrial fibrillation with rapid ventricular response Status: Acute Code(s): I48.91 - UNSPECIFIED ATRIAL FIBRILLATION SNOMED Code(s): 514357871150727 (2) Chest pain Status: Acute Code(s): R07.9 - CHEST PAIN, UNSPECIFIED SNOMED Code(s): 78546218 (3) Breast cancer Status: Acute Priority: High Code(s): C50.919 - MALIGNANT NEOPLASM OF UNSP SITE OF UNSPECIFIED FEMALE BREAST SNOMED Code(s): 023776090 Plan: A-fib with RVR -Anticoagulated with Eliquis -Cardiology has seen the patient, defer management of the same. Hx ER/[place] positive, Her neg breast cancer, diagnosed 2019 -Patient had surgery, Oncotype score was 21, unclear if any significant benefit from receiving adjuvant chemotherapy so, pt was recommended radiation and AI. Patient completed radiation therapy. She has has not taken aromatase inhibitor consistently over the last 4 years. -August 18, 2024, CT of the right knee reporting unusual pattern she is sclerosis and lucency about both distal femoral and proximal tibial components, similar to 03/10/2024 imaging. Areas of periprosthetic osseous scalloping/erosion both anteriorly and posteriorly at the femoral component is similar to prior study as well, etiology unclear. Sequela of chronic infection versus underlying osseous metastatic disease. There was an interval development of a nondisplaced periprosthetic fracture along the anterior aspect of the tibia. Nuclear medicine bone scan 08/21/2024 did show diffuse uptake within the appendicular skeleton corresponding to CT findings. Shoulder x-ray 09/06/2024, reversed left shoulder arthroplasty appeared intact. No dislocation. Degenerative changes. Knee x-ray 11/29/2024 reporting no acute fracture or dislocation. No periprosthetic loosening. Diffuse subcutaneous edema. -CT AP reported diffuse osseous metastatic disease. No greater than 1 cm lymph nodes noted to suggest intra-abdominal metastatic disease. Subacute fracture of the left 11th rib. Nodular contour to liver, possible cirrhosis. -Outpt care has been delayed due to multiple cancellations. Patient did have bone biopsy at [facility] on 11/19, that was unfortunately positive for met breast carcinoma. Pt and aware. These findings represent stage IV disease, not curable but, chemo and non-chemo treatment options available. F/u with Dr. Yancey scheduled on 12/15 to review options, order molecular testing, and to develop a plan of care. Intractable vomiting with movement, 2/2 brain mets -MRI of the brain completed, reporting age-appropriate diffuse mild cerebral volume loss. No evidence of restricted diffusion to suggest acute/subacute infarct. Intracranial arterial flow voids are maintained. Midline structures show no abnormality. There is a T2 hyperintense signal within the right frontal lobe and right anterior temporal lobe with effacement of the peripheral sulcus I. This is consistent with vasogenic edema. No focal enhancing intra-axial lesions. There is adjacent abnormal enhancing dural thickening measures up to 1.3 cm in thickness along a gross length of 3 cm. Diffuse dural enhancement identified. Few patchy foci of high T2 FLAIR signal intensity seen within the supratentorial subcortical white matter. No midline shift. The susceptibility weighted images demonstrate foci of blooming artifact within this region of dural thickening consistent with hemosiderin deposition. Small focal regions of enhancement are identified within the calvarium. -Dural enhancement concern for possible leptomeningeal spread. -Continues dexamethasone and anti-emetic regimen. Reporting vomiting/dry heaves has resolved, having intermittent nausea but this has also improved. Dexamethasone adjusted, will plan to taper in outpt setting -Case discussed with Radiation Oncology, plan for palliative radiotherapy to the right knee and right shoulder to control her pain and outpt treatment to the brain metastasis disease using stereotactic radiosurgery. Pt requesting RT closer to home, will look into the same Pain, related to malignancy -Knee and shoulder pain-2/2 mets -Steroids have been started for brain mets -MS IR done increased and freq adjusted. Has been needing IVP pain meds to help manage pain. Will see what pt is requiring over the next 24 hours and make adjustments to PO regimen -No orthopedic procedures planned, zometa ordered for bone mets -Radiation Oncology consulted. RT comleted to right knee and right shoulder -Added medications for treatment of narcotic induced constipation as pt has not had a BM since admit. Cont meds for prevention Pancytopenia -CBC in Apr was normal, pancytopenia noted during admission in 08/2024 -Pancytopenia workup ordered during previous admit. No MGUS noted, iron studies were most consistent with inflammation. -WBC normal on last check, mild anemia and thrombocytopenia. No acute interventions needed -CBC will cont to be monitored PRN. No transfusions have been needed this hospital stay so far Case discussed with admitting team today. Pt cleared for discharge from hem/onc standpoint. Pain meds and dex sent to patients pharmacy from clinic EMR
--- NOTE | 2024-12-11 19:46 | P.DS ---
Providers Date of admission: 11/27/24 05:51 Attending physician: Ann Hicks Consults: 11/28/24 14:49 Consult Physician Routine Consulting Provider: Kelly Cordova Consult Reason/Comments: breast cancer Do you want consulting provider notified?: Yes 11/29/24 18:51 Consult Physician Routine Consulting Provider: Olivia Peterson Consult Reason/Comments: LORI, possible TLS Do you want consulting provider notified?: Yes 12/01/24 13:03 Consult Physician Routine Consulting Provider: Agnieszka Arriaza Consult Reason/Comments: symptomatic brain mets, painful rt shoulder and knee bone mets Do you want consulting provider notified?: Yes 12/02/24 09:34 Consult Physician Routine Consulting Provider: Colin Saucedo Consult Reason/Comments: Right knee pain post fall prior TRK Do you want consulting provider notified?: Yes Primary care physician: Scarlet Jarquin Hospital Course: Final Diagnosis Chest pain atypical ruled out acute coronary syndrome chest pain is pleuritic in nature could be due to osseous metastatic disease Periprosthetic pathological knee fracture with concern for bony metastasis of the proximal tibia. Fall in the hospital with increased pain to the right knee Vasogenic edema with concern for dural metastatic disease Metastatic breast cancer with right mastectomy maintained on on Arimidex Acute congestive heart failure diastolic dysfunction Atrial fibrillation with rapid ventricular rate recently diagnosed in October, currently rate controlled History of paroxysmal atrial fibrillation anticoag with Eliquis Vitamin D deficiency Asthma/COPD with no acute exacerbation Pancytopenia bone marrow biopsy currently pending reports Diabetes mellitus type 2 Hypertension Hyperlipidemia Gastroesophageal reflux disease Former smoker Obesity Discharge Disposition Patient is stable for discharge home. Patient to continue oral decadron taper. She is no longer vomiting and has been tolerating regular diet. She has been transitioned to oral lasix. Oral morphine has been increased by oncology. Patient to follow up with radiation oncology in [place]. Patient has follow up with Dr. Arriola, Dr Yancey, Dr Chi. Recommending to see her PCP Dr. Yoli jarquin in 1 to 2 days. Monitor blood work. Hospital Course This is a 69-year-old female with medical history significant for asthma COPD, diabetes mellitus, hypertension, hyperlipidemia, acid reflux, migraine, right breast cancer with prior mastectomy. Patient also has history of atrial fibrillation and is anticoagulated with eliquis on an outpatient basis. Patient is also a former smoker. Presented to the hospital for a 2-day history of chest pain and shortness of breath. States that she began vomiting Saturday overnight denies having any diarrhea and denies any fever or chills. She was having some burning like sensation after the vomiting and then developed a right sided chest pain with radiation into the shoulder. She initially presented to [facility] troponin levels were negative there. Patient received Nitropaste morphine was brought down to the [facility] for further cardiac evaluation. Her proBNP is elevated at 4300 her troponin levels here have been negative x 3. Chest x-ray reveals pulmonary vascular congestion. Miroslava does state she missed multiple doses of her blood thinner because of the vomiting and GI upset. She is also complaining of worsening lower extremity edema. Patient states the right leg is always weaker than the left due a knee injury. On presentation patient was in atrial fibrillation with RVR and started on IV cardizem. She is also started on IV lasix. Patient takes oral morphine scheduled for chronic pain however has required multiple doses of IV morphine for the right shoulder pain. At this time rating it 5/10. Feels sharp in nature. Cardiology to evaluate the patient. Patient ahd CTA completed for elevated d dimer which was negative for PE did reveal progression of osseus metastatic disease for imaging in july of 2024. Patient states she had a bone biopsy done a week ago has an appt with Dr Yancey on Saturday at 4 pm. Oncology was consulted. She continues to report significant pain to her right scapular area and worse with deep inspiration. This could be due to the bony metastatic disease. She also complains of right knee pain post fall has an Nilo wrap bandage in place however pain is not improving and we will ask orthopedic to lisa luate this knee as she has had a total knee replacement done in the past on the right side. Brain MRI was completed today and was positive for 2 areas of vasogenic edema within the right foot normal enhancing focal dural thickening. This is on background diffuse dural enhancement. Findings are highly concerning for dural metastasis in the setting of known osseous metastasis. There are few small scattered enhancing osseous lesions within the calvarium concerning for possible metastasis. Nonspecific mild white matter changes without enhancement likely related to small vessel ischemic disease. Patient was started on IV decadron for the vasogenic edema. She received radiation to the right shoulder and the knee. She has a known Periprosthetic pathological knee fracture with concern for bony metastasis of the proximal tibia. Her pain has improved. Plan is for decadron oral taper and to follow up with radiology in [place] for steriotatic radiation to the brain. Patient was transitioned to oral lasix and is now on room air. She has a hinged right knee brain and worked with PT and is stable for DC home. Please see medication reconciliation for a list of current medications. Thank valentino charlton for allowing us to participate in the care of this patient. The impression and plan of care has been dictated by Claire Kay, Nurse Practitioner as directed. Dr. Joesph MD I have performed a history and physical examination and medical decision making of this patient, discussed the same with the dictator, and agree with the dictators assessment and plan as written, documented as a scribe. Based on total visit time, I have performed more than 50% of this visit. Patient Condition at Discharge: Fair Plan - Discharge Summary Discharge Rx Participant: No New Discharge Prescriptions: New Lactulose [Cephulac] 20 gm PO DAILY PRN #120 ml PRN Reason: Constipation Atorvastatin [Lipitor] 40 mg PO DAILY #30 tab Calcium Carbonate [Tums] 500 mg PO BID tab Furosemide [Lasix] 60 mg PO BID@0900,1600 #180 tab Lidocaine 4% Patch 1 patch TOPICAL DAILY #5 patch polyethylene glycoL 3350 [Miralax] 17 gm PO DAILY packet Morphine Sulfate Ir [MSIR] 30 mg PO Q4HR PRN tab PRN Reason: Pain Ergocalciferol [Vitamin D2 (1250 Mcg = 17691 Iu)] 1,250 mcg PO Q7D #3 cap Cholecalciferol [Vitamin D3 (25 Mcg = 1000 Iu)] 50 mcg PO DAILY #30 tab Lidocaine 4% Patch 1 patch TOPICAL DAILY #10 patch Continue Butalb/Acetaminophen/Caffeine [Fioricet 50-325-40 mg Tablet] 1 tab PO BID PRN PRN Reason: Migraine Headache Albuterol Sulfate [Albuterol Sulfate Hfa] 2 puff INHALATION RT-QID PRN PRN Reason: Shortness Of Breath Baclofen [Lioresal] 20 mg PO BID Pantoprazole [Protonix] 40 mg PO AC-BID #0 tab Albuterol Nebulized [Ventolin Nebulized] 2.5 mg INHALATION RT-QID Fluticasone Propion/Salmeterol [Fluticasone-Salmeterol 250-50] 1 puff INHALATION RT-BID Ondansetron Odt [Zofran ODT] 4 mg PO BID PRN PRN Reason: Nausea Apixaban [Eliquis] 5 mg PO BID 30 Days #60 tab Anastrozole [Arimidex] 1 mg PO DAILY tab Docusate [Colace] 100 mg PO DAILY Morphine Sulfate ER [Ms Contin] 30 mg PO BID Metoprolol Tartrate [Lopressor] 100 mg PO BID 30 Days #120 tab lisinopriL [Zestril] 20 mg PO DAILY 30 Days #30 tab Changed Insulin Lispro [humaLOG Kwikpen] 3 unit SQ ACHS #0 Insulin Glargine,Hum.rec.anlog [Lantus Solostar Pen] 50 units SQ HS #0 Discontinued Atorvastatin [Lipitor] 10 mg PO DAILY Furosemide [Lasix] 20 mg PO BID@0900,1600 30 Days #60 tab Morphine Sulfate Ir [MSIR] 15 mg PO Q4-6H PRN PRN Reason: Breakthrough Pain Discharge Medication List Butalb/Acetaminophen/Caffeine [Fioricet 50-325-40 mg Tablet] 1 tab PO BID PRN 04/11/14 [History] Albuterol Sulfate [Albuterol Sulfate Hfa] 2 puff INHALATION RT-QID PRN 03/09/24 [History] Baclofen [Lioresal] 20 mg PO BID 08/18/24 [History] Anastrozole [Arimidex] 1 mg PO DAILY tab 08/31/24 [Rx] Pantoprazole [Protonix] 40 mg PO AC-BID #0 tab 08/31/24 [Rx] Albuterol Nebulized [Ventolin Nebulized] 2.5 mg INHALATION RT-QID 10/24/24 [History] Docusate [Colace] 100 mg PO DAILY 10/24/24 [History] Fluticasone Propion/Salmeterol [Fluticasone-Salmeterol 250-50] 1 puff INHALATION RT-BID 10/24/24 [History] Morphine Sulfate ER [Ms Contin] 30 mg PO BID 10/24/24 [History] Ondansetron Odt [Zofran ODT] 4 mg PO BID PRN 10/24/24 [History] Apixaban [Eliquis] 5 mg PO BID 30 Days #60 tab 10/28/24 [Rx] Metoprolol Tartrate [Lopressor] 100 mg PO BID 30 Days #120 tab 10/28/24 [Rx] lisinopriL [Zestril] 20 mg PO DAILY 30 Days #30 tab 10/28/24 [Rx] Atorvastatin [Lipitor] 40 mg PO DAILY #30 tab 12/09/24 [Rx] Calcium Carbonate [Tums] 500 mg PO BID tab 12/09/24 [Rx] Cholecalciferol [Vitamin D3 (25 Mcg = 1000 Iu)] 50 mcg PO DAILY #30 tab 12/09/24 [Rx] Ergocalciferol [Vitamin D2 (1250 Mcg = 52659 Iu)] 1,250 mcg PO Q7D #3 cap 12/09/24 [Rx] Furosemide [Lasix] 60 mg PO BID@0900,1600 #180 tab 12/09/24 [Rx] Insulin Glargine,Hum.rec.anlog [Lantus Solostar Pen] 50 units SQ HS #0 12/09/24 [Rx] Insulin Lispro [humaLOG Kwikpen] 3 unit SQ ACHS #0 12/09/24 [Rx] Lactulose [Cephulac] 20 gm PO DAILY PRN #120 ml 12/09/24 [Rx] Lidocaine 4% Patch 1 patch TOPICAL DAILY #10 patch 12/09/24 [Rx] Lidocaine 4% Patch 1 patch TOPICAL DAILY #5 patch 12/09/24 [Rx] Morphine Sulfate Ir [MSIR] 30 mg PO Q4HR PRN tab 12/09/24 [Rx] polyethylene glycoL 3350 [Miralax] 17 gm PO DAILY packet 12/09/24 [Rx] Follow up Appointment(s)/Referral(s): Cherelle Chi MD [STAFF PHYSICIAN] - 1 Week (office will call back and make appointment ) [facility], [NON-STAFF] - Scarlet Jarquin MD [Primary Care Provider] - 1 Week (office did not answer, please call and make appointment) Yosef Arriola DO [STAFF PHYSICIAN] - 01/07/25 10:20 am Antonio Yancey MD [STAFF PHYSICIAN] - 12/15/24 2:45 pm Ambulatory/Diagnostic Orders: Basic Metabolic Panel [LAB.AMB] Location: None Selected Complete Blood Count w/diff [LAB.AMB] Time Frame: 3 Days, Location: None Selected Magnesium [LAB.AMB] Location: None Selected Patient Instructions/Handouts: A-fib (Atrial Fibrillation) (DC), Chest Pain (DC), Brain Metastasis (DC) Activity/Diet/Wound Care/Special Instructions: Continue oral decadron and taper this will be sent in from oncology office Continue with lidocaine patch to the right shoulder apply in the AM leave on for 12 hours and then it will need to be removed for 12 hours. Continue scheduled morphine 30 mg twice daily with morphine IR 30 mg to take every 4 hours as needed for breakthrough pain. Continue zofran as needed. Need to follow up with radiation oncology regarding stereotactic brain radiation Protected weightbearing of the right leg in a brace. Hinged knee brace that should be worn when up but can be taken off for hygiene and when resting. Continue over the counter miralax and lactulose as needed for constipation. It is important to take something to help move the bowels while you are using narcotics for pain management. Keep your follow up with Dr. Yancey on December 15. Discharge/Stand Alone Forms: Personal [place] Operator Discharge Disposition: HOME WITH HOME HEALTH SERVICES
== END 2024-12-09 15:07 | disposition home health service (06) | DRG 291 ==
LOC: EC 23:31 → 3SCARD 11-27 05:51
PROVIDERS: ADMIT Hospitalist; ATTEND Hospitalist
DX: I11.0 Hypertensive heart disease with heart failure (principal); G93.6 Cerebral edema; N17.0 Acute kidney failure with tubular necrosis; C79.31 Secondary malignant neoplasm of brain; D61.82 Myelophthisis; C79.51 Secondary malignant neoplasm of bone; M84.48XA Pathological fracture, other site, initial encounter for fracture; D69.6 Thrombocytopenia, unspecified; M97.11XA Periprosthetic fracture around internal prosthetic right knee joint, initial encounter; C50.919 Malignant neoplasm of unspecified site of unspecified female breast; J44.89 Other specified chronic obstructive pulmonary disease; E11.65 Type 2 diabetes mellitus with hyperglycemia; E66.9 Obesity, unspecified; I08.1 Rheumatic disorders of both mitral and tricuspid valves; D63.0 Anemia in neoplastic disease; K76.89 Other specified diseases of liver; Z68.41 Body mass index [BMI] 40.0-44.9, adult; E87.1 Hypo-osmolality and hyponatremia; I48.0 Paroxysmal atrial fibrillation; Z79.4 Long term (current) use of insulin; I50.32 Chronic diastolic (congestive) heart failure; Z79.01 Long term (current) use of anticoagulants; G89.29 Other chronic pain; E78.5 Hyperlipidemia, unspecified; K21.9 Gastro-esophageal reflux disease without esophagitis; T45.516A Underdosing of anticoagulants, initial encounter; R09.89 Other specified symptoms and signs involving the circulatory and respiratory systems; R00.0 Tachycardia, unspecified; E55.9 Vitamin D deficiency, unspecified; K59.00 Constipation, unspecified; K59.03 Drug induced constipation; T40.605A Adverse effect of unspecified narcotics, initial encounter; T39.395A Adverse effect of other nonsteroidal anti-inflammatory drugs [NSAID], initial encounter; W18.30XA Fall on same level, unspecified, initial encounter; Y92.230 Patient room in hospital as the place of occurrence of the external cause; Z91.138 Patient's unintentional underdosing of medication regimen for other reason; Z17.0 Estrogen receptor positive status [ER+]; Z17.21 Progesterone receptor positive status; Z17.32 Human epidermal growth factor receptor 2 negative status; Z79.899 Other long term (current) drug therapy; Z79.811 Long term (current) use of aromatase inhibitors; Z86.14 Personal history of Methicillin resistant Staphylococcus aureus infection; Z87.891 Personal history of nicotine dependence; Z90.11 Acquired absence of right breast and nipple; Z92.3 Personal history of irradiation; Z96.612 Presence of left artificial shoulder joint
CPT/HCPCS: 36410; 36415; 70553; 71045; 71046; 71275; 76937; 80048; 80053; 80061; 81001; 82040; 82306; 82728; 83540; 83550; 83735; 83880; 84100; 84145; 84484; 84550; 85025; 85379; 93005; 94640; 94760; 96365; 96366; 96375; 96376; 99291

== ENCOUNTER 2025-02-02 15:16 | Inpatient (IN) | payer MEDICARE, OTHER ==
--- NOTE | 2025-02-02 15:18 | ED ---
SOB HPI - General Stated Complaint: CHF Time Seen by Provider: 02/02/25 15:18 Source: RN notes reviewed, old records reviewed Limitations: no limitations - History of Present Illness Initial Comments: This is a 69-year-old female to the ER for evaluation of chest pain chest pain shortness of breath patient has persistent shortness of breath here in the ER A- fib with RVR on presentation excepted in transfer for outside facility for admission and cardiology evaluation. No current chest pain MD Complaint: shortness of breath, anxiety -: days(s) Severity: moderate Severity scale (1-10): 6 Consistency: constant Improves With: nothing Worsens With: nothing Known History Of: COPD, diabetes Context: recent URI, anxiety, recent illness Associated Symptoms: denies other symptoms - Related Data Home Medications Medication Instructions Recorded Confirmed Butalb/Acetaminophen/Caffeine 1 tab PO BID PRN 04/11/14 02/02/25 [Fioricet 50-325-40 mg Tablet] Albuterol Sulfate [Albuterol 2 puff INHALATION RT-Q6H PRN 03/09/24 02/02/25 Sulfate Hfa] Baclofen [Lioresal] 20 mg PO HS 08/18/24 02/02/25 Albuterol Nebulized [Ventolin 2.5 mg INHALATION RT-BID 10/24/24 02/02/25 Nebulized] Fluticasone Propion/Salmeterol 1 puff INHALATION RT-BID 10/24/24 02/02/25 [Fluticasone-Salmeterol 250-50] Morphine Sulfate ER [Ms Contin] 30 mg PO BID 10/24/24 02/02/25 Ondansetron Odt [Zofran ODT] 4 mg PO BID PRN 10/24/24 02/02/25 Budesonide/Formoterol Fumarate 2 puff INHALATION RT-BID 02/02/25 02/02/25 [Symbicort 160-4.5 Mcg Inhaler] Insulin Glargine,Hum.rec.anlog 40 units SQ HS 02/02/25 02/02/25 [Lantus Solostar Pen] Insulin Lispro [humaLOG Kwikpen] See Protocol SQ TID-W/MEALS 02/02/25 02/02/25 Morphine Sulfate Ir [MSIR] 15 - 30 mg PO Q4-6H PRN 02/02/25 02/02/25 Palbociclib [Ibrance] 100 mg PO DAILY 02/02/25 02/02/25 Pantoprazole [Protonix] 40 mg PO DAILY 02/02/25 02/02/25 amLODIPine [Norvasc] 10 mg PO DAILY 02/02/25 02/02/25 lisinopriL 40 mg PO DAILY 02/02/25 02/02/25 Previous Rx's Medication Instructions Recorded Apixaban [Eliquis] 5 mg PO BID 30 Days #60 tab 10/28/24 Atorvastatin [Lipitor] 40 mg PO DAILY #30 tab 12/09/24 Furosemide [Lasix] 60 mg PO BID@0900,1600 #180 tab 12/09/24 Lactulose [Cephulac] 20 gm PO DAILY PRN #120 ml 12/09/24 Allergies Allergy/AdvReac Type Severity Reaction Status Date / Time gabapentin AdvReac Confusion Verified 02/02/25 17:00 ibuprofen [From Motrin] AdvReac Abdominal Verified 02/02/25 17:00 Pain and vomiting pregabalin [From Lyrica] AdvReac Confusion Verified 02/02/25 17:00 Review of Systems ROS Statement: Those systems with pertinent positive or pertinent negative responses have been documented in the HPI. ROS Other: All systems not noted in ROS Statement are negative. Past Medical History Past Medical History: Asthma, Cancer, COPD, Diabetes Mellitus, GERD/Reflux, Hyperlipidemia, Hypertension, Musculoskeletal Disorder Additional Past Medical History / Comment(s): Migraine headaches. Hx kidney ston e. Chronic back pain, numbness and tingling bilateral lower extremities. Right Breast cancer History of Any Multi-Drug Resistant Organisms: None Reported, MRSA Date of last positivie culture/infection: 2011 MDRO Source:: UNK Past Surgical History: Appendectomy, Back Surgery, Breast Surgery, Cholecy stectomy, Joint Replacement, Orthopedic Surgery Additional Past Surgical History / Comment(s): Fusion w/ kane also back surgery 04/21/2019. Left Shoulder Replacement, Right knee replacement, plate in right wrist, left thumb joint repair, Right CTR, Right shoulder arthroscopy. micheal cataracts, LARYNGOSCOPY, November 2016 Cervical Plate, PAIN CLINIC PROCEDURES, right masectomy Past Anesthesia/Blood Transfusion Reactions: No Reported Reaction Past Psychological History: No Psychological Hx Reported Smoking Status: Former smoker - Past Family History Brother(s) Family Medical History: Cancer, Myocardial Infarction ([place]) Father Family Medical History: Cancer Additional Family Medical History / Comment(s): throat, colon, liver, and brain cancer. Mother Family Medical History: Myocardial Infarction (ND) Additional Family Medical History / Comment(s): at 54 of [place]. General Exam General appearance: alert, in no apparent distress, anxious Head exam: Present: atraumatic, normocephalic, normal inspection Eye exam: Present: normal appearance, PERRL, EOMI. Absent: scleral icterus, conjunctival injection, periorbital swelling ENT exam: Present: normal exam, mucous membranes moist Neck exam: Present: normal inspection. Absent: tenderness, meningismus, lymphadenopathy Respiratory exam: Present: respiratory distress, wheezes, accessory muscle use, decreased breath sounds, prolonged expiratory. Absent: rales, rhonchi, stridor Cardiovascular Exam: Present: tachycardia, irregular rhythm, normal heart sounds. Absent: systolic murmur, diastolic murmur, rubs, gallop, clicks GI/Abdominal exam: Present: soft, normal bowel sounds. Absent: distended, tenderness, guarding, rebound, rigid Extremities exam: Present: normal inspection, full ROM, normal capillary refill. Absent: tenderness, pedal edema, joint swelling, calf tenderness Back exam: Present: normal inspection Neurological exam: Present: alert, oriented X3, CN II-XII intact Psychiatric exam: Present: normal affect, normal mood Skin exam: Present: warm, dry, intact, normal color. Absent: rash Course Vital Signs 02/02/25 02/02/25 02/02/25 15:19 15:28 16:38 Temperature 97.6 F Pulse Rate 116 H 110 H Pulse Rate [ Tree Puller ] Respiratory 20 20 Rate Blood Pressure 147/99 153/97 Blood Pressure [Left Arm] O2 Sat by Pulse 99 98 Oximetry 02/02/25 02/02/25 02/02/25 16:47 17:42 17:57 Temperature 98.2 F Pulse Rate 80 105 H 116 H Pulse Rate [ Tree Puller ] Respiratory 22 22 22 Rate Blood Pressure 124/77 128/98 136/77 Blood Pressure [Left Arm] O2 Sat by Pulse 98 97 98 Oximetry 02/02/25 18:22 Temperature 97.9 F Pulse Rate Pulse Rate [ 103 H Tree Puller ] Respiratory 20 Rate Blood Pressure Blood Pressure 130/85 [Left Arm] O2 Sat by Pulse 100 Oximetry - Reevaluation(s) Reevaluation #1: 02/02/25 16:48 Medical records reviewed Transfer paperwork reviewed including CT scanning showing positive pleural effusion Reevaluation #2: 02/02/25 16:49 Patient heart rate improving here in the ER Reevaluation #3: 02/02/25 16:49 Patient informed of results questions answered Reevaluation #4: Was pt. sent in by a medical professional or institution (JENNIFER Alva, NURSE RN BSN, urgent care, hospital, or senior living...) When possible be specific @ -no Did you speak to anyone other than the patient for history (EMS, parent, family, police, friend...)? What history was obtained from this source @ -no Did you review nursing and triage notes (agree or disagree)? Why? @ -agree Are old charts reviewed (outside hosp., previous admission, EMS record, old EKG, old radiological studies, urgent care reports/EKG's, senior living records)? Report findings @ -yes Differential Diagnosis (chest pain, altered mental status, abdominal pain women, abdominal pain men, vaginal bleeding, weakness, fever, dyspnea, syncope, headache, dizziness, GI bleed, back pain, seizure, CVA, palpatations, mental health, musculoskeletal)? @ -prior EKG interpreted by me (3pts min.). @ -yes X-rays interpreted by me (1pt min.). @ -yes negative for acute disease CT interpreted by me (1pt min.). @ -no U/S interpreted by me (1pt. min.). @ -no What testing was considered but not performed or refused? (CT, X-rays, U/S, labs)? Why? @ -none What meds were considered but not given or refused? Why? @ -none Did you discuss the management of the patient with other professionals (professionals i.e. JENNIFER Alva, NURSE RN BSN, lab, RT, psych nurse, child welfare social worker, weather strip installer, teacher, highway patrol officer, case reviewer)? Give summary @ -no Was smoking cessation discussed for >3mins.? @ -no Was critical care preformed (if so, how long)? @ -yes31 Were there social determinants of health that impacted care today? How? (Homelessness, low income, unemployed, alcoholism, drug addiction, transportation, low edu. Level, literacy, decrease access to med. care, fpc, rehab)? @ -none Was there de-escalation of care discussed even if they declined (Discuss DNR or withdrawal of care, Hospice)? DNR status @ -no What co-morbidities impacted this encounter? (DM, HTN, Smoking, COPD, CAD, Cancer, CVA, ARF, Chemo, Hep., AIDS, mental health diagnosis, sleep apnea, morbid obesity)? @ -none Was patient admitted / discharged? Hospital course, mention meds given and route, prescriptions, significant lab abnormalities, going to OR and other pertinent info. @ - 69 female sent to the ER for A-fib with RVR CHF excepted in transfer from outside facility for admission to our hospital cardiology evaluation Admitted Undiagnosed new problem with uncertain prognosis? @ -no Drug Therapy requiring intensive monitoring for toxicity (Heparin, Nitro, Insulin, Cardizem)? @ -no Were any procedures done? @ -no Diagnosis/symptom? @ -A-fib with RVR, CHF chest pain Acute, or Chronic, or Acute on Chronic? @ -Acute Uncomplicated (without systemic symptoms) or Complicated (systemic symptoms)? @ -Complicated Side effects of treatment? @ -no Exacerbation, Progression, or Severe Exacerbation? @ -exacerbation Poses a threat to life or bodily function? How? (Chest pain, [place], [place], pneumonia, PE, COPD, DKA, ARF, appy, cholecystitis, CVA, Diverticulitis, Homicidal, Suicidal, threat to staff... and all critical care pts) @ -yes respiratory distress arrhythmia Reevaluation #5: Differential Dyspnea: Coronary syndrome, arrhythmia, tamponade, asthma, COPD, pulmonary embolism, pneumonia, pneumothorax, pulmonary effusion, anaphylaxis, diabetic ketoacidosis, flailed chest, pulmonary contusion, diaphragmatic rupture, anemia, neuromuscular, this is not meant to be an all-inclusive list. Differential Palpitations Ventricular arrhythmias, atrial arrhythmias, myocardial infarction, anemia, thyrotoxicosis, electrolyte imbalance, hypokalemia, pulmonary embolism, pulmonary disease, drugs, alcohol, anxiety, stress.... This is not meant to be an all-inclusive list. - Consultations Consultation #1: Spoke with [facility] who agrees to admit this patient Medical Decision Making - Medical Decision Making 69 female sent to the ER for A-fib with RVR CHF excepted in transfer from outside facility for admission to our hospital cardiology evaluation - Lab Data Result diagrams: 02/09/25 08:23 02/07/25 06:45 Lab Results 02/02/25 02/02/25 02/02/25 Range/Units 15:45 15:45 15:45 WBC 4.51 (4.50-10.00) 10*3/uL RBC 3.08 L (4.10-5.20) 10*6/uL Hgb 8.5 L (12.0-15.0) g/dL Hct 27.4 L (37.2-46.3) % MCV 89.0 (80.0-97.0) fL MCH 27.6 (27.0-32.0) pg MCHC 31.0 L (32.0-37.0) g/dL Plt Count 70 L (140-440) 10*3/uL MPV 9.8 (9.5-12.2) fL Immature Gran % (Auto) 7.7 % Neutrophils % (Manual) 78 % Lymphocytes % (Manual) 19 % Monocytes % (Manual) 3 % Eosinophils % (Manual) 1 % Immature Gran # 0.37 H (0.00-0.04) 10*3/uL Neutrophils # (Manual) 3.52 (1.3-7.7) k/uL Lymphocytes # (Manual) 0.86 L (1.0-4.8) k/uL Monocytes # (Manual) 0.14 (0-1.0) k/uL Eosinophils # (Manual) 0.05 (0-0.7) k/uL Nucleated RBCs 6 H (0-0) /100 WBC Manual Slide Review Performed PT 11.3 (10.0-12.5) sec INR 1.0 (<1.2) APTT 20.9 L (22.0-30.0) sec Sodium 136 L (137-145) mmol/L Potassium 4.5 (3.5-5.1) mmol/L Chloride 99 (98-107) mmol/L Carbon Dioxide 26 (22-30) mmol/L Anion Gap 11 mmol/L BUN 11 (7-17) mg/dL Creatinine 0.66 (0.52-1.04) mg/dL Est GFR (CKD-EPI)AfAm >90 (>60 ml/min/1.73 sqM) Est GFR (CKD-EPI)NonAf >90 (>60 ml/min/1.73 sqM) Glucose 185 H (74-99) mg/dL Calcium 8.9 (8.4-10.2) mg/dL Magnesium 2.2 (1.6-2.3) mg/dL Total Bilirubin 1.9 H (0.2-1.3) mg/dL AST 40 H (14-36) U/L ALT 15 (4-34) U/L Alkaline Phosphatase 640 H (38-126) U/L Troponin I (0.000-0.034) ng/mL NT-Pro-B Natriuret Pep 3430 pg/mL Total Protein 6.8 (6.3-8.2) g/dL Albumin 3.7 (3.5-5.0) g/dL Lipase 24 (23-300) U/L // Range/Units 15:45 WBC (4.50-10.00) 10*3/uL RBC (4.10-5.20) 10*6/uL Hgb (12.0-15.0) g/dL Hct (37.2-46.3) % MCV (80.0-97.0) fL MCH (27.0-32.0) pg MCHC (32.0-37.0) g/dL Plt Count (140-440) 10*3/uL MPV (9.5-12.2) fL Immature Gran % (Auto) % Neutrophils % (Manual) % Lymphocytes % (Manual) % Monocytes % (Manual) % Eosinophils % (Manual) % Immature Gran # (0.00-0.04) 10*3/uL Neutrophils # (Manual) (1.3-7.7) k/uL Lymphocytes # (Manual) (1.0-4.8) k/uL Monocytes # (Manual) (0-1.0) k/uL Eosinophils # (Manual) (0-0.7) k/uL Nucleated RBCs (0-0) /100 WBC Manual Slide Review PT (10.0-12.5) sec INR (<1.2) APTT (22.0-30.0) sec Sodium (137-145) mmol/L Potassium (3.5-5.1) mmol/L Chloride (98-107) mmol/L Carbon Dioxide (22-30) mmol/L Anion Gap mmol/L BUN (7-17) mg/dL Creatinine (0.52-1.04) mg/dL Est GFR (CKD-EPI)AfAm (>60 ml/min/1.73 sqM) Est GFR (CKD-EPI)NonAf (>60 ml/min/1.73 sqM) Glucose (74-99) mg/dL Calcium (8.4-10.2) mg/dL Magnesium (1.6-2.3) mg/dL Total Bilirubin (0.2-1.3) mg/dL AST (14-36) U/L ALT (4-34) U/L Alkaline Phosphatase (38-126) U/L Troponin I <0.012 (0.000-0.034) ng/mL NT-Pro-B Natriuret Pep pg/mL Total Protein (6.3-8.2) g/dL Albumin (3.5-5.0) g/dL Lipase (23-300) U/L - EKG Data -: EKG Interpreted by Me (EKG is A-fib with RVR 126 QRS 93 QTc 383) - Radiology Data Radiology results: report reviewed (Chest x-ray positive pleural effusion CT scan chest no PE positive pleural effusion) Critical Care Time Critical Care Time: Yes Total Critical Care Time: 31 Disposition Clinical Impression: Atypical chest pain, COPD exacerbation, Acute exacerbation of chronic obstructive pulmonary disease (COPD), CHF (congestive heart failure), Weakness, Atrial fibrillation with rapid ventricular response, Pleural effusion Disposition: ADMITTED IP TO THIS HOSP Condition: Fair Is patient prescribed a controlled substance at d/c from ED?: No Time of Disposition: 16:45
[2025-02-02 15:57] LABS: HCT 27.4 % (37.2-46.3); HGB 8.5 g/dL (12.0-15.0); MCH 27.6 pg (27.0-32.0); Mean Platelet Volume 9.8 fL (9.5-12.2); RBC 3.08 10*6/uL (4.10-5.20); RDW 19.4 % (11.5-14.5)
[2025-02-02 16:20] LABS: ALT 15 U/L (4-34); AST 40 U/L (14-36); African American GFR (CKD) >90 (>60 ml/min/1.73 sqM); Albumin 3.7 g/dL (3.5-5.0); Anion Gap 11 mmol/L; Blood Urea Nitrogen 11 mg/dL (7-17); Calcium 8.9 mg/dL (8.4-10.2); Carbon Dioxide 26 mmol/L (22-30); Chloride 99 mmol/L (98-107); Glucose 185 mg/dL (74-99); Lipase 24 U/L (23-300); Magnesium 2.2 mg/dL (1.6-2.3); Non-African American GFR(CKD) >90 (>60 ml/min/1.73 sqM); Potassium 4.5 mmol/L (3.5-5.1); Sodium 136 mmol/L (137-145); Total Bilirubin 1.9 mg/dL (0.2-1.3); Total Protein 6.8 g/dL (6.3-8.2)
[2025-02-02 16:27] LABS: NT-Pro-B-Type Natriuretic Pept 3430 pg/mL
[2025-02-02 16:28] LABS: Partial Thromboplastin Time 20.9 sec (22.0-30.0); Prothrombin Time 11.3 sec (10.0-12.5)
[2025-02-02] MEDS: ONDANSETRON 4 MG/2 ML VIAL IVP STA (16:36)
[2025-02-02] MEDS: MORPHINE SULFATE 4 MG/ML SYRINGE IVP STA (16:39)
[2025-02-02] MEDS: DILTIAZEM 5 MG/ML 5 ML VIAL IVP STA (16:42)
[2025-02-02] MEDS ORDERED: NALOXONE 0.4 MG/ML 1 ML VIAL IV PRN (16:46)
[2025-02-02] MEDS: DILTIAZEM 125 MG in DEXTROSE 5% IN WATER 100 ML IV SCH (16:47)
[2025-02-02 16:56] LABS: Alkaline Phosphatase 640 U/L (38-126)
[2025-02-02] MEDS: SODIUM CHLORIDE 0.9% 1,000 ML IV SCH (16:58)
[2025-02-02 17:09] LABS: Eosinophils # (M) 0.05 k/uL (0-0.7); Monocytes # (M) 0.14 k/uL (0-1.0); Neutrophils % (M) 78 %; Nucleated Red Blood Cells 6 /100 WBC (0-0); Total Cells Counted 200
[2025-02-02 17:10] LABS: Lymphocytes # (M) 0.86 k/uL (1.0-4.8); Neutrophils # (M) 3.52 k/uL (1.3-7.7); Platelet Count 70 10*3/uL (140-440); WBC 4.51 10*3/uL (4.50-10.00)
[2025-02-02] MEDS ORDERED: LACTULOSE 20 GM/30 ML CUP PO PRN (17:12)
[2025-02-02] MEDS ORDERED: BUTALB/APAP/CAFF 50-325-40MG TAB PO PRN (17:12)
[2025-02-02] MEDS ORDERED: IPRATROPIUM-ALBUTEROL 3 ML NEB INHALATION PRN (17:13)
--- NOTE | 2025-02-02 17:27 | XR ---
EXAMINATION TYPE: XR chest 2V DATE OF EXAM: 02/02/2025 5:21 PM COMPARISON: 12/05/2024 CLINICAL INDICATION: Female, 69 years old with history of chest pain, TECHNIQUE: XR chest 2V view(s) obtained. FINDINGS: The heart size is enlarged. The pulmonary vasculature is normal. There is a small to moderate left pleural fluid collection. Patchy infiltrate is present. Correlate f or atelectasis or pneumonia. A mild right pleural effusion is present.. IMPRESSION: 1. Patchy infiltrate with a moderate left pleural effusion and minimal right pleural effusion. Correl ate for pneumonia. Follow-up recommended [facility] Yudith Valerio, , 02/02/2025 5:25 PM
[2025-02-02] MEDS: MORPHINE SULFATE IR 15 MG TABLET PO PRN (18:33)
--- NOTE | 2025-02-02 19:57 | HP ---
HISTORY AND PHYSICAL CHIEF COMPLAINT: Shortness of breath. HISTORY OF PRESENT ILLNESS: This 69-year-old woman with a past medical history of multiple medical problems including asthma, COPD, presented to [facility] with complaints of shortness of breath. The patient also complaining of some chest pain. The patient apparently had some rib fractures associated with cough at this time and the patient also found to in atrial ablation, rapid ventricular rate. The patient was transferred to [facility], admitted for evaluation. There is no history of fever, rigors, or chills at this time. PAST MEDICAL HISTORY: Reviewed. Asthma and COPD. Rest of history and the chart is also reviewed. HOME MEDICATIONS: Reviewed include Norvasc. Doses and the rest of the medications are reviewed. ALLERGIES: Gabapentin. FAMILY HISTORY: History of cancer. SOCIAL HISTORY: Previous history of smoking. REVIEW OF SYSTEMS: A 14-point review of systems is negative, except as mentioned earlier. PHYSICAL EXAMINATION: VITAL SIGNS: Pulse is 110, blood pressure 150/90, and respirations 20. HEENT: Conjunctivae normal. NECK: No jugular venous distention. CARDIOVASCULAR: S1, S2. RESPIRATION: Breath sounds diminished at the bases. A few scattered rhonchi and crackles. ABDOMEN: Soft, nontender. LEGS: Bilateral leg edema. NERVOUS SYSTEM: Diffusely weak. LABORATORY DATA: Hemoglobin 8.4. Rest of the labs are noted. ASSESSMENT: 1. Shortness of breath, possible congestive heart failure, acute exacerbation. 2. Atrial fibrillation with fast ventricular rate. 3. Chest pain, possibly musculoskeletal rule out coronary artery disease. 4. Anemia. 5. History of asthma, chronic obstructive pulmonary disease. 6. Hypertension. 7. Hyperlipidemia. 8. History of migraine headaches. 9. Multiple complex medical issues. 10.History of degenerative joint disease. 11.History of metastatic breast cancer with right mastectomy, maintained on Arimidex. RECOMMENDATIONS AND DISCUSSION: This 69-year-old woman, presented with multiple complex medical issues. At this time, we will monitor the patient closely. I would recommend to continue the current medications. The patient was recently admitted to the hospital with atypical chest pain and periprosthetic pathologic knee fracture. We will continue to monitor. Symptomatic treatment provided. See orders for further details. We will consult Cardiology and Pulmonology. Guarded prognosis. Further recommendations to follow. Repeat labs will be ordered. MMODL / IJN: [id number] /
[2025-02-02 20:06] LABS: Glucose,Whole Blood 291 mg/dL (70-110)
[2025-02-02] MEDS: APIXABAN 5 MG TAB PO SCH (20:39)
[2025-02-02] MEDS: INSULIN GLARGINE (LANTUS) 100 UNIT/ML SYR SQ SCH (20:39)
[2025-02-02] MEDS: BACLOFEN 10 MG TAB PO SCH (20:39)
[2025-02-02] MEDS: MORPHINE SULFATE ER 30 MG TABLET PO SCH (21:14)
[2025-02-02] MEDS: SYMBICORT 160-4.5 MCG INHALER INHALATION SCH (21:22)
[2025-02-02] MEDS: IPRATROPIUM-ALBUTEROL 3 ML NEB INHALATION SCH (21:22)
[2025-02-02] MEDS: MORPHINE SULFATE 4 MG/ML SYRINGE IVP PRN (23:50)
--- NOTE | 2025-02-03 00:50 | P.CNPUL ---
History of Present Illness Consult date: 02/02/25 Requesting physician: Ann Hicks Reason for consult: COPD Chief complaint: Right-sided chest pain History of present illness: Patient is a 69-year-old female with past medical history significant for asthma/COPD, hypertension, hyperlipidemia, diabetes mellitus, atrial fibrillation, breast cancer with previous right mastectomy in 2021 followed by radiation and anastrozole. More recently, concerns of diffuse osseous metastasis, reportedly biopsied at [facility]. Abdominal CT from August, demonstrating diffuse osseous metastatic disease. Subacute fracture of the left rib 11. Brain MRI done 12/02/2024 showing 2 focal regions of vasogenic edema within the right frontal lobe and right anterior temporal lobe with adjacent abnormal enhancing focal dural thickening on a background of diffuse dural enhancement. Findings concerning for dural metastasis in the setting of known osseous metastasis. She is seeing Dr. Yancey from medical oncology and Dr. Gutiérrez from radiation oncology. Currently on Ibrance. Of note, patient also recently hospitalized October, with atrial fibrillation with RVR and CHF exacerbation. Echocardiogram done during this hospitalization estimated left ventricular ejection fraction of 55 to 60% moderate mitral regurgitation, mild pulmonary hypertension, and mild TR. She does take Lasix on outpatient basis and denies missing any doses. Patient was transferred from [facility] yesterday afternoon. Apparently last night developed severe right-sided chest pain with associated shortness of breath. On arrival to the outside facility she was found to be in atrial fibrillation with RVR. She does have history of patient is maintained on Eliquis. She did have a chest CT angiogram at outside facility reportedly negative for pulmonary embolism. Did demonstrate cardiomegaly, with moderate bilateral pleural effusions suggestive o f congestive heart failure and/or volume overload. Right basilar consolidation favoring compressive atelectasis. Extensive diffuse sclerotic metastatic disease with more acute appearing minimally displaced anterior right rib fracture. Subacute healing posterior lateral left-sided rib fracture. Patient has since been placed on a Cardizem infusion for rate control of her atrial fibrillation. Also started on Lasix 60 mg twice daily. Labs including a CBC with a WBC count of 4.5, hemoglobin 8.5, platelets 70,000. CMP with a sodium 136, potassium 4.5, chloride 99, serum bicarb 26, BUN 11, creatinine 0.66, glucose 185. Calcium 8.9. ALP 640. AST 40, ALT 15. Troponins less than 0.012 x 3. NT proBN 3430. Patient currently being evaluated in the cardiac floor. She is resting comfortably on 2 L/min nasal cannula. Continues on Cardizem at 5 mg/h. Normal saline infusing at 75 mm/h. Her chief complaint at this time is right sided chest/rib pain. Rated 10/10 on a 10 point numerical scale. Worse with palpation, coughing, or even deep breathing. Denies any recent falls or trauma. Follow-up chest x-ray showing cardiomegaly, pulmonary vascular congestion, with bilateral pleural effusions, left greater than right left-sided associated atelectasis or infectious process. No identifiable pneumothoraces. She does report a history of heart failure. Denies missing any doses of Lasix. Does have some lower extremity pitting edema. Denies any heart palpitations, lightheadedness, syncopal events. Patient denies any sick contacts. Denies URI-like symptoms. Denies coughing. No wheezing. Denies any fevers or chills. Denies nausea, vomiting, diarrhea. Oral intake has been fair. Reportedly does have a history of asthma/COPD. She uses a Symbicort inhaler as well as as nee ded rescue inhaler at home, which have already been continued here. Review of Systems Constitutional: Reports fatigue, Denies chills, Denies fever, Denies poor appetite, Denies sweats, Denies weight gain, Denies weight loss Ears, nose, mouth and throat: Denies headache, Denies nasal congestion, Denies nasal discharge, Denies post-nasal drip, Denies sinus pain, Denies sinus pressure, Denies sore throat Cardiovascular: Reports chest pain, Reports leg edema, Denies lightheadedness, Denies orthopnea, Denies palpitations, Denies paroxysmal nocturnal dyspnea, Denies syncope Respiratory: Reports as per HPI Gastrointestinal: Denies abdominal pain, Denies diarrhea, Denies hematemesis, Denies hematochezia, Denies melena, Denies nausea, Denies vomiting Genitourinary: Denies dysuria, Denies hematuria Musculoskeletal: Reports gait dysfunction (Ambulates with walker), Reports low back pain Integumentary: Denies rash, Denies unusual bruising Neurological: Denies seizures, Denies syncope Psychiatric: Denies anxiety, Denies depression Past Medical History Past Medical History: Atrial Fibrillation, Asthma, Cancer, COPD, Diabetes Mellitus, GERD/Reflux, Hyperlipidemia, Hypertension, Musculoskeletal Disorder Additional Past Medical History / Comment(s): Migraine headaches. Hx kidney stone. Chronic back pain, numbness and tingling bilateral lower extremities. Right Breast cancer History of Any Multi-Drug Resistant Organisms: None Reported, MRSA Date of last positivie culture/infection: 2011 MDRO Source:: UNK Past Surgical History: Appendectomy, Back Surgery, Breast Surgery, Cholecystectomy, Joint Replacement, Orthopedic Surgery Additional Past Surgical History / Comment(s): Fusion w/ kane also back surgery 04/21/2019. Left Shoulder Replacement, Right knee replacement, plate in right wrist, left thumb joint repair, Right CTR, Right shoulder arthroscopy. micheal cataracts, LARYNGOSCOPY, November 2016 Cervical Plate, PAIN CLINIC PROCEDURES, rig ht masectomy Past Anesthesia/Blood Transfusion Reactions: No Reported Reaction Past Psychological History: No Psychological Hx Reported Smoking Status: Former smoker Past Alcohol Use History: None Reported Past Drug Use History: None Reported - Past Family History Brother(s) Family Medical History: Cancer, Myocardial Infarction ([place]) Father Family Medical History: Cancer Additional Family Medical History / Comment(s): Throat, colon, liver, and brain cancer. Mother Family Medical History: Myocardial Infarction ([place]) Additional Family Medical History / Comment(s): at 54 of [place]. Medications and Allergies Home Medications Medication Instructions Recorded Confirmed Type Butalb/Acetaminophen/Caffeine 1 tab PO BID PRN 04/11/14 02/02/25 History [Fioricet 50-325-40 mg Tablet] Albuterol Sulfate [Albuterol 2 puff INHALATION RT-Q6H PRN 03/09/24 02/02/25 History Sulfate Hfa] Baclofen [Lioresal] 20 mg PO HS 08/18/24 02/02/25 History Albuterol Nebulized [Ventolin 2.5 mg INHALATION RT-BID 10/24/24 02/02/25 History Nebulized] Fluticasone Propion/Salmeterol 1 puff INHALATION RT-BID 10/24/24 02/02/25 History [Fluticasone-Salmeterol 250-50] Morphine Sulfate ER [Ms Contin] 30 mg PO BID 10/24/24 02/02/25 History Ondansetron Odt [Zofran ODT] 4 mg PO BID PRN 10/24/24 02/02/25 History Apixaban [Eliquis] 5 mg PO BID 30 Days #60 tab 10/28/24 02/02/25 Rx Atorvastatin [Lipitor] 40 mg PO DAILY #30 tab 12/09/24 02/02/25 Rx Furosemide [Lasix] 60 mg PO BID@0900,1600 #180 tab 12/09/24 02/02/25 Rx Lactulose [Cephulac] 20 gm PO DAILY PRN #120 ml 12/09/24 02/02/25 Rx Budesonide/Formoterol Fumarate 2 puff INHALATION RT-BID 02/02/25 02/02/25 History [Symbicort 160-4.5 Mcg Inhaler] Insulin Glargine,Hum.rec.anlog 40 units SQ HS 02/02/25 02/02/25 History [Lantus Solostar Pen] Insulin Lispro [humaLOG Kwikpen] See Protocol SQ TID-W/MEALS 02/02/25 02/02/25 History Morphine Sulfate Ir [MSIR] 15 - 30 mg PO Q4-6H PRN 02/02/25 02/02/25 History Palbociclib [Ibrance] 100 mg PO DAILY 02/02/25 02/02/25 History Pantoprazole [Protonix] 40 mg PO DAILY 02/02/25 02/02/25 History amLODIPine [Norvasc] 10 mg PO DAILY 02/02/25 02/02/25 History lisinopriL 40 mg PO DAILY 02/02/25 02/02/25 History Allergies Allergy/AdvReac Type Severity Reaction Status Date / Time gabapentin AdvReac Confusion Verified 02/02/25 17:00 ibuprofen [From Motrin] AdvReac Abdominal Verified 02/02/25 17:00 Pain and vomiting pregabalin [From Lyrica] AdvReac Confusion Verified 02/02/25 17:00 Physical Exam Vitals: Vital Signs Temp Pulse Pulse Resp BP BP Pulse Ox 02/02/25 21:32 101 H 20 02/02/25 21:23 106 H 22 02/02/25 20:00 98.2 F 129 H 19 138/85 100 02/02/25 18:49 103 H 02/02/25 18:22 97.9 F 103 H 20 130/85 100 02/02/25 17:57 98.2 F 116 H 22 136/77 98 02/02/25 17:42 105 H 22 128/98 97 02/02/25 16:47 80 22 124/77 98 02/02/25 16:38 110 H 20 153/97 98 02/02/25 15:28 97.6 F 02/02/25 15:19 116 H 20 147/99 99 Intake and Output 02/02/25 02/02/25 02/03/25 14:59 22:59 06:59 Output Total 750 Balance -750 Output: Urine 750 Other: Voiding Method External Catheter Weight 90.718 kg GENERAL EXAM: Alert, obese 69-year-old female, on 2 L/min nasal cannula, in no apparent distress. HEAD: Normocephalic and atraumatic EYES: Normal reaction of pupils, equal size. NOSE: Clear with pink turbinates. THROAT: No erythema or exudates. NECK: No masses, no JVD. CHEST: No chest wall deformity. No crepitus or subcutaneous emphysema. LUNGS: Equal air entry with diminished bibasilar lung sounds. No wheezes, rhonchi. No conversational dyspnea or accessory muscle use.. CVS: S1 and S2 normal with grade 2 systolic murmur, irregular rhythm. No extra heart sounds ABDOMEN: No hepatosplenomegaly, active bowel sounds, no guarding or rigidity. SPINE: No scoliosis or deformity SKIN: No rashes CENTRAL NERVOUS SYSTEM: No focal deficits, tone is normal in all 4 extremities. EXTREMITIES: There is bilateral lower extremity 2-3+ pitting edema. No clubbing or cyanosis. Peripheral pulses are intact. Results - Laboratory Findings CBC and BMP: 02/02/25 15:45 02/02/25 15:45 PT/INR, D-dimer PT 11.3 sec (10.0-12.5) 02/02/25 15:45 INR 1.0 (<1.2) 02/02/25 15:45 Abnormal lab findings: Abnormal Labs 02/02/25 02/02/25 02/02/25 15:45 15:45 15:45 RBC 3.08 L Hgb 8.5 L Hct 27.4 L MCHC 31.0 L Plt Count 70 L Immature Gran # 0.37 H Lymphocytes # (Manual) 0.86 L Nucleated RBCs 6 H APTT 20.9 L Sodium 136 L Glucose 185 H POC Glucose (mg/dL) Total Bilirubin 1.9 H AST 40 H Alkaline Phosphatase 640 H 02/02/25 20:05 RBC Hgb Hct MCHC Plt Count Immature Gran # Lymphocytes # (Manual) Nucleated RBCs APTT Sodium Glucose POC Glucose (mg/dL) 291 H Total Bilirubin AST Alkaline Phosphatase - Diagnostic Findings Chest x-ray: image reviewed Assessment and Plan Assessment: Atrial fibrillation with RVR, currently on Cardizem infusion at 5 mg/h, Eliquis has also been resumed Exacerbation of diastolic congestive heart failure Chest pain secondary to pathological right rib fracture and diffuse osseous metastasis; chest CT angiogram from outside facility reportedly negative for pulmonary embolism. Did demonstrate cardiomegaly, with moderate bilateral pleural effusions suggestive of congestive heart failure and/or volume overload. Right basilar consolidation favoring compressive atelectasis. Extensive diffus e sclerotic metastatic disease with more acute appearing minimally displaced anterior right rib fracture. Subacute healing posterior lateral left-sided rib fracture Acute hypoxemic respiratory failure, currently on 2 L nasal cannula, secondary to a combination of above, chest x-ray performed at our facility showing cardiomegaly, pulmonary vascular congestion, with bilateral pleural effusions, left greater than right left-sided associated atelectasis or infectious process. No identifiable pneumothoraces. NT-proBNP elevated at 3430 Mild intermittent asthma/COPD Bicytopenia, with anemia and thrombocytopenia Breast cancer status post right-sided mastectomy in 2021, followed by radiation and anastrozole Diffuse osseous metastasis, reportedly biopsied at [facility] Concerns for brain metastasis, brain MRI done 12/02/2024 showing 2 focal regions of vasogenic edema within the right frontal lobe and right anterior temporal lobe with adjacent abnormal enhancing focal dural thickening on a background of diffuse dural enhancement. Findings concerning for dural metastasis in the setting of known osseous metastasis. Currently on Ibrance. History of right total knee arthroplasty and nondisplaced periprosthetic fracture along the anterior aspect of the tibial tray component. Chronic pain, secondary to malignancy Hypertension History of hyperlipidemia Insulin-dependent diabetes mellitus Gastroesophageal reflux disease Obesity, with a BMI of 36.6 kg/m Plan: Patient's medications, labs, chest x-ray reviewed Continue Lasix 60 mg twice daily Continue Cardizem infusion for rate control Eliquis has been restarted Continue Symbicort inhaler, as well as, [place] [id number] Continue pain management Provide patient with incentive spirometer Prognosis certainly guarded secondary to above-mentioned comorbidity Case to be reviewed with Dr. Mulligan, further recommendations to follow I have personally seen and examined the patient, performed the documentation and the assessment and plan as written. Number of minutes spent on the visit:20 This dictation was produced using [employer] dictation software please excuse grammatical errors Time with Patient: Greater than 30
[2025-02-03 06:03] LABS: Glucose,Whole Blood 184 mg/dL (70-110)
[2025-02-03 07:23] LABS: ALT 14 U/L (4-34); AST 31 U/L (14-36); African American GFR (CKD) 68 (>60 ml/min/1.73 sqM); Albumin 3.4 g/dL (3.5-5.0); Alkaline Phosphatase 475 U/L (38-126); Anion Gap 6 mmol/L; Blood Urea Nitrogen 17 mg/dL (7-17); Calcium 8.3 mg/dL (8.4-10.2); Carbon Dioxide 30 mmol/L (22-30); Chloride 100 mmol/L (98-107); Glucose 153 mg/dL (74-99); Magnesium 2.1 mg/dL (1.6-2.3); Non-African American GFR(CKD) 59 (>60 ml/min/1.73 sqM); Phosphorus 3.7 mg/dL (2.5-4.5); Potassium 4.4 mmol/L (3.5-5.1); Sodium 136 mmol/L (137-145); Total Bilirubin 1.1 mg/dL (0.2-1.3); Total Protein 6.1 g/dL (6.3-8.2)
[2025-02-03 07:24] LABS: HCT 23.5 % (37.2-46.3); HGB 7.1 g/dL (12.0-15.0); MCH 27.5 pg (27.0-32.0); MCHC 30.2 g/dL (32.0-37.0); MCV 91.1 fL (80.0-97.0); Mean Platelet Volume 9.5 fL (9.5-12.2); RBC 2.58 10*6/uL (4.10-5.20); RDW 19.5 % (11.5-14.5); WBC 5.87 10*3/uL (4.50-10.00)
[2025-02-03 07:34] LABS: Platelet Count 67 10*3/uL (140-440)
[2025-02-03] MEDS: ATORVASTATIN 40 MG TAB PO SCH (08:55)
[2025-02-03] MEDS: METOPROLOL TARTRATE 50 MG TAB PO SCH (08:55)
[2025-02-03] MEDS: FUROSEMIDE 20 MG TAB PO SCH (08:55)
[2025-02-03] MEDS: lisinopriL 20 MG TAB PO SCH (08:55)
[2025-02-03] MEDS: PANTOPRAZOLE 40 MG TABLET PO SCH (08:55)
[2025-02-03] MEDS ORDERED: amLODIPine 10 MG TAB PO SCH (09:00)
[2025-02-03] MEDS ORDERED: lisinopriL 20 MG TAB PO SCH (09:00)
[2025-02-03 09:05] LABS: Lymphocytes # (M) 0.59 k/uL (1.0-4.8); Monocytes # (M) 0.59 k/uL (0-1.0); Neutrophils % (M) 80 %; Nucleated Red Blood Cells 0 /100 WBC (0-0); Polychromasia Present; Total Cells Counted 100
[2025-02-03 09:07] LABS: Tear Drop Cells Present
[2025-02-03 11:31] LABS: Glucose,Whole Blood 161 mg/dL (70-110)
--- NOTE | 2025-02-03 11:38 | P.CRDCN ---
History of Present Illness Consult date: 02/03/25 Reason for Consult (text): A-fib with RVR History of present illness: This is a 69-year-old female patient with past medical history of hypertension, hyperlipidemia, persistent atrial fibrillation, COPD, history of breast cancer. We have been asked to evaluate the patient for A-fib with RVR. Patient gives history that she came into the hospital because her chest hurt. Patient had a hospitalization in October of this year was seen by cardiology for chest pain in which acute coronary syndrome was ruled out, treated for acute on chronic di astolic heart failure, paroxysmal atrial fibrillation with RVR. Patient has not followed up with cardiology. Patient was found to be in A-fib with RVR. She states she has been taking Eliquis as instructed. Patient has been started on Cardizem drip currently at 5 mg/h. Blood pressure 114/79, heart rate 89-102, pulse ox 99% on 2 L nasal cannula. -EKG: A-fib at 120 bpm -Chest x-ray: Patchy infiltrate with moderate left pleural effusion and minimal right pleural effusion. Correlate for pneumonia. -Laboratory studies: WBC 5.8, hemoglobin 7.1, platelet count 67. Troponin negative x 3. proBNP 3430. Magnesium 2.1. -Home cardiac medications: Amlodipine 10 mg daily, Eliquis 5 mg twice daily, atorvastatin 40 mg daily, Lasix 60 mg twice daily, lisinopril 40 mg daily. -Echocardiogram performed 10/24/2024 revealed EF of 55 to 60%, RVSP 35 mmHg, moderate mitral regurgitation, mild TR. Review Of Systems: At the time of my exam: CONSTITUTIONAL: Denies fever or chills. HEENT: Denies blurred vision, vision changes, or eye pain. Denies hemoptysis CARDIOVASCULAR: Denies chest pain. Denies orthopnea. Denies PND. Denies palpitations RESPIRATORY: Denies shortness of breath. GASTROINTESTINAL: Denies abdominal pain. Denies nausea or vomiting. HEMATOLOGIC: Denies bleeding disorders. GENITOURINARY: Denies any blood in urine. SKIN: Denies puritis. Denies rash. Physical examination: Gen: This is 69-year-old female in no acute distress VS: reviewed HEENT: Head is atraumatic, normocephalic. Pupils equal, round. Sclerae is anicteric. NECK: Supple. No JVD. LUNGS: Clear to auscultation. No wheezes or rhonchi. No intercostal retractions. HEART: Irregular rate and rhythm. No murmur. ABDOMEN: Soft No tenderness. EXTREMITIES: No pedal edema. No calf tenderness. NEUROLOGICAL: Patient is awake, alert and oriented x3. Assessment: Persistent atrial fibrillation with RVR, Acute hypoxic respiratory failure Possible pneumonia Acute on chronic diastolic heart failure COPD Hypertension Breast cancer Thrombocytopenia Anemia Plan: Resume patient's home cardiac medications with the following changes: Discontinue amlodipine Decrease lisinopril to 20 mg daily Increase metoprolol to 50 mg BID Discontinue cardizem gtt Patient has been started on IV Lasix 40 mg every 8 hours Monitor JOSE, daily weights, electrolytes and renal function No need to obtain echocardiogram as this was done 10/24/24 Further recommendations to follow based upon clinical course Thank you kindly for this consultation. Nurse practitioner note has been reviewed, I agree with documented findings and plan of care. Patient was seen and examined. Past Medical History Past Medical History: Atrial Fibrillation, Asthma, Cancer, COPD, Diabetes Mellitus, GERD/Reflux, Hyperlipidemia, Hypertension, Musculoskeletal Disorder Additional Past Medical History / Comment(s): Migraine headaches. Hx kidney stone. Chronic back pain, numbness and tingling bilateral lower extremities. Right Breast cancer History of Any Multi-Drug Resistant Organisms: None Reported, MRSA Date of last positivie culture/infection: 2011 MDRO Source:: UNK Past Surgical History: Appendectomy, Back Surgery, Breast Surgery, Cholecystectomy, Joint Replacement, Orthopedic Surgery Additional Past Surgical History / Comment(s): Fusion w/ kane also back surgery 04/21/2019. Left Shoulder Replacement, Right knee replacement, plate in right wrist, left thumb joint repair, Right CTR, Right shoulder arthroscopy. micheal cataracts, LARYNGOSCOPY, November 2016 Cervical Plate, PAIN CLINIC PROCEDURES, right masectomy Past Anesthesia/Blood Transfusion Reactions: No Reported Reaction Past Psychological History: No Psychological Hx Reported Smoking Status: Former smoker Past Alcohol Use History: None Reported Past Drug Use History: None Reported - Past Family History Brother(s) Family Medical History: Cancer, Myocardial Infarction ([place]) Father Family Medical History: Cancer Additional Family Medical History / Comment(s): Throat, colon, liver, and brain cancer. Mother Family Medical History: Myocardial Infarction ([place]) Additional Family Medical History / Comment(s): at 54 of [place]. Medications and Allergies Home Medications Medication Instructions Recorded Confirmed Type Butalb/Acetaminophen/Caffeine 1 tab PO BID PRN 04/11/14 02/02/25 History [Fioricet 50-325-40 mg Tablet] Albuterol Sulfate [Albuterol 2 puff INHALATION RT-Q6H PRN 03/09/24 02/02/25 History Sulfate Hfa] Baclofen [Lioresal] 20 mg PO HS 08/18/24 02/02/25 History Albuterol Nebulized [Ventolin 2.5 mg INHALATION RT-BID 10/24/24 02/02/25 History Nebulized] Fluticasone Propion/Salmeterol 1 puff INHALATION RT-BID 10/24/24 02/02/25 His tory [Fluticasone-Salmeterol 250-50] Morphine Sulfate ER [Ms Contin] 30 mg PO BID 10/24/24 02/02/25 History Ondansetron Odt [Zofran ODT] 4 mg PO BID PRN 10/24/24 02/02/25 History Apixaban [Eliquis] 5 mg PO BID 30 Days #60 tab 10/28/24 02/02/25 Rx Atorvastatin [Lipitor] 40 mg PO DAILY #30 tab 12/09/24 02/02/25 Rx Furosemide [Lasix] 60 mg PO BID@0900,1600 #180 tab 12/09/24 02/02/25 Rx Lactulose [Cephulac] 20 gm PO DAILY PRN #120 ml 12/09/24 02/02/25 Rx Budesonide/Formoterol Fumarate 2 puff INHALATION RT-BID 02/02/25 02/02/25 History [Symbicort 160-4.5 Mcg Inhaler] Insulin Glargine,Hum.rec.anlog 40 units SQ HS 02/02/25 02/02/25 History [Lantus Solostar Pen] Insulin Lispro [humaLOG Kwikpen] See Protocol SQ TID-W/MEALS 02/02/25 02/02/25 History Morphine Sulfate Ir [MSIR] 15 - 30 mg PO Q4-6H PRN 02/02/25 02/02/25 History Palbociclib [Ibrance] 100 mg PO DAILY 02/02/25 02/02/25 History Pantoprazole [Protonix] 40 mg PO DAILY 02/02/25 02/02/25 History amLODIPine [Norvasc] 10 mg PO DAILY 02/02/25 02/02/25 History lisinopriL 40 mg PO DAILY 02/02/25 02/02/25 History Allergies Allergy/AdvReac Type Severity Reaction Status Date / Time gabapentin AdvReac Confusion Verified 02/02/25 17:00 ibuprofen [From Motrin] AdvReac Abdominal Verified 02/02/25 17:00 Pain and vomiting pregabalin [From Lyrica] AdvReac Confusion Verified 02/02/25 17:00 Physical Exam Vitals: Vital Signs Temp Pulse Pulse Resp BP BP Pulse Ox 02/03/25 04:00 97.8 F 102 H 19 123/75 98 02/03/25 00:00 98.1 F 101 H 19 124/78 100 02/02/25 21:32 101 H 20 02/02/25 21:23 106 H 22 02/02/25 20:00 98.2 F 129 H 19 138/85 100 02/02/25 18:49 103 H 02/02/25 18:22 97.9 F 103 H 20 130/85 100 02/02/25 17:57 98.2 F 116 H 22 136/77 98 02/02/25 17:42 105 H 22 128/98 97 02/02/25 16:47 80 22 124/77 98 02/02/25 16:38 110 H 20 153/97 98 02/02/25 15:28 97.6 F 02/02/25 15:19 116 H 20 147/99 99 Intake and Output 02/02/25 02/03/25 02/03/25 22:59 06:59 14:59 Intake Total 1800 Output Total 750 200 Balance -750 1600 Intake: Oral 1800 Output: Urine 750 200 Other: Voiding Method External Catheter External Catheter Weight 90.718 kg 76 kg Results 02/03/25 06:24 02/03/25 06:24 Cardiac Enzymes 02/02/25 02/02/25 02/02/25 Range/Units 15:45 15:45 19:01 AST 40 H (14-36) U/L Troponin I <0.012 <0.012 (0.000-0.034) ng/mL 02/02/25 02/03/25 Range/Units 21:24 06:24 AST 31 (14-36) U/L Troponin I 0.012 (0.000-0.034) ng/mL Coagulation 02/02/25 Range/Units 15:45 PT 11.3 (10.0-12.5) sec APTT 20.9 L (22.0-30.0) sec CBC 02/02/25 02/03/25 Range/Units 15:45 06:24 WBC 4.51 5.87 (4.50-10.00) 10*3/uL RBC 3.08 L 2.58 L (4.10-5.20) 10*6/uL Hgb 8.5 L 7.1 L (12.0-15.0) g/dL Hct 27.4 L 23.5 L (37.2-46.3) % Plt Count 70 L (140-440) 10*3/uL Comprehensive Metabolic Panel 02/02/25 02/03/25 Range/Units 15:45 06:24 Sodium 136 L 136 L (137-145) mmol/L Potassium 4.5 4.4 (3.5-5.1) mmol/L Chloride 99 100 (98-107) mmol/L Carbon Dioxide 26 30 (22-30) mmol/L BUN 11 17 (7-17) mg/dL Creatinine 0.66 0.99 (0.52-1.04) mg/dL Glucose 185 H 153 H (74-99) mg/dL Calcium 8.9 8.3 L (8.4-10.2) mg/dL AST 40 H 31 (14-36) U/L ALT 15 14 (4-34) U/L Alkaline Phosphatase 640 H 475 H (38-126) U/L Total Protein 6.8 6.1 L (6.3-8.2) g/dL Albumin 3.7 3.4 L (3.5-5.0) g/dL Current Medications Generic Name Dose Route Start Last Admin Trade Name Freq PRN Reason Stop Dose Admin Acetaminophen/Butalbital/Caffeine 1 each 02/02/25 17:12 Butalb/Apap/Caff 50-325-40mg Tab PO BID PRN Migraine Headache Albuterol/Ipratropium 3 ml 02/02/25 20:00 02/02/25 21:22 Ipratropium-Albuterol 3 Ml Neb INHALATION 3 ml RT-QID JOCELYNE Administration Albuterol/Ipratropium 3 ml 02/02/25 17:13 Ipratropium-Albuterol 3 Ml Neb INHALATION RT-QID PRN Shortness Of Breath Or Wheezing Amlodipine Besylate 10 mg 02/03/25 09:00 Amlodipine 10 Mg Tab PO DAILY JOCELYNE Apixaban 5 mg 02/02/25 21:00 02/02/25 20:39 Apixaban 5 Mg Tab PO 5 mg BID JOCELYNE Administration Protocol Atorvastatin Calcium 40 mg 02/03/25 09:00 Atorvastatin 40 Mg Tab PO DAILY JOCELYNE Baclofen 20 mg 02/02/25 21:00 02/02/25 20:39 Baclofen 10 Mg Tab PO 20 mg HS JOCELYNE Administration Budesonide/Formoterol Fumarate 2 puff 02/02/25 20:00 02/02/25 21:22 Symbicort 160-4.5 Mcg Inhaler INHALATION 2 puff RT-BID JOCELYNE Administration Furosemide 60 mg 02/03/25 09:00 Furosemide 20 Mg Tab PO BID@0900,1600 JOCELYNE Diltiazem HCl 125 mg/ Dextrose 125 mls @ 5 mls/hr 02/02/25 15:45 02/02/25 16:47 /Water IV 5 mg/hr .Q24H JOCELYNE 5 mls/hr Administration Protocol 5 MG/HR Sodium Chloride 1,000 mls @ 75 mls/hr 02/02/25 17:00 02/02/25 16:58 Saline 0.9% IV 75 mls/hr .[id number] JOCELYNE Administration Insulin Glargine 40 unit 02/02/25 21:00 02/02/25 20:39 Insulin Glargine (Lantus) 100 Unit/Ml Syr SQ 40 unit HS JOCELYNE Administration Lactulose 20 gm 02/02/25 17:12 Lactulose 20 Gm/30 Ml Cup PO DAILY PRN Constipation Lisinopril 40 mg 02/03/25 09:00 Lisinopril 20 Mg Tab PO DAILY JOCELYNE Morphine Sulfate 4 mg 02/02/25 16:10 02/03/25 04:05 Morphine Sulfate 4 Mg/Ml Syringe IVP 4 mg Q4HR PRN Administration Pain Morphine Sulfate 30 mg 02/02/25 21:00 02/02/25 21:14 Morphine Sulfate Er 30 Mg Tablet PO 30 mg BID JOCELYNE Administration Protocol Morphine Sulfate 15 mg 02/02/25 17:12 02/02/25 18:33 Morphine Sulfate Ir 15 Mg Tablet PO 15 mg Q4H PRN Administration Breakthrough Pain Naloxone HCl 0.2 mg 02/02/25 16:46 Naloxone 0.4 Mg/Ml 1 Ml Vial IV Q2M PRN Opioid Reversal Ibrance (Palbociclib 100 mg 02/03/25 09:00 ) 100 Mg Tablet PO DAILY JOCELYNE Ondansetron HCl 4 mg 02/02/25 16:10 Ondansetron 4 Mg/2 Ml Vial IVP Q8HR PRN Nausea And Vomiting Pantoprazole Sodium 40 mg 02/03/25 09:00 Pantoprazole 40 Mg Tablet PO DAILY [facility] Intake and Output 02/02/25 02/03/25 02/03/25 22:59 06:59 14:59 Intake Total 1800 Output Total 750 200 Balance -750 1600 Intake: Oral 1800 Output: Urine 750 200 Other: Voiding Method External Catheter External Catheter Weight 90.718 kg 76 kg 02/03/25 06:24 02/03/25 06:24
[2025-02-03] MEDS: FUROSEMIDE 10 MG/ML 4 ML VIAL IV SCH (14:04)
[2025-02-03] MEDS ORDERED: DEXTROSE 50% SYRINGE 50 ML IVP PRN ×2 (14:47)
[2025-02-03 16:32] LABS: Glucose,Whole Blood 151 mg/dL (70-110)
[2025-02-03] MEDS: INSULIN LISPRO (HumaLOG) 100 UNIT/ML 10 mL VL SQ SCH (16:44)
[2025-02-03] MEDS: methylPREDNISolone SOD SUCCI 125 MG/2 ML VIAL IV SCH (17:08)
[2025-02-03] MEDS: MORPHINE SULFATE ER 30 MG TABLET PO SCH (18:10)
[2025-02-03 19:58] LABS: Glucose,Whole Blood 184 mg/dL (70-110)
[2025-02-03] MEDS: DOCUSATE 100 MG CAP PO SCH (20:24)
--- NOTE | 2025-02-03 21:52 | P.CONS ---
History of Present Illness - Reason for Consult Consult date: 02/03/25 anemia, thrombocytopenia, breast cancer Requesting physician: Tru Montelongo - Chief Complaint chest pain, SOB - History of Present Illness Mrs. Valentino is a female pt of Dr. Yancey who had an abnormal right breast screening mammogram in Dec, 2021. At that time she had right nipple retraction, present for a few months. Additional breast imaging revealed 2.0 x 2.4 x 2.0 cm mass at 3:00 in the right breast and an abnormal right axilla node. 01/02/2022 core biopsies of the right breast mass and right axilla were positive for G2, IDC, ER/TX+ (91%,71%), HER2/CHRIS negative by FISH (2+ by IHC). 02/06/2022 she had right mastectomy and sentinel nodes biopsy, final pathology revealed grade 2, IDC, 3 cm, 1/1 node was positive for micromets. She had a OncotypeDx RS 21, unclear significance of adjuvant chemo benefit. She did complete radiation. She was recommended to start anastrozole, which she did initially. She ran out of Rx, did not refill in Jun 2022, was last seen in [facility] 12/2022 and stated she was going to resume. She was not seen in the office since then, and did not remember last time she took anastrazole but it has been a long time. Patient was then seen on consult in 2024 for concern of progression of breast cancer. CT chest/abdomen/pelvis in 08/2024,she also had a bone scan in July/2024 which diffuse osseous mets,with soft tissue lesion at T9,borderline mediastinal nodes and couple small lung nodule up to 1 cm. She reestablished care in clinic with Dr. Yancey on 10/05/24. It was discussed with patient the clinical and radiographic picture are highly suspicious for recurrent metastatic breast cancer. She was recommended referral to ortho/oncologist but she declined. I also recommended a biopsy of T9, which she was agreeable to. She had canceled scheduled biopsies due to hospitalization and then not feeling well, but did end up having a bone biopsy on 11/19/24 at [facility], biopsy was positive for metastatic breast cancer,ER/TX+(92%,2%),HER2/CHRIS low (1+). Liquid biopsy showed ESR1 mutaion,pIK3CA mutation,TP53,CHEK-2,NRAS mutations. Brain MRI showed brain metastasis. She was previously started on dexamethasone, and was supposed to meet rad/onc in [facility] on 01/05/2025 for RT to right knee, right shoulder and brain,however,she ended up in hospital for a week because of chest pain. Also she has not started faslodex or zometa yet and did not make it to see ortho oncologist Dr Lata Castrejon. It was confirmed with [facility],they have the orders ,patient did not show up for apt, and she was instructed at her last f/u on 01/26/25, to call and reschedule to start her faslodex and zometa. She states at todays visit she still has not called to reschedule treatment. She had an apt with rad/onc scheduled on 02/02/2025, but was missed due to current hospitalization. Plan was to start ibrance once radiation was completed. Patient has been having ongoing anemia and thrombocytopenia. Previous workup for pancytopenia was felt to be likely secondary to diffuse bone mets. Iron studies were consistent with anemia of inflammation. Patient presented to the emergency room in [place] for chest pain and shortness of breath. She was transferred to [facility] for cardiology evaluation due to noted A-fib with RVR and CHF exacerbation. On admit chest x-ray showed patchy infiltrate with moderate left pleural effusion and minimal right pleural effusion. Patient underwent CTA chest at transferring facility which was reported to be negative for PE. Patient is anticoagulated with Eliquis for history of A-fib. On admit hemoglobin noted at 8.5, MCV 89.0. Platelets 70,000. Today hemoglobin dropped to 7.1. Platelets 67,000. Consult placed for anemia and thrombocytopenia. Creatinine 0.99, GFR 59. ALP elevated at 640. Troponins negative. BNP elevated at 3430. Patient has been started on IV Lasix. Cardiology and pulmonology following. At today's visit patient is reporting persisting right knee and right upper chest wall/right shoulder pain. She is quite lethargic. Review of Systems 10 point ROS is negative except as stated in the HPI Past Medical History Past Medical History: Atrial Fibrillation, Asthma, Cancer, COPD, Diabetes Mellitus, GERD/Reflux, Hyperlipidemia, Hypertension, Musculoskeletal Disorder Additional Past Medical History / Comment(s): Migraine headaches. Hx kidney stone. Chronic back pain, numbness and tingling bilateral lower extremities. Right Breast cancer History of Any Multi-Drug Resistant Organisms: None Reported, MRSA Year Discovered:: 2011 MDRO Source:: UNK Past Surgical History: Appendectomy, Back Surgery, Breast Surgery, Cholecystectomy, Joint Replacement, Orthopedic Surgery Additional Past Surgical History / Comment(s): Fusion w/ kane also back surgery 04/21/2019. Left Shoulder Replacement, Right knee replacement, plate in right wrist, left thumb joint repair, Right CTR, Right shoulder arthroscopy. micheal cataracts, LARYNGOSCOPY, November 2016 Cervical Plate, PAIN CLINIC PROCEDURES, right masectomy Past Anesthesia/Blood Transfusion Reactions: No Reported Reaction Past Psychological History: No Psychological Hx Reported Smoking Status: Former smoker Past Alcohol Use History: None Reported Past Drug Use History: None Reported - Past Family History Brother(s) Family Medical History: Cancer, Myocardial Infarction ([place]) Father Family Medical History: Cancer Additional Family Medical History / Comment(s): Throat, colon, liver, and brain cancer. Mother Family Medical History: Myocardial Infarction ([place]) Additional Family Medical History / Comment(s): at 54 of [place]. Medications and Allergies Home Medications Medication Instructions Recorded Confirmed Type Butalb/Acetaminophen/Caffeine 1 tab PO BID PRN 04/11/14 02/02/25 History [Fioricet 50-325-40 mg Tablet] Albuterol Sulfate [Albuterol 2 puff INHALATION RT-Q6H PRN 03/09/24 02/02/25 History Sulfate Hfa] Baclofen [Lioresal] 20 mg PO HS 08/18/24 02/02/25 History Albuterol Nebulized [Ventolin 2.5 mg INHALATION RT-BID 10/24/24 02/02/25 History Nebulized] Fluticasone Propion/Salmeterol 1 puff INHALATION RT-BID 10/24/24 02/02/25 Histo ry [Fluticasone-Salmeterol 250-50] Morphine Sulfate ER [Ms Contin] 30 mg PO BID 10/24/24 02/02/25 History Ondansetron Odt [Zofran ODT] 4 mg PO BID PRN 10/24/24 02/02/25 History Apixaban [Eliquis] 5 mg PO BID 30 Days #60 tab 10/28/24 02/02/25 Rx Atorvastatin [Lipitor] 40 mg PO DAILY #30 tab 12/09/24 02/02/25 Rx Furosemide [Lasix] 60 mg PO BID@0900,1600 #180 tab 12/09/24 02/02/25 Rx Lactulose [Cephulac] 20 gm PO DAILY PRN #120 ml 12/09/24 02/02/25 Rx Budesonide/Formoterol Fumarate 2 puff INHALATION RT-BID 02/02/25 02/02/25 History [Symbicort 160-4.5 Mcg Inhaler] Insulin Glargine,Hum.rec.anlog 40 units SQ HS 02/02/25 02/02/25 History [Lantus Solostar Pen] Insulin Lispro [humaLOG Kwikpen] See Protocol SQ TID-W/MEALS 02/02/25 02/02/25 History Morphine Sulfate Ir [MSIR] 15 - 30 mg PO Q4-6H PRN 02/02/25 02/02/25 History Palbociclib [Ibrance] 100 mg PO DAILY 02/02/25 02/02/25 History Pantoprazole [Protonix] 40 mg PO DAILY 02/02/25 02/02/25 History amLODIPine [Norvasc] 10 mg PO DAILY 02/02/25 02/02/25 History lisinopriL 40 mg PO DAILY 02/02/25 02/02/25 History Allergies Allergy/AdvReac Type Severity Reaction Status Date / Time gabapentin AdvReac Confusion Verified 02/02/25 17:00 ibuprofen [From Motrin] AdvReac Abdominal Verified 02/02/25 17:00 Pain and vomiting pregabalin [From Lyrica] AdvReac Confusion Verified 02/02/25 17:00 Physical Exam Vitals: Vital Signs Temp Pulse Pulse Resp BP BP Pulse Ox 02/03/25 10:55 97.8 F 90 18 115/77 98 02/03/25 10:10 90 94/66 02/03/25 09:07 84 02/03/25 08:52 85 99 02/03/25 08:00 89 18 114/79 99 02/03/25 04:00 97.8 F 102 H 19 123/75 98 02/03/25 00:00 98.1 F 101 H 19 124/78 100 02/02/25 21:32 101 H 20 02/02/25 21:23 106 H 22 02/02/25 20:00 98.2 F 129 H 19 138/85 100 02/02/25 18:49 103 H 02/02/25 18:22 97.9 F 103 H 20 130/85 100 02/02/25 17:57 98.2 F 116 H 22 136/77 98 02/02/25 17:42 105 H 22 128/98 97 02/02/25 16:47 80 22 124/77 98 Intake and Output 02/03/25 02/03/25 02/03/25 06:59 14:59 22:59 Intake Total 1800 240 Output Total 200 100 Balance 1600 140 Intake: Oral 1800 240 Output: Urine 200 100 Other: Voiding Method External Catheter External Catheter Weight 76 kg - Constitutional General appearance: no acute distress, obese - EENT Eyes: anicteric sclerae, EOMI ENT: hearing grossly normal - Respiratory breathing is even and unlabored - Cardiovascular skin warm and dry - Integumentary Integumentary: no cyanotic, pale - Neurologic lethargic - Musculoskeletal Musculoskeletal: generalized weakness Results CBC & Chem 7: 02/03/25 06:24 02/03/25 06:24 Labs: Abnormal Lab Results - Last 24 Hours (Table) 02/02/25 02/02/25 02/02/25 Range/Units 15:45 15:45 15:45 RBC (4.10-5.20) 10*6/uL Hgb (12.0-15.0) g/dL Hct (37.2-46.3) % MCHC (32.0-37.0) g/dL Plt Count 70 L (140-440) 10*3/uL Immature Gran # (0.00-0.04) 10*3/uL Lymphocytes # (Manual) 0.86 L (1.0-4.8) k/uL Nucleated RBCs 6 H (0-0) /100 WBC APTT 20.9 L (22.0-30.0) sec Sodium 136 L (137-145) mmol/L Glucose 185 H (74-99) mg/dL POC Glucose (mg/dL) (70-110) mg/dL Calcium (8.4-10.2) mg/dL Total Bilirubin 1.9 H (0.2-1.3) mg/dL AST 40 H (14-36) U/L Alkaline Phosphatase 640 H (38-126) U/L Total Protein (6.3-8.2) g/dL Albumin (3.5-5.0) g/dL Crossmatch 02/02/25 02/03/25 02/03/25 Range/Units 20:05 06:01 06:24 RBC (4.10-5.20) 10*6/uL Hgb (12.0-15.0) g/dL Hct (37.2-46.3) % MCHC (32.0-37.0) g/dL Plt Count (140-440) 10*3/uL Immature Gran # (0.00-0.04) 10*3/uL Lymphocytes # (Manual) (1.0-4.8) k/uL Nucleated RBCs (0-0) /100 WBC APTT (22.0-30.0) sec Sodium 136 L (137-145) mmol/L Glucose 153 H (74-99) mg/dL POC Glucose (mg/dL) 291 H 184 H (70-110) mg/dL Calcium 8.3 L (8.4-10.2) mg/dL Total Bilirubin (0.2-1.3) mg/dL AST (14-36) U/L Alkaline Phosphatase 475 H (38-126) U/L Total Protein 6.1 L (6.3-8.2) g/dL Albumin 3.4 L (3.5-5.0) g/dL Crossmatch 02/03/25 02/03/25 02/03/25 Range/Units 06:24 11:30 14:34 RBC 2.58 L (4.10-5.20) 10*6/uL Hgb 7.1 L (12.0-15.0) g/dL Hct 23.5 L (37.2-46.3) % MCHC 30.2 L (32.0-37.0) g/dL Plt Count 67 L (140-440) 10*3/uL Immature Gran # 0.38 H (0.00-0.04) 10*3/uL Lymphocytes # (Manual) 0.59 L (1.0-4.8) k/uL Nucleated RBCs (0-0) /100 WBC APTT (22.0-30.0) sec Sodium (137-145) mmol/L Glucose (74-99) mg/dL POC Glucose (mg/dL) 161 H (70-110) mg/dL Calcium (8.4-10.2) mg/dL Total Bilirubin (0.2-1.3) mg/dL AST (14-36) U/L Alkaline Phosphatase (38-126) U/L Total Protein (6.3-8.2) g/dL Albumin (3.5-5.0) g/dL Crossmatch See Detail 02/03/25 Range/Units 16:30 RBC (4.10-5.20) 10*6/uL Hgb (12.0-15.0) g/dL Hct (37.2-46.3) % MCHC (32.0-37.0) g/dL Plt Count (140-440) 10*3/uL Immature Gran # (0.00-0.04) 10*3/uL Lymphocytes # (Manual) (1.0-4.8) k/uL Nucleated RBCs (0-0) /100 WBC APTT (22.0-30.0) sec Sodium (137-145) mmol/L Glucose (74-99) mg/dL POC Glucose (mg/dL) 151 H (70-110) mg/dL Calcium (8.4-10.2) mg/dL Total Bilirubin (0.2-1.3) mg/dL AST (14-36) U/L Alkaline Phosphatase (38-126) U/L Total Protein (6.3-8.2) g/dL Albumin (3.5-5.0) g/dL Crossmatch Chest x-ray: report reviewed Assessment and Plan (1) Anemia Current Visit: Yes Status: Acute Priority: Medium Code(s): D64.9 - ANEMIA, UNSPECIFIED SNOMED Code(s): 432625151 (2) Thrombocytopenia Current Visit: Yes Status: Acute Priority: Medium Code(s): D69.6 - THROMBOCYTOPENIA, UNSPECIFIED SNOMED Code(s): 717199219 (3) Acute exacerbation of chronic obstructive pulmonary disease (COPD) Current Visit: Yes Status: Acute Priority: High Code(s): J44.1 - CHRONIC OBSTRUCTIVE PULMONARY DISEASE W (ACUTE) EXACERBATION SNOMED Code(s): 276806193 (4) Atrial fibrillation with rapid ventricular response Current Visit: Yes Status: Acute Priority: High Code(s): I48.91 - UNSPECIFIED ATRIAL FIBRILLATION SNOMED Code(s): 149310340516876 (5) Atypical chest pain Current Visit: Yes Status: Acute Priority: High Code(s): R07.89 - OTHER CHEST PAIN SNOMED Code(s): 890947905 (6) CHF (congestive heart failure) Current Visit: Yes Status: Acute Priority: High Code(s): I50.9 - HEART FAILURE, UNSPECIFIED SNOMED Code(s): 64035190 (7) Breast cancer Current Visit: No Status: Acute Priority: High Code(s): C50.919 - MALIGNA NT NEOPLASM OF UNSP SITE OF UNSPECIFIED FEMALE BREAST SNOMED Code(s): 254 695855 Plan: A-fib with RVR, CHF exacerbation -Anticoagulated with Eliquis -Continues lasix -Cardiology and pulmonology following Anemia, thrombocytopenia: -Pancytopenia noted during admission in 08/2024. Pancytopenia workup at that time showed no MGUS, iron studies were most consistent with inflammation. -Cytopenias felt likely to be related to bone metastasis. Also possible component of cirrhosis noted on CT AP -On admit, hgb 8.5, MCV 89.0, plt 70,000. Today hgb 7.1, plt 67,000 -No reported episodes of acute bleeding -1 unit PRBCs ordered -Will repeat nutritional studies. Recheck CBC in AM -As long as there is no acute bleeding episodes, hgb shows appropriate response to transfusion, and plt are > 50,000, pt can continue on anticoagulation -Continue to closely monitor CBC Metastatic breast cancer: -Oncology history as dictated in the HPI -August 18, 2024, CT of the right knee reporting unusual pattern she is sclerosis and lucency about both distal femoral and proximal tibial components, similar to 03/10/2024 imaging. Areas of periprosthetic osseous scalloping/erosion both anteriorly and posteriorly at the femoral component is similar to prior study as well, etiology unclear. Sequela of chronic infection versus underlying osseous metastatic disease. There was an interval development of a nondisplaced periprosthetic fracture along the anterior aspect of the tibia. Nuclear medicine bone scan 08/21/2024 did show diffuse uptake within the appendicular skeleton corresponding to CT findings. -CT AP reported diffuse osseous metastatic disease. No greater than 1 cm lymph nodes noted to suggest intra-abdominal metastatic disease. Subacute fracture of the left 11th rib. Nodular contour to liver, possible cirrhosis. -MRI brain showed brain mets. Previously treated with decadron -Bone biopsy on 11/19/24 at [facility], biopsy was positive for metastatic breast cancer,ER/TX+(92%,2%),HER2/CHRIS low (1+). -Unfortunately, outpt care has been delayed due to multiple cancellations and hospitalizations. She has not yet started treatment, and has not followed up with rad onc or ortho oncology -Will consult rad onc for evaluation for inpt palliative RT Pain, related to malignancy: -Knee and shoulder pain-2/2 mets -Pain medications adjusted -Bowel regimen in place Doctor attests: I performed a history and physical examination of this patient, developed impression and plan of care. Discussed with dictator. I agree with dictators note, documented as a scribe.
--- NOTE | 2025-02-03 22:24 | PN ---
PROGRESS NOTE DATE OF SERVICE: 02/03/2025 SUBJECTIVE: This 69-year-old woman, who was admitted with shortness of breath and possibly CHF acute exacerbation, also had some chest pain also. Cardiology and Pulmonology following the patient closely. Chest x-ray showed significant bilateral pulmonary edema as well as left pleural effusion. The hemoglobin has gone down to 7.1. PAST MEDICAL HISTORY: Reviewed. REVIEW OF SYSTEMS: A 14-point review of systems negative except as mentioned earlier. CURRENT MEDICATIONS: Reviewed. PHYSICAL EXAMINATION: VITAL SIGNS: Pulse is 90, blood pressure 115/77, respirations 18. CHEST: Few scattered rhonchi and crackles. ABDOMEN: Soft. NERVOUS SYSTEM: Nonfocal. ASSESSMENT: 1. Shortness of breath, possible congestive heart failure acute exacerbation with acute on chronic diastolic dysfunction, ejection fraction 50% to 60%. 2. Atrial fibrillation with fast ventricular rate. 3. Chest pain possibly musculoskeletal, rule out coronary artery disease. 4. Anemia of possibly gastrointestinal bleed, rather chronic from 2013. 5. History of asthma and chronic obstructive pulmonary disease. 6. Hypertension. 7. Hyperlipidemia. 8. History of migraine headaches. 9. Multiple complex medical issues. 10.History degenerative joint disease. 11.History of metastatic breast cancer with right mastectomy maintained on Arimidex. RECOMMENDATIONS AND DISCUSSION: Recommend to continue current management and continue symptomatic treatment. Otherwise, I would recommend a course of IV diuretics, limit the fluid intake to 1200 mL per 24 hours. Monitor blood sugars closely. Symptomatic treatment of the pain. Follow closely with multiple consultants. I would also recommend Hematology/Oncology evaluation because of the decrease in hemoglobin and I would also recommend 1 unit transfusion with Lasix because of symptomatic anemia. Prognosis guarded. Further recommendations to follow. MMODL / IJN: [id number] /
[2025-02-04 03:23] LABS: % Iron Saturation 68.91 (12.00-45.00)
[2025-02-04 06:03] LABS: Glucose,Whole Blood 272 mg/dL (70-110)
--- NOTE | 2025-02-04 07:37 | XR ---
EXAMINATION TYPE: XR chest 1V portable DATE OF EXAM: 02/04/2025 6:44 AM COMPARISON: 02/02/2025 CLINICAL INDICATION: Female, 69 years old with history of chf, TECHNIQUE: XR chest 1V portable view(s) obtained. FINDINGS: The heart size is normal. The pulmonary vasculature is prominent. Right upper lower lobe infiltrates are present. Small left pleural effusion is present. Minimal right pleural effusion is present. IMPRESSION: 1. Bilateral lung infiltrates with small bilateral pleural effusions. Continued follow-up. [facility], , 02/04/2025 7:35 AM
[2025-02-04 07:41] LABS: HGB 8.1 g/dL (12.0-15.0); MCH 27.3 pg (27.0-32.0); MCV 90.9 fL (80.0-97.0); Mean Platelet Volume 10.8 fL (9.5-12.2); Platelet Count 66 10*3/uL (140-440); RBC 2.97 10*6/uL (4.10-5.20); RDW 18.6 % (11.5-14.5); WBC 4.79 10*3/uL (4.50-10.00)
[2025-02-04 07:50] LABS: ALT 15 U/L (4-34); AST 31 U/L (14-36); African American GFR (CKD) 61 (>60 ml/min/1.73 sqM); Albumin 3.5 g/dL (3.5-5.0); Alkaline Phosphatase 447 U/L (38-126); Anion Gap 7 mmol/L; Blood Urea Nitrogen 26 mg/dL (7-17); Calcium 7.8 mg/dL (8.4-10.2); Carbon Dioxide 30 mmol/L (22-30); Chloride 96 mmol/L (98-107); Glucose 238 mg/dL (74-99); Non-African American GFR(CKD) 53 (>60 ml/min/1.73 sqM); Potassium 4.4 mmol/L (3.5-5.1); Sodium 133 mmol/L (137-145); Total Bilirubin 1.2 mg/dL (0.2-1.3); Total Protein 6.3 g/dL (6.3-8.2)
[2025-02-04 09:15] LABS: Band Neutrophils % 1 %; Lymphocytes # (M) 0.67 k/uL (1.0-4.8); Metamyelocytes # (M) 0.05 k/uL (0); Metamyelocytes % 1 %; Neutrophils # (M) 3.97 k/uL (1.3-7.7); Neutrophils % (M) 82 %; Nucleated Red Blood Cells 1 /100 WBC (0-0); Total Cells Counted 200
[2025-02-04 09:17] LABS: Polychromasia Present
[2025-02-04 09:19] LABS: Tear Drop Cells Present
--- NOTE | 2025-02-04 10:33 | P.CONS ---
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 The patient received palliative external beam radiation therapy to the right shoulder and the right hip in December 04, 2024. Today Steffanie is complaining of pain in the chest she prescribed the pain as constant and has been there for long time, she denies pain in upper and lower extremities. Past Medical History Past Medical History: Atrial Fibrillation, Asthma, Cancer, COPD, Diabetes Mellitus, GERD/Reflux, Hyperlipidemia, Hypertension, Musculoskeletal Disorder Additional Past Medical History / Comment(s): Migraine headaches. Hx kidney stone. Chronic back pain, numbness and tingling bilateral lower extremities. Right Breast cancer History of Any Multi-Drug Resistant Organisms: None Reported, MRSA Year Discovered:: 2011 MDRO Source:: UNK Past Surgical History: Appendectomy, Back Surgery, Breast Surgery, Cholecystectomy, Joint Replacement, Orthopedic Surgery Additional Past Surgical History / Comment(s): Fusion w/ kane also back surgery 04/21/2019. Left Shoulder Replacement, Right knee replacement, plate in right wrist, left thumb joint repair, Right CTR, Right shoulder arthroscopy. micheal cataracts, LARYNGOSCOPY, November 2016 Cervical Plate, PAIN CLINIC PROCEDURES, right masectomy Past Anesthesia/Blood Transfusion Reactions: No Reported Reaction Past Psychological History: No Psychological Hx Reported Smoking Status: Former smoker Past Alcohol Use History: None Reported Past Drug Use History: None Reported - Past Family History Brother(s) Family Medical History: Cancer, Myocardial Infarction ([place]) Father Family Medical History: Cancer Additional Family Medical History / Comment(s): Throat, colon, liver, and brain cancer. Mother Family Medical History: Myocardial Infarction ([place]) Additional Family Medical History / Comment(s): at 54 of [place]. Medications and Allergies Home Medications Medication Instructions Recorded Confirmed Type Butalb/Acetaminophen/Caffeine 1 tab PO BID PRN 04/11/14 02/02/25 History [Fioricet 50-325-40 mg Tablet] Albuterol Sulfate [Albuterol 2 puff INHALATION RT-Q6H PRN 03/09/24 02/02/25 History Sulfate Hfa] Baclofen [Lioresal] 20 mg PO HS 08/18/24 02/02/25 History Albuterol Nebulized [Ventolin 2.5 mg INHALATION RT-BID 10/24/24 02/02/25 History Nebulized] Fluticasone Propion/Salmeterol 1 puff INHALATION RT-BID 10/24/24 02/02/25 History [Fluticasone-Salmeterol 250-50] Morphine Sulfate ER [Ms Contin] 30 mg PO BID 10/24/24 02/02/25 History Ondansetron Odt [Zofran ODT] 4 mg PO BID PRN 10/24/24 02/02/25 History Apixaban [Eliquis] 5 mg PO BID 30 Days #60 tab 10/28/24 02/02/25 Rx Atorvastatin [Lipitor] 40 mg PO DAILY #30 tab 12/09/24 02/02/25 Rx Furosemide [Lasix] 60 mg PO BID@0900,1600 #180 tab 12/09/24 02/02/25 Rx Lactulose [Cephulac] 20 gm PO DAILY PRN #120 ml 12/09/24 02/02/25 Rx Budesonide/Formoterol Fumarate 2 puff INHALATION RT-BID 02/02/25 02/02/25 History [Symbicort 160-4.5 Mcg Inhaler] Insulin Glargine,Hum.rec.anlog 40 units SQ HS 02/02/25 02/02/25 History [Lantus Solostar Pen] Insulin Lispro [humaLOG Kwikpen] See Protocol SQ TID-W/MEALS 02/02/25 02/02/25 History Morphine Sulfate Ir [MSIR] 15 - 30 mg PO Q4-6H PRN 02/02/25 02/02/25 History Palbociclib [Ibrance] 100 mg PO DAILY 02/02/25 02/02/25 History Pantoprazole [Protonix] 40 mg PO DAILY 02/02/25 02/02/25 History amLODIPine [Norvasc] 10 mg PO DAILY 02/02/25 02/02/25 History lisinopriL 40 mg PO DAILY 02/02/25 02/02/25 History Allergies Allergy/AdvReac Type Severity Reaction Status Date / Time gabapentin AdvReac Confusion Verified 02/02/25 17:00 ibuprofen [From Motrin] AdvReac Abdominal Verified 02/02/25 17:00 Pain and vomiting pregabalin [From Lyrica] AdvReac Confusion Verified 02/02/25 17:00 Physical Exam Vitals: Vital Signs Temp Pulse Pulse Resp BP BP Pulse Ox 02/04/25 08:41 96 02/04/25 08:38 94 02/04/25 08:32 99 02/04/25 08:31 98.0 F 99 19 141/73 96 02/04/25 08:19 90 02/04/25 03:39 81 19 150/87 96 02/04/25 00:00 97.3 F L 109 H 19 152/94 99 02/03/25 22:01 85 02/03/25 21:49 91 02/03/25 20:57 98.0 F 109 H 19 157/101 96 02/03/25 17:34 98.1 F 89 18 140/88 02/03/25 17:14 98.0 F 93 18 144/96 96 02/03/25 16:46 95 02/03/25 16:00 98.0 F 93 18 144/96 94 L 02/03/25 10:55 97.8 F 90 18 115/77 98 Intake and Output 02/03/25 02/04/25 02/04/25 22:59 06:59 14:59 Intake Total 310 0 Output Total 125 1550 600 Balance 185 -1550 -600 Intake: Oral 0 0 Blood Product 310 Rc Irr As1 Unit 310 [id number] Output: Urine 125 1550 600 Other: Voiding Method External Catheter External Catheter External Catheter Weight 79.5 kg Results CBC & Chem 7: 02/04/25 06:55 02/04/25 06:55 Labs: Abnormal Lab Results - Last 24 Hours (Table) 02/03/25 02/03/25 02/03/25 Range/Units 06:24 11:30 14:34 RBC (4.10-5.20) 10*6/uL Hgb (12.0-15.0) g/dL Hct (37.2-46.3) % MCHC (32.0-37.0) g/dL Plt Count (140-440) 10*3/uL Immature Gran # (0.00-0.04) 10*3/uL Lymphocytes # (Manual) (1.0-4.8) k/uL Metamyelocytes # (Man) (0) k/uL Nucleated RBCs (0-0) /100 WBC Sodium (137-145) mmol/L Chloride (98-107) mmol/L BUN (7-17) mg/dL Creatinine (0.52-1.04) mg/dL Glucose (74-99) mg/dL POC Glucose (mg/dL) 161 H (70-110) mg/dL Calcium (8.4-10.2) mg/dL Iron 215 H (50-170) UG/DL % Saturation 68.91 H (12.00-45.00) Ferritin 781.0 H (10.0-291.0) ng/mL Alkaline Phosphatase (38-126) U/L Crossmatch See Detail 02/03/25 02/03/25 02/04/25 Range/Units 16:30 19:57 05:58 RBC (4.10-5.20) 10*6/uL Hgb (12.0-15.0) g/dL Hct (37.2-46.3) % MCHC (32.0-37.0) g/dL Plt Count (140-440) 10*3/uL Immature Gran # (0.00-0.04) 10*3/uL Lymphocytes # (Manual) (1.0-4.8) k/uL Metamyelocytes # (Man) (0) k/uL Nucleated RBCs (0-0) /100 WBC Sodium (137-145) mmol/L Chloride (98-107) mmol/L BUN (7-17) mg/dL Creatinine (0.52-1.04) mg/dL Glucose (74-99) mg/dL POC Glucose (mg/dL) 151 H 184 H 272 H (70-110) mg/dL Calcium (8.4-10.2) mg/dL Iron (50-170) UG/DL % Saturation (12.00-45.00) Ferritin (10.0-291.0) ng/mL Alkaline Phosphatase (38-126) U/L Crossmatch 02/04/25 02/04/25 Range/Units 06:55 06:55 RBC 2.97 L (4.10-5.20) 10*6/uL Hgb 8.1 L (12.0-15.0) g/dL Hct 27.0 L (37.2-46.3) % MCHC 30.0 L (32.0-37.0) g/dL Plt Count 66 L (140-440) 10*3/uL Immature Gran # 0.29 H (0.00-0.04) 10*3/uL Lymphocytes # (Manual) 0.67 L (1.0-4.8) k/uL Metamyelocytes # (Man) 0.05 H (0) k/uL Nucleated RBCs 1 H (0-0) /100 WBC Sodium 133 L (137-145) mmol/L Chloride 96 L (98-107) mmol/L BUN 26 H (7-17) mg/dL Creatinine 1.08 H (0.52-1.04) mg/dL Glucose 238 H (74-99) mg/dL POC Glucose (mg/dL) (70-110) mg/dL Calcium 7.8 L (8.4-10.2) mg/dL Iron (50-170) UG/DL % Saturation (12.00-45.00) Ferritin (10.0-291.0) ng/mL Alkaline Phosphatase 447 H (38-126) U/L Crossmatch Assessment and Plan Assessment: Stage IV breast cancer with brain and bone metastasis status post palliative external beam radiation therapy to the right shoulder and right leg in November 2024. Presented with chest pain probably related to limitation of her physical positions , a previous modified radical mastectomy , and a stage IV breast cancer. Plan: After examining the patient and review her previous palliative radiotherapy, at this time the patient denies any specific area that is causing her pain except for chest pain which it is a chronic pain that the patient complains for a long time and might not related to her cancer. Therefore no radiotherapy will be offered at this time , the patient will be managed by oncology for her stage IV cancer. We recommend to continue her current management .
[2025-02-04 11:42] LABS: Glucose,Whole Blood 320 mg/dL (70-110)
--- NOTE | 2025-02-04 12:36 | PN ---
PROGRESS NOTE DATE OF SERVICE: 02/04/2025 SUBJECTIVE: This is a 69-year-old woman who was admitted with shortness of breath and CHF acute exacerbation, also had atrial fibrillation, fast ventricular rate. Also, the patient has some chest pain, which is improving. Multiple consultants are following the patient closely. The most recent chest x-ray, which I reviewed today showed some CHF and some persistent left pleural effusion also. The patient also receiving palliative radiation for metastatic breast cancer stage IV with brain and bone mets. PAST MEDICAL HISTORY: Reviewed. REVIEW OF SYSTEMS: Could not be taken, because the patient is mildly confused today. CURRENT MEDICATIONS: Reviewed. PHYSICAL EXAMINATION: VITAL SIGNS: Pulse is 92, blood pressure 140/80, and respirations 19. HEENT: Conjunctivae normal. NECK: No jugular venous distention. CARDIOVASCULAR: S1, S2. RESPIRATION: Breath sounds diminished at the bases. A few scattered rhonchi. ABDOMEN: Soft. LEGS: Minimal edema. LABORATORY DATA: Reviewed. ASSESSMENT: 1. Shortness of breath, possible congestive heart failure acute exacerbation with [id number] diastolic dysfunction, ejection fraction 50% to 60%. 2. Left pleural effusion. 3. Atrial fibrillation with fast ventricular rate. No chest pain, possibly muscular, rule out coronary artery disease. 4. Stage IV breast cancer with brain and bone mets. 5. Anemia possibly gastrointestinal bleed rather chronic from 2013. 6. History of asthma and chronic obstructive pulmonary disease. 7. Hypertension. 8. Hyperlipidemia. 9. History of migraine headaches. 10.History of multiple complex medical issues. 11.History of degenerative joint disease. RECOMMENDATIONS AND DISCUSSION: This is a 69-year-old woman presented with multiple complex medical issues. We will monitor the patient closely. I would recommend to continue the current medications and symptomatic treatment. Otherwise, the patient is on IV diuretics. We will continue to monitor the renal functions. Symptomatic treatment provided. Follow closely with multiple consultants. The patient is on steroids and bronchodilators also. Guarded prognosis, because of multiple complex medical issues. Further recommendations to follow. MMODL / IJN: [id number] /
[2025-02-04] MEDS ORDERED: RX INFO: IV CONTRAST WAS GIVEN 1 EACH MISC MISCELLANE PRN (12:42)
--- NOTE | 2025-02-04 13:41 | P.PN ---
Subjective Progress Note Date: 02/04/25 Reason for Consult (text): A-fib with RVR History of present illness: This is a 69-year-old female patient with past medical history of hypertension, hyperlipidemia, persistent atrial fibrillation, COPD, history of breast cancer. We have been asked to evaluate the patient for A-fib with RVR. Patient gives history that she came into the hospital because her chest hurt. Patient had a hospitalization in October of this year was seen by cardiology for chest pain in which acute coronary syndrome was ruled out, treated for acute on chronic diastolic heart failure, paroxysmal atrial fibrillation with RVR. Patient has not followed up with cardiology. Patient was found to be in A-fib with RVR. She states she has been taking Eliquis as instructed. Patient has been started on Cardizem drip currently at 5 mg/h. Blood pressure 114/79, heart rate 89-102, pulse ox 99% on 2 L nasal cannula. -EKG: A-fib at 120 bpm -Chest x-ray: Patchy infiltrate with moderate left pleural effusion and minimal right pleural effusion. Correlate for pneumonia. -Laboratory studies: WBC 5.8, hemoglobin 7.1, platelet count 67. Troponin negative x 3. proBNP 3430. Magnesium 2.1. -Home cardiac medications: Amlodipine 10 mg daily, Eliquis 5 mg twice daily, atorvastatin 40 mg daily, Lasix 60 mg twice daily, lisinopril 40 mg daily. -Echocardiogram performed 10/24/2024 revealed EF of 55 to 60%, RVSP 35 mmHg, moderate mitral regurgitation, mild TR. 02/04/2025 Patient seen and examined on the cardiac stepdown unit. Blood pressure readings are much improved after medication changes made yesterday. Patient has been maintained on IV Lasix 40 mg every 8 hours which will decrease frequency. Blood pressure 142/83, heart rate in the 90s, pulse ox 92% on room air. Lab work reveals hemoglobin 8.1, platelet count 66, sodium 133, BUN 26 creatinine 1.08. Hemoglobin A1c 6.4. We are waiting for oncology evaluation and recommendations regarding Eliquis use with thrombocytopenia. Physical examination: Gen: This is 69-year-old female in no acute distress VS: reviewed HEENT: Head is atraumatic, normocephalic. Pupils equal, round. Sclerae is anicteric. NECK: Supple. No JVD. LUNGS: Clear to auscultation. No wheezes or rhonchi. No intercostal retractions. HEART: Irregular rate and rhythm. No murmur. ABDOMEN: Soft No tenderness. EXTREMITIES: No pedal edema. No calf tenderness. NEUROLOGICAL: Patient is awake, alert and oriented x3. Assessment: Persistent atrial fibrillation with RVR, Acute hypoxic respiratory failure Possible pneumonia Acute on chronic diastolic heart failure COPD Hypertension Breast cancer Thrombocytopenia Anemia Plan: Resume patient's home cardiac medications with the following changes: Discontinue amlodipine Decrease lisinopril to 20 mg daily Increase metoprolol to 50 mg BID Decrease frequency of IV Lasix 40 mg to twice daily Monitor JOSE, daily weights, electrolytes and renal function No need to obtain echocardiogram as this was done 10/24/24 Use of Eliquis to be determined by oncology due to concurrent thrombocytopenia Further recommendations to follow based upon clinical course Nurse practitioner note has been reviewed, I agree with documented findings and plan of care. Patient was seen and examined. Objective - Vital Signs Vital signs: Vital Signs Temp 98.0 F 02/04/25 08:31 Pulse 94 02/04/25 08:38 Resp 19 02/04/25 08:31 BP 141/73 02/04/25 08:31 Pulse Ox 96 02/04/25 08:41 FiO2 Intake & Output 02/03/25 02/04/25 02/04/25 18:59 06:59 18:59 Intake Total 240 310 0 Output Total 225 1550 600 Balance 15 -1240 -600 Weight 79.5 kg Intake: Oral 240 0 Blood Product 0 310 Rc Irr As1 Unit 0 310 [id number] Output: Urine 225 1550 600 Other: Voiding Method External Catheter External Catheter - Labs CBC & Chem 7: 02/04/25 06:55 02/04/25 06:55 Labs: Abnormal Lab Results - Last 24 Hours (Table) 02/03/25 02/03/25 02/03/25 Range/Units 06:24 11:30 14:34 RBC (4.10-5.20) 10*6/uL Hgb (12.0-15.0) g/dL Hct (37.2-46.3) % MCHC (32.0-37.0) g/dL Immature Gran # (0.00-0.04) 10*3/uL Sodium (137-145) mmol/L Chloride (98-107) mmol/L BUN (7-17) mg/dL Creatinine (0.52-1.04) mg/dL Glucose (74-99) mg/dL POC Glucose (mg/dL) 161 H (70-110) mg/dL Calcium (8.4-10.2) mg/dL Iron 215 H (50-170) UG/DL % Saturation 68.91 H (12.00-45.00) Ferritin 781.0 H (10.0-291.0) ng/mL Alkaline Phosphatase (38-126) U/L Crossmatch See Detail 02/03/25 02/03/25 02/04/25 Range/Units 16:30 19:57 05:58 RBC (4.10-5.20) 10*6/uL Hgb (12.0-15.0) g/dL Hct (37.2-46.3) % MCHC (32.0-37.0) g/dL Immature Gran # (0.00-0.04) 10*3/uL Sodium (137-145) mmol/L Chloride (98-107) mmol/L BUN (7-17) mg/dL Creatinine (0.52-1.04) mg/dL Glucose (74-99) mg/dL POC Glucose (mg/dL) 151 H 184 H 272 H (70-110) mg/dL Calcium (8.4-10.2) mg/dL Iron (50-170) UG/DL % Saturation (12.00-45.00) Ferritin (10.0-291.0) ng/mL Alkaline Phosphatase (38-126) U/L Crossmatch 02/04/25 02/04/25 Range/Units 06:55 06:55 RBC 2.97 L (4.10-5.20) 10*6/uL Hgb 8.1 L (12.0-15.0) g/dL Hct 27.0 L (37.2-46.3) % MCHC 30.0 L (32.0-37.0) g/dL Immature Gran # 0.29 H (0.00-0.04) 10*3/uL Sodium 133 L (137-145) mmol/L Chloride 96 L (98-107) mmol/L BUN 26 H (7-17) mg/dL Creatinine 1.08 H (0.52-1.04) mg/dL Glucose 238 H (74-99) mg/dL POC Glucose (mg/dL) (70-110) mg/dL Calcium 7.8 L (8.4-10.2) mg/dL Iron (50-170) UG/DL % Saturation (12.00-45.00) Ferritin (10.0-291.0) ng/mL Alkaline Phosphatase 447 H (38-126) U/L Crossmatch
--- NOTE | 2025-02-04 14:32 | P.PN ---
Subjective Progress Note Date: 02/04/25 Principal diagnosis: Congestive heart failure, atrial fibrillation. Patient is a 69-year-old female with past medical history significant for asthma/COPD, hypertension, hyperlipidemia, diabetes mellitus, atrial fibrillation, breast cancer with previous right mastectomy in 2021 followed by radiation and anastrozole. More recently, concerns of diffuse osseous metastasis, reportedly biopsied at [facility]. Abdominal CT from August, demonstrating diffuse osseous metastatic disease. Subacute fracture of the left rib 11. Brain MRI done 12/02/2024 showing 2 focal regions of vasogenic edema within the right frontal lobe and right anterior temporal lobe with adjacent abnormal enhancing focal dural thickening on a background of diffuse dural enhancement. Findings concerning for dural metastasis in the setting of known osseous metastasis. She is seeing Dr. Yancey from medical oncology and Dr. Gutiérrez from radiation oncology. Currently on Ibrance. Of note , patient also recently hospitalized October, with atrial fibrillation with RVR and CHF exacerbation. Echocardiogram done during this hospitalization estimated left ventricular ejection fraction of 55 to 60% moderate mitral regurgitation, mild pulmonary hypertension, and mild TR. She does take Lasix on outpatient basis and denies missing any doses. Patient was transferred from [facility] yesterday afternoon. Apparently last night developed severe right-sided chest pain with associated shortness of breath. On arrival to the outside facility she was found to be in atrial fibrillation with RVR. She does have history of patient is maintained on Eliquis. She did have a chest CT an giogram at outside facility reportedly negative for pulmonary embolism. Did demonstrate cardiomegaly, with moderate bilateral pleural effusions suggestive of congestive heart failure and/or volume overload. Right basilar consolidation favoring compressive atelectasis. Extensive diffuse sclerotic metastatic disease with more acute appearing minimally displaced anterior right rib fracture. Subacute healing posterior lateral left-sided rib fracture. Patient has since been placed on a Cardizem infusion for rate control of her atrial fibrillation. Also started on Lasix 60 mg twice daily. Labs including a CBC with a WBC count of 4.5, hemoglobin 8.5, platelets 70,000. CMP with a sodium 136, potassium 4.5, chloride 99, serum bicarb 26, BUN 11, creatinine 0.66, glucose 185. Calcium 8.9. ALP 640. AST 40, ALT 15. Troponins less than 0.012 x 3. NT proBN 3430. Patient currently being evaluated in the cardiac floor. She is resting comfortably on 2 L/min nasal cannula. Continues on Cardizem at 5 mg/h. Normal saline infusing at 75 mm/h. Her chief complaint at this time is right sided chest/rib pain. Rated 10/10 on a 10 point numerical scale. Worse with palpation, coughing, or even deep breathing. Denies any recent falls or trauma. Follow-up chest x-ray showing cardiomegaly, pulmonary vascular congestion, with bilateral pleural effusions, left greater than right left-sided associated atelectasis or infectious process. No identifiable pneumothoraces. She does report a history of heart failure. Denies missing any doses of Lasix. Does have some lower extremity pitting edema. Denies any heart palpitations, lightheadedness, syncopal events. Patient denies any sick contacts. Denies URI-like symptoms. Denies coughing. No wheezing. Denies any fevers or chills. Denies nausea, vomiting, diarrhea. Oral intake has been fair. Reportedly does have a history of asthma/COPD. She uses a Symbicort inhaler as well as as needed rescue inhaler at home, which have already been continued here. Progress note dated February 04, 2025. This is a 69-year-old female who was seen yesterday in consultation. Please see the note above. The patient has a history of multiple medical problems including asthma/COPD, hypertension, hyperlipidemia, diabetes mellitus, atrial fibrillation, breast cancer, among other things. The patient has a history of metastatic breast carcinoma, with osseous mets, and brain mets. The patient is followed by Dr. Yancey in medical oncology, and Dr. Gutiérrez, from radiation oncology. The patient was seen in the emergency department, for severe right- sided chest pain, with shortness of breath. She was found to have atrial fibrillation with RVR. The patient is seen today in room 368. She is currently on 1 L of oxygen. She is getting saline at 20 cc an hour. She appears in no acute distress. No respiratory distress. She is resting comfortably in bed. Current labs showed a white count of 4.8, hemoglobin 8.1, hematocrit 27, and a platelet count of 66,000. Sodium 133, potassium 4.4, chlorides 96, CO2 30, BUN 26, and creatinine 1.08. Glucose is 320. Chest x-ray shows diffuse bilateral lung infiltrates. Objective - Vital Signs Vital signs: Vital Signs Temp 98.0 F 02/04/25 11:08 Pulse 92 02/04/25 13:26 Resp 19 02/04/25 11:08 BP 142/83 02/04/25 11:08 Pulse Ox 96 02/04/25 11:08 FiO2 Intake & Output 02/03/25 02/04/25 02/04/25 18:59 06:59 18:59 Intake Total 240 310 240 Output Total 225 1550 1175 Balance 15 1240 -935 Weight 79.5 kg Intake: Oral 240 240 Blood Product 0 310 Rc Irr As1 Unit 0 310 [id number] Output: Urine 225 1550 1175 Other: Voiding Method External Catheter External Catheter External Catheter - Exam No acute distress, oriented 3. Currently on nasal O2 at 1 L. HEENT examination is grossly unremarkable. Mucous membranes are moist. No oral lesions. Neck supple. Full range of motion. No adenopathy thyromegaly or neck vein distention. Cardiovascular examination reveals regular rhythm rate. S1-S2 normal. No S3 or S4. A soft systolic murmur is noted. Lungs reveal clear but diminished breath sounds. No distinct wheezes or rhonchi. Breath sounds are equal bilaterally. Abdomen soft bowel sounds are heard. No masses or tenderness. Extremities are intact. No cyanosis or clubbing. Edema is noted. Skin is without rash or lesion. Neurologic examination is brief but nonfocal. - Labs CBC & Chem 7: 02/04/25 06:55 02/04/25 06:55 Labs: Abnormal Lab Results - Last 24 Hours (Table) 02/03/25 02/03/25 02/03/25 Range/Units 06:24 14:34 16:30 RBC (4.10-5.20) 10*6/uL Hgb (12.0-15.0) g/dL Hct (37.2-46.3) % MCHC (32.0-37.0) g/dL Plt Count (140-440) 10*3/uL Immature Gran # (0.00-0.04) 10*3/uL Lymphocytes # (Manual) (1.0-4.8) k/uL Metamyelocytes # (Man) (0) k/uL Nucleated RBCs (0-0) /100 WBC Sodium (137-145) mmol/L Chloride (98-107) mmol/L BUN (7-17) mg/dL Creatinine (0.52-1.04) mg/dL Glucose (74-99) mg/dL POC Glucose (mg/dL) 151 H (70-110) mg/dL Hemoglobin A1c (<=6.0) % Calcium (8.4-10.2) mg/dL Iron 215 H (50-170) UG/DL % Saturation 68.91 H (12.00-45.00) Ferritin 781.0 H (10.0-291.0) ng/mL Alkaline Phosphatase (38-126) U/L Crossmatch See Detail 02/03/25 02/04/25 02/04/25 Range/Units 19:57 05:58 06:55 RBC (4.10-5.20) 10*6/uL Hgb (12.0-15.0) g/dL Hct (37.2-46.3) % MCHC (32.0-37.0) g/dL Plt Count (140-440) 10*3/uL Immature Gran # (0.00-0.04) 10*3/uL Lymphocytes # (Manual) (1.0-4.8) k/uL Metamyelocytes # (Man) (0) k/uL Nucleated RBCs (0-0) /100 WBC Sodium (137-145) mmol/L Chloride (98-107) mmol/L BUN (7-17) mg/dL Creatinine (0.52-1.04) mg/dL Glucose (74-99) mg/dL POC Glucose (mg/dL) 184 H 272 H (70-110) mg/dL Hemoglobin A1c 6.4 H (<=6.0) % Calcium (8.4-10.2) mg/dL Iron (50-170) UG/DL % Saturation (12.00-45.00) Ferritin (10.0-291.0) ng/mL Alkaline Phosphatase (38-126) U/L Crossmatch 02/04/25 02/04/25 02/04/25 Range/Units 06:55 06:55 11:40 RBC 2.97 L (4.10-5.20) 10*6/uL Hgb 8.1 L (12.0-15.0) g/dL Hct 27.0 L (37.2-46.3) % MCHC 30.0 L (32.0-37.0) g/dL Plt Count 66 L (140-440) 10*3/uL Immature Gran # 0.29 H (0.00-0.04) 10*3/uL Lymphocytes # (Manual) 0.67 L (1.0-4.8) k/uL Metamyelocytes # (Man) 0.05 H (0) k/uL Nucleated RBCs 1 H (0-0) /100 WBC Sodium 133 L (137-145) mmol/L Chloride 96 L (98-107) mmol/L BUN 26 H (7-17) mg/dL Creatinine 1.08 H (0.52-1.04) mg/dL Glucose 238 H (74-99) mg/dL POC Glucose (mg/dL) 320 H (70-110) mg/dL Hemoglobin A1c (<=6.0) % Calcium 7.8 L (8.4-10.2) mg/dL Iron (50-170) UG/DL % Saturation (12.00-45.00) Ferritin (10.0-291.0) ng/mL Alkaline Phosphatase 447 H (38-126) U/L Crossmatch Assessment and Plan Assessment: Atrial fibrillation with RVR, resolved. Exacerbation of diastolic congestive heart failure. Chest pain secondary to pathological right rib fracture and diffuse osseous metastasis. Acute hypoxemic respiratory failure. Mild intermittent asthma/COPD. Bicytopenia. Breast cancer S/P right-sided mastectomy in 2021. Diffuse osseous metastasis. Possible brain metastasis. History of right total knee arthroplasty. Chronic pain, secondary to malignancy. Hypertension. History of hyperlipidemia. Insulin-dependent diabetes mellitus. Gastroesophageal reflux disease. Obesity, with a BMI of 36.6 kg/m. Plan: Plan dated February 04, 2025. The patient is seen today in room 368. As mentioned, she is on 1 L of oxygen. She is in no distress. No respiratory distress. She has no new complaints. She is getting saline at 20 cc an hour. Labs, x-rays, medications are reviewed. Will continue to follow the patient, make recommendations. Prognosis is guarded. Dictation was produced using [employer] software. Please excuse any grammatical, word or spelling errors. Time with Patient: Less than 30
--- NOTE | 2025-02-04 15:32 | P.PN ---
Subjective Progress Note Date: 02/04/25 Pt in bedside chair, remains lethargic. Pt is A&Ox2, disoriented to time. Denies pain at todays visit Objective - Vital Signs Vital signs: Vital Signs Temp 98.0 F 02/04/25 11:08 Pulse 96 02/04/25 12:22 Resp 19 02/04/25 11:08 BP 142/83 02/04/25 11:08 Pulse Ox 96 02/04/25 11:08 FiO2 Intake & Output 02/03/25 02/04/25 02/04/25 18:59 06:59 18:59 Intake Total 240 310 0 Output Total 225 1550 1175 Balance 15 -1240 -1175 Weight 79.5 kg Intake: Oral 240 0 Blood Product 0 310 Rc Irr As1 Unit 0 310 [id number] Output: Urine 225 1550 1175 Other: Voiding Method External Catheter External Catheter External Catheter - Constitutional General appearance: Present: no acute distress, obese - EENT Eyes: Present: anicteric sclerae, EOMI ENT: Present: hearing grossly normal - Respiratory Details: breathing is even and unlabored - Cardiovascular Details: skin warm and dry - Neurologic Neurologic Comment(s): lethargic, A&Ox2 - Musculoskeletal Musculoskeletal: Present: generalized weakness - Labs CBC & Chem 7: 02/04/25 06:55 02/04/25 06:55 Labs: Abnormal Lab Results - Last 24 Hours (Table) 02/03/25 02/03/25 02/03/25 Range/Units 06:24 14:34 16:30 RBC (4.10-5.20) 10*6/uL Hgb (12.0-15.0) g/dL Hct (37.2-46.3) % MCHC (32.0-37.0) g/dL Plt Count (140-440) 10*3/uL Immature Gran # (0.00-0.04) 10*3/uL Lymphocytes # (Manual) (1.0-4.8) k/uL Metamyelocytes # (Man) (0) k/uL Nucleated RBCs (0-0) /100 WBC Sodium (137-145) mmol/L Chloride (98-107) mmol/L BUN (7-17) mg/dL Creatinine (0.52-1.04) mg/dL Glucose (74-99) mg/dL POC Glucose (mg/dL) 151 H (70-110) mg/dL Hemoglobin A1c (<=6.0) % Calcium (8.4-10.2) mg/dL Iron 215 H (50-170) UG/DL % Saturation 68.91 H (12.00-45.00) Ferritin 781.0 H (10.0-291.0) ng/mL Alkaline Phosphatase (38-126) U/L Crossmatch See Detail 02/03/25 02/04/25 02/04/25 Range/Units 19:57 05:58 06:55 RBC (4.10-5.20) 10*6/uL Hgb (12.0-15.0) g/dL Hct (37.2-46.3) % MCHC (32.0-37.0) g/dL Plt Count (140-440) 10*3/uL Immature Gran # (0.00-0.04) 10*3/uL Lymphocytes # (Manual) (1.0-4.8) k/uL Metamyelocytes # (Man) (0) k/uL Nucleated RBCs (0-0) /100 WBC Sodium (137-145) mmol/L Chloride (98-107) mmol/L BUN (7-17) mg/dL Creatinine (0.52-1.04) mg/dL Glucose (74-99) mg/dL POC Glucose (mg/dL) 184 H 272 H (70-110) mg/dL Hemoglobin A1c 6.4 H (<=6.0) % Calcium (8.4-10.2) mg/dL Iron (50-170) UG/DL % Saturation (12.00-45.00) Ferritin (10.0-291.0) ng/mL Alkaline Phosphatase (38-126) U/L Crossmatch 02/04/25 02/04/25 02/04/25 Range/Units 06:55 06:55 11:40 RBC 2.97 L (4.10-5.20) 10*6/uL Hgb 8.1 L (12.0-15.0) g/dL Hct 27.0 L (37.2-46.3) % MCHC 30.0 L (32.0-37.0) g/dL Plt Count 66 L (140-440) 10*3/uL Immature Gran # 0.29 H (0.00-0.04) 10*3/uL Lymphocytes # (Manual) 0.67 L (1.0-4.8) k/uL Metamyelocytes # (Man) 0.05 H (0) k/uL Nucleated RBCs 1 H (0-0) /100 WBC Sodium 133 L (137-145) mmol/L Chloride 96 L (98-107) mmol/L BUN 26 H (7-17) mg/dL Creatinine 1.08 H (0.52-1.04) mg/dL Glucose 238 H (74-99) mg/dL POC Glucose (mg/dL) 320 H (70-110) mg/dL Hemoglobin A1c (<=6.0) % Calcium 7.8 L (8.4-10.2) mg/dL Iron (50-170) UG/DL % Saturation (12.00-45.00) Ferritin (10.0-291.0) ng/mL Alkaline Phosphatase 447 H (38-126) U/L Crossmatch Assessment and Plan (1) Anemia Current Visit: Yes Status: Acute Priority: Medium Code(s): D64.9 - ANEMIA, UNSPECIFIED SNOMED Code(s): 033372243 (2) Thrombocytopenia Current Visit: Yes Status: Acute Priority: Medium Code(s): D69.6 - THROMBOCYTOPENIA, UNSPECIFIED SNOMED Code(s): 727566560 (3) Acute exacerbation of chronic obstructive pulmonary disease (COPD) Current Visit: Yes Status: Acute Priority: High Code(s): J44.1 - CHRONIC OBSTRUCTIVE PULMONARY DISEASE W (ACUTE) EXACERBATION SNOMED Code(s): 037922904 (4) Atrial fibrillation with rapid ventricular response Current Visit: Yes Status: Acute Priority: High Code(s): I48.91 - UNSPECIFIED ATRIAL FIBRILLATION SNOMED Code(s): 954223133830774 (5) Atypical chest pain Current Visit: Yes Status: Acute Priority: High Code(s): R07.89 - OTHER CHEST PAIN SNOMED Code(s): 534921162 (6) CHF (congestive heart failure) Current Visit: Yes Status: Acute Priority: High Code(s): I50.9 - HEART FAILURE, UNSPECIFIED SNOMED Code(s): 89154281 (7) Breast cancer Current Visit: No Status: Acute Priority: High Code(s): C50.919 - MALIGNANT NEOPLASM OF UNSP SITE OF UNSPECIFIED FEMALE BREAST SNOMED Code(s): 822062437 Plan: A-fib with RVR, CHF exacerbation -Anticoagulated with Eliquis -Continues lasix -Cardiology and pulmonology following Anemia, thrombocytopenia: -Pancytopenia noted during admission in 08/2024. Pancytopenia workup at that time showed no MGUS, iron studies were most consistent with inflammation. -Cytopenias felt likely to be related to bone metastasis. Also possible component of cirrhosis noted on CT AP -On admit, hgb 8.5, MCV 89.0, plt 70,000. Subsequent CBC showed hgb 7.1, plt 67,000 -No reported episodes of acute bleeding -S/p 1 unit PRBCs -Iron studies consistent with anemia of inflammation -As long as there is no acute bleeding episodes, hgb shows appropriate response to transfusion, and plt are > 50,000, pt can continue on anticoagulation -Repeat hgb today 8.1, showing appropriate response to blood transfusion. Plts 66,000 -Ok to resume Eliquis. Continue to monitor for s/s of bleeding -Continue to monitor CBC Metastatic breast cancer: -Oncology history as dictated in the HPI -August 18, 2024, CT of the right knee reporting unusual pattern she is sclerosis and lucency about both distal femoral and proximal tibial components, similar to 03/10/2024 imaging. Areas of periprosthetic osseous scalloping/erosion both anteriorly and posteriorly at the femoral component is similar to prior study as well, etiology unclear. Sequela of chronic infection versus underlying osseous metastatic disease. There was an interval development of a nondisplaced periprosthetic fracture along the anterior aspect of the tibia. Nuclear medicine bone scan 08/21/2024 did show diffuse uptake within the appendicular skeleton corresponding to CT findings. -CT AP reported diffuse osseous metastatic disease. No greater than 1 cm lymph nodes noted to suggest intra-abdominal metastatic disease. Subacute fracture of the left 11th rib. Nodular contour to liver, possible cirrhosis. -MRI brain showed brain mets. Previously treated with decadron -Bone biopsy on 11/19/[address] [facility], biopsy was positive for metastatic breast cancer,ER/MD+(92%,2%),HER2/CHRIS low (1+). -Completed RT to right knee/right shoulder during previous admit, however did not f/u outpt for brain RT -Unfortunately, outpt care has been delayed due to multiple cancellations and hospitalizations. She has not yet started treatment, and has not followed up with rad onc or ortho oncology -Due to confusion and untreated known brain mets will repeat brain MRI. Will also repeat staging scans, CT CAP ordered -Rad onc following, no plan for further RT at this time Pain, related to malignancy: -Knee and shoulder pain-2/2 mets -Pain medications adjusted -Bowel regimen in place Had discussion with pt today regarding her oncological care. Discussed both brain radiation and possible initiating treatment inpt if [employer] approved. Pt is stating she is unsure if she wants to proceed with further treatment. Comfort cares measures were also discussed. However, at this time pt is showing some confusion. Will obtain staging CT CAP as well as brain MRI, and will need to have a goals of care discussion with pt and family once scans are completed
[2025-02-04 16:35] LABS: Glucose,Whole Blood 292 mg/dL (70-110)
--- NOTE | 2025-02-04 17:58 | CT ---
EXAMINATION TYPE: CT ChestAbdPelvis w con CT DLP: 2341.5 mGycm, Automated exposure control for dose reduction was used. DATE OF EXAM: 02/04/2025 5:34 PM COMPARISON: Chest radiograph 02/04/2025, CTA chest 02/02/2025, 11/27/2024, 08/18/2024, CT abdomen and pe lvis 08/20/2024 CLINICAL INDICATION:Female, 69 years old with history of metastatic breast cancer, staging; PHH, META STATIC BREAST CANCER, STAGING Technique: Multiple axial images of the chest, abdomen, and pelvis were obtained following the intrav enous administration of 100 mL Isovue-300. Two-dimensional coronal and sagittal reconstructions were obtained. Findings: CHEST: LUNGS/ PLEURA: Moderate sized bilateral pleural effusions. Anterior subpleural right upper lobe conso lidation likely related to posttreatment change. AIRWAY: Patent and unremarkable.. HEART: Cardiomegaly is demonstrated.Small aortic valvular calcifications. No pericardial effusion. No significant coronary artery calcifications. MEDIASTINUM: No enlarged lymph nodes greater than 1 cm short axis. VASCULATURE: No aortic aneurysm. Mild atherosclerotic calcification of the aorta and its branches. MUSCULOSKELETAL: No acute osseous abnormalities. Partial visualization of left shoulder prosthesis. P artial visualization of anterior cervical fusion hardware. Redemonstration of extensive sclerotic oss eous metastasis. Healing multiple left sided rib fractures. SOFT TISSUES/LYMPH NODES: Mild anasarca. Redemonstration of right breast seroma versus breast reconst ruction implant measuring 10.6 x 3.2 cm. LOWER NECK: No significant findings. ABDOMEN: ABDOMEN LIVER: Redemonstration of surface nodularity to the liver without focal lesion identified. Portal edel ous system is patent. GALLBLADDER AND BILE DUCTS: The gallbladder is surgically absent with expected extrahepatic biliary d uctal dilatation. PANCREAS: Mildly atrophic. SPLEEN: Mildly enlarged measuring 14.5 cm in CC dimension. ADRENAL GLANDS: Unremarkable. KIDNEYS AND URETERS: No evidence of hydronephrosis or renal calculus. The kidneys enhance symmetrical ly. PELVIS BLADDER: Underdistended with hyperdense material identified. Likely related to prior contrast adminis tration from recent CTA. REPRODUCTIVE: Unremarkable. ABDOMEN & PELVIS STOMACH AND BOWEL: Periampullary duodenal diverticulum.Few scattered distal colonic diverticula witho ut evidence for acute diverticulitis. No evidence of bowel obstruction. PERITONEUM: No evidence of pneumoperitoneum. Small volume ascites throughout the abdomen and pelvis. VASCULATURE: Mild atherosclerotic calcifications are present throughout the abdominal aorta and its b ranches. No abdominal aortic aneurysm. MUSCULOSKELETAL: No acute osseous abnormalities. Postsurgical changes from posterior fusion at L5-S1 with bilateral pedicular screws and rods. Additional postsurgical changes with transverse oriented sc rews through the right SI joint. Redemonstration of extensive sclerotic osseous metastasis. LYMPH NODES: No evidence for lymphadenopathy. SOFT TISSUE/ABDOMINAL WALL: Diffuse anasarca. IMPRESSION: 1. Redemonstration of extensive osseous metastasis. 2. No lymphadenopathy greater than 1 cm short axis. 3. Mild splenomegaly. 4. Nodular contour to the liver. Correlate for cirrhosis. 5. Moderate-sized bilateral pleural effusions with diffuse anasarca and small volume ascites within t he abdomen and pelvis. Correlate for volume overload versus portal hypertension. [facility], , 02/04/2025 5:56 PM
[2025-02-04 20:08] LABS: Glucose,Whole Blood 277 mg/dL (70-110)
[2025-02-04] MEDS: MORPHINE SULFATE ER 30 MG TABLET PO SCH (20:23)
[2025-02-04] MEDS: FUROSEMIDE 10 MG/ML 4 ML VIAL IV SCH (20:25)
[2025-02-05 06:00] LABS: Glucose,Whole Blood 164 mg/dL (70-110)
[2025-02-05 08:15] LABS: HCT 26.8 % (37.2-46.3); HGB 8.3 g/dL (12.0-15.0); MCH 27.8 pg (27.0-32.0); MCV 89.6 fL (80.0-97.0); Mean Platelet Volume 10.8 fL (9.5-12.2); RBC 2.99 10*6/uL (4.10-5.20); RDW 18.4 % (11.5-14.5)
[2025-02-05 08:43] LABS: Platelet Count 68 10*3/uL (140-440)
[2025-02-05 08:59] LABS: Carbon Dioxide 30 mmol/L (22-30); Glucose 134 mg/dL (74-99); Potassium 4.1 mmol/L (3.5-5.1)
[2025-02-05 09:17] LABS: African American GFR (CKD) 74 (>60 ml/min/1.73 sqM); Anion Gap 9 mmol/L; Blood Urea Nitrogen 29 mg/dL (7-17); Calcium 7.8 mg/dL (8.4-10.2); Chloride 95 mmol/L (98-107); Non-African American GFR(CKD) 64 (>60 ml/min/1.73 sqM); Sodium 134 mmol/L (137-145)
[2025-02-05 11:03] LABS: Band Neutrophils % 3 %; Metamyelocytes # (M) 0.05 k/uL (0); Metamyelocytes % 1 %; Neutrophils % (M) 82 %; Nucleated Red Blood Cells 5 /100 WBC (0-0); Total Cells Counted 200
[2025-02-05 11:04] LABS: Lymphocytes # (M) 0.58 k/uL (1.0-4.8); Monocytes # (M) 0.19 k/uL (0-1.0); Neutrophils # (M) 4.08 k/uL (1.3-7.7); WBC 4.81 10*3/uL (4.50-10.00)
[2025-02-05 11:06] LABS: Anisocytosis (M) Present
[2025-02-05 11:18] LABS: Glucose,Whole Blood 255 mg/dL (70-110)
--- NOTE | 2025-02-05 13:42 | P.PN ---
Subjective Progress Note Date: 02/05/25 Principal diagnosis: Congestive heart failure, atrial fibrillation. Patient is a 69-year-old female with past medical history significant for asthma/COPD, hypertension, hyperlipidemia, diabetes mellitus, atrial fibrillation, breast cancer with previous right mastectomy in 2021 followed by radiation and anastrozole. More recently, concerns of diffuse osseous metastasis, reportedly biopsied at [facility]. Abdominal CT from August, demonstrating diffuse osseous metastatic disease. Subacute fracture of the left rib 11. Brain MRI done 12/02/2024 showing 2 focal regions of vasogenic edema within the right frontal lobe and right anterior temporal lobe with adjacent abnormal enhancing focal dural thickening on a background of diffuse dural enhancement. Findings concerning for dural metastasis in the setting of known osseous metastasis. She is seeing Dr. Yancey from medical oncology and Dr. Gutiérrez from radiation oncology. Currently on Ibrance. Of note , patient also recently hospitalized October, with atrial fibrillation with RVR and CHF exacerbation. Echocardiogram done during this hospitalization estimated left ventricular ejection fraction of 55 to 60% moderate mitral regurgitation, mild pulmonary hypertension, and mild TR. She does take Lasix on outpatient basis and denies missing any doses. Patient was transferred from [facility] yesterday afternoon. Apparently last night developed severe right-sided chest pain with associated shortness of breath. On arrival to the outside facility she was found to be in atrial fibrillation with RVR. She does have history of patient is maintained on Eliquis. She did have a chest CT an giogram at outside facility reportedly negative for pulmonary embolism. Did demonstrate cardiomegaly, with moderate bilateral pleural effusions suggestive of congestive heart failure and/or volume overload. Right basilar consolidation favoring compressive atelectasis. Extensive diffuse sclerotic metastatic disease with more acute appearing minimally displaced anterior right rib fracture. Subacute healing posterior lateral left-sided rib fracture. Patient has since been placed on a Cardizem infusion for rate control of her atrial fibrillation. Also started on Lasix 60 mg twice daily. Labs including a CBC with a WBC count of 4.5, hemoglobin 8.5, platelets 70,000. CMP with a sodium 136, potassium 4.5, chloride 99, serum bicarb 26, BUN 11, creatinine 0.66, glucose 185. Calcium 8.9. ALP 640. AST 40, ALT 15. Troponins less than 0.012 x 3. NT proBN 3430. Patient currently being evaluated in the cardiac floor. She is resting comfortably on 2 L/min nasal cannula. Continues on Cardizem at 5 mg/h. Normal saline infusing at 75 mm/h. Her chief complaint at this time is right sided chest/rib pain. Rated 10/10 on a 10 point numerical scale. Worse with palpation, coughing, or even deep breathing. Denies any recent falls or trauma. Follow-up chest x-ray showing cardiomegaly, pulmonary vascular congestion, with bilateral pleural effusions, left greater than right left-sided associated atelectasis or infectious process. No identifiable pneumothoraces. She does report a history of heart failure. Denies missing any doses of Lasix. Does have some lower extremity pitting edema. Denies any heart palpitations, lightheadedness, syncopal events. Patient denies any sick contacts. Denies URI-like symptoms. Denies coughing. No wheezing. Denies any fevers or chills. Denies nausea, vomiting, diarrhea. Oral intake has been fair. Reportedly does have a history of asthma/COPD. She uses a Symbicort inhaler as well as as needed rescue inhaler at home, which have already been continued here. Progress note dated February 04, 2025. This is a 69-year-old female who was seen yesterday in consultation. Please see the note above. The patient has a history of multiple medical problems including asthma/COPD, hypertension, hyperlipidemia, diabetes mellitus, atrial fibrillation, breast cancer, among other things. The patient has a history of metastatic breast carcinoma, with osseous mets, and brain mets. The patient is followed by Dr. Yancey in medical oncology, and Dr. Gutiérrez, from radiation oncology. The patient was seen in the emergency department, for severe right- sided chest pain, with shortness of breath. She was found to have atrial fibrillation with RVR. The patient is seen today in room 368. She is currently on 1 L of oxygen. She is getting saline at 20 cc an hour. She appears in no acute distress. No respiratory distress. She is resting comfortably in bed. Current labs showed a white count of 4.8, hemoglobin 8.1, hematocrit 27, and a platelet count of 66,000. Sodium 133, potassium 4.4, chlorides 96, CO2 30, BUN 26, and creatinine 1.08. Glucose is 320. Chest x-ray shows diffuse bilateral lung infiltrates. Progress note dated February 05, 2025. 69-year-old female seen again in room 368. She is resting comfortably in bed. She is not receiving any oxygen. She is not on any IV fluids. She has no specific complaints today. The patient has a history of metastatic breast cancer, with osseous, and brain mets. She is followed by both radiation and medical oncology. White count is 4.8, hemoglobin 8.3, hematocrit 26.8, platelet count 68,000. Sodium 134, potassium 4.1, chloride 95, CO2 30, BUN 29, creatinine 0.93. Glucose 255. Calcium 7.8. CT scan shows redemonstration of extensive osseous metastasis, mild splenomegaly, nodular contour of the liver which could be consistent with cirrhosis, and moderate-sized bilateral pleural effusions. Objective - Vital Signs Vital signs: Vital Signs Temp 97.7 F 02/05/25 08:30 Pulse 96 02/05/25 12:17 Resp 18 02/05/25 12:00 BP 135/86 02/05/25 12:00 Pulse Ox 97 02/05/25 12:00 FiO2 Intake & Output 02/04/25 02/05/25 02/05/25 18:59 06:59 18:59 Intake Total 480 240 Output Total 1325 1200 1200 Balance -845 -1200 -960 Weight 81.5 kg Intake: Oral 480 240 Output: Urine 1325 1200 1200 Other: Voiding Method External Catheter External Catheter External Catheter # Voids 1 - Exam No acute distress, oriented 3. Currently on room air. HEENT examination is grossly unremarkable. Mucous membranes are moist. No oral lesions. Neck supple. Full range of motion. No adenopathy thyromegaly or neck vein distention. Cardiovascular examination reveals regular rhythm rate. S1-S2 normal. No S3 or S4. A soft systolic murmur is noted. Lungs reveal clear but diminished breath sounds. No distinct wheezes or rhonchi. Breath sounds are equal bilaterally. Abdomen soft bowel sounds are heard. No masses or tenderness. Extremities are intact. No cyanosis or clubbing. Edema is noted. Skin is without rash or lesion. Neurologic examination is brief but nonfocal. - Labs CBC & Chem 7: 02/05/25 07:34 02/05/25 07:34 Labs: Abnormal Lab Results - Last 24 Hours (Table) 02/03/25 02/04/25 02/04/25 Range/Units 06:24 16:33 20:06 RBC (4.10-5.20) 10*6/uL Hgb (12.0-15.0) g/dL Hct (37.2-46.3) % MCHC (32.0-37.0) g/dL Plt Count (140-440) 10*3/uL Immature Gran # (0.00-0.04) 10*3/uL Lymphocytes # (Manual) (1.0-4.8) k/uL Metamyelocytes # (Man) (0) k/uL Nucleated RBCs (0-0) /100 WBC Sodium (137-145) mmol/L Chloride (98-107) mmol/L BUN (7-17) mg/dL Glucose (74-99) mg/dL POC Glucose (mg/dL) 292 H 277 H (70-110) mg/dL Calcium (8.4-10.2) mg/dL RBC Folate 1,068 H (280 - 791) ng/mL 02/05/25 02/05/25 02/05/25 Range/Units 05:58 07:34 07:34 RBC 2.99 L (4.10-5.20) 10*6/uL Hgb 8.3 L (12.0-15.0) g/dL Hct 26.8 L (37.2-46.3) % MCHC 31.0 L (32.0-37.0) g/dL Plt Count 68 L (140-440) 10*3/uL Immature Gran # 0.28 H (0.00-0.04) 10*3/uL Lymphocytes # (Manual) 0.58 L (1.0-4.8) k/uL Metamyelocytes # (Man) 0.05 H (0) k/uL Nucleated RBCs 5 H (0-0) /100 WBC Sodium 134 L (137-145) mmol/L Chloride 95 L (98-107) mmol/L BUN 29 H (7-17) mg/dL Glucose 134 H (74-99) mg/dL POC Glucose (mg/dL) 164 H (70-110) mg/dL Calcium 7.8 L (8.4-10.2) mg/dL RBC Folate (280 - 791) ng/mL 02/05/25 Range/Units 11:16 RBC (4.10-5.20) 10*6/uL Hgb (12.0-15.0) g/dL Hct (37.2-46.3) % MCHC (32.0-37.0) g/dL Plt Count (140-440) 10*3/uL Immature Gran # (0.00-0.04) 10*3/uL Lymphocytes # (Manual) (1.0-4.8) k/uL Metamyelocytes # (Man) (0) k/uL Nucleated RBCs (0-0) /100 WBC Sodium (137-145) mmol/L Chloride (98-107) mmol/L BUN (7-17) mg/dL Glucose (74-99) mg/dL POC Glucose (mg/dL) 255 H (70-110) mg/dL Calcium (8.4-10.2) mg/dL RBC Folate (280 - 791) ng/mL Assessment and Plan Assessment: Atrial fibrillation with RVR, resolved. Exacerbation of diastolic congestive heart failure. Chest pain secondary to pathological right rib fracture and diffuse osseous metastasis. Acute hypoxemic respiratory failure. Mild intermittent asthma/COPD. Bicytopenia. Breast cancer S/P right-sided mastectomy in 2021. Diffuse osseous metastasis. Possible brain metastasis. History of right total knee arthroplasty. Chronic pain, secondary to malignancy. Hypertension. History of hyperlipidemia. Insulin-dependent diabetes mellitus. Gastroesophageal reflux disease. Obesity, with a BMI of 36.6 kg/m. Plan: Plan dated February 04, 2025. The patient is seen today in room 368. As mentioned, she is on 1 L of oxygen. She is in no distress. No respiratory distress. She has no new complaints. She is getting saline at 20 cc an hour. Labs, x-rays, medications are reviewed. Will continue to follow the patient, make recommendations. Prognosis is guarded. Dictation was produced using [employer] software. Please excuse any grammatical, word or spelling errors. Plan dated February 05, 2025. Patient is seen today in room 368. She is currently on room air. No fluids. The patient has metastatic breast cancer, with osseous and brain metastasis. The patient's CODE STATUS needs to be addressed by the primary service. Labs, x-rays, medications are reviewed. Repeat CT scan is reviewed. Labs, x-rays and medications are reviewed. Prognosis is poor. Dictation was produced using [employer] dictation software. Please excuse any grammatical, word or spelling errors. Time with Patient: Less than 30
--- NOTE | 2025-02-05 13:52 | P.PN ---
Subjective Progress Note Date: 02/05/25 Reason for Consult (text): A-fib with RVR History of present illness: This is a 69-year-old female patient with past medical history of hypertension, hyperlipidemia, persistent atrial fibrillation, COPD, history of breast cancer. We have been asked to evaluate the patient for A-fib with RVR. Patient gives history that she came into the hospital because her chest hurt. Patient had a hospitalization in October of this year was seen by cardiology for chest pain in which acute coronary syndrome was ruled out, treated for acute on chronic diastolic heart failure, paroxysmal atrial fibrillation with RVR. Patient has not followed up with cardiology. Patient was found to be in A-fib with RVR. She states she has been taking Eliquis as instructed. Patient has been started on Cardizem drip currently at 5 mg/h. Blood pressure 114/79, heart rate 89-102, pulse ox 99% on 2 L nasal cannula. -EKG: A-fib at 120 bpm -Chest x-ray: Patchy infiltrate with moderate left pleural effusion and minimal right pleural effusion. Correlate for pneumonia. -Laboratory studies: WBC 5.8, hemoglobin 7.1, platelet count 67. Troponin negative x 3. proBNP 3430. Magnesium 2.1. -Home cardiac medications: Amlodipine 10 mg daily, Eliquis 5 mg twice daily, atorvastatin 40 mg daily, Lasix 60 mg twice daily, lisinopril 40 mg daily. -Echocardiogram performed 10/24/2024 revealed EF of 55 to 60%, RVSP 35 mmHg, moderate mitral regurgitation, mild TR. 02/04/2025 Patient seen and examined on the cardiac stepdown unit. Blood pressure readings are much improved after medication changes made yesterday. Patient has been maintained on IV Lasix 40 mg every 8 hours which will decrease frequency. Blood pressure 142/83, heart rate in the 90s, pulse ox 92% on room air. Lab work reveals hemoglobin 8.1, platelet count 66, sodium 133, BUN 26 creatinine 1.08. Hemoglobin A1c 6.4. We are waiting for oncology evaluation and recommendations regarding Eliquis use with thrombocytopenia. 02/05/2025 Patient seen and examined. Patient has been evaluated by oncology and they have cleared her to continue on the Eliquis which she has been done. Blood pressure 135/86, heart rate 96-101, pulse ox 97% on room air. Repeat blood work reveals hemoglobin 8.3, platelet count 68, sodium 134, potassium 4.1, BUN 29 creatinine 0.93. Physical examination: Gen: This is 69-year-old female in no acute distress VS: reviewed HEENT: Head is atraumatic, normocephalic. Pupils equal, round. Sclerae is anicteric. NECK: Supple. No JVD. LUNGS: Clear to auscultation. No wheezes or rhonchi. No intercostal retractions. HEART: Irregular rate and rhythm. No murmur. ABDOMEN: Soft No tenderness. EXTREMITIES: No pedal edema. No calf tenderness. NEUROLOGICAL: Patient is awake, alert and oriented x3. Assessment: Persistent atrial fibrillation with RVR, Acute hypoxic respiratory failure Possible pneumonia Acute on chronic diastolic heart failure COPD Hypertension Breast cancer Thrombocytopenia Anemia Plan: Continue patient's home cardiac medications with the following changes: Discontinue amlodipine Decrease lisinopril to 20 mg daily Increase metoprolol to 50 mg BID Transition IV Lasix to home dose of 60 mg twice daily Monitor JOSE, daily weights, electrolytes and renal function No need to obtain echocardiogram as this was done 10/24/24 Continue Eliquis for now but continue to monitor thrombocytopenia and need to discontinue Eliquis if this continues to decrease Cardiology will sign off this case and follow on an as-needed basis. Please reconsult for any new concerns. Patient may follow-up in the office with Dr. Montelongo in 2 weeks. Nurse practitioner note has been reviewed, I agree with documented findings and plan of care. Patient was seen and examined. Objective - Vital Signs Vital signs: Vital Signs Temp 97.7 F 02/05/25 04:00 Pulse 97 02/05/25 04:00 Resp 19 02/05/25 04:00 BP 137/80 02/05/25 04:00 Pulse Ox 95 02/05/25 04:00 FiO2 Intake & Output 02/04/25 02/05/25 02/05/25 18:59 06:59 18:59 Intake Total 480 240 Output Total 1325 1200 Balance -845 -1200 240 Weight 81.5 kg Intake: Oral 480 240 Output: Urine 1325 1200 Other: Voiding Method External Catheter External Catheter # Voids 1 - Labs CBC & Chem 7: 02/05/25 07:34 02/05/25 07:34 Labs: Abnormal Lab Results - Last 24 Hours (Table) 02/04/25 02/04/25 02/04/25 Range/Units 06:55 06:55 11:40 RBC (4.10-5.20) 10*6/uL Hgb (12.0-15.0) g/dL Hct (37.2-46.3) % MCHC (32.0-37.0) g/dL Plt Count 66 L (140-440) 10*3/uL Immature Gran # (0.00-0.04) 10*3/uL Lymphocytes # (Manual) 0.67 L (1.0-4.8) k/uL Metamyelocytes # (Man) 0.05 H (0) k/uL Nucleated RBCs 1 H (0-0) /100 WBC POC Glucose (mg/dL) 320 H (70-110) mg/dL Hemoglobin A1c 6.4 H (<=6.0) % 02/04/25 02/04/25 02/05/25 Range/Units 16:33 20:06 05:58 RBC (4.10-5.20) 10*6/uL Hgb (12.0-15.0) g/dL Hct (37.2-46.3) % MCHC (32.0-37.0) g/dL Plt Count (140-440) 10*3/uL Immature Gran # (0.00-0.04) 10*3/uL Lymphocytes # (Manual) (1.0-4.8) k/uL Metamyelocytes # (Man) (0) k/uL Nucleated RBCs (0-0) /100 WBC POC Glucose (mg/dL) 292 H 277 H 164 H (70-110) mg/dL Hemoglobin A1c (<=6.0) % 02/05/25 Range/Units 07:34 RBC 2.99 L (4.10-5.20) 10*6/uL Hgb 8.3 L (12.0-15.0) g/dL Hct 26.8 L (37.2-46.3) % MCHC 31.0 L (32.0-37.0) g/dL Plt Count (140-440) 10*3/uL Immature Gran # 0.28 H (0.00-0.04) 10*3/uL Lymphocytes # (Manual) (1.0-4.8) k/uL Metamyelocytes # (Man) (0) k/uL Nucleated RBCs (0-0) /100 WBC POC Glucose (mg/dL) (70-110) mg/dL Hemoglobin A1c (<=6.0) %
[2025-02-05] MEDS: FUROSEMIDE 20 MG TAB PO SCH (15:45)
[2025-02-05 16:29] LABS: Glucose,Whole Blood 231 mg/dL (70-110)
--- NOTE | 2025-02-05 17:34 | P.PN ---
Subjective Progress Note Date: 02/05/25 69-year-old female, history of multiple medical problems including asthma/COPD, hypertension, hyperlipidemia, diabetes mellitus, atrial fibrillation, breast cancer, among other things. The patient has a history of metastatic breast carcinoma, with osseous mets, and brain mets. The patient is followed by Dr. Yancey in medical oncology, and Dr. Gutiérrez, from radiation oncology. The patient was seen in the emergency department, for severe right-sided chest pain, with shortness of breath. She was found to have atrial fibrillation with RVR. -She is currently on 1 L of oxygen. She is getting saline at 20 cc an hour. She appears in no acute distress. No respiratory distress. She is resting comfortably in bed. -Current labs showed a white count of 4.8, hemoglobin 8.1, hematocrit 27, and a platelet count of 66,000. Sodium 133, potassium 4.4, chlorides 96, CO2 30, BUN 26, and creatinine 1.08. Glucose is 320. - Chest x-ray shows diffuse bilateral lung infiltrates. Objective - Vital Signs Vital signs: Vital Signs Temp 97.7 F 02/05/25 08:30 Pulse 96 02/05/25 09:12 Resp 20 02/05/25 08:30 BP 132/77 02/05/25 08:30 Pulse Ox 97 02/05/25 08:30 FiO2 Intake & Output 02/04/25 02/05/25 02/05/25 18:59 06:59 18:59 Intake Total 480 240 Output Total 1325 1200 1200 Balance -845 -1200 -960 Weight 81.5 kg Intake: Oral 480 240 Output: Urine 1325 1200 1200 Other: Voiding Method External Catheter External Catheter External Catheter # Voids 1 - Exam No acute distress, oriented 3. Currently on room air. HEENT examination is grossly unremarkable. Mucous membranes are moist. No oral lesions. Neck supple. Full range of motion. No adenopathy thyromegaly or neck vein distention. Cardiovascular examination reveals regular rhythm rate. S1-S2 normal. No S3 or S4. A soft systolic murmur is noted. Lungs reveal clear but diminished breath sounds. No distinct wheezes or rhonchi. Breath sounds are equal bilaterally. Abdomen soft bowel sounds are heard. No masses or tenderness. Extremities are intact. No cyanosis or clubbing. Edema is noted. Skin is without rash or lesion. Neurologic examination is brief but nonfocal. - Labs CBC & Chem 7: 02/05/25 07:34 02/05/25 07:34 Labs: Abnormal Lab Results - Last 24 Hours (Table) 02/04/25 02/04/25 02/04/25 Range/Units 06:55 11:40 16:33 RBC (4.10-5.20) 10*6/uL Hgb (12.0-15.0) g/dL Hct (37.2-46.3) % MCHC (32.0-37.0) g/dL Plt Count (140-440) 10*3/uL Immature Gran # (0.00-0.04) 10*3/uL Lymphocytes # (Manual) (1.0-4.8) k/uL Metamyelocytes # (Man) (0) k/uL Nucleated RBCs (0-0) /100 WBC Sodium (137-145) mmol/L Chloride (98-107) mmol/L BUN (7-17) mg/dL Glucose (74-99) mg/dL POC Glucose (mg/dL) 320 H 292 H (70-110) mg/dL Hemoglobin A1c 6.4 H (<=6.0) % Calcium (8.4-10.2) mg/dL 02/04/25 02/05/25 02/05/25 Range/Units 20:06 05:58 07:34 RBC 2.99 L (4.10-5.20) 10*6/uL Hgb 8.3 L (12.0-15.0) g/dL Hct 26.8 L (37.2-46.3) % MCHC 31.0 L (32.0-37.0) g/dL Plt Count 68 L (140-440) 10*3/uL Immature Gran # 0.28 H (0.00-0.04) 10*3/uL Lymphocytes # (Manual) 0.58 L (1.0-4.8) k/uL Metamyelocytes # (Man) 0.05 H (0) k/uL Nucleated RBCs 5 H (0-0) /100 WBC Sodium (137-145) mmol/L Chloride (98-107) mmol/L BUN (7-17) mg/dL Glucose (74-99) mg/dL POC Glucose (mg/dL) 277 H 164 H (70-110) mg/dL Hemoglobin A1c (<=6.0) % Calcium (8.4-10.2) mg/dL 02/05/25 02/05/25 Range/Units 07:34 11:16 RBC (4.10-5.20) 10*6/uL Hgb (12.0-15.0) g/dL Hct (37.2-46.3) % MCHC (32.0-37.0) g/dL Plt Count (140-440) 10*3/uL Immature Gran # (0.00-0.04) 10*3/uL Lymphocytes # (Manual) (1.0-4.8) k/uL Metamyelocytes # (Man) (0) k/uL Nucleated RBCs (0-0) /100 WBC Sodium 134 L (137-145) mmol/L Chloride 95 L (98-107) mmol/L BUN 29 H (7-17) mg/dL Glucose 134 H (74-99) mg/dL POC Glucose (mg/dL) 255 H (70-110) mg/dL Hemoglobin A1c (<=6.0) % Calcium 7.8 L (8.4-10.2) mg/dL Assessment and Plan Assessment: 1. Atrial fibrillation with RVR; currently rate controlled - Cardiology on board and recommending to increase metoprolol to 50 mg twice daily; remains anticoagulated with Eliquis 5 mg twice daily 2. Exacerbation of diastolic congestive heart failure; patient is currently on IV Lasix; cardiology recommending to transition to home dose of Lasix 60 mg twice daily - Continue to monitor strict JOSE's, daily weights, low-salt and fluid restricted diet - Last echocardiogram completed on 10/24/2024; repeat is not recommended 3. Chest pain secondary to pathological right rib fracture and diffuse osseous metastasis. 4. Acute hypoxemic respiratory failure; patient remains on O2; titrate or wean as able. 5. Mild intermittent asthma/COPD; acute exacerbation; patient remains on Solu- Medrol 60 mg IV every 6 hours; DuoNeb nebulizer treatments 4 times daily and as needed; patient remains on home inhaler therapy with Symbicort. 6. Breast cancer S/P right-sided mastectomy in 2021. Diffuse osseous metastasis. Possible brain metastasis. 7. Chronic pain, secondary to malignancy; continue with current pain regimen. 8. Hypertension; lisinopril 20 mg daily; metoprolol 50 mg twice daily; Lasix 60 mg twice daily. 9. History of hyperlipidemia; continue home dose of Lipitor 40 mg daily. 10. Insulin-dependent diabetes mellitus; patient is currently on Lantus 40 units subcu nightly; monitor Accu-Cheks before every meal and at bedtime with insulin sliding scale. 11. Gastroesophageal reflux disease; Protonix 40 mg daily. DVT prophylaxis; Eliquis CODE STATUS; full code
[2025-02-05 20:32] LABS: Glucose,Whole Blood 297 mg/dL (70-110)
[2025-02-05] MEDS: ONDANSETRON 4 MG/2 ML VIAL IVP PRN (23:39)
--- NOTE | 2025-02-06 01:39 | CONS ---
CONSULTATION REASON FOR CONSULTATION: Metastatic breast cancer with bone pain. HISTORY OF PRESENT ILLNESS: Steffanie Valentino is a 69-year-old female with a history of metastatic breast cancer. The patient recently was diagnosed in 2021. She did receive palliative radiation therapy in the past. The patient was seen on 08/27/2024 regarding recurrence of her breast cancer. She also did receive radiation therapy in November of this year. The patient was unable to complete her therapy. She was recently admitted to the hospital with increasing bone pain. She was seen by my associate, Dr. Arriaza yesterday. Additional imaging studies were performed. This does reveal diffuse metastatic disease involving the vast majority of the patient's bones. The patient is complaining of pain involving shoulders, upper back, and lower back. PAST MEDICAL HISTORY: 1. Atrial fibrillation. 2. Breast cancer. 3. COPD. 4. Diabetes. 5. GERD. 6. Hyperlipidemia. 7. Hypertension. PAST SURGICAL HISTORY: 1. Right breast cancer surgery. 2. Kidney stone surgery. 3. Appendectomy. 4. Cholecystectomy. 5. Joint replacement surgery. MEDICATIONS: 1. Fioricet. 2. Albuterol. 3. Fluticasone. 4. Morphine extended release. 5. Ondansetron. 6. Eliquis. 7. Atorvastatin. 8. Furosemide. 9. Lactulose. 10.Symbicort. 11.Insulin. 12.Protonix. 13.Norvasc. 14.Lisinopril. ALLERGIES: Gabapentin, ibuprofen, and pregabalin. SOCIAL HISTORY: [place] and she does stay with her . She denies significant history of tobacco or alcohol abuse. She lives with her . She has children who live outside [facility]. REVIEW OF SYSTEMS: Fourteen-point review of systems was reviewed and performed with the patient. This is contributory for upper back pain, lower back pain, reduced energy level, difficulty with ambulation. DIAGNOSTIC STUDIES: CT scan imaging reveals diffuse metastatic disease identified throughout the vast majority of the bony structures. PHYSICAL EXAMINATION: GENERAL: Ms. Valentino is an elderly female. She does not appear to be any distress. She is alert and oriented x3. She does appear to be in moderate discomfort. VITAL SIGNS: The patient has BP 138/80, pulse 78, respirations 18, and temperature is 36.4. HEAD: Atraumatic, normocephalic. EYES: PERRLA, EOMI. NECK: No palpable cervical, or supraclavicular lymphadenopathy. LUNGS: Clear to auscultation and percussion. HEART: Normal heart sounds. ABDOMEN: Benign. No palpable masses or organomegaly. EXTREMITIES: Full range of motion. No cyanosis, clubbing, or edema detected. NEUROLOGIC: Reveals cranial nerves 2 through 12 intact. Strength and sensation intact. Deep tendon reflexes intact. Plantar reflexes are downgoing. SKIN/INTEGUMENT: Reveals no lesions. PSYCHIATRIC: Evaluation reveals no mood disorders. IMPRESSION: Steffanie Valentino is a 69-year-old female with a history of metastatic breast cancer involving multiple bones, status post previous palliative radiation therapy. The patient otherwise has additional ongoing medical problems: 1. Atrial fibrillation. 2. Anemia. 3. Bone metastasis. 4. Arthritis. 5. Insulin-dependent diabetes. 6. Gastroesophageal reflux disease. PAIN SCALE EVALUATION: 09/28. PAIN CONTROL: Morphine sulfate extended release. DURATION OF THE INPATIENT HOSPITAL EVALUATION: Approximately 25 minutes. SMOKING CESSATION/SMOKING HISTORY: The patient is a nonsmoker. Does not require smoking cessation classes or counseling. PLAN: The patient and I discussed results of the recent lab work and testing. Therefore, the patient does have diffuse metastatic disease. She is having difficulty with medical compliance. She is having difficulty with her ability to continue with activities of daily living. The patient has difficulty ambulating. She has diffuse metastatic disease and she has had significant risk for fractures due to some of the lesions. I thought that in this setting, the patient may be more appropriate for hospice and she has had significant difficulty undergoing treatment including her radiation as well as medical therapy regarding her cancer. She is going to have a family meeting regarding possible involvement in hospice. At this point in time, I felt that would not be safe to move forward radiation due to her fragile structures related to her bones. I did review these images. Thank you again for allowing me to participate in the care of this very pleasant patient. MMODL / IJN: [id number] /
[2025-02-06 06:14] LABS: Glucose,Whole Blood 220 mg/dL (70-110)
[2025-02-06 06:19] LABS: Basophils # (A) 0.05 10*3/uL (0.00-0.10); Basophils % (A) 1.1 %; Eosinophils # (A) 0.01 10*3/uL (0.04-0.35); Eosinophils % (A) 0.2 %; HCT 27.2 % (37.2-46.3); HGB 8.4 g/dL (12.0-15.0); Lymphocytes # (A) 0.67 10*3/uL (0.90-5.00); Lymphocytes % (A) 14.2 %; MCH 27.8 pg (27.0-32.0); MCHC 30.9 g/dL (32.0-37.0); MCV 90.1 fL (80.0-97.0); Mean Platelet Volume 10.6 fL (9.5-12.2); Monocytes # (A) 0.33 10*3/uL (0.20-1.00); Neutrophils # (A) 3.25 10*3/uL (1.80-7.70); Neutrophils % (A) 68.8 %; RBC 3.02 10*6/uL (4.10-5.20); RDW 18.3 % (11.5-14.5); WBC 4.72 10*3/uL (4.50-10.00)
[2025-02-06 06:34] LABS: Platelet Count 67 10*3/uL (140-440)
[2025-02-06 06:53] LABS: African American GFR (CKD) 74 (>60 ml/min/1.73 sqM); Anion Gap 11 mmol/L; Blood Urea Nitrogen 34 mg/dL (7-17); Carbon Dioxide 29 mmol/L (22-30); Chloride 94 mmol/L (98-107); Glucose 188 mg/dL (74-99); Non-African American GFR(CKD) 64 (>60 ml/min/1.73 sqM); Potassium 4.3 mmol/L (3.5-5.1); Sodium 134 mmol/L (137-145)
--- NOTE | 2025-02-06 10:48 | MR ---
EXAMINATION TYPE: MR brain wo/w con DATE OF EXAM: 02/06/2025 10:20 AM COMPARISON: 12/02/2024 CLINICAL INDICATION: Female, 69 years old with history of hx brain mets, confusion, IV Contrast: cc (None if empty) TECHNIQUE: Multiplanar, multisequence images of the brain and brainstem is performed without and with IV contras t, utilizing mL intravenous . FINDINGS: There is been interval worsening in the degree of leptomeningeal enhancement in the right frontal and right temporal lobe and interval worsening of the masslike enhancement in the adjacent right frontal lobe. Previously the transverse dimension of the right frontal lobe mass was 12 mm and is now approx imately 23 mm. In addition, the vasogenic edema involving the right frontal and temporal lobes has in creased significantly in the interval and there is now slight mass effect with slight shift of the mi dline to the left. There is a stable remote lacunar infarct in the left cerebellum. Based on diffusion-weighted imaging, there is no acute ischemic event. Based on susceptibility weighted imaging, there is no hemorrhage. The intraorbital contents appear normal and symmetric. There is a stable large mucous retention cyst or polyp in the right maxillary sinus. IMPRESSION: Significant interval worsening in the metastatic disease involving the right frontal cortex and adjac ent leptomeninges as described above. There is now slight mass effect with slight shift of the midlin e structures to the left secondary to increasing vasogenic edema in the right frontal and temporal lo bes. [facility], , 02/06/2025 10:46 AM
--- NOTE | 2025-02-06 11:38 | P.PN ---
Subjective Progress Note Date: 02/06/25 Principal diagnosis: Congestive heart failure, atrial fibrillation. Patient is a 69-year-old female with past medical history significant for asthma/COPD, hypertension, hyperlipidemia, diabetes mellitus, atrial fibrillation, breast cancer with previous right mastectomy in 2021 followed by radiation and anastrozole. More recently, concerns of diffuse osseous metastasis, reportedly biopsied at [facility]. Abdominal CT from August, demonstrating diffuse osseous metastatic disease. Subacute fracture of the left rib 11. Brain MRI done 12/02/2024 showing 2 focal regions of vasogenic edema within the right frontal lobe and right anterior temporal lobe with adjacent abnormal enhancing focal dural thickening on a background of diffuse dural enhancement. Findings concerning for dural metastasis in the setting of known osseous metastasis. She is seeing Dr. Yancey from medical oncology and Dr. Gutiérrez from radiation oncology. Currently on Ibrance. Of note , patient also recently hospitalized October, with atrial fibrillation with RVR and CHF exacerbation. Echocardiogram done during this hospitalization estimated left ventricular ejection fraction of 55 to 60% moderate mitral regurgitation, mild pulmonary hypertension, and mild TR. She does take Lasix on outpatient basis and denies missing any doses. Patient was transferred from [facility] yesterday afternoon. Apparently last night developed severe right-sided chest pain with associated shortness of breath. On arrival to the outside facility she was found to be in atrial fibrillation with RVR. She does have history of patient is maintained on Eliquis. She did have a chest CT an giogram at outside facility reportedly negative for pulmonary embolism. Did demonstrate cardiomegaly, with moderate bilateral pleural effusions suggestive of congestive heart failure and/or volume overload. Right basilar consolidation favoring compressive atelectasis. Extensive diffuse sclerotic metastatic disease with more acute appearing minimally displaced anterior right rib fracture. Subacute healing posterior lateral left-sided rib fracture. Patient has since been placed on a Cardizem infusion for rate control of her atrial fibrillation. Also started on Lasix 60 mg twice daily. Labs including a CBC with a WBC count of 4.5, hemoglobin 8.5, platelets 70,000. CMP with a sodium 136, potassium 4.5, chloride 99, serum bicarb 26, BUN 11, creatinine 0.66, glucose 185. Calcium 8.9. ALP 640. AST 40, ALT 15. Troponins less than 0.012 x 3. NT proBN 3430. Patient currently being evaluated in the cardiac floor. She is resting comfortably on 2 L/min nasal cannula. Continues on Cardizem at 5 mg/h. Normal saline infusing at 75 mm/h. Her chief complaint at this time is right sided chest/rib pain. Rated 10/10 on a 10 point numerical scale. Worse with palpation, coughing, or even deep breathing. Denies any recent falls or trauma. Follow-up chest x-ray showing cardiomegaly, pulmonary vascular congestion, with bilateral pleural effusions, left greater than right left-sided associated atelectasis or infectious process. No identifiable pneumothoraces. She does report a history of heart failure. Denies missing any doses of Lasix. Does have some lower extremity pitting edema. Denies any heart palpitations, lightheadedness, syncopal events. Patient denies any sick contacts. Denies URI-like symptoms. Denies coughing. No wheezing. Denies any fevers or chills. Denies nausea, vomiting, diarrhea. Oral intake has been fair. Reportedly does have a history of asthma/COPD. She uses a Symbicort inhaler as well as as needed rescue inhaler at home, which have already been continued here. Progress note dated February 04, 2025. This is a 69-year-old female who was seen yesterday in consultation. Please see the note above. The patient has a history of multiple medical problems including asthma/COPD, hypertension, hyperlipidemia, diabetes mellitus, atrial fibrillation, breast cancer, among other things. The patient has a history of metastatic breast carcinoma, with osseous mets, and brain mets. The patient is followed by Dr. Yancey in medical oncology, and Dr. Gutiérrez, from radiation oncology. The patient was seen in the emergency department, for severe right- sided chest pain, with shortness of breath. She was found to have atrial fibrillation with RVR. The patient is seen today in room 368. She is currently on 1 L of oxygen. She is getting saline at 20 cc an hour. She appears in no acute distress. No respiratory distress. She is resting comfortably in bed. Current labs showed a white count of 4.8, hemoglobin 8.1, hematocrit 27, and a platelet count of 66,000. Sodium 133, potassium 4.4, chlorides 96, CO2 30, BUN 26, and creatinine 1.08. Glucose is 320. Chest x-ray shows diffuse bilateral lung infiltrates. Progress note dated February 05, 2025. 69-year-old female seen again in room 368. She is resting comfortably in bed. She is not receiving any oxygen. She is not on any IV fluids. She has no specific complaints today. The patient has a history of metastatic breast cancer, with osseous, and brain mets. She is followed by both radiation and medical oncology. White count is 4.8, hemoglobin 8.3, hematocrit 26.8, platelet count 68,000. Sodium 134, potassium 4.1, chloride 95, CO2 30, BUN 29, creatinine 0.93. Glucose 255. Calcium 7.8. CT scan shows redemonstration of extensive osseous metastasis, mild splenomegaly, nodular contour of the liver which could be consistent with cirrhosis, and moderate-sized bilateral pleural effusions. Progress note dated February 06, 2025. 69-year-old female seen today in room 368. She is on room air. She is not receiving any IV fluids. She is resting comfortably in bed. She has no particular complaints today. She has a history of metastatic breast cancer, with osseous and brain metastasis. Current labs include a white count of 4.7, hemoglobin 8.4, hematocrit 27.2, and a platelet count of 67,000. Sodium 134, potassium 4.3, chloride 94, CO2 29, BUN 34, creatinine 0.93. Glucose is 220. Calcium is 8. Brain MRI shows a significant interval worsening of the metastatic disease involving the right frontal cortex, and adjacent leptomeninges. There is now slight mass effect with slight shift of the midline structures to the left, secondary to increasing vasogenic edema in the right frontal and temporal lobes. Objective - Vital Signs Vital signs: Vital Signs Temp 97.9 F 02/05/25 19:55 Pulse 96 02/06/25 09:29 Resp 16 02/06/25 07:50 BP 138/93 02/06/25 07:50 Pulse Ox 93 L 02/06/25 07:50 FiO2 Intake & Output 02/05/25 02/06/25 02/06/25 18:59 06:59 18:59 Intake Total 1020 118 Output Total 2300 1275 Balance -1280 -1275 118 Weight 80 kg Intake: Oral 1020 118 Output: Urine 2300 1275 Other: Voiding Method External Catheter External Catheter External Catheter - Exam No acute distress, oriented 3. Currently on room air. HEENT examination is grossly unremarkable. Mucous membranes are moist. No oral lesions. Neck supple. Full range of motion. No adenopathy thyromegaly or neck vein distention. Cardiovascular examination reveals regular rhythm rate. S1-S2 normal. No S3 or S4. A soft systolic murmur is noted. Lungs reveal clear but diminished breath sounds. No distinct wheezes or rhonchi. Breath sounds are equal bilaterally. Abdomen soft bowel sounds are heard. No masses or tenderness. Extremities are intact. No cyanosis or clubbing. Edema is noted. Skin is without rash or lesion. Neurologic examination is brief but nonfocal. - Labs CBC & Chem 7: 02/06/25 05:02/06/25 05:27 Labs: Abnormal Lab Results - Last 24 Hours (Table) 02/03/25 02/05/25 02/05/25 Range/Units 06: 16:28 20:30 RBC (4.10-5.20) 10*6/uL Hgb (12.0-15.0) g/dL Hct (37.2-46.3) % MCHC (32.0-37.0) g/dL Plt Count (140-440) 10*3/uL Immature Gran # (0.00-0.04) 10*3/uL Lymphocytes # (0.90-5.00) 10*3/uL Eosinophils # (0.04-0.35) 10*3/uL Sodium (137-145) mmol/L Chloride (98-107) mmol/L BUN (7-17) mg/dL Glucose (74-99) mg/dL POC Glucose (mg/dL) 231 H 297 H (70-110) mg/dL Calcium (8.4-10.2) mg/dL RBC Folate 1,068 H (280 - 791) ng/mL 02/06/25 02/06/25 02/06/25 Range/Units 05: 05:27 06:12 RBC 3.02 L (4.10-5.20) 10*6/uL Hgb 8.4 L (12.0-15.0) g/dL Hct 27.2 L (37.2-46.3) % MCHC 30.9 L (32.0-37.0) g/dL Plt Count 67 L (140-440) 10*3/uL Immature Gran # 0.41 H (0.00-0.04) 10*3/uL Lymphocytes # 0.67 L (0.90-5.00) 10*3/uL Eosinophils # 0.01 L (0.04-0.35) 10*3/uL Sodium 134 L (137-145) mmol/L Chloride 94 L (98-107) mmol/L BUN 34 H (7-17) mg/dL Glucose 188 H (74-99) mg/dL POC Glucose (mg/dL) 220 H (70-110) mg/dL Calcium 8.0 L (8.4-10.2) mg/dL RBC Folate (280 - 791) ng/mL Assessment and Plan Assessment: Atrial fibrillation with RVR, resolved. Exacerbation of diastolic congestive heart failure. Chest pain secondary to pathological right rib fracture and diffuse osseous metastasis. Acute hypoxemic respiratory failure. Mild intermittent asthma/COPD. Bicytopenia. Breast cancer S/P right-sided mastectomy in 2021. Diffuse osseous metastasis. Multiple brain metastasis, with midline shift, and vasogenic edema. History of right total knee arthroplasty. Chronic pain, secondary to malignancy. Hypertension. History of hyperlipidemia. Insulin-dependent diabetes mellitus. Gastroesophageal reflux disease. Obesity, with a BMI of 36.6 kg/m. Plan: Plan dated February 04, 2025. The patient is seen today in room 368. As mentioned, she is on 1 L of oxygen. She is in no distress. No respiratory distress. She has no new complaints. She is getting saline at 20 cc an hour. Labs, x-rays, medications are reviewed. Will continue to follow the patient, make recommendations. Prognosis is g uarded. Dictation was produced using TDX software. Please excuse any grammatical, word or spelling errors. Plan dated February 05, 2025. Patient is seen today in room 368. She is currently on room air. No fluids. The patient has metastatic breast cancer, with osseous and brain metastasis. The patient's CODE STATUS needs to be addressed by the primary service. Labs, x-rays, medications are reviewed. Repeat CT scan is reviewed. Labs, x-rays and medications are reviewed. Prognosis is poor. Dictation was produced using TDX software. Please excuse any grammatical, word or spelling errors. Plan dated February 06, 2025. The patient is seen today in room 368. She is a 69-year-old female with a history of metastatic breast cancer. She has multiple osseous metastasis, and worsening metastasis to the brain. MRI of the brain, was just done, showing midline shift, as well as vasogenic edema. As mentioned above, CODE STATUS should be addressed by the primary service. Labs, x-rays, medications reviewed. We will continue to follow the patient, make recommendations. Prognosis is certainly very poor. Dictation was produced using [employer] software. P lease excuse any grammatical, word or spelling errors. Time with Patient: Less than 30
[2025-02-06 11:47] LABS: Glucose,Whole Blood 233 mg/dL (70-110)
--- NOTE | 2025-02-06 13:18 | P.PN ---
Subjective Progress Note Date: 02/06/25 Principal diagnosis: Metastatic breast cancer - Afebrile, no acute events - Appears to be less responsive on today's visit. She denies any pain at this time - She is currently oriented to self Objective - Vital Signs Vital signs: Vital Signs Temp 97.9 F 02/05/25 19:55 Pulse 90 02/06/25 12:21 Resp 16 02/06/25 07:50 BP 138/93 02/06/25 07:50 Pulse Ox 93 L 02/06/25 07:50 FiO2 Intake & Output 02/05/25 02/06/25 02/06/25 18:59 06:59 18:59 Intake Total 1020 118 Output Total 2300 1275 Balance -1280 -1275 118 Weight 80 kg Intake: Oral 1020 118 Output: Urine 2300 1275 Other: Voiding Method External Catheter External Catheter External Catheter - Constitutional Constitutional Comment(s): Weak, less conversive General appearance: Present: no acute distress - Respiratory Details: Nonlabored breathing - Cardiovascular Details: Warm and well-perfused - Gastrointestinal General gastrointestinal: Present: soft. Absent: tenderness - Integumentary Integumentary: Present: pale. Absent: rash - Psychiatric Psychiatric Comment(s): Alert and oriented x 1 - Labs CBC & Chem 7: 02/06/25 05:27 02/06/25 05:27 Labs: Abnormal Lab Results - Last 24 Hours (Table) 02/05/25 02/05/25 02/06/25 Range/Units 16:28 20:30 05:27 RBC 3.02 L (4.10-5.20) 10*6/uL Hgb 8.4 L (12.0-15.0) g/dL Hct 27.2 L (37.2-46.3) % MCHC 30.9 L (32.0-37.0) g/dL Plt Count 67 L (140-440) 10*3/uL Immature Gran # 0.41 H (0.00-0.04) 10*3/uL Lymphocytes # 0.67 L (0.90-5.00) 10*3/uL Eosinophils # 0.01 L (0.04-0.35) 10*3/uL Sodium (137-145) mmol/L Chloride (98-107) mmol/L BUN (7-17) mg/dL Glucose (74-99) mg/dL POC Glucose (mg/dL) 231 H 297 H (70-110) mg/dL Calcium (8.4-10.2) mg/dL 02/06/25 02/06/25 02/06/25 Range/Units 05:27 06:12 11:32 RBC (4.10-5.20) 10*6/uL Hgb (12.0-15.0) g/dL Hct (37.2-46.3) % MCHC (32.0-37.0) g/dL Plt Count (140-440) 10*3/uL Immature Gran # (0.00-0.04) 10*3/uL Lymphocytes # (0.90-5.00) 10*3/uL Eosinophils # (0.04-0.35) 10*3/uL Sodium 134 L (137-145) mmol/L Chloride 94 L (98-107) mmol/L BUN 34 H (7-17) mg/dL Glucose 188 H (74-99) mg/dL POC Glucose (mg/dL) 220 H 233 H (70-110) mg/dL Calcium 8.0 L (8.4-10.2) mg/dL Assessment and Plan (1) Malignant neoplasm of breast metastatic to brain Current Visit: Yes Status: Acute Code(s): C50.919 - MALIGNANT NEOPLASM OF UNSP SITE OF UNSPECIFIED FEMALE BREAST; C79.31 - SECONDARY MALIGNANT NEOPLASM OF BRAIN SNOMED Code(s): 93990145 (2) Anemia Current Visit: Yes Status: Acute Priority: Medium Code(s): D64.9 - ANEMIA, UNSPECIFIED SNOMED Code(s): 013979140 (3) Thrombocytopenia Current Visit: Yes Status: Acute Priority: Medium Code(s): D69.6 - THROMBOCYTOPENIA, UNSPECIFIED SNOMED Code(s): 921151957 Plan: Metastatic breast cancer: -Oncology history as dictated in the HPI -August 18, 2024, CT of the right knee reporting unusual pattern she is sclerosis and lucency about both distal femoral and proximal tibial components, similar to 03/10/2024 imaging. Areas of periprosthetic osseous scalloping/erosion both anteriorly and posteriorly at the femoral component is similar to prior study as well, etiology unclear. Sequela of chronic infection versus underlying osseous metastatic disease. There was an interval development of a nondisplaced periprosthetic fracture along the anterior aspect of the tibia. Nuclear medicine bone scan 08/21/2024 did show diffuse uptake within the appendicular skeleton corresponding to CT findings. -Prior CT AP reported diffuse osseous metastatic disease. No greater than 1 cm lymph nodes noted to suggest intra-abdominal metastatic disease. Subacute fracture of the left 11th rib. Nodular contour to liver, possible cirrhosis. -MRI brain showed brain mets. Previously treated with decadron -Bone biopsy on 11/19/24 at [facility], biopsy was positive for metastatic breast cancer,ER/FL+(92%,2%), HER2/CHRIS low (1+). -Completed RT to right knee/right shoulder during previous admit, however did not f/u outpt for brain RT -Repeat staging CT scans note diffuse osseous metastatic disease with brain MRI noting worsening brain metastasis with possible midline shift and vasogenic edema -She is currently already on high-dose steroids with methylprednisolone 60 mg IV every 6 hours -Per radiation oncology, she is not a candidate for palliative radiation as she would likely not derive any benefit -She appears to be less conversive on today's and is A&O x 1 -Due to progressive disease and declining performance status, I do believe she would best be served by hospice -We will arrange for goals of care discussion early next week as her lives in [place] and her son lives in [place]. I will attempt to contact later today -Continue IV methylprednisolone Pain, related to malignancy: -Knee and shoulder pain-2/2 mets -Continue pain medications ordered -Bowel regimen in place Anemia, thrombocytopenia: -Pancytopenia noted during admission in 08/2024. Pancytopenia workup at that time showed no MGUS, iron studies were most consistent with inflammation. -Cytopenias felt likely to be related to bone metastasis. Also possible component of cirrhosis noted on CT A/P -On admit, hgb 8.5, MCV 89.0, plt 70,000. Subsequent CBC showed hgb 7.1, plt 67,000 -No reported episodes of acute bleeding -S/p 1 unit PRBCs -Iron studies consistent with anemia of inflammation -As long as there is no acute bleeding episodes, hgb shows appropriate response to transfusion, and plt are > 50,000, pt can continue on anticoagulation -Continue to monitor CBC A-fib with RVR, CHF exacerbation: -Anticoagulated with Eliquis -Continues lasix -Cardiology following Kelly Cordova MD
--- NOTE | 2025-02-06 15:37 | P.EN ---
I was able to contact her Ed by phone. I did update him on current hospital course including results of brain MRI and staging CT scans. I did attempt to address CODE STATUS and bring up the possibility of hospice, but he stated "I have to go and get to work". When I asked him if there would be another time to talk, he noted "any day but Saturday". Moreover, he was upset that his daughter is listed as an emergency contact and would preferred that he is contacted alone and is working on getting his daughter evicted. We will have to readdress her current clinical course early next week.
[2025-02-06 17:02] LABS: Glucose,Whole Blood 203 mg/dL (70-110)
[2025-02-06 19:37] LABS: Glucose,Whole Blood 238 mg/dL (70-110)
--- NOTE | 2025-02-06 23:18 | P.PN ---
Subjective Progress Note Date: 02/06/25 69-year-old female, history of multiple medical problems including asthma/COPD, hypertension, hyperlipidemia, diabetes mellitus, atrial fibrillation, breast cancer, among other things. The patient has a history of metastatic breast carcinoma, with osseous mets, and brain mets. The patient is followed by Dr. Yancey in medical oncology, and Dr. Gutiérrez, from radiation oncology. The patient was seen in the emergency department, for severe right-sided chest pain, with shortness of breath. She was found to have atrial fibrillation with RVR. -She is currently on 1 L of oxygen. She is getting saline at 20 cc an hour. She appears in no acute distress. No respiratory distress. She is resting comfortably in bed. -Current labs showed a white count of 4.8, hemoglobin 8.1, hematocrit 27, and a platelet count of 66,000. Sodium 133, potassium 4.4, chlorides 96, CO2 30, BUN 26, and creatinine 1.08. Glucose is 320. - Chest x-ray shows diffuse bilateral lung infiltrates. 02/06/2025 Patient seen and evaluated in room at bedside; She is resting comfortably in bed. She has no particular complaints today. She has a history of metastatic breast cancer, with osseous and brain metastasis. Vital signs reviewed and stable with temperature 97.9, pulse 96, respirations 16 and blood pressure 138/93; O2 saturation 93% Blood work is reviewed white count of 4.7, hemoglobin 8.4, hematocrit 27.2, and a platelet count of 67,000. Sodium 134, potassium 4.3, chloride 94, CO2 29, BUN 34, creatinine 0.93. Glucose is 220. Calcium is 8. - Brain MRI shows a significant interval worsening of the metastatic disease involving the right frontal cortex, and adjacent leptomeninges. There is now slight mass effect with slight shift of the midline structures to the left, secondary to increasing vasogenic edema in the right frontal and temporal lobes. Prognosis is poor Objective - Vital Signs Vital signs: Vital Signs Temp 97.9 F 02/05/25 19:55 Pulse 96 02/06/25 09:29 Resp 16 02/06/25 07:50 BP 138/93 02/06/25 07:50 Pulse Ox 93 L 02/06/25 07:50 FiO2 Intake & Output 02/05/25 02/06/25 02/06/25 18:59 06:59 18:59 Intake Total 1020 118 Output Total 2300 1275 Balance -1280 -1275 118 Weight 80 kg Intake: Oral 1020 118 Output: Urine 2300 1275 Other: Voiding Method External Catheter External Catheter - Exam No acute distress, oriented 3. Currently on room air. HEENT examination is grossly unremarkable. Mucous membranes are moist. No oral lesions. Neck supple. Full range of motion. No adenopathy thyromegaly or neck vein distention. Cardiovascular examination reveals regular rhythm rate. S1-S2 normal. No S3 or S4. A soft systolic murmur is noted. Lungs reveal clear but diminished breath sounds. No distinct wheezes or rhonchi. Breath sounds are equal bilaterally. Abdomen soft bowel sounds are heard. No masses or tenderness. Extremities are intact. No cyanosis or clubbing. Edema is noted. Skin is without rash or lesion. Neurologic examination is brief but nonfocal. - Labs CBC & Chem 7: 02/06/25 05:27 02/06/25 05:27 Labs: Abnormal Lab Results - Last 24 Hours (Table) 02/03/25 02/05/25 02/05/25 Range/Units 06:24 07:34 11:16 RBC (4.10-5.20) 10*6/uL Hgb (12.0-15.0) g/dL Hct (37.2-46.3) % MCHC (32.0-37.0) g/dL Plt Count 68 L (140-440) 10*3/uL Immature Gran # (0.00-0.04) 10*3/uL Lymphocytes # (0.90-5.00) 10*3/uL Lymphocytes # (Manual) 0.58 L (1.0-4.8) k/uL Eosinophils # (0.04-0.35) 10*3/uL Metamyelocytes # (Man) 0.05 H (0) k/uL Nucleated RBCs 5 H (0-0) /100 WBC Sodium (137-145) mmol/L Chloride (98-107) mmol/L BUN (7-17) mg/dL Glucose (74-99) mg/dL POC Glucose (mg/dL) 255 H (70-110) mg/dL Calcium (8.4-10.2) mg/dL RBC Folate 1,068 H (280 - 791) ng/mL 06/20/25 06/20/25 06/21/25 Range/Units 16:28 20:30 05:27 RBC 3.02 L (4.10-5.20) 10*6/uL Hgb 8.4 L (12.0-15.0) g/dL Hct 27.2 L (37.2-46.3) % MCHC 30.9 L (32.0-37.0) g/dL Plt Count 67 L (140-440) 10*3/uL Immature Gran # 0.41 H (0.00-0.04) 10*3/uL Lymphocytes # 0.67 L (0.90-5.00) 10*3/uL Lymphocytes # (Manual) (1.0-4.8) k/uL Eosinophils # 0.01 L (0.04-0.35) 10*3/uL Metamyelocytes # (Man) (0) k/uL Nucleated RBCs (0-0) /100 WBC Sodium (137-145) mmol/L Chloride (98-107) mmol/L BUN (7-17) mg/dL Glucose (74-99) mg/dL POC Glucose (mg/dL) 231 H 297 H (70-110) mg/dL Calcium (8.4-10.2) mg/dL RBC Folate (280 - 791) ng/mL 02/06/25 02/06/25 Range/Units 05:27 06:12 RBC (4.10-5.20) 10*6/uL Hgb (12.0-15.0) g/dL Hct (37.2-46.3) % MCHC (32.0-37.0) g/dL Plt Count (140-440) 10*3/uL Immature Gran # (0.00-0.04) 10*3/uL Lymphocytes # (0.90-5.00) 10*3/uL Lymphocytes # (Manual) (1.0-4.8) k/uL Eosinophils # (0.04-0.35) 10*3/uL Metamyelocytes # (Man) (0) k/uL Nucleated RBCs (0-0) /100 WBC Sodium 134 L (137-145) mmol/L Chloride 94 L (98-107) mmol/L BUN 34 H (7-17) mg/dL Glucose 188 H (74-99) mg/dL POC Glucose (mg/dL) 220 H (70-110) mg/dL Calcium 8.0 L (8.4-10.2) mg/dL RBC Folate (280 - 791) ng/mL Assessment and Plan Assessment: 1. Atrial fibrillation with RVR; currently rate controlled - Cardiology on board and recommending to increase metoprolol to 50 mg twice daily; remains anticoagulated with Eliquis 5 mg twice daily 2. Exacerbation of diastolic congestive heart failure; patient is currently on IV Lasix; cardiology recommending to transition to home dose of Lasix 60 mg twice daily - Continue to monitor strict JOSE's, daily weights, low-salt and fluid restricted diet - Last echocardiogram completed on 10/24/2024; repeat is not recommended 3. Chest pain secondary to pathological right rib fracture and diffuse osseous metastasis. 4. Acute hypoxemic respiratory failure; patient remains on O2; titrate or wean as able. 5. Mild intermittent asthma/COPD; acute exacerbation; patient remains on Solu- Medrol 60 mg IV every 6 hours; DuoNeb nebulizer treatments 4 times daily and as needed; patient remains on home inhaler therapy with Symbicort. 6. Breast cancer S/P right-sided mastectomy in 2021. Diffuse osseous metastasis. Possible brain metastasis. 7. Chronic pain, secondary to malignancy; continue with current pain regimen. 8. Hypertension; lisinopril 20 mg daily; metoprolol 50 mg twice daily; Lasix 60 mg twice daily. 9. History of hyperlipidemia; continue home dose of Lipitor 40 mg daily. 10. Insulin-dependent diabetes mellitus; patient is currently on Lantus 40 units subcu nightly; monitor Accu-Cheks before every meal and at bedtime with insulin sliding scale. 11. Gastroesophageal reflux disease; Protonix 40 mg daily. DVT prophylaxis; Eliquis CODE STATUS; full code
[2025-02-07 06:04] LABS: Glucose,Whole Blood 173 mg/dL (70-110)
[2025-02-07 08:13] LABS: HCT 29.2 % (37.2-46.3); HGB 8.9 g/dL (12.0-15.0); MCH 27.8 pg (27.0-32.0); MCHC 30.5 g/dL (32.0-37.0); MCV 91.3 fL (80.0-97.0); Mean Platelet Volume 10.6 fL (9.5-12.2); RDW 18.2 % (11.5-14.5)
[2025-02-07 08:26] LABS: Platelet Count 62 10*3/uL (140-440)
[2025-02-07 08:33] LABS: African American GFR (CKD) 67 (>60 ml/min/1.73 sqM); Anion Gap 10 mmol/L; Blood Urea Nitrogen 35 mg/dL (7-17); Calcium 7.5 mg/dL (8.4-10.2); Carbon Dioxide 36 mmol/L (22-30); Chloride 92 mmol/L (98-107); Glucose 139 mg/dL (74-99); Non-African American GFR(CKD) 58 (>60 ml/min/1.73 sqM); Sodium 138 mmol/L (137-145)
[2025-02-07 09:11] LABS: Eosinophils # (M) 0.04 k/uL (0-0.7); Lymphocytes # (M) 1.12 k/uL (1.0-4.8); Monocytes # (M) 0.09 k/uL (0-1.0); Neutrophils # (M) 3.26 k/uL (1.3-7.7); Neutrophils % (M) 73 %; Nucleated Red Blood Cells 7 /100 WBC (0-0); Total Cells Counted 200; WBC 4.47 10*3/uL (4.50-10.00)
[2025-02-07 12:09] LABS: Glucose,Whole Blood 229 mg/dL (70-110)
--- NOTE | 2025-02-07 17:04 | P.PN ---
Subjective Progress Note Date: 02/07/25 69-year-old female, history of multiple medical problems including asthma/COPD, hypertension, hyperlipidemia, diabetes mellitus, atrial fibrillation, breast cancer, among other things. The patient has a history of metastatic breast carcinoma, with osseous mets, and brain mets. The patient is followed by Dr. Yancey in medical oncology, and Dr. Gutiérrez, from radiation oncology. The patient was seen in the emergency department, for severe right-sided chest pain, with shortness of breath. She was found to have atrial fibrillation with RVR. -She is currently on 1 L of oxygen. She is getting saline at 20 cc an hour. She appears in no acute distress. No respiratory distress. She is resting comfortably in bed. -Current labs showed a white count of 4.8, hemoglobin 8.1, hematocrit 27, and a platelet count of 66,000. Sodium 133, potassium 4.4, chlorides 96, CO2 30, BUN 26, and creatinine 1.08. Glucose is 320. - Chest x-ray shows diffuse bilateral lung infiltrates. 02/06/2025 Patient seen and evaluated in room at bedside; She is resting comfortably in bed. She has no particular complaints today. She has a history of metastatic breast cancer, with osseous and brain metastasis. Vital signs reviewed and stable with temperature 97.9, pulse 96, respirations 16 and blood pressure 138/93; O2 saturation 93% Blood work is reviewed white count of 4.7, hemoglobin 8.4, hematocrit 27.2, and a platelet count of 67,000. Sodium 134, potassium 4.3, chloride 94, CO2 29, BUN 34, creatinine 0.93. Glucose is 220. Calcium is 8. - Brain MRI shows a significant interval worsening of the metastatic disease involving the right frontal cortex, and adjacent leptomeninges. There is now slight mass effect with slight shift of the midline structures to the left, secondary to increasing vasogenic edema in the right frontal and temporal lobes. Prognosis is poor 02/07/2025 Patient is seen and evaluated sitting up in bedside chair; complains of nausea Vital signs are reviewed, patient remains afebrile, pulse 78, respirations 16 and blood pressure 139/80 with O2 saturation 100% on 2 L - Patient has MRI of the brain completed which revealed same to rule worsening of metastatic disease involving right frontal cortex and adjustment leptomeninges -- Oncology on board; attempt was made to discuss CODE STATUS and further plan of care with patient's ; he is not available for discussion through the weekend - We will continue with current management - CODE STATUS and plan of care to be discussed with patient's family Objective - Vital Signs Vital signs: Vital Signs Temp 97.8 F 02/07/25 07:35 Pulse 76 02/07/25 08:53 Resp 16 02/07/25 07:35 BP 157/89 02/07/25 07:35 Pulse Ox 100 02/07/25 08:38 FiO2 Intake & Output 02/06/25 02/07/25 02/07/25 18:59 06:59 18:59 Intake Total 354 118 Output Total 1250 1400 600 Balance -121 -8640 -688 Weight 81 kg Intake: Oral 354 118 Output: Urine 1250 1400 600 Other: Voiding Method External Catheter External Catheter External Catheter - Exam No acute distress, oriented 3. Currently on room air. HEENT examination is grossly unremarkable. Mucous membranes are moist. No oral lesions. Neck supple. Full range of motion. No adenopathy thyromegaly or neck vein distention. Cardiovascular examination reveals regular rhythm rate. S1-S2 normal. No S3 or S4. A soft systolic murmur is noted. Lungs reveal clear but diminished breath sounds. No distinct wheezes or rhonchi. Breath sounds are equal bilaterally. Abdomen soft bowel sounds are heard. No masses or tenderness. Extremities are intact. No cyanosis or clubbing. Edema is noted. Skin is without rash or lesion. Neurologic examination is brief but nonfocal. - Labs CBC & Chem 7: 02/07/25 06:45 02/07/25 06:45 Labs: Abnormal Lab Results - Last 24 Hours (Table) 02/06/25 02/06/25 02/06/25 Range/Units 11:32 16:43 19:35 WBC (4.50-10.00) 10*3/uL RBC (4.10-5.20) 10*6/uL Hgb (12.0-15.0) g/dL Hct (37.2-46.3) % MCHC (32.0-37.0) g/dL Plt Count (140-440) 10*3/uL Immature Gran # (0.00-0.04) 10*3/uL Nucleated RBCs (0-0) /100 WBC Chloride (98-107) mmol/L Carbon Dioxide (22-30) mmol/L BUN (7-17) mg/dL Glucose (74-99) mg/dL POC Glucose (mg/dL) 233 H 203 H 238 H (70-110) mg/dL Calcium (8.4-10.2) mg/dL 02/07/25 02/07/25 02/07/25 Range/Units 06:03 06:45 06:45 WBC 4.47 L (4.50-10.00) 10*3/uL RBC 3.20 L (4.10-5.20) 10*6/uL Hgb 8.9 L (12.0-15.0) g/dL Hct 29.2 L (37.2-46.3) % MCHC 30.5 L (32.0-37.0) g/dL Plt Count 62 L (140-440) 10*3/uL Immature Gran # 0.54 H (0.00-0.04) 10*3/uL Nucleated RBCs 7 H (0-0) /100 WBC Chloride 92 L (98-107) mmol/L Carbon Dioxide 36 H (22-30) mmol/L BUN 35 H (7-17) mg/dL Glucose 139 H (74-99) mg/dL POC Glucose (mg/dL) 173 H (70-110) mg/dL Calcium 7.5 L (8.4-10.2) mg/dL Assessment and Plan Assessment: 1. Atrial fibrillation with RVR; currently rate controlled - Cardiology on board and recommending to increase metoprolol to 50 mg twice daily; remains anticoagulated with Eliquis 5 mg twice daily 2. Exacerbation of diastolic congestive heart failure; patient is currently on IV Lasix; cardiology recommending to transition to home dose of Lasix 60 mg twice daily - Continue to monitor strict JOES's, daily weights, low-salt and fluid restricted diet - Last echocardiogram completed on 10/24/2024; repeat is not recommended 3. Chest pain secondary to pathological right rib fracture and diffuse osseous metastasis. 4. Acute hypoxemic respiratory failure; patient remains on O2; titrate or wean as able. 5. Mild intermittent asthma/COPD; acute exacerbation; patient remains on Solu- Medrol 60 mg IV every 6 hours; DuoNeb nebulizer treatments 4 times daily and as needed; patient remains on home inhaler therapy with Symbicort. 6. Breast cancer S/P right-sided mastectomy in 2021. Diffuse osseous metastasis. Possible brain metastasis. 7. Chronic pain, secondary to malignancy; continue with current pain regimen. 8. Hypertension; lisinopril 20 mg daily; metoprolol 50 mg twice daily; Lasix 60 mg twice daily. 9. History of hyperlipidemia; continue home dose of Lipitor 40 mg daily. 10. Insulin-dependent diabetes mellitus; patient is currently on Lantus 40 units subcu nightly; monitor Accu-Cheks before every meal and at bedtime with insulin sliding scale. 11. Gastroesophageal reflux disease; Protonix 40 mg daily. DVT prophylaxis; Eliquis CODE STATUS; full code
[2025-02-07 17:09] LABS: Glucose,Whole Blood 237 mg/dL (70-110)
[2025-02-07 19:52] LABS: Glucose,Whole Blood 241 mg/dL (70-110)
[2025-02-08 05:49] LABS: Glucose,Whole Blood 183 mg/dL (70-110)
--- NOTE | 2025-02-08 09:56 | P.PN ---
Subjective 69-year-old female, history of multiple medical problems including asthma/COPD, hypertension, hyperlipidemia, diabetes mellitus, atrial fibrillation, breast cancer, among other things. The patient has a history of metastatic breast carcinoma, with osseous mets, and brain mets. The patient is followed by Dr. Yancey in medical oncology, and Dr. Gutiérrez, from radiation oncology. The patient was seen in the emergency department, for severe right-sided chest pain, with shortness of breath. She was found to have atrial fibrillation with RVR. -She is currently on 1 L of oxygen. She is getting saline at 20 cc an hour. She appears in no acute distress. No respiratory distress. She is resting comfortably in bed. -Current labs showed a white count of 4.8, hemoglobin 8.1, hematocrit 27, and a platelet count of 66,000. Sodium 133, potassium 4.4, chlorides 96, CO2 30, BUN 26, and creatinine 1.08. Glucose is 320. - Chest x-ray shows diffuse bilateral lung infiltrates. 02/06/2025 Patient seen and evaluated in room at bedside; She is resting comfortably in bed. She has no particular complaints today. She has a history of metastatic breast cancer, with osseous and brain metastasis. Vital signs reviewed and stable with temperature 97.9, pulse 96, respirations 16 and blood pressure 138/93; O2 saturation 93% Blood work is reviewed white count of 4.7, hemoglobin 8.4, hematocrit 27.2, and a platelet count of 67,000. Sodium 134, potassium 4.3, chloride 94, CO2 29, BUN 34, creatinine 0.93. Glucose is 220. Calcium is 8. - Brain MRI shows a significant interval worsening of the metastatic disease involving the right frontal cortex, and adjacent leptomeninges. There is now slight mass effect with slight shift of the midline structures to the left, secondary to increasing vasogenic edema in the right frontal and temporal lobes. Prognosis is poor 02/07/2025 Patient is seen and evaluated sitting up in bedside chair; complains of nausea Vital signs are reviewed, patient remains afebrile, pulse 78, respirations 16 and blood pressure 139/80 with O2 saturation 100% on 2 L - Patient has MRI of the brain completed which revealed same to rule worsening of metastatic disease involving right frontal cortex and adjustment leptomeninges -- Oncology on board; attempt was made to discuss CODE STATUS and further plan of care with patient's ; he is not available for discussion through the weekend - We will continue with current management - CODE STATUS and plan of care to be discussed with patient's family 02/08 This is a pleasant 69 years old female with metastatic breast cancer brain and diffuse osseous metastasis. Presents with A-fib and RVR. Also patient has pancytopenia MRI of the brain showing metastatic disease with midline shift and vasogenic edema. Patient awake and she knows she is not probably Major and does not near but she is disoriented about the rest. She has some insight about her illness, however she does not look has capacity make medical decision Although she is able to eat by herself and she moves little bit from the bed to the commode. She is obese. She is not in distress due to pain. No specific complaint Hematology/oncology team yesterday tried to talk to the family about possible hospice with the which is still pending. Objective - Vital Signs Vital signs: Vital Signs Temp 97.4 F L 02/08/25 07:58 Pulse 96 02/08/25 08:18 Resp 18 02/08/25 07:58 BP 155/88 02/08/25 07:58 Pulse Ox 98 02/08/25 08:07 FiO2 Intake & Output 02/07/25 02/08/25 02/08/25 18:59 06:59 18:59 Intake Total 536 118 Output Total 1500 1350 600 Balance -964 -1350 -482 Weight 71 kg Intake: Oral 536 118 Output: Urine 1500 1350 600 Other: Voiding Method External Catheter External Catheter External Catheter - Exam -GENERAL: The patient is alert and oriented x1-2, confused, not in any acute dis tress. Well developed, well nourished. Obese HEENT: Pupils are round and equally reacting to light. EOMI. No scleral icterus. No conjunctival pallor. Normocephalic, atraumatic. No pharyngeal erythema. No thyromegaly. CARDIOVASCULAR: S1 and S2 present. No murmurs, rubs, or gallops. PULMONARY: Chest is clear to auscultation, no wheezing , no crackles. ABDOMEN: Soft, nontender, nondistended, normoactive bowel sounds. No palpable organomegaly. MUSCULOSKELETAL: No joint swelling or deformity. EXTREMITIES: No cyanosis, clubbing, or pedal edema. NEUROLOGICAL: Gross neurological examination did not reveal any focal deficits. SKIN: No rashes. no petechiae. - Labs CBC & Chem 7: 02/07/25 06:45 02/07/25 06:45 Labs: Abnormal Lab Results - Last 24 Hours (Table) 02/07/25 02/07/25 02/07/25 Range/Units 11:41 16:52 19:51 POC Glucose (mg/dL) 229 H 237 H 241 H (70-110) mg/dL 02/08/25 Range/Units 05:47 POC Glucose (mg/dL) 183 H (70-110) mg/dL Assessment and Plan Assessment: 1. Atrial fibrillation with RVR; currently rate controlled - Cardiology on board and recommending to increase metoprolol to 50 mg twice daily; remains anticoagulated with Eliquis 5 mg twice daily 2. Exacerbation of diastolic congestive heart failure; patient is currently on IV Lasix; cardiology recommending to transition to home dose of Lasix 60 mg twice daily - Continue to monitor strict JOSE's, daily weights, low-salt and fluid restricted diet - Last echocardiogram completed on 10/24/2024; repeat is not recommended - currently she is almost euvolemic 3. Chest pain secondary to pathological right rib fracture and diffuse osseous metastasis. 4. Acute hypoxemic respiratory failure; patient remains on O2; titrate or wean as able. 5. Mild intermittent asthma/COPD; acute exacerbation; patient remains on Solu- Medrol 60 mg IV every 6 hours; DuoNeb nebulizer treatments 4 times daily and as needed; patient remains on home inhaler therapy with Symbicort. 6. Breast cancer S/P right-sided mastectomy in 2021. Diffuse osseous metastasis. with brain metastasis.mri showing midline shift and vasogenic edema hematology and oncology team are trying to talk to about possible hospice 7. Chronic pain, secondary to malignancy; continue with current pain regimen. 8. Hypertension; lisinopril 20 mg daily; metoprolol 50 mg twice daily; Lasix 60 mg twice daily. 9. History of hyperlipidemia; continue home dose of Lipitor 40 mg daily. 10. Insulin-dependent diabetes mellitus; patient is currently on Lantus 40 units subcu nightly; monitor Accu-Cheks before every meal and at bedtime with insulin sliding scale. 11. Gastroesophageal reflux disease; Protonix 40 mg daily. DVT prophylaxis; Eliquis CODE STATUS; full code
[2025-02-08 11:20] LABS: Glucose,Whole Blood 191 mg/dL (70-110)
[2025-02-08 16:08] LABS: Glucose,Whole Blood 227 mg/dL (70-110)
--- NOTE | 2025-02-08 18:25 | P.PN ---
Subjective Progress Note Date: 02/08/25 Pt in bedside chair, remains lethargic. Pt is A&Ox2. Reporting right chest wall pain, but states pain is controlled on current regimen Objective - Vital Signs Vital signs: Vital Signs Temp 97.4 F L 02/08/25 07:58 Pulse 95 02/08/25 11:05 Resp 16 02/08/25 11:05 BP 142/84 02/08/25 11:05 Pulse Ox 100 02/08/25 11:05 FiO2 Intake & Output 02/07/25 02/08/25 02/08/25 18:59 06:59 18:59 Intake Total 536 118 Output Total 1500 1350 600 Balance -557 -7326 -110 Weight 71 kg Intake: Oral 536 118 Output: Urine 1500 1350 600 Other: Voiding Method External Catheter External Catheter External Catheter - Constitutional General appearance: Present: no acute distress, obese - EENT Eyes: Present: anicteric sclerae, EOMI ENT: Present: hearing grossly normal - Respiratory Details: breathing is even and unlabored - Cardiovascular Details: skin warm and dry - Integumentary Integumentary: Absent: cyanotic - Neurologic Neurologic Comment(s): lethargic - Musculoskeletal Musculoskeletal: Present: generalized weakness - Labs CBC & Chem 7: 02/07/25 06:45 02/07/25 06:45 Labs: Abnormal Lab Results - Last 24 Hours (Table) 02/07/25 02/07/25 02/08/25 Range/Units 16:52 19:51 05:47 POC Glucose (mg/dL) 237 H 241 H 183 H (70-110) mg/dL 02/08/25 Range/Units 11:17 POC Glucose (mg/dL) 191 H (70-110) mg/dL Assessment and Plan (1) Anemia Current Visit: Yes Status: Acute Priority: Medium Code(s): D64.9 - ANEMIA, UNSPECIFIED SNOMED Code(s): 424800497 (2) Thrombocytopenia Current Visit: Yes Status: Acute Priority: Medium Code(s): D69.6 - THROMBOCYTOPENIA, UNSPECIFIED SNOMED Code(s): 545765794 (3) Acute exacerbation of chronic obstructive pulmonary disease (COPD) Current Visit: Yes Status: Acute Priority: High Code(s): J44.1 - CHRONIC OBSTRUCTIVE PULMONARY DISEASE W (ACUTE) EXACERBATION SNOMED Code(s): 318324852 (4) Atrial fibrillation with rapid ventricular response Current Visit: Yes Status: Acute Priority: High Code(s): I48.91 - UNSPECIFIED ATRIAL FIBRILLATION SNOMED Code(s): 800689615523503 (5) Atypical chest pain Current Visit: Yes Status: Acute Priority: High Code(s): R07.89 - OTHER CHEST PAIN SNOMED Code(s): 975697934 (6) CHF (congestive heart failure) Current Visit: Yes Status: Acute Priority: High Code(s): I50.9 - HEART FAILURE, UNSPECIFIED SNOMED Code(s): 57994500 (7) Breast cancer Current Visit: No Status: Acute Priority: High Code(s): C50.919 - MALIGNANT NEOPLASM OF UNSP SITE OF UNSPECIFIED FEMALE BREAST SNOMED Code(s): 894465565 Plan: Metastatic breast cancer: -Oncology history as dictated in the HPI -August 18, 2024, CT of the right knee reporting unusual pattern she is sclerosis and lucency about both distal femoral and proximal tibial components, similar to 03/10/2024 imaging. Areas of periprosthetic osseous scallopi ng/erosion both anteriorly and posteriorly at the femoral component is similar to prior study as well, etiology unclear. Sequela of chronic infection versus underlying osseous metastatic disease. There was an interval development of a nondisplaced periprosthetic fracture along the anterior aspect of the tibia. Nuclear medicine bone scan 08/21/2024 did show diffuse uptake within the appendicular skeleton corresponding to CT findings. -Prior CT AP reported diffuse osseous metastatic disease. No greater than 1 cm lymph nodes noted to suggest intra-abdominal metastatic disease. Subacute fracture of the left 11th rib. Nodular contour to liver, possible cirrhosis. -MRI brain showed brain mets. Previously treated with decadron -Bone biopsy on 11/19/24 at [facility], biopsy was positive for metastatic breast cancer,ER/[place]+(92%,2%), HER2/CHRIS low (1+). -Completed RT to right knee/right shoulder during previous admit, however did not f/u outpt for brain RT -Repeat staging CT scans note diffuse osseous metastatic disease with brain MRI noting worsening brain metastasis with possible midline shift and vasogenic edema -She is currently already on high-dose steroids with methylprednisolone 60 mg IV every 6 hours -Per radiation oncology, she is not a candidate for palliative radiation as she would likely not derive any benefit -Due to progressive disease and declining performance status, I do believe she would best be served by hospice -Nursing spoke with spouse, will plan to meet with and pt Saturday to have goals of care conversation -Continue IV methylprednisolone Pain, related to malignancy: -Knee and shoulder pain-2/2 mets -Continue pain medications ordered -Bowel regimen in place Anemia, thrombocytopenia: -Pancytopenia noted during admission in 08/2024. Pancytopenia workup at that time showed no MGUS, iron studies were most consistent with inflammation. -Cytopenias felt likely to be related to bone metastasis. Also possible component of cirrhosis noted on CT A/P -On admit, hgb 8.5, MCV 89.0, plt 70,000. Subsequent CBC showed hgb 7.1, plt 67,000 -No reported episodes of acute bleeding -S/p 1 unit PRBCs -Iron studies consistent with anemia of inflammation -As long as there is no acute bleeding episodes, hgb shows appropriate response to transfusion, and plt are > 50,000, pt can continue on anticoagulation -Continue to monitor CBC A-fib with RVR, CHF exacerbation: -Anticoagulated with Eliquis -Continues lasix -Cardiology following
[2025-02-08 19:52] LABS: Glucose,Whole Blood 254 mg/dL (70-110)
[2025-02-09 05:59] LABS: Glucose,Whole Blood 184 mg/dL (70-110)
[2025-02-09 08:01] VITALS: BMI 29.0
[2025-02-09 08:57] LABS: Basophils # (A) 0.06 10*3/uL (0.00-0.10); Basophils % (A) 1.1 %; Eosinophils # (A) 0.01 10*3/uL (0.04-0.35); Eosinophils % (A) 0.2 %; HCT 31.9 % (37.2-46.3); HGB 9.9 g/dL (12.0-15.0); Lymphocytes # (A) 0.55 10*3/uL (0.90-5.00); Lymphocytes % (A) 10.4 %; MCH 27.9 pg (27.0-32.0); MCV 89.9 fL (80.0-97.0); Mean Platelet Volume 9.1 fL (9.5-12.2); Monocytes # (A) 0.51 10*3/uL (0.20-1.00); Monocytes % (A) 9.7 %; Neutrophils # (A) 3.47 10*3/uL (1.80-7.70); Neutrophils % (A) 65.9 %; RBC 3.55 10*6/uL (4.10-5.20); RDW 18.2 % (11.5-14.5); WBC 5.27 10*3/uL (4.50-10.00)
[2025-02-09 09:27] LABS: Platelet Count 57 10*3/uL (140-440)
--- NOTE | 2025-02-09 09:35 | P.PN ---
Subjective 69-year-old female, history of multiple medical problems including asthma/COPD, hypertension, hyperlipidemia, diabetes mellitus, atrial fibrillation, breast cancer, among other things. The patient has a history of metastatic breast carcinoma, with osseous mets, and brain mets. The patient is followed by Dr. Yancey in medical oncology, and Dr. Gutiérrez, from radiation oncology. The patient was seen in the emergency department, for severe right-sided chest pain, with shortness of breath. She was found to have atrial fibrillation with RVR. -She is currently on 1 L of oxygen. She is getting saline at 20 cc an hour. She appears in no acute distress. No respiratory distress. She is resting comfortably in bed. -Current labs showed a white count of 4.8, hemoglobin 8.1, hematocrit 27, and a platelet count of 66,000. Sodium 133, potassium 4.4, chlorides 96, CO2 30, BUN 26, and creatinine 1.08. Glucose is 320. - Chest x-ray shows diffuse bilateral lung infiltrates. 02/06/2025 Patient seen and evaluated in room at bedside; She is resting comfortably in bed. She has no particular complaints today. She has a history of metastatic breast cancer, with osseous and brain metastasis. Vital signs reviewed and stable with temperature 97.9, pulse 96, respirations 16 and blood pressure 138/93; O2 saturation 93% Blood work is reviewed white count of 4.7, hemoglobin 8.4, hematocrit 27.2, and a platelet count of 67,000. Sodium 134, potassium 4.3, chloride 94, CO2 29, BUN 34, creatinine 0.93. Glucose is 220. Calcium is 8. - Brain MRI shows a significant interval worsening of the metastatic disease involving the right frontal cortex, and adjacent leptomeninges. There is now slight mass effect with slight shift of the midline structures to the left, secondary to increasing vasogenic edema in the right frontal and temporal lobes. Prognosis is poor 02/07/2025 Patient is seen and evaluated sitting up in bedside chair; complains of nausea Vital signs are reviewed, patient remains afebrile, pulse 78, respirations 16 and blood pressure 139/80 with O2 saturation 100% on 2 L - Patient has MRI of the brain completed which revealed same to rule worsening of metastatic disease involving right frontal cortex and adjustment leptomeninges -- Oncology on board; attempt was made to discuss CODE STATUS and further plan of care with patient's ; he is not available for discussion through the weekend - We will continue with current management - CODE STATUS and plan of care to be discussed with patient's family 02/08 This is a pleasant 69 years old female with metastatic breast cancer brain and diffuse osseous metastasis. Presents with A-fib and RVR. Also patient has pancytopenia MRI of the brain showing metastatic disease with midline shift and vasogenic edema. Patient awake and she knows she is not probably [place] and does not near but she is disoriented about the rest. She has some insight about her illness, however she does not look has capacity make medical decision Although she is able to eat by herself and she moves little bit from the bed to the commode. She is obese. She is not in distress due to pain. No specific complaint Hematology/oncology team yesterday tried to talk to the family about possible hospice with the which is still pending. 02/09 Patient remains somewhat confused most likely related to her brain metastatic disease with some midline shift and vasogenic edema, currently her progressive disease and overall advanced metastatic cancer. Oncology team recommended hospice care which looks up appropriate. Oncology team will have meeting with the tomorrow 02/10 Currently patient has some chest pain from her rib fracture but no dyspnea. No headache or new weakness or numbness She remains on Eliquis. Hemoglobin stable 9.9. Stable at 57 patient can be downgraded to general medical floor Objective - Vital Signs Vital signs: Vital Signs Temp 97.5 F L 02/09/25 03:14 Pulse 80 02/09/25 06:38 Resp 18 02/09/25 03:14 BP 150/102 02/09/25 03:14 Pulse Ox 95 02/09/25 03:14 FiO2 Intake & Output 02/08/25 02/09/25 02/09/25 18:59 06:59 18:59 Intake Total 458 295 Output Total 1350 1000 Balance -892 -705 Weight 72 kg 72 kg Intake: IV 20 Invasive Line 2 20 Oral 458 275 Output: Urine 1350 1000 Other: Voiding Method External Catheter External Catheter - Exam -GENERAL: The patient is alert and oriented x1-2, confused, not in any acute distress. Well developed, well nourished. Obese HEENT: Pupils are round and equally reacting to light. EOMI. No scleral icterus. No conjunctival pallor. Normocephalic, atraumatic. No pharyngeal erythema. No thyromegaly. CARDIOVASCULAR: S1 and S2 present. No murmurs, rubs, or gallops. PULMONARY: Chest is clear to auscultation, no wheezing , no crackles. ABDOMEN: Soft, nontender, nondistended, normoactive bowel sounds. No palpable organomegaly. MUSCULOSKELETAL: No joint swelling or deformity. EXTREMITIES: No cyanosis, clubbing, or pedal edema. NEUROLOGICAL: Gross neurological examination did not reveal any focal deficits. SKIN: No rashes. no petechiae. - Labs CBC & Chem 7: 02/09/25 08:23 02/07/25 06:45 Labs: Abnormal Lab Results - Last 24 Hours (Table) 02/08/25 02/08/25 02/08/25 Range/Units 11:17 16:07 19:52 RBC (4.10-5.20) 10*6/uL Hgb (12.0-15.0) g/dL Hct (37.2-46.3) % MCHC (32.0-37.0) g/dL Plt Count (140-440) 10*3/uL MPV (9.5-12.2) fL Immature Gran # (0.00-0.04) 10*3/uL Lymphocytes # (0.90-5.00) 10*3/uL Eosinophils # (0.04-0.35) 10*3/uL POC Glucose (mg/dL) 191 H 227 H 254 H (70-110) mg/dL 02/09/25 02/09/25 Range/Units 05:58 08:23 RBC 3.55 L (4.10-5.20) 10*6/uL Hgb 9.9 L (12.0-15.0) g/dL Hct 31.9 L (37.2-46.3) % MCHC 31.0 L (32.0-37.0) g/dL Plt Count 57 L (140-440) 10*3/uL MPV 9.1 L (9.5-12.2) fL Immature Gran # 0.67 H (0.00-0.04) 10*3/uL Lymphocytes # 0.55 L (0.90-5.00) 10*3/uL Eosinophils # 0.01 L (0.04-0.35) 10*3/uL POC Glucose (mg/dL) 184 H (70-110) mg/dL Assessment and Plan Assessment: 1. Atrial fibrillation with RVR; currently rate controlled - Cardiology on board and recommending to increase metoprolol to 50 mg twice daily; remains anticoagulated with Eliquis 5 mg twice daily 2. Exacerbation of diastolic congestive heart failure; patient is currently on IV Lasix; cardiology recommending to transition to home dose of Lasix 60 mg twice daily - Continue to monitor strict JOSE's, daily weights, low-salt and fluid restricted diet - Last echocardiogram completed on 10/24/2024; repeat is not recommended - currently she is almost euvolemic 3. Chest pain secondary to pathological right rib fracture and diffuse osseous metastasis. 4. Acute hypoxemic respiratory failure; patient remains on O2; titrate or wean as able. 5. Mild intermittent asthma/COPD; acute exacerbation; patient remains on Solu- Medrol 60 mg IV every 6 hours; DuoNeb nebulizer treatments 4 times daily and as needed; patient remains on home inhaler therapy with Symbicort. 6. Breast cancer S/P right-sided mastectomy in 2021. Diffuse osseous metastasis. with brain metastasis.mri showing midline shift and vasogenic edema hematology and oncology team are trying to talk to about possible hospice 7. Chronic pain, secondary to malignancy; continue with current pain regimen. 8. Hypertension; lisinopril 20 mg daily; metoprolol 50 mg twice daily; Lasix 60 mg twice daily. 9. History of hyperlipidemia; continue home dose of Lipitor 40 mg daily. 10. Insulin-dependent diabetes mellitus; patient is currently on Lantus 40 units subcu nightly; monitor Accu-Cheks before every meal and at bedtime with insulin sliding scale. 11. Gastroesophageal reflux disease; Protonix 40 mg daily. DVT prophylaxis; Eliquis CODE STATUS; full code
[2025-02-09 11:22] LABS: Glucose,Whole Blood 222 mg/dL (70-110)
[2025-02-09 17:10] LABS: Glucose,Whole Blood 236 mg/dL (70-110)
[2025-02-09 21:38] LABS: Glucose,Whole Blood 299 mg/dL (70-110)
[2025-02-10 07:10] LABS: Glucose,Whole Blood 122 mg/dL (70-110)
[2025-02-10 12:25] LABS: Glucose,Whole Blood 167 mg/dL (70-110)
[2025-02-10 17:11] LABS: Glucose,Whole Blood 167 mg/dL (70-110)
--- NOTE | 2025-02-10 18:26 | P.PN ---
Subjective Progress Note Date: 02/10/25 Family meeting held today with patient, spouse, and children Objective - Vital Signs Vital signs: Vital Signs Temp 97.9 F 02/10/25 12:27 Pulse 103 H 02/10/25 12:27 Resp 16 02/10/25 12:27 BP 146/81 02/10/25 12:27 Pulse Ox 98 02/10/25 12:27 FiO2 Intake & Output 02/09/25 02/10/25 02/10/25 18:59 06:59 18:59 Output Total 600 700 Balance -600 -700 Weight 72 kg Output: Urine 600 700 Other: Voiding Method External Catheter External Catheter External Catheter - Constitutional General appearance: Present: no acute distress, obese - EENT Eyes: Present: anicteric sclerae, EOMI ENT: Present: hearing grossly normal - Respiratory Details: breathing is even and unlabored - Cardiovascular Details: skin warm and dry - Musculoskeletal Musculoskeletal: Present: generalized weakness - Labs CBC & Chem 7: 02/09/25 08:23 02/07/25 06:45 Labs: Abnormal Lab Results - Last 24 Hours (Table) 02/09/25 02/09/25 02/10/25 Range/Units 17:08 21:35 07:08 POC Glucose (mg/dL) 236 H 299 H 122 H (70-110) mg/dL 02/10/25 Range/Units 12:24 POC Glucose (mg/dL) 167 H (70-110) mg/dL Assessment and Plan (1) Anemia Current Visit: Yes Status: Acute Priority: Medium Code(s): D64.9 - ANEMIA, UNSPECIFIED SNOMED Code(s): 043581497 (2) Thrombocytopenia Current Visit: Yes Status: Acute Priority: Medium Code(s): D69.6 - THROMBOCYTOPENIA, UNSPECIFIED SNOMED Code(s): 073708605 (3) Acute exacerbation of chronic obstructive pulmonary disease (COPD) Current Visit: Yes Status: Acute Priority: High Code(s): J44.1 - CHRONIC OBSTRUCTIVE PULMONARY DISEASE W (ACUTE) EXACERBATION SNOMED Code(s): 200915204 (4) Atrial fibrillation with rapid ventricular response Current Visit: Yes Status: Acute Priority: High Code(s): I48.91 - UNSPECIFIED ATRIAL FIBRILLATION SNOMED Code(s): 465594300914940 (5) Atypical chest pain Current Visit: Yes Status: Acute Priority: High Code(s): R07.89 - OTHER CHEST PAIN SNOMED Code(s): 049761163 (6) CHF (congestive heart failure) Current Visit: Yes Status: Acute Priority: High Code(s): I50.9 - HEART FAILURE, UNSPECIFIED SNOMED Code(s): 83503414 (7) Breast cancer Current Visit: No Status: Acute Priority: High Code(s): C50.919 - MALIGNANT NEOPLASM OF UNSP SITE OF UNSPECIFIED FEMALE BREAST SNOMED Code(s): 731978682 Plan: Metastatic breast cancer: -Oncology history as dictated in the HPI -August 18, 2024, CT of the right knee reporting unusual pattern she is sclerosis and lucency about both distal femoral and proximal tibial components, similar to 03/10/2024 imaging. Areas of periprosthetic osseous scalloping/erosion both anteriorly and posteriorly at the femoral component is similar to prior study as well, etiology unclear. Sequela of chronic infection versus underlying osseous metastatic disease. There was an interval development of a nondisplaced periprosthetic fracture along the anterior aspect of the tibia. Nuclear medicine bone scan 08/21/2024 did show diffuse uptake within the appendicular skeleton corresponding to CT findings. -Prior CT AP reported diffuse osseous metastatic disease. No greater than 1 cm lymph nodes noted to suggest intra-abdominal metastatic disease. Subacute fracture of the left 11th rib. Nodular contour to liver, possible cirrhosis. -MRI brain showed brain mets. Previously treated with decadron -Bone biopsy on 11/19/[address] [facility], biopsy was positive for metastatic breast cancer,ER/[place]+(92%,2%), HER2/CHRIS low (1+). -Completed RT to right knee/right shoulder during previous admit, however did not f/u outpt for brain RT -Repeat staging CT scans note diffuse osseous metastatic disease with brain MRI noting worsening brain metastasis with possible midline shift and vasogenic edema -She is currently already on high-dose steroids with methylprednisolone 60 mg IV every 6 hours -Per radiation oncology, she is not a candidate for palliative radiation as she would likely not derive any benefit -Due to progressive disease and declining performance status, I do believe she would best be served by hospice -Nursing spoke with spouse, will plan to meet with and pt Saturday to have goals of care conversation -Continue IV methylprednisolone Pain, related to malignancy: -Knee and shoulder pain-2/2 mets -Continue pain medications ordered -Bowel regimen in place Anemia, thrombocytopenia: -Pancytopenia noted during admission in 08/2024. Pancytopenia workup at that time showed no MGUS, iron studies were most consistent with inflammation. -Cytopenias felt likely to be related to bone metastasis. Also possible component of cirrhosis noted on CT A/P -On admit, hgb 8.5, MCV 89.0, plt 70,000. Subsequent CBC showed hgb 7.1, plt 67,000 -No reported episodes of acute bleeding -S/p 1 unit PRBCs -Iron studies consistent with anemia of inflammation -As long as there is no acute bleeding episodes, hgb shows appropriate response to transfusion, and plt are > 50,000, pt can continue on anticoagulation -Continue to monitor CBC A-fib with RVR, CHF exacerbation: -Anticoagulated with Eliquis -Continues lasix -Cardiology following Family meeting held today with Dr. Mendez, patient, spouse, and children Had detailed discussion per radiation oncology recs, pt is not a candidate for palliative radiation as she would likely not derive any benefit, and due to progressive disease and declining performance status, I do believe she would best be served by hospice. It was discussed that outpt care/treatment has been delayed for months due to patients inability to make appts and progressing weakness. At this time, we would recommend hospice. Pt and family were agreeable and would like to take pt home on hospice. Hospice consult placed All questions and concerns were addressed. We will remain available if there are any further questions or concerns
[2025-02-10 20:19] LABS: Glucose,Whole Blood 231 mg/dL (70-110)
--- NOTE | 2025-02-10 22:49 | P.PN ---
Subjective 69-year-old female, history of multiple medical problems including asthma/COPD, hypertension, hyperlipidemia, diabetes mellitus, atrial fibrillation, breast cancer, among other things. The patient has a history of metastatic breast carcinoma, with osseous mets, and brain mets. The patient is followed by Dr. Yancey in medical oncology, and Dr. Gutiérrez, from radiation oncology. The patient was seen in the emergency department, for severe right-sided chest pain, with shortness of breath. She was found to have atrial fibrillation with RVR. -She is currently on 1 L of oxygen. She is getting saline at 20 cc an hour. She appears in no acute distress. No respiratory distress. She is resting comfortably in bed. -Current labs showed a white count of 4.8, hemoglobin 8.1, hematocrit 27, and a platelet count of 66,000. Sodium 133, potassium 4.4, chlorides 96, CO2 30, BUN 26, and creatinine 1.08. Glucose is 320. - Chest x-ray shows diffuse bilateral lung infiltrates. 02/06/2025 Patient seen and evaluated in room at bedside; She is resting comfortably in bed. She has no particular complaints today. She has a history of metastatic breast cancer, with osseous and brain metastasis. Vital signs reviewed and stable with temperature 97.9, pulse 96, respirations 16 and blood pressure 138/93; O2 saturation 93% Blood work is reviewed white count of 4.7, hemoglobin 8.4, hematocrit 27.2, and a platelet count of 67,000. Sodium 134, potassium 4.3, chloride 94, CO2 29, BUN 34, creatinine 0.93. Glucose is 220. Calcium is 8. - Brain MRI shows a significant interval worsening of the metastatic disease involving the right frontal cortex, and adjacent leptomeninges. There is now slight mass effect with slight shift of the midline structures to the left, secondary to increasing vasogenic edema in the right frontal and temporal lobes. Prognosis is poor 02/07/2025 Patient is seen and evaluated sitting up in bedside chair; complains of nausea Vital signs are reviewed, patient remains afebrile, pulse 78, respirations 16 and blood pressure 139/80 with O2 saturation 100% on 2 L - Patient has MRI of the brain completed which revealed same to rule worsening of metastatic disease involving right frontal cortex and adjustment leptomeninges -- Oncology on board; attempt was made to discuss CODE STATUS and further plan of care with patient's ; he is not available for discussion through the weekend - We will continue with current management - CODE STATUS and plan of care to be discussed with patient's family 02/08 This is a pleasant 69 years old female with metastatic breast cancer brain and diffuse osseous metastasis. Presents with A-fib and RVR. Also patient has pancytopenia MRI of the brain showing metastatic disease with midline shift and vasogenic edema. Patient awake and she knows she is not probably [place] and does not near but she is disoriented about the rest. She has some insight about her illness, however she does not look has capacity make medical decision Although she is able to eat by herself and she moves little bit from the bed to the commode. She is obese. She is not in distress due to pain. No specific complaint Hematology/oncology team yesterday tried to talk to the family about possible hospice with the which is still pending. 02/09 Patient remains somewhat confused most likely related to her brain metastatic disease with some midline shift and vasogenic edema, currently her progressive disease and overall advanced metastatic cancer. Oncology team recommended hospice care which looks up appropriate. Oncology team will have meeting with the tomorrow 02/10 Currently patient has some chest pain from her rib fracture but no dyspnea. No headache or new weakness or numbness She remains on Eliquis. Hemoglobin stable 9.9. Stable at 57 patient can be downgraded to general medical floor 02/10 Patient clinically looks the same, overall not doing well confused all the time Today held admitting with oncology team and family member including spouse and children and they decided to proceed with hospice care which looks appropriate at this time other prognosis is overall poor Family agreed for the hospice consult. As per staff family/ is planning to meet and talk to hospice team tomorrow Objective - Vital Signs Vital signs: Vital Signs Temp 97.9 F 02/10/25 12:27 Pulse 92 02/10/25 15:18 Resp 16 02/10/25 12:27 BP 146/81 02/10/25 12:27 Pulse Ox 98 02/10/25 12:27 FiO2 Intake & Output 02/10/25 02/10/25 02/11/25 06:59 18:59 06:59 Output Total 700 1050 Balance -700 -1050 Output: Urine 700 1050 Other: Voiding Method External Catheter External Catheter - Exam -GENERAL: The patient is alert and oriented x1-2, confused, not in any acute distress. Well developed, well nourished. Obese HEENT: Pupils are round and equally reacting to light. EOMI. No scleral icterus. No conjunctival pallor. Normocephalic, atraumatic. No pharyngeal erythema. No thyromegaly. CARDIOVASCULAR: S1 and S2 present. No murmurs, rubs, or gallops. PULMONARY: Chest is clear to auscultation, no wheezing , no crackles. ABDOMEN: Soft, nontender, nondistended, normoactive bowel sounds. No palpable organomegaly. MUSCULOSKELETAL: No joint swelling or deformity. EXTREMITIES: No cyanosis, clubbing, or pedal edema. NEUROLOGICAL: Gross neurological examination did not reveal any focal deficits. SKIN: No rashes. no petechiae. - Labs CBC & Chem 7: 02/09/25 08:23 02/07/25 06:45 Labs: Abnormal Lab Results - Last 24 Hours (Table) 02/09/25 02/10/25 02/10/25 Range/Units 21:35 07:08 12:24 POC Glucose (mg/dL) 299 H 122 H 167 H (70-110) mg/dL 02/10/25 Range/Units 17:09 POC Glucose (mg/dL) 167 H (70-110) mg/dL Assessment and Plan Assessment: 1. Atrial fibrillation with RVR; currently rate controlled - Cardiology on board and recommending to increase metoprolol to 50 mg twice daily; remains anticoagulated with Eliquis 5 mg twice daily 2. Exacerbation of diastolic congestive heart failure; patient is currently on IV Lasix; cardiology recommending to transition to home dose of Lasix 60 mg twice daily - Continue to monitor strict JOSE's, daily weights, low-salt and fluid restricted diet - Last echocardiogram completed on 10/24/2024; repeat is not recommended - currently she is almost euvolemic 3. Chest pain secondary to pathological right rib fracture and diffuse osseous metastasis. 4. Acute hypoxemic respiratory failure; patient remains on O2; titrate or wean as able. 5. Mild intermittent asthma/COPD; acute exacerbation; patient remains on Solu- Medrol 60 mg IV every 6 hours; DuoNeb nebulizer treatments 4 times daily and as needed; patient remains on home inhaler therapy with Symbicort. 6. Breast cancer S/P right-sided mastectomy in 2021. Diffuse osseous metastasis. with brain metastasis.mri showing midline shift and vasogenic edema hematology and oncology team are trying to talk to about possible hospi ce -Metastatic to the brain with midline shift, family decided for hospice care 7. Chronic pain, secondary to malignancy; continue with current pain regimen. 8. Hypertension; lisinopril 20 mg daily; metoprolol 50 mg twice daily; Lasix 60 mg twice daily. 9. History of hyperlipidemia; continue home dose of Lipitor 40 mg daily. 10. Insulin-dependent diabetes mellitus; patient is currently on Lantus 40 units subcu nightly; monitor Accu-Cheks before every meal and at bedtime with insulin sliding scale. 11. Gastroesophageal reflux disease; Protonix 40 mg daily. DVT prophylaxis; Eliquis CODE STATUS; full code Oncology discussed the case with family who agreed to discussed the case with h [facility] team, consult for hospice team for information was placed
[2025-02-11 06:51] LABS: Glucose,Whole Blood 153 mg/dL (70-110)
[2025-02-11 12:00] LABS: Glucose,Whole Blood 327 mg/dL (70-110)
[2025-02-11 17:35] LABS: Glucose,Whole Blood 314 mg/dL (70-110)
[2025-02-11 20:03] LABS: Glucose,Whole Blood 311 mg/dL (70-110)
--- NOTE | 2025-02-11 21:07 | P.PN ---
Subjective 69-year-old female, history of multiple medical problems including asthma/COPD, hypertension, hyperlipidemia, diabetes mellitus, atrial fibrillation, breast cancer, among other things. The patient has a history of metastatic breast carcinoma, with osseous mets, and brain mets. The patient is followed by Dr. Yancey in medical oncology, and Dr. Gutiérrez, from radiation oncology. The patient was seen in the emergency department, for severe right-sided chest pain, with shortness of breath. She was found to have atrial fibrillation with RVR. -She is currently on 1 L of oxygen. She is getting saline at 20 cc an hour. She appears in no acute distress. No respiratory distress. She is resting comfortably in bed. -Current labs showed a white count of 4.8, hemoglobin 8.1, hematocrit 27, and a platelet count of 66,000. Sodium 133, potassium 4.4, chlorides 96, CO2 30, BUN 26, and creatinine 1.08. Glucose is 320. - Chest x-ray shows diffuse bilateral lung infiltrates. 02/06/2025 Patient seen and evaluated in room at bedside; She is resting comfortably in bed. She has no particular complaints today. She has a history of metastatic breast cancer, with osseous and brain metastasis. Vital signs reviewed and stable with temperature 97.9, pulse 96, respirations 16 and blood pressure 138/93; O2 saturation 93% Blood work is reviewed white count of 4.7, hemoglobin 8.4, hematocrit 27.2, and a platelet count of 67,000. Sodium 134, potassium 4.3, chloride 94, CO2 29, BUN 34, creatinine 0.93. Glucose is 220. Calcium is 8. - Brain MRI shows a significant interval worsening of the metastatic disease involving the right frontal cortex, and adjacent leptomeninges. There is now slight mass effect with slight shift of the midline structures to the left, secondary to increasing vasogenic edema in the right frontal and temporal lobes. Prognosis is poor 02/07/2025 Patient is seen and evaluated sitting up in bedside chair; complains of nausea Vital signs are reviewed, patient remains afebrile, pulse 78, respirations 16 and blood pressure 139/80 with O2 saturation 100% on 2 L - Patient has MRI of the brain completed which revealed same to rule worsening of metastatic disease involving right frontal cortex and adjustment leptomeninges -- Oncology on board; attempt was made to discuss CODE STATUS and further plan of care with patient's ; he is not available for discussion through the weekend - We will continue with current management - CODE STATUS and plan of care to be discussed with patient's family 02/08 This is a pleasant 69 years old female with metastatic breast cancer brain and diffuse osseous metastasis. Presents with A-fib and RVR. Also patient has pancytopenia MRI of the brain showing metastatic disease with midline shift and vasogenic edema. Patient awake and she knows she is not probably [place] and does not near but she is disoriented about the rest. She has some insight about her illness, however she does not look has capacity make medical decision Although she is able to eat by herself and she moves little bit from the bed to the commode. She is obese. She is not in distress due to pain. No specific complaint Hematology/oncology team yesterday tried to talk to the family about possible hospice with the which is still pending. 02/09 Patient remains somewhat confused most likely related to her brain metastatic disease with some midline shift and vasogenic edema, currently her progressive disease and overall advanced metastatic cancer. Oncology team recommended hospice care which looks up appropriate. Oncology team will have meeting with the tomorrow 02/10 Currently patient has some chest pain from her rib fracture but no dyspnea. No headache or new weakness or numbness She remains on Eliquis. Hemoglobin stable 9.9. Stable at 57 patient can be downgraded to general medical floor 02/10 Patient clinically looks the same, overall not doing well confused all the time Today held admitting with oncology team and family member including spouse and children and they decided to proceed with hospice care which looks appropriate at this time other prognosis is overall poor Family agreed for the hospice consult. As per staff family/ is planning to meet and talk to hospice team tomorrow 02/11 Patient clinically looks the same although its slightly more alert and awake today, Discussed with the staff. Patient is going home with hospice care tomorrow, hospice bed and oxygen will be delivered to her home tomorrow and then she can be discharged Objective - Vital Signs Vital signs: Vital Signs Temp 97.8 F 02/11/25 13:08 Pulse 95 02/11/25 13:08 Resp 16 02/11/25 13:08 BP 110/74 02/11/25 13:08 Pulse Ox 98 02/11/25 13:08 FiO2 Intake & Output 02/10/25 02/11/25 02/11/25 18:59 06:59 18:59 Intake Total 480 Output Total 1050 2200 Balance -1050 -2200 480 Intake: Oral 480 Output: Urine 1050 2200 Other: Voiding Method External Catheter Diaper Diaper External Catheter External Catheter - Exam -GENERAL: The patient is alert and oriented x1-2, confused, not in any acute distress. Well developed, well nourished. Obese HEENT: Pupils are round and equally reacting to light. EOMI. No scleral icterus. No conjunctival pallor. Normocephalic, atraumatic. No pharyngeal erythema. No thyromegaly. CARDIOVASCULAR: S1 and S2 present. No murmurs, rubs, or gallops. PULMONARY: Chest is clear to auscultation, no wheezing , no crackles. ABDOMEN: Soft, nontender, nondistended, normoactive bowel sounds. No palpable organomegaly. MUSCULOSKELETAL: No joint swelling or deformity. EXTREMITIES: No cyanosis, clubbing, or pedal edema. NEUROLOGICAL: Gross neurological examination did not reveal any focal deficits. SKIN: No rashes. no petechiae. - Labs CBC & Chem 7: 02/09/25 08:23 02/07/25 06:45 Labs: Abnormal Lab Results - Last 24 Hours (Table) 02/10/25 02/10/25 02/11/25 Range/Units 17:09 20:16 06:50 POC Glucose (mg/dL) 167 H 231 H 153 H (70-110) mg/dL 02/11/25 Range/Units 11:58 POC Glucose (mg/dL) 327 H (70-110) mg/dL Assessment and Plan Assessment: 1. Atrial fibrillation with RVR; currently rate controlled - Cardiology on board and recommending to increase metoprolol to 50 mg twice daily; remains anticoagulated with Eliquis 5 mg twice daily 2. Exacerbation of diastolic congestive heart failure; patient is currently on IV Lasix; cardiology recommending to transition to home dose of Lasix 60 mg twice daily - Continue to monitor strict JOSE's, daily weights, low-salt and fluid restricted diet - Last echocardiogram completed on 10/24/2024; repeat is not recommended - currently she is almost euvolemic 3. Chest pain secondary to pathological right rib fracture and diffuse osseous metastasis. 4. Acute hypoxemic respiratory failure; patient remains on O2; titrate or wean as able. 5. Mild intermittent asthma/COPD; acute exacerbation; patient remains on Solu- Medrol 60 mg IV every 6 hours; DuoNeb nebulizer treatments 4 times daily and as needed; patient remains on home inhaler therapy with Symbicort. 6. Breast cancer S/P right-sided mastectomy in 2021. Diffuse osseous metastasis. with brain metastasis.mri showing midline shift and vasogenic edema hematology and oncology team are trying to talk to about possible hospice -Metastatic to the brain with midline shift, family decided for hospice care 7. Chronic pain, secondary to malignancy; continue with current pain regimen. 8. Hypertension; lisinopril 20 mg daily; metoprolol 50 mg twice daily; Lasix 60 mg twice daily. 9. History of hyperlipidemia; continue home dose of Lipitor 40 mg daily. 10. Insulin-dependent diabetes mellitus; patient is currently on Lantus 40 units subcu nightly; monitor Accu-Cheks before every meal and at bedtime with insulin sliding scale. 11. Gastroesophageal reflux disease; Protonix 40 mg daily. DVT prophylaxis; Eliquis CODE STATUS; full code Oncology discussed the case with family who agreed to discussed the case with hospice team, consult for hospice team for information was placed Disposition: Home tomorrow with hospice care Prognosis is very poor
[2025-02-12 01:22] VITALS: RESP 16
[2025-02-12 06:51] LABS: Glucose,Whole Blood 207 mg/dL (70-110)
[2025-02-12 07:23] VITALS: TEMP 98.1
[2025-02-12 12:05] LABS: Glucose,Whole Blood 345 mg/dL (70-110)
[2025-02-12 12:26] VITALS: BP 132/83
[2025-02-12 14:55] VITALS: PULSE 100
== END 2025-02-12 16:21 | disposition hospice, home (50) | DRG 291 ==
LOC: EC 15:16 → 3SCARD 16:46 → 5NMEDONC 02-09 13:08
PROVIDERS: ADMIT Hospitalist; ATTEND Hospitalist
DX: I11.0 Hypertensive heart disease with heart failure (principal); G93.6 Cerebral edema; I50.33 Acute on chronic diastolic (congestive) heart failure; J96.01 Acute respiratory failure with hypoxia; C79.31 Secondary malignant neoplasm of brain; C79.51 Secondary malignant neoplasm of bone; M84.58XA Pathological fracture in neoplastic disease, other specified site, initial encounter for fracture; J44.1 Chronic obstructive pulmonary disease with (acute) exacerbation; E11.9 Type 2 diabetes mellitus without complications; D64.9 Anemia, unspecified; Z51.5 Encounter for palliative care; Z66 Do not resuscitate; D69.6 Thrombocytopenia, unspecified; E66.9 Obesity, unspecified; I34.0 Nonrheumatic mitral (valve) insufficiency; I48.19 Other persistent atrial fibrillation; J45.21 Mild intermittent asthma with (acute) exacerbation; Z79.4 Long term (current) use of insulin; G89.29 Other chronic pain; E78.5 Hyperlipidemia, unspecified; K21.9 Gastro-esophageal reflux disease without esophagitis; M19.90 Unspecified osteoarthritis, unspecified site; Z68.36 Body mass index [BMI] 36.0-36.9, adult; Z90.11 Acquired absence of right breast and nipple; Z87.891 Personal history of nicotine dependence; Z85.3 Personal history of malignant neoplasm of breast; Z92.3 Personal history of irradiation; Z79.899 Other long term (current) drug therapy; Z79.51 Long term (current) use of inhaled steroids; Z79.01 Long term (current) use of anticoagulants; Z17.32 Human epidermal growth factor receptor 2 negative status; Z17.21 Progesterone receptor positive status
CPT/HCPCS: 36415; 70553; 71045; 71046; 71260; 74177; 80048; 80053; 82607; 82728; 82747; 83036; 83540; 83550; 83690; 83735; 83880; 84100; 84484; 85025; 85610; 85730; 86850; 86900; 86901; 86920; 93005; 94640; 94760; 96365; 96375; 99291